=== PATIENT | male | born 1985 | race Caucasian/White ===

== ENCOUNTER 2023-09-15 23:35 | Emergency (ER) | payer OTHER, SELFPAY ==
[2023-09-15 23:37] VITALS: BP 126/78; PULSE 68; TEMP 36.9; O2SAT 94; BMI 32.8
--- NOTE | 2023-09-16 00:04 | ECG_ITS ---
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
[2023-09-16 00:17] VITALS: PULSE 79
[2023-09-16 00:18] VITALS: PULSE 62
[2023-09-16 00:33] LABS: Basophils Absolute Auto 0.1 10^3/uL (0.0-0.1); Basophils Percent Auto 0.6 % (0.2-2.0); Eosinophils Absolute Auto 0.1 10^3/uL (0.0-0.7); Eosinophils Percent Auto 1.4 % (0.9-7.0); Hematocrit 42.2 % (42.0-54.0); Hemoglobin 14.9 g/dL (14.0-18.0); Immature Granulocytes Abs Auto 0.02 10^3/uL (0.00-0.03); Immature Granulocytes Pct Auto 0.3 % (0.0-0.5); Lymphocytes Absolute Auto 3.2 10^3/uL (1.2-3.8); Lymphocytes Percent Auto 40.5 % (20.5-60.0); Mean Corpuscular HGB Conc 35.3 g/dL (29.9-35.2); Mean Corpuscular Hemoglobin 29.2 pg (25.9-34.0); Mean Corpuscular Volume 82.7 fL (80.0-94.0); Mean Platelet Volume 8.4 fL (9.5-13.5); Monocytes Absolute Auto 0.7 10^3/uL (0.3-0.8); Monocytes Percent Auto 8.8 % (1.7-12.0); Neutrophils Absolute Auto 3.9 10^3/uL (1.4-6.5); Neutrophils Percent Auto 48.4 % (43.0-75.0); Platelet Count 310 10^3/uL (150-450); Red Cell Distribution Width 13.3 % (11.0-15.0)
[2023-09-16 00:51] LABS: Alanine Aminotransferase 244 U/L (16-63); Albumin Globulin Ratio 1.1; Albumin Level 3.8 g/dL (3.4-5.0); Alkaline Phosphatase 122 U/L (46-116); Anion Gap 13.4; Aspartate Amino Transferase 65 U/L (15-37); Bilirubin Total 0.3 mg/dL (0.2-1.0); Calcium 8.8 mg/dL (8.5-10.1); Carbon Dioxide 24.2 mmol/L (21.0-32.0); Chloride 104 mmol/L (98-107); Estimated GFR (African America >60 (>=60); Estimated GFR (Non-African Ame >60 (>=60); Ethanol 168 mg/dL; Globulin 3.5 g/dL; Glucose 94 mg/dL (74-106); Potassium 3.6 mmol/L (3.5-5.1); Sodium 138 mmol/L (136-145); Total Protein 7.3 g/dL (6.4-8.2)
--- NOTE | 2023-09-16 00:52 | ED_ITS ---
HPI - Alcohol General Chief Complaint: Alcohol Stated Complaint: MEDICAL CLEARANCE Time Seen by Provider: 09/16/23 00:00 Source: patient Mode of arrival: ambulance History of Present Illness HPI narrative: This 38-year-old male is brought to the emergency department by EMS. The patient has been at [facility] for the past 2 weeks for alcohol detox. He states that earlier today he decided that he just wanted to drink and left the detox facility. He was able to obtain a bottle of vodka and drink the vodka, became intoxicated and wandered into a jail nearby the [facility]. The police and EMS were called at that time and he was brought to the emergency department. He denies any injury. He states he just wanted to drink alcohol today. We did contact the facility and he is not able to return to the facility for 7 days after leaving AGAINST MEDICAL ADVICE or eloping from the program. When he heard this he became tearful and anxious stating he does not know what he is going to do. He is from the [facility]. I asked him if he was told when he checked into the facility that if he left AGAINST MEDICAL ADVICE or eloped if they told him he would not be able to come back for 7 days states that he does not know what they told him at that time because he was intoxicated then as well. Related Data Allergies Allergy/AdvReac Type Severity Reaction Status Date / Time No Known Drug Allergies Allergy Verified 09/15/23 23:37 Review of Systems ROS Status of ROS 10 or more systems reviewed and unremark able except as noted in history and below Exam Narrative Exam Narrative: Vital signs and Nursing Notes reviewed: Patient is afebrile with a normal pulse, normal blood pressure, he is not hypoxic with pulse ox of 94% on room air General: Awake, alert, intoxicated but cooperative male, no respiratory distress HEENT: Normocephalic atraumatic, mucous membranes are moist and pink, eyes are clear, normal conjunctiva, vision is grossly intact Neck: Supple, no meningeal signs, no anterior or posterior cervical lymphadenopathy Chest: Lungs are clear to auscultation with good air entry, there is no wheezing rhonchi or rales appreciated no accessory muscle use, patient is speaking in complete sentences-no chest wall tenderness to palpation CVS: Regular rate and rhythm S1-S2, no murmurs rubs or gallops, pulses are brisk and equal bilaterally ABD: Soft, nondistended, nontender, no rebound guarding or rigidity, bowel sounds are normal, no pulsatile masses appreciated Extremities: Moving all extremities, no lower extremity tenderness or swelling noted, negative Homans' sign, pulses are brisk and equal bilaterally Skin: Normal in appearance without rash,pallor, petechiae or purpura Neuro: No focal deficits, intoxicated without signs of alcohol withdrawal Psych: Tearful, anxious Constitutional Vital Signs, click to edit/add: Last Vital Signs Temp 98.4 F 09/15/23 23:37 Pulse 79 09/16/23 00:17 Resp 14 09/16/23 03:28 BP 126/78 09/15/23 23:37 Pulse Ox 94 L 09/15/23 23:37 O2 Del Method Room Air 09/15/23 23:37 Course Vital Signs Vital signs: Vital Signs Temperature 98.4 F 09/15/23 23:37 Pulse Rate 68 09/15/23 23:37 Respiratory Rate 16 09/15/23 23:37 Blood Pressure 126/78 09/15/23 23:37 Pulse Oximetry 94 L 09/15/23 23:37 Oxygen Delivery Method Room Air 09/15/23 23:37 Temperature 98.4 F 09/15/23 23:37 Pulse Rate 79 09/16/23 00:17 Respiratory Rate 14 09/16/23 03:28 Blood Pressure 126/78 09/15/23 23:37 Pulse Oximetry 94 L 09/15/23 23:37 Oxygen Delivery Method Room Air 09/15/23 23:37 MDM - Alcohol MDM Narrative Medical decision making narrative: This 38-year-old male is brought to the emergency department by EMS after he wandered into a jail adjacent to the [facility] unit where he was receiving outpatient treatment for alcohol use/dependence. The patient has been there for 2 weeks but today decided he wanted to drink and left the facility, obtained vodka, became intoxicated and wandered into a different facility. We did contact the facility where he was staying and were informed that he could not return there for 7 days after leaving AMA or eloping. He is tearful and intoxicated upon arrival. His vital signs are stable. Physical exam is benign. EKG done upon arrival was a sinus rhythm at 62 bpm. CIWA protocol was enacted. Routine labs are ordered and are reviewed. He has a normal white count and hemoglobin. His electrolytes are normal. He does have elevated transaminases likely related to his alcohol use. Alcohol is 168. We contacted a different drug and alcohol treatment center for possible transfer to this facility and will attempt to try to find him another facility for his outpatient detox. His information was faxed to [facility] and they are reviewing it for consideration for transfer. Lab Data Attestation: I reviewed the patient's lab results. Labs: Lab Results 09/16/23 Range/Units 00:20 WBC 8.0 (4.0-11.0) 10^3/uL RBC 5.10 (4.70-6.10) 10^6/uL Hgb 14.9 (14.0-18.0) g/dL Hct 42.2 (42.0-54.0) % MCV 82.7 (80.0-94.0) fL MCH 29.2 (25.9-34.0) pg MCHC 35.3 H (29.9-35.2) g/dL RDW 13.3 (11.0-15.0) % Plt Count 310 (150-450) 10^3/uL MPV 8.4 L (9.5-13.5) fL Neut % (Auto) 48.4 (43.0-75.0) % Lymph % (Auto) 40.5 (20.5-60.0) % [place] % (Auto) 8.8 (1.7-12.0) % Eos % (Auto) 1.4 (0.9-7.0) % Baso % (Auto) 0.6 (0.2-2.0) % Neut # (Auto) 3.9 (1.4-6.5) 10^3/uL Lymph # (Auto) 3.2 (1.2-3.8) 10^3/uL [place] # (Auto) 0.7 (0.3-0.8) 10^3/uL Eos # (Auto) 0.1 (0.0-0.7) 10^3/uL Baso # (Auto) 0.1 (0.0-0.1) 10^3/uL Abs Immat Gran (auto) 0.02 (0.00-0.03) 10^3/uL Imm/Tot Granulo (auto) 0.3 (0.0-0.5) % Sodium 138 (136-145) mmol/L Potassium 3.6 (3.5-5.1) mmol/L Chloride 104 (98-107) mmol/L Carbon Dioxide 24.2 (21.0-32.0) mmol/L Anion Gap 13.4 BUN 11.0 (7.0-18.0) mg/dL Creatinine 1.22 (0.70-1.30) mg/dL Est GFR ( Amer) >60 (>=60) Est GFR (Non-Af Amer) >60 (>=60) BUN/Creatinine Ratio 9.0 Glucose 94 (74-106) mg/dL Calcium 8.8 (8.5-10.1) mg/dL Total Bilirubin 0.3 (0.2-1.0) mg/dL AST 65 H (15-37) U/L ALT 244 H (16-63) U/L Alkaline Phosphatase 122 H (46-116) U/L Total Protein 7.3 (6.4-8.2) g/dL Albumin 3.8 (3.4-5.0) g/dL Globulin 3.5 g/dL Albumin/Globulin Ratio 1.1 Ethanol Quant 168 mg/dL ECG Data Attestation: I personally reviewed and interpreted this ECG as follows: (Sinus rhythm at 62 bpm, normal axis, normal intervals, no acute ST segment elevation or T wave inversion) Discharge Plan Discharge Chief Complaint: Alcohol Clinical Impression: Alcoholic intoxication, Elevated liver enzymes Patient Disposition: Still a Patient Print Language: Cymraes Referrals: Physician,Non-Staff, MD [Primary Care Provider] - 1 week
[2023-09-16 05:19] VITALS: BP 125/72; O2SAT 99
[2023-09-16 05:27] VITALS: PULSE 73; O2SAT 99
[2023-09-16] MEDS: LORAZEPAM 0.5 MG TABLET 1 MG PO (05:54)
--- NOTE | 2023-09-16 07:26 | PC.NURSE ---
Spoke to Angella, at [facility], regarding patient. Angella states if [facility] declines patient, they would be able to assist with placement. Facesheet sent
--- NOTE | 2023-09-16 09:46 | PC.NURSE ---
[facility] called for update. staff states they are waiting for the nursing care attendant to evaluate the case-she arrives to work at 10am
[2023-09-16] MEDS: IBUPROFEN 400 MG TABLET 800 MG PO (10:55)
[2023-09-16] MEDS: BUSPIRONE HCL 15 MG TABLET PO (11:17)
[2023-09-16] MEDS: FLUOXETINE HCL 20 MG CAPSULE 40 MG PO (11:17)
--- NOTE | 2023-09-16 14:47 | PC.NURSE ---
patient accepted by [facility] in [place], . transport scheduled for 7pm
--- NOTE | 2023-09-16 14:51 | ED.ALCOHOL1 ---
HPI - Alcohol General Chief Complaint: Alcohol Stated Complaint: MEDICAL CLEARANCE Time Seen by Provider: 09/16/23 00:00 Source: patient Mode of arrival: ambulance History of Present Illness HPI narrative: The patient was initially seen by Dr. Meier and signed out to me after discussing the case with him thoroughly. Please see his full history and physical exam. MD complaint: Reports alcohol intoxication, alcohol dependence and desires rehab Related Data Allergies Allergy/AdvReac Type Severity Reaction Status Date / Time No Known Drug Allergies Allergy Verified 09/15/23 23:37 Exam Constitutional Vital Signs, click to edit/add: Last Vital Signs Temp 98.4 F 09/15/23 23:37 Pulse 73 09/16/23 05:27 Resp 16 09/16/23 05:27 BP 125/72 09/16/23 05:19 Pulse Ox 99 09/16/23 05:27 O2 Del Method Room Air 09/15/23 23:37 Course Vital Signs Vital signs: Vital Signs Temperature 98.4 F 09/15/23 23:37 Pulse Rate 68 09/15/23 23:37 Respiratory Rate 16 09/15/23 23:37 Blood Pressure 126/78 09/15/23 23:37 Pulse Oximetry 94 L 09/15/23 23:37 Oxygen Delivery Method Room Air 09/15/23 23:37 Temperature 98.4 F 09/15/23 23:37 Pulse Rate 73 09/16/23 05:27 Respiratory Rate 16 09/16/23 05:27 Blood Pressure 125/72 09/16/23 05:19 Pulse Oximetry 99 09/16/23 05:27 Oxygen Delivery Method Room Air 09/15/23 23:37 MDM - Alcohol MDM Narrative Medical decision making narrative: The patient has been observed here and he is awake and alert and ambulatory and has not eaten meals. We have made attempts at getting him into another alcohol treatment center and we appear to have been successful in that regard. He is able to be discharged from the emergency department. Lab Data Labs: Lab Results 09/16/23 Range/Units 00:20 WBC 8.0 (4.0-11.0) 10^3/uL RBC 5.10 (4.70-6.10) 10^6/uL Hgb 14.9 (14.0-18.0) g/dL Hct 42.2 (42.0-54.0) % MCV 82.7 (80.0-94.0) fL MCH 29.2 (25.9-34.0) pg MCHC 35.3 H (29.9-35.2) g/dL RDW 13.3 (11.0-15.0) % Plt Count 310 (150-450) 10^3/uL MPV 8.4 L (9.5-13.5) fL Neut % (Auto) 48.4 (43.0-75.0) % Lymph % (Auto) 40.5 (20.5-60.0) % [place] % (Auto) 8.8 (1.7-12.0) % Eos % (Auto) 1.4 (0.9-7.0) % Baso % (Auto) 0.6 (0.2-2.0) % Neut # (Auto) 3.9 (1.4-6.5) 10^3/uL Lymph # (Auto) 3.2 (1.2-3.8) 10^3/uL [place] # (Auto) 0.7 (0.3-0.8) 10^3/uL Eos # (Auto) 0.1 (0.0-0.7) 10^3/uL Baso # (Auto) 0.1 (0.0-0.1) 10^3/uL Abs Immat Gran (auto) 0.02 (0.00-0.03) 10^3/uL Imm/Tot Granulo (auto) 0.3 (0.0-0.5) % Sodium 138 (136-145) mmol/L Potassium 3.6 (3.5-5.1) mmol/L Chloride 104 (98-107) mmol/L Carbon Dioxide 24.2 (21.0-32.0) mmol/L Anion Gap 13.4 BUN 11.0 (7.0-18.0) mg/dL Creatinine 1.22 (0.70-1.30) mg/dL Est GFR ( Amer) >60 (>=60) Est GFR (Non-Af Amer) >60 (>=60) BUN/Creatinine Ratio 9.0 Glucose 94 (74-106) mg/dL Calcium 8.8 (8.5-10.1) mg/dL Total Bilirubin 0.3 (0.2-1.0) mg/dL AST 65 H (15-37) U/L ALT 244 H (16-63) U/L Alkaline Phosphatase 122 H (46-116) U/L Total Protein 7.3 (6.4-8.2) g/dL Albumin 3.8 (3.4-5.0) g/dL Globulin 3.5 g/dL Albumin/Globulin Ratio 1.1 Ethanol Quant 168 mg/dL Discharge Plan Discharge Stand Alone Forms: Portal Instructions Chief Complaint: Alcohol Clinical Impression: Alcoholic intoxication, Elevated liver enzymes Patient Disposition: Home, Self-Care Time of Disposition Decision: 14:50 Condition: Good Mode of Transportation: Private Vehicle Print Language: Frisian Instructions: Alcohol Intoxication (ED) Referrals: Physician,Non-Staff, MD [Primary Care Provider] - 1 week
== END 2023-09-16 15:12 | disposition home or self-care (01) ==
PROVIDERS: Emergency Medicine; Emergency Provider Emergency Medicine
DX: F10.129 Alcohol abuse with intoxication, unspecified (principal); Y90.6 Blood alcohol level of 120-199 mg/100 ml; R74.8 Abnormal levels of other serum enzymes
CPT/HCPCS: 36415; 80053; 80320; 85025; 93005; 99284

== ENCOUNTER 2023-09-18 00:04 | Emergency (ER) | payer OTHER, SELFPAY ==
[2023-09-18 00:06] VITALS: BP 117/77
--- NOTE | 2023-09-18 00:15 | ED_ITS ---
HPI - Alcohol General Chief Complaint: Psychiatric Symptoms Stated Complaint: suicidal Time Seen by Provider: 09/18/23 00:14 History of Present Illness HPI narrative: patient is an alcoholic. Was reportedly suppose to go to a detox facility in [place] . He was a legends but decided to drink alcohol. He is now brought here by Police and Squad. Police state he walked up to them and complained of chest pain. Squad states he told them he wanted to . No thoughts of harming anyone else. Now that he is here he is awake and making eye contact but not communicating verbally. Will look at you when questions are ask but will not make any attempt to answer. Related Data Allergies Allergy/AdvReac Type Severity Reaction Status Date / Time No Known Drug Allergies Allergy Verified 09/15/23 23:37 Review of Systems ROS Status of ROS unobtainable due to mental status Exam Constitutional Vital Signs, click to edit/add: Last Vital Signs Temp 98.1 F 09/18/23 00:32 Pulse 58 L 09/18/23 00:32 Resp 18 09/18/23 00:32 BP 117/77 09/18/23 00:32 Pulse Ox 94 L 09/18/23 00:32 O2 Del Method Room Air 09/18/23 00:32 Common normals: no apparent distress, average body habitus, healthy appearing, alert and well nourished Eye Common normals: EOMs intact bilaterally and conjunctivae normal Respiratory Common normals: normal respiratory effort, no retractions, no use of accessory muscles and clear to auscultation bilaterally Cardio Common normals: regular rate, regular rhythm, S1 normal heart sound and S2 normal heart sound GI Common normals: Normal to inspection, nondistended, normoactive bowel sounds present, soft to palpation and non-tender Extremity Common normals: normal to inspection Neuro Sensorium/orientation: awake and alert Course Vital Signs Vital signs: Vital Signs Temperature 98.1 F 09/18/23 00:32 Pulse Rate 58 L 09/18/23 00:32 Respiratory Rate 18 09/18/23 00:32 Blood Pressure 117/77 09/18/23 00:32 Pulse Oximetry 94 L 09/18/23 00:32 Oxygen Delivery Method Room Air 09/18/23 00:32 Temperature 98.1 F 09/18/23 00:32 Pulse Rate 58 L 09/18/23 00:32 Respiratory Rate 18 09/18/23 00:32 Blood Pressure 117/77 09/18/23 00:32 Pulse Oximetry 94 L 09/18/23 00:32 Oxygen Delivery Method Room Air 09/18/23 00:32 MDM - Alcohol MDM Narrative Medical decision making narrative: patient arrived via police and Squad. Per [facility] personnel he reported that he wanted to . Police states he told them he had chest pain. On arrival to the department he was awake and making eye contact but did not speak . Later he did start talking to nursing and informed nursing he wanted to kill himself. Lab demonstrated elevated LFTs related to his history of alcohol abuse and ETOH level 212. troponin neg. Cxray without acute findings. Patient has remained cooperative. No signs of alcohol withdrawal. We are waiting until 8AM to have mental health talk to him. Care transferred to Dr Hurd at change of shift Lab Data Labs: Lab Results 09/18/23 09/18/23 Range/Units 01:00 03:32 WBC 7.2 (4.0-11.0) 10^3/uL RBC 5.36 (4.70-6.10) 10^6/uL Hgb 15.6 (14.0-18.0) g/dL Hct 44.6 (42.0-54.0) % MCV 83.2 (80.0-94.0) fL MCH 29.1 (25.9-34.0) pg MCHC 35.0 (29.9-35.2) g/dL RDW 13.2 (11.0-15.0) % Plt Count 321 (150-450) 10^3/uL MPV 8.3 L (9.5-13.5) fL Neut % (Auto) 48.3 (43.0-75.0) % Lymph % (Auto) 41.0 (20.5-60.0) % Person % (Auto) 8.0 (1.7-12.0) % Eos % (Auto) 1.8 (0.9-7.0) % Baso % (Auto) 0.6 (0.2-2.0) % Neut # (Auto) 3.5 (1.4-6.5) 10^3/uL Lymph # (Auto) 3.0 (1.2-3.8) 10^3/uL Person # (Auto) 0.6 (0.3-0.8) 10^3/uL Eos # (Auto) 0.1 (0.0-0.7) 10^3/uL Baso # (Auto) 0.0 (0.0-0.1) 10^3/uL Abs Immat Gran (auto) 0.02 (0.00-0.03) 10^3/uL Imm/Tot Granulo (auto) 0.3 (0.0-0.5) % Sodium 137 (136-145) mmol/L Potassium 3.9 (3.5-5.1) mmol/L Chloride 104 (98-107) mmol/L Carbon Dioxide 23.7 (21.0-32.0) mmol/L Anion Gap 13.2 BUN 12.0 (7.0-18.0) mg/dL Creatinine 1.16 (0.70-1.30) mg/dL Est GFR ( Amer) >60 (>=60) Est GFR (Non-Af Amer) >60 (>=60) BUN/Creatinine Ratio 10.3 Glucose 120 H (74-106) mg/dL Calcium 8.7 (8.5-10.1) mg/dL Total Bilirubin 0.4 (0.2-1.0) mg/dL AST 51 H (15-37) U/L ALT 175 H (16-63) U/L Alkaline Phosphatase 136 H (46-116) U/L Troponin I High Sens <4.0 L (4.0-76.1) pg/mL Total Protein 7.7 (6.4-8.2) g/dL Albumin 3.8 (3.4-5.0) g/dL Globulin 3.9 g/dL Albumin/Globulin Ratio 1.0 Salicylates <2.8 (<=19.9) mg/dL Urine Opiates Screen Negative (NEGATIVE) Ur Buprenorphine Scrn Negative (NEGATIVE) Ur Oxycodone Screen Negative (NEGATIVE) Urine Methadone Screen Negative (NEGATIVE) Acetaminophen <2.0 L (10.0-30.0) ug/mL Ur Barbiturates Screen Negative (NEGATIVE) U Tricyclic Antidepress Negative (NEGATIVE) Ur Phencyclidine Scrn Negative (NEGATIVE) Ur Amphetamines Screen Negative (NEGATIVE) U Methamphetamines Scrn Negative (NEGATIVE) U Benzodiazepines Scrn Negative (NEGATIVE) Urine Cocaine Screen Negative (NEGATIVE) U Cannabinoids Screen Negative (NEGATIVE) Ethanol Quant 212 mg/dL Imaging Data Chest x-ray: Radiologist's impression: ITS Impressions Chest X-Ray 09/18/23 00:19 Impression: No acute cardiopulmonary process. Electronically authenticated by: UMANG DAVENPORT Date: 09/18/2023 01:00 Discharge Plan Discharge Chief Complaint: Psychiatric Symptoms Clinical Impression: Alcoholic intoxication, Suicidal ideation Patient Disposition: Still a Patient Print Language: Andorran Referrals: Physician,Non-Staff, MD [Primary Care Provider] - 1 week
--- OUTSIDE RECORDS SUMMARY | 2023-09-18 00:18 | XMS_ITS | CCD ---
Author Organization [facility] Care Team Providers Care Baker Paint Name Role Phone No, Physician Primary Care Provider Unavailabl e NO, PHYSICIAN Primary Care Unavailable KAYLA FERNANDEZ Attending Unava ilable Unavailable Primary Care Provider UnavailMARLENA Jackson Attending Unavailable NO, PHYSICIAN Primary Care Unavailable JUAN MIGUEL ACSTILLO Admitting Unavailable NO, PHYSICIAN Primary Care Unavailable HALINA BATISTA Attending Unavail able NO, PHYSICIAN Primary Care Unavailable Physician, No Pcp Primary Care Provider Unavaila ble Physician, No Pcp Primary Care Provider Unavaila ble PHYSICIAN, NO PCP Primary Care Unavailable SANDRA TRIVEDI Attending Unavailable PHYSICIAN, NO PCP Primary Care Unavailable OC JACOBSON Attending Unavailable PHYSICIAN, NO PCP Primary Care Unavailable PANCHO DEL RIO FERMIN Consulting Unavailable EVA LACY Attending Unavailable PANCHO DEL RIO FREMIN Consulting Unavailable PANCHO DEL RIO FERMIN Consulting Unavailable PHYSICIAN, NO PCP Primary Care Unavailable KAE DAUGHERTY Attending Unavailable PHYSICIAN, NO PCP Primary Care Unavailable PANCHO [place] [facility]ERMIN Consulting Unavailable ANTHONY THURMAN Attending Unavailable PANCHO DEL R[place] FERMIN Consulting Unavailable PANCHO DEL RIO FERMIN Consulting Unavailable Physician, No Pcp Primary Care Provider Unavaila ble System, Provider Not In Primary Care Provider Un available SHERYL MAIN Attending Unavailable SHANNAN HANSEN Referring Unavailable MACK, MAN Admitting Unavailable LEONIDAS YA Attending Unavailable SHANNAN HANSEN Attending Unavailable SYSTEM, PROVIDER NOT IN Primary Care Unavaila CARITO Carrillo Attending Unavailable CARITO VILLEDA Attending Unavailable NO, PHYSICIAN Primary Care Unavailable WILY SIMPSON Attending Unavaila ble JANIS OLGUIN Attending Unavailable NO, PHYSICIAN Primary Care Unavailable OC WAITE Attending Unavailable NO, PHYSICIAN Primary Care Unavailable OC WAITE Attending Unavailable NO, PHYSICIAN Primary Care Unavailable LEONORA LALA Attending Unavailable NO, PHYSICIAN Primary Care Unavailable NO, PHYSICIAN Primary Care Unavailable RENNY LOZOYA Attending Unavailable NO, PHYSICIAN Primary Care Unavailable JUAN MIGUEL AL Attending Unavailable PHYSICIAN, NO PCP Primary Care Unavailable ASHLEY SOLORIO Attending Unavailable PHYSICIAN, NO PCP Primary Care Unavailable RE ONEL~[id number], RE ONEL~[phone] RE At tending Unavailable PHYSICIAN, NO PCP Primary Care Unavailable BALBIR HYATT Attending Unavailable PHYSICIAN, NO PCP Primary Care Unavailable TRACEY VELOZ Attending Unavailable Unavailable Primary Care Provider Unavailabl e Self Referred, . Primary Care Provider Unavailab XIOMARA Aguilar Attending Unavailable No Family, Provider Primary Care Provider Unashahid Lamb MD, [facility] Primary Care Provider [id number] KARELY CRAIG Attending Unavaila Kayla Concepcion Referring Unavailable Kayla Simon Attending Unavailable No Family, Provider Primary Care Provider Unashahid Lamb MD, [facility] Primary Care Provider [id number] Jourdan Beckford Attending Unavailable JOURDAN TRINH Attending Unavailable Karely Craig Attending Unavailable LETY ARCE Attending Unavailable MEDEPALLI XAVIER~[id number], MED EPALLI XAVIER~[id number] MEDEPALLI Attending Unavailable RENNY ANTHONY Attending Unavailable JAE GARCIA Attending Unavailable Karely Craig Attending Unavailable Ashley Fajardo Attending Unavailable CHAPIS BARRON Attending Unavailable ABDULKADIR VERMA Attending Unavailable GEMA RAHMAN Admitting Unavailable NATHALIE GONSALES Consulting Unavailabl e CHAPIS BARRON Attending Unavailable ASHLEY BERNABE Attending Unavailable GEMA ORTEGA Attending Unavailable SERA BARRERA Attending Unavailable JAYLON KWAN Attending Unavailable ILDA NATHALIE GERD Consulting Unavailabl e KALIN CALDERON Admitting Unavailable LILIAM GAVIRIA Attending Unavailable URIAH SAENZ Attending Unavailable REYMUNDO AMBRIZ Attending Unavailable GEMA LIMON Attending Unavailable LEXI LIRA Attending Unavailable CONOR YOUNG Attending Unavailable SHELLEY BELTRÁN Attending Unavailable LISSETTE BOWERS Attending Unavailable JENNIFER SUGGS Attending UnavailJOURDAN Rock Attending Unavailable EVELYN SANCHEZ Attending Unavailable BALDO RIOS Attending Unavailable GOSIA LARSON DO Attending Unavailabl e JERRY PHILLIPS Attending Unavailable TOM FIGUEROA Attending Unavailable GOSIA LARSON DO Attending Unavailabl e GOSIA LARSON DO Attending Unavailabl e ALAN, JERRY Attending Unavailable HANIFF, IMRAAN Attending Unavailable HANIFF, IMRAAN Attending Unavailable TOM FIGUEROA Attending Unavailable TOM FIGUEROA Attending Unavailable HANIFF, IMRAAN Attending Unavailable SHERYL MCGRAW Attending Unavailable No Family, Physician Primary Care Unavailable No Family, Physician Primary Care Unavailable LEYLA DUONG Attending Unavailable No Family, Physician Primary Care Unavailable LEYLA DUONG Attending Unavailable No Family, Physician Primary Care Unavailable [place] AGUILERA Referring Unavailable No Family, Physician Primary Care Unavailable [place] AGUILERA Referring Unavailable Unavailable Primary Care Provider UnavailKARELY Carmona Attending Unavailable NO, PHYSICIAN Primary Care Unavailable NO, PHYSICIAN Primary Care Unavailable ESPERANZA BETTS Attending Unavailab le NO, PHYSICIAN Primary Care Unavailable KAYLA FERNANDEZ Attending Unava ilable VIRGINIA GALEANO Attending Unavailable NO, PHYSICIAN Primary Care Unavailable NO, PHYSICIAN Primary Care Unavailable ERICK TRIVEDI Attending Unavailable SYSTEM, PROVIDER NOT IN Primary Care Unavaila ble CONSULT, ED PSYCHIATRY TEAM Consulting Unav ailable KAYLA WANG Attending Unavaila ble No Family, Physician Primary Care Unavailable HANG MELARA MD Referring Unavailable No Family, Physician Primary Care Unavailable HANG MELARA MD Referring Unavailable No Family, Physician Primary Care Unavailable SERA GONZALEZ Referring Unavailable SARA HILL Referring Unavailable No Family, Physician Primary Care Unavailable No Family, Physician Primary Care Unavailable LEYLA DUONG Attending Unavailable No Family, Physician Primary Care Unavailable LEYLA DUONG Attending Unavailable No Family, Physician Primary Care Unavailable ERIN GIBSON Attending Unavailable No Family, Physician Primary Care Unavailable RENEE HEDRICK Attending Unavailable No Family, Physician Primary Care Unavailable MILA KAMARA Attending Unavaila ble LEYLA DUONG Attending Unavailable No Family, Physician Primary Care Unavailable LALO INGRAM Consulting Unavailable No Family, Physician Primary Care Unavailable NAINA MCGILL Attending Unavailable KARELY FAN Admitting Unavailable No Family, Physician Primary Care Unavailable MICHAEL FISHER M Referring Unavailable No Family, Physician Primary Care Unavailable SARA HILL Referring Unavailable No Family, Physician Primary Care Unavailable PHILLIPMICHAEL SANDERS M Referring Unavailable Unavailable Primary Care Provider Unavailabl e No Family, Physician Primary Care Unavailable KYLEDAJUAN CARLOSAH, LIZETTE K Attending Unavailable No Family, Physician Primary Care Unavailable JADALLAH, LIZETTE K Referring Unavailable No Family, Physician Primary Care Unavailable GARDUNO ANNE MARIE C Referring Unavailable No Family, Physician Primary Care Unavailable GARDUNO, ANNE MARIE C Referring Unavailable No Family, Physician Primary Care Unavailable JADALLAH, LIZETTE K Referring Unavailable No Family, Physician Primary Care Unavailable JADALLAH, LIZETTE K Attending Unavailable JADALLAH, LIZETTE K Referring Unavailable No Family, Physician Primary Care Unavailable JADALLAH, LIZETTE K Referring Unavailable No Family, Physician Primary Care Unavailable JADALLAH, LIZETTE K Referring Unavailable RADHA SMITH Admitting Unavailable RADHA SMITH Consulting Unavailable No Family, Physician Primary Care Unavailable LUCIANA WHITFIELD MD Attending Unavailab LUCHO Esteban MD Attending Unavailable No Family, Physician Primary Care Unavailable No Family, Physician Primary Care Unavailable YADY CASTAÑEDA DO Attending Unavail able No Family, Physician Primary Care Unavailable JADALLAH, LIZETTE K Attending Unavailable JADAJUAN CARLOSAH, LIZETTE K Attending Unavailable No Family, Physician Primary Care Unavailable BENJAMIN HURT Consulting Unavailable No Family, Physician Primary Care Unavailable JADALLAH, LIZETTE K Attending Unavailable No Family, Physician Primary Care Unavailable URIAH ELISE Attending Unavailable ASHRAF, RYLNA Admitting Unavailable ASHRAF, RYLAN Attending Unavailable ASHRAF, RYLAN Consulting Unavailable Allergies Allergy Classification Reported Allergen(s) Allergy Type Date of Onset Reaction(s) Facility (8 sources) *Seasonal Propensity to adverse reactions to substance 2 Runny Nose [facility] (2 sources) Tuberculin Tests Propensity to adverse reactions to drug 3 Rash [facility] (2 sources) Ragweed pollen; Translations: [RAGWEED POLLEN] Propensity to adverse reactions to drug (disorder) 2 [facility] (2 sources) TUBERCULIN PPD; Translations: [TUBERCULIN PPD] Propensity to adverse reactions to drug (disorder) 2 [facility] (1 source) Environmental allergy Propensity to adverse reactions to substance 3 [facility] (1 source) NOT ON FILE; Translations: [NOT ON FILE] Propensity to adverse reactions to drug (disorder) [facility] Medications Current Medications Medication Drug Class(es) Dates Sig (Normalized) Sig (Original) Acetaminophen (10 sources) Start: 02-12-2023 take 1 tablet by mouth every four hours as needed acetaminophen (TYLENOL) tablet 650 mg Start: 01-08-2023 End: 01-08-2023 acetaminophen (TYLENOL EXTRA STR) tablet 1,000 mg Start: 01-05-2023 take 1 tablet by elvia th every six hours as needed acetaminophen (TYLENOL) tablet 650 mg Start: 07-11-2022 acetaminophen (TYLENOL) tablet 1,000 mg Start: 05-13-2022 End: 05-13-2022 Acetaminophen (TYLENOL) tabl et 975 mg Start: 08-20-2021 End: 08-23-2021 take 1 tablet by mouth every six hours as needed acetaminophen (TYLENOL) tablet 650 mg Start: 04-02-2021 End: 04-12-2021 take 2 tablets by mouth every four hours as needed acetaminophen (TYLENOL) 325 MG tablet Take 2 (two) tablets (650 mg total) by mouth every 4 (four) hours as needed . 30 tablet 0 04/02/2021 04/12/2021 Active Start: 04-02-2021 End: 04-02-2021 take 1 tablet by mouth every four hours as needed for pain and headache acetaminophen (TYLENOL) tablet 650 mg Start: 03-31-2021 End: 04-01-2021 take 1 tablet by mouth every six hours acetaminophen (TYLENOL) tablet 975 mg aluminum hydroxide 40 mg/ml / magnesium hydroxide 40 mg/ml / simethicone 4 mg/ml oral suspension (4 sources) Start: 02-12-2023 alum & mag hyd roxide with simethicone (MAALOX,MYLANTA) oral SUSPension 30 mL Start: 01-05-2023 take 30 mL by mouth every four hours as needed alum & mag hydroxide with simethicone (MAALOX,MYLANTA) oral SUSPension 30 mL Start: 05-19-2022 End: 05-19-2022 aluminum-magnesium hydroxide-simethicone (MAALOX) 200-200-20 mg/5 mL suspension 30 mL Start: 04-25-2021 End: 05-01-2021 take 30 mL by mouth every six hours as needed 30 mL, Oral, EVERY 6 HOURS NEEDED, Starting on Wed04/25/21 at 2314, Until Zahraa 05/01/21 at 1251, Indigestion Per 5 mL is equivalent to: (Alum-Mag Hydroxide 200-225 mg and Simethicone 20 mg) and (Alum-Mag Hydroxide 200-200 mg and Simethicone 20 mg) Ascorbic Acid (2 sources) Vitamin C take 1 tablet by elvia th once daily ascorbic acid (VITAMIN C ORAL) Take 1 tablet by mouth daily . 0 Active take 1 tablet by mouth once andrew y ascorbic acid (VITAMIN C ORAL) Take 1 tablet by mouth daily . 0 24 hr buPROPion hydrochloride 150 mg extended release oral tablet (16 sources) Aminoketone Start: 02-16-2023 take 2 tablets by mouth once daily in the morning buPROPion (WELLBUTRIN XL) 150 mg XL-tablet 24 Hr Take 2 Tab by mouth daily BUPROPION XL 150 MG TABLET, EXTENDED RELEASE 24 HR Dispensed: 12/28/2022 12:00 AM Unit strength: 150 mg Days supply: 30 Quantity: 30 Tab Pharmacy: None Authorizing provider: None Received from: [email or web address] (Claim History, Acute Care) Brand or Generic: Generic 0 02/16/2023 Active Start: 02-14-2023 buPROPion (WEL LBUTRIN XL) XL-tablet 300 mg Start: 12-28-2022 End: 02-16-2023 take 1 tablet by mouth once daily in the morning buPROPion (WELLBUTRIN XL) 150 mg XL-tablet 24 Hr Take 1 Tab by mouth daily BUPROPION XL 150 MG TABLET, EXTENDED RELEASE 24 HR Dispensed: 12/28/2022 12:00 AM Unit strength: 150 mg Days supply: 30 Quantity: 30 Tab Pharmacy: None Authorizing provider: None Received from: [email or web address] (Claim History, Acute Care) Brand or Generic: Generic 0 01/08/2023 02/16/2023 Discontinued buPROPion HCl (W ELLBUTRIN PO) Take by mouth 0 Active cetirizine hydrochloride 5 mg oral tablet (8 sources) Histamine-1 Receptor Antagonist Start: 02-15-2023 cetirizine (zyrTEC) tablet 10 mg Start: 01-05-2023 take 10 mg by mouth once daily 10 mg, Oral, DAILY, First dose on Wed01/05/23 at 1400, Until Discontinued Start: 06-08-2022 End: 06-08-2022 Cetirizine (ZyrTEC) tablet 5 mg Start: 05-11-2022 take 1 tablet by elvia th once daily cetirizine (ZyrTEC) 10 mg tablet Take 1 tablet (10 mg total) by mouth 1 (one) time each day. 0 05/11/2022 Active take 1 tablet by elvia th once daily as needed cetirizine (ZYRTEC) 10 MG tablet Take 10 mg by mouth daily as needed for allergies . 0 Active cholecalciferol, vitamin D3, (VITAMIN D3 ORAL) (2 sources) take 1 capsule by mouth once daily cholecalciferol, vitamin D3, (VITAMIN D3 ORAL) Take 1 capsule by mouth daily . 0 Active take 1 capsule by mouth once vik ly cholecalciferol, vitamin D3, (VITAMIN D3 ORAL) Take 1 capsule by mouth daily . 0 Config Med, NOT VALID FOR CONTROLLED SUBSTANCES, (20 sources) Start: 01-07-2023 Config Med, NO T VALID FOR CONTROLLED SUBSTANCES, You will need to get a release to return to work from your family provider 1 Each 0 01/07/2023 Active Start: 01-07-2023 Config Med, NO T VALID FOR CONTROLLED SUBSTANCES, To whom it may concern, This patient was hospitalized 01/05-01/07/2023. Will need to have a separate release from his family provider to return to work. 1 Each 0 01/07/2023 Active Start: 01-07-2023 Config Med, NO T VALID FOR CONTROLLED SUBSTANCES, It is recommended that when you leave the hospital that you go to walk-in [facility], [facility] or [facility] for intake and placement 0 01/07/2023 Active Start: 01-07-2023 Config Med, NO T VALID FOR CONTROLLED SUBSTANCES, You have elevated ALT liver enzyme and elevated eosinophil percentage on your blood work. This needs to be followed as outpatient. Advise that you refrain from alcohol and complete blood work ordered and follow-up with your primary care provider to go over results. The cause for these elevations could be from your alcohol use. 0 01/07/2023 Active diazePAM (11 sources) Benzodiazepine Start: 02-15-2023 diazePAM (LOLITA UM) tablet 10 mg Start: 02-12-2023 End: 02-15-2023 diazePAM (VALIUM) tablet 10 mg Start: 02-12-2023 End: 02-12-2023 diazepam (VALIUM) tablet 10 mg Start: 09-15-2022 End: 01-07-2023 diazePAM (VALIUM) 5 mg table t diazePAM (VALIUM) inj syringe 10 mg (1 source) Start: 01-05-2023 diazePAM (LOLITA UM) inj syringe 10 mg doxycycline monohydrate 100 mg oral capsule (5 sources) Tetracycline- class Drug Start: 01-06-2023 End: 01-11-2023 take 1 capsule by mouth every twelve hours doxycycline MONOhydrate (MONODOX) 100 mg capsule Indications: Suspect bronchitis Take 1 Cap by mouth every 12 hours for 4 days 8 Cap 0 01/07/2023 01/11/2023 Active Start: 04-01-2021 End: 04-02-2021 doxycycline (VIBRAMYCIN) ora l solid 100 mg 0.4 ml enoxaparin sodium 100 mg/ml prefilled syringe (6 sources) Low Molecular Weight Heparin Start: 02-12-2023 enoxaparin (LOVENOX) syringe 40 mg Start: 01-05-2023 enoxaparin (LO VENOX) syringe 40 mg Start: 08-21-2021 End: 08-23-2021 Enoxaparin Sodium (LOVENOX) injection 40 mg Start: 03-31-2021 End: 04-02-2021 enoxaparin (LOVENOX) syringe 30 mg 1 ml hydrALAZINE hydrochloride 20 mg/ml injection (1 source) Arteriolar Vasodilator Start: 02-15-2023 take 5 mg intravenously every six hours as needed hydrALAZINE (APRESOLINE) injection solution 5 mg hydrOXYzine hydrochloride 25 mg oral tablet (20 sources) Antihistamine Start: 02-15-2023 hydrOXYzine HCL (ATARAX) tablet 25 mg Start: 01-08-2023 End: 01-08-2023 hydrOXYzine HCL (ATARAX) tab let 25 mg Start: 01-06-2023 take 1 tablet by elvia th every six hours as needed hydrOXYzine HCL (ATARAX) tablet 50 mg Start: 10-23-2022 End: 01-07-2023 take 1 capsule by mouth at bedtime as needed hydrOXYzine pamoate (VISTARIL) 50 mg capsule Take 1 Cap by mouth at bedtime as needed 0 10/23/2022 01/07/2023 Discontinued Start: 09-08-2022 End: 01-07-2023 take 1 tablet by mouth every six hours as needed hydrOXYzine HCL (ATARAX) 50 mg tablet Take 1 Tab by mouth every 6 hours as needed HYDROXYZINE PAMOATE 50 MG CAPSULE Dispensed: 12/21/2022 12:00 AM Unit strength: 50 mg Unit form: Capsule Days supply: 15 Quantity: 90 Cap Pharmacy: None Authorizing provider: None Received from: [facility] (Claim History, Acute Care) Brand or Generic: Generic 0 01/07/2023 Active Start: 06-07-2022 End: 06-08-2022 hydrOXYzine HCl (ATARAX) tab let 25 mg Start: 08-22-2021 End: 08-23-2021 take 1 tablet by mouth every six hours as needed hydrOXYzine HCl (ATARAX) tablet 25 mg Start: 04-25-2021 End: 05-01-2021 take 1 tablet by mouth every six hours as needed 25 mg, Oral, EVERY 6 HOURS NEEDED, Starting on Wed04/25/21 at 2314, Until Zahraa 05/01/21 at 1251, Anxiety, Itching, FIRST line ibuprofen 400 mg oral tablet (6 sources) Nonsteroidal Anti-inflammatory Drug Start: 07-11-2022 ibuprofen (ADVIL;MOTRIN) tablet 400 mg Start: 08-20-2021 End: 08-23-2021 take 1 tablet by mouth every six hours as needed ibuprofen (MOTRIN) tablet 600 mg Start: 04-02-2021 End: 05-02-2021 take 1 tablet by mouth every six hours as needed 400 mg, Oral, EVERY 6 HOURS NEEDED, Starting on Wed04/25/21 at 2314, Until Zahraa 05/01/21 at 1251, Other, Second-line for moderate or severe pain Give with food Ketotifen (1 source) Histamine-1 Receptor Inhibitor End: 07-01-2023 take 1 drop(s) into the eye(s) twice daily as needed KETOTIFEN FUMARATE OP Place 1 drop into both eyes 2 times daily as needed (allergy) 0 07/01/2023 Discontinued (LIST CLEANUP) lidocaine 0.04 mg/mg medicated patch (3 sources) Antiarrhythmic, Amide Local Anesthetic Start: 03-31-2021 End: 05-03-2021 apply 1 dose transdermal route once daily, then apply 1 dose transdermal route every twelve hours lidocaine 4 % patch Place 1 (one) patch on the skin daily Remove & Discard patch within 12 hours or as directed by MD Start: 04/03/21. 30 patch 0 04/03/2021 05/03/2021 Active loratadine 10 mg oral tablet (20 sources) Start: 12-03-2022 End: 01-14-2023 take 1 tablet by mouth once daily loratadine (CLARITIN) 10 mg tablet Take 1 Tab by mouth daily for 7 days Obtain refills from primary care provider 7 Tab 0 01/07/2023 01/14/2023 Active Start: 04-29-2021 End: 06-27-2022 take 1 tablet by mouth once daily loratadine (CLARITIN) 10 mg tablet Indications: Seasonal allergies Take 1 tablet (10 mg total) by mouth 1 (one) time each day. 30 each 0 05/28/2022 06/27/2022 Active Start: 04-01-2021 End: 07-01-2023 take 10 mg by mouth once daily 10 mg, Oral, Daily, Fir st dose on Wed04/01/21 at 0900 loratadine (CLAR ITIN PO) Take by mouth. 0 Active LORazepam (ATIVAN) injection solution 2 mg (1 source) Start: 09-12-2022 LORazepam (ATI VAN) injection solution 2 mg melatonin 5 mg oral tablet (18 sources) Start: 12-31-2022 End: 01-07-2023 take 1 tablet by mouth once at bedtime Melatonin (MELATONIN) 5 mg Tablet tablet Take 1 Tab by mouth at bedtime MELATONIN 5 MG TABLET Dispensed: 12/31/2022 12:00 AM Unit strength: 5 mg Unit form: Tablet Days supply: 15 Quantity: 30 Tab Pharmacy: None Authorizing provider: None Received from: [facility] (Claim History, Acute Care) Brand or Generic: Generic 0 01/07/2023 Active Start: 05-14-2022 End: 08-26-2022 take 1-2 tablets by mouth at bedtime melatonin 5 mg tablet Indications: Primary insomnia Take 1-2 tablets (5-10 mg total) by mouth at bedtime. 60 tablet 2 05/28/2022 08/26/2022 Active Start: 08-20-2021 End: 08-23-2021 melatonin tablet 6 mg Start: 04-25-2021 End: 05-01-2021 take 3 mg by mouth once daily at bedtime as needed 3 mg, Oral, DAILY AT BEDTIME NEEDED, Starting on 04/25/21 at 2314, Until Zahraa 05/01/21 at 1251, Insomnia, First line for insomnia Start: 03-31-2021 End: 05-02-2021 take 1 tablet by mouth once daily melatonin 5 mg Tab Take 1 (one) tablet (5 mg total) by mouth nightly . 30 tablet 0 04/02/2021 05/02/2021 Active multivitamin (THERAGRAN) per tablet (2 sources) take 1 tablet by elvia th once daily multivitamin (THERAGRAN) per tablet Take 1 tablet by mouth daily . 0 Active take 1 tablet by mouth once andrew y multivitamin (THERAGRAN) per tablet Take 1 tablet by mouth daily . 0 multivitamin tablet (4 sources) Start: 05-28-2022 End: 06-27-2022 take 1 tablet by mouth once daily multivitamin tablet Take 1 tablet by mouth 1 (one) time each day. 30 tablet 0 05/28/2022 06/27/2022 Active Start: 04-20-2022 End: 05-28-2022 take 1 tablet by mouth once daily multivitamin tablet Take 1 tablet by mouth 1 (one) time each day. 0 04/20/2022 05/28/2022 Discontinued (Reorder) Start: 04-20-2022 take 1 tablet by elvia th once daily multivitamin tablet Take 1 tablet by mouth 1 (one) time each day. 0 04/20/2022 Active multivitamin w/ minerals tablet (8 sources) Start: 04-30-2021 take 1 tablet by mouth once daily multivitamin w/ minerals tablet Indications: Uncomplicated alcohol dependence Take 1 tablet by mouth daily. 30 tablet 0 04/30/2021 Active naloxone hydrochloride 40 mg/ml nasal spray (2 sources) Opioid Antagonist Start: 04-02-2021 naloxone (NARCAN) 4 mg/actuation [place] Administer 1 spray into one nostril for known or suspected opioid overdose. If patient worsens or does not respond, may repeat in 2-3 minutes. . 2 each 0 04/02/2021 Active naltrexone 380 mg injection (4 sources) Opioid Antagonist Start: 06-08-2022 End: 07-08-2022 inject 4 mL by intramuscular injection every 30 days naltrexone (Vivitrol) 380 MG Recon Susp injection Indications: Alcohol use disorder, severe, dependence Inject 4 mL intramuscularly every 30 days. 1 Each 0 06/08/2022 07/08/2022 Active Start: 06-08-2022 End: 06-08-2022 naltrexone (VIVITROL) IM inj ection 380 mg Start: 05-01-2021 End: 05-01-2021 naltrexone (VIVITROL) IM inj ection 380 mg Start: 04-28-2021 End: 04-30-2021 naltrexone (DEPADE) tablet 5 0 mg 24 hr nicotine 0.875 mg/hr transdermal system (16 sources) Cholinergic Nicotinic Agonist Start: 06-29-2023 nicotine (NICODERM CQ) 21 MG/24HR 1 patch Start: 02-14-2023 nicotine (HABI TROL) 14 mg/24 hr transdermal patch 1 Patch Start: 01-08-2023 End: 02-07-2023 apply 1 dose transdermal route once daily nicotine (HABITROL) 14 mg/24 hr transdermal patch 1 Patch by Transdermal route daily for 30 days 30 Patch 0 01/08/2023 02/07/2023 Start: 01-06-2023 nicotine (HABI TROL) 14 mg/24 hr transdermal patch 1 Patch Start: 01-05-2023 End: 01-06-2023 nicotine (HABITROL) 21 mg/24 hr transdermal patch 1 Patch Start: 06-07-2022 End: 06-08-2022 Nicotine (NICORETTE) gum 4 m g Start: 05-28-2022 End: 06-27-2022 apply 1 dose transdermal route once daily nicotine (NICODERM CQ) 14 mg/24 hr Indications: Tobacco dependence Place 1 patch on the skin 1 (one) time each day at the same time. 30 each 0 05/28/2022 06/27/2022 Active Start: 08-21-2021 End: 08-23-2021 nicotine (NICODERM CQ) 21 MG /24HR patch 1 patch Start: 04-29-2021 End: 05-01-2021 nicotine (NICODERM CQ) 7 MG/ 24HR patch 1 patch Start: 04-25-2021 End: 05-01-2021 take 4 mg by mouth every two hours as needed 4 mg, Oral, EVERY 2 HOURS NEEDED, Starting on Wed04/25/21 at 2314, Until Zahraa 05/01/21 at 1251, Smoking cessation Patient may self-administer. Start: 03-31-2021 End: 04-02-2021 nicotine (NICODERM CQ) 14 mg /24 hr 1 patch omeprazole 20 mg delayed release oral capsule (7 sources) Proton Pump Inhibitor Start: 12-21-2022 take 1 capsule by mouth once daily omeprazole (PRILOSEC) [address]-capsule Take 1 Cap by mouth daily 0 12/21/2022 Active ondansetron (ZOFRAN ODT) RAPID DISSOLVING tablet 4 mg (2 sources) Start: 02-12-2023 take 1 tablet by mouth every six hours as needed ondansetron (ZOFRAN ODT) RAPID DISSOLVING tablet 4 mg Start: 01-05-2023 take 1 tablet by [facility] every six hours as needed ondansetron (ZOFRAN ODT) RAPID DISSOLVING tablet 4 mg oxyCODONE hydrochloride 5 mg oral tablet (3 sources) Opioid Agonist Start: 03-31-2021 End: 04-09-2021 oxyCODONE (ROXICODONE) 5 MG immediate release tablet Indications: Closed fracture of multiple ribs of right side, initial encounter Take 1 (one) tablet (5 mg total) by mouth every 6 (six) hours as needed (Days supply per fill: 7) . 28 tablet 0 04/02/2021 04/09/2021 Active ramelteon 8 mg oral tablet (1 source) Melatonin Receptor Agonist Start: 02-15-2023 ramelteon (ROZEREM) tablet 8 mg therapeutic multivitamin-mineral s 1 tablet (1 source) Start: 05-08-2023 therapeutic multivitamin-minera ls 1 tablet THEREMS-M 9 mg iron-400 mcg tablet (5 sources) Start: 01-07-2023 End: 02-06-2023 take 1 tablet by mouth once daily THEREMS-M 9 mg iron-400 mcg tablet Take 1 Tab by mouth daily for 30 days 30 Tab 0 01/07/2023 02/06/2023 Active Start: 12-21-2022 End: 01-07-2023 take 1 tablet by mouth once daily THEREMS-M 9 mg iron-400 mcg tablet Take 1 Tab by mouth daily 0 12/21/2022 01/07/2023 Discontinued traZODone hydrochloride 50 mg oral tablet (20 sources) Serotonin Reuptake Inhibitor Start: 12-21-2022 take 1 tablet by mouth at bedtime traZODone (DESYREL) 50 mg tablet Take 1 Tab by mouth at bedtime 0 12/21/2022 Active Start: 05-14-2022 End: 06-27-2022 take 1 tablet by mouth at bedtime traZODone (DESYREL) 50 mg tablet Take 1 tablet (50 mg total) by mouth at bedtime. at bedtime 30 each 1 05/28/2022 06/27/2022 Active Start: 08-20-2021 End: 08-23-2021 take 150 mg by mouth once daily at bedtime 150 mg, Oral, DAILY AT BEDTIME, First dose on Wed08/20/21 at 2100, Until Discontinued Start: 04-30-2021 End: 05-01-2021 traZODone (DESYREL) tablet 1 50 mg Start: 04-30-2021 take 1 tablet by elvia th at bedtime trazodone 150 MG tablet Indications: Depression with suicidal ideation , Other insomnia Take 1 tablet by mouth at bedtime. 30 tablet 0 04/30/2021 Active Start: 04-28-2021 End: 04-30-2021 take 1 tablet by mouth at bedtime traZODone 100 MG tablet Indications: Depression with suicidal ideation , Uncomplicated alcohol dependence Take 1 tablet by mouth at bedtime. 30 tablet 0 04/29/2021 04/30/2021 Discontinued (Stop Taking at Discharge) Start: 04-03-2021 End: 12-03-2021 take 1 tablet by mouth at bedtime traZODone (DESYREL) 50 mg tablet Take 50 mg by mouth at bedtime. 0 04/03/2021 12/03/2021 Discontinued Start: 04-02-2021 End: 05-02-2021 take 0.5 tablet by mouth once daily as needed for sleep traZODone (DESYREL) 50 MG tablet Take 0.5 (one-half) tablet (25 mg total) by mouth nightly as needed for sleep . 30 tablet 0 04/02/2021 05/02/2021 Active Start: 03-31-2021 End: 04-02-2021 traZODone (DESYREL) tablet 2 5 mg Vitamin B Complex (2 sources) take 1 tablet by elvia th once daily b complex vitamins tablet Take 1 tablet by mouth daily . 0 Active take 1 tablet by mouth once andrew y b complex vitamins tablet Take 1 tablet by mouth daily . 0 vitamin E acetate (VITAMIN E ORAL) (2 sources) take 1 capsule by mo uth once daily vitamin E acetate (VITAMIN E ORAL) Take 1 capsule by mouth daily . 0 Active take 1 capsule by mouth once vik ly vitamin E acetate (VITAMIN E ORAL) Take 1 capsule by mouth daily . 0 vitamins multiple therapeuti c w/ minerals (THERAGRAN-M) tablet 1 Tab (1 source) Start: 01-05-2023 vitamins multi ple therapeutic w/ minerals (THERAGRAN-M) tablet 1 Tab Completed/Discontinued Medications Medication Drug Class(es) Dates Sig (Normalized) Sig (Original) albuterol 0.833 mg/ml / ipratropium bromide 0.167 mg/ml inhalation solution (1 source) Anticholinergic, beta2-Adrenergic Agonist Start: 03-31-2021 End: 04-02-2021 take 3 mL by inhalation every four hours as needed for wheezing ipratropium-albute roL (DUO-NEB) 0.5-2.5 mg/3 ml nebulizer solution 3 mL aluminum & magnesium hydroxide-simethico ne (MAALOX) 30 mL, lidocaine viscous hcl (XYLOCAINE) 5 mL (GI COCKTAIL) (1 source) Start: 07-12-2023 End: 07-12-2023 aluminum & magnesium hydroxide-simethic one (MAALOX) 30 mL, lidocaine viscous hcl (XYLOCAINE) 5 mL (GI COCKTAIL) B COMPLEX 1, WITH FOLIC ACID, 0.4 mg Tablet (1 source) Start: 11-29-2022 End: 01-07-2023 take 1 tablet by mouth once daily B COMPLEX 1, WITH FOLIC ACID, 0.4 mg Tablet Take 1 Tab by mouth daily at 6pm 0 11/29/2022 01/07/2023 Discontinued baclofen 10 mg oral tablet (7 sources) gamma-Aminobutyric Acid-ergic Agonist Start: 10-16-2022 End: 01-07-2023 baclofen (LIORESAL) 10 mg tablet Benztropine (1 source) Anticholinergic, Antihistamine Start: 04-25-2021 End: 05-01-2021 take 1 tablet by mouth every six hours as needed benztropine (COGENTIN) tablet 1 mg busPIRone hydrochloride 5 mg oral tablet (13 sources) Start: 07-01-2023 End: 07-01-2023 busPIRone (BUSPAR) tablet 5 mg Start: 02-16-2023 take 1 tablet by elvia th twice daily busPIRone (BUSPAR) 15 mg tablet Take 1 Tab by mouth two times a day 0 02/16/2023 Active Start: 02-14-2023 busPIRone (BUS PAR) tablet Tablet 15 mg Start: 01-06-2023 End: 01-14-2023 take 1 tablet by mouth twice daily busPIRone (BUSPAR) 10 mg tablet Take 1 Tab by mouth two times a day for 7 days Refills per primary care provider 14 Tab 0 01/07/2023 01/14/2023 Active buspirone HCl (B USPAR ORAL) Take by mouth. 0 Active End: 07-01-2023 take 3 tablets by mouth at bedtime busPIRone (BUSPAR) 5 MG tablet Take 3 tablets by mouth in the morning and at bedtime 0 07/01/2023 Discontinued (LIST CLEANUP) take 1 tablet by elvia th at bedtime busPIRone (BUSPAR) 15 MG tablet Take 15 mg by mouth in the morning and at bedtime 0 Active calcium chloride 0.0014 meq/ml / potassium chloride 0.004 meq/ml / sodium chloride 0.103 meq/ml / sodium lactate 0.028 meq/ml injectable solution (1 source) Start: 01-05-2023 End: 01-06-2023 lactated ringers parenteral solution cefTRIAXone IM (ROCEPHIN) injection 500 mg (1 source) Start: 04-01-2021 End: 04-01-2021 cefTRIAXone IM (ROCEPHIN) injection 500 mg chlordiazePOXIDE hydrochloride 5 mg oral capsule (6 sources) Benzodiazepine Start: 07-07-2023 End: 07-07-2023 chlordiazePOXIDE (LIBRIUM) capsule 5 mg Start: 01-08-2023 End: 01-13-2023 take 5 capsules by mouth once daily, then take 4 capsules by mouth once daily, then take 3 capsules by mouth once daily, then take 2 capsules by mouth once daily, then take 1 capsule by mouth once daily chlordiazePOXIDE (LIBRIUM) 5 mg capsule Indications: Alcohol withdrawal syndrome without complication (HC CODE) Take 5 Cap by mouth daily for 1 day, THEN 4 Cap daily for 1 day, THEN 3 Cap daily for 1 day, THEN 2 Cap daily for 1 day, THEN 1 Cap daily for 1 day. No driving on this medication. 15 Cap 0 01/08/2023 01/13/2023 Active Start: 01-07-2023 chlordiazePOXI DE (LIBRIUM) capsule 25 mg Start: 01-05-2023 End: 01-05-2023 chlordiazePOXIDE (LIBRIUM) c apsule 50 mg cloNIDine hydrochloride 0.1 mg oral tablet (6 sources) Central alpha-2 Adrenergic Agonist Start: 10-23-2022 End: 01-07-2023 take 0.1 mg by mouth once 0.1 mg, Oral, ONCE, 1 dose, On Wed01/05/23 at 0915 cyclobenzaprine hydrochloride 10 mg oral tablet (9 sources) Muscle Relaxant Start: 07-19-2022 End: 01-07-2023 cyclobenzaprine (FLEXERIL) 10 mg tablet dicyclomine hydrochloride 10 mg oral capsule (9 sources) Anticholinergic Start: 10-30-2022 End: 10-30-2022 dicyclomine (BENTYL) capsule 10 mg Start: 10-30-2022 End: 01-07-2023 take 1 tablet by mouth three times daily at bedtime dicyclomine (BENTYL) 20 mg tablet Take 1 Tab by mouth three times a day before meals and at bedtime 14 Tab 0 10/30/2022 01/07/2023 Discontinued 1 ml diphenhydrAMINE hydrochloride 50 mg/ml cartridge (5 sources) Histamine-1 Receptor Antagonist Start: 07-07-2023 End: 07-06-2023 diphenhydrAMINE (BENADRYL) injection 25 mg Start: 07-06-2023 End: 07-06-2023 diphenhydrAMINE (BENADRYL) 5 0 MG/ML injection Start: 01-08-2023 End: 01-08-2023 diphenhydrAMINE (BENADRYL) i njection 50 mg Start: 01-08-2023 End: 01-08-2023 diphenhydrAMINE (BENADRYL) 5 0 mg/ml injection solution Pyxis Override Start: 08-20-2021 End: 08-20-2021 diphenhydrAMINE (BENADRYL) i njection 50 mg 2 ml droperidol 2.5 mg/ml injection (2 sources) Dopamine-2 Receptor Antagonist Start: 08-20-2021 End: 08-20-2021 droperidol (INAPSINE) injection 5 mg Start: 08-20-2021 End: 08-20-2021 droperidol (INAPSINE) inject ion ergocalciferol 1.25 mg oral capsule (5 sources) Provitamin D2 Compound Start: 10-24-2022 End: 01-07-2023 take 1 capsule by mouth once daily ergocalciferol (VITAMIN D2) 1,250 mcg (50,000 unit) capsule Take 1 Cap by mouth daily 0 10/24/2022 01/07/2023 Discontinued famotidine 10 mg oral tablet (2 sources) Histamine-2 Receptor Antagonist Start: 02-12-2023 take 10 mg by mouth once daily 10 mg, Oral, DAILY, First dose on Wed02/12/23 at 1700, Until Discontinued Start: 02-12-2023 End: 02-12-2023 famotidine (PEPCID) tablet 2 0 mg famotidine (PEPCID) 20 mg in sodium chloride (PF) 0.9 % 10 mL injection (2 sources) Start: 07-12-2023 End: 07-12-2023 famotidine (PEPCID) 20 mg in sodium chloride (PF) 0.9 % 10 mL injection Start: 06-28-2023 End: 06-28-2023 famotidine (PEPCID) 20 mg in sodium chloride (PF) 0.9 % 10 mL injection 1 ml fentaNYL 0.05 mg/ml injection (1 source) Opioid Agonist Start: 03-31-2021 End: 03-31-2021 fentaNYL (SUBLIMAZE) injection fluticasone propionate 0.05 mg/actuat metered dose nasal spray (20 sources) Corticosteroid Start: 01-07-2023 take 2 spray(s) nasal route once daily 2 [place], Each Nostril, DAILY, First dose on Wed02/12/23 at 1900, Until Discontinued Start: 01-05-2023 take 1 spray(s) nasa l route once daily 1 [place], Each Nostril, DAILY, First dose on Wed01/05/23 at 1400, Until Discontinued Start: 05-28-2022 End: 05-28-2023 fluticasone propionate (FLON ASE) 50 mcg/actuation nasal spray Start: 05-11-2022 End: 05-28-2022 take 2 spray(s) nasal route once daily fluticasone propionate (FLONASE) 50 mcg/actuation nasal spray Administer 2 sprays into each nostril 1 (one) time each day. 0 05/11/2022 05/28/2022 Discontinued End: 07-01-2023 fluticasone (FLONASE) 50 MCG /ACT nasal spray 1 spray by Nasal route daily 0 07/01/2023 Discontinued (LIST CLEANUP) fluticasone prop ionate (FLONASE) 50 mcg/actuation nasal spray for TOPICAL USE Apply to affected area. 0 Active folic acid 1 mg oral tablet (20 sources) Start: 05-08-2023 End: 05-08-2023 folic acid (FOLVITE) tablet 1 mg Start: 02-13-2023 take 1 mg by mouth once daily 1 mg, Oral, DAILY, First dose on Wed02/13/23 at 0900, Until Discontinued Start: 10-23-2022 End: 11-30-2023 take 1 tablet by mouth once daily folic acid (FOLATE) 1 mg tablet Take 1 Tab by mouth daily 30 Tab 0 01/07/2023 Active Start: 03-31-2021 End: 07-01-2023 take 1 tablet by mouth once daily folic acid (FOLVITE) 1 mg tablet Take 1 tablet (1,000 mcg total) by mouth 1 (one) time each day. 0 05/14/2022 Active gabapentin 300 mg oral capsule (6 sources) Anti-epileptic Agent Start: 04-03-2021 End: 12-03-2021 take 1 capsule by mouth every eight hours gabapentin (NEURONTIN) 300 mg capsule Take 300 mg by mouth every 8 (eight) hours. 0 04/03/2021 12/03/2021 Discontinued Start: 03-31-2021 End: 05-02-2021 gabapentin (NEURONTIN) 300 M G capsule Take 1 (one) capsule (300 mg total) by mouth every 8 (eight) hours (Days supply per fill: 30) . 90 capsule 0 04/02/2021 05/02/2021 Active gadoterate meglumine (DOTAREM) injection 20 mL (1 source) Start: 03-31-2021 End: 03-31-2021 gadoterate meglumine (DOTAREM) injection 20 mL GI Cocktail (ED/CDU) (1 source) Start: 05-14-2022 End: 05-14-2022 GI Cocktail (ED/CDU) Haloperidol (4 sources) Typical Antipsychotic Start: 01-08-2023 End: 01-08-2023 haloperidol lactate (HALDOL) injection solution 5 mg Start: 01-08-2023 End: 01-08-2023 haloperidol (HALDOL) 5 mg in jection solution Pyxis Override Start: 04-25-2021 End: 05-01-2021 take 1 tablet by mouth every four hours as needed haloperidol (HALDOL) tablet 5 mg Start: 04-25-2021 End: 04-25-2021 haloperidol lactate (HALDOL) injection haloperidol lactate (HALDOL) injection 5 mg (1 source) Start: 04-25-2021 End: 05-01-2021 inject 5 mg by intramuscular injection every four hours as needed haloperidol lactate (HALDOL) injection 5 mg 1 ml HYDROmorphone hydrochloride 1 mg/ml cartridge (1 source) Opioid Agonist Start: 03-31-2021 End: 04-01-2021 take 0.5 mg intravenously every two hours as needed HYDROmorphone (DILAUDID) injection 0.5 mg iopamidoL (ISOVUE-370) 76 % injection 75 mL (1 source) Start: 03-31-2021 End: 03-31-2021 iopamidoL (ISOVUE-370) 76 % injection 75 mL iopamidol (ISOVUE-370) 76 % injection 75 mL (1 source) Start: 06-28-2023 End: 06-28-2023 iopamidol (ISOVUE-370) 76 % injection 75 mL 1 ml ketorolac tromethamine 30 mg/ml injection (2 sources) Nonsteroidal Anti-inflammatory Drug, Cyclooxygenase Inhibitor Start: 03-31-2021 End: 04-02-2021 take 15 mg intravenously every six hours ketorolac (TORADOL) injection 15 mg LORazepam 1 mg oral tablet (19 sources) Benzodiazepine Start: 07-12-2023 End: 07-12-2023 LORazepam (ATIVAN) tablet 1 mg Start: 07-01-2023 End: 07-01-2023 LORazepam (ATIVAN) injection 2 mg Start: 07-01-2023 End: 07-01-2023 LORazepam (ATIVAN) injection 1 mg Start: 07-01-2023 End: 07-01-2023 LORazepam (ATIVAN) injection 1 mg Start: 07-01-2023 End: 07-01-2023 LORazepam (ATIVAN) 2 MG/ML injection Start: 06-29-2023 End: 06-29-2023 LORazepam (ATIVAN) injection 2 mg Start: 06-28-2023 LORazepam (ATI VAN) tablet 1 mg Start: 05-09-2023 End: 05-09-2023 LORazepam (ATIVAN) injection 0.5 mg Start: 05-08-2023 LORazepam (ATI VAN) tablet 1 mg Start: 01-08-2023 End: 01-08-2023 LORazepam (ATIVAN) injection solution 2 mg Start: 01-08-2023 End: 01-08-2023 LORazepam (ATIVAN) 2 mg/ml injection solution Pyxis Override Start: 01-05-2023 End: 01-05-2023 LORazepam (ATIVAN) tablet 1 mg Start: 10-30-2022 End: 10-30-2022 LORazepam (ATIVAN) injection solution 2 mg Start: 06-07-2022 End: 06-08-2022 LORazepam (ATIVAN) tablet 1 mg Start: 05-19-2022 End: 05-19-2022 LORazepam (ATIVAN) tablet 2 mg Start: 12-03-2021 End: 12-03-2021 LORazepam (ATIVAN) injection 2 mg Start: 04-25-2021 End: 04-25-2021 inject 2 mg by intramuscular injection every six hours as needed LORazepam (ATIVAN) injection 2 mg Start: 03-31-2021 End: 04-02-2021 take 1-4 mg by mouth every hour as needed LORazepam (ATIVAN) tablet 1-4 mg methocarbamol 500 mg oral tablet (5 sources) Muscle Relaxant Start: 03-31-2021 End: 12-03-2021 take 1 tablet by mouth every six hours as needed methocarbamoL (ROBAXIN) 500 mg tablet Take 500 mg by mouth every 6 (six) hours if needed for muscle spasms. 0 04/03/2021 12/03/2021 Discontinued 2 ml midazolam 1 mg/ml injection (1 source) Benzodiazepine Start: 08-20-2021 End: 08-20-2021 midazolam (VERSED) injection 2 mg Start: 08-20-2021 End: 08-20-2021 midazolam (VERSED) injection 2 mg mirtazapine 15 mg oral table t (6 sources) Start: 07-01-2023 End: 07-01-2023 mirtazapine (REMERON) tablet 45 mg Start: 02-15-2023 mirtazapine (R EMERON) tablet 30 mg Start: 02-13-2023 End: 02-14-2023 mirtazapine (REMERON) tablet 30 mg mirtazapine (REM KAMERON ORAL) Take by mouth. 0 Active End: 07-01-2023 take 1 tablet by mouth once daily mirtazapine (REMERON) 45 MG tablet Take 1 tablet by mouth nightly 0 07/01/2023 Discontinued (LIST CLEANUP) take 1 tablet by elvia th at bedtime mirtazapine (REMERON SOLTAB) 30 mg rapid dissolve tablet Indications: major depressive disorder Take 1 Tab by mouth at bedtime 0 Active multivitamin (THERAGRAN) per tablet 1 tablet (1 source) Start: 03-31-2021 End: 04-02-2021 multivitamin (THERAGRAN) per tablet 1 tablet multivitamin w/ minerals (THERAPEUTIC-M) tablet 1 tablet (1 source) Start: 04-26-2021 End: 05-01-2021 take 1 tablet by mouth once daily 1 tablet, Oral, DAILY, First dose on 04/26/21 at 0900, Until Discontinued naloxone (NARCAN) injection 0.1 mg (1 source) Start: 03-31-2021 End: 04-02-2021 naloxone (NARCAN) injection 0.1 mg 2 ml ondansetron 2 mg/ml injection (13 sources) Serotonin-3 Receptor Antagonist Start: 06-28-2023 End: 06-28-2023 ondansetron (ZOFRAN) injection 4 mg Start: 02-12-2023 End: 02-12-2023 ondansetron (ZOFRAN ODT) RAP ID DISSOLVING tablet 4 mg Start: 10-30-2022 End: 10-30-2022 ondansetron (ZOFRAN) injecti on 4 mg Start: 10-30-2022 End: 01-07-2023 take 1 tablet by mouth every six hours as needed ondansetron (ZOFRAN ODT) 4 mg RAPID DISSOLVING tablet Take 1 Tab by mouth every 6 hours as needed 12 Tab 0 10/30/2022 01/07/2023 Discontinued Start: 12-03-2021 End: 12-13-2021 apply 1 tablet topically every eight hours for vomiting ondansetron ODT (ZOFRAN-ODT) 4 mg disintegrating tablet Dissolve 1 tablet (4 mg total) on top of the tongue every 8 (eight) hours if needed for vomiting for up to 10 days. 20 each 0 12/03/2021 12/13/2021 Active Start: 03-31-2021 End: 03-31-2021 ondansetron (ZOFRAN) injecti on 4 mg pantoprazole 40 mg delayed release oral tablet (1 source) Proton Pump Inhibitor Start: 01-05-2023 take 40 mg by mouth once daily 40 mg, Oral, DAILY, First dose on Wed01/05/23 at 1000, Until Discontinued, Indications: gastroesophageal reflux disease PHENobarbital 65 mg/ml injectable solution (1 source) Start: 08-20-2021 End: 08-23-2021 inject 65 mg by intramuscular injection every six hours as needed PHENobarbital injection 65 mg PHENobarbital (LUMINAL) injection 130 mg (1 source) Start: 06-29-2023 End: 06-29-2023 PHENobarbital (LUMINAL) injection 130 mg polyethylene glycol [id number] mg powder for oral solution (2 sources) Osmotic Laxative Start: 08-20-2021 End: 08-23-2021 polyethylene glycol (MIRALAX) packet 17 g Start: 04-25-2021 End: 05-01-2021 17 g, Oral, DAILY NEEDED, Starting on Wed04/25/21 at 2314, Until Wed05/01/21 at 1251, Constipation 1st Line polyvinyl alcohol 0.014 ml/m l / povidone 6 mg/ml ophthalmic solution (1 source) Start: 04-27-2021 End: 05-01-2021 Polyvinyl Alcohol-Povidone P F (REFRESH) ophthalmic solution 2 drop microencapsulated potassium chloride 20 meq extended release oral tablet (1 source) Start: 08-21-2021 End: 08-21-2021 potassium chloride (K-DUR) tablet ER 40 mEq Start: 08-21-2021 End: 08-21-2021 potassium chloride (K-DUR) t ablet ER 40 mEq Prochlorperazine (1 source) Phenothiazine Start: 08-20-2021 End: 08-23-2021 take 1 tablet by mouth every six hours as needed prochlorperazine (COMPAZINE) tablet 10 mg 50 ml sodium chloride 9 mg/ml injection (20 sources) Start: 07-12-2023 End: 07-12-2023 sodium chloride 0.9 % bolus 1,000 mL Start: 07-07-2023 End: 07-07-2023 sodium chloride 0.9 % bolus 500 mL Start: 06-28-2023 0.9 % sodium c hloride infusion Start: 06-28-2023 sodium chlorid e flush 0.9 % injection 5-40 mL Start: 06-28-2023 End: 06-29-2023 sodium chloride 0.9 % bolus 1,000 mL Start: 06-05-2023 End: 06-05-2023 sodium chloride 0.9 % bolus 1,000 mL Start: 05-08-2023 0.9 % sodium c hloride infusion Start: 05-08-2023 sodium chlorid e flush 0.9 % injection 5-40 mL Start: 02-12-2023 NaCl 0.9% 1,00 0 mL Start: 02-12-2023 saline flush Start: 01-05-2023 saline flush Start: 01-03-2023 saline flush Start: 12-03-2021 End: 12-03-2021 sodium chloride 0.9 % bolus 1,000 mL Start: 12-03-2021 End: 12-03-2021 sodium chloride 0.9 % flush 10 mL Start: 08-20-2021 End: 08-23-2021 sodium chloride 0.9% IV solu tion 250 mL Start: 03-31-2021 End: 03-31-2021 sodium chloride 0.9% (NS) TAB-A-RENAE MULTIVITAMIN W-IRON 15 mg iron- 400 mcg Tablet (1 source) Start: 11-16-2022 End: 01-07-2023 take 1 tablet by mouth once daily TAB-A-RENAE MULTIVITAMIN W-IRON 15 mg iron- 400 mcg Tablet Take 1 Tab by mouth daily 0 11/16/2022 01/07/2023 Discontinued thiamine 100 mg oral tablet (20 sources) Start: 06-28-2023 End: 06-28-2023 thiamine tablet 100 mg Start: 05-08-2023 thiamine monon itrate tablet 100 mg Start: 02-16-2023 take 2 tablets by mo uth twice daily thiamine (VITAMIN B1) 100 mg tablet Take 2 Tab by mouth two times a day 0 02/16/2023 Active Start: 02-15-2023 thiamine (MALENA MIN B1) tablet 200 mg Start: 12-21-2022 End: 02-06-2023 take 1 tablet by mouth once daily thiamine (VITAMIN B1) 100 mg tablet Take 1 Tab by mouth daily for 30 days 30 Tab 0 01/07/2023 02/06/2023 Active Start: 08-25-2021 End: 08-23-2021 thiamine tablet 100 mg Start: 04-26-2021 End: 05-01-2021 take 1 tablet by mouth once daily thiamine 100 MG tablet Indications: Uncomplicated alcohol dependence Take 1 tablet by mouth daily. 30 tablet 0 04/30/2021 Active Start: 04-03-2021 End: 05-03-2021 take 2 tablets by mouth once daily thiamine 100 MG tablet Take 2 (two) tablets (200 mg total) by mouth daily Start: 04/03/21. 60 tablet 0 04/03/2021 05/03/2021 Active Start: 03-31-2021 End: 04-02-2021 thiamine tablet 200 mg thiamine (vitamin B1) 100 mg , folic acid (FOLVITE) 1 mg, multivitamin 10 mL in NaCl 0.9% 1,000 mL infusion (2 sources) Start: 02-12-2023 End: 02-12-2023 thiamine (vitamin B1) 100 mg , folic acid (FOLVITE) 1 mg, multivitamin 10 mL in NaCl 0.9% 1,000 mL infusion Start: 09-12-2022 End: 09-12-2022 thiamine (vitamin B1) 100 mg , folic acid (FOLVITE) 1 mg, multivitamin 10 mL in NaCl 0.9% 1,000 mL infusion thiamine (vitamin B1) 500 mg in NaCl 0.9% 100 mL IVPB (1 source) Start: 02-12-2023 End: 02-15-2023 thiamine (vitamin B1) 500 mg in NaCl 0.9% 100 mL IVPB tiZANidine 4 mg oral tablet (1 source) Central alpha-2 Adrenergic Agonist Start: 04-02-2021 End: 04-02-2021 tiZANidine (ZANAFLEX) tablet 4 mg valACYclovir 1000 mg oral tablet (1 source) Herpesvirus Nucleoside Analog DNA Polymerase Inhibitor, Herpes Simplex Virus Nucleoside Analog DNA Polymerase Inhibitor, Herpes Zoster Virus Nucleoside Analog DNA Polymerase Inhibitor End: 08-22-2021 valacyclovir 1 g tablet Take 1,000 mg by mouth Twice daily. 0 08/22/2021 Discontinued (Medication Reconciliation (suppress cancel msg)) divalproex sodium 500 mg delayed release oral tablet (4 sources) Mood Stabilizer, Anti-epileptic Agent Start: 07-01-2023 End: 05-23-2024 divalproex (DEPAKOTE) DR tablet 500 mg take 1 tablet by mouth at bedtim e divalproex (DEPAKOTE) [address] tablet Take 1 tablet by mouth in the morning and at bedtime 0 Active venlafaxine 50 mg oral tablet (20 sources) Serotonin and Norepinephrine Reuptake Inhibitor Start: 10-30-2022 End: 10-30-2022 venlafaxine (EFFEXOR) tablet 200 mg Start: 07-11-2022 venlafaxine (E FFEXOR XR) extended release capsule 225 mg Start: 06-08-2022 End: 06-08-2022 take 150 mg by mouth once daily at breakfast 150 mg, Oral, DAILY WITH BREAKFAST, First dose on Wed06/08/22 at 0800, Until Discontinued Slow release product. Do not chew or crush. Start: 05-19-2022 End: 06-18-2022 take 3 capsules by mouth once daily venlafaxine XR (Effexor XR) 75 mg 24 hr capsule Take 3 capsules (225 mg total) by mouth 1 (one) time each day. Do not crush or chew. 90 each 0 05/19/2022 06/18/2022 Active Start: 05-19-2022 End: 05-19-2022 venlafaxine XR (EFFEXOR-XR) 24 hr capsule 225 mg Start: 05-14-2022 take 1 capsule by mo uth once daily venlafaxine XR (EFFEXOR-XR) 150 mg 24 hr capsule Take 1 capsule (150 mg total) by mouth 1 (one) time each day. With 75 mg = 225 mg 0 05/14/2022 Active Start: 04-26-2021 End: 05-28-2022 take 1 capsule by mouth once daily venlafaxine XR (EFFEXOR-XR) 75 mg 24 hr capsule Take 1 capsule (75 mg total) by mouth 1 (one) time each day. With 150 mg = 225 mg 0 05/14/2022 05/28/2022 Discontinued Start: 04-01-2021 End: 05-19-2022 take 1 capsule by mouth once daily venlafaxine XR (EFFEXOR-XR) 37.5 mg 24 hr capsule Take 37.5 mg by mouth 1 (one) time each day. 0 04/03/2021 05/19/2022 Discontinued (Entered in Error) venlafaxine (EFF EXOR) 100 MG tablet Take 225 mg by mouth once Once daily 0 Active End: 01-07-2023 take 9 tablets by mouth once venlafaxine (EFFEXOR) 25 mg tablet Take 9 Tab by mouth once Per patient he states he takes 225mg once daily. 0 01/07/2023 Discontinued venlafaxine HCl (EFFEXOR PO) Take by mouth. 0 Active vitamin b12 0.1 mg oral tablet (1 source) Vitamin B12 Start: 08-22-2021 End: 08-23-2021 cyanocobalamin (VITAMIN B12) tablet 100 mcg water 1000 mg/ml injectable solution (4 sources) Start: 07-07-2023 End: 07-06-2023 sterile water injection 2 mL Start: 07-06-2023 End: 07-06-2023 sterile water injection Start: 05-28-2022 End: 05-28-2022 take 2 drop(s) into the eye(s) once balanced salts (Eye Stream) solution ophthalmic solution Indications: Seasonal allergies Administer 2 drops into both eyes 1 (one) time for 1 dose. 1 each 0 05/28/2022 05/28/2022 ziprasidone 20 mg injection (3 sources) Atypical Antipsychotic Start: 07-07-2023 End: 07-06-2023 ziprasidone (GEODON) injection 10 mg Start: 07-06-2023 End: 07-06-2023 ziprasidone (GEODON) 20 MG i njection Start: 01-07-2023 End: 01-07-2023 ziprasidone (GEODON) intramu scular recon solution 20 mg Problems Active Problems Problem Classification Problem Date Documented Date Episodic/Chronic Abdominal pain (14 sources) Left lower quadrant pain; Translations: [Left lower quadrant pain] Onset: 07-18-2022 Episodic Administrative/social admission (2 sources) Homeless; Translations: [Homelessness] Onset: 03-16-2023 Episodic Alcohol-related disorders (20 sources) Alcohol abuse; Translations: [Alcohol dependence, uncomplicated] Onset: 03-31-2021 Chronic Alcohol-related disorders (20 sources) Alcohol intoxication; Translations: [Alcohol use, unspecified with intoxication, uncomplicated] Onset: 04-04-2021 Episodic Allergic reactions (1 source) H/O: non-drug allergy; Translations: [Other allergy status, other than to drugs and biological substances] Episodic Anxiety disorders (5 sources) Anxiety; Translations: [Anxiety disorder, unspecified] Onset: 10-30-2022 Chronic Attention-deficit, conduct, and disruptive behavior disorders (2 sources) Other symptoms and signs involving appearance and behavior; Translations: [Other symptoms and signs involving appearance and behavior] Onset: 11-13-2022 Episodic Attention-deficit, conduct, and disruptive behavior disorders (1 source) Aggressive behavior; Translations: [Other symptoms and signs involving appearance and behavior] 01-08-2023 Episodic E Codes: Fall (4 sources) Fall from, out of or through building, not otherwise specified, initial encounter; Translations: [Accidental fall from or out of building or other structure] Onset: 03-31-2021 Episodic E Codes: Fall (2 sources) Fall; Translations: [Fall] Onset: 01-08-2023 Epilepsy; convulsions (1 source) Unspecified convulsions; Translations: [Unspecified convulsions] Onset: 05-22-2023 Episodic Fracture of upper limb (2 sources) Other fracture of fourth metacarpal bone, left hand, initial encounter for closed fracture; Translations: [Other fracture of fourth metacarpal bone, left hand, initial encounter for closed fracture] Onset: 04-27-2022 Episodic Fracture of upper limb (2 sources) Displaced fracture of shaft of fourth metacarpal bone, right hand, initial encounter for closed fracture; Translations: [Displaced fracture of shaft of fourth metacarpal bone, right hand, initial encounter for closed fracture] Onset: 04-24-2022 Episodic Miscellaneous mental health disorders (4 sources) Primary insomnia; Translations: [Primary insomnia] Onset: 05-28-2022 Chronic Mood disorders (20 sources) Recurrent major depressive episodes, moderate ; Translations: [Major depressive disorder, recurrent, moderate] Onset: 03-31-2021 Chronic Mood disorders (4 sources) Mood disorders; Translations: [Depression, unspecified] Onset: 04-04-2021 Nausea and vomiting (6 sources) Nausea and vomiting; Translations: [Nausea with vomiting, unspecified] Onset: 10-20-2021 Episodic Nonspecific chest pain (9 sources) Other chest pain; Translations: [Chest pain] Onset: 04-24-2022 Episodic Open wounds of extremities (1 source) Laceration without foreign body of right forearm, initial encounter; Translations: [Laceration of right forearm, initial encounter] Onset: 04-20-2023 Episodic Other fractures (1 source) Closed fracture of multiple right ribs; Translations: [Multiple fractures of ribs, right side, initial encounter for closed fracture] Episodic Other injuries and conditions due to external causes (1 source) Traumatic injury; Translations: [Injury, unspecified, initial encounter] Episodic Other injuries and conditions due to external causes (2 sources) Injury of head; Translations: [Unspecified injury of head, initial encounter] 07-01-2023 Episodic Other injuries and conditions due to external causes (1 source) Unspecified injury of head, initial encounter; Translations: [Unspecified injury of head, initial encounter] Onset: 07-06-2023 Episodic Other liver diseases (1 source) Lesion of liver; Translations: [Liver disease, unspecified] 06-28-2023 Chronic Other liver diseases (1 source) Liver disease, unspecified; Translations: [Liver disease, unspecified] Onset: 06-28-2023 Chronic Other liver diseases (1 source) Large liver; Translations: [Hepatomegaly, not elsewhere classified] 06-28-2023 Episodic Other liver diseases (1 source) Hepatomegaly, not elsewhere classified; Translations: [Hepatomegaly, not elsewhere classified] Onset: 06-28-2023 Episodic Other nervous system disorders (1 source) Paresthesia of right upper limb; Translations: [Paresthesia of skin] Episodic Other screening for suspected conditions (not mental disorders or infectious disease) (4 sources) Screening due; Translations: [Encounter for screening, unspecified] Onset: 05-28-2022 Episodic Other upper respiratory disease (1 source) Seasonal allergy; Translations: [Other seasonal allergic rhinitis] Chronic Other upper respiratory disease (1 source) Other seasonal allergic rhinitis; Translations: [Other seasonal allergic rhinitis] Onset: 05-28-2022 Chronic Residual codes; unclassified (1 source) Insomnia; Translations: [Other insomnia] Chronic Residual codes; unclassified (1 source) Restlessness and agitation; Translations: [Restlessness and agitation] Onset: 04-04-2021 Chronic Residual codes; unclassified (2 sources) History of drug abuse; Translations: [Personal history of other specified conditions] Onset: 04-01-2021 Episodic Residual codes; unclassified (2 sources) Pain; Translations: [Pain] Onset: 04-28-2022 Episodic Residual codes; unclassified (1 source) Alcoholism; Translations: [Alcohol use disorder] Episodic Residual codes; unclassified (2 sources) Altered mental status Onset: 10-15-2022 Episodic Residual codes; unclassified (1 source) Finding relating to alcohol drinking behavior; Translations: [Alcohol problem drinking] Episodic Residual codes; unclassified (1 source) Tobacco user; Translations: [Tobacco use] 01-05-2023 Episodic Residual codes; unclassified (8 sources) Nicotine-filled electronic cigarette user; Translations: [Tobacco use] Onset: 01-05-2023 01-05-2023 Episodic Residual codes; unclassified (2 sources) Other general symptoms and signs; Translations: [Other general symptoms and signs] Onset: 01-13-2023 Episodic Residual codes; unclassified (2 sources) Tobacco use; Translations: [Tobacco use] Onset: 01-05-2023 Episodic Spondylosis; intervertebral disc disorders; other back problems (2 sources) Backache; Translations: [Back Pain] Onset: 01-04-2023 Episodic Substance-related disorders (20 sources) Cocaine dependence; Translations: [Cocaine dependence, uncomplicated] Onset: 04-01-2021 Chronic Unclassified (3 sources) Peer Supporter Onset: 05-19-2022 05-19-2022 Unclassified (3 sources) Connect to Treatment Onset: 05-19-2022 05-19-2022 Unclassified (3 sources) Medical Referral Onset: 05-19-2022 05-19-2022 Unclassified (3 sources) 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 Firmware Engineer Onset: 05-19-2022 05-19-2022 Unclassified (4 sources) Homelessness unspecified; Translations: [Homelessness unspecified] Onset: 02-28-2022 Unclassified (1 source) Passed out on sidewalk/confusion Onset: 10-15-2022 Unclassified (5 sources) Alcohol Problem; Translations: [Alcohol Problem] Onset: 10-31-2022 Unclassified (1 source) Drug / Alcohol Assessment Onset: 09-12-2022 Unclassified (1 source) Addiction Problem Onset: 08-30-2022 Unclassified (1 source) Alcohol use, unspecified with withdrawal, unspecified (HC CODE); Translations: [Alcohol use, unspecified with withdrawal, unspecified (HC CODE)] Onset: 02-12-2023 Unclassified (2 sources) Intoxication; Translations: [Intoxication] Onset: 02-12-2023 Unclassified (1 source) Alcohol use, unspecified with withdrawal, uncomplicated (HC CODE); Translations: [Alcohol use, unspecified with withdrawal, uncomplicated (HC CODE)] Onset: 02-12-2023 Unclassified (2 sources) Medical Problem; Translations: [Medical Problem] Onset: 01-16-2023 Unclassified (2 sources) Evaluation Of Abnormal Diagnostic Test; Translations: [Evaluation Of Abnormal Diagnostic Test] Onset: 01-13-2023 Unclassified (1 source) Alcohol abuse with withdrawal, unspecified (HC CODE); Translations: [Alcohol abuse with withdrawal, unspecified (HC CODE)] Onset: 01-05-2023 Unclassified (1 source) Alcohol use, unspecified, uncomplicated; Translations: [Alcohol use, unspecified, uncomplicated] Onset: 11-02-2022 Unclassified (2 sources) SI Onset: 11-02-2022 Unclassified (2 sources) Drug Problem; Translations: [Drug Problem] Onset: 09-12-2022 Unclassified (2 sources) Withdrawal-Alcohol; Translations: [Withdrawal-Alcohol] Onset: 07-14-2022 Unclassified (2 sources) Drug/Alcohol Assessment; Translations: [Drug/Alcohol Assessment] Onset: 07-14-2022 Unclassified (3 sources) Alcohol use, unspecified with withdrawal with perceptual disturbance; Translations: [Alcohol use, unspecified with withdrawal with perceptual disturbance] Onset: 05-15-2023 Unclassified (1 source) Alcohol abuse with withdrawal, unspecified; Translations: [Alcohol abuse with withdrawal, unspecified] Onset: 05-15-2023 Unclassified (1 source) Alcohol use, unspecified with withdrawal, uncomplicated; Translations: [Alcohol use, unspecified with withdrawal, uncomplicated] Onset: 06-30-2023 Unclassified (1 source) Alcohol use, unspecified with withdrawal, unspecified; Translations: [Alcohol use, unspecified with withdrawal, unspecified] Onset: 06-30-2023 Past or Other Problems Problem Classification Problem Date Documented Date Episodic/Chronic Conditions associated with dizziness or vertigo (2 sources) Dizziness and giddiness; Translations: [Dizziness and giddiness] Onset: 10-20-2021 Episodic Other aftercare (1 source) Encounter for other specified aftercare; Translations: [Encounter for other specified aftercare] Onset: 07-18-2022 Episodic Other connective tissue disease (2 sources) Other muscle spasm; Translations: [Other muscle spasm] Onset: 05-30-2022 Episodic Other connective tissue disease (2 sources) Pain in right foot; Translations: [Pain in right foot] Onset: 05-30-2022 Episodic Other fractures (1 source) Multiple fractures of ribs, right side, initial encounter for closed fracture; Translations: [Multiple fractures of ribs, right side, initial encounter for closed fracture] Onset: 04-04-2021 Episodic Other lower respiratory disease (2 sources) Pleurodynia; Translations: [Pleurodynia] Onset: 10-20-2021 Episodic Other non-traumatic joint disorders (2 sources) Pain in unspecified ankle and joints of unspecified foot; Translations: [Pain in unspecified ankle and joints of unspecified foot] Onset: 05-30-2022 Episodic Substance-related disorders (18 sources) Substance misuse behavior; Translations: [Other psychoactive substance use, unspecified, uncomplicated] Onset: 03-31-2021 Episodic Suicide and intentional self-inflicted injury (20 sources) Suicide attempt ; Translations: [Suicide attempt, initial encounter] Onset: 10-14-2021 Episodic Unclassified (2 sources) Homelessness unspecified; Translations: [Homelessness unspecified] Onset: 03-04-2022 Unclassified (1 source) Alcohol use, unspecified with intoxication, uncomplicated (HC CODE); Translations: [Alcohol use, unspecified with intoxication, uncomplicated (HC CODE)] Onset: 02-12-2023 Unclassified (1 source) Alcohol use, unspecified with withdrawal, unspecified (HC CODE); Translations: [Alcohol use, unspecified with withdrawal, unspecified (HC CODE)] Onset: 02-12-2023 Unclassified (1 source) Alcohol use, unspecified with withdrawal, uncomplicated (HC CODE); Translations: [Alcohol use, unspecified with withdrawal, uncomplicated (HC CODE)] Onset: 02-12-2023 Unclassified (1 source) Encounter for screening, unspecified; Translations: [Encounter for screening, unspecified] Onset: 01-16-2023 Unclassified (1 source) Alcohol use, unspecified with intoxication, unspecified (HC CODE); Translations: [Alcohol use, unspecified with intoxication, unspecified (HC CODE)] Onset: 01-08-2023 Unclassified (1 source) Other symptoms and signs involving appearance and behavior; Translations: [Other symptoms and signs involving appearance and behavior] Onset: 01-08-2023 Unclassified (1 source) Alcohol use, unspecified with intoxication delirium (HC CODE); Translations: [Alcohol use, unspecified with intoxication delirium (HC CODE)] Onset: 01-07-2023 Unclassified (1 source) Unspecified mood (affective) disorder (HC CODE); Translations: [Unspecified mood (affective) disorder (HC CODE)] Onset: 01-05-2023 Unclassified (1 source) Alcohol abuse with withdrawal, unspecified (HC CODE); Translations: [Alcohol abuse with withdrawal, unspecified (HC CODE)] Onset: 01-05-2023 Unclassified (1 source) Alcohol use, unspecified, uncomplicated; Translations: [Alcohol use, unspecified, uncomplicated] Onset: 11-02-2022 Unclassified (1 source) Alcohol use, unspecified with withdrawal with perceptual disturbance; Translations: [Alcohol use, unspecified with withdrawal with perceptual disturbance] Onset: 05-15-2023 Unclassified (1 source) Alcohol abuse with withdrawal, unspecified; Translations: [Alcohol abuse with withdrawal, unspecified] Onset: 05-15-2023 Unclassified (1 source) Alcohol use, unspecified with withdrawal, unspecified; Translations: [Alcohol use, unspecified with withdrawal, unspecified] Onset: 06-30-2023 Results Test Name Value Interpretation Reference Range Facility [facility] 07-28-2023 ALLIED HEALTH HNO ID: [id number] Author: HAYLIE NGUYEN RT(R) Service: Radiology Author Type: Technologist Type: Allied Health Filed: 07/28/2023 14:31 Note Text: Radiology Service Progress Note PATIENT NAME: Mckinley Roman DATE OF SERVICE: July 28, 2023 TIME: 2:25 PM PATIENT IDENTITY VERIFICATION COMPLETED USING TWO (2) IDENTIFIERS: Name and Date of confirmed by patient verbally and Name and Date of confirmed by identification band. FALL SCREENING: Has the patient had 2 falls in the last year or 1 fall with injury or currently using an Ambulatory Assistive Device (Walker, Cane, Wheelchair, Crutches, etc.)? Emergency Room Patient: Screened in ED PATIENT GENDER DATA: Male PATIENT RELEVANT IMPLANT DATA REVIEWED: Not Applicable PATIENT PRESENTS WITH AN IMPLANTABLE OR ATTACHED STORAGE GARAGE ATTENDANT: No RADIOLOGY DEPARTMENT: General X-ray: Exam(s) Completed: Chest X-Ray PERIPHERAL IV DATA: Not applicable SIGNED BY: Ramona Jasmine, RT(R) July 28, 2023 2:25 PM [facility] ED NOTEon 07-28-2023 ED NOTE HNO ID: [id number] Author: SHERI HUTTON RN Service: ? Author Type: Registered Nurse Type: ED Notes Filed: 07/28/2023 14:55 Note Text: Sent by [facility] for a positive TB test. Pt denies any complaints. [facility] ED PROV NOTEon 07-28-2023 ED PROV NOTE HNO ID: [id number] Author: ANIRUDH GARRETT PA-C Service: Emergency Medicine Author Type: Physician Aerospace Manager Type: ED Provider Notes Filed: 07/28/2023 15:29 Note Text: ED Provider Note Patient Name: Mckinley Roman : 1985 SERVICE DATE: 07/28/23 History Patient presents with: Sent By Md: Sent by [facility] for positive TB test 38-year-old male with history of alcohol abuse presenting to the emergency department for evaluation of positive blood TB test. Per patient, he was recently admitted to [facility] and had a blood test which is positive for TB. He states he has had this in the past and has had multiple chest x-rays to confirm that he does not have active TB. He was sent to the ED for chest x-ray today. Patient states he is completely asymptomatic. He has no fever, chills, cough, hemoptysis, night sweats or weight loss. Denies any concerns. PAST MEDICAL HISTORY Diagnosis Date Alcohol abuse Psychiatric disorder No past surgical history on file. No family history on file. Social History Tobacco Use Smoking status: Some Days Types: Cigarettes Smokeless tobacco: Never Vaping Use Vaping Use: current everyday user Substances: Nicotine, Flavoring Devices: Disposable Substance and Sexual Activity Alcohol use: Yes Comment: 3- fifths daily- whiskey Drug use: Yes Types: Cocaine, Amphetamines Sexual activity: Not on file ALLERGIES No Known Allergies Review of Systems Constitutional: Negative for appetite change, chills, fever and unexpected weight change. Respiratory: Negative for cough, shortness of breath and wheezing. Cardiovascular: Negative for chest pain. Gastrointestinal: Negative for abdominal pain, diarrhea, nausea and vomiting. Musculoskeletal: Negative for back pain. Skin: Negative for rash. Neurological: Negative for weakness, numbness and headaches. Physical Exam Vitals [07/28/23 1400] BP Pulse Temp Temp src Resp SpO2 Weight Height 139/64 74 36.8 ?C (98.2 ?F) Axillary 18 100 % -- -- Physical Exam Vitals and nursing note reviewed. Constitutional: General: He is not in acute distress. Appearance: He is well-developed. He is not diaphoretic. HENT: Head: Normocephalic and atraumatic. Mouth/Throat: Mouth: Mucous membranes are moist. Eyes: Conjunctiva/sclera: Conjunctivae normal. Cardiovascular: Rate and Rhythm: Normal rate and regular rhythm. Pulmonary: Effort: Pulmonary effort is normal. No respiratory distress. Breath sounds: Normal breath sounds. No wheezing. Abdominal: General: There is no distension. Palpations: Abdomen is soft. Tenderness: There is no abdominal tenderness. Musculoskeletal: General: Normal range of motion. Cervical back: Normal range of motion. Skin: General: Skin is warm and dry. Findings: No rash. Neurological: Mental Status: He is alert. 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 He arrives afebrile and nontoxic-appearing. He is asymptomatic. No history of fever, weight loss, night sweats or hemoptysis. Chest x-ray is negative today. No evidence of cavitary lesion. Will discharge. History and Record Review External record(s) reviewed: prior outpatient record. Findings from review of outpatient records: hx alcohol abuse Differential Diagnoses - pos blood tb is more likely for the following reason(s): consistent with laboratory studies - active TB is less likely for the following reason(s): HANDP not suggestive and no evidence on imaging Disposition The patient was discharged. Counseled patient regarding radiology results and suspected diagnosis. SIGNATURE: GILBERTO Delgado LAUREN 07/28/23 1529 Normal [facility] XR CHEST 1V FRONTAL PORTon 0 07-28-2023 XR CHEST 1V FRONTAL PORT * * *Final Report* * * DATE OF EXAM: Jul 28 2023 2:31PM EUX [id number] - XR CHEST 1V FRONTAL PORT / PROCEDURE REASON: Shortness of breath * * * * Physician Interpretation * * * * RESULT: EXAMINATION: CHEST RADIOGRAPH (PORTABLE SINGLE VIEW AP) Exam Date/Time: 07/28/2023 2:31 PM CLINICAL HISTORY: Shortness of breath MQ: XCPR_5 Comparison: None RESULT: Lines, tubes, and devices: None. Lungs and pleura: Lungs appear clear. There is no infiltrate, pleural effusion or pneumothorax. Mild elevation of the right hemidiaphragm. Cardiomediastinal silhouette: Normal cardiomediastinal silhouette. Other: No acute osseous abnormality. IMPRESSION: NO EVIDENCE OF ACTIVE OR CHRONIC CHEST DISEASE. Transcribed Using Voice Recognition Transcribe Date/Time: Jul 28 2023 2:53P Dictated by: YESSICA NICHOLAS MD This examination was interpreted and the report reviewed and electronically signed by: YESSICA NICHOLAS MD on Jul 28 2023 2:53PM EST [id number] Normal [facility] CBC W Auto Differential pane l (Bld)on 07-17-2023 Basophils (Bld) [#/Vol] 0.05 10*3/uL Normal <0.11 [facility] Comment on above: Order Comment: Speci men Type: BLOOD SPECIMEN Ordering Facility: [facility] Address: [address] [place] [address] Performed By: #### 5 643-2, 89122-8 #### [facility] CLIA [id number] [place] [address] [place] Basophils/100 WBC (Bld) 0.5 % Normal [facility] Comment on above: Order Comment: Speci men Type: BLOOD SPECIMEN Ordering Facility: [facility] Address: [address] [place] [address] Performed By: #### 5 643-2, 63679-8 #### [facility] CLIA [id number] [place] [address] [place] Differential cell count method Nom (Bld) Auto Normal [facility] Comment on above: Order Comment: Speci men Type: BLOOD SPECIMEN Ordering Facility: [facility] Address: [address] [place] [address] Performed By: #### 5 643-2, 40955-7 #### [facility] CLIA [id number] [place] [address] [place] Eosinophils (Bld) [#/Vol] 0.03 10*3/uL Normal <0.46 [facility] Comment on above: Order Comment: Speci men Type: BLOOD SPECIMEN Ordering Facility: [facility] Address: [address] [place] [address] Performed By: #### 5 643-, 58632-2 #### [facility] CLIA [id number] [place] [address] [place] Eosinophils/100 WBC (Bld) 0.3 % Normal [facility] Comment on above: Order Comment: Speci men Type: BLOOD SPECIMEN Ordering Facility: [facility] Address: [address] [place] [address] Performed By: #### 5 643-2, #### [facility] CLIA [id number] [place] [address] [place] Erythrocyte distribution width (RBC) [Ratio] 14.1 % Normal 11.5-15.0 [facility] Comment on above: Order Comment: Speci men Type: BLOOD SPECIMEN Ordering Facility: [facility] Address: [address] [place] [address] Performed By: #### 5 643-2, 86606-7 #### [facility] CLIA [id number] [place] [address] [place] Hematocrit (Bld) [Volume fraction] 46.1 % Normal 39.0-51.0 [facility] Comment on above: Order Comment: Speci men Type: BLOOD SPECIMEN Ordering Facility: [facility] Address: [address] [place] [address] Performed By: #### 5 643-2, 95282-8 #### [facility] CLIA [id number] [place] [address] [place] Hemoglobin (Bld) [Mass/Vol] 16.5 g/dL Normal 13.0-17.0 [facility] Comment on above: Order Comment: Speci men Type: BLOOD SPECIMEN Ordering Facility: [facility] Address: [address] [place] [address] Performed By: #### 5 643-2, 23295-5 #### [facility] CLIA [id number] [address] [place] [address] [place] Immature granulocytes (Bld) [#/Vol] 0.03 10*3/uL Normal <0.10 [facility] Comment on above: Order Comment: Speci men Type: BLOOD SPECIMEN Ordering Facility: [facility] Address: [address] [place] [address] Performed By: #### 5 643-2, 69150-8 #### [facility] CLIA [id number] [address] [place] [address] [place] Immature granulocytes/100 WBC (Bld) 0.3 % Normal [facility] Comment on above: Order Comment: Speci men Type: BLOOD SPECIMEN Ordering Facility: [facility] Address: [address] [place] [address] Performed By: #### 5 643-2, 03715-2 #### [facility] CLIA [id number] [place] [address] [place] Lymphocytes (Bld) [#/Vol] 1.94 10*3/uL Normal 1.00-4.00 [facility] Comment on above: Order Comment: Speci men Type: BLOOD SPECIMEN Ordering Facility: [facility] Address: [address] [place] [address] Performed By: #### 5 643-2, 49281-2 #### [facility] CLIA [id number] [place] Lymphocytes/100 WBC (Bld) 21.0 % Normal [facility] Comment on above: Order Comment: Speci men Type: BLOOD SPECIMEN Ordering Facility: [facility] Address: [address] [place] [address] Performed By: #### 5 643-2, 38198-8 #### [facility] CLIA [id number] [place] [address] [place] MCH (RBC) [Entitic mass] 30.3 pg Normal 26.0-34.0 [facility] Comment on above: Order Comment: Speci men Type: BLOOD SPECIMEN Ordering Facility: [facility] Address: [address] [place] [address] Performed By: #### 5 643-2, 20676-2 #### [facility] CLIA [id number] [address] [place] [address] [place] MCHC (RBC) [Mass/Vol] 35.8 g/dL Normal 30.5-36.0 [facility] Comment on above: Order Comment: Speci men Type: BLOOD SPECIMEN Ordering Facility: [facility] Address: [address] [place] [address] Performed By: #### 5 643-2, 73513-7 #### [facility] CLIA [id number] [place] [address] [place] MCV (RBC) [Entitic vol] 84.7 fL Normal 80.0-100.0 [facility] Comment on above: Order Comment: Speci men Type: BLOOD SPECIMEN Ordering Facility: [facility] Address: [address] [place] [address] Performed By: #### 5 643-2, 19219-1 #### [facility] CLIA [id number] [place] [address] [place] Monocytes (Bld) [#/Vol] 0.80 10*3/uL Normal <0.87 [facility] Comment on above: Order Comment: Speci men Type: BLOOD SPECIMEN Ordering Facility: [facility] Address: [address] [place] [address] Performed By: #### 5 643-2, 84277-3 #### [facility] CLIA [id number] [place] [address] [place] Monocytes/100 WBC (Bld) 8.7 % Normal [facility] Comment on above: Order Comment: Speci men Type: BLOOD SPECIMEN Ordering Facility: [facility] Address: [address] [place] [address] Performed By: #### 5 643-2, 90741-8 #### [facility] CLIA [id number] [address] [place] [address] [place] Neutrophils (Bld) [#/Vol] 6.37 10*3/uL Normal 1.45-7.50 [facility] Comment on above: Order Comment: Speci men Type: BLOOD SPECIMEN Ordering Facility: [facility] Address: [address] [place] [address] Performed By: #### 5 643-2, 85858-0 #### [facility] CLIA [id number] [address] [place] [address] [place] Neutrophils/100 WBC (Bld) 69.2 % Normal [facility] Comment on above: Order Comment: Speci men Type: BLOOD SPECIMEN Ordering Facility: [facility] Address: [address] [place] [address] Performed By: #### 5 643-2, 40701-0 #### [facility] CLIA [id number] [address] [place] [address] [place] Nucleated RBC (Bld) [#/Vol] 10*3/uL Normal <0.01 [facility] Comment on above: Order Comment: Speci men Type: BLOOD SPECIMEN Ordering Facility: [facility] Address: [address] [place] [address] Performed By: #### 5 643-2, 13108-7 #### [facility] CLIA [id number] [place] [address] [place] Nucleated RBC/100 WBC (Bld) [Ratio] 0.0 /100 WBC Normal [facility] Comment on above: Order Comment: Speci men Type: BLOOD SPECIMEN Ordering Facility: [facility] Address: [address] [place] [address] Performed By: #### 5 643-2, 50868-0 #### [facility] CLIA [id number] [address] [place] [address] [place] Platelet mean volume (Bld) [Entitic vol] 8.3 fL Low 9.0-12.7 [facility] Comment on above: Order Comment: Speci men Type: BLOOD SPECIMEN Ordering Facility: [facility] Address: [address] [place] [address] Performed By: #### 5 643-2, 49631-9 #### [facility] CLIA [id number] [address] [place] [address] [place] Platelets (Bld) [#/Vol] 280 10*3/uL Normal 150-400 [facility] Comment on above: Order Comment: Speci men Type: BLOOD SPECIMEN Ordering Facility: [facility] Address: [address] [place] [address] Performed By: #### 5 643-2, 28564-5 #### [facility] CLIA [id number] [address] [place] [address] [place] RBC (Bld) [#/Vol] 5.44 10*6/uL Normal 4.20-6.00 [facility] Comment on above: Order Comment: Speci men Type: BLOOD SPECIMEN Ordering Facility: [facility] Address: [address] [place] [address] Performed By: #### 5 643-2, 87827-4 #### [facility] CLIA [id number] [place] [address] [place] WBC (Bld) [#/Vol] 9.22 10*3/uL Normal 3.70-11.00 [facility] Comment on above: Order Comment: Speci men Type: BLOOD SPECIMEN Ordering Facility: [facility] Address: [address] [place] [address] Performed By: #### 5 643-2, 88028-3 #### [facility] CLIA [id number] [address] [place] [id number] [place] CK SerPl-cCncon 07-17-2023 CK [Catalytic activity/Vol] 375 U/L High 51-298 [facility] Comment on above: Order Comment: Speci men Type: BLOOD SPECIMEN Ordering Facility: [facility] Address: [address] [place] [address] Performed By: #### 5 643-2, 2157-6, 16496-1, 3040-3 #### [facility] CLIA [id number] [address] [place] [id number] [place] Comprehensive metabolic 2000 panelon 07-17-2023 Albumin [Mass/Vol] 4.9 g/dL Normal 3.9-4.9 [facility] Comment on above: Order Comment: Speci men Type: BLOOD SPECIMENOrdering Facility: [facility] Address: [address] [place] [address] Performed By: #### 5 643-2, 2157-6, 15665-4, 3040-3 ####[facility] [id number] [place] [id number] [place] ALP [Catalytic activity/Vol] 123 U/L High 38-113 [facility] Comment on above: Order Comment: Speci men Type: BLOOD SPECIMENOrdering Facility: [facility] Address: [address] [place] [address] Performed By: #### 5 643-2, 2157-6, 95320-9, 3040-3 ####[facility] [id number] [place] [id number] [place] ALT [Catalytic activity/Vol] 58 U/L High 10-54 [facility] Comment on above: Order Comment: Speci men Type: BLOOD SPECIMENOrdering Facility: [facility] Address: [address] [place] [address] Performed By: #### 5 643-2, 2156-6, 26707-0, 0-3 ####[facility] [id number] [place] [id number] [place] Anion gap [Moles/Vol] 15 mmol/L Normal 8-15 [facility] Comment on above: Order Comment: Speci men Type: BLOOD SPECIMENOrdering Facility: [facility] Address: [address] [place] [address] Performed By: #### 5 643-2, 2156-6, 81754-1, 0-3 ####[facility] [id number] [address] [place] AST [Catalytic activity/Vol] 31 U/L Normal 14-40 [facility] Comment on above: Order Comment: Speci men Type: BLOOD SPECIMENOrdering Facility: [facility] Address: [address] [place] [address] Performed By: #### 5 643-2, 2156-6, 56886-3, 0-3 ####[facility] [id number] [place] [id number] [place] Bilirubin [Mass/Vol] 0.5 mg/dL Normal 0.2-1.3 [facility] Comment on above: Order Comment: Speci men Type: BLOOD SPECIMENOrdering Facility: [facility] Address: [address] [place] [address] Performed By: #### 5 643-2, 2156-6, 71554-0, 0-3 ####[facility] [id number] [place] [id number] [place] Calcium [Mass/Vol] 9.1 mg/dL Normal 8.5-10.2 [facility] Comment on above: Order Comment: Speci men Type: BLOOD SPECIMENOrdering Facility: [facility] Address: [address] [place] [address] Performed By: #### 5 643-2, 2157-6, 37213-3, 0-3 ####[facility] [id number] [place] [id number] [place] Chloride [Moles/Vol] 103 mmol/L Normal 98-107 [facility] Comment on above: Order Comment: Speci men Type: BLOOD SPECIMENOrdering Facility: [facility] Address: [address] [place] [address] Performed By: #### 5 643-2, 7-6, 79148-0, 3040-3 ####[facility] [id number] [place] [id number] [place] CO2 [Moles/Vol] 22 mmol/L Normal 22-30 [facility] Comment on above: Order Comment: Speci men Type: BLOOD SPECIMENOrdering Facility: [facility] Address: [address] [place] [address] Performed By: #### 5 643-2, 7-6, 97572-8, 3040-3 ####[facility]CLIA [id number] [place] [id number] [place] Creatinine [Mass/Vol] 1.06 mg/dL Normal 0.73-1.22 [facility] Comment on above: Order Comment: Speci men Type: BLOOD SPECIMENOrdering Facility: [facility] Address: [address] [place] [address] Performed By: #### 5 643-2, 2157-6, 92316-1, 3040-3 ####[facility]CLIA [id number] [place] [id number] [facility] Creatinine and Glomerular filtration rate.predicted panel (S/P/Bld) 92 mL/min/1.73m??? Normal >=60 [facility] Comment on above: Order Comment: Speci men Type: BLOOD SPECIMENOrdering Facility: [facility] Address: [address] [place] [id number] Result Comment: Shi mated Glomerular Filtration Rate (eGFR) is calculated using the 2020 CKD-EPI creatinine equation. This equation utilizes serum creatinine, sex, and age as parameters. The creatinine assay has traceable calibration to isotope dilution-mass spectrometry. Refer to KDIGO guidelines for clinical interpretation. In patients with unstable renal function, e.g. those with acute kidney injury, the eGFR may not accurately reflect actual GFR. Performed By: #### 5 643-2, 2156-6, 70379-4, 3039-3 ####[facility] [id number] [place] [id number] [place] Glucose [Mass/Vol] 110 mg/dL High 74-99 [facility] Comment on above: Order Comment: Michelle roberts Type: BLOOD SPECIMENOrdering Facility: [facility] Address: [address] [place] [address] Result Comment: The [place] [employer] (ADA) provides guidance for cutoff values for fasting glucose and random glucose. The ADA defines fasting as no caloric intake for at least 8 hours. Fasting plasma glucose results between 100 to 125 mg/dL indicate increased risk for diabetes (prediabetes). Fasting plasma glucose results greater than or equal to 126 mg/dL meet the criteria for diagnosis of diabetes. In the absence of unequivocal hyperglycemia, results should be confirmed by repeat testing. In a patient with classic symptoms of hyperglycemia or hyperglycemic crisis, random plasma glucose results greater than or equal to 200 mg/dL meet the criteria for diagnosis of diabetes. Reference: Standards of Medical Care in Diabetes 2016, [place] [employer]. Diabetes Care. 2016.39(Suppl 1). Performed By: #### 5 643-2, 2156-6, 51564-9, 3039-3 ####[facility] [id number] [place] [id number] [place] Potassium [Moles/Vol] 3.9 mmol/L Normal 3.7-5.1 [facility] Comment on above: Order Comment: Michelle roberts Type: BLOOD SPECIMENOrdering Facility: [facility] Address: [address] [place] [address] Performed By: #### 5 643-2, 7-6, 33050-7, 3040-3 ####[facility] [id number] [place] [address] [place] Protein [Mass/Vol] 8.1 g/dL High 6.3-8.0 [facility] Comment on above: Order Comment: Speci men Type: BLOOD SPECIMENOrdering Facility: [facility] Address: [address] [place] [address] Performed By: #### 5 643-2, 2157-6, 13073-8, 3040-3 ####[facility] [id number] [place] [id number] [place] Sodium [Moles/Vol] 140 mmol/L Normal 136-144 [facility] Comment on above: Order Comment: Speci men Type: BLOOD SPECIMENOrdering Facility: [facility] Address: [address] [place] [address] Performed By: #### 5 643-2, 2157-6, 62089-7, 3040-3 ####[facility] [id number] [place] [id number] [place] Urea nitrogen [Mass/Vol] 13 mg/dL Normal 9-24 [facility] Comment on above: Order Comment: Speci men Type: BLOOD SPECIMENOrdering Facility: [facility] Address: [address] [place] [address] Performed By: #### 5 643-2, 2157-6, 59642-2, 3040-3 ####[facility] [id number] [place] [address] [place] ED NOTEon 07-17-2023 ED NOTE HNO ID: [id number] Author: LETY BRUMFIELD RN Service: ? Author Type: Registered Nurse Type: ED Notes Filed: 07/17/2023 14:13 Note Text: Pt provided with discharge instructions, belongings provided to pt and PD at bedside to escort pt out of ED. Normal [facility] ED NOTE HNO ID: [id number] Author: CHAPIS BETANCUR RN Service: ? Author Type: Registered Nurse Type: ED Notes Filed: 07/17/2023 13:44 Note Text: Pt provided with hot meal tray. [facility] ED NOTE HNO ID: [id number] Author: LETY BRUMFIELD RN Service: ? Author Type: Registered Nurse Type: ED Notes Filed: 07/17/2023 12:58 Note Text: Pt on phone with intake. [facility] ED NOTE HNO ID: [id number] Author: LETY BRUMFIELD RN Service: ? Author Type: Registered Nurse Type: ED Notes Filed: 07/17/2023 12:59 Note Text: Pt outside of room requesting food today. [facility] ED NOTE HNO ID: [id number] Author: JULIA NGUYEN RN Service: ? Author Type: Registered Nurse Type: ED Notes Filed: 07/17/2023 09:32 Note Text: Spoke to intake regarding patient, awaiting alcohol level <150. [facility] ED NOTE HNO ID: [id number] Author: MARTHA LARKIN RN Service: ? Author Type: Registered Nurse Type: ED Notes Filed: 07/17/2023 06:49 Note Text: Pt observed asleep in the bed [facility] ED NOTE HNO ID: [id number] Author: MARTHA LARKIN RN Service: ? Author Type: Registered Nurse Type: ED Notes Filed: 07/17/2023 06:51 Note Text: Pt informed about urine sample [facility] ED NOTE HNO ID: [id number] Author: NANY JACOBSON JR, RN Service: Emergency Medicine Author Type: Registered Nurse Type: ED Notes Filed: 07/17/2023 05:38 Note Text: -Pt requested to provide urine sample when able. [facility] ED NOTE HNO ID: [id number] Author: MARTHA LARKIN RN Service: ? Author Type: Registered Nurse Type: ED Notes Filed: 07/17/2023 07:00 Note Text: Per Dr Bajwa no cottage master needed. [facility] ED NOTE HNO ID: [id number] Author: ELFEGO HYLTON, Fredrick Service: ? Author Type: Jewel Hole Cornerer and Application Packaging Specialist Type: ED Notes Filed: 07/17/2023 05:00 Note Text: Pt walked into ER requesting help with his alcoholism. Pt states last drink was 10 minutes ago. Pt states he had suicidal thoughts without specific plan. 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 Primary symptoms include no seizures, no weakness, no agitation, no hallucinations. This is a chronic problem. The current episode started 1 to 2 hours ago. The problem has not changed since onset.Suspected agents include alcohol. Pertinent negatives include no fever, no injury, no nausea, no vomiting, no bladder incontinence and no bowel incontinence. Associated medical issues include mental illness. Associated medical issues do not include psychiatric history or recent illness. PAST MEDICAL HISTORY Diagnosis Date - Alcohol abuse - Psychiatric disorder No past surgical history on file. No family history on file. Social History Tobacco Use - Smoking status: Some Days Types: Cigarettes - Smokeless tobacco: Never Vaping Use - Vaping Use: current everyday user - Substances: Nicotine, Flavoring - Devices: Disposable Substance and Sexual Activity - Alcohol use: Yes Comment: 3- fifths daily- whiskey - Drug use: Yes Types: Cocaine, Amphetamines - Sexual activity: Not on file ALLERGIES No Known Allergies Review of Systems Constitutional: Positive for activity change. Negative for chills, fatigue and fever. HENT: Negative for congestion. Eyes: Negative for visual disturbance. Respiratory: Negative for apnea, choking and shortness of breath. Cardiovascular: Negative for chest pain and palpitations. Gastrointestinal: Negative for abdominal pain, bowel incontinence, diarrhea, nausea and vomiting. Genitourinary: Negative for bladder incontinence, dysuria, frequency, hematuria and urgency. Musculoskeletal: Negative for back pain, myalgias and neck stiffness. Skin: Negative for color change and rash. Neurological: Negative for dizziness, seizures, weakness and light-headedness. Psychiatric/Behavioral: Negative for agitation, behavioral problems, hallucinations and suicidal ideas. All other systems reviewed and are negative. Physical Exam Vitals [07/17/23 0457] BP Pulse Temp Temp src Resp SpO2 Weight Height 148/96 (!) 99 -- -- 16 100 % -- -- Physical Exam Vitals and nursing note reviewed. Constitutional: General: He is not in acute distress. Appearance: He is well-developed. He is not ill-appearing, toxic-appearing or diaphoretic. HENT: Head: Normocephalic and atraumatic. Eyes: Pupils: Pupils are equal, round, and reactive to light. Cardiovascular: Rate and Rhythm: Normal rate and regular rhythm. Heart sounds: Normal heart sounds. Pulmonary: Effort: Pulmonary effort is normal. No respiratory distress. Breath sounds: No wheezing or rales. Abdominal: General: Bowel sounds are normal. Palpations: Abdomen is soft. Musculoskeletal: General: Normal range of motion. Cervical back: Normal range of motion and neck supple. No rigidity. Lymphadenopathy: Cervical: No cervical adenopathy. Skin: General: Skin is warm. Capillary Refill: Capillary refill takes less than 2 seconds. Coloration: Skin is not jaundiced. Findings: No bruising or lesion. Neurological: Mental Status: He is alert and oriented to person, place, and time. Cranial Nerves: No cranial nerve deficit. Sensory: No sensory deficit. Motor: No weakness. Coordination: Coordination normal. Psychiatric: Behavior: Behavior normal. Thought Content: Thought content normal. Judgment: Judgment normal. Diagnostic Testing ED Labs Ordered and Reviewed - No data to display Procedures ED Course / Clinical Impression ED Course as of 07/17/23 1408 Kayla Mauro's Documentation Sat Jul 17, 2023 1358 D/w intake. Currently patient declined for inpatient treatment due to multiple prior admissions, usually leaves AMA and has been threatening to staff at different facilities. Clinical Impressions as of 07/17/23 1408 Alcoholic intoxication without complication (HCC) Hypertension, unspecified type Hyperglycemia Elevated CK MDM / Disposition / Plan Patient to be reevaluated for admission History and Record Review External record(s) reviewed: prior outpatient record. Findings from review of outpatient records: reviewed Differential Diagnoses - alco intox Management I performed an independent interpretation of the following:see ED course All Labs ED Labs Ordered and Reviewed TOXICOLOGY SCREEN, ROUTINE URINE - Abnormal Result Value Phencyclidine Urine Negative Benzodi (more content not included)... Normal [facility] Ethanol SerPl-mCncon 07-16-2 024 Ethanol [Mass/Vol] 161 mg/dL High <11 [facility] Comment on above: Order Comment: Speci men Type: BLOOD SPECIMEN Ordering Facility: [facility] Address: [address] [place] [address] Result Comment: Valu es > 80 mg/dL may indicate intoxication Performed By: #### 5 643-2, 05901-9 #### [facility] CLIA [id number] [place] [address] [place] Ethanol [Mass/Vol] 235 mg/dL High <11 [facility] Comment on above: Order Comment: Speci men Type: BLOOD SPECIMEN Ordering Facility: [facility] Address: [address] [place] [address] Result Comment: Valu es > 80 mg/dL may indicate intoxication Performed By: #### 5 643-2, 2157-6, 04325-8, 3040-3 #### [facility] CLIA [id number] [place] [address] [place] Lipase SerPl-cCncon 07-17-19 24 Lipase [Catalytic activity/Vol] 19 U/L Normal 16-61 [facility] Comment on above: Order Comment: Speci men Type: BLOOD SPECIMENOrdering Facility: [facility] Address: [address] [place] [address] Performed By: #### 5 643-2, 2157-6, 14392-9, 3040-3 ####[facility]ORYCLIA [id number] [place] [id number] [place] Magnesium SerPl-mCncon 07-16 Magnesium [Mass/Vol] 2.2 mg/dL Normal 1.7-2.3 [facility] Comment on above: Order Comment: Speci men Type: BLOOD SPECIMENOrdering Facility: [facility] Address: [address] [place] [address] Performed By: #### 1 9123-9 ####[facility] [id number] [place] [address] [place] TOXICOLOGY SCREEN, ROUTINE U RINEon 07-17-2023 Amphetamines Confirm (U) [Mass/Vol] Negative Normal Negative [facility] Comment on above: Order Comment: Speci men Type: URINE SPECIMEN Ordering Facility: [facility] Address: [address] [place] [address] Result Comment: Cuto ff threshold at 1000 ng/mL. Performed By: #### U TOX2 #### [facility] CLIA [id number] [address] [place] [address] [place] BARBITURATES, URINE Positive Abnormal Negative [facility] Comment on above: Order Comment: Speci men Type: URINE SPECIMEN Ordering Facility: [facility] Address: [address] [place] [address] Result Comment: Cuto ff threshold at 200 ng/mL. Performed By: #### U TOX2 #### [facility] CLIA [id number] [place] [address] [place] BENZODIAZEPINES, UR Positive Abnormal Negative [facility] Comment on above: Order Comment: Speci men Type: URINE SPECIMEN Ordering Facility: [facility] Address: [address] [place] [address] Result Comment: Cuto ff threshold at 200 ng/mL. Performed By: #### U TOX2 #### [facility] CLIA [id number] [place] [address] [place] Cannabinoids Screen Ql (U) Negative Normal Negative [facility] Comment on above: Order Comment: Speci men Type: URINE SPECIMEN Ordering Facility: [facility] Address: [address] [place] [address] Result Comment: Cuto ff threshold at 50 ng/mL. Performed By: #### U TOX2 #### [facility] CLIA [id number] [address] [place] [address] [place] Cocaine Ql (U) Negative Normal Negative [facility] Comment on above: Order Comment: Speci men Type: URINE SPECIMEN Ordering Facility: [facility] Address: [address] [place] [address] Result Comment: Cuto ff threshold at 300 ng/mL. Performed By: #### U TOX2 #### [facility] CLIA [id number] [address] [place], [place] [address] [place] Ethanol (U) [Mass/Vol] 226 mg/dL High <11 [facility] Comment on above: Order Comment: Speci men Type: URINE SPECIMEN Ordering Facility: [facility] Address: [address] [place] [address] Performed By: #### U TOX2 #### [facility] CLIA [id number] [address] [place] [address] [place] Opiates Screen Ql (U) Negative Normal Negative [facility] Comment on above: Order Comment: Speci men Type: URINE SPECIMEN Ordering Facility: [facility] Address: [address] [place] [address] Result Comment: Cuto ff threshold at 300 ng/mL. Performed By: #### U TOX2 #### [facility] CLIA [id number] [address] [place] [address] [place] oxyCODONE cutoff Screen (U) [Mass/Vol] Negative Normal Negative [facility] Comment on above: Order Comment: Speci men Type: URINE SPECIMEN Ordering Facility: [facility] Address: [address] [place] [address] Result Comment: Cuto ff threshold at 100 ng/mL. Performed By: #### U TOX2 #### [facility] CLIA [id number] [address] [place] [address] [place] Phencyclidine Ql (U) Negative Normal Negative [facility] Comment on above: Order Comment: Speci men Type: URINE SPECIMEN Ordering Facility: [facility] Address: [address] [place] [address] Result Comment: Cuto ff threshold at 25 ng/mL. Performed By: #### U TOX2 #### [facility] CLIA [id number] [place] Urinalysis complete panel (U )on 07-17-2023 Bilirubin Ql (U) Negative Normal Negative [facility] Comment on above: Order Comment: Speci men Type: BLOOD SPECIMEN Ordering Facility: [facility] Address: [address] [place] [address] Performed By: #### 5 643-2, 75579-1 #### [facility] CLIA [id number] [place] [address] [place] Clarity (Unsp spec) Clear Normal Clear [facility] Comment on above: Order Comment: Speci men Type: BLOOD SPECIMEN Ordering Facility: [facility] Address: [address] [place] [address] Performed By: #### 5 643-2, 78515-6 #### [facility] CLIA [id number] [place] [address] [place] Color (U) Light Yellow Normal yellow [facility] Comment on above: Order Comment: Speci men Type: BLOOD SPECIMEN Ordering Facility: [facility] Address: [address] [place] [address] Performed By: #### 5 643-2, 41455-6 #### [facility] CLIA [id number] [place] Glucose Test strip (U) [Mass/Vol] Negative Normal Trace, Negative [facility] Comment on above: Order Comment: Speci men Type: BLOOD SPECIMEN Ordering Facility: [facility] Address: [address] [place] [address] Performed By: #### 5 643-2, 67518-3 #### [facility] CLIA [id number] [place] Hemoglobin Ql (U) Negative Normal Negative, Trace [facility] Comment on above: Order Comment: Speci men Type: BLOOD SPECIMEN Ordering Facility: [facility] Address: [address] [place] [address] Performed By: #### 5 643-2, 28773-8 #### [facility] CLIA [id number] [place] [address] [place] Ketones Ql (U) Negative Normal Negative, Trace [facility] Comment on above: Order Comment: Speci men Type: BLOOD SPECIMEN Ordering Facility: [facility] Address: [address] [place] [address] Performed By: #### 5 643-2, 92094-0 #### [facility] CLIA [id number] [place] [address] [place] Leukocyte esterase Test strip Ql (U) Negative Normal Negative, 25 Traci/uL [facility] Comment on above: Order Comment: Speci men Type: BLOOD SPECIMEN Ordering Facility: [facility] Address: [address] [place] [address] Performed By: #### 5 643-2, 20845-7 #### [facility] CLIA [id number] [address] [place] [address] [place] Nitrite Ql (U) Negative Normal Negative [facility] Comment on above: Order Comment: Speci men Type: BLOOD SPECIMEN Ordering Facility: [facility] Address: [address] [place] [address] Performed By: #### 5 643-2, 46358-6 #### [facility] CLIA [id number] [address] [place] [address] [place] pH (U) 6.0 [pH] Normal 5.0-8.0 [facility] Comment on above: Order Comment: Speci men Type: BLOOD SPECIMEN Ordering Facility: [facility] Address: [address] [place] [address] Performed By: #### 5 643-2, 90106-3 #### [facility] CLIA [id number] [address] [place] [address] [place] Protein (U) [Mass/Vol] Negative Normal Trace, Negative [facility] Comment on above: Order Comment: Speci men Type: BLOOD SPECIMEN Ordering Facility: [facility] Address: [address] [place] [address] Performed By: #### 5 643-2, 91887-2 #### [facility] CLIA [id number] [place] RBC LM.HPF (Urine sed) [#/Area] 0-3 /HPF Normal 0-3 /HPF [facility] Comment on above: Order Comment: Speci men Type: BLOOD SPECIMEN Ordering Facility: [facility] Address: [address] [place] [address] Performed By: #### 5 643-2, 95164-8 #### [facility] CLIA [id number] [place] [address] [place] Specific gravity (U) [Rel density] 1.016 Normal 1.005-1.030 [facility] Comment on above: Order Comment: Speci men Type: BLOOD SPECIMEN Ordering Facility: [facility] Address: [address] [place] [address] Performed By: #### 5 643-, 99611-3 #### [facility] CLIA [id number] [address] [place] [address] [place] Urobilinogen Ql (U) Normal Normal Normal [facility] Comment on above: Order Comment: Speci men Type: BLOOD SPECIMEN Ordering Facility: [facility] Address: [address] [place] [address] Performed By: #### 5 643-2, 55361-0 #### [facility] CLIA [id number] [address] [place] [address] [place] WBC LM.HPF (Urine sed) [#/Area] 0-5 /HPF Normal 0-5 /HPF [facility] Comment on above: Order Comment: Speci men Type: BLOOD SPECIMEN Ordering Facility: [facility] Address: [address] [place] [address] Performed By: #### 5 643-2, 30693-6 #### [facility] CLIA [id number] [place] [address] [place] CBC panel Auto (Bld)on 07-15 Erythrocyte distribution width (RBC) [Ratio] 13.9 % Normal 11.5-15.0 [facility] Comment on above: Order Comment: Speci men Type: BLOOD SPECIMENOrdering Facility: [facility] Address: [address] [place] [address] Performed By: #### 5 8410-2 ####[facility] [id number] [address] [place] Hematocrit (Bld) [Volume fraction] 45.1 % Normal 39.0-51.0 [facility] Comment on above: Order Comment: Speci men Type: BLOOD SPECIMENOrdering Facility: [facility] Address: [address] [place] [address] Performed By: #### 5 8410-2 ####[facility] [id number] [address] [place] Hemoglobin (Bld) [Mass/Vol] 16.2 g/dL Normal 13.0-17.0 [facility] Comment on above: Order Comment: Speci men Type: BLOOD SPECIMENOrdering Facility: [facility] Address: [address] [place] [address] Performed By: #### 5 8410-2 ####[facility] [id number] [address] [place] MCH (RBC) [Entitic mass] 30.1 pg Normal 26.0-34.0 [facility] Comment on above: Order Comment: Speci men Type: BLOOD SPECIMENOrdering Facility: [facility] Address: [address] [place] [address] Performed By: #### 5 8410-2 ####[facility] [id number] [address] [place] MCHC (RBC) [Mass/Vol] 35.9 g/dL Normal 30.5-36.0 [facility] Comment on above: Order Comment: Speci men Type: BLOOD SPECIMENOrdering Facility: [facility] Address: [address] [place] [address] Performed By: #### 5 8410-2 ####[facility] [id number] [place] [id number] [facility] [place] MCV (RBC) [Entitic vol] 83.7 fL Normal 80.0-100.0 [facility] Comment on above: Order Comment: Speci men Type: BLOOD SPECIMENOrdering Facility: [facility] Address: [address] [place] [address] Performed By: #### 5 8410-2 ####[facility] [id number] [place] [address] [place] Nucleated RBC (Bld) [#/Vol] 10*3/uL Normal <0.01 [facility] Comment on above: Order Comment: Speci men Type: BLOOD SPECIMENOrdering Facility: [facility] Address: [address] [place] [address] Performed By: #### 5 8410-2 ####[facility] [id number] [place] [address] [place] Platelet mean volume (Bld) [Entitic vol] 8.1 fL Low 9.0-12.7 [facility] Comment on above: Order Comment: Speci men Type: BLOOD SPECIMENOrdering Facility: [facility] Address: [address] [place] [address] Performed By: #### 5 8410-2 ####[facility] [id number] [place] [address] [place] Platelets (Bld) [#/Vol] 259 10*3/uL Normal 150-400 [facility] Comment on above: Order Comment: Speci men Type: BLOOD SPECIMENOrdering Facility: [facility] Address: [address] [place] [address] Performed By: #### 5 8410-2 ####[facility] [id number] [place] [address] [place] RBC (Bld) [#/Vol] 5.39 10*6/uL Normal 4.20-6.00 [facility] Comment on above: Order Comment: Speci men Type: BLOOD SPECIMENOrdering Facility: [facility] Address: [address] [place] [address] Performed By: #### 5 8410-2 ####[facility] [id number] [place] [id number] [place] WBC (Bld) [#/Vol] 6.25 10*3/uL Normal 3.70-11.00 [facility] Comment on above: Order Comment: Speci men Type: BLOOD SPECIMENOrdering Facility: [facility] Address: [address] [place] [address] Performed By: #### 5 8410-2 ####[facility] [id number] [place] [id number] [facility] [place] Comprehensive metabolic 2000 panelon 07-16-2023 Albumin [Mass/Vol] 4.7 g/dL Normal 3.9-4.9 [facility] Comment on above: Order Comment: Speci men Type: BLOOD SPECIMEN Ordering Facility: [facility] Address: [address] [place] [address] Performed By: #### 5 643-2, 48189-8 #### [facility] CLIA [id number] [place] [address] [place] ALP [Catalytic activity/Vol] 119 U/L High 38-113 [facility] Comment on above: Order Comment: Speci men Type: BLOOD SPECIMEN Ordering Facility: [facility] Address: [address] [place] [address] Performed By: #### 5 643-2, 83077-9 #### [facility] CLIA [id number] [place] [address] [place] ALT [Catalytic activity/Vol] 58 U/L High 10-54 [facility] Comment on above: Order Comment: Speci men Type: BLOOD SPECIMEN Ordering Facility: [facility] Address: [address] [place] [address] Performed By: #### 5 643-2, #### [facility] CLIA [id number] [place] [id number] [place] Anion gap [Moles/Vol] 15 mmol/L Normal 8-15 [facility] Comment on above: Order Comment: Speci men Type: BLOOD SPECIMEN Ordering Facility: [facility] Address: [address] [place] [address] Performed By: #### 5 643-2, #### [facility] CLIA [id number] [address] [place] [address] [place] AST [Catalytic activity/Vol] 33 U/L Normal 14-40 [facility] Comment on above: Order Comment: Speci men Type: BLOOD SPECIMEN Ordering Facility: [facility] Address: [address] [place] [address] Performed By: #### 5 643-2, 18065-5 #### [facility] CLIA [id number] [place] [address] [place] Bilirubin [Mass/Vol] 0.3 mg/dL Normal 0.2-1.3 [facility] Comment on above: Order Comment: Speci men Type: BLOOD SPECIMEN Ordering Facility: [facility] Address: [address] [place] [address] Performed By: #### 5 643-2, #### [facility] CLIA [id number] [place] [address] [place] Calcium [Mass/Vol] 9.2 mg/dL Normal 8.5-10.2 [facility] Comment on above: Order Comment: Speci men Type: BLOOD SPECIMEN Ordering Facility: [facility] Address: [address] [place] [address] Performed By: #### 5 643-2, 00753-8 #### [facility] CLIA [id number] [address] [place] [address] [place] Chloride [Moles/Vol] 105 mmol/L Normal 98-107 [facility] Comment on above: Order Comment: Speci men Type: BLOOD SPECIMEN Ordering Facility: [facility] Address: [address] [place] [address] Performed By: #### 5 643-2, 87168-7 #### [facility] CLIA [id number] [place] [address] [place] CO2 [Moles/Vol] 20 mmol/L Low 22-30 [facility] Comment on above: Order Comment: Speci men Type: BLOOD SPECIMEN Ordering Facility: [facility] Address: [address] [place] [address] Performed By: #### 5 643-2, 82215-4 #### [facility] CLIA [id number] [address] [place] [address] [place] Creatinine [Mass/Vol] 1.00 mg/dL Normal 0.73-1.22 [facility] Comment on above: Order Comment: Speci men Type: BLOOD SPECIMEN Ordering Facility: [facility] Address: [address] [place] [address] Performed By: #### 5 643-2, 75432-6 #### [facility] CLIA [id number] [place] [address] [place] Creatinine and Glomerular filtration rate.predicted panel (S/P/Bld) 98 mL/min/1.73m??? Normal >=60 [facility] Comment on above: Order Comment: Speci men Type: BLOOD SPECIMEN Ordering Facility: [facility] Address: [address] [place] [address] Result Comment: Shi mated Glomerular Filtration Rate (eGFR) is calculated using the 2020 CKD-EPI creatinine equation. This equation utilizes serum creatinine, sex, and age as parameters. The creatinine assay has traceable calibration to isotope dilution-mass spectrometry. Refer to KDIGO guidelines for clinical interpretation. In patients with unstable renal function, e.g. those with acute kidney injury, the eGFR may not accurately reflect actual GFR. Performed By: #### 5 643-2, 01958-8 #### [facility] CLIA [id number] [address] [place] [address] [place] Glucose [Mass/Vol] 107 mg/dL High 74-99 [facility] Comment on above: Order Comment: Michelle roberts Type: BLOOD SPECIMEN Ordering Facility: [facility] Address: [address] [place] [address] Result Comment: The [place] [employer] (ADA) provides guidance for cutoff values for fasting glucose and random glucose. The ADA defines fasting as no caloric intake for at least 8 hours. Fasting plasma glucose results between 100 to 125 mg/dL indicate increased risk for diabetes (prediabetes). Fasting plasma glucose results greater than or equal to 126 mg/dL meet the criteria for diagnosis of diabetes. In the absence of unequivocal hyperglycemia, results should be confirmed by repeat testing. In a patient with classic symptoms of hyperglycemia or hyperglycemic crisis, random plasma glucose results greater than or equal to 200 mg/dL meet the criteria for diagnosis of diabetes. Reference: Standards of Medical Care in Diabetes 2016, [place] [employer]. Diabetes Care. 2016.39(Suppl 1). Performed By: #### 5 643-2, 07786-0 #### [facility] CLIA [id number] [address] [place] [address] [place] Potassium [Moles/Vol] 4.2 mmol/L Normal 3.7-5.1 [facility] Comment on above: Order Comment: Michelle roberts Type: BLOOD SPECIMEN Ordering Facility: [facility] Address: [address] [place] [address] Performed By: #### 5 643-2, 43451-0 #### [facility] CLIA [id number] [place] [address] [place] Protein [Mass/Vol] 7.7 g/dL Normal 6.3-8.0 [facility] Comment on above: Order Comment: Michelle roberts Type: BLOOD SPECIMEN Ordering Facility: [facility] Address: [address] [place] [address] Performed By: #### 5 643-2, 00387-0 #### [facility] CLIA [id number] [place] [address] [place] Sodium [Moles/Vol] 140 mmol/L Normal 136-144 [facility] Comment on above: Order Comment: Speci men Type: BLOOD SPECIMEN Ordering Facility: [facility] Address: [address] [place] [id number] Performed By: #### 5 643-2, 19529-1 #### [facility] CLIA [id number] [address] [place] [id number] [facility] Urea nitrogen [Mass/Vol] 12 mg/dL Normal 9-24 [facility] Comment on above: Order Comment: Speci men Type: BLOOD SPECIMEN Ordering Facility: [facility] Address: [address] [place] [address] Performed By: #### 5 643-2, 86751-1 #### [facility] CLIA [id number] [address] [place] [id number] [place] ECG COMPLETEon 07-16-2023 ECG COMPLETE Ventricular Rate : 6 5 BPM Atrial Rate : 65 BPM P-R Interval : 154 ms QRS Duration : 94 ms Q-T Interval : 414 ms QTC Calculation(Bazett) : 430 ms Calculated P [place] : 17 degrees Calculated R [place] : 51 degrees Calculated T [place] : 13 degrees NORMAL SINUS RHYTHM NORMAL ECG WHEN COMPARED WITH ECG OF 15-Jul-2023 01:44, NONSPECIFIC T WAVE ABNORMALITY NO LONGER EVIDENT IN ANTERIOR LEADS Confirmed by ESPERANZA KNOWLES MD ([id number]), technical writer and editor EMELY SANTOS ([id number]) on 07/16/2023 9:36:49 PM NAME : MCKINLEY ROMAN PID : [id number] : 1985 Gender : Male Race : ORD : [id number] Procedure Date : Jul 16 2023 17:50:43 Edit Date : Jul 16 2023 21:36:55 Diagnosis: NORMAL SINUS RHYTHM NORMAL ECG WHEN COMPARED WITH ECG OF 15-Jul-2023 01:44, NONSPECIFIC T WAVE ABNORMALITY NO LONGER EVIDENT IN ANTERIOR LEADS Confirmed by ESPERANZA KNOWLES MD ([id number]), technical writer and editor EMELY SANTOS ([id number]) on 07/16/2023 9:36:49 PM Test Reason : Arrhythmia Location : 80 : [facility] ED Overread By : ESPERANZA KNOWLES MD Edited By : EMELY SANTOS Referred By : , Acquired by : TOM FIORE [facility] ED NOTEon 07-16-2023 ED NOTE HNO ID: [id number] Author: FORREST DILL RN Service: ? Author Type: Registered Nurse Type: ED Notes Filed: 07/16/2023 19:07 Note Text: Discharge paperwork explained to Pt. Pt verbalized understanding and instructed to return to ED is condition worsens. No questions at this time. Pt departs ED with no acute distress noted. [facility] ED NOTE HNO ID: [id number] Author: ISABELLE LE RN Service: ? Author Type: Registered Nurse Type: ED Notes Filed: 07/16/2023 19:07 Note Text: Pt ambulatory out of ED with steady gait [facility] escorting patient out [facility] ED NOTE HNO ID: [id number] Author: FORREST DILL RN Service: ? Author Type: Registered Nurse Type: ED Notes Filed: 07/16/2023 18:55 Note Text: Pt demanding something for anxiety, raising voice at this RN and talking over this RN. RN talks to PT with HEART, and informed that doctor does not want to give anything for anxiety at this time. Pt continues to raise voice, provider and [facility] HNO ID: [id number] Author: FORREST DILL RN Service: ? Author Type: Registered Nurse Type: ED Notes Filed: 07/16/2023 18:49 Note Text: Pt provided with food [facility] ED NOTE HNO ID: [id number] Author: FORREST DILL RN Service: ? Author Type: Registered Nurse Type: ED Notes Filed: 07/16/2023 18:02 Note Text: Pt reports being homeless and feeling that he has no control over his drinking, states he drinks 1/5th of alcohol a day. Pt is tearful and dishelved upon assessment, denies SI/HI, but has superficial healed cuts to forearms. Pt reports depression. Pt asking for help with drinking and housing. Pt currently calm and cooperative. Pt requesting something for anxiety, provider made aware [facility] ED NOTE HNO ID: [id number] Author: FORREST DILL RN Service: ? Author Type: Registered Nurse Type: ED Notes Filed: 07/16/2023 17:46 Note Text: Tech paged for ecg. Pt aware of need for urine sample. Urinal at bedside. Pt provided with water [facility] ED NOTE HNO ID: [id number] Author: PAYAL QUEEN RN Service: ? Author Type: Registered Nurse Type: ED Notes Filed: 07/16/2023 17:11 Note Text: Pt to ED for intoxication. Pt requesting rehab and states I have depression as well . Pt DENIES SI or HI. [facility] ED PROV NOTEon 07-16-2023 ED PROV NOTE HNO ID: [id number] Author: ESPERANZA KNOWLES DO Service: Emergency Medicine Author Type: Physician Type: ED Provider Notes Filed: 07/16/2023 19:15 Note Text: ED Provider Note Patient Name: Mckinley Roman : 1985 SERVICE DATE: 07/16/23 History Patient presents with: Intoxication This is a 38-year-old male with history of psychiatric disorder, called dependency, presenting for request for rehabilitation services. Patient has been seen in multiple ED's several weeks for same complaint. Denies SI or HI. Last drink was 1 PM today. Denies any known history of withdrawal seizures or DTs. PAST MEDICAL HISTORY Diagnosis Date Alcohol abuse Psychiatric disorder History reviewed. No pertinent surgical history. No family history on file. Social History Tobacco Use Smoking status: Some Days Types: Cigarettes Smokeless tobacco: Never Vaping Use Vaping Use: current everyday user Substances: Nicotine, Flavoring Devices: Disposable Substance and Sexual Activity Alcohol use: Yes Comment: 3- fifths daily- whiskey Drug use: Yes Types: Cocaine, Amphetamines Sexual activity: Not on file ALLERGIES No Known Allergies Review of Systems Unable to perform ROS: Psychiatric disorder Physical Exam Vitals [07/16/23 1710] BP Pulse Temp Temp src Resp SpO2 Weight Height 143/91 77 37.4 ?C (99.3 ?F) Oral 22 96 % 113.4 kg (250 lb) -- Physical Exam Vitals and nursing note reviewed. HENT: Head: Normocephalic and atraumatic. Nose: Nose normal. Mouth/Throat: Mouth: Mucous membranes are dry. Pharynx: Oropharynx is clear. Eyes: Conjunctiva/sclera: Conjunctivae normal. Pupils: Pupils are equal, round, and reactive to light. Cardiovascular: Rate and Rhythm: Normal rate and regular rhythm. Pulses: Normal pulses. Pulmonary: Effort: Pulmonary effort is normal. Breath sounds: Normal breath sounds. Abdominal: Palpations: Abdomen is soft. Tenderness: There is no abdominal tenderness. Musculoskeletal: General: Normal range of motion. Cervical back: Normal range of motion. Skin: General: Skin is warm and dry. Neurological: General: No focal deficit present. Mental Status: He is alert. Gait: Gait normal. Diagnostic Testing ED Labs Ordered and Reviewed COMPLETE BLOOD COUNT - Abnormal; Notable for the following components: Result Value Ref Range MPV 8.1 (*) 9.0 - 12.7 fL All other components within normal limits COMPREHENSIVE METABOLIC PANEL - Abnormal; Notable for the following components: Alkaline Phosphatase 119 (*) 38 - 113 U/L ALT 58 (*) 10 - 54 U/L Glucose 107 (*) 74 - 99 mg/dL CO2 20 (*) 22 - 30 mmol/L All other components within normal limits TOXICOLOGY SCREEN, ROUTINE URINE - Abnormal; Notable for the following components: Benzodiazepines Urine Preliminary positive (*) Negative Barbiturates Urine Preliminary positive (*) Negative Ethanol, Urine 232 (*) <11 mg/dL All other components within normal limits Narrative: Immunoassay screen only. Cross reactivity with other substances can occur with immunoassay screening. Detection of any drug(s) in this urine toxicology panel is presumptive only. These tests are for medical purposes only and should not be used for compliance monitoring, legal, or forensic use. Samples should be within normal physiological conditions (e.g. pH). This assay does not include adulteration/specimen validity testing. In clinical settings, confirmatory testing is at the practitioner's discretion [1]. If clinically indicated, confirmation by high specificity, quantitative methodology, which includes adulteration/specimen validity testing, may be requested on the same specimen through Client Services ([phone]) if contacted within 48 hours of initial testing. [1]Substance Abuse and Mental Health Services Administration (2012). Clinical Drug Testing in Primary Care Technical Assistance Publication Series 32. Department of Health and Human Services, [place], p.10. ETHANOL/ALCOHOL - Abnormal; Notable for the following components: Ethanol 227 (*) <11 mg/dL All other components within normal limits URINALYSIS WITH MICROSCOPIC, REFLEX CULTURE - Normal Procedures ED Course / Clinical Impression Clinical Impressions as of 07/16/23 1908 Alcohol dependence with unspecified alcohol-induced disorder (HCC) History of depression Homelessness The patient is medically stable for psychiatric evaluation AND therapy as indicated. The current evaluation does not show any acute medical cause for the patients behavior or symptoms. MDM / Disposition / Plan Vital signs stable on arrival. Exam as above. Overall patient disheveled and poorly kempt, not acutely toxic. Is exhibiting no gross focal deficits acutely. No vital sign normalities to suggest active withdrawal. Last drink was 1 PM, alcohol is over 200. I anticipate medical clearance. Patient evaluated by behavioral health/intake, judyem (more content not included)... Normal [facility] Ethanol [Mass/Vol] 227 mg/dL High <11 [facility] Comment on above: Order Comment: Speci men Type: BLOOD SPECIMEN Ordering Facility: [facility] Address: [address] [place] [address] Result Comment: Valu es > 80 mg/dL may indicate intoxication Performed By: #### 5 643-2, 67389-8 #### [facility] CLIA [id number] [address] [place] [address] [place] TOXICOLOGY SCREEN, ROUTINE U RINEon 07-16-2023 Amphetamines Confirm (U) [Mass/Vol] Negative Normal Negative [facility] Comment on above: Order Comment: Duncani armando Type: URINE SPECIMEN Ordering Facility: [facility] Address: [address] [place] [address] Result Comment: Cuto ff threshold at 1000 ng/mL. Performed By: #### U TOX2 #### [facility] CLIA [id number] [address] [place] [address] [place] BARBITURATES, URINE Positive Abnormal Negative [facility] Comment on above: Order Comment: Speci men Type: URINE SPECIMEN Ordering Facility: [facility] Address: [address] [place] [address] Result Comment: Cuto ff threshold at 200 ng/mL. Performed By: #### U TOX2 #### [facility] CLIA [id number] [address] [place] [address] [place] BENZODIAZEPINES, UR Positive Abnormal Negative [facility] Comment on above: Order Comment: Speci men Type: URINE SPECIMEN Ordering Facility: [facility] Address: [facility] [place] [address] Result Comment: Cuto ff threshold at 200 ng/mL. Performed By: #### U TOX2 #### [facility] CLIA [id number] [place] [address] [place] Cannabinoids Screen Ql (U) Negative Normal Negative [facility] Comment on above: Order Comment: Speci men Type: URINE SPECIMEN Ordering Facility: [facility] Address: [address] [place] [address] Result Comment: Cuto ff threshold at 50 ng/mL. Performed By: #### U TOX2 #### [facility] CLIA [id number] [address] [place] [address] [place] Cocaine Ql (U) Negative Normal Negative [facility] Comment on above: Order Comment: Speci men Type: URINE SPECIMEN Ordering Facility: [facility] Address: [address] [place] [address] Result Comment: Cuto ff threshold at 300 ng/mL. Performed By: #### U TOX2 #### [facility] CLIA [id number] [address] [place] [address] [place] Ethanol (U) [Mass/Vol] 232 mg/dL High <11 [facility] Comment on above: Order Comment: Speci men Type: URINE SPECIMEN Ordering Facility: [facility] Address: [address] [place] [address] Performed By: #### U TOX2 #### [facility] CLIA [id number] [address] [place] [address] [place] Opiates Screen Ql (U) Negative Normal Negative [facility] Comment on above: Order Comment: Speci men Type: URINE SPECIMEN Ordering Facility: [facility] Address: [address] [place] [address] Result Comment: Cuto ff threshold at 300 ng/mL. Performed By: #### U TOX2 #### [facility] CLIA [id number] [place] oxyCODONE cutoff Screen (U) [Mass/Vol] Negative Normal Negative [facility] Comment on above: Order Comment: Speci men Type: URINE SPECIMEN Ordering Facility: [facility] Address: [address] [place] [address] Result Comment: Cuto ff threshold at 100 ng/mL. Performed By: #### U TOX2 #### [facility] CLIA [id number] [place] Phencyclidine Ql (U) Negative Normal Negative [facility] Comment on above: Order Comment: Speci men Type: URINE SPECIMEN Ordering Facility: [facility] Address: [address] [place] [address] Result Comment: Cuto ff threshold at 25 ng/mL. Performed By: #### U TOX2 #### [facility] CLIA [id number] [place] [address] [place] Urinalysis complete panel (U )on 07-16-2023 Bilirubin Ql (U) Negative Normal Negative [facility] Comment on above: Order Comment: Speci men Type: URINE SPECIMENOrdering Facility: [facility] Address: [address] [place] [address] Performed By: #### 2 4356-8 ####[facility] [id number] [address] [place] Clarity (Unsp spec) Clear Normal Clear [facility] Comment on above: Order Comment: Speci men Type: URINE SPECIMENOrdering Facility: [facility] Address: [address] [place] [address] Performed By: #### 2 4356-8 ####[facility] [id number] [address] [place] Color (U) Light Yellow Normal yellow [facility] Comment on above: Order Comment: Speci men Type: URINE SPECIMENOrdering Facility: [facility] Address: [address] [place] [address] Performed By: #### 2 4356-8 ####[facility] [id number] [place] [address] [place] Glucose Test strip (U) [Mass/Vol] Negative Normal Trace, Negative [facility] Comment on above: Order Comment: Speci men Type: URINE SPECIMENOrdering Facility: [facility] Address: [address] [place] [address] Performed By: #### 2 4356-8 ####[facility] [id number] [place] [address] [place] Hemoglobin Ql (U) Negative Normal Negative, Trace [facility] Comment on above: Order Comment: Speci men Type: URINE SPECIMENOrdering Facility: [facility] Address: [address] [place] [address] Performed By: #### 2 4356-8 ####[facility] [id number] [address] [place] Ketones Ql (U) Negative Normal Negative, Trace [facility] Comment on above: Order Comment: Speci men Type: URINE SPECIMENOrdering Facility: [facility] Address: [address] [place] [address] Performed By: #### 2 4356-8 ####[facility] [id number] [address] [place] Leukocyte esterase Test strip Ql (U) Negative Normal Negative, 25 Traci/uL [facility] Comment on above: Order Comment: Speci men Type: URINE SPECIMENOrdering Facility: [facility] Address: [address] [place] [address] Performed By: #### 2 4356-8 ####[facility] [id number] [address] [place] Nitrite Ql (U) Negative Normal Negative [facility] Comment on above: Order Comment: Speci men Type: URINE SPECIMENOrdering Facility: [facility] Address: [address] [place] [address] Performed By: #### 2 4356-8 ####[facility] [id number] [place] [address] [place] pH (U) 7.5 [pH] Normal 5.0-8.0 [facility] Comment on above: Order Comment: Speci men Type: URINE SPECIMENOrdering Facility: [facility] Address: [address] [place] [address] Performed By: #### 2 4356-8 ####[facility]ORYCLIA [id number] [place] [id number] [place] Protein (U) [Mass/Vol] Negative Normal Trace, Negative [facility] Comment on above: Order Comment: Speci men Type: URINE SPECIMENOrdering Facility: [facility] Address: [address] [place] [address] Performed By: #### 2 4356-8 ####[facility]ALL[facility]CLIA [id number] [place] [address] [place] RBC LM.HPF (Urine sed) [#/Area] 0-3 /HPF Normal 0-3 /HPF [facility] Comment on above: Order Comment: Speci men Type: URINE SPECIMENOrdering Facility: [facility] Address: [address] [place] [address] Performed By: #### 2 4356-8 ####[facility]ORYCLIA [id number] [address] [place] Specific gravity (U) [Rel density] 1.012 Normal 1.005-1.030 [facility] Comment on above: Order Comment: Speci men Type: URINE SPECIMENOrdering Facility: [facility] Address: [address] [place] [address] Performed By: #### 2 4356-8 ####[facility]ORYCLIA [id number] [place] [id number] [place] Urobilinogen Ql (U) Normal Normal Normal [facility] Comment on above: Order Comment: Speci men Type: URINE SPECIMENOrdering Facility: [facility] Address: [address] [place] [address] Performed By: #### 2 4356-8 ####[facility] [id number] [place] [id number] [place] WBC LM.HPF (Urine sed) [#/Area] 0-5 /HPF Normal 0-5 /HPF [facility] Comment on above: Order Comment: Speci men Type: URINE SPECIMENOrdering Facility: [facility] Address: [address] [place] [address] Performed By: #### 2 4356-8 ####[facility] [id number] [place] [id number] [place] ECG COMPLETEon 07-15-2023 ECG COMPLETE Ventricular Rate : 7 6 BPM Atrial Rate : 76 BPM P-R Interval : 156 ms QRS Duration : 94 ms Q-T Interval : 382 ms QTC Calculation(Bazett) : 429 ms Calculated P [place] : 32 degrees Calculated R [place] : 19 degrees Calculated T [place] : 20 degrees NORMAL SINUS RHYTHM CANNOT RULE OUT ANTERIOR INFARCT , AGE UNDETERMINED ABNORMAL ECG NO PREVIOUS ECGS AVAILABLE Confirmed by DO KING ABRAHAM ([id number]), technical writer and editor BENJAMIN LOCKWOOD ([id number]) on 07/15/2023 1:35:47 PM NAME : MCKINLEY ROMAN PID : [id number] : 1985 Gender : Male Race : ORD : [id number] Procedure Date : Jul 15 2023 01:44:13 Edit Date : Jul 15 2023 13:35:53 Diagnosis: NORMAL SINUS RHYTHM CANNOT RULE OUT ANTERIOR INFARCT , AGE UNDETERMINED ABNORMAL ECG NO PREVIOUS ECGS AVAILABLE Confirmed by DO KING ABRAHAM ([id number]), technical writer and editor BENJAMIN LOCKWOOD ([id number]) on 07/15/2023 1:35:47 PM Test Reason : Chest Pain Location : 80 : [facility] ED Overread By : DO KING ABRAHAM Edited By : BENJAMIN LOCKWOOD Referred By : , Acquired by : NAHED ASCENCIO [facility] ED NOTEon 07-15-2023 ED NOTE HNO ID: [id number] Author: SUSAN AUGUSTIN RN Service: ? Author Type: Registered Nurse Type: ED Notes Filed: 07/15/2023 22:15 Note Text: Pt demanding ativan to this RN stating, I have anxiety I need fucking help, fuck you. Pt then demands this RN to help him from the chair and gets up on his own and walks out of the triage room. Pt then comes up to the window and screams fuck you to this RN. [facility] police to the WR to escort the patient out of this ED d/t escalating behaviors and disrespect to this RN. [facility] ED NOTE HNO ID: [id number] Author: SUSAN AUGUSTIN, JASVIR Service: ? Author Type: Registered Nurse Type: ED Notes Filed: 07/15/2023 22:10 Note Text: Pt to the ED via EMS for alcohol detox. Pt left [facility] around 6 pm and went drinking. Pt states he drank about 5 quartz of alcohol within 3 hours. Pt states he drinks a 5th of vodka daily. Pt states last drink 30 minutes ago. Pt endorsing some nausea and generalized pain. Pt AANDO x 3 at this time, calm and cooperative. Chest rise is equal and even. [facility] ED NOTE HNO ID: [id number] Author: ISABELLE LE, JASVIR Service: ? Author Type: Registered Nurse Type: ED Notes Filed: 07/15/2023 02:39 Note Text: Pt out of ED with [facility] PD Pt discharged by provider [facility] ED NOTE HNO ID: [id number] Author: ELMER JUAN, JASVIR Service: ? Author Type: Registered Nurse Type: ED Notes Filed: 07/15/2023 01:33 Note Text: Pt updated on plan of care and plan for admit at [facility] once clinically sober. Pt agreeable. Pt medicated again for continued anxiety. Pt remains on continuous pulse ox and remains visible from nurses' station d/t increased fall concerns. [facility] ED NOTE HNO ID: [id number] Author: SERA KING, JASVIR Service: ? Author Type: Registered Nurse Type: ED Notes Filed: 07/15/2023 01:25 Note Text: Per Ankita from [employer], pt can go back to [facility] once patient is sober. [facility] ED NOTE HNO ID: [id number] Author: ELMER JUAN, RN Service: ? Author Type: Registered Nurse Type: ED Notes Filed: 07/15/2023 01:32 Note Text: Pt continues to get out of bed and is argumentative with safety protocols. [facility] at bedside to assist pt back to bed. Pt compliant but argumentative with care. [facility] ED NOTE HNO ID: [id number] Author: ELMER JUAN, RN Service: ? Author Type: Registered Nurse Type: ED Notes Filed: 07/15/2023 00:48 Note Text: Pt speaking on phone to Awa MITTAL [facility] ED NOTE HNO ID: [id number] Author: ELMER JUAN, RN Service: ? Author Type: Registered Nurse Type: ED Notes Filed: 07/15/2023 00:21 Note Text: Dr. King at bedside [facility] ED NOTE HNO ID: [id number] Author: ELMER JUAN, RN Service: ? Author Type: Registered Nurse Type: ED Notes Filed: 07/15/2023 00:21 Note Text: Pt again requesting something for anxiety. Informed provider will be into see him shortly and meds will be ordered after that point. [facility] ED NOTE HNO ID: [id number] Author: ELMER JUAN, RN Service: ? Author Type: Registered Nurse Type: ED Notes Filed: 07/15/2023 00:03 Note Text: Pt requesting something for his anxiety. [facility] ED PROV NOTEon 07-15-2023 ED PROV NOTE HNO ID: [id number] Author: MEERA KING DO Service: Emergency Medicine Author Type: Physician Type: ED Provider Notes Filed: 07/16/2023 17:58 Note Text: ED Provider Note Patient Name: Mckinley Roman : 1985 SERVICE DATE: 07/14/23 History Patient presents with: Alcohol Problem 38-year-old male past medical history chronic alcohol abuse/dependence presenting requesting help with anxiety and detox. Patient states Ativan has helped in the past. Drinks a fifth of vodka x 2 per day. Was at [facility] a few days ago but left after a day. Patient complains of abdominal pain radiating up to the chest and a headache, which are typical with alcohol use. No vomiting. Patient is concerned because he recently had imaging that showed a lesion on my liver, but he does not recall being told about this and found it out from his paperwork and is concerned about it. PAST MEDICAL HISTORY Diagnosis Date - Alcohol abuse - Psychiatric disorder No past surgical history on file. No family history on file. Social History Tobacco Use - Smoking status: Some Days Types: Cigarettes - Smokeless tobacco: Never Vaping Use - Vaping Use: current everyday user - Substances: Nicotine, Flavoring - Devices: Disposable Substance and Sexual Activity - Alcohol use: Yes Comment: 3- fifths daily- whiskey - Drug use: Yes Types: Cocaine, Amphetamines - Sexual activity: Not on file ALLERGIES No Known Allergies Review of Systems Cardiovascular: Positive for chest pain. Gastrointestinal: Positive for abdominal pain. Negative for vomiting. Neurological: Positive for headaches. Psychiatric/Behavioral: The patient is nervous/anxious. Physical Exam Vitals [07/14/23 2358] BP Pulse Temp Temp src Resp SpO2 Weight Height 141/74 (!) 92 36.9 ?C (98.4 ?F) Oral 16 96 % 113.6 kg (250 lb 6.4 oz) -- Physical Exam Vitals and nursing note reviewed. Constitutional: General: He is not in acute distress. HENT: Head: Normocephalic and atraumatic. Eyes: Pupils: Pupils are equal, round, and reactive to light. Comments: Mild horizontal nystagmus. Pulmonary: Effort: Pulmonary effort is normal. No respiratory distress. Abdominal: Comments: Epigastric tenderness without rigidity more rebound. Musculoskeletal: General: No deformity or signs of injury. Neurological: Mental Status: He is alert. Comments: Mild central ataxia. No tremor or fasciculations. Mildly slurred speech. Perseverating questions. Psychiatric: Comments: Appears anxious. Diagnostic Testing ED Labs Ordered and Reviewed - No data to display Procedures ED Course / Clinical Impression Clinical Impressions as of 07/16/23 1754 Alcohol dependence with uncomplicated intoxication (HCC) LYNNETTE (generalized anxiety disorder) MDM / Disposition / Plan Alcohol dependence with intoxication. Patient was in a detox program recently before he left. [facility] was contacted and he is excepted back. No concerns for trauma. Patient reporting anxiety and received treatment. No signs of withdrawal. Initially there was concern for fall progressed to a steady gait. No signs of Warnicke/Korsakoff's. External records show a multitude of presentations for intoxication with offers for detox that are often declined. This pattern suggests that patient may not be ready to accept treatment but if he is willing today we will try to get him help. No indication for inpatient admission. Patient discharged with a ride to [facility]. History and Record Review External record(s) reviewed: prior outpatient record. Findings from review of outpatient records: Numerous presentations for alcohol intoxication. Disposition The patient was discharged. Admission considered: Yes Escalation of care including admission/observation considered. Reason(s) for deciding against admission/observation: Clinically sober and no signs of withdrawal. SIGNATURE: DO Dima Murphy ABRAHAM 07/16/23 1757 Normal [facility] TOXICOLOGY SCREEN, ROUTINE U RINEon 07-15-2023 Amphetamines Confirm (U) [Mass/Vol] Negative Normal Negative [facility] Comment on above: Order Comment: Speci men Type: URINE SPECIMEN Ordering Facility: [facility] Address: [address] [place] [address] Result Comment: Cuto ff threshold at 1000 ng/mL. Performed By: #### U TOX2 #### [facility] CLIA [id number] [address] [place] [address] [place] BARBITURATES, URINE Positive Abnormal Negative [facility] Comment on above: Order Comment: Speci men Type: URINE SPECIMEN Ordering Facility: [facility] Address: [address] [place] [address] Result Comment: Cuto ff threshold at 200 ng/mL. Performed By: #### U TOX2 #### [facility] CLIA [id number] [address] [place] [address] [place] BENZODIAZEPINES, UR Positive Abnormal Negative [facility] Comment on above: Order Comment: Speci men Type: URINE SPECIMEN Ordering Facility: [facility] Address: [address] [place] [address] Result Comment: Cuto ff threshold at 200 ng/mL. Performed By: #### U TOX2 #### [facility] CLIA [id number] [place] [address] [place] Cannabinoids Screen Ql (U) Negative Normal Negative [facility] Comment on above: Order Comment: Speci men Type: URINE SPECIMEN Ordering Facility: [facility] Address: [address] [place] [address] Result Comment: Cuto ff threshold at 50 ng/mL. Performed By: #### U TOX2 #### [facility] CLIA [id number] [place] [address] [place] Cocaine Ql (U) Negative Normal Negative [facility] Comment on above: Order Comment: Speci men Type: URINE SPECIMEN Ordering Facility: [facility] Address: [address] [place] [address] Result Comment: Cuto ff threshold at 300 ng/mL. Performed By: #### U TOX2 #### [facility] CLIA [id number] [address] [place] [address] [place] Ethanol (U) [Mass/Vol] 237 mg/dL High <11 [facility] Comment on above: Order Comment: Speci men Type: URINE SPECIMEN Ordering Facility: [facility] Address: [address] [place] [address] Performed By: #### U TOX2 #### [facility] CLIA [id number] [address] [place] [address] [place] Opiates Screen Ql (U) Negative Normal Negative [facility] Comment on above: Order Comment: Speci men Type: URINE SPECIMEN Ordering Facility: [facility] Address: [address] [place] [address] Result Comment: Cuto ff threshold at 300 ng/mL. Performed By: #### U TOX2 #### [facility] CLIA [id number] [place] [address] [place] oxyCODONE cutoff Screen (U) [Mass/Vol] Negative Normal Negative [facility] Comment on above: Order Comment: Speci men Type: URINE SPECIMEN Ordering Facility: [facility] Address: [address] [place] [address] Result Comment: Cuto ff threshold at 100 ng/mL. Performed By: #### U TOX2 #### [facility] CLIA [id number] [address] [place] [address] [place] Phencyclidine Ql (U) Negative Normal Negative [facility] Comment on above: Order Comment: Speci men Type: URINE SPECIMEN Ordering Facility: [facility] Address: [address] [place] [address] Result Comment: Cuto ff threshold at 25 ng/mL. Performed By: #### U TOX2 #### [facility] CLIA [id number] [place] Urinalysis complete panel (U )on 07-15-2023 Bilirubin Ql (U) Negative Normal Negative [facility] Comment on above: Order Comment: Speci men Type: URINE SPECIMEN Ordering Facility: [facility] Address: [address] [place] [address] Performed By: #### 2 4356-8 #### [facility] CLIA [id number] [address] [place] [address] Clarity (Unsp spec) Clear Normal Clear [facility] Comment on above: Order Comment: Speci men Type: URINE SPECIMEN Ordering Facility: [facility] Address: [address] [place] [address] Performed By: #### 2 4356-8 #### [facility] CLIA [id number] [address] [place] [address] Color (U) Colorless Normal yellow [facility] Comment on above: Order Comment: Speci men Type: URINE SPECIMEN Ordering Facility: [facility] Address: [address] [place] [address] Performed By: #### 2 4356-8 #### [facility] CLIA [id number] [place] Glucose Test strip (U) [Mass/Vol] Negative Normal Trace, Negative [facility] Comment on above: Order Comment: Speci men Type: URINE SPECIMEN Ordering Facility: [facility] Address: [address] [place] [address] Performed By: #### 2 4356-8 #### [facility] CLIA [id number] [address] [place] [address] [place] Hemoglobin Ql (U) Negative Normal Negative, Trace [facility] Comment on above: Order Comment: Speci men Type: URINE SPECIMEN Ordering Facility: [facility] Address: [address] [place] [address] Performed By: #### 2 4356-8 #### [facility] CLIA [id number] [address] [place] [address] [place] Ketones Ql (U) Negative Normal Negative, Trace [facility] Comment on above: Order Comment: Speci men Type: URINE SPECIMEN Ordering Facility: [facility] Address: [address] [place] [address] Performed By: #### 2 4356-8 #### [facility] CLIA [id number] [address] [place] [address] [place] Leukocyte esterase Test strip Ql (U) Negative Normal Negative, 25 Traci/uL [facility] Comment on above: Order Comment: Speci men Type: URINE SPECIMEN Ordering Facility: [facility] Address: [address] [place] [address] Performed By: #### 2 4356-8 #### [facility] CLIA [id number] [address] [place] [address] [place] Nitrite Ql (U) Negative Normal Negative [facility] Comment on above: Order Comment: Speci men Type: URINE SPECIMEN Ordering Facility: [facility] Address: [address] [place] [address] Performed By: #### 2 4356-8 #### [facility] CLIA [id number] [place] [address] [place] pH (U) 6.0 [pH] Normal 5.0-8.0 [facility] Comment on above: Order Comment: Speci men Type: URINE SPECIMEN Ordering Facility: [facility] Address: [address] [place] [address] Performed By: #### 2 4356-8 #### [facility] CLIA [id number] [place] [address] [place] Protein (U) [Mass/Vol] Negative Normal Trace, Negative [facility] Comment on above: Order Comment: Speci men Type: URINE SPECIMEN Ordering Facility: [facility] Address: [address] [place] [address] Performed By: #### 2 4356-8 #### [facility] CLIA [id number] [address] [place] [address] [place] RBC LM.HPF (Urine sed) [#/Area] 0-3 /HPF Normal 0-3 /HPF [facility] Comment on above: Order Comment: Speci men Type: URINE SPECIMEN Ordering Facility: [facility] Address: [address] [place] [address] Performed By: #### 2 4356-8 #### [facility] CLIA [id number] [address] [place] [address] [place] Specific gravity (U) [Rel density] 1.002 Low 1.005-1.030 [facility] Comment on above: Order Comment: Speci men Type: URINE SPECIMEN Ordering Facility: [facility] Address: [address] [place] [address] Performed By: #### 2 4356-8 #### [facility] CLIA [id number] [address] [place] [address] [place] Urobilinogen Ql (U) Normal Normal Normal [facility] Comment on above: Order Comment: Speci men Type: URINE SPECIMEN Ordering Facility: [facility] Address: [address] [place] [address] Performed By: #### 2 4356-8 #### [facility] CLIA [id number] [place] [address] [place] WBC LM.HPF (Urine sed) [#/Area] 0-5 /HPF Normal 0-5 /HPF [facility] Comment on above: Order Comment: Speci men Type: URINE SPECIMEN Ordering Facility: [facility] Address: [address] [place] [address] Performed By: #### 2 4356-8 #### [facility] CLIA [id number] [place] [address] [place] ED NOTEon 07-14-2023 ED NOTE HNO ID: [id number] Author: ISABELLE LE RN Service: ? Author Type: Registered Nurse Type: ED Notes Filed: 07/14/2023 23:58 Note Text: Bed: ED-03 Expected date: Expected time: Means of arrival: [facility] (42) Comments: Euc 42 Normal [facility] ED NOTE HNO ID: [id number] Author: ELMER JUAN, JASVIR Service: ? Author Type: Registered Nurse Type: ED Notes Filed: 07/15/2023 00:01 Note Text: Pt to ED via EMS for alcohol problem seeking treatment. Pt states he drinks 2 fifths of vodka daily, last drink at 2100 hrs tonight. Pt states he's from [place] and is in [place] for treatment. States he went to [facility] but checked himself out yesterday. Pt stating he is wanting to return to [facility] for treatment. Normal [facility] CBC with Auto Differentialon 07-12-2023 Basophils (Bld) [#/Vol] 0.05 10*3/uL [facility] Basophils/100 WBC (Bld) 1 % 0.0 - 2.0 % [facility] Eosinophils (Bld) [#/Vol] 0.04 10*3/uL Low [facility] Eosinophils/100 WBC (Bld) 0 % 0 - 6 % [facility] Erythrocyte distribution width (RBC) [Ratio] 13.9 % 11.5 - 15.0 % [facility] Hematocrit (Bld) [Volume fraction] 46.7 % 37.0 - 54.0 % [facility] Hemoglobin (Bld) [Mass/Vol] 16.6 g/dL High 12.5 - 16.5 g/dL [facility] Immature granulocytes (Bld) [#/Vol] 0.03 10*3/uL [facility] Immature granulocytes/100 WBC (Bld) 0 % 0.0 - 5.0 % [facility] Interpretation and review of laboratory results Abnormal [facility] Lymphocytes/100 WBC (Bld) 30 % 20.0 - 42.0 % [facility] Lymphocytes/100 WBC (Bld) 2.88 % [facility] MCH (RBC) [Entitic mass] 29.8 pg 26.0 - 35.0 pg [facility] MCHC (RBC) [Mass/Vol] 35.5 g/dL High 32.0 - 34.5 g/dL [facility] MCV (RBC) [Entitic vol] 83.8 fL 80.0 - 99.9 fL [facility] Monocytes/100 WBC (Bld) 8 % 2.0 - 12.0 % [facility] Monocytes/100 WBC (Bld) 0.78 % [facility] Neutrophils/100 WBC (Bld) 60 % 43.0 - 80.0 % [facility] Platelet mean volume (Bld) [Entitic vol] 8.4 fL 7.0 - 12.0 fL [facility] Platelets (Bld) [#/Vol] 307 10*3/uL [facility] RBC (Bld) [#/Vol] 5.57 10*6/uL 3.80 - 5.8 0 m/uL [facility] Segmented neutrophils/100 WBC (Bld) 5.71 % [facility] WBC other (Bld) [#/Vol] 9.5 [facility] Basophils (Bld) [#/Vol] 0.06 10*3/uL [facility] Basophils/100 WBC (Bld) 1 % 0.0 - 2.0 % [facility] Eosinophils (Bld) [#/Vol] 0.14 10*3/uL [facility] Eosinophils/100 WBC (Bld) 2 % 0 - 6 % [facility] Erythrocyte distribution width (RBC) [Ratio] 13.7 % 11.5 - 15.0 % [facility] Hematocrit (Bld) [Volume fraction] 45.7 % 37.0 - 54.0 % [facility] Hemoglobin (Bld) [Mass/Vol] 16.5 g/dL 12.5 - 16.5 g/dL [facility] Immature granulocytes (Bld) [#/Vol] [facility] Immature granulocytes/100 WBC (Bld) 0 % 0.0 - 5.0 % [facility] Interpretation and review of laboratory results Abnormal [facility] Lymphocytes/100 WBC (Bld) 34 % 20.0 - 42.0 % [facility] Lymphocytes/100 WBC (Bld) 2.33 % [facility] MCH (RBC) [Entitic mass] 30.3 pg 26.0 - 35.0 pg [facility] MCHC (RBC) [Mass/Vol] 36.1 g/dL High 32.0 - 34.5 g/dL [facility] MCV (RBC) [Entitic vol] 84.0 fL 80.0 - 99.9 fL [facility] Monocytes/100 WBC (Bld) 7 % 2.0 - 12.0 % [facility] Monocytes/100 WBC (Bld) 0.47 % [facility] Neutrophils/100 WBC (Bld) 55 % 43.0 - 80.0 % [facility] Platelet mean volume (Bld) [Entitic vol] 8.4 fL 7.0 - 12.0 fL [facility] Platelets (Bld) [#/Vol] 283 10*3/uL [facility] RBC (Bld) [#/Vol] 5.44 10*6/uL 3.80 - 5.8 0 m/uL [facility] Segmented neutrophils/100 WBC (Bld) 3.76 % [facility] WBC other (Bld) [#/Vol] 6.8 [facility] CBC with Diffon 07-12-2023 Abs. Basophil 0.05 k/uL Normal 0.00-0.20 [facility] Comment on above: Performed By: #### C RAQUEL, CP, SAL MERLOSB #### [facility] [address] [place] [address] [employer] Officer: Parvez Norton MD Abs.Imm.Granulocyte 0.03 k/uL Normal 0.00-0.58 [facility] Comment on above: Performed By: #### C BCWD, CP, TROPI, ALCB #### [address] [address] [employer] Officer: Parvez Norton MD Abs.Neutrophil (Seg) 5.71 k/uL Normal 1.80-7.30 [facility] Comment on above: Performed By: #### C BCWD, CP, TROPI, ALCB #### [address] [address] [employer] Officer: Parvez Norton MD Basophils/100 WBC (Bld) 1 % Normal 0.0-2.0 [facility] Comment on above: Performed By: #### C BCWD, CP, TROPI, ALCB #### [address] [address] ( [employer] Officer: Parvez Norton MD Eosinophils (Bld) [#/Vol] 0.04 10*3/uL Low 0.05-0.50 [facility] Comment on above: Performed By: #### C BCWD, CP, TROPI, ALCB #### [address] [address] [employer] Officer: Parvez Norton MD Eosinophils/100 WBC (Bld) 0 % Normal 0-6 [facility] Comment on above: Performed By: #### C BCWD, CP, TROPI, ALCB #### [address] [address] [employer] Officer: Parvez Norton MD Erythrocyte distribution width (RBC) [Ratio] 13.9 % Normal 11.5-15.0 [facility] Comment on above: Performed By: #### C BCWD, CP, TROPI, ALCB #### [address] [address] ( [employer] Officer: Parvez Norton MD Hematocrit (Bld) [Volume fraction] 46.7 % Normal 37.0-54.0 [facility] Comment on above: Performed By: #### C BCWD, CP, TROPI, ALCB #### [address] [address] ( [employer] Officer: Parvez Norton MD Hemoglobin (Bld) [Mass/Vol] 16.6 g/dL High 12.5-16.5 [facility] Comment on above: Performed By: #### C BCWD, CP, TROPI, ALCB #### [address] [address] ( [employer] Officer: Parvez Norton MD Immature granulocytes/100 WBC (Bld) 0 % Normal 0.0-5.0 [facility] Comment on above: Performed By: #### C BCWD, CP, TROPI, ALCB #### [address] [address] ( [employer] Officer: Parvez Norton MD Lymphocytes (Bld) [#/Vol] 2.88 10*3/uL Normal 1.50-4.00 [facility] Comment on above: Performed By: #### C BCWD, CP, TROPI, ALCB #### [address] [address] [employer] Officer: Parvez Norton MD Lymphocytes/100 WBC (Bld) 30 % Normal 20.0-42.0 [facility] Comment on above: Performed By: #### C BCWD, CP, TROPI, ALCB #### [address] [address] ( [employer] Officer: Parvez Norton MD MCH (RBC) [Entitic mass] 29.8 pg Normal 26.0-35.0 [facility] Comment on above: Performed By: #### C BCWD, CP, TROPI, ALCB #### [address] [address] ( [employer] Officer: Parvez Norton MD MCHC (RBC) [Mass/Vol] 35.5 g/dL High 32.0-34.5 [facility] Comment on above: Performed By: #### C RAQUEL, CP, TROPI, ALCB #### [address] [address] [employer] Officer: Parvez Norton MD MCV (RBC) [Entitic vol] 83.8 fL Normal 80.0-99.9 [facility] Comment on above: Performed By: #### C BCOSMAR, CP, TROPI, ALCB #### [address] [address] [employer] Officer: Parvez Norton MD Monocytes (Bld) [#/Vol] 0.78 10*3/uL Normal 0.10-0.95 [facility] Comment on above: Performed By: #### C RAQUEL, CP, TROPI, ALCB #### [address] [address] [employer] Officer: Parvez Norton MD Monocytes/100 WBC (Bld) 8 % Normal 2.0-12.0 [facility] Comment on above: Performed By: #### C RAQUEL, CP, TROPI, ALCB #### [address] [address] [employer] Officer: Parvez Norton MD Neutrophil (Seg) 60 % Normal 43.0-80.0 [facility] Comment on above: Performed By: #### C BRENDONWD, CP, TROPI, ALCB #### [address] [address] [employer] Officer: Parvez Norton MD Platelet mean volume (Bld) [Entitic vol] 8.4 fL Normal 7.0-12.0 [facility] Comment on above: Performed By: #### C RAQUEL, CP, TROPI, ALCB #### [address] [address] [employer] Officer: Parvez Norton MD Platelets (Bld) [#/Vol] 307 10*3/uL Normal 130-450 [facility] Comment on above: Performed By: #### C NICHELLE GARCÍA, TROPI, ALCB #### [address] [address] [employer] Officer: Parvez Norton MD RBC (Bld) [#/Vol] 5.57 10*6/uL Normal 3.80-5.80 [facility] Comment on above: Performed By: #### C RAQUEL, CP, TROPI, ALCB #### [address] [address] [employer] Officer: Parvez Norton MD WBC (Bld) [#/Vol] 9.5 10*3/uL Normal 4.5-11.5 [facility] Comment on above: Performed By: #### C NICHELLE GARCÍA, TROPI, ALCB #### [address] [address] [employer] Officer: Parvez Norton MD Abs. Basophil 0.06 k/uL Normal 0.00-0.20 [facility] Comment on above: Performed By: #### D AU #### [address] [address] [employer] Officer: Luis M Coker MD Abs.Imm.Granulocyte <0.03 Normal 0.00-0.58 [facility] Comment on above: Performed By: #### D AU #### [address] [address] [employer] Officer: Luis M Coker MD Abs.Neutrophil (Seg) 3.76 k/uL Normal 1.80-7.30 [facility] Comment on above: Performed By: #### D AU #### [address] [address] [employer] Officer: Luis M Coker MD Basophils/100 WBC (Bld) 1 % Normal 0.0-2.0 [facility] Comment on above: Performed By: #### D AU #### [address] [address] [employer] Officer: Luis M Coker MD Eosinophils (Bld) [#/Vol] 0.14 10*3/uL Normal 0.05-0.50 [facility] Comment on above: Performed By: #### D AU #### [address] [address] [employer] Officer: Luis M Coker MD Eosinophils/100 WBC (Bld) 2 % Normal 0-6 [facility] Comment on above: Performed By: #### D AU #### [place] [address] [employer] Officer: Luis M Coker MD Erythrocyte distribution width (RBC) [Ratio] 13.7 % Normal 11.5-15.0 [facility] Comment on above: Performed By: #### D AU #### [address] [address] [employer] Officer: Luis M Coker MD Hematocrit (Bld) [Volume fraction] 45.7 % Normal 37.0-54.0 [facility] Comment on above: Performed By: #### D AU #### [address] [address] [employer] Officer: Luis M Coker MD Hemoglobin (Bld) [Mass/Vol] 16.5 g/dL Normal 12.5-16.5 [facility] Comment on above: Performed By: #### D AU #### [address] [address] [employer] Officer: Luis M Coker MD Immature granulocytes/100 WBC (Bld) 0 % Normal 0.0-5.0 [facility] Comment on above: Performed By: #### D AU #### [place] [address] [employer] Officer: Luis M Coker MD Lymphocytes (Bld) [#/Vol] 2.33 10*3/uL Normal 1.50-4.00 [facility] Comment on above: Performed By: #### D AU #### [place] [address] [employer] Officer: Luis M Coker MD Lymphocytes/100 WBC (Bld) 34 % Normal 20.0-42.0 [facility] Comment on above: Performed By: #### D AU #### [place] [address] [employer] Officer: Luis M Coker MD MCH (RBC) [Entitic mass] 30.3 pg Normal 26.0-35.0 [facility] Comment on above: Performed By: #### D AU #### [place] [id number] [employer] Officer: Luis M Coker MD MCHC (RBC) [Mass/Vol] 36.1 g/dL High 32.0-34.5 [facility] Comment on above: Performed By: #### D AU #### [address] [address] [employer] Officer: Luis M Coker MD MCV (RBC) [Entitic vol] 84.0 fL Normal 80.0-99.9 [facility] Comment on above: Performed By: #### D AU #### [place] [address] [employer] Officer: Luis M Coker MD Monocytes (Bld) [#/Vol] 0.47 10*3/uL Normal 0.10-0.95 [facility] Comment on above: Performed By: #### D AU #### [address] [place] [address] [employer] Officer: Luis M Coker MD Monocytes/100 WBC (Bld) 7 % Normal 2.0-12.0 [facility] Comment on above: Performed By: #### D AU #### [address] [place] [address] [employer] Officer: Luis M Coker MD Neutrophil (Seg) 55 % Normal 43.0-80.0 [facility] Comment on above: Performed By: #### D AU #### [address] [place] [address] [employer] Officer: Luis M Coker MD Platelet mean volume (Bld) [Entitic vol] 8.4 fL Normal 7.0-12.0 [facility] Comment on above: Performed By: #### D AU #### [address] [place] [address] [employer] Officer: Luis M Coker MD Platelets (Bld) [#/Vol] 283 10*3/uL Normal 130-450 [facility] Comment on above: Performed By: #### D AU #### [address] [place] [address] [employer] Officer: Luis M Coker MD RBC (Bld) [#/Vol] 5.44 10*6/uL Normal 3.80-5.80 [facility] Comment on above: Performed By: #### D AU #### [address] [place] [address] [employer] Officer: Luis M Coker MD WBC (Bld) [#/Vol] 6.8 10*3/uL Normal 4.5-11.5 [facility] Comment on above: Performed By: #### D #### [facility] [address] [place] [address] [employer] Officer: Luis M Coker MD [facility] 07-12-2023 Albumin [Mass/Vol] 4.7 g/dL 3.5 - 5.2 g/dL [facility] ALP [Catalytic activity/Vol] 124 U/L 40 - 129 U/L [facility] ALT [Catalytic activity/Vol] 80 U/L High 0 - 40 U/L [facility] Anion gap [Moles/Vol] 17 mmol/L High 7 - 16 mmol/L [facility] AST [Catalytic activity/Vol] 44 U/L High 0 - 39 U/L [facility] Bilirubin [Mass/Vol] 0.3 mg/dL 0.0 - 1 .2 mg/dL [facility] Calcium [Mass/Vol] 9.1 mg/dL 8.6 - 10. 2 mg/dL [facility] Chloride [Moles/Vol] 104 mmol/L 98 - 10 7 mmol/L [facility] CO2 [Moles/Vol] 20 mmol/L Low 22 - 29 mmol/L [facility] Creatinine [Mass/Vol] 1.1 mg/dL 0.70 - 1.20 mg/dL [facility] Est, Glom Filt Rate - PINF [facility] Comment on above: These results are not intended for use in patients <18 years of age. eGFR results are calculated without a race factor using the 2020 CKD-EPI equation. Careful clinical correlation is recommended, particularly when comparing to results calculated using previous equations. The CKD-EPI equation is less accurate in patients with extremes of muscle mass, extra-renal metabolism of creatine, excessive creatine ingestion, or following therapy that affects renal tubular secretion. Glucose [Mass/Vol] 86 mg/dL 74 - 99 mg/dL [facility] Interpretation and review of laboratory results Abnormal [facility] Potassium [Moles/Vol] 4.2 mmol/L 3.5 - 5.0 mmol/L [facility] Protein [Mass/Vol] 7.9 g/dL 6.4 - 8.3 g/dL [facility] Sodium [Moles/Vol] 141 mmol/L 132 - 146 mmol/L [facility] Urea nitrogen [Mass/Vol] 17 mg/dL 6 - 20 mg/dL [facility] Comp Metabolic Profon 2023 Albumin [Mass/Vol] 4.7 g/dL Normal 3.5-5.2 [facility] Comment on above: Performed By: #### C BCWD, CP, TROPI, ALCB #### [address] [id number] [employer] Officer: Parvez Norton MD Alkaline Phos 124 U/L Normal 40-129 [facility] Comment on above: Performed By: #### C BCWD, CP, TROPI, ALCB #### [address] [id number] [employer] Officer: Parvez Norton MD ALT [Catalytic activity/Vol] 80 U/L High 0-40 [facility] Comment on above: Performed By: #### C BCWD, CP, TROPI, ALCB #### [address] [id number] [employer] Officer: Parvez Norton MD Anion gap [Moles/Vol] 17 mmol/L High 7-16 [facility] Comment on above: Performed By: #### C BCWD, CP, TROPI, ALCB #### [address] [id number] [employer] Officer: Parvez Norton MD AST [Catalytic activity/Vol] 44 U/L High 0-39 [facility] Comment on above: Performed By: #### C BCWD, CP, TROPI, ALCB #### [address] [id number] [employer] Officer: Parvez Norton MD Bilirubin [Mass/Vol] 0.3 mg/dL Normal 0.0-1.2 [facility] Comment on above: Performed By: #### C RAQUEL, CP, TROPI, ALCB #### [address] [address] [employer] Officer: Parvez Norton MD Calcium [Mass/Vol] 9.1 mg/dL Normal 8.6-10.2 [facility] Comment on above: Performed By: #### C RAQUEL, CP, TROPI, ALCB #### [address] [address] [employer] Officer: Parvez Norton MD Chloride [Moles/Vol] 104 mmol/L Normal 98-107 [facility] Comment on above: Performed By: #### C RAQUEL, CP, TROPI, ALCB #### [address] [address] [employer] Officer: Parvez Norton MD CO2 [Moles/Vol] 20 mmol/L Low 22-29 [facility] Comment on above: Performed By: #### C RAQUEL, CP, TROPI, ALCB #### [address] [address] [employer] Officer: Parvez Norton MD Creatinine [Mass/Vol] 1.1 mg/dL Normal 0.70-1.20 [facility] Comment on above: Performed By: #### C RAQUEL, CP, TROPI, ALCB #### [address] [address] [employer] Officer: Parvez Norton MD GFR/1.73 sq M.predicted among non-blacks MDRD (S/P/Bld) [Vol rate/Area] mL/min/{1.73_m2} Normal >60 [facility] Comment on above: Result Comment: These results are not intended for use in patients <18 years of age. eGFR results are calculated without a race factor using the 2020 CKD-EPI equation. Careful clinical correlation is recommended, particularly when comparing to results calculated using previous equations. The CKD-EPI equation is less accurate in patients with extremes of muscle mass, extra-renal metabolism of creatine, excessive creatine ingestion, or following therapy that affects renal tubular secretion. Performed By: #### C BCWD, CP, TROPI, ALCB #### [address] [address] [employer] Officer: Parvez Norton MD Glucose [Mass/Vol] 86 mg/dL Normal 74-99 [facility] Comment on above: Performed By: #### C BCOSMAR, CP, TROPI, ALCB #### [address] [address] ( [employer] Officer: Parvez Norton MD Potassium [Moles/Vol] 4.2 mmol/L Normal 3.5-5.0 [facility] Comment on above: Performed By: #### C BCWD, CP, TROPI, ALCB #### [address] [address] ( [employer] Officer: Parvez Norton MD Protein [Mass/Vol] 7.9 g/dL Normal 6.4-8.3 [facility] Comment on above: Performed By: #### C RAQUEL, CP, TROPI, ALCB #### [address] [address] [employer] Officer: Parvez Norton MD Sodium [Moles/Vol] 141 mmol/L Normal 132-146 [facility] Comment on above: Performed By: #### C BCWD, CP, TROPI, ALCB #### [address] [address] ( [employer] Officer: Parvez Norton MD Urea nitrogen [Mass/Vol] 17 mg/dL Normal 6-20 [facility] Comment on above: Performed By: #### C BCWD, CP, TROPI, ALCB #### [address] [place] [address] [employer] Officer: Parvez Norton MD Albumin [Mass/Vol] 4.7 g/dL Normal 3.5-5.2 [facility] Comment on above: Performed By: #### D AU #### [address] [place] [address] Cavalry Officer: Luis M Coker MD Alkaline Phos 118 U/L Normal 40-129 [facility] Comment on above: Performed By: #### D AU #### [address] [address] [employer] Officer: Luis M Coker MD ALT [Catalytic activity/Vol] 76 U/L High 0-40 [facility] Comment on above: Performed By: #### D AU #### [address] [place] [address] [employer] Officer: Luis M Coker MD Anion gap [Moles/Vol] 17 mmol/L High 7-16 [facility] Comment on above: Performed By: #### D AU #### [address] [place] [address] [employer] Officer: Luis M Coker MD AST [Catalytic activity/Vol] 33 U/L Normal 0-39 [facility] Comment on above: Performed By: #### D AU #### [address] [place] [address] [employer] Officer: Luis M Coker MD Bilirubin [Mass/Vol] 0.2 mg/dL Normal 0.0-1.2 [facility] Comment on above: Performed By: #### D AU #### [address] [place] [address] [employer] Officer: Luis M Coker MD Calcium [Mass/Vol] 9.2 mg/dL Normal 8.6-10.2 [facility] Comment on above: Performed By: #### D AU #### [address] [place] [address] [employer] Officer: Luis M Coker MD Chloride [Moles/Vol] 106 mmol/L Normal 98-107 [facility] Comment on above: Performed By: #### D AU #### [address] [address] [employer] Officer: Luis M Coker MD CO2 [Moles/Vol] 16 mmol/L Low 22-29 [facility] Comment on above: Performed By: #### D AU #### [place] [address] [employer] Officer: Luis M Coker MD Creatinine [Mass/Vol] 1.1 mg/dL Normal 0.70-1.20 [facility] Comment on above: Performed By: #### D AU #### [place] [address] [employer] Officer: Luis M Coker MD GFR/1.73 sq M.predicted among non-blacks MDRD (S/P/Bld) [Vol rate/Area] 88 mL/min/{1.73_m2} Normal >60 [facility] Comment on above: Result Comment: These results are not intended for use in patients <18 years of age. eGFR results are calculated without a race factor using the 2020 CKD-EPI equation. Careful clinical correlation is recommended, particularly when comparing to results calculated using previous equations. The CKD-EPI equation is less accurate in patients with extremes of muscle mass, extra-renal metabolism of creatine, excessive creatine ingestion, or following therapy that affects renal tubular secretion. Performed By: #### D AU #### [place] [address] [employer] Officer: Luis M Coker MD Glucose [Mass/Vol] 98 mg/dL Normal 74-99 [facility] Comment on above: Performed By: #### D AU #### [address] [place] [address] [employer] Officer: Luis M Coker MD Potassium [Moles/Vol] 4.0 mmol/L Normal 3.5-5.0 [facility] Comment on above: Performed By: #### D AU #### [address] [address] [employer] Officer: Luis M Coker MD Protein [Mass/Vol] 7.7 g/dL Normal 6.4-8.3 [facility] Comment on above: Performed By: #### D AU #### [address] [address] [employer] Officer: Luis M Coker MD Sodium [Moles/Vol] 139 mmol/L Normal 132-146 [facility] Comment on above: Performed By: #### D AU #### [address] [address] [employer] Officer: Luis M Coker MD Urea nitrogen [Mass/Vol] 18 mg/dL Normal 6-20 [facility] Comment on above: Performed By: #### D AU #### [address] [address] [employer] Officer: Luis M Coker MD Comprehensive Metabolic Pane [facility] 07-12-2023 Albumin [Mass/Vol] 4.7 g/dL 3.5 - 5.2 g/dL [facility] ALP [Catalytic activity/Vol] 118 U/L 40 - 129 U/L [facility] ALT [Catalytic activity/Vol] 76 U/L High 0 - 40 U/L [facility] Anion gap [Moles/Vol] 17 mmol/L High 7 - 16 mmol/L [facility] AST [Catalytic activity/Vol] 33 U/L 0 - 39 U/L [facility] Bilirubin [Mass/Vol] 0.2 mg/dL 0.0 - 1 .2 mg/dL [facility] Calcium [Mass/Vol] 9.2 mg/dL 8.6 - 10. 2 mg/dL [facility] Chloride [Moles/Vol] 106 mmol/L 98 - 10 7 mmol/L [facility] CO2 [Moles/Vol] 16 mmol/L Low 22 - 29 mmol/L [facility] Creatinine [Mass/Vol] 1.1 mg/dL 0.70 - 1.20 mg/dL [facility] Est, Glolucia Filt Rate 88 - PINF [facility] Comment on above: These results are not intended for use in patients <18 years of age. eGFR results are calculated without a race factor using the 2020 CKD-EPI equation. Careful clinical correlation is recommended, particularly when comparing to results calculated using previous equations. The CKD-EPI equation is less accurate in patients with extremes of muscle mass, extra-renal metabolism of creatine, excessive creatine ingestion, or following therapy that affects renal tubular secretion. Glucose [Mass/Vol] 98 mg/dL 74 - 99 mg/dL [facility] Interpretation and review of laboratory results Abnormal [facility] Potassium [Moles/Vol] 4.0 mmol/L 3.5 - 5.0 mmol/L [facility] Protein [Mass/Vol] 7.7 g/dL 6.4 - 8.3 g/dL [facility] Sodium [Moles/Vol] 139 mmol/L 132 - 146 mmol/L [facility] Urea nitrogen [Mass/Vol] 18 mg/dL 6 - 20 mg/dL [facility] Ethanolon 07-12-2023 Ethanolamine [Mass/Vol] 208 mg/dL High NINF - 10 mg/dL [facility] Interpretation and review of laboratory results Abnormal [facility] Ethanol Alcoholon 07-12-2023 Ethanol [Mass/Vol] 208 mg/dL High <10 [facility] Comment on above: Performed By: #### C BCWD, CP, TROPI, ALCB #### [facility] [address] [place] [address] Cav[employer] Officer: Parvez Norton MD Lipaseon 07-12-2023 Lipase [Catalytic activity/Vol] 38 U/L 13 - 60 U/L [facility] Lipase [Catalytic activity/Vol] 38 U/L Normal 13-60 [facility] Comment on above: Performed By: #### D AU #### [facility] [address] [place] [address] Cav[employer] Officer: Luis M Coker MD No Panel Informationon 07-11 [facility] Portable XR Chest AP single viewon 07-12-2023 Low lung volumes wit h bronchovascular crowding and bibasilar atelectasis. [facility] EXAMINATION: ONE XRAY VIEW OF THE CHEST 07/12/2023 2:13 am COMPARISON: 06/30/2023 HISTORY: ORDERING SYSTEM PROVIDED HISTORY: chest pain TECHNOLOGIST PROVIDED HISTORY: Reason for exam:->chest pain FINDINGS: The cardiomediastinal silhouette is within normal limits. There are low lung volumes with bronchovascular crowding. Streaky bibasilar opacities, likely atelectasis. No pneumothorax or pleural effusion. [facility] Nathalie Mcguire MD - 07/12/2023 EXAMINATION: ONE XRAY VIEW OF THE CHEST 07/12/2023 2:13 am COMPARISON: 06/30/2023 HISTORY: ORDERING SYSTEM PROVIDED HISTORY: chest pain TECHNOLOGIST PROVIDED HISTORY: Reason for exam:->chest pain FINDINGS: The cardiomediastinal silhouette is within normal limits. There are low lung volumes with bronchovascular crowding. Streaky bibasilar opacities, likely atelectasis. No pneumothorax or pleural effusion. IMPRESSION: Low lung volumes with bronchovascular crowding and bibasilar atelectasis. [facility] Radiology Study observation (narrative) [facility] Portable XR Chest AP single viewOrdered By: Nathalie Mcguire on 07-12-2023 [facility] Work Phone: SERUM DRUG SCREENon 07-12-19 24 Acetaminophen [Mass/Vol] ug/mL Low 10.0 - 30.0 ug/mL [facility] Ethanolamine [Mass/Vol] 175 mg/dL High NINF - 10 mg/dL [facility] Interpretation and review of laboratory results Abnormal [facility] Salicylates [Mass/Vol] mg/dL 0.0 - 30.0 mg/dL [facility] Toxic Tricyclic Sc,Blood Negative NEGATIVE [facility] Comment on above: Cutoff: 300 ng/ml [facility] Tox Scr, Bld, EDon 4 Acetaminophen [Mass/Vol] ug/mL Low 10.0-30.0 [facility] Comment on above: Performed By: #### D AU #### [address] [address] [employer] Officer: Luis M Coker MD Ethanol [Mass/Vol] 175 mg/dL High <10 [facility] Comment on above: Performed By: #### D AU #### [address] [address] [employer] Officer: Luis M Coker MD Salicylate <0.3 Normal 0.0-30.0 [facility] Comment on above: Performed By: #### D AU #### [address] [address] Cav[employer] Officer: Luis M Coker MD Toxic Tricyclic Sc,Bl Negative Normal NEG [facility] Comment on above: Result Comment: Cuto ff: 300 ng/ml Performed By: #### D AU #### [address] [address] [employer] Officer: Luis M Coker MD Troponinon 07-12-2023 Troponin I.cardiac High sensitivity method [Mass/Vol] 10 ng/L 0 - 11 ng/L [facility] Comment on above: High Sensitivity Troponin values cannot be compared with other Troponin methodologies. Patients with high levels of Biotin oral intake (i.e >5mg/day) may have falsely decreased Troponin levels. Samples collected within 8 hours of biotin intake may require additional information for diagnosis. Troponin, High Sens 10 ng/L Normal 0-11 [facility] Comment on above: Result Comment: High Sensitivity Troponin values cannot be compared with other Troponin methodologies. Patients with high levels of Biotin oral intake (i.e >5mg/day) may have falsely decreased Troponin levels. Samples collected within 8 hours of biotin intake may require additional information for diagnosis. Performed By: #### C BCWD, CP, TROPI, ALCB #### [facility] [address] [place] [address] Cav[employer] Officer: Parvez Norton MD Troponin I.cardiac High sensitivity method [Mass/Vol] 9 ng/L 0 - 11 ng/L [facility] Comment on above: High Sensitivity Troponin values cannot be compared with other Troponin methodologies. Patients with high levels of Biotin oral intake (i.e >5mg/day) may have falsely decreased Troponin levels. Samples collected within 8 hours of biotin intake may require additional information for diagnosis. Troponin, High Sens 9 ng/L Normal 0-11 [facility] Comment on above: Result Comment: High Sensitivity Troponin values cannot be compared with other Troponin methodologies. Patients with high levels of Biotin oral intake (i.e >5mg/day) may have falsely decreased Troponin levels. Samples collected within 8 hours of biotin intake may require additional information for diagnosis. Performed By: #### D #### [facility] [address] [place], [place] [id number] [employer] Officer: Luis M Coker MD XR CHEST PORTABLEon 07-12-19 24 XR CHEST PORTABLE EXAMINATION: ONE XRAY VIEW OF THE CHEST 07/12/2023 2:13 am COMPARISON: 06/30/2023 HISTORY: ORDERING SYSTEM PROVIDED HISTORY: chest pain TECHNOLOGIST PROVIDED HISTORY: Reason for exam:->chest pain FINDINGS: The cardiomediastinal silhouette is within normal limits. There are low lung volumes with bronchovascular crowding. Streaky bibasilar opacities, likely atelectasis. No pneumothorax or pleural effusion. IMPRESSION: Low lung volumes with bronchovascular crowding and bibasilar atelectasis. Interpreted by: Nathalie Mcguire MD Signed by: Nathalie Mcguire MD 07/12/23 Final result Normal [facility] Comment on above: Order Comment: Reaso n for exam:->chest pain CKon 07-07-2023 Interpretation and review of laboratory results Abnormal [facility] CT CERVICAL SPINE WO CONTRAS Ton 07-07-2023 CT CERVICAL SPINE WO CONTRAST EXAMINATION: CT OF THE CERVICAL SPINE WITHOUT CONTRAST 07/07/2023 12:14 am TECHNIQUE: CT of the cervical spine was performed without the administration of intravenous contrast. Multiplanar reformatted images are provided for review. Automated exposure control, iterative reconstruction, and/or weight based adjustment of the mA/kV was utilized to reduce the radiation dose to as low as reasonably achievable. COMPARISON: None. HISTORY: ORDERING SYSTEM PROVIDED HISTORY: fall in ed patient's neck hit the ledge TECHNOLOGIST PROVIDED HISTORY: Reason for exam:->fall in ed patient's neck hit the ledge Decision Support Exception - unselect if not a suspected or confirmed emergency medical condition->Emergency Medical Condition ([place]) What reading provider will be dictating this exam?->CRC FINDINGS: BONES/ALIGNMENT: There is no acute fracture or traumatic malalignment. DEGENERATIVE CHANGES: Focal mild/moderate disc degenerative change at C5-C6 with mild central stenosis at this level. SOFT TISSUES: There is no prevertebral soft tissue swelling. IMPRESSION: No acute abnormality of the cervical spine. Focal mild/moderate disc degenerative change at C5-C6 with mild central stenosis at this level. Interpreted by: Angela Cooley MD Signed by: Angela Cooley MD 07/07/23 Final result Normal [facility] Comment on above: Order Comment: Reaso n for exam:->fall in ed patient's neck hit the PayScaleecision Support Exception - unselect if not a suspected or confirmed emergency medical condition->Emergency Medical Condition ([place])What reading provider will be dictating this exam?->CRC CT Cervical spine WO contras ton 07-07-2023 No acute abnormality of the cervical spine. Focal mild/moderate disc degenerative change at C5-C6 with mild central stenosis at this level. [facility] EXAMINATION: CT OF THE CERVICAL SPINE WITHOUT CONTRAST 07/07/2023 12:14 am TECHNIQUE: CT of the cervical spine was performed without the administration of intravenous contrast. Multiplanar reformatted images are provided for review. Automated exposure control, iterative reconstruction, and/or weight based adjustment of the mA/kV was utilized to reduce the radiation dose to as low as reasonably achievable. COMPARISON: None. HISTORY: ORDERING SYSTEM PROVIDED HISTORY: fall in ed patient's neck hit the ledge TECHNOLOGIST PROVIDED HISTORY: Reason for exam:->fall in ed patient's neck hit the ledge Decision Support Exception - unselect if not a suspected or confirmed emergency medical condition->Emergency Medical Condition ([place]) What reading provider will be dictating this exam?->CRC FINDINGS: BONES/ALIGNMENT: There is no acute fracture or traumatic malalignment. DEGENERATIVE CHANGES: Focal mild/moderate disc degenerative change at C5-C6 with mild central stenosis at this level. SOFT TISSUES: There is no prevertebral soft tissue swelling. [facility] Angela Cooley MD - 07/07/2023 EXAMINATION: CT OF THE CERVICAL SPINE WITHOUT CONTRAST 07/07/2023 12:14 am TECHNIQUE: CT of the cervical spine was performed without the administration of intravenous contrast. Multiplanar reformatted images are provided for review. Automated exposure control, iterative reconstruction, and/or weight based adjustment of the mA/kV was utilized to reduce the radiation dose to as low as reasonably achievable. COMPARISON: None. HISTORY: ORDERING SYSTEM PROVIDED HISTORY: fall in ed patient's neck hit the ledge TECHNOLOGIST PROVIDED HISTORY: Reason for exam:->fall in ed patient's neck hit the ledge Decision Support Exception - unselect if not a suspected or confirmed emergency medical condition->Emergency Medical Condition ([place]) What reading provider will be dictating this exam?->CRC FINDINGS: BONES/ALIGNMENT: There is no acute fracture or traumatic malalignment. DEGENERATIVE CHANGES: Focal mild/moderate disc degenerative change at C5-C6 with mild central stenosis at this level. SOFT TISSUES: There is no prevertebral soft tissue swelling. IMPRESSION: No acute abnormality of the cervical spine. Focal mild/moderate disc degenerative change at C5-C6 with mild central stenosis at this level. [facility] CT Cervical spine WO contras tOrdered By: Angela Cooley on 07-07-2023 [facility] Work Phone: CT HEAD WO CONTRASTon 2023 CT HEAD WO CONTRAST EXAMINATION: CT OF THE HEAD WITHOUT CONTRAST 07/07/2023 12:14 am TECHNIQUE: CT of the head was performed without the administration of intravenous contrast. Automated exposure control, iterative reconstruction, and/or weight based adjustment of the mA/kV was utilized to reduce the radiation dose to as low as reasonably achievable. COMPARISON: None. HISTORY: ORDERING SYSTEM PROVIDED HISTORY: Evaluate intracranial abnormality TECHNOLOGIST PROVIDED HISTORY: Has a code stroke or stroke alert been called?->No Reason for exam:->Evaluate intracranial abnormality Decision Support Exception - unselect if not a suspected or confirmed emergency medical condition->Emergency Medical Condition ([place]) What reading provider will be dictating this exam?->CRC FINDINGS: BRAIN/VENTRICLES: There is no acute intracranial hemorrhage, mass effect or midline shift. No abnormal extra-axial fluid collection. The ma-white differentiation is maintained without evidence of an acute infarct. There is no evidence of hydrocephalus. ORBITS: The visualized portion of the orbits demonstrate no acute abnormality. SINUSES: The visualized paranasal sinuses and mastoid air cells demonstrate no acute abnormality. SOFT TISSUES/SKULL: No acute abnormality of the visualized skull or soft tissues. IMPRESSION: No acute intracranial abnormality. Interpreted by: Angela Cooley MD Signed by: Angela Cooley MD 07/07/23 Final result Normal [facility] Comment on above: Order Comment: Has a code stroke or stroke alert been called?->NoReason for exam:->Evaluate intracranial abnormalityDecision Support Exception - unselect if not a suspected or confirmed emergency medical condition->Emergency Medical Condition ([place])What reading provider will be dictating this exam?->CRC CT Head WO contraston 2023 No acute intracrania l abnormality. [facility] EXAMINATION: CT OF THE HEAD WITHOUT CONTRAST 07/07/2023 12:14 am TECHNIQUE: CT of the head was performed without the administration of intravenous contrast. Automated exposure control, iterative reconstruction, and/or weight based adjustment of the mA/kV was utilized to reduce the radiation dose to as low as reasonably achievable. COMPARISON: None. HISTORY: ORDERING SYSTEM PROVIDED HISTORY: Evaluate intracranial abnormality TECHNOLOGIST PROVIDED HISTORY: Has a code stroke or stroke alert been called?->No Reason for exam:->Evaluate intracranial abnormality Decision Support Exception - unselect if not a suspected or confirmed emergency medical condition->Emergency Medical Condition ([place]) What reading provider will be dictating this exam?->CRC FINDINGS: BRAIN/VENTRICLES: There is no acute intracranial hemorrhage, mass effect or midline shift. No abnormal extra-axial fluid collection. The ma-white differentiation is maintained without evidence of an acute infarct. There is no evidence of hydrocephalus. ORBITS: The visualized portion of the orbits demonstrate no acute abnormality. SINUSES: The visualized paranasal sinuses and mastoid air cells demonstrate no acute abnormality. SOFT TISSUES/SKULL: No acute abnormality of the visualized skull or soft tissues. [facility] Angela Cooley MD - 07/07/2023 EXAMINATION: CT OF THE HEAD WITHOUT CONTRAST 07/07/2023 12:14 am TECHNIQUE: CT of the head was performed without the administration of intravenous contrast. Automated exposure control, iterative reconstruction, and/or weight based adjustment of the mA/kV was utilized to reduce the radiation dose to as low as reasonably achievable. COMPARISON: None. HISTORY: ORDERING SYSTEM PROVIDED HISTORY: Evaluate intracranial abnormality TECHNOLOGIST PROVIDED HISTORY: Has a code stroke or stroke alert been called?->No Reason for exam:->Evaluate intracranial abnormality Decision Support Exception - unselect if not a suspected or confirmed emergency medical condition->Emergency Medical Condition ([place]) What reading provider will be dictating this exam?->CRC FINDINGS: BRAIN/VENTRICLES: There is no acute intracranial hemorrhage, mass effect or midline shift. No abnormal extra-axial fluid collection. The ma-white differentiation is maintained without evidence of an acute infarct. There is no evidence of hydrocephalus. ORBITS: The visualized portion of the orbits demonstrate no acute abnormality. SINUSES: The visualized paranasal sinuses and mastoid air cells demonstrate no acute abnormality. SOFT TISSUES/SKULL: No acute abnormality of the visualized skull or soft tissues. IMPRESSION: No acute intracranial abnormality. [facility] Creatine Kinaseon 05-29-2024 CK [Catalytic activity/Vol] 237 U/L High 20-200 [facility] Comment on above: Performed By: #### T ROPI, CMPX, TATO, LIP, LACTIC, PT #### [facility] [address] [place] [address] Cavalry Officer: Luis M Coker MD EKG 12 LeadOrdered By: Jem Collier on 07-07-2023 Atrial Rate 87 BPM [facility] Work Phone: P [place] 39 degrees [facility] Work Phone: P-R Interval 156 ms [facility] Work Phone: Q-T Interval 362 ms [facility] Work Phone: QRS Duration 96 ms [facility] Work Phone: QTc Calculation (Bazett) 435 ms [facility] Work Phone: R [place] 16 degrees [facility] Work Phone: T [place] 26 degrees [facility] Work Phone: Ventricular Rate 87 BPM Pain Doctor Work Phone: [facility] Work Phone: EKG 12 Leadon 07-07-2023 Normal sinus rhythm Normal ECG Confirmed by Jem Collier ([id number]) on 07/07/2023 8:46:42 AM [facility] Jem Collier MD - 07/07/2023 Normal sinus rhythm Normal ECG Confirmed by Jem Collier ([id number]) on 07/07/2023 8:46:42 AM [facility] Ethanolon 07-07-2023 Ethanolamine [Mass/Vol] 75 mg/dL High NINF - 10 mg/dL [facility] Interpretation and review of laboratory results Abnormal [facility] Ethanolamine [Mass/Vol] 110 mg/dL High NINF - 10 mg/dL [facility] Interpretation and review of laboratory results Abnormal [facility] Ethanol Alcoholon 07-07-2023 Ethanol [Mass/Vol] 75 mg/dL High <10 [facility] Comment on above: Performed By: #### T ROPI, CMPX, TATO, LIP, LACTIC, PT #### [place] [id number] Cavalry Officer: Luis M Coker MD Ethanol [Mass/Vol] 110 mg/dL High <10 [facility] Comment on above: Performed By: #### C BCWD #### [place] [id number] Cavalry Officer: Luis M Coker MD No Panel Informationon 07-06 Radiology Study observation (narrative) [facility] CBC with Auto Differentialon 07-06-2023 Basophils (Bld) [#/Vol] 0.06 10*3/uL [facility] Basophils/100 WBC (Bld) 1 % 0.0 - 2.0 % [facility] Eosinophils (Bld) [#/Vol] 0.35 10*3/uL [facility] Eosinophils/100 WBC (Bld) 4 % 0 - 6 % [facility] Erythrocyte distribution width (RBC) [Ratio] 13.6 % 11.5 - 15.0 % [facility] Hematocrit (Bld) [Volume fraction] 45.3 % 37.0 - 54.0 % [facility] Hemoglobin (Bld) [Mass/Vol] 16.4 g/dL 12.5 - 16.5 g/dL [facility] Immature granulocytes (Bld) [#/Vol] 0.04 10*3/uL [facility] Immature granulocytes/100 WBC (Bld) 1 % 0.0 - 5.0 % [facility] Interpretation and review of laboratory results Abnormal [facility] Lymphocytes/100 WBC (Bld) 35 % 20.0 - 42.0 % [facility] Lymphocytes/100 WBC (Bld) 3.03 % [facility] MCH (RBC) [Entitic mass] 30.5 pg 26.0 - 35.0 pg [facility] MCHC (RBC) [Mass/Vol] 36.2 g/dL High 32.0 - 34.5 g/dL [facility] MCV (RBC) [Entitic vol] 84.4 fL 80.0 - 99.9 fL [facility] Monocytes/100 WBC (Bld) 9 % 2.0 - 12.0 % [facility] Monocytes/100 WBC (Bld) 0.80 % [facility] Neutrophils/100 WBC (Bld) 51 % 43.0 - 80.0 % [facility] Platelet mean volume (Bld) [Entitic vol] 8.5 fL 7.0 - 12.0 fL [facility] Platelets (Bld) [#/Vol] 320 10*3/uL [facility] RBC (Bld) [#/Vol] 5.37 10*6/uL 3.80 - 5.8 0 m/uL [facility] Segmented neutrophils/100 WBC (Bld) 4.45 % [facility] WBC other (Bld) [#/Vol] 8.7 [facility] CBC with Diffon 07-06-2023 Abs. Basophil 0.06 k/uL Normal 0.00-0.20 [facility] Comment on above: Performed By: #### T ROPI, CMPX, TATO, LIP, LACTIC, PT #### [address] [address] [employer] Officer: Luis M Coker MD Abs.Imm.Granulocyte 0.04 k/uL Normal 0.00-0.58 [facility] Comment on above: Performed By: #### T ROPI, CMPX, TATO, LIP, LACTIC, PT #### [address] [address] [employer] Officer: Luis M Coker MD Abs.Neutrophil (Seg) 4.45 k/uL Normal 1.80-7.30 [facility] Comment on above: Performed By: #### T ROPI, CMPX, TATO, LIP, LACTIC, PT #### [place] [address] [employer] Officer: Luis M Coker MD Basophils/100 WBC (Bld) 1 % Normal 0.0-2.0 [facility] Comment on above: Performed By: #### T ROPI, CMPX, TATO, LIP, LACTIC, PT #### [place] [address] [employer] Officer: Luis M Coker MD Eosinophils (Bld) [#/Vol] 0.35 10*3/uL Normal 0.05-0.50 [facility] Comment on above: Performed By: #### T ROPI, CMPX, TATO, LIP, LACTIC, PT #### [place] [address] [employer] Officer: Luis M Coker MD Eosinophils/100 WBC (Bld) 4 % Normal 0-6 [facility] Comment on above: Performed By: #### T ROPI, CMPX, TATO, LIP, LACTIC, PT #### [place] [address] [employer] Officer: Luis M Coker MD Erythrocyte distribution width (RBC) [Ratio] 13.6 % Normal 11.5-15.0 [facility] Comment on above: Performed By: #### T ROPI, CMPX, TATO, LIP, LACTIC, PT #### [place] [address] [employer] Officer: Luis M Coker MD Hematocrit (Bld) [Volume fraction] 45.3 % Normal 37.0-54.0 [facility] Comment on above: Performed By: #### T ROPI, CMPX, TATO, LIP, LACTIC, PT #### [address] [place] [address] [employer] Officer: Luis M Coker MD Hemoglobin (Bld) [Mass/Vol] 16.4 g/dL Normal 12.5-16.5 [facility] Comment on above: Performed By: #### T ROPI, CMPX, TATO, LIP, LACTIC, PT #### [place] [address] [employer] Officer: Luis M Coker MD Immature granulocytes/100 WBC (Bld) 1 % Normal 0.0-5.0 [facility] Comment on above: Performed By: #### T ROPI, CMPX, TATO, LIP, LACTIC, PT #### [place] [address] [employer] Officer: Luis M Coker MD Lymphocytes (Bld) [#/Vol] 3.03 10*3/uL Normal 1.50-4.00 [facility] Comment on above: Performed By: #### T ROPI, CMPX, TATO, LIP, LACTIC, PT #### [place] [address] [employer] Officer: Luis M Coker MD Lymphocytes/100 WBC (Bld) 35 % Normal 20.0-42.0 [facility] Comment on above: Performed By: #### T ROPI, CMPX, TATO, LIP, LACTIC, PT #### [address] [place] [address] [employer] Officer: Luis M Coker MD MCH (RBC) [Entitic mass] 30.5 pg Normal 26.0-35.0 [facility] Comment on above: Performed By: #### T ROPI, CMPX, TATO, LIP, LACTIC, PT #### [address] [place] [address] [employer] Officer: Luis M Coker MD MCHC (RBC) [Mass/Vol] 36.2 g/dL High 32.0-34.5 [facility] Comment on above: Performed By: #### T ROPI, CMPX, TATO, LIP, LACTIC, PT #### [address] [place] [address] [employer] Officer: Luis M Coker MD MCV (RBC) [Entitic vol] 84.4 fL Normal 80.0-99.9 [facility] Comment on above: Performed By: #### T ROPI, CMPX, TATO, LIP, LACTIC, PT #### [address] [place] [address] [employer] Officer: Luis M Coker MD Monocytes (Bld) [#/Vol] 0.80 10*3/uL Normal 0.10-0.95 [facility] Comment on above: Performed By: #### T ROPI, CMPX, TATO, LIP, LACTIC, PT #### [address] [place] [address] [employer] Officer: Luis M Coker MD Monocytes/100 WBC (Bld) 9 % Normal 2.0-12.0 [facility] Comment on above: Performed By: #### T ROPI, CMPX, TATO, LIP, LACTIC, PT #### [address] [place] [address] [employer] Officer: Luis M Coker MD Neutrophil (Seg) 51 % Normal 43.0-80.0 [facility] Comment on above: Performed By: #### T ROPI, CMPX, TATO, LIP, LACTIC, PT #### [address] [place] [address] [employer] Officer: Luis M Coker MD Platelet mean volume (Bld) [Entitic vol] 8.5 fL Normal 7.0-12.0 [facility] Comment on above: Performed By: #### T ROPI, CMPX, TATO, LIP, LACTIC, PT #### [facility] [address] [place] [address] [employer] Officer: Luis M Coker MD Platelets (Bld) [#/Vol] 320 10*3/uL Normal 130-450 [facility] Comment on above: Performed By: #### T ROPI, CMPX, TATO, LIP, LACTIC, PT #### [place] [address] [place] [address] [employer] Officer: Luis M Coker MD RBC (Bld) [#/Vol] 5.37 10*6/uL Normal 3.80-5.80 [facility] Comment on above: Performed By: #### T ROPI, CMPX, TATO, LIP, LACTIC, PT #### [place] [address] [place] [address] [employer] Officer: Luis M Coker MD WBC (Bld) [#/Vol] 8.7 10*3/uL Normal 4.5-11.5 [facility] Comment on above: Performed By: #### T ROPI, CMPX, TATO, LIP, LACTIC, PT #### [place] [address] [place] [address] [employer] Officer: Luis M Coker MD CT CERVICAL SPINE WO CONTRAS Ton 07-06-2023 CT CERVICAL SPINE WO CONTRAST EXAMINATION: CT OF THE CERVICAL SPINE WITHOUT CONTRAST 07/06/2023 10:07 pm TECHNIQUE: CT of the cervical spine was performed without the administration of intravenous contrast. Multiplanar reformatted images are provided for review. Automated exposure control, iterative reconstruction, and/or weight based adjustment of the mA/kV was utilized to reduce the radiation dose to as low as reasonably achievable. COMPARISON: None. HISTORY: ORDERING SYSTEM PROVIDED HISTORY: fall TECHNOLOGIST PROVIDED HISTORY: Reason for exam:->fall Decision Support Exception - unselect if not a suspected or confirmed emergency medical condition->Emergency Medical Condition ([place]) What reading provider will be dictating this exam?->CRC FINDINGS: BONES/ALIGNMENT: There is no acute fracture or traumatic malalignment. DEGENERATIVE CHANGES: There is mild multilevel discogenic change most pronounced at the C5-6 level without evidence of acute fracture or subluxation. SOFT TISSUES: There is no prevertebral soft tissue swelling. IMPRESSION: No acute abnormality of the cervical spine. Interpreted by: Juan Miguel Gamez III, DO Signed by: Juan Miguel Gamez III, DO 07/06/23 Final result Normal [facility] Comment on above: Order Comment: Reaso n for exam:->fallDecision Support Exception - unselect if not a suspected or confirmed emergency medical condition->Emergency Medical Condition (MA)What reading provider will be dictating this exam?->CRC CT Cervical spine WO contras ton 07-06-2023 No acute abnormality of the cervical spine. [facility] EXAMINATION: CT OF THE CERVICAL SPINE WITHOUT CONTRAST 07/06/2023 10:07 pm TECHNIQUE: CT of the cervical spine was performed without the administration of intravenous contrast. Multiplanar reformatted images are provided for review. Automated exposure control, iterative reconstruction, and/or weight based adjustment of the mA/kV was utilized to reduce the radiation dose to as low as reasonably achievable. COMPARISON: None. HISTORY: ORDERING SYSTEM PROVIDED HISTORY: fall TECHNOLOGIST PROVIDED HISTORY: Reason for exam:->fall Decision Support Exception - unselect if not a suspected or confirmed emergency medical condition->Emergency Medical Condition (MA) What reading provider will be dictating this exam?->CRC FINDINGS: BONES/ALIGNMENT: There is no acute fracture or traumatic malalignment. DEGENERATIVE CHANGES: There is mild multilevel discogenic change most pronounced at the C5-6 level without evidence of acute fracture or subluxation. SOFT TISSUES: There is no prevertebral soft tissue swelling. [facility] Juan Miguel Gamez III, DO - 07/06/2023 EXAMINATION: CT OF THE CERVICAL SPINE WITHOUT CONTRAST 07/06/2023 10:07 pm TECHNIQUE: CT of the cervical spine was performed without the administration of intravenous contrast. Multiplanar reformatted images are provided for review. Automated exposure control, iterative reconstruction, and/or weight based adjustment of the mA/kV was utilized to reduce the radiation dose to as low as reasonably achievable. COMPARISON: None. HISTORY: ORDERING SYSTEM PROVIDED HISTORY: fall TECHNOLOGIST PROVIDED HISTORY: Reason for exam:->fall Decision Support Exception - unselect if not a suspected or confirmed emergency medical condition->Emergency Medical Condition (MA) What reading provider will be dictating this exam?->CRC FINDINGS: BONES/ALIGNMENT: There is no acute fracture or traumatic malalignment. DEGENERATIVE CHANGES: There is mild multilevel discogenic change most pronounced at the C5-6 level without evidence of acute fracture or subluxation. SOFT TISSUES: There is no prevertebral soft tissue swelling. IMPRESSION: No acute abnormality of the cervical spine. [facility] CT HEAD WO CONTRASTon 2023 CT HEAD WO CONTRAST EXAMINATION: CT OF THE HEAD WITHOUT CONTRAST 07/06/2023 10:07 pm TECHNIQUE: CT of the head was performed without the administration of intravenous contrast. Automated exposure control, iterative reconstruction, and/or weight based adjustment of the mA/kV was utilized to reduce the radiation dose to as low as reasonably achievable. COMPARISON: 06/30/2023 HISTORY: ORDERING SYSTEM PROVIDED HISTORY: Evaluate intracranial abnormality TECHNOLOGIST PROVIDED HISTORY: Has a code stroke or stroke alert been called?->No Reason for exam:->Evaluate intracranial abnormality Decision Support Exception - unselect if not a suspected or confirmed emergency medical condition->Emergency Medical Condition (MA) What reading provider will be dictating this exam?->CRC FINDINGS: BRAIN/VENTRICLES: There is no acute intracranial hemorrhage, mass effect or midline shift. No abnormal extra-axial fluid collection. The ma-white differentiation is maintained without evidence of an acute infarct. There is no evidence of hydrocephalus. ORBITS: The visualized portion of the orbits demonstrate no acute abnormality. SINUSES: The visualized paranasal sinuses and mastoid air cells demonstrate no acute abnormality. SOFT TISSUES/SKULL: No acute abnormality of the visualized skull or soft tissues. IMPRESSION: No acute intracranial abnormality. Interpreted by: Juan Miguel Gamez III, DO Signed by: Juan Miguel Gamez III, DO 07/06/23 Final result Normal [facility] Comment on above: Order Comment: Has a code stroke or stroke alert been called?->NoReason for exam:->Evaluate intracranial abnormalityDecision Support Exception - unselect if not a suspected or confirmed emergency medical condition->Emergency Medical Condition (MA)What reading provider will be dictating this exam?->CRC CT Head WO contraston 2023 No acute intracrania l abnormality. [facility] EXAMINATION: CT OF THE HEAD WITHOUT CONTRAST 07/06/2023 10:07 pm TECHNIQUE: CT of the head was performed without the administration of intravenous contrast. Automated exposure control, iterative reconstruction, and/or weight based adjustment of the mA/kV was utilized to reduce the radiation dose to as low as reasonably achievable. COMPARISON: 06/30/2023 HISTORY: ORDERING SYSTEM PROVIDED HISTORY: Evaluate intracranial abnormality TECHNOLOGIST PROVIDED HISTORY: Has a code stroke or stroke alert been called?->No Reason for exam:->Evaluate intracranial abnormality Decision Support Exception - unselect if not a suspected or confirmed emergency medical condition->Emergency Medical Condition (MA) What reading provider will be dictating this exam?->CRC FINDINGS: BRAIN/VENTRICLES: There is no acute intracranial hemorrhage, mass effect or midline shift. No abnormal extra-axial fluid collection. The ma-white differentiation is maintained without evidence of an acute infarct. There is no evidence of hydrocephalus. ORBITS: The visualized portion of the orbits demonstrate no acute abnormality. SINUSES: The visualized paranasal sinuses and mastoid air cells demonstrate no acute abnormality. SOFT TISSUES/SKULL: No acute abnormality of the visualized skull or soft tissues. [facility] Juan Miguel Gamez III , DO - 07/06/2023 EXAMINATION: CT OF THE HEAD WITHOUT CONTRAST 07/06/2023 10:07 pm TECHNIQUE: CT of the head was performed without the administration of intravenous contrast. Automated exposure control, iterative reconstruction, and/or weight based adjustment of the mA/kV was utilized to reduce the radiation dose to as low as reasonably achievable. COMPARISON: 06/30/2023 HISTORY: ORDERING SYSTEM PROVIDED HISTORY: Evaluate intracranial abnormality TECHNOLOGIST PROVIDED HISTORY: Has a code stroke or stroke alert been called?->No Reason for exam:->Evaluate intracranial abnormality Decision Support Exception - unselect if not a suspected or confirmed emergency medical condition->Emergency Medical Condition (MA) What reading provider will be dictating this exam?->CRC FINDINGS: BRAIN/VENTRICLES: There is no acute intracranial hemorrhage, mass effect or midline shift. No abnormal extra-axial fluid collection. The ma-white differentiation is maintained without evidence of an acute infarct. There is no evidence of hydrocephalus. ORBITS: The visualized portion of the orbits demonstrate no acute abnormality. SINUSES: The visualized paranasal sinuses and mastoid air cells demonstrate no acute abnormality. SOFT TISSUES/SKULL: No acute abnormality of the visualized skull or soft tissues. IMPRESSION: No acute intracranial abnormality. [facility] CT Head WO contrastOrdered B y: Juan Miguel Gamez on 07-06-2023 [facility] Work Phone: Comp Metabolic Profon 2023 Albumin [Mass/Vol] 4.8 g/dL Normal 3.5-5.2 [facility] Comment on above: Performed By: #### T ROPI, CMPX, TATO, LIP, LACTIC, PT #### [address] [address] [employer] Officer: Luis M Coker MD Alkaline Phos 106 U/L Normal 40-129 [facility] Comment on above: Performed By: #### T ROPI, CMPX, TATO, LIP, LACTIC, PT #### [address] [address] [employer] Officer: Luis M Coker MD ALT [Catalytic activity/Vol] 52 U/L High 0-40 [facility] Comment on above: Performed By: #### T ROPI, CMPX, TATO, LIP, LACTIC, PT #### [address] [address] [employer] Officer: Luis M Coker MD Anion gap [Moles/Vol] 16 mmol/L Normal 7-16 [facility] Comment on above: Performed By: #### T ROPI, CMPX, TATO, LIP, LACTIC, PT #### [address] [place] [address] [employer] Officer: Luis M Coker MD AST [Catalytic activity/Vol] 29 U/L Normal 0-39 [facility] Comment on above: Performed By: #### T ROPI, CMPX, TATO, LIP, LACTIC, PT #### [address] [place] [address] [employer] Officer: Luis M Coker MD Bilirubin [Mass/Vol] mg/dL Normal 0.0-1.2 [facility] Comment on above: Performed By: #### T ROPI, CMPX, TATO, LIP, LACTIC, PT #### [address] [address] [employer] Officer: Luis M Coker MD Calcium [Mass/Vol] 9.2 mg/dL Normal 8.6-10.2 [facility] Comment on above: Performed By: #### T ROPI, CMPX, TATO, LIP, LACTIC, PT #### [address] [place] [address] [employer] Officer: Luis M Coker MD Chloride [Moles/Vol] 106 mmol/L Normal 98-107 [facility] Comment on above: Performed By: #### T ROPI, CMPX, TATO, LIP, LACTIC, PT #### [address] [place] [address] [employer] Officer: Luis M Coker MD CO2 [Moles/Vol] 20 mmol/L Low 22-29 [facility] Comment on above: Performed By: #### T ROPI, CMPX, TATO, LIP, LACTIC, PT #### [address] [address] [employer] Officer: Luis M Coker MD Creatinine [Mass/Vol] 1.1 mg/dL Normal 0.70-1.20 [facility] Comment on above: Performed By: #### T ROPI, CMPX, TATO, LIP, LACTIC, PT #### [address] [address] [employer] Officer: Luis M Coker MD GFR/1.73 sq M.predicted among non-blacks MDRD (S/P/Bld) [Vol rate/Area] mL/min/{1.73_m2} Normal >60 [facility] Comment on above: Result Comment: These results are not intended for use in patients <18 years of age. eGFR results are calculated without a race factor using the 2020 CKD-EPI equation. Careful clinical correlation is recommended, particularly when comparing to results calculated using previous equations. The CKD-EPI equation is less accurate in patients with extremes of muscle mass, extra-renal metabolism of creatine, excessive creatine ingestion, or following therapy that affects renal tubular secretion. Performed By: #### T ROPI, CMPX, TATO, LIP, LACTIC, PT #### [address] [address] [employer] Officer: Luis M Coker MD Glucose [Mass/Vol] 90 mg/dL Normal 74-99 [facility] Comment on above: Performed By: #### T ROPI, CMPX, TATO, LIP, LACTIC, PT #### [address] [place] [address] [employer] Officer: Luis M Coker MD Potassium [Moles/Vol] 3.9 mmol/L Normal 3.5-5.0 [facility] Comment on above: Performed By: #### T ROPI, CMPX, TATO, LIP, LACTIC, PT #### [address] [address] [employer] Officer: Luis M Coker MD Protein [Mass/Vol] 8.2 g/dL Normal 6.4-8.3 [facility] Comment on above: Performed By: #### T ROPI, CMPX, TATO, LIP, LACTIC, PT #### [place] [address] [facility] [place] [address] [employer] Officer: Luis M Coker MD Sodium [Moles/Vol] 142 mmol/L Normal 132-146 [facility] Comment on above: Performed By: #### T ROPI, CMPX, TATO, LIP, LACTIC, PT #### [place] [id number] [facility] [place] [address] [employer] Officer: Luis M Coker MD Urea nitrogen [Mass/Vol] 14 mg/dL Normal 6-20 [facility] Comment on above: Performed By: #### T ROPI, CMPX, TATO, LIP, LACTIC, PT #### [address] [place] [address] [employer] Officer: Luis M Coker MD Comprehensive Metabolic Pane [facility] 07-06-2023 Albumin [Mass/Vol] 4.8 g/dL 3.5 - 5.2 g/dL [facility] ALP [Catalytic activity/Vol] 106 U/L 40 - 129 U/L [facility] ALT [Catalytic activity/Vol] 52 U/L High 0 - 40 U/L [facility] Anion gap [Moles/Vol] 16 mmol/L 7 - 16 mmol/L [facility] AST [Catalytic activity/Vol] 29 U/L 0 - 39 U/L [facility] Bilirubin [Mass/Vol] mg/dL 0.0 - 1 .2 mg/dL [facility] Calcium [Mass/Vol] 9.2 mg/dL 8.6 - 10. 2 mg/dL [facility] Chloride [Moles/Vol] 106 mmol/L 98 - 10 7 mmol/L [facility] CO2 [Moles/Vol] 20 mmol/L Low 22 - 29 mmol/L [facility] Creatinine [Mass/Vol] 1.1 mg/dL 0.70 - 1.20 mg/dL [facility] Est, Malorie Benoit Rate - [facility] Comment on above: These results are not intended for use in patients <18 years of age. eGFR results are calculated without a race factor using the 2020 CKD-EPI equation. Careful clinical correlation is recommended, particularly when comparing to results calculated using previous equations. The CKD-EPI equation is less accurate in patients with extremes of muscle mass, extra-renal metabolism of creatine, excessive creatine ingestion, or following therapy that affects renal tubular secretion. Glucose [Mass/Vol] 90 mg/dL 74 - 99 mg/dL [facility] Interpretation and review of laboratory results Abnormal [facility] Potassium [Moles/Vol] 3.9 mmol/L 3.5 - 5.0 mmol/L [facility] Protein [Mass/Vol] 8.2 g/dL 6.4 - 8.3 g/dL [facility] Sodium [Moles/Vol] 142 mmol/L 132 - 146 mmol/L [facility] Urea nitrogen [Mass/Vol] 14 mg/dL 6 - 20 mg/dL [facility] Drug Scr, Abuse, Uron 2023 Amphetamine(s),Ur Negative Normal NEG [facility] Comment on above: Result Comment: Cuto ff: 1000 ng/mL Performed By: #### C BCWD #### [address] [place] [address] [employer] Officer: Luis M Coker MD Barbiturate(s),Ur Positive Abnormal NEG [facility] Comment on above: Result Comment: Cuto ff: 200 ng/ml Performed By: #### C BCWD #### [address] [place] [address] [employer] Officer: Luis M Coker MD Benzodiazepine(s) Positive Abnormal NEG [facility] Comment on above: Result Comment: Cuto ff: 200 ng/ml Performed By: #### C BCWD #### [address] [place] [address] [employer] Officer: Luis M Coker MD Buprenorphrine, Ur Negative Normal NEG [facility] Comment on above: Result Comment: Cuto ff: 5 ng/ml Performed By: #### C BCWD #### [address] [place] [address] [employer] Officer: Luis M Coker MD Cannabinoid(s),Ur Negative Normal NEG [facility] Comment on above: Result Comment: Cuto ff: 50 ng/ml Performed By: #### C BCWD #### [address] [place] [address] [employer] Officer: Luis M Coker MD Cocaine Metabolite Negative Normal NEG [facility] Comment on above: Result Comment: Cuto ff: 300 ng/ml Performed By: #### C BCWD #### [address] [place] [address] [employer] Officer: Luis M Coker MD Fentanyl, Urine Negative Normal NEG [facility] Comment on above: Result Comment: Cuto ff: 1.0 ng/ml Performed By: #### C BCWD #### [address] [place] [address] [employer] Officer: Luis M Coker MD Interpretive Info These drug screen results are for medical purposes only and should not be Normal [facility] Comment on above: Result Comment: cons idered definitive or confirmed. The drug methodology concentration value must be greater than or equal to the cutoff to be reported as positive. Confirmtory testing orders and/or interpretive sceening questions can be directed to toxicology at [phone]. The absence of expected drug(s) and/or metabolite(s) may be due to inappropriate timing of specimen collection relative to drug administration, poor drug absorption, diluted/adulterated urine, or limitations of screening methodology. Performed By: #### C BCWD #### [address] [facility] [place] [address] [employer] Officer: Luis M Coker MD Methadone Ql (U) Negative Normal NEG [facility] Comment on above: Result Comment: Cuto ff: 300 ng/ml Performed By: #### C BCWD #### [address] [place] [address] [employer] Officer: Luis M Coker MD Opiate(s), Ur Negative Normal NEG [facility] Comment on above: Result Comment: Cuto ff: 300 ng/ml Note: The Opiate screen is not intended to detect Oxycodone. Performed By: #### C BCWD #### [place] [address] [employer] Officer: Luis M Coker MD Oxycodone, Urine Negative Normal NEG [facility] Comment on above: Result Comment: Cuto ff: 100 ng/ml Performed By: #### C BCWD #### [address] [address] [employer] Officer: Luis M Coker MD Phencyclidine, Ur Negative Normal NEG [facility] Comment on above: Result Comment: Cuto ff: 25 ng/ml Performed By: #### C BCWD #### [place] [address] [employer] Officer: Luis M Coker MD No Panel Informationon 07-05 Radiology Study observation (narrative) [facility] SERUM DRUG SCREENon 07-06-19 24 Acetaminophen [Mass/Vol] ug/mL Low 10.0 - 30.0 ug/mL [facility] Ethanolamine [Mass/Vol] 276 mg/dL High NINF - 10 mg/dL [facility] Interpretation and review of laboratory results Abnormal [facility] Salicylates [Mass/Vol] mg/dL 0.0 - 30.0 mg/dL [facility] Toxic Tricyclic Sc,Blood Negative NEGATIVE [facility] Comment on above: Cutoff: 300 ng/ml [facility] Tox Scr, Bld, EDon 4 Acetaminophen [Mass/Vol] ug/mL Low 10.0-30.0 [facility] Comment on above: Performed By: #### T ROPI, CMPX, TATO, LIP, LACTIC, PT #### [place] [address] [employer] Officer: Luis M Coker MD Ethanol [Mass/Vol] 276 mg/dL High <10 [facility] Comment on above: Performed By: #### T ROPI, CMPX, TATO, LIP, LACTIC, PT #### [place] [address] [employer] Officer: Luis M Coker MD Salicylate <0.3 Normal 0.0-30.0 [facility] Comment on above: Performed By: #### T ROPI, CMPX, TATO, LIP, LACTIC, PT #### [place] [address] [employer] Officer: Luis M Coker MD Toxic Tricyclic Sc,Bl Negative Normal NEG [facility] Comment on above: Result Comment: Cuto ff: 300 ng/ml Performed By: #### T ROPI, CMPX, TATO, LIP, LACTIC, PT #### [place] [address] [employer] Officer: Luis M Coker MD URINE DRUG SCREENon 07-06-19 24 Amphetamines Ql (U) Negative NEGATIVE [facility] Comment on above: Cutoff: 1000 ng/mL Barbiturates Screen Ql (U) Positive Abnormal NEGATIVE [facility]X [facility] Comment on above: Cutoff: 200 ng/ml Benzodiazepines Ql (U) Positive Abnormal NEGATIVE [facility] Comment on above: Cutoff: 200 ng/ml Buprenorphine Ql (U) Negative NEGATIVE [facility] Comment on above: Cutoff: 5 ng/ml Cannabinoids Screen Ql (U) Negative NEGATIVE [facility] Comment on above: Cutoff: 50 ng/ml Cocaine Ql (U) Negative NEGATIVE [facility] Comment on above: Cutoff: 300 ng/ml fentaNYL Ql (U) Negative NEGATIVE [facility] Comment on above: Cutoff: 1.0 ng/ml Interpretation and review of laboratory results Abnormal [facility] Methadone Ql (U) Negative NEGATIVE [facility] Comment on above: Cutoff: 300 ng/ml Opiates Screen Ql (U) Negative NEGATIVE [facility] Comment on above: Cutoff: 300 ng/ml Note: The Opiate screen is not intended to detect Oxycodone. oxyCODONE Ql (U) Negative NEGATIVE [facility] Comment on above: Cutoff: 100 ng/ml Phencyclidine Ql (U) Negative NEGATIVE [facility] Comment on above: Cutoff: 25 ng/ml Test Information These drug screen results are for medical purposes only and should not be considered definitive or confirmed. [facility] Comment on above: The drug methodology concentration value must be greater than or equal to the cutoff to be reported as positive. Confirmtory testing orders and/or interpretive sceening questions can be directed to toxicology at [phone]. The absence of expected drug(s) and/or metabolite(s) may be due to inappropriate timing of specimen collection relative to drug administration, poor drug absorption, diluted/adulterated urine, or limitations of screening methodology. [facility] CBC with Diffon 07-02-2023 Abs. Basophil 0.05 k/uL Normal 0.00-0.20 [facility] Comment on above: Performed By: #### C BCWD #### [address] [id number] [employer] Officer: Luis M Coker MD Abs.Imm.Granulocyte <0.03 Normal 0.00-0.58 [facility] Comment on above: Performed By: #### C BCWD #### [address] [address] [employer] Officer: Luis M Coker MD Abs.Neutrophil (Seg) 3.03 k/uL Normal 1.80-7.30 [facility] Comment on above: Performed By: #### C BCWD #### [address] [place] [address] [employer] Officer: Luis M Coker MD Basophils/100 WBC (Bld) 1 % Normal 0.0-2.0 [facility] Comment on above: Performed By: #### C BCWD #### [address] [address] [employer] Officer: Luis M Coker MD Eosinophils (Bld) [#/Vol] 0.23 10*3/uL Normal 0.05-0.50 [facility] Comment on above: Performed By: #### C BCWD #### [place] [address] [employer] Officer: Luis M Coker MD Eosinophils/100 WBC (Bld) 3 % Normal 0-6 [facility] Comment on above: Performed By: #### C BCWD #### [address] [address] [employer] Officer: Luis M Coker MD Erythrocyte distribution width (RBC) [Ratio] 13.4 % Normal 11.5-15.0 [facility] Comment on above: Performed By: #### C BCWD #### [address] [address] [employer] Officer: Luis M Coker MD Hematocrit (Bld) [Volume fraction] 43.6 % Normal 37.0-54.0 [facility] Comment on above: Performed By: #### C BCWD #### [place] [address] [employer] Officer: Luis M Coker MD Hemoglobin (Bld) [Mass/Vol] 15.5 g/dL Normal 12.5-16.5 [facility] Comment on above: Performed By: #### C BCWD #### [address] [address] [employer] Officer: Luis M Coker MD Immature granulocytes/100 WBC (Bld) 0 % Normal 0.0-5.0 [facility] Comment on above: Performed By: #### C BCWD #### [address] [address] [employer] Officer: Luis M Coker MD Lymphocytes (Bld) [#/Vol] 3.43 10*3/uL Normal 1.50-4.00 [facility] Comment on above: Performed By: #### C BCWD #### [address] [address] [employer] Officer: Luis M Coker MD Lymphocytes/100 WBC (Bld) 47 % High 20.0-42.0 [facility] Comment on above: Performed By: #### C BCWD #### [address] [address] [employer] Officer: Luis M Coker MD MCH (RBC) [Entitic mass] 30.2 pg Normal 26.0-35.0 [facility] Comment on above: Performed By: #### C BCWD #### [address] [address] [employer] Officer: Luis M Coker MD MCHC (RBC) [Mass/Vol] 35.6 g/dL High 32.0-34.5 [facility] Comment on above: Performed By: #### C BCWD #### [address] [address] [employer] Officer: Luis M Coker MD MCV (RBC) [Entitic vol] 85.0 fL Normal 80.0-99.9 [facility] Comment on above: Performed By: #### C BCWD #### [address] [address] [employer] Officer: Luis M Coker MD Monocytes (Bld) [#/Vol] 0.57 10*3/uL Normal 0.10-0.95 [facility] Comment on above: Performed By: #### C BCWD #### [place] [address] [employer] Officer: Luis M Coker MD Monocytes/100 WBC (Bld) 8 % Normal 2.0-12.0 [facility] Comment on above: Performed By: #### C BCWD #### [place] [id number] [employer] Officer: Luis M Coker MD Neutrophil (Seg) 41 % Low 43.0-80.0 [facility] Comment on above: Performed By: #### C BCWD #### [place] [id number] [employer] Officer: Luis M Coker MD Platelet mean volume (Bld) [Entitic vol] 8.3 fL Normal 7.0-12.0 [facility] Comment on above: Performed By: #### C BCWD #### [place] [address] [employer] Officer: Luis M Coker MD Platelets (Bld) [#/Vol] 336 10*3/uL Normal 130-450 [facility] Comment on above: Performed By: #### C BCWD #### [place] [address] [employer] Officer: Luis M Coker MD RBC (Bld) [#/Vol] 5.13 10*6/uL Normal 3.80-5.80 [facility] Comment on above: Performed By: #### C BCWD #### [facility] [address] [place] [address] [place] [address] [employer] Officer: Luis M Coker MD WBC (Bld) [#/Vol] 7.3 10*3/uL Normal 4.5-11.5 [facility] Comment on above: Performed By: #### C BCWD #### [address] [place] [address] [employer] Officer: Luis M Coker MD Comp Metabolic Profon 2023 Albumin [Mass/Vol] 4.2 g/dL Normal 3.5-5.2 [facility] Comment on above: Performed By: #### C BCWD #### [address] [place] [address] [employer] Officer: Luis M Coker MD Alkaline Phos 108 U/L Normal 40-129 [facility] Comment on above: Performed By: #### C BCWD #### [address] [place] [address] [employer] Officer: Luis M Coker MD ALT [Catalytic activity/Vol] U/L Normal 0-40 [facility] Comment on above: Result Comment: Spec imen lipemia has exceeded the interference as defined by Kia. Results may be affected. Performed By: #### C BCWD #### [address] [place] [address] [employer] Officer: Luis M Coker MD Anion gap [Moles/Vol] 15 mmol/L Normal 7-16 [facility] Comment on above: Performed By: #### C BCWD #### [address] [place] [address] [employer] Officer: Luis M Coker MD AST [Catalytic activity/Vol] U/L Normal 0-39 [facility] Comment on above: Result Comment: SPEC IMEN SLIGHTLY HEMOLYZED, RESULTS MAY BE ADVERSELY AFFECTED. Specimen lipemia has exceeded the interference as defined by Kia. Results may be affected. Performed By: #### C BCWD #### [address] [place] [address] [employer] Officer: Luis M Coker MD Bilirubin [Mass/Vol] mg/dL Normal 0.0-1.2 [facility] Comment on above: Performed By: #### C BCWD #### [address] [place] [address] [employer] Officer: Luis M Coker MD Calcium [Mass/Vol] 8.5 mg/dL Low 8.6-10.2 [facility] Comment on above: Performed By: #### C BCWD #### [address] [place] [address] [employer] Officer: Luis M Coker MD Chloride [Moles/Vol] 105 mmol/L Normal 98-107 [facility] Comment on above: Performed By: #### C BCWD #### [address] [address] [employer] Officer: Luis M Coker MD CO2 [Moles/Vol] 19 mmol/L Low 22-29 [facility] Comment on above: Performed By: #### C BCWD #### [address] [address] [employer] Officer: Luis M Coker MD Creatinine [Mass/Vol] 1.3 mg/dL High 0.70-1.20 [facility] Comment on above: Performed By: #### C BCWD #### [address] [address] [employer] Officer: Luis M Coker MD GFR/1.73 sq M.predicted among non-blacks MDRD (S/P/Bld) [Vol rate/Area] 75 mL/min/{1.73_m2} Normal >60 [facility] Comment on above: Result Comment: These results are not intended for use in patients <18 years of age. eGFR results are calculated without a race factor using the 2020 CKD-EPI equation. Careful clinical correlation is recommended, particularly when comparing to results calculated using previous equations. The CKD-EPI equation is less accurate in patients with extremes of muscle mass, extra-renal metabolism of creatine, excessive creatine ingestion, or following therapy that affects renal tubular secretion. Performed By: #### C BCWD #### [address] [address] [employer] Officer: Luis M Coker MD Glucose [Mass/Vol] 103 mg/dL High 74-99 [facility] Comment on above: Performed By: #### C BCWD #### [address] [address] [employer] Officer: Luis M Coker MD Potassium [Moles/Vol] 4.1 mmol/L Normal 3.5-5.0 [facility] Comment on above: Performed By: #### C BCWD #### [address] [address] [employer] Officer: Luis M Coker MD Protein [Mass/Vol] 7.1 g/dL Normal 6.4-8.3 [facility] Comment on above: Performed By: #### C BCWD #### [address] [address] [employer] Officer: Luis M Coker MD Sodium [Moles/Vol] 139 mmol/L Normal 132-146 [facility] Comment on above: Performed By: #### C BCWD #### [address] [place] [address] [employer] Officer: Luis M Coker MD Urea nitrogen [Mass/Vol] 14 mg/dL Normal 6-20 [facility] Comment on above: Performed By: #### C BCWD #### [address] [address] [employer] Officer: Luis M Coker MD Tox Scr, Bld, EDon Acetaminophen [Mass/Vol] ug/mL Low 10.0-30.0 [facility] Comment on above: Performed By: #### C BCWD #### [address] [address] [employer] Officer: Luis M Coker MD Ethanol [Mass/Vol] 215 mg/dL High <10 [facility] Comment on above: Performed By: #### C BCWD #### [address] [address] [employer] Officer: Luis M Coker MD Salicylate <0.3 Normal 0.0-30.0 [facility] Comment on above: Performed By: #### C BCWD #### [address] [address] [employer] Officer: Luis M Coker MD Toxic Tricyclic Sc,Bl Negative Normal NEG [facility] Comment on above: Result Comment: Cuto ff: 300 ng/ml Performed By: #### C BCWD #### [address] [address] [employer] Officer: Luis M Coker MD CBC with Auto Differentialon 07-01-2023 Basophils (Bld) [#/Vol] 0.03 10*3/uL [facility] Basophils/100 WBC (Bld) 0 % 0.0 - 2.0 % [facility] Eosinophils (Bld) [#/Vol] 0.23 10*3/uL [facility] Eosinophils/100 WBC (Bld) 3 % 0 - 6 % [facility] Erythrocyte distribution width (RBC) [Ratio] 13.3 % 11.5 - 15.0 % [facility] Hematocrit (Bld) [Volume fraction] 43.6 % 37.0 - 54.0 % [facility] Hemoglobin (Bld) [Mass/Vol] 15.2 g/dL 12.5 - 16.5 g/dL [facility] Immature granulocytes (Bld) [#/Vol] [facility] Immature granulocytes/100 WBC (Bld) 0 % 0.0 - 5.0 % [facility] Interpretation and review of laboratory results Abnormal [facility] Lymphocytes/100 WBC (Bld) 37 % 20.0 - 42.0 % [facility] Lymphocytes/100 WBC (Bld) 2.69 % [facility] MCH (RBC) [Entitic mass] 29.2 pg 26.0 - 35.0 pg [facility] MCHC (RBC) [Mass/Vol] 34.9 g/dL High 32.0 - 34.5 g/dL [facility] MCV (RBC) [Entitic vol] 83.7 fL 80.0 - 99.9 fL [facility] Monocytes/100 WBC (Bld) 8 % 2.0 - 12.0 % [facility] Monocytes/100 WBC (Bld) 0.54 % [facility] Neutrophils/100 WBC (Bld) 51 % 43.0 - 80.0 % [facility] Platelet mean volume (Bld) [Entitic vol] 8.5 fL 7.0 - 12.0 fL [facility] Platelets (Bld) [#/Vol] 286 10*3/uL [facility] RBC (Bld) [#/Vol] 5.21 10*6/uL 3.80 - 5.8 0 m/uL [facility] Segmented neutrophils/100 WBC (Bld) 3.70 % [facility] WBC other (Bld) [#/Vol] 7.2 [facility] CBC with Diffon 07-01-2023 Abs. Basophil 0.03 k/uL Normal 0.00-0.20 [facility] Comment on above: Performed By: #### D AU #### [place] [address] [employer] Officer: Luis M Coker MD Abs.Imm.Granulocyte <0.03 Normal 0.00-0.58 [facility] Comment on above: Performed By: #### D AU #### [place] [address] [employer] Officer: Luis M Coker MD Abs.Neutrophil (Seg) 3.70 k/uL Normal 1.80-7.30 [facility] Comment on above: Performed By: #### D AU #### [place] [address] [employer] Officer: Luis M Coker MD Basophils/100 WBC (Bld) 0 % Normal 0.0-2.0 [facility] Comment on above: Performed By: #### D AU #### [place] [address] [employer] Officer: Luis M Coker MD Eosinophils (Bld) [#/Vol] 0.23 10*3/uL Normal 0.05-0.50 [facility] Comment on above: Performed By: #### D AU #### [place] [address] [employer] Officer: Luis M Coker MD Eosinophils/100 WBC (Bld) 3 % Normal 0-6 [facility] Comment on above: Performed By: #### D AU #### [place] [address] [employer] Officer: Luis M Coker MD Erythrocyte distribution width (RBC) [Ratio] 13.3 % Normal 11.5-15.0 [facility] Comment on above: Performed By: #### D AU #### [place] [address] [employer] Officer: Luis M Coker MD Hematocrit (Bld) [Volume fraction] 43.6 % Normal 37.0-54.0 [facility] Comment on above: Performed By: #### D AU #### [place] [address] [employer] Officer: Luis M Coker MD Hemoglobin (Bld) [Mass/Vol] 15.2 g/dL Normal 12.5-16.5 [facility] Comment on above: Performed By: #### D AU #### [place] [address] [employer] Officer: Luis M Coker MD Immature granulocytes/100 WBC (Bld) 0 % Normal 0.0-5.0 [facility] Comment on above: Performed By: #### D AU #### [place] [address] [employer] Officer: Luis M Coker MD Lymphocytes (Bld) [#/Vol] 2.69 10*3/uL Normal 1.50-4.00 [facility] Comment on above: Performed By: #### D AU #### [place] [address] [employer] Officer: Luis M Coker MD Lymphocytes/100 WBC (Bld) 37 % Normal 20.0-42.0 [facility] Comment on above: Performed By: #### D AU #### [address] [address] [employer] Officer: Luis M Coker MD MCH (RBC) [Entitic mass] 29.2 pg Normal 26.0-35.0 [facility] Comment on above: Performed By: #### D AU #### [address] [address] [employer] Officer: Luis M Coekr MD MCHC (RBC) [Mass/Vol] 34.9 g/dL High 32.0-34.5 [facility] Comment on above: Performed By: #### D AU #### [address] [address] [employer] Officer: Luis M Coker MD MCV (RBC) [Entitic vol] 83.7 fL Normal 80.0-99.9 [facility] Comment on above: Performed By: #### D AU #### [place] [address] [employer] Officer: Luis M Coker MD Monocytes (Bld) [#/Vol] 0.54 10*3/uL Normal 0.10-0.95 [facility] Comment on above: Performed By: #### D AU #### [address] [address] [employer] Officer: Luis M Coker MD Monocytes/100 WBC (Bld) 8 % Normal 2.0-12.0 [facility] Comment on above: Performed By: #### D AU #### [address] [address] [employer] Officer: Luis M Coker MD Neutrophil (Seg) 51 % Normal 43.0-80.0 [facility] Comment on above: Performed By: #### D AU #### [address] [place] [address] [employer] Officer: Luis M Coker MD Platelet mean volume (Bld) [Entitic vol] 8.5 fL Normal 7.0-12.0 [facility] Comment on above: Performed By: #### D AU #### [address] [place] [address] [employer] Officer: Luis M Coker MD Platelets (Bld) [#/Vol] 286 10*3/uL Normal 130-450 [facility] Comment on above: Performed By: #### D AU #### [address] [place] [address] [employer] Officer: Luis M Coker MD RBC (Bld) [#/Vol] 5.21 10*6/uL Normal 3.80-5.80 [facility] Comment on above: Performed By: #### D AU #### [address] [place] [address] [employer] Officer: Luis M Coker MD WBC (Bld) [#/Vol] 7.2 10*3/uL Normal 4.5-11.5 [facility] Comment on above: Performed By: #### D AU #### [address] [place] [address] [employer] Officer: Luis M Coker MD Comp Metabolic Profon 2023 Albumin [Mass/Vol] 4.3 g/dL Normal 3.5-5.2 [facility] Comment on above: Performed By: #### D AU #### [address] [place] [address] [employer] Officer: Luis M Coker MD Alkaline Phos 101 U/L Normal 40-129 [facility] Comment on above: Performed By: #### D AU #### [address] [address] [employer] Officer: Luis M Coker MD ALT [Catalytic activity/Vol] 50 U/L High 0-40 [facility] Comment on above: Performed By: #### D AU #### [place] [address] [employer] Officer: Luis M Coker MD Anion gap [Moles/Vol] 17 mmol/L High 7-16 [facility] Comment on above: Performed By: #### D AU #### [place] [address] [employer] Officer: Luis M Coker MD AST [Catalytic activity/Vol] 38 U/L Normal 0-39 [facility] Comment on above: Performed By: #### D AU #### [place] [address] [employer] Officer: Luis M Coker MD Bilirubin [Mass/Vol] 0.3 mg/dL Normal 0.0-1.2 [facility] Comment on above: Performed By: #### D AU #### [place] [address] [employer] Officer: Luis M Coker MD Calcium [Mass/Vol] 8.9 mg/dL Normal 8.6-10.2 [facility] Comment on above: Performed By: #### D AU #### [address] [address] [employer] Officer: Luis M Coker MD Chloride [Moles/Vol] 108 mmol/L High 98-107 [facility] Comment on above: Performed By: #### D AU #### [address] [place] [address] [employer] Officer: Luis M Coker MD CO2 [Moles/Vol] 18 mmol/L Low 22-29 [facility] Comment on above: Performed By: #### D AU #### [address] [place] [address] [employer] Officer: Luis M Coker MD Creatinine [Mass/Vol] 1.2 mg/dL Normal 0.70-1.20 [facility] Comment on above: Performed By: #### D AU #### [address] [address] [employer] Officer: Luis M Coker MD GFR/1.73 sq M.predicted among non-blacks MDRD (S/P/Bld) [Vol rate/Area] 82 mL/min/{1.73_m2} Normal >60 [facility] Comment on above: Result Comment: These results are not intended for use in patients <18 years of age. eGFR results are calculated without a race factor using the 2020 CKD-EPI equation. Careful clinical correlation is recommended, particularly when comparing to results calculated using previous equations. The CKD-EPI equation is less accurate in patients with extremes of muscle mass, extra-renal metabolism of creatine, excessive creatine ingestion, or following therapy that affects renal tubular secretion. Performed By: #### D AU #### [address] [address] [employer] Officer: Luis M Coker MD Glucose [Mass/Vol] 86 mg/dL Normal 74-99 [facility] Comment on above: Performed By: #### D AU #### [address] [address] [employer] Officer: Luis M Coker MD Potassium [Moles/Vol] 4.0 mmol/L Normal 3.5-5.0 [facility] Comment on above: Performed By: #### D AU #### [place] [address] [employer] Officer: Luis M Coker MD Protein [Mass/Vol] 7.1 g/dL Normal 6.4-8.3 [facility] Comment on above: Performed By: #### D AU #### [address] [address] [employer] Officer: Luis M Coker MD Sodium [Moles/Vol] 143 mmol/L Normal 132-146 [facility] Comment on above: Performed By: #### D AU #### [address] [id number] [employer] Officer: Luis M Coker MD Urea nitrogen [Mass/Vol] 14 mg/dL Normal 6-20 [facility] Comment on above: Performed By: #### D AU #### [place] [address] [employer] Officer: Luis M Coker MD Comprehensive Metabolic Pane [facility] 07-01-2023 Albumin [Mass/Vol] 4.3 g/dL 3.5 - 5.2 g/dL [facility] ALP [Catalytic activity/Vol] 101 U/L 40 - 129 U/L [facility] ALT [Catalytic activity/Vol] 50 U/L High 0 - 40 U/L [facility] Anion gap [Moles/Vol] 17 mmol/L High 7 - 16 mmol/L [facility] AST [Catalytic activity/Vol] 38 U/L 0 - 39 U/L [facility] Bilirubin [Mass/Vol] 0.3 mg/dL 0.0 - 1 .2 mg/dL [facility] Calcium [Mass/Vol] 8.9 mg/dL 8.6 - 10. 2 mg/dL [facility] Chloride [Moles/Vol] 108 mmol/L High 98 - 10 7 mmol/L [facility] CO2 [Moles/Vol] 18 mmol/L Low 22 - 29 mmol/L [facility] Creatinine [Mass/Vol] 1.2 mg/dL 0.70 - 1.20 mg/dL [facility] Malorie Perest Rate 82 - PINF [facility] Comment on above: These results are not intended for use in patients <18 years of age. eGFR results are calculated without a race factor using the 2020 CKD-EPI equation. Careful clinical correlation is recommended, particularly when comparing to results calculated using previous equations. The CKD-EPI equation is less accurate in patients with extremes of muscle mass, extra-renal metabolism of creatine, excessive creatine ingestion, or following therapy that affects renal tubular secretion. Glucose [Mass/Vol] 86 mg/dL 74 - 99 mg/dL [facility] Interpretation and review of laboratory results Abnormal [facility] Potassium [Moles/Vol] 4.0 mmol/L 3.5 - 5.0 mmol/L [facility] Protein [Mass/Vol] 7.1 g/dL 6.4 - 8.3 g/dL [facility] Sodium [Moles/Vol] 143 mmol/L 132 - 146 mmol/L [facility] Urea nitrogen [Mass/Vol] 14 mg/dL 6 - 20 mg/dL [facility] Drug Scr, Abuse, Uron 2023 Amphetamine(s),Ur Negative Normal NEG [facility] Comment on above: Result Comment: Cuto ff: 1000 ng/mL Performed By: #### D AU #### [address] [id number] [employer] Officer: Luis M Coker MD Barbiturate(s),Ur Positive Abnormal NEG [facility] Comment on above: Result Comment: Cuto ff: 200 ng/ml Performed By: #### D AU #### [address] [id number] [employer] Officer: Luis M Coker MD Benzodiazepine(s) Positive Abnormal NEG [facility] Comment on above: Result Comment: Cuto ff: 200 ng/ml Performed By: #### D AU #### [address] [place] [address] [employer] Officer: Luis M Coker MD Buprenorphrine, Ur Negative Normal NEG [facility] Comment on above: Result Comment: Cuto ff: 5 ng/ml Performed By: #### D AU #### [address] [place] [address] [employer] Officer: Luis M Coker MD Cannabinoid(s),Ur Negative Normal NEG [facility] Comment on above: Result Comment: Cuto ff: 50 ng/ml Performed By: #### D AU #### [address] [place] [address] [employer] Officer: Luis M Coker MD Cocaine Metabolite Negative Normal NEG [facility] Comment on above: Result Comment: Cuto ff: 300 ng/ml Performed By: #### D AU #### [address] [place] [address] [employer] Officer: Luis M Coker MD Fentanyl, Urine Negative Normal [facility] Comment on above: Result Comment: Cuto ff: 1.0 ng/ml Performed By: #### D AU #### [address] [place] [address] [employer] Officer: Luis M Coker MD Interpretive Info These drug screen results are for medical purposes only and should not be Normal [facility] Comment on above: Result Comment: cons idered definitive or confirmed. The drug methodology concentration value must be greater than or equal to the cutoff to be reported as positive. Confirmtory testing orders and/or interpretive sceening questions can be directed to toxicology at [phone]. The absence of expected drug(s) and/or metabolite(s) may be due to inappropriate timing of specimen collection relative to drug administration, poor drug absorption, diluted/adulterated urine, or limitations of screening methodology. Performed By: #### D AU #### [address] [address] [employer] Officer: Luis M Ckoer MD Methadone Ql (U) Negative Normal NEG [facility] Comment on above: Result Comment: Cuto ff: 300 ng/ml Performed By: #### D AU #### [address] [address] [employer] Officer: Luis M Coker MD Opiate(s), Ur Negative Normal NEG [facility] Comment on above: Result Comment: Cuto ff: 300 ng/ml Note: The Opiate screen is not intended to detect Oxycodone. Performed By: #### D AU #### [place] [address] [employer] Officer: Luis M Coker MD Oxycodone, Urine Negative Normal [facility] Comment on above: Result Comment: Cuto ff: 100 ng/ml Performed By: #### D AU #### [place] [address] [employer] Officer: Luis M Coker MD Phencyclidine, Ur Negative Normal NEG [facility] Comment on above: Result Comment: Cuto ff: 25 ng/ml Performed By: #### D AU #### [place] [address] [employer] Officer: Luis M Coker MD No Panel Informationon 06-30 [facility] SERUM DRUG SCREENon 07-01-19 24 Acetaminophen [Mass/Vol] ug/mL Low 10.0 - 30.0 ug/mL [facility] Ethanolamine [Mass/Vol] 108 mg/dL High NINF - 10 mg/dL [facility] Interpretation and review of laboratory results Abnormal [facility] Salicylates [Mass/Vol] mg/dL 0.0 - 30.0 mg/dL [facility] Toxic Tricyclic Sc,Blood Negative NEGATIVE [facility] Comment on above: Cutoff: 300 ng/ml [facility] Tox Scr, Bld, EDon Acetaminophen [Mass/Vol] ug/mL Low 10.0-30.0 [facility] Comment on above: Performed By: #### D AU #### [place] [address] [employer] Officer: Luis M Coker MD Ethanol [Mass/Vol] 108 mg/dL High <10 [facility] Comment on above: Performed By: #### D AU #### [address] [address] [employer] Officer: Luis M Coker MD Salicylate <0.3 Normal 0.0-30.0 [facility] Comment on above: Performed By: #### D AU #### [address] [address] [employer] Officer: Luis M Coker MD Toxic Tricyclic Sc,Bl Negative Normal NEG [facility] Comment on above: Result Comment: Cuto ff: 300 ng/ml Performed By: #### D AU #### [place] [address] [employer] Officer: Luis M Coker MD Troponin 07-01-2023 Troponin I.cardiac High sensitivity method [Mass/Vol] 7 ng/L 0 - 11 ng/L [facility] Comment on above: High Sensitivity Troponin values cannot be compared with other Troponin methodologies. Patients with high levels of Biotin oral intake (i.e >5mg/day) may have falsely decreased Troponin levels. Samples collected within 8 hours of biotin intake may require additional information for diagnosis. Troponin, High Sens 7 ng/L Normal 0-11 [facility] Comment on above: Result Comment: High Sensitivity Troponin values cannot be compared with other Troponin methodologies. Patients with high levels of Biotin oral intake (i.e >5mg/day) may have falsely decreased Troponin levels. Samples collected within 8 hours of biotin intake may require additional information for diagnosis. Performed By: #### D AU #### [facility] [address] [place] [address] [employer] Officer: Luis M Coker MD URINE DRUG SCREENon 07-01-19 24 Amphetamines Ql (U) Negative NEGATIVE [facility] Comment on above: Cutoff: 1000 ng/mL Barbiturates Screen Ql (U) Positive Abnormal NEGATIVE [facility] Comment on above: Cutoff: 200 ng/ml Benzodiazepines Ql (U) Positive Abnormal NEGATIVE [facility] Comment on above: Cutoff: 200 ng/ml Buprenorphine Ql (U) Negative NEGATIVE [facility] Comment on above: Cutoff: 5 ng/ml Cannabinoids Screen Ql (U) Negative NEGATIVE [facility] Comment on above: Cutoff: 50 ng/ml Cocaine Ql (U) Negative NEGATIVE [facility] Comment on above: Cutoff: 300 ng/ml fentaNYL Ql (U) Negative NEGATIVE [facility] Comment on above: Cutoff: 1.0 ng/ml Interpretation and review of laboratory results Abnormal [facility] Methadone Ql (U) Negative NEGATIVE [facility] Comment on above: Cutoff: 300 ng/ml Opiates Screen Ql (U) Negative NEGATIVE [facility] Comment on above: Cutoff: 300 ng/ml Note: The Opiate screen is not intended to detect Oxycodone. oxyCODONE Ql (U) Negative NEGATIVE [facility] Comment on above: Cutoff: 100 ng/ml Phencyclidine Ql (U) Negative NEGATIVE [facility] Comment on above: Cutoff: 25 ng/ml Test Information These drug screen results are for medical purposes only and should not be considered definitive or confirmed. [facility] Comment on above: The drug methodology concentration value must be greater than or equal to the cutoff to be reported as positive. Confirmtory testing orders and/or interpretive sceening questions can be directed to toxicology at [phone]. The absence of expected drug(s) and/or metabolite(s) may be due to inappropriate timing of specimen collection relative to drug administration, poor drug absorption, diluted/adulterated urine, or limitations of screening methodology. [facility] Basic Metabolic Profon 06-29 Anion gap [Moles/Vol] 16 mmol/L Normal 7-16 [facility] Comment on above: Performed By: #### T ROPI, CMPX, TATO, LIP, LACTIC, PT #### [place] [address] [place] [address] [employer] Officer: Luis M Coker MD Calcium [Mass/Vol] 8.9 mg/dL Normal 8.6-10.2 [facility] Comment on above: Performed By: #### T ROPI, CMPX, TATO, LIP, LACTIC, PT #### [address] [place] [address] [employer] Officer: Luis M Coker MD Chloride [Moles/Vol] 102 mmol/L Normal 98-107 [facility] Comment on above: Performed By: #### T ROPI, CMPX, TATO, LIP, LACTIC, PT #### [place] [address] [facility] [place] [address] [employer] Officer: Luis M Coker MD CO2 [Moles/Vol] 21 mmol/L Low 22-29 [facility] Comment on above: Performed By: #### T ROPI, CMPX, TATO, LIP, LACTIC, PT #### [place] [address] [facility] [place] [address] [employer] Officer: Luis M Coker MD Creatinine [Mass/Vol] 1.2 mg/dL Normal 0.70-1.20 [facility] Comment on above: Performed By: #### T ROPI, CMPX, TATO, LIP, LACTIC, PT #### [address] [place] [address] [employer] Officer: Luis M Coker MD GFR/1.73 sq M.predicted among non-blacks MDRD (S/P/Bld) [Vol rate/Area] 82 mL/min/{1.73_m2} Normal >60 [facility] Comment on above: Result Comment: These results are not intended for use in patients <18 years of age. eGFR results are calculated without a race factor using the 2020 CKD-EPI equation. Careful clinical correlation is recommended, particularly when comparing to results calculated using previous equations. The CKD-EPI equation is less accurate in patients with extremes of muscle mass, extra-renal metabolism of creatine, excessive creatine ingestion, or following therapy that affects renal tubular secretion. Performed By: #### T ROPI, CMPX, TATO, LIP, LACTIC, PT #### [address] [place] [address] [employer] Officer: Luis M Coker MD Glucose [Mass/Vol] 98 mg/dL Normal 74-99 [facility] Comment on above: Performed By: #### T ROPI, CMPX, TATO, LIP, LACTIC, PT #### [address] [place] [address] [employer] Officer: Luis M Coker MD Potassium [Moles/Vol] 3.9 mmol/L Normal 3.5-5.0 [facility] Comment on above: Performed By: #### T ROPI, CMPX, TATO, LIP, LACTIC, PT #### [address] [place] [address] [employer] Officer: Luis M Coker MD Sodium [Moles/Vol] 139 mmol/L Normal 132-146 [facility] Comment on above: Performed By: #### T ROPI, CMPX, TATO, LIP, LACTIC, PT #### [address] [place] [address] [employer] Officer: Luis M Coker MD Urea nitrogen [Mass/Vol] 14 mg/dL Normal 6-20 [facility] Comment on above: Performed By: #### T ROPI, CMPX, TATO, LIP, LACTIC, PT #### [place] [address] [employer] Officer: Luis M Coker MD CBC with Diffon 06-30-2023 Abs. Basophil 0.03 k/uL Normal 0.00-0.20 [facility] Comment on above: Performed By: #### T ROPI, CMPX, TATO, LIP, LACTIC, PT #### [place] [address] [employer] Officer: Luis M Coker MD Abs.Imm.Granulocyte <0.03 Normal 0.00-0.58 [facility] Comment on above: Performed By: #### T ROPI, CMPX, TATO, LIP, LACTIC, PT #### [place] [address] [employer] Officer: Luis M Coker MD Abs.Neutrophil (Seg) 3.88 k/uL Normal 1.80-7.30 [facility] Comment on above: Performed By: #### T ROPI, CMPX, TATO, LIP, LACTIC, PT #### [place] [address] [employer] Officer: Luis M Coker MD Basophils/100 WBC (Bld) 0 % Normal 0.0-2.0 [facility] Comment on above: Performed By: #### T ROPI, CMPX, TATO, LIP, LACTIC, PT #### [place] [address] [employer] Officer: Luis M Coker MD Eosinophils (Bld) [#/Vol] 0.16 10*3/uL Normal 0.05-0.50 [facility] Comment on above: Performed By: #### T ROPI, CMPX, TATO, LIP, LACTIC, PT #### [address] [place] [address] [employer] Officer: Luis M Coker MD Eosinophils/100 WBC (Bld) 2 % Normal 0-6 [facility] Comment on above: Performed By: #### T ROPI, CMPX, TATO, LIP, LACTIC, PT #### [address] [address] [employer] Officer: Luis M Coker MD Erythrocyte distribution width (RBC) [Ratio] 13.4 % Normal 11.5-15.0 [facility] Comment on above: Performed By: #### T ROPI, CMPX, TATO, LIP, LACTIC, PT #### [place] [address] [employer] Officer: Luis M Coker MD Hematocrit (Bld) [Volume fraction] 43.2 % Normal 37.0-54.0 [facility] Comment on above: Performed By: #### T ROPI, CMPX, TATO, LIP, LACTIC, PT #### [place] [address] [employer] Officer: Luis M Coker MD Hemoglobin (Bld) [Mass/Vol] 15.3 g/dL Normal 12.5-16.5 [facility] Comment on above: Performed By: #### T ROPI, CMPX, TATO, LIP, LACTIC, PT #### [place] [address] [employer] Officer: Luis M Coker MD Immature granulocytes/100 WBC (Bld) 0 % Normal 0.0-5.0 [facility] Comment on above: Performed By: #### T ROPI, CMPX, TATO, LIP, LACTIC, PT #### [address] [place] [address] [employer] Officer: Luis M Coker MD Lymphocytes (Bld) [#/Vol] 2.63 10*3/uL Normal 1.50-4.00 [facility] Comment on above: Performed By: #### T ROPI, CMPX, TATO, LIP, LACTIC, PT #### [address] [place] [address] [employer] Officer: Luis M Coker MD Lymphocytes/100 WBC (Bld) 35 % Normal 20.0-42.0 [facility] Comment on above: Performed By: #### T ROPI, CMPX, TATO, LIP, LACTIC, PT #### [address] [place] [address] [employer] Officer: Luis M Coker MD MCH (RBC) [Entitic mass] 29.7 pg Normal 26.0-35.0 [facility] Comment on above: Performed By: #### T ROPI, CMPX, TATO, LIP, LACTIC, PT #### [address] [place] [address] [employer] Officer: Luis M Coker MD MCHC (RBC) [Mass/Vol] 35.4 g/dL High 32.0-34.5 [facility] Comment on above: Performed By: #### T ROPI, CMPX, TAOT, LIP, LACTIC, PT #### [address] [place] [address] [employer] Officer: Luis M Ckoer MD MCV (RBC) [Entitic vol] 83.9 fL Normal 80.0-99.9 [facility] Comment on above: Performed By: #### T ROPI, CMPX, TATO, LIP, LACTIC, PT #### [address] [place] [address] [employer] Officer: Luis M Coker MD Monocytes (Bld) [#/Vol] 0.80 10*3/uL Normal 0.10-0.95 [facility] Comment on above: Performed By: #### T ROPI, CMPX, TATO, LIP, LACTIC, PT #### [place] [address] [place] [address] [employer] Officer: Luis M Coker MD Monocytes/100 WBC (Bld) 11 % Normal 2.0-12.0 [facility] Comment on above: Performed By: #### T ROPI, CMPX, TATO, LIP, LACTIC, PT #### [place] [address] [place] [address] [employer] Officer: Luis M Coker MD Neutrophil (Seg) 52 % Normal 43.0-80.0 [facility] Comment on above: Performed By: #### T ROPI, CMPX, TATO, LIP, LACTIC, PT #### [address] [place] [address] [employer] Officer: Luis M Coker MD Platelet mean volume (Bld) [Entitic vol] 8.5 fL Normal 7.0-12.0 [facility] Comment on above: Performed By: #### T ROPI, CMPX, TATO, LIP, LACTIC, PT #### [address] [place] [address] [employer] Officer: Luis M Coker MD Platelets (Bld) [#/Vol] 318 10*3/uL Normal 130-450 [facility] Comment on above: Performed By: #### T ROPI, CMPX, TATO, LIP, LACTIC, PT #### [address] [place] [address] [employer] Officer: Luis M Coker MD RBC (Bld) [#/Vol] 5.15 10*6/uL Normal 3.80-5.80 [facility] Comment on above: Performed By: #### T ROPI, CMPX, TATO, LIP, LACTIC, PT #### [facility] [address] [place] [address] [employer] Officer: Luis M Coker MD WBC (Bld) [#/Vol] 7.5 10*3/uL Normal 4.5-11.5 [facility] Comment on above: Performed By: #### T ROPI, CMPX, TATO, LIP, LACTIC, PT #### [facility] [address] [facility] [place] [address] [employer] Officer: Luis M Coker MD CT ABDOMEN PELVIS WO CONTRAS Ton 06-30-2023 CT ABDOMEN PELVIS WO CONTRAST EXAMINATION: CT OF THE ABDOMEN AND PELVIS WITHOUT CONTRAST 06/30/2023 10:27 pm TECHNIQUE: CT of the abdomen and pelvis was performed without the administration of intravenous contrast. Multiplanar reformatted images are provided for review. Automated exposure control, iterative reconstruction, and/or weight based adjustment of the mA/kV was utilized to reduce the radiation dose to as low as reasonably achievable. COMPARISON: None. HISTORY: ORDERING SYSTEM PROVIDED HISTORY: Upper abdominal pain TECHNOLOGIST PROVIDED HISTORY: Reason for exam:->Upper abdominal Additional Contrast?->None Decision Support Exception - unselect if not a suspected or confirmed emergency medical condition->Emergency Medical Condition ([place]) What reading provider will be dictating this exam?->CRC FINDINGS: LOWER CHEST: Visualized lung bases are clear. LIVER: Suspect steatosis. BILIARY: Gallbladder is without calcified stone. No significant biliary dilatation. SPLEEN: Unremarkable. PANCREAS: Grossly unremarkable. ADRENALS: Unremarkable. KIDNEYS: No hydronephrosis or nephrolithiasis. Small exophytic density left kidney upper pole likely a cyst. GI: No bowel obstruction. Unremarkable appendix. No pneumoperitoneum. LYMPH NODES: No significant lymphadenopathy. VESSELS: Abdominal aorta is normal in caliber. PELVIS: Small fatty left inguinal hernia. Otherwise grossly unremarkable. BONES: No acute fracture. Mild retrolisthesis L2 on L3. ADDITIONAL FINDINGS: None. IMPRESSION: No acute intra-abdominal pelvic process appreciated. Additional observations as above. Interpreted by: Elfego Holland MD Signed by: Elfego Holland MD 06/30/23 Final result Normal [facility] Comment on above: Order Comment: Reaso n for exam:->Upper abdominalAdditional Contrast?->NoneDecision Support Exception - unselect if not a suspected or confirmed emergency medical condition->Emergency Medical Condition ([place])What reading provider will be dictating this exam?->CRC CT Abdomen and Pelvis WO con traston 06-30-2023 No acute intra-abdom inal pelvic process appreciated. Additional observations as above. [facility] EXAMINATION: CT OF THE ABDOMEN AND PELVIS WITHOUT CONTRAST 06/30/2023 10:27 pm TECHNIQUE: CT of the abdomen and pelvis was performed without the administration of intravenous contrast. Multiplanar reformatted images are provided for review. Automated exposure control, iterative reconstruction, and/or weight based adjustment of the mA/kV was utilized to reduce the radiation dose to as low as reasonably achievable. COMPARISON: None. HISTORY: ORDERING SYSTEM PROVIDED HISTORY: Upper abdominal pain TECHNOLOGIST PROVIDED HISTORY: Reason for exam:->Upper abdominal Additional Contrast?->None Decision Support Exception - unselect if not a suspected or confirmed emergency medical condition->Emergency Medical Condition ([place]) What reading provider will be dictating this exam?->CRC FINDINGS: LOWER CHEST: Visualized lung bases are clear. LIVER: Suspect steatosis. BILIARY: Gallbladder is without calcified stone. No significant biliary dilatation. SPLEEN: Unremarkable. PANCREAS: Grossly unremarkable. ADRENALS: Unremarkable. KIDNEYS: No hydronephrosis or nephrolithiasis. Small exophytic density left kidney upper pole likely a cyst. GI: No bowel obstruction. Unremarkable appendix. No pneumoperitoneum. LYMPH NODES: No significant lymphadenopathy. VESSELS: Abdominal aorta is normal in caliber. PELVIS: Small fatty left inguinal hernia. Otherwise grossly unremarkable. BONES: No acute fracture. Mild retrolisthesis L2 on L3. ADDITIONAL FINDINGS: None. [facility] Elfego Holland MD - 06/30/2023 EXAMINATION: CT OF THE ABDOMEN AND PELVIS WITHOUT CONTRAST 06/30/2023 10:27 pm TECHNIQUE: CT of the abdomen and pelvis was performed without the administration of intravenous contrast. Multiplanar reformatted images are provided for review. Automated exposure control, iterative reconstruction, and/or weight based adjustment of the mA/kV was utilized to reduce the radiation dose to as low as reasonably achievable. COMPARISON: None. HISTORY: ORDERING SYSTEM PROVIDED HISTORY: Upper abdominal pain TECHNOLOGIST PROVIDED HISTORY: Reason for exam:->Upper abdominal Additional Contrast?->None Decision Support Exception - unselect if not a suspected or confirmed emergency medical condition->Emergency Medical Condition ([place]) What reading provider will be dictating this exam?->CRC FINDINGS: LOWER CHEST: Visualized lung bases are clear. LIVER: Suspect steatosis. BILIARY: Gallbladder is without calcified stone. No significant biliary dilatation. SPLEEN: Unremarkable. PANCREAS: Grossly unremarkable. ADRENALS: Unremarkable. KIDNEYS: No hydronephrosis or nephrolithiasis. Small exophytic density left kidney upper pole likely a cyst. GI: No bowel obstruction. Unremarkable appendix. No pneumoperitoneum. LYMPH NODES: No significant lymphadenopathy. VESSELS: Abdominal aorta is normal in caliber. PELVIS: Small fatty left inguinal hernia. Otherwise grossly unremarkable. BONES: No acute fracture. Mild retrolisthesis L2 on L3. ADDITIONAL FINDINGS: None. IMPRESSION: No acute intra-abdominal pelvic process appreciated. Additional observations as above. [facility] CT CERVICAL SPINE WO CONTRAS Ton 06-30-2023 CT CERVICAL SPINE WO CONTRAST EXAMINATION: CT OF THE CERVICAL SPINE WITHOUT CONTRAST 06/30/2023 10:27 pm TECHNIQUE: CT of the cervical spine was performed without the administration of intravenous contrast. Multiplanar reformatted images are provided for review. Automated exposure control, iterative reconstruction, and/or weight based adjustment of the mA/kV was utilized to reduce the radiation dose to as low as reasonably achievable. COMPARISON: None. HISTORY: ORDERING SYSTEM PROVIDED HISTORY: fall TECHNOLOGIST PROVIDED HISTORY: Reason for exam:->fall Decision Support Exception - unselect if not a suspected or confirmed emergency medical condition->Emergency Medical Condition ([place]) What reading provider will be dictating this exam?->CRC FINDINGS: BONES/ALIGNMENT: Straightening which may relate to positioning or muscle spasm. No acute fracture. Degenerative changes greatest at C5-C6. There may be [place] sec narrowing at this level. SOFT TISSUES: There is no prevertebral soft tissue swelling. IMPRESSION: No acute fracture Interpreted by: Elfego Holland MD Signed by: Elfego Holland MD 06/30/23 Final result Normal [facility] Comment on above: Order Comment: Reaso n for exam:->fallDecision Support Exception - unselect if not a suspected or confirmed emergency medical condition->Emergency Medical Condition ([place])What reading provider will be dictating this exam?->CRC CT Cervical spine WO contras ton 06-30-2023 No acute fracture [facility] EXAMINATION: CT OF THE CERVICAL SPINE WITHOUT CONTRAST 06/30/2023 10:27 pm TECHNIQUE: CT of the cervical spine was performed without the administration of intravenous contrast. Multiplanar reformatted images are provided for review. Automated exposure control, iterative reconstruction, and/or weight based adjustment of the mA/kV was utilized to reduce the radiation dose to as low as reasonably achievable. COMPARISON: None. HISTORY: ORDERING SYSTEM PROVIDED HISTORY: fall TECHNOLOGIST PROVIDED HISTORY: Reason for exam:->fall Decision Support Exception - unselect if not a suspected or confirmed emergency medical condition->Emergency Medical Condition ([place]) What reading provider will be dictating this exam?->CRC FINDINGS: BONES/ALIGNMENT: Straightening which may relate to positioning or muscle spasm. No acute fracture. Degenerative changes greatest at C5-C6. There may be [place] sec narrowing at this level. SOFT TISSUES: There is no prevertebral soft tissue swelling. [facility] Elfego Holland MD - 06/30/2023 EXAMINATION: CT OF THE CERVICAL SPINE WITHOUT CONTRAST 06/30/2023 10:27 pm TECHNIQUE: CT of the cervical spine was performed without the administration of intravenous contrast. Multiplanar reformatted images are provided for review. Automated exposure control, iterative reconstruction, and/or weight based adjustment of the mA/kV was utilized to reduce the radiation dose to as low as reasonably achievable. COMPARISON: None. HISTORY: ORDERING SYSTEM PROVIDED HISTORY: fall TECHNOLOGIST PROVIDED HISTORY: Reason for exam:->fall Decision Support Exception - unselect if not a suspected or confirmed emergency medical condition->Emergency Medical Condition ([place]) What reading provider will be dictating this exam?->CRC FINDINGS: BONES/ALIGNMENT: Straightening which may relate to positioning or muscle spasm. No acute fracture. Degenerative changes greatest at C5-C6. There may be [place] sec narrowing at this level. SOFT TISSUES: There is no prevertebral soft tissue swelling. IMPRESSION: No acute fracture [facility] CT HEAD WO CONTRASTon 2023 CT HEAD WO CONTRAST EXAMINATION: CT OF THE HEAD WITHOUT CONTRAST 06/30/2023 10:27 pm TECHNIQUE: CT of the head was performed without the administration of intravenous contrast. Automated exposure control, iterative reconstruction, and/or weight based adjustment of the mA/kV was utilized to reduce the radiation dose to as low as reasonably achievable. COMPARISON: None. HISTORY: ORDERING SYSTEM PROVIDED HISTORY: Evaluate intracranial abnormality TECHNOLOGIST PROVIDED HISTORY: Has a code stroke or stroke alert been called?->No Reason for exam:->Evaluate intracranial abnormality Decision Support Exception - unselect if not a suspected or confirmed emergency medical condition->Emergency Medical Condition ([place]) What reading provider will be dictating this exam?->CRC FINDINGS: BRAIN: Ma-white differentiation is intact. CSF SPACES: No hydrocephalus. HEMORRHAGE: No acute intracranial hemorrhage is identified. MASS EFFECT: No midline shift. SINUS/MASTOIDS: Polyp versus retention cyst left maxillary sinus. SCALP: Grossly unremarkable. CALVARIUM: Intact. IMPRESSION: No acute intracranial abnormality. Interpreted by: Elfego Holland MD Signed by: Elfego Holland MD 06/30/23 Final result Normal [facility] Comment on above: Order Comment: Has a code stroke or stroke alert been called?->NoReason for exam:->Evaluate intracranial abnormalityDecision Support Exception - unselect if not a suspected or confirmed emergency medical condition->Emergency Medical Condition ([place])What reading provider will be dictating this exam?->CRC CT Head WO contraston 2023 No acute intracrania l abnormality. [facility] CONSOL[facility] EXAMINATION: CT OF THE HEAD WITHOUT CONTRAST 06/30/2023 10:27 pm TECHNIQUE: CT of the head was performed without the administration of intravenous contrast. Automated exposure control, iterative reconstruction, and/or weight based adjustment of the mA/kV was utilized to reduce the radiation dose to as low as reasonably achievable. COMPARISON: None. HISTORY: ORDERING SYSTEM PROVIDED HISTORY: Evaluate intracranial abnormality TECHNOLOGIST PROVIDED HISTORY: Has a code stroke or stroke alert been called?->No Reason for exam:->Evaluate intracranial abnormality Decision Support Exception - unselect if not a suspected or confirmed emergency medical condition->Emergency Medical Condition ([place]) What reading provider will be dictating this exam?->CRC FINDINGS: BRAIN: Ma-white differentiation is intact. CSF SPACES: No hydrocephalus. HEMORRHAGE: No acute intracranial hemorrhage is identified. MASS EFFECT: No midline shift. SINUS/MASTOIDS: Polyp versus retention cyst left maxillary sinus. SCALP: Grossly unremarkable. CALVARIUM: Intact. [facility] Elfego Holland MD - 06/30/2023 EXAMINATION: CT OF THE HEAD WITHOUT CONTRAST 06/30/2023 10:27 pm TECHNIQUE: CT of the head was performed without the administration of intravenous contrast. Automated exposure control, iterative reconstruction, and/or weight based adjustment of the mA/kV was utilized to reduce the radiation dose to as low as reasonably achievable. COMPARISON: None. HISTORY: ORDERING SYSTEM PROVIDED HISTORY: Evaluate intracranial abnormality TECHNOLOGIST PROVIDED HISTORY: Has a code stroke or stroke alert been called?->No Reason for exam:->Evaluate intracranial abnormality Decision Support Exception - unselect if not a suspected or confirmed emergency medical condition->Emergency Medical Condition (MA) What reading provider will be dictating this exam?->CRC FINDINGS: BRAIN: Ma-white differentiation is intact. CSF SPACES: No hydrocephalus. HEMORRHAGE: No acute intracranial hemorrhage is identified. MASS EFFECT: No midline shift. SINUS/MASTOIDS: Polyp versus retention cyst left maxillary sinus. SCALP: Grossly unremarkable. CALVARIUM: Intact. IMPRESSION: No acute intracranial abnormality. [facility] CT Head WO contrastOrdered B y: Elfego Holland on 06-30-2023 [facility] Work Phone: Creatine Kinaseon 06-30-2023 CK [Catalytic activity/Vol] 710 U/L High 20-200 [facility] Comment on above: Performed By: #### T ROPI, CMPX, TATO, LIP, LACTIC, PT #### [facility] [address] [place] [id number] [employer] Officer: Luis M Coker MD Lactic Acidon 06-30-2023 Lactate [Moles/Vol] 1.9 mmol/L Normal 0.5-2.2 [facility] Comment on above: Performed By: #### C BCWD #### [address] [place] [address] [employer] Officer: Luis M Coker MD Liver Profileon 06-30-2023 Albumin [Mass/Vol] 4.4 g/dL Normal 3.5-5.2 [facility] Comment on above: Performed By: #### T ROPI, CMPX, TATO, LIP, LACTIC, PT #### [address] [place] [address] [employer] Officer: Luis M Coker MD Alkaline Phos 92 U/L Normal 40-129 [facility] Comment on above: Performed By: #### T ROPI, CMPX, TATO, LIP, LACTIC, PT #### [address] [place] [address] [employer] Officer: Luis M Coker MD ALT [Catalytic activity/Vol] 51 U/L High 0-40 [facility] Comment on above: Performed By: #### T ROPI, CMPX, TATO, LIP, LACTIC, PT #### [address] [place] [address] [employer] Officer: Luis M Coker MD AST [Catalytic activity/Vol] 32 U/L Normal 0-39 [facility] Comment on above: Performed By: #### T ROPI, CMPX, TATO, LIP, LACTIC, PT #### [address] [place] [address] [employer] Officer: Luis M Coker MD Bilirubin [Mass/Vol] 0.2 mg/dL Normal 0.0-1.2 [facility] Comment on above: Performed By: #### T ROPI, CMPX, TATO, LIP, LACTIC, PT #### [address] [place] [address] [employer] Officer: Luis M Coker MD Bilirubin, Indirect Can not be calculated Normal 0.0-1 .0 [facility] Comment on above: Performed By: #### T ROPI, CMPX, TATO, LIP, LACTIC, PT #### [facility] [address] [place] [address] [employer] Officer: Luis M Coker MD Bilirubin.indirect [Mass/Vol] mg/dL Normal 0.0-0.3 [facility] Comment on above: Performed By: #### T ROPI, CMPX, TATO, LIP, LACTIC, PT #### [facility] [address] [place] [address] [employer] Officer: Luis M Coker MD Protein [Mass/Vol] 7.2 g/dL Normal 6.4-8.3 [facility] Comment on above: Performed By: #### T ROPI, CMPX, TATO, LIP, LACTIC, PT #### [place] [address] [place] [address] [employer] Officer: Luis M Coker MD No Panel Informationon 06-29 Radiology Study observation (narrative) [facility] Portable XR Chest AP single viewon 06-30-2023 No acute process. [facility] EXAMINATION: ONE XRAY VIEW OF THE CHEST 06/30/2023 10:26 pm COMPARISON: 06/28/2023 HISTORY: ORDERING SYSTEM PROVIDED HISTORY: fall TECHNOLOGIST PROVIDED HISTORY: Reason for exam:->fall FINDINGS: The lungs are without acute focal process. There is no effusion or pneumothorax. The cardiomediastinal silhouette is without acute process. The osseous structures are without acute process. [facility] Gary Greco MD - 06/30/2023 EXAMINATION: ONE XRAY VIEW OF THE CHEST 06/30/2023 10:26 pm COMPARISON: 06/28/2023 HISTORY: ORDERING SYSTEM PROVIDED HISTORY: fall TECHNOLOGIST PROVIDED HISTORY: Reason for exam:->fall FINDINGS: The lungs are without acute focal process. There is no effusion or pneumothorax. The cardiomediastinal silhouette is without acute process. The osseous structures are without acute process. IMPRESSION: No acute process. [facility] Radiology Study observation (narrative) [facility] Portable XR Chest AP single viewOrdered By: Gary Angus on 06-30-2023 [facility] Work Phone: Tox Scr, Bld, EDon 4 Acetaminophen [Mass/Vol] ug/mL Low 10.0-30.0 [facility] Comment on above: Performed By: #### T ROPI, CMPX, TATO, LIP, LACTIC, PT #### [address] [address] [employer] Officer: Luis M Coker MD Ethanol [Mass/Vol] 64 mg/dL High <10 [facility] Comment on above: Performed By: #### T ROPI, CMPX, TATO, LIP, LACTIC, PT #### [place] [address] [employer] Officer: Luis M Coker MD Salicylate <0.3 Normal 0.0-30.0 [facility] Comment on above: Performed By: #### T ROPI, CMPX, TATO, LIP, LACTIC, PT #### [address] [place] [address] [employer] Officer: Luis M Coker MD Toxic Tricyclic Sc,Bl Negative Normal NEG [facility] Comment on above: Result Comment: Cuto ff: 300 ng/ml Performed By: #### T ROPI, CMPX, TATO, LIP, LACTIC, PT #### [place] [address] [employer] Officer: Luis M Coker MD XR CHEST PORTABLEon 06-30-19 24 XR CHEST PORTABLE EXAMINATION: ONE XRAY VIEW OF THE CHEST 06/30/2023 10:26 pm COMPARISON: 06/28/2023 HISTORY: ORDERING SYSTEM PROVIDED HISTORY: fall TECHNOLOGIST PROVIDED HISTORY: Reason for exam:->fall FINDINGS: The lungs are without acute focal process. There is no effusion or pneumothorax. The cardiomediastinal silhouette is without acute process. The osseous structures are without acute process. IMPRESSION: No acute process. Interpreted by: Gary Greco MD Signed by: Gary Greco MD 06/30/23 Final result Normal [facility] Comment on above: Order Comment: Reaso n for exam:->fall CBC with Diffon 06-29-2023 Abs. Basophil 0.03 k/uL Normal 0.00-0.20 [facility] Comment on above: Performed By: #### U AMIC #### [address] [address] [employer] Officer: Luis M Coker MD Abs.Imm.Granulocyte <0.03 Normal 0.00-0.58 [facility] Comment on above: Performed By: #### U AMIC #### [address] [address] [employer] Officer: Luis M Coker MD Abs.Neutrophil (Seg) 5.48 k/uL Normal 1.80-7.30 [facility] Comment on above: Performed By: #### U AMIC #### [address] [address] [employer] Officer: Luis M Coker MD Basophils/100 WBC (Bld) 0 % Normal 0.0-2.0 [facility] Comment on above: Performed By: #### U AMIC #### [address] [address] [employer] Officer: Luis M Coker MD Eosinophils (Bld) [#/Vol] 0.06 10*3/uL Normal 0.05-0.50 [facility] Comment on above: Performed By: #### U AMIC #### [place] [address] [employer] Officer: Luis M Coker MD Eosinophils/100 WBC (Bld) 1 % Normal 0-6 [facility] Comment on above: Performed By: #### U AMIC #### [place] [address] [employer] Officer: Luis M Coker MD Erythrocyte distribution width (RBC) [Ratio] 13.5 % Normal 11.5-15.0 [facility] Comment on above: Performed By: #### U AMIC #### [place] [address] [employer] Officer: Luis M Coker MD Hematocrit (Bld) [Volume fraction] 43.8 % Normal 37.0-54.0 [facility] Comment on above: Performed By: #### U AMIC #### [place] [address] [employer] Officer: Luis M Coker MD Hemoglobin (Bld) [Mass/Vol] 15.4 g/dL Normal 12.5-16.5 [facility] Comment on above: Performed By: #### U AMIC #### [place] [address] [employer] Officer: Luis M Coker MD Immature granulocytes/100 WBC (Bld) 0 % Normal 0.0-5.0 [facility] Comment on above: Performed By: #### U AMIC #### [place] [address] [employer] Officer: Luis M Coker MD Lymphocytes (Bld) [#/Vol] 1.72 10*3/uL Normal 1.50-4.00 [facility] Comment on above: Performed By: #### U AMIC #### [place] [address] [employer] Officer: Luis M Coker MD Lymphocytes/100 WBC (Bld) 22 % Normal 20.0-42.0 [facility] Comment on above: Performed By: #### U AMIC #### [place] [address] [employer] Officer: Luis M Coker MD MCH (RBC) [Entitic mass] 29.3 pg Normal 26.0-35.0 [facility] Comment on above: Performed By: #### U AMIC #### [place] [address] [employer] Officer: Luis M Coker MD MCHC (RBC) [Mass/Vol] 35.2 g/dL High 32.0-34.5 [facility] Comment on above: Performed By: #### U AMIC #### [place] [address] [employer] Officer: Luis M Coker MD MCV (RBC) [Entitic vol] 83.4 fL Normal 80.0-99.9 [facility] Comment on above: Performed By: #### U AMIC #### [place] [address] [employer] Officer: Luis M Coker MD Monocytes (Bld) [#/Vol] 0.69 10*3/uL Normal 0.10-0.95 [facility] Comment on above: Performed By: #### U AMIC #### [place] [address] [employer] Officer: Luis M Coker MD Monocytes/100 WBC (Bld) 9 % Normal 2.0-12.0 [facility] Comment on above: Performed By: #### U AMIC #### [address] [address] [employer] Officer: Luis M Coker MD Neutrophil (Seg) 68 % Normal 43.0-80.0 [facility] Comment on above: Performed By: #### U AMIC #### [address] [place] [address] [employer] Officer: Luis M Coker MD Platelet mean volume (Bld) [Entitic vol] 8.7 fL Normal 7.0-12.0 [facility] Comment on above: Performed By: #### U AMIC #### [place] [address] [employer] Officer: Luis M Coker MD Platelets (Bld) [#/Vol] 314 10*3/uL Normal 130-450 [facility] Comment on above: Performed By: #### U AMIC #### [address] [address] [employer] Officer: Luis M Coker MD RBC (Bld) [#/Vol] 5.25 10*6/uL Normal 3.80-5.80 [facility] Comment on above: Performed By: #### U AMIC #### [place] [address] [employer] Officer: Luis M Coker MD WBC (Bld) [#/Vol] 8.0 10*3/uL Normal 4.5-11.5 [facility] Comment on above: Performed By: #### U AMIC #### [address] [address] [employer] Officer: Luis M Coker MD Comp Metabolic Profon 05-21- 2024 Albumin [Mass/Vol] 4.5 g/dL Normal 3.5-5.2 [facility] Comment on above: Performed By: #### U AMIC #### [address] [place] [address] [employer] Officer: Luis M Coker MD Alkaline Phos 89 U/L Normal 40-129 [facility] Comment on above: Result Comment: SPEC IMEN MODERATELY HEMOLYZED, RESULTS MAY BE ADVERSELY AFFECTED Performed By: #### U AMIC #### [address] [place] [address] [employer] Officer: Luis M Coker MD ALT [Catalytic activity/Vol] 63 U/L High 0-40 [facility] Comment on above: Result Comment: SPEC IMEN MODERATELY HEMOLYZED, RESULTS MAY BE ADVERSELY AFFECTED Performed By: #### U AMIC #### [address] [place] [address] [employer] Officer: Luis M Coker MD Anion gap [Moles/Vol] 18 mmol/L High 7-16 [facility] Comment on above: Performed By: #### U AMIC #### [address] [place] [address] [employer] Officer: Luis M Coker MD AST [Catalytic activity/Vol] 44 U/L High 0-39 [facility] Comment on above: Result Comment: SPEC IMEN MODERATELY HEMOLYZED, RESULTS MAY BE ADVERSELY AFFECTED Performed By: #### U AMIC #### [address] [place] [address] [employer] Officer: Luis M Coker MD Bilirubin [Mass/Vol] 0.3 mg/dL Normal 0.0-1.2 [facility] Comment on above: Performed By: #### U AMIC #### [address] [address] [employer] Officer: Luis M Coker MD Calcium [Mass/Vol] 8.9 mg/dL Normal 8.6-10.2 [facility] Comment on above: Performed By: #### U AMIC #### [address] [address] [employer] Officer: Luis M Coker MD Chloride [Moles/Vol] 100 mmol/L Normal 98-107 [facility] Comment on above: Performed By: #### U AMIC #### [address] [address] [employer] Officer: Luis M Coker MD CO2 [Moles/Vol] 18 mmol/L Low 22-29 [facility] Comment on above: Performed By: #### U AMIC #### [address] [address] [employer] Officer: Luis M Coker MD Creatinine [Mass/Vol] 1.1 mg/dL Normal 0.70-1.20 [facility] Comment on above: Performed By: #### U AMIC #### [address] [address] [employer] Officer: Luis M Coker MD GFR/1.73 sq M.predicted among non-blacks MDRD (S/P/Bld) [Vol rate/Area] 90 mL/min/{1.73_m2} Normal >60 [facility] Comment on above: Result Comment: These results are not intended for use in patients <18 years of age. eGFR results are calculated without a race factor using the 2020 CKD-EPI equation. Careful clinical correlation is recommended, particularly when comparing to results calculated using previous equations. The CKD-EPI equation is less accurate in patients with extremes of muscle mass, extra-renal metabolism of creatine, excessive creatine ingestion, or following therapy that affects renal tubular secretion. Performed By: #### U AMIC #### [address] [place] [address] [employer] Officer: Luis M Coker MD Glucose [Mass/Vol] 93 mg/dL Normal 74-99 [facility] Comment on above: Performed By: #### U AMIC #### [address] [place] [address] [employer] Officer: Luis M Coker MD Potassium [Moles/Vol] 4.5 mmol/L Normal 3.5-5.0 [facility] Comment on above: Result Comment: SPEC IMEN MODERATELY HEMOLYZED, RESULTS MAY BE ADVERSELY AFFECTED Performed By: #### U AMIC #### [address] [address] [employer] Officer: Luis M Coker MD Protein [Mass/Vol] 7.5 g/dL Normal 6.4-8.3 [facility] Comment on above: Performed By: #### U AMIC #### [address] [address] [employer] Officer: Luis M Coker MD Sodium [Moles/Vol] 136 mmol/L Normal 132-146 [facility] Comment on above: Performed By: #### U AMIC #### [address] [place] [address] [employer] Officer: Luis M Coker MD Urea nitrogen [Mass/Vol] 8 mg/dL Normal 6-20 [facility] Comment on above: Performed By: #### U AMIC #### [address] [address] [employer] Officer: Luis M Coker MD Drug Scr, Abuse, Uron 2023 Amphetamine(s),Ur Negative Normal NEG [facility] Comment on above: Result Comment: Cuto ff: 1000 ng/mL Performed By: #### D AU #### [address] [place] [address] [employer] Officer: Luis M Coker MD Barbiturate(s),Ur Negative Normal NEG [facility] Comment on above: Result Comment: Cuto ff: 200 ng/ml Performed By: #### D AU #### [address] [place] [address] [employer] Officer: Luis M Coker MD Benzodiazepine(s) Positive Abnormal NEG [facility] Comment on above: Result Comment: Cuto ff: 200 ng/ml Performed By: #### D AU #### [address] [place] [address] [employer] Officer: Luis M Coker MD Buprenorphrine, Ur Negative Normal NEG [facility] Comment on above: Result Comment: Cuto ff: 5 ng/ml Performed By: #### D AU #### [address] [place] [address] [employer] Officer: Luis M Coker MD Cannabinoid(s),Ur Negative Normal NEG [facility] Comment on above: Result Comment: Cuto ff: 50 ng/ml Performed By: #### D AU #### [address] [place] [address] [employer] Officer: Luis M Coker MD Cocaine Metabolite Negative Normal NEG [facility] Comment on above: Result Comment: Cuto ff: 300 ng/ml Performed By: #### D AU #### [address] [place] [address] [employer] Officer: Luis M Coker MD Fentanyl, Urine Negative Normal NEG [facility] Comment on above: Result Comment: Cuto ff: 1.0 ng/ml Performed By: #### D AU #### [address] [place] [address] [employer] Officer: Luis M Coker MD Interpretive Info These drug screen results are for medical purposes only and should not be Normal [facility] Comment on above: Result Comment: cons idered definitive or confirmed. The drug methodology concentration value must be greater than or equal to the cutoff to be reported as positive. Confirmtory testing orders and/or interpretive sceening questions can be directed to toxicology at [phone]. The absence of expected drug(s) and/or metabolite(s) may be due to inappropriate timing of specimen collection relative to drug administration, poor drug absorption, diluted/adulterated urine, or limitations of screening methodology. Performed By: #### D AU #### [address] [place] [address] [employer] Officer: Luis M Coker MD Methadone Ql (U) Negative Normal NEG [facility] Comment on above: Result Comment: Cuto ff: 300 ng/ml Performed By: #### D AU #### [address] [place] [address] [employer] Officer: Luis M Coker MD Opiate(s), Ur Negative Normal NEG [facility] Comment on above: Result Comment: Cuto ff: 300 ng/ml Note: The Opiate screen is not intended to detect Oxycodone. Performed By: #### D AU #### [address] [place] [address] [employer] Officer: Luis M Coker MD Oxycodone, Urine Negative Normal NEG [facility] Comment on above: Result Comment: Cuto ff: 100 ng/ml Performed By: #### D AU #### [address] [place] [address] [employer] Officer: Luis M Coker MD Phencyclidine, Ur Negative Normal NEG [facility] Comment on above: Result Comment: Cuto ff: 25 ng/ml Performed By: #### D AU #### [place] [address] [employer] Officer: Luis M Coker MD Serum Drug Screenon 06-29-19 24 Acetaminophen [Mass/Vol] ug/mL Low 10.0 - 30.0 ug/mL [facility] Ethanolamine [Mass/Vol] 77 mg/dL High NINF - 10 mg/dL [facility] Interpretation and review of laboratory results Abnormal [facility] Salicylates [Mass/Vol] mg/dL 0.0 - 30.0 mg/dL [facility] Toxic Tricyclic Sc,Blood Negative NEGATIVE [facility] Comment on above: Cutoff: 300 ng/ml [facility] Tox Scr, Bld, EDon 4 Acetaminophen [Mass/Vol] ug/mL Low 10.0-30.0 [facility] Comment on above: Performed By: #### U AMIC #### [place] [address] [employer] Officer: Luis M Coker MD Ethanol [Mass/Vol] 119 mg/dL High <10 [facility] Comment on above: Performed By: #### U AMIC #### [place] [address] [employer] Officer: Luis M Coker MD Salicylate <0.3 Normal 0.0-30.0 [facility] Comment on above: Performed By: #### U AMIC #### [place] [address] [employer] Officer: Luis M Coker MD Toxic Tricyclic Sc,Bl Negative Normal NEG [facility] Comment on above: Result Comment: Cuto ff: 300 ng/ml Performed By: #### U AMIC #### [address] [place] [address] [employer] Officer: Luis M Coker MD Acetaminophen [Mass/Vol] ug/mL Low 10.0-30.0 [facility] Comment on above: Performed By: #### C BCWD #### [address] [place] [address] [employer] Officer: Luis M Coker MD Ethanol [Mass/Vol] 77 mg/dL High <10 [facility] Comment on above: Performed By: #### C BCWD #### [address] [address] [employer] Officer: Luis M Coker MD Salicylate <0.3 Normal 0.0-30.0 [facility] Comment on above: Performed By: #### C BCWD #### [address] [address] [employer] Officer: Luis M Coker MD Toxic Tricyclic Sc,Bl Negative Normal NEG [facility] Comment on above: Result Comment: Cuto ff: 300 ng/ml Performed By: #### C BCWD #### [address] [address] [employer] Officer: Luis M Coker MD Troponinon 06-29-2023 Interpretation and review of laboratory results Abnormal [facility] Troponin I.cardiac High sensitivity method [Mass/Vol] 12 ng/L High 0 - 11 ng/L [facility] Comment on above: High Sensitivity Troponin values cannot be compared with other Troponin methodologies. Patients with high levels of Biotin oral intake (i.e >5mg/day) may have falsely decreased Troponin levels. Samples collected within 8 hours of biotin intake may require additional information for diagnosis. [facility] Troponin, High Sens 12 ng/L High 0-11 [facility] Comment on above: Result Comment: High Sensitivity Troponin values cannot be compared with other Troponin methodologies. Patients with high levels of Biotin oral intake (i.e >5mg/day) may have falsely decreased Troponin levels. Samples collected within 8 hours of biotin intake may require additional information for diagnosis. Performed By: #### T ROPI, CMPX, TATO, LIP, LACTIC, PT #### [facility] [address] [place] [address] [employer] Officer: Luis M Coker MD URINE DRUG SCREENon 06-29-19 24 Amphetamines Ql (U) Negative NEGATIVE [facility] Comment on above: Cutoff: 1000 ng/mL Barbiturates Screen Ql (U) Negative NEGATIVE [facility] Comment on above: Cutoff: 200 ng/ml Benzodiazepines Ql (U) Positive Abnormal NEGATIVE [facility] Comment on above: Cutoff: 200 ng/ml Buprenorphine Ql (U) Negative NEGATIVE [facility] Comment on above: Cutoff: 5 ng/ml Cannabinoids Screen Ql (U) Negative NEGATIVE [facility] Comment on above: Cutoff: 50 ng/ml Cocaine Ql (U) Negative NEGATIVE [facility] Comment on above: Cutoff: 300 ng/ml fentaNYL Ql (U) Negative NEGATIVE [facility] Comment on above: Cutoff: 1.0 ng/ml Interpretation and review of laboratory results Abnormal [facility] Methadone Ql (U) Negative NEGATIVE [facility] Comment on above: Cutoff: 300 ng/ml Opiates Screen Ql (U) Negative NEGATIVE [facility] Comment on above: Cutoff: 300 ng/ml Note: The Opiate screen is not intended to detect Oxycodone. oxyCODONE Ql (U) Negative NEGATIVE [facility] Comment on above: Cutoff: 100 ng/ml Phencyclidine Ql (U) Negative NEGATIVE [facility] Comment on above: Cutoff: 25 ng/ml Test Information These drug screen results are for medical purposes only and should not be considered definitive or confirmed. [facility] Comment on above: The drug methodology concentration value must be greater than or equal to the cutoff to be reported as positive. Confirmtory testing orders and/or interpretive sceening questions can be directed to toxicology at [phone]. The absence of expected drug(s) and/or metabolite(s) may be due to inappropriate timing of specimen collection relative to drug administration, poor drug absorption, diluted/adulterated urine, or limitations of screening methodology. [facility] Urinalysis w/ Microon 2023 Urine RBC's 0 TO 2 Normal 2 [facility] Comment on above: Performed By: #### U AMIC #### [address] [place] [address] [employer] Officer: Luis M Coker MD Urine WBC's 0 TO [address] Comment on above: Performed By: #### U AMIC #### [address] [place] [address] [employer] Officer: Luis M Coker MD Bilirubin, SemiQt,Ur Negative Normal NEG [facility] Comment on above: Performed By: #### U AMIC #### [address] [place] [address] [employer] Officer: Luis M Coker MD Blood, Urine Negative Normal NEG [facility] Comment on above: Performed By: #### U AMIC #### [address] [place] [address] [employer] Officer: Luis M Coker MD Clarity (U) Clear Normal CLEAR [facility] Comment on above: Performed By: #### U AMIC #### [address] [place] [address] [employer] Officer: Luis M Coker MD Color (U) Yellow Normal YEL [facility] Comment on above: Performed By: #### U AMIC #### [place] [address] [place] [address] [employer] Officer: Luis M Coker MD Glucose Ql (U) Negative Normal NEG [facility] Comment on above: Performed By: #### U AMIC #### [address] [place] [address] [employer] Officer: Luis M Coker MD Ketones Ql (U) Negative Normal NEG [facility] Comment on above: Performed By: #### U AMIC #### [address] [place] [address] [employer] Officer: Luis M Coker MD Leukocyte esterase Test strip Ql (U) Negative Normal NEG [facility] Comment on above: Performed By: #### U AMIC #### [place] [address] [employer] Officer: Luis M Coker MD Nitrite,Ur Negative Normal NEG [facility] Comment on above: Performed By: #### U AMIC #### [address] [address] Cavalry Officer: Luis M Coker MD PH,Ur 6.0 Normal 5.0-9.0 [facility] Comment on above: Performed By: #### U AMIC #### [address] [place] [address] Cavalry Officer: Luis M Coker MD Protein Ql (U) Negative Normal NEG [facility] Comment on above: Performed By: #### U AMIC #### [address] [address] Cavalry Officer: Luis M Coker MD Spec. [place],Ur <1.005 Low 1.005-1.030 [facility] Comment on above: Performed By: #### U AMIC #### [address] [place] [address] Cavalry Officer: Luis M Coker MD Urobilinogen,Ur 0.2 EU/dL Normal 0.0-1.0 [facility] Comment on above: Performed By: #### U [facility] #### [facility] [address] [place] [address] Cavalry Officer: Luis M Coker MD Urinalysis with Microscopico n 06-29-2023 Bilirubin Ql (U) Negative NEGATIVE [facility] Clarity (U) Clear Clear [facility] Color (U) Yellow Yellow [facility] Glucose Test strip (U) [Mass/Vol] Negative NEGATIVE mg/dL [facility] Hemoglobin Auto test strip Ql (U) Negative NEGATIVE [facility] Interpretation and review of laboratory results Abnormal [facility] Ketones (U) [Mass/Vol] Negative NEGATIVE mg/dL [facility] Leukocyte esterase Test strip Ql (U) Negative NEGATIVE [facility] Nitrite Ql (U) Negative NEGATIVE [facility] pH (U) 6.0 [pH] 5.0 - 9.0 [facility] Protein (U) [Mass/Vol] Negative NEGATIVE mg/dL [facility] RBC LM.HPF (Urine sed) [#/Area] 0 TO 2 0 TO 2 /HPF [facility] Specific gravity (U) [Rel density] Low 1.005 - 1.030 [facility] Urobilinogen Qn (U) 0.2 {Donnell'U}/dL 0. 0 - 1.0 EU/dL [facility] WBC LM.HPF (Urine sed) [#/Area] 0 TO 5 0 TO 5 /HPF [facility] CBC with Auto Differentialon 06-28-2023 Basophils (Bld) [#/Vol] 0.07 10*3/uL [facility] Basophils/100 WBC (Bld) 1 % 0.0 - 2.0 % [facility] Eosinophils (Bld) [#/Vol] 0.13 10*3/uL [facility] Eosinophils/100 WBC (Bld) 2 % 0 - 6 % [facility] Erythrocyte distribution width (RBC) [Ratio] 13.8 % 11.5 - 15.0 % [facility] Hematocrit (Bld) [Volume fraction] 45.7 % 37.0 - 54.0 % [facility] Hemoglobin (Bld) [Mass/Vol] 15.4 g/dL 12.5 - 16.5 g/dL [facility] Immature granulocytes (Bld) [#/Vol] [facility] Immature granulocytes/100 WBC (Bld) 0 % 0.0 - 5.0 % [facility] Lymphocytes/100 WBC (Bld) 28 % 20.0 - 42.0 % [facility] Lymphocytes/100 WBC (Bld) 2.34 % [facility] MCH (RBC) [Entitic mass] 30.4 pg 26.0 - 35.0 pg [facility] MCHC (RBC) [Mass/Vol] 33.7 g/dL 32.0 - 34.5 g/dL [facility] MCV (RBC) [Entitic vol] 90.1 fL 80.0 - 99.9 fL [facility] Monocytes/100 WBC (Bld) 10 % 2.0 - 12.0 % [facility] Monocytes/100 WBC (Bld) 0.79 % [facility] Neutrophils/100 WBC (Bld) 60 % 43.0 - 80.0 % [facility] Platelet mean volume (Bld) [Entitic vol] 8.7 fL 7.0 - 12.0 fL [facility] Platelets (Bld) [#/Vol] 258 10*3/uL [facility] RBC (Bld) [#/Vol] 5.07 10*6/uL 3.80 - 5.8 0 m/uL [facility] Segmented neutrophils/100 WBC (Bld) 4.96 % [facility] WBC other (Bld) [#/Vol] 8.3 [facility] CBC with Diffon 06-28-2023 Abs. Basophil 0.07 k/uL Normal 0.00-0.20 [facility] Comment on above: Performed By: #### C BCWD #### [place] [address] Cavalry Officer: Luis M Coker MD Abs.Imm.Granulocyte <0.03 Normal 0.00-0.58 [facility] Comment on above: Performed By: #### C BCWD #### [place] [address] Cavalry Officer: Luis M Coker MD Abs.Neutrophil (Seg) 4.96 k/uL Normal 1.80-7.30 [facility] Comment on above: Performed By: #### C BCWD #### [place] [address] Cavalry Officer: Luis M Coker MD Basophils/100 WBC (Bld) 1 % Normal 0.0-2.0 [facility] Comment on above: Performed By: #### C BCWD #### [place] [address] Cavalry Officer: Luis M Coker MD Eosinophils (Bld) [#/Vol] 0.13 10*3/uL Normal 0.05-0.50 [facility] Comment on above: Performed By: #### C BCWD #### [place] [address] Cavalry Officer: Luis M Coker MD Eosinophils/100 WBC (Bld) 2 % Normal 0-6 [facility] Comment on above: Performed By: #### C BCWD #### [place] [address] Cavalry Officer: Luis M Coker MD Erythrocyte distribution width (RBC) [Ratio] 13.8 % Normal 11.5-15.0 [facility] Comment on above: Performed By: #### C BCWD #### [place] [address] Cavalry Officer: Luis M Coker MD Hematocrit (Bld) [Volume fraction] 45.7 % Normal 37.0-54.0 [facility] Comment on above: Performed By: #### C BCWD #### [place] [address] Cavalry Officer: Luis M Coker MD Hemoglobin (Bld) [Mass/Vol] 15.4 g/dL Normal 12.5-16.5 [facility] Comment on above: Performed By: #### C BCWD #### [place] [address] Cavalry Officer: Luis M Coker MD Immature granulocytes/100 WBC (Bld) 0 % Normal 0.0-5.0 [facility] Comment on above: Performed By: #### C BCWD #### [place] [address] Cavalry Officer: Luis M Coker MD Lymphocytes (Bld) [#/Vol] 2.34 10*3/uL Normal 1.50-4.00 [facility] Comment on above: Performed By: #### C BCWD #### [place] [address] Cavalry Officer: Luis M Coker MD Lymphocytes/100 WBC (Bld) 28 % Normal 20.0-42.0 [facility] Comment on above: Performed By: #### C BCWD #### [place] [address] Cavalry Officer: Luis M Coker MD MCH (RBC) [Entitic mass] 30.4 pg Normal 26.0-35.0 [facility] Comment on above: Performed By: #### C BCWD #### [place] [address] Cavalry Officer: Luis M Coker MD MCHC (RBC) [Mass/Vol] 33.7 g/dL Normal 32.0-34.5 [facility] Comment on above: Performed By: #### C BCWD #### [place] [address] Cavalry Officer: Luis M Coker MD MCV (RBC) [Entitic vol] 90.1 fL Normal 80.0-99.9 [facility] Comment on above: Performed By: #### C BCWD #### [place] [address] Cavalry Officer: Luis M Coker MD Monocytes (Bld) [#/Vol] 0.79 10*3/uL Normal 0.10-0.95 [facility] Comment on above: Performed By: #### C BCWD #### [place] [address] Cavalry Officer: Luis M Coker MD Monocytes/100 WBC (Bld) 10 % Normal 2.0-12.0 [facility] Comment on above: Performed By: #### C BCWD #### [place] [address] Cavalry Officer: Luis M Coker MD Neutrophil (Seg) 60 % Normal 43.0-80.0 [facility] Comment on above: Performed By: #### C BCWD #### [place] [address] Cavalry Officer: Luis M Coker MD Platelet mean volume (Bld) [Entitic vol] 8.7 fL Normal 7.0-12.0 [facility] Comment on above: Performed By: #### C BCWD #### [address] [place] [address] Cavalry Officer: Luis M Coker MD Platelets (Bld) [#/Vol] 258 10*3/uL Normal 130-450 [facility] Comment on above: Performed By: #### C BCWD #### [address] [place] [address] Cavalry Officer: Luis M Coker MD RBC (Bld) [#/Vol] 5.07 10*6/uL Normal 3.80-5.80 [facility] Comment on above: Performed By: #### C BCWD #### [address] [place] [address] Cavalry Officer: Luis M Coker MD WBC (Bld) [#/Vol] 8.3 10*3/uL Normal 4.5-11.5 [facility] Comment on above: Performed By: #### C BCWD #### [address] [place] [address] Cavalry Officer: Luis M Coker MD CT ABDOMEN PELVIS W IV CONTR Silvia 06-28-2023 CT ABDOMEN PELVIS W IV CONTRAST EXAMINATION: CT OF THE ABDOMEN AND PELVIS WITH CONTRAST 06/28/2023 9:49 pm TECHNIQUE: CT of the abdomen and pelvis was performed with the administration of intravenous contrast. Multiplanar reformatted images are provided for review. Automated exposure control, iterative reconstruction, and/or weight based adjustment of the mA/kV was utilized to reduce the radiation dose to as low as reasonably achievable. COMPARISON: CT of the abdomen and pelvis with contrast, 06/05/2023. HISTORY: ORDERING SYSTEM PROVIDED HISTORY: epigastric pain, hx alcoholism TECHNOLOGIST PROVIDED HISTORY: Reason for exam:->epigastric pain, hx alcoholism Additional Contrast?->None Decision Support Exception - unselect if not a suspected or confirmed emergency medical condition->Emergency Medical Condition (MA) What reading provider will be dictating this exam?->CRC FINDINGS: Lower Chest: The lung bases are clear. The heart is normal in size. No pleural or pericardial effusion. Organs: Liver: The liver is enlarged, approximately measuring 20.6 cm. Diffuse steatosis. 8 mm hypodense lesion in the right lobe (axial sequence image 65) is nonspecific. In the absence of known malignancy, it is likely of a benign etiology (cyst or hemangioma). Gallbladder: Unremarkable. Pancreas: Unremarkable. Spleen: Unremarkable. Adrenals: Unremarkable. Kidneys: Unremarkable. GI/Bowel: No bowel wall thickening or obstruction. Normal appendix. Pelvis: The urinary bladder is moderately distended but otherwise unremarkable. Prostate is grossly unremarkable. Peritoneum/Retroperitone um: No lymphadenopathy. No free air or free fluid is seen. The abdominal aorta and pelvic arteries are unremarkable. Bones/Soft Tissues: The visualized bones are intact without fracture or focal lesion. IMPRESSION: 1. No acute abnormality in the abdomen or pelvis. 2. Hepatomegaly with diffuse steatosis. 3. 8 mm hypodense lesion in the right lobe of the liver is nonspecific. In the absence of known malignancy, it is likely of a benign etiology (cyst or hemangioma). 4. Moderately distended urinary bladder. Interpreted by: Mera Moreno MD Signed by: Mera Moreno MD 06/28/23 Final result Normal [facility] Comment on above: Order Comment: Reaso n for exam:->epigastric pain, hx alcoholismAdditional Contrast?->NoneDecision Support Exception - unselect if not a suspected or confirmed emergency medical condition->Emergency Medical Condition (MA)What reading provider will be dictating this exam?->CRC CT Abdomen and Pelvis W cont rast Devi 06-28-2023 1. No acute abnormal ity in the abdomen or pelvis. 2. Hepatomegaly with diffuse steatosis. 3. 8 mm hypodense lesion in the right lobe of the liver is nonspecific. In the absence of known malignancy, it is likely of a benign etiology (cyst or hemangioma). 4. Moderately distended urinary bladder. [facility] EXAMINATION: CT OF THE ABDOMEN AND PELVIS WITH CONTRAST 06/28/2023 9:49 pm TECHNIQUE: CT of the abdomen and pelvis was performed with the administration of intravenous contrast. Multiplanar reformatted images are provided for review. Automated exposure control, iterative reconstruction, and/or weight based adjustment of the mA/kV was utilized to reduce the radiation dose to as low as reasonably achievable. COMPARISON: CT of the abdomen and pelvis with contrast, 06/05/2023. HISTORY: ORDERING SYSTEM PROVIDED HISTORY: epigastric pain, hx alcoholism TECHNOLOGIST PROVIDED HISTORY: Reason for exam:->epigastric pain, hx alcoholism Additional Contrast?->None Decision Support Exception - unselect if not a suspected or confirmed emergency medical condition->Emergency Medical Condition (MA) What reading provider will be dictating this exam?->CRC FINDINGS: Lower Chest: The lung bases are clear. The heart is normal in size. No pleural or pericardial effusion. Organs: Liver: The liver is enlarged, approximately measuring 20.6 cm. Diffuse steatosis. 8 mm hypodense lesion in the right lobe (axial sequence image 65) is nonspecific. In the absence of known malignancy, it is likely of a benign etiology (cyst or hemangioma). Gallbladder: Unremarkable. Pancreas: Unremarkable. Spleen: Unremarkable. Adrenals: Unremarkable. Kidneys: Unremarkable. GI/Bowel: No bowel wall thickening or obstruction. Normal appendix. Pelvis: The urinary bladder is moderately distended but otherwise unremarkable. Prostate is grossly unremarkable. Peritoneum/Retroperitone um: No lymphadenopathy. No free air or free fluid is seen. The abdominal aorta and pelvic arteries are unremarkable. Bones/Soft Tissues: The visualized bones are intact without fracture or focal lesion. [facility] Mera Moreno MD - 06/28/2023 EXAMINATION: CT OF THE ABDOMEN AND PELVIS WITH CONTRAST 06/28/2023 9:49 pm TECHNIQUE: CT of the abdomen and pelvis was performed with the administration of intravenous contrast. Multiplanar reformatted images are provided for review. Automated exposure control, iterative reconstruction, and/or weight based adjustment of the mA/kV was utilized to reduce the radiation dose to as low as reasonably achievable. COMPARISON: CT of the abdomen and pelvis with contrast, 06/05/2023. HISTORY: ORDERING SYSTEM PROVIDED HISTORY: epigastric pain, hx alcoholism TECHNOLOGIST PROVIDED HISTORY: Reason for exam:->epigastric pain, hx alcoholism Additional Contrast?->None Decision Support Exception - unselect if not a suspected or confirmed emergency medical condition->Emergency Medical Condition (MA) What reading provider will be dictating this exam?->CRC FINDINGS: Lower Chest: The lung bases are clear. The heart is normal in size. No pleural or pericardial effusion. Organs: Liver: The liver is enlarged, approximately measuring 20.6 cm. Diffuse steatosis. 8 mm hypodense lesion in the right lobe (axial sequence image 65) is nonspecific. In the absence of known malignancy, it is likely of a benign etiology (cyst or hemangioma). Gallbladder: Unremarkable. Pancreas: Unremarkable. Spleen: Unremarkable. Adrenals: Unremarkable. Kidneys: Unremarkable. GI/Bowel: No bowel wall thickening or obstruction. Normal appendix. Pelvis: The urinary bladder is moderately distended but otherwise unremarkable. Prostate is grossly unremarkable. Peritoneum/Retroperitone um: No lymphadenopathy. No free air or free fluid is seen. The abdominal aorta and pelvic arteries are unremarkable. Bones/Soft Tissues: The visualized bones are intact without fracture or focal lesion. IMPRESSION: 1. No acute abnormality in the abdomen or pelvis. 2. Hepatomegaly with diffuse steatosis. 3. 8 mm hypodense lesion in the right lobe of the liver is nonspecific. In the absence of known malignancy, it is likely of a benign etiology (cyst or hemangioma). 4. Moderately distended urinary bladder. [facility] Radiology Study observation (narrative) [facility] CT Abdomen and Pelvis W cont rast IVOrdered By: Mera Moreno on 06-28-2023 [facility] Work Phone: Comp Metabolic Pr/rfx MGon 0 06-28-2023 Albumin [Mass/Vol] 4.7 g/dL Normal 3.5-5.2 [facility] Comment on above: Performed By: #### T ROPI, CMPX, TATO, LIP, LACTIC, PT #### [facility] [address] [place] [address]. [place] [address] Cavalry Officer: Luis M Coker MD Alkaline Phos 95 U/L Normal 40-129 [facility] Comment on above: Performed By: #### T ROPI, CMPX, TATO, LIP, LACTIC, PT #### [facility] [address] [facility] [place], [place] [id number] Cavalry Officer: Luis M Coker MD ALT [Catalytic activity/Vol] 68 U/L High 0-40 [facility] Comment on above: Performed By: #### T ROPI, CMPX, TATO, LIP, LACTIC, PT #### [place] [address] Cavalry Officer: Luis M Coker MD Anion gap [Moles/Vol] 15 mmol/L Normal 7-16 [facility] Comment on above: Performed By: #### T ROPI, CMPX, TATO, LIP, LACTIC, PT #### [place] [address] Cavalry Officer: Luis M Coker MD AST [Catalytic activity/Vol] 34 U/L Normal 0-39 [facility] Comment on above: Performed By: #### T ROPI, CMPX, TATO, LIP, LACTIC, PT #### [place] [address] Cavalry Officer: Luis M Coker MD Bilirubin [Mass/Vol] 0.2 mg/dL Normal 0.0-1.2 [facility] Comment on above: Performed By: #### T ROPI, CMPX, TATO, LIP, LACTIC, PT #### [place] [address] Cavalry Officer: Luis M Coker MD Calcium [Mass/Vol] 9.4 mg/dL Normal 8.6-10.2 [facility] Comment on above: Performed By: #### T ROPI, CMPX, TATO, LIP, LACTIC, PT #### [place] [address] Cavalry Officer: Luis M Coker MD Chloride [Moles/Vol] 105 mmol/L Normal 98-107 [facility] Comment on above: Performed By: #### T ROPI, CMPX, TATO, LIP, LACTIC, PT #### [place] [address] [place] [address] Cavalry Officer: Luis M Coker MD CO2 [Moles/Vol] 22 mmol/L Normal 22-29 [facility] Comment on above: Performed By: #### T ROPI, CMPX, TATO, LIP, LACTIC, PT #### [place] [address] [place] [address] Cavalry Officer: Luis M Coker MD Creatinine [Mass/Vol] 1.3 mg/dL High 0.70-1.20 [facility] Comment on above: Performed By: #### T ROPI, CMPX, TATO, LIP, LACTIC, PT #### [address] [place] [address] Cavalry Officer: Luis M Coker MD GFR/1.73 sq M.predicted among non-blacks MDRD (S/P/Bld) [Vol rate/Area] 72 mL/min/{1.73_m2} Normal >60 [facility] Comment on above: Result Comment: These results are not intended for use in patients <18 years of age. eGFR results are calculated without a race factor using the 2020 CKD-EPI equation. Careful clinical correlation is recommended, particularly when comparing to results calculated using previous equations. The CKD-EPI equation is less accurate in patients with extremes of muscle mass, extra-renal metabolism of creatine, excessive creatine ingestion, or following therapy that affects renal tubular secretion. Performed By: #### T ROPI, CMPX, TATO, LIP, LACTIC, PT #### [address] [place] [address] Cavalry Officer: Luis M Coker MD Glucose [Mass/Vol] 99 mg/dL Normal 74-99 [facility] Comment on above: Performed By: #### T ROPI, CMPX, TATO, LIP, LACTIC, PT #### [place] [address] [facility] [place] [address] Cavalry Officer: Luis M Coker MD Potassium [Moles/Vol] 3.7 mmol/L Normal 3.5-5.0 [facility] Comment on above: Performed By: #### T ROPI, CMPX, TATO, LIP, LACTIC, PT #### [address] [place] [address] Cavalry Officer: Luis M Coker MD Protein [Mass/Vol] 7.9 g/dL Normal 6.4-8.3 [facility] Comment on above: Performed By: #### T ROPI, CMPX, TATO, LIP, LACTIC, PT #### [address] [place] [address] Cavalry Officer: Luis M Coker MD Sodium [Moles/Vol] 142 mmol/L Normal 132-146 [facility] Comment on above: Performed By: #### T ROPI, CMPX, TATO, LIP, LACTIC, PT #### [address] [place] [address] Cavalry Officer: Luis M Coker MD Urea nitrogen [Mass/Vol] 12 mg/dL Normal 6-20 [facility] Comment on above: Performed By: #### T ROPI, CMPX, TATO, LIP, LACTIC, PT #### [address] [place] [address] Cavalry Officer: Luis M Coker MD Comprehensive Metabolic Pane l w/ Reflex to MGon 06-28-2023 Albumin [Mass/Vol] 4.7 g/dL 3.5 - 5.2 g/dL [facility] ALP [Catalytic activity/Vol] 95 U/L 40 - 129 U/L [facility] ALT [Catalytic activity/Vol] 68 U/L High 0 - 40 U/L [facility] Anion gap [Moles/Vol] 15 mmol/L 7 - 16 mmol/L [facility] AST [Catalytic activity/Vol] 34 U/L 0 - 39 U/L [facility] Bilirubin [Mass/Vol] 0.2 mg/dL 0.0 - 1 .2 mg/dL [facility] Calcium [Mass/Vol] 9.4 mg/dL 8.6 - 10. 2 mg/dL [facility] Chloride [Moles/Vol] 105 mmol/L 98 - 10 7 mmol/L [facility] CO2 [Moles/Vol] 22 mmol/L 22 - 29 mmol/L [facility] Creatinine [Mass/Vol] 1.3 mg/dL High 0.70 - 1.20 mg/dL [facility] Est, Glom Filt Rate 72 - PINF [facility] Comment on above: These results are not intended for use in patients <18 years of age. eGFR results are calculated without a race factor using the 2020 CKD-EPI equation. Careful clinical correlation is recommended, particularly when comparing to results calculated using previous equations. The CKD-EPI equation is less accurate in patients with extremes of muscle mass, extra-renal metabolism of creatine, excessive creatine ingestion, or following therapy that affects renal tubular secretion. Glucose [Mass/Vol] 99 mg/dL 74 - 99 mg/dL [facility] Potassium [Moles/Vol] 3.7 mmol/L 3.5 - 5.0 mmol/L [facility] Protein [Mass/Vol] 7.9 g/dL 6.4 - 8.3 g/dL [facility] Sodium [Moles/Vol] 142 mmol/L 132 - 146 mmol/L [facility] Urea nitrogen [Mass/Vol] 12 mg/dL 6 - 20 mg/dL [facility] Lactic Acidon 06-28-2023 Lactate (BldV) [Moles/Vol] 1.7 mmol/L 0.5 - 2.2 mmol/L [facility] Lactate [Moles/Vol] 1.7 mmol/L Normal 0.5-2.2 [facility] Comment on above: Performed By: #### T ROPI, CMPX, TATO, LIP, LACTIC, PT #### [address] [place], [place] [id number] Cav[employer] Officer: Luis M Coker MD Lipaseon 06-28-2023 Lipase [Catalytic activity/Vol] 34 U/L 13 - 60 U/L [facility] Lipase [Catalytic activity/Vol] 34 U/L Normal 13-60 [facility] Comment on above: Performed By: #### T ROPI, CMPX, TATO, LIP, LACTIC, PT #### [address] [place] [address] Cavalry Officer: Luis M Coker MD No Panel Informationon 06-27 Interpretation and review of laboratory results Abnormal [facility] PTon 06-28-2023 INR Coag (PPP) [Relative time] 1.1 {INR} Normal [facility] Comment on above: Result Comment: Therapeutic Range: Moderate Anticoagulant Intensity: INR = 2.0-3.0 High Anticoagulant Intensity: INR = 2.5-3.5 Performed By: #### T ROPI, CMPX, TATO, LIP, LACTIC, PT #### [address] [place] [address] Cav[employer] Officer: Luis M Coker MD PT Coag (PPP) [Time] 11.6 s Normal 9.3-12.4 [facility] Comment on above: Performed By: #### T ROPI, CMPX, TATO, LIP, LACTIC, PT #### [address] [place], [place] [id number] Cav[employer] Officer: Luis M Coker MD Phosphoruson 06-28-2023 Phosphate [Mass/Vol] 4.1 mg/dL 2.5 - 4 .5 mg/dL [facility] Phosphorus, Inorg.on 024 Phosphorus, Inorg. 4.1 mg/dL Normal 2.5-4.5 [facility] Comment on above: Performed By: #### T ROPI, CMPX, TATO, LIP, LACTIC, PT #### [place] [id number] [facility] [place] [address] Cav[employer] Officer: Luis M Coker MD Protime-INRon 06-28-2023 INR Coag (PPP) [Relative time] 1.1 {INR} [facility] Comment on above: Therapeutic Range: Moderate Anticoagulant Intensity: INR = 2.0-3.0 High Anticoagulant Intensity: INR = 2.5-3.5 PT Coag (PPP) [Time] 11.6 s [facility] Troponinon 06-28-2023 Troponin I.cardiac High sensitivity method [Mass/Vol] 14 ng/L High 0 - 11 ng/L [facility] Comment on above: High Sensitivity Troponin values cannot be compared with other Troponin methodologies. Patients with high levels of Biotin oral intake (i.e >5mg/day) may have falsely decreased Troponin levels. Samples collected within 8 hours of biotin intake may require additional information for diagnosis. Troponin, High Sens 14 ng/L High 0-11 [facility] Comment on above: Result Comment: High Sensitivity Troponin values cannot be compared with other Troponin methodologies. Patients with high levels of Biotin oral intake (i.e >5mg/day) may have falsely decreased Troponin levels. Samples collected within 8 hours of biotin intake may require additional information for diagnosis. Performed By: #### T ROPI, CMPX, TATO, LIP, LACTIC, PT #### [address] [place] [address] [employer] Officer: Luis M Coker MD XR CHEST 1 VIEWon 06-28-2023 XR CHEST 1 VIEW EXAMINATION: ONE XRAY VIEW OF THE CHEST 06/28/2023 9:09 pm COMPARISON: Chest series from June 05, 2023. HISTORY: ORDERING SYSTEM PROVIDED HISTORY: cp, back pain, hx alcoholism TECHNOLOGIST PROVIDED HISTORY: Reason for exam:->cp, back pain, hx alcoholism FINDINGS: Adequate and symmetric aeration of the lungs. There are no formed consolidations, pleural effusions, or pneumothoraces. Trachea and central mainstem bronchi appear clear. The cardiomediastinal silhouette and pulmonary vascularity appear within normal limits. Osseous and thoracic soft tissue structures demonstrate no acute findings. IMPRESSION: No evidence of active cardiopulmonary pathology. Interpreted by: Nany Gaviria DO Signed by: Nany Gaviria DO 06/28/23 Final result Normal [facility] Comment on above: Order Comment: Reaso n for exam:->cp, back pain, hx alcoholism XR Chest Single viewon 06-27 No evidence of activ e cardiopulmonary pathology. [facility] EXAMINATION: ONE XRAY VIEW OF THE CHEST 06/28/2023 9:09 pm COMPARISON: Chest series from June 05, 2023. HISTORY: ORDERING SYSTEM PROVIDED HISTORY: cp, back pain, hx alcoholism TECHNOLOGIST PROVIDED HISTORY: Reason for exam:->cp, back pain, hx alcoholism FINDINGS: Adequate and symmetric aeration of the lungs. There are no formed consolidations, pleural effusions, or pneumothoraces. Trachea and central mainstem bronchi appear clear. The cardiomediastinal silhouette and pulmonary vascularity appear within normal limits. Osseous and thoracic soft tissue structures demonstrate no acute findings. [facility] Nany Gaviria DO - 06/28/2023 EXAMINATION: ONE XRAY VIEW OF THE CHEST 06/28/2023 9:09 pm COMPARISON: Chest series from June 05, 2023. HISTORY: ORDERING SYSTEM PROVIDED HISTORY: cp, back pain, hx alcoholism TECHNOLOGIST PROVIDED HISTORY: Reason for exam:->cp, back pain, hx alcoholism FINDINGS: Adequate and symmetric aeration of the lungs. There are no formed consolidations, pleural effusions, or pneumothoraces. Trachea and central mainstem bronchi appear clear. The cardiomediastinal silhouette and pulmonary vascularity appear within normal limits. Osseous and thoracic soft tissue structures demonstrate no acute findings. IMPRESSION: No evidence of active cardiopulmonary pathology. [facility] [employer] Radiology Study observation (narrative) [facility] [employer] XR Chest Single viewOrdered By: Nany Gaviria on 06-28-2023 [facility] [employer] Work Phone: CBC with Auto Differentialon 06-05-2023 Basophils (Bld) [#/Vol] 0.03 10*3/uL [facility] [employer] Basophils/100 WBC (Bld) 1 % 0.0 - 2.0 % [facility] Eosinophils (Bld) [#/Vol] 0.13 10*3/uL [facility] Eosinophils/100 WBC (Bld) 2 % 0 - 6 % [facility] Erythrocyte distribution width (RBC) [Ratio] 14.6 % 11.5 - 15.0 % [facility] Hematocrit (Bld) [Volume fraction] 43.9 % 37.0 - 54.0 % [facility] Hemoglobin (Bld) [Mass/Vol] 15.4 g/dL 12.5 - 16.5 g/dL [facility] Immature granulocytes (Bld) [#/Vol] [facility] Immature granulocytes/100 WBC (Bld) 0 % 0.0 - 5.0 % [facility] Interpretation and review of laboratory results Abnormal [facility] Lymphocytes/100 WBC (Bld) 37 % 20.0 - 42.0 % [facility] Lymphocytes/100 WBC (Bld) 2.31 % [facility] MCH (RBC) [Entitic mass] 30.0 pg 26.0 - 35.0 pg [facility] MCHC (RBC) [Mass/Vol] 35.1 g/dL High 32.0 - 34.5 g/dL [facility] MCV (RBC) [Entitic vol] 85.4 fL 80.0 - 99.9 fL [facility] Monocytes/100 WBC (Bld) 11 % 2.0 - 12.0 % [facility] Monocytes/100 WBC (Bld) 0.70 % [facility] Neutrophils/100 WBC (Bld) 49 % 43.0 - 80.0 % [facility] Platelet mean volume (Bld) [Entitic vol] 8.4 fL 7.0 - 12.0 fL [facility] Platelets (Bld) [#/Vol] 334 10*3/uL [facility] RBC (Bld) [#/Vol] 5.14 10*6/uL 3.80 - 5.8 0 m/uL [facility] Segmented neutrophils/100 WBC (Bld) 3.03 % [facility] WBC other (Bld) [#/Vol] 6.2 [facility] CBC with Diffon 06-05-2023 Abs. Basophil 0.03 k/uL Normal 0.00-0.20 [facility] Comment on above: Performed By: #### C RAQUEL, CP #### [address] [address] Cavalry Officer: Parvez Norton MD #### EDTOX #### [address] [address] Cavalry Officer: Luis M Coker MD [address] [address] Cavalry Officer: Parvez Norton MD Abs.Imm.Granulocyte <0.03 Normal 0.00-0.58 [facility] Comment on above: Performed By: #### Tigre GARCÍA, CP #### [address] [address] Cavalry Officer: Parvez Norton MD #### EDTOX #### [address] [address] Cavalry Officer: Luis M Coker MD [address] [address] Cavalry Officer: Parvez Norton MD Abs.Neutrophil (Seg) 3.03 k/uL Normal 1.80-7.30 [facility] Comment on above: Performed By: #### C RAQUEL, CP #### [address] [address] Cavalry Officer: Parvez Norton MD #### EDTOX #### [address] [address] Cavalry Officer: Luis M Coker MD [address] [address] Cavalry Officer: Parvez Norton MD Basophils/100 WBC (Bld) 1 % Normal 0.0-2.0 [facility] Comment on above: Performed By: #### C RAQUEL, CP #### [address] [address] Cavalry Officer: Parvez Norton MD #### EDTOX #### [address] [address] Cavalry Officer: Luis M Coker MD [address] [address] Cavalry Officer: Parvez Norton MD Eosinophils (Bld) [#/Vol] 0.13 10*3/uL Normal 0.05-0.50 [facility] Comment on above: Performed By: #### Tigre GARCÍA, CP #### [address] [address] Cavalry Officer: Parvez Norton MD #### EDTOX #### [address] [address] Cavalry Officer: Luis M Coker MD [address] [address] Cavalry Officer: Parvez Norton MD Eosinophils/100 WBC (Bld) 2 % Normal 0-6 [facility] Comment on above: Performed By: #### Tigre GARCÍA, CP #### [address] [address] Cavalry Officer: Parvez Norton MD #### EDTOX #### [address] [address] Cavalry Officer: Luis M Coker MD [address] [address] Cavalry Officer: Parvez Norton MD Erythrocyte distribution width (RBC) [Ratio] 14.6 % Normal 11.5-15.0 [facility] Comment on above: Performed By: #### C RAQUEL, CP #### [address] [address] Cavalry Officer: Parvez Norton MD #### EDTOX #### [address] [address] Cavalry Officer: Luis M Coker MD [address] [address] Cavalry Officer: Parvez Norton MD Hematocrit (Bld) [Volume fraction] 43.9 % Normal 37.0-54.0 [facility] Comment on above: Performed By: #### C RAQUEL, CP #### [address] [address] Cavalry Officer: Parvez Norton MD #### EDTOX #### [address] [address] Cavalry Officer: Luis M Coker MD [address] [address] Cavalry Officer: Parvez Norton MD Hemoglobin (Bld) [Mass/Vol] 15.4 g/dL Normal 12.5-16.5 [facility] Comment on above: Performed By: #### C RAQUEL, CP #### [address] [address] Cavalry Officer: Parvez Norton MD #### EDTOX #### [address] [address] Cavalry Officer: Luis M Coker MD [address] [address] Cavalry Officer: Parvez Norton MD Immature granulocytes/100 WBC (Bld) 0 % Normal 0.0-5.0 [facility] Comment on above: Performed By: #### Tigre GARCÍA, CP #### [address] [address] Cavalry Officer: Parvez Norton MD #### EDTOX #### [address] [address] Cavalry Officer: Luis M Coker MD [address] [address] Cavalry Officer: Parvez Norton MD Lymphocytes (Bld) [#/Vol] 2.31 10*3/uL Normal 1.50-4.00 [facility] Comment on above: Performed By: #### Tigre GARCÍA, CP #### [address] [address] Cavalry Officer: Parvez Norton MD #### EDTOX #### [address] [address] Cavalry Officer: Luis M Coker MD [address] [address] Cavalry Officer: Parvez Norton MD Lymphocytes/100 WBC (Bld) 37 % Normal 20.0-42.0 [facility] Comment on above: Performed By: #### Tigre GARCÍA, CP #### [address] [address] Cavalry Officer: Parvez Norton MD #### EDTOX #### [address] [address] Cavalry Officer: Luis M Coker MD [address] [address] Cavalry Officer: Parvez Norton MD MCH (RBC) [Entitic mass] 30.0 pg Normal 26.0-35.0 [facility] Comment on above: Performed By: #### C RAQUEL, CP #### [address] [address] Cavalry Officer: Parvez Norton MD #### EDTOX #### [address] [address] Cavalry Officer: Luis M Coker MD [address] [address] Cavalry Officer: Parvez Norton MD MCHC (RBC) [Mass/Vol] 35.1 g/dL High 32.0-34.5 [facility] Comment on above: Performed By: #### C RAQUEL, CP #### [address] [address] Cavalry Officer: Parvez Norton MD #### EDTOX #### [address] [address] Cavalry Officer: Luis M Coker MD [address] [address] Cavalry Officer: Parvez Norton MD MCV (RBC) [Entitic vol] 85.4 fL Normal 80.0-99.9 [facility] Comment on above: Performed By: #### C RAQUEL, CP #### [address] [address] Cavalry Officer: Parvez Norton MD #### EDTOX #### [address] [address] Cavalry Officer: Luis M Coker MD [address] [address] Cavalry Officer: Parvez Norton MD Monocytes (Bld) [#/Vol] 0.70 10*3/uL Normal 0.10-0.95 [facility] Comment on above: Performed By: #### C RAQUEL, CP #### [address] [address] Cavalry Officer: Parvez Norton MD #### EDTOX #### [address] [address] Cavalry Officer: Luis M Coker MD [address] [address] Cavalry Officer: Parvez Norton MD Monocytes/100 WBC (Bld) 11 % Normal 2.0-12.0 [facility] Comment on above: Performed By: #### C RAQUEL, CP #### [address] [address] Cavalry Officer: Parvez Norton MD #### EDTOX #### [address] [address] Cavalry Officer: Luis M Coker MD [address] [address] Cavalry Officer: Parvez Norton MD Neutrophil (Seg) 49 % Normal 43.0-80.0 [facility] Comment on above: Performed By: #### Tigre GARCÍA, CP #### [address] [address] Cavalry Officer: Parvez Norton MD #### EDTOX #### [address] [address] Cavalry Officer: Luis M Coker MD [address] [address] Cavalry Officer: Parvez Norton MD Platelet mean volume (Bld) [Entitic vol] 8.4 fL Normal 7.0-12.0 [facility] Comment on above: Performed By: #### C RAQUEL, CP #### [address] [address] Cavalry Officer: Parvez Norton MD #### EDTOX #### [address] [address] Cavalry Officer: Luis M Coker MD [address] [address] Cavalry Officer: Parvez Norton MD Platelets (Bld) [#/Vol] 334 10*3/uL Normal 130-450 [facility] Comment on above: Performed By: #### C RAQUEL, CP #### [address] [address] Cavalry Officer: Parvez Norton MD #### EDTOX #### [address] [address] Cavalry Officer: Luis M Coker MD [address] [address] Cavalry Officer: Parvez Norton MD RBC (Bld) [#/Vol] 5.14 10*6/uL Normal 3.80-5.80 [facility] Comment on above: Performed By: #### C RAQUEL, CP #### [address] [address] Cavalry Officer: Parvez Norton MD #### EDTOX #### [address] [address] Cavalry Officer: Luis M Coker MD [address] [address] Cavalry Officer: Parvez Norton MD WBC (Bld) [#/Vol] 6.2 10*3/uL Normal 4.5-11.5 [facility] Comment on above: Performed By: #### C RAQUEL, CP #### [address] [address] ( Cavalry Officer: Parvez Norton MD #### EDTOX #### [facility] [address] [place] [address] Cavalry Officer: Luis M Coker MD [address] [address] ( Cavalry Officer: Parvez Norton MD Abs. Basophil 0.04 k/uL Normal 0.00-0.20 [facility] Comment on above: Performed By: #### C BCWD, CP, TROPI, ALCB #### [address] [address] Cavalry Officer: Parvez Norton MD Abs.Imm.Granulocyte 0.05 k/uL Normal 0.00-0.58 [facility] Comment on above: Performed By: #### C BCWD, CP, TROPI, ALCB #### [address] [address] ( Cavalry Officer: Parvez Norton MD Abs.Neutrophil (Seg) 2.73 k/uL Normal 1.80-7.30 [facility] Comment on above: Performed By: #### C BCWD, CP, TROPI, ALCB #### [address] [address] ( Cavalry Officer: Parvez Norton MD Basophils/100 WBC (Bld) 1 % Normal 0.0-2.0 [facility] Comment on above: Performed By: #### C BCWD, CP, TROPI, ALCB #### [address] [address] Cavalry Officer: Parvez Norton MD Eosinophils (Bld) [#/Vol] 0.14 10*3/uL Normal 0.05-0.50 [facility] Comment on above: Performed By: #### C BCWD, CP, TROPI, ALCB #### [address] [address] ( Cavalry Officer: Parvez Norton MD Eosinophils/100 WBC (Bld) 2 % Normal 0-6 [facility] Comment on above: Performed By: #### C BCWD, CP, TROPI, ALCB #### [address] [address] Cavalry Officer: Parvez Norton MD Erythrocyte distribution width (RBC) [Ratio] 14.5 % Normal 11.5-15.0 [facility] Comment on above: Performed By: #### C BCWD, CP, TROPI, ALCB #### [address] [address] ( Cavalry Officer: Parvez Norton MD Hematocrit (Bld) [Volume fraction] 42.8 % Normal 37.0-54.0 [facility] Comment on above: Performed By: #### C BCWD, CP, TROPI, ALCB #### [address] [address] ( Cavalry Officer: Parvez Norton MD Hemoglobin (Bld) [Mass/Vol] 15.2 g/dL Normal 12.5-16.5 [facility] Comment on above: Performed By: #### C BCWD, CP, TROPI, ALCB #### [address] [address] ( Cavalry Officer: Parvez Norton MD Immature granulocytes/100 WBC (Bld) 1 % Normal 0.0-5.0 [facility] Comment on above: Performed By: #### C BCWD, CP, TROPI, ALCB #### [address] [address] ( Cavalry Officer: Parvez Norton MD Lymphocytes (Bld) [#/Vol] 2.50 10*3/uL Normal 1.50-4.00 [facility] Comment on above: Performed By: #### C BCWD, CP, TROPI, ALCB #### [address] [address] ( Cavalry Officer: Parvez Norton MD Lymphocytes/100 WBC (Bld) 40 % Normal 20.0-42.0 [facility] Comment on above: Performed By: #### C BCWD, CP, TROPI, ALCB #### [address] [address] ( Cavalry Officer: Parvez Norton MD MCH (RBC) [Entitic mass] 29.8 pg Normal 26.0-35.0 [facility] Comment on above: Performed By: #### C BCOSMAR, CP, TROPI, ALCB #### [address] [address] ( Cavalry Officer: Parvez Norton MD MCHC (RBC) [Mass/Vol] 35.5 g/dL High 32.0-34.5 [facility] Comment on above: Performed By: #### C BCWD, CP, TROPI, ALCB #### [address] [address] ( Cavalry Officer: Parvez Norton MD MCV (RBC) [Entitic vol] 83.9 fL Normal 80.0-99.9 [facility] Comment on above: Performed By: #### C RAQUEL, CP, TROPI, ALCB #### [address] [address] ( Cavalry Officer: Parvez Norton MD Monocytes (Bld) [#/Vol] 0.79 10*3/uL Normal 0.10-0.95 [facility] Comment on above: Performed By: #### C BCWD, CP, TROPI, ALCB #### [address] [address] Cavalry Officer: Parvez Norton MD Monocytes/100 WBC (Bld) 13 % High 2.0-12.0 [facility] Comment on above: Performed By: #### C BCWD, CP, TROPI, ALCB #### [facility] [address] [place] [address] Cavalry Officer: Parvez Norton MD Neutrophil (Seg) 44 % Normal 43.0-80.0 [facility] Comment on above: Performed By: #### C BCWD, CP, TROPI, ALCB #### [address] [address] Cavalry Officer: Parvez Norton MD Platelet mean volume (Bld) [Entitic vol] 8.3 fL Normal 7.0-12.0 [facility] Comment on above: Performed By: #### C BCWD, CP, TROPI, ALCB #### [address] [address] Cavalry Officer: Parvez Norton MD Platelets (Bld) [#/Vol] 333 10*3/uL Normal 130-450 [facility] Comment on above: Performed By: #### C BRENDONWD, CP, TROPI, ALCB #### [address] [address] Cavalry Officer: Parvez Norton MD RBC (Bld) [#/Vol] 5.10 10*6/uL Normal 3.80-5.80 [facility] Comment on above: Performed By: #### C BCWD, CP, TROPI, ALCB #### [facility] [address] [place] [address] Cavalry Officer: Parvez Norton MD WBC (Bld) [#/Vol] 6.3 10*3/uL Normal 4.5-11.5 [facility] Comment on above: Performed By: #### C BCWD, CP, TROPI, ALCB #### [facility] [address] [place] [address] Cavalry Officer: Parvez Norton [facility] Albumin [Mass/Vol] 4.5 g/dL 3.5 - 5.2 g/dL [facility] ALP [Catalytic activity/Vol] 86 U/L 40 - 129 U/L [facility] ALT [Catalytic activity/Vol] 39 U/L 0 - 40 U/L [facility] Anion gap [Moles/Vol] 12 mmol/L 7 - 16 mmol/L [facility] AST [Catalytic activity/Vol] 25 U/L 0 - 39 U/L [facility] Bilirubin [Mass/Vol] 0.2 mg/dL 0.0 - 1 .2 mg/dL [facility] Calcium [Mass/Vol] 8.4 mg/dL Low 8.6 - 10. 2 mg/dL [facility] Chloride [Moles/Vol] 104 mmol/L 98 - 10 7 mmol/L [facility] CO2 [Moles/Vol] 25 mmol/L 22 - 29 mmol/L [facility] Creatinine [Mass/Vol] 1.2 mg/dL 0.70 - 1.20 mg/dL [facility] GFR/1.73 sq M.predicted MDRD (S/P/Bld) [Vol rate/Area] 80 mL/min/{1.73_m2} - PINF [facility] Comment on above: These results are not intended for use in patients <18 years of age. eGFR results are calculated without a race factor using the 2020 CKD-EPI equation. Careful clinical correlation is recommended, particularly when comparing to results calculated using previous equations. The CKD-EPI equation is less accurate in patients with extremes of muscle mass, extra-renal metabolism of creatine, excessive creatine ingestion, or following therapy that affects renal tubular secretion. Glucose [Mass/Vol] 110 mg/dL High 74 - 99 mg/dL [facility] Potassium [Moles/Vol] 4.0 mmol/L 3.5 - 5.0 mmol/L [facility] Protein [Mass/Vol] 7.2 g/dL 6.4 - 8.3 g/dL [facility] Sodium [Moles/Vol] 141 mmol/L 132 - 146 mmol/L [facility] Urea nitrogen [Mass/Vol] 14 mg/dL 6 - 20 mg/dL [facility] CT ABDOMEN PELVIS W IV CONTR Silvia 06-05-2023 CT ABDOMEN PELVIS W IV CONTRAST EXAMINATION: CT OF THE ABDOMEN AND PELVIS WITH CONTRAST 06/05/2023 2:38 am TECHNIQUE: CT of the abdomen and pelvis was performed with the administration of intravenous contrast. Multiplanar reformatted images are provided for review. Automated exposure control, iterative reconstruction, and/or weight based adjustment of the mA/kV was utilized to reduce the radiation dose to as low as reasonably achievable. COMPARISON: None. HISTORY: ORDERING SYSTEM PROVIDED HISTORY: Abdomen pain TECHNOLOGIST PROVIDED HISTORY: Additional Contrast?->None Reason for exam:->Abdomen pain Decision Support Exception - unselect if not a suspected or confirmed emergency medical condition->Emergency Medical Condition ([place]) FINDINGS: LOWER CHEST: Visualized lung bases are clear. LIVER: Steatosis. Small focal hypodensity segment 8 not well characterized but possibly a cyst. BILIARY: Gallbladder is without calcified stone. No significant biliary dilatation. SPLEEN: Unremarkable. PANCREAS: Grossly unremarkable. ADRENALS: Unremarkable. KIDNEYS: Symmetric enhancement. No hydronephrosis. Small exophytic hypodense lesion left kidney upper pole probably a cyst. GI: No bowel obstruction. Unremarkable appendix. No pneumoperitoneum. LYMPH NODES: No significant lymphadenopathy. VESSELS: Abdominal aorta is normal in caliber. PELVIS: Distended urinary bladder. Small fatty left inguinal hernia. BONES: No acute fracture. Mild retrolisthesis L2 on L3. Mild degenerative changes. ADDITIONAL FINDINGS: None. IMPRESSION: No acute intra-abdominal pelvic process appreciated. Hepatic steatosis. Distended urinary bladder. Additional observations as above. Interpreted by: Elfego Holland MD Signed by: Elfego Holland MD 06/05/[address] [facility] Comment on above: Order Comment: Addit ional Contrast?->NoneReason for exam:->Abdomen painDecision Support Exception - unselect if not a suspected or confirmed emergency medical condition->Emergency Medical Condition ([place]) CT CERVICAL SPINE WO CONTRAS Ton 06-05-2023 CT CERVICAL SPINE WO CONTRAST EXAMINATION: CT OF THE CERVICAL SPINE WITHOUT CONTRAST 06/05/2023 12:24 pm TECHNIQUE: CT of the cervical spine was performed without the administration of intravenous contrast. Multiplanar reformatted images are provided for review. Automated exposure control, iterative reconstruction, and/or weight based adjustment of the mA/kV was utilized to reduce the radiation dose to as low as reasonably achievable. COMPARISON: None. HISTORY: ORDERING SYSTEM PROVIDED HISTORY: etoh and concern for fall TECHNOLOGIST PROVIDED HISTORY: Reason for exam:->etoh and concern for fall Decision Support Exception - unselect if not a suspected or confirmed emergency medical condition->Emergency Medical Condition (MA) FINDINGS: BONES/ALIGNMENT: There is no acute fracture or traumatic malalignment. The ring of C1 is intact as is the dense. There is no compression fracture of the cervical spine. DEGENERATIVE CHANGES: Degenerative disc disease is noted at the C5-6 level. The remaining disc spaces are well maintained.. SOFT TISSUES: There is no prevertebral soft tissue swelling. IMPRESSION: No acute abnormality of the cervical spine. Degenerative disc disease at the C5-6 level. Interpreted by: Joel Galvin MD Signed by: Joel Galvin MD 06/05/[address] [facility] Comment on above: Order Comment: Reaso n for exam:->etoh and concern for fallDecision Support Exception - unselect if not a suspected or confirmed emergency medical condition->Emergency Medical Condition (MA) CT CERVICAL SPINE WO CONTRAST EXAMINATION: CT OF THE CERVICAL SPINE WITHOUT CONTRAST 06/05/2023 2:38 am TECHNIQUE: CT of the cervical spine was performed without the administration of intravenous contrast. Multiplanar reformatted images are provided for review. Automated exposure control, iterative reconstruction, and/or weight based adjustment of the mA/kV was utilized to reduce the radiation dose to as low as reasonably achievable. COMPARISON: None. HISTORY: ORDERING SYSTEM PROVIDED HISTORY: Fall TECHNOLOGIST PROVIDED HISTORY: Reason for exam:->Fall Decision Support Exception - unselect if not a suspected or confirmed emergency medical condition->Emergency Medical Condition (MA) FINDINGS: BONES/ALIGNMENT: Straightening which may relate to positioning or muscle spasm. No acute fracture. Degenerative changes greatest at C5-C6 with suspected narrowing of the thecal sac. SOFT TISSUES: There is no prevertebral soft tissue swelling. IMPRESSION: No acute fracture. Degenerative changes. Interpreted by: Elfego Holland MD Signed by: Elfego Holland MD 06/05/[address] [facility] Comment on above: Order Comment: Reaso n for exam:->FallDecision Support Exception - unselect if not a suspected or confirmed emergency medical condition->Emergency Medical Condition ([place]) CT Cervical spine WO contras ton 06-05-2023 No acute abnormality of the cervical spine. Degenerative disc disease at the C5-6 level. [facility] EXAMINATION: CT OF THE CERVICAL SPINE WITHOUT CONTRAST 06/05/2023 12:24 pm TECHNIQUE: CT of the cervical spine was performed without the administration of intravenous contrast. Multiplanar reformatted images are provided for review. Automated exposure control, iterative reconstruction, and/or weight based adjustment of the mA/kV was utilized to reduce the radiation dose to as low as reasonably achievable. COMPARISON: None. HISTORY: ORDERING SYSTEM PROVIDED HISTORY: etoh and concern for fall TECHNOLOGIST PROVIDED HISTORY: Reason for exam:->etoh and concern for fall Decision Support Exception - unselect if not a suspected or confirmed emergency medical condition->Emergency Medical Condition (MA) FINDINGS: BONES/ALIGNMENT: There is no acute fracture or traumatic malalignment. The ring of C1 is intact as is the dense. There is no compression fracture of the cervical spine. DEGENERATIVE CHANGES: Degenerative disc disease is noted at the C5-6 level. The remaining disc spaces are well maintained.. SOFT TISSUES: There is no prevertebral soft tissue swelling. [facility] Joel Galvin MD - 06/05/2023 EXAMINATION: CT OF THE CERVICAL SPINE WITHOUT CONTRAST 06/05/2023 12:24 pm TECHNIQUE: CT of the cervical spine was performed without the administration of intravenous contrast. Multiplanar reformatted images are provided for review. Automated exposure control, iterative reconstruction, and/or weight based adjustment of the mA/kV was utilized to reduce the radiation dose to as low as reasonably achievable. COMPARISON: None. HISTORY: ORDERING SYSTEM PROVIDED HISTORY: etoh and concern for fall TECHNOLOGIST PROVIDED HISTORY: Reason for exam:->etoh and concern for fall Decision Support Exception - unselect if not a suspected or confirmed emergency medical condition->Emergency Medical Condition (MA) FINDINGS: BONES/ALIGNMENT: There is no acute fracture or traumatic malalignment. The ring of C1 is intact as is the dense. There is no compression fracture of the cervical spine. DEGENERATIVE CHANGES: Degenerative disc disease is noted at the C5-6 level. The remaining disc spaces are well maintained.. SOFT TISSUES: There is no prevertebral soft tissue swelling. IMPRESSION: No acute abnormality of the cervical spine. Degenerative disc disease at the C5-6 level. [facility] CT HEAD WO CONTRASTon 2023 CT HEAD WO CONTRAST EXAMINATION: CT OF THE HEAD WITHOUT CONTRAST 06/05/2023 12:24 pm TECHNIQUE: CT of the head was performed without the administration of intravenous contrast. Automated exposure control, iterative reconstruction, and/or weight based adjustment of the mA/kV was utilized to reduce the radiation dose to as low as reasonably achievable. COMPARISON: None. HISTORY: ORDERING SYSTEM PROVIDED HISTORY: HEAD TRAUMA, CLOSED, MILD, GCS >= 13, NO RISK FACTORS, NEURO EXAM NORMAL TECHNOLOGIST PROVIDED HISTORY: Has a code stroke or stroke alert been called?->No Reason for exam:->acute intoxication and concern for fall Decision Support Exception - unselect if not a suspected or confirmed emergency medical condition->Emergency Medical Condition (MA) FINDINGS: BRAIN/VENTRICLES: There is no acute intracranial hemorrhage, mass effect or midline shift. No abnormal extra-axial fluid collection. The ma-white differentiation is maintained without evidence of an acute infarct. There is no evidence of hydrocephalus. ORBITS: The visualized portion of the orbits demonstrate no acute abnormality. SINUSES: The visualized paranasal sinuses and mastoid air cells demonstrate no acute abnormality. SOFT TISSUES/SKULL: No acute abnormality of the visualized skull or soft tissues. IMPRESSION: No acute intracranial abnormality. Interpreted by: Joel Galvin MD Signed by: Joel Galvin MD 06/05/[address] [facility] Comment on above: Order Comment: Has a code stroke or stroke alert been called?->NoReason for exam:->acute intoxication and concern for fallDecision Support Exception - unselect if not a suspected or confirmed emergency medical condition->Emergency Medical Condition (MA) CT HEAD WO CONTRAST EXAMINATION: CT OF THE HEAD WITHOUT CONTRAST 06/05/2023 2:38 am TECHNIQUE: CT of the head was performed without the administration of intravenous contrast. Automated exposure control, iterative reconstruction, and/or weight based adjustment of the mA/kV was utilized to reduce the radiation dose to as low as reasonably achievable. COMPARISON: None. HISTORY: ORDERING SYSTEM PROVIDED HISTORY: Fall TECHNOLOGIST PROVIDED HISTORY: Has a code stroke or stroke alert been called?->No Reason for exam:->Fall Decision Support Exception - unselect if not a suspected or confirmed emergency medical condition->Emergency Medical Condition (MA) FINDINGS: BRAIN: Ma-white differentiation is intact. CSF SPACES: No hydrocephalus. HEMORRHAGE: No acute intracranial hemorrhage is identified. MASS EFFECT: No midline shift. SINUS/MASTOIDS: Mild mucosal thickening and or polyps/retention cysts in the maxillary sinuses. SCALP: Grossly unremarkable. CALVARIUM: Intact. IMPRESSION: No acute intracranial abnormality. Interpreted by: Elfego Holland MD Signed by: Elfego Holland MD 06/05/[address] [facility] Comment on above: Order Comment: Has a code stroke or stroke alert been called?->NoReason for exam:->FallDecision Support Exception - unselect if not a suspected or confirmed emergency medical condition->Emergency Medical Condition (MA) CT Head WO contraston 2023 No acute intracrania l abnormality. [facility] EXAMINATION: CT OF THE HEAD WITHOUT CONTRAST 06/05/2023 12:24 pm TECHNIQUE: CT of the head was performed without the administration of intravenous contrast. Automated exposure control, iterative reconstruction, and/or weight based adjustment of the mA/kV was utilized to reduce the radiation dose to as low as reasonably achievable. COMPARISON: None. HISTORY: ORDERING SYSTEM PROVIDED HISTORY: HEAD TRAUMA, CLOSED, MILD, GCS >= 13, NO RISK FACTORS, NEURO EXAM NORMAL TECHNOLOGIST PROVIDED HISTORY: Has a code stroke or stroke alert been called?->No Reason for exam:->acute intoxication and concern for fall Decision Support Exception - unselect if not a suspected or confirmed emergency medical condition->Emergency Medical Condition (MA) FINDINGS: BRAIN/VENTRICLES: There is no acute intracranial hemorrhage, mass effect or midline shift. No abnormal extra-axial fluid collection. The ma-white differentiation is maintained without evidence of an acute infarct. There is no evidence of hydrocephalus. ORBITS: The visualized portion of the orbits demonstrate no acute abnormality. SINUSES: The visualized paranasal sinuses and mastoid air cells demonstrate no acute abnormality. SOFT TISSUES/SKULL: No acute abnormality of the visualized skull or soft tissues. [facility] Joel Galvin MD - 06/05/2023 EXAMINATION: CT OF THE HEAD WITHOUT CONTRAST 06/05/2023 12:24 pm TECHNIQUE: CT of the head was performed without the administration of intravenous contrast. Automated exposure control, iterative reconstruction, and/or weight based adjustment of the mA/kV was utilized to reduce the radiation dose to as low as reasonably achievable. COMPARISON: None. HISTORY: ORDERING SYSTEM PROVIDED HISTORY: HEAD TRAUMA, CLOSED, MILD, GCS >= 13, NO RISK FACTORS, NEURO EXAM NORMAL TECHNOLOGIST PROVIDED HISTORY: Has a code stroke or stroke alert been called?->No Reason for exam:->acute intoxication and concern for fall Decision Support Exception - unselect if not a suspected or confirmed emergency medical condition->Emergency Medical Condition (MA) FINDINGS: BRAIN/VENTRICLES: There is no acute intracranial hemorrhage, mass effect or midline shift. No abnormal extra-axial fluid collection. The ma-white differentiation is maintained without evidence of an acute infarct. There is no evidence of hydrocephalus. ORBITS: The visualized portion of the orbits demonstrate no acute abnormality. SINUSES: The visualized paranasal sinuses and mastoid air cells demonstrate no acute abnormality. SOFT TISSUES/SKULL: No acute abnormality of the visualized skull or soft tissues. IMPRESSION: No acute intracranial abnormality. [facility] CT Head WO contrastOrdered B y: Joel Galvin on 06-05-2023 [facility] Work Phone: Comp Metabolic Profon 2023 Albumin [Mass/Vol] 4.5 g/dL Normal 3.5-5.2 [facility] Comment on above: Performed By: #### C RAQUEL CP #### [address] [id number] Cavalry Officer: Parvez Norton MD #### EDTOX #### [facility] [address] [place] [address] Cavalry Officer: Luis M Coker MD [address] [address] Cavalry Officer: Parvez Norton MD Alkaline Phos 86 U/L Normal 40-129 [facility] Comment on above: Performed By: #### C RAQULE CP #### [address] [id number] Cavalry Officer: Parvez Norton MD #### EDTOX #### [address] [address] Cavalry Officer: Luis M Coker MD [address] [address] Cavalry Officer: Parvez Norton MD ALT [Catalytic activity/Vol] 39 U/L Normal 0-40 [facility] Comment on above: Performed By: #### C RAQUEL, CP #### [address] [address] Cavalry Officer: Parvez Norton MD #### EDTOX #### [address] [address] Cavalry Officer: Luis M Coker MD [address] [address] Cavalry Officer: Parvez Norton MD Anion gap [Moles/Vol] 12 mmol/L Normal 7-16 [facility] Comment on above: Performed By: #### Tigre GARCÍA CP #### [address] [address] Cavalry Officer: Parvez Norton MD #### EDTOX #### [address] [address] Cavalry Officer: Luis M Coker MD [address] [address] Cavalry Officer: Parvez Norton MD AST [Catalytic activity/Vol] 25 U/L Normal 0-39 [facility] Comment on above: Performed By: #### C RAQUEL, CP #### [address] [address] Cavalry Officer: Parvez Norton MD #### EDTOX #### [address] [address] Cavalry Officer: Luis M Coker MD [address] [address] Cavalry Officer: Parvez Norton MD Bilirubin [Mass/Vol] 0.2 mg/dL Normal 0.0-1.2 [facility] Comment on above: Performed By: #### Tigre GARCÍA, CP #### [address] [address] Cavalry Officer: Parvez Norton MD #### EDTOX #### [address] [address] Cavalry Officer: Luis M Coker MD [address] [address] Cavalry Officer: Parvez Norton MD Calcium [Mass/Vol] 8.4 mg/dL Low 8.6-10.2 [facility] Comment on above: Performed By: #### Tigre GARCÍA CP #### [address] [address] Cavalry Officer: Parvez Norton MD #### EDTOX #### [address] [address] Cavalry Officer: Luis M Coker MD [address] [address] Cavalry Officer: Parvez Norton MD Chloride [Moles/Vol] 104 mmol/L Normal 98-107 [facility] Comment on above: Performed By: #### Tigre GARCÍA, CP #### [address] [address] Cavalry Officer: Parvez Norton MD #### EDTOX #### [address] [address] Cavalry Officer: Luis M Coker MD [address] [address] Cavalry Officer: Parvez Norton MD CO2 [Moles/Vol] 25 mmol/L Normal 22-29 [facility] Comment on above: Performed By: #### C RAQUEL, CP #### [address] [address] Cavalry Officer: Parvez Norton MD #### EDTOX #### [facility] [address] [place] [address]. [place] [address] Cavalry Officer: Luis M Coker MD [address] [address] Cavalry Officer: Parvez Norton MD Creatinine [Mass/Vol] 1.2 mg/dL Normal 0.70-1.20 [facility] Comment on above: Performed By: #### C RAQUEL, CP #### [address] [address] Cavalry Officer: Parvez Norton MD #### EDTOX #### [address] [place] [address] Cavalry Officer: Luis M Coker MD [address] [address] Cavalry Officer: Parvez Norton MD GFR/1.73 sq M.predicted among non-blacks MDRD (S/P/Bld) [Vol rate/Area] 80 mL/min/{1.73_m2} Normal >60 [facility] Comment on above: Result Comment: These results are not intended for use in patients <18 years of age. eGFR results are calculated without a race factor using the 2020 CKD-EPI equation. Careful clinical correlation is recommended, particularly when comparing to results calculated using previous equations. The CKD-EPI equation is less accurate in patients with extremes of muscle mass, extra-renal metabolism of creatine, excessive creatine ingestion, or following therapy that affects renal tubular secretion. Performed By: #### C RAQUEL, CP #### [address] [address] Cavalry Officer: Parvez Norton MD #### EDTOX #### [address] [address] Cavalry Officer: Luis M Coker MD [address] [address] Cavalry Officer: Parvez Norton MD Glucose [Mass/Vol] 110 mg/dL High 74-99 [facility] Comment on above: Performed By: #### Tigre GARCÍA, CP #### [address] [address] Cavalry Officer: Parvez Norton MD #### EDTOX #### [address] [address] Cavalry Officer: Luis M Coker MD [address] [address] Cavalry Officer: Parvez Norton MD Potassium [Moles/Vol] 4.0 mmol/L Normal 3.5-5.0 [facility] Comment on above: Performed By: #### Tigre GARCÍA, CP #### [address] [address] Cavalry Officer: Parvez Norton MD #### EDTOX #### [address] [address] Cavalry Officer: Luis M Coker MD [address] [address] Cavalry Officer: Parvez Norton MD Protein [Mass/Vol] 7.2 g/dL Normal 6.4-8.3 [facility] Comment on above: Performed By: #### Tigre GARCÍA, CP #### [address] [address] Cavalry Officer: Parvez Norton MD #### EDTOX #### [address] [address] Cavalry Officer: Luis M Coker MD [address] [address] Cavalry Officer: Parvez Norton MD Sodium [Moles/Vol] 141 mmol/L Normal 132-146 [facility] Comment on above: Performed By: #### C RAQUEL, CP #### [address] [address] Cavalry Officer: Parvez Norton MD #### EDTOX #### [address] [address] Cavalry Officer: Luis M Coker MD [address] [address] Cavalry Officer: Parvez Norton MD Urea nitrogen [Mass/Vol] 14 mg/dL Normal 6-20 [facility] Comment on above: Performed By: #### C RAQUEL CP #### [address] [address] Cavalry Officer: Parvez Norton MD #### EDTOX #### [address] [address] Cavalry Officer: Luis M Coker MD [address] [address] Cavalry Officer: Parvez Norton MD Albumin [Mass/Vol] 4.5 g/dL Normal 3.5-5.2 [facility] Comment on above: Performed By: #### C RAQUEL, CP, TROPI, ALCB #### [address] [address] Cavalry Officer: Parvez Norton MD Alkaline Phos 83 U/L Normal 40-129 [facility] Comment on above: Performed By: #### C BCWD, CP, TROPI, ALCB #### [facility] [address] [place] [address] Cavalry Officer: Parvez Norton MD ALT [Catalytic activity/Vol] 43 U/L High 0-40 [facility] Comment on above: Performed By: #### C BCWD, CP, TROPI, ALCB #### [address] [address] Cavalry Officer: Parvez Norton MD Anion gap [Moles/Vol] 12 mmol/L Normal 7-16 [facility] Comment on above: Performed By: #### C BCWD, CP, TROPI, ALCB #### [address] [address] Cavalry Officer: Parvez Norton MD AST [Catalytic activity/Vol] 25 U/L Normal 0-39 [facility] Comment on above: Performed By: #### C BCWD, CP, TROPI, ALCB #### [address] [address] Cavalry Officer: Parvez Norton MD Bilirubin [Mass/Vol] 0.2 mg/dL Normal 0.0-1.2 [facility] Comment on above: Performed By: #### C BCWD, CP, TROPI, ALCB #### [address] [id number] Cavalry Officer: Parvez Norton MD Calcium [Mass/Vol] 9.1 mg/dL Normal 8.6-10.2 [facility] Comment on above: Performed By: #### C BCWD, CP, TROPI, ALCB #### [address] [id number] Cavalry Officer: Parvez Norton MD Chloride [Moles/Vol] 103 mmol/L Normal 98-107 [facility] Comment on above: Performed By: #### C RAQUEL CP, TROPI, ALCB #### [address] [address] Cavalry Officer: Parvez Norton MD CO2 [Moles/Vol] 25 mmol/L Normal 22-29 [facility] Comment on above: Performed By: #### C RAQUEL, CP, TROPI, ALCB #### [address] [address] Cavalry Officer: Parvez Norton MD Creatinine [Mass/Vol] 1.2 mg/dL Normal 0.70-1.20 [facility] Comment on above: Performed By: #### C RAQUEL CP, TROPI, ALCB #### [address] [address] Cavalry Officer: Parvez Norton MD GFR/1.73 sq M.predicted among non-blacks MDRD (S/P/Bld) [Vol rate/Area] 77 mL/min/{1.73_m2} Normal >60 [facility] Comment on above: Result Comment: These results are not intended for use in patients <18 years of age. eGFR results are calculated without a race factor using the 2020 CKD-EPI equation. Careful clinical correlation is recommended, particularly when comparing to results calculated using previous equations. The CKD-EPI equation is less accurate in patients with extremes of muscle mass, extra-renal metabolism of creatine, excessive creatine ingestion, or following therapy that affects renal tubular secretion. Performed By: #### C RAQUEL, CP, TROPI, ALCB #### [address] [address] Cavalry Officer: Parvez Norton MD Glucose [Mass/Vol] 97 mg/dL Normal 74-99 [facility] Comment on above: Performed By: #### C RAQUEL, CP, TROPI, ALCB #### [address] [place] [address] Cavalry Officer: Parvez Norton MD Potassium [Moles/Vol] 3.9 mmol/L Normal 3.5-5.0 [facility] Comment on above: Performed By: #### C BCWD, CP, TROPI, ALCB #### [address] [address] Cavalry Officer: Parvez Norton MD Protein [Mass/Vol] 7.3 g/dL Normal 6.4-8.3 [facility] Comment on above: Performed By: #### C BCWD, CP, TROPI, ALCB #### [address] [address] Cavalry Officer: Parvez Norton MD Sodium [Moles/Vol] 140 mmol/L Normal 132-146 [facility] Comment on above: Performed By: #### C BCWD, CP, TROPI, ALCB #### [address] [address] Cavalry Officer: Parvez Norton MD Urea nitrogen [Mass/Vol] 12 mg/dL Normal 6-20 [facility] Comment on above: Performed By: #### C BCWD, CP, TROPI, ALCB #### [address] [address] Cavalry Officer: Parvez Norton MD Drug Scr, Abuse, Uron 2023 Amphetamine(s),Ur Negative Normal NEG [facility] Comment on above: Result Comment: Cuto ff: 1000 ng/mL Performed By: #### C BCWD, CP, TROPI, ALCB #### [address] [address] Cavalry Officer: Parvez Norton MD Barbiturate(s),Ur Negative Normal NEG [facility] Comment on above: Result Comment: Cuto ff: 200 ng/ml Performed By: #### C BCWD, CP, TROPI, ALCB #### [address] [address] Cavalry Officer: Parvez Norton MD Benzodiazepine(s) Negative Normal NEG [facility] Comment on above: Result Comment: Cuto ff: 200 ng/ml Performed By: #### C BCWD, CP, TROPI, ALCB #### [address] [address] Cavalry Officer: Parvez Norton MD Buprenorphrine, Ur Negative Normal NEG [facility] Comment on above: Result Comment: Cuto ff: 5 ng/ml Performed By: #### C BCWD, CP, TROPI, ALCB #### [address] [id number] Cavalry Officer: Parvez Norton MD Cannabinoid(s),Ur Negative Normal NEG [facility] Comment on above: Result Comment: Cuto ff: 50 ng/ml Performed By: #### C BCWD, CP, TROPI, ALCB #### [address] [id number] Cavalry Officer: Parvez Norton MD Cocaine Metabolite Negative Normal NEG [facility] Comment on above: Result Comment: Cuto ff: 300 ng/ml Performed By: #### C BCWD, CP, TROPI, ALCB #### [address] [id number] Cavalry Officer: Parvez Norton MD Fentanyl, Urine Negative Normal NEG [facility] Comment on above: Result Comment: Cuto ff: 1.0 ng/ml Performed By: #### C BCWD, CP, TROPI, ALCB #### [address] [id number] Cavalry Officer: Parvez Norton MD Interpretive Info These drug screen results are for medical purposes only and should not be Normal [facility] Comment on above: Result Comment: cons idered definitive or confirmed. The drug methodology concentration value must be greater than or equal to the cutoff to be reported as positive. Confirmtory testing orders and/or interpretive sceening questions can be directed to toxicology at [phone]. The absence of expected drug(s) and/or metabolite(s) may be due to inappropriate timing of specimen collection relative to drug administration, poor drug absorption, diluted/adulterated urine, or limitations of screening methodology. Performed By: #### C BCWD, CP, TROPI, ALCB #### [address] [address] Cavalry Officer: Parvez Norton MD Methadone Ql (U) Negative Normal NEG [facility] Comment on above: Result Comment: Cuto ff: 300 ng/ml Performed By: #### C BCWD, CP, TROPI, ALCB #### [address] [address] Cavalry Officer: Parvez Norton MD Opiate(s), Ur Negative Normal NEG [facility] Comment on above: Result Comment: Cuto ff: 300 ng/ml Note: The Opiate screen is not intended to detect Oxycodone. Performed By: #### C BCWD, CP, TROPI, ALCB #### [address] [address] Cavalry Officer: Parvez Norton MD Oxycodone, Urine Negative Normal NEG [facility] Comment on above: Result Comment: Cuto ff: 100 ng/ml Performed By: #### C BCWD, CP, TROPI, ALCB #### [address] [address] Cavalry Officer: Parvez Norton MD Phencyclidine, Ur Negative Normal NEG [facility] Comment on above: Result Comment: Cuto ff: 25 ng/ml Performed By: #### C BCWD, CP, TROPI, ALCB #### [address] [address] Cavalry Officer: Parvez Norton MD Ethanol Alcoholon 06-05-2023 Ethanol [Mass/Vol] 183 mg/dL High <10 [facility] Comment on above: Performed By: #### C NICHELLE GARCÍA, TROPI, ALCB #### [id number] [place], [place] [id number] Cavalry Officer: Parvez Norton MD Lactic Acidon 06-05-2023 Lactate [Moles/Vol] 2.0 mmol/L Normal 0.5-2.2 [facility] Comment on above: Performed By: #### C NICHELLE GARCÍA, TROPI, ALCB #### [address] [address] Cavalry Officer: Parvez Norton MD Lipaseon 06-05-2023 Lipase [Catalytic activity/Vol] 34 U/L Normal 13-60 [facility] Comment on above: Performed By: #### C NICHELLE GARCÍA, TROPI, ALCB #### [address] [address] Cavalry Officer: Parvez Norton MD No Panel Informationon 06-04 Interpretation and review of laboratory results Abnormal [facility] Radiology Study observation (narrative) [facility] Tox Scr, Bld, EDon 4 Toxic Tricyclic Sc,Bl Negative Normal NEG [facility] Comment on above: Result Comment: Cuto ff: 300 ng/ml Performed By: #### C RAQUEL CP #### [address] [id number] Cavalry Officer: Parvez Norton MD #### EDTOX #### [facility] [address] [place] [address] Cavalry Officer: Luis M Coker MD [address] [address] Cavalry Officer: Parvez Norton MD Acetaminophen [Mass/Vol] ug/mL Low 10.0-30.0 [facility] Comment on above: Performed By: #### C RAQEUL, CP #### [address] [address] Cavalry Officer: Parvez Norton MD #### EDTOX #### [address] [address] Cavalry Officer: Luis M Coker MD [address] [address] Cavalry Officer: Parvez Norton MD Ethanol [Mass/Vol] 179 mg/dL High <10 [facility] Comment on above: Performed By: #### C RAQUEL, CP #### [address] [address] Cavalry Officer: Parvez Norton MD #### EDTOX #### [address] [address] Cavalry Officer: Luis M Coker MD [address] [address] Cavalry Officer: Parvez Norton MD Salicylate <0.3 Normal 0.0-30.0 [facility] Comment on above: Performed By: #### C RAQUEL, CP #### [address] [address] Cavalry Officer: Parvez Norton MD #### EDTOX #### [address] [address] Cavalry Officer: Luis M Coker MD [address] [address] Cavalry Officer: Parvez Norton MD Troponinon 06-05-2023 Troponin, High Sens 9 ng/L Normal 0-11 [facility] Comment on above: Result Comment: High Sensitivity Troponin values cannot be compared with other Troponin methodologies. Patients with high levels of Biotin oral intake (i.e >5mg/day) may have falsely decreased Troponin levels. Samples collected within 8 hours of biotin intake may require additional information for diagnosis. Performed By: #### C RAQUEL, CP, TROPI, ALCB #### [address] [facility] [place] [address] Cavalry Officer: Parvez Norton MD URINE DRUG SCREENon 06-05-19 24 Amphetamines Ql (U) Negative NEGATIVE [facility] Comment on above: Cutoff: 1000 ng/mL Barbiturates Screen Ql (U) Negative NEGATIVE [facility] Comment on above: Cutoff: 200 ng/ml Benzodiazepines Ql (U) Negative NEGATIVE [facility] Comment on above: Cutoff: 200 ng/ml Buprenorphine Ql (U) Negative NEGATIVE [facility] Comment on above: Cutoff: 5 ng/ml Cannabinoids Screen Ql (U) Negative NEGATIVE [facility] Comment on above: Cutoff: 50 ng/ml Cocaine Ql (U) Negative NEGATIVE [facility] Comment on above: Cutoff: 300 ng/ml fentaNYL Ql (U) Negative NEGATIVE [facility] Comment on above: Cutoff: 1.0 ng/ml Methadone Ql (U) Negative NEGATIVE [facility] Comment on above: Cutoff: 300 ng/ml Opiates Screen Ql (U) Negative NEGATIVE [facility] Comment on above: Cutoff: 300 ng/ml Note: The Opiate screen is not intended to detect Oxycodone. oxyCODONE Ql (U) Negative NEGATIVE [facility] Comment on above: Cutoff: 100 ng/ml Phencyclidine Ql (U) Negative NEGATIVE [facility] Comment on above: Cutoff: 25 ng/ml Test Information These drug screen results are for medical purposes only and should not be considered definitive or confirmed. [facility] Comment on above: The drug methodology concentration value must be greater than or equal to the cutoff to be reported as positive. Confirmtory testing orders and/or interpretive sceening questions can be directed to toxicology at [phone]. The absence of expected drug(s) and/or metabolite(s) may be due to inappropriate timing of specimen collection relative to drug administration, poor drug absorption, diluted/adulterated urine, or limitations of screening methodology. [facility] Valproic Acidon 06-05-2023 Valproic Acid 11 ug/mL Low 50-100 [facility] Comment on above: Performed By: #### C RAQUEL, CP #### [address] [address] Cavalry Officer: Parvez Norton MD #### EDTOX #### [address] [address] Cavalry Officer: Luis M Coker MD [address] [address] Cavalry Officer: Parvez Norton MD Date last dose, Unknown Normal [facility] Comment on above: Performed By: #### Tigre GARCÍA, CP #### [address] [address] Cavalry Officer: Parvez Norton MD #### EDTOX #### [address] [address] Cavalry Officer: Luis M Coker MD [address] [address] Cavalry Officer: Parvez Norton MD Dose amount Unknown Normal [facility] Comment on above: Performed By: #### Tigre GARCÍA, CP #### [address] [address] Cavalry Officer: Parvez Norton MD #### EDTOX #### [address] [address] Cavalry Officer: Luis M Coker MD [address] [address] Cavalry Officer: Parvez Norton MD Time last dose, Unknown Normal [facility] Comment on above: Performed By: #### C RAQUEL, CP #### [facility] [address] [place] [address] Cavalry Officer: Parvez Norton MD #### EDTOX #### [facility] [address] [place] [address] Cavalry Officer: Luis M Coker MD [facility] [address] [place] [address] Cavalry Officer: Parvez Norton MD Valproic Acid Level, Totalon 06-05-2023 Date last dose (Dose) UNK^Unknown^L [facility] Time last dose (Dose) UNK^Unknown^L [facility] Valproate [Mass/Vol] 11 ug/mL Low 50 - 10 0 ug/mL NX [facility] Vancomycin (Dose) [Mass] Unknown [facility] XR CHEST PORTABLEon 06-05-19 24 XR CHEST PORTABLE EXAMINATION: ONE XRAY VIEW OF THE CHEST 06/05/2023 2:07 am COMPARISON: None. HISTORY: ORDERING SYSTEM PROVIDED HISTORY: Neck pain TECHNOLOGIST PROVIDED HISTORY: Reason for exam:->Neck pain IMPRESSION: Cardiomediastinal silhouette is within normal limits for size. No focal consolidation, sizeable pleural effusion, or gross pneumothorax. Interpreted by: Elfego Holland MD Signed by: Elfego Holland MD 06/05/[address] [facility] Comment on above: Order Comment: Reaso n for exam:->Neck pain CBC with Diffon 05-23-2023 Abs. Basophil 0.04 k/uL Normal 0.00-0.20 [facility] Comment on above: Performed By: #### P ROL ####[facility] [place] [address] Lab Director: Luis M Coker MD#### EDTOX ####[facility] [place] [address] Lab Director: Luis M Cokert Benjamin [address] [address] Lab Director: Parvez Norton MD#### LIP, CP, TROPI, LACTIC, CBCWD ####[address] [phone] Director: Parvez Norton MD Abs.Imm.Granulocyte <0.03 Normal 0.00-0.58 [facility] Comment on above: Performed By: #### P ROL ####[address] [address] Lab Director: Luis M Coker MD#### EDTOX ####[address] [address] Lab Director: Luis M Coker [address] [address] Lab Director: Parvez Norton MD#### LIP, CP, TROPI, LACTIC, CBCWD ####[address] [address] Lab Director: Parvez Norton MD Abs.Neutrophil (Seg) 4.69 k/uL Normal 1.80-7.30 [facility] Comment on above: Performed By: #### P ROL ####[address] [address] Lab Director: Luis M Coker MD#### EDTOX ####[address] [phone] Director: Luis M Coker [address] [address] Lab Director: Parvez Norton MD#### LIP, CP, TROPI, LACTIC, CBCWD ####[address] [address] Lab Director: Parvez Norton MD Basophils/100 WBC (Bld) 1 % Normal 0.0-2.0 [facility] Comment on above: Performed By: #### P ROL ####[address] [address] Lab Director: Luis M Coker MD#### EDTOX ####[address] [address] Lab Director: Luis M Coker[address] [address]([facility])[phone] Director: Parvez Norton MD#### LIP, CP, TROPI, LACTIC, CBCWD ####[address] [address] Lab Director: Parvez oNrton MD Eosinophils (Bld) [#/Vol] 0.21 10*3/uL Normal 0.05-0.50 [facility] Comment on above: Performed By: #### P ROL ####[place] [address] Lab Director: Luis M Coker MD#### EDTOX ####[place] [address] Lab Director: Luis M Coker [address] [address]([facility])[phone] Director: Parvez Norton MD#### LIP, CP, TROPI, LACTIC, CBCWD ####[address] [address] Lab Director: Parvez Norton MD Eosinophils/100 WBC (Bld) 3 % Normal 0-6 [facility] Comment on above: Performed By: #### P ROL ####[address] [address] Lab Director: Luis M Coker MD#### EDTOX ####[address] [address] Lab Director: Luis M Coker [address] [phone] Director: Parvez Norton MD#### LIP, CP, TROPI, LACTIC, CBCWD ####[address] [phone] Director: Parvez Norton MD Erythrocyte distribution width (RBC) [Ratio] 14.3 % Normal 11.5-15.0 [facility] Comment on above: Performed By: #### P ROL ####[address] [address] Lab Director: Luis M Coker MD#### EDTOX ####[address] [address] Lab Director: Luis M Coker [address] [phone] Director: Parvez Norton MD#### LIP, CP, TROPI, LACTIC, CBCWD ####[address] [phone] Director: Parvez Norton MD Hematocrit (Bld) [Volume fraction] 43.7 % Normal 37.0-54.0 [facility] Comment on above: Performed By: #### P ROL ####[address] [phone] Director: Luis M Coker MD#### EDTOX ####[address] [address] Lab Director: John Paul, Luis M [address] [address] Lab Director: Parvez Norton MD#### LIP, CP, TROPI, LACTIC, CBCWD ####[address] [address] Lab Director: Parvez Norton MD Hemoglobin (Bld) [Mass/Vol] 15.2 g/dL Normal 12.5-16.5 [facility] Comment on above: Performed By: #### P ROL ####[address] [address] Lab Director: Luis M Coker MD#### EDTOX ####[address] [address] Lab Director: Luis M Coker [address] [address]([facility])[phone] Director: Parvez Norton MD#### LIP, CP, TROPI, LACTIC, CBCWD ####[address] [address] Lab Director: Parvez Norton MD Immature granulocytes/100 WBC (Bld) 0 % Normal 0.0-5.0 [facility] Comment on above: Performed By: #### P ROL ####[address] [address] Lab Director: Luis M Coker MD#### EDTOX ####[address] [address] Lab Director: Luis M Coker [address] [address] Lab Director: Parvez Norton MD#### LIP, CP, TROPI, LACTIC, CBCWD ####[address] [address]([facility])[phone] Director: Parvez Norton MD Lymphocytes (Bld) [#/Vol] 2.65 10*3/uL Normal 1.50-4.00 [facility] Comment on above: Performed By: #### P ROL ####[place], [place] [address])[phone] Director: Luis M Coker MD#### EDTOX ####[place], [place] [address])[phone] Director: Luis M [place]oker [place] [address])[phone] Director: Parvez Norton MD#### LIP, CP, TROPI, LACTIC, CBCWD ####[place], [place] [address])[phone] Director: Parvez Norton MD Lymphocytes/100 WBC (Bld) 32 % Normal 20.0-42.0 [facility] Comment on above: Performed By: #### P ROL ####[place] [address]([facility])[phone] Director: Luis M Coker MD#### EDTOX ####[place], [place] [address])[phone] Director: Luis M [place]oker [place] [address])[phone] Director: Parvez Norton MD#### LIP, CP, TROPI, LACTIC, CBCWD ####[address] [address]([facility])[phone] Director: Parvez Norton MD MCH (RBC) [Entitic mass] 29.3 pg Normal 26.0-35.0 [facility] Comment on above: Performed By: #### P ROL ####[place] [place] [address] Lab Director: Luis M Coker MD#### EDTOX ####[address] [place] [phone] Director: Luis M Coker [address] [address] Lab Director: Parvez Norton MD#### LIP, CP, TROPI, LACTIC, CBCWD ####[address] [phone] Director: Parvez Norton MD MCHC (RBC) [Mass/Vol] 34.8 g/dL High 32.0-34.5 [facility] Comment on above: Performed By: #### P ROL ####[address] [address] Lab Director: Luis M Coker MD#### EDTOX ####[address] [address] Lab Director: Luis M Coker [address] [address] Lab Director: Parvez Norton MD#### LIP, CP, TROPI, LACTIC, CBCWD ####[address] [address] Lab Director: Parvez Norton MD MCV (RBC) [Entitic vol] 84.4 fL Normal 80.0-99.9 [facility] Comment on above: Performed By: #### P ROL ####[address] [address] Lab Director: Luis M Coker MD#### EDTOX ####[address] [address] Lab Director: Luis M Coker [facility] [address] [address]([facility])[phone] Director: Parvez Norton MD#### LIP, CP, TROPI, LACTIC, CBCWD ####[address] [address] Lab Director: Parvez Norton MD Monocytes (Bld) [#/Vol] 0.62 10*3/uL Normal 0.10-0.95 [facility] Comment on above: Performed By: #### P ROL ####[place] [address] Lab Director: Luis M Coker MD#### EDTOX ####[place] [address] Lab Director: Luis M Coker [address] [address]([facility])[phone] Director: Parvez Norton MD#### LIP, CP, TROPI, LACTIC, CBCWD ####[address] [address]([facility])[phone] Director: Parvez Norton MD Monocytes/100 WBC (Bld) 8 % Normal 2.0-12.0 [facility] Comment on above: Performed By: #### P ROL ####[place] [address] Lab Director: Luis M Coker MD#### EDTOX ####[address] [phone] Director: Luis M Coker [address] [address]([facility])[phone] Director: Parvez Norton MD#### LIP, CP, TROPI, LACTIC, CBCWD ####[facility] [place] [address] Lab Director: Parvez Norton MD Neutrophil (Seg) 57 % Normal 43.0-80.0 [facility] Comment on above: Performed By: #### P ROL ####[address] [address] Lab Director: Luis M Coker MD#### EDTOX ####[address] [phone] Director: Luis M Coker [address] [address] Lab Director: Parvez Norton MD#### LIP, CP, TROPI, LACTIC, CBCWD ####[address] [address] Lab Director: Parvez Norton MD Platelet mean volume (Bld) [Entitic vol] 8.7 fL Normal 7.0-12.0 [facility] Comment on above: Performed By: #### P ROL ####[address] [address] Lab Director: Luis M Coker MD#### EDTOX ####[address] [address] Lab Director: Luis M Coker [facility] [address] [address]([facility])[phone] Director: Parvez Norton MD#### LIP, CP, TROPI, LACTIC, CBCWD ####[address] [address] Lab Director: Parvez Norton MD Platelets (Bld) [#/Vol] 278 10*3/uL Normal 130-450 [facility] Comment on above: Performed By: #### P ROL ####[address] [place] [phone] Director: Luis M Coker MD#### EDTOX ####[address] [place] [phone] Director: Luis M Coker [address] [phone] Director: Parvez Norton MD#### LIP, CP, TROPI, LACTIC, CBCWD ####[address] [address] Lab Director: Parvez Norton MD RBC (Bld) [#/Vol] 5.18 10*6/uL Normal 3.80-5.80 [facility] Comment on above: Performed By: #### P ROL ####[address] [place] [phone] Director: Luis M Coker MD#### EDTOX ####[address] [phone] Director: Luis M Coker [address] [phone] Director: Parvez Nortno MD#### LIP, CP, TROPI, LACTIC, CBCWD ####[address] [phone] Director: Parvez Norton MD WBC (Bld) [#/Vol] 8.2 10*3/uL Normal 4.5-11.5 [facility] Comment on above: Performed By: #### P ROL ####[address] [place] [phone] Director: Luis M Coker MD#### EDTOX ####[facility] [place] [address] Lab Director: Luis M Coker [facility] [place] [address] Lab Director: Parvez Norton MD#### LIP, CP, TROPI, LACTIC, CBCWD ####[facility] [place] [address] Lab Director: Parvez Norton MD CT HEAD WO CONTRASTon 2023 CT HEAD WO CONTRAST EXAMINATION: CT OF THE HEAD WITHOUT CONTRAST 05/23/2023 12:56 am TECHNIQUE: CT of the head was performed without the administration of intravenous contrast. Automated exposure control, iterative reconstruction, and/or weight based adjustment of the mA/kV was utilized to reduce the radiation dose to as low as reasonably achievable. COMPARISON: May 15, 2023 HISTORY: ORDERING SYSTEM PROVIDED HISTORY: ETOH abuse, brought in by EMS TECHNOLOGIST PROVIDED HISTORY: Has a code stroke or stroke alert been called?->No Reason for exam:->ETOH abuse, brought in by EMS Decision Support Exception - unselect if not a suspected or confirmed emergency medical condition->Emergency Medical Condition (MA) FINDINGS: BRAIN/VENTRICLES: There is no acute intracranial hemorrhage, mass effect or midline shift. No abnormal extra-axial fluid collection. The ma-white differentiation is maintained without evidence of an acute infarct. There is no evidence of hydrocephalus. ORBITS: The visualized portion of the orbits demonstrate no acute abnormality. SINUSES: The visualized paranasal sinuses and mastoid air cells demonstrate no acute abnormality. SOFT TISSUES/SKULL: No acute abnormality of the visualized skull or soft tissues. IMPRESSION: No acute intracranial abnormality. Interpreted by: Angela Cooley MD Signed by: Angela Cooley MD 05/23/[address] [facility] Comment on above: Order Comment: Has a code stroke or stroke alert been called?->NoReason for exam:->ETOH abuse, brought in by EMSDecision Support Exception - unselect if not a suspected or confirmed emergency medical condition->Emergency Medical Condition (MA) Comp Metabolic Profon 2023 Albumin [Mass/Vol] 4.4 g/dL Normal 3.5-5.2 [facility] Comment on above: Performed By: #### P ROL ####[facility] [facility] [place] [address] Lab Director: Luis M Coker MD#### EDTOX ####[address] [address] Lab Director: Luis M Coker [facility] [address] [address] Lab Director: Parvez Norton MD#### LIP, CP, TROPI, LACTIC, CBCWD ####[address] [address] Lab Director: Parvez oNrton MD Alkaline Phos 104 U/L Normal 40-129 [facility] Comment on above: Performed By: #### P ROL ####[facility] [place] [address] Lab Director: Luis M Coker MD#### EDTOX ####[address] [address] Lab Director: Luis M Coker [address] [address] Lab Director: Parvez Norton MD#### LIP, CP, TROPI, LACTIC, CBCWD ####[address] [address] Lab Director: Parvez Norton MD ALT [Catalytic activity/Vol] 79 U/L High 0-40 [facility] Comment on above: Performed By: #### P ROL ####[address] [address] Lab Director: Luis M Coker MD#### EDTOX ####[address] [phone] Director: Luis M Coker [address] [address] Lab Director: Parvez Norton MD#### LIP, CP, TROPI, LACTIC, CBCWD ####[address] [address] Lab Director: Parvez Norton MD Anion gap [Moles/Vol] 16 mmol/L Normal 7-16 [facility] Comment on above: Performed By: #### P ROL ####[address] [address] Lab Director: Luis M Coker MD#### EDTOX ####[address] [address] Lab Director: Luis M Coker [facility] [address] [address] Lab Director: Parvez Norton MD#### LIP, CP, TROPI, LACTIC, CBCWD ####[address] [address] Lab Director: Parvez Norton MD AST [Catalytic activity/Vol] 82 U/L High 0-39 [facility] Comment on above: Performed By: #### P ROL ####[address] [address] Lab Director: Luis M Coker MD#### EDTOX ####[address] [address] Lab Director: Luis M Coker [address] [address] Lab Director: Parvez Norton MD#### LIP, CP, TROPI, LACTIC, CBCWD ####[facility] [place] [address] Lab Director: Parvez Norton MD Bilirubin [Mass/Vol] mg/dL Normal 0.0-1.2 [facility] Comment on above: Performed By: #### P ROL ####[address] [address] Lab Director: Luis M Coker MD#### EDTOX ####[address] [address] Lab Director: Luis M Coker [address] [address] Lab Director: Parvez Norton MD#### LIP, CP, TROPI, LACTIC, CBCWD ####[address] [address] Lab Director: Parvez Norton MD Calcium [Mass/Vol] 9.3 mg/dL Normal 8.6-10.2 [facility] Comment on above: Performed By: #### P ROL ####[address] [address] Lab Director: Luis M Coker MD#### EDTOX ####[address] [address] Lab Director: Luis M Coker [facility] [address] [address] Lab Director: Parvez Norton MD#### LIP, CP, TROPI, LACTIC, CBCWD ####[place] [address] [place] [address] Lab Director: Parvez Norton MD Chloride [Moles/Vol] 106 mmol/L Normal 98-107 [facility] Comment on above: Performed By: #### P ROL ####[address] [place] [address] Lab Director: Luis M Coker MD#### EDTOX ####[address] [address] Lab Director: Luis M Coker [address] [address] Lab Director: Parvez Norton MD#### LIP, CP, TROPI, LACTIC, CBCWD ####[address] [phone] Director: Parvez Norton MD CO2 [Moles/Vol] 19 mmol/L Low 22-29 [facility] Comment on above: Performed By: #### P ROL ####[address] [place] [address] Lab Director: Luis M Coker MD#### EDTOX ####[address] [address] Lab Director: Luis M Coker [address] [address] Lab Director: Parvez Norton MD#### LIP, CP, TROPI, LACTIC, CBCWD ####[address] [address] Lab Director: Parvez Norton MD Creatinine [Mass/Vol] 1.0 mg/dL Normal 0.70-1.20 [facility] Comment on above: Performed By: #### P ROL ####[address] [place] [address] Lab Director: Luis M Coker MD#### EDTOX ####[address], [place] [phone] Director: Luis M Coker [facility] [place], [place] [phone] Director: Parvez Norton MD#### LIP, CP, TROPI, LACTIC, CBCWD ####[facility] [place] [address] Lab Director: Parvez Norton MD GFR/1.73 sq M.predicted among non-blacks MDRD (S/P/Bld) [Vol rate/Area] mL/min/{1.73_m2} Normal >60 [facility] Comment on above: Result Comment: These results are not intended for use in patients <18 years of age. eGFR results are calculated without a race factor using the 2020 CKD-EPI equation. Careful clinical correlation is recommended, particularly when comparing to results calculated using previous equations. The CKD-EPI equation is less accurate in patients with extremes of muscle mass, extra-renal metabolism of creatine, excessive creatine ingestion, or following therapy that affects renal tubular secretion. Performed By: #### P ROL ####[place] [address] [place], [place] [phone] Director: Luis M Coker MD#### EDTOX ####[address] [place] [place], [place] [phone] Director: Luis M Coker [place] [address] [place], [place] [phone] Director: Parvez Norton MD#### LIP, CP, TROPI, LACTIC, CBCWD ####[facility] [place], [place] [phone] Director: Parvez Norton MD Glucose [Mass/Vol] 109 mg/dL High 74-99 [facility] Comment on above: Performed By: #### P ROL ####[facility] [place] [address] Lab Director: Luis M Coker MD#### EDTOX ####[address] [address] Lab Director: Luis M Coker [place] [address] [phone] Director: Parvez Norton MD#### LIP, CP, TROPI, LACTIC, CBCWD ####[address] [phone] Director: Parvez Norton MD Potassium [Moles/Vol] 3.8 mmol/L Normal 3.5-5.0 [facility] Comment on above: Performed By: #### P ROL ####[address] [address] Lab Director: Luis M Coker MD#### EDTOX ####[address] [address] Lab Director: Luis M Coker [address] [phone] Director: Parvez Norton MD#### LIP, CP, TROPI, LACTIC, CBCWD ####[address] [address] Lab Director: Parvez Norton MD Protein [Mass/Vol] 7.5 g/dL Normal 6.4-8.3 [facility] Comment on above: Performed By: #### P ROL ####[address] [phone] Director: Luis M Coker MD#### EDTOX ####[address] [address] Lab Director: Luis M Coker [address] [place] [address] Lab Director: Parvez Norton MD#### LIP, CP, TROPI, LACTIC, CBCWD ####[address] [address] Lab Director: Parvez Norton MD Sodium [Moles/Vol] 141 mmol/L Normal 132-146 [facility] Comment on above: Performed By: #### P ROL ####[address] [address] Lab Director: Luis M Coker MD#### EDTOX ####[address] [address] Lab Director: Luis M Coker [address] [address]([facility])[phone] Director: Parvez Norton MD#### LIP, CP, TROPI, LACTIC, CBCWD ####[address] [address] Lab Director: Parvez Norton MD Urea nitrogen [Mass/Vol] 16 mg/dL Normal 6-20 [facility] Comment on above: Performed By: #### P ROL ####[address] [address] Lab Director: Luis M Coker MD#### EDTOX ####[address] [address] Lab Director: Luis M Coker [address] [address]([facility])[phone] Director: Parvez Norton MD#### LIP, CP, TROPI, LACTIC, CBCWD ####[address] [address]([facility])[phone] Director: Parvez Norton MD Drug Scr, Abuse, Uron 2023 Amphetamine(s),Ur Negative Normal NEG [facility] Comment on above: Result Comment: Cuto ff: 1000 ng/mL Performed By: #### C RAQUEL, CP #### [address] [address] Cavalry Officer: Parvez Norton MD #### EDTOX #### [address] [address] Cavalry Officer: Luis M Coker MD [address] [address] Cavalry Officer: Parvez Norton MD Barbiturate(s),Ur Positive Abnormal NEG [facility] Comment on above: Result Comment: Cuto ff: 200 ng/ml Performed By: #### Tigre GARCÍA, CP #### [address] [address] Cavalry Officer: Parvez Norton MD #### EDTOX #### [address] [address] Cavalry Officer: Luis M Coker MD [address] [address] Cavalry Officer: Parvez Norton MD Benzodiazepine(s) Negative Normal NEG [facility] Comment on above: Result Comment: Cuto ff: 200 ng/ml Performed By: #### C RAQUEL, CP #### [address] [address] Cavalry Officer: Parvez Norton MD #### EDTOX #### [address] [address] Cavalry Officer: Luis M Coker MD [address] [address] Cavalry Officer: Parvez Norton MD Buprenorphrine, Ur Negative Normal NEG [facility] Comment on above: Result Comment: Cuto ff: 5 ng/ml Performed By: #### C RAQUEL, CP #### [address] [address] Cavalry Officer: Parvez Norton MD #### EDTOX #### [address] [address] Cavalry Officer: Luis M Coker MD [address] [address] Cavalry Officer: Parvez Norton MD Cannabinoid(s),Ur Negative Normal NEG [facility] Comment on above: Result Comment: Cuto ff: 50 ng/ml Performed By: #### C RAQUEL, CP #### [address] [address] Cavalry Officer: Parvez Norton MD #### EDTOX #### [address] [address] Cavalry Officer: Luis M Coker MD [address] [address] Cavalry Officer: Parvez Norton MD Cocaine Metabolite Negative Normal NEG [facility] Comment on above: Result Comment: Cuto ff: 300 ng/ml Performed By: #### C RAQUEL, CP #### [address] [address] Cavalry Officer: Parvez Norton MD #### EDTOX #### [address] [address] Cavalry Officer: Luis M Coker MD [address] [address] Cavalry Officer: Parvez Norton MD Fentanyl, Urine Negative Normal NEG [facility] Comment on above: Result Comment: Cuto ff: 1.0 ng/ml Performed By: #### C RAQUEL, CP #### [address] [address] Cavalry Officer: Parvez Norton MD #### EDTOX #### [facility] [address] [place] [address] Cavalry Officer: Luis M Coker MD [address] [address] Cavalry Officer: Parvez Norton MD Interpretive Info These drug screen results are for medical purposes only and should not be Normal [facility] Comment on above: Result Comment: cons idered definitive or confirmed. The drug methodology concentration value must be greater than or equal to the cutoff to be reported as positive. Confirmtory testing orders and/or interpretive sceening questions can be directed to toxicology at [phone]. The absence of expected drug(s) and/or metabolite(s) may be due to inappropriate timing of specimen collection relative to drug administration, poor drug absorption, diluted/adulterated urine, or limitations of screening methodology. Performed By: #### C RAQUEL, CP #### [address] [address] Cavalry Officer: Parvez Norton MD #### EDTOX #### [address] [place] [place] [address] Cavalry Officer: Luis M Coker MD [address] [address] Cavalry Officer: Parvez Norton MD Methadone Ql (U) Negative Normal NEG [facility] Comment on above: Result Comment: Cuto ff: 300 ng/ml Performed By: #### C RAQUEL, CP #### [address] [address] Cavalry Officer: Parvez Norton MD #### EDTOX #### [address] [address] Cavalry Officer: Luis M Coker MD [address] [address] Cavalry Officer: Parvez Norton MD Opiate(s), Ur Negative Normal NEG [facility] Comment on above: Result Comment: Cuto ff: 300 ng/ml Note: The Opiate screen is not intended to detect Oxycodone. Performed By: #### C RAQUEL, CP #### [address] [address] Cavalry Officer: Parvez Norton MD #### EDTOX #### [address] [address] Cavalry Officer: Luis M Coker MD [address] [address] Cavalry Officer: Parvez Norton MD Oxycodone, Urine Negative Normal NEG [facility] Comment on above: Result Comment: Cuto ff: 100 ng/ml Performed By: #### C RAQUEL, CP #### [address] [address] Cavalry Officer: Parvez Norton MD #### EDTOX #### [address] [address] Cavalry Officer: Luis M Coker MD [address] [address] Cavalry Officer: Parvez Norton MD Phencyclidine, Ur Negative Normal NEG [facility] Comment on above: Result Comment: Cuto ff: 25 ng/ml Performed By: #### C RAQUEL, CP #### [address] [address] Cavalry Officer: Parvez Norton MD #### EDTOX #### [facility] [address] [place] [address] Cavalry Officer: Luis M Coker MD [address] [address] Cavalry Officer: Parvez Norton MD Ethanol Alcoholon 05-23-2023 Ethanol [Mass/Vol] 129 mg/dL High <10 [facility] Comment on above: Performed By: #### A MON #### [address] [address] Cavalry Officer: Parvez Norton MD Lactic Acidon 05-23-2023 Lactate [Moles/Vol] 2.0 mmol/L Normal 0.5-2.2 [facility] Comment on above: Performed By: #### P ROL ####[address] [address]([facility])[phone] Director: Luis M Coker MD#### EDTOX ####[address] [address] Lab Director: Luis M Coker[address] [address]([facility])[phone] Director: Parvez Norton MD#### LIP, CP, TROPI, LACTIC, CBCWD ####[address] [address]([facility])[phone] Director: Parvez Norton MD Lipaseon 05-23-2023 Lipase [Catalytic activity/Vol] 47 U/L Normal 13-60 [facility] Comment on above: Performed By: #### P ROL ####[address] [place] [address] Lab Director: Luis M Coker MD#### EDTOX ####[address] [address] Lab Director: John Paul, Luis M [address] [address] Lab Director: Parvez Norton MD#### LIP, CP, TROPI, LACTIC, CBCWD ####[address] [address] Lab Director: Parvze Norton MD Prolactinon 4 Prolactin 8.53 ng/mL Normal [facility] Comment on above: Result Comment: PROLACTIN Reference Range: Female (not ) 4.79 - 23.3 ng/mL Male 4.04 - 15.2 ng/mL Performed By: #### P ROL ####[address] [address] Lab Director: Luis M Coker MD#### EDTOX ####[address] [address] Lab Director: Luis M Coker [address] [address] Lab Director: Parvez Norton MD#### LIP, CP, TROPI, LACTIC, CBCWD ####[address] [address] Lab Director: Parvez Norton MD Tox Scr, Bld, EDon 4 Toxic Tricyclic Sc,Bl Negative Normal NEG [facility] Comment on above: Result Comment: Cuto ff: 300 ng/ml Performed By: #### P ROL ####[address] [place] [address] Lab Director: Luis M Coker MD#### EDTOX ####[address] [address] Lab Director: Luis M Coker [address] [address] Lab Director: Parvez Norton MD#### LIP, CP, TROPI, LACTIC, CBCWD ####[address] [address] Lab Director: Parvez Norton MD Acetaminophen [Mass/Vol] ug/mL Low 10.0-30.0 [facility] Comment on above: Performed By: #### P ROL ####[address] [address] Lab Director: Luis M Coker MD#### EDTOX ####[address] [address] Lab Director: Luis M Coker [address] [address])[phone] Director: Parvez Norton MD#### LIP, CP, TROPI, LACTIC, CBCWD ####[address] [phone] Director: Parvez Norton MD Salicylate <0.3 Normal 0.0-30.0 [facility] Comment on above: Performed By: #### P ROL ####[address] [address] Lab Director: Luis M Coker MD#### EDTOX ####[address] [address] Lab Director: Luis M Coker [address] [address])[phone] Director: Parvez Norton MD#### LIP, CP, TROPI, LACTIC, CBCWD ####[address] [place], [place] [phone] Director: Parvez Norton MD Ethanol [Mass/Vol] 223 mg/dL High <10 [facility] Comment on above: Performed By: #### P ROL ####[address] [place] [phone] Director: Luis M Coker MD#### EDTOX ####[address] [address] Lab Director: Luis M Coker[address] [phone] Director: Parvez Norton MD#### LIP, CP, TROPI, LACTIC, CBCWD ####[address] [phone] Director: Parvez Norton MD Troponinon 05-23-2023 Troponin, High Sens 9 ng/L Normal 0-11 [facility] Comment on above: Result Comment: High Sensitivity Troponin values cannot be compared with other Troponin methodologies. Patients with high levels of Biotin oral intake (i.e >5mg/day) may have falsely decreased Troponin levels. Samples collected within 8 hours of biotin intake may require additional information for diagnosis. Performed By: #### P ROL ####[address] [place] [phone] Director: Luis M Coker MD#### EDTOX ####[address] [phone] Director: Luis M Coker [address] [address] Lab Director: Parvez Norton MD#### LIP, CP, TROPI, LACTIC, CBCWD ####[address] [phone] Director: Parvez Norton MD Urinalysis w/ Microon 2023 Urine RBC's 0 TO [address] [facility] Comment on above: Performed By: #### C BCWD, CP, TROPI, ALCB #### [address] [address] Cavalry Officer: Parvez Norton MD Urine WBC's 0 TO [address] [facility] Comment on above: Performed By: #### C BCWD, CP, TROPI, ALCB #### [address] [address] Cavalry Officer: Parvez Norton MD Bilirubin, SemiQt,Ur Negative Normal NEG [facility] Comment on above: Performed By: #### C BCWD, CP, TROPI, ALCB #### [address] [address] Cavalry Officer: Parvez Norton MD Blood, Urine Negative Normal NEG [facility] Comment on above: Performed By: #### C BCWD, CP, TROPI, ALCB #### [address] [address] Cavalry Officer: Parvez Norton MD Clarity (U) Clear Normal CLEAR [facility] Comment on above: Performed By: #### C BCWD, CP, TROPI, ALCB #### [address] [address] Cavalry Officer: Parvez Norton MD Color (U) Yellow Normal YEL [facility] Comment on above: Performed By: #### C BCWD, CP, TROPI, ALCB #### [address] [address] Cavalry Officer: Parvez Norton MD Glucose Ql (U) Negative Normal NEG [facility] Comment on above: Performed By: #### C BCWD, CP, TROPI, ALCB #### [address] [address] Cavalry Officer: Parvez Norton MD Ketones Ql (U) Negative Normal NEG [facility] Comment on above: Performed By: #### C BCWD, CP, TROPI, ALCB #### [address] [address] Cavalry Officer: Parvez Norton MD Leukocyte esterase Test strip Ql (U) Negative Normal NEG [facility] Comment on above: Performed By: #### C BCWD, CP, TROPI, ALCB #### [address] [address] Cavalry Officer: Parvez Norton MD Nitrite,Ur Negative Normal NEG [facility] Comment on above: Performed By: #### C BCWD, CP, TROPI, ALCB #### [address] [phone] Cavalry Officer: Parvez Norton MD PH,Ur 5.5 Normal 5.0-9.0 [facility] Comment on above: Performed By: #### C BCWD, CP, TROPI, ALCB #### [address] [address] Cavalry Officer: Parvez Norton MD Protein Ql (U) Negative Normal NEG [facility] Comment on above: Performed By: #### C BCWD, CP, TROPI, ALCB #### [address] [phone] Cavalry Officer: Parvez Norton MD Spec. [place],Ur 1.010 Normal 1.005-1.030 [facility] Comment on above: Performed By: #### C BCWD, CP, TROPI, ALCB #### [address] [address] Cavalry Officer: Parvez Norton MD Urobilinogen,Ur 0.2 EU/dL Normal 0.0-1.0 [facility] Comment on above: Performed By: #### C BCWD, CP, TROPI, ALCB #### [address] [address] Cavalry Officer: Parvez Norton MD XR CHEST PORTABLEon 05-23-19 24 XR CHEST PORTABLE EXAMINATION: ONE XRAY VIEW OF THE CHEST 05/23/2023 12:41 am COMPARISON: Chest series from May 07, 2023 HISTORY: ORDERING SYSTEM PROVIDED HISTORY: etoh abuse, brought in by EMS TECHNOLOGIST PROVIDED HISTORY: Reason for exam:->etoh abuse, brought in by EMS FINDINGS: Adequate and symmetric aeration of the lungs. Slight elevation of the right hemidiaphragm. There are no formed consolidations, pleural effusions, or pneumothoraces. Trachea and central mainstem bronchi appear clear. The cardiomediastinal silhouette and pulmonary vascularity appear within normal limits. Osseous and thoracic soft tissue structures demonstrate no acute findings. IMPRESSION: Slight elevation of the right hemidiaphragm. No acute cardiopulmonary pathology seen. Interpreted by: aNny Gaviria DO Signed by: Nany Gaviria DO 05/23/[address] [facility] Comment on above: Order Comment: Reaso n for exam:->etoh abuse, brought in by EMS CBC with Diffon 05-17-2023 Abs. Basophil 0.02 k/uL Normal 0.00-0.20 [facility] Comment on above: Performed By: #### C NICHELLE GARCÍA #### [address] [address] Cavalry Officer: Parvez Norton MD #### EDTOX #### [facility] [address] [place] [address] Cavalry Officer: Luis M Coker MD [address] [address] Cavalry Officer: Parvez Norton MD Abs.Imm.Granulocyte <0.03 Normal 0.00-0.58 [facility] Comment on above: Performed By: #### C RAQUEL CP #### [address] [phone] Cavalry Officer: Parvez Norton MD #### EDTOX #### [address] [address] Cavalry Officer: Luis M Coker MD [address] [address] Cavalry Officer: Parvez Norton MD Abs.Neutrophil (Seg) 3.22 k/uL Normal 1.80-7.30 [facility] Comment on above: Performed By: #### C RAQUEL, CP #### [address] [address] Cavalry Officer: Parvez Norton MD #### EDTOX #### [place] [address] Cavalry Officer: Luis M Coker MD [address] [address] Cavalry Officer: Parvez Norton MD Basophils/100 WBC (Bld) 0 % Normal 0.0-2.0 [facility] Comment on above: Performed By: #### Tigre GARCÍA CP #### [address] [address] Cavalry Officer: Parvez Norton MD #### EDTOX #### [place] [address] Cavalry Officer: Luis M Coker MD [address] [address] Cavalry Officer: Parvez Norton MD Eosinophils (Bld) [#/Vol] 0.07 10*3/uL Normal 0.05-0.50 [facility] Comment on above: Performed By: #### Tigre GARCÍA, CP #### [address] [address] Cavalry Officer: Parvez Norton MD #### EDTOX #### [place] [address] Cavalry Officer: Luis M Coker MD [address] [address] Cavalry Officer: Parvez Norton MD Eosinophils/100 WBC (Bld) 1 % Normal 0-6 [facility] Comment on above: Performed By: #### Tigre GARCÍA, CP #### [address] [address] Cavalry Officer: Parvez Norton MD #### EDTOX #### [address] [address] Cavalry Officer: Luis M Coker MD [address] [address] Cavalry Officer: Parvez Norton MD Erythrocyte distribution width (RBC) [Ratio] 14.1 % Normal 11.5-15.0 [facility] Comment on above: Performed By: #### Tigre GARCÍA CP #### [address] [address] Cavalry Officer: Parvez Norton MD #### EDTOX #### [address] [phone] Cavalry Officer: Luis M Coker MD [address] [address] Cavalry Officer: Parvez Norton MD Hematocrit (Bld) [Volume fraction] 41.6 % Normal 37.0-54.0 [facility] Comment on above: Performed By: #### Tigre GARCÍA, CP #### [address] [address] Cavalry Officer: Parvez Norton MD #### EDTOX #### [address] [address] Cavalry Officer: Luis M oCker MD [address] [address] Cavalry Officer: Pavrez Norton MD Hemoglobin (Bld) [Mass/Vol] 14.5 g/dL Normal 12.5-16.5 [facility] Comment on above: Performed By: #### Tigre GARCÍA, CP #### [address] [address] Cavalry Officer: Parvez Norton MD #### EDTOX #### [address] [address] Cavalry Officer: Luis M Coker MD [address] [address] Cavalry Officer: Parvez Norton MD Immature granulocytes/100 WBC (Bld) 0 % Normal 0.0-5.0 [facility] Comment on above: Performed By: #### Tigre GARCÍA CP #### [address] [address] Cavalry Officer: Parvez Norton MD #### EDTOX #### [address] [address] Cavalry Officer: Luis M Coker MD [address] [address] Cavalry Officer: Parvez Norton MD Lymphocytes (Bld) [#/Vol] 2.72 10*3/uL Normal 1.50-4.00 [facility] Comment on above: Performed By: #### Tigre GARCÍA CP #### [address] [address] Cavalry Officer: Parvez Norton MD #### EDTOX #### [address] [address] Cavalry Officer: Luis M Coker MD [address] [address] Cavalry Officer: Parvez Norton MD Lymphocytes/100 WBC (Bld) 41 % Normal 20.0-42.0 [facility] Comment on above: Performed By: #### C RAQUEL, CP #### [address] [address] Cavalry Officer: Parvez Norton MD #### EDTOX #### [address] [phone] Cavalry Officer: Luis M Coker MD [address] [address] Cavalry Officer: Parvez Norton MD MCH (RBC) [Entitic mass] 29.2 pg Normal 26.0-35.0 [facility] Comment on above: Performed By: #### Tigre GARCÍA, CP #### [address] [address] Cavalry Officer: Parvez Norton MD #### EDTOX #### [address] [phone] Cavalry Officer: Luis M Coker MD [address] [address] Cavalry Officer: Parvez Norton MD MCHC (RBC) [Mass/Vol] 34.9 g/dL High 32.0-34.5 [facility] Comment on above: Performed By: #### Tigre GARCÍA, CP #### [address] [address] Cavalry Officer: Parvez Norton MD #### EDTOX #### [address] [phone] Cavalry Officer: Luis M Coker MD [address] [address] Cavalry Officer: Parvez Norton MD MCV (RBC) [Entitic vol] 83.7 fL Normal 80.0-99.9 [facility] Comment on above: Performed By: #### C RAQUEL, CP #### [address] [address] Cavalry Officer: Parvez Norton MD #### EDTOX #### [address] [address] Cavalry Officer: Luis M Coker MD [address] [address] Cavalry Officer: Parvez Norton MD Monocytes (Bld) [#/Vol] 0.66 10*3/uL Normal 0.10-0.95 [facility] Comment on above: Performed By: #### Tigre GARCÍA, CP #### [address] [address] Cavalry Officer: Parvez Norton MD #### EDTOX #### [address] [address] Cavalry Officer: Luis M Coker MD [address] [address] Cavalry Officer: Pavrez Norton MD Monocytes/100 WBC (Bld) 10 % Normal 2.0-12.0 [facility] Comment on above: Performed By: #### Tigre GARCÍA, CP #### [address] [address] Cavalry Officer: Parvez Norton MD #### EDTOX #### [address] [address] Cavalry Officer: Luis M Coker MD [address] [address] Cavalry Officer: Parvez Norton MD Neutrophil (Seg) 48 % Normal 43.0-80.0 [facility] Comment on above: Performed By: #### Tigre GARCÍA, CP #### [address] [address] Cavalry Officer: Parvez Norton MD #### EDTOX #### [address] [address] Cavalry Officer: Luis M Coker MD [address] [address] Cavalry Officer: Parvez Norton MD Platelet mean volume (Bld) [Entitic vol] 8.5 fL Normal 7.0-12.0 [facility] Comment on above: Performed By: #### Tigre GARCÍA, CP #### [address] [address] Cavalry Officer: Parvez Norton MD #### EDTOX #### [address] [address] Cavalry Officer: Luis M Coker MD [address] [address] Cavalry Officer: Parvez Norton MD Platelets (Bld) [#/Vol] 230 10*3/uL Normal 130-450 [facility] Comment on above: Performed By: #### Tigre GARCÍA, CP #### [address] [address] Cavalry Officer: Parvez Norton MD #### EDTOX #### [address] [address] Cavalry Officer: Luis M Coker MD [address] [address] Cavalry Officer: Parvez Norton MD RBC (Bld) [#/Vol] 4.97 10*6/uL Normal 3.80-5.80 [facility] Comment on above: Performed By: #### C RAQUEL, CP #### [address] [address] Cavalry Officer: Parvez Norton MD #### EDTOX #### [address] [address] Cavalry Officer: Luis M Coker MD [address] [address] Cavalry Officer: Parvez Norton MD WBC (Bld) [#/Vol] 6.7 10*3/uL Normal 4.5-11.5 [facility] Comment on above: Performed By: #### Tigre GARCÍA, CP #### [address] [address] Cavalry Officer: Parvez Norton MD #### EDTOX #### [address] [address] Cavalry Officer: Luis M Coker MD [address] [address] Cavalry Officer: Parvez Norton MD Comp Metabolic Profon 2023 Albumin [Mass/Vol] 4.3 g/dL Normal 3.5-5.2 [facility] Comment on above: Performed By: #### C RAQUEL, CP #### [address] [address] Cavalry Officer: Parvez Norton MD #### EDTOX #### [address] [address] Cavalry Officer: Luis M Coker MD [address] [address] Cavalry Officer: Parvez Norton MD Alkaline Phos 104 U/L Normal 40-129 [facility] Comment on above: Performed By: #### Tigre GARCÍA, CP #### [address] [address] Cavalry Officer: Parvez Norton MD #### EDTOX #### [facility] [address] [place] [address] Cavalry Officer: Luis M Coker MD [address] [address] Cavalry Officer: Parvez Norton MD ALT [Catalytic activity/Vol] 37 U/L Normal 0-40 [facility] Comment on above: Performed By: #### Tigre GARCÍA, CP #### [address] [address] Cavalry Officer: Parvez Norton MD #### EDTOX #### [facility] [address] [place] [address] Cavalry Officer: Luis M Coker MD [address] [address] Cavalry Officer: Parvez Norton MD Anion gap [Moles/Vol] 10 mmol/L Normal 7-16 [facility] Comment on above: Performed By: #### Tigre GARCÍA, CP #### [address] [address] Cavalry Officer: Parvez Norton MD #### EDTOX #### [address] [address] Cavalry Officer: Luis M Coker MD [address] [address] Cavalry Officer: Parvez Norton MD AST [Catalytic activity/Vol] 22 U/L Normal 0-39 [facility] Comment on above: Performed By: #### C RAQUEL, CP #### [address] [address] Cavalry Officer: Parvez Norton MD #### EDTOX #### [address] [address] Cavalry Officer: Luis M Coker MD [address] [address] Cavalry Officer: Parvez Norton MD Bilirubin [Mass/Vol] 0.4 mg/dL Normal 0.0-1.2 [facility] Comment on above: Performed By: #### C RAQUEL CP #### [address] [address] Cavalry Officer: Parvez Norton MD #### EDTOX #### [address] [address] Cavalry Officer: Luis M Coker MD [address] [address] Cavalry Officer: Parvez Norton MD Calcium [Mass/Vol] 8.4 mg/dL Low 8.6-10.2 [facility] Comment on above: Performed By: #### Tigre GARCÍA CP #### [address] [address] Cavalry Officer: Parvez Norton MD #### EDTOX #### [address] [address] Cavalry Officer: Luis M Coker MD [address] [address] Cavalry Officer: Parvez Norton MD Chloride [Moles/Vol] 111 mmol/L High 98-107 [facility] Comment on above: Performed By: #### Tigre GARCÍA, CP #### [address] [address] Cavalry Officer: Parvez Norton MD #### EDTOX #### [address] [address] Cavalry Officer: Luis M Coker MD [address] [address] Cavalry Officer: Parvez Norton MD CO2 [Moles/Vol] 23 mmol/L Normal 22-29 [facility] Comment on above: Performed By: #### C RAQUEL, CP #### [address] [address] Cavalry Officer: Parvez Norton MD #### EDTOX #### [address] [address] Cavalry Officer: Luis M Coker MD [address] [address] Cavalry Officer: Parvez Norton MD Creatinine [Mass/Vol] 1.3 mg/dL High 0.70-1.20 [facility] Comment on above: Performed By: #### C RAQUEL, CP #### [address] [address] Cavalry Officer: Parvez Norton MD #### EDTOX #### [address] [address] Cavalry Officer: Luis M Coker MD [address] [address] Cavalry Officer: Parvez Norton MD GFR/1.73 sq M.predicted among non-blacks MDRD (S/P/Bld) [Vol rate/Area] 73 mL/min/{1.73_m2} Normal >60 [facility] Comment on above: Result Comment: These results are not intended for use in patients <18 years of age. eGFR results are calculated without a race factor using the 2020 CKD-EPI equation. Careful clinical correlation is recommended, particularly when comparing to results calculated using previous equations. The CKD-EPI equation is less accurate in patients with extremes of muscle mass, extra-renal metabolism of creatine, excessive creatine ingestion, or following therapy that affects renal tubular secretion. Performed By: #### C RAQUEL, CP #### [address] [address] Cavalry Officer: Parvez Norton MD #### EDTOX #### [address] [address] Cavalry Officer: Luis M Coker MD [address] [address] Cavalry Officer: Parvez Norton MD Glucose [Mass/Vol] 96 mg/dL Normal 74-99 [facility] Comment on above: Performed By: #### Tigre GARCÍA CP #### [address] [address] Cavalry Officer: Parvez Norton MD #### EDTOX #### [address] [address] Cavalry Officer: Luis M Coker MD [address] [address] Cavalry Officer: Parvez Norton MD Potassium [Moles/Vol] 4.4 mmol/L Normal 3.5-5.0 [facility] Comment on above: Performed By: #### Tigre GARCÍA, CP #### [address] [address] Cavalry Officer: Parvez Norton MD #### EDTOX #### [address] [address] Cavalry Officer: Luis M Coker MD [address] [address] Cavalry Officer: Parvez Norton MD Protein [Mass/Vol] 7.1 g/dL Normal 6.4-8.3 [facility] Comment on above: Performed By: #### C RAQUEL, CP #### [address] [address] Cavalry Officer: Parvez Norton MD #### EDTOX #### [address] [address] Cavalry Officer: Luis M Coker MD [address] [address] Cavalry Officer: Parvez Norton MD Sodium [Moles/Vol] 144 mmol/L Normal 132-146 [facility] Comment on above: Performed By: #### Tigre GARCÍA, CP #### [address] [address] Cavalry Officer: Parvez Norton MD #### EDTOX #### [address] [address] Cavalry Officer: Luis M Coker MD [address] [address] Cavalry Officer: Parvez Norton MD Urea nitrogen [Mass/Vol] 10 mg/dL Normal 6-20 [facility] Comment on above: Performed By: #### Tigre GARCÍA, CP #### [address] [address] Cavalry Officer: Parvez Norton MD #### EDTOX #### [address] [address] Cavalry Officer: Luis M Coker MD [address] [address] Cavalry Officer: Parvez Norton MD Cult,Urineon 05-17-2023 Cult,Urine Specimen Description .URINE,STRAIGHT CATHETER Culture NO GROWTH Report Status FINAL 05/17/[address] [facility] Comment on above: Performed By: #### A MON #### [address] [address] [employer] Officer: Parvez Norton MD Ethanol Alcoholon 05-17-2023 Ethanol [Mass/Vol] 50 mg/dL High <10 [facility] Comment on above: Performed By: #### A LCB ####[address] [address] Lab Director: Parvez Norton MD Tox Scr, Bld, EDon 4 Toxic Tricyclic Sc,Bl Negative Normal NEG [facility] Comment on above: Result Comment: Cuto ff: 300 ng/ml Performed By: #### C RAQUEL, CP #### [address] [address] [employer] Officer: Parvez Norton MD #### EDTOX #### [address] [id number] [employer] Officer: Luis M Coker MD [address] [address] [employer] Officer: Parvez Norton MD Acetaminophen [Mass/Vol] ug/mL Low 10.0-30.0 [facility] Comment on above: Performed By: #### C RAQUEL, CP #### [address] [address] [employer] Officer: Parvez Norton MD #### EDTOX #### [address] [address] [employer] Officer: Luis M Coker MD [address] [address] Cav[employer] Officer: Parvez Norton MD Ethanol [Mass/Vol] 149 mg/dL High <10 [facility] Comment on above: Performed By: #### C RAQUEL CP #### [address] [address] [employer] Officer: Parvez Norton MD #### EDTOX #### [address] [address] [employer] Officer: Luis M Coker MD [address] [address] [employer] Officer: Parvez Norton MD Salicylate <0.3 Normal 0.0-30.0 [facility] Comment on above: Performed By: #### C NICHELLE GARCÍA #### [address] [address] [employer] Officer: Parvez Norton MD #### EDTOX #### [address] [address] [employer] Officer: Luis M Coker MD [address] [address] [employer] Officer: Parvez Norton MD Ammoniaon 05-16-2023 Ammonia (P) [Moles/Vol] 22 umol/L Normal 16.0-60.0 [facility] Comment on above: Performed By: #### A MON #### [address] [address] [employer] Officer: Parvez Norton MD Amylaseon 05-16-2023 Amylase [Catalytic activity/Vol] 56 U/L Normal 20-100 [facility] Comment on above: Performed By: #### C NICHELLE GARCÍA, TROPI, ALCB #### [address] [address] [employer] Officer: Parvez Norton MD Basic Metab w/rfx MGon 05-15 Anion gap [Moles/Vol] 11 mmol/L Normal 7-16 [facility] Comment on above: Performed By: #### C BCWD, CP, TROPI, ALCB #### [address] [address] [employer] Officer: Parvez Norton MD Calcium [Mass/Vol] 7.9 mg/dL Low 8.6-10.2 [facility] Comment on above: Performed By: #### C BCWD, CP, TROPI, ALCB #### [address] [address] [employer] Officer: Parvez Norton MD Chloride [Moles/Vol] 102 mmol/L Normal 98-107 [facility] Comment on above: Performed By: #### C BCWD, CP, TROPI, ALCB #### [address] [address] ( [employer] Officer: Parvez Norton MD CO2 [Moles/Vol] 20 mmol/L Low 22-29 [facility] Comment on above: Performed By: #### C RAQUEL, CP, TROPI, ALCB #### [address] [address] ( [employer] Officer: Parvez Norton MD Creatinine [Mass/Vol] 1.0 mg/dL Normal 0.70-1.20 [facility] Comment on above: Performed By: #### C BCWD, CP, TROPI, ALCB #### [address] [address] ( [employer] Officer: Parvez Norton MD GFR/1.73 sq M.predicted among non-blacks MDRD (S/P/Bld) [Vol rate/Area] mL/min/{1.73_m2} Normal >60 [facility] Comment on above: Result Comment: These results are not intended for use in patients <18 years of age. eGFR results are calculated without a race factor using the 2020 CKD-EPI equation. Careful clinical correlation is recommended, particularly when comparing to results calculated using previous equations. The CKD-EPI equation is less accurate in patients with extremes of muscle mass, extra-renal metabolism of creatine, excessive creatine ingestion, or following therapy that affects renal tubular secretion. Performed By: #### C NICHELLE GARCÍA, TROPI, ALCB #### [address] [address] [employer] Officer: Parvez Norton MD Glucose [Mass/Vol] 92 mg/dL Normal 74-99 [facility] Comment on above: Performed By: #### C RAQUEL, CP, TROPI, ALCB #### [address] [address] [employer] Officer: Parvez Norton MD Potassium [Moles/Vol] 3.4 mmol/L Low 3.5-5.0 [facility] Comment on above: Performed By: #### C RAQUEL CP, TROPI, ALCB #### [address] [address] [employer] Officer: Parvez Norton MD Sodium [Moles/Vol] 133 mmol/L Normal 132-146 [facility] Comment on above: Performed By: #### C RAQUEL, CP, TROPI, ALCB #### [address] [address] [employer] Officer: Parvez Norton MD Urea nitrogen [Mass/Vol] 14 mg/dL Normal 6-20 [facility] Comment on above: Performed By: #### C RAQUEL, CP, TROPI, ALCB #### [address] [address] [employer] Officer: Parvez Norton MD CBC with Diffon 05-16-2023 Abs. Basophil 0.02 k/uL Normal 0.00-0.20 [facility] Comment on above: Performed By: #### C RAQUEL, CP, TROPI, ALCB #### [address] [address] [employer] Officer: Parvez Norton MD Abs.Imm.Granulocyte <0.03 Normal 0.00-0.58 [facility] Comment on above: Performed By: #### C BCWD, CP, TROPI, ALCB #### [address] [address] [employer] Officer: Parvez Norton MD Abs.Neutrophil (Seg) 3.76 k/uL Normal 1.80-7.30 [facility] Comment on above: Performed By: #### C BCWD, CP, TROPI, ALCB #### [address] [address] [employer] Officer: Parvez Norton MD Basophils/100 WBC (Bld) 0 % Normal 0.0-2.0 [facility] Comment on above: Performed By: #### C BCWD, CP, TROPI, ALCB #### [address] [address] [employer] Officer: Parvez Norton MD Eosinophils (Bld) [#/Vol] 0.22 10*3/uL Normal 0.05-0.50 [facility] Comment on above: Performed By: #### C BCWD, CP, TROPI, ALCB #### [address] [address] [employer] Officer: Parvez Norton MD Eosinophils/100 WBC (Bld) 3 % Normal 0-6 [facility] Comment on above: Performed By: #### C BCWD, CP, TROPI, ALCB #### [address] [address] [employer] Officer: Parvez Norton MD Erythrocyte distribution width (RBC) [Ratio] 13.9 % Normal 11.5-15.0 [facility] Comment on above: Performed By: #### C BCWD, CP, TROPI, ALCB #### [address] [address] [employer] Officer: Parvez Norton MD Hematocrit (Bld) [Volume fraction] 38.7 % Normal 37.0-54.0 [facility] Comment on above: Performed By: #### C BCWD, CP, TROPI, ALCB #### [address] [address] [employer] Officer: Parvez Norton MD Hemoglobin (Bld) [Mass/Vol] 14.0 g/dL Normal 12.5-16.5 [facility] Comment on above: Performed By: #### C BCWD, CP, TROPI, ALCB #### [address] [address] ( [employer] Officer: Parvez Norton MD Immature granulocytes/100 WBC (Bld) 0 % Normal 0.0-5.0 [facility] Comment on above: Performed By: #### C BCWD, CP, TROPI, ALCB #### [address] [address] ( [employer] Officer: Parvez Norton MD Lymphocytes (Bld) [#/Vol] 2.69 10*3/uL Normal 1.50-4.00 [facility] Comment on above: Performed By: #### C BCWD, CP, TROPI, ALCB #### [address] [address] ( [employer] Officer: Parvez Norton MD Lymphocytes/100 WBC (Bld) 36 % Normal 20.0-42.0 [facility] Comment on above: Performed By: #### C BCWD, CP, TROPI, ALCB #### [address] [address] ( [employer] Officer: Parvez Norton MD MCH (RBC) [Entitic mass] 29.8 pg Normal 26.0-35.0 [facility] Comment on above: Performed By: #### C BCWD, CP, TROPI, ALCB #### [address] [address] ( [employer] Officer: Parvez Norton MD MCHC (RBC) [Mass/Vol] 36.2 g/dL High 32.0-34.5 [facility] Comment on above: Performed By: #### C BCWD, CP, TROPI, ALCB #### [address] [address] [employer] Officer: Parvez Norton MD MCV (RBC) [Entitic vol] 82.3 fL Normal 80.0-99.9 [facility] Comment on above: Performed By: #### C BCWD, CP, TROPI, ALCB #### [address] [address] [employer] Officer: Parvez Norton MD Monocytes (Bld) [#/Vol] 0.69 10*3/uL Normal 0.10-0.95 [facility] Comment on above: Performed By: #### C BCWD, CP, TROPI, ALCB #### [address] [address] ( [employer] Officer: Parvez Norton MD Monocytes/100 WBC (Bld) 9 % Normal 2.0-12.0 [facility] Comment on above: Performed By: #### C BCWD, CP, TROPI, ALCB #### [address] [address] ( [employer] Officer: Parvez Norton MD Neutrophil (Seg) 51 % Normal 43.0-80.0 [facility] Comment on above: Performed By: #### C BCWD, CP, TROPI, ALCB #### [address] [address] [employer] Officer: Parvez Norton MD Platelet mean volume (Bld) [Entitic vol] 8.6 fL Normal 7.0-12.0 [facility] Comment on above: Performed By: #### C BCWD, CP, TROPI, ALCB #### [facility] [address] [facility] [place] [address] [employer] Officer: Parvez Norton MD Platelets (Bld) [#/Vol] 219 10*3/uL Normal 130-450 [facility] Comment on above: Performed By: #### C BCWD, CP, TROPI, ALCB #### [facility] [address] [place] [address] [employer] Officer: Parvez Norton MD RBC (Bld) [#/Vol] 4.70 10*6/uL Normal 3.80-5.80 [facility] Comment on above: Performed By: #### C BCOSMAR, CP, TROPI, ALCB #### [facility] [address] [place] [address] [employer] Officer: Parvez Norton MD WBC (Bld) [#/Vol] 7.4 10*3/uL Normal 4.5-11.5 [facility] Comment on above: Performed By: #### C RAQUEL, CP, TROPI, ALCB #### [facility] [address] [place] [address] [employer] Officer: Parvez Norton MD ECHO (TTE) LIMITEDon 024 ECHO (TTE) LIMITED ?? Left??Ventricle ?? Right??Ventricle ?? Image quality is adequate. Left Ventricle The EF by visual approximation is 50 - 55%. Findings consistent with mild concentric hypertrophy. Right Ventricle Right ventricle is mildly dilated. Normal systolic function. Study Details Image quality Normal [facility] Comment on above: Order Comment: Crite sahil for performing Bubble Study include Lipaseon 05-16-2023 Lipase [Catalytic activity/Vol] 29 U/L Normal 13-60 [facility] Comment on above: Performed By: #### C BCWD, CP, TROPI, ALCB #### [facility] [address] [place] [address] [employer] Officer: Parvez Norton MD Liver Profileon 05-16-2023 Albumin [Mass/Vol] 3.6 g/dL Normal 3.5-5.2 [facility] Comment on above: Performed By: #### C BCWD, CP, TROPI, ALCB #### [address] [address] [employer] Officer: Parvez Norton MD Alkaline Phos 90 U/L Normal 40-129 [facility] Comment on above: Performed By: #### C BCWD, CP, TROPI, ALCB #### [address] [address] [employer] Officer: Parvez Norton MD ALT [Catalytic activity/Vol] 38 U/L Normal 0-40 [facility] Comment on above: Performed By: #### C BCWD, CP, TROPI, ALCB #### [address] [address] [employer] Officer: Parvez Norton MD AST [Catalytic activity/Vol] 16 U/L Normal 0-39 [facility] Comment on above: Performed By: #### C BCWD, CP, TROPI, ALCB #### [address] [address] [employer] Officer: Parvez Norton MD Bilirubin [Mass/Vol] 0.4 mg/dL Normal 0.0-1.2 [facility] Comment on above: Performed By: #### C BCWD, CP, TROPI, ALCB #### [address] [address] [employer] Officer: Parvez Norton MD Bilirubin, Indirect Can not be calculated Normal 0.0-[address] [facility] Comment on above: Performed By: #### C BCWD, CP, TROPI, ALCB #### [address] [address] [employer] Officer: Parvez Norton MD Bilirubin.indirect [Mass/Vol] mg/dL Normal 0.0-0.3 [facility] Comment on above: Performed By: #### C BCOSMAR, CP, TROPI, ALCB #### [address] [address] [employer] Officer: Parvez Norton MD Protein [Mass/Vol] 6.1 g/dL Low 6.4-8.3 [facility] Comment on above: Performed By: #### C RAQUEL, CP, TROPI, ALCB #### [address] [address] [employer] Officer: Parvez Norton MD Magnesiumon 05-16-2023 Magnesium [Mass/Vol] 1.8 mg/dL Normal 1.6-2.6 [facility] Comment on above: Performed By: #### C RAQUEL, CP, TROPI, ALCB #### [address] [address] [employer] Officer: Parvez Norton MD PTon 05-16-2023 INR Coag (PPP) [Relative time] 1.2 {INR} Normal [facility] Comment on above: Result Comment: Therapeutic Range: Moderate Anticoagulant Intensity: INR = 2.0-3.0 High Anticoagulant Intensity: INR = 2.5-3.5 Performed By: #### C RAQUEL, CP, TROPI, ALCB #### [address] [address] [employer] Officer: Parvez Norton MD PT Coag (PPP) [Time] 12.9 s High 9.3-12.4 [facility] Comment on above: Performed By: #### C RAQUEL, CP, TROPI, ALCB #### [address] [address] [employer] Officer: Parvez Norton MD Phosphorus, Inorg.on 024 Phosphorus, Inorg. 3.4 mg/dL Normal 2.5-4.5 [facility] Comment on above: Performed By: #### C BCWD, CP, TROPI, ALCB #### [address] [address] [employer] Officer: Parvez Norton MD Rule Out MRSAon 05-16-2023 Rule Out MRSA Specimen Description .NARES Culture NEGATIVE FOR: METHICILLIN RESISTANT STAPHYLOCOCCUS AUREUS Report Status FINAL 05/16/[address] [facility] Comment on above: Performed By: #### C RAQUEL CP #### [address] [address] [employer] Officer: Parvez Norton MD #### EDTOX #### [address] [address] [employer] Officer: Luis M Coker MD [address] [address] [employer] Officer: Parvez Norton MD Basic Metab w/rfx MGon 05-14 Anion gap [Moles/Vol] 14 mmol/L Normal 7-16 [facility] Comment on above: Performed By: #### Tigre GARCÍA CP #### [address] [address] [employer] Officer: Parvez Norton MD #### EDTOX #### [address] [address] Cav[employer] Officer: Luis M Coker MD [address] [address] Cavalry Officer: Parvez Norton MD Calcium [Mass/Vol] 7.9 mg/dL Low 8.6-10.2 [facility] Comment on above: Performed By: #### C RAQUEL CP #### [address] [address] [employer] Officer: Parvez Norton MD #### EDTOX #### [address] [address] Cav[employer] Officer: Luis M Coker MD [address] [address] Cavalry Officer: Parvez Norton MD Chloride [Moles/Vol] 106 mmol/L Normal 98-107 [facility] Comment on above: Performed By: #### Tigre GARCÍA CP #### [address] [address] Cav[employer] Officer: Parvez Norton MD #### EDTOX #### [address] [address] Cav[employer] Officer: Luis M Coker MD [address] [address] Cav[employer] Officer: Parvez Norton MD CO2 [Moles/Vol] 17 mmol/L Low 22-29 [facility] Comment on above: Performed By: #### Tigre GARCÍA CP #### [address] [address] [employer] Officer: Parvez Norton MD #### EDTOX #### [address] [address] Cav[employer] Officer: Luis M Coker MD [address] [address] Cav[employer] Officer: Parvez Norton MD Creatinine [Mass/Vol] 0.9 mg/dL Normal 0.70-1.20 [facility] Comment on above: Performed By: #### Tigre GARCÍA CP #### [address] [address] Cav[employer] Officer: Parvez Norton MD #### EDTOX #### [address] [address] Cav[employer] Officer: Luis M Coker MD [address] [address] [employer] Officer: Parvez Norton MD GFR/1.73 sq M.predicted among non-blacks MDRD (S/P/Bld) [Vol rate/Area] mL/min/{1.73_m2} Normal >60 [facility] Comment on above: Result Comment: These results are not intended for use in patients <18 years of age. eGFR results are calculated without a race factor using the 2020 CKD-EPI equation. Careful clinical correlation is recommended, particularly when comparing to results calculated using previous equations. The CKD-EPI equation is less accurate in patients with extremes of muscle mass, extra-renal metabolism of creatine, excessive creatine ingestion, or following therapy that affects renal tubular secretion. Performed By: #### C RAQUEL, CP #### [address] [address] [employer] Officer: Parvez Norton MD #### EDTOX #### [address] [address] Cav[employer] Officer: Luis M Coker MD [address] [address] Cav[employer] Officer: Parvez Norton MD Glucose [Mass/Vol] 145 mg/dL High 74-99 [facility] Comment on above: Performed By: #### Tigre GARCÍA CP #### [address] [address] [employer] Officer: Parvez Norton MD #### EDTOX #### [address] [address] [employer] Officer: Luis M Coker MD [address] [address] Cav[employer] Officer: Parvez Norton MD Potassium [Moles/Vol] 4.4 mmol/L Normal 3.5-5.0 [facility] Comment on above: Performed By: #### C RAQUEL, CP #### [address] [address] [employer] Officer: Parvez Norton MD #### EDTOX #### [address] [address] Cav[employer] Officer: Luis M Coker MD [address] [address] Cav[employer] Officer: Parvez Norton MD Sodium [Moles/Vol] 137 mmol/L Normal 132-146 [facility] Comment on above: Performed By: #### C RAQUEL, CP #### [address] [address] [employer] Officer: Parvez Norton MD #### EDTOX #### [address] [address] Cav[employer] Officer: Luis M Coker MD [address] [address] Cav[employer] Officer: Parvez Norton MD Urea nitrogen [Mass/Vol] 15 mg/dL Normal 6-20 [facility] Comment on above: Performed By: #### Tigre GARCÍA CP #### [address] [address] [employer] Officer: Parvez Norton MD #### EDTOX #### [address] [address] Cav[employer] Officer: Luis M Coekr MD [address] [address] Cav[employer] Officer: Parvez Norton MD Basic Metabolic Profon 05-14 Anion gap [Moles/Vol] 13 mmol/L Normal 7-16 [facility] Comment on above: Performed By: #### C RAQUEL, CP, TROPI, ALCB #### [address] [place] [address] [employer] Officer: Parvez Norton MD Calcium [Mass/Vol] 8.6 mg/dL Normal 8.6-10.2 [facility] Comment on above: Performed By: #### C BCWD, CP, TROPI, ALCB #### [address] [address] [employer] Officer: Parvez Norton MD Chloride [Moles/Vol] 108 mmol/L High 98-107 [facility] Comment on above: Performed By: #### C BCOSMAR, CP, TROPI, ALCB #### [address] [address] ( Cav[employer] Officer: Parvez Norton MD CO2 [Moles/Vol] 21 mmol/L Low 22-29 [facility] Comment on above: Performed By: #### C BCOSMAR, CP, TROPI, ALCB #### [address] [address] [employer] Officer: Parvez Norton MD Creatinine [Mass/Vol] 1.2 mg/dL Normal 0.70-1.20 [facility] Comment on above: Performed By: #### C BCWD, CP, TROPI, ALCB #### [address] [address] ( [employer] Officer: Parvez Norton MD GFR/1.73 sq M.predicted among non-blacks MDRD (S/P/Bld) [Vol rate/Area] 80 mL/min/{1.73_m2} Normal >60 [facility] Comment on above: Result Comment: These results are not intended for use in patients <18 years of age. eGFR results are calculated without a race factor using the 2020 CKD-EPI equation. Careful clinical correlation is recommended, particularly when comparing to results calculated using previous equations. The CKD-EPI equation is less accurate in patients with extremes of muscle mass, extra-renal metabolism of creatine, excessive creatine ingestion, or following therapy that affects renal tubular secretion. Performed By: #### C BCWD, CP, TROPI, ALCB #### [address] [address] [employer] Officer: Parvez Norton MD Glucose [Mass/Vol] 86 mg/dL Normal 74-99 [facility] Comment on above: Performed By: #### C BCOSMAR, CP, TROPI, ALCB #### [address] [address] [employer] Officer: Parvez Norton MD Potassium [Moles/Vol] 4.0 mmol/L Normal 3.5-5.0 [facility] Comment on above: Performed By: #### C RAQUEL, CP, TROPI, ALCB #### [address] [address] [employer] Officer: Parvez Norton MD Sodium [Moles/Vol] 142 mmol/L Normal 132-146 [facility] Comment on above: Performed By: #### C RAQUEL, CP, TROPI, ALCB #### [address] [address] [employer] Officer: Parvez Norton MD Urea nitrogen [Mass/Vol] 15 mg/dL Normal 6-20 [facility] Comment on above: Performed By: #### C RAQUEL, CP, TROPI, ALCB #### [address] [address] [employer] Officer: Parvez Norton MD CBC with Diffon 05-15-2023 Abs. Basophil 0.04 k/uL Normal 0.00-0.20 [facility] Comment on above: Performed By: #### C BCOSMAR, CP, TROPI, ALCB #### [address] [address] [employer] Officer: Parvez Norton MD Abs.Imm.Granulocyte 0.04 k/uL Normal 0.00-0.58 [facility] Comment on above: Performed By: #### C BCWD, CP, TROPI, ALCB #### [address] [address] [employer] Officer: Parvez Norton MD Abs.Neutrophil (Seg) 3.49 k/uL Normal 1.80-7.30 [facility] Comment on above: Performed By: #### C BCWD, CP, TROPI, ALCB #### [address] [address] [employer] Officer: Parvez Norton MD Basophils/100 WBC (Bld) 1 % Normal 0.0-2.0 [facility] Comment on above: Performed By: #### C BCWD, CP, TROPI, ALCB #### [address] [address] ( [employer] Officer: Parvez Norton MD Eosinophils (Bld) [#/Vol] 0.21 10*3/uL Normal 0.05-0.50 [facility] Comment on above: Performed By: #### C BCWD, CP, TROPI, ALCB #### [address] [address] [employer] Officer: Parvez Norton MD Eosinophils/100 WBC (Bld) 3 % Normal 0-6 [facility] Comment on above: Performed By: #### C BCWD, CP, TROPI, ALCB #### [address] [address] [employer] Officer: Parvez Norton MD Erythrocyte distribution width (RBC) [Ratio] 14.2 % Normal 11.5-15.0 [facility] Comment on above: Performed By: #### C BCWD, CP, TROPI, ALCB #### [address] [address] ( [employer] Officer: Parvez Norton MD Hematocrit (Bld) [Volume fraction] 45.4 % Normal 37.0-54.0 [facility] Comment on above: Performed By: #### C BCWD, CP, TROPI, ALCB #### [address] [address] ( [employer] Officer: Parvez Norton MD Hemoglobin (Bld) [Mass/Vol] 16.1 g/dL Normal 12.5-16.5 [facility] Comment on above: Performed By: #### C BCWD, CP, TROPI, ALCB #### [address] [address] [employer] Officer: Parvez Norton MD Immature granulocytes/100 WBC (Bld) 1 % Normal 0.0-5.0 [facility] Comment on above: Performed By: #### C BCWD, CP, TROPI, ALCB #### [address] [address] ( [employer] Officer: Parvez Norton MD Lymphocytes (Bld) [#/Vol] 3.53 10*3/uL Normal 1.50-4.00 [facility] Comment on above: Performed By: #### C BCOSMAR, CP, TROPI, ALCB #### [address] [address] ( [employer] Officer: Parvez Norton MD Lymphocytes/100 WBC (Bld) 43 % High 20.0-42.0 [facility] Comment on above: Performed By: #### C BCWD, CP, TROPI, ALCB #### [address] [address] ( [employer] Officer: Parvez Norton MD MCH (RBC) [Entitic mass] 29.3 pg Normal 26.0-35.0 [facility] Comment on above: Performed By: #### C BCWD, CP, TROPI, ALCB #### [address] [address] ( [employer] Officer: Parvez Norton MD MCHC (RBC) [Mass/Vol] 35.5 g/dL High 32.0-34.5 [facility] Comment on above: Performed By: #### C RAQUEL, CP, TROPI, ALCB #### [address] [address] [employer] Officer: Parvez Norton MD MCV (RBC) [Entitic vol] 82.5 fL Normal 80.0-99.9 [facility] Comment on above: Performed By: #### C BCOSMAR, CP, TROPI, ALCB #### [address] [address] [employer] Officer: Parvez Norton MD Monocytes (Bld) [#/Vol] 0.87 10*3/uL Normal 0.10-0.95 [facility] Comment on above: Performed By: #### C RAQUEL, CP, TROPI, ALCB #### [address] [address] [employer] Officer: Parvez Norton MD Monocytes/100 WBC (Bld) 11 % Normal 2.0-12.0 [facility] Comment on above: Performed By: #### C RAQUEL, CP, TROPI, ALCB #### [address] [address] [employer] Officer: Parvez Norton MD Neutrophil (Seg) 43 % Normal 43.0-80.0 [facility] Comment on above: Performed By: #### C BRENDONWD, CP, TROPI, ALCB #### [address] [address] [employer] Officer: Parvez Norton MD Platelet mean volume (Bld) [Entitic vol] 8.7 fL Normal 7.0-12.0 [facility] Comment on above: Performed By: #### C RAQUEL, CP, TROPI, ALCB #### [address] [address] [employer] Officer: Parvez Norton MD Platelets (Bld) [#/Vol] 320 10*3/uL Normal 130-450 [facility] Comment on above: Performed By: #### C NICHELLE GARCÍA, TROPI, ALCB #### [facility] [address] [place] [address] [employer] Officer: Parvez Norton MD RBC (Bld) [#/Vol] 5.50 10*6/uL Normal 3.80-5.80 [facility] Comment on above: Performed By: #### C NICHELLE GARCÍA, TROPI, ALCB #### [facility] [address] [place] [address] [employer] Officer: Parvez Norton MD WBC (Bld) [#/Vol] 8.2 10*3/uL Normal 4.5-11.5 [facility] Comment on above: Performed By: #### C NICHELLE GARCÍA, TROPI, ALCB #### [facility] [address] [place] [address] [employer] Officer: Parvez Norton MD CT HEAD WO CONTRASTon 2023 CT HEAD WO CONTRAST EXAMINATION: CT OF THE HEAD WITHOUT CONTRAST 05/15/2023 6:07 am TECHNIQUE: CT of the head was performed without the administration of intravenous contrast. Automated exposure control, iterative reconstruction, and/or weight based adjustment of the mA/kV was utilized to reduce the radiation dose to as low as reasonably achievable. COMPARISON: None. HISTORY: ORDERING SYSTEM PROVIDED HISTORY: ETOH TECHNOLOGIST PROVIDED HISTORY: Reason for exam:->ETOH Has a code stroke or stroke alert been called?->No Decision Support Exception - unselect if not a suspected or confirmed emergency medical condition->Emergency Medical Condition (MA) FINDINGS: BRAIN: Ma-white differentiation is intact. CSF SPACES: No hydrocephalus. HEMORRHAGE: No acute intracranial hemorrhage is identified. MASS EFFECT: No midline shift. SINUS/MASTOIDS: Clear. SCALP: Grossly unremarkable. CALVARIUM: Intact. IMPRESSION: No acute intracranial abnormality. Interpreted by: Elfego Holland MD Signed by: Elfego Holland MD 05/15/[address] [facility] Comment on above: Order Comment: Reaso n for exam:->ETOHHas a code stroke or stroke alert been called?->NoDecision Support Exception - unselect if not a suspected or confirmed emergency medical condition->Emergency Medical Condition (MA) Drug Scr, Abuse, Uron 2023 Amphetamine(s),Ur Negative Normal NEG [facility] Comment on above: Result Comment: Cuto ff: 1000 ng/mL Performed By: #### C RAQUEL, CP #### [address] [address] Cavalry Officer: Parvez Norton MD #### EDTOX #### [address] [address] Cavalry Officer: Luis M Coker MD [address] [address] Cavalry Officer: Parvez Norton MD Barbiturate(s),Ur Positive Abnormal NEG [facility] Comment on above: Result Comment: Cuto ff: 200 ng/ml Performed By: #### C RAQUEL, CP #### [address] [address] Cavalry Officer: Parvez Norton MD #### EDTOX #### [address] [address] Cavalry Officer: Luis M Coker MD [address] [address] Cavalry Officer: Parvez Norton MD Benzodiazepine(s) Negative Normal NEG [facility] Comment on above: Result Comment: Cuto ff: 200 ng/ml Performed By: #### C RAQUEL, CP #### [address] [address] Cavalry Officer: Parvez Norton MD #### EDTOX #### [address] [place] [address] Cavalry Officer: Luis M Coker MD [address] [id number] Cavalry Officer: Parvez Norton MD Buprenorphrine, Ur Negative Normal NEG [facility] Comment on above: Result Comment: Cuto ff: 5 ng/ml Performed By: #### C RAQUEL, CP #### [address] [address] Cavalry Officer: Parvez Norton MD #### EDTOX #### [address] [address] Cavalry Officer: Luis M Coker MD [address] [address] Cavalry Officer: Parvez Norton MD Cannabinoid(s),Ur Negative Normal NEG [facility] Comment on above: Result Comment: Cuto ff: 50 ng/ml Performed By: #### C RAQUEL, CP #### [address] [address] Cavalry Officer: Parvez Norton MD #### EDTOX #### [address] [address] Cavalry Officer: Luis M Coker MD [address] [address] Cavalry Officer: Parvez Norton MD Cocaine Metabolite Negative Normal NEG [facility] Comment on above: Result Comment: Cuto ff: 300 ng/ml Performed By: #### C RAQUEL, CP #### [address] [address] Cavalry Officer: Parvez Norton MD #### EDTOX #### [address] [address] Cavalry Officer: Luis M Coker MD [address] [address] Cavalry Officer: Parvez Norton MD Fentanyl, Urine Negative Normal NEG [facility] Comment on above: Result Comment: Cuto ff: 1.0 ng/ml Performed By: #### C RAQUEL, CP #### [address] [address] Cavalry Officer: Parvez Norton MD #### EDTOX #### [address] [address] Cavalry Officer: Luis M Ckoer MD [address] [address] Cavalry Officer: Parvez Norton MD Interpretive Info These drug screen results are for medical purposes only and should not be Normal [facility] Comment on above: Result Comment: cons idered definitive or confirmed. The drug methodology concentration value must be greater than or equal to the cutoff to be reported as positive. Confirmtory testing orders and/or interpretive sceening questions can be directed to toxicology at [phone]. The absence of expected drug(s) and/or metabolite(s) may be due to inappropriate timing of specimen collection relative to drug administration, poor drug absorption, diluted/adulterated urine, or limitations of screening methodology. Performed By: #### C RAQUEL, CP #### [address] [address] Cavalry Officer: Parvez Norton MD #### EDTOX #### [address] [place] [address] Cavalry Officer: Luis M Coker MD [address] [address] Cavalry Officer: Parvez Norton MD Methadone Ql (U) Negative Normal NEG [facility] Comment on above: Result Comment: Cuto ff: 300 ng/ml Performed By: #### C RAQUEL, CP #### [address] [address] Cavalry Officer: Parvez Norton MD #### EDTOX #### [address] [address] Cavalry Officer: Luis M Coker MD [address] [address] Cavalry Officer: Parvez Norton MD Opiate(s), Ur Negative Normal NEG [facility] Comment on above: Result Comment: Cuto ff: 300 ng/ml Note: The Opiate screen is not intended to detect Oxycodone. Performed By: #### C RAQUEL, CP #### [address] [address] Cavalry Officer: Parvez Norton MD #### EDTOX #### [address] [address] Cavalry Officer: Luis M Coker MD [address] [address] Cavalry Officer: Parvez Norton MD Oxycodone, Urine Negative Normal NEG [facility] Comment on above: Result Comment: Cuto ff: 100 ng/ml Performed By: #### Tigre GARCÍA, CP #### [address] [address] Cavalry Officer: Parvez Norton MD #### EDTOX #### [address] [address] Cavalry Officer: Luis M Coker MD [address] [address] Cavalry Officer: Parvez Norton MD Phencyclidine, Ur Negative Normal NEG [facility] Comment on above: Result Comment: Cuto ff: 25 ng/ml Performed By: #### C RAQUEL, CP #### [address] [address] Cavalry Officer: Parvez Norton MD #### EDTOX #### [address] [address] Cavalry Officer: Luis M Coker MD [address] [address] Cavalry Officer: Parvez Norton MD Lactic Acidon Lactate [Moles/Vol] 1.5 mmol/L Normal 0.5-2.2 [facility] Comment on above: Performed By: #### C RAQUEL, CP #### [address] [address] Cavalry Officer: Parvez Norton MD #### EDTOX #### [address] [address] Cavalry Officer: Luis M Coker MD [address] [address] Cavalry Officer: Parvez Norton MD Lipaseon 05-15-2023 Lipase [Catalytic activity/Vol] 39 U/L Normal 13-60 [facility] Comment on above: Performed By: #### L IP ####[address] [address]([facility])[phone] Director: Parvez Norton MD Liver Profileon 05-15-2023 Albumin [Mass/Vol] 4.5 g/dL Normal 3.5-5.2 [facility] Comment on above: Performed By: #### C NICHELLE GARCÍA, TROPI, ALCB #### [address] [address] Cavalry Officer: Parvez Norton MD Alkaline Phos 121 U/L Normal 40-129 [facility] Comment on above: Performed By: #### C BCOSMAR, CP, TROPI, ALCB #### [address] [id number] Cavalry Officer: Parvez Norton MD ALT [Catalytic activity/Vol] 70 U/L High 0-40 [facility] Comment on above: Performed By: #### C BCWD, CP, TROPI, ALCB #### [address] [id number] Cavalry Officer: Parvez Norton MD AST [Catalytic activity/Vol] 36 U/L Normal 0-39 [facility] Comment on above: Result Comment: SPEC IMEN SLIGHTLY HEMOLYZED, RESULTS MAY BE ADVERSELY AFFECTED. Performed By: #### C BCWD, CP, TROPI, ALCB #### [address] [id number] Cavalry Officer: Parvez Norton MD Bilirubin [Mass/Vol] 0.2 mg/dL Normal 0.0-1.2 [facility] Comment on above: Performed By: #### C BCWD, CP, TROPI, ALCB #### [address] [address] Cavalry Officer: Parvez Norton MD Bilirubin, Indirect Can not be calculated Normal 0.0-[address] [facility] Comment on above: Performed By: #### C BCWD, CP, TROPI, ALCB #### [address] [id number] Cavalry Officer: Parvez Norton MD Bilirubin.indirect [Mass/Vol] mg/dL Normal 0.0-0.3 [facility] Comment on above: Performed By: #### C BCWD, CP, TROPI, ALCB #### [address] [address] Cavalry Officer: Parvez Norton MD Protein [Mass/Vol] 7.8 g/dL Normal 6.4-8.3 [facility] Comment on above: Performed By: #### C NICHELLE GARCÍA, TROPI, ALCB #### [address] [place] [address] Cavalry Officer: Parvez Norton MD Magnesiumon 05-15-2023 Magnesium [Mass/Vol] 1.9 mg/dL Normal 1.6-2.6 [facility] Comment on above: Performed By: #### C RAQUEL CP #### [address] [address] Cavalry Officer: Parvez Norton MD #### EDTOX #### [facility] [address] [place] [address] Cavalry Officer: Luis M Coker MD [address] [address] Cavalry Officer: Parvez Norton MD PTon 05-15-2023 INR Coag (PPP) [Relative time] 1.0 {INR} Normal [facility] Comment on above: Result Comment: Therapeutic Range: Moderate Anticoagulant Intensity: INR = 2.0-3.0 High Anticoagulant Intensity: INR = 2.5-3.5 Performed By: #### C NICHELLE GARCÍA, TROPI, ALCB #### [address] [place] [address] Cavalry Officer: Parvez Norton MD PT Coag (PPP) [Time] 11.6 s Normal 9.3-12.4 [facility] Comment on above: Performed By: #### C NICHELLE GARCÍA, TROPI, ALCB #### [address] [address] Cavalry Officer: Parvez Norton MD Phosphorus, Inorg.on 024 Phosphorus, Inorg. 3.6 mg/dL Normal 2.5-4.5 [facility] Comment on above: Performed By: #### C RAQUEL CP #### [address] [address] Cavalry Officer: Parvez Norton MD #### EDTOX #### [facility] [address] [facility] [place], [place] [id number] Cav[employer] Officer: Luis M Coker MD [address] [address] Cavalry Officer: Parvez Norton MD Phosphorus, Inorg. 2.3 mg/dL Low 2.5-4.5 [facility] Comment on above: Performed By: #### C BCWD, CP, TROPI, ALCB #### [address] [address] Cavalry Officer: Parvez Norton MD Phosphorus, Inorg. 3.4 mg/dL Normal 2.5-4.5 [facility] Comment on above: Performed By: #### C BCWD, CP #### [address] [address] Cavalry Officer: Parvez Norton MD #### EDTOX #### [facility] [address] [place] [address] Cavalry Officer: Luis M Coker MD [address] [address] Cavalry Officer: Parvez Norton MD Tox Scr, Bld, EDon 4 Toxic Tricyclic Sc,Bl Negative Normal NEG [facility] Comment on above: Result Comment: Cuto ff: 300 ng/ml Performed By: #### C BCWD, CP, TROPI, ALCB #### [address] [address] Cavalry Officer: Parvez Norton MD Acetaminophen [Mass/Vol] ug/mL Low 10.0-30.0 [facility] Comment on above: Performed By: #### C BCWD, CP, TROPI, ALCB #### [address] [address] Cavalry Officer: Parvez Norton MD Ethanol [Mass/Vol] 248 mg/dL High <10 [facility] Comment on above: Performed By: #### C BCWD, CP, TROPI, ALCB #### [address] [id number] Cavalry Officer: Parvez Norton MD Salicylate <0.3 Normal 0.0-30.0 [facility] Comment on above: Performed By: #### C BCWD, CP, TROPI, ALCB #### [address] [address] Cavalry Officer: Parvez Norton MD Drug Scr, Abuse, Uron 2023 Amphetamine(s),Ur Negative Normal NEG [facility] Comment on above: Result Comment: Cuto ff: 1000 ng/mL Performed By: #### C BCWD, CP, TROPI, ALCB #### [address] [address] Cavalry Officer: Parvez Norton MD Barbiturate(s),Ur Negative Normal NEG [facility] Comment on above: Result Comment: Cuto ff: 200 ng/ml Performed By: #### C BCWD, CP, TROPI, ALCB #### [address] [address] Cavalry Officer: Parvez Norton MD Benzodiazepine(s) Negative Normal NEG [facility] Comment on above: Result Comment: Cuto ff: 200 ng/ml Performed By: #### C BCWD, CP, TROPI, ALCB #### [address] [address] Cavalry Officer: Parvez Norton MD Buprenorphrine, Ur Negative Normal NEG [facility] Comment on above: Result Comment: Cuto ff: 5 ng/ml Performed By: #### C BCWD, CP, TROPI, ALCB #### [facility] [address] [place] [address] Cavalry Officer: Parvez Norton MD Cannabinoid(s),Ur Negative Normal NEG [facility] Comment on above: Result Comment: Cuto ff: 50 ng/ml Performed By: #### C BCWD, CP, TROPI, ALCB #### [address] [address] Cavalry Officer: Parvez Norton MD Cocaine Metabolite Negative Normal NEG [facility] Comment on above: Result Comment: Cuto ff: 300 ng/ml Performed By: #### C BCWD, CP, TROPI, ALCB #### [address] [address] Cavalry Officer: Parvez Norton MD Fentanyl, Urine Negative Normal NEG [facility] Comment on above: Result Comment: Cuto ff: 1.0 ng/ml Performed By: #### C BCWD, CP, TROPI, ALCB #### [address] [address] Cavalry Officer: Parvez Norton MD Interpretive Info These drug screen results are for medical purposes only and should not be Normal [facility] Comment on above: Result Comment: cons idered definitive or confirmed. The drug methodology concentration value must be greater than or equal to the cutoff to be reported as positive. Confirmtory testing orders and/or interpretive sceening questions can be directed to toxicology at [phone]. The absence of expected drug(s) and/or metabolite(s) may be due to inappropriate timing of specimen collection relative to drug administration, poor drug absorption, diluted/adulterated urine, or limitations of screening methodology. Performed By: #### C BCWD, CP, TROPI, ALCB #### [address] [address] Cavalry Officer: Parvez Norton MD Methadone Ql (U) Negative Normal NEG [facility] Comment on above: Result Comment: Cuto ff: 300 ng/ml Performed By: #### C BCWD, CP, TROPI, ALCB #### [facility] [address] [place], [place] [id number] Cavalry Officer: Parvez Norton MD Opiate(s), Ur Negative Normal NEG [facility] Comment on above: Result Comment: Cuto ff: 300 ng/ml Note: The Opiate screen is not intended to detect Oxycodone. Performed By: #### C BCWD, CP, TROPI, ALCB #### [facility] [address] [place] [id number] Cavalry Officer: Parvez Norton MD Oxycodone, Urine Negative Normal NEG [facility] Comment on above: Result Comment: Cuto ff: 100 ng/ml Performed By: #### C BCWD, CP, TROPI, ALCB #### [address] [address] Cavalry Officer: Parvez Norton MD Phencyclidine, Ur Negative Normal NEG [facility] Comment on above: Result Comment: Cuto ff: 25 ng/ml Performed By: #### C BCWD, CP, TROPI, ALCB #### [facility] [address] [place] [address] Cavalry Officer: Parvez Norton MD Ethanolon 05-09-2023 Ethanolamine [Mass/Vol] 63 mg/dL High NINF - 10 mg/dL [facility] Interpretation and review of laboratory results Abnormal [facility] Ethanolamine [Mass/Vol] 130 mg/dL High NINF - 10 mg/dL [facility] Interpretation and review of laboratory results Abnormal [facility] Ethanol Alcoholon 05-09-2023 Ethanol [Mass/Vol] 63 mg/dL High <10 [facility] Comment on above: Performed By: #### C BCWD, CP #### [facility] [address] [place] [address] Cavalry Officer: Parvez Norton MD #### EDTOX #### [facility] [address] [place], [place] [phone] Cavalry Officer: Luis M Coker MD [address] [address] Cavalry Officer: Parvez Norton MD Ethanol [Mass/Vol] 130 mg/dL High <10 [facility] Comment on above: Performed By: #### C BCWD, CP, TROPI, ALCB #### [address] [address] Cavalry Officer: Parvez Norton MD URINE DRUG SCREENon 05-09-19 24 Amphetamines Ql (U) Negative NEGATIVE [facility] Comment on above: Cutoff: 1000 ng/mL Barbiturates Screen Ql (U) Negative NEGATIVE [facility] Comment on above: Cutoff: 200 ng/ml Benzodiazepines Ql (U) Negative NEGATIVE [facility] Comment on above: Cutoff: 200 ng/ml Buprenorphine Ql (U) Negative NEGATIVE [facility] Comment on above: Cutoff: 5 ng/ml Cannabinoids Screen Ql (U) Negative NEGATIVE [facility] Comment on above: Cutoff: 50 ng/ml Cocaine Ql (U) Negative NEGATIVE [facility] Comment on above: Cutoff: 300 ng/ml fentaNYL Ql (U) Negative NEGATIVE [facility] Comment on above: Cutoff: 1.0 ng/ml Methadone Ql (U) Negative NEGATIVE [facility] Comment on above: Cutoff: 300 ng/ml Opiates Screen Ql (U) Negative NEGATIVE [facility] Comment on above: Cutoff: 300 ng/ml Note: The Opiate screen is not intended to detect Oxycodone. oxyCODONE Ql (U) Negative NEGATIVE [facility] Comment on above: Cutoff: 100 ng/ml Phencyclidine Ql (U) Negative NEGATIVE [facility] Comment on above: Cutoff: 25 ng/ml Test Information These drug screen results are for medical purposes only and should not be considered definitive or confirmed. [facility] Comment on above: The drug methodology concentration value must be greater than or equal to the cutoff to be reported as positive. Confirmtory testing orders and/or interpretive sceening questions can be directed to toxicology at [phone]. The absence of expected drug(s) and/or metabolite(s) may be due to inappropriate timing of specimen collection relative to drug administration, poor drug absorption, diluted/adulterated urine, or limitations of screening methodology. [facility] Urinalysis w/ Microon 2023 Urine RBC's 0 TO [address] [facility] Comment on above: Performed By: #### C RAQUEL, CP #### [address] [address] Cavalry Officer: Parvez Norton MD #### EDTOX #### [address] [address] Cavalry Officer: Luis M Coker MD [address] [address] Cavalry Officer: Parvez Norton MD Urine WBC's 0 TO [address] Comment on above: Performed By: #### C RAQUEL, CP #### [address] [address] Cavalry Officer: Parvez Norton MD #### EDTOX #### [address] [address] Cavalry Officer: Luis M Coker MD [address] [address] Cavalry Officer: Parvez Norton MD Bilirubin, SemiQt,Ur Negative Normal NEG [facility] Comment on above: Performed By: #### C RAQUEL, CP #### [address] [address] Cavalry Officer: Parvez Norton MD #### EDTOX #### [place] [address] Cavalry Officer: Luis M Coker MD [address] [address] Cavalry Officer: Parvez Norton MD Blood, Urine Negative Normal NEG [facility] Comment on above: Performed By: #### C RAQUEL, CP #### [address] [address] Cavalry Officer: Parvez Norton MD #### EDTOX #### [address] [address] Cavalry Officer: Luis M Coker MD [address] [address] Cavalry Officer: Parvez Norton MD Clarity (U) Clear Normal CLEAR [facility] Comment on above: Performed By: #### Tigre GARCÍA, CP #### [address] [address] Cavalry Officer: Parvez Norton MD #### EDTOX #### [address] [address] Cavalry Officer: Luis M Coker MD [address] [address] Cavalry Officer: Parvez Norton MD Color (U) Yellow Normal YEL [facility] Comment on above: Performed By: #### C RAQUEL, CP #### [address] [address] Cavalry Officer: Parvez Norton MD #### EDTOX #### [address] [address] Cavalry Officer: Luis M Coker MD [address] [address] Cavalry Officer: Parvez Norton MD Glucose Ql (U) Negative Normal NEG [facility] Comment on above: Performed By: #### C RAQUEL, CP #### [address] [address] Cavalry Officer: Parvez Norton MD #### EDTOX #### [address] [address] Cavalry Officer: Luis M Coker MD [address] [address] Cavalry Officer: Parvez Norton MD Ketones Ql (U) Negative Normal NEG [facility] Comment on above: Performed By: #### C RAQUEL, CP #### [address] [address] Cavalry Officer: Parvez Norton MD #### EDTOX #### [address] [address] Cavalry Officer: Luis M Coker MD [address] [address] Cavalry Officer: Parvez Norton MD Leukocyte esterase Test strip Ql (U) Negative Normal [facility] Comment on above: Performed By: #### Tigre GARCÍA, CP #### [address] [address] Cavalry Officer: Parvez Norton MD #### EDTOX #### [address] [address] Cavalry Officer: Luis M Coker MD [address] [address] Cavalry Officer: Parvez Norton MD Nitrite,Ur Negative Normal [facility] Comment on above: Performed By: #### C RAQUEL, CP #### [address] [address] Cavalry Officer: Parvez Norton MD #### EDTOX #### [address] [address] Cavalry Officer: Luis M Coker MD [address] [address] Cavalry Officer: Parvez Norton MD PH,Ur 6.0 Normal 5.0-9.0 [facility] Comment on above: Performed By: #### Tigre GARCÍA CP #### [address] [address] Cavalry Officer: Parvez Norton MD #### EDTOX #### [address] [address] Cavalry Officer: Luis M Coker MD [address] [address] Cavalry Officer: Parvez Norton MD Protein Ql (U) Negative Normal NEG [facility] Comment on above: Performed By: #### Tigre GARCÍA CP #### [address] [address] Cavalry Officer: Parvez Norton MD #### EDTOX #### [address] [address] Cavalry Officer: Luis M Coker MD [address] [address] Cavalry Officer: Parvez Norton MD Spec. [place],Ur 1.015 Normal 1.005-1.030 [facility] Comment on above: Performed By: #### Tigre GARCÍA, CP #### [address] [address] Cavalry Officer: Parvez Norton MD #### EDTOX #### [facility] [address] [place] [address] Cavalry Officer: Luis M Coker MD [address] [address] Cavalry Officer: Parvez Norton MD Urobilinogen,Ur 0.2 EU/dL Normal 0.0-1.0 [facility] Comment on above: Performed By: #### C BCWD, CP #### [address] [id number] Cavalry Officer: Parvez Norton MD #### EDTOX #### [address] [address] Cavalry Officer: Luis M Coker MD [address] [address] Cavalry Officer: Parvez Norton MD Urinalysis with Microscopico n 05-09-2023 Bilirubin Ql (U) Negative NEGATIVE [facility] Clarity (U) Clear Clear [facility] Color (U) Yellow Yellow [facility] Glucose Test strip (U) [Mass/Vol] Negative NEGATIVE mg/dL [facility] Hemoglobin Auto test strip Ql (U) Negative NEGATIVE [facility] Ketones (U) [Mass/Vol] Negative NEGATIVE mg/dL [facility] Leukocyte esterase Test strip Ql (U) Negative NEGATIVE [facility] Nitrite Ql (U) Negative NEGATIVE [facility] pH (U) 6.0 [pH] 5.0 - 9.0 [facility] Protein (U) [Mass/Vol] Negative NEGATIVE mg/dL [facility] RBC LM.HPF (Urine sed) [#/Area] 0 TO 2 0 TO 2 /HPF [facility] Specific gravity (U) [Rel density] 1.015 1.005 - 1.030 [facility] Urobilinogen Qn (U) 0.2 {Donnell'U}/dL 0. 0 - 1.0 EU/dL [facility] WBC LM.HPF (Urine sed) [#/Area] 0 TO 5 0 TO 5 /HPF [facility] CBC with Auto Differentialon 05-08-2023 Basophils (Bld) [#/Vol] 0.04 10*3/uL [facility] Basophils/100 WBC (Bld) 1 % 0.0 - 2.0 % [facility] Eosinophils (Bld) [#/Vol] 0.11 10*3/uL [facility] Eosinophils/100 WBC (Bld) 2 % 0 - 6 % [facility] Erythrocyte distribution width (RBC) [Ratio] 13.8 % 11.5 - 15.0 % [facility] Hematocrit (Bld) [Volume fraction] 46.0 % 37.0 - 54.0 % [facility] Hemoglobin (Bld) [Mass/Vol] 16.3 g/dL 12.5 - 16.5 g/dL [facility] Immature granulocytes (Bld) [#/Vol] [facility] Immature granulocytes/100 WBC (Bld) 0 % 0.0 - 5.0 % [facility] Interpretation and review of laboratory results Abnormal [facility] Lymphocytes/100 WBC (Bld) 51 % High 20.0 - 42.0 % [facility] Lymphocytes/100 WBC (Bld) 3.78 % [facility] MCH (RBC) [Entitic mass] 29.5 pg 26.0 - 35.0 pg [facility] MCHC (RBC) [Mass/Vol] 35.4 g/dL High 32.0 - 34.5 g/dL [facility] MCV (RBC) [Entitic vol] 83.3 fL 80.0 - 99.9 fL [facility] Monocytes/100 WBC (Bld) 8 % 2.0 - 12.0 % [facility] Monocytes/100 WBC (Bld) 0.62 % [facility] Neutrophils/100 WBC (Bld) 38 % Low 43.0 - 80.0 % [facility] Platelet mean volume (Bld) [Entitic vol] 8.2 fL 7.0 - 12.0 fL [facility] Platelets (Bld) [#/Vol] 390 10*3/uL [facility] RBC (Bld) [#/Vol] 5.52 10*6/uL 3.80 - 5.8 0 m/uL [facility] Segmented neutrophils/100 WBC (Bld) 2.81 % [facility] WBC other (Bld) [#/Vol] 7.4 [facility] CBC with Diffon 05-08-2023 Abs. Basophil 0.04 k/uL Normal 0.00-0.20 [facility] Comment on above: Performed By: #### C RAQUEL, CP #### [address] [address] [employer] Officer: Parvez Norton MD #### EDTOX #### [address] [address] [employer] Officer: Luis M Coker MD [address] [address] Cav[employer] Officer: Parvez Norton MD Abs.Imm.Granulocyte <0.03 Normal 0.00-0.58 [facility] Comment on above: Performed By: #### Tigre GARCÍA, CP #### [address] [address] [employer] Officer: Parvez Norton MD #### EDTOX #### [address] [address] [employer] Officer: Luis M Coker MD [address] [address] [employer] Officer: Parvez Norton MD Abs.Neutrophil (Seg) 2.81 k/uL Normal 1.80-7.30 [facility] Comment on above: Performed By: #### Tigre GARCÍA, CP #### [address] [address] [employer] Officer: Parvez Norton MD #### EDTOX #### [address] [address] [employer] Officer: Luis M Coker MD [address] [address] [employer] Officer: Parvez Norton MD Basophils/100 WBC (Bld) 1 % Normal 0.0-2.0 [facility] Comment on above: Performed By: #### C RAQUEL, CP #### [address] [address] [employer] Officer: Parvez Norton MD #### EDTOX #### [place] [address] [employer] Officer: Luis M Coker MD [address] [address] [employer] Officer: Parvez Norton MD Eosinophils (Bld) [#/Vol] 0.11 10*3/uL Normal 0.05-0.50 [facility] Comment on above: Performed By: #### Tigre GARCÍA, CP #### [address] [address] [employer] Officer: Parvez Norton MD #### EDTOX #### [place] [id number] [employer] Officer: Luis M Coker MD [address] [address] Cav[employer] Officer: Parvez Norton MD Eosinophils/100 WBC (Bld) 2 % Normal 0-6 [facility] Comment on above: Performed By: #### C RAQUEL, CP #### [address] [address] [employer] Officer: Parvez Norton MD #### EDTOX #### [address] [address] [employer] Officer: Luis M Coker MD [address] [address] Cav[employer] Officer: Parvez Norton MD Erythrocyte distribution width (RBC) [Ratio] 13.8 % Normal 11.5-15.0 [facility] Comment on above: Performed By: #### C RAQUEL, CP #### [address] [address] Cav[employer] Officer: Parvez Norton MD #### EDTOX #### [address] [address] Cav[employer] Officer: Luis M Coker MD [address] [address] Cav[employer] Officer: Parvez Norton MD Hematocrit (Bld) [Volume fraction] 46.0 % Normal 37.0-54.0 [facility] Comment on above: Performed By: #### Tigre GARCÍA CP #### [address] [address] Cav[employer] Officer: Parvez Norton MD #### EDTOX #### [address] [address] Cav[employer] Officer: Luis M Coker MD [address] [address] Cavalry Officer: Parvez Norton MD Hemoglobin (Bld) [Mass/Vol] 16.3 g/dL Normal 12.5-16.5 [facility] Comment on above: Performed By: #### Tigre GARCÍA, CP #### [address] [address] Cav[employer] Officer: Parvez Norton MD #### EDTOX #### [address] [id number] Cav[employer] Officer: Luis M Coker MD [address] [address] Cavalry Officer: Parvez Norton MD Immature granulocytes/100 WBC (Bld) 0 % Normal 0.0-5.0 [facility] Comment on above: Performed By: #### Tigre GARCÍA, CP #### [address] [address] Cav[employer] Officer: Parvez Norton MD #### EDTOX #### [address] [address] Cav[employer] Officer: Luis M Coker MD [address] [address] Cavalry Officer: Parvez Norton MD Lymphocytes (Bld) [#/Vol] 3.78 10*3/uL Normal 1.50-4.00 [facility] Comment on above: Performed By: #### Tigre GARCÍA CP #### [address] [address] Cav[employer] Officer: Parvez Norton MD #### EDTOX #### [address] [address] Cav[employer] Officer: Luis M Coker MD [address] [address] Cavalry Officer: Parvez Norton MD Lymphocytes/100 WBC (Bld) 51 % High 20.0-42.0 [facility] Comment on above: Performed By: #### Tigre GARCÍA, CP #### [address] [address] Cav[employer] Officer: Parvez Norton MD #### EDTOX #### [address] [place] [address] [employer] Officer: Luis M Coker MD [address] [address] Cavalry Officer: Parvez Norton MD MCH (RBC) [Entitic mass] 29.5 pg Normal 26.0-35.0 [facility] Comment on above: Performed By: #### Tigre GARCÍA CP #### [address] [address] Cav[employer] Officer: Parvez Norton MD #### EDTOX #### [address] [address] Cav[employer] Officer: Luis M Coker MD [address] [address] Cavalry Officer: Parvez Norton MD MCHC (RBC) [Mass/Vol] 35.4 g/dL High 32.0-34.5 [facility] Comment on above: Performed By: #### Tigre GARCÍA CP #### [address] [address] Cav[employer] Officer: Parvez Norton MD #### EDTOX #### [address] [address] Cav[employer] Officer: Luis M Coker MD [address] [address] Cavalry Officer: Parvez Norton MD MCV (RBC) [Entitic vol] 83.3 fL Normal 80.0-99.9 [facility] Comment on above: Performed By: #### C RAQUEL, CP #### [address] [address] Cav[employer] Officer: Parvez Norton MD #### EDTOX #### [address] [address] Cav[employer] Officer: Luis M Coker MD [address] [address] Cavalry Officer: Parvez Norton MD Monocytes (Bld) [#/Vol] 0.62 10*3/uL Normal 0.10-0.95 [facility] Comment on above: Performed By: #### Tigre GARCÍA, CP #### [address] [address] Cav[employer] Officer: Parvez Norton MD #### EDTOX #### [address] [address] Cavalry Officer: Luis M Coker MD [address] [address] Cavalry Officer: Parvez Norton MD Monocytes/100 WBC (Bld) 8 % Normal 2.0-12.0 [facility] Comment on above: Performed By: #### Tigre GARCÍA, CP #### [address] [address] Cav[employer] Officer: Parvez Norton MD #### EDTOX #### [address] [address] Cav[employer] Officer: Luis M Coker MD [address] [address] Cavalry Officer: Parvez Norton MD Neutrophil (Seg) 38 % Low 43.0-80.0 [facility] Comment on above: Performed By: #### Tigre GARCÍA, CP #### [address] [address] Cav[employer] Officer: Parvez Norton MD #### EDTOX #### [address] [address] Cav[employer] Officer: Luis M Coker MD [address] [address] Cav[employer] Officer: Parvez Norton MD Platelet mean volume (Bld) [Entitic vol] 8.2 fL Normal 7.0-12.0 [facility] Comment on above: Performed By: #### C RAQUEL, CP #### [address] [address] [employer] Officer: Parvez Norton MD #### EDTOX #### [address] [address] Cav[employer] Officer: Luis M Coker MD [address] [address] Cavalry Officer: Parvez Norton MD Platelets (Bld) [#/Vol] 390 10*3/uL Normal 130-450 [facility] Comment on above: Performed By: #### Tigre GARCÍA, CP #### [address] [address] Cav[employer] Officer: Parvez Norton MD #### EDTOX #### [address] [address] Cav[employer] Officer: Luis M Coker MD [address] [address] Cav[employer] Officer: Parvez Norton MD RBC (Bld) [#/Vol] 5.52 10*6/uL Normal 3.80-5.80 [facility] Comment on above: Performed By: #### Tigre GARCÍA, CP #### [address] [address] Cav[employer] Officer: Parvez Norton MD #### EDTOX #### [address] [address] Cav[employer] Officer: Luis M Coker MD [address] [address] Cav[employer] Officer: Parvez Norton MD WBC (Bld) [#/Vol] 7.4 10*3/uL Normal 4.5-11.5 [facility] Comment on above: Performed By: #### C BCOSMAR, CP #### [facility] [address] [place] [address] [employer] Officer: Parvez Norton MD #### EDTOX #### [facility] [address] [place], [place] [id number] [employer] Officer: Luis M Coker MD [facility] [address] [place], [place] [address] Cav[employer] Officer: Parvez Norton [facility] Albumin [Mass/Vol] 4.5 g/dL 3.5 - 5.2 g/dL [facility] ALP [Catalytic activity/Vol] 112 U/L 40 - 129 U/L [facility] ALT [Catalytic activity/Vol] 59 U/L High 0 - 40 U/L [facility] Anion gap [Moles/Vol] 8 mmol/L 7 - 16 mmol/L [facility] AST [Catalytic activity/Vol] U/L 0 - 39 U/L [facility] Bilirubin [Mass/Vol] 0.2 mg/dL 0.0 - 1 .2 mg/dL [facility] Calcium [Mass/Vol] 8.7 mg/dL 8.6 - 10. 2 mg/dL [facility] Chloride [Moles/Vol] 108 mmol/L High 98 - 10 7 mmol/L [facility] CO2 [Moles/Vol] 27 mmol/L 22 - 29 mmol/L [facility] Creatinine [Mass/Vol] 1.1 mg/dL 0.70 - 1.20 mg/dL [facility] GFR/1.73 sq M.predicted MDRD (S/P/Bld) [Vol rate/Area] - PINF [facility] Comment on above: These results are not intended for use in patients <18 years of age. eGFR results are calculated without a race factor using the 2020 CKD-EPI equation. Careful clinical correlation is recommended, particularly when comparing to results calculated using previous equations. The CKD-EPI equation is less accurate in patients with extremes of muscle mass, extra-renal metabolism of creatine, excessive creatine ingestion, or following therapy that affects renal tubular secretion. Glucose [Mass/Vol] 105 mg/dL High 74 - 99 mg/dL [facility] Interpretation and review of laboratory results Abnormal [facility] Potassium [Moles/Vol] 4.2 mmol/L 3.5 - 5.0 mmol/L [facility] Protein [Mass/Vol] 7.5 g/dL 6.4 - 8.3 g/dL [facility] Sodium [Moles/Vol] 143 mmol/L 132 - 146 mmol/L [facility] Urea nitrogen [Mass/Vol] 11 mg/dL 6 - 20 mg/dL [facility] Comp Metabolic Profon 2023 Albumin [Mass/Vol] 4.5 g/dL Normal 3.5-5.2 [facility] Comment on above: Performed By: #### C NICHELLE GARCÍA #### [address] [address] Cav[employer] Officer: Parvez Norton MD #### EDTOX #### [address] [id number] Cav[employer] Officer: Luis M Coker MD [address] [address] Cavalry Officer: Parvez Norton MD Alkaline Phos 112 U/L Normal 40-129 [facility] Comment on above: Performed By: #### Tigre GARCÍA CP #### [address] [address] Cav[employer] Officer: Parvez Norton MD #### EDTOX #### [address] [phone] Cav[employer] Officer: Luis M Coker MD [address] [address] Cavalry Officer: Parvez Norton MD ALT [Catalytic activity/Vol] 59 U/L High 0-40 [facility] Comment on above: Performed By: #### Tigre GARCÍA, CP #### [address] [address] Cavalry Officer: Parvez Norton MD #### EDTOX #### [address] [address] Cav[employer] Officer: Luis M Coker MD [address] [address] Cavalry Officer: Parvez Norton MD Anion gap [Moles/Vol] 8 mmol/L Normal 7-16 [facility] Comment on above: Performed By: #### Tigre GARCÍA, CP #### [address] [address] Cav[employer] Officer: Parvez Norton MD #### EDTOX #### [address] [address] Cavalry Officer: Luis M Coker MD [address] [address] Cavalry Officer: Parvez Norton MD AST [Catalytic activity/Vol] U/L Normal 0-39 [facility] Comment on above: Performed By: #### Tigre GARCÍA, CP #### [address] [address] Cav[employer] Officer: Parvez Norton MD #### EDTOX #### [address] [address] Cavalry Officer: Luis M Coker MD [address] [address] Cavalry Officer: Parvez Norton MD Bilirubin [Mass/Vol] 0.2 mg/dL Normal 0.0-1.2 [facility] Comment on above: Performed By: #### Tigre GARCÍA, CP #### [address] [address] Cavalry Officer: Parvez Norton MD #### EDTOX #### [address] [address] Cavalry Officer: Luis M Coker MD [address] [address] Cavalry Officer: Parvez Norton MD Calcium [Mass/Vol] 8.7 mg/dL Normal 8.6-10.2 [facility] Comment on above: Performed By: #### Tigre GARCÍA, CP #### [address] [address] Cavalry Officer: Parvez Norton MD #### EDTOX #### [address] [address] Cav[employer] Officer: Luis M Coker MD [address] [address] Cavalry Officer: Parvez Norton MD Chloride [Moles/Vol] 108 mmol/L High 98-107 [facility] Comment on above: Performed By: #### Tigre GARCÍA, CP #### [address] [address] Cav[employer] Officer: Parvez Norton MD #### EDTOX #### [address] [address] Cav[employer] Officer: Luis M Coker MD [address] [address] Cavalry Officer: Parvez Norton MD CO2 [Moles/Vol] 27 mmol/L Normal 22-29 [facility] Comment on above: Performed By: #### C RAQUEL, CP #### [address] [address] Cav[employer] Officer: Parvez Norton MD #### EDTOX #### [address] [address] Cavalry Officer: Luis M Coker MD [address] [address] Cavalry Officer: Parvez Norton MD Creatinine [Mass/Vol] 1.1 mg/dL Normal 0.70-1.20 [facility] Comment on above: Performed By: #### C RAQUEL, CP #### [address] [address] Cav[employer] Officer: Parvez Norton MD #### EDTOX #### [address] [address] Cavalry Officer: Luis M Coker MD [address] [address] Cavalry Officer: Parvez Norton MD GFR/1.73 sq M.predicted among non-blacks MDRD (S/P/Bld) [Vol rate/Area] mL/min/{1.73_m2} Normal >60 [facility] Comment on above: Result Comment: These results are not intended for use in patients <18 years of age. eGFR results are calculated without a race factor using the 2020 CKD-EPI equation. Careful clinical correlation is recommended, particularly when comparing to results calculated using previous equations. The CKD-EPI equation is less accurate in patients with extremes of muscle mass, extra-renal metabolism of creatine, excessive creatine ingestion, or following therapy that affects renal tubular secretion. Performed By: #### C RAQUEL, CP #### [address] [id number] Cav[employer] Officer: Parvez Norton MD #### EDTOX #### [address] [address] Cav[employer] Officer: Luis M Coker MD [address] [address] Cavalry Officer: Parvez Norton MD Glucose [Mass/Vol] 105 mg/dL High 74-99 [facility] Comment on above: Performed By: #### Tigre GARCÍA, CP #### [address] [address] Cavalry Officer: Parvez Norton MD #### EDTOX #### [address] [address] Cavalry Officer: Luis M Coker MD [address] [address] Cavalry Officer: Parvez Norton MD Potassium [Moles/Vol] 4.2 mmol/L Normal 3.5-5.0 [facility] Comment on above: Performed By: #### Tigre GARCÍA CP #### [address] [address] Cavalry Officer: Parvez Norton MD #### EDTOX #### [address] [address] Cavalry Officer: Luis M Coker MD [address] [address] Cavalry Officer: Parvez Norton MD Protein [Mass/Vol] 7.5 g/dL Normal 6.4-8.3 [facility] Comment on above: Performed By: #### Tigre GARCÍA, CP #### [address] [address] Cavalry Officer: Parvez Norton MD #### EDTOX #### [place] [address] Cavalry Officer: Luis M Coker MD [address] [address] Cavalry Officer: Parvez Norton MD Sodium [Moles/Vol] 143 mmol/L Normal 132-146 [facility] Comment on above: Performed By: #### Tigre GARCÍA CP #### [address] [address] Cavalry Officer: Parvez Norton MD #### EDTOX #### [address] [address] Cavalry Officer: Luis M Coker MD [address] [address] Cavalry Officer: Parvez Norton MD Urea nitrogen [Mass/Vol] 11 mg/dL Normal 6-20 [facility] Comment on above: Performed By: #### Tigre GARCÍA CP #### [address] [address] Cavalry Officer: Parvez Norton MD #### EDTOX #### [address] [id number] Cavalry Officer: Luis M Coker MD [address] [address] Cavalry Officer: Parvez Norton MD EKG 12 LeadOrdered By: Brent Lundberg on 05-08-2023 Atrial Rate 77 BPM [employer] Phone: P [place] 36 degrees [employer] Phone: P-R Interval 144 ms [employer] Phone: Q-T Interval 382 ms [employer] Phone: QRS Duration 90 ms [employer] Phone: QTc Calculation (Bazett) 432 ms [facility] [employer] Work Phone: R [place] 75 degrees [facility] Work Phone: T [place] 36 degrees [facility] Work Phone: Ventricular Rate 77 BPM [facility] [employer] Work Phone: [facility] Work Phone: EKG 12 Leadon 05-08-2023 Normal sinus rhythm Normal ECG When compared with ECG of 07-MAY-2023 00:08, Questionable change in QRS axis Confirmed by Brent Lundberg ([id number]) on 05/08/2023 4:35:56 PM [employer] Brent Lundberg MD - 05/08/2023 Normal sinus rhythm Normal ECG When compared with ECG of 07-MAY-2023 00:08, Questionable change in QRS axis Confirmed by Brent Lundberg ([id number]) on 05/08/2023 4:35:56 PM [facility] [employer] Magnesiumon 05-08-2023 Magnesium [Mass/Vol] 2.1 mg/dL 1.6 - 2 .6 mg/dL [facility] [employer] Magnesium [Mass/Vol] 2.1 mg/dL Normal 1.6-2.6 [facility] Comment on above: Performed By: #### C NICHELLE GARCÍA #### [address] [address] Cav[employer] Officer: Parvez Norton MD #### EDTOX #### [facility] [address] [facility] [place] [address] Cav[employer] Officer: Luis M Coker MD [address] [address] Cavalry Officer: Parvez Norton MD No Panel Informationon 05-07 [facility] SERUM DRUG SCREENon 05-08-19 24 Acetaminophen [Mass/Vol] ug/mL Low 10.0 - 30.0 ug/mL [facility] Ethanolamine [Mass/Vol] 262 mg/dL High NINF - 10 mg/dL [facility] Interpretation and review of laboratory results Abnormal [facility] Salicylates [Mass/Vol] mg/dL 0.0 - 30.0 mg/dL [facility] Toxic Tricyclic Sc,Blood Negative NEGATIVE [facility] Comment on above: Cutoff: 300 ng/ml [facility] Tox Scr, Bld, EDon Toxic Tricyclic Sc,Bl Negative Normal NEG [facility] Comment on above: Result Comment: Cuto ff: 300 ng/ml Performed By: #### C BCWD, CP, TROPI, ALCB #### [address] [address] Cav[employer] Officer: Parvez Norton MD Acetaminophen [Mass/Vol] ug/mL Low 10.0-30.0 [facility] Comment on above: Performed By: #### C BCOSMAR, CP, TROPI, ALCB #### [address] [address] Cavalry Officer: Parvez Norton MD Ethanol [Mass/Vol] 262 mg/dL High <10 [facility] Comment on above: Performed By: #### C BCWD, CP, TROPI, ALCB #### [address] [id number] Cav[employer] Officer: Parvez Norton MD Salicylate <0.3 Normal 0.0-30.0 [facility] Comment on above: Performed By: #### C BCOSMAR, CP, TROPI, ALCB #### [address] [address] Cav[employer] Officer: Parvez Norton MD Troponinon 05-08-2023 Troponin I.cardiac High sensitivity method [Mass/Vol] 7 ng/L 0 - 11 ng/L [facility] Comment on above: High Sensitivity Troponin values cannot be compared with other Troponin methodologies. Patients with high levels of Biotin oral intake (i.e >5mg/day) may have falsely decreased Troponin levels. Samples collected within 8 hours of biotin intake may require additional information for diagnosis. [facility] Troponin, High Sens 7 ng/L Normal 0-11 [facility] Comment on above: Result Comment: High Sensitivity Troponin values cannot be compared with other Troponin methodologies. Patients with high levels of Biotin oral intake (i.e >5mg/day) may have falsely decreased Troponin levels. Samples collected within 8 hours of biotin intake may require additional information for diagnosis. Performed By: #### C RAQUEL, CP, TROPI, ALCB #### [address] [address] ( Cavalry Officer: Parvez Norton MD Troponin I.cardiac High sensitivity method [Mass/Vol] 8 ng/L 0 - 11 ng/L [facility] Comment on above: High Sensitivity Troponin values cannot be compared with other Troponin methodologies. Patients with high levels of Biotin oral intake (i.e >5mg/day) may have falsely decreased Troponin levels. Samples collected within 8 hours of biotin intake may require additional information for diagnosis. Troponin, High Sens 8 ng/L Normal 0-11 [facility] Comment on above: Result Comment: High Sensitivity Troponin values cannot be compared with other Troponin methodologies. Patients with high levels of Biotin oral intake (i.e >5mg/day) may have falsely decreased Troponin levels. Samples collected within 8 hours of biotin intake may require additional information for diagnosis. Performed By: #### C RAQUEL, CP #### [address] [address] Cavalry Officer: Parvez Norton MD #### EDTOX #### [facility] [address] [place] [address] ( Cav[employer] Officer: Luis M Coker MD [address] [address] Cav[employer] Officer: Parvez Norton MD Ammoniaon 05-07-2023 Ammonia (P) [Moles/Vol] 17 umol/L Normal 16.0-60.0 [facility] Comment on above: Performed By: #### C BCWD, CP, TROPI, ALCB #### [address] [address] Cavalry Officer: Parvez Norton MD Basic Metabolic Profon 05-06 Anion gap [Moles/Vol] 18 mmol/L High 7-16 [facility] Comment on above: Performed By: #### C BCWD, CP, TROPI, ALCB #### [address] [address] Cavalry Officer: Parvez Norton MD Calcium [Mass/Vol] 8.9 mg/dL Normal 8.6-10.2 [facility] Comment on above: Performed By: #### C BCWD, CP, TROPI, ALCB #### [address] [address] Cavalry Officer: Parvez Norton MD Chloride [Moles/Vol] 106 mmol/L Normal 98-107 [facility] Comment on above: Performed By: #### C BCWD, CP, TROPI, ALCB #### [address] [address] Cav[employer] Officer: Parvez Norton MD CO2 [Moles/Vol] 18 mmol/L Low 22-29 [facility] Comment on above: Performed By: #### C BCWD, CP, TROPI, ALCB #### [address] [address] Cav[employer] Officer: Parvez Norton MD Creatinine [Mass/Vol] 1.1 mg/dL Normal 0.70-1.20 [facility] Comment on above: Performed By: #### C BCWD, CP, TROPI, ALCB #### [address] [id number] Cav[employer] Officer: Parvez Norton MD GFR/1.73 sq M.predicted among non-blacks MDRD (S/P/Bld) [Vol rate/Area] 85 mL/min/{1.73_m2} Normal >60 [facility] Comment on above: Result Comment: These results are not intended for use in patients <18 years of age. eGFR results are calculated without a race factor using the 2020 CKD-EPI equation. Careful clinical correlation is recommended, particularly when comparing to results calculated using previous equations. The CKD-EPI equation is less accurate in patients with extremes of muscle mass, extra-renal metabolism of creatine, excessive creatine ingestion, or following therapy that affects renal tubular secretion. Performed By: #### C RAQUEL, CP, TROPI, ALCB #### [address] [address] [employer] Officer: Parvez Norton MD Glucose [Mass/Vol] 101 mg/dL High 74-99 [facility] Comment on above: Performed By: #### C RAQUEL CP, TROPI, ALCB #### [address] [address] Cav[employer] Officer: Parvez Norton MD Potassium [Moles/Vol] 4.0 mmol/L Normal 3.5-5.0 [facility] Comment on above: Performed By: #### C RAQUEL, CP, TROPI, ALCB #### [address] [address] [employer] Officer: Parvez Norton MD Sodium [Moles/Vol] 142 mmol/L Normal 132-146 [facility] Comment on above: Performed By: #### C RAQUEL CP, TROPI, ALCB #### [address] [address] Cav[employer] Officer: Parvez Norton MD Urea nitrogen [Mass/Vol] 13 mg/dL Normal 6-20 [facility] Comment on above: Performed By: #### C RAQUEL, CP, TROPI, ALCB #### [address] [address] Cavalry Officer: Parvez Norton MD CBC with Diffon 05-07-2023 Abs. Basophil 0.03 k/uL Normal 0.00-0.20 [facility] Comment on above: Performed By: #### C BCWD, CP, TROPI, ALCB #### [address] [address] [employer] Officer: Parvez Norton MD Abs.Imm.Granulocyte <0.03 Normal 0.00-0.58 [facility] Comment on above: Performed By: #### C BCWD, CP, TROPI, ALCB #### [address] [address] ( [employer] Officer: Parvez Norton MD Abs.Neutrophil (Seg) 2.89 k/uL Normal 1.80-7.30 [facility] Comment on above: Performed By: #### C BCWD, CP, TROPI, ALCB #### [address] [address] [employer] Officer: Parvez Norton MD Basophils/100 WBC (Bld) 1 % Normal 0.0-2.0 [facility] Comment on above: Performed By: #### C BCWD, CP, TROPI, ALCB #### [address] [address] ( [employer] Officer: Parvez Norton MD Eosinophils (Bld) [#/Vol] 0.12 10*3/uL Normal 0.05-0.50 [facility] Comment on above: Performed By: #### C BCWD, CP, TROPI, ALCB #### [address] [address] ( [employer] Officer: Parvez Norton MD Eosinophils/100 WBC (Bld) 2 % Normal 0-6 [facility] Comment on above: Performed By: #### C BCWD, CP, TROPI, ALCB #### [address] [address] ( [employer] Officer: Parvez Norton MD Erythrocyte distribution width (RBC) [Ratio] 13.6 % Normal 11.5-15.0 [facility] Comment on above: Performed By: #### C BCWD, CP, TROPI, ALCB #### [address] [address] ( [employer] Officer: Parvez Norton MD Hematocrit (Bld) [Volume fraction] 43.8 % Normal 37.0-54.0 [facility] Comment on above: Performed By: #### C BCWD, CP, TROPI, ALCB #### [address] [address] ( [employer] Officer: Parvez Norton MD Hemoglobin (Bld) [Mass/Vol] 15.3 g/dL Normal 12.5-16.5 [facility] Comment on above: Performed By: #### C BCWD, CP, TROPI, ALCB #### [address] [address] ( [employer] Officer: Parvez Norton MD Immature granulocytes/100 WBC (Bld) 0 % Normal 0.0-5.0 [facility] Comment on above: Performed By: #### C BCWD, CP, TROPI, ALCB #### [address] [address] ( [employer] Officer: Parvez Norton MD Lymphocytes (Bld) [#/Vol] 2.92 10*3/uL Normal 1.50-4.00 [facility] Comment on above: Performed By: #### C BCWD, CP, TROPI, ALCB #### [address] [address] ( [employer] Officer: Parvez Norton MD Lymphocytes/100 WBC (Bld) 44 % High 20.0-42.0 [facility] Comment on above: Performed By: #### C BCWD, CP, TROPI, ALCB #### [address] [address] [employer] Officer: Parvez Norton MD MCH (RBC) [Entitic mass] 29.1 pg Normal 26.0-35.0 [facility] Comment on above: Performed By: #### C BCWD, CP, TROPI, ALCB #### [address] [address] [employer] Officer: Parvez Norton MD MCHC (RBC) [Mass/Vol] 34.9 g/dL High 32.0-34.5 [facility] Comment on above: Performed By: #### C BCOSMAR, CP, TROPI, ALCB #### [address] [address] [employer] Officer: Parvez Norton MD MCV (RBC) [Entitic vol] 83.3 fL Normal 80.0-99.9 [facility] Comment on above: Performed By: #### C BCOSMAR, CP, TROPI, ALCB #### [address] [address] [employer] Officer: Parvez Norton MD Monocytes (Bld) [#/Vol] 0.60 10*3/uL Normal 0.10-0.95 [facility] Comment on above: Performed By: #### C RAQUEL, CP, TROPI, ALCB #### [address] [address] [employer] Officer: Parvez Norton MD Monocytes/100 WBC (Bld) 9 % Normal 2.0-12.0 [facility] Comment on above: Performed By: #### C BCOSMAR, CP, TROPI, ALCB #### [address] [address] ( [employer] Officer: Parvez Norton MD Neutrophil (Seg) 44 % Normal 43.0-80.0 [facility] Comment on above: Performed By: #### C BCOSMAR, CP, TROPI, ALCB #### [id number] [place] [address] [employer] Officer: Parvez Norton MD Platelet mean volume (Bld) [Entitic vol] 8.6 fL Normal 7.0-12.0 [facility] Comment on above: Performed By: #### C BCWD, CP, TROPI, ALCB #### [address] [address] [employer] Officer: Parvez Norton MD Platelets (Bld) [#/Vol] 367 10*3/uL Normal 130-450 [facility] Comment on above: Performed By: #### C RAQUEL, CP, TROPI, ALCB #### [address] [address] [employer] Officer: Parvez Norton MD RBC (Bld) [#/Vol] 5.26 10*6/uL Normal 3.80-5.80 [facility] Comment on above: Performed By: #### C RAQUEL, CP, TROPI, ALCB #### [address] [address] [employer] Officer: Parvez Norton MD WBC (Bld) [#/Vol] 6.6 10*3/uL Normal 4.5-11.5 [facility] Comment on above: Performed By: #### C BCWD, CP, TROPI, ALCB #### [address] [address] [employer] Officer: Parvez Norton MD CT CERVICAL SPINE WO CONTRAS Ton 05-07-2023 CT CERVICAL SPINE WO CONTRAST EXAMINATION: CT OF THE HEAD WITHOUT CONTRAST; CT OF THE CERVICAL SPINE WITHOUT CONTRAST 05/07/2023 1:06 am TECHNIQUE: CT of the head was performed without the administration of intravenous contrast. Automated exposure control, iterative reconstruction, and/or weight based adjustment of the mA/kV was utilized to reduce the radiation dose to as low as reasonably achievable.; CT of the cervical spine was performed without the administration of intravenous contrast. Multiplanar reformatted images are provided for review. Automated exposure control, iterative reconstruction, and/or weight based adjustment of the mA/kV was utilized to reduce the radiation dose to as low as reasonably achievable. COMPARISON: None. HISTORY: ORDERING SYSTEM PROVIDED HISTORY: AMS TECHNOLOGIST PROVIDED HISTORY: Has a code stroke or stroke alert been called?->No Reason for exam:->AMS Decision Support Exception - unselect if not a suspected or confirmed emergency medical condition->Emergency Medical Condition (MA); ORDERING SYSTEM PROVIDED HISTORY: AMS TECHNOLOGIST PROVIDED HISTORY: Reason for exam:->AMS Decision Support Exception - unselect if not a suspected or confirmed emergency medical condition->Emergency Medical Condition (MA) FINDINGS: CT head: BRAIN/VENTRICLES: There is no acute intracranial hemorrhage, mass effect or midline shift. No abnormal extra-axial fluid collection. The ma-white differentiation is maintained without evidence of an acute infarct. There is no evidence of hydrocephalus. ORBITS: The visualized portion of the orbits demonstrate no acute abnormality. SINUSES: The visualized paranasal sinuses and mastoid air cells demonstrate no acute abnormality. SOFT TISSUES/SKULL: No acute abnormality of the visualized skull or soft tissues. CT cervical spine: BONES/ALIGNMENT: There is no acute fracture or traumatic malalignment. DEGENERATIVE CHANGES: There is multilevel degenerative disc disease, most pronounced at C5-C6, resulting in [id number] spinal canal stenosis at this level. SOFT TISSUES: There is no prevertebral soft tissue swelling. IMPRESSION: No acute intracranial abnormality. No acute cervical spine fracture or traumatic malalignment. Interpreted by: Nathalie Mcguire MD Signed by: Nathalie Mcguire MD 05/07/[address] [facility] Comment on above: Order Comment: Reaso n for exam:->AMSDecision Support Exception - unselect if not a suspected or confirmed emergency medical condition->Emergency Medical Condition (MA) CT HEAD WO CONTRASTon 2023 CT HEAD WO CONTRAST EXAMINATION: CT OF THE HEAD WITHOUT CONTRAST; CT OF THE CERVICAL SPINE WITHOUT CONTRAST 05/07/2023 1:06 am TECHNIQUE: CT of the head was performed without the administration of intravenous contrast. Automated exposure control, iterative reconstruction, and/or weight based adjustment of the mA/kV was utilized to reduce the radiation dose to as low as reasonably achievable.; CT of the cervical spine was performed without the administration of intravenous contrast. Multiplanar reformatted images are provided for review. Automated exposure control, iterative reconstruction, and/or weight based adjustment of the mA/kV was utilized to reduce the radiation dose to as low as reasonably achievable. COMPARISON: None. HISTORY: ORDERING SYSTEM PROVIDED HISTORY: AMS TECHNOLOGIST PROVIDED HISTORY: Has a code stroke or stroke alert been called?->No Reason for exam:->AMS Decision Support Exception - unselect if not a suspected or confirmed emergency medical condition->Emergency Medical Condition (MA); ORDERING SYSTEM PROVIDED HISTORY: AMS TECHNOLOGIST PROVIDED HISTORY: Reason for exam:->AMS Decision Support Exception - unselect if not a suspected or confirmed emergency medical condition->Emergency Medical Condition (MA) FINDINGS: CT head: BRAIN/VENTRICLES: There is no acute intracranial hemorrhage, mass effect or midline shift. No abnormal extra-axial fluid collection. The ma-white differentiation is maintained without evidence of an acute infarct. There is no evidence of hydrocephalus. ORBITS: The visualized portion of the orbits demonstrate no acute abnormality. SINUSES: The visualized paranasal sinuses and mastoid air cells demonstrate no acute abnormality. SOFT TISSUES/SKULL: No acute abnormality of the visualized skull or soft tissues. CT cervical spine: BONES/ALIGNMENT: There is no acute fracture or traumatic malalignment. DEGENERATIVE CHANGES: There is multilevel degenerative disc disease, most pronounced at C5-C6, resulting in [id number] spinal canal stenosis at this level. SOFT TISSUES: There is no prevertebral soft tissue swelling. IMPRESSION: No acute intracranial abnormality. No acute cervical spine fracture or traumatic malalignment. Interpreted by: Nathalie Mcguire MD Signed by: Nathalie Mcguire MD 05/07/[address] [facility] Comment on above: Order Comment: Has a code stroke or stroke alert been called?->NoReason for exam:->AMSDecision Support Exception - unselect if not a suspected or confirmed emergency medical condition->Emergency Medical Condition (MA) Creatine Kinaseon 05-07-2023 CK [Catalytic activity/Vol] 305 U/L High 20-200 [facility] Comment on above: Performed By: #### C BCWD, CP, TROPI, ALCB #### [address] [address] [employer] Officer: Parvez Norton MD Drug Scr, Abuse, Uron 2023 Amphetamine(s),Ur Negative Normal NEG [facility] Comment on above: Result Comment: Cuto ff: 1000 ng/mL Performed By: #### C BCWD, CP, TROPI, ALCB #### [address] [id number] [employer] Officer: Parvez Norton MD Barbiturate(s),Ur Negative Normal NEG [facility] Comment on above: Result Comment: Cuto ff: 200 ng/ml Performed By: #### C BCWD, CP, TROPI, ALCB #### [address] [id number] [employer] Officer: Parvez Norton MD Benzodiazepine(s) Negative Normal NEG [facility] Comment on above: Result Comment: Cuto ff: 200 ng/ml Performed By: #### C BCWD, CP, TROPI, ALCB #### [address] [id number] [employer] Officer: Parvez Norton MD Buprenorphrine, Ur Negative Normal NEG [facility] Comment on above: Result Comment: Cuto ff: 5 ng/ml Performed By: #### C BCWD, CP, TROPI, ALCB #### [address] [id number] [employer] Officer: Parvez Norton MD Cannabinoid(s),Ur Negative Normal NEG [facility] Comment on above: Result Comment: Cuto ff: 50 ng/ml Performed By: #### C BCWD, CP, TROPI, ALCB #### [address] [id number] [employer] Officer: Parvez Norton MD Cocaine Metabolite Negative Normal [facility] Comment on above: Result Comment: Cuto ff: 300 ng/ml Performed By: #### C BCWD, CP, TROPI, ALCB #### [address] [id number] [employer] Officer: Parvez Norton MD Fentanyl, Urine Negative Normal NEG [facility] Comment on above: Result Comment: Cuto ff: 1.0 ng/ml Performed By: #### C BCWD, CP, TROPI, ALCB #### [address] [address] [employer] Officer: Parvez Norton MD Interpretive Info These drug screen results are for medical purposes only and should not be Normal [facility] Comment on above: Result Comment: cons idered definitive or confirmed. The drug methodology concentration value must be greater than or equal to the cutoff to be reported as positive. Confirmtory testing orders and/or interpretive sceening questions can be directed to toxicology at [phone]. The absence of expected drug(s) and/or metabolite(s) may be due to inappropriate timing of specimen collection relative to drug administration, poor drug absorption, diluted/adulterated urine, or limitations of screening methodology. Performed By: #### C BCWD, CP, TROPI, ALCB #### [address] [address] [employer] Officer: Parvez Norton MD Methadone Ql (U) Negative Normal NEG [facility] Comment on above: Result Comment: Cuto ff: 300 ng/ml Performed By: #### C BCWD, CP, TROPI, ALCB #### [address] [address] [employer] Officer: Parvez Norton MD Opiate(s), Ur Negative Normal NEG [facility] Comment on above: Result Comment: Cuto ff: 300 ng/ml Note: The Opiate screen is not intended to detect Oxycodone. Performed By: #### C BCWD, CP, TROPI, ALCB #### [address] [id number] [employer] Officer: Parvez Norton MD Oxycodone, Urine Negative Normal NEG [facility] Comment on above: Result Comment: Cuto ff: 100 ng/ml Performed By: #### C BCWD, CP, TROPI, ALCB #### [address] [id number] [employer] Officer: Parvez Norton MD Phencyclidine, Ur Negative Normal NEG [facility] Comment on above: Result Comment: Cuto ff: 25 ng/ml Performed By: #### C BCWD, CP, TROPI, ALCB #### [address] [id number] [employer] Officer: Parvez Norton MD Ethanol Alcoholon 05-07-2023 Ethanol [Mass/Vol] 69 mg/dL High <10 [facility] Comment on above: Performed By: #### C BCWD, CP, TROPI, ALCB #### [address] [address] [employer] Officer: Parvez Norton MD Ethanol [Mass/Vol] 124 mg/dL High <10 [facility] Comment on above: Performed By: #### C BCWD, CP, TROPI, ALCB #### [address] [address] [employer] Officer: Parvez Norton MD Glucose,Whole Bloodon 2023 Glucose [Mass/Vol] 117 mg/dL High 74-99 [facility] Lactate, Sepsison 05-07-2023 Lactic Acid, Sepsis 1.9 mmol/L Normal 0.5-1.9 [facility] Comment on above: Performed By: #### L ACDS #### [address] [address] [employer] Officer: Parvez Norton MD Lactic Acid, Sepsis 2.1 mmol/L High 0.5-1.9 [facility] Comment on above: Performed By: #### C BCWD, CP, TROPI, ALCB #### [address] [address] [employer] Officer: Parvez Norton MD Lipaseon 05-07-2023 Lipase [Catalytic activity/Vol] 24 U/L Normal 13-60 [facility] Comment on above: Performed By: #### C BCWD, CP, TROPI, ALCB #### [facility] [address] [place], [place] [id number] [employer] Officer: Parvez Norton MD Liver Profileon 05-07-2023 Bilirubin, Indirect Can not be calculated Normal 0.0-[address] [facility] Comment on above: Performed By: #### C BCWD, CP, TROPI, ALCB #### [address] [id number] [employer] Officer: Parvez Norton MD Bilirubin.indirect [Mass/Vol] mg/dL Normal 0.0-0.3 [facility] Comment on above: Performed By: #### C BCWD, CP, TROPI, ALCB #### [address] [address] [employer] Officer: Parvez Norton MD Albumin [Mass/Vol] 4.4 g/dL Normal 3.5-5.2 [facility] Comment on above: Performed By: #### C BCWD, CP, TROPI, ALCB #### [facility] [address] [place] [id number] [employer] Officer: Parvez Norton MD Alkaline Phos 113 U/L Normal 40-129 [facility] Comment on above: Performed By: #### C BCWD, CP, TROPI, ALCB #### [facility] [address] [place], [place] [phone] [employer] Officer: Parvez Norton MD ALT [Catalytic activity/Vol] 53 U/L High 0-40 [facility] Comment on above: Performed By: #### C BCWD, CP, TROPI, ALCB #### [facility] [address] [place], [place] [id number] [employer] Officer: Parvez Norton MD AST [Catalytic activity/Vol] 27 U/L Normal 0-39 [facility] Comment on above: Performed By: #### C RAQUEL CP, TROPI, ALCB #### [address] [id number] [employer] Officer: Parvez Norton MD Bilirubin [Mass/Vol] mg/dL Normal 0.0-1.2 [facility] Comment on above: Performed By: #### C RAQUEL, CP, TROPI, ALCB #### [address] [address] [employer] Officer: Parvez Norton MD Protein [Mass/Vol] 7.5 g/dL Normal 6.4-8.3 [facility] Comment on above: Performed By: #### C NICHELLE GARCÍA, TROPI, ALCB #### [address] [address] [employer] Officer: Parvez Norton MD Magnesiumon 05-07-2023 Magnesium [Mass/Vol] 2.3 mg/dL Normal 1.6-2.6 [facility] Comment on above: Performed By: #### C RAQUEL, CP, TROPI, ALCB #### [address] [id number] [employer] Officer: Parvez Norton MD PTon 05-07-2023 INR Coag (PPP) [Relative time] 1.1 {INR} Normal [facility] Comment on above: Result Comment: Therapeutic Range: Moderate Anticoagulant Intensity: INR = 2.0-3.0 High Anticoagulant Intensity: INR = 2.5-3.5 Performed By: #### C RAQUEL, CP, TROPI, ALCB #### [address] [address] [employer] Officer: Parvez Norton MD PT Coag (PPP) [Time] 12.6 s High 9.3-12.4 [facility] Comment on above: Performed By: #### C BCWD, CP, TROPI, ALCB #### [address] [address] [employer] Officer: Parvez Norton MD Tox Scr, Bld, EDon 4 Toxic Tricyclic Sc,Bl Negative Normal NEG [facility] Comment on above: Result Comment: Cuto ff: 300 ng/ml Performed By: #### C BCWD, CP, TROPI, ALCB #### [address] [address] [employer] Officer: Parvez Norton MD Acetaminophen [Mass/Vol] ug/mL Low 10.0-30.0 [facility] Comment on above: Performed By: #### C BCWD, CP, TROPI, ALCB #### [address] [id number] [employer] Officer: Parvez Norton MD Ethanol [Mass/Vol] 202 mg/dL High <10 [facility] Comment on above: Performed By: #### C BCWD, CP, TROPI, ALCB #### [address] [address] [employer] Officer: Parvez Norton MD Salicylate <0.3 Normal 0.0-30.0 [facility] Comment on above: Performed By: #### C BCWD, CP, TROPI, ALCB #### [address] [address] [employer] Officer: Parvez Norton MD Urinalysis w/ Microon 4 Urine RBC's 0 TO [address] [facility] Comment on above: Performed By: #### C BCWD, CP, TROPI, ALCB #### [address] [address] [employer] Officer: Parvez Norton MD Urine WBC's 0 TO [address] [facility] Comment on above: Performed By: #### C BCWD, CP, TROPI, ALCB #### [address] [address] [employer] Officer: Parvez Norton MD Bilirubin, SemiQt,Ur Negative Normal NEG [facility] Comment on above: Performed By: #### C BCWD, CP, TROPI, ALCB #### [address] [address] [employer] Officer: Parvez Norton MD Blood, Urine Negative Normal NEG [facility] Comment on above: Performed By: #### C BCWD, CP, TROPI, ALCB #### [address] [address] [employer] Officer: Parvez Norton MD Clarity (U) Clear Normal CLEAR [facility] Comment on above: Performed By: #### C BCWD, CP, TROPI, ALCB #### [address] [id number] [employer] Officer: Parvez Norton MD Color (U) Yellow Normal YEL [facility] Comment on above: Performed By: #### C BCWD, CP, TROPI, ALCB #### [address] [address] [employer] Officer: Parvez Norton MD Glucose Ql (U) Negative Normal NEG [facility] Comment on above: Performed By: #### C BCWD, CP, TROPI, ALCB #### [address] [address] [employer] Officer: Parvez Norton MD Ketones Ql (U) Negative Normal NEG [facility] Comment on above: Performed By: #### C BCWD, CP, TROPI, ALCB #### [address] [address] [employer] Officer: Parvez Norton MD Leukocyte esterase Test strip Ql (U) Negative Normal NEG [facility] Comment on above: Performed By: #### C BCWD, CP, TROPI, ALCB #### [address] [address] [employer] Officer: Parvez Norton MD Nitrite,Ur Negative Normal NEG [facility] Comment on above: Performed By: #### C BCWD, CP, TROPI, ALCB #### [address] [address] [employer] Officer: Parvez Norton MD PH,Ur 6.0 Normal 5.0-9.0 [facility] Comment on above: Performed By: #### C BCWD, CP, TROPI, ALCB #### [address] [id number] [employer] Officer: Parvez Norton MD Protein Ql (U) Negative Normal NEG [facility] Comment on above: Performed By: #### C BCWD, CP, TROPI, ALCB #### [address] [id number] [employer] Officer: Parvez Norton MD Spec. [place],Ur 1.015 Normal 1.005-1.030 [facility] Comment on above: Performed By: #### C BCWD, CP, TROPI, ALCB #### [address] [id number] [employer] Officer: Parvez Norton MD Urobilinogen,Ur 0.2 EU/dL Normal 0.0-1.0 [facility] Comment on above: Performed By: #### C BCWD, CP, TROPI, ALCB #### [address] [address] [employer] Officer: Parvez Norton MD XR CHEST PORTABLEon 05-07-19 24 XR CHEST PORTABLE EXAMINATION: ONE XRAY VIEW OF THE CHEST 05/07/2023 12:37 am COMPARISON: None. HISTORY: ORDERING SYSTEM PROVIDED HISTORY: Altered mental status TECHNOLOGIST PROVIDED HISTORY: Reason for exam:->Altered mental status FINDINGS: Cardiomediastinal silhouette: Is exaggerated by technique and hypoventilation. Cardiomegaly not excluded. Lungs/pleura: No acute pulmonary infiltrate, pleural effusion, or pneumothorax is identified. Low lung volumes noted. Other: No additional acute abnormality. IMPRESSION: Low lung volumes Accentuated cardiomediastinal silhouette, cardiomegaly not excluded RECOMMENDATION: Consider PA/lateral exam or CT evaluation if there is further clinical concern or persistence of symptoms. Interpreted by: Angelita Vanegas DO Signed by: Angelita Vanegas DO 05/07/[address] [facility] Comment on above: Order Comment: Reaso n for exam:->Altered mental status APTTon 04-22-2023 aPTT Coag (Bld) [Time] 29.0 s Normal 24-36 [facility] Comment on above: Result Comment: An a PTT of 70 to 103 seconds corresponds to a circulating heparin concentration of 0.3 to 0.7 IU/mL. Performed By: #### C MP, TROPI, ALCO, CBCDIF #### [facility] [address] [place] [address] Alcoholon 04-22-2023 Ethanol [Mass/Vol] 152 mg/dL High 0.0-20.0 [facility] Comment on above: Performed By: #### A LCO #### [facility] [address] [place] [address] Ethanol [Mass/Vol] 139 mg/dL High 0.0-20.0 [facility] Comment on above: Performed By: #### C MP, TROPI, ALCO, CBCDIF #### [facility] [address] [place] [address] Ethanol [Mass/Vol] 274 mg/dL High 0.0-20.0 [facility] Comment on above: Performed By: #### C MP, TROPI, ALCO, CBCDIF #### [facility] [address] [place] [address] CBCDIFon 04-22-2023 Abs Baso 0.03 k/uL Normal 0-0.2 [facility] Comment on above: Performed By: #### C MP, TROPI, ALCO, CBCDIF #### [facility] [address] [place] [address] Abs [place] 0.60 k/uL Normal 0-0.8 [facility] Comment on above: Performed By: #### C MP, TROPI, ALCO, CBCDIF #### [facility] [address] [place] [address] Abs Neut 1.85 k/uL Normal 1.8-7.7 [facility] Comment on above: Performed By: #### C MP, TROPI, ALCO, CBCDIF #### [facility] [address] [place] [address] Basophils/100 WBC (Bld) 0.6 % Normal 0-1 [facility] Comment on above: Performed By: #### C MP, TROPI, ALCO, CBCDIF #### [facility] [address] [place] [address] Diff Comments SEE NOTES Normal [facility] Comment on above: Result Comment: Sahley pheral slide reviewed & agrees with automated results Platelet morphology appears normal Performed By: #### C MP, TROPI, ALCO, CBCDIF #### [facility] [address] [place] [address] Eosinophils (Bld) [#/Vol] 0.01 10*3/uL Normal 0-0.4 [facility] Comment on above: Performed By: #### C MP, TROPI, ALCO, CBCDIF #### [facility] [address] [facility] [place] [address] Eosinophils/100 WBC (Bld) 0.2 % Normal 0-4 [facility] Comment on above: Performed By: #### C MP, TROPI, ALCO, CBCDIF #### [facility] [address] [facility] [place] [address] Immature Gran 0.20 % Normal 0-1.9 [facility] Comment on above: Performed By: #### C MP, TROPI, ALCO, CBCDIF #### [facility] [address] [facility] [place] [address] Lymphocytes (Bld) [#/Vol] 2.46 10*3/uL Normal 1.0-4.0 [facility] Comment on above: Performed By: #### C MP, TROPI, ALCO, CBCDIF #### [facility] [address] [facility] [place] [address] Lymphocytes/100 WBC (Bld) 49.6 % High 22-44 [facility] Comment on above: Performed By: #### C MP, TROPI, ALCO, CBCDIF #### [facility] [address] [place] [address] Monocytes/100 WBC (Bld) 12.1 % High 4-12 [facility] Comment on above: Performed By: #### C MP, TROPI, ALCO, CBCDIF #### [facility] [address] [place] [address] Neutrophils/100 WBC (Bld) 37.3 % Low 40-70 [facility] Comment on above: Performed By: #### C MP, TROPI, ALCO, CBCDIF #### [facility] [address] [place] [address] Red Cell Morph SEE NOTES Normal [facility] Comment on above: Result Comment: Norm ocytic/Normochromic RBCs Performed By: #### C MP, TROPI, ALCO, CBCDIF #### [facility] [address] [place] [address] Erythrocyte distribution width (RBC) [Ratio] 13.3 % Normal 11.5-14.5 [facility] Comment on above: Performed By: #### C MP, TROPI, ALCO, CBCDIF #### [facility] [address] [place] [address] Hematocrit (Bld) [Volume fraction] 43.3 % Normal 41.0-53.0 [facility] Comment on above: Performed By: #### C MP, TROPI, ALCO, CBCDIF #### [facility] [address] [place] [address] Hemoglobin (Bld) [Mass/Vol] 15.4 g/dL Normal 13.5-17.5 [facility] Comment on above: Performed By: #### C MP, TROPI, ALCO, CBCDIF #### [facility] [address] [place] [address] MCH 29.4 pG Normal 26-34 [facility] Comment on above: Performed By: #### C MP, TROPI, ALCO, CBCDIF #### [facility] [address] [place] [address] MCHC (RBC) [Mass/Vol] 35.6 g/dL Normal 31-37 [facility] Comment on above: Performed By: #### C MP, TROPI, ALCO, CBCDIF #### [facility] [address] [place] [address] MCV (RBC) [Entitic vol] 82.8 fL Normal 80-100 [facility] Comment on above: Performed By: #### C MP, TROPI, ALCO, CBCDIF #### [facility] [address] [place] [address] NRBCs 0 /100 WBC Normal 0-0.9 [facility] Comment on above: Performed By: #### C MP, TROPI, ALCO, CBCDIF #### [facility] [address] [place] [address] Platelets (Bld) [#/Vol] 242 10*3/uL Normal 150-450 [facility] Comment on above: Performed By: #### C MP, TROPI, ALCO, CBCDIF #### [facility] [address] [place] [address] RBC (Bld) [#/Vol] 5.23 10*6/uL Normal 4.50-5.90 [facility] Comment on above: Performed By: #### C MP, TROPI, ALCO, CBCDIF #### [facility] [address] [place] [address] WBC (Bld) [#/Vol] 4.96 10*3/uL Normal 4.5-11.0 [facility] Comment on above: Performed By: #### C MP, TROPI, ALCO, CBCDIF #### [facility] [address] [place] [address] COVID,FLU,RSV PCRon 04-22-19 Influenza A PCR Negative Normal Negative for Influenza A by RT PCR [facility] Comment on above: Performed By: #### C MP, TROPI, ALCO, CBCDIF #### [facility] [address] [place] [address] Influenza B PCR Negative Normal Negative for Influenza B by RT PCR [facility] Comment on above: Performed By: #### C MP, TROPI, ALCO, CBCDIF #### [facility] [address] [place] [address] RSV by PCR Negative Normal Negative for RSV viral RNA by PCR [facility] Comment on above: Performed By: #### C MP, TROPI, ALCO, CBCDIF #### [facility] [address] [place] [address] SARS-CoV-2 (COVID-19) RNA KARIN+probe Ql (Unsp spec) Negative Normal Negative for COVID-19 (SARS-CoV2) by PCR [facility] Comment on above: Result Comment: This test has been authorized by the FDA under an Emergency Use Authorization (EUA). It has been validated in accordance with the FDA's Guidance Document Policy for Diagnostic Testing in Laboratories Certified to Perform High Complexity Testing under CLIA prior to EUA for Coronavirus Disease 2019 during the Public Health Emergency issued on March 29, 2019. Performed By: #### C MP, TROPI, ALCO, CBCDIF #### [facility] [address] [place] [address] Comp Metabolic Panelon 04-21 Albumin [Mass/Vol] 3.7 g/dL Normal 3.5-5.0 [facility] Comment on above: Performed By: #### C MP, TROPI, ALCO, CBCDIF #### [facility] [address] [place] [address] Alkaline Phos 96 U/L Normal 38-125 [facility] Comment on above: Performed By: #### C MP, TROPI, ALCO, CBCDIF #### [facility] [address] [place] [address] ALT [Catalytic activity/Vol] 64 U/L High 0-49 [facility] Comment on above: Performed By: #### C MP, TROPI, ALCO, CBCDIF #### [facility] [address] [place] [address] Anion gap [Moles/Vol] 14 mmol/L Normal 0-15 [facility] Comment on above: Performed By: #### C MP, TROPI, ALCO, CBCDIF #### [facility] [address] [place] [address] AST [Catalytic activity/Vol] 64 U/L High 17-59 [facility] Comment on above: Performed By: #### C MP, TROPI, ALCO, CBCDIF #### [facility] [address] [facility] [place] [address] Bilirubin [Mass/Vol] 0.4 mg/dL Normal 0.2-1.3 [facility] Comment on above: Performed By: #### C MP, TROPI, ALCO, CBCDIF #### [facility] [address] [facility] [place] [address] Calcium [Mass/Vol] 8.1 mg/dL Low 8.4-10.2 [facility] Comment on above: Performed By: #### C MP, TROPI, ALCO, CBCDIF #### [facility] [address] [place] [address] Chloride [Moles/Vol] 105 mmol/L Normal 98-107 [facility] Comment on above: Performed By: #### C MP, TROPI, ALCO, CBCDIF #### [facility] [address] [place] [address] CO2 [Moles/Vol] 25 mmol/L Normal 22-30 [facility] Comment on above: Performed By: #### C MP, TROPI, ALCO, CBCDIF #### [facility] [address] [place] [address] Creatinine [Mass/Vol] 0.87 mg/dL Normal 0.66-1.25 [facility] Comment on above: Performed By: #### C MP, TROPI, ALCO, CBCDIF #### [facility] [address] [place] [address] eGFR Amer >60 Normal >60 [facility] Comment on above: Result Comment: MDRD calculation used for eGFR results. Performed By: #### C MP, TROPI, ALCO, CBCDIF #### [facility] [address] [place] [address] eGFR non Am >60 Normal >60 [facility] Comment on above: Performed By: #### C MP, TROPI, ALCO, CBCDIF #### [facility] [address] [place] [address] Glucose [Mass/Vol] 112 mg/dL High 74-106 [facility] Comment on above: Performed By: #### C MP, TROPI, ALCO, CBCDIF #### [facility] [address] [place] [address] Potassium [Moles/Vol] 3.5 mmol/L Normal 3.5-5.1 [facility] Comment on above: Performed By: #### C MP, TROPI, ALCO, CBCDIF #### [facility] [address] [place] [address] Protein [Mass/Vol] 6.9 g/dL Normal 6.2-8.2 [facility] Comment on above: Performed By: #### C MP, TROPI, ALCO, CBCDIF #### [facility] [address] [place] [address] Sodium [Moles/Vol] 140 mmol/L Normal 137-145 [facility] Comment on above: Performed By: #### C MP, TROPI, ALCO, CBCDIF #### [facility] [address] [place] [address] Urea nitrogen [Mass/Vol] 9 mg/dL Normal 9-20 [facility] Comment on above: Performed By: #### C MP, TROPI, ALCO, CBCDIF #### [facility] [address] [place] [address] ED NOTEon 04-22-2023 ED NOTE HNO ID: [id number] Author: TRACEY MACKENZIE RN Service: ? Author Type: Registered Nurse Type: ED Notes Filed: 04/22/2023 17:16 Note Text: Reviewed d/c instructions with pt. Pt discharged to home. Pt states that they understand and have no questions regarding d/c and follow-up. Pt was advised to follow up with their PCP and return to ED if symptoms worsen prior to follow-up with PCP. Pt verbalized understanding. IV d/c Normal [facility] ED NOTE HNO ID: [id number] Author: TRACEY MACKENZIE RN Service: ? Author Type: Registered Nurse Type: ED Notes Filed: 04/22/2023 17:14 Note Text: Pt discharged by [facility] WASHER. Pt advised by [facility] WASHER that there is no placement available at this time. Pt was given info for [facility] by [facility] and advised that he needed to call them and follow-up. Pt verbalized understanding and left ED. [facility] ED NOTE HNO ID: [id number] Author: DAVEY STUBBS RN Service: Nursing Author Type: Registered Nurse Type: ED Notes Filed: 04/22/2023 17:11 Note Text: Patient medicated as ordered, see MAR. IV removed. [facility] ED NOTE HNO ID: [id number] Author: UMANG BENSON PCNA Service: ? Author Type: Patient Care Oral Therapist Type: ED Notes Filed: 04/22/2023 16:59 Note Text: PT [facility] go to [facility], PT was given phone information and number by there staff [place] [phone]. [facility] ED NOTE HNO ID: [id number] Author: UMANG BENSON PCNA Service: ? Author Type: Patient Care Oral Therapist Type: ED Notes Filed: 04/22/2023 16:47 Note Text: Lonnie cordero is on the phone with PT [facility] ED NOTE HNO ID: [id number] Author: DAVEY STUBBS RN Service: Nursing Author Type: Registered Nurse Type: ED Notes Filed: 04/22/2023 17:11 Note Text: Patient continuing to state No one has talked to me or informed me of what is going on. I have not even seen a nurse. Informed patient that he has been seen by multiple RNs as well as the nurse practioner. Patient requesting medication for anxiety. [facility] notified. [facility] ED NOTE HNO ID: [id number] Author: DAVEY STUBBS RN Service: Nursing Author Type: Registered Nurse Type: ED Notes Filed: 04/22/2023 15:48 Note Text: COVID swab obtained and sent. [facility] ED NOTE HNO ID: [id number] Author: DAVEY STUBBS RN Service: Nursing Author Type: Registered Nurse Type: ED Notes Filed: 04/22/2023 17:12 Note Text: Patient presents to the ED from home requesting ETOH detox. Patient states he has been seen multiple times and has declined the help. Patient denies any medical complaints. Denies any SI or HI. [facility] ED NOTE HNO ID: [id number] Author: JOSE MORRIS RN Service: ? Author Type: Registered Nurse Type: ED Notes Filed: 04/22/2023 14:45 Note Text: Pt presents to ED AANDOx3 answering all questions with no difficulty at this time - pt denies any SI/HI and states he last drank alcohol 20 mins INSPECTOR PROCESS in ED [facility] ED NOTE HNO ID: [id number] Author: BRAYDEN BALL, JASVIR Service: ? Author Type: Registered Nurse Type: ED Notes Filed: 04/22/2023 09:40 Note Text: Patient declines speaking with [facility]. Left with verbal discharge instructions and left his paperwork at bedside. Gait is quick and steady. [facility] ED NOTE HNO ID: [id number] Author: MISBAH DAVID RN Service: ? Author Type: Registered Nurse Type: ED Notes Filed: 04/22/2023 09:42 Note Text: SOCIAL WORK PROGRESS NOTE Name: Mckinley Roman Received call from ED Jennie STEWART, requesting that I bring resource information down for pt who is requesting inpatient rehab for his alcohol issue. This ios developer is unable to complete an assessment of patient at this time d/t pt not being medically cleared as of yet. Pt's blood alcohol level upon presentation to ED last evening was 274 and upon recheck this morning remains elevated at 139. This ios developer did meet briefly with pt to discuss inpatient rehab. Pt states I need help. I'll go anywhere! . Pt has history of treatment at [facility] and is willing to return if bed is available. T/C placed to [facility]. Per Julia, she will need to speak with the pt to discuss possible readmission to their facility. T/C transferred to ED at this time. Signature: Misbah David RN Date: April 22, 2023 Time: 9:32 AM [facility] ED NOTE HNO ID: [id number] Author: BRAYDEN BALL RN Service: ? Author Type: Registered Nurse Type: ED Notes Filed: 04/22/2023 08:45 Note Text: Intake called per Dr. Keen request. [facility] ED NOTE HNO ID: [id number] Author: BRAYDEN BALL RN Service: ? Author Type: Registered Nurse Type: ED Notes Filed: 04/22/2023 08:00 Note Text: Introduced self to patient. Patient denies HI and denies SI at this time. Warm blanket to patient. [facility] ED NOTE HNO ID: [id number] Author: ESPERANZA NOE, JASVIR Service: ? Author Type: Registered Nurse Type: ED Notes Filed: 04/22/2023 06:42 Note Text: Pt in hospital clothing; personal belongings in storage room. [facility] ED NOTE HNO ID: [id number] Author: ESPERANZA NOE, JASVIR Service: ? Author Type: Registered Nurse Type: ED Notes Filed: 04/22/2023 06:21 Note Text: Pt reports that he would like to receive help for his alcohol issues. Doctor advised. [facility] ED NOTE HNO ID: [id number] Author: IRISH ESTEVEZ, JASVIR Service: Nursing Author Type: Registered Nurse Type: ED Notes Filed: 04/21/2023 23:00 Note Text: Patient to ED via EMS ( [facility]) for complaints of drinking alcohol tonight and requesting rehab. Patient denies SI/HI. Patient alert and orientated. [facility] ED NOTE HNO ID: [id number] Author: ANA ROSA PETERS, Fredrick Service: ? Author Type: Jewel Hole Cornerer and Application Packaging Specialist Type: ED Notes Filed: 04/21/2023 22:57 Note Text: Bed: [facility] Expected date: Expected time: Means of arrival: [facility] Comments: [facility] ED PROV NOTEon 04-22-2023 ED PROV NOTE HNO ID: [id number] Author: DIANA KEEN MD Service: Emergency Medicine Author Type: Nurse Practitioner Type: ED Provider Notes Filed: 04/22/2023 17:59 Note Text: -------- Attestation signed by Diana Keen MD at 04/22/2023 5:59 PM SUPERVISED APC VISIT, PHYSICIAN ATTESTATION: (Supervised) Based on the medical record the care appears appropriate. -------- ED Provider Note Patient Name: Mckinley Roman : 1985 SERVICE DATE: 04/22/23 History Patient presents with: Alcohol Problem: Pt states he would like help with alcohol abuse - pt states he has been in this ED and at [facility] several times but has yet to accept the help that is offered CC: Patient here for admission to a rehab facility if possible. HPI: Patient ANO x 4 reports that he has been drinking hard liquor beer and mixed drinks for the past 18 years almost daily. Multiple visits reviewed by myself. Patient was here last night had full lab work done. Labs were reviewed by myself. He declined admission at that time. Today he states he is willing to stay and go into a rehab facility if we can find him 1. Patient has no chest pain no shortness of breath no nausea vomiting or diarrhea. He denies any seizure activity. Denies any bleeding tendencies. He denies drug use. Patient was here 2 days ago for punching through a glass window pain and sustaining a laceration to his right forearm. This area is well-approximated without signs of infection. Patient mildly anxious but cooperative for me. Denies suicidal homicidal ideation denies auditory or visual hallucinations. States he last drank alcohol 20 minutes prior to arrival. Reports that he is homeless. Nurses notes and vital signs reviewed. 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 No pertinent surgical history. No family history on file. Social History Tobacco Use Smoking status: Some Days Types: Cigarettes Smokeless tobacco: Never Vaping Use Vaping Use: current everyday user Substances: Nicotine, Flavoring Devices: Disposable Substance and Sexual Activity Alcohol use: Yes Comment: 3- fifths daily- whiskey Drug use: Yes Types: Cocaine, Amphetamines Sexual activity: Not on file ALLERGIES No Known Allergies Review of Systems Constitutional: Negative for activity change, appetite change, chills, diaphoresis, fatigue and fever. HENT: Negative. Eyes: Negative for visual disturbance. Respiratory: Negative for cough, chest tightness, shortness of breath and wheezing. Cardiovascular: Negative for chest pain, palpitations and leg swelling. Gastrointestinal: Negative for abdominal pain, diarrhea, nausea and vomiting. Genitourinary: Negative for decreased urine volume, dysuria, flank pain, frequency and urgency. Musculoskeletal: Negative for back pain. Skin: Negative. Neurological: Negative for dizziness, tremors, seizures, facial asymmetry, light-headedness and headaches. Psychiatric/Behavioral: Negative for confusion and suicidal ideas. The patient is not nervous/anxious. Physical Exam Vitals [04/22/23 1442] BP Pulse Temp Temp src Resp SpO2 Weight Height 133/88 (!) 104 37 ?C (98.6 ?F) Oral 16 95 % 107.5 kg (237 lb) -- Physical Exam Psychiatric: Attention and Perception: Attention and perception normal. He does not perceive auditory or visual hallucinations. Mood and Affect: Mood is anxious. Speech: Speech normal. Behavior: Behavior is cooperative. Thought Content: Thought content does not include suicidal ideation. Thought content does not include suicidal plan. Cognition and Memory: Cognition and memory normal. Judgment: Judgment normal. Comments: Mildly anxious or easily redirected. Patient appears very sincere states that he should have taken help last night when he was here. Requesting to have referral for [facility] or [place] [id number]. States he will go this time. Physical Exam Vitals signs and nursing note reviewed. Constitutional: General: patient is awake, is not in acute distress. Appearance: Normal appearance. Well-developed and well-groomed. Is not ill-appearing, toxic-appearing or diaphoretic. HENT: Head: Normocephalic and atraumatic. Nose: Nose normal. Negative for frontal, ethmoid, and maxillary tenderness/erythema/iker a. Negative for periorbital edema. Mouth/Throat: Lips: [place]. Mouth: Mucous membranes are moist. Pharynx: Oropharynx is clear. Negative for erythema, edema, loculated or confluent exudate. Uvula midline. Negative for uvulitis, angioedema or abscess formation. Tonsils: 0 on the right. 0 on the left. TEETH: Deferred, no SX. Eyes: PERRLA, EOMI General: No scleral icterus. Conjunctiva/sclera: Conju (more content not included)... Normal [facility] ED PROV NOTE HNO ID: [id number] Author: DIANA KEEN MD Service: Emergency Medicine Author Type: Physician Type: ED Provider Notes Filed: 04/30/2023 19:31 Note Text: ED Provider Note Patient Name: Mckinley Roman : 1985 SERVICE DATE: 04/21/23 History Patient presents with: Alcohol Problem HPI PAST MEDICAL HISTORY Diagnosis Date Alcohol abuse Psychiatric disorder History reviewed. No pertinent surgical history. No family history on file. Social History Tobacco Use Smoking status: Some Days Types: Cigarettes Smokeless tobacco: Never Vaping Use Vaping Use: current everyday user Substances: Nicotine, Flavoring Devices: Disposable Substance and Sexual Activity Alcohol use: Yes Comment: 3- fifths daily- whiskey Drug use: Yes Types: Cocaine, Amphetamines Sexual activity: Not on file ALLERGIES No Known Allergies Review of Systems Physical Exam Vitals [04/21/23 2300] BP Pulse Temp Temp src Resp SpO2 Weight Height 146/78 77 37.1 ?C (98.8 ?F) Temporal 20 98 % 107.5 kg (237 lb) -- Physical Exam Diagnostic Testing ED Labs Ordered and Reviewed ALCOHOL/ETHANOL BLD - Abnormal; Notable for the following components: Result Value Ref Range Ethanol 274 (*) 0.0 - 20.0 mg/dL All other components within normal limits COMP METABOLIC PANEL - Abnormal; Notable for the following components: Glucose 112 (*) 74 - 106 mg/dL AST 64 (*) 17 - 59 U/L ALT 64 (*) 0 - 49 U/L Calcium 8.1 (*) 8.4 - 10.2 mg/dL All other components within normal limits ALCOHOL/ETHANOL BLD - Abnormal; Notable for the following components: Ethanol 139 (*) 0.0 - 20.0 mg/dL All other components within normal limits TOX SCREEN ROUT UR URINALYSIS, DIPSTICK ONLY Procedures ED Course / Clinical Impression Clinical Impressions as of 04/30/231930 Alcoholic intoxication without complication (HCC) MDM / Disposition / Plan MDM pat stable for d/c SIGNATURE: MD Dima Delacruz, DIANA 04/30/231930 [facility] ED PROV NOTE HNO ID: [id number] Author: TOM FIGUEROA DO, PhD Service: ? Author Type: Physician Type: ED Provider Notes Filed: 04/28/2023 03:12 Note Text: ED Provider Note Patient Name: Mckinley Roman : 1985 SERVICE DATE: 04/21/23 History Patient presents with: Alcohol Problem Patient presents with alcohol intoxication. Multiple prior visits no physical complaints today. Stated he feels anxiety which is a common presentation for this patient denies being suicidal or homicidal. Does admit to consuming alcohol this evening. PAST MEDICAL HISTORY Diagnosis Date Alcohol abuse Psychiatric disorder History reviewed. No pertinent surgical history. No family history on file. Social History Tobacco Use Smoking status: Some Days Types: Cigarettes Smokeless tobacco: Never Vaping Use Vaping Use: current everyday user Substances: Nicotine, Flavoring Devices: Disposable Substance and Sexual Activity Alcohol use: Yes Comment: 3- fifths daily- whiskey Drug use: Yes Types: Cocaine, Amphetamines Sexual activity: Not on file ALLERGIES No Known Allergies Review of Systems Constitutional: Negative. HENT: Negative. Eyes: Negative. Respiratory: Negative. Cardiovascular: Negative. Gastrointestinal: Negative. Genitourinary: Negative. Musculoskeletal: Negative. Skin: Negative. Psychiatric/Behavioral: Negative for suicidal ideas. The patient is nervous/anxious. Physical Exam Vitals [04/21/23 2300] BP Pulse Temp Temp src Resp SpO2 Weight Height 146/78 77 37.1 ?C (98.8 ?F) Temporal 20 98 % 107.5 kg (237 lb) -- Physical Exam Vitals and nursing note reviewed. Constitutional: Appearance: He is well-developed. HENT: Head: Normocephalic and atraumatic. Right Ear: External ear normal. Left Ear: External ear normal. Nose: Nose normal. Mouth/Throat: Mouth: Mucous membranes are moist. Pharynx: Oropharynx is clear. Eyes: Extraocular Movements: Extraocular movements intact. Conjunctiva/sclera: Conjunctivae normal. Pupils: Pupils are equal, round, and reactive to light. Cardiovascular: Rate and Rhythm: Normal rate and regular rhythm. Pulses: Normal pulses. Carotid pulses are 2+ on the right side and 2+ on the left side. Heart sounds: Normal heart sounds, S1 normal and S2 normal. No murmur heard. No gallop. Pulmonary: Effort: Pulmonary effort is normal. Breath sounds: Normal breath sounds. Abdominal: General: Bowel sounds are normal. Palpations: Abdomen is soft. Musculoskeletal: General: Normal range of motion. Cervical back: Normal range of motion and neck supple. Skin: General: Skin is warm and dry. Capillary Refill: Capillary refill takes less than 2 seconds. Neurological: General: No focal deficit present. Mental Status: He is alert and oriented to person, place, and time. Psychiatric: Mood and Affect: Mood normal. Behavior: Behavior normal. Diagnostic Testing ED Labs Ordered and Reviewed ALCOHOL/ETHANOL BLD - Abnormal; Notable for the following components: Result Value Ref Range Ethanol 274 (*) 0.0 - 20.0 mg/dL All other components within normal limits COMP METABOLIC PANEL - Abnormal; Notable for the following components: Glucose 112 (*) 74 - 106 mg/dL AST 64 (*) 17 - 59 U/L ALT 64 (*) 0 - 49 U/L Calcium 8.1 (*) 8.4 - 10.2 mg/dL All other components within normal limits ALCOHOL/ETHANOL BLD - Abnormal; Notable for the following components: Ethanol 139 (*) 0.0 - 20.0 mg/dL All other components within normal limits TOX SCREEN ROUT UR URINALYSIS, DIPSTICK ONLY Procedures ED Course / Clinical Impression Clinical Impressions as of 04/28/23 0309 Alcoholic intoxication without complication (HCC) MDM / Disposition / Plan Patient presents with alcohol intoxication a frequent presentation for this patient no physical complaints unremarkable exam initially we observing the patient as he sleeps prior to discharge given his elevated blood alcohol however upon waking around for this after several hours he wishes to try alcohol detox. Sign out to Dr. Keen at 7AM SIGNATURE: Tom Figueroa DO, PhD - TOM FIGUEROA 04/28/23 0317 Normal [facility] Protimeon 04-22-2023 PT INR 0.9 Normal 0.6-1.1 [facility] Comment on above: Result Comment: The PT/INR can be used to monitor the therapeutic effect of oral anticoagulants, such as warfarin. The recommended therapeutic range is an INR of 2.0 to 3.0 for most applications, including treatment and prevention of venous thrombosis, treatment of pulmonary embolism, prevention of strokes/TIA in patients with atrial fibrillation, prevention and treatment of thrombosis in patients with a lupus anticoagulant and prevention of systemic embolization in patients with heart valve disorders. There are certain conditions where clinicians may decide to use a lower or higher therapeutic range eg. 1.5 to 1.9 for secondary prevention of idiopathic venous thromboembolism and an INR 2.5 to 3.5 for older generation mechanical heart valves. Jose Rell, et al. Chest 2004: 126:204S to 233S. Performed By: #### C MP, TROPI, ALCO, CBCDIF #### [facility] [address] [place] [address] PT Sec 12.8 sec Normal 11.8-14.1 [facility] Comment on above: Performed By: #### C MP TROPI, ALCO, CBCDIF #### [facility] [address] [place] [address] Urinalysison 04-22-2023 Bilirubin Ql (U) Negative Normal Negative [facility] Comment on above: Performed By: #### U A ####[facility] [id number] [place], [place] [phone] Performed By: #### C MP, TROPI, ALCO, CBCDIF #### [facility] [address] [place] [address] Clarity (U) Clear Normal Clear [facility] Comment on above: Performed By: #### U A ####[facility] Lje61703 [place], [place] [phone] Performed By: #### C MP, TROPI, ALCO, CBCDIF #### [facility] [address] [place] [address] Color (U) Straw Critically abnormal Yellow [facility] Comment on above: Performed By: #### U A ####[facility] Aar01330 [facility], [place] [phone] Comments MICROSCOPIC ANALYSIS NOT DONE ON URINES WITH NEGATIVE BIOCHEMICAL TESTS Normal [facility] Comment on above: Performed By: #### U A ####[facility] [id number] [facility], [place] [phone] Glucose Ql (U) Negative Normal Negative [facility] Comment on above: Performed By: #### U A ####[facility] Esw59885 [place], [place] [phone] Performed By: #### C MP, TROPI, ALCO, CBCDIF #### [facility] [address] [place] [address] Hemoglobin/Blood Negative Normal Negative [facility] Comment on above: Performed By: #### U A ####[facility] Mij30139 [place], [place] [phone] Performed By: #### C MP, TROPI, ALCO, CBCDIF #### [facility] [address] [place] [address] Ketone Negative Normal Negative [facility] Comment on above: Performed By: #### U A ####[facility] Lpj25402 [place], [place] [phone] Performed By: #### C MP, TROPI, ALCO, CBCDIF #### [facility] [address] [facility] [place] [address] Leukest Negative Normal Negative [facility] Comment on above: Performed By: #### U A ####[facility] Bfu57759 [facility], [place] [phone] Performed By: #### C MP, TROPI, ALCO, CBCDIF #### [facility] Lab [address] [place] [address] Nitrite Ql (U) Negative Normal Negative [facility] Comment on above: Performed By: #### U A ####[facility] Hmi51038 [address] [place], [place] [phone] Performed By: #### C MP, TROPI, ALCO, CBCDIF #### [facility] [address] [place] [address] pH (U) 6.0 [pH] Normal 5-7 [facility] Comment on above: Performed By: #### U A ####[facility] Lsn52859 [address] [place], [place] [phone] Protein Ql (U) Negative Normal Negative [facility] Comment on above: Performed By: #### U A ####[facility] Ovh59380 [facility] [phone] Performed By: #### C MP, TROPI, ALCO, CBCDIF #### [facility] [address] [facility] [place] [address] Urine Spec [place] 1.008 Normal 1.005-1.030 [facility] Comment on above: Performed By: #### U A ####[facility] Kyx45152 [address] [place], [place] [phone] Urobilinogen (U) [Mass/Vol] mg/dL Normal 0.0-1.0 [facility] Comment on above: Performed By: #### U A ####[facility] Uah54229 [facility] [place], [place] [phone] Performed By: #### C MP, TROPI, ALCO, CBCDIF #### [facility] [address] [place] [address] Color (U) Yellow Normal Yellow [facility] Comment on above: Performed By: #### C MP, TROPI, ALCO, CBCDIF #### [facility] [address] [place] [address] pH (U) 7.0 [pH] Normal 5-7 [facility] Comment on above: Performed By: #### C MP, TROPI, ALCO, CBCDIF #### [facility] [address] [place] [address] RBC 0-3 Normal 0-3 [facility] Comment on above: Performed By: #### C MP, TROPI, ALCO, CBCDIF #### [facility] [address] [place] [address] Urine Spec [place] 1.010 Normal 1.005-1.030 [facility] Comment on above: Performed By: #### C MP, TROPI, ALCO, CBCDIF #### [facility] [address] [place] [address] WBC 0-5 Normal 0-5 [facility] Comment on above: Performed By: #### C MP, TROPI, ALCO, CBCDIF #### [facility] [address] [place] [address] Urine Drug Screenon 04-22-19 24 Urine Amphetamines Not detected Normal None Detected [facility] Comment on above: Performed By: #### C MP, TROPI, ALCO, CBCDIF #### [facility] [address] [place] [address] Urine Barbiturates Not detected Normal None Detected [facility] Comment on above: Performed By: #### C MP, TROPI, ALCO, CBCDIF #### [facility] [address] [place] [address] Urine Benzos Not detected Normal None Detected [facility] Comment on above: Performed By: #### C MP, TROPI, ALCO, CBCDIF #### [facility] [address] [place] [address] Urine Cocaine Not detected Normal None Detected [facility] Comment on above: Performed By: #### C MP, TROPI, ALCO, CBCDIF #### [facility] [address] [place] [address] Urine Opiates Not detected Normal None Detected [facility] Comment on above: Performed By: #### C MP, TROPI, ALCO, CBCDIF #### [facility] [address] [place] [address] Urine PCP Not detected Normal None Detected [facility] Comment on above: Performed By: #### C MP, TROPI, ALCO, CBCDIF #### [facility] [address] [place] [address] Urine THC Not detected Normal None Detected [facility] Comment on above: Performed By: #### C MP, TROPI, ALCO, CBCDIF #### [facility] [address] [place] [address] COMMENT Test results are unconfirmed by this method and must not be used for non-medical purposes. Normal [facility] Comment on above: Result Comment: CUTOFF THRESHOLD FOR RESULT OF DETECTED : AMPHETAMINES >/=1000 ng/mL BARBITURATES >/=200 ng/mL BENZODIAZEPINES >/=200 ng/mL COCAINE >/=300 ng/mL OPIATES >/=300 ng/mL PCP >/=25 ng/mL THC >/=50 ng/mL Performed By: #### C MP, TROPI, ALCO, CBCDIF #### [facility] [address] [place] [address] Urine Amphetamines Not detected Normal None Detected [facility] Comment on above: Performed By: #### U DRSCR ####[facility] Phg34619 [place], [place] [phone] Urine Barbiturates Not detected Normal None Detected [facility] Comment on above: Performed By: #### U DRSCR ####[facility] Xaq43613 [place], [place] [phone] Urine Benzos Not detected Normal None Detected [facility] Comment on above: Performed By: #### U DRSCR ####[facility] Pgo93011 [facility] [place] [phone] Urine Cocaine Not detected Normal None Detected [facility] Comment on above: Performed By: #### U DRSCR ####[facility] Tyl93159 [facility] [place], [place] [phone] Urine Opiates Not detected Normal None Detected [facility] Comment on above: Performed By: #### U DRSCR ####[facility] Syq23088 [facility] [place] [phone] Urine PCP Not detected Normal None Detected [facility] Comment on above: Performed By: #### U DRSCR ####[facility] Iqx55937 [facility] [place], [place] [phone] Urine THC Not detected Normal None Detected [facility] Comment on above: Performed By: #### U DRSCR ####[facility] Puh09806 [facility] [place], [place] [phone] COMMENT Test results are unconfirmed by this method and must not be used for non-medical purposes. Normal [facility] Comment on above: Result Comment: CUTOFF THRESHOLD FOR RESULT OF DETECTED : AMPHETAMINES >/=1000 ng/mL BARBITURATES >/=200 ng/mL BENZODIAZEPINES >/=200 ng/mL COCAINE >/=300 ng/mL OPIATES >/=300 ng/mL PCP >/=25 ng/mL THC >/=50 ng/mL Performed By: #### U DRSCR ####[facility] Rly39508 [facility] [place] [phone] Alcoholon 04-21-2023 Ethanol [Mass/Vol] 275 mg/dL High 0.0-20.0 [facility] Comment on above: Performed By: #### C MP, EMILIAI, ALCO, CBCDIF #### [facility] [address] [place], [place] [phone] ED NOTEon 04-21-2023 ED NOTE HNO ID: [id number] Author: IRISH ESTEVEZ, RN Service: Nursing Author Type: Registered Nurse Type: ED Notes Filed: 04/20/2023 23:04 Note Text: Provider placed 5 sutures and patient tolerated well. Normal [facility] ED PROV NOTEon 04-21-2023 ED PROV NOTE HNO ID: [id number] Author: TOM FIGUEROA DO, PhD Service: ? Author Type: Physician Type: ED Provider Notes Filed: 04/21/2023 06:55 Note Text: ED Provider Note Patient Name: Mckinley Roman : 1985 SERVICE DATE: 04/20/23 History Patient presents with: Laceration 38-year-old male presents to the emergency department for laceration. Patient reports that he drank multiple cans of 4 [place] and fireball. He has history of alcohol abuse. Patient reports that he was trying to break into a shed. He states that he punched through a glass window and cut his arm. He denies numbness and tingling. He denies ongoing bleeding. He is unaware of his last tetanus shot. 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 No family history on file. Social History Tobacco Use Smoking status: Some Days Types: Cigarettes Smokeless tobacco: Never Vaping Use Vaping Use: current everyday user Substances: Nicotine, Flavoring Devices: Disposable Substance and Sexual Activity Alcohol use: Yes Comment: 3- fifths daily- whiskey Drug use: Yes Types: Cocaine, Amphetamines Sexual activity: Not on file ALLERGIES No Known Allergies Review of Systems Constitutional: Negative. HENT: Negative. Respiratory: Negative. Cardiovascular: Negative. Gastrointestinal: Negative. Musculoskeletal: Negative. Skin: Positive for wound. Neurological: Negative. Psychiatric/Behavioral: Negative. Alcohol intoxication Physical Exam Vitals [04/20/232117] BP Pulse Temp Temp src Resp SpO2 Weight Height 134/79 78 37.2 ?C (98.9 ?F) Temporal 20 98 % 108 kg (238 lb) -- Physical Exam Vitals and nursing note reviewed. Constitutional: General: He is not in acute distress. Appearance: He is obese. Comments: Intoxicated Cardiovascular: Rate and Rhythm: Normal rate and regular rhythm. Pulses: Normal pulses. Heart sounds: Normal heart sounds. Pulmonary: Effort: Pulmonary effort is normal. Breath sounds: Normal breath sounds. Abdominal: Palpations: Abdomen is soft. Tenderness: There is no abdominal tenderness. Musculoskeletal: General: Signs of injury present. Normal range of motion. Right forearm: Laceration present. Arms: Comments: 6 cm laceration of the lower arm. There is no active bleeding. No foreign bodies visualized on inspection. Skin: General: Skin is warm and dry. Capillary Refill: Capillary refill takes less than 2 seconds. Neurological: Mental Status: He is alert. Diagnostic Testing ED Labs Ordered and Reviewed ALCOHOL/ETHANOL BLD - Abnormal; Notable for the following components: Result Value Ref Range Ethanol 275 (*) 0.0 - 20.0 mg/dL All other components within normal limits LAC REPAIR Date/Time: 04/20/2023 10:02 PM Performed by: Benjamin Aguilar PA Authorized by: Benjamin Aguilar PA Risks discussed: Infection, pain, retained foreign body, tendon damage, poor cosmetic result, need for additional repair, nerve damage, poor wound healing and vascular damage Alternatives discussed: Referral, observation, no treatment and delayed treatment Anesthesia (see MAR for exact dosages): Anesthesia method: Local infiltration Local anesthetic: Lidocaine 1% WITH epi Laceration details: Location: Shoulder/arm Shoulder/arm location: R lower arm Length (cm): 6 Depth (mm): 1.5 Repair type: Repair type: Simple Pre-procedure details: Preparation: Patient was prepped and draped in usual sterile fashion Exploration: Hemostasis achieved with: Direct pressure Wound exploration: wound explored through full range of motion and entire depth of wound probed and visualized Wound extent: areolar tissue not violated, fascia not violated, no foreign body, no signs of injury, no nerve damage, no tendon damage, no underlying fracture and no vascular damage Contaminated: yes Treatment: Area cleansed with: Saline Amount of cleaning: Standard Irrigation solution: Sterile saline Irrigation volume: 100 Irrigation method: Syringe Foreign body removal: none. Skin repair: Repair method: Sutures Suture size: 4-0 Suture material: Nylon Suture technique: Simple interrupted Number of sutures: 5 Approximation: Approximation: Close Post-procedure details: Dressing: Non-adherent dressing Patient tolerance of procedure: Tolerated well, no immediate complications ED Course / Clinical Impression Clinical Impressions as of 04/20/23 2323 Laceration of right forearm, initial encounter Alcoholic intoxication without complication (HCC) Alcohol abuse MDM / Disposition / Plan 38-year-old male presents to the emergency department for laceration. Patient reports that he drank multiple cans of 4 [place] and fireball. He has history of alcohol abuse. Patient reports that he was trying to break into a shed. He (more content not included)... Normal [facility] ED NOTEon 04-20-2023 ED NOTE HNO ID: [id number] Author: IRISH ESTEVEZ RN Service: Nursing Author Type: Registered Nurse Type: ED Notes Filed: 04/20/2023 23:03 Note Text: Patient to ED via EMS ([facility]) patient was intoxicated states drank 3 750 bottles of fireball. Patient has open laceration to right forearm; bleeding is controlled. Wound cleansed. Patient tolerated cleansing well. Patient states he was in one shed and punched the other shed window. TDAP is not update. Normal [facility] ED NOTEon 04-09-2023 ED NOTE HNO ID: [id number] Author: IRISH ESTEVEZ RN Service: Nursing Author Type: Registered Nurse Type: ED Notes Filed: 04/08/2023 22:40 Note Text: Patient escorted out of ED in police handcuffs without any complications. Patient able to ambulate out of ED. Normal [facility] ED NOTE HNO ID: [id number] Author: IRISH ESTEVEZ RN Service: Nursing Author Type: Registered Nurse Type: ED Notes Filed: 04/08/2023 22:39 Note Text: Provider at bedside upon patients arrival. Patient answers all questions without any complications. Patient verbalized understanding. Patient able to ambulate without assistance. Normal [facility] ED NOTE HNO ID: [id number] Author: IRISH ESTEVEZ RN Service: Nursing Author Type: Registered Nurse Type: ED Notes Filed: 04/08/2023 22:37 Note Text: Patient to ED for being found at [facility]. Patient brought to ED via EMS ([facility] Patient was brought via squad for wellness exam. Patient cooperative with staff at this point. Patient escorted with [employer] for medical clearance. Patient voices no complaints at this time. Irish Estevez RN Normal [facility] ED PROV NOTEon 04-09-2023 ED PROV NOTE HNO ID: [id number] Author: GOSIA LARSON DO Service: ? Author Type: Physician Type: ED Provider Notes Filed: 04/08/2023 22:38 Note Text: ED Provider Note Patient Name: Mckinley Roman : 1985 SERVICE DATE: 04/08/23 History Patient presents with: Physical 38-year-old male comes back to emerged for less than 5 hours after being discharged he was set up to be transported to a detox center for which the patient then decided to leave today and walked out of the emergency department. He returns today after drinking alcohol. Patient has no complaints of chest pain abdominal pain nausea vomiting no fevers no chills no cough no shortness of breath. Patient not suicidal not homicidal. PAST MEDICAL HISTORY Diagnosis Date Alcohol abuse Psychiatric disorder History reviewed. No pertinent surgical history. No family history on file. Social History Tobacco Use Smoking status: Some Days Types: Cigarettes Smokeless tobacco: Never Vaping Use Vaping Use: current everyday user Substances: Nicotine, Flavoring Devices: Disposable Substance and Sexual Activity Alcohol use: Yes Comment: 3- fifths daily- whiskey Drug use: Yes Types: Cocaine, Amphetamines Sexual activity: Not on file ALLERGIES No Known Allergies Review of Systems Constitutional: Negative for diaphoresis, fatigue and fever. HENT: Negative. Eyes: Negative. Respiratory: Negative. Cardiovascular: Negative. Gastrointestinal: Negative for diarrhea, nausea, rectal pain and vomiting. Genitourinary: Negative. Musculoskeletal: Negative. Skin: Negative for rash and wound. Psychiatric/Behavioral: Positive for agitation. Negative for behavioral problems, decreased concentration, dysphoric mood, hallucinations, self-injury and suicidal ideas. The patient is not nervous/anxious and is not hyperactive. All other systems reviewed and are negative. Physical Exam Vitals BP Pulse Temp Temp src Resp SpO2 Weight Height -- -- -- -- -- -- -- -- Physical Exam Vitals and nursing note reviewed. Constitutional: Appearance: He is well-developed. HENT: Head: Normocephalic and atraumatic. Right Ear: External ear normal. Left Ear: External ear normal. Nose: Nose normal. Mouth/Throat: Mouth: Mucous membranes are moist. Pharynx: Oropharynx is clear. Eyes: Extraocular Movements: Extraocular movements intact. Conjunctiva/sclera: Conjunctivae normal. Pupils: Pupils are equal, round, and reactive to light. Cardiovascular: Rate and Rhythm: Normal rate and regular rhythm. Pulses: Normal pulses. Carotid pulses are 2+ on the right side and 2+ on the left side. Heart sounds: Normal heart sounds, S1 normal and S2 normal. No murmur heard. No gallop. Pulmonary: Effort: Pulmonary effort is normal. Breath sounds: Normal breath sounds. Abdominal: General: Bowel sounds are normal. Palpations: Abdomen is soft. Musculoskeletal: General: Normal range of motion. Cervical back: Normal range of motion and neck supple. Skin: General: Skin is warm and dry. Capillary Refill: Capillary refill takes less than 2 seconds. Neurological: General: No focal deficit present. Mental Status: He is alert and oriented to person, place, and time. Psychiatric: Attention and Perception: Attention and perception normal. Mood and Affect: Mood normal. Behavior: Behavior normal. Thought Content: Thought content does not include suicidal ideation. Thought content does not include suicidal plan. Diagnostic Testing ED Labs Ordered and Reviewed - No data to display Procedures ED Course / Clinical Impression Clinical Impressions as of 04/08/232232 Alcohol abuse MDM / Disposition / Plan MEDICAL DECISION MAKING Number and Complexity of Problems Differential Diagnosis: Alcohol abuse, alcohol intoxication MDM Data External documents reviewed previous discharge summary, prior admission notes, prior inpatient notes, and previous HANDP. My EKG interpretation: My CT interpretation: My X-ray interpretation: My Ultrasound interpretation: Tests considered but not ordered Decision rules/scores evaluated: Discussed with: Treatment and Disposition ED Course: Patient presents to our facility repeat offender alcoholic who drank heavily again today after being discharged from the emergency room less than 10 hours ago. At this point time patient has no medical complaints. There is no medical concerns. Patient is able to stand and ambulate. Patient has no medical complaints has normal vital signs. Patient discharged to police custody. Social determinants of health that impact treatment or disposition Shared decision making: Code status: Discussion with regarding code status. Code status determined as SIGNATURE: DO Dima TAYLOR THOMAS 04/08/232237 Normal [facility] Alcoholon 04-08-2023 Ethanol [Mass/Vol] mg/dL Normal 0.0-20.0 [facility] Comment on above: Result Comment: An E thanol result Performed By: #### A LCO ####[facility] [id number] [place], [place] [phone] COVID,FLU,RSV PCRon 04-08-19 Influenza A PCR Negative Normal Negative for Influenza A by RT PCR [facility] Comment on above: Performed By: #### A RPPCR ####[facility] [id number] [place], [place] [phone] Influenza B PCR Negative Normal Negative for Influenza B by RT PCR [facility] Comment on above: Performed By: #### A RPPCR ####[facility] [id number] [place], [place] [phone] RSV by PCR Negative Normal Negative for RSV viral RNA by PCR [facility] Comment on above: Performed By: #### A RPPCR ####[facility] [id number] [place], [place] [phone] SARS-CoV-2 (COVID-19) RNA KARIN+probe Ql (Unsp spec) Negative Normal Negative for COVID-19 (SARS-CoV2) by PCR [facility] Comment on above: Result Comment: This test has been authorized by the FDA under an Emergency Use Authorization (EUA). It has been validated in accordance with the FDA's Guidance Document Policy for Diagnostic Testing in Laboratories Certified to Perform High Complexity Testing under CLIA prior to EUA for Coronavirus Disease 2019 during the Public Health Emergency issued on March 29, 2019. Performed By: #### A RPPCR ####[facility] [id number] [place], [place] [phone] ED NOTEon 04-08-2023 ED NOTE HNO ID: [id number] Author: LALO SALMERON PCNA Service: Nursing Author Type: Behavioral Health Tech Type: ED Notes Filed: 04/08/2023 17:31 Note Text: Pt states he doesn't wannna be here and he wants to leave. I try to convince pt to stay I have a ride coming to take him to [facility]. He states he doesn't care he wants to leave. I called Dania at [facility] and told her pt left AMA. Normal [facility] ED NOTE HNO ID: [id number] Author: JOSE MORRIS RN Service: ? Author Type: Registered Nurse Type: ED Notes Filed: 04/08/2023 17:28 Note Text: Reviewed d/c instructions with pt. Pt states that they understand and have no questions regarding d/c and follow- up. Pt was advised to follow up with their PCP and return to ED if symptoms worsen prior to follow-up with PCP. Pt verbalized understanding. [facility] ED NOTE HNO ID: [id number] Author: JOSE MORRIS, JASVIR Service: ? Author Type: Registered Nurse Type: ED Notes Filed: 04/08/2023 17:29 Note Text: Pt changing back into clothing at this time [facility] ED NOTE HNO ID: [id number] Author: JOSE MORRIS RN Service: ? Author Type: Registered Nurse Type: ED Notes Filed: 04/08/2023 17:21 Note Text: Pt given belongings at this time per request and states he is ready to be discharged [facility] ED NOTE HNO ID: [id number] Author: JOSE MORRIS RN Service: ? Author Type: Registered Nurse Type: ED Notes Filed: 04/08/2023 17:27 Note Text: Pt made aware of taxi being delayed by 2 more hours until 7pm - pt states at this time that he does not want to continue waiting for ride and would like to be discharged at this time- Dr. Keen to be made aware [facility] ED NOTE HNO ID: [id number] Author: JOSE MORRIS RN Service: ? Author Type: Registered Nurse Type: ED Notes Filed: 04/08/2023 11:45 Note Text: Pt sitting up in bed with no difficulty - pt states someone has already taken his lunch order and that he would like more coffee- pt updated on plan of care at this time [facility] ED NOTE HNO ID: [id number] Author: RYLEE BROWN RN Service: ? Author Type: Registered Nurse Type: ED Notes Filed: 04/08/2023 09:51 Note Text: [facility] called and patient does have a bed. Please set up transportation as they are unable to do that at this time. Please call Dania at [facility] [phone] with an ETA when transportation is set up. [facility] ED NOTE HNO ID: [id number] Author: LALO SALMERON PCNA Service: Nursing Author Type: Behavioral Health Tech Type: ED Notes Filed: 04/08/2023 08:46 Note Text: Left voice mail for salas to call back [facility] ED NOTE HNO ID: [id number] Author: LALO SALMERON PCNA Service: Nursing Author Type: Behavioral Health Tech Type: ED Notes Filed: 04/08/2023 08:31 Note Text: Faxed over labs to [facility] ED NOTE HNO ID: [id number] Author: REYMUNDO HERNANDEZ RN Service: Nursing Author Type: Registered Nurse Type: ED Notes Filed: 04/08/2023 07:37 Note Text: Patient resting in bed, awake for blood draw, stated he still wants to go to detox facility. [facility] ED NOTE HNO ID: [id number] Author: IRISH ESTEVEZ, JASVIR Service: Nursing Author Type: Registered Nurse Type: ED Notes Filed: 04/07/2023 22:43 Note Text: Patient complains of anxiety. Provider notified. Patient requesting food- given turkey sandwich [facility] ED PROV NOTEon 04-08-2023 ED PROV NOTE HNO ID: [id number] Author: DIANA KEEN MD Service: Emergency Medicine Author Type: Physician Type: ED Provider Notes Filed: 04/08/2023 17:18 Note Text: ED Provider Note Patient Name: Mckinley Roman : 1985 SERVICE DATE: 04/07/23 History Patient presents with: Alcohol Problem HPI PAST MEDICAL HISTORY Diagnosis Date Alcohol abuse Psychiatric disorder History reviewed. No pertinent surgical history. No family history on file. Social History Tobacco Use Smoking status: Some Days Types: Cigarettes Smokeless tobacco: Never Vaping Use Vaping Use: current everyday user Substances: Nicotine, Flavoring Devices: Disposable Substance and Sexual Activity Alcohol use: Yes Comment: 3- fifths daily- whiskey Drug use: Yes Types: Cocaine, Amphetamines Sexual activity: Not on file ALLERGIES No Known Allergies Review of Systems Physical Exam Vitals [04/07/23 1447] BP Pulse Temp Temp src Resp SpO2 Weight Height 145/77 (!) 91 36.2 ?C (97.2 ?F) Temporal 16 96 % 104.3 kg (230 lb) 1.829 m (6') Physical Exam Diagnostic Testing ED Labs Ordered and Reviewed CBC + DIFF - Abnormal; Notable for the following components: Result Value Ref Range MCHC 37.2 (*) 31 - 37 g/dL Platelet Count 473 (*) 150 - 450 k/uL Neut% 38.6 (*) 40 - 70 % Lymph% 51.8 (*) 22 - 44 % Abs Lymph 5.01 (*) 1.0 - 4.0 k/uL All other components within normal limits ALCOHOL/ETHANOL BLD - Abnormal; Notable for the following components: Ethanol 361 (*) 0.0 - 20.0 mg/dL All other components within normal limits COMP METABOLIC PANEL - Abnormal; Notable for the following components: Chloride 109 (*) 98 - 107 mmol/L CO2 19 (*) 22 - 30 mmol/L Anion Gap 19 (*) 0 - 15 ALT 52 (*) 0 - 49 U/L All other components within normal limits URINALYSIS, DIPSTICK ONLY TOX SCREEN ROUT UR TSH BLD SALICYLATE BLD ACETAMINOPHEN/TYLENO ALCOHOL/ETHANOL BLD COVID AND INFLUENZA A/B AND RSV NAAT, EXPEDITED Procedures ED Course / Clinical Impression Clinical Impressions as of 04/08/23 1718 ETOH abuse COVID-19 test performed per [facility] [place] policy for suspected COVID community exposure. MDM / Disposition / Plan Management Radiology Reports No orders to display All Labs ED Labs Ordered and Reviewed CBC + DIFF - Abnormal Result Value WBC 9.67 RBC 5.83 Hemoglobin 17.5 Hematocrit 47.1 MCV 80.8 MCH 30.0 MCHC 37.2 (*) RDW-CV 13.7 Platelet Count 473 (*) NRBC 0 Neut% 38.6 (*) Abs Neut (ANC) 3.73 Lymph% 51.8 (*) Abs Lymph 5.01 (*) [place]% 8.2 Abs [place] 0.79 Eosin% 0.9 Abs Eosin 0.09 Baso% 0.3 Abs Baso 0.03 Immature Gran 0.20 ALCOHOL/ETHANOL BLD - Abnormal Ethanol 361 (*) COMP METABOLIC PANEL - Abnormal Glucose 101 BUN 20 Creatinine 0.96 eGFR-All Other Races >60 eGFR- >60 Sodium 143 Potassium 3.8 Chloride 109 (*) CO2 19 (*) Anion Gap 19 (*) AST 37 ALT 52 (*) Alkaline Phosphatase 120 Bilirubin, Total 0.5 Calcium 8.5 Protein, Total 8.1 Albumin 4.7 URINALYSIS, DIPSTICK ONLY Color Yellow Clarity Clear Specific [place], Ur 1.017 pH, Urine 5.0 Protein, Urine Negative Glucose, Urine Negative Ketones, Urine Negative Bilirubin, Urine Negative Hemoglobin/Blood,Ur Negative Nitrites Negative Urobilinogen <2.0 Leukest Negative Comment Value: MICROSCOPIC ANALYSIS NOT DONE ON URINES WITH NEGATIVE BIOCHEMICAL TESTS TOX SCREEN ROUT UR Amphetamines None Detected Barbiturates None Detected Benzodiazepines Urine None Detected Cocaine Urine None Detected Opiates None Detected Cannabinoids, Urine None Detected Phencyclidine None Detected Urine Comment Value: Test results are unconfirmed by this method and must not be used for non-medical purposes. TSH BLD TSH 0.814 SALICYLATE BLD Salicylate <1 ACETAMINOPHEN/TYLENO Acetaminophen <10 ALCOHOL/ETHANOL BLD Ethanol <10 COVID AND INFLUENZA A/B AND RSV NAAT, EXPEDITED Influenza A PCR Negative for Influenza A by RT PCR Influenza B PCR Negative for Influenza B by RT PCR COVID 19 Result [facility] Negative for COVID-19 (SARS-CoV2) by PCR RSV PCR Negative for RSV viral RNA by PCR Meds Given During Visit ED Medication Administration from 04/07/2023 1446 to 04/08/2023 1718 Date/Time Order Dose Route Action 04/07/2023 1953 EST LORazepam 2 mg injection (ATIVAN) 2 mg INTRAMUSCULAR Given 04/07/20232037 EST LORazepam 2 mg injection (ATIVAN) 2 mg INTRAMUSCULAR Given 04/07/20232054 EST nicotine 21 mg/24 hr 1 Patch (NICODERM) 1 Patch TRANSDERMAL Given 04/08/2023 1140 EST nicotine -- REMOVE patch -- OTHER Remvd Patch 04/08/2023 1142 EST nicotine - verify patch -- OTHER Patch Off 04/08/2023 1400 EST nicotine - verify patch -- OTHER Patch Off 04/07/2023 2132 EST buPROPion XL 300 mg tab(s) (WELLBUTRIN XL) 300 mg ORAL Given 04/08/2023 1004 EST buPROPion XL 300 mg tab(s) (WELLBUTRIN XL) 300 mg ORAL Given 04/07/2023 2132 EST thia (more content not included)... Normal [facility] Acetaminophenon 04-07-2023 Acetaminophen [Mass/Vol] ug/mL Normal 0-30 [facility] Comment on above: Performed By: #### C MP, TROPI, ALCO, CBCDIF #### [facility] [address] [place] [address] Alcoholon 04-07-2023 Ethanol [Mass/Vol] 361 mg/dL High 0.0-20.0 [facility] Comment on above: Performed By: #### C MP, TROPI, ALCO, CBCDIF #### [facility] [address] [place] [address] CBCDIFon 04-07-2023 Abs Baso 0.03 k/uL Normal 0-0.2 [facility] Comment on above: Performed By: #### C MP, TROPI, ALCO, CBCDIF #### [facility] [address] [place] [address] Abs [place] 0.79 k/uL Normal 0-0.8 [facility] Comment on above: Performed By: #### C MP, TROPI, ALCO, CBCDIF #### [facility] [address] [place] [address] Abs Neut 3.73 k/uL Normal 1.8-7.7 [facility] Comment on above: Performed By: #### C MP, TROPI, ALCO, CBCDIF #### [facility] [address] [place] [address] Basophils/100 WBC (Bld) 0.3 % Normal 0-1 [facility] Comment on above: Performed By: #### C MP, TROPI, ALCO, CBCDIF #### [facility] [address] [place] [address] Eosinophils (Bld) [#/Vol] 0.09 10*3/uL Normal 0-0.4 [facility] Comment on above: Performed By: #### C MP, TROPI, ALCO, CBCDIF #### [facility] [address] [facility] [place] [address] Eosinophils/100 WBC (Bld) 0.9 % Normal 0-4 [facility] Comment on above: Performed By: #### C MP, TROPI, ALCO, CBCDIF #### [facility] [address] [place] [address] Erythrocyte distribution width (RBC) [Ratio] 13.7 % Normal 11.5-14.5 [facility] Comment on above: Performed By: #### C MP, TROPI, ALCO, CBCDIF #### [facility] [address] [place] [address] Hematocrit (Bld) [Volume fraction] 47.1 % Normal 41.0-53.0 [facility] Comment on above: Performed By: #### C MP, TROPI, ALCO, CBCDIF #### [facility] [address] [place] [address] Hemoglobin (Bld) [Mass/Vol] 17.5 g/dL Normal 13.5-17.5 [facility] Comment on above: Performed By: #### C MP, TROPI, ALCO, CBCDIF #### [facility] [address] [place] [address] Immature Gran 0.20 % Normal 0-1.9 [facility] Comment on above: Performed By: #### C MP, TROPI, ALCO, CBCDIF #### [facility] [address] [place] [address] Lymphocytes (Bld) [#/Vol] 5.01 10*3/uL High 1.0-4.0 [facility] Comment on above: Performed By: #### C MP, TROPI, ALCO, CBCDIF #### [facility] [address] [place] [address] Lymphocytes/100 WBC (Bld) 51.8 % High 22-44 [facility] Comment on above: Performed By: #### C MP, TROPI, ALCO, CBCDIF #### [facility] [address] [place] [address] MCH 30.0 pG Normal 26-34 [facility] Comment on above: Performed By: #### C MP, TROPI, ALCO, CBCDIF #### [facility] [address] [place] [address] MCHC (RBC) [Mass/Vol] 37.2 g/dL High 31-37 [facility] Comment on above: Performed By: #### C MP, TROPI, ALCO, CBCDIF #### [facility] [address] [place] [address] MCV (RBC) [Entitic vol] 80.8 fL Normal 80-100 [facility] Comment on above: Performed By: #### C MP, TROPI, ALCO, CBCDIF #### [facility] [address] [place] [address] Monocytes/100 WBC (Bld) 8.2 % Normal 4-12 [facility] Comment on above: Performed By: #### C MP, TROPI, ALCO, CBCDIF #### [facility] [address] [place] [address] Neutrophils/100 WBC (Bld) 38.6 % Low 40-70 [facility] Comment on above: Performed By: #### C MP, TROPI, ALCO, CBCDIF #### [facility] [address] [place] [address] NRBCs 0 /100 WBC Normal 0-0.9 [facility] Comment on above: Performed By: #### C MP, TROPI, ALCO, CBCDIF #### [facility] [address] [place] [address] Platelets (Bld) [#/Vol] 473 10*3/uL High 150-450 [facility] Comment on above: Performed By: #### C MP, TROPI, ALCO, CBCDIF #### [facility] [address] [place] [address] RBC (Bld) [#/Vol] 5.83 10*6/uL Normal 4.50-5.90 [facility] Comment on above: Performed By: #### C MP, TROPI, ALCO, CBCDIF #### [facility] [address] [place] [address] WBC (Bld) [#/Vol] 9.67 10*3/uL Normal 4.5-11.0 [facility] Comment on above: Performed By: #### C MP, TROPI, ALCO, CBCDIF #### [facility] [address] [place] [address] Comp Metabolic Panelon 04-07 Albumin [Mass/Vol] 4.7 g/dL Normal 3.5-5.0 [facility] Comment on above: Performed By: #### C MP, TROPI, ALCO, CBCDIF #### [facility] [address] [place] [address] Alkaline Phos 120 U/L Normal 38-125 [facility] Comment on above: Performed By: #### C MP, TROPI, ALCO, CBCDIF #### [facility] [address] [place] [address] ALT [Catalytic activity/Vol] 52 U/L High 0-49 [facility] Comment on above: Performed By: #### C MP, TROPI, ALCO, CBCDIF #### [facility] [address] [place] [address] Anion gap [Moles/Vol] 19 mmol/L High 0-15 [facility] Comment on above: Performed By: #### C MP, TROPI, ALCO, CBCDIF #### [facility] [address] [place] [address] AST [Catalytic activity/Vol] 37 U/L Normal 17-59 [facility] Comment on above: Performed By: #### C MP, TROPI, ALCO, CBCDIF #### [facility] [address] [place] [address] Bilirubin [Mass/Vol] 0.5 mg/dL Normal 0.2-1.3 [facility] Comment on above: Performed By: #### C MP, TROPI, ALCO, CBCDIF #### [facility] [address] [place] [address] Calcium [Mass/Vol] 8.5 mg/dL Normal 8.4-10.2 [facility] Comment on above: Performed By: #### C MP, TROPI, ALCO, CBCDIF #### [facility] [address] [place] [address] Chloride [Moles/Vol] 109 mmol/L High 98-107 [facility] Comment on above: Performed By: #### C MP, TROPI, ALCO, CBCDIF #### [facility] [address] [place] [address] CO2 [Moles/Vol] 19 mmol/L Low 22-30 [facility] Comment on above: Performed By: #### C MP, TROPI, ALCO, CBCDIF #### [facility] [address] [place] [address] Creatinine [Mass/Vol] 0.96 mg/dL Normal 0.66-1.25 [facility] Comment on above: Performed By: #### C MP, TROPI, ALCO, CBCDIF #### [facility] [address] [place] [address] eGFR Amer >60 Normal >60 [facility] Comment on above: Result Comment: MDRD calculation used for eGFR results. Performed By: #### C MP, TROPI, ALCO, CBCDIF #### [facility] [address] [place] [address] eGFR non Am >60 Normal >60 [facility] Comment on above: Performed By: #### C MP, TROPI, ALCO, CBCDIF #### [facility] [address] [place] [address] Glucose [Mass/Vol] 101 mg/dL Normal 74-106 [facility] Comment on above: Performed By: #### C MP, TROPI, ALCO, CBCDIF #### [facility] [address] [place] [address] Potassium [Moles/Vol] 3.8 mmol/L Normal 3.5-5.1 [facility] Comment on above: Performed By: #### C MP, TROPI, ALCO, CBCDIF #### [facility] [address] [place] [address] Protein [Mass/Vol] 8.1 g/dL Normal 6.2-8.2 [facility] Comment on above: Performed By: #### C MP, TROPI, ALCO, CBCDIF #### [facility] [address] [place] [address] Sodium [Moles/Vol] 143 mmol/L Normal 137-145 [facility] Comment on above: Performed By: #### C MP, TROPI, ALCO, CBCDIF #### [facility] [address] [place] [address] Urea nitrogen [Mass/Vol] 20 mg/dL Normal 9-20 [facility] Comment on above: Performed By: #### C MP, TROPI, ALCO, CBCDIF #### [facility] [address] [place] [address] ED NOTEon 04-07-2023 ED NOTE HNO ID: [id number] Author: IRISH ESTEVEZ RN Service: Nursing Author Type: Registered Nurse Type: ED Notes Filed: 04/07/2023 20:33 Note Text: Patient complains of worsening anxiety. Provider notified. Patient is willing to cooperate with staff at this time. Irish Estevez RN [facility] ED NOTE HNO ID: [id number] Author: LUCIANA IZQUIERDO RN Service: ? Author Type: Registered Nurse Type: ED Notes Filed: 04/07/2023 19:47 Note Text: [facility] fax number: [phone] [facility] in [place], [place] Fax in AM ETOH level [facility] ED NOTE HNO ID: [id number] Author: LUCIANA IZQUIERDO RN Service: ? Author Type: Registered Nurse Type: ED Notes Filed: 04/07/2023 19:36 Note Text: Patient talking with [facility] [phone]. Possible admission in the morning when alcohol level is under 200. Admissions only until 10pm. [facility] ED NOTE HNO ID: [id number] Author: LALO SALMERON PCNA Service: Nursing Author Type: Behavioral Health Tech Type: ED Notes Filed: 04/07/2023 18:53 Note Text: Left voice mail for [facility] to call me back [facility] ED NOTE HNO ID: [id number] Author: LUCIANA IZQUIERDO RN Service: ? Author Type: Registered Nurse Type: ED Notes Filed: 04/07/2023 18:50 Note Text: Provided dinner tray for patient. [facility] ED NOTE HNO ID: [id number] Author: IRISH ESTEVEZ RN Service: Nursing Author Type: Registered Nurse Type: ED Notes Filed: 04/07/2023 18:41 Note Text: Patient requesting to go home. Patient informed alcohol level elevated and unable to be discharged at this time. Patient becomes loud and states that this is bullshit and patient is being held against his will. [facility] ED NOTE HNO ID: [id number] Author: LALO SALMERON PCNA Service: Nursing Author Type: Behavioral Health Tech Type: ED Notes Filed: 04/07/2023 18:22 Note Text: Pt is speaking with Julia from [facility]. [facility] ED NOTE HNO ID: [id number] Author: ELEAZAR MEADOWS RN Service: ? Author Type: Registered Nurse Type: ED Notes Filed: 04/07/2023 16:13 Note Text: Patient observed sleeping [facility] ED NOTE HNO ID: [id number] Author: ELEAZAR MEADOWS RN Service: ? Author Type: Registered Nurse Type: ED Notes Filed: 04/07/2023 16:13 Note Text: Patient unable to urinate at this time, [facility] ED NOTE HNO ID: [id number] Author: ELEAZAR MEADOWS RN Service: ? Author Type: Registered Nurse Type: ED Notes Filed: 04/07/2023 15:32 Note Text: Labs collected and sent Patient unable to urinate at this time [facility] ED NOTE HNO ID: [id number] Author: ELEAZAR MEADOWS RN Service: ? Author Type: Registered Nurse Type: ED Notes Filed: 04/07/2023 15:32 Note Text: Pt arrived [facility] parking lot. Ems reports patient intoxicated. [facility] ED PROV NOTEon 04-07-2023 ED PROV NOTE HNO ID: [id number] Author: TOM FIGUEROA DO, PhD Service: ? Author Type: Physician Type: ED Provider Notes Filed: 04/08/2023 06:17 Note Text: ED CONTINUATION OF CARE NOTE Code Status: Full Code Assumed care from:Dr. Martinez Presentation / Findings / Interventions / Plan / Items to Follow Up: Dip Medical Decision Making Patient presents for alcohol intoxication. Were able to locate a [facility] do not take admissions after 10 PM and alcohol must be below 200 therefore the patient likely will not be of this alcohol level by the time their admissions process closes for this evening he will have to stay with us through the night and reassess in the morning they will likely take him in the morning Medicated with 2 mg of IM Ativan as the patient is restless and frequently walking around the emergency department Patient has been anxious walking around the department despite multiple request by staff to remain in his hallway chair. He has been given multiple doses of benzodiazepine and we are to decision point at this juncture as the patient has been here multiple times for similar presentation usually ady and then leaves. Today was able to get his verbal commitment to seek ongoing treatment Patient is agreeable to medication and I am agreeable to medicating his anxiety. He continues is medication regimen including BuSpar Wellbutrin and Remeron for sleep Ultimately the patient was able to be placed in a bed remained on monitoring and slept for several hours overnight. We were able to secure SIGNATURE: Tom Figueroa DO, PhD PATIENT NAME: Mckinley Roman DATE: April 07, 2023 TIME: 7:43 PM PAGER/CONTACT #: TOM FIGUEROA 04/08/23 0617 [facility] ED PROV NOTE HNO ID: [id number] Author: PALOMO MARTINEZ DO Service: Emergency Medicine Author Type: Physician Type: ED Provider Notes Filed: 04/07/2023 18:20 Note Text: ED Provider Note Patient Name: Mckinley Roman : 1985 SERVICE DATE: 04/07/23 History Patient presents with: Alcohol Problem Patient is a 38-year-old male presenting to the emergency room for acute alcohol intoxication, psychiatric disorder and chronic alcohol abuse. Last alcohol intake was about 10 minutes ago, patient has been to previous rehab as well. Denies any recent illness patient apparently stole alcohol, please report was called and patient was brought in by EMS to the ER because he wanted help with his alcohol use. PAST MEDICAL HISTORY Diagnosis Date Alcohol abuse Psychiatric disorder History reviewed. No pertinent surgical history. No family history on file. Social History Tobacco Use Smoking status: Some Days Types: Cigarettes Smokeless tobacco: Never Vaping Use Vaping Use: current everyday user Substances: Nicotine, Flavoring Devices: Disposable Substance and Sexual Activity Alcohol use: Yes Comment: 3- fifths daily- whiskey Drug use: Yes Types: Cocaine, Amphetamines Sexual activity: Not on file ALLERGIES No Known Allergies Review of Systems Unable to perform ROS: Other (Intoxicated) HENT: Negative for congestion. Gastrointestinal: Positive for vomiting. Negative for abdominal pain and nausea. Allergic/Immunologic: Negative for environmental allergies, food allergies and immunocompromised state. Psychiatric/Behavioral: Reported alcohol problem Physical Exam Vitals [04/07/23 1447] BP Pulse Temp Temp src Resp SpO2 Weight Height 145/77 (!) 91 36.2 ?C (97.2 ?F) Temporal 16 96 % 104.3 kg (230 lb) 1.829 m (6') Physical Exam Vitals and nursing note reviewed. Constitutional: Appearance: Normal appearance. Comments: Intoxicated HENT: Head: Normocephalic and atraumatic. Nose: Nose normal. Mouth/Throat: Mouth: Mucous membranes are moist. Eyes: Extraocular Movements: Extraocular movements intact. Conjunctiva/sclera: Conjunctivae normal. Cardiovascular: Rate and Rhythm: Regular rhythm. Tachycardia present. Pulses: Normal pulses. Heart sounds: Normal heart sounds. Pulmonary: Effort: Pulmonary effort is normal. Breath sounds: Normal breath sounds. Abdominal: General: Abdomen is flat. Palpations: Abdomen is soft. Musculoskeletal: General: Normal range of motion. Cervical back: Normal range of motion and neck supple. Skin: General: Skin is warm. Neurological: General: No focal deficit present. Mental Status: He is alert. Mental status is at baseline. Psychiatric: Comments: Tearful, intoxicated Diagnostic Testing ED Labs Ordered and Reviewed - No data to display Procedures ED Course / Clinical Impression MDM / Disposition / Plan Patient is a 38-year-old male with history of alcoholism, previous alcohol rehab who presented to the emergency room with acute alcohol intoxication and wanting to go back to rehab. Patient denies any other complaints. Upon arrival he is intoxicated and tearful, cooperative, patient has no HI, SI. blood work was ordered, showed alcohol level 361, AST was 52, otherwise unremarkable exam.. Patient otherwise was hemodynamically stable, and medically cleared. Once patient's alcohol decreases below 200 patient will be able to be transferred to rehab center for further treatment. Pt will be signed to the oncoming provider pending recheck of alcohol level and possible transfer for alcohol treatment. History and Record Review Clinical information obtained from an independent historian. History obtained from or confirmed by: EMS personnel and see ED course. Differential Diagnoses - Acute alcohol intoxication - Dehydration Management All Labs ED Labs Ordered and Reviewed CBC + DIFF - Abnormal Result Value WBC 9.67 RBC 5.83 Hemoglobin 17.5 Hematocrit 47.1 MCV 80.8 MCH 30.0 MCHC 37.2 (*) RDW-CV 13.7 Platelet Count 473 (*) NRBC 0 Neut% 38.6 (*) Abs Neut (ANC) 3.73 Lymph% 51.8 (*) Abs Lymph 5.01 (*) [place]% 8.2 Abs [place] 0.79 Eosin% 0.9 Abs Eosin 0.09 Baso% 0.3 Abs Baso 0.03 Immature Gran 0.20 ALCOHOL/ETHANOL BLD - Abnormal Ethanol 361 (*) COMP METABOLIC PANEL - Abnormal Glucose 101 BUN 20 Creatinine 0.96 eGFR-All Other Races >60 eGFR- >60 Sodium 143 Potassium 3.8 Chloride 109 (*) CO2 19 (*) Anion Gap 19 (*) AST 37 ALT 52 (*) Alkaline Phosphatase 120 Bilirubin, Total 0.5 Calcium 8.5 Protein, Total 8.1 Albumin 4.7 TSH BLD TSH 0.814 SALICYLATE BLD Salicylate <1 ACETAMINOPHEN/TYLENO Acetaminophen <10 URINALYSIS, DIPSTICK ONLY TOX SCREEN ROUT UR Meds Given During Visit ED Medication Administration from 04/07/2023 1446 to 04/07/2023 1819 None Re-evaluation vital signs in acceptable r (more content not included)... Normal [facility] Salicylateon 04-07-2023 Salicylate <1 Normal 0-20 [facility] Comment on above: Performed By: #### C MP, TROPI, ALCO, CBCDIF #### [facility] [address] [place], [place] [id number] TSHon 04-07-2023 TSH Qn 0.814 m[IU]/L Normal 0.465-4.680 [facility] Comment on above: Result Comment: Biot in (Vitamin B7) is known to potentially cause an interfering NEGATIVE bias with this assay. If this result does not correlate clinically with your patient's presentation, it is suggested that Biotin use be discontinued for 2 days prior to re-testing. Performed By: #### C MP, TROPI, ALCO, CBCDIF #### [facility] [address] [place], [place] [id number] Urinalysison 04-07-2023 Bilirubin Ql (U) Negative Normal Negative [facility] Comment on above: Performed By: #### C MP, CBCDIF, ALCO #### [facility] [address] [facility] [place] [address] Clarity (U) Clear Normal Clear [facility] Comment on above: Performed By: #### C MP, CBCDIF, ALCO #### [facility] [address] [facility] [place] [address] Color (U) Yellow Normal Yellow [facility] Comment on above: Performed By: #### C MP, CBCDIF, ALCO #### [facility] [address] [place] [address] Comments MICROSCOPIC ANALYSIS NOT DONE ON URINES WITH NEGATIVE BIOCHEMICAL TESTS Normal [facility] Comment on above: Performed By: #### C MP, CBCDIF, ALCO #### [facility] [address] [place] [address] Glucose Ql (U) Negative Normal Negative [facility] Comment on above: Performed By: #### C MP, CBCDIF, ALCO #### [facility] [address] [place] [address] Hemoglobin/Blood Negative Normal Negative [facility] Comment on above: Performed By: #### C MP, CBCDIF, ALCO #### [facility] [address] [place] [address] Ketone Negative Normal Negative [facility] Comment on above: Performed By: #### C MP, CBCDIF, ALCO #### [facility] [address] [facility] [place] [address] Leukest Negative Normal Negative [facility] Comment on above: Performed By: #### C MP, CBCDIF, ALCO #### [facility] [address] [facility] [address] Nitrite Ql (U) Negative Normal Negative [facility] Comment on above: Performed By: #### C MP, CBCDIF, ALCO #### [facility] [address] [place] [address] pH (U) 5.0 [pH] Normal 5-7 [facility] Comment on above: Performed By: #### C MP, CBCDIF, ALCO #### [facility] [address] [place] [address] Protein Ql (U) Negative Normal Negative [facility] Comment on above: Performed By: #### C MP, CBCDIF, ALCO #### [facility] [address] [place] [address] Urine Spec [place] 1.017 Normal 1.005-1.030 [facility] Comment on above: Performed By: #### C MP, CBCDIF, ALCO #### [facility] [address] [place] [address] Urobilinogen (U) [Mass/Vol] mg/dL Normal 0.0-1.0 [facility] Comment on above: Performed By: #### C MP, CBCDIF, ALCO #### [facility] [address] [place] [address] Urine Drug Screenon 04-07-19 24 Urine Amphetamines Not detected Normal None Detected [facility] Comment on above: Performed By: #### C MP, TROPI, ALCO, CBCDIF #### [facility] [address] [place] [address] Urine Barbiturates Not detected Normal None Detected [facility] Comment on above: Performed By: #### C MP, TROPI, ALCO, CBCDIF #### [facility] [address] [place] [address] Urine Benzos Not detected Normal None Detected [facility] Comment on above: Performed By: #### C MP, TROPI, ALCO, CBCDIF #### [facility] [address] [place] [address] Urine Cocaine Not detected Normal None Detected [facility] Comment on above: Performed By: #### C MP, TROPI, ALCO, CBCDIF #### [facility] [address] [place] [address] Urine Opiates Not detected Normal None Detected [facility] Comment on above: Performed By: #### C MP, TROPI, ALCO, CBCDIF #### [facility] [address] [place] [address] Urine PCP Not detected Normal None Detected [facility] Comment on above: Performed By: #### C MP, TROPI, ALCO, CBCDIF #### [facility] [address] [place] [address] Urine THC Not detected Normal None Detected [facility] Comment on above: Performed By: #### C MP, TROPI, ALCO, CBCDIF #### [facility] [address] [place] [address] COMMENT Test results are unconfirmed by this method and must not be used for non-medical purposes. Normal [facility] Comment on above: Result Comment: CUTOFF THRESHOLD FOR RESULT OF DETECTED : AMPHETAMINES >/=1000 ng/mL BARBITURATES >/=200 ng/mL BENZODIAZEPINES >/=200 ng/mL COCAINE >/=300 ng/mL OPIATES >/=300 ng/mL PCP >/=25 ng/mL THC >/=50 ng/mL Performed By: #### C MP, TROPI, ALCO, CBCDIF #### [facility] [address] [place] [address] ED NOTEon 04-06-2023 ED NOTE HNO ID: [id number] Author: LYLY ALVAREZ RN Service: ? Author Type: Registered Nurse Type: ED Notes Filed: 04/05/2023 23:42 Note Text: Gait brisk and steady on discharge Normal [facility] ED NOTE HNO ID: [id number] Author: LYLY ALVAREZ RN Service: ? Author Type: Registered Nurse Type: ED Notes Filed: 04/05/2023 23:41 Note Text: Discharge instructions given with resource packet- patient yelled : dumb bitch - tossed his papers onto the floor and briskly left the ED- [facility] ED NOTE HNO ID: [id number] Author: LYLY ALVAREZ, RN Service: ? Author Type: Registered Nurse Type: ED Notes Filed: 04/05/2023 23:29 Note Text: Patient awake, yelling out and cussing- Dr Larson at bedside [facility] ED NOTE HNO ID: [id number] Author: LYLY ALVAREZ, JASVIR Service: ? Author Type: Registered Nurse Type: ED Notes Filed: 04/05/2023 23:16 Note Text: Asleep on bed [facility] ED NOTE HNO ID: [id number] Author: BLACK HEAD RN Service: ? Author Type: Registered Nurse Type: ED Notes Filed: 04/05/2023 22:27 Note Text: Patient to ED via EMS ([facility] Patient had alcohol on premises of [facility]. [employer] called EMS due to patient informing [facility] he wants assistance with rehab. Black Head RN [facility] ED PROV NOTEon 04-06-2023 ED PROV NOTE HNO ID: [id number] Author: GOSIA LARSON DO Service: ? Author Type: Physician Type: ED Provider Notes Filed: 04/05/2023 23:33 Note Text: ED Provider Note Patient Name: Mckinley Roman : 1985 SERVICE DATE: 04/05/23 History Patient presents with: Intoxication 38-year-old male presents to the emergency department with complaints of wanting assist to get into alcohol rehab. He was just at [place] [address] 3 days ago and then left and walked out because he wanted to drink again. Patient was at [facility] today drinking all day and was on the premises was told he was trespassing [employer] came and he told the surgical scrub technologist that he wanted to be brought to the emergency room for assistance getting into drug rehab. He has no current complaints. PAST MEDICAL HISTORY Diagnosis Date Alcohol abuse Psychiatric disorder History reviewed. No pertinent surgical history. No family history on file. Social History Tobacco Use Smoking status: Some Days Types: Cigarettes Smokeless tobacco: Never Vaping Use Vaping Use: current everyday user Substances: Nicotine, Flavoring Devices: Disposable Substance and Sexual Activity Alcohol use: Yes Comment: 3- fifths daily- whiskey Drug use: Yes Types: Cocaine, Amphetamines Sexual activity: Not on file ALLERGIES No Known Allergies Review of Systems Constitutional: Negative for fatigue. HENT: Negative. Eyes: Negative. Respiratory: Negative for shortness of breath. Cardiovascular: Negative for chest pain. Gastrointestinal: Negative for abdominal pain, nausea and vomiting. Genitourinary: Negative. Musculoskeletal: Negative. Skin: Negative. Psychiatric/Behavioral: Positive for agitation. Negative for behavioral problems, dysphoric mood, hallucinations, self-injury, sleep disturbance and suicidal ideas. All other systems reviewed and are negative. Physical Exam Vitals [04/05/232226] BP Pulse Temp Temp src Resp SpO2 Weight Height 133/87 68 36.6 ?C (97.8 ?F) Temporal 20 100 % 105.2 kg (232 lb) -- Physical Exam Vitals and nursing note reviewed. Constitutional: Appearance: He is well-developed. He is not ill-appearing or diaphoretic. HENT: Head: Normocephalic and atraumatic. Right Ear: External ear normal. Left Ear: External ear normal. Nose: Nose normal. Eyes: Conjunctiva/sclera: Conjunctivae normal. Pupils: Pupils are equal, round, and reactive to light. Cardiovascular: Rate and Rhythm: Normal rate and regular rhythm. Heart sounds: Normal heart sounds. Pulmonary: Effort: Pulmonary effort is normal. Breath sounds: Normal breath sounds. Abdominal: General: Bowel sounds are normal. Palpations: Abdomen is soft. Musculoskeletal: General: Normal range of motion. Cervical back: Normal range of motion and neck supple. Skin: General: Skin is warm and dry. Neurological: Mental Status: He is alert and oriented to person, place, and time. Diagnostic Testing ED Labs Ordered and Reviewed - No data to display Procedures ED Course / Clinical Impression ED Course as of 04/05/23 2332 Gosia Larson's Documentation Mon Apr 05, 2023 2316 Patient has had 9 visits this month for alcohol abuse. 2330 Patient now swearing cussing at staff saying he does not want to be here he does not know why he is here. Patient clinically sober able to ambulate without difficulty. Clinical Impressions as of 04/05/23 2332 Alcohol abuse MDM / Disposition / Plan MEDICAL DECISION MAKING Number and Complexity of Problems Differential Diagnosis: Malingering, alcohol abuse MDM Data External documents reviewed previous discharge summary, prior admission notes, and prior inpatient notes. My EKG interpretation: My CT interpretation: My X-ray interpretation: My Ultrasound interpretation: Tests considered but not ordered Decision rules/scores evaluated: Discussed with: Treatment and Disposition ED Course: Patient presents with request to be placed in likely secondary to EtOH intoxication. Patient maintained his airway, and metabolized to sobriety and not altered. Patient with no head trauma to suggest intracranial hemorrhage, no overt signs of opioid intoxication or coingestion. No infectious symptoms and afebrile so doubt sepsis. Exam prior to discharge shows no evidence of Wernicke's encephalopathy. Patient with no signs of any medical emergencies at this time. Patient observed for until clinically sober. He is becoming agitated irritated combative and yelling at staff. Patient has been offered alcohol rehab numerous times. He is just left alcohol rehab 2 days ago. No signs or symptoms of alcohol withdrawal while in the emergency department. Social determinants of health that impact treatment or disposition Shared decision making: Code status: Discussion with regarding code status. Code status determined as Disposition The patient was discharged. Admission considered: See MDM (more content not included)... Normal [facility] Alcoholon 03-18-2023 Ethanol [Mass/Vol] 318 mg/dL High 0.0-20.0 [facility] Comment on above: Performed By: #### C MP, CBCDIF, ALCO #### [facility] [address] [place] [address] Ethanol [Mass/Vol] 230 mg/dL High 0.0-20.0 [facility] Comment on above: Performed By: #### C MP, CBCDIF, ALCO #### [facility] [address] [place] [address] Ethanol [Mass/Vol] 298 mg/dL High 0.0-20.0 [facility] Comment on above: Performed By: #### C MP, TROPI, ALCO, CBCDIF #### [facility] [address] [place] [address] CBCDIFon 03-18-2023 Abs Baso 0.03 k/uL Normal 0-0.2 [facility] Comment on above: Performed By: #### C MP, CBCDIF, ALCO #### [facility] [address] [place] [address] Abs [place] 0.71 k/uL Normal 0-0.8 [facility] Comment on above: Performed By: #### C MP, CBCDIF, ALCO #### [facility] [address] [place] [address] Abs Neut 4.54 k/uL Normal 1.8-7.7 [facility] Comment on above: Performed By: #### C MP, CBCDIF, ALCO #### [facility] [address] [place] [address] Basophils/100 WBC (Bld) 0.4 % Normal 0-1 [facility] Comment on above: Performed By: #### C MP, CBCDIF, ALCO #### [facility] [address] [place] [address] Eosinophils (Bld) [#/Vol] 0.06 10*3/uL Normal 0-0.4 [facility] Comment on above: Performed By: #### C MP, CBCDIF, ALCO #### [facility] [address] [place] [address] Eosinophils/100 WBC (Bld) 0.8 % Normal 0-4 [facility] Comment on above: Performed By: #### C MP, CBCDIF, ALCO #### [facility] [address] [place] [address] Erythrocyte distribution width (RBC) [Ratio] 13.2 % Normal 11.5-14.5 [facility] Comment on above: Performed By: #### C MP, CBCDIF, ALCO #### [facility] [address] [place] [address] Hematocrit (Bld) [Volume fraction] 42.4 % Normal 41.0-53.0 [facility] Comment on above: Performed By: #### C MP, CBCDIF, ALCO #### [facility] [address] [place] [address] Hemoglobin (Bld) [Mass/Vol] 15.4 g/dL Normal 13.5-17.5 [facility] Comment on above: Performed By: #### C MP, CBCDIF, ALCO #### [facility] [address] [place] [address] Immature Gran 0.50 % Normal 0-1.9 [facility] Comment on above: Performed By: #### C MP, CBCDIF, ALCO #### [facility] [address] [place] [address] Lymphocytes (Bld) [#/Vol] 2.31 10*3/uL Normal 1.0-4.0 [facility] Comment on above: Performed By: #### C MP, CBCDIF, ALCO #### [facility] [address] [place] [address] Lymphocytes/100 WBC (Bld) 30.0 % Normal 22-44 [facility] Comment on above: Performed By: #### C MP, CBCDIF, ALCO #### [facility] [address] [place] [address] MCH 29.8 pG Normal 26-34 [facility] Comment on above: Performed By: #### C MP, CBCDIF, ALCO #### [facility] [address] [place] [address] MCHC (RBC) [Mass/Vol] 36.3 g/dL Normal 31-37 [facility] Comment on above: Performed By: #### C MP, CBCDIF, ALCO #### [facility] [address] [place] [address] MCV (RBC) [Entitic vol] 82.0 fL Normal 80-100 [facility] Comment on above: Performed By: #### C MP, CBCDIF, ALCO #### [facility] [address] [place] [address] Monocytes/100 WBC (Bld) 9.2 % Normal 4-12 [facility] Comment on above: Performed By: #### C MP, CBCDIF, ALCO #### [facility] [address] [place] [address] Neutrophils/100 WBC (Bld) 59.1 % Normal 40-70 [facility] Comment on above: Performed By: #### C MP, CBCDIF, ALCO #### [facility] [address] [place] [address] NRBCs 0 /100 WBC Normal 0-0.9 [facility] Comment on above: Performed By: #### C MP, CBCDIF, ALCO #### [facility] [address] [place] [address] Platelets (Bld) [#/Vol] 291 10*3/uL Normal 150-450 [facility] Comment on above: Performed By: #### C MP, CBCDIF, ALCO #### [facility] [address] [place] [address] RBC (Bld) [#/Vol] 5.17 10*6/uL Normal 4.50-5.90 [facility] Comment on above: Performed By: #### C MP, CBCDIF, ALCO #### [facility] [address] [facility] [address] WBC (Bld) [#/Vol] 7.69 10*3/uL Normal 4.5-11.0 [facility] Comment on above: Performed By: #### C MP, CBCDIF, ALCO #### [facility] [address] [place] [address] COVID,FLU,RSV PCRon 03-18-19 Influenza A PCR Negative Normal Negative for Influenza A by RT PCR [facility] Comment on above: Performed By: #### C MP, TROPI, ALCO, CBCDIF #### [facility] [address] [place], [place] [address] Influenza B PCR Negative Normal Negative for Influenza B by RT PCR [facility] Comment on above: Performed By: #### C MP, TROPI, ALCO, CBCDIF #### [facility] [address] [place], [place] [address] RSV by PCR Negative Normal Negative for RSV viral RNA by PCR [facility] Comment on above: Performed By: #### C MP, TROPI, ALCO, CBCDIF #### [facility] [address] [place], [place] [address] SARS-CoV-2 (COVID-19) RNA KARIN+probe Ql (Unsp spec) Negative Normal Negative for COVID-19 (SARS-CoV2) by PCR [facility] Comment on above: Result Comment: This test has been authorized by the FDA under an Emergency Use Authorization (EUA). It has been validated in accordance with the FDA's Guidance Document Policy for Diagnostic Testing in Laboratories Certified to Perform High Complexity Testing under CLIA prior to EUA for Coronavirus Disease 2019 during the Public Health Emergency issued on March 29, 2019. Performed By: #### C MP, TROPI, ALCO, CBCDIF #### [facility] [address] [place], [place] [id number] Comp Metabolic Panelon 03-18 Albumin [Mass/Vol] 4.1 g/dL Normal 3.5-5.0 [facility] Comment on above: Performed By: #### C MP, CBCDIF, ALCO #### [facility] [address] [place], [place] [address] Alkaline Phos 90 U/L Normal 38-125 [facility] Comment on above: Performed By: #### C MP, CBCDIF, ALCO #### [facility] [address] [place] [address] ALT [Catalytic activity/Vol] 88 U/L High 0-49 [facility] Comment on above: Performed By: #### C MP, CBCDIF, ALCO #### [facility] [address] [place] [address] Anion gap [Moles/Vol] 15 mmol/L Normal 0-15 [facility] Comment on above: Performed By: #### C MP, CBCDIF, ALCO #### [facility] [address] [place] [address] AST [Catalytic activity/Vol] 74 U/L High 17-59 [facility] Comment on above: Performed By: #### C MP, CBCDIF, ALCO #### [facility] [address] [place] [address] Bilirubin [Mass/Vol] 0.6 mg/dL Normal 0.2-1.3 [facility] Comment on above: Performed By: #### C MP, CBCDIF, ALCO #### [facility] [address] [facility] [address] Calcium [Mass/Vol] 8.3 mg/dL Low 8.4-10.2 [facility] Comment on above: Performed By: #### C MP, CBCDIF, ALCO #### [facility] [address] [facility] [address] Chloride [Moles/Vol] 110 mmol/L High 98-107 [facility] Comment on above: Performed By: #### C MP, CBCDIF, ALCO #### [facility] [address] [facility] [place] [address] CO2 [Moles/Vol] 20 mmol/L Low 22-30 [facility] Comment on above: Performed By: #### C MP, CBCDIF, ALCO #### [facility] [address] [facility] [place] [address] Creatinine [Mass/Vol] 0.99 mg/dL Normal 0.66-1.25 [facility] Comment on above: Performed By: #### C MP, CBCDIF, ALCO #### [facility] [address] [facility] [address] eGFR Amer >60 Normal >60 [facility] Comment on above: Result Comment: MDRD calculation used for eGFR results. Performed By: #### C MP, CBCDIF, ALCO #### [facility] [address] [place] [address] eGFR non Am >60 Normal >60 [facility] Comment on above: Performed By: #### C MP, CBCDIF, ALCO #### [facility] [address] [place] [address] Glucose [Mass/Vol] 113 mg/dL High 74-106 [facility] Comment on above: Performed By: #### C MP, CBCDIF, ALCO #### [facility] [address] [facility] [place] [address] Potassium [Moles/Vol] 3.9 mmol/L Normal 3.5-5.1 [facility] Comment on above: Performed By: #### C MP, CBCDIF, ALCO #### [facility] [address] [facility] [address] Protein [Mass/Vol] 7.0 g/dL Normal 6.2-8.2 [facility] Comment on above: Performed By: #### C MP, CBCDIF, ALCO #### [facility] [address] [facility] [address] Sodium [Moles/Vol] 141 mmol/L Normal 137-145 [facility] Comment on above: Performed By: #### C MP, CBCDIF, ALCO #### [facility] [address] [facility] [place] [address] Urea nitrogen [Mass/Vol] 19 mg/dL Normal 9-20 [facility] Comment on above: Performed By: #### C KEE, CBCRICK, CHAYA #### [facility] [address] [place], [place] [address] ED NOTEon 03-18-2023 ED NOTE HNO ID: [id number] Author: BRAYDEN BALL, JASVIR Service: ? Author Type: Registered Nurse Type: ED Notes Filed: 03/18/2023 09:51 Note Text: Patient voices understanding of being sent to [facility] and agrees at this time. Pateint denies SI at this time and states that it was because of him being upset about not getting help for ETOH. Clothes and coat returned to patient at discharge. Gait is slow and steady. Normal [facility] ED NOTE HNO ID: [id number] Author: BRAYDEN BALL RN Service: ? Author Type: Registered Nurse Type: ED Notes Filed: 03/18/2023 09:27 Note Text: Patient urine has been obtained and sent by JASVIR Mccoy [employer] Supervisor. Patient is now sleeping quietly. Normal [facility] ED NOTE HNO ID: [id number] Author: MICHAEL ARELLANO RN Service: Nursing Author Type: Registered Nurse Type: ED Notes Filed: 03/18/2023 09:18 Note Text: -------- Summary: nursing note -------- 0912 Spoke to [facility] at Intake. Patient has been approved to go to [facility] for treatment. Waiting for [facility] Intake to call back with details of admission and transportation. Asked [facility] Intake if he would be eligible for treatment in [place] and they Intake stated that he could be transferred there at a later time depending on his treatment plan. [facility] ED NOTE HNO ID: [id number] Author: FERMIN GILLIS RN Service: Emergency Medicine Author Type: Registered Nurse Type: ED Notes Filed: 03/18/2023 08:58 Note Text: Urine obtained, placed in tubes and sent to lab. BMU NM at bedside speaking to pt, pt verbalizes agreement to proceed with plan for admission to a treatment facility for alcohol. Pt requires frequent redirection, thus far, has been receptive. [facility] ED NOTE HNO ID: [id number] Author: BRAYDEN BALL RN Service: ? Author Type: Registered Nurse Type: ED Notes Filed: 03/18/2023 08:46 Note Text: Michael De La Rosa down to speak with patient at this time. [facility] ED NOTE HNO ID: [id number] Author: BRAYDEN BALL RN Service: ? Author Type: Registered Nurse Type: ED Notes Filed: 03/18/2023 08:46 Note Text: Requesting something for anxiety. Dr. Phillips advised. 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 [facility] ED NOTE HNO ID: [id number] Author: FERMIN GILLIS RN Service: Emergency Medicine Author Type: Registered Nurse Type: ED Notes Filed: 03/18/2023 08:36 Note Text: Intake and BMU NM aware of pt's arrival. [facility] ED NOTE HNO ID: [id number] Author: LALO SALMERON PCNA Service: Nursing Author Type: CXOWARE Type: ED Notes Filed: 03/18/2023 08:39 Note Text: Pt refused to be fully cleaned up. Patients says, it hurts to wash his legs and he doesn't care how dirty he is, he done washing [facility] ED NOTE HNO ID: [id number] Author: BRAYDEN BALL RN Service: ? Author Type: Registered Nurse Type: ED Notes Filed: 03/18/2023 08:02 Note Text: Patient comes to ER again for concerns of ETOH detox and is having SI. Patient has had multiple visits in past few days for ETOH and his last visit he eloped. Patient states that now he is suicidal with a plan to put a knife through my teeth . Patient is somewhat co-operative and occasionally crying [facility] ED NOTE HNO ID: [id number] Author: LUCIANA IZQUIERDO, JASVIR Service: ? Author Type: Registered Nurse Type: ED Notes Filed: 03/18/2023 05:20 Note Text: Patient left without verbal notice. [facility] ED NOTE HNO ID: [id number] Author: LUCIANA IZQUIERDO, JASVIR Service: ? Author Type: Registered Nurse Type: ED Notes Filed: 03/18/2023 04:44 Note Text: Patient up at bedside eating sandwich and drinking ice water. [facility] ED NOTE HNO ID: [id number] Author: LANEY STANLEY RN Service: ? Author Type: Registered Nurse Type: ED Notes Filed: 03/17/2023 23:12 Note Text: Pt states that he has been drinking all day. Seen earlier today for same. [facility] ED NOTE HNO ID: [id number] Author: LANEY STANLEY RN Service: ? Author Type: Registered Nurse Type: ED Notes Filed: 03/17/2023 23:11 Note Text: Pt is homeless. Arrives drunk again. Alert and apologizing. EMS picked pt up at local gas station. [facility] ED PROV NOTEon 03-18-2023 ED PROV NOTE HNO ID: [id number] Author: JERRY PHILLIPS JR, MD Service: ? Author Type: Physician Type: ED Provider Notes Filed: 03/18/2023 09:38 Note Text: ED Provider Note Patient Name: Mckinley Roman : 1985 SERVICE DATE: 03/18/23 History Patient presents with: Alcohol Problem This patient is a 38-year-old male who presents to the ED intoxicated. The patient has had several ED admissions for same. Today he complains of suicidal ideation. He was transported to the ED by EMS. He has refused treatment and had multiple outpatient facilities over the past week. On his last visit which was yesterday the patient eloped from the ED. The patient states he is suicidal and plans to put a knife through his teeth. 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 No pertinent surgical history. No family history on file. Social History Tobacco Use Smoking status: Some Days Types: Cigarettes Smokeless tobacco: Never Vaping Use Vaping Use: current everyday user Substances: Nicotine, Flavoring Devices: Disposable Substance and Sexual Activity Alcohol use: Yes Comment: 3- fifths daily- whiskey Drug use: Yes Types: Cocaine, Amphetamines Comment: last used noon on Wednesday Sexual activity: Not on file ALLERGIES No Known Allergies Review of Systems Constitutional: Negative. HENT: Negative. Eyes: Negative. Respiratory: Negative. Cardiovascular: Negative. Gastrointestinal: Negative. Genitourinary: Negative. Musculoskeletal: Negative. Skin: Negative. Psychiatric/Behavioral: Positive for agitation, behavioral problems and suicidal ideas. Physical Exam Vitals [03/18/23 0754] BP Pulse Temp Temp src Resp SpO2 Weight Height 154/95 82 36 ?C (96.8 ?F) Temporal Art 18 100 % 104.3 kg (230 lb) 1.803 m (5' 11 ) Physical Exam Vitals and nursing note reviewed. Constitutional: Appearance: He is well-developed. HENT: Head: Normocephalic and atraumatic. Nose: Nose normal. Eyes: Conjunctiva/sclera: Conjunctivae normal. Pupils: Pupils are equal, round, and reactive to light. Cardiovascular: Rate and Rhythm: Normal rate and regular rhythm. Heart sounds: Normal heart sounds. Pulmonary: Effort: Pulmonary effort is normal. Breath sounds: Normal breath sounds. Abdominal: General: Bowel sounds are normal. Palpations: Abdomen is soft. Musculoskeletal: General: Normal range of motion. Cervical back: Normal range of motion and neck supple. Skin: General: Skin is warm and dry. Neurological: Mental Status: He is alert and oriented to person, place, and time. Diagnostic Testing ED Labs Ordered and Reviewed COMP METABOLIC PANEL CBC + DIFF URINALYSIS, DIPSTICK ONLY TOX SCREEN ROUT UR ALCOHOL/ETHANOL BLD COVID AND INFLUENZA A/B AND RSV NAAT, EXPEDITED Procedures ED Course / Clinical Impression Clinical Impressions as of 03/18/23 0937 Alcohol abuse Suicidal thoughts COVID-19 test performed per [facility] [place] policy for suspected COVID community exposure. MDM / Disposition / Plan MEDICAL DECISION MAKING Number and Complexity of Problems the patient presents for evaluation. He is intoxicated and complains of suicidal ideation. The complexity is mild Differential Diagnosis: Includes alcohol intoxication, suicidal ideation MDM Data External documents reviewed . My EKG interpretation: Not applicable My CT interpretation: Not applicable My X-ray interpretation: Not applicable My Ultrasound interpretation: Not applicable Tests considered but not ordered Decision rules/scores evaluated: Discussed with: Treatment and Disposition ED Course: The patient presents to the ED with alcohol intoxication and suicidal ideation. The onset yesterday. The patient has had multiple recent ED visits for same. He has refused care at multiple facilities. He is sometimes abusive to nurses in the ED. The patient states he is suicidal today and his plan was to put a knife through his teeth . The patient is resting comfortably now and is cooperative. The patient was excepted to [facility] and was discharged. Social determinants of health that impact treatment or disposition Shared decision making: Code status: Discussion with regarding code status. Code status determined as Full Management Radiology Reports No orders to display All Labs ED Labs Ordered and Reviewed COMP METABOLIC PANEL - Abnormal Result Value Glucose 113 (*) BUN 19 Creatinine 0.99 eGFR-All Other Races >60 eGFR- >60 Sodium 141 Potassium 3.9 Chloride 110 (*) CO2 20 (*) Anion Gap 15 AST 74 (*) ALT 88 (*) Alkaline Phosphatase 90 Bilirubin, Total 0.6 Calcium 8.3 (*) Protein, Total 7.0 Albumin 4.1 URINALYSIS, DIPSTICK ONLY - Abnormal Color Straw (*) Clarity Clear Specific [place], Ur 1.009 pH, Urine 6.0 P (more content not included)... Normal [facility] ED PROV NOTE HNO ID: [id number] Author: TOM FIGUEROA DO, PhD Service: ? Author Type: Physician Type: ED Provider Notes Filed: 03/18/2023 05:50 Note Text: ED Provider Note Patient Name: Mckinley Roman : 1985 SERVICE DATE: 03/17/23 History Patient presents with: Alcohol Problem Patient presents seeking help for alcohol abuse. States he had a long-term alcohol addiction. He has been here several times for similar presentation but leaves prior to being able to secure [facility]. PAST MEDICAL HISTORY Diagnosis Date - Alcohol abuse - Psychiatric disorder History reviewed. No pertinent surgical history. No family history on file. Social History Tobacco Use - Smoking status: Some Days Types: Cigarettes - Smokeless tobacco: Not on file Vaping Use - Vaping Use: current everyday user Substance and Sexual Activity - Alcohol use: Yes Comment: 3- fifths daily - Drug use: Yes Types: Cocaine, Amphetamines Comment: last used noon on Wednesday - Sexual activity: Not on file ALLERGIES No Known Allergies Review of Systems Constitutional: Negative. HENT: Negative. Eyes: Negative. Respiratory: Negative. Cardiovascular: Negative. Gastrointestinal: Negative. Genitourinary: Negative. Musculoskeletal: Negative. Skin: Negative. Psychiatric/Behavioral: Negative. Physical Exam Vitals BP Pulse Temp Temp src Resp SpO2 Weight Height 03/17/23 2309 03/17/23 2309 03/17/23 2309 03/17/23 2309 03/17/23 2309 03/17/23 2309 03/17/23 2308 03/17/23 2308 130/79 (!) 95 36.6 ?C (97.9 ?F) Oral 16 98 % 102.1 kg (225 lb) 1.702 m (5' 7 ) Physical Exam Vitals and nursing note reviewed. Constitutional: Appearance: He is well-developed. HENT: Head: Normocephalic and atraumatic. Right Ear: External ear normal. Left Ear: External ear normal. Nose: Nose normal. Mouth/Throat: Mouth: Mucous membranes are moist. Pharynx: Oropharynx is clear. Eyes: Extraocular Movements: Extraocular movements intact. Conjunctiva/sclera: Conjunctivae normal. Pupils: Pupils are equal, round, and reactive to light. Cardiovascular: Rate and Rhythm: Normal rate and regular rhythm. Pulses: Normal pulses. Carotid pulses are 2+ on the right side and 2+ on the left side. Heart sounds: Normal heart sounds, S1 normal and S2 normal. No murmur heard. No gallop. Pulmonary: Effort: Pulmonary effort is normal. Breath sounds: Normal breath sounds. Abdominal: General: Bowel sounds are normal. Palpations: Abdomen is soft. Musculoskeletal: General: Normal range of motion. Cervical back: Normal range of motion and neck supple. Skin: General: Skin is warm and dry. Capillary Refill: Capillary refill takes less than 2 seconds. Neurological: General: No focal deficit present. Mental Status: He is alert and oriented to person, place, and time. Psychiatric: Mood and Affect: Mood normal. Behavior: Behavior normal. Diagnostic Testing ED Labs Ordered and Reviewed - No data to display Procedures ED Course / Clinical Impression Clinical Impressions as of 03/24/23 0658 Alcohol abuse MDM / Disposition / Plan Patient presents with request for treatment for alcohol abuse. He has been here several times including leaving just a few hours ago returns by EMS again seeking square 1 this is a very similar pattern to what we have seen with this patient he has been disruptive. Medical screening exam has been completed there is no immediate life threat patient is deemed clinically sober. He understands at this juncture that we will attempt to try to get him to [place] [id number] but if there is any disruptive behavior the police department will be called. Patient slept for a few hours was fed and then he became anxious stating he was withdrawing clinically the patient has no signs of withdrawal. I did give him hydroxyzine which she states he needs something stronger at this time I have low suspicion for withdrawal hydroxyzine should be adequate for anxiolysis patient was given Ativan on a former visit just this day and as soon as you receive the medication left. Patient is clinically sober despite his elevated alcohol level he seems understand the gravity of his decisions and is able to hold conversation. At 1 point he had to be redirected back to his bed because he began pacing around the emergency department he does follow commands appropriately which further leads me to believe he is clinically sober. Second blood alcohol is still elevated at 230 Patient verbalizes he no longer wishes to stay and leaves the department at this time being clinically sober I see no indication to hold this patient against his will. SIGNATURE: Tom Figueroa DO, PhD - TOM FIGUEROA 03/18/23 0550 Normal [facility] Urinalysison 03-18-2023 Bilirubin Ql (U) Negative Normal Negative [facility] Comment on above: Performed By: #### C MP, CBCDIF, ALCO #### [facility] [address] [place] [address] Clarity (U) Clear Normal Clear [facility] Comment on above: Performed By: #### C MP, CBCDIF, ALCO #### [facility] [address] [facility] [place] [address] Color (U) Straw Critically abnormal Yellow [facility] Comment on above: Performed By: #### C MP, CBCDIF, ALCO #### [facility] [address] [place] [address] Glucose Ql (U) Negative Normal Negative [facility] Comment on above: Performed By: #### C MP, CBCDIF, ALCO #### [facility] [address] [place] [address] Hemoglobin/Blood Small Critically abnormal Negative [facility] Comment on above: Performed By: #### C MP, CBCDIF, ALCO #### [facility] [address] [place] [address] Ketone Negative Normal Negative [facility] Comment on above: Performed By: #### C MP, CBCDIF, ALCO #### [facility] [address] [place] [address] Leukest Negative Normal Negative [facility] Comment on above: Performed By: #### C MP, CBCDIF, ALCO #### [facility] [address] [place] [address] Nitrite Ql (U) Negative Normal Negative [facility] Comment on above: Performed By: #### C MP, CBCDIF, ALCO #### [facility] [address] [place] [address] pH (U) 6.0 [pH] Normal 5-7 [facility] Comment on above: Performed By: #### C MP, CBCDIF, ALCO #### [facility] [address] [place] [address] Protein Ql (U) Negative Normal Negative [facility] Comment on above: Performed By: #### C KEE CBCDIF, ALCO #### [facility] [address] [place] [address] RBC 0-3 Normal 0-3 [facility] Comment on above: Performed By: #### C KEE CBCDIF, ALCO #### [facility] [address] [place] [address] Urine Prosper Comment Few Normal [facility] Comment on above: Result Comment: MUCO US Performed By: #### C JENNIFER SWEETF, ALCO #### [facility] [address] [place] [address] Urine Spec [place] 1.009 Normal 1.005-1.030 [facility] Comment on above: Performed By: #### C KEE CBCDIF, ALCO #### [facility] [address] [place] [address] Urobilinogen (U) [Mass/Vol] mg/dL Normal 0.0-1.0 [facility] Comment on above: Performed By: #### C KEE CBCDIF, ALCO #### [facility] [address] [place] [address] Urine Drug Screenon 03-18-19 24 Urine Amphetamines Not detected Normal None Detected [facility] Comment on above: Performed By: #### C KEE CBCDIF, ALCO #### [facility] [address] [place] [address] Urine Barbiturates Not detected Normal None Detected [facility] Comment on above: Performed By: #### C MP, CBCDIF, ALCO #### [facility] [address] [place] [address] Urine Benzos Not detected Normal None Detected [facility] Comment on above: Performed By: #### C KEE CBCDIF, ALCO #### [facility] [address] [place] [address] Urine Cocaine Not detected Normal None Detected [facility] Comment on above: Performed By: #### C MP, CBCDIF, ALCO #### [facility] [address] [place] [address] Urine Opiates Not detected Normal None Detected [facility] Comment on above: Performed By: #### C MP, CBCDIF, ALCO #### [facility] [address] [place] [address] Urine PCP Not detected Normal None Detected [facility] Comment on above: Performed By: #### C MP, CBCDIF, ALCO #### [facility] [address] [place] [address] Urine THC Not detected Normal None Detected [facility] Comment on above: Performed By: #### C MP, CBCDIF, ALCO #### [facility] [address] [place] [address] COMMENT Test results are unconfirmed by this method and must not be used for non-medical purposes. Normal [facility] Comment on above: Result Comment: CUTOFF THRESHOLD FOR RESULT OF DETECTED : AMPHETAMINES >/=1000 ng/mL BARBITURATES >/=200 ng/mL BENZODIAZEPINES >/=200 ng/mL COCAINE >/=300 ng/mL OPIATES >/=300 ng/mL PCP >/=25 ng/mL THC >/=50 ng/mL Performed By: #### C MP, CBCDIF, ALCO #### [facility] [address] [place] [address] Alcoholon 03-17-2023 Ethanol [Mass/Vol] 288 mg/dL High 0.0-20.0 [facility] Comment on above: Performed By: #### C MP, TROPI, ALCO, CBCDIF #### [facility] [address] [place] [address] Ethanol [Mass/Vol] 135 mg/dL High 0.0-20.0 [facility] Comment on above: Performed By: #### A LCO ####[facility] [address] [place], [place] [phone] Ethanol [Mass/Vol] 314 mg/dL High 0.0-20.0 [facility] Comment on above: Performed By: #### C MP, TROPI, ALCO, CBCDIF #### [facility] [address] [place] [address] CBCDIFon 03-17-2023 Abs Baso 0.04 k/uL Normal 0-0.2 [facility] Comment on above: Performed By: #### C MP, TROPI, ALCO, CBCDIF #### [facility] [address] [place] [address] Abs [place] 0.65 k/uL Normal 0-0.8 [facility] Comment on above: Performed By: #### C MP, TROPI, ALCO, CBCDIF #### [facility] [address] [place] [address] Abs Neut 3.24 k/uL Normal 1.8-7.7 [facility] Comment on above: Performed By: #### C MP, TROPI, ALCO, CBCDIF #### [facility] [address] [facility] [place] [address] Basophils/100 WBC (Bld) 0.5 % Normal 0-1 [facility] Comment on above: Performed By: #### C MP, TROPI, ALCO, CBCDIF #### [facility] [address] [place] [address] Eosinophils (Bld) [#/Vol] 0.10 10*3/uL Normal 0-0.4 [facility] Comment on above: Performed By: #### C MP, TROPI, ALCO, CBCDIF #### [facility] [address] [facility] [place] [address] Eosinophils/100 WBC (Bld) 1.3 % Normal 0-4 [facility] Comment on above: Performed By: #### C MP, TROPI, ALCO, CBCDIF #### [facility] [address] [place] [address] Erythrocyte distribution width (RBC) [Ratio] 13.5 % Normal 11.5-14.5 [facility] Comment on above: Performed By: #### C MP, TROPI, ALCO, CBCDIF #### [facility] [address] [place] [address] Hematocrit (Bld) [Volume fraction] 42.7 % Normal 41.0-53.0 [facility] Comment on above: Performed By: #### C MP, TROPI, ALCO, CBCDIF #### [facility] [address] [place] [address] Hemoglobin (Bld) [Mass/Vol] 15.7 g/dL Normal 13.5-17.5 [facility] Comment on above: Performed By: #### C MP, TROPI, ALCO, CBCDIF #### [facility] [address] [place] [address] Immature Gran 0.10 % Normal 0-1.9 [facility] Comment on above: Performed By: #### C MP, TROPI, ALCO, CBCDIF #### [facility] [address] [place] [address] Lymphocytes (Bld) [#/Vol] 3.71 10*3/uL Normal 1.0-4.0 [facility] Comment on above: Performed By: #### C MP, TROPI, ALCO, CBCDIF #### [facility] [address] [place] [address] Lymphocytes/100 WBC (Bld) 47.9 % High 22-44 [facility] Comment on above: Performed By: #### C MP, TROPI, ALCO, CBCDIF #### [facility] [address] [place] [address] MCH 29.9 pG Normal 26-34 [facility] Comment on above: Performed By: #### C MP, TROPI, ALCO, CBCDIF #### [facility] [address] [place] [address] MCHC (RBC) [Mass/Vol] 36.8 g/dL Normal 31-37 [facility] Comment on above: Performed By: #### C MP, TROPI, ALCO, CBCDIF #### [facility] [address] [place] [address] MCV (RBC) [Entitic vol] 81.3 fL Normal 80-100 [facility] Comment on above: Performed By: #### C MP, TROPI, ALCO, CBCDIF #### [facility] [address] [place] [address] Monocytes/100 WBC (Bld) 8.4 % Normal 4-12 [facility] Comment on above: Performed By: #### C MP, TROPI, ALCO, CBCDIF #### [facility] [address] [place] [address] Neutrophils/100 WBC (Bld) 41.8 % Normal 40-70 [facility] Comment on above: Performed By: #### C MP, TROPI, ALCO, CBCDIF #### [facility] [address] [place] [address] NRBCs 0 /100 WBC Normal 0-0.9 [facility] Comment on above: Performed By: #### C MP, TROPI, ALCO, CBCDIF #### [facility] [address] [place] [address] Platelets (Bld) [#/Vol] 306 10*3/uL Normal 150-450 [facility] Comment on above: Performed By: #### C MP, TROPI, ALCO, CBCDIF #### [facility] [address] [place] [address] RBC (Bld) [#/Vol] 5.25 10*6/uL Normal 4.50-5.90 [facility] Comment on above: Performed By: #### C MP, TROPI, ALCO, CBCDIF #### [facility] [address] [place] [address] WBC (Bld) [#/Vol] 7.75 10*3/uL Normal 4.5-11.0 [facility] Comment on above: Performed By: #### C MP, TROPI, ALCO, CBCDIF #### [facility] [address] [place] [address] Comp Metabolic Panelon 03-17 Albumin [Mass/Vol] 4.3 g/dL Normal 3.5-5.0 [facility] Comment on above: Performed By: #### C MP, TROPI, ALCO, CBCDIF #### [facility] [address] [place] [address] Alkaline Phos 91 U/L Normal 38-125 [facility] Comment on above: Performed By: #### C MP, TROPI, ALCO, CBCDIF #### [facility] [address] [facility] [place] [address] ALT [Catalytic activity/Vol] 56 U/L High 0-49 [facility] Comment on above: Performed By: #### C MP, TROPI, ALCO, CBCDIF #### [facility] [address] [place] [address] Anion gap [Moles/Vol] 16 mmol/L High 0-15 [facility] Comment on above: Performed By: #### C MP, TROPI, ALCO, CBCDIF #### [facility] [address] [facility] [place] [address] AST [Catalytic activity/Vol] 42 U/L Normal 17-59 [facility] Comment on above: Performed By: #### C MP, TROPI, ALCO, CBCDIF #### [facility] [address] [place] [address] Bilirubin [Mass/Vol] 0.4 mg/dL Normal 0.2-1.3 [facility] Comment on above: Performed By: #### C MP, TROPI, ALCO, CBCDIF #### [facility] [address] [place] [address] Calcium [Mass/Vol] 8.5 mg/dL Normal 8.4-10.2 [facility] Comment on above: Performed By: #### C MP, TROPI, ALCO, CBCDIF #### [facility] [address] [place] [address] Chloride [Moles/Vol] 111 mmol/L High 98-107 [facility] Comment on above: Performed By: #### C MP, TROPI, ALCO, CBCDIF #### [facility] [address] [place] [address] CO2 [Moles/Vol] 20 mmol/L Low 22-30 [facility] Comment on above: Performed By: #### C MP, TROPI, ALCO, CBCDIF #### [facility] [address] [facility] [address] Creatinine [Mass/Vol] 0.82 mg/dL Normal 0.66-1.25 [facility] Comment on above: Performed By: #### C MP, TROPI, ALCO, CBCDIF #### [facility] [address] [facility] [place] [address] eGFR Amer >60 Normal >60 [facility] Comment on above: Result Comment: MDRD calculation used for eGFR results. Performed By: #### C MP, TROPI, ALCO, CBCDIF #### [facility] [address] [place] [address] eGFR non Am >60 Normal >60 [facility] Comment on above: Performed By: #### C MP, TROPI, ALCO, CBCDIF #### [facility] [address] [facility] [place] [address] Glucose [Mass/Vol] 109 mg/dL High 74-106 [facility] Comment on above: Performed By: #### C MP, TROPI, ALCO, CBCDIF #### [facility] [address] [place] [address] Potassium [Moles/Vol] 3.9 mmol/L Normal 3.5-5.1 [facility] Comment on above: Performed By: #### C MP, TROPI, ALCO, CBCDIF #### [facility] [address] [place] [address] Protein [Mass/Vol] 7.3 g/dL Normal 6.2-8.2 [facility] Comment on above: Performed By: #### C MP, TROPI, ALCO, CBCDIF #### [facility] [address] [place] [address] Sodium [Moles/Vol] 143 mmol/L Normal 137-145 [facility] Comment on above: Performed By: #### C MP, TROPI, ALCO, CBCDIF #### [facility] [address] [facility] [address] Urea nitrogen [Mass/Vol] 20 mg/dL Normal 9-20 [facility] Comment on above: Performed By: #### C MP, TROPI, ALCO, CBCDIF #### [facility] [address] [facility] [address] ED NOTEon 03-17-2023 ED NOTE HNO ID: [id number] Author: IRISH ESTEVEZ, JASVIR Service: Nursing Author Type: Registered Nurse Type: ED Notes Filed: 03/17/2023 20:13 Note Text: Patient departed ED. Patient states that he had ride here for transport. Patient voices no concerns upon departure. Patient states he will have his friend transport him [facility]. [facility] ED NOTE HNO ID: [id number] Author: IRISH ESTEVEZ RN Service: Nursing Author Type: Registered Nurse Type: ED Notes Filed: 03/17/2023 19:38 Note Text: Patient states that if this nurse who isnt doing anything and moves fucking slow doesn't get him something for anxiety he is going to rip his fucking iv out and leave . This nurse removed IV. [facility] ED NOTE HNO ID: [id number] Author: IRISH ESTEVEZ, JASVIR Service: Nursing Author Type: Registered Nurse Type: ED Notes Filed: 03/17/2023 19:29 Note Text: Patient very agitated continues to use profanity in Ed. [facility] ED NOTE HNO ID: [id number] Author: LALO SALMERON PCNA Service: Nursing Author Type: CXOWARE Type: ED Notes Filed: 03/17/2023 19:06 Note Text: Per Deidre from intake, Julia from [facility] stated that the patient may go there when labs are back OR they will arrange to take him back to [place]. [facility] ED NOTE HNO ID: [id number] Author: IRISH ESTEVEZ RN Service: Nursing Author Type: Registered Nurse Type: ED Notes Filed: 03/17/2023 19:31 Note Text: Patient unable to provide urine sample. Patient in agreement with straight cath. Male nurse and this nurse present in room for urinary cath. [facility] ED NOTE HNO ID: [id number] Author: IRISH ESTEVEZ RN Service: Nursing Author Type: Registered Nurse Type: ED Notes Filed: 03/17/2023 18:18 Note Text: Patient to ED via EMS ([facility]) for complaints of wanting help with alcohol and drug detox. Patient admits to using drugs two days ago and drinking alcohol day today. Irish Estevez RN [facility] ED NOTE HNO ID: [id number] Author: JOHN PAUL VAUGHN RN Service: ? Author Type: Registered Nurse Type: ED Notes Filed: 03/17/2023 11:10 Note Text: Pt asking to leave and d/c papers completed by Dr. Keen. Pt still says that they do not want help and do not want to wait. IV access discontinued. D/c papers reviewed with the pt and he verbalized understanding. Pt given belongings and was ambulatory out of the ED. [facility] ED NOTE HNO ID: [id number] Author: JOHN PAUL VAUGHN, RN Service: ? Author Type: Registered Nurse Type: ED Notes Filed: 03/17/2023 10:24 Note Text: Pt yelling that he wants to leave the ED. Explained that his ETOH was still 135 on the last draw. Dr. Keen notified and is over speaking with the pt about plan and discharge. Pt does not want to wait for any help and wants to leave the ED. [facility] ED NOTE HNO ID: [id number] Author: JOHN PAUL VAUGHN, JASVIR Service: ? Author Type: Registered Nurse Type: ED Notes Filed: 03/17/2023 09:10 Note Text: Michael De La Rosa RN at bedside speaking with the pt. [facility] ED NOTE HNO ID: [id number] Author: JOHN PAUL VAUGHN, JASVIR Service: ? Author Type: Registered Nurse Type: ED Notes Filed: 03/17/2023 07:20 Note Text: Assumed care of the pt. Pt asleep in bed with equal chest rise and HR being monitored by pulse ox. No s/sx of distress noted. Will continue to monitor. [facility] ED NOTE HNO ID: [id number] Author: ESPERANZA NOE, JASVIR Service: ? Author Type: Registered Nurse Type: ED Notes Filed: 03/17/2023 03:28 Note Text: Pt is in hospital clothing; two bags of personal belongings in storage room. [facility] ED NOTE HNO ID: [id number] Author: ESPERANZA NOE, JASVIR Service: ? Author Type: Registered Nurse Type: ED Notes Filed: 03/17/2023 03:28 Note Text: Pt again declines to provide urine sample at this time. [facility] ED PROV NOTEon 03-17-2023 ED PROV NOTE HNO ID: [id number] Author: DIANA KEEN MD Service: Emergency Medicine Author Type: Physician Type: ED Provider Notes Filed: 03/17/2023 18:24 Note Text: ED Provider Note Patient Name: Mckinley Roman : 1985 SERVICE DATE: 03/17/23 History No chief complaint on file. Intoxication Similar prior episodes: yes Severity: Moderate Onset quality: Gradual Timing: Constant Chronicity: Chronic Suspected agents: Alcohol (cocaine) Associated symptoms: no agitation, no blackouts, no headaches, no seizures and no shortness of breath Risk factors comment: Etoh PAST MEDICAL HISTORY Diagnosis Date Alcohol abuse Psychiatric disorder History reviewed. No pertinent surgical history. No family history on file. Social History Tobacco Use Smoking status: Some Days Types: Cigarettes Smokeless tobacco: Not on file Vaping Use Vaping Use: current everyday user Substance and Sexual Activity Alcohol use: Yes Comment: 3- fifths daily Drug use: Yes Types: Cocaine, Amphetamines Comment: last used noon on Wednesday Sexual activity: Not on file ALLERGIES No Known Allergies Review of Systems Constitutional: Negative. HENT: Negative. Eyes: Negative. Respiratory: Negative for shortness of breath. Cardiovascular: Negative. Gastrointestinal: Negative. Genitourinary: Negative. Musculoskeletal: Negative. Skin: Negative. Neurological: Negative for seizures and headaches. Psychiatric/Behavioral: Negative. Negative for agitation. All other systems reviewed and are negative. Physical Exam Vitals [03/17/23 1814] BP Pulse Temp Temp src Resp SpO2 Weight Height 145/83 (!) 100 37.1 ?C (98.8 ?F) -- 20 100 % 102.1 kg (225 lb) -- Physical Exam Vitals and nursing note reviewed. Constitutional: Appearance: He is well-developed. HENT: Head: Normocephalic and atraumatic. Right Ear: External ear normal. Left Ear: External ear normal. Nose: Nose normal. Mouth/Throat: Mouth: Mucous membranes are moist. Pharynx: Oropharynx is clear. Eyes: Extraocular Movements: Extraocular movements intact. Conjunctiva/sclera: Conjunctivae normal. Pupils: Pupils are equal, round, and reactive to light. Cardiovascular: Rate and Rhythm: Normal rate and regular rhythm. Pulses: Normal pulses. Carotid pulses are 2+ on the right side and 2+ on the left side. Heart sounds: Normal heart sounds, S1 normal and S2 normal. No murmur heard. No gallop. Pulmonary: Effort: Pulmonary effort is normal. Breath sounds: Normal breath sounds. Abdominal: General: Bowel sounds are normal. Palpations: Abdomen is soft. Musculoskeletal: General: Normal range of motion. Cervical back: Normal range of motion and neck supple. Skin: General: Skin is warm and dry. Capillary Refill: Capillary refill takes less than 2 seconds. Neurological: General: No focal deficit present. Mental Status: He is alert and oriented to person, place, and time. Psychiatric: Mood and Affect: Mood normal. Behavior: Behavior normal. Diagnostic Testing ED Labs Ordered and Reviewed - No data to display Procedures ED Course / Clinical Impression Clinical Impressions as of 03/17/23 1823 Alcohol abuse Cocaine use MDM / Disposition / Plan MEDICAL DECISION MAKING Number and Complexity of Problems Differential Diagnosis: Alcohol and drugs homeless MDM Data External documents reviewed prior inpatient notes. My EKG interpretation: My CT interpretation: My X-ray interpretation: My Ultrasound interpretation: Tests considered but not ordered Decision rules/scores evaluated: Discussed with: d/w Michael will try to get him to [facility] Treatment and Disposition ED Course: 38-year-old male with a history of alcohol abuse multiple ED visits at this institution where he presented tonight again stating he was drinking and need some help. Earlier we did offer help to go to [place] [address]. At that time he declined transfer. Patient currently homeless. He stated he used cocaine earlier tonight. On examination he is awake he is alert vital signs are stable no nystagmus. Neck is supple. Lungs are clear. Abdomen soft nontender. Neurologic he is awake alert with any deficit. Social determinants of health that impact treatment or disposition Shared decision making: Code status: SIGNATURE: Diana Keen MD - DIANA KEEN 03/17/23 1824 [facility] ED PROV NOTE HNO ID: [id number] Author: DIANA KEEN MD Service: Emergency Medicine Author Type: Physician Type: ED Provider Notes Filed: 03/17/2023 10:52 Note Text: ED Provider Note Patient Name: Mckinley Roman : 1985 SERVICE DATE: 03/16/23 History Patient presents with: Alcohol Problem HPI PAST MEDICAL HISTORY Diagnosis Date Alcohol abuse Psychiatric disorder No past surgical history on file. No family history on file. Social History Tobacco Use Smoking status: Some Days Types: Cigarettes Smokeless tobacco: Not on file Vaping Use Vaping Use: current everyday user Substance and Sexual Activity Alcohol use: Yes Comment: 3- fifths daily Drug use: Yes Types: Cocaine, Amphetamines Comment: last used noon on Wednesday Sexual activity: Not on file ALLERGIES No Known Allergies Review of Systems Physical Exam Vitals [03/16/232102] BP Pulse Temp Temp src Resp SpO2 Weight Height 139/77 84 36.5 ?C (97.7 ?F) Oral 16 98 % 104.3 kg (230 lb) -- Physical Exam Diagnostic Testing ED Labs Ordered and Reviewed COMP METABOLIC PANEL - Abnormal; Notable for the following components: Result Value Ref Range Glucose 109 (*) 74 - 106 mg/dL Chloride 111 (*) 98 - 107 mmol/L CO2 20 (*) 22 - 30 mmol/L Anion Gap 16 (*) 0 - 15 ALT 56 (*) 0 - 49 U/L All other components within normal limits CBC + DIFF - Abnormal; Notable for the following components: Lymph% 47.9 (*) 22 - 44 % All other components within normal limits ALCOHOL/ETHANOL BLD - Abnormal; Notable for the following components: Ethanol 314 (*) 0.0 - 20.0 mg/dL All other components within normal limits ALCOHOL/ETHANOL BLD - Abnormal; Notable for the following components: Ethanol 135 (*) 0.0 - 20.0 mg/dL All other components within normal limits TROPONIN I TOX SCREEN ROUT UR Procedures ED Course / Clinical Impression Clinical Impressions as of 03/17/23 1052 Alcohol abuse Homeless MDM / Disposition / Plan Management Radiology Reports No orders to display All Labs ED Labs Ordered and Reviewed COMP METABOLIC PANEL - Abnormal Result Value Glucose 109 (*) BUN 20 Creatinine 0.82 eGFR-All Other Races >60 eGFR- >60 Sodium 143 Potassium 3.9 Chloride 111 (*) CO2 20 (*) Anion Gap 16 (*) AST 42 ALT 56 (*) Alkaline Phosphatase 91 Bilirubin, Total 0.4 Calcium 8.5 Protein, Total 7.3 Albumin 4.3 CBC + DIFF - Abnormal WBC 7.75 RBC 5.25 Hemoglobin 15.7 Hematocrit 42.7 MCV 81.3 MCH 29.9 MCHC 36.8 RDW-CV 13.5 Platelet Count 306 NRBC 0 Neut% 41.8 Abs Neut (ANC) 3.24 Lymph% 47.9 (*) Abs Lymph 3.71 [place]% 8.4 Abs [place] 0.65 Eosin% 1.3 Abs Eosin 0.10 Baso% 0.5 Abs Baso 0.04 Immature Gran 0.10 ALCOHOL/ETHANOL BLD - Abnormal Ethanol 314 (*) ALCOHOL/ETHANOL BLD - Abnormal Ethanol 135 (*) TROPONIN I Troponin I <0.012 TOX SCREEN ROUT UR Amphetamines None Detected Barbiturates None Detected Benzodiazepines Urine None Detected Cocaine Urine None Detected Opiates None Detected Cannabinoids, Urine None Detected Phencyclidine None Detected Urine Comment Value: Test results are unconfirmed by this method and must not be used for non-medical purposes. Meds Given During Visit ED Medication Administration from 03/16/2023 2102 to 03/17/2023 1052 None Disposition The patient was discharged. Seen by me at 10:30 AM. He is fully awake alert and wants to go home. He denies any withdrawal symptoms. Patient does not want to be placed at any retirement or rehab center. Intake came in and evaluate the patient for possible placement and patient declined any further placement he wants to be discharged. He stated he is homeless and does know what to do. Patient denies any suicidal homicidal ideation. Labs reviewed. Patient will be discharged SIGNATURE: Diana Keen MD - LEONILA, DIANA 03/17/23 1052 [facility] ED PROV NOTE HNO ID: [id number] Author: JERRY PHILLIPS JR, MD Service: ? Author Type: Physician Type: ED Provider Notes Filed: 03/17/2023 06:15 Note Text: ED Provider Note Patient Name: Mckinley Roman : 1985 SERVICE DATE: 03/16/23 History Patient presents with: Alcohol Problem This patient is a 38-year-old male who presents to the ED with alcohol intoxication. The onset was tonight. The patient has had multiple recent ED visits for drug abuse and alcohol intoxication. The patient denies any specific complaints. There is no fever on admission. The patient is alert and cooperative. 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 No family history on file. Social History Tobacco Use Smoking status: Some Days Types: Cigarettes Smokeless tobacco: Not on file Vaping Use Vaping Use: current everyday user Substance and Sexual Activity Alcohol use: Yes Comment: 3- fifths daily Drug use: Yes Types: Cocaine, Amphetamines Comment: last used noon on Wednesday Sexual activity: Not on file ALLERGIES No Known Allergies Review of Systems Constitutional: Negative. HENT: Negative. Eyes: Negative. Respiratory: Negative. Cardiovascular: Negative. Gastrointestinal: Negative. Genitourinary: Negative. Musculoskeletal: Negative. Skin: Negative. Psychiatric/Behavioral: Negative. Physical Exam Vitals [03/16/23 2103] BP Pulse Temp Temp src Resp SpO2 Weight Height 139/77 84 36.5 ?C (97.7 ?F) Oral 16 98 % 104.3 kg (230 lb) -- Physical Exam Vitals and nursing note reviewed. Constitutional: Appearance: He is well-developed. HENT: Head: Normocephalic and atraumatic. Nose: Nose normal. Eyes: Conjunctiva/sclera: Conjunctivae normal. Pupils: Pupils are equal, round, and reactive to light. Cardiovascular: Rate and Rhythm: Normal rate and regular rhythm. Heart sounds: Normal heart sounds. Pulmonary: Effort: Pulmonary effort is normal. Breath sounds: Normal breath sounds. Abdominal: General: Bowel sounds are normal. Palpations: Abdomen is soft. Musculoskeletal: General: Normal range of motion. Cervical back: Normal range of motion and neck supple. Skin: General: Skin is warm and dry. Neurological: Mental Status: He is alert and oriented to person, place, and time. Diagnostic Testing ED Labs Ordered and Reviewed - No data to display Procedures ED Course / Clinical Impression MDM / Disposition / Plan MEDICAL DECISION MAKING Number and Complexity of Problems the patient presents to the ED with alcohol intoxication. Patient is awake tonight. Patient has had multiple recent ED visits for same. Complexity is mild Differential Diagnosis: Includes alcohol intoxication MDM Data External documents reviewed . My EKG interpretation: EKG normal sinus rhythm normal EKG My CT interpretation: Not applicable My X-ray interpretation: Not applicable My Ultrasound interpretation: Not applicable Tests considered but not ordered Decision rules/scores evaluated: Discussed with: Treatment and Disposition ED Course: The patient presents to the ED with alcohol intoxication. The initial alcohol tonight was 314. The patient will be discharged when awake, alert, and the alcohol level is below the legal limit. Social determinants of health that impact treatment or disposition Shared decision making: Code status: Discussion with regarding code status. Code status determined as full code Management Radiology Reports No orders to display All Labs ED Labs Ordered and Reviewed COMP METABOLIC PANEL - Abnormal Result Value Glucose 109 (*) BUN 20 Creatinine 0.82 eGFR-All Other Races >60 eGFR- >60 Sodium 143 Potassium 3.9 Chloride 111 (*) CO2 20 (*) Anion Gap 16 (*) AST 42 ALT 56 (*) Alkaline Phosphatase 91 Bilirubin, Total 0.4 Calcium 8.5 Protein, Total 7.3 Albumin 4.3 CBC + DIFF - Abnormal WBC 7.75 RBC 5.25 Hemoglobin 15.7 Hematocrit 42.7 MCV 81.3 MCH 29.9 MCHC 36.8 RDW-CV 13.5 Platelet Count 306 NRBC 0 Neut% 41.8 Abs Neut (ANC) 3.24 Lymph% 47.9 (*) Abs Lymph 3.71 [place]% 8.4 Abs [place] 0.65 Eosin% 1.3 Abs Eosin 0.10 Baso% 0.5 Abs Baso 0.04 Immature Gran 0.10 ALCOHOL/ETHANOL BLD - Abnormal Ethanol 314 (*) TROPONIN I Troponin I <0.012 TOX SCREEN ROUT UR ALCOHOL/ETHANOL BLD Meds Given During Visit ED Medication Administration from 03/16/2023 2102 to 03/17/2023 0510 None Final diagnosis #1 alcohol intoxication SIGNATURE: Jerry Phillips Jr, MD, MD - JERRY PHILLIPS JR, MD 03/17/23 0615 Normal [facility] Troponin Ion 03-17-2023 Troponin I.cardiac [Mass/Vol] ng/mL Normal [facility] Comment on above: Result Comment: Troponin I Interpretation <0.012-0.034 Negative 0.035-0.119 Ma Zone: Risk Stratification >0.119 Consistent with AMI Biotin (Vitamin B7) is known to potentially cause an interfering NEGATIVE bias with this assay. If this result does not correlate clinically with your patient's presentation, it is suggested that Biotin use be discontinued for 2 days prior to re-testing. Performed By: #### C MP, TROPI, ALCO, CBCDIF #### [facility] [address] [place], [place] [id number] Urine Drug Screenon 03-17-19 24 Urine Amphetamines Not detected Normal None Detected [facility] Comment on above: Performed By: #### C MP, TROPI, ALCO, CBCDIF #### [facility] [address] [place] [address] Urine Barbiturates Not detected Normal None Detected [facility] Comment on above: Performed By: #### C MP, TROPI, ALCO, CBCDIF #### [facility] [address] [place] [address] Urine Benzos Not detected Normal None Detected [facility] Comment on above: Performed By: #### C MP, TROPI, ALCO, CBCDIF #### [facility] [address] [place] [address] Urine Cocaine Not detected Normal None Detected [facility] Comment on above: Performed By: #### C MP, TROPI, ALCO, CBCDIF #### [facility] [address] [place] [address] Urine Opiates Not detected Normal None Detected [facility] Comment on above: Performed By: #### C MP, TROPI, ALCO, CBCDIF #### [facility] [address] [place] [address] Urine PCP Not detected Normal None Detected [facility] Comment on above: Performed By: #### C MP, TROPI, ALCO, CBCDIF #### [facility] [address] [place] [address] Urine THC Not detected Normal None Detected [facility] Comment on above: Performed By: #### C MP, TROPI, ALCO, CBCDIF #### [facility] [address] [place] [address] COMMENT Test results are unconfirmed by this method and must not be used for non-medical purposes. Normal [facility] Comment on above: Result Comment: CUTOFF THRESHOLD FOR RESULT OF DETECTED : AMPHETAMINES >/=1000 ng/mL BARBITURATES >/=200 ng/mL BENZODIAZEPINES >/=200 ng/mL COCAINE >/=300 ng/mL OPIATES >/=300 ng/mL PCP >/=25 ng/mL THC >/=50 ng/mL Performed By: #### C MP, TROPI, ALCO, CBCDIF #### [facility] [address] [place] [address] Urine Amphetamines Not detected Normal None Detected [facility] Comment on above: Performed By: #### C MP, CBCDIF, ALCO #### [facility] [address] [place] [address] Urine Barbiturates Not detected Normal None Detected [facility] Comment on above: Performed By: #### C MP, CBCDIF, ALCO #### [facility] [address] [place] [address] Urine Benzos Not detected Normal None Detected [facility] Comment on above: Performed By: #### C MP, CBCDIF, ALCO #### [facility] [address] [place] [address] Urine Cocaine Not detected Normal None Detected [facility] Comment on above: Performed By: #### C MP, CBCDIF, ALCO #### [facility] [address] [place] [address] Urine Opiates Not detected Normal None Detected [facility] Comment on above: Performed By: #### C MP, CBCDIF, ALCO #### [facility] [address] [place] [address] Urine PCP Not detected Normal None Detected [facility] Comment on above: Performed By: #### C MP, CBCDIF, ALCO #### [facility] [address] [place] [address] Urine THC Not detected Normal None Detected [facility] Comment on above: Performed By: #### C MP, CBCDIF, ALCO #### [facility] [address] [place] [address] COMMENT Test results are unconfirmed by this method and must not be used for non-medical purposes. [facility] Comment on above: Result Comment: CUTOFF THRESHOLD FOR RESULT OF DETECTED : AMPHETAMINES >/=1000 ng/mL BARBITURATES >/=200 ng/mL BENZODIAZEPINES >/=200 ng/mL COCAINE >/=300 ng/mL OPIATES >/=300 ng/mL PCP >/=25 ng/mL THC >/=50 ng/mL Performed By: #### C MP, CBCDIF, ALCO #### [facility] [address] [place] [address] ECG COMPLETEon 03-16-2023 ECG COMPLETE NAME : MCKINLEY ROMAN PID : [id number] : 1985 Gender : Male Race : ORD : [id number] Procedure Date : Mar 16 2023 21:19:27 Edit Date : Mar 18 2023 20:35:50 Diagnosis:Normal sinus rhythm Normal ECG No previous ECGs available Confirmed by Diana Keen M.D. ([id number]) on 03/18/2023 8:35:40 PM Ventricular Rate : 84 BPM Atrial Rate : 84 BPM P-R Interval : 148 ms QRS Duration : 100 ms Q-T Interval : 388 ms QTC Calculation(Bezet) : 458 ms P [place] : 50 degrees R [place] : 25 degrees T [place] : 39 degrees Test Reason : Location :[facility] Overread By : Diana Keen M.D. Editted By : Diana Keen M.D. Referred By : , Acquired by : [id number], [facility] ED NOTEon 03-16-2023 ED NOTE HNO ID: [id number] Author: ESPERANZA NOE, JASVIR Service: ? Author Type: Registered Nurse Type: ED Notes Filed: 03/16/2023 21:08 Note Text: Pt presents to the ED with a chief complaint of alcohol and cocaine use. [facility] ED NOTE HNO ID: [id number] Author: AFSHAN MCCRAY, RN Service: Nursing Author Type: Registered Nurse Type: ED Notes Filed: 03/15/2023 22:34 Note Text: Patient no longer wants to be seen, in waiting room. [facility] ED PROV NOTEon 03-16-2023 ED PROV NOTE HNO ID: [id number] Author: GOSIA LARSON DO Service: ? Author Type: Physician Type: ED Provider Notes Filed: 03/15/2023 22:33 Note Text: ED Provider Note Patient Name: Mckinley Roman : 1985 SERVICE DATE: 03/15/23 History No chief complaint on file. 38-year-old male who has a history of alcohol abuse has been here 3 times in the last 3 days. Patient currently does not have any complaints. Patient does not want to answer questions. He is awake alert. Patient admits to drinking alcohol. Patient has no current complaints not homicidal not suicidal. PAST MEDICAL HISTORY Diagnosis Date - Alcohol abuse - Psychiatric disorder No past surgical history on file. No family history on file. Social History Tobacco Use - Smoking status: Some Days Types: Cigarettes - Smokeless tobacco: Not on file Vaping Use - Vaping Use: current everyday user Substance and Sexual Activity - Alcohol use: Yes Comment: 3- fifths daily - Drug use: Yes Types: Cocaine, Amphetamines Comment: last used noon on Wednesday - Sexual activity: Not on file ALLERGIES No Known Allergies Review of Systems Constitutional: Negative. HENT: Negative. Eyes: Negative. Respiratory: Negative. Cardiovascular: Negative. Gastrointestinal: Negative. Genitourinary: Negative. Musculoskeletal: Negative. Skin: Negative. Psychiatric/Behavioral: Negative. All other systems reviewed and are negative. Physical Exam Vitals BP Pulse Temp Temp src Resp SpO2 Weight Height -- -- -- -- -- -- -- -- Physical Exam Vitals and nursing note reviewed. Constitutional: General: He is not in acute distress. Appearance: He is not ill-appearing, toxic-appearing or diaphoretic. HENT: Head: Normocephalic and atraumatic. Nose: Nose normal. Mouth/Throat: Mouth: Mucous membranes are moist. Eyes: Extraocular Movements: Extraocular movements intact. Conjunctiva/sclera: Conjunctivae normal. Pupils: Pupils are equal, round, and reactive to light. Pulmonary: Effort: Pulmonary effort is normal. Breath sounds: Normal breath sounds. Abdominal: General: Abdomen is flat. Palpations: Abdomen is soft. Musculoskeletal: General: No deformity. Cervical back: Normal range of motion. Skin: Coloration: Skin is not jaundiced or pale. Neurological: General: No focal deficit present. Mental Status: He is alert. Comments: Moving all extremities equally. Diagnostic Testing ED Labs Ordered and Reviewed - No data to display Procedures ED Course / Clinical Impression Clinical Impressions as of 03/15/232232 Alcohol abuse MDM / Disposition / Plan MEDICAL DECISION MAKING Number and Complexity of Problems Differential Diagnosis: Alcohol intoxication, malingering, MDM Data External documents reviewed previous discharge summary, prior admission notes, and prior inpatient notes. My EKG interpretation: My CT interpretation: My X-ray interpretation: My Ultrasound interpretation: Tests considered but not ordered Decision rules/scores evaluated: Discussed with: Treatment and Disposition ED Course: Patient is a known patient to the emergency department who lingers and comes to urgent at night when [employer] closes because he has secondary gain and malingering of wanting a place to stay. We have offered him ability to go to the [facility] as well as yesterday the hospital had purchased him a bus ticket to get back to his home in [place] as patient has been discharged now 3 times for which the patient refused to get on the bus and states that he would not leave. Patient evaluated in triage she reiterated that he does not have any current complaints. No chest pain no nausea no vomiting does admit to drinking alcohol but he is not clinically intoxicated at this point time where he is unsafe for discharge. Patient not homicidal not suicidal there is no indication for laboratory testing or further evaluation. Patient again reiterates that he has no current medical complaints. Social determinants of health that impact treatment or disposition Shared decision making: Code status: Disposition The patient was discharged. Admission considered: See MDM narrative SIGNATURE: DO Dima TAYLOR THOMAS 03/15/23 2233 Normal [facility] Alcoholon 03-15-2023 Ethanol [Mass/Vol] 158 mg/dL High 0.0-20.0 [facility] Comment on above: Performed By: #### C MP, TROPI, ALCO, CBCDIF #### [facility] [address] [place], [place] [phone] Ethanol [Mass/Vol] 296 mg/dL High 0.0-20.0 [facility] Comment on above: Performed By: #### C MP, TROPI, ALCO, CBCDIF #### [facility] [address] [place] [address] CBCDIFon 03-15-2023 Abs Baso 0.04 k/uL Normal 0-0.2 [facility] Comment on above: Performed By: #### C MP, TROPI, ALCO, CBCDIF #### [facility] [address] [place] [address] Abs [place] 0.50 k/uL Normal 0-0.8 [facility] Comment on above: Performed By: #### C MP, TROPI, ALCO, CBCDIF #### [facility] [address] [place] [address] Abs Neut 2.73 k/uL Normal 1.8-7.7 [facility] Comment on above: Performed By: #### C MP, TROPI, ALCO, CBCDIF #### [facility] [address] [place] [address] Basophils/100 WBC (Bld) 0.6 % Normal 0-1 [facility] Comment on above: Performed By: #### C MP, TROPI, ALCO, CBCDIF #### [facility] [address] [place] [address] Eosinophils (Bld) [#/Vol] 0.15 10*3/uL Normal 0-0.4 [facility] Comment on above: Performed By: #### C MP, TROPI, ALCO, CBCDIF #### [facility] [address] [place] [address] Eosinophils/100 WBC (Bld) 2.1 % Normal 0-4 [facility] Comment on above: Performed By: #### C MP, TROPI, ALCO, CBCDIF #### [facility] [address] [place] [address] Erythrocyte distribution width (RBC) [Ratio] 13.4 % Normal 11.5-14.5 [facility] Comment on above: Performed By: #### C MP, TROPI, ALCO, CBCDIF #### [facility] [address] [place] [address] Hematocrit (Bld) [Volume fraction] 43.9 % Normal 41.0-53.0 [facility] Comment on above: Performed By: #### C MP, TROPI, ALCO, CBCDIF #### [facility] [address] [place] [address] Hemoglobin (Bld) [Mass/Vol] 16.1 g/dL Normal 13.5-17.5 [facility] Comment on above: Performed By: #### C MP, TROPI, ALCO, CBCDIF #### [facility] [address] [place] [address] Immature Gran 0.10 % Normal 0-1.9 [facility] Comment on above: Performed By: #### C MP, TROPI, ALCO, CBCDIF #### [facility] [address] [place] [address] Lymphocytes (Bld) [#/Vol] 3.72 10*3/uL Normal 1.0-4.0 [facility] Comment on above: Performed By: #### C MP, TROPI, ALCO, CBCDIF #### [facility] [address] [place] [address] Lymphocytes/100 WBC (Bld) 52.0 % High 22-44 [facility] Comment on above: Performed By: #### C MP, TROPI, ALCO, CBCDIF #### [facility] [address] [place] [address] MCH 30.3 pG Normal 26-34 [facility] Comment on above: Performed By: #### C MP, TROPI, ALCO, CBCDIF #### [facility] [address] [place] [address] MCHC (RBC) [Mass/Vol] 36.7 g/dL Normal 31-37 [facility] Comment on above: Performed By: #### C MP, TROPI, ALCO, CBCDIF #### [facility] [address] [place] [address] MCV (RBC) [Entitic vol] 82.5 fL Normal 80-100 [facility] Comment on above: Performed By: #### C MP, TROPI, ALCO, CBCDIF #### [facility] [address] [place] [address] Monocytes/100 WBC (Bld) 7.0 % Normal 4-12 [facility] Comment on above: Performed By: #### C MP, TROPI, ALCO, CBCDIF #### [facility] [address] [place] [address] Neutrophils/100 WBC (Bld) 38.2 % Low 40-70 [facility] Comment on above: Performed By: #### C MP, TROPI, ALCO, CBCDIF #### [facility] [address] [place] [address] NRBCs 0 /100 WBC Normal 0-0.9 [facility] Comment on above: Performed By: #### C MP, TROPI, ALCO, CBCDIF #### [facility] [address] [place] [address] Platelets (Bld) [#/Vol] 378 10*3/uL Normal 150-450 [facility] Comment on above: Performed By: #### C MP, TROPI, ALCO, CBCDIF #### [facility] [address] [place] [address] RBC (Bld) [#/Vol] 5.32 10*6/uL Normal 4.50-5.90 [facility] Comment on above: Performed By: #### C MP, TROPI, ALCO, CBCDIF #### [facility] [address] [place] [address] WBC (Bld) [#/Vol] 7.15 10*3/uL Normal 4.5-11.0 [facility] Comment on above: Performed By: #### C MP, TROPI, ALCO, CBCDIF #### [facility] [address] [place] [address] COVID,FLU,RSV PCRon 03-15-19 Influenza A PCR Negative Normal Negative for Influenza A by RT PCR [facility] Comment on above: Performed By: #### C MP, CBCDIF, ALCO #### [facility] [address] [place] [address] Influenza B PCR Negative Normal Negative for Influenza B by RT PCR [facility] Comment on above: Performed By: #### C MP, CBCDIF, ALCO #### [facility] [address] [place] [address] RSV by PCR Negative Normal Negative for RSV viral RNA by PCR [facility] Comment on above: Performed By: #### C MP, CBCDIF, ALCO #### [facility] [address] [place] [address] SARS-CoV-2 (COVID-19) RNA KARIN+probe Ql (Unsp spec) Negative Normal Negative for COVID-19 (SARS-CoV2) by PCR [facility] Comment on above: Result Comment: This test has been authorized by the FDA under an Emergency Use Authorization (EUA). It has been validated in accordance with the FDA's Guidance Document Policy for Diagnostic Testing in Laboratories Certified to Perform High Complexity Testing under CLIA prior to EUA for Coronavirus Disease 2019 during the Public Health Emergency issued on March 29, 2019. Performed By: #### C MP, CBCDIF, ALCO #### [facility] [address] [place] [address] Comp Metabolic Panelon 03-15 Albumin [Mass/Vol] 4.4 g/dL Normal 3.5-5.0 [facility] Comment on above: Performed By: #### C MP, TROPI, ALCO, CBCDIF #### [facility] [address] [place] [address] Alkaline Phos 84 U/L Normal 38-125 [facility] Comment on above: Performed By: #### C MP, TROPI, ALCO, CBCDIF #### [facility] [address] [place] [address] ALT [Catalytic activity/Vol] 48 U/L Normal 0-49 [facility] Comment on above: Performed By: #### C MP, TROPI, ALCO, CBCDIF #### [facility] [address] [place] [address] Anion gap [Moles/Vol] 17 mmol/L High 0-15 [facility] Comment on above: Performed By: #### C MP, TROPI, ALCO, CBCDIF #### [facility] [address] [place] [address] AST [Catalytic activity/Vol] 48 U/L Normal 17-59 [facility] Comment on above: Performed By: #### C MP, TROPI, ALCO, CBCDIF #### [facility] [address] [facility] [place] [address] Bilirubin [Mass/Vol] 0.4 mg/dL Normal 0.2-1.3 [facility] Comment on above: Performed By: #### C MP, TROPI, ALCO, CBCDIF #### [facility] [address] [facility] [place] [address] Calcium [Mass/Vol] 8.7 mg/dL Normal 8.4-10.2 [facility] Comment on above: Performed By: #### C MP, TROPI, ALCO, CBCDIF #### [facility] [address] [place] [address] Chloride [Moles/Vol] 113 mmol/L High 98-107 [facility] Comment on above: Performed By: #### C MP, TROPI, ALCO, CBCDIF #### [facility] [address] [place] [address] CO2 [Moles/Vol] 20 mmol/L Low 22-30 [facility] Comment on above: Performed By: #### C MP, TROPI, ALCO, CBCDIF #### [facility] [address] [place] [address] Creatinine [Mass/Vol] 0.88 mg/dL Normal 0.66-1.25 [facility] Comment on above: Performed By: #### C MP, TROPI, ALCO, CBCDIF #### [facility] [address] [place] [address] eGFR Amer >60 Normal >60 [facility] Comment on above: Result Comment: MDRD calculation used for eGFR results. Performed By: #### C MP, TROPI, ALCO, CBCDIF #### [facility] [address] [place] [address] eGFR non Am >60 Normal >60 [facility] Comment on above: Performed By: #### C MP, TROPI, ALCO, CBCDIF #### [facility] [address] [facility] [place] [address] Glucose [Mass/Vol] 104 mg/dL Normal 74-106 [facility] Comment on above: Performed By: #### C MP, TROPI, ALCO, CBCDIF #### [facility] [address] [place] [address] Potassium [Moles/Vol] 3.9 mmol/L Normal 3.5-5.1 [facility] Comment on above: Performed By: #### C MP, TROPI, ALCO, CBCDIF #### [facility] [address] [place] [address] Protein [Mass/Vol] 7.8 g/dL Normal 6.2-8.2 [facility] Comment on above: Performed By: #### C MP, TROPI, ALCO, CBCDIF #### [facility] [address] [place] [address] Sodium [Moles/Vol] 146 mmol/L High 137-145 [facility] Comment on above: Performed By: #### C MP, TROPI, ALCO, CBCDIF #### [facility] [address] [place] [address] Urea nitrogen [Mass/Vol] 19 mg/dL Normal 9-20 [facility] Comment on above: Performed By: #### C MP, TROPI, ALCO, CBCDIF #### [facility] [address] [place] [address] ED NOTEon 03-15-2023 ED NOTE HNO ID: [id number] Author: UNRULY OCASIO RN Service: ? Author Type: Registered Nurse Type: ED Notes Filed: 03/15/2023 09:09 Note Text: Patient requesting to be discharged. Patient denies any SI/HI at this time. Patient alert and oriented x 3. Discussed POC with patient and informed him of attempts to transfer patient or assist patient with transportation back to his home town. Patient declines and states that he does not wish to return there. Patient alert and oriented x 3. Calm and cooperative, in control of self. MD notified. Patient discharged at this time. Normal [facility] ED NOTE HNO ID: [id number] Author: EDENILSON MARTINEZ RN Service: ? Author Type: Registered Nurse Type: ED Notes Filed: 03/14/2023 23:24 Note Text: Requested sitter from RN furnace room supervisor, Anju Bae, who states one is not available [facility] ED NOTE HNO ID: [id number] Author: EDENILSON MARTINEZ RN Service: ? Author Type: Registered Nurse Type: ED Notes Filed: 03/14/2023 22:26 Note Text: Pt presents in ED with complaint of alcohol intoxication and suicidal ideation. Pt is aggressive during triage assessment, answers questions, but shouts answers. It states he does know what month it is. Plan of care for this pt is to monitor for changes in status and to maintain pt safety and comfort. Normal [facility] ED PROV NOTEon 03-15-2023 ED PROV NOTE HNO ID: [id number] Author: DIANA KEEN MD Service: Emergency Medicine Author Type: Physician Type: ED Provider Notes Filed: 03/15/2023 08:59 Note Text: ED Provider Note Patient Name: Mckinley Roman : 1985 SERVICE DATE: 03/14/23 History Patient presents with: Alcohol Problem Psychiatric Problem Suicidal Ideation HPI PAST MEDICAL HISTORY Diagnosis Date Alcohol abuse Psychiatric disorder History reviewed. No pertinent surgical history. No family history on file. Social History Tobacco Use Smoking status: Some Days Types: Cigarettes Smokeless tobacco: Not on file Vaping Use Vaping Use: current everyday user Substance and Sexual Activity Alcohol use: Yes Comment: 3- fifths daily Drug use: Yes Types: Cocaine, Amphetamines Comment: last used noon on Wednesday Sexual activity: Not on file ALLERGIES No Known Allergies Review of Systems Physical Exam Vitals [03/14/239] BP Pulse Temp Temp src Resp SpO2 Weight Height 133/87 (!) 91 36.7 ?C (98.1 ?F) Oral 20 97 % 104.3 kg (230 lb) 1.803 m (5' 11 ) Physical Exam Diagnostic Testing ED Labs Ordered and Reviewed COMP METABOLIC PANEL - Abnormal; Notable for the following components: Result Value Ref Range Sodium 146 (*) 137 - 145 mmol/L Chloride 113 (*) 98 - 107 mmol/L CO2 20 (*) 22 - 30 mmol/L Anion Gap 17 (*) 0 - 15 All other components within normal limits CBC + DIFF - Abnormal; Notable for the following components: Neut% 38.2 (*) 40 - 70 % Lymph% 52.0 (*) 22 - 44 % All other components within normal limits ALCOHOL/ETHANOL BLD - Abnormal; Notable for the following components: Ethanol 296 (*) 0.0 - 20.0 mg/dL All other components within normal limits ALCOHOL/ETHANOL BLD - Abnormal; Notable for the following components: Ethanol 158 (*) 0.0 - 20.0 mg/dL All other components within normal limits URINALYSIS, DIPSTICK ONLY TOX SCREEN ROUT UR COVID AND INFLUENZA A/B AND RSV NAAT, EXPEDITED Procedures ED Course / Clinical Impression Clinical Impressions as of 03/15/23 0859 Alcoholic intoxication without complication (HCC) COVID-19 test performed per [facility] [place] policy for suspected COVID community exposure. MDM / Disposition / Plan MDM Patient seen by me at 9 AM. He denies any suicidal or homicidal ideation he wants to go home. Patient stated that he is homeless. Intake contacted. Pat d/c SIGNATURE: MD Dima Delacruz IMRAAN 03/15/23 0859 [facility] ED PROV NOTE HNO ID: [id number] Author: JERRY PHILLIPS JR, MD Service: ? Author Type: Physician Type: ED Provider Notes Filed: 03/17/2023 06:07 Note Text: ED Provider Note Patient Name: Mckinley Roman : 1985 SERVICE DATE: 03/14/23 History Patient presents with: Alcohol Problem Psychiatric Problem Suicidal Ideation This patient is a 38-year-old male who presents to the ED with alcohol intoxication. The onset was tonight. The patient has had multiple visits to the ED intoxicated. Tonight he complains of suicidal ideation. He does not have a plan. The patient is aggressive with the nurses during his assessment. 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 No family history on file. Social History Tobacco Use Smoking status: Some Days Types: Cigarettes Smokeless tobacco: Not on file Vaping Use Vaping Use: current everyday user Substance and Sexual Activity Alcohol use: Yes Comment: 3- fifths daily Drug use: Yes Types: Cocaine, Amphetamines Comment: last used noon on Wednesday Sexual activity: Not on file ALLERGIES No Known Allergies Review of Systems Constitutional: Negative. HENT: Negative. Eyes: Negative. Respiratory: Negative. Cardiovascular: Negative. Gastrointestinal: Negative. Genitourinary: Negative. Musculoskeletal: Negative. Skin: Negative. Psychiatric/Behavioral: Positive for agitation and behavioral problems. Physical Exam Vitals BP Pulse Temp Temp src Resp SpO2 Weight Height -- -- -- -- -- -- -- -- Physical Exam Vitals and nursing note reviewed. Constitutional: Appearance: He is well-developed. HENT: Head: Normocephalic and atraumatic. Nose: Nose normal. Eyes: Conjunctiva/sclera: Conjunctivae normal. Pupils: Pupils are equal, round, and reactive to light. Cardiovascular: Rate and Rhythm: Normal rate and regular rhythm. Heart sounds: Normal heart sounds. Pulmonary: Effort: Pulmonary effort is normal. Breath sounds: Normal breath sounds. Abdominal: General: Bowel sounds are normal. Palpations: Abdomen is soft. Musculoskeletal: General: Normal range of motion. Cervical back: Normal range of motion and neck supple. Skin: General: Skin is warm and dry. Neurological: Mental Status: He is alert and oriented to person, place, and time. Diagnostic Testing ED Labs Ordered and Reviewed - No data to display Procedures ED Course / Clinical Impression Clinical Impressions as of 03/17/23 0606 Alcoholic intoxication without complication (HCC) MDM / Disposition / Plan MEDICAL DECISION MAKING Number and Complexity of Problems the patient presents to the ED with alcohol intoxication and suicidal thoughts. The complexity is mild Differential Diagnosis: Includes alcohol intoxication, suicidal thoughts MDM Data External documents reviewed . My EKG interpretation: Not applicable My CT interpretation: Not applicable My X-ray interpretation: Not applicable My Ultrasound interpretation: Not applicable Tests considered but not ordered Decision rules/scores evaluated: Discussed with: Treatment and Disposition ED Course: The patient presents to the ED with alcohol intoxication and suicidal ideation. The serum alcohol was 296 on admission. The patient will be seen by intake when the serum alcohol is below the legal limit. The patient was discharged with follow-up as needed. Social determinants of health that impact treatment or disposition Shared decision making: Code status: Discussion with regarding code status. Code status determined as Full Management Radiology Reports No orders to display All Labs ED Labs Ordered and Reviewed COMP METABOLIC PANEL - Abnormal Result Value Glucose 104 BUN 19 Creatinine 0.88 eGFR-All Other Races >60 eGFR- >60 Sodium 146 (*) Potassium 3.9 Chloride 113 (*) CO2 20 (*) Anion Gap 17 (*) AST 48 ALT 48 Alkaline Phosphatase 84 Bilirubin, Total 0.4 Calcium 8.7 Protein, Total 7.8 Albumin 4.4 CBC + DIFF - Abnormal WBC 7.15 RBC 5.32 Hemoglobin 16.1 Hematocrit 43.9 MCV 82.5 MCH 30.3 MCHC 36.7 RDW-CV 13.4 Platelet Count 378 NRBC 0 Neut% 38.2 (*) Abs Neut (ANC) 2.73 Lymph% 52.0 (*) Abs Lymph 3.72 [place]% 7.0 Abs [place] 0.50 Eosin% 2.1 Abs Eosin 0.15 Baso% 0.6 Abs Baso 0.04 Immature Gran 0.10 ALCOHOL/ETHANOL BLD - Abnormal Ethanol 296 (*) ALCOHOL/ETHANOL BLD - Abnormal Ethanol 158 (*) URINALYSIS, DIPSTICK ONLY Color Yellow Clarity Clear Specific [place], Ur 1.018 pH, Urine 6.0 Protein, Urine Negative Glucose, Urine Negative Ketones, Urine Negative Bilirubin, Urine Negative Hemoglobin/Blood,Ur Negative Nitrites Negative Urobilinogen <2.0 [facility] Negative Comment Value: MICROSCOPIC ANALYSIS NOT DONE ON URINES WITH NEGATIVE BIOC (more content not included)... Normal [facility] Urinalysison 03-15-2023 Bilirubin Ql (U) Negative Normal Negative [facility] Comment on above: Performed By: #### C MP, TROPI, ALCO, CBCDIF #### [facility] [address] [place] [address] Clarity (U) Clear Normal Clear [facility] Comment on above: Performed By: #### C MP, TROPI, ALCO, CBCDIF #### [facility] [address] [place] [address] Color (U) Yellow Normal Yellow [facility] Comment on above: Performed By: #### C MP, TROPI, ALCO, CBCDIF #### [facility] [address] [place] [address] Comments MICROSCOPIC ANALYSIS NOT DONE ON URINES WITH NEGATIVE BIOCHEMICAL TESTS Normal [facility] Comment on above: Performed By: #### C MP, TROPI, ALCO, CBCDIF #### [facility] [address] [place] [address] Glucose Ql (U) Negative Normal Negative [facility] Comment on above: Performed By: #### C MP, TROPI, ALCO, CBCDIF #### [facility] [address] [place] [address] Hemoglobin/Blood Negative Normal Negative [facility] Comment on above: Performed By: #### C MP, TROPI, ALCO, CBCDIF #### [facility] [address] [place] [address] Ketone Negative Normal Negative [facility] Comment on above: Performed By: #### C MP, TROPI, ALCO, CBCDIF #### [facility] [address] [place] [address] Leukest Negative Normal Negative [facility] Comment on above: Performed By: #### C MP, TROPI, ALCO, CBCDIF #### [facility] [address] [place] [address] Nitrite Ql (U) Negative Normal Negative [facility] Comment on above: Performed By: #### C MP, TROPI, ALCO, CBCDIF #### [facility] [address] [place] [address] pH (U) 6.0 [pH] Normal 5-7 [facility] Comment on above: Performed By: #### C MP, TROPI, ALCO, CBCDIF #### [facility] [address] [place] [address] Protein Ql (U) Negative Normal Negative [facility] Comment on above: Performed By: #### C MP, TROPI, ALCO, CBCDIF #### [facility] [address] [place] [address] Urine Spec [place] 1.018 Normal 1.005-1.030 [facility] Comment on above: Performed By: #### C MP, TROPI, ALCO, CBCDIF #### [facility] [address] [place] [address] Urobilinogen (U) [Mass/Vol] mg/dL Normal 0.0-1.0 [facility] Comment on above: Performed By: #### C MP, TROPI, ALCO, CBCDIF #### [facility] [address] [place] [address] Urine Drug Screenon 03-15-19 24 Urine Amphetamines Not detected Normal None Detected [facility] Comment on above: Performed By: #### U DRSCR ####[facility] [address], [place] [phone] Urine Barbiturates Not detected Normal None Detected [facility] Comment on above: Performed By: #### U DRSCR ####[facility] [address], [place] [phone] Urine Benzos Not detected Normal None Detected [facility] Comment on above: Performed By: #### U DRSCR ####[facility] [address]qs[address] [facility], [place] [phone] Urine Cocaine Not detected Normal None Detected [facility] Comment on above: Performed By: #### U DRSCR ####[facility] [address], [place] [phone] Urine Opiates Not detected Normal None Detected [facility] Comment on above: Performed By: #### U DRSCR ####[facility] [address], [place] [phone] Urine PCP Not detected Normal None Detected [facility] Comment on above: Performed By: #### U DRSCR ####[facility] [address], [place] [phone] Urine THC Not detected Normal None Detected [facility] Comment on above: Performed By: #### U DRSCR ####[facility] [address], [place] [phone] COMMENT Test results are unconfirmed by this method and must not be used for non-medical purposes. Normal [facility] Comment on above: Result Comment: CUTOFF THRESHOLD FOR RESULT OF DETECTED : AMPHETAMINES >/=1000 ng/mL BARBITURATES >/=200 ng/mL BENZODIAZEPINES >/=200 ng/mL COCAINE >/=300 ng/mL OPIATES >/=300 ng/mL PCP >/=25 ng/mL THC >/=50 ng/mL Performed By: #### U DRSCR ####[facility] [address] [place], [place] [phone] Alcoholon 03-14-2023 Ethanol [Mass/Vol] 107 mg/dL High 0.0-20.0 [facility] Comment on above: Performed By: #### C MP, TROPI, ALCO, CBCDIF #### [facility] [address] [place] [address] Ethanol [Mass/Vol] 136 mg/dL High 0.0-20.0 [facility] Comment on above: Performed By: #### C MP, TROPI, ALCO, CBCDIF #### [facility] [address] [facility] [place] [address] Ethanol [Mass/Vol] 265 mg/dL High 0.0-20.0 [facility] Comment on above: Performed By: #### C MP, CBCDIF, ALCO #### [facility] [address] [facility] [place] [address] CBCDIFon 03-14-2023 Abs Baso 0.05 k/uL Normal 0-0.2 [facility] Comment on above: Performed By: #### C MP, CBCDIF, ALCO #### [facility] [address] [place] [address] Abs Huer[place] 0.54 k/uL Normal 0-0.8 [facility] Comment on above: Performed By: #### C MP, CBCDIF, ALCO #### [facility] [address] [facility] [place] [address] Abs Neut 2.88 k/uL Normal 1.8-7.7 [facility] Comment on above: Performed By: #### C MP, CBCDIF, ALCO #### [facility] [address] [place] [address] Basophils/100 WBC (Bld) 0.6 % Normal 0-1 [facility] Comment on above: Performed By: #### C MP, CBCDIF, ALCO #### [facility] [address] [place] [address] Eosinophils (Bld) [#/Vol] 0.17 10*3/uL Normal 0-0.4 [facility] Comment on above: Performed By: #### C MP, CBCDIF, ALCO #### [facility] [address] [place] [address] Eosinophils/100 WBC (Bld) 2.2 % Normal 0-4 [facility] Comment on above: Performed By: #### C MP, CBCDIF, ALCO #### [facility] [address] [place] [address] Erythrocyte distribution width (RBC) [Ratio] 13.5 % Normal 11.5-14.5 [facility] Comment on above: Performed By: #### C MP, CBCDIF, ALCO #### [facility] [address] [place] [address] Hematocrit (Bld) [Volume fraction] 45.0 % Normal 41.0-53.0 [facility] Comment on above: Performed By: #### C MP, CBCDIF, ALCO #### [facility] [address] [facility] [place] [address] Hemoglobin (Bld) [Mass/Vol] 16.1 g/dL Normal 13.5-17.5 [facility] Comment on above: Performed By: #### C MP, CBCDIF, ALCO #### [facility] [address] [place] [address] Immature Gran 0.10 % Normal 0-1.9 [facility] Comment on above: Performed By: #### C MP, CBCDIF, ALCO #### [facility] [address] [place] [address] Lymphocytes (Bld) [#/Vol] 4.08 10*3/uL High 1.0-4.0 [facility] Comment on above: Performed By: #### C MP, CBCDIF, ALCO #### [facility] [address] [place] [address] Lymphocytes/100 WBC (Bld) 52.8 % High 22-44 [facility] Comment on above: Performed By: #### C MP, CBCDIF, ALCO #### [facility] [address] [place] [address] MCH 29.5 pG Normal 26-34 [facility] Comment on above: Performed By: #### C MP, CBCDIF, ALCO #### [facility] [address] [place] [address] MCHC (RBC) [Mass/Vol] 35.8 g/dL Normal 31-37 [facility] Comment on above: Performed By: #### C MP, CBCDIF, ALCO #### [facility] [address] [place] [address] MCV (RBC) [Entitic vol] 82.4 fL Normal 80-100 [facility] Comment on above: Performed By: #### C MP, CBCDIF, ALCO #### [facility] [address] [place] [address] Monocytes/100 WBC (Bld) 7.0 % Normal 4-12 [facility] Comment on above: Performed By: #### C MP, CBCDIF, ALCO #### [facility] [address] [place] [address] Neutrophils/100 WBC (Bld) 37.3 % Low 40-70 [facility] Comment on above: Performed By: #### C MP, CBCDIF, ALCO #### [facility] [address] [place] [address] NRBCs 0 /100 WBC Normal 0-0.9 [facility] Comment on above: Performed By: #### C MP, CBCDIF, ALCO #### [facility] [address] [place] [address] Platelets (Bld) [#/Vol] 361 10*3/uL Normal 150-450 [facility] Comment on above: Performed By: #### C MP, CBCDIF, ALCO #### [facility] [address] [place] [address] RBC (Bld) [#/Vol] 5.46 10*6/uL Normal 4.50-5.90 [facility] Comment on above: Performed By: #### C MP, CBCDIF, ALCO #### [facility] [address] [place] [address] WBC (Bld) [#/Vol] 7.73 10*3/uL Normal 4.5-11.0 [facility] Comment on above: Performed By: #### C MP, CBCDIF, ALCO #### [facility] [address] [place] [address] COVID,FLU,RSV PCRon 03-14-19 Influenza A PCR Negative Normal Negative for Influenza A by RT PCR [facility] Comment on above: Performed By: #### A RPPCR ####[facility] Hrj81971 [place], [place] [phone] Influenza B PCR Negative Normal Negative for Influenza B by RT PCR [facility] Comment on above: Performed By: #### A RPPCR ####[facility] Lzy26709 [place], [place] [phone] RSV by PCR Negative Normal Negative for RSV viral RNA by PCR [facility] Comment on above: Performed By: #### A RPPCR ####[facility] Rab68262 [place], [place] [phone] SARS-CoV-2 (COVID-19) RNA KARIN+probe Ql (Unsp spec) Negative Normal Negative for COVID-19 (SARS-CoV2) by PCR [facility] Comment on above: Result Comment: This test has been authorized by the FDA under an Emergency Use Authorization (EUA). It has been validated in accordance with the FDA's Guidance Document Policy for Diagnostic Testing in Laboratories Certified to Perform High Complexity Testing under CLIA prior to EUA for Coronavirus Disease 2019 during the Public Health Emergency issued on March 29, 2019. Performed By: #### A RPPCR ####[facility] Tdi98097 [place], [place] [phone] Comp Metabolic Panelon 03-14 Albumin [Mass/Vol] 4.6 g/dL Normal 3.5-5.0 [facility] Comment on above: Performed By: #### C MP, CBCDIF, ALCO #### [facility] [address] [place] [address] Alkaline Phos 80 U/L Normal 38-125 [facility] Comment on above: Performed By: #### C MP, CBCDIF, ALCO #### [facility] [address] [place] [address] ALT [Catalytic activity/Vol] 38 U/L Normal 0-49 [facility] Comment on above: Performed By: #### C MP, CBCDIF, ALCO #### [facility] [address] [place] [address] Anion gap [Moles/Vol] 15 mmol/L Normal 0-15 [facility] Comment on above: Performed By: #### C MP, CBCDIF, ALCO #### [facility] [address] [place] [address] AST [Catalytic activity/Vol] 34 U/L Normal 17-59 [facility] Comment on above: Performed By: #### C MP, CBCDIF, ALCO #### [facility] [address] [place] [address] Bilirubin [Mass/Vol] 0.3 mg/dL Normal 0.2-1.3 [facility] Comment on above: Performed By: #### C MP, CBCDIF, ALCO #### [facility] [address] [facility] [place] [address] Calcium [Mass/Vol] 9.2 mg/dL Normal 8.4-10.2 [facility] Comment on above: Performed By: #### C MP, CBCDIF, ALCO #### [facility] [address] [place] [address] Chloride [Moles/Vol] 113 mmol/L High 98-107 [facility] Comment on above: Performed By: #### C MP, CBCDIF, ALCO #### [facility] [address] [place] [address] CO2 [Moles/Vol] 22 mmol/L Normal 22-30 [facility] Comment on above: Performed By: #### C MP, CBCDIF, ALCO #### [facility] [address] [place] [address] Creatinine [Mass/Vol] 1.15 mg/dL Normal 0.66-1.25 [facility] Comment on above: Performed By: #### C MP, CBCDIF, ALCO #### [facility] [address] [facility] [place] [address] eGFR Amer >60 Normal >60 [facility] Comment on above: Result Comment: MDRD calculation used for eGFR results. Performed By: #### C MP, CBCDIF, ALCO #### [facility] [address] [facility] [place] [address] eGFR non Am >60 Normal >60 [facility] Comment on above: Performed By: #### C MP, CBCDIF, ALCO #### [facility] [address] [place] [address] Glucose [Mass/Vol] 102 mg/dL Normal 74-106 [facility] Comment on above: Performed By: #### C MP, CBCDIF, ALCO #### [facility] [address] [place] [address] Potassium [Moles/Vol] 4.2 mmol/L Normal 3.5-5.1 [facility] Comment on above: Performed By: #### C MP, CBCDIF, ALCO #### [facility] [address] [place] [address] Protein [Mass/Vol] 7.8 g/dL Normal 6.2-8.2 [facility] Comment on above: Performed By: #### C MP, CBCDIF, ALCO #### [facility] [address] [place] [address] Sodium [Moles/Vol] 146 mmol/L High 137-145 [facility] Comment on above: Performed By: #### C MP, CBCDIF, ALCO #### [facility] [address] [place] [address] Urea nitrogen [Mass/Vol] 18 mg/dL Normal 9-20 [facility] Comment on above: Performed By: #### C MP, CBCDIF, ALCO #### [facility] [address] [place] [address] ED NOTEon 03-14-2023 ED NOTE HNO ID: [id number] Author: ESPERANZA NOE RN Service: ? Author Type: Registered Nurse Type: ED Notes Filed: 03/14/2023 06:29 Note Text: Blood sent to lab for repeat alcohol Normal [facility] ED NOTE HNO ID: [id number] Author: BRIAN PURCELL RN Service: Nursing Author Type: Registered Nurse Type: ED Notes Filed: 03/13/2023 23:49 Note Text: Labs drawn-nasal swab obtained-sent to lab Normal [facility] ED NOTE HNO ID: [id number] Author: BRIAN PURCELL RN Service: ? Author Type: Registered Nurse Type: ED Notes Filed: 03/13/2023 23:28 Note Text: Bed: ED-13 Expected date: 03/13/23 Expected time: 11:13 PM [facility] arrival: [facility] Comments: [facility] ED PROV NOTEon 03-14-2023 ED PROV NOTE HNO ID: [id number] Author: DIANA KEEN MD Service: Emergency Medicine Author Type: Physician Type: ED Provider Notes Filed: 03/14/2023 06:48 Note Text: ED Provider Note Patient Name: Mckinley Roman : 1985 SERVICE DATE: 03/13/23 History Patient presents with: Alcohol Problem: Arrived via squad from [facility]-police called 911 to have patient transported to ED for an evaluation-patient states he drinks a lot -also used drugs-all of them-patient states he is homeless-seen here last night for same Illness Location: [place] , meth use , homeless , from [place] Quality: [place] Severity: Moderate Onset quality: Gradual Duration: for a while. Timing: Constant Chronicity: Chronic Context: [place] Relieved by: Nothing Worsened by: Drug / etoh Associated symptoms: no chest pain, no shortness of breath, no sore throat and no vomiting PAST MEDICAL HISTORY Diagnosis Date Alcohol abuse Psychiatric disorder History reviewed. No pertinent surgical history. No family history on file. Social History Tobacco Use Smoking status: Some Days Types: Cigarettes Smokeless tobacco: Not on file Vaping Use Vaping Use: current everyday user Substance and Sexual Activity Alcohol use: Yes Comment: 3- fifths daily Drug use: Yes Types: Cocaine, Amphetamines Comment: last used noon on Wednesday Sexual activity: Not on file ALLERGIES No Known Allergies Review of Systems Constitutional: Negative. HENT: Negative for sore throat. Eyes: Negative. Respiratory: Negative for shortness of breath. Cardiovascular: Negative for chest pain. Gastrointestinal: Negative for vomiting. Genitourinary: Negative. Musculoskeletal: Negative. Skin: Negative. Psychiatric/Behavioral: Negative. All other systems reviewed and are negative. Physical Exam Vitals [03/13/23 2330] BP Pulse Temp Temp src Resp SpO2 Weight Height 169/92 89 36.1 ?C (97 ?F) Temporal 20 97 % 104.3 kg (230 lb) -- Physical Exam Vitals and nursing note reviewed. Constitutional: Appearance: He is well-developed. HENT: Head: Normocephalic and atraumatic. Right Ear: External ear normal. Left Ear: External ear normal. Nose: Nose normal. Mouth/Throat: Mouth: Mucous membranes are moist. Pharynx: Oropharynx is clear. Eyes: Extraocular Movements: Extraocular movements intact. Conjunctiva/sclera: Conjunctivae normal. Pupils: Pupils are equal, round, and reactive to light. Cardiovascular: Rate and Rhythm: Normal rate and regular rhythm. Pulses: Normal pulses. Carotid pulses are 2+ on the right side and 2+ on the left side. Heart sounds: Normal heart sounds, S1 normal and S2 normal. No murmur heard. No gallop. Pulmonary: Effort: Pulmonary effort is normal. Breath sounds: Normal breath sounds. Abdominal: General: Bowel sounds are normal. Palpations: Abdomen is soft. Musculoskeletal: General: Normal range of motion. Cervical back: Normal range of motion and neck supple. Skin: General: Skin is warm and dry. Capillary Refill: Capillary refill takes less than 2 seconds. Neurological: General: No focal deficit present. Mental Status: He is alert and oriented to person, place, and time. Psychiatric: Mood and Affect: Mood normal. Behavior: Behavior normal. Diagnostic Testing ED Labs Ordered and Reviewed COMP METABOLIC PANEL - Abnormal; Notable for the following components: Result Value Ref Range Sodium 146 (*) 137 - 145 mmol/L Chloride 113 (*) 98 - 107 mmol/L All other components within normal limits ALCOHOL/ETHANOL BLD - Abnormal; Notable for the following components: Ethanol 265 (*) 0.0 - 20.0 mg/dL All other components within normal limits CBC + DIFF - Abnormal; Notable for the following components: Neut% 37.3 (*) 40 - 70 % Lymph% 52.8 (*) 22 - 44 % Abs Lymph 4.08 (*) 1.0 - 4.0 k/uL All other components within normal limits URINALYSIS, DIPSTICK ONLY TOX SCREEN ROUT UR ALCOHOL/ETHANOL BLD ALCOHOL/ETHANOL BLD COVID AND INFLUENZA A/B AND RSV NAAT, EXPEDITED Procedures ED Course / Clinical Impression Clinical Impressions as of 03/14/23 0647 Alcoholic intoxication without complication (HCC) COVID-19 test performed per [facility] [place] policy for suspected COVID community exposure. MDM / Disposition / Plan MEDICAL DECISION MAKING Number and Complexity of Problems Differential Diagnosis: Alcohol and drugs homelessness MDM Data External documents reviewed prior inpatient notes. My EKG interpretation: My CT interpretation: My X-ray interpretation: My Ultrasound interpretation: Tests considered but not ordered Decision rules/scores evaluated: Discussed with: Treatment and Disposition ED Course: Homeless alcohol abuse patient meth abuse came to emergency room for evaluation. He was seen here last in for the same. He denies any suicidal homicidal ideation. On examination he is awake answer simple question vital signs ar (more content not included)... Normal [facility] Urinalysison 03-14-2023 Bilirubin Ql (U) Negative Normal Negative [facility] Comment on above: Performed By: #### U A ####[facility] [id number] [place], [place] [phone] Clarity (U) Clear Normal Clear [facility] Comment on above: Performed By: #### U A ####[facility] Txb12470 [facility], [place] [phone] Color (U) Yellow Normal Yellow [facility] Comment on above: Performed By: #### U A ####[facility] Rzp78541 [place], [place] [phone] Comments MICROSCOPIC ANALYSIS NOT DONE ON URINES WITH NEGATIVE BIOCHEMICAL TESTS Normal [facility] Comment on above: Performed By: #### U A ####[facility] Ppl94326 [place], [place] [phone] Glucose Ql (U) Negative Normal Negative [facility] Comment on above: Performed By: #### U A ####[facility] Oaj84934 [place], [place] [phone] Hemoglobin/Blood Negative Normal Negative [facility] Comment on above: Performed By: #### U A ####[facility] Ifm26251 [place], [place] [phone] Ketone Negative Normal Negative [facility] Comment on above: Performed By: #### U A ####[facility] Hqw29505 [place], [place] [phone] Leukest Negative Normal Negative [facility] Comment on above: Performed By: #### U A ####[facility] Ikw51191 [place], [place] [phone] Nitrite Ql (U) Negative Normal Negative [facility] Comment on above: Performed By: #### U A ####[facility] Xim29[address] [place], [place] [phone] pH (U) 5.0 [pH] Normal 5-7 [facility] Comment on above: Performed By: #### U A ####[facility] Sda070[address] [place], [place] [phone] Protein Ql (U) Negative Normal Negative [facility] Comment on above: Performed By: #### U A ####[facility] Ngm46772 [place], [place] [phone] Urine Spec [place] 1.021 Normal 1.005-1.030 [facility] Comment on above: Performed By: #### U A ####[facility] Blm16747 [address] [place], [place] [phone] Urobilinogen (U) [Mass/Vol] mg/dL Normal 0.0-1.0 [facility] Comment on above: Performed By: #### U A ####[facility] Ujh67655 [address] [place] [phone] Urine Drug Screenon 03-14-19 24 Urine Amphetamines Not detected Normal None Detected [facility] Comment on above: Performed By: #### U DRSCR ####[facility] Fzb76[address] [place], [place] [phone] Urine Barbiturates Not detected Normal None Detected [facility] Comment on above: Performed By: #### U DRSCR ####[facility] Vhu87958 [facility] [place] [place] [phone] Urine Benzos Not detected Normal None Detected [facility] Comment on above: Performed By: #### U DRSCR ####[facility] Cgi26263 [facility] [place] [phone] Urine Cocaine Not detected Normal None Detected [facility] Comment on above: Performed By: #### U DRSCR ####[facility] Bod[address] [place], [place] [phone] Urine Opiates Not detected Normal None Detected [facility] Comment on above: Performed By: #### U DRSCR ####[facility] Iuv09755 [facility] [place] [phone] Urine PCP Not detected Normal None Detected [facility] Comment on above: Performed By: #### U DRSCR ####[facility] Zgq71638 [facility] [place] [phone] Urine THC Not detected Normal None Detected [facility] Comment on above: Performed By: #### U DRSCR ####[facility] Wcu55417 [facility], [place] [phone] COMMENT Test results are unconfirmed by this method and must not be used for non-medical purposes. Normal [facility] Comment on above: Result Comment: CUTOFF THRESHOLD FOR RESULT OF DETECTED : AMPHETAMINES >/=1000 ng/mL BARBITURATES >/=200 ng/mL BENZODIAZEPINES >/=200 ng/mL COCAINE >/=300 ng/mL OPIATES >/=300 ng/mL PCP >/=25 ng/mL THC >/=50 ng/mL Performed By: #### U DRSCR ####[facility] [id number] [place], [place] [phone] Alcoholon 03-13-2023 Ethanol [Mass/Vol] 72 mg/dL High 0.0-20.0 [facility] Comment on above: Performed By: #### C MP, CBCDIF, ALCO #### [facility] [address] [place], [place] [phone] Ethanol [Mass/Vol] 242 mg/dL High 0.0-20.0 [facility] Comment on above: Performed By: #### C MP, TROPI, ALCO, CBCDIF #### [facility] [address] [place], [place] [phone] CBCDIFon 03-13-2023 Abs Baso 0.06 k/uL Normal 0-0.2 [facility] Comment on above: Performed By: #### C MP, TROPI, ALCO, CBCDIF #### [facility] [address] [place] [address] Abs Huer[place] 0.37 k/uL Normal 0-0.8 [facility] Comment on above: Performed By: #### C MP, TROPI, ALCO, CBCDIF #### [facility] [address] [place] [address] Abs Neut 3.46 k/uL Normal 1.8-7.7 [facility] Comment on above: Performed By: #### C MP, TROPI, ALCO, CBCDIF #### [facility] Lab [address] [place] [address] Basophils/100 WBC (Bld) 0.8 % Normal 0-1 [facility] Comment on above: Performed By: #### C MP, TROPI, ALCO, CBCDIF #### [facility] Lab [address] [place] [address] Eosinophils (Bld) [#/Vol] 0.26 10*3/uL Normal 0-0.4 [facility] Comment on above: Performed By: #### C MP, TROPI, ALCO, CBCDIF #### [facility] [address] [place] [address] Eosinophils/100 WBC (Bld) 3.4 % Normal 0-4 [facility] Comment on above: Performed By: #### C MP, TROPI, ALCO, CBCDIF #### [facility] [address] [place] [address] Erythrocyte distribution width (RBC) [Ratio] 13.2 % Normal 11.5-14.5 [facility] Comment on above: Performed By: #### C MP, TROPI, ALCO, CBCDIF #### [facility] [address] [place] [address] Hematocrit (Bld) [Volume fraction] 44.5 % Normal 41.0-53.0 [facility] Comment on above: Performed By: #### C MP, TROPI, ALCO, CBCDIF #### [facility] [address] [place] [address] Hemoglobin (Bld) [Mass/Vol] 16.3 g/dL Normal 13.5-17.5 [facility] Comment on above: Performed By: #### C MP, TROPI, ALCO, CBCDIF #### [facility] [address] [facility] [place] [address] Immature Gran 0.10 % Normal 0-1.9 [facility] Comment on above: Performed By: #### C MP, TROPI, ALCO, CBCDIF #### [facility] [address] [place] [address] Lymphocytes (Bld) [#/Vol] 3.41 10*3/uL Normal 1.0-4.0 [facility] Comment on above: Performed By: #### C MP, TROPI, ALCO, CBCDIF #### [facility] [address] [place] [address] Lymphocytes/100 WBC (Bld) 45.0 % High 22-44 [facility] Comment on above: Performed By: #### C MP, TROPI, ALCO, CBCDIF #### [facility] [address] [place] [address] MCH 29.8 pG Normal 26-34 [facility] Comment on above: Performed By: #### C MP, TROPI, ALCO, CBCDIF #### [facility] [address] [place] [address] MCHC (RBC) [Mass/Vol] 36.6 g/dL Normal 31-37 [facility] Comment on above: Performed By: #### C MP, TROPI, ALCO, CBCDIF #### [facility] [address] [facility] [place] [address] MCV (RBC) [Entitic vol] 81.4 fL Normal 80-100 [facility] Comment on above: Performed By: #### C MP, TROPI, ALCO, CBCDIF #### [facility] Lab [address] [facility] [address] Monocytes/100 WBC (Bld) 4.9 % Normal 4-12 [facility] Comment on above: Performed By: #### C MP, TROPI, ALCO, CBCDIF #### [facility] Lab [address] [place] [address] Neutrophils/100 WBC (Bld) 45.8 % Normal 40-70 [facility] Comment on above: Performed By: #### C MP, TROPI, ALCO, CBCDIF #### [facility] Lab [address] [place] [address] NRBCs 0 /100 WBC Normal 0-0.9 [facility] Comment on above: Performed By: #### C MP, TROPI, ALCO, CBCDIF #### [facility] Lab [address] [place] [address] Platelets (Bld) [#/Vol] 384 10*3/uL Normal 150-450 [facility] Comment on above: Performed By: #### C MP, TROPI, ALCO, CBCDIF #### [facility] Lab [address] [place] [address] RBC (Bld) [#/Vol] 5.47 10*6/uL Normal 4.50-5.90 [facility] Comment on above: Performed By: #### C MP, TROPI, ALCO, CBCDIF #### [facility] [address] [facility] [place] [address] WBC (Bld) [#/Vol] 7.57 10*3/uL Normal 4.5-11.0 [facility] Comment on above: Performed By: #### C MP, TROPI, ALCO, CBCDIF #### [facility] [address] [place] [address] Comp Metabolic Panelon 03-13 Albumin [Mass/Vol] 4.8 g/dL Normal 3.5-5.0 [facility] Comment on above: Performed By: #### C MP, TROPI, ALCO, CBCDIF #### [facility] [address] [place] [address] Alkaline Phos 88 U/L Normal 38-125 [facility] Comment on above: Performed By: #### C MP, TROPI, ALCO, CBCDIF #### [facility] [address] [place] [address] ALT [Catalytic activity/Vol] 34 U/L Normal 0-49 [facility] Comment on above: Performed By: #### C MP, TROPI, ALCO, CBCDIF #### [facility] [address] [place] [address] Anion gap [Moles/Vol] 18 mmol/L High 0-15 [facility] Comment on above: Performed By: #### C MP, TROPI, ALCO, CBCDIF #### [facility] [address] [place] [address] AST [Catalytic activity/Vol] 32 U/L Normal 17-59 [facility] Comment on above: Performed By: #### C MP, TROPI, ALCO, CBCDIF #### [facility] [address] [place] [address] Bilirubin [Mass/Vol] 0.3 mg/dL Normal 0.2-1.3 [facility] Comment on above: Performed By: #### C MP, TROPI, ALCO, CBCDIF #### [facility] [address] [place] [address] Calcium [Mass/Vol] 9.4 mg/dL Normal 8.4-10.2 [facility] Comment on above: Performed By: #### C MP, TROPI, ALCO, CBCDIF #### [facility] [address] [place] [address] Chloride [Moles/Vol] 112 mmol/L High 98-107 [facility] Comment on above: Performed By: #### C MP, TROPI, ALCO, CBCDIF #### [facility] [address] [place] [address] CO2 [Moles/Vol] 20 mmol/L Low 22-30 [facility] Comment on above: Performed By: #### C MP, TROPI, ALCO, CBCDIF #### [facility] [address] [place] [address] Creatinine [Mass/Vol] 0.96 mg/dL Normal 0.66-1.25 [facility] Comment on above: Performed By: #### C MP, TROPI, ALCO, CBCDIF #### [facility] [address] [place] [address] eGFR Amer >60 Normal >60 [facility] Comment on above: Result Comment: MDRD calculation used for eGFR results. Performed By: #### C MP, TROPI, ALCO, CBCDIF #### [facility] [address] [place] [address] eGFR non Am >60 Normal >60 [facility] Comment on above: Performed By: #### C MP, TROPI, ALCO, CBCDIF #### [facility] [address] [place] [address] Glucose [Mass/Vol] 133 mg/dL High 74-106 [facility] Comment on above: Performed By: #### C MP, TROPI, ALCO, CBCDIF #### [facility] [address] [place] [address] Potassium [Moles/Vol] 3.6 mmol/L Normal 3.5-5.1 [facility] Comment on above: Performed By: #### C MP, TROPI, ALCO, CBCDIF #### [facility] [address] [place] [address] Protein [Mass/Vol] 8.1 g/dL Normal 6.2-8.2 [facility] Comment on above: Performed By: #### C MP, TROPI, ALCO, CBCDIF #### [facility] [address] [place] [address] Sodium [Moles/Vol] 146 mmol/L High 137-145 [facility] Comment on above: Performed By: #### C MP, TROPI, ALCO, CBCDIF #### [facility] [address] [place] [address] Urea nitrogen [Mass/Vol] 13 mg/dL Normal 9-20 [facility] Comment on above: Performed By: #### C MP, TROPI, ALCO, CBCDIF #### [facility] [address] [place] [address] ED NOTEon 03-13-2023 ED NOTE HNO ID: [id number] Author: DAVEY STUBBS RN Service: Nursing Author Type: Registered Nurse Type: ED Notes Filed: 03/13/2023 07:48 Note Text: Patient discharged from the ED. Discharge instructions reviewed with patient. IV removed. Patient left the ED with his belongings. [facility] ED NOTE HNO ID: [id number] Author: DAVEY STUBBS RN Service: Nursing Author Type: Registered Nurse Type: ED Notes Filed: 03/13/2023 07:48 Note Text: Patient awake in room yelling out NURSE you need to get me out of this ER immediately. I am not going to stay her against my will anymore. Informed patient as soon as ETOH result is back we will discuss plan of care. Patient continuing to yell out at this RN being disruptive. Security called to bedside. [facility] ED NOTE HNO ID: [id number] Author: LYLY ALVAREZ RN Service: ? Author Type: Registered Nurse Type: ED Notes Filed: 03/12/2023 23:13 Note Text: In by EMS from [facility] that he has an alcohol and drug problem and wants help- states he is from [place], [place] and recently came here- patient is homeless- answers questions but seems annoyed - has no ID and is unable to provide a S.S. number for arrival Normal [facility] ED PROV NOTEon 03-13-2023 ED PROV NOTE HNO ID: [id number] Author: JERRY PHILLIPS JR, MD Service: ? Author Type: Physician Type: ED Provider Notes Filed: 03/13/2023 07:25 Note Text: ED Provider Note Patient Name: Mckinley Roman : 1985 SERVICE DATE: 03/12/23 History Patient presents with: Alcohol Problem: In by EMS from [facility] he has an alcohol problem and wants help HPI PAST MEDICAL HISTORY Diagnosis Date Alcohol abuse Psychiatric disorder History reviewed. No pertinent surgical history. No family history on file. Social History Tobacco Use Smoking status: Some Days Types: Cigarettes Smokeless tobacco: Not on file Vaping Use Vaping Use: current everyday user Substance and Sexual Activity Alcohol use: Yes Comment: 3- fifths daily Drug use: Yes Types: Cocaine, Amphetamines Comment: last used noon on Wednesday Sexual activity: Not on file ALLERGIES No Known Allergies Review of Systems Physical Exam Vitals [03/12/23 2304] BP Pulse Temp Temp src Resp SpO2 Weight Height 132/66 77 -- -- 20 96 % 104.3 kg (230 lb) 1.803 m (5' 11 ) Physical Exam Diagnostic Testing ED Labs Ordered and Reviewed COMP METABOLIC PANEL - Abnormal; Notable for the following components: Result Value Ref Range Glucose 133 (*) 74 - 106 mg/dL Sodium 146 (*) 137 - 145 mmol/L Chloride 112 (*) 98 - 107 mmol/L CO2 20 (*) 22 - 30 mmol/L Anion Gap 18 (*) 0 - 15 All other components within normal limits CBC + DIFF - Abnormal; Notable for the following components: Lymph% 45.0 (*) 22 - 44 % All other components within normal limits ALCOHOL/ETHANOL BLD - Abnormal; Notable for the following components: Ethanol 242 (*) 0.0 - 20.0 mg/dL All other components within normal limits ALCOHOL/ETHANOL BLD - Abnormal; Notable for the following components: Ethanol 72 (*) 0.0 - 20.0 mg/dL All other components within normal limits TOX SCREEN ROUT UR Procedures ED Course / Clinical Impression Clinical Impressions as of 03/13/23 0723 ETOH abuse MDM / Disposition / Plan MDM I assumed care of this patient at 0700 hrs. The patient presents with alcohol intoxication. The repeat alcohol at 6:30 AM was 72. The patient is awake, alert, and ambulating without assistance. The patient will be discharged with follow-up as needed. SIGNATURE: Jerry Phillips Jr, MD, - JERRY PHILLIPS JR, MD 03/13/23 0725 [facility] ED PROV NOTE HNO ID: [id number] Author: DIANA KEEN MD Service: Emergency Medicine Author Type: Physician Type: ED Provider Notes Filed: 03/13/2023 04:04 Note Text: ED Provider Note Patient Name: Mckinley Roman : 1985 SERVICE DATE: 03/12/23 History Patient presents with: Alcohol Problem: In by EMS from [facility] he has an alcohol problem and wants help History provided by: EMS personnel History limited by: Mental status change (etoh) Illness Location: Etoh intoxication using meth wants help no suicidal ideation. Quality: Intox Severity: Mild Onset quality: Gradual Timing: Constant Chronicity: Chronic Context: Etoh Associated symptoms: no fever PAST MEDICAL HISTORY Diagnosis Date Alcohol abuse Psychiatric disorder History reviewed. No pertinent surgical history. No family history on file. Social History Tobacco Use Smoking status: Some Days Types: Cigarettes Smokeless tobacco: Not on file Vaping Use Vaping Use: current everyday user Substance and Sexual Activity Alcohol use: Yes Comment: 3- fifths daily Drug use: Yes Types: Cocaine, Amphetamines Comment: last used noon on Wednesday Sexual activity: Not on file ALLERGIES No Known Allergies Review of Systems Constitutional: Negative for fever. HENT: Negative. Eyes: Negative. Respiratory: Negative. Cardiovascular: Negative. Gastrointestinal: Negative. Genitourinary: Negative. Musculoskeletal: Negative. Skin: Negative. Psychiatric/Behavioral: Negative. All other systems reviewed and are negative. Physical Exam Vitals [03/12/23 2304] BP Pulse Temp Temp src Resp SpO2 Weight Height 132/66 77 -- -- 20 96 % 104.3 kg (230 lb) 1.803 m (5' 11 ) Physical Exam Vitals and nursing note reviewed. Constitutional: Appearance: He is well-developed. HENT: Head: Normocephalic and atraumatic. Right Ear: External ear normal. Left Ear: External ear normal. Nose: Nose normal. Mouth/Throat: Mouth: Mucous membranes are moist. Pharynx: Oropharynx is clear. Eyes: Extraocular Movements: Extraocular movements intact. Conjunctiva/sclera: Conjunctivae normal. Pupils: Pupils are equal, round, and reactive to light. Cardiovascular: Rate and Rhythm: Normal rate and regular rhythm. Pulses: Normal pulses. Carotid pulses are 2+ on the right side and 2+ on the left side. Heart sounds: Normal heart sounds, S1 normal and S2 normal. No murmur heard. No gallop. Pulmonary: Effort: Pulmonary effort is normal. Breath sounds: Normal breath sounds. Abdominal: General: Bowel sounds are normal. Palpations: Abdomen is soft. Musculoskeletal: General: Normal range of motion. Cervical back: Normal range of motion and neck supple. Skin: General: Skin is warm and dry. Capillary Refill: Capillary refill takes less than 2 seconds. Neurological: General: No focal deficit present. Mental Status: He is alert and oriented to person, place, and time. Psychiatric: Mood and Affect: Mood normal. Behavior: Behavior normal. Diagnostic Testing ED Labs Ordered and Reviewed COMP METABOLIC PANEL - Abnormal; Notable for the following components: Result Value Ref Range Glucose 133 (*) 74 - 106 mg/dL Sodium 146 (*) 137 - 145 mmol/L Chloride 112 (*) 98 - 107 mmol/L CO2 20 (*) 22 - 30 mmol/L Anion Gap 18 (*) 0 - 15 All other components within normal limits CBC + DIFF - Abnormal; Notable for the following components: Lymph% 45.0 (*) 22 - 44 % All other components within normal limits ALCOHOL/ETHANOL BLD - Abnormal; Notable for the following components: Ethanol 242 (*) 0.0 - 20.0 mg/dL All other components within normal limits TOX SCREEN ROUT UR Procedures ED Course / Clinical Impression Clinical Impressions as of 03/13/23 0404 ETOH abuse MDM / Disposition / Plan MEDICAL DECISION MAKING Number and Complexity of Problems Differential Diagnosis: Alcohol intoxication drug use MDM Data External documents reviewed prior inpatient notes. My EKG interpretation: My CT interpretation: My X-ray interpretation: My Ultrasound interpretation: Tests considered but not ordered Decision rules/scores evaluated: Discussed with: Treatment and Disposition ED Course: 38-year-old male from [facility] questionable homeless alcohol abuse found at [facility] brought in by squad because he was drinking using meth and wants help. No suicidal homicidal ideation. On examination he is awake he is alert vital signs are stable. No nystagmus. Neck is supple. Lungs are clear. Abdomen soft nontender. Social determinants of health that impact treatment or disposition Shared decision making: Code status: Management Radiology Reports No orders to display All Labs ED Labs Ordered and Reviewed COMP METABOLIC PANEL - Abnormal Result Value Glucose 133 (*) BUN 13 Creatinine 0.96 eGFR-All Other Races >60 eGFR- >60 Sodium 146 (*) Potassi (more content not included)... Normal [facility] ED NOTESon 03-06-2023 [facility] Ed Note Normal [facility] Ed Note Normal [facility] Ed Note Normal [facility] Ed Note Normal [facility] ED PROVIDER NOTESon 03-06-19 [facility] Ed Provider Note Normal [facility] Ed Provider Note Normal [facility] ED TRIAGEon 03-06-2023 [facility] Ed Triage Note Normal [facility] ETHANOLon 03-06-2023 COMMENT For Medical Purposes only. Abnormal [facility] Comment on above: Performed By: #### L [id number] ####[place] [phone] ETHANOL, SERUM/PLASMA 204 mg/dL High <10 [place] Comment on above: Performed By: #### L AB175 ####[place] [phone] PROGRESS NOTESon 03-01-2023 Cosmetologist Authentication Interface Message Text IPR Normal Provider Locations BASIC METABOLIC PANELon Anion gap [Moles/Vol] 13 mmol/L Normal 5-15 [place] Comment on above: Performed By: #### L [id number] ####[facility] [phone] Calcium [Mass/Vol] 9.0 mg/dL Normal 8.5-10.5 [facility] Comment on above: Performed By: #### L AB064 ####[place] [phone] Chloride [Moles/Vol] 105 mmol/L Normal 96-110 [facility] Comment on above: Performed By: #### L AB064 ####[place] [phone] CO2 [Moles/Vol] 22 mmol/L Normal 19-32 [facility] Comment on above: Performed By: #### L AB064 ####[place] [phone] Creatinine [Mass/Vol] 1.2 mg/dL Normal 0.5-1.4 [place] Comment on above: Performed By: #### L AB064 ####[place] [phone] ESTIMATED GFR 79 mL/min/1.73m*2 Normal >=60 [facility] Comment on above: Performed By: #### L AB064 ####[place] [phone] Glucose [Mass/Vol] 106 mg/dL High 70-99 [facility] Comment on above: Performed By: #### L AB064 ####[place] [phone] Potassium [Moles/Vol] 4.2 mmol/L Normal 3.4-5.3 [place] Comment on above: Performed By: #### L AB064 ####[place] [phone] Sodium [Moles/Vol] 140 mmol/L Normal 135-148 [facility] Comment on above: Performed By: #### L AB064 ####[place] [phone] Urea nitrogen [Mass/Vol] 16 mg/dL Normal 3-29 [facility] Comment on above: Performed By: #### L AB064 ####[place] [phone] Urea nitrogen/Creatinine [Mass ratio] 13 mg/mg Normal 7- [facility] Comment on above: Performed By: #### L AB064 ####[place] [phone] Anion gap [Moles/Vol] 13 mmol/L 5 - 15 [facility] Calcium [Mass/Vol] 9.0 mg/dL 8.5 - 10. 5 mg/dL [facility] Chloride [Moles/Vol] 105 mmol/L [facility] CO2 [Moles/Vol] 22 mmol/L [facility] Creatinine [Mass/Vol] 1.2 mg/dL 0.5 - 1.4 mg/dL [facility] GFR/1.73 sq M.predicted MDRD (S/P/Bld) [Vol rate/Area] 79 mL/min/{1.73_m2} - PINF [facility] Glucose [Mass/Vol] 106 mg/dL High 70 - 99 mg/dL [facility] Interpretation and review of laboratory results Abnormal [facility] Potassium [Moles/Vol] 4.2 mmol/L [facility] Sodium [Moles/Vol] 140 mmol/L [facility] Urea nitrogen [Mass/Vol] 16 mg/dL 3 - 29 mg/dL [facility] Urea nitrogen/Creatinine [Mass ratio] 13 mg/mg 7 - 25 [facility] CARE PLANon 02-16-2023 Cosmetologist Authentication Interface Message Text Normal [facility] COMPLETE BLOOD COUNTon 02-16 Erythrocyte distribution width (RBC) [Ratio] 13.4 % Normal <=15.0 [facility] Comment on above: Performed By: #### L AB118 ####[place] [phone] Hematocrit (Bld) [Volume fraction] 43.4 % Normal 37.5-51.0 [facility] Comment on above: Performed By: #### L AB118 ####[place] [phone] Hemoglobin (Bld) [Mass/Vol] 15.1 g/dL Normal 13.0-17.7 [facility] Comment on above: Performed By: #### L AB118 ####[place] [phone] MCH (RBC) [Entitic mass] 28.7 pg Normal 26.0-34.0 [facility] Comment on above: Performed By: #### L AB118 ####[place] [phone] MCHC (RBC) [Mass/Vol] 34.8 g/dL Normal 30.7-35.5 [place] Comment on above: Performed By: #### L AB118 ####[place] [phone] MCV (RBC) [Entitic vol] 82.5 fL Normal 80.0-100.0 [facility] Comment on above: Performed By: #### L AB118 ####[place] [phone] MEAN PLATELET VOLUME (FL) BY AUTOMATED COUNT 8.6 fL Normal 7.2-11.7 [facility] Comment on above: Performed By: #### L AB118 ####[place] [phone] NRBC (PER 100 WBCS) BY AUTOMATED COUNT 0 /100 WBCs Normal <=0 [facility] Comment on above: Performed By: #### L AB118 ####[place] [phone] PLATELETS (10*3/UL) BY AUTOMATED COUNT 270 K/uL Normal 140-400 [facility] Comment on above: Performed By: #### L AB118 ####[place] [phone] RBC (Bld) [#/Vol] 5.26 10*6/uL Normal 4.14-5.80 [facility] Comment on above: Performed By: #### L AB118 ####[place] [phone] TO SCAN RESULT USE SCAN ICON Normal [facility] Comment on above: Performed By: #### L AB118 ####[place] [phone] WBC (Bld) [#/Vol] 6.8 10*3/uL Normal 3.5-10.9 [facility] Comment on above: Performed By: #### L AB118 ####[place] [phone] Erythrocyte distribution width (RBC) [Ratio] 13.4 % NINF - 15.0 % [facility] Hematocrit (Bld) [Volume fraction] 43.4 % 37.5 - 51.0 % [facility] Hemoglobin (Bld) [Mass/Vol] 15.1 g/dL 13.0 - 17.7 g/dL [facility] MCH (RBC) [Entitic mass] 28.7 pg 26.0 - 34.0 pg [facility] MCHC (RBC) [Mass/Vol] 34.8 g/dL 30.7 - 35.5 g/dL [facility] MCV (RBC) [Entitic vol] 82.5 fL 80.0 - 100.0 fL [facility] Nucleated cells (Bld) [#/Vol] 0 NINF [facility] Platelet mean volume (Bld) [Entitic vol] 8.6 fL 7.2 - 11.7 fL [facility] Platelets (Bld) [#/Vol] 270 10*3/uL 140 - 400 K/uL [facility] RBC (Bld) [#/Vol] 5.26 10*6/uL [facility] Scan Result [facility] WBC corrected for nucl RBC Auto (Bld) [#/Vol] 6.8 K/uL 3.5 - 10.9 K/uL [facility] MEDICAL STAFFon 01-09-2024 Cosmetologist Authentication Interface Message Text Normal [facility] PROGRESS NOTESon 02-16-2023 Cosmetologist Authentication Interface Message Text Normal [facility] Cosmetologist Authentication Interface Message Text Per Carl at [facility], they will come to pick pt up at 1pm. [employer]er alerted to come to main entrance and to call department number on arrival. Baldo Espinoza Chemical Dependency Psychiatric Consult Liaison [phone] alternate extensions: [phone] Normal [facility] XR WRIST RIGHT MINIMUM 3 VIE WSon 02-16-2023 XR WRIST RIGHT MINIMUM 3 VIEWS Normal [facility] IMPRESSION: No acute osseous process. DICTATED BY ASIM LYNN D.O.Workstation ID:[id number] [facility] W[facility]ST RIGHT MINIM UM 3 VIEWS INDICATION: See [facility] for more information: Swelling of the right hand/wrist, Alcoholic intoxication without complication (HC CODE), Suicidal ideation, Generalized abdominal pain, Alcohol intoxication, uncomplicated (HC CODE), Depression, unspecified depression COMPARISON: None. TECHNIQUE: 3 views of the right wrist were obtained. FINDINGS: The osseous structures of the right wrist are intact without definite fracture or dislocation. The joint spaces are preserved. Soft tissues are unremarkable. Asim Ayala MD - 02/16/2023 XR WRIST RIGHT MINIMUM 3 VIEWS INDICATION: See [facility] for more information: Swelling of the right hand/wrist, Alcoholic intoxication without complication (HC CODE), Suicidal ideation, Generalized abdominal pain, Alcohol intoxication, uncomplicated (HC CODE), Depression, unspecified depression COMPARISON: None. TECHNIQUE: 3 views of the right wrist were obtained. FINDINGS: The osseous structures of the right wrist are intact without definite fracture or dislocation. The joint spaces are preserved. Soft tissues are unremarkable. IMPRESSION: No acute osseous process. DICTATED BY ASIM LYNN D.O.Workstation ID:[id number] [facility] XR WRIST RIGHT MINIMUM 3 VIE WSOrdered By: Asim Lynn on 02-16-2023 [facility] Work Phone: MEDICAL STAFFon 02-15-2023 Cosmetologist Authentication Interface Message Text Normal [facility] Cosmetologist Authentication Interface Message Text Normal [facility] PROGRESS NOTESon 02-15-2023 Cosmetologist Authentication Interface Message Text Normal [facility] Cosmetologist Authentication Interface Message Text Normal [facility] XR WRIST RIGHT MINIMUM 3 VIE WSon 02-15-2023 Radiology Study observation (narrative) [facility] CONSULTSon 02-14-2023 Cosmetologist Authentication Interface Message Text Normal [facility] MEDICAL STAFFon 02-14-2023 Cosmetologist Authentication Interface Message Text Normal [facility] PROGRESS NOTESon 02-14-2023 Cosmetologist Authentication Interface Message Text Normal [facility] BASIC METABOLIC PANELon Anion gap [Moles/Vol] 11 mmol/L Normal 5-15 [place] Comment on above: Performed By: #### L [id number] ####[place] [phone] Calcium [Mass/Vol] 8.2 mg/dL Low 8.5-10.5 [facility] Comment on above: Performed By: #### L [id number] ####[place] [phone] Chloride [Moles/Vol] 107 mmol/L Normal 96-110 [facility] Comment on above: Performed By: #### L AB064 ####[place] [phone] CO2 [Moles/Vol] 21 mmol/L Normal 19-32 [facility] Comment on above: Performed By: #### L AB064 ####[place] [phone] Creatinine [Mass/Vol] 1.1 mg/dL Normal 0.5-1.4 [facility] Comment on above: Performed By: #### L AB064 ####[place] [phone] ESTIMATED GFR 88 mL/min/1.73m*2 Normal >=60 [facility] Comment on above: Performed By: #### L AB064 ####[place] [phone] Glucose [Mass/Vol] 97 mg/dL Normal 70-99 [facility] Comment on above: Performed By: #### L AB064 ####[place] [phone] Potassium [Moles/Vol] 3.4 mmol/L Normal 3.4-5.3 [facility] Comment on above: Result Comment: Hemo lysis present. Result may be elevated. Performed By: #### L [id number] ####[place] [phone] Sodium [Moles/Vol] 139 mmol/L Normal 135-148 [facility] Comment on above: Performed By: #### L AB064 ####[place] [phone] Urea nitrogen [Mass/Vol] 20 mg/dL Normal 3-29 [facility] Comment on above: Performed By: #### L AB064 ####[place] [phone] Urea nitrogen/Creatinine [Mass ratio] 18 mg/mg Normal 7-25 [facility] Comment on above: Performed By: #### L AB064 ####[place] [phone] Anion gap [Moles/Vol] 11 mmol/L 5 - 15 Pre [facility] Calcium [Mass/Vol] 8.2 mg/dL Low 8.5 - 10. 5 mg/dL [facility] Chloride [Moles/Vol] 107 mmol/L [facility] CO2 [Moles/Vol] 21 mmol/L [facility] Creatinine [Mass/Vol] 1.1 mg/dL 0.5 - 1.4 mg/dL [facility] GFR/1.73 sq M.predicted MDRD (S/P/Bld) [Vol rate/Area] 88 mL/min/{1.73_m2} - PINF [facility] Glucose [Mass/Vol] 97 mg/dL 70 - 99 mg/dL [facility] Interpretation and review of laboratory results Abnormal [facility] Potassium [Moles/Vol] 3.4 mmol/L [facility] Comment on above: Hemolysis present. R esult may be elevated. Sodium [Moles/Vol] 139 mmol/L [facility] Urea nitrogen [Mass/Vol] 20 mg/dL 3 - 29 mg/dL [facility] Urea nitrogen/Creatinine [Mass ratio] 18 mg/mg 7 - 25 [facility] BEHAVIORAL ASSESSMENTon Cosmetologist Authentication Interface Message Text Normal [facility] CONSULTSon 02-13-2023 Cosmetologist Authentication Interface Message Text Normal [facility] MEDICAL STAFFon 02-13-2023 Cosmetologist Authentication Interface Message Text Normal [facility] PROGRESS NOTESon 02-13-2023 Cosmetologist Authentication Interface Message Text Normal [facility] BASIC METABOLIC PANELon Anion gap [Moles/Vol] 13 mmol/L Normal 5-15 [place] Comment on above: Performed By: #### L [id number] ####[place] [phone] Calcium [Mass/Vol] 8.5 mg/dL Normal 8.5-10.5 [facility] Comment on above: Performed By: #### L [id number] ####[place] [phone] Chloride [Moles/Vol] 106 mmol/L Normal 96-110 [facility] Comment on above: Performed By: #### L [id number] ####[place] [phone] CO2 [Moles/Vol] 22 mmol/L Normal 19-32 [facility] Comment on above: Performed By: #### L [id number] ####[place] [phone] Creatinine [Mass/Vol] 1.1 mg/dL Normal 0.5-1.4 [place] Comment on above: Performed By: #### L [id number] ####[place] [phone] ESTIMATED GFR 88 mL/min/1.73m*2 Normal >=60 [facility] Comment on above: Performed By: #### L [id number] ####[place] [phone] Glucose [Mass/Vol] 117 mg/dL High 70-99 [facility] Comment on above: Performed By: #### L [id number] ####[place] [phone] Potassium [Moles/Vol] 4.1 mmol/L Normal 3.4-5.3 [place] Comment on above: Result Comment: Hemo lysis present. Result may be elevated. Performed By: #### L [id number] ####[place] [phone] Sodium [Moles/Vol] 141 mmol/L Normal 135-148 [facility] Comment on above: Performed By: #### L [id number] ####[place] [phone] Urea nitrogen [Mass/Vol] 18 mg/dL Normal 3-29 [facility] Comment on above: Performed By: #### L [id number] ####[place] [phone] Urea nitrogen/Creatinine [Mass ratio] 16 mg/mg Normal 7-25 [facility] Comment on above: Performed By: #### L [id number] ####[place] [phone] Anion gap [Moles/Vol] 13 mmol/L 5 - 15 [facility] Calcium [Mass/Vol] 8.5 mg/dL 8.5 - 10. 5 mg/dL [facility] Chloride [Moles/Vol] 106 mmol/L [facility] CO2 [Moles/Vol] 22 mmol/L [facility] Creatinine [Mass/Vol] 1.1 mg/dL 0.5 - 1.4 mg/dL [facility] GFR/1.73 sq M.predicted MDRD (S/P/Bld) [Vol rate/Area] 88 mL/min/{1.73_m2} - PINF [facility] Glucose [Mass/Vol] 117 mg/dL High 70 - 99 mg/dL [facility] Interpretation and review of laboratory results Abnormal [facility] Potassium [Moles/Vol] 4.1 mmol/L [facility] Comment on above: Hemolysis present. R esult may be elevated. Sodium [Moles/Vol] 141 mmol/L [facility] Urea nitrogen [Mass/Vol] 18 mg/dL 3 - 29 mg/dL [facility] Urea nitrogen/Creatinine [Mass ratio] 16 mg/mg 7 - 25 [facility] BEHAVIORAL ASSESSMENTon Cosmetologist Authentication Interface Message Text Normal [facility] COMPLETE BLOOD COUNT WITH DI FFERENTIALon 02-12-2023 BASOPHILS ABSOLUTE COUNT (10*3/UL) BY AUTOMATED COUNT 0.0 K/uL Normal 0.0-0.3 [facility] Comment on above: Performed By: #### L [id number] ####[place] [phone] BASOPHILS RELATIVE PERCENT BY AUTOMATED COUNT 0.5 % Normal 0.0-2.0 [facility] Comment on above: Performed By: #### L [id number] ####[place] [phone] Eosinophils (Bld) [#/Vol] 0.0 10*3/uL Normal 0.0-0.5 [facility] Comment on above: Performed By: #### L [id number] ####[place] [phone] EOSINOPHILS RELATIVE PERCENT BY AUTOMATED COUNT 0.5 % Normal 0.0-5.0 [facility] Comment on above: Performed By: #### L [id number] ####[place] [phone] Erythrocyte distribution width (RBC) [Ratio] 13.4 % Normal <=15.0 [facility] Comment on above: Performed By: #### L [id number] ####[place] [phone] Hematocrit (Bld) [Volume fraction] 44.1 % Normal 37.5-51.0 [facility] Comment on above: Performed By: #### L [id number] ####[place] [phone] Hemoglobin (Bld) [Mass/Vol] 15.7 g/dL Normal 13.0-17.7 [facility] Comment on above: Performed By: #### L [id number] ####[place] [phone] Immature granulocytes (Bld) [#/Vol] 0.0 10*3/uL Normal 0.0-0.1 [facility] Comment on above: Performed By: #### L [id number] ####[place] [phone] Immature granulocytes/100 WBC (Bld) 0.2 % Normal <1.0 [facility] Comment on above: Performed By: #### L [id number] ####[place] [phone] LYMPHOCYTES ABSOLUTE COUNT (10*3/UL) BY AUTOMATED COUNT 3.1 K/uL Normal 0.9-4.1 [facility] Comment on above: Performed By: #### L [id number] ####[place] [phone] LYMPHOCYTES RELATIVE PERCENT BY AUTOMATED COUNT 37.8 % Normal 14.0-51.0 [facility] Comment on above: Performed By: #### L [id number] ####[place] [phone] MCH (RBC) [Entitic mass] 29.3 pg Normal 26.0-34.0 [facility] Comment on above: Performed By: #### L [id number] ####[place] [phone] MCHC (RBC) [Mass/Vol] 35.6 g/dL High 30.7-35.5 [place] Comment on above: Performed By: #### L [id number] ####[place] [phone] MCV (RBC) [Entitic vol] 82.3 fL Normal 80.0-100.0 [facility] Comment on above: Performed By: #### L [id number] ####[place] [phone] MEAN PLATELET VOLUME (FL) BY AUTOMATED COUNT 8.2 fL Normal 7.2-11.7 [facility] Comment on above: Performed By: #### L [id number] ####[place] [phone] MONOCYTES ABSOLUTE COUNT (10*3/UL) BY AUTOMATED COUNT 0.6 K/uL Normal 0.2-1.0 [facility] Comment on above: Performed By: #### L [id number] ####[place] [phone] MONOCYTES RELATIVE PERCENT BY AUTOMATED COUNT 7.4 % Normal 4.0-12.0 [facility] Comment on above: Performed By: #### L [id number] ####[place] [phone] NEUTROPHILS ABSOLUTE COUNT (10*3/UL) BY AUTOMATED COUNT 4.4 K/uL Normal 1.8-7.5 [facility] Comment on above: Performed By: #### L [id number] ####[place] [phone] NEUTROPHILS RELATIVE PERCENT BY AUTOMATED COUNT 53.6 % Normal 42.0-80.0 [facility] Comment on above: Performed By: #### L [id number] ####[place] [phone] NRBC (PER 100 WBCS) BY AUTOMATED COUNT 0 /100 WBCs Normal <=0 [facility] Comment on above: Performed By: #### L [id number] ####[place] [phone] PLATELETS (10*3/UL) BY AUTOMATED COUNT 435 K/uL High 140-400 [facility] Comment on above: Performed By: #### L [id number] ####[place] [phone] RBC (Bld) [#/Vol] 5.36 10*6/uL Normal 4.14-5.80 [facility] Comment on above: Performed By: #### L [id number] ####[place] [phone] TO SCAN RESULT USE SCAN ICON Normal [facility] Comment on above: Performed By: #### L [id number] ####[place] [phone] WBC (Bld) [#/Vol] 8.3 10*3/uL Normal 3.5-10.9 [facility] Comment on above: Performed By: #### L [id number] ####[place] [phone] Basophils (Bld) [#/Vol] 0.0 10*3/uL 0.0 - 0.3 K/uL [facility] Basophils/100 WBC (Bld) 0.5 % 0.0 - 2.0 % [facility] Eosinophils (Bld) [#/Vol] 0.0 10*3/uL 0.0 - 0.5 K/uL [facility] Eosinophils/100 WBC (Bld) 0.5 % 0.0 - 5.0 % [facility] Erythrocyte distribution width (RBC) [Ratio] 13.4 % NINF - 15.0 % [facility] Hematocrit (Bld) [Volume fraction] 44.1 % 37.5 - 51.0 % [facility] Hemoglobin (Bld) [Mass/Vol] 15.7 g/dL 13.0 - 17.7 g/dL [facility] Immature granulocytes (Bld) [#/Vol] 0.0 10*3/uL 0.0 - 0.1 K/uL [facility] Immature granulocytes/100 WBC (Bld) 0.2 % NINF - 1.0 % [facility] Interpretation and review of laboratory results Abnormal [facility] Lymphocytes (Bld) [#/Vol] 3.1 10*3/uL 0.9 - 4.1 K/uL [facility] Lymphocytes/100 WBC (Bld) 37.8 % 14.0 - 51.0 % [facility] MCH (RBC) [Entitic mass] 29.3 pg 26.0 - 34.0 pg [facility] MCHC (RBC) [Mass/Vol] 35.6 g/dL High 30.7 - 35.5 g/dL [facility] MCV (RBC) [Entitic vol] 82.3 fL 80.0 - 100.0 fL [facility] Monocytes (Bld) [#/Vol] 0.6 10*3/uL 0.2 - 1.0 K/uL [facility] Monocytes/100 WBC (Bld) 7.4 % 4.0 - 12.0 % [facility] Neutrophils (Bld) [#/Vol] 4.4 10*3/uL 1.8 - 7.5 K/uL [facility] Neutrophils/100 WBC (Bld) 53.6 % 42.0 - 80.0 % [facility] Nucleated cells (Bld) [#/Vol] 0 NINF [facility] Platelet mean volume (Bld) [Entitic vol] 8.2 fL 7.2 - 11.7 fL [facility] Platelets (Bld) [#/Vol] 435 10*3/uL High 140 - 400 K/uL [facility] RBC (Bld) [#/Vol] 5.36 10*6/uL [facility] Health Scan Result [facility] WBC corrected for nucl RBC Auto (Bld) [#/Vol] 8.3 K/uL 3.5 - 10.9 K/uL [facility] CONSULTSon 02-12-2023 Cosmetologist Authentication Interface Message Text Normal [facility] ED NOTESon 02-12-2023 [facility] Ed Note ED Note: Last filed note HNO ID: [id number] Author: Balbir Saldivar RN Service: ? Author Type: Registered Nurse Filed: 02/12/23 0546 Note Text: Pt resting comfortably. Respirations even and unlabored. Normal [facility] ED PROVIDER NOTESon 02-12-19 [facility] Ed Provider Note Normal [facility] Ed Provider Note Normal [facility] Php Ed Provider Note Normal [facility] ED TRIAGEon 02-12-2023 [facility] Ed Triage Note Normal [facility] ETHANOLon 02-12-2023 COMMENT For Medical Purposes only. Abnormal [facility] Comment on above: Performed By: #### L [id number] ####[place] [phone] ETHANOL, SERUM/PLASMA 259 mg/dL High <10 [place] Comment on above: Performed By: #### L AB175 ####[place] [phone] Ethanol [Mass/Vol] 259 mg/dL High NINF - 10 mg/dL [facility] Interpretation and review of laboratory results Abnormal [facility] For Medical Purposes only. [facility] GGTon 02-12-2023 Gamma glutamyl transferase [Catalytic activity/Vol] 66 U/L 0 - 100 U/L [facility] Interpretation and review of laboratory results Normal [facility] Gamma glutamyl transferase [Catalytic activity/Vol] 66 U/L Normal 0-100 [facility] Comment on above: Performed By: #### L [id number] ####[place] [phone] H[employer]Tate 02-12-2023 Cosmetologist Authentication Interface Message Text Normal [facility] HEPATIC FUNCTION PANELon Albumin [Mass/Vol] 4.1 g/dL Normal 3.5-5.2 [facility] Comment on above: Performed By: #### L [id number] ####[place] [phone] ALP [Catalytic activity/Vol] 108 U/L Normal 23-144 [facility] Comment on above: Performed By: #### L [id number] ####[place] [phone] ALT [Catalytic activity/Vol] 42 U/L Normal 0-60 [facility] Comment on above: Performed By: #### L [id number] ####[place] [phone] AST [Catalytic activity/Vol] 42 U/L Normal 0-46 [facility] Comment on above: Result Comment: Hemo lysis present. Results may be affected. Performed By: #### L [id number] ####[place] [phone] Bilirubin [Mass/Vol] 0.3 mg/dL Normal 0.0-1.2 [facility] Comment on above: Performed By: #### L [id number] ####[place] [phone] BILIRUBIN, DIRECT < Normal 0.0-0.4 [facility] Comment on above: Result Comment: Hemo lysis present. Results may be affected. Performed By: #### L [id number] ####[place] [phone] BILIRUBIN, INDIRECT Normal [facility] Comment on above: Result Comment: Unab le to calculate. Performed By: #### L [id number] ####[place] [phone] Protein [Mass/Vol] 6.8 g/dL Normal 6.0-8.3 [facility] Comment on above: Performed By: #### L [id number] ####[place] [phone] HEPATIC FUNCTION PANELOrdere d By: Mark Jose on 02-12-2023 Albumin [Mass/Vol] 4.1 g/dL 3.5 - 5.2 g/dL [facility] ALP [Catalytic activity/Vol] 108 U/L 23 - 144 U/L [facility] ALT [Catalytic activity/Vol] 42 U/L 0 - 60 U/L [facility] AST [Catalytic activity/Vol] 42 U/L 0 - 46 U/L [facility] Comment on above: Hemolysis present. R esults may be affected. Bilirubin [Mass/Vol] 0.3 mg/dL 0.0 - 1 .2 mg/dL [facility] Bilirubin.direct [Mass/Vol] mg/dL 0.0 - 0.4 mg/dL [facility] Comment on above: Hemolysis present. R esults may be affected. Bilirubin.indirect [Mass/Vol] [facility] Comment on above: Unable to calculate. Protein [Mass/Vol] 6.8 g/dL 6.0 - 8.3 g/dL [facility] LIPASEon 02-12-2023 Lipase [Catalytic activity/Vol] 28 U/L Normal 0-60 [facility] Comment on above: Performed By: #### L [id number] ####[place] [phone] Interpretation and review of laboratory results Normal [facility] Lipase [Catalytic activity/Vol] 28 U/L 0 - 60 U/L [facility] MAGNESIUM, SERUMon Magnesium [Mass/Vol] 2.2 mg/dL 1.4 - 2 .5 mg/dL [facility] Magnesium [Mass/Vol] 2.2 mg/dL Normal 1.4-2.5 [facility] Comment on above: Performed By: #### L [id number] ####[place] [phone] NURSING NOTEon 02-12-2023 Cosmetologist Authentication Interface Message Text Normal [facility] No Panel Informationon 02-12 Interpretation and review of laboratory results Normal [facility] PHOSPHORUSon 02-12-2023 Phosphate [Mass/Vol] 4.3 mg/dL 2.5 - 4 .5 mg/dL [facility] Phosphate [Mass/Vol] 4.3 mg/dL Normal 2.5-4.5 [facility] Comment on above: Performed By: #### L [id number] ####[place] [phone] ED NOTESon 02-10-2023 Php Ed Note Normal [facility] Php Ed Note Normal [facility] Php Ed Note ED Note: Last filed note HNO ID: [id number] Author: Yoana Madrid RN Service: ? Author Type: Registered Nurse Filed: 02/10/23 1421 Note Text: Bed: GRN18 Expected date: Expected time: Means of arrival: Comments: lupis [facility] ED PROVIDER NOTESon 02-10-19 [facility] Ed Provider Note Normal [facility] Ed Provider Note [facility] ED TRIAGEon 02-10-2023 [facility] Ed Triage Note Normal [facility] ED NOTESon 02-08-2023 [facility] Ed Note Normal [facility] Ed Note ED Note: Last filed note HNO ID: [id number] Author: Yoana Friedman RN Service: Emergency Medicine Author Type: Registered Nurse Filed: 02/08/23 0711 Note Text: Report given to Clotilde TAY. [facility] Ed Note [facility] Ed Note ED Note: Last filed note HNO ID: [id number] Author: Yoana Friedman RN Service: Emergency Medicine Author Type: Registered Nurse Filed: 02/08/23 0518 Note Text: Pt resting on cot, eyes closed. Resp even and unlabored. [facility] Ed Note ED Note: Last filed note HNO ID: [id number] Author: Yoana Friedman RN Service: Emergency Medicine Author Type: Registered Nurse Filed: 02/08/23 0403 Note Text: Pt resting on cot, no needs verbalized. Resp even and unlabored. [facility] Ed Note Normal [facility] Ed Note ED Note: Last filed note HNO ID: [id number] Author: Yoana Friedman RN Service: Emergency Medicine Author Type: Registered Nurse Filed: 02/08/23 010 Note Text: Pt resting on cot, eyes closed. No needs verbalized, resp even and unlabored. [facility] Ed Note ED Note: Last filed note HNO ID: [id number] Author: Yoana Friedman RN Service: Emergency Medicine Author Type: Registered Nurse Filed: 02/08/23101 Note Text: Pt provided PO snack. [facility] ED PROVIDER NOTESon 02-08-19 [facility] Ed Provider Note Normal [facility] Ed Provider Note [facility] ED TRIAGEon 02-08-2023 [facility] Ed Triage Note Normal [facility] PROGRESS NOTESon 02-08-2023 Cosmetologist Authentication Interface Message Text Normal [facility] ED NOTESon 01-16-2023 Php Ed Note Normal [facility] ED PROVIDER NOTESon 01-17-20 [facility] Ed Provider Note Normal [facility] Php Ed Provider Note Normal [facility] ED TRIAGEon 01-16-2023 [facility] Ed Triage Note Normal [facility] ED NOTESon 01-13-2023 Php Ed Note Normal [facility] Php Ed Note Normal [facility] ED PROVIDER NOTESon 01-14-20 [facility] Ed Provider Note Normal [facility] ED TRIAGEon 01-13-2023 [facility] Ed Triage Note Normal [facility] XR CHEST PA OR AP 1 VIEW (PO RTABLE)on 01-13-2023 XR CHEST PA OR AP 1 VIEW (PORTABLE) Normal [facility] BEHAVIORAL ASSESSMENTon 12-0 Cosmetologist Authentication Interface Message Text Normal [facility] CT HEAD WITHOUT CONTRASTon 1 03-11-2022 CT HEAD WITHOUT CONTRAST Normal [facility] IMPRESSION: No acute intracranial pathology. Dictated by: Umang England M.D.Workstation ID:[id number] [facility] CT HEAD WITHOUT CONT RAST Technique: Axial scans are obtained without contrast. Multiplanar reconstructions are performed. Dose reduction: KV and MA are adjusted by automated software to minimize exposure. History: INTOXICATION, FALL, COMPARISON: 11/01/2022 Findings: Ventricles are normal in size and position. There is no mass mass effect identified. No hemorrhage. No pathologic extra-axial fluid collections currently seen. The visualized paranasal sinuses are normally pneumatized. [facility] Umang Angeles MD - 01/08/2023 CT HEAD WITHOUT CONTRAST Technique: Axial scans are obtained without contrast. Multiplanar reconstructions are performed. Dose reduction: KV and MA are adjusted by automated software to minimize exposure. History: INTOXICATION, FALL, COMPARISON: 11/01/2022 Findings: Ventricles are normal in size and position. There is no mass mass effect identified. No hemorrhage. No pathologic extra-axial fluid collections currently seen. The visualized paranasal sinuses are normally pneumatized. IMPRESSION: No acute intracranial pathology. Dictated by: Umang England M.D.Workstation ID:[id number] [facility] HEAD WITHOUT CONTRASTOrde red By: Umang England on 01-08-2023 [facility] Work Phone: CT SPINE CERVICAL WITHOUT CO NTRASTon 01-08-2023 CT SPINE CERVICAL WITHOUT CONTRAST Normal [facility] IMPRESSION: No acute bony abnormality cervical spine. Some degenerative changes noted at C5-6 as described Dictated by: Umang MarteDWorkstation ID:[id number] [facility] Examination: CT SPIN E CERVICAL WITHOUT CONTRAST Comparison: None available TECHNIQUE: Axial scan cervical spine obtained with multiplanar reconstructions. Dose reduction: KV and MA adjusted by automated software to minimize exposure Findings: The cervical vertebral bodies normally aligned. Vertebral body height preserved. Mild disc space narrowing and small endplate osteophytes are seen at C5-C6. Vertebral body height preserved. Mild canal narrowing secondary to degenerative osteophytes at C5-6 with some uncovertebral disease causing mild bilateral neuroforaminal compromise. [facility] MD - 01/08/2023 Examination: CT SPINE CERVICAL WITHOUT CONTRAST Comparison: None available TECHNIQUE: Axial scan cervical spine obtained with multiplanar reconstructions. Dose reduction: KV and MA adjusted by automated software to minimize exposure Findings: The cervical vertebral bodies normally aligned. Vertebral body height preserved. Mild disc space narrowing and small endplate osteophytes are seen at C5-C6. Vertebral body height preserved. Mild canal narrowing secondary to degenerative osteophytes at C5-6 with some uncovertebral disease causing mild bilateral neuroforaminal compromise. IMPRESSION: No acute bony abnormality cervical spine. Some degenerative changes noted at C5-6 as described Dictated by: Umang MarteDWorkstation ID:[id number] [facility] DRUG SCREEN, URINEon 023 AMPHETAMINE, URINE Not detected Normal Not Detected [facility] Comment on above: Performed By: #### L [id number] ####[place] [phone] BARBITURATES, URINE Not detected Normal Not Detected [facility] Comment on above: Performed By: #### L [id number] ####[place] [phone] BENZODIAZEPINE, URINE Positive Abnormal Not Detected [facility] Comment on above: Result Comment: This is an unconfirmed result to be used for medical purposes only. Performed By: #### L [id number] ####[place] [phone] COCAINE, URINE Not detected Normal Not Detected [facility] Comment on above: Performed By: #### L [id number] ####[place] [phone] COMMENT The submitted urine specimen was screened for the presence of Abnormal [facility] Comment on above: Result Comment: the following compounds at the listed detection limits:Amphetamine, Methamphetamine 1000 ng/mlBarbituates 200 ng/mlBenzodiazepine 300 ng/mlCocaine Metabolite 300 ng/mlMarijuana (THC) 50 ng/mlOpiates 300 ng/ml Performed By: #### L [id number] ####[place] [phone] MARIJUANA (THC), URINE Not detected Normal Not Detected [facility] Comment on above: Performed By: #### L [id number] ####[place] [phone] OPIATES, URINE Not detected Normal Not Detected [facility] Comment on above: Performed By: #### L [id number] ####[place] [phone] Amphetamines (U) [Mass/Vol] Not detected Not Detected [facility] Barbiturates (U) [Mass/Vol] Not detected Not Detected [facility] Benzodiazepines (U) [Mass/Vol] Positive Abnormal Not Detected [facility] Comment on above: This is an unconfirm ed result to be used for medical purposes only. Benzoylecgonine (U) [Mass/Vol] Not detected Not Detected [facility] Interpretation and review of laboratory results Abnormal [facility] Opiates (U) [Mass/Vol] Not detected Not Detected [facility] Tetrahydrocannabinol (U) [Mass/Vol] Not detected Not Detected [facility] The submitted urine specimen was screened for the presence of the following compounds at the listed detection limits: Amphetamine, Methamphetamine 1000 ng/ml Barbituates 200 ng/ml Benzodiazepine 300 ng/ml Cocaine Metabolite 300 ng/ml Marijuana (THC) 50 ng/ml Opiates 300 ng/ml [facility] ED NOTESon 01-08-2023 [facility] Ed Note Normal [facility] Ed Note ED Note: Last filed note HNO ID: [id number] Author: Jennie Rebolledo RN Service: Emergency Medicine Author Type: Registered Nurse Filed: 01/08/23 1918 Note Text: [facility] arrives at this time [facility] Ed Note Normal [facility] Ed Note [facility] Ed Note ED Note: Last filed note HNO ID: [id number] Author: Jennie Rebolledo RN Service: Emergency Medicine Author Type: Registered Nurse Filed: 01/08/23 1513 Note Text: Patient provided with PO refreshments, tolerated well [facility] Ed Note [facility] Ed Note ED Note: Last filed note HNO ID: [id number] Author: Jennie Rebolledo RN Service: Emergency Medicine Author Type: Registered Nurse Filed: 01/08/23 1446 Note Text: Pt to CT with x2 RN and x2 police officers [facility] Ed Note ED Note: Last filed note HNO ID: [id number] Author: Lamin Bach RN Service: Length of Stay Author Type: Registered Nurse Filed: 01/08/23 1234 Note Text: Report given to Jennie TAY. To assume care. [facility] Ed Note [facility] Ed Note ED Note: Last filed note HNO ID: [id number] Author: Teresa Kwok RN Service: ? Author Type: Registered Nurse Filed: 01/08/23 1221 Note Text: Bed: O74 Expected date: Expected time: Means of arrival: Comments: 60 [facility] Ed Note ED Note: Last filed note HNO ID: [id number] Author: Jose Roberto Lincoln RN Service: Emergency Medicine Author Type: Registered Nurse Filed: 01/08/23 1203 Note Text: Pt screaming and yelling at staff throwing pulse ox at staff Normal [facility] Ed Note Normal [facility] Ed Note Normal [facility] Ed Note ED Note: Last filed note HNO ID: [id number] Author: Zoe Sylvester RN Service: ? Author Type: Registered Nurse Filed: 01/08/23 0600 Note Text: Pt up and ambulated with even steady gait. Dr Pritchard updated. Normal [facility] Ed Note ED Note: Last filed note HNO ID: [id number] Author: Marlena Stevenson RN Service: Emergency Medicine Author Type: Registered Nurse Filed: 01/08/23 0532 Note Text: Report received from JASVIR Camilo and care assumed. Normal [facility] Ed Note Normal [facility] Ed Note ED Note: Last filed note HNO ID: [id number] Author: Edith So Service: ? Author Type: Patient Gimp Tacker Filed: 01/08/23 0152 Note Text: Pt ambulatory to restroom and asking for something to eat and drink Normal [facility] Ed Note ED Note: Last filed note HNO ID: [id number] Author: Edith So Service: ? Author Type: Patient Gimp Tacker Filed: 01/08/23 0136 Note Text: MD at bedside [facility] ED PROVIDER NOTESon 01-09-20 [facility] Ed Provider Note Normal [facility] Ed Provider Note Normal [facility] Ed Provider Note Normal [facility] ED TRIAGEon 01-08-2023 [facility] Ed Triage Note Normal [facility] ETHANOLon 01-08-2023 COMMENT For Medical Purposes only. Abnormal [facility] Comment on above: Performed By: #### L [id number] ####[place] [phone] ETHANOL, SERUM/PLASMA 224 mg/dL High <10 [place] Comment on above: Performed By: #### L AB175 ####[place] [phone] Ethanol [Mass/Vol] 224 mg/dL High NINF - 10 mg/dL [facility] Interpretation and review of laboratory results Abnormal [facility] For Medical Purposes only. [facility] No Panel Informationon 01-08 Radiology Study observation (narrative) [facility] PROGRESS NOTESon 01-08-2023 Cosmetologist Authentication Interface Message Text SHARED SERVICES MANAGER accessed pt chart to assist [employer] worker to print pt Face sheet as they were unable to access it from their account for some reason. Normal [facility] BASIC METABOLIC PANELon 11-3 Anion gap [Moles/Vol] 15 mmol/L Normal 5-15 [place] Comment on above: Performed By: #### L [id number] ####[place] [phone] Calcium [Mass/Vol] 8.9 mg/dL Normal 8.5-10.5 [facility] Comment on above: Performed By: #### L [id number] ####[place] [phone] Chloride [Moles/Vol] 104 mmol/L Normal 96-110 [facility] Comment on above: Performed By: #### L [id number] ####[place] [phone] CO2 [Moles/Vol] 21 mmol/L Normal 19-32 [facility] Comment on above: Performed By: #### L [id number] ####[place] [phone] Creatinine [Mass/Vol] 0.9 mg/dL Normal 0.5-1.4 [place] Comment on above: Performed By: #### L [id number] ####[place] [phone] ESTIMATED GFR 112 mL/min/1.73m*2 Normal >=60 [place] Comment on above: Performed By: #### L [id number] ####[place] [phone] Glucose [Mass/Vol] 106 mg/dL High 70-99 [facility] Comment on above: Performed By: #### L [id number] ####[place] [phone] Potassium [Moles/Vol] 3.7 mmol/L Normal 3.4-5.3 [place] Comment on above: Result Comment: Hemo lysis present. Result may be elevated. Performed By: #### L [id number] ####[place] [phone] Sodium [Moles/Vol] 140 mmol/L Normal 135-148 [facility] Comment on above: Performed By: #### L [id number] ####[place] [phone] Urea nitrogen [Mass/Vol] 17 mg/dL Normal 3-29 [facility] Comment on above: Performed By: #### L [id number] ####[place] [phone] Urea nitrogen/Creatinine [Mass ratio] 19 mg/mg Normal 7-25 [facility] Comment on above: Performed By: #### L [id number] ####[place] [phone] Anion gap [Moles/Vol] 15 mmol/L 5 - 15 [facility] Calcium [Mass/Vol] 8.9 mg/dL 8.5 - 10. 5 mg/dL [facility] Chloride [Moles/Vol] 104 mmol/L [facility] CO2 [Moles/Vol] 21 mmol/L [facility] Creatinine [Mass/Vol] 0.9 mg/dL 0.5 - 1.4 mg/dL [facility] GFR/1.73 sq M.predicted MDRD (S/P/Bld) [Vol rate/Area] 112 mL/min/{1.73_m2} - PINF [facility] Glucose [Mass/Vol] 106 mg/dL High 70 - 99 mg/dL [facility] Interpretation and review of laboratory results Abnormal [facility] Potassium [Moles/Vol] 3.7 mmol/L [facility] Comment on above: Hemolysis present. R esult may be elevated. Sodium [Moles/Vol] 140 mmol/L [facility] Urea nitrogen [Mass/Vol] 17 mg/dL 3 - 29 mg/dL [facility] Urea nitrogen/Creatinine [Mass ratio] 19 mg/mg 7 - 25 [facility] BEHAVIORAL ASSESSMENTon 12-11 Cosmetologist Authentication Interface Message Text Normal [facility] COMPLETE BLOOD COUNT WITH DI FFERENTIALon 01-07-2023 BASOPHILS ABSOLUTE COUNT (10*3/UL) BY AUTOMATED COUNT 0.0 K/uL Normal 0.0-0.3 [facility] Comment on above: Performed By: #### L [id number] ####[place] [phone] BASOPHILS RELATIVE PERCENT BY AUTOMATED COUNT 0.4 % Normal 0.0-2.0 [facility] Comment on above: Performed By: #### L [id number] ####[place] [phone] Eosinophils (Bld) [#/Vol] 0.2 10*3/uL Normal 0.0-0.5 [facility] Comment on above: Performed By: #### L [id number] ####[place] [phone] EOSINOPHILS RELATIVE PERCENT BY AUTOMATED COUNT 2.8 % Normal 0.0-5.0 [facility] Comment on above: Performed By: #### L [id number] ####[place] [phone] Erythrocyte distribution width (RBC) [Ratio] 12.9 % Normal <=15.0 [facility] Comment on above: Performed By: #### L [id number] ####[place] [phone] Hematocrit (Bld) [Volume fraction] 45.7 % Normal 37.5-51.0 [facility] Comment on above: Performed By: #### L [id number] ####[place] [phone] Hemoglobin (Bld) [Mass/Vol] 15.8 g/dL Normal 13.0-17.7 [facility] Comment on above: Performed By: #### L [id number] ####[place] [phone] Immature granulocytes (Bld) [#/Vol] 0.0 10*3/uL Normal 0.0-0.1 [facility] Comment on above: Performed By: #### L [id number] ####[place] [phone] Immature granulocytes/100 WBC (Bld) 0.5 % Normal <1.0 [facility] Comment on above: Performed By: #### L [id number] ####[place] [phone] LYMPHOCYTES ABSOLUTE COUNT (10*3/UL) BY AUTOMATED COUNT 3.2 K/uL Normal 0.9-4.1 [facility] Comment on above: Performed By: #### L [id number] ####[place] [phone] LYMPHOCYTES RELATIVE PERCENT BY AUTOMATED COUNT 39.1 % Normal 14.0-51.0 [facility] Comment on above: Performed By: #### L [id number] ####[place] [phone] MCH (RBC) [Entitic mass] 28.9 pg Normal 26.0-34.0 [facility] Comment on above: Performed By: #### L [id number] ####[place] [phone] MCHC (RBC) [Mass/Vol] 34.6 g/dL Normal 30.7-35.5 [place] Comment on above: Performed By: #### L [id number] ####[place] [phone] MCV (RBC) [Entitic vol] 83.5 fL Normal 80.0-100.0 [facility] Comment on above: Performed By: #### L [id number] ####[place] [phone] MEAN PLATELET VOLUME (FL) BY AUTOMATED COUNT 8.0 fL Normal 7.2-11.7 [facility] Comment on above: Performed By: #### L [id number] ####[place] [phone] MONOCYTES ABSOLUTE COUNT (10*3/UL) BY AUTOMATED COUNT 0.4 K/uL Normal 0.2-1.0 [facility] Comment on above: Performed By: #### L [id number] ####[place] [phone] MONOCYTES RELATIVE PERCENT BY AUTOMATED COUNT 4.2 % Normal 4.0-12.0 [facility] Comment on above: Performed By: #### L [id number] ####[place] [phone] NEUTROPHILS ABSOLUTE COUNT (10*3/UL) BY AUTOMATED COUNT 4.4 K/uL Normal 1.8-7.5 [facility] Comment on above: Performed By: #### L [id number] ####[place] [phone] NEUTROPHILS RELATIVE PERCENT BY AUTOMATED COUNT 53.0 % Normal 42.0-80.0 [facility] Comment on above: Performed By: #### L [id number] ####[place] [phone] NRBC (PER 100 WBCS) BY AUTOMATED COUNT 0 /100 WBCs Normal <=0 [facility] Comment on above: Performed By: #### L [id number] ####[place] [phone] PLATELETS (10*3/UL) BY AUTOMATED COUNT 420 K/uL High 140-400 [facility] Comment on above: Performed By: #### L [id number] ####[place] [phone] RBC (Bld) [#/Vol] 5.47 10*6/uL Normal 4.14-5.80 [facility] Comment on above: Performed By: #### L [id number] ####[place] [phone] TO SCAN RESULT USE SCAN ICON Normal [facility] Comment on above: Performed By: #### L [id number] ####[place] [phone] WBC (Bld) [#/Vol] 8.3 10*3/uL Normal 3.5-10.9 [facility] Comment on above: Performed By: #### L [id number] ####[place] [phone] BASOPHILS ABSOLUTE COUNT (10*3/UL) BY AUTOMATED COUNT 0.0 K/uL Normal 0.0-0.3 [facility] Comment on above: Performed By: #### L [id number] ####[place] [phone] BASOPHILS RELATIVE PERCENT BY AUTOMATED COUNT 0.5 % Normal 0.0-2.0 [facility] Comment on above: Performed By: #### L [id number] ####[place] [phone] Eosinophils (Bld) [#/Vol] 0.3 10*3/uL Normal 0.0-0.5 [facility] Comment on above: Performed By: #### L [id number] ####[place] [phone] EOSINOPHILS RELATIVE PERCENT BY AUTOMATED COUNT 5.1 % High 0.0-5.0 [facility] Comment on above: Performed By: #### L [id number] ####[place] [phone] Erythrocyte distribution width (RBC) [Ratio] 13.1 % Normal <=15.0 [facility] Comment on above: Performed By: #### L [id number] ####[place] [phone] Hematocrit (Bld) [Volume fraction] 40.9 % Normal 37.5-51.0 [facility] Comment on above: Performed By: #### L [id number] ####[place] [phone] Hemoglobin (Bld) [Mass/Vol] 14.1 g/dL Normal 13.0-17.7 [facility] Comment on above: Performed By: #### L [id number] ####[place] [phone] Immature granulocytes (Bld) [#/Vol] 0.0 10*3/uL Normal 0.0-0.1 [facility] Comment on above: Performed By: #### L [id number] ####[place] [phone] Immature granulocytes/100 WBC (Bld) 0.5 % Normal <1.0 [facility] Comment on above: Performed By: #### L [id number] ####[place] [phone] LYMPHOCYTES ABSOLUTE COUNT (10*3/UL) BY AUTOMATED COUNT 2.4 K/uL Normal 0.9-4.1 [facility] Comment on above: Performed By: #### L [id number] ####[place] [phone] LYMPHOCYTES RELATIVE PERCENT BY AUTOMATED COUNT 41.9 % Normal 14.0-51.0 [facility] Comment on above: Performed By: #### L [id number] ####[place] [phone] MCH (RBC) [Entitic mass] 28.9 pg Normal 26.0-34.0 [facility] Comment on above: Performed By: #### L [id number] ####[place] [phone] MCHC (RBC) [Mass/Vol] 34.5 g/dL Normal 30.7-35.5 [place] Comment on above: Performed By: #### L [id number] ####[place] [phone] MCV (RBC) [Entitic vol] 83.8 fL Normal 80.0-100.0 [facility] Comment on above: Performed By: #### L [id number] ####[place] [phone] MEAN PLATELET VOLUME (FL) BY AUTOMATED COUNT 8.2 fL Normal 7.2-11.7 [facility] Comment on above: Performed By: #### L [id number] ####[place] [phone] MONOCYTES ABSOLUTE COUNT (10*3/UL) BY AUTOMATED COUNT 0.6 K/uL Normal 0.2-1.0 [facility] Comment on above: Performed By: #### L [id number] ####[place] [phone] MONOCYTES RELATIVE PERCENT BY AUTOMATED COUNT 9.9 % Normal 4.0-12.0 [facility] Comment on above: Performed By: #### L [id number] ####[place] [phone] NEUTROPHILS ABSOLUTE COUNT (10*3/UL) BY AUTOMATED COUNT 2.4 K/uL Normal 1.8-7.5 [facility] Comment on above: Performed By: #### L [id number] ####[place] [phone] NEUTROPHILS RELATIVE PERCENT BY AUTOMATED COUNT 42.1 % Normal 42.0-80.0 [facility] Comment on above: Performed By: #### L [id number] ####[place] [phone] NRBC (PER 100 WBCS) BY AUTOMATED COUNT 0 /100 WBCs Normal <=0 [facility] Comment on above: Performed By: #### L [id number] ####[place] [phone] PLATELETS (10*3/UL) BY AUTOMATED COUNT 313 K/uL Normal 140-400 [facility] Comment on above: Performed By: #### L [id number] ####[place] [phone] RBC (Bld) [#/Vol] 4.88 10*6/uL Normal 4.14-5.80 [facility] Comment on above: Performed By: #### L [id number] ####[place] [phone] TO SCAN RESULT USE SCAN ICON Normal [facility] Comment on above: Performed By: #### L [id number] ####[place] [phone] WBC (Bld) [#/Vol] 5.7 10*3/uL Normal 3.5-10.9 [facility] Comment on above: Performed By: #### L [id number] ####[place] [phone] Basophils (Bld) [#/Vol] 0.0 10*3/uL 0.0 - 0.3 K/uL [facility] Basophils/100 WBC (Bld) 0.5 % 0.0 - 2.0 % [facility] Eosinophils (Bld) [#/Vol] 0.3 10*3/uL 0.0 - 0.5 K/uL [facility] Eosinophils/100 WBC (Bld) 5.1 % High 0.0 - 5.0 % [facility] Erythrocyte distribution width (RBC) [Ratio] 13.1 % NINF - 15.0 % [facility] Hematocrit (Bld) [Volume fraction] 40.9 % 37.5 - 51.0 % [facility] Hemoglobin (Bld) [Mass/Vol] 14.1 g/dL 13.0 - 17.7 g/dL [facility] Immature granulocytes (Bld) [#/Vol] 0.0 10*3/uL 0.0 - 0.1 K/uL [facility] Immature granulocytes/100 WBC (Bld) 0.5 % NINF - 1.0 % [facility] Interpretation and review of laboratory results Abnormal [facility] Lymphocytes (Bld) [#/Vol] 2.4 10*3/uL 0.9 - 4.1 K/uL [facility] Lymphocytes/100 WBC (Bld) 41.9 % 14.0 - 51.0 % [facility] MCH (RBC) [Entitic mass] 28.9 pg 26.0 - 34.0 pg [facility] MCHC (RBC) [Mass/Vol] 34.5 g/dL 30.7 - 35.5 g/dL [facility] MCV (RBC) [Entitic vol] 83.8 fL 80.0 - 100.0 fL [facility] Monocytes (Bld) [#/Vol] 0.6 10*3/uL 0.2 - 1.0 K/uL [facility] Monocytes/100 WBC (Bld) 9.9 % 4.0 - 12.0 % [facility] Neutrophils (Bld) [#/Vol] 2.4 10*3/uL 1.8 - 7.5 K/uL [facility] Neutrophils/100 WBC (Bld) 42.1 % 42.0 - 80.0 % [facility] Nucleated cells (Bld) [#/Vol] 0 NINF [facility] Platelet mean volume (Bld) [Entitic vol] 8.2 fL 7.2 - 11.7 fL [facility] Platelets (Bld) [#/Vol] 313 10*3/uL 140 - 400 K/uL [facility] RBC (Bld) [#/Vol] 4.88 10*6/uL [facility] Scan Result [facility] WBC corrected for nucl RBC Auto (Bld) [#/Vol] 5.7 K/uL 3.5 - 10.9 K/uL [facility] COMPLETE BLOOD COUNT WITH DI FFERENTIALOrdered By: Cassia Pappas on 01-07-2023 Basophils (Bld) [#/Vol] 0.0 10*3/uL 0.0 - 0.3 K/uL [facility] Basophils/100 WBC (Bld) 0.4 % 0.0 - 2.0 % [facility] Eosinophils (Bld) [#/Vol] 0.2 10*3/uL 0.0 - 0.5 K/uL [facility] Eosinophils/100 WBC (Bld) 2.8 % 0.0 - 5.0 % [facility] Erythrocyte distribution width (RBC) [Ratio] 12.9 % NINF - 15.0 % [facility] Hematocrit (Bld) [Volume fraction] 45.7 % 37.5 - 51.0 % [facility] Hemoglobin (Bld) [Mass/Vol] 15.8 g/dL 13.0 - 17.7 g/dL [facility] Immature granulocytes (Bld) [#/Vol] 0.0 10*3/uL 0.0 - 0.1 K/uL [facility] Immature granulocytes/100 WBC (Bld) 0.5 % NINF - 1.0 % [facility] Interpretation and review of laboratory results Abnormal [facility] Lymphocytes (Bld) [#/Vol] 3.2 10*3/uL 0.9 - 4.1 K/uL [facility] Lymphocytes/100 WBC (Bld) 39.1 % 14.0 - 51.0 % [facility] MCH (RBC) [Entitic mass] 28.9 pg 26.0 - 34.0 pg [facility] MCHC (RBC) [Mass/Vol] 34.6 g/dL 30.7 - 35.5 g/dL [facility] MCV (RBC) [Entitic vol] 83.5 fL 80.0 - 100.0 fL [facility] Monocytes (Bld) [#/Vol] 0.4 10*3/uL 0.2 - 1.0 K/uL [facility] Monocytes/100 WBC (Bld) 4.2 % 4.0 - 12.0 % [facility] Neutrophils (Bld) [#/Vol] 4.4 10*3/uL 1.8 - 7.5 K/uL [facility] Neutrophils/100 WBC (Bld) 53.0 % 42.0 - 80.0 % [facility] Nucleated cells (Bld) [#/Vol] 0 NINF [facility] Platelet mean volume (Bld) [Entitic vol] 8.0 fL 7.2 - 11.7 fL [facility] Platelets (Bld) [#/Vol] 420 10*3/uL High 140 - 400 K/uL [facility] RBC (Bld) [#/Vol] 5.47 10*6/uL [facility] Scan Result [facility] WBC corrected for nucl RBC Auto (Bld) [#/Vol] 8.3 K/uL 3.5 - 10.9 K/uL [facility] ED NOTESon 01-07-2023 [facility] Ed Note Normal [facility] Ed Note ED Note: Last filed note HNO ID: [id number] Author: Isabelle Thompson RN Service: ? Author Type: Registered Nurse Filed: 01/07/231926 Note Text: Bed: GRN14 Expected date: 01/07/23 Expected time: 7:21 PM Means of arrival: Comments: medic Normal [facility] ED PROVIDER NOTESon 01-08-20 [facility] Ed Provider Note Normal [facility] Ed Provider Note Normal [facility] ED TRIAGEon 01-07-2023 [facility] Ed Triage Note Normal [facility] ETHANOLon 01-07-2023 COMMENT For Medical Purposes only. Abnormal [facility] Comment on above: Performed By: #### L [id number] ####[place] [phone] ETHANOL, SERUM/PLASMA 190 mg/dL High <10 [place] Comment on above: Performed By: #### L [id number] ####[place] [phone] Ethanol [Mass/Vol] 190 mg/dL High NINF - 10 mg/dL [facility] Interpretation and review of laboratory results Abnormal [facility] For Medical Purposes only. [facility] MEDICAL STAFFon 01-07-2023 Cosmetologist Authentication Interface Message Text Normal [facility] Cosmetologist Authentication Interface Message Text Normal [facility] NURSING NOTEon 01-07-2023 Cosmetologist Authentication Interface Message Text Went over AVS with patient at bedside and discussed next steps thoroughly. All questions and concerns were addressed at this time. Normal [facility] PROGRESS NOTESon 01-07-2023 Cosmetologist Authentication Interface Message Text Normal [facility] RENAL FUNCTION PANELon 01-07 Albumin [Mass/Vol] 3.6 g/dL Normal 3.5-5.2 [facility] Comment on above: Performed By: #### L [id number] ####[place] [phone] Anion gap [Moles/Vol] 9 mmol/L Normal 5-15 [facility] Comment on above: Performed By: #### L [id number] ####[place] [phone] Calcium [Mass/Vol] 8.9 mg/dL Normal 8.5-10.5 [facility] Comment on above: Performed By: #### L [id number] ####[place] [phone] Chloride [Moles/Vol] 105 mmol/L Normal 96-110 [facility] Comment on above: Performed By: #### L [id number] ####[place] [phone] CO2 [Moles/Vol] 25 mmol/L Normal 19-32 [facility] Comment on above: Performed By: #### L [id number] ####[place] [phone] Creatinine [Mass/Vol] 1.2 mg/dL Normal 0.5-1.4 [facility] Comment on above: Performed By: #### L [id number] ####[place] [phone] ESTIMATED GFR 79 mL/min/1.73m*2 Normal >=60 [facility] Comment on above: Performed By: #### L [id number] ####[place] [phone] Glucose [Mass/Vol] 107 mg/dL High 70-99 [facility] Comment on above: Performed By: #### L [id number] ####[place] [phone] Phosphate [Mass/Vol] 4.5 mg/dL Normal 2.5-4.5 [facility] Comment on above: Performed By: #### L [id number] ####[place] [phone] Potassium [Moles/Vol] 4.6 mmol/L Normal 3.4-5.3 [facility] Comment on above: Performed By: #### L [id number] ####[place] [phone] Sodium [Moles/Vol] 139 mmol/L Normal 135-148 [facility] Comment on above: Performed By: #### L AB351 ####[place] [phone] Urea nitrogen [Mass/Vol] 19 mg/dL Normal 3-29 [facility] Comment on above: Performed By: #### L [id number] ####[place] [phone] Urea nitrogen/Creatinine [Mass ratio] 16 mg/mg Normal 7-25 [facility] Comment on above: Performed By: #### L AB351 ####[place] [phone] Albumin [Mass/Vol] 3.6 g/dL 3.5 - 5.2 g/dL [facility] Anion gap [Moles/Vol] 9 mmol/L 5 - [address] [facility] Calcium [Mass/Vol] 8.9 mg/dL 8.5 - 10. 5 mg/dL [facility] Chloride [Moles/Vol] 105 mmol/L [facility] CO2 [Moles/Vol] 25 mmol/L [facility] Creatinine [Mass/Vol] 1.2 mg/dL 0.5 - 1.4 mg/dL [facility] GFR/1.73 sq M.predicted MDRD (S/P/Bld) [Vol rate/Area] 79 mL/min/{1.73_m2} - PINF [facility] Glucose [Mass/Vol] 107 mg/dL High 70 - 99 mg/dL [facility] Interpretation and review of laboratory results Abnormal [facility] Phosphate [Mass/Vol] 4.5 mg/dL 2.5 - 4 .5 mg/dL [facility] Potassium [Moles/Vol] 4.6 mmol/L Pre [facility] Sodium [Moles/Vol] 139 mmol/L [facility] Urea nitrogen [Mass/Vol] 19 mg/dL 3 - 29 mg/dL [facility] Urea nitrogen/Creatinine [Mass ratio] 16 mg/mg 7 - 25 [facility] MEDICAL STAFFon 01-06-2023 Cosmetologist Authentication Interface Message Text Normal [facility] Cosmetologist Authentication Interface Message Text Normal [facility] PROCALCITONINon 01-06-2023 COMMENT Normal [facility] Comment on above: Result Comment: Leve ls <0.25 ng/mL represent a lower risk of bacterial pneumonia or <0.50 ng/mL represent a lower risk of severe sepsis and/ or septic shock.Levels <0.50 ng/mL do not exclude infection as early stage (<6 hrs) localized infections or systemic infections can be associated with low concentrations.ICU patients: - procalcitonin levels >2.00 ng/mL at time of ICU admission represent an elevated risk of progression to severe sepsis and/ or septic shock. - Levels 0.50 - 2.00 ng/mL (0.25-2.00 ng/mL for pneumonia) should be interpreted in the clinical context of the patient. Performed By: #### L [id number] ####[place] [phone] PROCALCITONIN 0.04 ng/mL Normal 0.00-0.09 [facility] Comment on above: Performed By: #### L [id number] ####[place] [phone] Interpretation and review of laboratory results Normal [facility] Procalcitonin [Mass/Vol] 0.04 ng/mL 0.00 - 0.09 ng/mL [facility] Note: Procalcitonin levels should always be interpreted in the context of the patient. A variety of non-infectious conditions including renal insufficiency, trauma, bear, surgery and cardiogenic shock can cause PCT elevations without bacterial infection. Interpret the results in these patients with caution. Levels <0.25 ng/mL represent a lower risk of bacterial pneumonia or <0.50 ng/mL represent a lower risk of severe sepsis and/ or septic shock. Levels <0.50 ng/mL do not exclude infection as early stage (<6 hrs) localized infections or systemic infections can be associated with low concentrations. ICU patients: - procalcitonin levels >2.00 ng/mL at time of ICU admission represent an elevated risk of progression to severe sepsis and/ or septic shock. - Levels 0.50 - 2.00 ng/mL (0.25-2.00 ng/mL for pneumonia) should be interpreted in the clinical context of the patient. [facility] PROGRESS NOTESon 01-06-2023 Cosmetologist Authentication Interface Message Text Normal [facility] Cosmetologist Authentication Interface Message Text Normal [facility] BASIC METABOLIC PANELon 12-10 Anion gap [Moles/Vol] 12 mmol/L Normal 5-15 [place] Comment on above: Performed By: #### L [id number] ####[place] [phone] Performed By: #### L [id number] ####[place] [phone] Calcium [Mass/Vol] 9.1 mg/dL Normal 8.5-10.5 [facility] Comment on above: Performed By: #### L [id number] ####[place] [phone] Performed By: #### L [id number] ####[place] [phone] Chloride [Moles/Vol] 104 mmol/L Normal 96-110 [facility] Comment on above: Performed By: #### L [id number] ####[place] [phone] Performed By: #### L [id number] ####[place] [phone] CO2 [Moles/Vol] 26 mmol/L Normal 19-32 [facility] Comment on above: Performed By: #### L [id number] ####[place] [phone] Performed By: #### L [id number] ####[place] [phone] Creatinine [Mass/Vol] 1.0 mg/dL Normal 0.5-1.4 [place] Comment on above: Performed By: #### L [id number] ####[place] [phone] Performed By: #### L [id number] ####[place] [phone] ESTIMATED GFR 99 mL/min/1.73m*2 Normal >=60 [facility] Comment on above: Performed By: #### L [id number] ####[place] [phone] Performed By: #### L [id number] ####[place] [phone] Glucose [Mass/Vol] 101 mg/dL High 70-99 [facility] Comment on above: Performed By: #### L [id number] ####[place] [phone] Performed By: #### L [id number] ####[place] [phone] Potassium [Moles/Vol] 4.1 mmol/L Normal 3.4-5.3 [place] Comment on above: Performed By: #### L [id number] ####[place] [phone] Performed By: #### L [id number] ####[place] [phone] Sodium [Moles/Vol] 142 mmol/L Normal 135-148 [facility] Comment on above: Performed By: #### L [id number] ####[place] [phone] Performed By: #### L [id number] ####[place] [phone] Urea nitrogen [Mass/Vol] 15 mg/dL Normal 3-29 [facility] Comment on above: Performed By: #### L [id number] ####[place] [phone] Performed By: #### L [id number] ####[place] [phone] Urea nitrogen/Creatinine [Mass ratio] 15 mg/mg Normal 7- [facility] Comment on above: Performed By: #### L [id number] ####[place] [phone] Performed By: #### L [id number] ####[place] [phone] Anion gap [Moles/Vol] 12 mmol/L 5 - 15 [facility] Calcium [Mass/Vol] 9.1 mg/dL 8.5 - 10. 5 mg/dL [facility] Chloride [Moles/Vol] 104 mmol/L [facility] CO2 [Moles/Vol] 26 mmol/L [facility] Creatinine [Mass/Vol] 1.0 mg/dL 0.5 - 1.4 mg/dL [facility] GFR/1.73 sq M.predicted MDRD (S/P/Bld) [Vol rate/Area] 99 mL/min/{1.73_m2} - PINF [facility] Glucose [Mass/Vol] 101 mg/dL High 70 - 99 mg/dL [facility] Potassium [Moles/Vol] 4.1 mmol/L [facility] Sodium [Moles/Vol] 142 mmol/L [facility] Urea nitrogen [Mass/Vol] 15 mg/dL 3 - 29 mg/dL [facility] Urea nitrogen/Creatinine [Mass ratio] 15 mg/mg 7 - 25 [facility] CHEMICAL URINALYSISon 2022 BILIRUBIN URINE Negative Normal Negative [facility] Comment on above: Performed By: #### L [id number] ####[place] [phone] BLOOD IN URINE BY AUTOMATED TEST STRIP Negative Normal Negative [facility] Comment on above: Performed By: #### L AB797 ####[place] [phone] Clarity (U) Clear Normal Clear [facility] Comment on above: Performed By: #### L AB797 ####[place] [phone] Color (U) Yellow Normal Yellow, Colorless [facility] Comment on above: Performed By: #### L AB797 ####[place] [phone] GLUCOSE IN URINE BY AUTOMATED TEST STRIP Negative Normal Negative [facility] Comment on above: Performed By: #### L AB797 ####[place] [phone] KETONE, URINE Negative Normal Negative [facility] Comment on above: Performed By: #### L AB797 ####[place] [phone] LEUKOCYTE ESTERASE, URINE BY AUTO TEST STRIP Negative Normal Negative [facility] Comment on above: Performed By: #### L AB797 ####[place] [phone] Nitrite Auto test strip Ql (U) Negative Normal Negative [facility] Comment on above: Performed By: #### L AB797 ####[place] [phone] PH OF URINE BY AUTOMATED TEST STRIP 5.5 pH Units Normal 5.0-8.0 [facility] Comment on above: Performed By: #### L AB797 ####[place] [phone] Protein (U) [Mass/Vol] 10 mg/dL Normal Negative, 10 [facility] Comment on above: Performed By: #### L AB797 ####[place] [phone] SPECIFIC GRAVITY, URINE > High 1.005-1.030 [facility] Comment on above: Result Comment: Urin e specific gravity may be affected by X- ray dye, high glucose, high protein, and some chemotherapeutic drugs. Clinical correlation is recommended. Performed By: #### L AB797 ####[place] [phone] UROBILINOGEN, URINE <2 Normal <2 [facility] Comment on above: Performed By: #### L AB797 ####[place] [phone] Appearance (U) Clear Clear [facility] Bilirubin Ql (U) Negative Negative mg/dl [facility] Color (U) Yellow Yellow, Colorless [facility] Glucose Ql (U) Negative Negative mg/dl [facility] Hemoglobin Ql (U) Negative Negative [facility] Interpretation and review of laboratory results Abnormal [facility] Ketones Ql (U) Negative Negative mg/dl [facility] Leukocyte esterase Test strip Ql (U) Negative Negative [facility] Nitrite Ql (U) Negative Negative [facility] pH (U) 5.5 [pH] [facility] Protein Ql (U) 10 mg/dl Negative, 10 [facility] Specific gravity (U) [Rel density] High [facility] Comment on above: Urine specific gravi ty may be affected by X-ray dye, high glucose, high protein, and some chemotherapeutic drugs. Clinical correlation is recommended. Urobilinogen Ql (U) <2 NINF - 2 mg/dl [facility] COMPLETE BLOOD COUNT WITH DI FFERENTIALon 01-05-2023 BASOPHILS ABSOLUTE COUNT (10*3/UL) BY AUTOMATED COUNT 0.0 K/uL Normal 0.0-0.3 [facility] Comment on above: Performed By: #### L [id number] ####[place] [phone] BASOPHILS RELATIVE PERCENT BY AUTOMATED COUNT 0.3 % Normal 0.0-2.0 [facility] Comment on above: Performed By: #### L [id number] ####[place] [phone] Eosinophils (Bld) [#/Vol] 0.1 10*3/uL Normal 0.0-0.5 [facility] Comment on above: Performed By: #### L [id number] ####[place] [phone] EOSINOPHILS RELATIVE PERCENT BY AUTOMATED COUNT 0.5 % Normal 0.0-5.0 [facility] Comment on above: Performed By: #### L [id number] ####[place] [phone] Erythrocyte distribution width (RBC) [Ratio] 13.0 % Normal <=15.0 [facility] Comment on above: Performed By: #### L [id number] ####[place] [phone] Hematocrit (Bld) [Volume fraction] 43.5 % Normal 37.5-51.0 [facility] Comment on above: Performed By: #### L [id number] ####[place] [phone] Hemoglobin (Bld) [Mass/Vol] 14.8 g/dL Normal 13.0-17.7 [facility] Comment on above: Performed By: #### L [id number] ####[place] [phone] Immature granulocytes (Bld) [#/Vol] 0.1 10*3/uL Normal 0.0-0.1 [facility] Comment on above: Performed By: #### L [id number] ####[place] [phone] Immature granulocytes/100 WBC (Bld) 0.8 % Normal <1.0 [facility] Comment on above: Performed By: #### L [id number] ####[place] [phone] LYMPHOCYTES ABSOLUTE COUNT (10*3/UL) BY AUTOMATED COUNT 3.1 K/uL Normal 0.9-4.1 [facility] Comment on above: Performed By: #### L [id number] ####[place] [phone] LYMPHOCYTES RELATIVE PERCENT BY AUTOMATED COUNT 24.0 % Normal 14.0-51.0 [facility] Comment on above: Performed By: #### L [id number] ####[place] [phone] MCH (RBC) [Entitic mass] 28.6 pg Normal 26.0-34.0 [facility] Comment on above: Performed By: #### L [id number] ####[place] [phone] MCHC (RBC) [Mass/Vol] 34.0 g/dL Normal 30.7-35.5 [place] Comment on above: Performed By: #### L [id number] ####[place] [phone] MCV (RBC) [Entitic vol] 84.1 fL Normal 80.0-100.0 [facility] Comment on above: Performed By: #### L [id number] ####[place] [phone] MEAN PLATELET VOLUME (FL) BY AUTOMATED COUNT 7.8 fL Normal 7.2-11.7 [facility] Comment on above: Performed By: #### L [id number] ####[place] [phone] MONOCYTES ABSOLUTE COUNT (10*3/UL) BY AUTOMATED COUNT 0.7 K/uL Normal 0.2-1.0 [facility] Comment on above: Performed By: #### L [id number] ####[place] [phone] MONOCYTES RELATIVE PERCENT BY AUTOMATED COUNT 5.4 % Normal 4.0-12.0 [facility] Comment on above: Performed By: #### L [id number] ####[place] [phone] NEUTROPHILS ABSOLUTE COUNT (10*3/UL) BY AUTOMATED COUNT 9.0 K/uL High 1.8-7.5 [facility] Comment on above: Performed By: #### L [id number] ####[place] [phone] NEUTROPHILS RELATIVE PERCENT BY AUTOMATED COUNT 69.0 % Normal 42.0-80.0 [facility] Comment on above: Performed By: #### L [id number] ####[place] [phone] NRBC (PER 100 WBCS) BY AUTOMATED COUNT 0 /100 WBCs Normal <=0 [facility] Comment on above: Performed By: #### L [id number] ####[place] [phone] PLATELETS (10*3/UL) BY AUTOMATED COUNT 543 K/uL High 140-400 [facility] Comment on above: Performed By: #### L [id number] ####[place] [phone] RBC (Bld) [#/Vol] 5.17 10*6/uL Normal 4.14-5.80 [facility] Comment on above: Performed By: #### L [id number] ####[place] [phone] TO SCAN RESULT USE SCAN ICON Normal [facility] Comment on above: Performed By: #### L [id number] ####[place] [phone] WBC (Bld) [#/Vol] 13.0 10*3/uL High 3.5-10.9 [facility] Comment on above: Performed By: #### L [id number] ####[place] [phone] Basophils (Bld) [#/Vol] 0.0 10*3/uL 0.0 - 0.3 K/uL [facility] Basophils/100 WBC (Bld) 0.3 % 0.0 - 2.0 % [facility] Eosinophils (Bld) [#/Vol] 0.1 10*3/uL 0.0 - 0.5 K/uL [facility] Eosinophils/100 WBC (Bld) 0.5 % 0.0 - 5.0 % [facility] Erythrocyte distribution width (RBC) [Ratio] 13.0 % NINF - 15.0 % [facility] Hematocrit (Bld) [Volume fraction] 43.5 % 37.5 - 51.0 % [facility] Hemoglobin (Bld) [Mass/Vol] 14.8 g/dL 13.0 - 17.7 g/dL [facility] Immature granulocytes (Bld) [#/Vol] 0.1 10*3/uL 0.0 - 0.1 K/uL [facility] Immature granulocytes/100 WBC (Bld) 0.8 % NINF - 1.0 % [facility] Interpretation and review of laboratory results Abnormal [facility] Lymphocytes (Bld) [#/Vol] 3.1 10*3/uL 0.9 - 4.1 K/uL [facility] Lymphocytes/100 WBC (Bld) 24.0 % 14.0 - 51.0 % [facility] MCH (RBC) [Entitic mass] 28.6 pg 26.0 - 34.0 pg [facility] MCHC (RBC) [Mass/Vol] 34.0 g/dL 30.7 - 35.5 g/dL [facility] MCV (RBC) [Entitic vol] 84.1 fL 80.0 - 100.0 fL [facility] Monocytes (Bld) [#/Vol] 0.7 10*3/uL 0.2 - 1.0 K/uL [facility] Monocytes/100 WBC (Bld) 5.4 % 4.0 - 12.0 % [facility] Neutrophils (Bld) [#/Vol] 9.0 10*3/uL High 1.8 - 7.5 K/uL [facility] Neutrophils/100 WBC (Bld) 69.0 % 42.0 - 80.0 % [facility] Nucleated cells (Bld) [#/Vol] 0 NINF [facility] Platelet mean volume (Bld) [Entitic vol] 7.8 fL 7.2 - 11.7 fL [facility] Platelets (Bld) [#/Vol] 543 10*3/uL High 140 - 400 K/uL [facility] RBC (Bld) [#/Vol] 5.17 10*6/uL [facility] Scan Result [facility] WBC corrected for nucl RBC Auto (Bld) [#/Vol] 13.0 K/uL High 3.5 - 10.9 K/uL [facility] COMPREHENSIVE METABOLIC PANE LOrdered By: Ashley Seay on 01-05-2023 Albumin [Mass/Vol] 4.1 g/dL 3.5 - 5.2 g/dL [facility] ALP [Catalytic activity/Vol] 106 U/L 23 - 144 U/L [facility] ALT [Catalytic activity/Vol] 80 U/L High 0 - 60 U/L [facility] Amino beta guanidinopropionate Ql (P) 1.3 0.8 - 2.6 [facility] Anion gap [Moles/Vol] 12 mmol/L 5 - 15 Pre [facility] AST [Catalytic activity/Vol] 30 U/L 0 - 46 U/L [facility] Bilirubin [Mass/Vol] mg/dL 0.0 - 1 .2 mg/dL [facility] Calcium [Mass/Vol] 9.1 mg/dL 8.5 - 10. 5 mg/dL [facility] Chloride [Moles/Vol] 104 mmol/L [facility] CO2 [Moles/Vol] 26 mmol/L [facility] Creatinine [Mass/Vol] 1.0 mg/dL 0.5 - 1.4 mg/dL [facility] GFR/1.73 sq M.predicted MDRD (S/P/Bld) [Vol rate/Area] 99 mL/min/{1.73_m2} - PINF [facility] Globulin (S) [Mass/Vol] 3.1 g/dL 1.9 - 3.6 g/dL [facility] Glucose [Mass/Vol] 101 mg/dL High 70 - 99 mg/dL [facility] Interpretation and review of laboratory results Abnormal [facility] Potassium [Moles/Vol] 4.1 mmol/L Pre [facility] Protein [Mass/Vol] 7.2 g/dL 6.0 - 8.3 g/dL [facility] Sodium [Moles/Vol] 142 mmol/L [facility] Urea nitrogen [Mass/Vol] 15 mg/dL 3 - 29 mg/dL [facility] Urea nitrogen/Creatinine [Mass ratio] 15 mg/mg 7 - 25 [facility] COMPREHENSIVE METABOLIC PANE Dilip 01-05-2023 Albumin/Globulin [Mass ratio] 1.3 {ratio} Normal 0.8-2.6 [facility] Comment on above: Performed By: #### L [id number] ####[place] [phone] Globulin (S) [Mass/Vol] 3.1 g/dL Normal 1.9-3.6 [facility] Comment on above: Performed By: #### L [id number] ####[place] [phone] CONSULTSon 01-05-2023 Cosmetologist Authentication Interface Message Text Normal [facility] DRUG SCREEN, URINEon 023 AMPHETAMINE, URINE Not detected Normal Not Detected [facility] Comment on above: Performed By: #### L [id number] ####[place] [phone] BARBITURATES, URINE Not detected Normal Not Detected [facility] Comment on above: Performed By: #### L [id number] ####[place] [phone] BENZODIAZEPINE, URINE Not detected Normal Not Detected [facility] Comment on above: Performed By: #### L [id number] ####[place] [phone] COCAINE, URINE Not detected Normal Not Detected [facility] Comment on above: Performed By: #### L [id number] ####[place] [phone] COMMENT The submitted urine specimen was screened for the presence of Normal [facility] Comment on above: Result Comment: the following compounds at the listed detection limits:Amphetamine, Methamphetamine 1000 ng/mlBarbituates 200 ng/mlBenzodiazepine 300 ng/mlCocaine Metabolite 300 ng/mlMarijuana (THC) 50 ng/mlOpiates 300 ng/ml Performed By: #### L [id number] ####[place] [phone] MARIJUANA (THC), URINE Not detected Normal Not Detected [facility] Comment on above: Performed By: #### L [id number] ####[place] [phone] OPIATES, URINE Not detected Normal Not Detected [facility] Comment on above: Performed By: #### L [id number] ####[place] [phone] Amphetamines (U) [Mass/Vol] Not detected Not Detected [facility] Barbiturates (U) [Mass/Vol] Not detected Not Detected [facility] Benzodiazepines (U) [Mass/Vol] Not detected Not Detected [facility] Benzoylecgonine (U) [Mass/Vol] Not detected Not Detected [facility] Interpretation and review of laboratory results Normal [facility] Opiates (U) [Mass/Vol] Not detected Not Detected [facility] Tetrahydrocannabinol (U) [Mass/Vol] Not detected Not Detected [facility] The submitted urine specimen was screened for the presence of the following compounds at the listed detection limits: Amphetamine, Methamphetamine 1000 ng/ml Barbituates 200 ng/ml Benzodiazepine 300 ng/ml Cocaine Metabolite 300 ng/ml Marijuana (THC) 50 ng/ml Opiates 300 ng/ml [facility] ED NOTESon 01-05-2023 [facility] Ed Note ED Note: Last filed note HNO ID: [id number] Author: Marlee Medel RN Service: Emergency Medicine Author Type: Registered Nurse Filed: 01/05/23 1122 Note Text: Handoff given to Norma TAY. Tech called for transport Normal [facility] Ed Note ED Note: Last filed note HNO ID: [id number] Author: Marlee Medel RN Service: Emergency Medicine Author Type: Registered Nurse Filed: 01/05/23945 Note Text: Provider at bedside Normal [facility] Ed Note ED Note: Last filed note HNO ID: [id number] Author: Marlee Medel RN Service: Emergency Medicine Author Type: Registered Nurse Filed: 01/05/23945 Note Text: Urine specimen collected and taken to lab Normal [facility] Ed Note ED Note: Last filed note HNO ID: [id number] Author: Jennie Alvarado RN Service: ? Author Type: Registered Nurse Filed: 01/05/23 0459 Note Text: Patient ambulated from GRN 17 to GRN 18 at this time. Gait steady. Normal [facility] ED PROVIDER NOTESon 01-06-20 [facility] Ed Provider Note Normal [facility] Ed Provider Note Normal [facility] ED TRIAGEon 01-05-2023 [facility] Ed Triage Note Normal [facility] ETHANOLon 01-05-2023 COMMENT For Medical Purposes only. Abnormal [facility] Comment on above: Performed By: #### L [id number] ####[place] [phone] ETHANOL, SERUM/PLASMA 147 mg/dL High <10 [facility] Comment on above: Performed By: #### L [id number] ####[place] [phone] Ethanol [Mass/Vol] 147 mg/dL High NINF - 10 mg/dL [facility] Interpretation and review of laboratory results Abnormal [facility] For Medical Purposes only. [facility] GGTon 01-05-2023 Gamma glutamyl transferase [Catalytic activity/Vol] 86 U/L 0 - 100 U/L [facility] Gamma glutamyl transferase [Catalytic activity/Vol] 86 U/L Normal 0-100 [facility] Comment on above: Performed By: #### L [id number] ####[place] [phone] H&Tate 01-05-2023 Cosmetologist Authentication Interface Message Text Normal [facility] HEPATIC FUNCTION PANELon Albumin [Mass/Vol] 4.1 g/dL Normal 3.5-5.2 [facility] Comment on above: Performed By: #### L [id number] ####[place] [phone] Performed By: #### L [id number] ####[place] [phone] ALP [Catalytic activity/Vol] 106 U/L Normal 23-144 [facility] Comment on above: Performed By: #### L [id number] ####[place] [phone] Performed By: #### L [id number] ####[place] [phone] ALT [Catalytic activity/Vol] 80 U/L High 0-60 [facility] Comment on above: Performed By: #### L [id number] ####[place] [phone] Performed By: #### L [id number] ####[place] [phone] AST [Catalytic activity/Vol] 30 U/L Normal 0-46 [facility] Comment on above: Performed By: #### L [id number] ####[place] [phone] Performed By: #### L [id number] ####[place] [phone] BILIRUBIN, DIRECT < Normal 0.0-0.4 [facility] Comment on above: Performed By: #### L [id number] ####[place] [phone] BILIRUBIN, INDIRECT Normal [facility] Comment on above: Result Comment: Unab le to calculate. Performed By: #### L AB238 ####[place] [phone] BILIRUBIN, TOTAL < Normal 0.0-1.2 [facility] Comment on above: Performed By: #### L AB238 ####[place] [phone] Performed By: #### L AB120 ####[place] [phone] Protein [Mass/Vol] 7.2 g/dL Normal 6.0-8.3 [facility] Comment on above: Performed By: #### L AB238 ####[place] [phone] Performed By: #### L [id number] ####[place] [phone] Albumin [Mass/Vol] 4.1 g/dL 3.5 - 5.2 g/dL [facility] ALP [Catalytic activity/Vol] 106 U/L 23 - 144 U/L [facility] ALT [Catalytic activity/Vol] 80 U/L High 0 - 60 U/L [facility] AST [Catalytic activity/Vol] 30 U/L 0 - 46 U/L [facility] Bilirubin [Mass/Vol] mg/dL 0.0 - 1 .2 mg/dL [facility] Bilirubin.direct [Mass/Vol] mg/dL 0.0 - 0.4 mg/dL [facility] Bilirubin.indirect [Mass/Vol] [facility] Comment on above: Unable to calculate. Protein [Mass/Vol] 7.2 g/dL 6.0 - 8.3 g/dL [facility] MAGNESIUM, SERUMon 3 Magnesium [Mass/Vol] 1.9 mg/dL 1.4 - 2 .5 mg/dL [facility] Magnesium [Mass/Vol] 1.9 mg/dL Normal 1.4-2.5 [facility] Comment on above: Performed By: #### L [id number] ####[place] [phone] No Panel Informationon 01-05 Interpretation and review of laboratory results Normal [facility] Interpretation and review of laboratory results Abnormal [facility] PHOSPHORUSon 01-05-2023 Interpretation and review of laboratory results Abnormal [facility] Phosphate [Mass/Vol] 4.7 mg/dL High 2.5 - 4 .5 mg/dL [facility] Phosphate [Mass/Vol] 4.7 mg/dL High 2.5-4.5 [facility] Comment on above: Performed By: #### L [id number] ####[place] [phone] PROGRESS NOTESon 01-05-2023 Cosmetologist Authentication Interface Message Text Normal [facility] THYROID STIMULATING HORMONEo n 01-05-2023 TSH Qn 0.879 m[IU]/L [facility] TSH 0.879 MCIU/ML Normal 0.400-4.500 [facility] Comment on above: Performed By: #### L [id number] ####[place] [phone] BASIC METABOLIC PANELon 12-10 Anion gap [Moles/Vol] 12 mmol/L Normal 5-15 [facility] Comment on above: Performed By: #### L [id number] ####[place] [phone] Calcium [Mass/Vol] 9.3 mg/dL Normal 8.5-10.5 [facility] Comment on above: Performed By: #### L [id number] ####[place] [phone] Chloride [Moles/Vol] 101 mmol/L Normal 96-110 [facility] Comment on above: Performed By: #### L [id number] ####[place] [phone] CO2 [Moles/Vol] 27 mmol/L Normal 19-32 [facility] Comment on above: Performed By: #### L [id number] ####[place] [phone] Creatinine [Mass/Vol] 1.1 mg/dL Normal 0.5-1.4 [facility] Comment on above: Performed By: #### L [id number] ####[place] [phone] ESTIMATED GFR 88 mL/min/1.73m*2 Normal >=60 [facility] Comment on above: Performed By: #### L [id number] ####[place] [phone] Glucose [Mass/Vol] 97 mg/dL Normal 70-99 [facility] Comment on above: Performed By: #### L [id number] ####[place] [place] [phone] Potassium [Moles/Vol] 4.4 mmol/L Normal 3.4-5.3 [place] Comment on above: Result Comment: Hemo lysis present. Result may be elevated. Performed By: #### L [id number] ####[place] [phone] Sodium [Moles/Vol] 140 mmol/L Normal 135-148 [facility] Comment on above: Performed By: #### L AB064 ####[place] [phone] Urea nitrogen [Mass/Vol] 15 mg/dL Normal 3-29 [facility] Comment on above: Performed By: #### L AB064 ####[place] [phone] Urea nitrogen/Creatinine [Mass ratio] 14 mg/mg Normal 7-25 [facility] Comment on above: Performed By: #### L AB064 ####[place] [phone] Anion gap [Moles/Vol] 12 mmol/L 5 - 15 Pre [facility] Calcium [Mass/Vol] 9.3 mg/dL 8.5 - 10. 5 mg/dL [facility] Chloride [Moles/Vol] 101 mmol/L [facility] CO2 [Moles/Vol] 27 mmol/L [facility] Creatinine [Mass/Vol] 1.1 mg/dL 0.5 - 1.4 mg/dL [facility] GFR/1.73 sq M.predicted MDRD (S/P/Bld) [Vol rate/Area] 88 mL/min/{1.73_m2} - PINF [facility] Glucose [Mass/Vol] 97 mg/dL 70 - 99 mg/dL [facility] Interpretation and review of laboratory results Normal [facility] Potassium [Moles/Vol] 4.4 mmol/L Pre [facility] Comment on above: Hemolysis present. R esult may be elevated. Sodium [Moles/Vol] 140 mmol/L [facility] Urea nitrogen [Mass/Vol] 15 mg/dL 3 - 29 mg/dL [facility] Urea nitrogen/Creatinine [Mass ratio] 14 mg/mg 7 - 25 [facility] CK (CPK), TOTALon 01-04-2023 CREATINE KINASE TOTAL 143 U/L Normal 0-250 [place] Comment on above: Result Comment: Hemo lysis present. Performed By: #### L AB109 ####[place] [phone] CK [Catalytic activity/Vol] 143 U/L 0 - 250 U/L [facility] Comment on above: Hemolysis present. Interpretation and review of laboratory results Normal [facility] COMPLETE BLOOD COUNT WITH DI FFERENTIALon 01-04-2023 BASOPHILS ABSOLUTE COUNT (10*3/UL) BY AUTOMATED COUNT 0.1 K/uL Normal 0.0-0.3 [facility] Comment on above: Performed By: #### L AB119 ####[place] [phone] BASOPHILS RELATIVE PERCENT BY AUTOMATED COUNT 0.5 % Normal 0.0-2.0 [facility] Comment on above: Performed By: #### L AB119 ####[place] [phone] Eosinophils (Bld) [#/Vol] 0.2 10*3/uL Normal 0.0-0.5 [facility] Comment on above: Performed By: #### L AB119 ####[place] [phone] EOSINOPHILS RELATIVE PERCENT BY AUTOMATED COUNT 2.5 % Normal 0.0-5.0 [facility] Comment on above: Performed By: #### L [id number] ####[place] [phone] Erythrocyte distribution width (RBC) [Ratio] 12.8 % Normal <=15.0 [facility] Comment on above: Performed By: #### L AB119 ####[place] [phone] Hematocrit (Bld) [Volume fraction] 46.5 % Normal 37.5-51.0 [facility] Comment on above: Performed By: #### L AB119 ####[place] [phone] Hemoglobin (Bld) [Mass/Vol] 15.9 g/dL Normal 13.0-17.7 [facility] Comment on above: Performed By: #### L AB119 ####[place] [phone] Immature granulocytes (Bld) [#/Vol] 0.2 10*3/uL High 0.0-0.1 [facility] Comment on above: Performed By: #### L AB119 ####[place] [phone] Immature granulocytes/100 WBC (Bld) 2.2 % High <1.0 [facility] Comment on above: Performed By: #### L AB119 ####[place] [phone] LYMPHOCYTES ABSOLUTE COUNT (10*3/UL) BY AUTOMATED COUNT 3.4 K/uL Normal 0.9-4.1 [facility] Comment on above: Performed By: #### L AB119 ####[place] [phone] LYMPHOCYTES RELATIVE PERCENT BY AUTOMATED COUNT 36.4 % Normal 14.0-51.0 [facility] Comment on above: Performed By: #### L AB119 ####[place] [phone] MCH (RBC) [Entitic mass] 29.0 pg Normal 26.0-34.0 [facility] Comment on above: Performed By: #### L AB119 ####[place] [phone] MCHC (RBC) [Mass/Vol] 34.2 g/dL Normal 30.7-35.5 [place] Comment on above: Performed By: #### L AB119 ####[place] [phone] MCV (RBC) [Entitic vol] 84.7 fL Normal 80.0-100.0 [facility] Comment on above: Performed By: #### L AB119 ####[place] [phone] MEAN PLATELET VOLUME (FL) BY AUTOMATED COUNT 7.8 fL Normal 7.2-11.7 [facility] Comment on above: Performed By: #### L AB119 ####[place] [phone] MONOCYTES ABSOLUTE COUNT (10*3/UL) BY AUTOMATED COUNT 0.7 K/uL Normal 0.2-1.0 [facility] Comment on above: Performed By: #### L AB119 ####[place] [phone] MONOCYTES RELATIVE PERCENT BY AUTOMATED COUNT 7.4 % Normal 4.0-12.0 [facility] Comment on above: Performed By: #### L AB119 ####[place] [phone] NEUTROPHILS ABSOLUTE COUNT (10*3/UL) BY AUTOMATED COUNT 4.7 K/uL Normal 1.8-7.5 [facility] Comment on above: Performed By: #### L AB119 ####[place] [phone] NEUTROPHILS RELATIVE PERCENT BY AUTOMATED COUNT 51.0 % Normal 42.0-80.0 [facility] Comment on above: Performed By: #### L AB119 ####[place] [phone] NRBC (PER 100 WBCS) BY AUTOMATED COUNT 0 /100 WBCs Normal <=0 [facility] Comment on above: Performed By: #### L AB119 ####[place] [phone] PLATELETS (10*3/UL) BY AUTOMATED COUNT 533 K/uL High 140-400 [facility] Comment on above: Performed By: #### L AB119 ####[place] [phone] RBC (Bld) [#/Vol] 5.49 10*6/uL Normal 4.14-5.80 [facility] Comment on above: Performed By: #### L AB119 ####[place] [phone] TO SCAN RESULT USE SCAN ICON Normal [facility] Comment on above: Performed By: #### L AB119 ####[place] [phone] WBC (Bld) [#/Vol] 9.2 10*3/uL Normal 3.5-10.9 [facility] Comment on above: Performed By: #### L AB119 ####[place] [phone] Basophils (Bld) [#/Vol] 0.1 10*3/uL 0.0 - 0.3 K/uL [facility] Basophils/100 WBC (Bld) 0.5 % 0.0 - 2.0 % [facility] Eosinophils (Bld) [#/Vol] 0.2 10*3/uL 0.0 - 0.5 K/uL [facility] Eosinophils/100 WBC (Bld) 2.5 % 0.0 - 5.0 % [facility] Erythrocyte distribution width (RBC) [Ratio] 12.8 % NINF - 15.0 % [facility] Hematocrit (Bld) [Volume fraction] 46.5 % 37.5 - 51.0 % [facility] Hemoglobin (Bld) [Mass/Vol] 15.9 g/dL 13.0 - 17.7 g/dL [facility] Immature granulocytes (Bld) [#/Vol] 0.2 10*3/uL High 0.0 - 0.1 K/uL [facility] Immature granulocytes/100 WBC (Bld) 2.2 % High NINF - 1.0 % [facility] Interpretation and review of laboratory results Abnormal [facility] Lymphocytes (Bld) [#/Vol] 3.4 10*3/uL 0.9 - 4.1 K/uL [facility] Lymphocytes/100 WBC (Bld) 36.4 % 14.0 - 51.0 % [facility] MCH (RBC) [Entitic mass] 29.0 pg 26.0 - 34.0 pg [facility] MCHC (RBC) [Mass/Vol] 34.2 g/dL 30.7 - 35.5 g/dL [facility] MCV (RBC) [Entitic vol] 84.7 fL 80.0 - 100.0 fL [facility] Monocytes (Bld) [#/Vol] 0.7 10*3/uL 0.2 - 1.0 K/uL [facility] Monocytes/100 WBC (Bld) 7.4 % 4.0 - 12.0 % [facility] Neutrophils (Bld) [#/Vol] 4.7 10*3/uL 1.8 - 7.5 K/uL [facility] Neutrophils/100 WBC (Bld) 51.0 % 42.0 - 80.0 % [facility] Nucleated cells (Bld) [#/Vol] 0 NINF [facility] Platelet mean volume (Bld) [Entitic vol] 7.8 fL 7.2 - 11.7 fL [facility] Platelets (Bld) [#/Vol] 533 10*3/uL High 140 - 400 K/uL [facility] RBC (Bld) [#/Vol] 5.49 10*6/uL [facility] Scan Result [facility] WBC corrected for nucl RBC Auto (Bld) [#/Vol] 9.2 K/uL 3.5 - 10.9 K/uL [facility] ED NOTESon 01-04-2023 [facility] Ed Note Normal [facility] Ed Note ED Note: Last filed note HNO ID: [id number] Author: Jamin Sierra Service: ? Author Type: Patient Gimp Tacker Filed: 01/03/23 2339 Note Text: 12 lead EKG completed results handed to Conor Young MD Normal [facility] Ed Note ED Note: Last filed note HNO ID: [id number] Author: Zoe Jacobson RN Service: ? Author Type: Registered Nurse Filed: 01/03/232312 Note Text: Bed: GRN Expected date: Expected time: Means of arrival: Comments: triage Normal [facility] Ed Note ED Note: Last filed note HNO ID: [id number] Author: Amanda Boggs RN Service: ? Author Type: Registered Nurse Filed: 01/03/232306 Note Text: Adds on chest, back, abdomen Normal [facility] ED PROVIDER NOTESon 01-05-20 [facility] Ed Provider Note Normal [facility] Ed Provider Note Normal [facility] ED TRIAGEon 01-04-2023 [facility] Ed Triage Note ED Triage Note: Last filed note HNO ID: [id number] Author: Amanda Boggs RN Service: ? Author Type: Registered Nurse Filed: 01/03/232300 Note Text: Arrived to ED c/o I need help ma'am Denies SI/HI Normal [facility] ETHANOLon 01-04-2023 COMMENT For Medical Purposes only. Abnormal [facility] Comment on above: Performed By: #### L AB175 ####[place] [phone] ETHANOL, SERUM/PLASMA 145 mg/dL High <10 [place] Comment on above: Performed By: #### L AB175 ####[place] [phone] Ethanol [Mass/Vol] 145 mg/dL High NINF - 10 mg/dL [facility] Interpretation and review of laboratory results Abnormal [facility] For Medical Purposes only. [facility] HEPATIC FUNCTION PANELon Albumin [Mass/Vol] 4.2 g/dL Normal 3.5-5.2 [facility] Comment on above: Performed By: #### L AB238 ####[place] [phone] ALP [Catalytic activity/Vol] 118 U/L Normal 23-144 [facility] Comment on above: Performed By: #### L AB238 ####[place] [phone] ALT [Catalytic activity/Vol] 98 U/L High 0-60 [facility] Comment on above: Performed By: #### L AB238 ####[place] [phone] AST [Catalytic activity/Vol] 32 U/L Normal 0-46 [facility] Comment on above: Performed By: #### L AB238 ####[place] [phone] BILIRUBIN, DIRECT < Normal 0.0-0.4 [facility] Comment on above: Result Comment: Hemo lysis present. Results may be affected. Performed By: #### L AB238 ####[place] [phone] BILIRUBIN, INDIRECT Normal [facility] Comment on above: Result Comment: Unab le to calculate. Performed By: #### L AB238 ####[place] [phone] BILIRUBIN, TOTAL < Normal 0.0-1.2 [facility] Comment on above: Performed By: #### L AB238 ####[place] [phone] Protein [Mass/Vol] 7.4 g/dL Normal 6.0-8.3 [facility] Comment on above: Performed By: #### L AB238 ####[place] [phone] HEPATIC FUNCTION PANELOrdere d By: Ya Veloz on 01-04-2023 Albumin [Mass/Vol] 4.2 g/dL 3.5 - 5.2 g/dL [facility] ALP [Catalytic activity/Vol] 118 U/L 23 - 144 U/L [facility] ALT [Catalytic activity/Vol] 98 U/L High 0 - 60 U/L [facility] AST [Catalytic activity/Vol] 32 U/L 0 - 46 U/L [facility] Bilirubin [Mass/Vol] mg/dL 0.0 - 1 .2 mg/dL [facility] Bilirubin.direct [Mass/Vol] mg/dL 0.0 - 0.4 mg/dL [facility] Comment on above: Hemolysis present. R esults may be affected. Bilirubin.indirect [Mass/Vol] [facility] Comment on above: Unable to calculate. Interpretation and review of laboratory results Abnormal [facility] Protein [Mass/Vol] 7.4 g/dL 6.0 - 8.3 g/dL [facility] LIPASEon 01-04-2023 Lipase [Catalytic activity/Vol] 26 U/L Normal 0-60 [facility] Comment on above: Performed By: #### L [id number] ####[place] [phone] Lipase [Catalytic activity/Vol] 26 U/L 0 - 60 U/L [facility] MAGNESIUM, SERUMon Magnesium [Mass/Vol] 2.2 mg/dL Normal 1.4-2.5 [facility] Comment on above: Performed By: #### L AB292 ####[place] [phone] Magnesium [Mass/Vol] 2.2 mg/dL 1.4 - 2 .5 mg/dL [facility] No Panel Informationon 01-04 Interpretation and review of laboratory results Normal [facility] PROGRESS NOTESon 01-04-2023 Cosmetologist Authentication Interface Message Text Normal [facility] TROPONIN T (1 HOUR)on 2022 COMMENT Normal [facility] Comment on above: Performed By: #### L [id number] ####[place] [phone] TROPONIN CHANGE NG/L Normal [facility] Comment on above: Result Comment: Unab le to Calculate Performed By: #### L [id number] ####[place] [phone] TROPONIN, 1 HOUR < Normal <=22 [facility] Comment on above: Performed By: #### L [id number] ####[place] [phone] [employer] Troponin T [facility] Comment on above: Unable to Calculate Troponin T.cardiac High sensitivity method [Mass/Vol] ng/L NINF - 22 ng/L [facility] Patients who present with symptoms suggestive of acute coronary syndrome should have Gen 5 Troponin T assay (high sensitivity Troponin T Assay) interpreted in conjunction with clinical presentation, signs and symptoms, risk stratification with HEART score, ECG testing, imaging, etc. Baseline and serial troponin testing (when clinically indicated), to assess for significant delta (rise and/or fall), will assist the clinician in differentiating between ischemic and non-ischemic causes of myocardial injury. [facility] TROPONIN T (BASELINE)on 12-10 COMMENT Normal [facility] Comment on above: Performed By: #### L [id number] ####[place] [phone] TROPONIN BASELINE 7 ng/L Normal <=22 [facility] Comment on above: Performed By: #### L [id number] ####[place] [phone] Interpretation and review of laboratory results Normal [facility] Troponin T.cardiac High sensitivity method [Mass/Vol] 7 ng/L NINF - 22 ng/L [facility] Patients who present with symptoms suggestive of acute coronary syndrome should have Gen 5 Troponin T assay (high sensitivity Troponin T Assay) interpreted in conjunction with clinical presentation, signs and symptoms, risk stratification with HEART score, ECG testing, imaging, etc. Baseline and serial troponin testing (when clinically indicated), to assess for significant delta (rise and/or fall), will assist the clinician in differentiating between ischemic and non-ischemic causes of myocardial injury. [employer] XR CHEST PA OR AP 1 VIEW (PO RTABLE)on 01-04-2023 XR CHEST PA OR AP 1 VIEW (PORTABLE) Normal [facility] IMPRESSION: Normal chest x-ray. Dictated by: Umang [place] MD Workstation ID:[id number] [facility]: XR Chest, 1 Vi ew CLINICAL INDICATION: 37 years Male ; MENTAL HEALTH PROBLEM, ABDOMINAL PAIN, BACK PAIN, CHEST PAIN, TECHNIQUE: Frontal view of the chest. COMPARISON: No relevant prior studies available. FINDINGS: LUNGS AND PLEURAL SPACES: Unremarkable. No consolidation. No pneumothorax. HEART: Unremarkable. No cardiomegaly. MEDIASTINUM: Unremarkable. Normal mediastinal contour. BONES/JOINTS: Unremarkable. No acute fracture. Umang Rm MD - 01/04/2023 EXAM: XR Chest, 1 View CLINICAL INDICATION: 37 years Male ; MENTAL HEALTH PROBLEM, ABDOMINAL PAIN, BACK PAIN, CHEST PAIN, TECHNIQUE: Frontal view of the chest. COMPARISON: No relevant prior studies available. FINDINGS: LUNGS AND PLEURAL SPACES: Unremarkable. No consolidation. No pneumothorax. HEART: Unremarkable. No cardiomegaly. MEDIASTINUM: Unremarkable. Normal mediastinal contour. BONES/JOINTS: Unremarkable. No acute fracture. IMPRESSION: Normal chest x-ray. Dictated by: Umang Palma MD Workstation ID:[id number] [facility] Radiology Study observation (narrative) [employer] XR CHEST PA OR AP 1 VIEW (PO RTABLE)Ordered By: Umang Palma on 01-04-2023 [employer] Work Phone: Consultson 11-13-2022 Consults Encounter Department : [facility] Consults by LEODAN Sargent at 11/12/2022 10:29 PM Author: REYES Sargentervice: -Author Type: CRISTOBAL Specialist Filed: 11/12/2022 10:30 PMDate of Service: 11/12/2022 10:29 PMStatus: Signed Parts Data Writer: LEODAN Sargent (CRISTOBAL Specialist) Consult Orders 1. Behavioral Health Assessment Consult [[id number]] ordered by Karely Craig DO at 11/12/228 BEHAVIORAL HEALTH ASSESSMENT TEAM CONSULT DATE: 11/12/22 Consult: Community Resources Referral - Substance Use disorder (JIMMY) Identifying Information: 37 y.o. male Narrative: Request for JIMMY resources. Attending MD denies the need for assessment and is requesting resources to be placed in DC instructions. Physician Contact: Karely Craig DO Disposition: Placed JIMMY resources in DC instructions. Thank you for involving The Behavioral Health Assessment Team in the care of your patient. Please call [phone] for any needs or questions Normal [facility] ED Provider Noteson 11-14-19 ED Provider Notes Encounter Department : [facility] ED Provider Notes by aKyla Simon DO at 11/12/2022 10:31 PM Author: Eusebia Connerrvice: Emergency MedicineAuthor Type: ED Physician Filed: 11/12/2022 10:31 PMDate of Service: 11/12/2022 10:31 PMStatus: Signed Parts Data Writer: Kayla Simon DO (ED Physician)Cosigner: Karely Craig DO at 11/12/2022 10:34 PM This patient was seen during a simultaneous interview and physical exam performed by myself and Dr. Craig. We discussed the care, plan/treatment, medical decision making, and agree. Please see his documentation for HPI, ROS, PE, ED workup, MDM and final disposition. Electronically signed by: Kayla Simon DO 11/12/2022 10:31 PM Kayla Simon DO 11/12/22 2231 Normal [facility] ED Provider Notes Encounter Department : [facility] ED Provider Notes by Karely Craig DO at 11/12/2022 10:30 PM Author: Eusebia Lowervice: Emergency MedicineAuthor Type: ED Physician Filed: 11/12/2022 10:34 PMDate of Service: 11/12/2022 10:30 PMStatus: Signed Parts Data Writer: Karely Craig DO (ED Physician) Patient seen in conjunction with the resident physician. I have personally seen, examined and fully participated in the care of this patient. I have discussed the patient with the resident physician and agree with the management. CHIEF COMPLAINT Chief Complaint Patient presents with -Alcohol Problem TRIAGE NOTE: Nohelia Ma, RN 11/12/2022 9:54 PM Signed Patient ambulatory to triage states he is here for help with his alcoholism. States he wants to go to rehab. HPI / PERTINENT REVIEW OF SYSTEMS Mckinley Roman is a 37 y.o. male in bed GVEDB19/B19 who presents to the ED requesting resources for alcohol abuse treatment. Patient states that he has ongoing history of alcohol abuse and last drink 1 hour ago. Patient is well-known to the ED for frequent visits for the similar complaint. CRISTOBAL has been consulted in the past and he has been kicked out of nearly every drug and alcohol rehab center in the area due to his violent behavior. Currently he denies any symptoms including chest pain, shortness of breath, nausea, vomiting, abdominal pain, anxiety, SI, HI, auditory visual hallucinations. States that he just needs quitting drinking. PAST MEDICAL HISTORY / FAMILY HISTORY Past Medical History: DiagnosisDate -Alcoholic (HCC) -Anxiety -Major depressive disorder Above past medical conditions reviewed and verified by me. SOCIAL HISTORY Social History Socioeconomic History -Marital status:Single Tobacco Use -Smoking status:Some Days Types:Cigarettes -Smokeless tobacco:Never Vaping Use -Vaping Use:Some days Substance and Sexual Activity -Alcohol use:Yes Comment: fifth of whiskey a day -Drug use:Yes Types:Methamphetamines -Sexual activity:Yes Above social elements reviewed and verified by me. SURGICAL HISTORY History reviewed. No pertinent surgical history. VITAL SIGNS ED Triage Vitals [11/12/22 2155] BP(!) 143/97 Temp97.9 ?F (36.6 ?C) Pulse79 Resp16 ImT7823 % Tdlabd960 lb (104.3 kg) Alexander Coma Scale Score15 BMI (Calculated)32.1 PERTINENT PHYSICAL EXAM Constitutional: nad Cardiovascular: RRR Thorax AND Lungs: no respiratory distress, no wheezes or crackles bilaterally Skin: no diaphoresis Neurologic: Alert AND oriented x 3, non focal. No tremors Psych: Agitated MEDICAL DECISION MAKING/ED COURSE MDM Patient presents with above concerns. Vitals are noted. Exam as above. Comorbidities impacting presentation- Stability/Severity include: Major depressive disorder Social determinants of health impacting this presentation, if applicable: Ongoing alcohol abuse. Medical noncompliance Patient presents requesting resources for alcohol abuse treatment programs. Became verbally abusive and aggressive with triage staff. Police had to de-escalate the situation. Patient has been seen numerous times in the ED before for this complaint and has been evaluated by [facility]. He has been kicked out of nearly every drug and alcohol treatment center in the area due to his behaviors. He denies any symptoms at this time just requesting resources for his alcohol abuse. He has no signs or symptoms of alcohol withdrawal on evaluation in the ER today. He will be discharged with drug and alcohol treatment resources placed in the chart by [facility]. Discharged in stable condition FINAL IMPRESSION(S) 1.Verbally abusive behavior 2.Chronic alcohol abuse Electronically signed by: Karely Craig DO 11/12/222233 Normal [facility] CT HEAD WITHOUT CONTRASTon 0 11-02-2022 CT HEAD WITHOUT CONTRAST Normal [facility] ED NOTESon 11-02-2022 [facility] Ed Note ED Note: Last filed note HNO ID: [id number] Author: Ramona Jama RN Service: ? Author Type: Registered Nurse Filed: 11/01/222228 Note Text: Bed: MVN24 Expected date: Expected time: Means of arrival: Comments: medic Normal [facility] ED PROVIDER NOTESon 11-03-19 [facility] Ed Provider Note Normal [facility] Ed Provider Note Normal [facility] Ed Provider Note Normal [facility] Ed Provider Note Normal [facility] ED TRIAGEon 11-02-2022 [facility] Ed Triage Note ED Triage Note: Last filed note HNO ID: [id number] Author: Uriah Marcus RN Service: Emergency Medicine Author Type: Registered Nurse Filed: 09/25/23 0119 Note Text: Pt reports that he left here and [facility]. Normal [facility] Php Ed Triage Note Normal [facility] PROGRESS NOTESon 11-02-2022 Cosmetologist Authentication Interface Message Text Normal [facility] BASIC METABOLIC PANELon 10-10 ANION GAP Normal [facility] Comment on above: Order Comment: [facility] 2012 GFR CategoriesStageDescriptioneGFR (mL/min/1.73m2)F9Chovvs or high>=59S8Pnaoab gegjhimbs61-83P0jSbeiun to moderately lximwunxb88-08M9oLzwgkezibu to severely tbtizzwad63-80L9Wptefhfl jxtvitgqr39-43A5Qgbxqq Failure<15Release to patient->Immediate Performed By: #### L AB15 ####[facility] [id number] [place] [address] Anion gap [Moles/Vol] 10 mmol/L Normal 7-16 [facility] Comment on above: Order Comment: [facility] 2012 GFR CategoriesStageDescriptioneGFR (mL/min/1.73m2)S4Xrqdab or high>=69K6Ajoeqo -48D8pXoqnxh to moderately woxuosjzw82-68L6dXfwzbaccbf to severely ppfiktlcn76-78G4Pwobadna hbwzbjwok64-47L5Btgnfx Failure<15Release to patient->Immediate Performed By: #### L AB15 ####[facility] [id number] [place] [address] BLOOD UREA NITROGEN Normal [facility] Comment on above: Order Comment: KDIGO 2012 GFR CategoriesStageDescriptioneGFR (mL/min/1.73m2)N9Mqrhzt or high>=76R6Huyqeb kwdzdfyag62-17J4gMcnrqh to moderately paffspudu04-09E0kCpvunzgher to severely -49I8Nrbvqept tzmokotme78-77N3Ceofxf Failure<15Release to patient->Immediate Performed By: #### L AB15 ####[facility] [id number] [place] [address] CALCIUM Normal [facility] Comment on above: Order Comment: KDIGO 2012 GFR CategoriesStageDescriptioneGFR (mL/min/1.73m2)S2Evoepe or high>=72K8Lhpbqh hqkwdcefe07-71F6mQueqrk to moderately kemutgbuo22-58Z1fXoieyegdab to severely xfktvwvax34-96L4Momydgrf ltamjguuu97-66O1Tphdzy Failure<15Release to patient->Immediate Performed By: #### L AB15 ####[facility] [place] [address] Calcium [Mass/Vol] 8.4 mg/dL Normal 8.6-10.2 [facility] Comment on above: Order Comment: IGO 2012 GFR CategoriesStageDescriptioneGFR (mL/min/1.73m2)F3Xezqiu or high>=06W8Ngqqih lvosadpom39-16F5xVjjrgr to moderately ezmfatlch10-64X9oIryfhmgtzh to severely kwlfimfuv85-07A0Navisezr oilwvdqoi88-64J3Ivixxk Failure<15Release to patient->Immediate Performed By: #### L AB15 ####[address] [place] [address] CARBON DIOXIDE Normal [facility] Comment on above: Order Comment: IGO 2012 GFR CategoriesStageDescriptioneGFR (mL/min/1.73m2)C4Wdlvot or high>=39J3Uliijq insqovdwm69-03B7xZbsdts to moderately bsddoozcy74-26V3lHnfmtiuqld to severely irkwkvvsl15-57H8Bbkftbpa koyrjxaxf65-53E0Otrrgb Failure<15Release to patient->Immediate Performed By: #### L AB15 ####[facility] [id number] [place] [address].[place] [address] CHLORIDE Normal [facility] Comment on above: Order Comment: IGO 2012 GFR CategoriesStageDescriptioneGFR (mL/min/1.73m2)Q0Zjltwq or high>=46H0Xraosp mulcoqrlc31-26B3eFcvzjx to moderately hwtdkpybb15-46L5tTuvzzlivpj to severely buayeqayi67-74A1Umqhrknk eembknspq44-55X5Ehfcoq Failure<15Release to patient->Immediate Performed By: #### L AB15 ####[facility] [id number] [place] [address] Chloride [Moles/Vol] 107 mmol/L Normal 98-107 [facility] Comment on above: Order Comment: KDIGO 2012 GFR CategoriesStageDescriptioneGFR (mL/min/1.73m2)C9Juyaat or high>=31T1Dicsgg nzaeilqsx08-41O5lSdsaio to moderately qaadfuuvf76-46L2hEdpgffqubq to severely rdsisucld58-56O6Anbiuocg bonyechag97-86M1Mjhvef Failure<15Release to patient->Immediate Performed By: #### L AB15 ####[facility] [id number] [place] [address] CO2 [Moles/Vol] 21 mmol/L Normal 21-31 [facility] Comment on above: Order Comment: KDIGO 2012 GFR CategoriesStageDescriptioneGFR (mL/min/1.73m2)G3Hvltzg or high>=25S0Xsujev wxzxecevp48-72P0yDfglha to moderately lpvcyjjiz19-97Z5jQznvmqjfqy to severely ljgpptaup38-88J2Hmuwjaoq ewxhjhidt75-79V5Ykkfyj Failure<15Release to patient->Immediate Performed By: #### L AB15 ####[facility] [address] [place] [address] CREATININE Normal [facility] Comment on above: Order Comment: KDIGO 2012 GFR CategoriesStageDescriptioneGFR (mL/min/1.73m2)Q1Skxzcg or high>=57F2Huiydy biahzzbyo92-52I1jUxfctz to moderately hptmigihf64-61V2iTqopdkhctn to severely opwrwuboe18-63Y0Opagxeec bqnrrabfg65-15S0Vmqxpq Failure<15Release to patient->Immediate Performed By: #### L AB15 ####[facility] [id number] [place] [address] Creatinine [Mass/Vol] 1.00 mg/dL Normal 0.7-1.3 [facility] Comment on above: Order Comment: KDIGO 2012 GFR CategoriesStageDescriptioneGFR (mL/min/1.73m2)K6Lrheph or high>=99L8Sypagv itvhibxyq77-53V0gZwjrdl to moderately mypmszeto89-89P9yCuvsrrwozs to severely grcxiaepg55-76M1Buwneulv zddxxxros51-51L1Udzhmz Failure<15Release to patient->Immediate Performed By: #### L AB15 ####[facility] [id number] [place] [address] GFR MALE Normal [facility] Comment on above: Order Comment: KDIGO 2012 GFR CategoriesStageDescriptioneGFR (mL/min/1.73m2)T5Vmhowh or high>=30H5Fltvim ysfyqzxbl45-70S0nKmzccl to moderately lrepequar73-34K8vNtepbikerg to severely ghtxaycxy52-12Q3Akezmcpv hbtimzrwo96-05W7Mrtgut Failure<15Release to patient->Immediate Result Comment: Repo rted eGFR is based on the CKD-EPI 2020 equation that does not use a race coefficient. Performed By: #### L AB15 ####[facility] [id number] [place] [address] GFR MALE >90 Normal >90 [facility] Comment on above: Order Comment: KDIGO 2012 GFR CategoriesStageDescriptioneGFR (mL/min/1.73m2)Y5Szgmdt or high>=70F7Bgxplc oflsnabhq86-89V1oSnpdtg to moderately epvourkzf49-79C3uXxwebvducc to severely ctgwdunmj33-15U7Okejdtvt oaherbwje48-32N4Ljasym Failure<15Release to patient->Immediate Performed By: #### L AB15 ####[facility] [id number] [place], [place] [address] [address] GLUCOSE Normal [facility] Comment on above: Order Comment: KDIGO 2012 GFR CategoriesStageDescriptioneGFR (mL/min/1.73m2)D4Nuabdn or high>=24P1Frhpqc mzsxpjelh57-80M5sZjfand to moderately wdejeldtn45-29O6fCrnknqaein to severely lrvivkwxs15-50W2Agsjeimi coykjzxwm37-32B1Yoknfb Failure<15Release to patient->Immediate Performed By: #### L AB15 ####[facility] [address] [place] [address] Glucose [Mass/Vol] 91 mg/dL Normal 74-109 [facility] Comment on above: Order Comment: KDIGO 2012 GFR CategoriesStageDescriptioneGFR (mL/min/1.73m2)M1Ivdwfq or high>=87Q2Vcqemn sjtguyohn62-05G3lRafstp to moderately spzaxrnqc24-96S3cHpnlloehmg to severely zhbhmaagw95-78O4Gmwiunvi xargvesqg31-54H5Kcqygn Failure<15Release to patient->Immediate Performed By: #### L AB15 ####[address] [address] POTASSIUM [facility] Comment on above: Order Comment: KDIGO 2012 GFR CategoriesStageDescriptioneGFR (mL/min/1.73m2)D8Zdxoos or high>=01M1Rlnexc jepepehvx17-77K6bAferdt to moderately ymfgqoklx94-74P5lEkykyerqck to severely sznyczkiw48-80Z0Tdblpobb tlezokovo34-69O0Iplxyb Failure<15Release to patient->Immediate Performed By: #### L AB15 ####[address] [address] Potassium [Moles/Vol] 4.0 mmol/L Normal 3.5-5.1 [facility] Comment on above: Order Comment: KDIGO 2012 GFR CategoriesStageDescriptioneGFR (mL/min/1.73m2)S7Tfsfem or high>=95I1Ndgaed zlediaqsf82-67K7rFijdfy to moderately ylahziswl65-51A5uPmvuuyoqju to severely ppebanxko77-61L7Oavfgiwd twhelrrru15-43B6Punrvf Failure<15Release to patient->Immediate Performed By: #### L AB15 ####[address] [address] SODIUM [facility] Comment on above: Order Comment: KDIGO 2012 GFR CategoriesStageDescriptioneGFR (mL/min/1.73m2)Z1Wdujyq or high>=60S5Cvcqdv vvkansmlx84-22U8fPhhsca to moderately fiqxmaded64-91V0gRkvutzpunn to severely -17T5Niunxkmr vkqrvatjq21-14C0Retdrk Failure<15Release to patient->Immediate Performed By: #### L AB15 ####[address] [place] [address] Sodium [Moles/Vol] 138 mmol/L Normal 136-145 [facility] Comment on above: Order Comment: IGO 2012 GFR CategoriesStageDescriptioneGFR (mL/min/1.73m2)O7Sdsqdk or high>=60P4Girlzt bfuvtryld74-18U0aMgmcqi to moderately afqajnmkd07-49Z3pZwkadwjqld to severely bkenojrks64-10U2Ltgbsryl zmeohexgx19-18H1Hxgzhp Failure<15Release to patient->Immediate Performed By: #### L AB15 ####[facility] [place] [address] Urea nitrogen [Mass/Vol] 17 mg/dL Normal 7-25 [facility] Comment on above: Order Comment: KDIGO 2012 GFR CategoriesStageDescriptioneGFR (mL/min/1.73m2)W6Rmglon or high>=72Z7Ukrvab aijxxxrvs14-68R3oRtstrz to moderately kemiflnpi90-89E3uCfjvezveav to severely -17P9Wktdtspv wmjpwzuii22-39X1Vrnhrm Failure<15Release to patient->Immediate Performed By: #### L AB15 ####[address] [address] CBC W/DIFFon 11-01-2022 BASOPHILS ABS AUTO Normal [facility] Comment on above: Order Comment: Relea se to patient->Immediate Performed By: #### L [id number] #### [facility] [address] [place] [address] BASOPHILS ABS AUTO 0.1 K/uL Normal 0.0-0.1 [facility] Comment on above: Order Comment: Relea se to patient->Immediate Performed By: #### L [id number] #### [facility] [address] [place] [address] BASOPHILS RELATIVE AUTO Normal [facility] Comment on above: Order Comment: Relea se to patient->Immediate Performed By: #### L [id number] #### [facility] [address] [place] [address] Basophils/100 WBC (Bld) 0.8 % Normal [facility] Comment on above: Order Comment: Relea se to patient->Immediate Performed By: #### L [id number] #### [facility] [address] [place] [address] EOSINOPHIL ABS AUTO Normal [facility] Comment on above: Order Comment: Relea se to patient->Immediate Performed By: #### L [id number] #### [facility] [address] [place] [address] Eosinophils (Bld) [#/Vol] 0.3 10*3/uL Normal 0.0-0.4 [facility] Comment on above: Order Comment: Relea se to patient->Immediate Performed By: #### L [id number] #### [facility] [address] [place] [address] EOSINOPHILS RELATIVE AUTO Normal [facility] Comment on above: Order Comment: Relea se to patient->Immediate Performed By: #### L [id number] #### [facility] [address] [place] [address] Eosinophils/100 WBC (Bld) 3.1 % Normal [facility] Comment on above: Order Comment: Relea se to patient->Immediate Performed By: #### L [id number] #### [facility] [address] [place] [address] Erythrocyte distribution width (RBC) [Ratio] 13.6 % Normal 11.7-15.2 [facility] Comment on above: Order Comment: Relea se to patient->Immediate Performed By: #### L [id number] #### [facility] [address] [place] [address] HEMATOCRIT BLOOD Normal 39.0-51.5 [facility] Comment on above: Order Comment: Relea se to patient->Immediate Performed By: #### L [id number] #### [facility] [address] [place] [address] HEMATOCRIT BLOOD 44.1 Normal [facility] Comment on above: Order Comment: Relea se to patient->Immediate Performed By: #### L [id number] #### [facility] [address] [place] [address] HEMOGLOBIN Normal [facility] Comment on above: Order Comment: Relea se to patient->Immediate Performed By: #### L [id number] #### [facility] [address] [place] [address] Hemoglobin (Bld) [Mass/Vol] 15.9 g/dL Normal 13.1-17.6 [facility] Comment on above: Order Comment: Relea se to patient->Immediate Performed By: #### L [id number] #### [facility] [address] [place] [address] LYMPHOCYTE ABS AUTO Normal [facility] Comment on above: Order Comment: Relea se to patient->Immediate Performed By: #### L [id number] #### [facility] [address] [place] [address] Lymphocytes (Bld) [#/Vol] 4.1 10*3/uL Normal 0.8-3.6 [facility] Comment on above: Order Comment: Relea se to patient->Immediate Performed By: #### L [id number] #### [facility] [address] [place] [address] LYMPHOCYTES RELATIVE AUTO Normal [facility] Comment on above: Order Comment: Relea se to patient->Immediate Performed By: #### L [id number] #### [facility] [address] [place] [address] Lymphocytes/100 WBC (Bld) 46.4 % Normal [facility] Comment on above: Order Comment: Relea se to patient->Immediate Performed By: #### L [id number] #### [facility] [address] [place] [address] MCH Normal [facility] Comment on above: Order Comment: Relea se to patient->Immediate Performed By: #### L [id number] #### [facility] [address] [place] [address] MCH (RBC) [Entitic mass] 30.6 pg Normal 28.4-33.4 [facility] Comment on above: Order Comment: Relea se to patient->Immediate Performed By: #### L [id number] #### [facility] [address] [place] [address] MCHC Normal [facility] Comment on above: Order Comment: Relea se to patient->Immediate Performed By: #### L [id number] #### [facility] [address] [place] [address] MCHC (RBC) [Mass/Vol] 36.1 g/dL Normal 31.1-37.0 [facility] Comment on above: Order Comment: Relea se to patient->Immediate Performed By: #### L [id number] #### [facility] [address] [place] [address] MCV Normal [facility] Comment on above: Order Comment: Relea se to patient->Immediate Performed By: #### L [id number] #### [facility] [address] [place] [address] MCV (RBC) [Entitic vol] 85.0 fL Normal 85.0-99.0 [facility] Comment on above: Order Comment: Relea se to patient->Immediate Performed By: #### L [id number] #### [facility] [address] [place] [address] MONOCYTE ABS AUTO Normal [facility] Comment on above: Order Comment: Relea se to patient->Immediate Performed By: #### L [id number] #### [facility] [address] [place] [address] Monocytes (Bld) [#/Vol] 0.7 10*3/uL Normal 0.3-0.9 [facility] Comment on above: Order Comment: Relea se to patient->Immediate Performed By: #### L [id number] #### [facility] [address] [place] [address] MONOCYTES RELATIVE AUTO Normal [facility] Comment on above: Order Comment: Relea se to patient->Immediate Performed By: #### L [id number] #### [facility] [address] [place] [address] Monocytes/100 WBC (Bld) 7.5 % Normal [facility] Comment on above: Order Comment: Relea se to patient->Immediate Performed By: #### L [id number] #### [facility] [address] [place] [address] NEUTROPHIL ABS AUTO Normal [facility] Comment on above: Order Comment: Relea se to patient->Immediate Performed By: #### L [id number] #### [facility] [address] [place] [address] NEUTROPHIL ABS AUTO 3.7 K/uL Normal 2.0-7.3 [facility] Comment on above: Order Comment: Relea se to patient->Immediate Performed By: #### L [id number] #### [facility] [address] [place] [address] NEUTROPHILS RELATIVE AUTO Normal [facility] Comment on above: Order Comment: Relea se to patient->Immediate Performed By: #### L [id number] #### [facility] [address] [place] [address] Neutrophils/100 WBC (Bld) 42.2 % Normal [facility] Comment on above: Order Comment: Relea se to patient->Immediate Performed By: #### L [id number] #### [facility] [address] [place] [address] PLATELET COUNT Normal [facility] Comment on above: Order Comment: Relea se to patient->Immediate Performed By: #### L [id number] #### [facility] [address] [place] [address] Platelets (Bld) [#/Vol] 376 10*3/uL Normal 154-393 [facility] Comment on above: Order Comment: Relea se to patient->Immediate Performed By: #### L [id number] #### [facility] [address] [place] [address] RBC (Bld) [#/Vol] 5.19 10*6/uL Normal 4.30-5.86 [facility] Comment on above: Order Comment: Relea se to patient->Immediate Performed By: #### L [id number] #### [facility] [address] [place] [address] RDW Normal [facility] Comment on above: Order Comment: Relea se to patient->Immediate Performed By: #### L [id number] #### [facility] [address] [place] [address] RED BLOOD CELL COUNT Normal [facility] Comment on above: Order Comment: Relea se to patient->Immediate Performed By: #### L [id number] #### [facility] [address] [place] [address] WBC (Bld) [#/Vol] 8.9 10*3/uL Normal 4.0-10.5 [facility] Comment on above: Order Comment: Relea se to patient->Immediate Performed By: #### L [id number] #### [facility] [address] [place] [address] WHITE BLOOD CELL COUNT Normal [facility] Comment on above: Order Comment: Relea se to patient->Immediate Performed By: #### L [id number] #### [facility] [address] [place] [address] CT HEAD WITHOUT CONTRASTon 0 11-01-2022 IMPRESSION: No current CT evidence of an acute intracranial process. DICTATED BY: Young Metcalf M.D.Workstation ID:[id number] MARGO HERMOSILLO 11/01/2022 10:[address] HEAD WITHOUT CONTRAST INDICATION: SUICIDAL IDEATIONS, . COMPARISON: None TECHNIQUE: Multidetector CT images were obtained of the head without IV contrast. Coronal and sagittal reformats were reviewed FINDINGS: No acute intracranial hemorrhage, mass effect, or midline shift. The ma-white matter differentiation is preserved. The brain is normal in attenuation. The ventricles and extra-axial CSF spaces are normal in size for the patient's age. The calvarium is intact without evidence of depressed calvarial fracture. The visualized paranasal sinuses and mastoid air cells are clear. No acute intra-orbital findings. [facility] Young Preciado M D - 11/01/2022 11/01/2022 10:[address] HEAD WITHOUT CONTRAST INDICATION: SUICIDAL IDEATIONS, . COMPARISON: None TECHNIQUE: Multidetector CT images were obtained of the head without IV contrast. Coronal and sagittal reformats were reviewed FINDINGS: No acute intracranial hemorrhage, mass effect, or midline shift. The ma-white matter differentiation is preserved. The brain is normal in attenuation. The ventricles and extra-axial CSF spaces are normal in size for the patient's age. The calvarium is intact without evidence of depressed calvarial fracture. The visualized paranasal sinuses and mastoid air cells are clear. No acute intra-orbital findings. IMPRESSION: No current CT evidence of an acute intracranial process. DICTATED BY: Young Metcalf M.D.Workstation ID:[id number] [facility] Radiology Study observation (narrative) [facility] CT HEAD WITHOUT CONTRASTOrde red By: Young Metcalf on 11-01-2022 [facility] Work Phone: Consultson 11-01-2022 Consults Encounter Department : [facility] EMERGENCY Consults by LEODAN Durand at 11/01/2022 6:20 AM Author: REYES Durandervice: -Author Type: CRISTOBAL Specialist Filed: 11/01/2022 6:34 AMDate of Service: 11/01/2022 6:20 AMStatus: Signed Parts Data Writer: LEODAN Durand (CRISTOBAL Specialist) BEHAVIORAL HEALTH ASSESSMENT TEAM CONSULT DATE: 11/01/22 CRISTOBAL received a new consult for Other- [facility] Support Presenting Problem: JIMMY (Substance Use) Narrative: Paged per ED protocol however pt is pending ED intake process. CRISTOBAL will review chart, process with attending and monitor progress. Pt came in around 2am with ethanol level of 298 and most likely still intoxicated and will be seen by first shift. Physician Contact: -Attending MD/REZA: Dr. Valdez Disposition: CRISTOBAL will continue to follow and complete assessment as appropriate Thank you for involving the [facility] Health Assessment Team in the care of your patient. Please call [phone] with needs or questions Normal [facility] ED NOTESon 11-01-2022 [facility] Ed Note Normal [facility] Ed Note ED Note: Last filed note HNO ID: [id number] Author: Ramona Jama RN Service: ? Author Type: Registered Nurse Filed: 11/01/221938 Note Text: Bed: MVN22 Expected date: Expected time: Means of arrival: Comments: medic Normal [facility] ED PROVIDER NOTESon 11-02-19 [facility] Ed Provider Note Normal [facility] ED Provider Noteson 11-02-19 ED Provider Notes Encounter Department : [facility] EMERGENCY ED Provider Notes by Dewayne Valdez DO at 11/01/2022 5:54 AM Author: Eusebia Cruzrvice: Emergency MedicineAuthor Type: Resident Filed: 11/01/2022 8:50 AMDate of Service: 11/01/2022 5:54 AMStatus: Signed Parts Data Writer: Dewayne Valdez DO (Resident)Cosigner: Jourdan Trinh MD at 11/01/2022 7:50 PM Care of this patient was handed over to me at 6:00 AM. I have reviewed the notes, assessments, and/or procedures performed by Dr. Lopez, I concur with her/his documentation of Mckinleyjanessa Roman. Please see Dr. Lopez's note for HPI, ROS, and PE. BP: 112/78 (11/01 633) Temp: 98.4 ?F (36.9 ?C) (11/02 207) Pulse: 84 (11/01 633) Resp: 16 (11/01 633) SpO2: 94 % (11/01 633) FiO2 (%): -- O2 Flow Rate (L/min): -- Cardiac (WDL): Exceptions to WDL (11/01 626) Cardiac Rhythm: Normal sinus rhythm (11/01 626) BASIC METABOLIC PANEL - Abnormal; Notable for the following components: ResultValueRef RangeStatus Calcium8.4 (*)8.6 - 10.2 mg/dLFinal All other components within normal limits Narrative: KDIGO 2012 GFR Categories Stage Description eGFR (mL/min/1.73m2) G1 Normal or high >=90 G2 Mildly decreased 60-89 G3a Mildly to moderately decreased 45-59 G3b Moderately to severely decreased 30-44 G4 Severely decreased 15-29 G5 Kidney Failure <15 SERUM TOX SCREEN - Abnormal; Notable for the following components: Acetaminophen Level<10 (*)10 - 30 ug/mLFinal Khllgci807 (*)<10 mg/dLFinal Salicylate<2.5 (*)3.0 - 20.0 mg/dLFinal All other components within normal limits Narrative: Salicylate Therapeutic Range: 20-25 mg/dL Acetaminophen Therapeutic Range:10.00-30.00 ug/mL URINE CULTURE, CONDITIONAL - Abnormal; Notable for the following components: Urine ColorColorless (*)YellowFinal All other components within normal limits Narrative: Culture of the urine specimen was not completed as criteria were not met. CBC W/DIFF - Abnormal; Notable for the following components: Lymphocytes Absolute4.1 (*)0.8 - 3.6 K/uLFinal All other components within normal limits URINE DRUG SCREEN - Normal Narrative: Drug Screen Cut-off values: Amphetamines 300 ng/ml Benzodiazepines 200 ng/ml Barbiturates 200 ng/ml Cocaine metabolite 300 ng/ml Cannabinoids 50 ng/ml Opiates 300 ng/ml * Results are unconfirmed screening results and should only be used for medical purposes. URINE CULTURE, CONDITIONAL, NOT PERFORMED No orders to display ED Course AND MDM 29-year-old male presents to the emergency department with acute alcohol intoxication. Patient handed off at approximately 6:00 AM. Patient awaiting brief intervention by behavioral health and likely discharge once clinically sober. Patient was observed for a couple of hours. Patient clinically sober. He is requesting to leave. Feel he can be safely discharged. Resources provided in discharge papers. Medications Administered in the Emergency Dept: Medications thiamine (B-1) injection 100 mg (100 mg Intramuscular Not Given 11/01/22 025) vitamin - qlntyte-qpxg-houhk acid ( PLUS CALCIUM) 27 mg iron- 1 mg tablet 1 tablet (1 tablet Oral Not Given 11/01/22252) Medications to be Initiated at Time of Discharge: N/A Final Impression(s): ICD-10-CM 1.Acute alcoholic intoxication, uncomplicated (HCC) F10.920 Electronically signed by: Dewayne Valdez DO Emergency Medicine Resident HANDP 11/01/2022 Dewayne Valdez DO Resident 11/01/22 0850 Normal [facility] ED Provider Notes Encounter Department : [facility] EMERGENCY ED Provider Notes by Jourdan Trinh MD at 11/01/2022 2:29 AM Author: VINEET Hernandezervice: Emergency MedicineAuthor Type: ED Physician Filed: 11/01/2022 7:48 PMDate of Service: 11/01/2022 2:29 AMStatus: Signed Parts Data Writer: Jourdan Trinh MD (ED Physician) I saw and evaluated the patient and directed the plan of care. I have discussed with the resident, Dr. Lopez, and agree with the findings and plan. FINAL IMPRESSION(S) ICD-10-CM 1.Acute alcoholic intoxication, uncomplicated (HCC) F10.920 DISPOSITION PLAN Patient signed out pending behavioral health assessment evaluation. DISCHARGE MEDICATION(S) / CHANGES TO HOME MEDICATIONS Discharge Medication List as of 11/01/2022 8:50 AM CHIEF COMPLAINT Chief Complaint Patient presents with -Alcohol Problem TRIAGE NOTE: Corinna Lundberg RN 11/01/2022 2:05 AM Signed Patient brought in by medics for alcohol evaluation. Patient states that he has been drinking a gallon of whiskey daily. Patient called voluntarily, patient presents intoxicated. [place] HPI / RELEVANT PATRICIO Roman is a 37 y.o. male in bed GVEDC23/C23 who presents to the ED with complaint of alcohol intoxication. Patient reports he has been drinking a gallon of whiskey daily. He is requesting assistance with rehabilitation. Review of medical record shows patient has reported feeling shaky during detox previously, no history of seizures. Patient reports he has gone through rehabilitation in the past and was sober for several months. Patient denies any nausea or vomiting. Denies any abdominal. Chest. At this time. GARCÍA PORTION OF PHYSICAL EXAM ED Triage Vitals BP11/01/22 6214987/80 Temp11/01/22 732114.4 ?F (36.9 ?C) Pulse11/01/22 284849 Resp11/01/22 635585 AoT35311/01/22 599550 % Weight-- Alexander Coma Scale Score11/01/22 206854 BMI (Calculated)-- Afebrile. Alert and oriented x4. Lung sounds clear to auscultation equal bilaterally. Heart is regular rate and rhythm without murmur rub or gallop. LAB RESULTS BASIC METABOLIC PANEL - Abnormal; Notable for the following components: ResultValueRef RangeStatus Calcium8.4 (*)8.6 - 10.2 mg/dLFinal All other components within normal limits Narrative: KDIGO 2012 GFR Categories Stage Description eGFR (mL/min/1.73m2) G1 Normal or high >=90 G2 Mildly decreased 60-89 G3a Mildly to moderately decreased 45-59 G3b Moderately to severely decreased 30-44 G4 Severely decreased 15-29 G5 Kidney Failure <15 SERUM TOX SCREEN - Abnormal; Notable for the following components: Acetaminophen Level<10 (*)10 - 30 ug/mLFinal [id number] (*)<10 mg/dLFinal Salicylate<2.5 (*)3.0 - 20.0 mg/dLFinal All other components within normal limits Narrative: Salicylate Therapeutic Range: 20-25 mg/dL Acetaminophen Therapeutic Range:10.00-30.00 ug/mL URINE CULTURE, CONDITIONAL - Abnormal; Notable for the following components: Urine ColorColorless (*)YellowFinal All other components within normal limits Narrative: Culture of the urine specimen was not completed as criteria were not met. CBC W/DIFF - Abnormal; Notable for the following components: Lymphocytes Absolute4.1 (*)0.8 - 3.6 K/uLFinal All other components within normal limits URINE DRUG SCREEN - Normal Narrative: Drug Screen Cut-off values: Amphetamines 300 ng/ml Benzodiazepines 200 ng/ml Barbiturates 200 ng/ml Cocaine metabolite 300 ng/ml Cannabinoids 50 ng/ml Opiates 300 ng/ml * Results are unconfirmed screening results and should only be used for medical purposes. URINE CULTURE, CONDITIONAL, NOT PERFORMED ED COURSE Repeat Vitals: BP: 146/89 (11/01 852) Temp: 98.4 ?F (36.9 ?C) (11/02 207) Pulse: 95 (11/01 852) Resp: 16 (11/01 852) SpO2: 99 % (11/01 852) FiO2 (%): -- O2 Flow Rate (L/min): -- Cardiac (WDL): Exceptions to WDL (11/01 626) Cardiac Rhythm: Normal sinus rhythm (11/01 626) Medications - No data to display 37-year-old male presenting to the emergency department symptoms as described. Laboratory evaluation shows negative UDS, unremarkable basic metabolic panel. Ethanol 298. Normal CBC. Patient is observed here in the emergency department pending evaluation by behavioral health assessment for placement if available alcohol addiction rehabilitation. Electronically signed by: Jourdan Trinh MD, 11/01/2022 Jourdan Trinh MD 11/01/221947 Normal [facility] ED Provider Notes Encounter Department : [facility] EMERGENCY ED Provider Notes by Mike Lopez DO at 11/01/2022 2:25 AM Author: Eusebia Abdirvice: Emergency MedicineAuthor Type: Resident Filed: 11/01/2022 5:52 AMDate of Service: 11/01/2022 2:25 AMStatus: Signed Parts Data Writer: Mike Lopez DO (Resident)Cosigner: Jourdan Trinh MD at 11/01/2022 5:58 AM CHIEF COMPLAINT Chief Complaint Patient presents with -Alcohol Problem TRIAGE NOTE: Corinna Lundberg RN 11/01/2022 2:05 AM Signed Patient brought in by medics for alcohol evaluation. Patient states that he has been drinking a gallon of whiskey daily. Patient called voluntarily, patient presents intoxicated. [place]. HPI/PERTINENT REVIEW OF SYSTEMS Mckinley Roman is a 37 y.o. male past medical history of alcohol abuse and major depressive disorder in bed GVEDC23/C23 who presents to the ED via EMS because he has been drinking a gallon of whiskey daily for the last several weeks. He was sitting outside of [employer] station and called EMS to come get him because he wishes to seek treatment for alcohol detox. He says he is depressed because of his drinking. Denies any chest pain, back pain, abdominal pain, nausea, vomiting, diarrhea. PAST MEDICAL HISTORY / FAMILY HISTORY Past Medical History: DiagnosisDate -Alcoholic (HCC) -Anxiety -Major depressive disorder No family history on file. Above past medical conditions reviewed and verified by me. SOCIAL HISTORY Social History Socioeconomic History -Marital status:Single Tobacco Use -Smoking status:Some Days Types:Cigarettes -Smokeless tobacco:Never Vaping Use -Vaping Use:Some days Substance and Sexual Activity -Alcohol use:Yes Comment: fifth of whiskey a day -Drug use:Yes Types:Methamphetamines -Sexual activity:Yes Above social elements reviewed and verified by me. SURGICAL HISTORY History reviewed. No pertinent surgical history. CURRENT MEDICATIONS Current Facility-Administered Medications MedicationDoseRouteFrequ encyProviderLast RateLast Admin - vitamin - mgzgkci-amot-dqrtc acid ( PLUS CALCIUM) 27 mg iron- 1 mg tablet 1 tablet 1 tabletOralChung Trinh MD -thiamine (B-1) injection 100 mg 100 mgIntramuscularONNciholas Trinh MD Current Outpatient Medications MedicationSigDispenseRef ill -cetirizine (ZYRTEC) 10 mg tabletTake 1 tablet (10 mg total) by mouth daily. -fluticasone propionate (FLONASE) 50 mcg/actuation nasal spray1 spray into nostril(s) every morning. -hydrOXYzine pamoate (VISTARIL) 50 mg capsuleTake 1 capsule (50 mg total) by mouth 3 times a day as needed. -traZODone (DESYREL) 50 mg tabletTake 1 tablet (50 mg total) by mouth at bedtime. -venlafaxine (EFFEXOR) 100 mg tabletTake 225 mg by mouth once. ALLERGIES No Known Allergies PERTINENT PHYSICAL EXAM VITAL SIGNS: ED Triage Vitals [11/01/22 0208] BP115/80 Temp98.4 ?F (36.9 ?C) Pulse76 Resp16 RdN959 % Weight Marta Coma Scale Score BMI (Calculated) Constitutional: Well developed, Well nourished, in no acute distress, clinically intoxicated. HENT: Atraumatic, Normocephalic. Bilateral external ears normal, Nose normal, Oropharynx moist. Eyes: PERRL, EOMI, No discharge, Conjunctiva normal, No scleral icterus. Cardiovascular: Regular rate and rhythm. 2+ radial pulses. Thorax AND Lungs: No respiratory distress, normal respiratory effort. Clear to auscultation bilaterally. No wheezing, rhonchi, or crackles. Chest wall nontender. Skin: Warm, dry. No rash, erythema, ecchymosis. Abdomen: Soft, nontender, nondistended. Musculoskeletal: -Neck: Normal range of motion, trachea midline. -Extremities: No tenderness, edema. No major deformities noted. Moving all extremities appropriately. Neurologic: Patient is alert to person, place, and time. Cranial nerves are grossly intact. No focal deficits noted. Psychiatric: Patient is clinically intoxicated and it is difficult to assess his mood and affect, although, he says he is depressed because of his drinking. LAB RESULTS Normal labs (listed in bold) and specific abnormal labs include: BASIC METABOLIC PANEL - Abnormal; Notable for the following components: ResultValueRef RangeStatus Calcium8.4 (*)8.6 - 10.2 mg/dLFinal All other components within normal limits Narrative: KDIGO 2012 GFR Categories Stage Description eGFR (mL/min/1.73m2) G1 Normal or high >=90 G2 Mildly decreased 60-89 G3a Mildly to moderately decreased 45-59 G3b Moderately to severely decreased 30-44 G4 Severely decreased 15-29 G5 Kidney Failure <15 SERUM TOX SCREEN - Abnormal; Notable for the following components: Acetaminophen Level<10 (*)10 - 30 ug/mLFinal [id number] (*)<10 mg/dLFinal Salicylate<2.5 (*)3.0 - 20.0 mg/dLFinal All other components within normal limits Narrative: Salicylate Therapeutic Range: 20-25 mg/dL Acetaminophen Therapeutic Range:10.00-30.00 ug/mL URINE CULTURE, CONDITI (more content not included)... Normal [facility] ED TRIAGEon 11-01-2022 [facility] Ed Triage Note Normal [facility] SERUM TOX SCREENon ACETAMINOPHEN LEVEL Normal [facility] Comment on above: Order Comment: Relea se to patient->Immediate Performed By: #### L [id number], [id number] #### [facility] [address] [place] [address] ACETAMINOPHEN LEVEL <10 Normal 10-30 [facility] Comment on above: Order Comment: Relea se to patient->Immediate Performed By: #### L [id number], [id number] #### [facility] [address] [place] [address] ETHANOL Normal [facility] Comment on above: Order Comment: Relea se to patient->Immediate Performed By: #### L [id number], [id number] #### [facility] [address] [place] [address] Ethanol [Mass/Vol] 298 mg/dL Normal <10 [facility] Comment on above: Order Comment: Relea se to patient->Immediate Performed By: #### L [id number], [id number] #### [facility] [address] [place] [address] SALICYLATE ([facility]/IRS) Normal [facility] Comment on above: Order Comment: Relea se to patient->Immediate Performed By: #### L [id number], [id number] #### [facility] [address] [place] [address] SALICYLATE ([facility]/IRS) <2.5 Normal 3.0-20.0 [facility] Comment on above: Order Comment: Relea se to patient->Immediate Performed By: #### L [id number], [id number] #### [facility] [address] [place] [address] URINE CULTURE, CONDITIONALon 11-01-2022 BILIRUBIN, UA Normal [facility] Comment on above: Order Comment: Cultu re of the urine specimen was not completed as criteria were not met.Release to patient->Immediate Performed By: #### L [id number], [id number] ####[facility] [id number] [place] [address] BILIRUBIN, UA Negative Normal Negative [facility] Comment on above: Order Comment: Cultu re of the urine specimen was not completed as criteria were not met.Release to patient->Immediate Performed By: #### L [id number], [id number] ####[facility] [id number] [place] [address] BLOOD, UA Normal [facility] Comment on above: Order Comment: Cultu re of the urine specimen was not completed as criteria were not met.Release to patient->Immediate Performed By: #### L [id number], [id number] ####[facility] [id number] [place] [address] BLOOD, UA Negative Normal Negative [facility] Comment on above: Order Comment: Cultu re of the urine specimen was not completed as criteria were not met.Release to patient->Immediate Performed By: #### L [id number], [id number] ####[facility] [id number] [place] [address] Clarity (U) Normal [facility] Comment on above: Order Comment: Cultu re of the urine specimen was not completed as criteria were not met.Release to patient->Immediate Performed By: #### L [id number], [id number] ####[facility] [id number] [place] [address] Clarity (U) Clear Normal Clear [facility] Comment on above: Order Comment: Cultu re of the urine specimen was not completed as criteria were not met.Release to patient->Immediate Performed By: #### L [id number], [id number] ####[facility] [id number] [place] [address] Color (U) Normal [facility] Comment on above: Order Comment: Cultu re of the urine specimen was not completed as criteria were not met.Release to patient->Immediate Performed By: #### L [id number], [id number] ####[facility] [id number] [place] [address] Color (U) Colorless Normal Yellow [facility] Comment on above: Order Comment: Cultu re of the urine specimen was not completed as criteria were not met.Release to patient->Immediate Performed By: #### L [id number], [id number] ####[facility] [id number] [place] [address] GLUCOSE, UA Normal [facility] Comment on above: Order Comment: Cultu re of the urine specimen was not completed as criteria were not met.Release to patient->Immediate Performed By: #### L [id number], [id number] ####[facility] [id number] [place] [address] GLUCOSE, UA Normal Normal Normal [facility] Comment on above: Order Comment: Cultu re of the urine specimen was not completed as criteria were not met.Release to patient->Immediate Performed By: #### L [id number], [id number] ####[facility] [id number] [place] [address] KETONES, UA Normal [facility] Comment on above: Order Comment: Cultu re of the urine specimen was not completed as criteria were not met.Release to patient->Immediate Performed By: #### L [id number], [id number] ####[facility] [id number] [place] [address] KETONES, UA Negative Normal Negative [facility] Comment on above: Order Comment: Cultu re of the urine specimen was not completed as criteria were not met.Release to patient->Immediate Performed By: #### L [id number], [id number] ####[facility] [id number] [place] [address] LEUKOCYTES, UA Normal [facility] Comment on above: Order Comment: Cultu re of the urine specimen was not completed as criteria were not met.Release to patient->Immediate Performed By: #### L [id number], [id number] ####[facility] [id number] [place] [address] LEUKOCYTES, UA Negative Normal Negative [facility] Comment on above: Order Comment: Cultu re of the urine specimen was not completed as criteria were not met.Release to patient->Immediate Performed By: #### L [id number], [id number] ####[facility] [id number] [place] [address] Nitrite Ql (U) Normal [facility] Comment on above: Order Comment: Cultu re of the urine specimen was not completed as criteria were not met.Release to patient->Immediate Performed By: #### L [id number], [id number] ####[facility] [id number] [place] [address] Nitrite Ql (U) Negative Normal Negative [facility] Comment on above: Order Comment: Cultu re of the urine specimen was not completed as criteria were not met.Release to patient->Immediate Performed By: #### L [id number], [id number] ####[facility] [id number] [place] [address] pH (U) 6.0 [pH] Normal 5.0-8.0 [facility] Comment on above: Order Comment: Cultu re of the urine specimen was not completed as criteria were not met.Release to patient->Immediate Performed By: #### L [id number], [id number] ####[facility] [id number] [place] [address] PH, UA Normal [facility] Comment on above: Order Comment: Cultu re of the urine specimen was not completed as criteria were not met.Release to patient->Immediate Performed By: #### L [id number], [id number] ####[facility] [id number] [place] [address] PROTEIN, UA Normal [facility] Comment on above: Order Comment: Cultu re of the urine specimen was not completed as criteria were not met.Release to patient->Immediate Performed By: #### L [id number], [id number] ####[facility] [id number] [place] [address] PROTEIN, UA Negative Normal Negative [facility] Comment on above: Order Comment: Cultu re of the urine specimen was not completed as criteria were not met.Release to patient->Immediate Performed By: #### L [id number], [id number] ####[facility] [id number] [place] [address] SPECIFIC GRAVITY, UA Normal [facility] Comment on above: Order Comment: Cultu re of the urine specimen was not completed as criteria were not met.Release to patient->Immediate Performed By: #### L [id number], [id number] ####[facility] [id number] [place] [address] SPECIFIC GRAVITY, UA 1.008 Normal 1.001-1.035 [facility] Comment on above: Order Comment: Cultu re of the urine specimen was not completed as criteria were not met.Release to patient->Immediate Performed By: #### L [id number], [id number] ####[facility] [id number] [place] [address] UROBILINOGEN, UA Normal [facility] Comment on above: Order Comment: Cultu re of the urine specimen was not completed as criteria were not met.Release to patient->Immediate Performed By: #### L [id number], [id number] ####[facility] [id number] [place] [address] [place] [address] UROBILINOGEN, UA Normal Normal Normal [facility] Comment on above: Order Comment: Cultu re of the urine specimen was not completed as criteria were not met.Release to patient->Immediate Performed By: #### L [id number], [id number] ####[facility] [id number] [place] [address] URINE CULTURE, CONDITIONAL, NOT PERFORMEDon 11-01-2022 URINE CULTURE, CONDITIONAL, NOT PERFORMED Normal [facility] Comment on above: Order Comment: Relea se to patient->Immediate Performed By: #### L [id number], [id number] ####[facility] [id number] [place] [address] URINE CULTURE, CONDITIONAL, NOT PERFORMED URINE CULTURE NOT PERFORMED Conditions not met for Urine Culture Normal [facility] Comment on above: Order Comment: Relea se to patient->Immediate Performed By: #### L [id number], [id number] ####[facility] [id number] [place] [address] URINE DRUG SCREENon 11-02-19 23 AMPHETAMINE METAB Normal [facility] Comment on above: Order Comment: Relea se to patient->Immediate Performed By: #### L [id number], [id number] #### [facility] [address] [place] [address] AMPHETAMINE METAB Negative Normal Negative [facility] Comment on above: Order Comment: Relea se to patient->Immediate Performed By: #### L [id number], [id number] #### [facility] [address] [place] [address] BARBITURATES Normal [facility] Comment on above: Order Comment: Relea se to patient->Immediate Performed By: #### L [id number], [id number] #### [facility] [address] [place] [address] BARBITURATES Negative Normal Negative [facility] Comment on above: Order Comment: Relea se to patient->Immediate Performed By: #### L [id number], [id number] #### [facility] [address] [place] [address] BENZODIAZEPINES Normal [facility] Comment on above: Order Comment: Relea se to patient->Immediate Performed By: #### L [id number], [id number] #### [facility] [address] [place] [address] BENZODIAZEPINES Negative Normal Negative [facility] Comment on above: Order Comment: Relea se to patient->Immediate Performed By: #### L [id number], [id number] #### [facility] [address] [place] [address] CANNABINOID METAB Normal [facility] Comment on above: Order Comment: Relea se to patient->Immediate Performed By: #### L [id number], [id number] #### [facility] [address] [place] [address] CANNABINOID METAB Negative Normal Negative [facility] Comment on above: Order Comment: Relea se to patient->Immediate Performed By: #### L [id number], [id number] #### [facility] [address] [place] [address] COCAINE Normal [facility] Comment on above: Order Comment: Relea se to patient->Immediate Performed By: #### L [id number], [id number] #### [facility] [address] [place] [address] COCAINE Negative Normal Negative [facility] Comment on above: Order Comment: Relea se to patient->Immediate Performed By: #### L [id number], [id number] #### [facility] [address] [place] [address] OPIATE METAB Normal [facility] Comment on above: Order Comment: Relea se to patient->Immediate Performed By: #### L [id number], [id number] #### [facility] [address] [place] [address] OPIATE METAB Negative Normal Negative [facility] Comment on above: Order Comment: Relea se to patient->Immediate Performed By: #### L [id number], [id number] #### [facility] [address] [place] [address] ED NOTESon 10-31-2022 [facility] Ed Note Normal [facility] Ed Note ED Note: Last filed note HNO ID: [id number] Author: Jennie Kinsey RN Service: Emergency Medicine Author Type: Registered Nurse Filed: 10/31/22 0719 Note Text: Bedside report given to Patricia TAY Normal [facility] ED PROVIDER NOTESon 11-01-19 [facility] Ed Provider Note Normal [facility] Ed Provider Note Normal [facility] ED TRIAGEon 10-31-2022 [facility] Ed Triage Note Normal [facility] ETHANOLon 10-31-2022 COMMENT For Medical Purposes only. Abnormal [facility] Comment on above: Performed By: #### L [id number] ####[place] [phone] ETHANOL, SERUM/PLASMA 188 mg/dL High <10 [place] Comment on above: Performed By: #### L AB175 ####[place] [phone] Ethanol [Mass/Vol] 188 mg/dL High NINF - 10 mg/dL [facility] Interpretation and review of laboratory results Abnormal [facility] For Medical Purposes only. [facility] PROGRESS NOTESon 10-31-2022 Cosmetologist Authentication Interface Message Text Telephone Follow Up Did the patient answer the phone? No This Sun is not able to complete a follow up call due to no number being listed in the chart. Normal [facility] BASIC METABOLIC PANELon 10-10 Anion gap [Moles/Vol] 16 mmol/L High 5-15 [place] Comment on above: Performed By: #### L [id number] ####[place] [phone] Calcium [Mass/Vol] 8.8 mg/dL Normal 8.5-10.5 [facility] Comment on above: Performed By: #### L [id number] ####[place] [phone] Chloride [Moles/Vol] 104 mmol/L Normal 96-110 [facility] Comment on above: Performed By: #### L AB064 ####[place] [phone] CO2 [Moles/Vol] 19 mmol/L Normal 19-32 [facility] Comment on above: Performed By: #### L [id number] ####[place] [phone] Creatinine [Mass/Vol] 1.0 mg/dL Normal 0.5-1.4 [place] Comment on above: Performed By: #### L [id number] ####[place] [phone] ESTIMATED GFR 99 mL/min/1.73m*2 Normal >=60 [facility] Comment on above: Performed By: #### L [id number] ####[place] [phone] Glucose [Mass/Vol] 101 mg/dL High 70-99 [facility] Comment on above: Performed By: #### L [id number] ####[place] [phone] Potassium [Moles/Vol] 3.8 mmol/L Normal 3.4-5.3 [place] Comment on above: Result Comment: Hemo lysis present. Result may be elevated. Performed By: #### L [id number] ####[place] [phone] Sodium [Moles/Vol] 139 mmol/L Normal 135-148 [facility] Comment on above: Performed By: #### L [id number] ####[place] [phone] Urea nitrogen [Mass/Vol] 19 mg/dL Normal 3-29 [facility] Comment on above: Performed By: #### L [id number] ####[place] [phone] Urea nitrogen/Creatinine [Mass ratio] 19 mg/mg Normal 7-25 [facility] Comment on above: Performed By: #### L [id number] ####[place] [phone] Anion gap [Moles/Vol] 16 mmol/L High 5 - 15 [facility] Calcium [Mass/Vol] 8.8 mg/dL 8.5 - 10. 5 mg/dL [facility] Chloride [Moles/Vol] 104 mmol/L [facility] CO2 [Moles/Vol] 19 mmol/L [facility] Creatinine [Mass/Vol] 1.0 mg/dL 0.5 - 1.4 mg/dL [facility] GFR/1.73 sq M.predicted MDRD (S/P/Bld) [Vol rate/Area] 99 mL/min/{1.73_m2} - PINF [facility] Glucose [Mass/Vol] 101 mg/dL High 70 - 99 mg/dL [facility] Interpretation and review of laboratory results Abnormal [facility] Potassium [Moles/Vol] 3.8 mmol/L Pre [facility] Comment on above: Hemolysis present. R esult may be elevated. Sodium [Moles/Vol] 139 mmol/L [facility] Urea nitrogen [Mass/Vol] 19 mg/dL 3 - 29 mg/dL [facility] Urea nitrogen/Creatinine [Mass ratio] 19 mg/mg 7 - 25 [facility] ANION GAP Normal [facility] Comment on above: Order Comment: Cultu re of the urine specimen was not completed as criteria were not met. Release to patient->Immediate Performed By: #### L [id number], [id number] #### [facility] [address] [place] [address] Anion gap [Moles/Vol] 10 mmol/L Normal 7-16 [facility] Comment on above: Order Comment: Cultu re of the urine specimen was not completed as criteria were not met. Release to patient->Immediate Performed By: #### L [id number], [id number] #### [facility] [address] [place] [address] BLOOD UREA NITROGEN Normal [facility] Comment on above: Order Comment: Cultu re of the urine specimen was not completed as criteria were not met. Release to patient->Immediate Performed By: #### L [id number], [id number] #### [facility] [address] [place] [address] CALCIUM Normal [facility] Comment on above: Order Comment: Cultu re of the urine specimen was not completed as criteria were not met. Release to patient->Immediate Performed By: #### L [id number], [id number] #### [facility] [address] [place] [address] Calcium [Mass/Vol] 9.0 mg/dL Normal 8.6-10.2 [facility] Comment on above: Order Comment: Cultu re of the urine specimen was not completed as criteria were not met. Release to patient->Immediate Performed By: #### L [id number], [id number] #### [facility] [address] [place] [address] CARBON DIOXIDE Normal [facility] Comment on above: Order Comment: Cultu re of the urine specimen was not completed as criteria were not met. Release to patient->Immediate Performed By: #### L [id number], [id number] #### [facility] [address] [place] [address] CHLORIDE Normal [facility] Comment on above: Order Comment: Cultu re of the urine specimen was not completed as criteria were not met. Release to patient->Immediate Performed By: #### L [id number], [id number] #### [facility] [address] [place] [address] Chloride [Moles/Vol] 107 mmol/L Normal 98-107 [facility] Comment on above: Order Comment: Cultu re of the urine specimen was not completed as criteria were not met. Release to patient->Immediate Performed By: #### L [id number], [id number] #### [facility] [address] [place] [address] CO2 [Moles/Vol] 21 mmol/L Normal 21-31 [facility] Comment on above: Order Comment: Cultu re of the urine specimen was not completed as criteria were not met. Release to patient->Immediate Performed By: #### L [id number], [id number] #### [facility] [address] [place] [address] CREATININE Normal [facility] Comment on above: Order Comment: Cultu re of the urine specimen was not completed as criteria were not met. Release to patient->Immediate Performed By: #### L [id number], [id number] #### [facility] [address] [place] [address] Creatinine [Mass/Vol] 0.93 mg/dL Normal 0.7-1.3 [facility] Comment on above: Order Comment: Cultu re of the urine specimen was not completed as criteria were not met. Release to patient->Immediate Performed By: #### L [id number], [id number] #### [facility] [address] [place] [address] GFR MALE Normal [facility] Comment on above: Order Comment: Cultu re of the urine specimen was not completed as criteria were not met. Release to patient->Immediate Result Comment: Repo rted eGFR is based on the CKD-EPI 2020 equation that does not use a race coefficient. Performed By: #### L [id number], [id number] #### [facility] [address] [place] [address] GFR MALE >90 Normal >90 [facility] Comment on above: Order Comment: Cultu re of the urine specimen was not completed as criteria were not met. Release to patient->Immediate Performed By: #### L [id number], [id number] #### [facility] [address] [place] [address] GLUCOSE Normal [facility] Comment on above: Order Comment: Cultu re of the urine specimen was not completed as criteria were not met. Release to patient->Immediate Performed By: #### L [id number], [id number] #### [facility] [address] [place] [address] Glucose [Mass/Vol] 89 mg/dL Normal 74-109 [facility] Comment on above: Order Comment: Cultu re of the urine specimen was not completed as criteria were not met. Release to patient->Immediate Performed By: #### L [id number], [id number] #### [facility] [address] [place] [address] POTASSIUM Normal [facility] Comment on above: Order Comment: Cultu re of the urine specimen was not completed as criteria were not met. Release to patient->Immediate Performed By: #### L [id number], [id number] #### [facility] [address] [place] [address] Potassium [Moles/Vol] 3.6 mmol/L Normal 3.5-5.1 [facility] Comment on above: Order Comment: Cultu re of the urine specimen was not completed as criteria were not met. Release to patient->Immediate Performed By: #### L [id number], [id number] #### [facility] [address] [place] [address] SODIUM Normal [facility] Comment on above: Order Comment: Cultu re of the urine specimen was not completed as criteria were not met. Release to patient->Immediate Performed By: #### L [id number], [id number] #### [facility] [address] [place] [address] Sodium [Moles/Vol] 138 mmol/L Normal 136-145 [facility] Comment on above: Order Comment: Cultu re of the urine specimen was not completed as criteria were not met. Release to patient->Immediate Performed By: #### L [id number], [id number] #### [facility] [address] [place] [address] Urea nitrogen [Mass/Vol] 16 mg/dL Normal 7-25 [facility] Comment on above: Order Comment: Cultu re of the urine specimen was not completed as criteria were not met. Release to patient->Immediate Performed By: #### L [id number], [id number] #### [facility] [address] [place] [address] CBC W/DIFFon 10-30-2022 BASOPHILS ABS AUTO Normal [facility] Comment on above: Order Comment: Relea se to patient->Immediate Performed By: #### L [id number], [id number] #### [facility] [address] [place] [address] BASOPHILS ABS AUTO 0.1 K/uL Normal 0.0-0.1 [facility] Comment on above: Order Comment: Relea se to patient->Immediate Performed By: #### L [id number], [id number] #### [facility] [address] [place] [address] BASOPHILS RELATIVE AUTO Normal [facility] Comment on above: Order Comment: Relea se to patient->Immediate Performed By: #### L [id number], [id number] #### [facility] [address] [place] [address] Basophils/100 WBC (Bld) 0.8 % Normal [facility] Comment on above: Order Comment: Relea se to patient->Immediate Performed By: #### L [id number], [id number] #### [facility] [address] [place] [address] EOSINOPHIL ABS AUTO Normal [facility] Comment on above: Order Comment: Relea se to patient->Immediate Performed By: #### L [id number], [id number] #### [facility] [address] [place] [address] Eosinophils (Bld) [#/Vol] 0.4 10*3/uL Normal 0.0-0.4 [facility] Comment on above: Order Comment: Relea se to patient->Immediate Performed By: #### L [id number], [id number] #### [facility] [address] [place] [address] EOSINOPHILS RELATIVE AUTO Normal [facility] Comment on above: Order Comment: Relea se to patient->Immediate Performed By: #### L [id number], [id number] #### [facility] [address] [place] [address] Eosinophils/100 WBC (Bld) 5.0 % Normal [facility] Comment on above: Order Comment: Relea se to patient->Immediate Performed By: #### L [id number], [id number] #### [facility] [address] [place] [address] Erythrocyte distribution width (RBC) [Ratio] 13.5 % Normal 11.7-15.2 [facility] Comment on above: Order Comment: Relea se to patient->Immediate Performed By: #### L [id number], [id number] #### [facility] [address] [place] [address] Hematocrit (Bld) [Volume fraction] 46.3 % Normal 39.0-51.5 [facility] Comment on above: Order Comment: Relea se to patient->Immediate Performed By: #### L [id number], [id number] #### [facility] [address] [place] [address] HEMATOCRIT BLOOD Normal [facility] Comment on above: Order Comment: Relea se to patient->Immediate Performed By: #### L [id number], [id number] #### [facility] [address] [place] [address] HEMOGLOBIN Normal [facility] Comment on above: Order Comment: Relea se to patient->Immediate Performed By: #### L [id number], [id number] #### [facility] [address] [place] [address] Hemoglobin (Bld) [Mass/Vol] 15.9 g/dL Normal 13.1-17.6 [facility] Comment on above: Order Comment: Relea se to patient->Immediate Performed By: #### L [id number], [id number] #### [facility] [address] [place] [address] LYMPHOCYTE ABS AUTO Normal [facility] Comment on above: Order Comment: Relea se to patient->Immediate Performed By: #### L [id number], [id number] #### [facility] [address] [place] [address] Lymphocytes (Bld) [#/Vol] 2.6 10*3/uL Normal 0.8-3.6 [facility] Comment on above: Order Comment: Relea se to patient->Immediate Performed By: #### L [id number], [id number] #### [facility] [address] [place] [address] LYMPHOCYTES RELATIVE AUTO Normal [facility] Comment on above: Order Comment: Relea se to patient->Immediate Performed By: #### L [id number], [id number] #### [facility] [address] [place] [address] Lymphocytes/100 WBC (Bld) 32.4 % Normal [facility] Comment on above: Order Comment: Relea se to patient->Immediate Performed By: #### L [id number], [id number] #### [facility] [address] [place] [address] MCH Normal [facility] Comment on above: Order Comment: Relea se to patient->Immediate Performed By: #### L [id number], [id number] #### [facility] [address] [place] [address] MCH (RBC) [Entitic mass] 29.0 pg Normal 28.4-33.4 [facility] Comment on above: Order Comment: Relea se to patient->Immediate Performed By: #### L [id number], [id number] #### [facility] [address] [place] [address] MCHC Normal [facility] Comment on above: Order Comment: Relea se to patient->Immediate Performed By: #### L [id number], [id number] #### [facility] [address] [place] [address] MCHC (RBC) [Mass/Vol] 34.4 g/dL Normal 31.1-37.0 [facility] Comment on above: Order Comment: Relea se to patient->Immediate Performed By: #### L [id number], [id number] #### [facility] [address] [place] [address] MCV Normal [facility] Comment on above: Order Comment: Relea se to patient->Immediate Performed By: #### L [id number], [id number] #### [facility] [address] [place] [address] MCV (RBC) [Entitic vol] 84.4 fL Normal 85.0-99.0 [facility] Comment on above: Order Comment: Relea se to patient->Immediate Performed By: #### L [id number], [id number] #### [facility] [address] [place] [address] MONOCYTE ABS AUTO Normal [facility] Comment on above: Order Comment: Relea se to patient->Immediate Performed By: #### L [id number], [id number] #### [facility] [address] [place] [address] Monocytes (Bld) [#/Vol] 0.7 10*3/uL Normal 0.3-0.9 [facility] Comment on above: Order Comment: Relea se to patient->Immediate Performed By: #### L [id number], [id number] #### [facility] [address] [place] [address] MONOCYTES RELATIVE AUTO Normal [facility] Comment on above: Order Comment: Relea se to patient->Immediate Performed By: #### L [id number], [id number] #### [facility] [address] [place] [address] Monocytes/100 WBC (Bld) 9.1 % Normal [facility] Comment on above: Order Comment: Relea se to patient->Immediate Performed By: #### L [id number], [id number] #### [facility] [address] [place] [address] NEUTROPHIL ABS AUTO Normal [facility] Comment on above: Order Comment: Relea se to patient->Immediate Performed By: #### L [id number], [id number] #### [facility] [address] [place] [address] NEUTROPHIL ABS AUTO 4.2 K/uL Normal 2.0-7.3 [facility] Comment on above: Order Comment: Relea se to patient->Immediate Performed By: #### L [id number], [id number] #### [facility] [address] [place] [address] NEUTROPHILS RELATIVE AUTO Normal [facility] Comment on above: Order Comment: Relea se to patient->Immediate Performed By: #### L [id number], [id number] #### [facility] [address] [place] [address] Neutrophils/100 WBC (Bld) 52.7 % Normal [facility] Comment on above: Order Comment: Relea se to patient->Immediate Performed By: #### L [id number], [id number] #### [facility] [address] [place] [address] PLATELET COUNT Normal [facility] Comment on above: Order Comment: Relea se to patient->Immediate Performed By: #### L [id number], [id number] #### [facility] [address] [place] [address] Platelets (Bld) [#/Vol] 363 10*3/uL Normal 154-393 [facility] Comment on above: Order Comment: Relea se to patient->Immediate Performed By: #### L [id number], [id number] #### [facility] [address] [place] [address] RBC (Bld) [#/Vol] 5.48 10*6/uL Normal 4.30-5.86 [facility] Comment on above: Order Comment: Relea se to patient->Immediate Performed By: #### L [id number], [id number] #### [facility] [address] [place] [address] RDW Normal [facility] Comment on above: Order Comment: Relea se to patient->Immediate Performed By: #### L [id number], [id number] #### [facility] [address] [place] [address] RED BLOOD CELL COUNT Normal [facility] Comment on above: Order Comment: Relea se to patient->Immediate Performed By: #### L [id number], [id number] #### [facility] [address] [place] [address] WBC (Bld) [#/Vol] 7.9 10*3/uL Normal 4.0-10.5 [facility] Comment on above: Order Comment: Relea se to patient->Immediate Performed By: #### L [id number], [id number] #### [facility] [address] [place] [address] WHITE BLOOD CELL COUNT Normal [facility] Comment on above: Order Comment: Relea se to patient->Immediate Performed By: #### L [id number], [id number] #### [facility] [address] [place] [address] COMPLETE BLOOD COUNT WITH DI FFERENTIALon 10-30-2022 BASOPHILS ABSOLUTE COUNT (10*3/UL) BY AUTOMATED COUNT 0.0 K/uL Normal 0.0-0.3 [facility] Comment on above: Performed By: #### L [id number] ####[place] [phone] BASOPHILS RELATIVE PERCENT BY AUTOMATED COUNT 0.4 % Normal 0.0-2.0 [facility] Comment on above: Performed By: #### L [id number] ####[place] [phone] Eosinophils (Bld) [#/Vol] 0.2 10*3/uL Normal 0.0-0.5 [facility] Comment on above: Performed By: #### L [id number] ####[place] [phone] EOSINOPHILS RELATIVE PERCENT BY AUTOMATED COUNT 2.1 % Normal 0.0-5.0 [facility] Comment on above: Performed By: #### L [id number] ####[place] [phone] Erythrocyte distribution width (RBC) [Ratio] 12.6 % Normal <=15.0 [facility] Comment on above: Performed By: #### L [id number] ####[place] [phone] Hematocrit (Bld) [Volume fraction] 41.7 % Normal 37.5-51.0 [facility] Comment on above: Performed By: #### L [id number] ####[place] [phone] Hemoglobin (Bld) [Mass/Vol] 15.2 g/dL Normal 13.0-17.7 [facility] Comment on above: Performed By: #### L [id number] ####[place] [phone] Immature granulocytes (Bld) [#/Vol] 0.0 10*3/uL Normal 0.0-0.1 [facility] Comment on above: Performed By: #### L [id number] ####[place] [phone] Immature granulocytes/100 WBC (Bld) 0.2 % Normal <1.0 [facility] Comment on above: Performed By: #### L [id number] ####[place] [phone] LYMPHOCYTES ABSOLUTE COUNT (10*3/UL) BY AUTOMATED COUNT 3.5 K/uL Normal 0.9-4.1 [facility] Comment on above: Performed By: #### L [id number] ####[place] [phone] LYMPHOCYTES RELATIVE PERCENT BY AUTOMATED COUNT 30.3 % Normal 14.0-51.0 [facility] Comment on above: Performed By: #### L [id number] ####[place] [phone] MCH (RBC) [Entitic mass] 29.6 pg Normal 26.0-34.0 [facility] Comment on above: Performed By: #### L [id number] ####[place] [phone] MCHC (RBC) [Mass/Vol] 36.5 g/dL High 30.7-35.5 [facility] Comment on above: Performed By: #### L [id number] ####[place] [phone] MCV (RBC) [Entitic vol] 81.3 fL Normal 80.0-100.0 [facility] Comment on above: Performed By: #### L [id number] ####[place] [phone] MEAN PLATELET VOLUME (FL) BY AUTOMATED COUNT 8.2 fL Normal 7.2-11.7 [facility] Comment on above: Performed By: #### L [id number] ####[place] [phone] MONOCYTES ABSOLUTE COUNT (10*3/UL) BY AUTOMATED COUNT 1.0 K/uL Normal 0.2-1.0 [facility] Comment on above: Performed By: #### L [id number] ####[place] [phone] MONOCYTES RELATIVE PERCENT BY AUTOMATED COUNT 9.0 % Normal 4.0-12.0 [facility] Comment on above: Performed By: #### L [id number] ####[place] [phone] NEUTROPHILS ABSOLUTE COUNT (10*3/UL) BY AUTOMATED COUNT 6.6 K/uL Normal 1.8-7.5 [facility] Comment on above: Performed By: #### L [id number] ####[place] [phone] NEUTROPHILS RELATIVE PERCENT BY AUTOMATED COUNT 58.0 % Normal 42.0-80.0 [facility] Comment on above: Performed By: #### L [id number] ####[place] [phone] NRBC (PER 100 WBCS) BY AUTOMATED COUNT 0 /100 WBCs Normal <=0 [facility] Comment on above: Performed By: #### L [id number] ####[place] [phone] PLATELETS (10*3/UL) BY AUTOMATED COUNT 365 K/uL Normal 140-400 [facility] Comment on above: Performed By: #### L [id number] ####[place] [phone] RBC (Bld) [#/Vol] 5.13 10*6/uL Normal 4.14-5.80 [facility] Comment on above: Performed By: #### L [id number] ####[place] [phone] TO SCAN RESULT USE SCAN ICON Normal [facility] Comment on above: Performed By: #### L [id number] ####[place] [phone] WBC (Bld) [#/Vol] 11.4 10*3/uL High 3.5-10.9 [facility] Comment on above: Performed By: #### L [id number] ####[place] [phone] Basophils (Bld) [#/Vol] 0.0 10*3/uL 0.0 - 0.3 K/uL [facility] Basophils/100 WBC (Bld) 0.4 % 0.0 - 2.0 % [facility] Eosinophils (Bld) [#/Vol] 0.2 10*3/uL 0.0 - 0.5 K/uL [facility] Eosinophils/100 WBC (Bld) 2.1 % 0.0 - 5.0 % [facility] Erythrocyte distribution width (RBC) [Ratio] 12.6 % NINF - 15.0 % [facility] Hematocrit (Bld) [Volume fraction] 41.7 % 37.5 - 51.0 % [facility] Hemoglobin (Bld) [Mass/Vol] 15.2 g/dL 13.0 - 17.7 g/dL [facility] Immature granulocytes (Bld) [#/Vol] 0.0 10*3/uL 0.0 - 0.1 K/uL [facility] Immature granulocytes/100 WBC (Bld) 0.2 % NINF - 1.0 % [facility] Interpretation and review of laboratory results Abnormal [facility] Lymphocytes (Bld) [#/Vol] 3.5 10*3/uL 0.9 - 4.1 K/uL [facility] Lymphocytes/100 WBC (Bld) 30.3 % 14.0 - 51.0 % [facility] MCH (RBC) [Entitic mass] 29.6 pg 26.0 - 34.0 pg [facility] MCHC (RBC) [Mass/Vol] 36.5 g/dL High 30.7 - 35.5 g/dL [facility] MCV (RBC) [Entitic vol] 81.3 fL 80.0 - 100.0 fL [facility] Monocytes (Bld) [#/Vol] 1.0 10*3/uL 0.2 - 1.0 K/uL [facility] Monocytes/100 WBC (Bld) 9.0 % 4.0 - 12.0 % [facility] Neutrophils (Bld) [#/Vol] 6.6 10*3/uL 1.8 - 7.5 K/uL [facility] Neutrophils/100 WBC (Bld) 58.0 % 42.0 - 80.0 % [facility] Nucleated cells (Bld) [#/Vol] 0 NINF [facility] Platelet mean volume (Bld) [Entitic vol] 8.2 fL 7.2 - 11.7 fL [facility] Platelets (Bld) [#/Vol] 365 10*3/uL 140 - 400 K/uL [facility] RBC (Bld) [#/Vol] 5.13 10*6/uL [facility] Scan Result [facility] WBC corrected for nucl RBC Auto (Bld) [#/Vol] 11.4 K/uL High 3.5 - 10.9 K/uL [facility] Consultson 10-30-2022 Consults Encounter Department : [facility] EMERGENCY Consults by NASREEN Llanos NCC at 10/30/2022 5:56 AM Author: NASREEN Llanos NCCService: -Author Type: CRISTOBAL Specialist Filed: 10/30/2022 6:34 AMDate of Service: 10/30/2022 5:56 AMStatus: Addendum Parts Data Writer: NASREEN Llanos NCC (CRISTOBAL Specialist) Related Notes: Original Note by NASREEN Llanos NCC (CRISTOBAL Specialist) filed at 10/30/2022 6:34 AM Consult Orders 1. Behavioral Health Assessment Consult [[id number]] ordered by Dolores Vogt DO at 10/30/22 0534 BEHAVIORAL HEALTH ASSESSMENT TEAM CONSULT DATE: 10/30/22 Consult: Community Resources Referral - Substance Use disorder (JIMMY) Reason for consult: rehab/sober living placement Telehealth: no Identifying Information: 37 y.o. male seen in the Emergency Room Narrative: Patient is a 37 yo S/C/M who presented to [facility] ED at [address] [facility] for alcohol problem. Patient was seen at this ED on 10/16/22 for same reason. Patient is looking for rehab or sober living placement. He did not follow up with resources that were discussed and given to him at his 10/16/22 ED visit. When asked why, he evaded question stating I know of at least 5 places off the top of my head you can send me to . He stated he expected this CRISTOBAL worker to find him a place to go because he is demanding help. Patient states he is well aware of all the JIMMY programs and can give this CRISTOBAL worker a list to use. When patient was asked again why he is not following up with these places, he continuously evades the question. Patient states he continues to be homeless and staying on the streets. He evaded questions about where he has been staying the past few nights and showering. Patient is well groomed and clean. Explained to patient he needed to follow up with resources as they need to complete an assessment to determine level of care he needs and they only do these assessments during the day. Also, discussed contacting Peer Support for help in getting placed. Patient stated to this CRISTOBAL worker there's something called a phone so pick it up and call them . Attempted to explain to patient this was not possible due to the current hour. Patient was rude and disrespectful. He became very irritated at not being placed and became verbally abusive to this CRISTOBAL worker cursing at and calling this CRISTOBAL worker names. He stated Fuck you, you arnulfo hinton, get out of my room now . Per chart: Patient has been in multiple JIMMY programs over the years but has never completed any of the programs due to either leaving AMA or being kicked out for inappropriate behavior. He has stated in the past this is due to his lack of commitment. He has an extensive legal history including theft, disorderly conduct and a variety of other charges. Patient has a tendency to be demanding and becomes very irritated and verbally abusive when he doesn't get what he wants. Mental Status: Orientation: oriented x 4 Mood: angry Affect:appropriate Speech: clear and normal Current JIMMY Treatment: no -Provider: hx of multiple facility admissions for detox, rehab, and sober living Alcohol/Drug Screening: History of JIMMY: Yes Substance(s) of choice: Alcohol, Methamphetamine BAL: 138 UDS: not ordered Toxicology Completed: No If yes, does it correspond with patient report: Alcohol: Date of last use: 10/30/22 Method of use: oral Frequency in last 30 days: 1/5th of whiskey/Vodka daily How long have you been using?: 17 years When have you attempted to stop using alcohol? : (summer 2021 for 4 months) Did you experience any of the following symptoms?: Fatigue, Anxiety In the past, how have you handled withdrawal symptoms?: Detox facility, Other (comments) (rehab/sober living; multiple facilities) Methamphetamines: Date of last use: (VIBHA) Method of use: VIBHA (per chart: inject) Frequency in last 30 days: VIBHA (2-3x weekly) How long have you been using?: VIBHA When have you attempted to stop using? : (per chart: 41 days between June/July 2022) Did you experience any of the following symptoms?: (VIBHA) In the past, how have you handled withdrawal symptoms?: (VIBHA) Detox: Have you ever been admitted to a detoxification facility for withdrawal from alcohol or other drugs?: Yes (multiple facilities including [facility], [facility], [facility], [place], [facility] in [place] as well as many other facilities) Have you noticed it takes more of a given substance to get the same results as before?: (VIBHA) What substance(s) have you used to relieve or avoid withdrawals?: VIBHA If you have experienced cravings to use alcohol or drugs, what substances and what were the thoughts or events that caused the cravings?: IVBHA If your mental health or alcohol/drug symptoms have caused problems during your employment, please describe:: VIBHA If any of your medical conditions have been impacted by your use of alcohol or other drugs, please descr (more content not included)... Normal [facility] ED NOTESon 10-30-2022 [facility] Ed Note ED Note: Last filed note HNO ID: [id number] Author: Ashley Jenkins RN Service: ? Author Type: Registered Nurse Filed: 10/30/222127 Note Text: Pt care assumed. [facility] ED PROVIDER NOTESon 10-31-19 [facility] Ed Provider Note [facility] ED Provider Noteson 10-31-19 ED Provider Notes Encounter Department : [facility] EMERGENCY ED Provider Notes by Jourdan Beckford MD at 10/30/2022 6:15 AM Author: VINEET Trivediervice: -Author Type: ED Physician Filed: 10/30/2022 6:43 AMDate of Service: 10/30/2022 6:15 AMStatus: Addendum Parts Data Writer: Jourdan Beckford MD (ED Physician) Related Notes: Original Note by Jourdan Beckford MD (ED Physician) filed at 10/30/2022 6:20 AM ATTENDING NOTE: I discussed this patient's history and physical findings and reviewed the resident's findings with them, as well as performed an independent assessment and coordinated care with them. My additional findings are: HISTORY OF PRESENT ILLNESS: Mckinley Roman is a 37 y.o. male who presents with desire to stop drinking. He says he wants help now. GARCÍA PHYSICAL EXAM Breathing comfortably, normal heart rate, benign abdomen, calm but irritable when denied PLAN/ED COURSE/MDM: Patient was evaluated medically. His CBC and BMP were unremarkable. LFTs were negative. Tox showed ethanol at 138. He does not have a tremor or tachycardia. He is currently medically stable. We referred him to access for detox. Vitals ED Triage Vitals BP10/30/22 0177744/79 Temp10/30/22 064298.8 ?F (36.6 ?C) Pulse10/30/22 261810 Resp10/30/22 757917 FiL96710/30/22 309400 % Weight-- Marta Coma Scale Score10/30/22 782213 BMI (Calculated)-- ED LABS/EKG: CBC W/DIFF - Abnormal; Notable for the following components: ResultValueRef RangeStatus MCV84.4 (*)85.0 - 99.0 flFinal All other components within normal limits LIVER PROFILE PANEL - Abnormal; Notable for the following components: Total Bilirubin0.2 (*)0.3 - 1.0 mg/dlFinal All other components within normal limits SERUM TOX SCREEN - Abnormal; Notable for the following components: Acetaminophen Level<10 (*)10 - 30 ug/mLFinal Fynfuue506 (*)<10 mg/dLFinal Salicylate<2.5 (*)3.0 - 20.0 mg/dLFinal All other components within normal limits Narrative: Salicylate Therapeutic Range: 20-25 mg/dL Acetaminophen Therapeutic Range:10.00-30.00 ug/mL SARS-COV2-2 RAPID TEST - Normal Narrative: This COVID-19 assay is a rapid molecular in vitro diagnostic test utilizing an isothermal nucleic acid amplification technology intended for the qualitative detection of nucleic acid from the SARS-CoV-2 viral RNA. Results are for the identification of SARS-CoV-2 RNA. The SARS-CoV-2 RNA is generally detectable in respiratory samples during the acute phase of infection. Positive results are indicative of the presence of SARS-CoV-2 RNA; clinical correlation with patient history and other diagnostic information is necessary to determine patient infection status. Negative results should be treated as presumptive and, if inconsistent with clinical signs and symptoms or necessary for patient management, should be tested with an alternative molecular assay. Negative results do not preclude SARS-CoV-2 infection and should not be used as the sole basis for patient management decisions. Negative results should be considered in the context of a patient's recent exposures, history, presence of clinical signs and symptoms consistent with COVID-19. For Use Under an Emergency Use Authorization (EUA) Only BASIC METABOLIC PANEL Narrative: KDIGO 2012 GFR Categories Stage Description eGFR (mL/min/1.73m2) G1 Normal or high >=90 G2 Mildly decreased 60-89 G3a Mildly to moderately decreased 45-59 G3b Moderately to severely decreased 30-44 G4 Severely decreased 15-29 G5 Kidney Failure <15 No results found for this visit on 10/30/22. ED IMAGING: Last Imaging results No results found for this visit on 10/30/22. Diagnosis: ICD-10-CM 1.Alcohol abuse F10.10 2.Homeless Z59.00 Critical Care Time: I have personally provided 0 minutes of critical care time (excluding separately listed procedures) through obtaining a history, examining the patient, reviewing relevant medical records, discussing care with family and/or other providers, performing multiple reassessments and directing care. Resident Procedure Attestation: I was present/supervised the garcía portions of all procedures performed by the resident/beverage steward. This dictation was created with voice recognition software. While attempts have been made to review the dictation as it is transcribed, on occasion the spoken word can be misinterpreted by the technology leading to omissions or inappropriate words, phrases or sentences. Electronically signed by: Jourdan Beckford MD, FACEP Jourdan Beckford MD 10/30/22 0620 Jourdan Beckford MD 10/30/22 0643 Normal [facility] ED Provider Notes Encounter Department : [facility] EMERGENCY ED Provider Notes by Dolores Vogt DO at 10/30/2022 5:34 AM Author: Eusebia Quinnrvice: Emergency MedicineAuthor Type: Resident Filed: 10/30/2022 6:11 AMDate of Service: 10/30/2022 5:34 AMStatus: Signed Parts Data Writer: Dolores Vogt DO (Resident)Cosigner: Jourdan Beckford MD at 10/30/2022 6:21 AM CHIEF COMPLAINT Chief Complaint Patient presents with -Alcohol Problem HPI Mckinley Rmoan is a 37 y.o. male who presents to the ED via EMS for help with alcohol addiction. Patient states that he wants to quit drinking. Last drink was an hour ago. States that he had a quart of vodka and [address] [place]. States he drinks half a gallon of whiskey or vodka daily. Has been in withdrawal before with tremors and shakes. No DTs. Denies any other drug use. Denies any auditory visual hallucinations. Denies any complaints at this time. PAST MEDICAL HISTORY Past Medical History: DiagnosisDate -Alcoholic (HCC) -Anxiety -Major depressive disorder FAMILY HISTORY No family history on file. SOCIAL HISTORY Social History Socioeconomic History -Marital status:Single Tobacco Use -Smoking status:Some Days Types:Cigarettes -Smokeless tobacco:Never Vaping Use -Vaping Use:Some days Substance and Sexual Activity -Alcohol use:Yes Comment: fifth of whiskey a day -Drug use:Yes Types:Methamphetamines -Sexual activity:Yes SURGICAL HISTORY History reviewed. No pertinent surgical history. CURRENT MEDICATIONS No current facility-administered medications for this encounter. Current Outpatient Medications MedicationSigDispenseRef ill -cetirizine (ZYRTEC) 10 mg tabletTake 1 tablet (10 mg total) by mouth daily. -fluticasone propionate (FLONASE) 50 mcg/actuation nasal spray1 spray into nostril(s) every morning. -hydrOXYzine pamoate (VISTARIL) 50 mg capsuleTake 1 capsule (50 mg total) by mouth 3 times a day as needed. -traZODone (DESYREL) 50 mg tabletTake 1 tablet (50 mg total) by mouth at bedtime. -venlafaxine (EFFEXOR) 100 mg tabletTake 225 mg by mouth once. ALLERGIES No Known Allergies PHYSICAL EXAM VITAL SIGNS: BP 124/76 Pulse 70 Temp 97.8 ?F (36.6 ?C) Resp 15 SpO2 100% Constitutional: Awake. Alert. No acute distress HENT: Moist mucous membranes. Eyes: PERRL, EOMI Cardiovascular: Regular rate, regular rhythm. No murmurs. Thorax AND Lungs: No respiratory distress. Normal respiratory effort. Clear to auscultation bilaterally. No wheezing, rhonchi, or crackles. Skin: Warm, Dry. Abdomen: Soft, no tenderness. No guarding or rigidity. No rebound or distention. Neurologic: Alert AND oriented x 3 Psychiatric: Cooperative with exam. Normal affect. LABS CBC W/DIFF - Abnormal; Notable for the following components: ResultValueRef RangeStatus MCV84.4 (*)85.0 - 99.0 flFinal All other components within normal limits SERUM TOX SCREEN - Abnormal; Notable for the following components: Acetaminophen Level<10 (*)10 - 30 ug/mLFinal Wbcefax878 (*)<10 mg/dLFinal Salicylate<2.5 (*)3.0 - 20.0 mg/dLFinal All other components within normal limits Narrative: Salicylate Therapeutic Range: 20-25 mg/dL Acetaminophen Therapeutic Range:10.00-30.00 ug/mL SARS-COV2-2 RAPID TEST - Normal Narrative: This COVID-19 assay is a rapid molecular in vitro diagnostic test utilizing an isothermal nucleic acid amplification technology intended for the qualitative detection of nucleic acid from the SARS-CoV-2 viral RNA. Results are for the identification of SARS-CoV-2 RNA. The SARS-CoV-2 RNA is generally detectable in respiratory samples during the acute phase of infection. Positive results are indicative of the presence of SARS-CoV-2 RNA; clinical correlation with patient history and other diagnostic information is necessary to determine patient infection status. Negative results should be treated as presumptive and, if inconsistent with clinical signs and symptoms or necessary for patient management, should be tested with an alternative molecular assay. Negative results do not preclude SARS-CoV-2 infection and should not be used as the sole basis for patient management decisions. Negative results should be considered in the context of a patient's recent exposures, history, presence of clinical signs and symptoms consistent with COVID-19. For Use Under an Emergency Use Authorization (EUA) Only BASIC METABOLIC PANEL Narrative: KDIGO 2012 GFR Categories Stage Description eGFR (mL/min/1.73m2) G1 Normal or high >=90 G2 Mildly decreased 60-89 G3a Mildly to moderately decreased 45-59 G3b Moderately to severely decreased 30-44 G4 Severely decreased 15-29 G5 Kidney Failure <15 LIVER PROFILE PANEL COURSE Pertinent Labs AND Imaging studies reviewed. (See chart for details) Medications - No data to display New Prescriptions No medications on file Vitals Patient Vitals for the past 24 hrs: BPTempPulseRespSpO2 10/30/22 0605--9350696 % (more content not included)... Normal [facility] ED TRIAGEon 10-30-2022 [facility] Ed Triage Note Normal [facility] ETHANOLon 10-30-2022 COMMENT For Medical Purposes only. Abnormal [facility] Comment on above: Performed By: #### L [id number] ####[place] [phone] ETHANOL, SERUM/PLASMA 133 mg/dL High <10 [place] Comment on above: Performed By: #### L [id number] ####[place] [phone] Ethanol [Mass/Vol] 133 mg/dL High NINF - 10 mg/dL [facility] Interpretation and review of laboratory results Abnormal [facility] For Medical Purposes only. [facility] HEPATIC FUNCTION PANELon Albumin [Mass/Vol] 4.1 g/dL Normal 3.5-5.2 [facility] Comment on above: Performed By: #### L [id number] ####[place] [phone] ALP [Catalytic activity/Vol] 118 U/L Normal 23-144 [facility] Comment on above: Performed By: #### L [id number] ####[place] [phone] ALT < Normal 0-60 [facility] Comment on above: Performed By: #### L [id number] ####[place] [phone] AST < Normal 0-46 [facility] Comment on above: Result Comment: Hemo lysis present. Results may be affected. Performed By: #### L [id number] ####[facility] [phone] BILIRUBIN, DIRECT < Normal 0.0-0.4 [facility] Comment on above: Result Comment: Elan justine present. Results may be affected. Performed By: #### L [id number] ####[place] [phone] BILIRUBIN, INDIRECT Normal [facility] Comment on above: Result Comment: Unab le to calculate. Performed By: #### L [id number] ####[place] [phone] BILIRUBIN, TOTAL < Normal 0.0-1.2 [facility] Comment on above: Performed By: #### L [id number] ####[place] [phone] Protein [Mass/Vol] 7.0 g/dL Normal 6.0-8.3 [facility] Comment on above: Performed By: #### L [id number] ####[place] [phone] HEPATIC FUNCTION PANELOrdere d By: Cora Thorne on 10-30-2022 Albumin [Mass/Vol] 4.1 g/dL 3.5 - 5.2 g/dL [facility] ALP [Catalytic activity/Vol] 118 U/L 23 - 144 U/L [facility] ALT [Catalytic activity/Vol] U/L 0 - 60 U/L [facility] AST [Catalytic activity/Vol] U/L 0 - 46 U/L [facility] Comment on above: Hemolysis present. R esults may be affected. Bilirubin [Mass/Vol] mg/dL 0.0 - 1 .2 mg/dL [facility] Bilirubin.direct [Mass/Vol] mg/dL 0.0 - 0.4 mg/dL [facility] Comment on above: Lipemia present. Res ults may be affected. Bilirubin.indirect [Mass/Vol] [facility] Comment on above: Unable to calculate. Protein [Mass/Vol] 7.0 g/dL 6.0 - 8.3 g/dL [facility] LIPASEon 10-30-2022 Lipase [Catalytic activity/Vol] 29 U/L Normal 0-60 [facility] Comment on above: Performed By: #### L [id number] ####[place] [phone] Interpretation and review of laboratory results Normal [facility] Lipase [Catalytic activity/Vol] 29 U/L 0 - 60 U/L [facility] LIVER PROFILE PANELon 2022 ALBUMIN Normal [facility] Comment on above: Order Comment: Cultu re of the urine specimen was not completed as criteria were not met. Release to patient->Immediate Performed By: #### L [id number], [id number] #### [facility] [address] [place] [address] Albumin [Mass/Vol] 4.4 g/dL Normal 3.5-5.7 [facility] Comment on above: Order Comment: Cultu re of the urine specimen was not completed as criteria were not met. Release to patient->Immediate Performed By: #### L [id number], [id number] #### [facility] [address] [place] [address] ALKALINE PHOSPHATASE Normal [facility] Comment on above: Order Comment: Cultu re of the urine specimen was not completed as criteria were not met. Release to patient->Immediate Performed By: #### L [id number], [id number] #### [facility] [address] [place] [address] ALP [Catalytic activity/Vol] 102 U/L Normal 34-104 [facility] Comment on above: Order Comment: Cultu re of the urine specimen was not completed as criteria were not met. Release to patient->Immediate Performed By: #### L [id number], [id number] #### [facility] [address] [place] [address] ALT (SGPT) Normal [facility] Comment on above: Order Comment: Cultu re of the urine specimen was not completed as criteria were not met. Release to patient->Immediate Performed By: #### L [id number], [id number] #### [facility] [address] [place] [address] ALT [Catalytic activity/Vol] 41 U/L Normal 7-52 [facility] Comment on above: Order Comment: Cultu re of the urine specimen was not completed as criteria were not met. Release to patient->Immediate Performed By: #### L [id number], [id number] #### [facility] [address] [place] [address] AST (SGOT) Normal [facility] Comment on above: Order Comment: Cultu re of the urine specimen was not completed as criteria were not met. Release to patient->Immediate Performed By: #### L [id number], [id number] #### [facility] [address] [place] [address] AST [Catalytic activity/Vol] 20 U/L Normal 13-39 [facility] Comment on above: Order Comment: Cultu re of the urine specimen was not completed as criteria were not met. Release to patient->Immediate Performed By: #### L [id number], [id number] #### [facility] [address] [place] [address] Bilirubin [Mass/Vol] 0.2 mg/dL Normal 0.3-1.0 [facility] Comment on above: Order Comment: Cultu re of the urine specimen was not completed as criteria were not met. Release to patient->Immediate Performed By: #### L [id number], [id number] #### [facility] [address] [place] [address] BILIRUBIN, DIRECT Normal [facility] Comment on above: Order Comment: Cultu re of the urine specimen was not completed as criteria were not met. Release to patient->Immediate Performed By: #### L [id number], [id number] #### [facility] [address] [place] [address] Bilirubin.indirect [Mass/Vol] mg/dL Normal <=0.20 [facility] Comment on above: Order Comment: Cultu re of the urine specimen was not completed as criteria were not met. Release to patient->Immediate Performed By: #### L [id number], [id number] #### [facility] [address] [place] [address] Protein [Mass/Vol] 7.4 g/dL Normal 6.0-8.3 [facility] Comment on above: Order Comment: Cultu re of the urine specimen was not completed as criteria were not met. Release to patient->Immediate Performed By: #### L [id number], [id number] #### [facility] [address] [place] [address] PROTEIN, TOTAL Normal [facility] Comment on above: Order Comment: Cultu re of the urine specimen was not completed as criteria were not met. Release to patient->Immediate Performed By: #### L [id number], [id number] #### [facility] [address] [place] [address] TOTAL BILIRUBIN [facility] Comment on above: Order Comment: Cultu re of the urine specimen was not completed as criteria were not met. Release to patient->Immediate Performed By: #### L [id number], [id number] #### [facility] [address] [place] [address] No Panel Informationon 10-30 [facility] SARS-COV2-2 RAPID TESTon SARS-CoV-2 (COVID-19) RNA KARIN+probe Ql (Unsp spec) [facility] Comment on above: Order Comment: This COVID-19 assay is a rapid molecular in vitro diagnostic test utilizing an isothermal nucleic acid amplification technology intended for the qualitative detection of nucleic acid from the SARS-CoV-2 viral RNA.Results are for the identification of SARS-CoV-2 RNA. The SARS-CoV-2 RNA is generally detectable in respiratory samples during the acute phase of infection. Positive results are indicative of the presence of SARS-CoV-2 RNA; clinical correlation with patient history and other diagnostic information is necessary to determine patient infection status.Negative results should be treated as presumptive and, if inconsistent with clinical signs and symptoms or necessary for patient management, should be tested with an alternative molecular assay. Negative results do not preclude SARS-CoV-2 infection and should not be used as the sole basis for patient management decisions. Negative results should be considered in the context of a patient's recent exposures, history, presence of clinical signs and symptoms consistent with COVID-19.For Use Under an Emergency Use Authorization (EUA) OnlyIndication for rapid screen->Semi-private screeningRelease to patient->Immediate Performed By: #### L [id number] ####[address] [place] [address] SARS-CoV-2 (COVID-19) RNA KARIN+probe Ql (Unsp spec) Not detected Normal Negative [facility] Comment on above: Order Comment: This COVID-19 assay is a rapid molecular in vitro diagnostic test utilizing an isothermal nucleic acid amplification technology intended for the qualitative detection of nucleic acid from the SARS-CoV-2 viral RNA.Results are for the identification of SARS-CoV-2 RNA. The SARS-CoV-2 RNA is generally detectable in respiratory samples during the acute phase of infection. Positive results are indicative of the presence of SARS-CoV-2 RNA; clinical correlation with patient history and other diagnostic information is necessary to determine patient infection status.Negative results should be treated as presumptive and, if inconsistent with clinical signs and symptoms or necessary for patient management, should be tested with an alternative molecular assay. Negative results do not preclude SARS-CoV-2 infection and should not be used as the sole basis for patient management decisions. Negative results should be considered in the context of a patient's recent exposures, history, presence of clinical signs and symptoms consistent with COVID-19.For Use Under an Emergency Use Authorization (EUA) OnlyIndication for rapid screen->Semi-private screeningRelease to patient->Immediate Performed By: #### L [id number] ####[address] [place] [address] SERUM TOX SCREENon 3 ACETAMINOPHEN LEVEL Normal [facility] Comment on above: Order Comment: Cultu re of the urine specimen was not completed as criteria were not met. Release to patient->Immediate Performed By: #### L [id number], [id number] #### [address] [place] [address] ACETAMINOPHEN LEVEL <10 Normal 10-30 [facility] Comment on above: Order Comment: Cultu re of the urine specimen was not completed as criteria were not met. Release to patient->Immediate Performed By: #### L [id number], [id number] #### [address] [place] [address] ETHANOL Normal [facility] Comment on above: Order Comment: Cultu re of the urine specimen was not completed as criteria were not met. Release to patient->Immediate Performed By: #### L [id number], [id number] #### [facility] [address] [place] [address] Ethanol [Mass/Vol] 138 mg/dL Normal <10 [facility] Comment on above: Order Comment: Cultu re of the urine specimen was not completed as criteria were not met. Release to patient->Immediate Performed By: #### L [id number], [id number] #### [facility] [address] [place] [address] SALICYLATE ([facility]/IRS) Normal [facility] Comment on above: Order Comment: Cultu re of the urine specimen was not completed as criteria were not met. Release to patient->Immediate Performed By: #### L [id number], [id number] #### [facility] [address] [place] [address] SALICYLATE ([facility]/IRS) <2.5 Normal 3.0-20.0 [facility] Comment on above: Order Comment: Cultu re of the urine specimen was not completed as criteria were not met. Release to patient->Immediate Performed By: #### L [id number], [id number] #### [facility] [address] [place] [address] BASIC METABOLIC PANELon 09-0 ANION GAP Abnormal [facility] Comment on above: Order Comment: KDIGO 2012 GFR Categories StageDescriptioneGFR (mL/min/1.73m2) V3Gyzezc or high>=90 Z8Rizfvc igkvuduez50-01 I1dVqlgrc to moderately tigkikbnc29-13 U3wNnmeeywawv to severely bnlubadmz95-70 T7Ifyopgnz nubdftpoc15-91 X9Hyysjr Failure<15 Release to patient->Immediate Performed By: #### L [id number], [id number], LAB15 #### [facility] [address] [place] [address] Anion gap [Moles/Vol] 6 mmol/L Normal [facility] Comment on above: Order Comment: [facility] 2012 GFR Categories StageDescriptioneGFR (mL/min/1.73m2) H0Ljucft or high>=90 C2Xzmapj obhwidrqw32-72 H8eVsbbln to moderately -04 A2aBrigmvygcw to severely rejwsqvxc30-06 H1Ldtrgzes yhunvixex66-00 I6Mwwdha Failure<15 Release to patient->Immediate Performed By: #### L AB62, [id number], LAB15 #### [facility] [address] [place] [address] BLOOD UREA NITROGEN Normal [facility] Comment on above: Order Comment: [facility] 2012 GFR Categories StageDescriptioneGFR (mL/min/1.73m2) A7Qncdcp or high>=90 Y7Elchhl ydxtelcjb60-83 O9wUcbtde to moderately iwytbaeys06-74 U2qXlegelggue to severely chqtyzflj33-25 X7Nevkjjpo hdvjrqcil23-69 R5Evlkvc Failure<15 Release to patient->Immediate Performed By: #### L AB62, [id number], LAB15 #### [facility] [address] [place] [address] CALCIUM Normal [facility] Comment on above: Order Comment: [facility] 2011 GFR Categories StageDescriptioneGFR (mL/min/1.73m2) Z8Vedcwx or high>=90 Q1Tpkdzy blwytwknl43-30 O1xBhffgs to moderately azllwvncq98-01 Z0aHazibjqmlr to severely lzzplklys44-81 Q1Unetfqmb umfgszrmz58-96 P9Peywtl Failure<15 Release to patient->Immediate Performed By: #### L AB62, [id number], LAB15 #### [facility] [address] [place] [address] Calcium [Mass/Vol] 9.2 mg/dL Normal [facility] Comment on above: Order Comment: [facility] 2011 GFR Categories StageDescriptioneGFR (mL/min/1.73m2) Z2Wjmonn or high>=90 D2Dupylr gejlbnxyq23-84 J9aLrbllh to moderately dusdpouqc23-34 E7eEunzqgksoo to severely hzzyedrxq74-22 O8Kxnluyis mouzrsqpn92-73 C9Thtwdr Failure<15 Release to patient->Immediate Performed By: #### L AB62, [id number], LAB15 #### [facility] [address] [place] [address] CARBON DIOXIDE Normal [facility] Comment on above: Order Comment: [facility] 2011 GFR Categories StageDescriptioneGFR (mL/min/1.73m2) O4Pcruhp or high>=90 K2Nokrvq gugmhktyl46-30 D9pPkxorl to moderately dgeqgtbse56-15 K1sGmltwjswbe to severely jeopmcpxt08-98 B5Orqinvvz znacjxqfd67-10 N6Tkesqe Failure<15 Release to patient->Immediate Performed By: #### L AB62, [id number], LAB15 #### [facility] [address] [place] [address] CHLORIDE Abnormal [facility] Comment on above: Order Comment: [facility] 2011 GFR Categories StageDescriptioneGFR (mL/min/1.73m2) Q4Dzddcw or high>=90 J8Qhlmbm hvtlqntel99-92 K9jRbfymm to moderately dftnoygsb16-12 L4hBdtzwttjeg to severely idqztifpg94-88 W0Jlaybtyk iarrdeebb04-47 W4Sukoof Failure<15 Release to patient->Immediate Performed By: #### L AB62, [id number], LAB15 #### [facility] [address] [place] [address] Chloride [Moles/Vol] 109 mmol/L Normal [facility] Comment on above: Order Comment: [facility] 2011 GFR Categories StageDescriptioneGFR (mL/min/1.73m2) N3Xhjpuc or high>=90 O7Zzdvow gxcicdovb43-10 G2nSduwax to moderately lpsfugbuw09-34 K0fDfcjrtcpma to severely ggufcxsdp76-52 S1Ncnzqsbi wrmdyiuef69-70 L7Kypajo Failure<15 Release to patient->Immediate Performed By: #### L AB62, [id number], LAB15 #### [facility] [address] [place] [address] CO2 [Moles/Vol] 25 mmol/L Normal [facility] Comment on above: Order Comment: [facility] 2011 GFR Categories StageDescriptioneGFR (mL/min/1.73m2) J5Majpsc or high>=90 X4Jkgdxe otijczxze83-12 K6kGtshny to moderately umamdgzqf41-68 C2tQclyfkppdl to severely zgqnqwert99-64 D2Arrxsyqt ogqszabbi64-75 K1Jmsqlz Failure<15 Release to patient->Immediate Performed By: #### L AB62, [id number], LAB15 #### [facility] [address] [place] [address] CREATININE Normal [facility] Comment on above: Order Comment: [facility] 2012 GFR Categories StageDescriptioneGFR (mL/min/1.73m2) P4Jvvrvh or high>=90 R9Kvgdlz fzklwackp07-55 K9nPvpzcn to moderately vaxsyilne89-58 C3xDvnpqvjgjq to severely vctbbixgn94-65 T1Tnuaemjs -25 W8Tzgeai Failure<15 Release to patient->Immediate Performed By: #### L AB62, [id number], LAB15 #### [facility] [address] [place] [address] Creatinine [Mass/Vol] 1.25 mg/dL Normal [facility] Comment on above: Order Comment: [facility]DIG[facility] 2012 GFR Categories StageDescriptioneGFR (mL/min/1.73m2) G3Rpcpoz or high>=90 T2Qwcryy bacfgtvss76-63 F9gRcnqcc to moderately zeneopdel72-86 C0oGzlmtxzhmo to severely osmrbhzyz76-05 W9Nqicncee ymfgqcpoj49-87 O7Porhzy Failure<15 Release to patient->Immediate Performed By: #### L AB62, [id number], LAB15 #### [facility] [address] [place] [address] GFR MALE Normal [facility] Comment on above: Order Comment: [facility] 2012 GFR Categories StageDescriptioneGFR (mL/min/1.73m2) G6Kxqnip or high>=90 Y3Rkianm -93 G1jZvpfyr to moderately -03 J1aWgnabxjxtw to severely claxcfhwu64-09 B9Hpqqvxep -05 U3Llnujq Failure<15 Release to patient->Immediate Result Comment: Repo rted eGFR is based on the CKD-EPI 2020 equation that does not use a race coefficient. Performed By: #### L AB62, [id number], LAB15 #### [facility] [address] [place] [address] GFR MALE 76 Normal [facility] Comment on above: Order Comment: [facility] 2012 GFR Categories StageDescriptioneGFR (mL/min/1.73m2) C4Tdxjrh or high>=90 A5Yamwsy sjmmuafxj53-77 O6eGqdjhm to moderately uhzauckvd29-70 P7aFoaztgqhvd to severely nhraftkmn92-54 P3Tinnolbq xbvpebphj00-15 Z5Sawvnx Failure<15 Release to patient->Immediate Performed By: #### L AB62, [id number], LAB15 #### [facility] [address] [place] [address] GLUCOSE Normal [facility] Comment on above: Order Comment: I[facility] 2012 GFR Categories StageDescriptioneGFR (mL/min/1.73m2) W5Ihacaq or high>=90 F3Funzun auxvcgggr74-63 P4eJpwdmp to moderately vrnhbprpu73-19 N5oIsvcpgajvd to severely zmunjmbaa97-59 H1Ksfaonhz avkdpmsvo34-28 K6Ppljmn Failure<15 Release to patient->Immediate Performed By: #### L AB62, [id number], LAB15 #### [facility] [address] [place] [address] Glucose [Mass/Vol] 92 mg/dL Normal [facility] Comment on above: Order Comment: IGO 2012 GFR Categories StageDescriptioneGFR (mL/min/1.73m2) G7Rycpzx or high>=90 M3Sbhfxf pxpqtnpym47-25 N5hAvnxfc to moderately ktobkvxyi32-56 E6xRrffvxskdy to severely qglfmebcw34-89 A5Hzwgwvdt hhpdnoxgp63-85 Z0Dxxmzd Failure<15 Release to patient->Immediate Performed By: #### L AB62, [id number], LAB15 #### [facility] [address] [place] [address] POTASSIUM Normal [facility] Comment on above: Order Comment: IGO 2012 GFR Categories StageDescriptioneGFR (mL/min/1.73m2) W7Chjdfc or high>=90 A0Rkgkrr -64 N3vSnzlso to moderately -64 V4bRxajjlmcuy to severely ztgjwfcii38-46 E5Tillioqh smcwucbav40-64 W8Qorbhb Failure<15 Release to patient->Immediate Performed By: #### L AB62, [id number], LAB15 #### [facility] [address] [place] [address] Potassium [Moles/Vol] 3.8 mmol/L Normal [facility] Comment on above: Order Comment: [facility] 2011 GFR Categories StageDescriptioneGFR (mL/min/1.73m2) S6Lfztov or high>=90 K3Zhizer npmlicult49-98 D6dTvxaoa to moderately fibbhanfk79-70 B0vNoglonczeg to severely ibdzxebxe90-79 O3Acamtcqy ohmvbmzrd50-79 E6Uhzhbh Failure<15 Release to patient->Immediate Performed By: #### L AB62, [id number], LAB15 #### [facility] [address] [place] [address] SODIUM Normal [facility] Comment on above: Order Comment: IGO 2011 GFR Categories StageDescriptioneGFR (mL/min/1.73m2) K5Rocgbs or high>=90 A0Guecno fbrzlmnaq90-13 B7zTyyuiv to moderately nmgywenhx48-71 O4nLdwwfazisl to severely dmecpemgk61-52 U5Cvwwhbns nwlujrelu89-67 A1Tqslai Failure<15 Release to patient->Immediate Performed By: #### L AB62, CAG546, LAB15 #### [facility] [address] [place] [address] Sodium [Moles/Vol] 140 mmol/L Normal [facility] Comment on above: Order Comment: [facility] 2011 GFR Categories StageDescriptioneGFR (mL/min/1.73m2) T8Ilbxjv or high>=90 A1Ealsna ghntwvezq69-87 W2rLzuocu to moderately jwsijvdqm48-62 A8vNmosepnmtb to severely cwiwsqzwc14-20 T9Zoxekeqo -59 F3Synjtg Failure<15 Release to patient->Immediate Performed By: #### L AB62, [id number], LAB15 #### [facility] [address] [place] [address] Urea nitrogen [Mass/Vol] 16 mg/dL Normal [facility] Comment on above: Order Comment: [facility] 2011 GFR Categories StageDescriptioneGFR (mL/min/1.73m2) K2Wledvj or high>=90 A6Jqzyzf mdxmunzox68-07 D0uBisvda to moderately qsaskhibp61-60 E9tHbxyiyccwo to severely -40 C2Nlytsfmq srrsvbxyg64-32 T8Ekwedk Failure<15 Release to patient->Immediate Performed By: #### L AB62, [id number], LAB15 #### [facility] [address] [place] [address] CBC W/DIFFon 10-15-2022 BASOPHILS ABS AUTO Normal [facility] Comment on above: Order Comment: Relea se to patient->Immediate Performed By: #### L [id number] #### [facility] [address] [place] [address] BASOPHILS ABS AUTO 0.0 Normal [facility] Comment on above: Order Comment: Relea se to patient->Immediate Performed By: #### L [id number] #### [facility] [address] [place] [address] BASOPHILS RELATIVE AUTO Normal [facility] Comment on above: Order Comment: Relea se to patient->Immediate Performed By: #### L [id number] #### [facility] [address] [place] [address] BASOPHILS RELATIVE AUTO 0.4 Normal [facility] Comment on above: Order Comment: Relea se to patient->Immediate Performed By: #### L [id number] #### [facility] [address] [place] [address] EOSINOPHIL ABS AUTO Normal [facility] Comment on above: Order Comment: Relea se to patient->Immediate Performed By: #### L [id number] #### [facility] [address] [place] [address] EOSINOPHIL ABS AUTO 0.4 Normal [facility] Comment on above: Order Comment: Relea se to patient->Immediate Performed By: #### L [id number] #### [facility] [address] [place] [address] EOSINOPHILS RELATIVE AUTO Normal [facility] Comment on above: Order Comment: Relea se to patient->Immediate Performed By: #### L [id number] #### [facility] [address] [place] [address] EOSINOPHILS RELATIVE AUTO 3.8 Normal [facility] Comment on above: Order Comment: Relea se to patient->Immediate Performed By: #### L [id number] #### [facility] [address] [place] [address] Erythrocyte distribution width (RBC) [Ratio] 13.6 % Normal [facility] Comment on above: Order Comment: Relea se to patient->Immediate Performed By: #### L [id number] #### [facility] [address] [place] [address] HEMATOCRIT BLOOD Normal [facility] Comment on above: Order Comment: Relea se to patient->Immediate Performed By: #### L [id number] #### [facility] [address] [place] [address] HEMATOCRIT BLOOD 45.5 Normal [facility] Comment on above: Order Comment: Relea se to patient->Immediate Performed By: #### L [id number] #### [facility] [address] [place] [address] HEMOGLOBIN Normal [facility] Comment on above: Order Comment: Relea se to patient->Immediate Performed By: #### L [id number] #### [facility] [address] [place] [address] Hemoglobin (Bld) [Mass/Vol] 15.9 g/dL Normal [facility] Comment on above: Order Comment: Relea se to patient->Immediate Performed By: #### L [id number] #### [facility] [address] [place] [address] LYMPHOCYTE ABS AUTO Normal [facility] Comment on above: Order Comment: Relea se to patient->Immediate Performed By: #### L [id number] #### [facility] [address] [place] [address] LYMPHOCYTE ABS AUTO 3.2 Normal [facility] Comment on above: Order Comment: Relea se to patient->Immediate Performed By: #### L [id number] #### [facility] [address] [place] [address] LYMPHOCYTES RELATIVE AUTO Normal [facility] Comment on above: Order Comment: Relea se to patient->Immediate Performed By: #### L [id number] #### [facility] [address] [place] [address] LYMPHOCYTES RELATIVE AUTO 31.7 Normal [facility] Comment on above: Order Comment: Relea se to patient->Immediate Performed By: #### L [id number] #### [facility] [address] [place] [address] MCH Normal [facility] Comment on above: Order Comment: Relea se to patient->Immediate Performed By: #### L [id number] #### [facility] [address] [place] [address] MCH (RBC) [Entitic mass] 29.6 pg [facility] Comment on above: Order Comment: Relea se to patient->Immediate Performed By: #### L [id number] #### [facility] [address] [place] [address] MCHC [facility] Comment on above: Order Comment: Relea se to patient->Immediate Performed By: #### L [id number] #### [facility] [address] [place] [address] MCHC (RBC) [Mass/Vol] 35.0 g/dL Normal [facility] Comment on above: Order Comment: Relea se to patient->Immediate Performed By: #### L [id number] #### [facility] [address] [place] [address] MCV Abnormal [facility] Comment on above: Order Comment: Relea se to patient->Immediate Performed By: #### L [id number] #### [facility] [address] [place] [address] MCV (RBC) [Entitic vol] 84.7 fL Normal [facility] Comment on above: Order Comment: Relea se to patient->Immediate Performed By: #### L [id number] #### [facility] [address] [place] [address] MONOCYTE ABS AUTO Normal [facility] Comment on above: Order Comment: Relea se to patient->Immediate Performed By: #### L [id number] #### [facility] [address] [place] [address] MONOCYTE ABS AUTO 0.6 Normal [facility] Comment on above: Order Comment: Relea se to patient->Immediate Performed By: #### L [id number] #### [facility] [address] [place] [address] MONOCYTES RELATIVE AUTO Normal [facility] Comment on above: Order Comment: Relea se to patient->Immediate Performed By: #### L [id number] #### [facility] [address] [place] [address] MONOCYTES RELATIVE AUTO 5.4 Normal [facility] Comment on above: Order Comment: Relea se to patient->Immediate Performed By: #### L [id number] #### [facility] [address] [place] [address] NEUTROPHIL ABS AUTO Normal [facility] Comment on above: Order Comment: Relea se to patient->Immediate Performed By: #### L [id number] #### [facility] [address] [place] [address] NEUTROPHIL ABS AUTO 6.0 Normal [facility] Comment on above: Order Comment: Relea se to patient->Immediate Performed By: #### L [id number] #### [facility] [address] [place] [address] NEUTROPHILS RELATIVE AUTO Normal [facility] Comment on above: Order Comment: Relea se to patient->Immediate Performed By: #### L [id number] #### [facility] [address] [place] [address] NEUTROPHILS RELATIVE AUTO 58.7 Normal [facility] Comment on above: Order Comment: Relea se to patient->Immediate Performed By: #### L [id number] #### [facility] [address] [place] [address] PLATELET COUNT Normal [facility] Comment on above: Order Comment: Relea se to patient->Immediate Performed By: #### L [id number] #### [facility] [address] [place] [address] Platelets (Bld) [#/Vol] 308 10*3/uL Normal [facility] Comment on above: Order Comment: Relea se to patient->Immediate Performed By: #### L [id number] #### [facility] [address] [place] [address] RBC (Bld) [#/Vol] 5.38 10*6/uL Normal [facility] Comment on above: Order Comment: Relea se to patient->Immediate Performed By: #### L [id number] #### [facility] [address] [place] [address] RDW Normal [facility] Comment on above: Order Comment: Relea se to patient->Immediate Performed By: #### L [id number] #### [facility] [address] [place] [address] RED BLOOD CELL COUNT Normal [facility] Comment on above: Order Comment: Relea se to patient->Immediate Performed By: #### L [id number] #### [facility] [address] [place] [address] WBC (Bld) [#/Vol] 10.2 10*3/uL Normal [facility] Comment on above: Order Comment: Relea se to patient->Immediate Performed By: #### L [id number] #### [facility] [address] [place] [address] WHITE BLOOD CELL COUNT Normal [facility] Comment on above: Order Comment: Relea se to patient->Immediate Performed By: #### L [id number] #### [facility] [address] [place] [address] CKon 10-15-2022 CREATINE KINASE TOTAL Abnormal [facility] Comment on above: Order Comment: Relea se to patient->Immediate Performed By: #### L AB62, [id number], LAB15 #### [facility] [address] [place] [address] CREATINE KINASE TOTAL 341 Normal [facility] Comment on above: Order Comment: Relea se to patient->Immediate Performed By: #### L AB62, [id number], LAB15 #### [facility] [address] [place] [address] CT-HEAD W/O CONTRASTon 10-15 CT-HEAD W/O CONTRAST Invalid Interpretation Code [facility] CT-SPINE CERVICAL WO CONTRAS Ton 10-15-2022 CT-SPINE CERVICAL WO CONTRAST Invalid Interpretation Code [facility] Consultson 10-15-2022 Consults Encounter Department : [facility] Consults by NASREEN Llanos NCC at 10/15/2022 9:29 PM Author: NASREEN Llanos NCCService: -Author Type: CRISTOBAL Specialist Filed: 10/16/2022 12:42 AMDate of Service: 10/15/2022 9:29 PMStatus: Signed Parts Data Writer: NASREEN Llanos NCC (CRISTOBAL Specialist) Consult Orders 1. Behavioral Health Assessment Consult [[id number]] ordered by Kayla Simon DO at 10/15/222126 BEHAVIORAL HEALTH ASSESSMENT TEAM CONSULT DATE: 10/16/22 Consult: Community Resources Referral - Substance Use disorder (JIMMY) Reason for consult: Detox Options and Inpatient Options Telehealth: no Identifying Information: 37 y.o. male seen in the Emergency Room Narrative: Patient is a 37 yo S/C/M who presented to [facility] ED at [address] [facility] for AMS. Patient as found lying on a sidewalk passed out. Patient reports he doesn't remember much of anything happening today except that he was drinking. He reports he drinks 1/5 of multiple different liquors/whiskey everyday all day long. He also reports using meth several times weekly with last use several days ago. Patient reports he was at [facility] recently but didn't finish either program. Patient reports he is homeless and has been living/sleeping on streets for past several week; however, patient is clean and well-groomed. He states he steals money to obtain alcohol and meth. MH diagnosis: MDD. Medications: Effexor 225 mg prescribed by the various [facility] facilities he has been at. MH treatment: none. Per chart: patient has been to multiple detox/rehab/sober living facilities over the years but doesn't finish any of the programs due to his lack of commitment. He has left programs AMA as well as asked to leave programs for various reasons such as inappropriate behavior. Patient also has an extensive legal history including theft, disorderly conduct, driving with suspended license as well as other charges. Discussed all options including walk-in hours and contacting public health for placement but patient became irritated and angry he could not be placed in a facility overnight. Patient was offered a cab to homeless [facility] but he requested to stay in ED overnight; however, when told this is the physician's decision he stated you're no help, get out . Mental Status: Orientation: person, place, and time/ date Mood: calm and depressed Affect:constricted Speech: clear and normal Current [facility] Treatment: no -Provider: hx of multiple facility admissions and sober living Alcohol/Drug Screening: History of JIMMY: Yes Substance(s) of choice: Alcohol, Methamphetamine BAL: 157 UDS: ordered but pt did not provide sample Toxicology Completed: No If yes, does it correspond with patient report: Alcohol: Date of last use: 10/15/22 Method of use: oral Frequency in last 30 days: 1/5 whiskey daily How long have you been using?: 17 yrs When have you attempted to stop using alcohol? : (summer 2021 4 months) Did you experience any of the following symptoms?: Fatigue, Anxiety In the past, how have you handled withdrawal symptoms?: Detox facility (multiple detox facilities) Methamphetamines: Date of last use: (few days ago) Method of use: infect Frequency in last 30 days: 2-3 days/week; doesn't know how much How long have you been using?: age 31 When have you attempted to stop using? : (41 days between June and July 2022) Did you experience any of the following symptoms?: Fatigue In the past, how have you handled withdrawal symptoms?: Detox facility (multiple facilities) Detox: Have you ever been admitted to a detoxification facility for withdrawal from alcohol or other drugs?: Yes (multiple facilities including [facility], [place], [facility] in [place], and several other facilities) Have you noticed it takes more of a given substance to get the same results as before?: No What substance(s) have you used to relieve or avoid withdrawals?: denied If you have experienced cravings to use alcohol or drugs, what substances and what were the thoughts or events that caused the cravings?: denied If your mental health or alcohol/drug symptoms have caused problems during your employment, please describe:: denied If any of your medical conditions have been impacted by your use of alcohol or other drugs, please describe:: denied If you have ever continued to use a substance knowing it has caused or worsened a medical condition, what condition and how has it worsened?: denied Hx of Mental Health Diagnosis: Yes -Diagnosis: Depressive Disorder -Treatment: Past: Medication management Peer Support Offered : Not applicable ELIDIA Completed: no Physician/ Nurse Contact: Dr. Simon/Dr. 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 Provided patient a list of community resources in DC instructions (more content not included)... Normal [facility] ED Provider Noteson 10-16-19 ED Provider Notes Encounter Department : [facility] EMERGENCY ED Provider Notes by Kayla Simon DO at 10/15/2022 9:18 PM Author: Eusebia Connerrvice: Emergency MedicineAuthor Type: ED Physician Filed: 10/15/2022 11:50 PMDate of Service: 10/15/2022 9:18 PMStatus: Attested Parts Data Writer: Kayla Simon DO (ED Physician) Related Notes: Original Note by Kayla Simon DO (ED Physician) filed at 10/15/2022 11:49 PM Cosigner: Karely Craig DO at 10/16/2022 12:23 AM Attestation signed by Karely Craig DO at 10/16/2022 12:23 AM I saw and evaluated the patient and directed the plan of care. I have discussed with the resident physician and agree with the findings, management and disposition of the patient with the exception of any corrections noted in my documentation below HPI / PERTINENT REVIEW OF SYSTEMS: Patient presents via EMS after being found lying on a sidewalk. Patient reports he has been drinking alcohol and has history of alcohol abuse. Also uses methamphetamine. Complains of mild headache and neck pain. No back pain or focal neurologic complaints. GARCÍA PORTIONS OF PHYSICAL EXAM: ED Triage Vitals [10/15/222124] BP 126/79 Temp 98.3 ?F (36.8 ?C) Pulse 77 Resp 20 SpO2 95 % Weight 230 lb (104.3 kg) Alexander Coma Scale Score 14 BMI (Calculated) 32.1 Const: nad CV: RRR Pulm: CTAB Neuro: Awake and alert and oriented x3. non focal. GCS 15 RADIOLOGY: I have personally visualized the images and my interpretation is no obvious intracranial hemorrhage The radiologist interpretation: Results for orders placed or performed during the hospital encounter of 10/15/22 CT-HEAD W/O CONTRAST Narrative PROCEDURE: CT-HEAD W/O CONTRAST, CT-SPINE CERVICAL WO CONTRAST DATE OF EXAM: 10/15/2022 9:55 PM DEMOGRAPHICS: 37 years old Male INDICATION: Polytrauma, blunt History: Polytrauma, blunt. Number of Series/Images: 5. COMPARISON: No existing relevant imaging study corresponding to the same anatomical region is available. TECHNIQUE: Contiguous axial slices of the head were submitted without IV contrast. DOSE OPTIMIZATION: CT radiation dose optimization techniques (automated exposure control, and use of iterative reconstruction techniques, or adjustment of the mA and/or kV according to patient size) were used to limit patient radiation dose. FINDINGS: CT head: Paranasal Sinuses/Mastoid Air cells: No fluid levels Orbits: No acute orbital abnormality Brain: Ventricles and sulci are prominent for the patient's age. Ventricles are midline. No focal areas of abnormal density are noted. There is no hemorrhage or extra-axial collection CT cervical spine: Bones: Detail is limited due to artifact. There is straightening of the normal lordotic curvature. Degenerative changes are greatest at C5-C6. There is no acute displaced fracture. Soft tissues: Prevertebral soft tissue thickness is normal. Spinal canal: Canal detail is limited due to a large amount of artifact. There is no large disc herniation Impression 1. No acute intracranial hemorrhage 2. No acute cervical spine fracture This dictation was created with voice recognition software. While attempts have been made to review the dictation as it is transcribed, on occasion the spoken word can be misinterpreted by the technology leading to omissions or inappropriate words, phrases or sentences. Electronically Signed by: Karely Reyes MD, 10/15/2022 10:[address]-SPINE CERVICAL WO CONTRAST Narrative PROCEDURE: CT-HEAD W/O CONTRAST, CT-SPINE CERVICAL WO CONTRAST DATE OF EXAM: 10/15/2022 9:55 PM DEMOGRAPHICS: 37 years old Male INDICATION: Polytrauma, blunt History: Polytrauma, blunt. Number of Series/Images: 5. COMPARISON: No existing relevant imaging study corresponding to the same anatomical region is available. TECHNIQUE: Contiguous axial slices of the head were submitted without IV contrast. DOSE OPTIMIZATION: CT radiation dose optimization techniques (automated exposure control, and use of iterative reconstruction techniques, or adjustment of the mA and/or kV according to patient size) were used to limit patient radiation dose. FINDINGS: CT head: Paranasal Sinuses/Mastoid Air cells: No fluid levels Orbits: No acute orbital abnormality Brain: Ventricles and sulci are prominent for the patient's age. Ventricles are midline. No focal areas of abnormal density are noted. There is no hemorrhage or extra-axial collection CT cervical spine: Bones: Detail is limited due to artifact. There is straightening of the normal lordotic curvature. Degenerative changes are greatest at C5-C6. There is no acute displaced fracture. Soft tissues: Prevertebral soft tissue thickness is normal. Spinal canal: Canal detail is limited due to a large amount of artifact. There is no large disc herniation Impression 1. No acute intracranial hemorrhage 2. No acute cervical spine fracture This dictation was created with voice recognition software. While attempts have been made to review t (more content not included)... Normal [facility] MAGNESIUMon 10-15-2022 MAGNESIUM Normal [facility] Comment on above: Order Comment: Relea se to patient->Immediate Performed By: #### L AB62, [id number], [id number] #### [facility] [address] [place] [address] Magnesium [Mass/Vol] 2.1 mg/dL Normal [facility] Comment on above: Order Comment: Relea se to patient->Immediate Performed By: #### L AB62, [id number], LAB15 #### [facility] [address] [place] [address] SERUM TOX SCREENon 3 ACETAMINOPHEN LEVEL Abnormal [facility] Comment on above: Order Comment: Salic ylate Therapeutic Range: 20-25 mg/dL Acetaminophen Therapeutic Range:10.00-30.00 ug/mL Release to patient->Immediate Performed By: #### L AB349 #### [facility] [address] [place] [address] ACETAMINOPHEN LEVEL <10 Normal [facility] Comment on above: Order Comment: Salic ylate Therapeutic Range: 20-25 mg/dL Acetaminophen Therapeutic Range:10.00-30.00 ug/mL Release to patient->Immediate Performed By: #### L AB349 #### [facility] [address] [place] [address] ETHANOL Abnormal [facility] Comment on above: Order Comment: Salic ylate Therapeutic Range: 20-25 mg/dL Acetaminophen Therapeutic Range:10.00-30.00 ug/mL Release to patient->Immediate Performed By: #### L AB349 #### [facility] [address] [place] [address] Ethanol [Mass/Vol] 157 mg/dL Normal [facility] Comment on above: Order Comment: Salic ylate Therapeutic Range: 20-25 mg/dL Acetaminophen Therapeutic Range:10.00-30.00 ug/mL Release to patient->Immediate Performed By: #### L AB349 #### [facility] [address] [place] [address] SALICYLATE ([facility]/IRS) Abnormal [facility] Comment on above: Order Comment: Salic ylate Therapeutic Range: 20-25 mg/dL Acetaminophen Therapeutic Range:10.00-30.00 ug/mL Release to patient->Immediate Performed By: #### L AB349 #### [facility] [address] [place] [address] SALICYLATE ([facility]/IRS) <2.5 Normal [facility] Comment on above: Order Comment: Salic ylate Therapeutic Range: 20-25 mg/dL Acetaminophen Therapeutic Range:10.00-30.00 ug/mL Release to patient->Immediate Performed By: #### L AB349 #### [facility] [address] [place] [address] ED NOTESon 09-18-2022 [facility] Ed Note ED Note: Last filed note HNO ID: [id number] Author: Carmen Pineda RN Service: Emergency Medicine Author Type: Registered Nurse Filed: 09/17/222222 Note Text: Patient discharged with police. Normal [facility] Ed Note Normal [facility] Ed Note Normal [facility] Ed Note ED Note: Last filed note HNO ID: [id number] Author: Pratibha Dumont RN Service: ? Author Type: Registered Nurse Filed: 09/17/222209 Note Text: [employer] Police states they will take pt to fpc when discharged. Dr. Canada notified. Normal [facility] ED PROVIDER NOTESon 09-19-19 [facility] Ed Provider Note Normal [facility] ED NOTESon 09-17-2022 [facility] Ed Note ED Note: Last filed note HNO ID: [id number] Author: Carmen Pineda RN Service: Emergency Medicine Author Type: Registered Nurse Filed: 09/17/222143 Note Text: Security to bedside. Patient now cussing at security. Normal [facility] Ed Note Normal [facility] Ed Note Normal [facility] Ed Note ED Note: Last filed note HNO ID: [id number] Author: Pratibha Dumont RN Service: ? Author Type: Registered Nurse Filed: 09/17/221926 Note Text: Bed: GRN17 Expected date: Expected time: Means of arrival: Comments: Lupis Normal [facility] ED PROVIDER NOTESon 09-18-19 [facility] Ed Provider Note Normal [facility] ED TRIAGEon 09-17-2022 [facility] Ed Triage Note Normal [facility] ETHANOLon 09-17-2022 COMMENT For Medical Purposes only. Abnormal [facility] Comment on above: Performed By: #### L AB175 ####[place] [phone] ETHANOL, SERUM/PLASMA 206 mg/dL High <10 [place] Comment on above: Performed By: #### L AB175 ####[place] [phone] Ethanol [Mass/Vol] 206 mg/dL High NINF - 10 mg/dL [facility] Interpretation and review of laboratory results Abnormal [facility] For Medical Purposes only. [facility] CBC W/DIFFon 09-12-2022 BASOPHILS ABS AUTO Normal [facility] Comment on above: Order Comment: Relea se to patient->Immediate Performed By: #### L AB293 ####[facility] [id number] [place] [address] BASOPHILS ABS AUTO 0.1 K/uL Normal 0.0-0.1 [facility] Comment on above: Order Comment: Relea se to patient->Immediate Performed By: #### L AB293 ####[facility] [id number] [place] [address] BASOPHILS RELATIVE AUTO Normal [facility] Comment on above: Order Comment: Relea se to patient->Immediate Performed By: #### L AB293 ####[address] [address] Basophils/100 WBC (Bld) 0.7 % Normal [facility] Comment on above: Order Comment: Relea se to patient->Immediate Performed By: #### L AB293 ####[address] [address] EOSINOPHIL ABS AUTO Normal 0.0-0.4 [facility] Comment on above: Order Comment: Relea se to patient->Immediate Performed By: #### L AB293 ####[address] [address] EOSINOPHIL ABS AUTO 0.1 Normal [facility] Comment on above: Order Comment: Relea se to patient->Immediate Performed By: #### L AB293 ####[address] [address] EOSINOPHILS RELATIVE AUTO Normal [facility] Comment on above: Order Comment: Relea se to patient->Immediate Performed By: #### L AB293 ####[address] [address] Eosinophils/100 WBC (Bld) 0.5 % Normal [facility] Comment on above: Order Comment: Relea se to patient->Immediate Performed By: #### L AB293 ####[address] [address] Erythrocyte distribution width (RBC) [Ratio] 13.3 % Normal 11.7-15.2 [facility] Comment on above: Order Comment: Relea se to patient->Immediate Performed By: #### L AB293 ####[address] [address] Hematocrit (Bld) [Volume fraction] 43.2 % Normal 39.0-51.5 [facility] Comment on above: Order Comment: Relea se to patient->Immediate Performed By: #### L AB293 ####[address] [address] HEMATOCRIT BLOOD Normal [facility] Comment on above: Order Comment: Relea se to patient->Immediate Performed By: #### L AB293 ####[place] [address] [place] [address] HEMOGLOBIN Normal [facility] Comment on above: Order Comment: Relea se to patient->Immediate Performed By: #### L AB293 ####[address] [place] [address] Hemoglobin (Bld) [Mass/Vol] 15.3 g/dL Normal 13.1-17.6 [facility] Comment on above: Order Comment: Relea se to patient->Immediate Performed By: #### L AB293 ####[address] [place] [address] LYMPHOCYTE ABS AUTO Normal [facility] Comment on above: Order Comment: Relea se to patient->Immediate Performed By: #### L AB293 ####[address] [place] [address] Lymphocytes (Bld) [#/Vol] 2.4 10*3/uL Normal 0.8-3.6 [facility] Comment on above: Order Comment: Relea se to patient->Immediate Performed By: #### L AB293 ####[address] [place] [address] LYMPHOCYTES RELATIVE AUTO Normal [facility] Comment on above: Order Comment: Relea se to patient->Immediate Performed By: #### L AB293 ####[address] [place] [address] Lymphocytes/100 WBC (Bld) 21.5 % Normal [facility] Comment on above: Order Comment: Relea se to patient->Immediate Performed By: #### L AB293 ####[address] [place] [address] MCH Normal [facility] Comment on above: Order Comment: Relea se to patient->Immediate Performed By: #### L AB293 ####[place] [address] [place] [address] MCH (RBC) [Entitic mass] 29.9 pg Normal 28.4-33.4 [facility] Comment on above: Order Comment: Relea se to patient->Immediate Performed By: #### L AB293 ####[address] [place] [address] MCHC Normal [facility] Comment on above: Order Comment: Relea se to patient->Immediate Performed By: #### L AB293 ####[address] [place] [address] MCHC (RBC) [Mass/Vol] 35.5 g/dL Normal 31.1-37.0 [facility] Comment on above: Order Comment: Relea se to patient->Immediate Performed By: #### L AB293 ####[address] [place] [address] MCV Normal [facility] Comment on above: Order Comment: Relea se to patient->Immediate Performed By: #### L AB293 ####[address] [place] [address] MCV (RBC) [Entitic vol] 84.1 fL Normal 85.0-99.0 [facility] Comment on above: Order Comment: Relea se to patient->Immediate Performed By: #### L AB293 ####[address] [place] [address] MONOCYTE ABS AUTO Normal [facility] Comment on above: Order Comment: Relea se to patient->Immediate Performed By: #### L AB293 ####[address] [place] [address] Monocytes (Bld) [#/Vol] 1.4 10*3/uL Normal 0.3-0.9 [facility] Comment on above: Order Comment: Relea se to patient->Immediate Performed By: #### L AB293 ####[address] [place] [address] MONOCYTES RELATIVE AUTO Normal [facility] Comment on above: Order Comment: Relea se to patient->Immediate Performed By: #### L AB293 ####[address] [address] Monocytes/100 WBC (Bld) 12.3 % Normal [facility] Comment on above: Order Comment: Relea se to patient->Immediate Performed By: #### L AB293 ####[facility] [id number] [place] [address] NEUTROPHIL ABS AUTO Normal [facility] Comment on above: Order Comment: Relea se to patient->Immediate Performed By: #### L AB293 ####[facility] [id number] [place] [address] NEUTROPHIL ABS AUTO 7.1 K/uL Normal 2.0-7.3 [facility] Comment on above: Order Comment: Relea se to patient->Immediate Performed By: #### L AB293 ####[facility] [id number] [place] [address] NEUTROPHILS RELATIVE AUTO Normal [facility] Comment on above: Order Comment: Relea se to patient->Immediate Performed By: #### L AB293 ####[place] [address] [place] [address] Neutrophils/100 WBC (Bld) 65.0 % Normal [facility] Comment on above: Order Comment: Relea se to patient->Immediate Performed By: #### L AB293 ####[place] [address] [place] [address] PLATELET COUNT Normal [facility] Comment on above: Order Comment: Relea se to patient->Immediate Performed By: #### L AB293 ####[facility] [id number] [place] [address] Platelets (Bld) [#/Vol] 298 10*3/uL Normal 154-393 [facility] Comment on above: Order Comment: Relea se to patient->Immediate Performed By: #### L AB293 ####[facility] [id number] [place] [address] RBC (Bld) [#/Vol] 5.13 10*6/uL Normal 4.30-5.86 [facility] Comment on above: Order Comment: Relea se to patient->Immediate Performed By: #### L AB293 ####[facility] [id number] [place] [address] RDW Normal [facility] Comment on above: Order Comment: Relea se to patient->Immediate Performed By: #### L AB293 ####[facility] [id number] [place] [address] RED BLOOD CELL COUNT Normal [facility] Comment on above: Order Comment: Relea se to patient->Immediate Performed By: #### L AB293 ####[facility] [id number] [place] [address] WBC (Bld) [#/Vol] 11.0 10*3/uL Normal 4.0-10.5 [facility] Comment on above: Order Comment: Relea se to patient->Immediate Performed By: #### L AB293 ####[facility] [id number] [place], [place] [address] [address] WHITE BLOOD CELL COUNT Normal [facility] Comment on above: Order Comment: Relea se to patient->Immediate Performed By: #### L AB293 ####[facility] [id number] [place], [place] [address] [address] COMPLETE BLOOD COUNTon 09-12 Erythrocyte distribution width (RBC) [Ratio] 12.8 % Normal <=15.0 [facility] Comment on above: Performed By: #### L AB118 ####[place] [phone] Performed By: #### L AB119 ####[place] [phone] Hematocrit (Bld) [Volume fraction] 40.5 % Normal 37.5-51.0 [facility] Comment on above: Performed By: #### L AB118 ####[place] [phone] Performed By: #### L AB119 ####[place] [phone] Hemoglobin (Bld) [Mass/Vol] 14.4 g/dL Normal 13.0-17.7 [facility] Comment on above: Performed By: #### L AB118 ####[place] [phone] Performed By: #### L AB119 ####[place] [phone] MCH (RBC) [Entitic mass] 29.7 pg Normal 26.0-34.0 [facility] Comment on above: Performed By: #### L AB118 ####[place] [phone] Performed By: #### L AB119 ####[place] [phone] MCHC (RBC) [Mass/Vol] 35.6 g/dL High 30.7-35.5 [place] Comment on above: Performed By: #### L AB118 ####[place] [phone] Performed By: #### L AB119 ####[place] [phone] MCV (RBC) [Entitic vol] 83.5 fL Normal 80.0-100.0 [facility] Comment on above: Performed By: #### L AB118 ####[place] [phone] Performed By: #### L AB119 ####[place] [phone] MEAN PLATELET VOLUME (FL) BY AUTOMATED COUNT 8.1 fL Normal 7.2-11.7 [facility] Comment on above: Performed By: #### L AB118 ####[place] [phone] Performed By: #### L AB119 ####[place] [phone] PLATELETS (10*3/UL) BY AUTOMATED COUNT 281 K/uL Normal 140-400 [facility] Comment on above: Performed By: #### L AB118 ####[place] [phone] Performed By: #### L AB119 ####[place] [phone] RBC (Bld) [#/Vol] 4.85 10*6/uL Normal 4.14-5.80 [facility] Comment on above: Performed By: #### L AB118 ####[place] [phone] Performed By: #### L AB119 ####[place] [phone] TO SCAN RESULT USE SCAN ICON Normal [facility] Comment on above: Performed By: #### L AB118 ####[place], [place] [phone] Performed By: #### L [id number] ####[place] [phone] WBC (Bld) [#/Vol] 8.6 10*3/uL Normal 3.5-10.9 [facility] Comment on above: Performed By: #### L [id number] ####[place] [phone] Performed By: #### L [id number] ####[place] [phone] COMPLETE BLOOD COUNT WITH DI FFERENTIALon 09-12-2022 BASOPHILS ABSOLUTE COUNT (10*3/UL) BY AUTOMATED COUNT 0.0 K/uL Normal 0.0-0.3 [facility] Comment on above: Performed By: #### L [id number] ####[place] [phone] BASOPHILS RELATIVE PERCENT BY AUTOMATED COUNT 0.3 % Normal 0.0-2.0 [facility] Comment on above: Performed By: #### L [id number] ####[place] [phone] Eosinophils (Bld) [#/Vol] 0.2 10*3/uL Normal 0.0-0.5 [facility] Comment on above: Performed By: #### L [id number] ####[place] [phone] EOSINOPHILS RELATIVE PERCENT BY AUTOMATED COUNT 2.0 % Normal 0.0-5.0 [facility] Comment on above: Performed By: #### L [id number] ####[place] [phone] Immature granulocytes (Bld) [#/Vol] 0.0 10*3/uL Normal 0.0-0.1 [facility] Comment on above: Performed By: #### L [id number] ####[place] [phone] Immature granulocytes/100 WBC (Bld) 0.5 % Normal <1.0 [facility] Comment on above: Performed By: #### L [id number] ####[place] [phone] LYMPHOCYTES ABSOLUTE COUNT (10*3/UL) BY AUTOMATED COUNT 2.2 K/uL Normal 0.9-4.1 [facility] Comment on above: Performed By: #### L [id number] ####[place] [phone] LYMPHOCYTES RELATIVE PERCENT BY AUTOMATED COUNT 25.4 % Normal 14.0-51.0 [facility] Comment on above: Performed By: #### L [id number] ####[place] [phone] MONOCYTES ABSOLUTE COUNT (10*3/UL) BY AUTOMATED COUNT 1.0 K/uL Normal 0.2-1.0 [facility] Comment on above: Performed By: #### L [id number] ####[place] [phone] MONOCYTES RELATIVE PERCENT BY AUTOMATED COUNT 11.8 % Normal 4.0-12.0 [facility] Comment on above: Performed By: #### L [id number] ####[place] [phone] NEUTROPHILS ABSOLUTE COUNT (10*3/UL) BY AUTOMATED COUNT 5.2 K/uL Normal 1.8-7.5 [facility] Comment on above: Performed By: #### L [id number] ####[place] [phone] NEUTROPHILS RELATIVE PERCENT BY AUTOMATED COUNT 60.0 % Normal 42.0-80.0 [facility] Comment on above: Performed By: #### L [id number] ####[place] [phone] Basophils (Bld) [#/Vol] 0.0 10*3/uL 0.0 - 0.3 K/uL [facility] Basophils/100 WBC (Bld) 0.3 % 0.0 - 2.0 % [facility] Eosinophils (Bld) [#/Vol] 0.2 10*3/uL 0.0 - 0.5 K/uL [facility] Eosinophils/100 WBC (Bld) 2.0 % 0.0 - 5.0 % [facility] Immature granulocytes (Bld) [#/Vol] 0.0 10*3/uL 0.0 - 0.1 K/uL [facility] Immature granulocytes/100 WBC (Bld) 0.5 % NINF - 1.0 % [facility] Lymphocytes (Bld) [#/Vol] 2.2 10*3/uL 0.9 - 4.1 K/uL [facility] Lymphocytes/100 WBC (Bld) 25.4 % 14.0 - 51.0 % [facility] Monocytes (Bld) [#/Vol] 1.0 10*3/uL 0.2 - 1.0 K/uL [facility] Monocytes/100 WBC (Bld) 11.8 % 4.0 - 12.0 % [facility] Neutrophils (Bld) [#/Vol] 5.2 10*3/uL 1.8 - 7.5 K/uL [facility] Neutrophils/100 WBC (Bld) 60.0 % 42.0 - 80.0 % [facility] COMPREHENSIVE METABOLIC PANE Dilip 09-12-2022 Albumin [Mass/Vol] 4.0 g/dL Normal 3.5-5.2 [facility] Comment on above: Performed By: #### L [id number] ####[place] [phone] Albumin/Globulin [Mass ratio] 1.4 {ratio} Normal 0.8-2.6 [facility] Comment on above: Performed By: #### L [id number] ####[place] [phone] ALP [Catalytic activity/Vol] 109 U/L Normal 23-144 [facility] Comment on above: Performed By: #### L [id number] ####[place] [phone] ALT [Catalytic activity/Vol] 34 U/L Normal 0-60 [facility] Comment on above: Performed By: #### L [id number] ####[place] [phone] Anion gap [Moles/Vol] 11 mmol/L Normal 5-15 [facility] Comment on above: Performed By: #### L [id number] ####[place] [phone] AST [Catalytic activity/Vol] 25 U/L Normal 0-46 [facility] Comment on above: Performed By: #### L [id number] ####[place] [phone] Bilirubin [Mass/Vol] 0.6 mg/dL Normal 0.0-1.2 [facility] Comment on above: Performed By: #### L [id number] ####[place] [phone] Calcium [Mass/Vol] 8.6 mg/dL Normal 8.5-10.5 [facility] Comment on above: Performed By: #### L [id number] ####[place] [phone] Chloride [Moles/Vol] 104 mmol/L Normal 96-110 [facility] Comment on above: Performed By: #### L [id number] ####[place] [phone] CO2 [Moles/Vol] 22 mmol/L Normal 19-32 [facility] Comment on above: Performed By: #### L [id number] ####[place] [phone] Creatinine [Mass/Vol] 1.0 mg/dL Normal 0.5-1.4 [facility] Comment on above: Performed By: #### L [id number] ####[place] [phone] ESTIMATED GFR 99 mL/min/1.73m*2 Normal >=60 [facility] Comment on above: Performed By: #### L [id number] ####[place] [phone] Globulin (S) [Mass/Vol] 2.9 g/dL Normal 1.9-3.6 [facility] Comment on above: Performed By: #### L [id number] ####[place] [phone] Glucose [Mass/Vol] 90 mg/dL Normal 70-99 [facility] Comment on above: Performed By: #### L [id number] ####[place] [phone] Potassium [Moles/Vol] 3.6 mmol/L Normal 3.4-5.3 [facility] Comment on above: Performed By: #### L [id number] ####[place] [phone] Protein [Mass/Vol] 6.9 g/dL Normal 6.0-8.3 [facility] Comment on above: Performed By: #### L [id number] ####[place] [phone] Sodium [Moles/Vol] 137 mmol/L Normal 135-148 [facility] Comment on above: Performed By: #### L [id number] ####[facility] [place] [phone] Urea nitrogen [Mass/Vol] 24 mg/dL Normal 3-29 [facility] Comment on above: Performed By: #### L [id number] ####[place] [phone] Urea nitrogen/Creatinine [Mass ratio] 24 mg/mg Normal 7-25 [facility] Comment on above: Performed By: #### L [id number] ####[place] [phone] Albumin [Mass/Vol] 4.0 g/dL 3.5 - 5.2 g/dL [facility] ALP [Catalytic activity/Vol] 109 U/L 23 - 144 U/L [facility] ALT [Catalytic activity/Vol] 34 U/L 0 - 60 U/L [facility] Amino beta guanidinopropionate Ql (P) 1.4 0.8 - 2.6 [facility] Anion gap [Moles/Vol] 11 mmol/L 5 - [address] [facility] AST [Catalytic activity/Vol] 25 U/L 0 - 46 U/L [facility] Bilirubin [Mass/Vol] 0.6 mg/dL 0.0 - 1 .2 mg/dL [facility] Calcium [Mass/Vol] 8.6 mg/dL 8.5 - 10. 5 mg/dL [facility] Chloride [Moles/Vol] 104 mmol/L [facility] CO2 [Moles/Vol] 22 mmol/L [facility] Creatinine [Mass/Vol] 1.0 mg/dL 0.5 - 1.4 mg/dL [facility] GFR/1.73 sq M.predicted MDRD (S/P/Bld) [Vol rate/Area] 99 mL/min/{1.73_m2} - PINF [facility] Globulin (S) [Mass/Vol] 2.9 g/dL 1.9 - 3.6 g/dL [facility] Glucose [Mass/Vol] 90 mg/dL 70 - 99 mg/dL [facility] Potassium [Moles/Vol] 3.6 mmol/L Pre [facility] Protein [Mass/Vol] 6.9 g/dL 6.0 - 8.3 g/dL [facility] Sodium [Moles/Vol] 137 mmol/L [facility] Urea nitrogen [Mass/Vol] 24 mg/dL 3 - 29 mg/dL [facility] Urea nitrogen/Creatinine [Mass ratio] 24 mg/mg 7 - 25 [facility] AG RATIO Normal [facility] Comment on above: Order Comment: Relea se to patient->Immediate Performed By: #### L [id number], [id number] #### [facility] [address] [place] [address] ALBUMIN Normal [facility] Comment on above: Order Comment: Relea se to patient->Immediate Performed By: #### L [id number], [id number] #### [facility] [address] [place] [address] Albumin [Mass/Vol] 4.5 g/dL Normal 3.5-5.7 [facility] Comment on above: Order Comment: Relea se to patient->Immediate Performed By: #### L [id number], [id number] #### [facility] [address] [place] [address] Albumin/Globulin [Mass ratio] 1.7 {ratio} Normal 1.0-2.0 [facility] Comment on above: Order Comment: Relea se to patient->Immediate Performed By: #### L [id number], [id number] #### [facility] [address] [place] [address] ALKALINE PHOSPHATASE Normal [facility] Comment on above: Order Comment: Relea se to patient->Immediate Performed By: #### L [id number], [id number] #### [facility] [address] [place] [address] ALP [Catalytic activity/Vol] 100 U/L Normal 34-104 [facility] Comment on above: Order Comment: Relea se to patient->Immediate Performed By: #### L [id number], [id number] #### [facility] [address] [place] [address] ALT (SGPT) Normal [facility] Comment on above: Order Comment: Relea se to patient->Immediate Performed By: #### L [id number], [id number] #### [facility] [address] [place] [address] ALT [Catalytic activity/Vol] 36 U/L Normal 7-52 [facility] Comment on above: Order Comment: Relea se to patient->Immediate Performed By: #### L [id number], [id number] #### [facility] [address] [place] [address] ANION GAP Normal [facility] Comment on above: Order Comment: Relea se to patient->Immediate Performed By: #### L [id number], [id number] #### [facility] [address] [place] [address] Anion gap [Moles/Vol] 11 mmol/L Normal 7-16 [facility] Comment on above: Order Comment: Relea se to patient->Immediate Performed By: #### L [id number], [id number] #### [facility] [address] [place] [address] AST (SGOT) Normal [facility] Comment on above: Order Comment: Relea se to patient->Immediate Performed By: #### L [id number], [id number] #### [facility] [address] [place] [address] AST [Catalytic activity/Vol] 20 U/L Normal 13-39 [facility] Comment on above: Order Comment: Relea se to patient->Immediate Performed By: #### L [id number], [id number] #### [facility] [address] [place] [address] Bilirubin [Mass/Vol] 1.2 mg/dL Normal 0.3-1.0 [facility] Comment on above: Order Comment: Relea se to patient->Immediate Performed By: #### L [id number], [id number] #### [facility] [address] [place] [address] BLOOD UREA NITROGEN Normal [facility] Comment on above: Order Comment: Relea se to patient->Immediate Performed By: #### L [id number], [id number] #### [facility] [address] [place] [address] CALCIUM Normal [facility] Comment on above: Order Comment: Relea se to patient->Immediate Performed By: #### L [id number], [id number] #### [facility] [address] [place] [address] Calcium [Mass/Vol] 9.2 mg/dL Normal 8.6-10.2 [facility] Comment on above: Order Comment: Relea se to patient->Immediate Performed By: #### L [id number], [id number] #### [facility] [address] [place] [address] CARBON DIOXIDE Normal [facility] Comment on above: Order Comment: Relea se to patient->Immediate Performed By: #### L [id number], [id number] #### [facility] [address] [place] [address] CHLORIDE Normal [facility] Comment on above: Order Comment: Relea se to patient->Immediate Performed By: #### L [id number], [id number] #### [facility] [address] [place] [address] Chloride [Moles/Vol] 103 mmol/L Normal 98-107 [facility] Comment on above: Order Comment: Relea se to patient->Immediate Performed By: #### L [id number], [id number] #### [facility] [address] [place] [address] CO2 [Moles/Vol] 20 mmol/L Normal 21-31 [facility] Comment on above: Order Comment: Relea se to patient->Immediate Performed By: #### L [id number], [id number] #### [facility] [address] [place] [address] CREATININE Normal [facility] Comment on above: Order Comment: Relea se to patient->Immediate Performed By: #### L [id number], [id number] #### [facility] [address] [place] [address] Creatinine [Mass/Vol] 1.17 mg/dL Normal 0.7-1.3 [facility] Comment on above: Order Comment: Relea se to patient->Immediate Performed By: #### L [id number], [id number] #### [facility] [address] [place] [address] GFR MALE Normal [facility] Comment on above: Order Comment: Relea se to patient->Immediate Result Comment: Repo rted eGFR is based on the CKD-EPI 2020 equation that does not use a race coefficient. Performed By: #### L [id number], [id number] #### [facility] [address] [place] [address] GFR/1.73 sq M.predicted among non-blacks MDRD (S/P/Bld) [Vol rate/Area] 82 mL/min/{1.73_m2} Normal >90 [facility] Comment on above: Order Comment: Relea se to patient->Immediate Performed By: #### L [id number], [id number] #### [facility] [address] [place] [address] GLOBULIN Normal [facility] Comment on above: Order Comment: Relea se to patient->Immediate Performed By: #### L [id number], [id number] #### [facility] [address] [place] [address] Globulin (S) [Mass/Vol] 2.7 g/dL Normal 2.6-4.2 [facility] Comment on above: Order Comment: Relea se to patient->Immediate Performed By: #### L [id number], [id number] #### [facility] [address] [place] [address] GLUCOSE Normal [facility] Comment on above: Order Comment: Relea se to patient->Immediate Performed By: #### L [id number], [id number] #### [facility] [address] [place] [address] Glucose [Mass/Vol] 113 mg/dL Normal 74-109 [facility] Comment on above: Order Comment: Relea se to patient->Immediate Performed By: #### L [id number], [id number] #### [facility] [address] [place] [address] POTASSIUM Normal [facility] Comment on above: Order Comment: Relea se to patient->Immediate Performed By: #### L [id number], [id number] #### [facility] [address] [place] [address] Potassium [Moles/Vol] 3.7 mmol/L Normal 3.5-5.1 [facility] Comment on above: Order Comment: Relea se to patient->Immediate Performed By: #### L [id number], [id number] #### [facility] [address] [place] [address] Protein [Mass/Vol] 7.2 g/dL Normal 6.0-8.3 [facility] Comment on above: Order Comment: Relea se to patient->Immediate Performed By: #### L [id number], [id number] #### [facility] [address] [place] [address] PROTEIN, TOTAL Normal [facility] Comment on above: Order Comment: Relea se to patient->Immediate Performed By: #### L [id number], [id number] #### [facility] [address] [place] [address] SODIUM Normal [facility] Comment on above: Order Comment: Relea se to patient->Immediate Performed By: #### L [id number], [id number] #### [facility] [address] [place] [address] Sodium [Moles/Vol] 134 mmol/L Normal 136-145 [facility] Comment on above: Order Comment: Relea se to patient->Immediate Performed By: #### L [id number], [id number] #### [facility] [address] [place] [address] TOTAL BILIRUBIN Normal [facility] Comment on above: Order Comment: Relea se to patient->Immediate Performed By: #### L [id number], [id number] #### [facility] [address] [place] [address] Urea nitrogen [Mass/Vol] 25 mg/dL Normal 7-25 [facility] Comment on above: Order Comment: Relea se to patient->Immediate Performed By: #### L [id number], [id number] #### [facility] [address] [place] [address] ED NOTESon 09-12-2022 [facility] Ed Note Normal [facility] Ed Note Normal [facility] Ed Note ED Note: Last filed note HNO ID: [id number] Author: Karissa Alejandro Service: Emergency Medicine Author Type: Registered Nurse Filed: 09/12/22 0244 Note Text: Pt stepped out of etc Normal [facility] ED PROVIDER NOTESon 09-13-19 [facility] Ed Provider Note Normal [facility] Ed Provider Note Normal [facility] ED Provider Noteson 09-13-19 ED Provider Notes Encounter Department : [facility] ED Provider Notes by Mike Lopez DO at 09/11/2022 11:07 PM Author: Eusebia Abdirvice: Emergency MedicineAuthor Type: Resident Filed: 09/12/2022 12:41 AMDate of Service: 09/11/2022 11:07 PMStatus: Signed Parts Data Writer: Mike Lopez DO (Resident)Cosigner: Jae Garcia MD at 09/12/2022 2:24 AM CHIEF COMPLAINT Chief Complaint Patient presents with -Drug / Alcohol Assessment TRIAGE NOTE: Kaye Dobbs RN 09/11/2022 10:55 PM Signed Pt to ED via medic with c/o alcohol abuse and meth use over the last 4 days resulting in insomnia and loss of appetite. Pt reports calling medics because he's looking to get into rehab. Pt denies drinking daily. Pt denies SI/HI. Pt anxious and tearful on arrival. HPI Mckinley Roman is a 37 y.o. male past medical history of alcohol abuse and polysubstance abuse with last alcohol consumption being a bottle with mild around 4 days ago and off-and-on meth use starting 4 days ago in bed GVEDB12/B12 who presents to the ED with chief complaint of homelessness. He denies SI, HI, or AVH. He says that he has been out of his Effexor for the last 5 days. He is here because he wants to talk to the behavioral health team for assistance with his substance abuse. Denies fever, chills, chest pain shortness of breath, extremity pain, hematuria, dysuria, or recent illness. Of note, the patient makes no mention of loss of appetite and says that he is actually hungry. PERTINENT REVIEW OF SYSTEMS Endorses insomnia. Denies fever, chills, chest pain, shortness of breath, extremity, hematuria, dysuria, recent illness, SI, HI, or AVH. PAST MEDICAL HISTORY / FAMILY HISTORY Past Medical History: DiagnosisDate -Alcoholic (HCC) -Anxiety -Major depressive disorder No family history on file. Above past medical conditions reviewed and verified by me. SOCIAL HISTORY Social History Socioeconomic History -Marital status:Single Tobacco Use -Smoking status:Some Days Types:Cigarettes -Smokeless tobacco:Never Vaping Use -Vaping Use:Some days Substance and Sexual Activity -Alcohol use:Yes Comment: fifth of whiskey a day -Drug use:Yes Types:Methamphetamines -Sexual activity:Yes Above social elements reviewed and verified by me. SURGICAL HISTORY History reviewed. No pertinent surgical history. CURRENT MEDICATIONS Current Facility-Administered Medications MedicationDoseRouteFrequ encyProviderLast RateLast Admin -acetaminophen (TYLENOL) tablet 1,000 mg 1,000 mgOralONCEGrant Snow, DO -hydrOXYzine pamoate (VISTARIL) capsule 25 mg 25 mgOralONCEGrant Snow, DO -venlafaxine (EFFEXOR) tablet 100 mg 100 mgOralONCEGrant Snow, DO Current Outpatient Medications MedicationSigDispenseRef ill -cetirizine (ZYRTEC) 10 mg tabletTake 1 tablet (10 mg total) by mouth daily. -fluticasone propionate (FLONASE) 50 mcg/actuation nasal spray1 spray into nostril(s) every morning. -hydrOXYzine pamoate (VISTARIL) 50 mg capsuleTake 1 capsule (50 mg total) by mouth 3 times a day as needed. -traZODone (DESYREL) 50 mg tabletTake 1 tablet (50 mg total) by mouth at bedtime. -venlafaxine (EFFEXOR) 100 mg tabletTake 225 mg by mouth once. ALLERGIES No Known Allergies PERTINENT PHYSICAL EXAM VITAL SIGNS: ED Triage Vitals [09/11/222254] BP119/84 Temp98.4 ?F (36.9 ?C) Pulse84 Resp18 GxX562 % Lolivw924 lb (106.6 kg) Alexander Coma Scale Score15 BMI (Calculated)32.8 Constitutional: Well developed, Well nourished, in no acute distress, nontoxic in appearance. HENT: Atraumatic, Normocephalic. Bilateral external ears normal, Nose normal, Oropharynx moist Eyes: PERRL, EOMI, No discharge, Conjunctiva normal, No scleral icterus. Cardiovascular: Regular rate and rhythm. 2+ radial pulses. Thorax AND Lungs: No respiratory distress, normal respiratory effort. Clear to auscultation bilaterally. No wheezing, rhonchi, or crackles. Chest wall nontender. Skin: Warm, dry. No rash, erythema noted to the dorsum of the fingers and hands bilaterally. Abdomen: Soft, nontender, nondistended. Musculoskeletal: -Neck: Normal range of motion, trachea midline. -Extremities: No edema. No major deformities noted. Moving all extremities appropriately. Neurologic: Alert and oriented x3. Cranial nerves grossly intact. No focal deficits noted. Psychiatric: Affect and mood appropriate for situation. SI absent. HI absent. AVH absent. EKG No results found for this visit on 09/11/22. LAB RESULTS Normal labs (listed in bold) and specific abnormal labs include: CBC W/DIFF - Abnormal; Notable for the following components: ResultValueRef RangeStatus WBC11.0 (*)4.0 - 10.5 K/uLFinal MCV84.1 (*)85.0 - 99.0 flFinal Monocytes Absolute1.4 (*)0.3 - 0.9 K/uLFinal All other components within normal limits COMPREHENSIVE METABOLIC PANEL - Abnormal; Notable for the following components: Kiikej792 (*)136 - 145 mmol/LFinal CO220 (*)21 - 31 mmol/LFinal (more content not included)... Normal [facility] ED Provider Notes Encounter Department : [facility] ED Provider Notes by Jae Garcia MD at 09/11/2022 10:53 PM Author: VINEET Yanezervice: Emergency MedicineAuthor Type: ED Physician Filed: 09/12/2022 1:06 AMDate of Service: 09/11/2022 10:53 PMStatus: Signed Parts Data Writer: Jae Garcia MD (ED Physician) I have personally seen and examined this patient. I have fully participated in the care of this patient. I have reviewed and agree with all pertinent clinical information including history, physical exam, labs, radiographic studies and the plan. I have also reviewed and agree with the medications, allergies and past medical history sections for this patient. I saw and evaluated the patient and have directed the plan of care. I have discussed with the resident Dr. Mike Lopez and agree with the findings and plan. FINAL IMPRESSION(S) ICD-10-CM 1.Polysubstance abuse (HCC) F19.10 DISPOSITION PLAN Patient discharged from ED. DISCHARGE MEDICATION(S) / CHANGES TO HOME MEDICATIONS Discharge Medication List as of 09/12/2022 12:49 AM CHIEF COMPLAINT Chief Complaint Patient presents with -Drug / Alcohol Assessment TRIAGE NOTE Kaye Dobbs RN 09/11/2022 10:55 PM Signed Pt to ED via medic with c/o alcohol abuse and meth use over the last 4 days resulting in insomnia and loss of appetite. Pt reports calling medics because he's looking to get into rehab. Pt denies drinking daily. Pt denies SI/HI. Pt anxious and tearful on arrival. HPI / RELEVANT PATRICIO Roman is a 37 y.o. male in bed GVEDB12/B12 with past medical history of depression, anxiety, alcohol use, methamphetamine abuse presents ED with concern for polysubstance abuse. Patient states that he was at treatment facility for drugs and alcohol. Patient states that he left 4 days ago and had binge of alcohol as well as methamphetamines. Patient states that last time he used alcohol was 2 days ago and drink from. Patient states that he does drink alcohol daily. Patient states that he has been using meth including today. Patient would like to discontinue alcohol use as well as substance abuse. Patient denying any suicidal homicidal ideation. Patient denying trauma. Patient denying any hallucinations or seizures. Patient is homeless. GARCÍA PORTIONS OF PHYSICAL EXAM ED Triage Vitals [09/11/22 2255] BP119/84 Temp98.4 ?F (36.9 ?C) Pulse84 Resp18 SgX902 % Kjiyjj825 lb (106.6 kg) Alexander Coma Scale Score15 BMI (Calculated)32.8 Physical Exam Vitals and nursing note reviewed. Constitutional: Appearance: Normal appearance. HENT: Head: Normocephalic and atraumatic. Nose: Nose normal. Mouth/Throat: Mouth: Mucous membranes are moist. Pharynx: Oropharynx is clear. Eyes: Extraocular Movements: Extraocular movements intact. Pupils: Pupils are equal, round, and reactive to light. Cardiovascular: Rate and Rhythm: Normal rate and regular rhythm. Pulses: Normal pulses. Heart sounds: Normal heart sounds. Pulmonary: Effort: Pulmonary effort is normal. Breath sounds: Normal breath sounds. Abdominal: General: Bowel sounds are normal. Palpations: Abdomen is soft. Musculoskeletal: General: Normal range of motion. Cervical back: Neck supple. Skin: General: Skin is warm. Capillary Refill: Capillary refill takes less than 2 seconds. Neurological: General: No focal deficit present. Mental Status: He is alert and oriented to person, place, and time. Mental status is at baseline. Cranial Nerves: No cranial nerve deficit. Sensory: No sensory deficit. Motor: No weakness. EKG No results found for this visit on 09/11/22. RADIOLOGY No results found for this visit on 09/11/22. LAB RESULTS CBC W/DIFF - Abnormal; Notable for the following components: ResultValueRef RangeStatus WBC11.0 (*)4.0 - 10.5 K/uLFinal MCV84.1 (*)85.0 - 99.0 flFinal Monocytes Absolute1.4 (*)0.3 - 0.9 K/uLFinal All other components within normal limits COMPREHENSIVE METABOLIC PANEL - Abnormal; Notable for the following components: Vbwukw765 (*)136 - 145 mmol/LFinal CO220 (*)21 - 31 mmol/LFinal Xwvzlth309 (*)74 - 109 mg/dLFinal Total Bilirubin1.2 (*)0.3 - 1.0 mg/dlFinal All other components within normal limits Narrative: KDIGO 2012 GFR Categories Stage Description eGFR (mL/min/1.73m2) G1 Normal or high >=90 G2 Mildly decreased 60-89 G3a Mildly to moderately decreased 45-59 G3b Moderately to severely decreased 30-44 G4 Severely decreased 15-29 G5 Kidney Failure <15 SERUM TOX SCREEN - Abnormal; Notable for the following components: Acetaminophen Level<10 (*)10 - 30 ug/mLFinal Salicylate<2.5 (*)3.0 - 20.0 mg/dLFinal All other components within normal limits Narrative: Salicylate Therapeutic Range: 20-25 mg/dL Acetaminophen Therapeutic Range:10.00-30.00 ug/mL EXTRA TUBE-BLUE DIFFERENTIAL DIAGNOSIS / MEDICAL DECISION MAKING Patient wit (more content not included)... Normal [facility] ED TRIAGEon 09-12-2022 [facility] Ed Triage Note Normal [facility] ETHANOLon 09-12-2022 COMMENT For Medical Purposes only. Normal [facility] Comment on above: Performed By: #### L [id number] ####[place] [phone] ETHANOL (ND), SERUM/PLASMA Not detected [facility] Comment on above: Performed By: #### L [id number] ####[place] [phone] Ethanol [Mass/Vol] Not detected [facility] For Medical Purposes only. [facility] EXTRA TUBE-BLUEon 09-12-2022 EXTRA TUBE Normal [facility] Comment on above: Order Comment: Relea se to patient->Immediate Performed By: #### L [id number] #### [facility] [address] [place] [address] EXTRA TUBE Received Normal [facility] Comment on above: Order Comment: Relea se to patient->Immediate Performed By: #### L [id number] #### [facility] [address] [place] [address] GGTon 09-12-2022 Gamma glutamyl transferase [Catalytic activity/Vol] 92 U/L Normal 0-100 [facility] Comment on above: Performed By: #### L [id number] ####[facility] [phone] Gamma glutamyl transferase [Catalytic activity/Vol] 92 U/L 0 - 100 U/L [facility] Interpretation and review of laboratory results Normal [facility] Laboratory - Hematology and Cell countson 09-12-2022 Erythrocyte distribution width (RBC) [Ratio] 12.8 % NINF - 15.0 % [facility] Hematocrit (Bld) [Volume fraction] 40.5 % 37.5 - 51.0 % [facility] Hemoglobin (Bld) [Mass/Vol] 14.4 g/dL 13.0 - 17.7 g/dL [facility] MCH (RBC) [Entitic mass] 29.7 pg 26.0 - 34.0 pg [facility] MCHC (RBC) [Mass/Vol] 35.6 g/dL High 30.7 - 35.5 g/dL [facility] MCV (RBC) [Entitic vol] 83.5 fL 80.0 - 100.0 fL [facility] Platelet mean volume (Bld) [Entitic vol] 8.1 fL 7.2 - 11.7 fL [facility] Platelets (Bld) [#/Vol] 281 10*3/uL 140 - 400 K/uL [facility] RBC (Bld) [#/Vol] 4.85 10*6/uL [facility] WBC corrected for nucl RBC Auto (Bld) [#/Vol] 8.6 K/uL 3.5 - 10.9 K/uL [facility] MAGNESIUM, SERUMon 3 Magnesium [Mass/Vol] 2.2 mg/dL Normal 1.4-2.5 [facility] Comment on above: Performed By: #### L [id number] ####[facility] [place] [phone] Magnesium [Mass/Vol] 2.2 mg/dL 1.4 - 2 .5 mg/dL [facility] No Panel Informationon 09-12 Interpretation and review of laboratory results Normal [facility] Interpretation and review of laboratory results Abnormal [facility] Scan Result [facility] PHOSPHORUSon 09-12-2022 Phosphate [Mass/Vol] 3.6 mg/dL Normal 2.5-4.5 [facility] Comment on above: Performed By: #### L [id number] ####[place] [phone] Phosphate [Mass/Vol] 3.6 mg/dL 2.5 - 4 .5 mg/dL [facility] PROGRESS NOTESon 09-12-2022 Cosmetologist Authentication Interface Message Text Normal [facility] Cosmetologist Authentication Interface Message Text Normal [facility] SERUM TOX SCREENon ACETAMINOPHEN LEVEL Normal [facility] Comment on above: Order Comment: Salic ylate Therapeutic Range: 20-25 mg/dLAcetaminophen Therapeutic Range:10.00-30.00 ug/mLRelease to patient->Immediate Performed By: #### L [id number] ####[facility] [id number] [place], [place] [address]E.[place] [address] ACETAMINOPHEN LEVEL <10 Normal 10-30 [facility] Comment on above: Order Comment: Salic ylate Therapeutic Range: 20-25 mg/dLAcetaminophen Therapeutic Range:10.00-30.00 ug/mLRelease to patient->Immediate Performed By: #### L [id number] ####[facility] [id number] [place] [address].[place] [address] ETHANOL Normal [facility] Comment on above: Order Comment: Salic ylate Therapeutic Range: 20-25 mg/dLAcetaminophen Therapeutic Range:10.00-30.00 ug/mLRelease to patient->Immediate Performed By: #### L [id number] ####[facility] [id number] [place] [address] Ethanol [Mass/Vol] mg/dL Normal <10 [facility] Comment on above: Order Comment: Salic ylate Therapeutic Range: 20-25 mg/dLAcetaminophen Therapeutic Range:10.00-30.00 ug/mLRelease to patient->Immediate Performed By: #### L [id number] ####[facility] [id number] [place], [place] [address] [address] SALICYLATE ([facility]/IRS) Normal [facility] Comment on above: Order Comment: Salic ylate Therapeutic Range: 20-25 mg/dLAcetaminophen Therapeutic Range:10.00-30.00 ug/mLRelease to patient->Immediate Performed By: #### L [id number] ####[facility] [id number] [place] [address] SALICYLATE ([facility]/IRS) <2.5 Normal 3.0-20.0 [facility] Comment on above: Order Comment: Salic ylate Therapeutic Range: 20-25 mg/dLAcetaminophen Therapeutic Range:10.00-30.00 ug/mLRelease to patient->Immediate Performed By: #### L [id number] ####[facility] [id number] [place] [address] THYROID STIMULATING HORMONEo n 09-12-2022 TSH Qn 1.090 m[IU]/L [facility] TSH 1.090 MCIU/ML Normal 0.400-4.500 [facility] Comment on above: Performed By: #### L [id number] ####[place] [phone] ED NOTESon 09-06-2022 [facility] Ed Note ED Note: Last filed note HNO ID: [id number] Author: Amanda Boggs RN Service: ? Author Type: Registered Nurse Filed: 09/05/222246 Note Text: [facility] Ed Note ED Note: Last filed note HNO ID: [id number] Author: Amanda Boggs RN Service: ? Author Type: Registered Nurse Filed: 09/05/222246 Note Text: Ambulatory to BR with steady gait [facility] Ed Note ED Note: Last filed note HNO ID: [id number] Author: Amanda Boggs RN Service: ? Author Type: Registered Nurse Filed: 09/05/222222 Note Text: MD at bedside [facility] ED PROVIDER NOTESon 09-07-19 [facility] Ed Provider Note [facility] Ed Provider Note [facility] PROGRESS NOTESon 09-06-2022 Cosmetologist Authentication Interface Message Text Sw was asked to put resources in the patient's chart for AoD services and homelessness. listed [employer] [facility] [place] [facility]. Normal [facility] ED NOTESon 09-05-2022 [facility] Ed Note ED Note: Last filed note HNO ID: [id number] Author: Chhaya Newsome RN Service: ? Author Type: Registered Nurse Filed: 09/05/22 6640 Note Text: Bed: O73 Expected date: 09/05/22 Expected time: Means of arrival: Comments: Hold dpd Normal [facility] ED PROVIDER NOTESon 09-06-19 [facility] Ed Provider Note Normal [facility] ED TRIAGEon 09-05-2022 [facility] Ed Triage Note Normal [facility] BASIC METABOLIC PANELon 08-09 Anion gap [Moles/Vol] 13 mmol/L Normal 5-15 [place] Comment on above: Performed By: #### L [id number] ####[place] [phone] Calcium [Mass/Vol] 8.4 mg/dL Low 8.5-10.5 [facility] Comment on above: Performed By: #### L AB064 ####[place] [phone] Chloride [Moles/Vol] 111 mmol/L High 96-110 [facility] Comment on above: Performed By: #### L [id number] ####[place] [phone] CO2 [Moles/Vol] 22 mmol/L Normal 19-32 [facility] Comment on above: Performed By: #### L [id number] ####[place] [phone] Creatinine [Mass/Vol] 1.0 mg/dL Normal 0.5-1.4 [facility] Comment on above: Performed By: #### L AB064 ####[place] [phone] ESTIMATED GFR 99 mL/min/1.73m*2 Normal >=60 [facility] Comment on above: Performed By: #### L [id number] ####[place] [phone] Glucose [Mass/Vol] 102 mg/dL High 70-99 [facility] Comment on above: Performed By: #### L AB064 ####[place] [phone] Potassium [Moles/Vol] 3.8 mmol/L Normal 3.4-5.3 [facility] Comment on above: Performed By: #### L AB064 ####[place] [phone] Sodium [Moles/Vol] 146 mmol/L Normal 135-148 [facility] Comment on above: Performed By: #### L AB064 ####[place] [phone] Urea nitrogen [Mass/Vol] 8 mg/dL Normal 3-29 [facility] Comment on above: Performed By: #### L AB064 ####[place] [phone] Urea nitrogen/Creatinine [Mass ratio] 8 mg/mg Normal 7-25 [facility] Comment on above: Performed By: #### L AB064 ####[place] [phone] COMPLETE BLOOD COUNT WITH DI FFERENTIALon 09-02-2022 BASOPHILS ABSOLUTE COUNT (10*3/UL) BY AUTOMATED COUNT 0.0 K/uL Normal 0.0-0.3 [facility] Comment on above: Performed By: #### L AB119 ####[place] [phone] BASOPHILS RELATIVE PERCENT BY AUTOMATED COUNT 0.6 % Normal 0.0-2.0 [facility] Comment on above: Performed By: #### L AB119 ####[place] [phone] Eosinophils (Bld) [#/Vol] 0.4 10*3/uL Normal 0.0-0.5 [facility] Comment on above: Performed By: #### L AB119 ####[place] [phone] EOSINOPHILS RELATIVE PERCENT BY AUTOMATED COUNT 6.6 % High 0.0-5.0 [facility] Comment on above: Performed By: #### L [id number] ####[place] [phone] Erythrocyte distribution width (RBC) [Ratio] 12.7 % Normal <=15.0 [facility] Comment on above: Performed By: #### L [id number] ####[place] [phone] Hematocrit (Bld) [Volume fraction] 42.8 % Normal 37.5-51.0 [facility] Comment on above: Performed By: #### L [id number] ####[place] [phone] Hemoglobin (Bld) [Mass/Vol] 15.2 g/dL Normal 13.0-17.7 [facility] Comment on above: Performed By: #### L [id number] ####[place] [phone] Immature granulocytes (Bld) [#/Vol] 0.0 10*3/uL Normal 0.0-0.1 [facility] Comment on above: Performed By: #### L [id number] ####[place] [phone] Immature granulocytes/100 WBC (Bld) 0.2 % Normal <1.0 [facility] Comment on above: Performed By: #### L AB119 ####[place] [phone] LYMPHOCYTES ABSOLUTE COUNT (10*3/UL) BY AUTOMATED COUNT 2.6 K/uL Normal 0.9-4.1 [facility] Comment on above: Performed By: #### L AB119 ####[place] [phone] LYMPHOCYTES RELATIVE PERCENT BY AUTOMATED COUNT 40.5 % Normal 14.0-51.0 [facility] Comment on above: Performed By: #### L [id number] ####[place] [phone] MCH (RBC) [Entitic mass] 29.5 pg Normal 26.0-34.0 [facility] Comment on above: Performed By: #### L [id number] ####[place] [phone] MCHC (RBC) [Mass/Vol] 35.5 g/dL Normal 30.7-35.5 [facility] Comment on above: Performed By: #### L [id number] ####[place] [phone] MCV (RBC) [Entitic vol] 83.1 fL Normal 80.0-100.0 [facility] Comment on above: Performed By: #### L [id number] ####[place] [phone] MEAN PLATELET VOLUME (FL) BY AUTOMATED COUNT 8.5 fL Normal 7.2-11.7 [facility] Comment on above: Performed By: #### L [id number] ####[place] [phone] MONOCYTES ABSOLUTE COUNT (10*3/UL) BY AUTOMATED COUNT 0.6 K/uL Normal 0.2-1.0 [facility] Comment on above: Performed By: #### L [id number] ####[place] [phone] MONOCYTES RELATIVE PERCENT BY AUTOMATED COUNT 9.0 % Normal 4.0-12.0 [facility] Comment on above: Performed By: #### L [id number] ####[place] [phone] NEUTROPHILS ABSOLUTE COUNT (10*3/UL) BY AUTOMATED COUNT 2.8 K/uL Normal 1.8-7.5 [facility] Comment on above: Performed By: #### L AB119 ####[place] [phone] NEUTROPHILS RELATIVE PERCENT BY AUTOMATED COUNT 43.1 % Normal 42.0-80.0 [facility] Comment on above: Performed By: #### L [id number] ####[place] [phone] NRBC (PER 100 WBCS) BY AUTOMATED COUNT 0 /100 WBCs Normal <=0 [facility] Comment on above: Performed By: #### L [id number] ####[place] [phone] PLATELETS (10*3/UL) BY AUTOMATED COUNT 279 K/uL Normal 140-400 [facility] Comment on above: Performed By: #### L [id number] ####[place] [phone] RBC (Bld) [#/Vol] 5.15 10*6/uL Normal 4.14-5.80 [facility] Comment on above: Performed By: #### L [id number] ####[place] [phone] TO SCAN RESULT USE SCAN ICON Normal [facility] Comment on above: Performed By: #### L [id number] ####[place] [phone] WBC (Bld) [#/Vol] 6.5 10*3/uL Normal 3.5-10.9 [facility] Comment on above: Performed By: #### L [id number] ####[place] [phone] ED NOTESon 09-02-2022 Php Ed Note Normal [facility] Php Ed Note Normal [facility] Php Ed Note Normal [facility] Php Ed Note ED Note: Last filed note HNO ID: [id number] Author: Angeli Schneider, RN Service: Emergency Medicine Author Type: Registered Nurse Filed: 09/02/22 0142 Note Text: Pt very agitated and yelling at staff members. Normal [facility] ED PROVIDER NOTESon 09-03-19 Php Ed Provider Note Normal [facility] ED TRIAGEon 09-02-2022 [facility] Ed Triage Note Normal [facility] ETHANOLon 09-02-2022 COMMENT For Medical Purposes only. Abnormal [facility] Comment on above: Performed By: #### L [id number] ####[place] [phone] ETHANOL, SERUM/PLASMA 158 mg/dL High <10 [facility] Comment on above: Performed By: #### L [id number] ####[place] [phone] MEDICAL STAFFon 09-02-2022 Cosmetologist Authentication Interface Message Text Normal [facility] PROGRESS NOTESon 09-02-2022 Cosmetologist Authentication Interface Message Text [facility] CBC W/DIFFon 08-30-2022 BASOPHILS ABS AUTO Normal [facility] Comment on above: Order Comment: Cultu re of the urine specimen was not completed as criteria were not met. Release to patient->Immediate Performed By: #### L [id number], [id number] #### [facility] [address] [place] [address] BASOPHILS ABS AUTO 0.0 K/uL Normal 0.0-0.1 [facility] Comment on above: Order Comment: Cultu re of the urine specimen was not completed as criteria were not met. Release to patient->Immediate Performed By: #### L [id number], [id number] #### [facility] [address] [place] [address] BASOPHILS RELATIVE AUTO Normal [facility] Comment on above: Order Comment: Cultu re of the urine specimen was not completed as criteria were not met. Release to patient->Immediate Performed By: #### L [id number], [id number] #### [facility] [address] [place] [address] Basophils/100 WBC (Bld) 0.2 % Normal [facility] Comment on above: Order Comment: Cultu re of the urine specimen was not completed as criteria were not met. Release to patient->Immediate Performed By: #### L [id number], [id number] #### [facility] [address] [place] [address] EOSINOPHIL ABS AUTO Normal [facility] Comment on above: Order Comment: Cultu re of the urine specimen was not completed as criteria were not met. Release to patient->Immediate Performed By: #### L [id number], [id number] #### [facility] [address] [place] [address] Eosinophils (Bld) [#/Vol] 0.2 10*3/uL Normal 0.0-0.4 [facility] Comment on above: Order Comment: Cultu re of the urine specimen was not completed as criteria were not met. Release to patient->Immediate Performed By: #### L [id number], [id number] #### [facility] [address] [place] [address] EOSINOPHILS RELATIVE AUTO Normal [facility] Comment on above: Order Comment: Cultu re of the urine specimen was not completed as criteria were not met. Release to patient->Immediate Performed By: #### L [id number], [id number] #### [facility] [address] [place] [address] Eosinophils/100 WBC (Bld) 2.5 % Normal [facility] Comment on above: Order Comment: Cultu re of the urine specimen was not completed as criteria were not met. Release to patient->Immediate Performed By: #### L [id number], [id number] #### [facility] [address] [place] [address] Erythrocyte distribution width (RBC) [Ratio] 14.0 % Normal 11.7-15.2 [facility] Comment on above: Order Comment: Cultu re of the urine specimen was not completed as criteria were not met. Release to patient->Immediate Performed By: #### L [id number], [id number] #### [facility] [address] [place] [address] Hematocrit (Bld) [Volume fraction] 43.4 % Normal 39.0-51.5 [facility] Comment on above: Order Comment: Cultu re of the urine specimen was not completed as criteria were not met. Release to patient->Immediate Performed By: #### L [id number], [id number] #### [facility] [address] [place] [address] HEMATOCRIT BLOOD Normal [facility] Comment on above: Order Comment: Cultu re of the urine specimen was not completed as criteria were not met. Release to patient->Immediate Performed By: #### L [id number], [id number] #### [facility] [address] [place] [address] HEMOGLOBIN Normal [facility] Comment on above: Order Comment: Cultu re of the urine specimen was not completed as criteria were not met. Release to patient->Immediate Performed By: #### L [id number], [id number] #### [facility] [address] [place] [address] Hemoglobin (Bld) [Mass/Vol] 15.2 g/dL Normal 13.1-17.6 [facility] Comment on above: Order Comment: Cultu re of the urine specimen was not completed as criteria were not met. Release to patient->Immediate Performed By: #### L [id number], [id number] #### [facility] [address] [place] [address] LYMPHOCYTE ABS AUTO Normal [facility] Comment on above: Order Comment: Cultu re of the urine specimen was not completed as criteria were not met. Release to patient->Immediate Performed By: #### L [id number], [id number] #### [facility] [address] [place] [address] Lymphocytes (Bld) [#/Vol] 2.2 10*3/uL Normal 0.8-3.6 [facility] Comment on above: Order Comment: Cultu re of the urine specimen was not completed as criteria were not met. Release to patient->Immediate Performed By: #### L [id number], [id number] #### [facility] [address] [place] [address] LYMPHOCYTES RELATIVE AUTO Normal [facility] Comment on above: Order Comment: Cultu re of the urine specimen was not completed as criteria were not met. Release to patient->Immediate Performed By: #### L [id number], [id number] #### [facility] [address] [place] [address] Lymphocytes/100 WBC (Bld) 27.5 % Normal [facility] Comment on above: Order Comment: Cultu re of the urine specimen was not completed as criteria were not met. Release to patient->Immediate Performed By: #### L [id number], [id number] #### [facility] [address] [place] [address] [facility] Comment on above: Order Comment: Cultu re of the urine specimen was not completed as criteria were not met. Release to patient->Immediate Performed By: #### L [id number], [id number] #### [facility] [address] [place] [address] MCH (RBC) [Entitic mass] 30.8 pg Normal 28.4-33.4 [facility] Comment on above: Order Comment: Cultu re of the urine specimen was not completed as criteria were not met. Release to patient->Immediate Performed By: #### L [id number], [id number] #### [facility] [address] [place] [address] [facility] Comment on above: Order Comment: Cultu re of the urine specimen was not completed as criteria were not met. Release to patient->Immediate Performed By: #### L [id number], [id number] #### [facility] [address] [place] [address] MCHC (RBC) [Mass/Vol] 34.9 g/dL Normal 31.1-37.0 [facility] Comment on above: Order Comment: Cultu re of the urine specimen was not completed as criteria were not met. Release to patient->Immediate Performed By: #### L [id number], [id number] #### [facility] [address] [place] [address] MCV Normal [facility] Comment on above: Order Comment: Cultu re of the urine specimen was not completed as criteria were not met. Release to patient->Immediate Performed By: #### L [id number], [id number] #### [facility] [address] [place] [address] MCV (RBC) [Entitic vol] 88.2 fL Normal 85.0-99.0 [facility] Comment on above: Order Comment: Cultu re of the urine specimen was not completed as criteria were not met. Release to patient->Immediate Performed By: #### L [id number], [id number] #### [facility] [address] [place] [address] MONOCYTE ABS AUTO Normal [facility] Comment on above: Order Comment: Cultu re of the urine specimen was not completed as criteria were not met. Release to patient->Immediate Performed By: #### L [id number], [id number] #### [facility] [address] [place] [address] Monocytes (Bld) [#/Vol] 0.8 10*3/uL Normal 0.3-0.9 [facility] Comment on above: Order Comment: Cultu re of the urine specimen was not completed as criteria were not met. Release to patient->Immediate Performed By: #### L [id number], [id number] #### [facility] [address] [place] [address] MONOCYTES RELATIVE AUTO Normal [facility] Comment on above: Order Comment: Cultu re of the urine specimen was not completed as criteria were not met. Release to patient->Immediate Performed By: #### L [id number], [id number] #### [facility] [address] [place] [address] Monocytes/100 WBC (Bld) 9.8 % Normal [facility] Comment on above: Order Comment: Cultu re of the urine specimen was not completed as criteria were not met. Release to patient->Immediate Performed By: #### L [id number], [id number] #### [facility] [address] [place] [address] NEUTROPHIL ABS AUTO Normal [facility] Comment on above: Order Comment: Cultu re of the urine specimen was not completed as criteria were not met. Release to patient->Immediate Performed By: #### L [id number], [id number] #### [facility] [address] [place] [address] NEUTROPHIL ABS AUTO 4.7 K/uL Normal 2.0-7.3 [facility] Comment on above: Order Comment: Cultu re of the urine specimen was not completed as criteria were not met. Release to patient->Immediate Performed By: #### L [id number], [id number] #### [facility] [address] [place] [address] NEUTROPHILS RELATIVE AUTO Normal [facility] Comment on above: Order Comment: Cultu re of the urine specimen was not completed as criteria were not met. Release to patient->Immediate Performed By: #### L [id number], [id number] #### [facility] [address] [place] [address] Neutrophils/100 WBC (Bld) 60.0 % Normal [facility] Comment on above: Order Comment: Cultu re of the urine specimen was not completed as criteria were not met. Release to patient->Immediate Performed By: #### L [id number], [id number] #### [facility] [address] [place] [address] PLATELET COUNT Normal [facility] Comment on above: Order Comment: Cultu re of the urine specimen was not completed as criteria were not met. Release to patient->Immediate Performed By: #### L [id number], [id number] #### [facility] [address] [place] [address] Platelets (Bld) [#/Vol] 253 10*3/uL Normal 154-393 [facility] Comment on above: Order Comment: Cultu re of the urine specimen was not completed as criteria were not met. Release to patient->Immediate Performed By: #### L [id number], [id number] #### [facility] [address] [place] [address] RBC (Bld) [#/Vol] 4.92 10*6/uL Normal 4.30-5.86 [facility] Comment on above: Order Comment: Cultu re of the urine specimen was not completed as criteria were not met. Release to patient->Immediate Performed By: #### L [id number], [id number] #### [facility] [address] [place] [address] RDW [facility] Comment on above: Order Comment: Cultu re of the urine specimen was not completed as criteria were not met. Release to patient->Immediate Performed By: #### L [id number], [id number] #### [facility] [address] [place] [address] RED BLOOD CELL COUNT Normal [facility] Comment on above: Order Comment: Cultu re of the urine specimen was not completed as criteria were not met. Release to patient->Immediate Performed By: #### L [id number], [id number] #### [facility] [address] [place] [address] WBC (Bld) [#/Vol] 7.8 10*3/uL Normal 4.0-10.5 [facility] Comment on above: Order Comment: Cultu re of the urine specimen was not completed as criteria were not met. Release to patient->Immediate Performed By: #### L [id number], [id number] #### [facility] [address] [place] [address] WHITE BLOOD CELL COUNT Normal [facility] Comment on above: Order Comment: Cultu re of the urine specimen was not completed as criteria were not met. Release to patient->Immediate Performed By: #### L [id number], [id number] #### [facility] [address] [place] [address] COMPREHENSIVE METABOLIC PANE Dilip 08-30-2022 AG RATIO [facility] Comment on above: Order Comment: Relea se to patient->Immediate Performed By: #### L [id number], [id number] #### [facility] [address] [place] [address] ALBUMIN [facility] Comment on above: Order Comment: Relea se to patient->Immediate Performed By: #### L [id number], [id number] #### [facility] [address] [place] [address] Albumin [Mass/Vol] 4.2 g/dL Normal 3.5-5.7 [facility] Comment on above: Order Comment: Relea se to patient->Immediate Performed By: #### L [id number], [id number] #### [facility] [address] [place] [address] Albumin/Globulin [Mass ratio] 1.6 {ratio} Normal 1.0-2.0 [facility] Comment on above: Order Comment: Relea se to patient->Immediate Performed By: #### L [id number], [id number] #### [facility] [address] [place] [address] ALKALINE PHOSPHATASE Normal [facility] Comment on above: Order Comment: Relea se to patient->Immediate Performed By: #### L [id number], [id number] #### [facility] [address] [place] [address] ALP [Catalytic activity/Vol] 90 U/L Normal 34-104 [facility] Comment on above: Order Comment: Relea se to patient->Immediate Performed By: #### L [id number], [id number] #### [facility] [address] [place] [address] ALT (SGPT) Normal [facility] Comment on above: Order Comment: Relea se to patient->Immediate Performed By: #### L [id number], [id number] #### [facility] [address] [place] [address] ALT [Catalytic activity/Vol] 33 U/L Normal 7-52 [facility] Comment on above: Order Comment: Relea se to patient->Immediate Performed By: #### L [id number], [id number] #### [facility] [address] [place] [address] ANION GAP Normal [facility] Comment on above: Order Comment: Relea se to patient->Immediate Performed By: #### L [id number], [id number] #### [facility] [address] [place] [address] Anion gap [Moles/Vol] 10 mmol/L Normal 7-16 [facility] Comment on above: Order Comment: Relea se to patient->Immediate Performed By: #### L [id number], [id number] #### [facility] [address] [place] [address] AST (SGOT) Normal [facility] Comment on above: Order Comment: Relea se to patient->Immediate Performed By: #### L [id number], [id number] #### [facility] [address] [place] [address] AST [Catalytic activity/Vol] 27 U/L Normal 13-39 [facility] Comment on above: Order Comment: Relea se to patient->Immediate Performed By: #### L [id number], [id number] #### [facility] [address] [place] [address] Bilirubin [Mass/Vol] 0.5 mg/dL Normal 0.3-1.0 [facility] Comment on above: Order Comment: Relea se to patient->Immediate Performed By: #### L [id number], [id number] #### [facility] [address] [place] [address] BLOOD UREA NITROGEN Normal [facility] Comment on above: Order Comment: Relea se to patient->Immediate Performed By: #### L [id number], [id number] #### [facility] [address] [place] [address] CALCIUM Normal [facility] Comment on above: Order Comment: Relea se to patient->Immediate Performed By: #### L [id number], [id number] #### [facility] [address] [place] [address] Calcium [Mass/Vol] 9.4 mg/dL Normal 8.6-10.2 [facility] Comment on above: Order Comment: Relea se to patient->Immediate Performed By: #### L [id number], [id number] #### [facility] [address] [place] [address] CARBON DIOXIDE Normal [facility] Comment on above: Order Comment: Relea se to patient->Immediate Performed By: #### L [id number], [id number] #### [facility] [address] [place] [address] CHLORIDE Normal [facility] Comment on above: Order Comment: Relea se to patient->Immediate Performed By: #### L [id number], [id number] #### [facility] [address] [place] [address] Chloride [Moles/Vol] 103 mmol/L Normal 98-107 [facility] Comment on above: Order Comment: Relea se to patient->Immediate Performed By: #### L [id number], [id number] #### [facility] [address] [place] [address] CO2 [Moles/Vol] 23 mmol/L Normal 21-31 [facility] Comment on above: Order Comment: Relea se to patient->Immediate Performed By: #### L [id number], [id number] #### [facility] [address] [place] [address] CREATININE Normal [facility] Comment on above: Order Comment: Relea se to patient->Immediate Performed By: #### L [id number], [id number] #### [facility] [address] [place] [address] Creatinine [Mass/Vol] 1.42 mg/dL Normal 0.7-1.3 [facility] Comment on above: Order Comment: Relea se to patient->Immediate Performed By: #### L [id number], [id number] #### [facility] [address] [place] [address] GFR MALE Normal [facility] Comment on above: Order Comment: Relea se to patient->Immediate Result Comment: Repo rted eGFR is based on the CKD-EPI 2020 equation that does not use a race coefficient. Performed By: #### L [id number], [id number] #### [facility] [address] [place] [address] GFR/1.73 sq M.predicted among non-blacks MDRD (S/P/Bld) [Vol rate/Area] 65 mL/min/{1.73_m2} Normal >90 [facility] Comment on above: Order Comment: Relea se to patient->Immediate Performed By: #### L [id number], [id number] #### [facility] [address] [place] [address] GLOBULIN Normal [facility] Comment on above: Order Comment: Relea se to patient->Immediate Performed By: #### L [id number], [id number] #### [facility] [address] [place] [address] Globulin (S) [Mass/Vol] 2.7 g/dL Normal 2.6-4.2 [facility] Comment on above: Order Comment: Relea se to patient->Immediate Performed By: #### L [id number], [id number] #### [facility] [address] [place] [address] GLUCOSE Normal [facility] Comment on above: Order Comment: Relea se to patient->Immediate Performed By: #### L [id number], [id number] #### [facility] [address] [place] [address] Glucose [Mass/Vol] 116 mg/dL Normal 74-109 [facility] Comment on above: Order Comment: Relea se to patient->Immediate Performed By: #### L [id number], [id number] #### [facility] [address] [place] [address] POTASSIUM Normal [facility] Comment on above: Order Comment: Relea se to patient->Immediate Performed By: #### L [id number], [id number] #### [facility] [address] [place] [address] Potassium [Moles/Vol] 3.5 mmol/L Normal 3.5-5.1 [facility] Comment on above: Order Comment: Relea se to patient->Immediate Performed By: #### L [id number], [id number] #### [facility] [address] [place] [address] Protein [Mass/Vol] 6.9 g/dL Normal 6.0-8.3 [facility] Comment on above: Order Comment: Relea se to patient->Immediate Performed By: #### L [id number], [id number] #### [facility] [address] [place] [address] PROTEIN, TOTAL Normal [facility] Comment on above: Order Comment: Relea se to patient->Immediate Performed By: #### L [id number], [id number] #### [facility] [address] [place] [address] SODIUM Normal [facility] Comment on above: Order Comment: Relea se to patient->Immediate Performed By: #### L [id number], [id number] #### [facility] [address] [place] [address] Sodium [Moles/Vol] 136 mmol/L Normal 136-145 [facility] Comment on above: Order Comment: Relea se to patient->Immediate Performed By: #### L [id number], [id number] #### [facility] [address] [place] [address] TOTAL BILIRUBIN Normal [facility] Comment on above: Order Comment: Relea se to patient->Immediate Performed By: #### L [id number], [id number] #### [facility] [address] [place] [address] Urea nitrogen [Mass/Vol] 27 mg/dL Normal 7-25 [facility] Comment on above: Order Comment: Relea se to patient->Immediate Performed By: #### L [id number], [id number] #### [facility] [address] [place] [address] Consultson 08-30-2022 Consults Encounter Department : [facility] Consults by Minerva Singh LPC at 08/30/2022 9:06 PM Author: Minerva Singh LPCService: -Author Type: CRISTOBAL Specialist Filed: 08/30/2022 11:37 PMDate of Service: 08/30/2022 9:06 PMStatus: Signed Parts Data Writer: Minerva Singh LPC (CRISTOBAL Specialist) Consult Orders 1. Behavioral Health Assessment Consult [[id number]] ordered by Yuailyn Marrufo APRN-ADRYAN at 08/30/222010 BEHAVIORAL HEALTH ASSESSMENT TEAM CONSULT DATE: 08/30/22 Consult: Community Resources Referral - Substance Use disorder (JIMMY) Reason for consult: Detox Options Telehealth: yes Identifying Information: 37 y.o. male seen in the Emergency Room Narrative: Pt presents to the ED due to intoxication and seeking JIMMY rehabilitation options. Pt reports he is having a severe relapse with alcohol and methamphetamine and he has been on a 3 day binder after being sober for 41 days. Pt reports he hasn't been sleeping or eating much for the past 3 days. Pt reports he is homeless now as his residence was [facility]. Pt reports wanting to be connected to another recovery program. Pt reports he has been to [facility] 3 times and has walked away before finishing the program every time so he is not allowed to come back to their program. Per chart review Pt has also been to [facility] but did not complete their program either, leaving AMA. Pt reports wanting to go to [facility] as he heard good things about their program. [facility] is closed on the weekend. Pt reports he is open to the [facility] program as well. [facility] contacted [facility] and was told Pt should come in for walk in hours tomorrow morning to be assessed rather than them assessing him tonight and again tomorrow. [facility] also contacted [facility] but Pt is not in network with them for inpatient JIMMY. Pt reports a prior diagnosis of Major Depressive disorder but reports he is not currently seeing anyone on an outpatient basis. Pt denies SI/HI/AVH at this time. Outpatient JIMMY resources were added to Pt discharge instructions. Pt to be discharged to follow up with [facility] or [facility] in the morning. Mental Status: Orientation: oriented x 4 Mood: appropriate to circumstance Affect:flat Speech: clear Current JIMMY Treatment: no -Provider: It was Micheal Alvarez a counselor at [facility] but now I will need to be connected somewhere else Alcohol/Drug Screening: History of JIMMY: Yes Substance(s) of choice: Alcohol, Methamphetamine BAL: <10 UDS: Pt is positive for methamphetamine Toxicology Completed: Yes If yes, does it correspond with patient report: Yes Alcohol: Date of last use: 08/29/22 Method of use: oral Frequency in last 30 days: I drink 5-7 days a week, probably half a gallon of whiskey and mixed drinks each day that I drink How long have you been using?: 10 years When have you attempted to stop using alcohol? : (sporadic here and there Edyta been sober, in 2007 and 2008 I was sober for a year) Did you experience any of the following symptoms?: Anxiety, Fatigue In the past, how have you handled withdrawal symptoms?: Detox facility ([facility] in [place] most recently, but Edyta been to lots of places) Methamphetamines: Date of last use: 08/30/22 Method of use: injection, smoked, or I eat it Frequency in last 30 days: twice in the past 3 days. I was sober for 41 days before that How long have you been using?: Onset age 31 Did you experience any of the following symptoms?: Fatigue (Confusion) Detox: Have you ever been admitted to a detoxification facility for withdrawal from alcohol or other drugs?: Yes ([facility], [facility], [facility], several others) Have you noticed it takes more of a given substance to get the same results as before?: Yes (Sometimes yes and sometimes no, its strange just depends) What substance(s) have you used to relieve or avoid withdrawals?: Pt denies If you have experienced cravings to use alcohol or drugs, what substances and what were the thoughts or events that caused the cravings?: Pt denies If your mental health or alcohol/drug symptoms have caused problems during your employment, please describe:: Im not stable enough in my life, so Im unemployable If any of your medical conditions have been impacted by your use of alcohol or other drugs, please describe:: Pt denies If you have ever continued to use a substance knowing it has caused or worsened a medical condition, what condition and how has it worsened?: Pt denies Hx of Mental Health Diagnosis: Yes -Diagnosis: Depressive Disorder -Treatment: Past: Counseling Peer Support Offered : Already involved [facility] Completed: no Physician/ Nurse Contact: Xavier Mendoza MD potato chip fryer/ Die Assembler: NA- ER case Disposition: Educated patient on local JIMMY treatment options. Provided patient a list of community resources in DC instructions. Thank you for involving The Behavioral Health Assessment Team in (more content not included)... Normal [facility] ED Provider Noteson 08-31-19 ED Provider Notes Encounter Department : [facility] ED Provider Notes by Xavier Mendoza MD at 08/30/2022 8:12 PM Author: VINEET Nixonervice: -Author Type: ED Physician Filed: 08/31/2022 5:46 AMDate of Service: 08/30/2022 8:12 PMStatus: Signed Parts Data Writer: Xavier Mendoza MD (ED Physician) I saw and evaluated the patient and have provided the substantive portion of the assessment, direction of care and disposition. I have discussed with the REZA and agree with the findings and plan. FINAL IMPRESSION: ICD-10-CM 1.Polysubstance abuse (HCC) F19.10 DISPOSITION / PLAN OF CARE: Discharge DISCHARGE MEDICATION: New Prescriptions No medications on file HPI: Patient presented wanting to get back into alcohol and drug rehabilitation. Patient states that he was recently at [facility] starting from June 08, 2022 but left 3 times so far and was told that he is not allowed to come back any further. He reports last alcohol use was yesterday. He reports last methamphetamine use was today. García Portions of Physical Exam: ED Triage Vitals [08/30/222007] BP133/78 Temp99.1 ?F (37.3 ?C) Pulse77 Resp12 EbV858 % Lseklg812 lb (108.9 kg) Alexander Coma Scale Score BMI (Calculated)33.5 Constitutional: Well developed, Well nourished. HENT: Normocephalic, Atraumatic, Bilateral external ears normal, Oropharynx moist, No oral exudates, Nose normal. Eyes: Normal inspection. PERRL, EOMI, Conjunctiva normal, No discharge. Lymphatic: No cervical lymphadenopathy noted. Neck: Normal range of motion, No tenderness, Supple. Cardiovascular: Normal heart rate, Normal rhythm, No murmurs, gallops or rubs. Thorax AND Lungs: Normal breath sounds, No respiratory distress, No wheezing. Abdomen: Soft, No tenderness, No masses, No pulsatile masses, no distention Skin: Warm, Dry, No erythema, No rash. Back: Normal inspection. Musculoskeletal/Extremit ies: Good range of motion in all major joints as observed. No major deformities noted. No extremity tenderness. No edema. No cyanosis. Neurologic: Alert AND oriented x 3, Normal motor function, No focal deficits noted. CNII-XII intact. Psychiatric: Affect normal, Judgment normal, Mood normal. EKG: No results found for this visit on 08/30/22. RADIOLOGY: I have personally visualized the images. The radiologist interpretation reveals: No results found for this visit on 08/30/22. LAB RESULTS: Normal labs (listed in bold) and specific abnormal labs include: COMPREHENSIVE METABOLIC PANEL - Abnormal; Notable for the following components: ResultValueRef RangeStatus Ctoucix492 (*)74 - 109 mg/dLFinal BUN27 (*)7 - 25 mg/dLFinal Creatinine1.42 (*)0.7 - 1.3 mg/dLFinal All other components within normal limits Narrative: KDIGO 2012 GFR Categories Stage Description eGFR (mL/min/1.73m2) G1 Normal or high >=90 G2 Mildly decreased 60-89 G3a Mildly to moderately decreased 45-59 G3b Moderately to severely decreased 30-44 G4 Severely decreased 15-29 G5 Kidney Failure <15 URINE DRUG SCREEN - Abnormal; Notable for the following components: Amphetamine MetabPositive (*)NegativeFinal All other components within normal limits Narrative: Drug Screen Cut-off values: Amphetamines 300 ng/ml Benzodiazepines 200 ng/ml Barbiturates 200 ng/ml Cocaine metabolite 300 ng/ml Cannabinoids 50 ng/ml Opiates 300 ng/ml * Results are unconfirmed screening results and should only be used for medical purposes. SERUM TOX SCREEN - Abnormal; Notable for the following components: Acetaminophen Level<10 (*)10 - 30 ug/mLFinal Vuqhgos81 (*)<10 mg/dLFinal Salicylate<2.5 (*)3.0 - 20.0 mg/dLFinal All other components within normal limits Narrative: Salicylate Therapeutic Range: 20-25 mg/dL Acetaminophen Therapeutic Range:10.00-30.00 ug/mL URINALYSIS WITH REFLEX TO SCOPE - Abnormal; Notable for the following components: Urine ColorLight yellow (*)YellowFinal All other components within normal limits CBC W/DIFF MANUAL SCAN EXTRA TUBE-PST PROCEDURE(S): Procedure performed by the REZA: please see REZA note. ED COURSE: Pertinent Labs AND Imaging studies reviewed. (See chart for details) Patient is a 37 y.o. male who presents to the emergency department today wanting alcohol and drug rehabilitation. I have independently reviewed all images and any interpretations given are my own. I have also reviewed radiologist interpretations. In the work-up of this patient we considered several possible diagnoses. Please see REZA note for details. Discussion of management with external clinicians or appropriate sources are discussed in ED course and REZA note. The following social determinants of health are considered: Problems obtaining housing Unemployment Living alone Problems in relationship Homelessness Inadequate parent supervision Alcohol/substance abuse Affordability or availability of pres (more content not included)... Normal [facility] ED Provider Notes Encounter Department : [facility]EM[facility]ENCY ED Provider Notes by FILI Beach at 08/30/2022 8:03 PM Author: FILI BeachService: Emergency MedicineAuthor Type: Nurse Practitioner Filed: 08/30/2022 10:25 PMDate of Service: 08/30/2022 8:03 PMStatus: Signed Parts Data Writer: FILI Beach (Nurse Practitioner)Cosigner: Xavier Mendoza MD at 08/31/2022 5:43 AM FINAL IMPRESSION(S) ICD-10-CM 1.Polysubstance abuse (HCC) F19.10 DISPOSITION PLAN Signout to Dr. Mendoza for final disposition DISCHARGE MEDICATION(S) / CHANGES TO HOME MEDICATIONS New Prescriptions No medications on file CHIEF COMPLAINT Chief Complaint Patient presents with -Addiction Problem TRIAGE NOTE: Karely Paez RN 08/30/2022 7:57 PM Signed PT has been using meth and alcohol for multiple days. PT has hx of 41 days sober and has been on a 3 day cheema. PT wants help and has tried multiple hotlines. HPI Mckinley Maldonadoage is a 37 y.o. male in bed SP ED 08/14 who presents to the ED with addiction problem. The patient states that he is trying to recover from an meth and alcohol binge. He states he was at [facility] and was 41 days sober but states that he left 3 days ago and went on an alcohol and meth binge. He states that this is the third time that he has left [facility] since June 08 when he arrived there. He states that this is his third strike and he is unable to return back. He states he tried calling [employer] but it is Wednesday and they do not take phone calls on Wednesday. He states he would like to get back into a rehab facility. He states he last drink alcohol yesterday and drank 2 bottles of fireball, twisted teas and drank 4 [place]. He also states that he last used meth this morning. He states that he will swallow it, smoking and injected. He denies any suicidal homicidal ideations. Denies any auditory visual hallucinations. He denies any chest pain or shortness of breath. He states that he has not slept in several days and is exhausted. He states that he has heard good things about [employer] and 115. Patient states that he has prescribed Effexor and [facility] but has not had it in several days. PERTINENT REVIEW OF SYSTEMS Review of Systems Constitutional: Positive for fatigue. Negative for chills and fever. Respiratory: Negative for cough and shortness of breath. Cardiovascular: Negative for chest pain. Gastrointestinal: Negative for nausea and vomiting. Skin: Negative for rash. Neurological: Negative for headaches. Psychiatric/Behavioral: Positive for sleep disturbance. Negative for confusion, hallucinations and suicidal ideas. The patient is not nervous/anxious. PAST MEDICAL HISTORY / FAMILY HISTORY Past Medical History: DiagnosisDate -Alcoholic (HCC) -Anxiety -Major depressive disorder No family history on file. Above past medical conditions reviewed and verified by me. SOCIAL HISTORY Social History Socioeconomic History -Marital status:Single Tobacco Use -Smoking status:Some Days Types:Cigarettes -Smokeless tobacco:Never Vaping Use -Vaping Use:Some days Substance and Sexual Activity -Alcohol use:Yes Comment: fifth of whiskey a day -Drug use:Yes Types:Methamphetamines -Sexual activity:Yes Above social elements reviewed and verified by me. SURGICAL HISTORY History reviewed. No pertinent surgical history. CURRENT MEDICATIONS Outpatient Medications Marked as Taking for the 08/30/22 encounter (Hospital Encounter) MedicationSigDispenseRef ill -cetirizine (ZYRTEC) 10 mg tabletTake 1 tablet (10 mg total) by mouth daily. -fluticasone propionate (FLONASE) 50 mcg/actuation nasal spray1 spray into nostril(s) every morning. -hydrOXYzine pamoate (VISTARIL) 50 mg capsuleTake 1 capsule (50 mg total) by mouth 3 times a day as needed. -traZODone (DESYREL) 50 mg tabletTake 1 tablet (50 mg total) by mouth at bedtime. -[DISCONTINUED] venlafaxine (EFFEXOR-XR) 75 mg 24 hr capsuleTake 1 capsule (75 mg total) by mouth daily. ALLERGIES No Known Allergies PERTINENT PHYSICAL EXAM VITAL SIGNS: ED Triage Vitals [08/30/222007] BP133/78 Temp99.1 ?F (37.3 ?C) Pulse77 Resp12 PzU624 % Rsrubx992 lb (108.9 kg) Marta Coma Scale Score BMI (Calculated)33.5 Constitutional: Well developed. Well nourished, Non-toxic, Minimal acute distress HENT: Normocephalic, Atraumatic, Bilateral external ears normal, Oropharynx moist, No oral exudates, Nose normal. Eyes: PERRL, EOMI, Conjunctiva normal, No discharge. Neck: Normal range of motion, No tenderness, Supple, No stridor. Cardiovascular: normal rate, regular rhythm, no murmurs, rubs, clicks or gallops. Thorax AND Lungs: Normal breath sounds, No respiratory distress, No wheezing, No chest tenderness. Abdomen: Bowel sounds normal, (more content not included)... Normal [facility] EXTRA TUBE-PSTon 08-30-2022 EXTRA TUBE Normal [facility] Comment on above: Order Comment: Relea se to patient->Immediate Performed By: #### L [id number], [id number] #### [facility] [address] [place] [address] EXTRA TUBE Performed Normal [facility] Comment on above: Order Comment: Relea se to patient->Immediate Performed By: #### L [id number], [id number] #### [facility] [address] [place] [address] MANUAL SCANon 08-30-2022 PLATELET ESTIMATE Normal Adequate [facility] Comment on above: Order Comment: Cultu re of the urine specimen was not completed as criteria were not met. Release to patient->Immediate Performed By: #### L [id number], [id number] #### [facility] [address] [place] [address] PLATELET ESTIMATE Adequate Normal [facility] Comment on above: Order Comment: Cultu re of the urine specimen was not completed as criteria were not met. Release to patient->Immediate Performed By: #### L [id number], [id number] #### [facility] [address] [place] [address] WBC ESTIMATE Normal [facility] Comment on above: Order Comment: Cultu re of the urine specimen was not completed as criteria were not met. Release to patient->Immediate Performed By: #### L [id number], [id number] #### [facility] [address] [place] [address] WBC ESTIMATE Adequate Normal [facility] Comment on above: Order Comment: Cultu re of the urine specimen was not completed as criteria were not met. Release to patient->Immediate Performed By: #### L [id number], [id number] #### [facility] [address] [place] [address] SERUM TOX SCREENon ACETAMINOPHEN LEVEL Normal [facility] Comment on above: Order Comment: Salic ylate Therapeutic Range: 20-25 mg/dLAcetaminophen Therapeutic Range:10.00-30.00 ug/mLRelease to patient->Immediate Performed By: #### L [id number] ####[facility] [facility] [id number] [facility] ACETAMINOPHEN LEVEL <10 Normal 10-30 [facility] Comment on above: Order Comment: Salic ylate Therapeutic Range: 20-25 mg/dLAcetaminophen Therapeutic Range:10.00-30.00 ug/mLRelease to patient->Immediate Performed By: #### L [id number] ####[facility] [place] [address] ETHANOL Normal [facility] Comment on above: Order Comment: Salic ylate Therapeutic Range: 20-25 mg/dLAcetaminophen Therapeutic Range:10.00-30.00 ug/mLRelease to patient->Immediate Performed By: #### L [id number] ####[address] Ethanol [Mass/Vol] 10 mg/dL Normal <10 [facility] Comment on above: Order Comment: Salic ylate Therapeutic Range: 20-25 mg/dLAcetaminophen Therapeutic Range:10.00-30.00 ug/mLRelease to patient->Immediate Performed By: #### L [id number] ####[address] SALICYLATE ([facility]/IRS) Normal [facility] Comment on above: Order Comment: Salic ylate Therapeutic Range: 20-25 mg/dLAcetaminophen Therapeutic Range:10.00-30.00 ug/mLRelease to patient->Immediate Performed By: #### L [id number] ####[address] SALICYLATE ([facility]/IRS) <2.5 Normal 3.0-20.0 [facility] Comment on above: Order Comment: Salic ylate Therapeutic Range: 20-25 mg/dLAcetaminophen Therapeutic Range:10.00-30.00 ug/mLRelease to patient->Immediate Performed By: #### L [id number] ####[address] URINALYSIS WITH REFLEX TO SC OPEon 08-30-2022 BILIRUBIN, UA Normal [facility] Comment on above: Order Comment: Relea se to patient->Immediate Performed By: #### L [id number], [id number] #### [facility] [address] [place] [address] BILIRUBIN, UA Negative Normal Negative [facility] Comment on above: Order Comment: Relea se to patient->Immediate Performed By: #### L [id number], [id number] #### [facility] [address] [place] [address] BLOOD, UA Normal [facility] Comment on above: Order Comment: Relea se to patient->Immediate Performed By: #### L [id number], [id number] #### [facility] [address] [place] [address] BLOOD, UA Negative Normal Negative [facility] Comment on above: Order Comment: Relea se to patient->Immediate Performed By: #### L [id number], [id number] #### [facility] [address] [place] [address] Clarity (U) Normal [facility] Comment on above: Order Comment: Relea se to patient->Immediate Performed By: #### L [id number], [id number] #### [facility] [address] [place] [address] Clarity (U) Clear Normal Clear [facility] Comment on above: Order Comment: Relea se to patient->Immediate Performed By: #### L [id number], [id number] #### [facility] [address] [place] [address] Color (U) Normal [facility] Comment on above: Order Comment: Relea se to patient->Immediate Performed By: #### L [id number], [id number] #### [facility] [address] [place] [address] Color (U) Light yellow Normal Yellow [facility] Comment on above: Order Comment: Relea se to patient->Immediate Performed By: #### L [id number], [id number] #### [facility] [address] [place] [address] GLUCOSE, UA Normal [facility] Comment on above: Order Comment: Relea se to patient->Immediate Performed By: #### L [id number], [id number] #### [facility] [address] [place] [address] GLUCOSE, UA Negative Normal Negative [facility] Comment on above: Order Comment: Relea se to patient->Immediate Performed By: #### L [id number], [id number] #### [facility] [address] [place] [address] KETONES, UA Normal [facility] Comment on above: Order Comment: Relea se to patient->Immediate Performed By: #### L [id number], [id number] #### [facility] [address] [place] [address] KETONES, UA Negative Normal Negative [facility] Comment on above: Order Comment: Relea se to patient->Immediate Performed By: #### L [id number], [id number] #### [facility] [address] [place] [address] LEUKOCYTES, UA Normal [facility] Comment on above: Order Comment: Relea se to patient->Immediate Performed By: #### L [id number], [id number] #### [facility] [address] [place] [address] LEUKOCYTES, UA Negative Normal Negative [facility] Comment on above: Order Comment: Relea se to patient->Immediate Performed By: #### L [id number], [id number] #### [facility] [address] [place] [address] Nitrite Ql (U) Normal [facility] Comment on above: Order Comment: Relea se to patient->Immediate Performed By: #### L [id number], [id number] #### [facility] [address] [place] [address] Nitrite Ql (U) Negative Normal Negative [facility] Comment on above: Order Comment: Relea se to patient->Immediate Performed By: #### L [id number], [id number] #### [facility] [address] [place] [address] pH (U) 5.5 [pH] Normal 5.0-8.0 [facility] Comment on above: Order Comment: Relea se to patient->Immediate Performed By: #### L [id number], [id number] #### [facility] [address] [place] [address] PH, UA Normal [facility] Comment on above: Order Comment: Relea se to patient->Immediate Performed By: #### L [id number], [id number] #### [facility] [address] [place] [address] PROTEIN, UA Normal [facility] Comment on above: Order Comment: Relea se to patient->Immediate Performed By: #### L [id number], [id number] #### [facility] [address] [place] [address] PROTEIN, UA Negative Normal Negative [facility] Comment on above: Order Comment: Relea se to patient->Immediate Performed By: #### L [id number], [id number] #### [facility] [address] [place] [address] SPECIFIC GRAVITY, UA CATEGORY Normal [facility] Comment on above: Order Comment: Relea se to patient->Immediate Performed By: #### L [id number], [id number] #### [facility] [address] [place] [address] SPECIFIC GRAVITY, UA CATEGORY 1.020 Normal 1.010 - 1.025 [facility] Comment on above: Order Comment: Relea se to patient->Immediate Performed By: #### L [id number], [id number] #### [facility] [address] [place] [address] UROBILINOGEN, UA Normal [facility] Comment on above: Order Comment: Relea se to patient->Immediate Performed By: #### L [id number], [id number] #### [facility] [address] [place] [address] UROBILINOGEN, UA Normal Normal Normal [facility] Comment on above: Order Comment: Relea se to patient->Immediate Performed By: #### L [id number], [id number] #### [facility] [address] [place] [address] URINE DRUG SCREENon 08-31-19 23 AMPHETAMINE METAB Normal [facility] Comment on above: Order Comment: Cultu re of the urine specimen was not completed as criteria were not met. Release to patient->Immediate Performed By: #### L [id number], [id number] #### [facility] [address] [place] [address] AMPHETAMINE METAB Positive Normal Negative [facility] Comment on above: Order Comment: Cultu re of the urine specimen was not completed as criteria were not met. Release to patient->Immediate Performed By: #### L [id number], [id number] #### [facility] [address] [place] [address] BARBITURATES Normal [facility] Comment on above: Order Comment: Cultu re of the urine specimen was not completed as criteria were not met. Release to patient->Immediate Performed By: #### L [id number], [id number] #### [facility] [address] [place] [address] BARBITURATES Negative Normal Negative [facility] Comment on above: Order Comment: Cultu re of the urine specimen was not completed as criteria were not met. Release to patient->Immediate Performed By: #### L [id number], [id number] #### [facility] [address] [place] [address] BENZODIAZEPINES Normal [facility] Comment on above: Order Comment: Cultu re of the urine specimen was not completed as criteria were not met. Release to patient->Immediate Performed By: #### L [id number], [id number] #### [facility] [address] [place] [address] BENZODIAZEPINES Negative Normal Negative [facility] Comment on above: Order Comment: Cultu re of the urine specimen was not completed as criteria were not met. Release to patient->Immediate Performed By: #### L [id number], [id number] #### [facility] [address] [place] [address] CANNABINOID METAB Normal [facility] Comment on above: Order Comment: Cultu re of the urine specimen was not completed as criteria were not met. Release to patient->Immediate Performed By: #### L [id number], [id number] #### [facility] [address] [place] [address] CANNABINOID METAB Negative Normal Negative [facility] Comment on above: Order Comment: Cultu re of the urine specimen was not completed as criteria were not met. Release to patient->Immediate Performed By: #### L [id number], [id number] #### [facility] [address] [place] [address] COCAINE Normal [facility] Comment on above: Order Comment: Cultu re of the urine specimen was not completed as criteria were not met. Release to patient->Immediate Performed By: #### L [id number], [id number] #### [facility] [address] [place] [address] COCAINE Negative Normal Negative [facility] Comment on above: Order Comment: Cultu re of the urine specimen was not completed as criteria were not met. Release to patient->Immediate Performed By: #### L [id number], [id number] #### [facility] [address] [place] [address] OPIATE METAB Normal [facility] Comment on above: Order Comment: Cultu re of the urine specimen was not completed as criteria were not met. Release to patient->Immediate Performed By: #### L [id number], [id number] #### [facility] [address] [place] [address] OPIATE METAB Negative Normal Negative [facility] Comment on above: Order Comment: Cultu re of the urine specimen was not completed as criteria were not met. Release to patient->Immediate Performed By: #### L [id number], [id number] #### [facility] [address] [place] [address] BASIC METABOLIC PANELon 06- 0-2022 Anion gap [Moles/Vol] 14 mmol/L Normal 5-15 [place] Comment on above: Performed By: #### L [id number] ####[place] [phone] Calcium [Mass/Vol] 9.2 mg/dL Normal 8.5-10.5 [facility] Comment on above: Performed By: #### L [id number] ####[place] [phone] Chloride [Moles/Vol] 105 mmol/L Normal 96-110 [facility] Comment on above: Performed By: #### L [id number] ####[place] [phone] CO2 [Moles/Vol] 20 mmol/L Normal 19-32 [facility] Comment on above: Performed By: #### L [id number] ####[place] [phone] Creatinine [Mass/Vol] 1.2 mg/dL Normal 0.5-1.4 [place] Comment on above: Performed By: #### L [id number] ####[place] [phone] ESTIMATED GFR 79 mL/min/1.73m*2 Normal >=60 [facility] Comment on above: Performed By: #### L [id number] ####[place] [phone] Glucose [Mass/Vol] 114 mg/dL High 70-99 [facility] Comment on above: Performed By: #### L [id number] ####[place] [phone] Potassium [Moles/Vol] 3.8 mmol/L Normal 3.4-5.3 [place] Comment on above: Result Comment: Hemo lysis present. Result may be elevated. Performed By: #### L [id number] ####[place] [phone] Sodium [Moles/Vol] 139 mmol/L Normal 135-148 [facility] Comment on above: Performed By: #### L [id number] ####[place] [phone] Urea nitrogen [Mass/Vol] 16 mg/dL Normal 3-29 [facility] Comment on above: Performed By: #### L [id number] ####[place] [phone] Urea nitrogen/Creatinine [Mass ratio] 13 mg/mg Normal 7-25 [facility] Comment on above: Performed By: #### L [id number] ####[place] [phone] BEHAVIORAL ASSESSMENTon 07-09 Cosmetologist Authentication Interface Message Text Normal [facility] CBC W/DIFFon 07-18-2022 BASOPHILS ABS AUTO Normal [facility] Comment on above: Order Comment: Relea se to patient->Immediate Performed By: #### L [id number], [id number] #### [facility] [address] [place] [address] BASOPHILS ABS AUTO 0.1 K/uL Normal 0.0-0.1 [facility] Comment on above: Order Comment: Relea se to patient->Immediate Performed By: #### L [id number], [id number] #### [facility] [address] [place] [address] BASOPHILS RELATIVE AUTO Normal [facility] Comment on above: Order Comment: Relea se to patient->Immediate Performed By: #### L [id number], [id number] #### [facility] [address] [place] [address] Basophils/100 WBC (Bld) 1.0 % Normal [facility] Comment on above: Order Comment: Relea se to patient->Immediate Performed By: #### L [id number], [id number] #### [facility] [address] [place] [address] EOSINOPHIL ABS AUTO Normal [facility] Comment on above: Order Comment: Relea se to patient->Immediate Performed By: #### L [id number], [id number] #### [facility] [address] [place] [address] Eosinophils (Bld) [#/Vol] 0.2 10*3/uL Normal 0.0-0.4 [facility] Comment on above: Order Comment: Relea se to patient->Immediate Performed By: #### L [id number], [id number] #### [facility] [address] [place] [address] EOSINOPHILS RELATIVE AUTO Normal [facility] Comment on above: Order Comment: Relea se to patient->Immediate Performed By: #### L [id number], [id number] #### [facility] [address] [place] [address] Eosinophils/100 WBC (Bld) 3.3 % Normal [facility] Comment on above: Order Comment: Relea se to patient->Immediate Performed By: #### L [id number], [id number] #### [facility] [address] [place] [address] Erythrocyte distribution width (RBC) [Ratio] 13.6 % Normal 11.7-15.2 [facility] Comment on above: Order Comment: Relea se to patient->Immediate Performed By: #### L [id number], [id number] #### [facility] [address] [place] [address] Hematocrit (Bld) [Volume fraction] 48.1 % Normal 39.0-51.5 [facility] Comment on above: Order Comment: Relea se to patient->Immediate Performed By: #### L [id number], [id number] #### [facility] [address] [place] [address] HEMATOCRIT BLOOD Normal [facility] Comment on above: Order Comment: Relea se to patient->Immediate Performed By: #### L [id number], [id number] #### [facility] [address] [place] [address] HEMOGLOBIN Normal [facility] Comment on above: Order Comment: Relea se to patient->Immediate Performed By: #### L [id number], [id number] #### [facility] [address] [place] [address] Hemoglobin (Bld) [Mass/Vol] 16.6 g/dL Normal 13.1-17.6 [facility] Comment on above: Order Comment: Relea se to patient->Immediate Performed By: #### L [id number], [id number] #### [facility] [address] [place] [address] LYMPHOCYTE ABS AUTO Normal [facility] Comment on above: Order Comment: Relea se to patient->Immediate Performed By: #### L [id number], [id number] #### [facility] [address] [place] [address] Lymphocytes (Bld) [#/Vol] 2.0 10*3/uL Normal 0.8-3.6 [facility] Comment on above: Order Comment: Relea se to patient->Immediate Performed By: #### L [id number], [id number] #### [facility] [address] [place] [address] LYMPHOCYTES RELATIVE AUTO Normal [facility] Comment on above: Order Comment: Relea se to patient->Immediate Performed By: #### L [id number], [id number] #### [facility] [address] [place] [address] Lymphocytes/100 WBC (Bld) 30.6 % Normal [facility] Comment on above: Order Comment: Relea se to patient->Immediate Performed By: #### L [id number], [id number] #### [facility] [address] [place] [address] MCH Normal [facility] Comment on above: Order Comment: Relea se to patient->Immediate Performed By: #### L [id number], [id number] #### [facility] [address] [place] [address] MCH (RBC) [Entitic mass] 29.2 pg Normal 28.4-33.4 [facility] Comment on above: Order Comment: Relea se to patient->Immediate Performed By: #### L [id number], [id number] #### [facility] [address] [place] [address] MCHC Normal [facility] Comment on above: Order Comment: Relea se to patient->Immediate Performed By: #### L [id number], [id number] #### [facility] [address] [place] [address] MCHC (RBC) [Mass/Vol] 34.4 g/dL Normal 31.1-37.0 [facility] Comment on above: Order Comment: Relea se to patient->Immediate Performed By: #### L [id number], [id number] #### [facility] [address] [place] [address] MCV Normal [facility] Comment on above: Order Comment: Relea se to patient->Immediate Performed By: #### L [id number], [id number] #### [facility] [address] [place] [address] MCV (RBC) [Entitic vol] 84.7 fL Normal 85.0-99.0 [facility] Comment on above: Order Comment: Relea se to patient->Immediate Performed By: #### L [id number], [id number] #### [facility] [address] [place] [address] MONOCYTE ABS AUTO Normal [facility] Comment on above: Order Comment: Relea se to patient->Immediate Performed By: #### L [id number], [id number] #### [facility] [address] [place] [address] Monocytes (Bld) [#/Vol] 0.6 10*3/uL Normal 0.3-0.9 [facility] Comment on above: Order Comment: Relea se to patient->Immediate Performed By: #### L [id number], [id number] #### [facility] [address] [place] [address] MONOCYTES RELATIVE AUTO Normal [facility] Comment on above: Order Comment: Relea se to patient->Immediate Performed By: #### L [id number], [id number] #### [facility] [address] [place] [address] Monocytes/100 WBC (Bld) 9.5 % Normal [facility] Comment on above: Order Comment: Relea se to patient->Immediate Performed By: #### L [id number], [id number] #### [facility] [address] [place] [address] NEUTROPHIL ABS AUTO Normal [facility] Comment on above: Order Comment: Relea se to patient->Immediate Performed By: #### L [id number], [id number] #### [facility] [address] [place] [address] NEUTROPHIL ABS AUTO 3.7 K/uL Normal 2.0-7.3 [facility] Comment on above: Order Comment: Relea se to patient->Immediate Performed By: #### L [id number], [id number] #### [facility] [address] [place] [address] NEUTROPHILS RELATIVE AUTO Normal [facility] Comment on above: Order Comment: Relea se to patient->Immediate Performed By: #### L [id number], [id number] #### [facility] [address] [place] [address] Neutrophils/100 WBC (Bld) 55.6 % Normal [facility] Comment on above: Order Comment: Relea se to patient->Immediate Performed By: #### L [id number], [id number] #### [facility] [address] [place] [address] PLATELET COUNT Normal [facility] Comment on above: Order Comment: Relea se to patient->Immediate Performed By: #### L [id number], [id number] #### [facility] [address] [place] [address] Platelets (Bld) [#/Vol] 323 10*3/uL Normal 154-393 [facility] Comment on above: Order Comment: Relea se to patient->Immediate Performed By: #### L [id number], [id number] #### [facility] [address] [place] [address] RBC (Bld) [#/Vol] 5.68 10*6/uL Normal [facility] Comment on above: Order Comment: Relea se to patient->Immediate Performed By: #### L [id number], [id number] #### [facility] [address] [place] [address] RDW Normal [facility] Comment on above: Order Comment: Relea se to patient->Immediate Performed By: #### L [id number], [id number] #### [facility] [address] [place] [address] RED BLOOD CELL COUNT Normal 4.30-5.86 [facility] Comment on above: Order Comment: Relea se to patient->Immediate Performed By: #### L [id number], [id number] #### [facility] [address] [place] [address] WBC (Bld) [#/Vol] 6.6 10*3/uL Normal 4.0-10.5 [facility] Comment on above: Order Comment: Relea se to patient->Immediate Performed By: #### L [id number], [id number] #### [facility] [address] [place] [address] WHITE BLOOD CELL COUNT Normal [facility] Comment on above: Order Comment: Relea se to patient->Immediate Performed By: #### L [id number], [id number] #### [facility] [address] [place] [address] COMPLETE BLOOD COUNT WITH DI FFERENTIALon 07-18-2022 BASOPHILS ABSOLUTE COUNT (10*3/UL) BY AUTOMATED COUNT 0.0 K/uL Normal 0.0-0.3 [facility] Comment on above: Performed By: #### L [id number] ####[place] [phone] BASOPHILS RELATIVE PERCENT BY AUTOMATED COUNT 0.5 % Normal 0.0-2.0 [facility] Comment on above: Performed By: #### L [id number] ####[place] [phone] Eosinophils (Bld) [#/Vol] 0.4 10*3/uL Normal 0.0-0.5 [facility] Comment on above: Performed By: #### L [id number] ####[place] [phone] EOSINOPHILS RELATIVE PERCENT BY AUTOMATED COUNT 4.4 % Normal 0.0-5.0 [facility] Comment on above: Performed By: #### L [id number] ####[place] [phone] Erythrocyte distribution width (RBC) [Ratio] 12.8 % Normal <=15.0 [facility] Comment on above: Performed By: #### L [id number] ####[place] [phone] Hematocrit (Bld) [Volume fraction] 47.4 % Normal 37.5-51.0 [facility] Comment on above: Performed By: #### L [id number] ####[place] [phone] Hemoglobin (Bld) [Mass/Vol] 16.6 g/dL Normal 13.0-17.7 [facility] Comment on above: Performed By: #### L [id number] ####[place] [phone] Immature granulocytes (Bld) [#/Vol] 0.0 10*3/uL Normal 0.0-0.1 [facility] Comment on above: Performed By: #### L [id number] ####[place] [phone] Immature granulocytes/100 WBC (Bld) 0.2 % Normal <1.0 [facility] Comment on above: Performed By: #### L [id number] ####[place] [phone] LYMPHOCYTES ABSOLUTE COUNT (10*3/UL) BY AUTOMATED COUNT 3.0 K/uL Normal 0.9-4.1 [facility] Comment on above: Performed By: #### L [id number] ####[place] [phone] LYMPHOCYTES RELATIVE PERCENT BY AUTOMATED COUNT 36.2 % Normal 14.0-51.0 [facility] Comment on above: Performed By: #### L [id number] ####[place] [phone] MCH (RBC) [Entitic mass] 29.1 pg Normal 26.0-34.0 [facility] Comment on above: Performed By: #### L [id number] ####[place] [phone] MCHC (RBC) [Mass/Vol] 35.0 g/dL Normal 30.7-35.5 [place] Comment on above: Performed By: #### L [id number] ####[place] [phone] MCV (RBC) [Entitic vol] 83.0 fL Normal 80.0-100.0 [facility] Comment on above: Performed By: #### L [id number] ####[place] [phone] MEAN PLATELET VOLUME (FL) BY AUTOMATED COUNT 8.4 fL Normal 7.2-11.7 [facility] Comment on above: Performed By: #### L [id number] ####[place] [phone] MONOCYTES ABSOLUTE COUNT (10*3/UL) BY AUTOMATED COUNT 0.5 K/uL Normal 0.2-1.0 [facility] Comment on above: Performed By: #### L [id number] ####[place] [phone] MONOCYTES RELATIVE PERCENT BY AUTOMATED COUNT 6.6 % Normal 4.0-12.0 [facility] Comment on above: Performed By: #### L [id number] ####[place] [phone] NEUTROPHILS ABSOLUTE COUNT (10*3/UL) BY AUTOMATED COUNT 4.3 K/uL Normal 1.8-7.5 [facility] Comment on above: Performed By: #### L [id number] ####[place] [phone] NEUTROPHILS RELATIVE PERCENT BY AUTOMATED COUNT 52.1 % Normal 42.0-80.0 [facility] Comment on above: Performed By: #### L [id number] ####[place] [phone] NRBC (PER 100 WBCS) BY AUTOMATED COUNT 0 /100 WBCs Normal <=0 [facility] Comment on above: Performed By: #### L [id number] ####[place] [phone] PLATELETS (10*3/UL) BY AUTOMATED COUNT 330 K/uL Normal 140-400 [facility] Comment on above: Performed By: #### L [id number] ####[place] [phone] RBC (Bld) [#/Vol] 5.71 10*6/uL Normal 4.14-5.80 [facility] Comment on above: Performed By: #### L [id number] ####[place] [phone] TO SCAN RESULT USE SCAN ICON Normal [facility] Comment on above: Performed By: #### L [id number] ####[place] [phone] WBC (Bld) [#/Vol] 8.2 10*3/uL Normal 3.5-10.9 [facility] Comment on above: Performed By: #### L [id number] ####[place] [phone] COMPREHENSIVE METABOLIC PANE Dilip 07-18-2022 AG RATIO Normal [facility] Comment on above: Order Comment: KDIGO 2012 GFR Categories StageDescriptioneGFR (mL/min/1.73m2) W4Zrubyx or high>=90 R9Hlaruh kwvplbcta70-13 Z0nPskgnf to moderately rgvvgeafh30-27 A6kXcdvpmaxlx to severely sofjcqxhg81-48 B8Sfjjinho stkfolvhj26-72 J5Hvsdkq Failure<15 Release to patient->Immediate Performed By: #### L AB99, LAB17 #### [facility] [address] [place] [address] ALBUMIN Normal [facility] Comment on above: Order Comment: KDIGO 2012 GFR Categories StageDescriptioneGFR (mL/min/1.73m2) U8Wwbqhk or high>=90 D6Wrabtw bkfdewaos53-04 Q9mSjoctc to moderately plnxfuodf84-64 X6yTpwdzrbiwu to severely zktzypguf20-42 A7Fbjypypx hgqjasphf49-47 A4Ulkmms Failure<15 Release to patient->Immediate Performed By: #### L AB99, LAB17 #### [facility] [address] [place] [address] Albumin [Mass/Vol] 4.5 g/dL Normal 3.5-5.7 [facility] Comment on above: Order Comment: [facility] 2012 GFR Categories StageDescriptioneGFR (mL/min/1.73m2) D4Omioqc or high>=90 R8Uenjvr jqukairqg51-20 L6jVluxfm to moderately cdqfrragi98-77 T0jPkalfvavzm to severely ckgxrdbej60-49 J2Qxiqrzrl pzlhupbjt48-88 N1Fdbfbe Failure<15 Release to patient->Immediate Performed By: #### L AB99, LAB17 #### [facility] [address] [place] [address] Albumin/Globulin [Mass ratio] 1.7 {ratio} Normal 1.0-2.0 [facility] Comment on above: Order Comment: IGO 2012 GFR Categories StageDescriptioneGFR (mL/min/1.73m2) U7Kqzzkf or high>=90 A6Bujdzn -48 T7nCsukdt to moderately -61 C3tHsxvftszgf to severely fodijggaj34-23 K8Altgoozl ifirbhhrc80-69 W6Kwqtzg Failure<15 Release to patient->Immediate Performed By: #### L AB99, LAB17 #### [facility] [address] [place] [address] ALKALINE PHOSPHATASE Normal [facility] Comment on above: Order Comment: IGO 2011 GFR Categories StageDescriptioneGFR (mL/min/1.73m2) R0Oifxzu or high>=90 B9Qlumio unxnajimz09-95 B9sYezyro to moderately aazduooqq75-71 C8pAobytuitxq to severely njrzyxhgl08-26 F2Rolpiorb bqubmspqp40-77 K5Hheqaw Failure<15 Release to patient->Immediate Performed By: #### L AB99, LAB17 #### [facility] [address] [place] [address] ALP [Catalytic activity/Vol] 101 U/L Normal 34-104 [facility] Comment on above: Order Comment: KDIGO 2012 GFR Categories StageDescriptioneGFR (mL/min/1.73m2) Z6Gdlckp or high>=90 S0Pwuatn rkucnwmwo16-55 S8zOfoyct to moderately wmpyxjibm05-53 X8jOvqnstrbzy to severely euzunsojl09-30 K4Cugimpii aifcomamq36-39 F1Dmwppe Failure<15 Release to patient->Immediate Performed By: #### L AB99, LAB17 #### [facility] [address] [place] [address] ALT (SGPT) Normal [facility] Comment on above: Order Comment: [facility] 2012 GFR Categories StageDescriptioneGFR (mL/min/1.73m2) F0Hzdanm or high>=90 J7Xbezym tqklpsenk76-14 U1vIobvfo to moderately sszgrtsfo74-70 C7tAyyjbfzera to severely khnxemhor64-91 U9Dreghanf jbfkwhgby85-72 B6Ywrnya Failure<15 Release to patient->Immediate Performed By: #### L AB99, LAB17 #### [facility] [address] [place] [address] ALT [Catalytic activity/Vol] 54 U/L Normal 7-52 [facility] Comment on above: Order Comment: IGO 2012 GFR Categories StageDescriptioneGFR (mL/min/1.73m2) J7Xdcmbm or high>=90 N8Mvbqeh mistdlggf57-49 D3uLwbiab to moderately -38 G3eUuwrgiwccv to severely siapmwisn23-52 T6Vrgdaoep -16 P5Ibbpbi Failure<15 Release to patient->Immediate Performed By: #### L AB99, LAB17 #### [facility] [address] [place] [address] ANION GAP Normal [facility] Comment on above: Order Comment: [facility] 2012 GFR Categories StageDescriptioneGFR (mL/min/1.73m2) C4Bacdfk or high>=90 P1Rosfch snbcrdpot82-66 Z6hTzrzmb to moderately yxsdyilud21-29 G0dCduwjknzvh to severely xehnlaswa22-57 V8Vlfhxtew unprvnzdd38-53 G0Ehwfhi Failure<15 Release to patient->Immediate Performed By: #### L AB99, LAB17 #### [facility] [address] [place] [address] Anion gap [Moles/Vol] 11 mmol/L Normal 7-16 [facility] Comment on above: Order Comment: [facility] 2011 GFR Categories StageDescriptioneGFR (mL/min/1.73m2) J0Ehamzt or high>=90 D3Hnihcp vwdayxapz04-67 C3hVfcfys to moderately -05 K2cNyuicfgjkq to severely codftrpfh76-59 R8Lzaedlmt luzwkqbwt85-67 P9Lzaxrm Failure<15 Release to patient->Immediate Performed By: #### L AB99, LAB17 #### [facility] [address] [place] [address] AST (SGOT) Normal [facility] Comment on above: Order Comment: IGO 2011 GFR Categories StageDescriptioneGFR (mL/min/1.73m2) Z6Qaagdv or high>=90 B4Xvaptn jgelhsodk71-53 U7hKulzbi to moderately -50 P1xOvdfyvawrg to severely sgnzmbeho62-14 M5Cpttecvu zmtdijuyu28-56 M2Bsgnlr Failure<15 Release to patient->Immediate Performed By: #### L AB99, LAB17 #### [facility] [address] [place] [address] AST [Catalytic activity/Vol] 24 U/L Normal 13-39 [facility] Comment on above: Order Comment: IGO 2011 GFR Categories StageDescriptioneGFR (mL/min/1.73m2) M1Phunut or high>=90 C5Vzextj fqrigjksl12-30 R0dEophrz to moderately nwyieafsp34-13 T8xIbhcbbspto to severely -85 P6Wqdkkgay hsnjxwhui16-52 R3Ynzgkj Failure<15 Release to patient->Immediate Performed By: #### L AB99, LAB17 #### [facility] [address] [place] [address] Bilirubin [Mass/Vol] 0.4 mg/dL Normal 0.3-1.0 [facility] Comment on above: Order Comment: [facility] 2011 GFR Categories StageDescriptioneGFR (mL/min/1.73m2) Q1Dngvxf or high>=90 J8Gdcpua dajjefeti03-43 A4lHitrqt to moderately vejkujyft81-53 E9jKwnvdwhmyf to severely upxzadjfn99-55 R4Tywqwszz bkxcevduk11-02 D3Ukoocp Failure<15 Release to patient->Immediate Performed By: #### L AB99, LAB17 #### [facility] [address] [place] [address] BLOOD UREA NITROGEN Normal [facility] Comment on above: Order Comment: [facility] 2012 GFR Categories StageDescriptioneGFR (mL/min/1.73m2) W9Besgsr or high>=90 Y2Dcnmmz oogtpdgae99-84 S4mLdyunn to moderately igsbhwvwc38-42 W4kBecokeyxkz to severely uqzwipegs04-82 F6Vofmhyfq hawiqewtd80-22 V1Njphap Failure<15 Release to patient->Immediate Performed By: #### L AB99, LAB17 #### [facility] [address] [place] [address] CALCIUM Normal [facility] Comment on above: Order Comment: K[facility]O 2011 GFR Categories StageDescriptioneGFR (mL/min/1.73m2) X9Apcnyg or high>=90 D2Szbzlz oodcinhfa01-60 J3sLehheq to moderately qgdawhloe08-60 X5xZzcasyxnjy to severely cueszaivb80-07 H2Zaavbuwa busprckyg26-60 Z1Fvorjg Failure<15 Release to patient->Immediate Performed By: #### L AB99, LAB17 #### [facility] [address] [place] [address] Calcium [Mass/Vol] 9.4 mg/dL Normal 8.6-10.2 [facility] Comment on above: Order Comment: KDIGO 2012 GFR Categories StageDescriptioneGFR (mL/min/1.73m2) S8Uzhzhq or high>=90 D3Ftdtoj xcejejxat16-47 X7iGpuwep to moderately qxctmcffi79-21 A5aAlqyaojpec to severely wtajgrkse75-48 P9Pppbcqix qfkcbcydw96-73 T1Nprfjb Failure<15 Release to patient->Immediate Performed By: #### L AB99, LAB17 #### [facility] [address] [place] [address] CARBON DIOXIDE Normal [facility] Comment on above: Order Comment: KDIGO 2012 GFR Categories StageDescriptioneGFR (mL/min/1.73m2) E9Fayiuy or high>=90 I4Mbkofq puqajvulh64-24 E5uMbydrk to moderately xdfmrrowm35-19 U4wWgjlfzkayi to severely unfmhtuxo60-96 O7Vdlnwcun jyllysyte00-36 P9Kfocsd Failure<15 Release to patient->Immediate Performed By: #### L AB99, LAB17 #### [facility] [address] [place] [address] CHLORIDE Normal [facility] Comment on above: Order Comment: IGO 2011 GFR Categories StageDescriptioneGFR (mL/min/1.73m2) N1Svefaz or high>=90 L2Ocwfsb ithykqkom51-36 K0tIczclj to moderately pyotsemlm03-34 U8nKjrmxsxvel to severely gwzubprli42-33 V7Wnoxinbk -33 W9Ztuoms Failure<15 Release to patient->Immediate Performed By: #### L AB99, LAB17 #### [facility] [address] [place] [address] Chloride [Moles/Vol] 107 mmol/L Normal 98-107 [facility] Comment on above: Order Comment: IGO 2011 GFR Categories StageDescriptioneGFR (mL/min/1.73m2) M1Phvmvv or high>=90 U4Yqzewy vfrykvrkr63-18 Y6qRtexzv to moderately qumwlrwjw74-72 W2iVgqowmvbap to severely cgeneikay03-17 P4Iygzrfck kocoguzud24-66 M0Eykmfq Failure<15 Release to patient->Immediate Performed By: #### L AB99, LAB17 #### [facility] [address] [place] [address] CO2 [Moles/Vol] 21 mmol/L Normal 21-31 [facility] Comment on above: Order Comment: KDIGO 2011 GFR Categories StageDescriptioneGFR (mL/min/1.73m2) Y4Jtorga or high>=90 K3Ybebdj dztcqeodp07-13 X8lYtkwsq to moderately yibvipjxg87-65 K2cHlumjppiby to severely frghjhumr21-62 M7Rstexvdb ovcdypkdg23-96 N8Ycgivg Failure<15 Release to patient->Immediate Performed By: #### L AB99, LAB17 #### [facility] [address] [place] [address] CREATININE Normal [facility] Comment on above: Order Comment: KDIGO 2012 GFR Categories StageDescriptioneGFR (mL/min/1.73m2) K7Oznaqe or high>=90 V1Veornx wyencveym49-03 D2kJnrkwj to moderately qneezevqq18-27 Z1gNfsayejrxo to severely zughfkxpm77-18 M6Rujulgnu jjqrgnvuf95-35 O1Fmeijp Failure<15 Release to patient->Immediate Performed By: #### L AB99, LAB17 #### [facility] [address] [place] [address] Creatinine [Mass/Vol] 1.13 mg/dL Normal 0.7-1.3 [facility] Comment on above: Order Comment: KDIGO 2012 GFR Categories StageDescriptioneGFR (mL/min/1.73m2) J1Nhdtki or high>=90 G0Cjbcpk fbylvjexr00-02 V4pEphcav to moderately jwzqwfacq11-10 C2mAvechxzjaw to severely cfafoypxa50-12 S9Uizxulcp -12 W3Pwenjt Failure<15 Release to patient->Immediate Performed By: #### L AB99, LAB17 #### [facility] [address] [place] [address] GFR MALE Normal [facility] Comment on above: Order Comment: KDIGO 2012 GFR Categories StageDescriptioneGFR (mL/min/1.73m2) H7Pppwbl or high>=90 L2Fhhlrn eajvbjxmg12-55 U3tBmvctb to moderately iowtbbflo31-63 S4bIrgcbuhlhk to severely udtemospu81-65 A6Qmyfydtd -29 R2Veulob Failure<15 Release to patient->Immediate Result Comment: Repo rted eGFR is based on the CKD-EPI 2020 equation that does not use a race coefficient. Performed By: #### L AB99, LAB17 #### [facility] [address] [place] [address] GFR/1.73 sq M.predicted among non-blacks MDRD (S/P/Bld) [Vol rate/Area] 85 mL/min/{1.73_m2} Normal >90 [facility] Comment on above: Order Comment: KDIGO 2012 GFR Categories StageDescriptioneGFR (mL/min/1.73m2) Y4Hqbwvn or high>=90 Y6Zvpops bcumzvocc08-67 Y3pEykpqb to moderately urxziezil31-53 Z8kJwjkdgtmwc to severely obrbmjpaq47-20 P8Onpxiufl rwtgwpezw98-74 K9Vifsto Failure<15 Release to patient->Immediate Performed By: #### L AB99, LAB17 #### [facility] [address] [place] [id number] GLOBULIN Normal [facility] Comment on above: Order Comment: KDIGO 2012 GFR Categories StageDescriptioneGFR (mL/min/1.73m2) F9Yoifnu or high>=90 V6Wpqxrj wuwdqcdev44-29 V1nJqlozf to moderately uqhvnoyts53-33 D8cNsewpmnuse to severely -99 T6Ojqizlzx zrsarxiqs35-00 F2Knjegq Failure<15 Release to patient->Immediate Performed By: #### L AB99, LAB17 #### [facility] [address] [place] [id number] Globulin (S) [Mass/Vol] 2.7 g/dL Normal 2.6-4.2 [facility] Comment on above: Order Comment: KDIGO 2012 GFR Categories StageDescriptioneGFR (mL/min/1.73m2) N7Etamsh or high>=90 C1Oupkoy aoqfruudy71-45 F1cCkrxdo to moderately wupzpmwvm38-50 E1oFfgiplfidk to severely -87 Q6Iunfribc anxpgytqi24-22 B0Qwqgea Failure<15 Release to patient->Immediate Performed By: #### L AB99, LAB17 #### [facility] [address] [place] [address] GLUCOSE Normal [facility] Comment on above: Order Comment: KDIGO 2012 GFR Categories StageDescriptioneGFR (mL/min/1.73m2) A0Itjfdu or high>=90 Y4Tedirf gyfgcpnyy75-34 H9hTycliq to moderately jfljbvkve25-24 N3aAgwqxhwkdl to severely xdlsqzqeo94-80 P3Nhikjnjb dclbreubt16-33 R5Mqkveb Failure<15 Release to patient->Immediate Performed By: #### L AB99, LAB17 #### [facility] [address] [place] [address] Glucose [Mass/Vol] 91 mg/dL Normal 74-109 [facility] Comment on above: Order Comment: [facility] 2012 GFR Categories StageDescriptioneGFR (mL/min/1.73m2) G4Apbtui or high>=90 O6Tjvygu bvoxeswkz41-16 Z6bYwvebu to moderately ljfeoavqe18-90 C8qHghhfskcsa to severely ucubtzzln52-10 N4Nuupwoed sttwszjiv49-57 N0Wyqcsb Failure<15 Release to patient->Immediate Performed By: #### L AB99, LAB17 #### [facility] [address] [place] [address] POTASSIUM Normal [facility] Comment on above: Order Comment: IGO 2012 GFR Categories StageDescriptioneGFR (mL/min/1.73m2) W7Fozlhk or high>=90 L1Rcqico igmyocwnq20-00 C2eQfdntp to moderately ucecrvwhl54-48 M7gIbfpbdrtos to severely ooivrzjhf92-45 Z7Cmulsfgc rnirrvyid97-99 X3Vvxfxq Failure<15 Release to patient->Immediate Performed By: #### L AB99, LAB17 #### [facility] [address] [place] [address] Potassium [Moles/Vol] 4.2 mmol/L Normal 3.5-5.1 [facility] Comment on above: Order Comment: IGO 2012 GFR Categories StageDescriptioneGFR (mL/min/1.73m2) W3Jgygfl or high>=90 E5Pcibho eymxqdqgd70-55 Z0iGfajzc to moderately niguqjhne99-13 I8uJekqkzouqc to severely pzxwpfamz84-54 Z0Hrsarfny cphfgicvm75-95 V5Mpsmpa Failure<15 Release to patient->Immediate Performed By: #### L AB99, LAB17 #### [facility] [address] [place] [address] Protein [Mass/Vol] 7.2 g/dL Normal 6.0-8.3 [facility] Comment on above: Order Comment: IGO 2012 GFR Categories StageDescriptioneGFR (mL/min/1.73m2) J3Leilol or high>=90 V4Pnaxlb wyqhrqamv79-56 K9nNshupk to moderately pxrmaneik93-43 E7eLjwlaawsww to severely nbeazgtqc77-41 Y8Vvaqrgta -93 B6Igwjzg Failure<15 Release to patient->Immediate Performed By: #### L AB99, LAB17 #### [facility] [address] [place] [address] PROTEIN, TOTAL Normal [facility] Comment on above: Order Comment: IGO 2012 GFR Categories StageDescriptioneGFR (mL/min/1.73m2) C3Ckdkld or high>=90 Q9Ooazwy mavgrhbwb13-60 K4eJmdocn to moderately gtrtrscox36-94 D0aGymskikhib to severely mhmjuyeih27-10 U8Euhtvlpe pocqmddxf20-99 W3Cvjmkd Failure<15 Release to patient->Immediate Performed By: #### L AB99, LAB17 #### [facility] [address] [place] [address] SODIUM Normal [facility] Comment on above: Order Comment: I[facility] 2011 GFR Categories StageDescriptioneGFR (mL/min/1.73m2) P3Uzxuze or high>=90 W9Xvcxuj bqrukafzt34-14 H0sBrdsoc to moderately dinewqgxr63-89 I7pNfmxehdzul to severely qpukxzkhb35-17 L4Vmljajrk vdldlljte85-90 Z0Aifkjs Failure<15 Release to patient->Immediate Performed By: #### L AB99, LAB17 #### [facility] [address] [place] [address] Sodium [Moles/Vol] 139 mmol/L Normal 136-145 [facility] Comment on above: Order Comment: [facility] 2012 GFR Categories StageDescriptioneGFR (mL/min/1.73m2) U4Mhtqtc or high>=90 H0Ygrhnu -77 M2uWpydsr to moderately ovgliwahx96-60 H3bGruzchqbzz to severely mgcjsitvn47-36 X5Bphyjbdn cpavtdssf59-67 C0Jkprix Failure<15 Release to patient->Immediate Performed By: #### L AB99, LAB17 #### [facility] [address] [place] [address] TOTAL BILIRUBIN Normal [facility] Comment on above: Order Comment: [facility] 2012 GFR Categories StageDescriptioneGFR (mL/min/1.73m2) H9Xnlkkk or high>=90 P7Vllixu -87 C1fMonqgu to moderately jcjrihxnm72-14 C3jHxmnpjwdoa to severely oksgnocyr53-83 P9Axfyusia cyvwgduvo00-27 E7Ymtcwz Failure<15 Release to patient->Immediate Performed By: #### L AB99, LAB17 #### [facility] [address] [place] [address] Urea nitrogen [Mass/Vol] 16 mg/dL Normal 7-25 [facility] Comment on above: Order Comment: K[facility]O 2012 GFR Categories StageDescriptioneGFR (mL/min/1.73m2) C0Iwovju or high>=90 Z1Fqczqb rxtxlifyg76-24 C9jBchflh to moderately uyxamvavo33-83 T0aYkfnbyvgnu to severely nkdruibvw15-33 W7Wjfascnp koditmsxr79-54 A1Ceeujg Failure<15 Release to patient->Immediate Performed By: #### L AB99, LAB17 #### [facility] [address] [place] [address] Consultson 07-18-2022 Consults Encounter Department : [facility] Consults by ROSSANA May LSW at 07/18/2022 9:29 AM Author: ROSSANA May LSWService: Crisis WorkerAuthor Type: CRISTOBAL Specialist Filed: 07/18/2022 3:15 PMDate of Service: 07/18/2022 9:29 AMStatus: Signed Parts Data Writer: ROSSANA May LSW (CRISTOBAL Specialist) Consult Orders 1. Behavioral Health Assessment Consult [[id number]] ordered by Rosalinda Cali DO at 07/18/22 0831 BEHAVIORAL HEALTH ASSESSMENT TEAM CONSULT DATE: 07/18/22 Consult: Other- Wants alcohol rehab Narrative: Patient presents today requesting rehab for his drinking. He was seen last week for the same, we provided him a cab for a walk-in at [facility]. He states he stayed at [facility] for a few days and then left AMA. He was at [facility] 2x in the last week and left AMA, [facility] 8 days ago and left AMA. Per [facility] intake--patient was discharged for inappropriate behavior with other patients. Reports his last drink was 7 hours ago, last night he drank almost a bottle of whiskey. He reports having shakes, sweats, nausea, anxiety, and tension. Denies having any history of seizures. He has been drinking heavily this way off/on for 17 years. Patient requested referral to [facility] which was made. [facility] accepted on the condition that patient signs a behavioral contract upon arrival. Physician/ Nurse Contact: -Attending MD/REZA/Nurse: Dr. Anthony -Comment: Updated on plan Disposition: Patient to [facility] at 1515 via KTS Thank you for involving The Behavioral Health Team in the care of your patient. Please call [phone] for any needs or questions Normal [facility] DRUG SCREEN, URINEon 023 AMPHETAMINE, URINE Not detected Normal Not Detected [facility] Comment on above: Performed By: #### L [id number] ####[place] [phone] BARBITURATES, URINE Not detected Normal Not Detected [facility] Comment on above: Performed By: #### L [id number] ####[place] [phone] BENZODIAZEPINE, URINE Not detected Normal Not Detected [facility] Comment on above: Performed By: #### L [id number] ####[place] [phone] COCAINE, URINE Not detected Normal Not Detected [facility] Comment on above: Performed By: #### L [id number] ####[place] [phone] COMMENT The submitted urine specimen was screened for the presence of Normal [facility] Comment on above: Result Comment: the following compounds at the listed detection limits:Amphetamine, Tegfdrwlmmgnzuu9276 ng/hfKkemboxepdy933 ng/ukBqoxbtogftmbvu895 ng/mlCocaine Vuigipsslg539 ng/mlMarijuana (THC)50 ng/cjEupypxw426 ng/ml Performed By: #### L [id number] ####[place] [phone] MARIJUANA (THC), URINE Not detected Normal Not Detected [facility] Comment on above: Performed By: #### L [id number] ####[place] [phone] OPIATES, URINE Not detected Normal Not Detected [facility] Comment on above: Performed By: #### L [id number] ####[place] [phone] ED NOTESon 07-18-2022 [facility] Ed Note Normal [facility] Ed Note Normal [facility] Ed Note Normal [facility] Ed Note ED Note: Last filed note HNO ID: [id number] Author: Bella Gomez RN Service: ? Author Type: Registered Nurse Filed: 07/17/22 2242 Note Text: Bed: GRN19 Expected date: Expected time: Means of arrival: Comments: medic Normal [facility] ED PROVIDER NOTESon 07-19-19 [facility] Ed Provider Note Normal [facility] Ed Provider Note Normal [facility] ED Provider Noteson 07-19-19 ED Provider Notes Encounter Department : [facility] ED Provider Notes by Renny Anthony MD at 07/18/2022 9:06 AM Author: VINEET Nietoervice: -Author Type: ED Physician Filed: 07/18/2022 2:43 PMDate of Service: 07/18/2022 9:06 AMStatus: Signed Parts Data Writer: Renny Anthony MD (ED Physician) I saw and evaluated the patient and directed the plan of care. I have discussed with the resident, Dr. Cali, and agree with the findings and plan. FINAL IMPRESSION(S) ICD-10-CM 1.Abdominal pain, generalized R10.84 2.Alcohol abuse F10.10 3.Encounter for rehabilitation Z51.89 4.Polysubstance abuse (HCC) F19.10 DISPOSITION PLAN Transfer to [facility] for alcohol treatment DISCHARGE MEDICATION(S) / CHANGES TO HOME MEDICATIONS New Prescriptions No medications on file CHIEF COMPLAINT Chief Complaint Patient presents with -Alcohol Problem -Abdominal Pain TRIAGE NOTE: Leann Contreras RN 07/18/2022 8:24 AM Addendum Pt c/o upper abd pain AND states 'I need help with alcohol'. Reports last drink was approx 6-7 hrs ago, drinks whiskey daily. HPI Patient in bed GVEDB13/B13 presented with complaining of alcohol problem. Patient reports daily alcohol drinking whiskey. Last drink was 7 to 8 hours ago. He reports a history of prior withdrawal symptoms without seizure. Complaining of mild abdominal discomfort and some nausea. GARCÍA PORTION OF PHYSICAL EXAM ED Triage Vitals [07/18/22 0820] BP131/83 Temp98 ?F (36.7 ?C) Pulse76 Resp18 NhW543 % Weight Marta Coma Scale Score15 BMI (Calculated) Well-appearing nontoxic male. He has normal heart rate and rhythm. Lungs are clear belly is mildly tender in the epigastric area that rebound. LAB RESULTS CBC W/DIFF - Abnormal; Notable for the following components: ResultValueRef RangeStatus MCV84.7 (*)85.0 - 99.0 flFinal All other components within normal limits COMPREHENSIVE METABOLIC PANEL - Abnormal; Notable for the following components: ALT54 (*)7 - 52 U/LFinal All other components within normal limits Narrative: KDIGO 2012 GFR Categories Stage Description eGFR (mL/min/1.73m2) G1 Normal or high >=90 G2 Mildly decreased 60-89 G3a Mildly to moderately decreased 45-59 G3b Moderately to severely decreased 30-44 G4 Severely decreased 15-29 G5 Kidney Failure <15 SERUM TOX SCREEN - Abnormal; Notable for the following components: Acetaminophen Level<10 (*)10 - 30 ug/mLFinal Xptjwuj54 (*)<10 mg/dLFinal Salicylate<2.5 (*)3.0 - 20.0 mg/dLFinal All other components within normal limits Narrative: Salicylate Therapeutic Range: 20-25 mg/dL Acetaminophen Therapeutic Range:10.00-30.00 ug/mL URINE DRUG SCREEN - Abnormal; Notable for the following components: Benzodiazepine UrinePositive (*)NegativeFinal CocainePositive (*)NegativeFinal All other components within normal limits Narrative: Drug Screen Cut-off values: Amphetamines 300 ng/ml Benzodiazepines 200 ng/ml Barbiturates 200 ng/ml Cocaine metabolite 300 ng/ml Cannabinoids 50 ng/ml Opiates 300 ng/ml * Results are unconfirmed screening results and should only be used for medical purposes. URINE CULTURE, CONDITIONAL - Abnormal; Notable for the following components: Urine ColorLight-Yellow (*)YellowFinal Protein UrinalysisTrace (*)Negative mg/dLFinal All other components within normal limits Narrative: Culture of the urine specimen was not completed as criteria were not met. LACTATE/LACTIC ACID - Normal LIPASE - Normal URINE CULTURE, CONDITIONAL, NOT PERFORMED DIFFERENTIAL DIAGNOSIS / MEDICAL DECISION MAKING Alcohol intoxication, dehydration, alcohol withdrawal ED COURSE Repeat Vitals: BP: 116/75 (07/19 1199) Temp: 98 ?F (36.7 ?C) (07/19 819) Pulse: 61 (07/19 1199) Resp: 18 (07/19 1199) SpO2: 100 % (07/19 1199) FiO2 (%): -- O2 Flow Rate (L/min): -- Cardiac (WDL): -- Cardiac Rhythm: -- Medications ketorolac (TORADOL) injection 15 mg (15 mg IV Push Given 07/18/22 0843) ondansetron (ZOFRAN) injection 4 mg (4 mg IV Push Given 07/18/22 0843) 0.9 % sodium chloride 1,000 mL bolus ( Intravenous Stopped/Completed 07/18/22 1123) Patient was given IV fluids Toradol and Zofran. He had no active signs of withdrawal and his blood pressure and vital signs within normal limits. Urine drug screen positive for benzos and cocaine. Alcohol level 55. Discussed with behavioral health. [facility]. Electronically signed by: Renny Anthony MD, 07/18/2022 Renny Anthony MD 07/18/22 4333 Normal [facility] ED Provider Notes Encounter Department : [facility] ED Provider Notes by Rosalinda Cali DO at 07/18/2022 8:22 AM Author: Eusebia Newtonrvice: Emergency MedicineAuthor Type: Resident Filed: 07/18/2022 3:04 PMDate of Service: 07/18/2022 8:22 AMStatus: Signed Parts Data Writer: Rosalinda Cali DO (Resident)Cosigner: Renny Anthony MD at 07/19/2022 7:45 PM CHIEF COMPLAINT Chief Complaint Patient presents with -Alcohol Problem -Abdominal Pain TRIAGE NOTE: Leann Contreras RN 07/18/2022 8:24 AM Addendum Pt c/o upper abd pain AND states 'I need help with alcohol'. Reports last drink was approx 6-7 hrs ago, drinks whiskey daily. YANY Roman is a 37 y.o. male in bed GVEDB13/B13 with history of alcoholism for the past 17 years who presents to the ED with chief complaint of wanting rehab because the alcohol is killing me. States that he did not follow-up with community resources provided to him 3 days ago when he was in the ED for alcoholism. States that he just went home and drink. States that his last drink was approximately 6 to 7 hours ago and was around 1/5 of whiskey. States that he does have history of alcohol withdrawal in which she gets extremely shaky. States he did have a seizure at 1 point during an episode of alcohol withdrawal in [place]. Currently complaining of diffuse abdominal pain, dry mouth. Denied excessive nausea, vomiting, diarrhea, headache, hallucinations, fevers or chills. Denies any suicidal or homicidal ideation. Denies any other drug use. No other associated symptoms. Additional history and source includes patient PERTINENT REVIEW OF SYSTEMS Encounter for rehab, diffuse abdominal pain, dry mouth PAST MEDICAL HISTORY / FAMILY HISTORY History reviewed. No pertinent past medical history. Reviewed. No pertinent family history. Above past medical conditions reviewed and verified by me. SOCIAL HISTORY Social History Socioeconomic History -Marital status:Single Tobacco Use -Smoking status:Some Days Types:Cigarettes -Smokeless tobacco:Never Substance and Sexual Activity -Alcohol use:Yes Comment: fifth of whiskey a day Above social elements reviewed and verified by me. SURGICAL HISTORY History reviewed. No pertinent surgical history. CURRENT MEDICATIONS No outpatient medications have been marked as taking for the 07/18/22 encounter (Hospital Encounter). ALLERGIES No Known Allergies PERTINENT PHYSICAL EXAM VITAL SIGNS: ED Triage Vitals [07/18/22 0820] BP131/83 Temp98 ?F (36.7 ?C) Pulse76 Resp18 VfK198 % Weight Alexander Coma Scale Score15 BMI (Calculated) Constitutional: Well developed, Well nourished, anxious appearing HENT: Atraumatic, Normocephalic. Bilateral external ears normal, Nose normal, Oropharynx moist Eyes: PERRL, EOMI, No discharge, Conjunctiva normal, No scleral icterus. Cardiovascular: Regular rate, regular rhythm, no murmurs. No peripheral pitting edema. DP and radial pulses 2+ bilaterally. Cap refill less than 2 seconds throughout. Thorax AND Lungs: No respiratory distress, normal respiratory effort. Clear to auscultation bilaterally. No wheezing, rhonchi, or crackles. Chest wall nontender. Skin: Warm, dry. No rash, erythema, ecchymosis. Abdomen: Soft, diffuse discomfort to palpation without focal tenderness. No distension. Bowel sounds present. No rebound or guarding Musculoskeletal: -Neck: Normal range of motion, Supple -Extremities: No major deformities noted. Moving all extremities appropriately. Neurologic: Alert AND oriented x 3, cranial nerves grossly intact, Normal sensory function, Normal motor function, No focal deficits noted. Psychiatric: Affect and mood appropriate for situation LAB RESULTS Normal labs (listed in bold) and specific abnormal labs include: CBC W/DIFF - Abnormal; Notable for the following components: ResultValueRef RangeStatus MCV84.7 (*)85.0 - 99.0 flFinal All other components within normal limits COMPREHENSIVE METABOLIC PANEL - Abnormal; Notable for the following components: ALT54 (*)7 - 52 U/LFinal All other components within normal limits Narrative: KDIGO 2012 GFR Categories Stage Description eGFR (mL/min/1.73m2) G1 Normal or high >=90 G2 Mildly decreased 60-89 G3a Mildly to moderately decreased 45-59 G3b Moderately to severely decreased 30-44 G4 Severely decreased 15-29 G5 Kidney Failure <15 SERUM TOX SCREEN - Abnormal; Notable for the following components: Acetaminophen Level<10 (*)10 - 30 ug/mLFinal Rtvegua46 (*)<10 mg/dLFinal Salicylate<2.5 (*)3.0 - 20.0 mg/dLFinal All other components within normal limits Narrative: Salicylate Therapeutic Range: 20-25 mg/dL Acetaminophen Therapeutic Range:10.00-30.00 ug/mL URINE DRUG SCREEN - Abnormal; Notable for the following components: Benzodiazepine UrinePositive (*)NegativeFinal CocainePositive (*)NegativeFinal All other components within normal limits Narrative: Drug Screen Cut-off values: (more content not included)... Normal [facility] ED TRIAGEon 07-18-2022 [facility] Ed Triage Note Normal [facility] ETHANOLon 07-18-2022 COMMENT For Medical Purposes only. Abnormal [facility] Comment on above: Performed By: #### L [id number] ####[place] [phone] ETHANOL, SERUM/PLASMA 184 mg/dL High <10 [facility] Comment on above: Performed By: #### L [id number] ####[place] [phone] HEPATIC FUNCTION PANELon Albumin [Mass/Vol] 4.3 g/dL Normal 3.5-5.2 [facility] Comment on above: Performed By: #### L [id number] ####[place] [phone] ALP [Catalytic activity/Vol] 122 U/L Normal 23-144 [facility] Comment on above: Performed By: #### L [id number] ####[place] [phone] ALT [Catalytic activity/Vol] 57 U/L Normal 0-60 [facility] Comment on above: Performed By: #### L [id number] ####[place] [phone] AST [Catalytic activity/Vol] 28 U/L Normal 0-46 [facility] Comment on above: Result Comment: Hemo lysis present. Results may be affected. Performed By: #### L [id number] ####[place] [phone] BILIRUBIN, DIRECT < Normal 0.0-4.0 [facility] Comment on above: Result Comment: Hemo lysis present. Results may be affected. Performed By: #### L [id number] ####[place] [phone] BILIRUBIN, INDIRECT Normal [facility] Comment on above: Result Comment: Unab le to calculate. Performed By: #### L [id number] ####[place] [phone] BILIRUBIN, TOTAL < Normal 0.0-1.2 [facility] Comment on above: Performed By: #### L [id number] ####[place] [phone] Protein [Mass/Vol] 7.6 g/dL Normal 6.0-8.3 [facility] Comment on above: Performed By: #### L [id number] ####[place] [phone] LACTATE/LACTIC ACIDon 2022 Lactate [Moles/Vol] 1.5 mmol/L Normal 0.5-2.0 [facility] Comment on above: Order Comment: Relea se to patient->Immediate Performed By: #### L [id number] #### [facility] [address] [place] [address] LACTIC ACID Normal [facility] Comment on above: Order Comment: Relea se to patient->Immediate Performed By: #### L [id number] #### [facility] [address] [place] [address] LIPASEon 07-18-2022 LIPASE Normal [facility] Comment on above: Order Comment: Relea se to patient->Immediate Performed By: #### L AB99, LAB17 #### [facility] [address] [place] [address] Lipase [Catalytic activity/Vol] 16 U/L Normal 11-82 [facility] Comment on above: Order Comment: Relea se to patient->Immediate Performed By: #### L AB99, LAB17 #### [facility] [address] [place] [address] Lipase [Catalytic activity/Vol] 35 U/L Normal 0-60 [facility] Comment on above: Performed By: #### L [id number] ####[place] [phone] PROGRESS NOTESon 07-18-2022 Cosmetologist Authentication Interface Message Text Pt will be discharged with resources. Normal [facility] Cosmetologist Authentication Interface Message Text SW attempted to conduct and behavioral health assessment on patient. Patient wasn't completely awake and would answer questions with a slight huh. Normal [facility] RAPID COVID/FLU/RSV BY PCRon 07-18-2022 COMMENT The SARS CoV-2 RNA, Qualitative Real-Time RT-PCR test is a Normal [facility] Comment on above: Result Comment: qual itative multi-target molecular diagnostic test that aids inthe detection of COVID-19.This test has been authorized by the FDA under an Emergency UseAuthorization (EUA) for use by authourized laboratories.Refer to www.cdc.gov for additional information about Coronavirusdisease 2019. Performed By: #### L [id number] ####[place] [phone] INFLUENZA A PCR Not detected Normal Not Detected [facility] Comment on above: Performed By: #### L [id number] ####[place] [phone] INFLUENZA B PCR Not detected Normal Not Detected [facility] Comment on above: Performed By: #### L [id number] ####[place] [phone] RSV PCR Not detected Normal Not Detected [facility] Comment on above: Performed By: #### L [id number] ####[place] [phone] SARS-CoV-2 (COVID-19) RNA KARIN+probe Ql (Unsp spec) Nasopharynx. Normal [facility] Comment on above: Performed By: #### L [id number] ####[place] [phone] SARS-CoV-2 (COVID-19) RNA KARIN+probe Ql (Unsp spec) Not detected Normal Not Detected [facility] Comment on above: Performed By: #### L [id number] ####[place] [phone] SERUM TOX SCREENon ACETAMINOPHEN LEVEL Normal [facility] Comment on above: Order Comment: Relea se to patient->Immediate Performed By: #### L [id number] #### [facility] [address] [place] [address] ACETAMINOPHEN LEVEL <10 Normal 10-30 [facility] Comment on above: Order Comment: Relea se to patient->Immediate Performed By: #### L [id number] #### [facility] [address] [place] [address] ETHANOL Normal [facility] Comment on above: Order Comment: Relea se to patient->Immediate Performed By: #### L [id number] #### [facility] [address] [place] [address] Ethanol [Mass/Vol] 55 mg/dL Normal <10 [facility] Comment on above: Order Comment: Relea se to patient->Immediate Performed By: #### L [id number] #### [facility] [address] [place] [address] SALICYLATE ([facility]/IRS) Normal [facility] Comment on above: Order Comment: Relea se to patient->Immediate Performed By: #### L [id number] #### [facility] [address] [place] [address] SALICYLATE ([facility]/IRS) <2.5 Normal 3.0-20.0 [facility] Comment on above: Order Comment: Relea se to patient->Immediate Performed By: #### L [id number] #### [facility] [address] [place] [address] TROPONIN T (1 HOUR)on 2022 COMMENT Normal [facility] Comment on above: Performed By: #### L [id number] ####[place] [phone] TROPONIN CHANGE NG/L 1 ng/L Normal <3 ng/L from baseline [facility] Comment on above: Performed By: #### L [id number] ####[place] [phone] TROPONIN, 1 HOUR 8 ng/L Normal <=22 [facility] Comment on above: Performed By: #### L [id number] ####[place] [place] [phone] TROPONIN T (BASELINE)on 07-09 COMMENT Normal [facility] Comment on above: Performed By: #### L [id number] ####[place] [place] [phone] TROPONIN BASELINE 7 ng/L Normal <=22 [facility] Comment on above: Performed By: #### L [id number] ####[place] [place] [phone] URINE CULTURE, CONDITIONALon 07-18-2022 BILIRUBIN, UA Normal [facility] Comment on above: Order Comment: Cultu re of the urine specimen was not completed as criteria were not met. Release to patient->Immediate Performed By: #### L [id number], [id number] #### [facility] [address] [place] [address] BILIRUBIN, UA Negative Normal Negative [facility] Comment on above: Order Comment: Cultu re of the urine specimen was not completed as criteria were not met. Release to patient->Immediate Performed By: #### L [id number], [id number] #### [facility] [address] [place] [address] BLOOD, UA Normal [facility] Comment on above: Order Comment: Cultu re of the urine specimen was not completed as criteria were not met. Release to patient->Immediate Performed By: #### L [id number], [id number] #### [facility] [address] [place] [address] BLOOD, UA Negative Normal Negative [facility] Comment on above: Order Comment: Cultu re of the urine specimen was not completed as criteria were not met. Release to patient->Immediate Performed By: #### L [id number], [id number] #### [facility] [address] [place] [address] Clarity (U) Normal [facility] Comment on above: Order Comment: Cultu re of the urine specimen was not completed as criteria were not met. Release to patient->Immediate Performed By: #### L [id number], [id number] #### [facility] [address] [place] [address] Clarity (U) Clear Normal Clear [facility] Comment on above: Order Comment: Cultu re of the urine specimen was not completed as criteria were not met. Release to patient->Immediate Performed By: #### L [id number], [id number] #### [facility] [address] [place] [address] Color (U) Normal [facility] Comment on above: Order Comment: Cultu re of the urine specimen was not completed as criteria were not met. Release to patient->Immediate Performed By: #### L [id number], [id number] #### [facility] [address] [place] [address] Color (U) Light-Yellow Normal Yellow [facility] Comment on above: Order Comment: Cultu re of the urine specimen was not completed as criteria were not met. Release to patient->Immediate Performed By: #### L [id number], [id number] #### [facility] [address] [place] [address] GLUCOSE, UA Normal [facility] Comment on above: Order Comment: Cultu re of the urine specimen was not completed as criteria were not met. Release to patient->Immediate Performed By: #### L [id number], [id number] #### [facility] [address] [place] [address] GLUCOSE, UA Normal Normal Normal [facility] Comment on above: Order Comment: Cultu re of the urine specimen was not completed as criteria were not met. Release to patient->Immediate Performed By: #### L [id number], [id number] #### [facility] [address] [place] [address] KETONES, UA Normal [facility] Comment on above: Order Comment: Cultu re of the urine specimen was not completed as criteria were not met. Release to patient->Immediate Performed By: #### L [id number], [id number] #### [facility] [address] [place] [address] KETONES, UA Negative Normal Negative [facility] Comment on above: Order Comment: Cultu re of the urine specimen was not completed as criteria were not met. Release to patient->Immediate Performed By: #### L [id number], [id number] #### [facility] [address] [place] [address] LEUKOCYTES, UA Normal [facility] Comment on above: Order Comment: Cultu re of the urine specimen was not completed as criteria were not met. Release to patient->Immediate Performed By: #### L [id number], [id number] #### [facility] [address] [place] [address] LEUKOCYTES, UA Negative Normal Negative [facility] Comment on above: Order Comment: Cultu re of the urine specimen was not completed as criteria were not met. Release to patient->Immediate Performed By: #### L [id number], [id number] #### [facility] [address] [place] [address] MUCOUS Normal [facility] Comment on above: Order Comment: Cultu re of the urine specimen was not completed as criteria were not met. Release to patient->Immediate Performed By: #### L [id number], [id number] #### [facility] [address] [place] [address] MUCOUS Trace Normal Negative to 2+ [facility] Comment on above: Order Comment: Cultu re of the urine specimen was not completed as criteria were not met. Release to patient->Immediate Performed By: #### L [id number], [id number] #### [facility] [address] [place] [address] Nitrite Ql (U) Normal [facility] Comment on above: Order Comment: Cultu re of the urine specimen was not completed as criteria were not met. Release to patient->Immediate Performed By: #### L [id number], [id number] #### [facility] [address] [place] [address] Nitrite Ql (U) Negative Normal Negative [facility] Comment on above: Order Comment: Cultu re of the urine specimen was not completed as criteria were not met. Release to patient->Immediate Performed By: #### L [id number], [id number] #### [facility] [address] [place] [address] pH (U) 6.5 [pH] Normal 5.0-8.0 [facility] Comment on above: Order Comment: Cultu re of the urine specimen was not completed as criteria were not met. Release to patient->Immediate Performed By: #### L [id number], [id number] #### [facility] [address] [place] [address] PH, UA Normal [facility] Comment on above: Order Comment: Cultu re of the urine specimen was not completed as criteria were not met. Release to patient->Immediate Performed By: #### L [id number], [id number] #### [facility] [address] [place] [address] PROTEIN, UA Normal [facility] Comment on above: Order Comment: Cultu re of the urine specimen was not completed as criteria were not met. Release to patient->Immediate Performed By: #### L [id number], [id number] #### [facility] [address] [place] [address] PROTEIN, UA Trace Normal Negative [facility] Comment on above: Order Comment: Cultu re of the urine specimen was not completed as criteria were not met. Release to patient->Immediate Performed By: #### L [id number], [id number] #### [facility] [address] [place] [address] RBC Normal [facility] Comment on above: Order Comment: Cultu re of the urine specimen was not completed as criteria were not met. Release to patient->Immediate Performed By: #### L [id number], [id number] #### [facility] [address] [place] [address] RBC 0-3 Normal 0-3 [facility] Comment on above: Order Comment: Cultu re of the urine specimen was not completed as criteria were not met. Release to patient->Immediate Performed By: #### L [id number], [id number] #### [facility] [address] [place] [address] SPECIFIC GRAVITY, UA Normal [facility] Comment on above: Order Comment: Cultu re of the urine specimen was not completed as criteria were not met. Release to patient->Immediate Performed By: #### L [id number], [id number] #### [facility] [address] [place] [address] SPECIFIC GRAVITY, UA 1.017 Normal 1.001-1.035 [facility] Comment on above: Order Comment: Cultu re of the urine specimen was not completed as criteria were not met. Release to patient->Immediate Performed By: #### L [id number], [id number] #### [facility] [address] [place] [address] UROBILINOGEN, UA Normal [facility] Comment on above: Order Comment: Cultu re of the urine specimen was not completed as criteria were not met. Release to patient->Immediate Performed By: #### L [id number], [id number] #### [facility] [address] [place] [address] UROBILINOGEN, UA Normal Normal Normal [facility] Comment on above: Order Comment: Cultu re of the urine specimen was not completed as criteria were not met. Release to patient->Immediate Performed By: #### L [id number], [id number] #### [facility] [address] [place] [address] WBC Normal [facility] Comment on above: Order Comment: Cultu re of the urine specimen was not completed as criteria were not met. Release to patient->Immediate Performed By: #### L [id number], [id number] #### [facility] [address] [place] [address] WBC 0-3 Normal 0-3 [facility] Comment on above: Order Comment: Cultu re of the urine specimen was not completed as criteria were not met. Release to patient->Immediate Performed By: #### L [id number], [id number] #### [facility] [address] [place] [address] URINE CULTURE, CONDITIONAL, NOT PERFORMEDon 07-18-2022 URINE CULTURE, CONDITIONAL, NOT PERFORMED [facility] Comment on above: Order Comment: Relea se to patient->Immediate Performed By: #### L [id number], [id number] #### [facility] [address] [place] [address] URINE CULTURE, CONDITIONAL, NOT PERFORMED URINE CULTURE NOT PERFORMED Conditions not met for Urine Culture Normal [facility] Comment on above: Order Comment: Relea se to patient->Immediate Performed By: #### L [id number], [id number] #### [facility] [address] [place] [address] URINE DRUG SCREENon 07-19-19 AMPHETAMINE METAB Normal [facility] Comment on above: Order Comment: Cultu re of the urine specimen was not completed as criteria were not met. Release to patient->Immediate Performed By: #### L [id number], [id number] #### [facility] [address] [place] [address] AMPHETAMINE METAB Negative Normal Negative [facility] Comment on above: Order Comment: Cultu re of the urine specimen was not completed as criteria were not met. Release to patient->Immediate Performed By: #### L [id number], [id number] #### [facility] [address] [place] [address] BARBITURATES Normal [facility] Comment on above: Order Comment: Cultu re of the urine specimen was not completed as criteria were not met. Release to patient->Immediate Performed By: #### L [id number], [id number] #### [facility] [address] [place] [address] BARBITURATES Negative Normal Negative [facility] Comment on above: Order Comment: Cultu re of the urine specimen was not completed as criteria were not met. Release to patient->Immediate Performed By: #### L [id number], [id number] #### [facility] [address] [place] [address] BENZODIAZEPINES Normal [facility] Comment on above: Order Comment: Cultu re of the urine specimen was not completed as criteria were not met. Release to patient->Immediate Performed By: #### L [id number], [id number] #### [facility] [address] [place] [address] BENZODIAZEPINES Positive Normal Negative [facility] Comment on above: Order Comment: Cultu re of the urine specimen was not completed as criteria were not met. Release to patient->Immediate Performed By: #### L [id number], [id number] #### [facility] [address] [place] [address] CANNABINOID METAB Normal [facility] Comment on above: Order Comment: Cultu re of the urine specimen was not completed as criteria were not met. Release to patient->Immediate Performed By: #### L [id number], [id number] #### [facility] [address] [place] [address] CANNABINOID METAB Negative Normal Negative [facility] Comment on above: Order Comment: Cultu re of the urine specimen was not completed as criteria were not met. Release to patient->Immediate Performed By: #### L [id number], [id number] #### [facility] [address] [place] [address] COCAINE Normal [facility] Comment on above: Order Comment: Cultu re of the urine specimen was not completed as criteria were not met. Release to patient->Immediate Performed By: #### L [id number], [id number] #### [facility] [address] [place] [address] COCAINE Positive Normal Negative [facility] Comment on above: Order Comment: Cultu re of the urine specimen was not completed as criteria were not met. Release to patient->Immediate Performed By: #### L [id number], [id number] #### [facility] [address] [place] [address] OPIATE METAB Normal [facility] Comment on above: Order Comment: Cultu re of the urine specimen was not completed as criteria were not met. Release to patient->Immediate Performed By: #### L [id number], [id number] #### [facility] [address] [place] [address] OPIATE METAB Negative Normal Negative [facility] Comment on above: Order Comment: Cultu re of the urine specimen was not completed as criteria were not met. Release to patient->Immediate Performed By: #### L [id number], [id number] #### [facility] [address] [place] [address] BASIC METABOLIC PANELon 06-0 ANION GAP Normal [facility] Comment on above: Order Comment: Cultu re of the urine specimen was not completed as criteria were not met. Release to patient->Immediate Performed By: #### L [id number], [id number] #### [facility] [address] [place] [address] Anion gap [Moles/Vol] 9 mmol/L Normal 7-16 [facility] Comment on above: Order Comment: Cultu re of the urine specimen was not completed as criteria were not met. Release to patient->Immediate Performed By: #### L [id number], [id number] #### [facility] [address] [place] [address] BLOOD UREA NITROGEN Normal [facility] Comment on above: Order Comment: Cultu re of the urine specimen was not completed as criteria were not met. Release to patient->Immediate Performed By: #### L [id number], [id number] #### [facility] [address] [place] [address] CALCIUM Normal [facility] Comment on above: Order Comment: Cultu re of the urine specimen was not completed as criteria were not met. Release to patient->Immediate Performed By: #### L [id number], [id number] #### [facility] [address] [place] [address] Calcium [Mass/Vol] 9.7 mg/dL Normal 8.6-10.2 [facility] Comment on above: Order Comment: Cultu re of the urine specimen was not completed as criteria were not met. Release to patient->Immediate Performed By: #### L [id number], [id number] #### [facility] [address] [place] [address] CARBON DIOXIDE Normal [facility] Comment on above: Order Comment: Cultu re of the urine specimen was not completed as criteria were not met. Release to patient->Immediate Performed By: #### L [id number], [id number] #### [facility] [address] [place] [address] CHLORIDE Normal [facility] Comment on above: Order Comment: Cultu re of the urine specimen was not completed as criteria were not met. Release to patient->Immediate Performed By: #### L [id number], [id number] #### [facility] [address] [place] [address] Chloride [Moles/Vol] 107 mmol/L Normal 98-107 [facility] Comment on above: Order Comment: Cultu re of the urine specimen was not completed as criteria were not met. Release to patient->Immediate Performed By: #### L [id number], [id number] #### [facility] [address] [place] [address] CO2 [Moles/Vol] 22 mmol/L Normal 21-31 [facility] Comment on above: Order Comment: Cultu re of the urine specimen was not completed as criteria were not met. Release to patient->Immediate Performed By: #### L [id number], [id number] #### [facility] [address] [place] [address] CREATININE [facility] Comment on above: Order Comment: Cultu re of the urine specimen was not completed as criteria were not met. Release to patient->Immediate Performed By: #### L [id number], [id number] #### [facility] [address] [place] [address] Creatinine [Mass/Vol] 1.16 mg/dL Normal 0.7-1.3 [facility] Comment on above: Order Comment: Cultu re of the urine specimen was not completed as criteria were not met. Release to patient->Immediate Performed By: #### L [id number], [id number] #### [facility] [address] [place] [address] GFR MALE Normal [facility] Comment on above: Order Comment: Cultu re of the urine specimen was not completed as criteria were not met. Release to patient->Immediate Result Comment: Repo rted eGFR is based on the CKD-EPI 2020 equation that does not use a race coefficient. Performed By: #### L [id number], [id number] #### [facility] [address] [place] [address] GFR/1.73 sq M.predicted among non-blacks MDRD (S/P/Bld) [Vol rate/Area] 83 mL/min/{1.73_m2} Normal >90 [facility] Comment on above: Order Comment: Cultu re of the urine specimen was not completed as criteria were not met. Release to patient->Immediate Performed By: #### L [id number], [id number] #### [facility] [address] [place] [address] GLUCOSE Normal [facility] Comment on above: Order Comment: Cultu re of the urine specimen was not completed as criteria were not met. Release to patient->Immediate Performed By: #### L [id number], [id number] #### [facility] [address] [place] [address] Glucose [Mass/Vol] 99 mg/dL Normal 74-109 [facility] Comment on above: Order Comment: Cultu re of the urine specimen was not completed as criteria were not met. Release to patient->Immediate Performed By: #### L [id number], [id number] #### [facility] [address] [place] [address] POTASSIUM Normal [facility] Comment on above: Order Comment: Cultu re of the urine specimen was not completed as criteria were not met. Release to patient->Immediate Performed By: #### L [id number], [id number] #### [facility] [address] [place] [address] Potassium [Moles/Vol] 4.0 mmol/L Normal 3.5-5.1 [facility] Comment on above: Order Comment: Cultu re of the urine specimen was not completed as criteria were not met. Release to patient->Immediate Performed By: #### L [id number], [id number] #### [facility] [address] [place] [address] SODIUM Normal [facility] Comment on above: Order Comment: Cultu re of the urine specimen was not completed as criteria were not met. Release to patient->Immediate Performed By: #### L [id number], [id number] #### [facility] [address] [place] [address] Sodium [Moles/Vol] 138 mmol/L Normal 136-145 [facility] Comment on above: Order Comment: Cultu re of the urine specimen was not completed as criteria were not met. Release to patient->Immediate Performed By: #### L [id number], [id number] #### [facility] [address] [place] [address] Urea nitrogen [Mass/Vol] 14 mg/dL Normal 7-25 [facility] Comment on above: Order Comment: Cultu re of the urine specimen was not completed as criteria were not met. Release to patient->Immediate Performed By: #### L [id number], [id number] #### [facility] [address] [place] [address] CBC W/DIFFon 07-14-2022 BASOPHILS ABS AUTO Normal [facility] Comment on above: Order Comment: Relea se to patient->Immediate Performed By: #### L [id number], [id number] #### [facility] [address] [place] [address] BASOPHILS ABS AUTO 0.1 K/uL Normal 0.0-0.1 [facility] Comment on above: Order Comment: Relea se to patient->Immediate Performed By: #### L [id number], [id number] #### [facility] [address] [place] [address] BASOPHILS RELATIVE AUTO Normal [facility] Comment on above: Order Comment: Relea se to patient->Immediate Performed By: #### L [id number], [id number] #### [facility] [address] [place] [address] Basophils/100 WBC (Bld) 0.9 % Normal [facility] Comment on above: Order Comment: Relea se to patient->Immediate Performed By: #### L [id number], [id number] #### [facility] [address] [place] [address] EOSINOPHIL ABS AUTO Normal [facility] Comment on above: Order Comment: Relea se to patient->Immediate Performed By: #### L [id number], [id number] #### [facility] [address] [place] [address] Eosinophils (Bld) [#/Vol] 0.5 10*3/uL Normal 0.0-0.4 [facility] Comment on above: Order Comment: Relea se to patient->Immediate Performed By: #### L [id number], [id number] #### [facility] [address] [place] [address] EOSINOPHILS RELATIVE AUTO Normal [facility] Comment on above: Order Comment: Relea se to patient->Immediate Performed By: #### L [id number], [id number] #### [facility] [address] [place] [address] Eosinophils/100 WBC (Bld) 6.4 % Normal [facility] Comment on above: Order Comment: Relea se to patient->Immediate Performed By: #### L [id number], [id number] #### [facility] [address] [place] [address] Erythrocyte distribution width (RBC) [Ratio] 13.8 % Normal 11.7-15.2 [facility] Comment on above: Order Comment: Relea se to patient->Immediate Performed By: #### L [id number], [id number] #### [facility] [address] [place] [address] Hematocrit (Bld) [Volume fraction] 46.1 % Normal 39.0-51.5 [facility] Comment on above: Order Comment: Relea se to patient->Immediate Performed By: #### L [id number], [id number] #### [facility] [address] [place] [address] HEMATOCRIT BLOOD Normal [facility] Comment on above: Order Comment: Relea se to patient->Immediate Performed By: #### L [id number], [id number] #### [facility] [address] [place] [address] HEMOGLOBIN Normal [facility] Comment on above: Order Comment: Relea se to patient->Immediate Performed By: #### L [id number], [id number] #### [facility] [address] [place] [address] Hemoglobin (Bld) [Mass/Vol] 15.8 g/dL Normal 13.1-17.6 [facility] Comment on above: Order Comment: Relea se to patient->Immediate Performed By: #### L [id number], [id number] #### [facility] [address] [place] [address] LYMPHOCYTE ABS AUTO Normal [facility] Comment on above: Order Comment: Relea se to patient->Immediate Performed By: #### L [id number], [id number] #### [facility] [address] [place] [address] Lymphocytes (Bld) [#/Vol] 2.6 10*3/uL Normal 0.8-3.6 [facility] Comment on above: Order Comment: Relea se to patient->Immediate Performed By: #### L [id number], [id number] #### [facility] [address] [place] [address] LYMPHOCYTES RELATIVE AUTO Normal [facility] Comment on above: Order Comment: Relea se to patient->Immediate Performed By: #### L [id number], [id number] #### [facility] [address] [place] [address] Lymphocytes/100 WBC (Bld) 32.3 % Normal [facility] Comment on above: Order Comment: Relea se to patient->Immediate Performed By: #### L [id number], [id number] #### [facility] [address] [place] [address] MCH Normal [facility] Comment on above: Order Comment: Relea se to patient->Immediate Performed By: #### L [id number], [id number] #### [facility] [address] [place] [address] MCH (RBC) [Entitic mass] 29.2 pg Normal 28.4-33.4 [facility] Comment on above: Order Comment: Relea se to patient->Immediate Performed By: #### L [id number], [id number] #### [facility] [address] [place] [address] MCHC Normal [facility] Comment on above: Order Comment: Relea se to patient->Immediate Performed By: #### L [id number], [id number] #### [facility] [address] [place] [address] MCHC (RBC) [Mass/Vol] 34.2 g/dL Normal 31.1-37.0 [facility] Comment on above: Order Comment: Relea se to patient->Immediate Performed By: #### L [id number], [id number] #### [facility] [address] [place] [address] MCV Normal [facility] Comment on above: Order Comment: Relea se to patient->Immediate Performed By: #### L [id number], [id number] #### [facility] [address] [place] [address] MCV (RBC) [Entitic vol] 85.5 fL Normal 85.0-99.0 [facility] Comment on above: Order Comment: Relea se to patient->Immediate Performed By: #### L [id number], [id number] #### [facility] [address] [place] [address] MONOCYTE ABS AUTO Normal [facility] Comment on above: Order Comment: Relea se to patient->Immediate Performed By: #### L [id number], [id number] #### [facility] [address] [place] [address] Monocytes (Bld) [#/Vol] 0.8 10*3/uL Normal 0.3-0.9 [facility] Comment on above: Order Comment: Relea se to patient->Immediate Performed By: #### L [id number], [id number] #### [facility] [address] [place] [address] MONOCYTES RELATIVE AUTO Normal [facility] Comment on above: Order Comment: Relea se to patient->Immediate Performed By: #### L [id number], [id number] #### [facility] [address] [place] [address] Monocytes/100 WBC (Bld) 9.8 % Normal [facility] Comment on above: Order Comment: Relea se to patient->Immediate Performed By: #### L [id number], [id number] #### [facility] [address] [place] [address] NEUTROPHIL ABS AUTO Normal [facility] Comment on above: Order Comment: Relea se to patient->Immediate Performed By: #### L [id number], [id number] #### [facility] [address] [place] [address] NEUTROPHIL ABS AUTO 4.1 K/uL Normal 2.0-7.3 [facility] Comment on above: Order Comment: Relea se to patient->Immediate Performed By: #### L [id number], [id number] #### [facility] [address] [place] [address] NEUTROPHILS RELATIVE AUTO Normal [facility] Comment on above: Order Comment: Relea se to patient->Immediate Performed By: #### L [id number], [id number] #### [facility] [address] [place] [address] Neutrophils/100 WBC (Bld) 50.6 % Normal [facility] Comment on above: Order Comment: Relea se to patient->Immediate Performed By: #### L [id number], [id number] #### [facility] [address] [place] [address] PLATELET COUNT Normal [facility] Comment on above: Order Comment: Relea se to patient->Immediate Performed By: #### L [id number], [id number] #### [facility] [address] [place] [address] Platelets (Bld) [#/Vol] 308 10*3/uL Normal 154-393 [facility] Comment on above: Order Comment: Relea se to patient->Immediate Performed By: #### L [id number], [id number] #### [facility] [address] [place] [address] RBC (Bld) [#/Vol] 5.39 10*6/uL Normal 4.30-5.86 [facility] Comment on above: Order Comment: Relea se to patient->Immediate Performed By: #### L [id number], [id number] #### [facility] [address] [place] [address] RDW Normal [facility] Comment on above: Order Comment: Relea se to patient->Immediate Performed By: #### L [id number], [id number] #### [facility] [address] [place] [address] RED BLOOD CELL COUNT Normal [facility] Comment on above: Order Comment: Relea se to patient->Immediate Performed By: #### L [id number], [id number] #### [facility] [address] [place] [address] WBC (Bld) [#/Vol] 8.2 10*3/uL Normal 4.0-10.5 [facility] Comment on above: Order Comment: Relea se to patient->Immediate Performed By: #### L [id number], [id number] #### [facility] [address] [place] [address] WHITE BLOOD CELL COUNT Normal [facility] Comment on above: Order Comment: Relea se to patient->Immediate Performed By: #### L [id number], [id number] #### [facility] [address] [place] [address] Consultson 07-14-2022 Consults Encounter Department : [facility] Consults by ROSSANA May LSW at 07/14/2022 8:24 AM Author: ROSSANA May LSWService: Crisis WorkerAuthor Type: CRISTOBAL Specialist Filed: 07/14/2022 10:48 AMDate of Service: 07/14/2022 8:24 AMStatus: Addendum Parts Data Writer: ROSSANA May LSW (CRISTOBAL Specialist) Related Notes: Original Note by ROSSANA May, LEODAN (CRISTOBAL Specialist) filed at 07/14/2022 10:47 AM Consult Orders 1. Behavioral Health Assessment Consult [[id number]] ordered by Tiki Huffman DO at 07/14/22 0600 BEHAVIORAL HEALTH ASSESSMENT TEAM CONSULT DATE: 07/14/22 Consult: Community Resources Referral - Substance Use disorder (JIMMY) Reason for consult: Outpatient Resources and Inpatient Options Telehealth: no Identifying Information: 37 y.o. male seen in the Emergency Room Narrative: Patient presents wanting inpatient rehab for his alcohol use. He reports drinking fifth a whiskey a day over the least week, has been struggling with alcohol for about 17 years. Reports anxiety, fatigue, headache, trouble sleeping, tremors. He states he was at [facility] recently about a week ago and stayed for 11 days. Was also at [facility] just a couple of days ago, reports taking 225 mg Effexor which is currently still at [facility]. Last dose was yesterday morning. Patient stated he would rather try [facility] today since they have a bottle of his Effexor from his last admission. Spoke with [facility] who states they patient is permitted to return, they do have male beds and are taking walk-ins until 2pm. Discussed this plan with the patient who is agreeable. He will be sent in a cab as he does not have transportation otherwise. Mental Status: Orientation: oriented x 4 Mood: calm Affect:appropriate Speech: clear Current JIMMY Treatment: no -Provider: Alcohol/Drug Screening: History of JIMMY: Yes Substance(s) of choice: Alcohol BAL: 63 UDS: Negative Toxicology Completed: Yes If yes, does it correspond with patient report: Yes Alcohol: Date of last use: 07/14/22 Method of use: drinking Frequency in last 30 days: daily How long have you been using?: 17 years When have you attempted to stop using alcohol? : 07/14/22 Did you experience any of the following symptoms?: Fatigue, Increased hand tremors, Anxiety, Insomnia Detox: Have you ever been admitted to a detoxification facility for withdrawal from alcohol or other drugs?: Yes Have you noticed it takes more of a given substance to get the same results as before?: No What substance(s) have you used to relieve or avoid withdrawals?: Pain reliever, Vistaril If you have experienced cravings to use alcohol or drugs, what substances and what were the thoughts or events that caused the cravings?: Part of his life, part of his day If your mental health or alcohol/drug symptoms have caused problems during your employment, please describe:: Not working If any of your medical conditions have been impacted by your use of alcohol or other drugs, please describe:: None If you have ever continued to use a substance knowing it has caused or worsened a medical condition, what condition and how has it worsened?: NA Hx of Mental Health Diagnosis: Yes -Diagnosis: Depressive Disorder -Treatment: Current: Medication management Peer Support Offered : Accepted ELIDIA Completed: no Physician/ Nurse Contact: Josue/Viraj TAYpotato chip fryer/ Die Assembler: NA- ER case Disposition: Intake appointment scheduled with Esequiel. Thank you for involving The Behavioral Health Assessment Team in care of your patient. [place] [phone] for any needs or questions Normal [facility] ED NOTESon 07-14-2022 [facility] Ed Note ED Note: Last filed note HNO ID: [id number] Author: Zoe Jacobson RN Service: Emergency Medicine Author Type: Registered Nurse Filed: 07/14/22 0444 Note Text: Patient departed. Patient encouraged to return for new or worsening symptoms. Normal [facility] ED Provider Noteson 07-15-19 23 ED Provider Notes Encounter Department : [facility] ED Provider Notes by Rosalinda Cali DO at 07/14/2022 7:01 AM Author: Eusebia Newtonrvice: Emergency MedicineAuthor Type: Resident Filed: 07/14/2022 10:31 AMDate of Service: 07/14/2022 7:01 AMStatus: Signed Parts Data Writer: Rosalinda Cali DO (Resident)Cosigner: Lety Arce DO at 07/14/2022 2:27 PM Care of this patient was handed over to me at 0700. I have reviewed the notes, assessments, and/or procedures performed by Dr. Tiki Edmondson, I concur with her/his documentation of Mckinley Roman, with the following additions/addendums: Patient is currently awaiting behavioral health evaluation. BP: 127/70 (07/14 1000) Temp: 97.6 ?F (36.4 ?C) (07/14 520) Pulse: 68 (07/14 1000) Resp: 16 (07/14 1000) SpO2: 95 % (07/14 1000) FiO2 (%): -- O2 Flow Rate (L/min): -- Cardiac (WDL): -- Cardiac Rhythm: -- CBC W/DIFF - Abnormal; Notable for the following components: ResultValueRef RangeStatus Eosinophils Absolute0.5 (*)0.0 - 0.4 K/uLFinal All other components within normal limits URINALYSIS WITH REFLEX TO SCOPE - Abnormal; Notable for the following components: Urine ColorLight-Yellow (*)YellowFinal Ketones UrinalysisTrace (*)Negative mg/dLFinal Protein UrinalysisTrace (*)Negative mg/dLFinal All other components within normal limits SERUM TOX SCREEN - Abnormal; Notable for the following components: Acetaminophen Level<10 (*)10 - 30 ug/mLFinal Wrqrino72 (*)<10 mg/dLFinal Salicylate<2.5 (*)3.0 - 20.0 mg/dLFinal All other components within normal limits Narrative: Salicylate Therapeutic Range: 20-25 mg/dL Acetaminophen Therapeutic Range:10.00-30.00 ug/mL LIPASE - Normal LIVER PROFILE PANEL - Normal BASIC METABOLIC PANEL Narrative: KDIGO 2012 GFR Categories Stage Description eGFR (mL/min/1.73m2) G1 Normal or high >=90 G2 Mildly decreased 60-89 G3a Mildly to moderately decreased 45-59 G3b Moderately to severely decreased 30-44 G4 Severely decreased 15-29 G5 Kidney Failure <15 EXTRA TUBE-URINE YELLOW EXTRA TUBE-URINE MA No orders to display ED Course AND MDM Patient Vitals for the past 24 hrs: ALAtehGipvrXnbuMzF9Lgaff tWeight 07/14/22 8454799/70-593753 %-- 07/14/22 0800(!) 123/107-547957 %-- 07/14/22 8262953/89-67-95 %-- 07/14/22 2240109/78-685872 %-- 07/14/22 0559----96 %-- 07/14/22 4022049/87------ 07/14/22 0067366/8997.6 ?F (36.4 ?C)854927 %5' 11 (1.803 m)240 lb (108.9 kg) Medications Administered in the Emergency Dept: Medications venlafaxine (EFFEXOR-XR) 24 hr capsule 225 mg (225 mg Oral Given 07/14/22 1028) Medications to be Initiated at Time of Discharge: New Prescriptions No medications on file Final Impression(s): ICD-10-CM 1.Alcohol abuse F10.10 2.Acute alcoholic intoxication, uncomplicated (HCC) F10.920 Patient evaluated by behavioral health and will be arranged a cab to rehab facility. While in the ED under my care he received his morning dose of Effexor. Otherwise hemodynamically stable for discharge and placement into rehab. I saw this patient with my attending, Dr. Lety Arce. He can return to the ED at any time if symptoms worsen. Also encourage primary care follow-up within the week for this ED visit. Electronically signed by: Rosalinda Cali DO Emergency Medicine Resident 07/14/2022 Rosalinda Cali DO Resident 07/14/22 1031 Normal [facility] ED Provider Notes Encounter Department : [facility] ED Provider Notes by Lety Arce DO at 07/14/2022 5:59 AM Author: Lynn Blevinsice: -Author Type: ED Physician Filed: 07/14/2022 10:27 AMDate of Service: 07/14/2022 5:59 AMStatus: Signed Parts Data Writer: Lety Arce DO (ED Physician) I saw and evaluated the patient and directed the plan of care. I have discussed with the resident, Dr. Huffman, and agree with the findings and plan. FINAL IMPRESSION(S) ICD-10-CM 1.Alcohol abuse F10.10 DISPOSITION PLAN Patient will be discharged to [facility] DISCHARGE MEDICATION(S) / CHANGES TO HOME MEDICATIONS New Prescriptions No medications on file CHIEF COMPLAINT Chief Complaint Patient presents with -Alcohol Problem TRIAGE NOTE: Blanca Velazco RN 07/14/2022 5:23 AM Signed Arrives to ER stating I can't stop drinking alcohol and it's killing me. Reports drinking a fifth of whiskey or more in a day. Last drink was around [id number] tonight. Patient is reporting anxiousness and he is jittery and diaphoretic. HPI / RELEVANT PATRICIO Roman is a 37 y.o. male in bed GVEDC29/C29 who presents to the ED with alcohol intoxication. Patient requesting help with detox. Last drink was tonight GARCÍA PORTION OF PHYSICAL EXAM ED Triage Vitals [07/14/22 0521] BP138/89 Temp97.6 ?F (36.4 ?C) Pulse93 Resp16 WoM590 % Kyuwil770 lb (108.9 kg) Alexander Coma Scale Score15 BMI (Calculated)33.5 Patient sleepy but easily arousable my evaluation. Oriented x3. He does not appear anxious or tremulous. EKG No results found for this visit on 07/14/22. RADIOLOGY I have personally visualized the images and my interpretation is none The radiologist interpretation reveals: No results found for this visit on 07/14/22. LAB RESULTS CBC W/DIFF - Abnormal; Notable for the following components: ResultValueRef RangeStatus Eosinophils Absolute0.5 (*)0.0 - 0.4 K/uLFinal All other components within normal limits URINALYSIS WITH REFLEX TO SCOPE - Abnormal; Notable for the following components: Urine ColorLight-Yellow (*)YellowFinal Ketones UrinalysisTrace (*)Negative mg/dLFinal Protein UrinalysisTrace (*)Negative mg/dLFinal All other components within normal limits SERUM TOX SCREEN - Abnormal; Notable for the following components: Acetaminophen Level<10 (*)10 - 30 ug/mLFinal Bwmxkfj00 (*)<10 mg/dLFinal Salicylate<2.5 (*)3.0 - 20.0 mg/dLFinal All other components within normal limits Narrative: Salicylate Therapeutic Range: 20-25 mg/dL Acetaminophen Therapeutic Range:10.00-30.00 ug/mL LIPASE - Normal LIVER PROFILE PANEL - Normal BASIC METABOLIC PANEL Narrative: KDIGO 2012 GFR Categories Stage Description eGFR (mL/min/1.73m2) G1 Normal or high >=90 G2 Mildly decreased 60-89 G3a Mildly to moderately decreased 45-59 G3b Moderately to severely decreased 30-44 G4 Severely decreased 15-29 G5 Kidney Failure <15 EXTRA TUBE-URINE YELLOW EXTRA TUBE-URINE MA PROCEDURE(S) Procedure performed by resident: None Procedure was performed by resident under my direct supervision. I was present for the garcía portions of the procedure. DIFFERENTIAL DIAGNOSIS / MEDICAL DECISION MAKING Patient with concerns for alcohol dependence. Requesting help with detox. He does not appear to be in acute withdrawal right now. Basic labs including alcohol level. We will have him assessed by the behavioral assessment team. ED COURSE Repeat Vitals: BP: 127/70 (07/14 1000) Temp: 97.6 ?F (36.4 ?C) (07/14 520) Pulse: 68 (07/14 1000) Resp: 16 (07/14 999) SpO2: 95 % (07/14 999) FiO2 (%): -- O2 Flow Rate (L/min): -- Cardiac (WDL): -- Cardiac Rhythm: -- Medications venlafaxine (EFFEXOR-XR) 24 hr capsule 225 mg (has no administration in time range) Patient was evaluated by the behavioral assessment team. He is requesting to go to [facility]. Patient will be assisted with transportation. Electronically signed by: Lety Arce DO, 07/14/2022 Lety Arce DO 07/14/22 1027 Normal [facility] ED Provider Notes Encounter Department : [facility] ED Provider Notes by Tiki Huffman DO at 07/14/2022 5:51 AM Author: Eusebia Teixeirarvice: Emergency MedicineAuthor Type: Resident Filed: 07/14/2022 7:34 AMDate of Service: 07/14/2022 5:51 AMStatus: Signed Parts Data Writer: Tiki Huffman DO (Resident)Cosigner: Lety Arce DO at 07/14/2022 2:27 PM 07/14/2022 5:31 AM HISTORY OF PRESENT ILLNESS History Provided by: patient Chief Complaint: alcohol abuse Additional History: Mckinley Roman is a 37 y.o. male who presents to the ED requesting help secondary to history of alcoholism. Patient reports that he has been alcoholic for 17 years and has been on a binge since Wednesday. Reports that he needs help to stop drinking. Reports that he has attempted to quit previously on his own without success. Denies any history of seizures but states that he does get very jittery when stopping alcohol. Denies any nausea, vomiting, fevers, chills, or any other acute complaints at this time. Denies suicidal ideation or homicidal ideation. Denies any other pertinent past medical history. PCP: PHYSICIAN NONE REVIEW OF SYSTEMS --- Review of Systems Constitutional: Negative for fever. Gastrointestinal: Negative for vomiting. Psychiatric/Behavioral: Positive for substance abuse. Negative for suicidal ideas. PAST HISTORY - PAST MEDICAL HISTORY Alcohol abuse SOCIAL HISTORY Social History Socioeconomic History -Marital status:Single Tobacco Use -Smoking status:Some Days Types:Cigarettes -Smokeless tobacco:Never Substance and Sexual Activity -Alcohol use:Yes Comment: a day The patient's social history section has been reviewed. FAMILY HISTORY Patient does not endorse any pertinent family history. CURRENT MEDICATIONS No current facility-administered medications for this encounter. No current outpatient medications on file. The patient?s home medications section has been reviewed. ALLERGIES No Known Allergies PHYSICAL EXAM Vital Signs: BP 132/87 Pulse 93 Temp 97.6 ?F (36.4 ?C) Resp 16 Ht 5' 11 (1.803 m) Wt 240 lb (108.9 kg) SpO2 96% BMI 33.47 kg/m? Pulse oximetry interpretation: 96% on room air; not hypoxic, will continue to monitor pt while in the ED Constitutional: Well developed, well nourished. Awake AND alert. Resting comfortably in bed; speaking clearly. Head: Atraumatic. Normocephalic. Eyes: Pupils are equal. EOMI without pain. No discharge. ENT: Mucous membranes are moist and intact. Bilateral external ears normal. Nose midline and normal. Neck: Supple. Full ROM. Cardiovascular: Regular rate in the 70's. Regular rhythm. Distal pulses are 2+ and symmetric. Normal capillary refill. Pulmonary/Chest: No evidence of respiratory distress. No evidence of accessory muscle use or retractions. Extremities: Moving all four extremities without difficulty. No obvious deformity. Skin: Skin is warm and dry. Neurological: Alert, awake, and oriented to person, place, time, and situation. No tremors. Normal speech. No acute focal neurological deficits can be appreciated. Psychiatric: Good eye contact. Appropriate interaction and behavior. Orders in the ED Orders Placed This Encounter Procedures -CBC w/ Diff-Complete Blood Count Standing Status: Standing Number of Occurrences: 1 Order Specific Question: Release to patient Answer: Immediate [1] -Basic Metabolic Panel Standing Status: Standing Number of Occurrences: 1 Order Specific Question: Release to patient Answer: Immediate [1] -Lipase Standing Status: Standing Number of Occurrences: 1 Order Specific Question: Release to patient Answer: Immediate [1] -Liver Profile Panel Standing Status: Standing Number of Occurrences: 1 Order Specific Question: Release to patient Answer: Immediate [1] -Urinalysis w/Reflex Microscopy Standing Status: Standing Number of Occurrences: 1 Order Specific Question: Release to patient Answer: Immediate [1] -Serum Tox Screen Standing Status: Standing Number of Occurrences: 1 Order Specific Question: Release to patient Answer: Immediate [1] -Clinical [place] Withdrawal Assessment Standing Status: Standing Number of Occurrences: 1 -Behavioral Health Assessment Consult Alcoholic who wants help to stop drinking Standing Status: Standing Number of Occurrences: 1 Order Specific Question: Reason for Consult Answer: Full Assessment for possible psychiatric admission LABORATORY RESULTS Recent Results (from the past 24 hour(s)) CBC w/ Diff-Complete Blood Count Collection Time: 07/14/22 5:56 AM ResultValueRef Range WBC8.24.0 - 10.5 K/uL RBC5.394.30 - 5.86 M/uL HGB15.813.1 - 17.6 g/dL HCT46.139.0 - 51.5 % MCV85.585 (more content not included)... Normal [facility] ED TRIAGEon 07-14-2022 Php Ed Triage Note Normal [facility] EXTRA TUBE-URINE YELLOWon EXTRA TUBE Normal [facility] Comment on above: Order Comment: Relea se to patient->Immediate Performed By: #### L [id number], [id number] #### [facility] [address] [place] [address] Performed By: #### L [id number] #### [facility] [address] [place] [address] EXTRA TUBE Received [facility] Comment on above: Order Comment: Relea se to patient->Immediate Performed By: #### L [id number], [id number] #### [facility] [address] [place] [address] Performed By: #### L [id number] #### [facility] [address] [place] [address] LIPASEon 07-14-2022 LIPASE [facility] Comment on above: Order Comment: Cultu re of the urine specimen was not completed as criteria were not met. Release to patient->Immediate Performed By: #### L [id number], [id number] #### [facility] [address] [place] [address] Lipase [Catalytic activity/Vol] 18 U/L Normal [facility] Comment on above: Order Comment: Cultu re of the urine specimen was not completed as criteria were not met. Release to patient->Immediate Performed By: #### L [id number], [id number] #### [facility] [address] [place] [address] LIVER PROFILE PANELon 2022 ALBUMIN [facility] Comment on above: Order Comment: Cultu re of the urine specimen was not completed as criteria were not met. Release to patient->Immediate Performed By: #### L [id number], [id number] #### [facility] [address] [place] [address] Albumin [Mass/Vol] 4.4 g/dL Normal 3.5-5.7 [facility] Comment on above: Order Comment: Cultu re of the urine specimen was not completed as criteria were not met. Release to patient->Immediate Performed By: #### L [id number], [id number] #### [facility] [address] [place] [address] ALKALINE PHOSPHATASE Normal [facility] Comment on above: Order Comment: Cultu re of the urine specimen was not completed as criteria were not met. Release to patient->Immediate Performed By: #### L [id number], [id number] #### [facility] [address] [place] [address] ALP [Catalytic activity/Vol] 87 U/L Normal 34-104 [facility] Comment on above: Order Comment: Cultu re of the urine specimen was not completed as criteria were not met. Release to patient->Immediate Performed By: #### L [id number], [id number] #### [facility] [address] [place] [address] ALT (SGPT) Normal 7-52 [facility] Comment on above: Order Comment: Cultu re of the urine specimen was not completed as criteria were not met. Release to patient->Immediate Performed By: #### L [id number], [id number] #### [facility] [address] [place] [address] ALT [Catalytic activity/Vol] 26 U/L Normal [facility] Comment on above: Order Comment: Cultu re of the urine specimen was not completed as criteria were not met. Release to patient->Immediate Performed By: #### L [id number], [id number] #### [facility] [address] [place] [address] AST (SGOT) Normal [facility] Comment on above: Order Comment: Cultu re of the urine specimen was not completed as criteria were not met. Release to patient->Immediate Performed By: #### L [id number], [id number] #### [facility] [address] [place] [address] AST [Catalytic activity/Vol] 16 U/L Normal 13-39 [facility] Comment on above: Order Comment: Cultu re of the urine specimen was not completed as criteria were not met. Release to patient->Immediate Performed By: #### L [id number], [id number] #### [facility] [address] [place] [address] Bilirubin [Mass/Vol] 0.3 mg/dL Normal 0.3-1.0 [facility] Comment on above: Order Comment: Cultu re of the urine specimen was not completed as criteria were not met. Release to patient->Immediate Performed By: #### L [id number], [id number] #### [facility] [address] [place] [address] BILIRUBIN, DIRECT Normal [facility] Comment on above: Order Comment: Cultu re of the urine specimen was not completed as criteria were not met. Release to patient->Immediate Performed By: #### L [id number], [id number] #### [facility] [address] [place] [address] Bilirubin.indirect [Mass/Vol] mg/dL Normal <=0.20 [facility] Comment on above: Order Comment: Cultu re of the urine specimen was not completed as criteria were not met. Release to patient->Immediate Performed By: #### L [id number], [id number] #### [facility] [address] [place] [address] Protein [Mass/Vol] 7.1 g/dL Normal 6.0-8.3 [facility] Comment on above: Order Comment: Cultu re of the urine specimen was not completed as criteria were not met. Release to patient->Immediate Performed By: #### L [id number], [id number] #### [facility] [address] [place] [address] PROTEIN, TOTAL Normal [facility] Comment on above: Order Comment: Cultu re of the urine specimen was not completed as criteria were not met. Release to patient->Immediate Performed By: #### L [id number], [id number] #### [facility] [address] [place] [address] TOTAL BILIRUBIN Normal [facility] Comment on above: Order Comment: Cultu re of the urine specimen was not completed as criteria were not met. Release to patient->Immediate Performed By: #### L [id number], [id number] #### [facility] [address] [place] [address] SERUM TOX SCREENon 3 ACETAMINOPHEN LEVEL Normal [facility] Comment on above: Order Comment: Salic ylate Therapeutic Range: 20-25 mg/dL Acetaminophen Therapeutic Range:10.00-30.00 ug/mL Release to patient->Immediate Performed By: #### L [id number] #### [facility] [address] [place] [address] ACETAMINOPHEN LEVEL <10 Normal 10-30 [facility] Comment on above: Order Comment: Salic ylate Therapeutic Range: 20-25 mg/dL Acetaminophen Therapeutic Range:10.00-30.00 ug/mL Release to patient->Immediate Performed By: #### L [id number] #### [facility] [address] [place] [address] ETHANOL Normal [facility] Comment on above: Order Comment: Salic ylate Therapeutic Range: 20-25 mg/dL Acetaminophen Therapeutic Range:10.00-30.00 ug/mL Release to patient->Immediate Performed By: #### L [id number] #### [facility] [address] [place] [address] Ethanol [Mass/Vol] 63 mg/dL Normal <10 [facility] Comment on above: Order Comment: Salic ylate Therapeutic Range: 20-25 mg/dL Acetaminophen Therapeutic Range:10.00-30.00 ug/mL Release to patient->Immediate Performed By: #### L [id number] #### [facility] [address] [place] [address] SALICYLATE (GMH/IRS) Normal [facility] Comment on above: Order Comment: Salic ylate Therapeutic Range: 20-25 mg/dL Acetaminophen Therapeutic Range:10.00-30.00 ug/mL Release to patient->Immediate Performed By: #### L [id number] #### [facility] [address] [place] [address] SALICYLATE (GMH/IRS) <2.5 Normal 3.0-20.0 [facility] Comment on above: Order Comment: Salic ylate Therapeutic Range: 20-25 mg/dL Acetaminophen Therapeutic Range:10.00-30.00 ug/mL Release to patient->Immediate Performed By: #### L [id number] #### [facility] [address] [place] [address] URINALYSIS WITH REFLEX TO SC OPEon 07-14-2022 BILIRUBIN, UA Normal [facility] Comment on above: Order Comment: Relea se to patient->Immediate Performed By: #### L [id number] ####[facility] [id number] [place] [address] BILIRUBIN, UA Negative Normal Negative [facility] Comment on above: Order Comment: Relea se to patient->Immediate Performed By: #### L [id number] ####[place] [address] [place] [address] BLOOD, UA Normal [facility] Comment on above: Order Comment: Relea se to patient->Immediate Performed By: #### L [id number] ####[facility] [id number] [place] [address] BLOOD, UA Negative Normal Negative [facility] Comment on above: Order Comment: Relea se to patient->Immediate Performed By: #### L [id number] ####[facility] [id number] [place] [address] Clarity (U) Normal [facility] Comment on above: Order Comment: Relea se to patient->Immediate Performed By: #### L [id number] ####[facility] [id number] [place] [address] Clarity (U) Clear Normal Clear [facility] Comment on above: Order Comment: Relea se to patient->Immediate Performed By: #### L [id number] ####[facility] [id number] [place] [address] Color (U) Normal [facility] Comment on above: Order Comment: Relea se to patient->Immediate Performed By: #### L [id number] ####[facility] [id number] [place] [address] Color (U) Light-Yellow Normal Yellow [facility] Comment on above: Order Comment: Relea se to patient->Immediate Performed By: #### L [id number] ####[place] [address] [place] [address] GLUCOSE, UA Normal [facility] Comment on above: Order Comment: Relea se to patient->Immediate Performed By: #### L [id number] ####[address] [place] [address] GLUCOSE, UA Normal Normal Normal [facility] Comment on above: Order Comment: Relea se to patient->Immediate Performed By: #### L [id number] ####[address] [place] [address] Hyaline casts LM Ql (Urine sed) Normal [facility] Comment on above: Order Comment: Relea se to patient->Immediate Performed By: #### L [id number] ####[address] [place] [address] Hyaline casts LM Ql (Urine sed) 0-3 Normal 0-3 [facility] Comment on above: Order Comment: Relea se to patient->Immediate Performed By: #### L [id number] ####[address] [place] [address] KETONES, UA Normal [facility] Comment on above: Order Comment: Relea se to patient->Immediate Performed By: #### L [id number] ####[address] [place] [address] KETONES, UA Trace Normal Negative [facility] Comment on above: Order Comment: Relea se to patient->Immediate Performed By: #### L [id number] ####[address] [place] [address] LEUKOCYTES, UA Normal [facility] Comment on above: Order Comment: Relea se to patient->Immediate Performed By: #### L [id number] ####[address] [place] [address] LEUKOCYTES, UA Negative Normal Negative [facility] Comment on above: Order Comment: Relea se to patient->Immediate Performed By: #### L [id number] ####[facility] [id number] [place] [address] MUCOUS Normal [facility] Comment on above: Order Comment: Relea se to patient->Immediate Performed By: #### L [id number] ####[facility] [id number] [place] [address] MUCOUS Trace Normal Negative to 2+ [facility] Comment on above: Order Comment: Relea se to patient->Immediate Performed By: #### L [id number] ####[facility] [id number] [place] [address] Nitrite Ql (U) Normal [facility] Comment on above: Order Comment: Relea se to patient->Immediate Performed By: #### L [id number] ####[facility] [id number] [place] [address] Nitrite Ql (U) Negative Normal Negative [facility] Comment on above: Order Comment: Relea se to patient->Immediate Performed By: #### L [id number] ####[facility] [id number] [place] [address] pH (U) 5.5 [pH] Normal 5.0-8.0 [facility] Comment on above: Order Comment: Relea se to patient->Immediate Performed By: #### L [id number] ####[facility] [id number] [place] [address] PH, UA Normal [facility] Comment on above: Order Comment: Relea se to patient->Immediate Performed By: #### L [id number] ####[facility] [id number] [place] [address] PROTEIN, UA Normal [facility] Comment on above: Order Comment: Relea se to patient->Immediate Performed By: #### L [id number] ####[facility] [id number] [place] [address] PROTEIN, UA Trace Normal Negative [facility] Comment on above: Order Comment: Relea se to patient->Immediate Performed By: #### L [id number] ####[facility] [id number] [place] [address] RBC Normal [facility] Comment on above: Order Comment: Relea se to patient->Immediate Performed By: #### L [id number] ####[facility] [id number] [place] [address] RBC 0-3 Normal 0-3 [facility] Comment on above: Order Comment: Relea se to patient->Immediate Performed By: #### L [id number] ####[facility] [id number] [place] [address] SPECIFIC GRAVITY, UA Normal [facility] Comment on above: Order Comment: Relea se to patient->Immediate Performed By: #### L [id number] ####[facility] [id number] [place] [address] SPECIFIC GRAVITY, UA 1.019 Normal 1.001-1.035 [facility] Comment on above: Order Comment: Relea se to patient->Immediate Performed By: #### L [id number] ####[facility] [id number] [place] [address] UROBILINOGEN, UA Normal [facility] Comment on above: Order Comment: Relea se to patient->Immediate Performed By: #### L [id number] ####[facility] [id number] [place] [address] UROBILINOGEN, UA Normal Normal Normal [facility] Comment on above: Order Comment: Relea se to patient->Immediate Performed By: #### L [id number] ####[facility] [id number] [place] [address] WBC Normal [facility] Comment on above: Order Comment: Relea se to patient->Immediate Performed By: #### L [id number] ####[facility] [id number] [place] [address] WBC 0-3 Normal 0-3 [facility] Comment on above: Order Comment: Relea se to patient->Immediate Performed By: #### L [id number] ####[facility] [id number] [place] [address] Acetaminophen Levelon 2022 Acetaminophen Level <5.0 Low 15 - 30 ug/ml [facility] CBC with Auto Differentialon 07-11-2022 Basophils (Bld) [#/Vol] 0.0 10*3/uL K/CU MM [facility] Basophils/100 WBC (Bld) 0.5 % 0 - 1 % [facility] Differential Type AUTOMATED DIFFERENTIAL [facility] Eosinophils Absolute 0.5 K/CU MM [facility] Eosinophils/100 WBC (Bld) 6.2 % High 0 - 3 % [facility] Hematocrit (Bld) [Volume fraction] 44.8 % 42 - 52 % [facility] Hemoglobin (Bld) [Mass/Vol] 15.1 g/dL [facility] Interpretation and review of laboratory results Abnormal [facility] Lymphocytes Absolute 2.3 K/CU MM [facility] Lymphocytes/100 WBC (Bld) 30.6 % 24 - 44 % [facility] MCH (RBC) [Entitic mass] 29.0 pg 27 - 31 PG [facility] MCHC (RBC) [Mass/Vol] 33.7 % 32.0 - 36.0 % [facility] MCV (RBC) [Entitic vol] 86.0 fL [facility] Monocytes Absolute 0.6 K/CU MM [facility] Monocytes/100 WBC (Bld) 7.8 % High 0 - 4 % [facility] Neutrophils/100 WBC (Bld) 0.1 % 0 - 0.43 % [facility] Nucleated RBC/100 WBC (Bld) [Ratio] 0.0 % [facility] Platelet distribution width (Bld) [Ratio] 13.1 % 11.7 - 14.9 % [facility] Platelet mean volume (Bld) [Entitic vol] 8.5 fL [facility] Platelets (Bld) [#/Vol] 261 10*3/uL [facility] RBC (Bld) [#/Vol] 5.21 10*6/uL [facility] Segs Absolute 4.1 K/CU MM [facility] Segs Relative 54.8 % 36 - 66 % [facility] Total Immature Neutrophil 0.01 K/CU MM [facility] Total Nucleated RBC 0.0 K/CU MM [facility] WBC (Bld) [#/Vol] 7.6 10*3/uL [facility] Comprehensive Metabolic Pane dilip 07-11-2022 Albumin [Mass/Vol] 4.3 g/dL [facility] ALP (Bld) [Catalytic activity/Vol] 99 U/L [facility] ALT [Catalytic activity/Vol] 33 U/L 10 - 40 U/L [facility] Anion gap [Moles/Vol] 13 mmol/L 4 - 16 [facility] AST [Catalytic activity/Vol] 19 U/L [facility] Bilirubin [Mass/Vol] 0.2 mg/dL [facility] Calcium [Mass/Vol] 8.8 mg/dL [facility] Chloride [Moles/Vol] 105 mmol/L [facility] CO2 [Moles/Vol] 21 mmol/L [facility] Creatinine [Mass/Vol] 1.1 mg/dL [facility] GFR/1.73 sq M.predicted MDRD (S/P/Bld) [Vol rate/Area] - PINF [facility] Comment on above: These results are not intended for use in patients <18 years of age. eGFR results are calculated without a race factor using the 2020 CKD-EPI equation. Careful clinical correlation is recommended, particularly when comparing to results calculated using previous equations. The CKD-EPI equation is less accurate in patients with extremes of muscle mass, extra-renal metabolism of creatine, excessive creatine ingestion, or following therapy that affects renal tubular secretion. Glucose [Mass/Vol] 108 mg/dL High [facility] Potassium [Moles/Vol] 4.3 mmol/L [facility] Protein [Mass/Vol] 7.2 g/dL [facility] Sodium [Moles/Vol] 139 mmol/L [facility] Urea nitrogen [Mass/Vol] 13 mg/dL [facility] Drug screen multi urineon Amphetamines Negative NEGATIVE [facility] Barbiturate Screen, Ur Negative NEGATIVE [facility] Benzodiazepine Screen, Urine Negative NEGATIVE [facility] Cannabinoid Scrn, Ur Negative NEGATIVE [facility] Cocaine Metabolite Negative NEGATIVE [facility] Fentanyl, Ur Negative NEGATIVE [facility] Comment on above: THRESHOLD CONCENTRATIONS (ng/mL) AMPHT 1000 CARMELO,OPIA 300 BZO,BAR 200 FENT 5 THC 50 OXY 100 * UNCONFIRMED POSITIVES MAY NOT MEET FORENSIC REQUIREMENTS. Opiates, Urine Negative NEGATIVE [place] [facility] Oxycodone Negative NEGATIVE [facility] Ethanolon 07-11-2022 Alcohol Scrn 0.12 High NINF [facility] No Panel Informationon 07-11 DOSE AMOUNT DOSE AMT. GIVEN - UNKNOWN [facility] DOSE TIME DOSE TIME GIVEN - UNKNOWN [facility] Interpretation and review of laboratory results Abnormal [facility] Salicylateon 07-11-2022 Salicylate Lvl Low [facility] Urinalysison 07-11-2022 Bilirubin Urine Negative NEGATIVE MG/DL [facility] Blood, Urine Negative NEGATIVE [facility] Clarity, UA CLEAR CLEAR [facility] Color, UA YELLOW YELLOW [facility] Glucose Ql (U) Negative NEGATIVE MG/DL [facility] Ketones Ql (U) Negative NEGATIVE MG/DL [facility] Leukocyte esterase Test strip Ql (U) Negative NEGATIVE [facility] Nitrite Urine, Quantitative Negative NEGATIVE [facility] pH (U) 5.0 [pH] 5.0 - 8.0 [facility] Protein, UA Negative NEGATIVE MG/DL [facility] Specific [place], UA 1.020 1.001 - 1.035 [facility] Urinalysis Comments Microscopic exam not performed based on chemical results. [facility] Urobilinogen, Urine 0.2 [facility] ALCOHOL (ETHANOL),BLOODon Alcohol, Serum 146 mg/dL High <10 [facility] Comment on above: Performed By: #### A LCOSU #### [facility] (DEFAULT) [address] [place] [address] HEPATIC FUNCTION PANELon Albumin [Mass/Vol] 4.4 g/dL 3.5 - 5.0 g/dL [facility] ALP [Catalytic activity/Vol] 97 U/L 32 - 126 U/L [facility] ALT [Catalytic activity/Vol] 61 U/L High 10 - 52 U/L [facility] AST [Catalytic activity/Vol] 28 U/L 10 - 39 U/L [facility] Bilirubin [Mass/Vol] 0.2 mg/dL NINF - 1.5 mg/dL [facility] Bilirubin.direct [Mass/Vol] 0.1 mg/dL [facility]dL [facility] Interpretation and review of laboratory results Abnormal [facility] Protein [Mass/Vol] 7.1 g/dL 6.4 - 8.3 g/dL [facility] Albumin [Mass/Vol] 4.4 g/dL Normal 3.5-5.0 [facility] Comment on above: Performed By: #### H FP #### [facility] (DEFAULT) [address] [place] [address] ALP [Catalytic activity/Vol] 97 U/L Normal 32-126 [facility] Comment on above: Performed By: #### H FP #### [facility] (DEFAULT) [address] [place] [address] ALT [Catalytic activity/Vol] 61 U/L High 10-52 [facility] Comment on above: Performed By: #### H FP #### [facility] (DEFAULT) [address] [place] [address] AST [Catalytic activity/Vol] 28 U/L Normal 10-39 [facility] Comment on above: Performed By: #### H FP #### [facility] (DEFAULT) [address] [place] [address] Bilirubin [Mass/Vol] 0.2 mg/dL Normal <1.5 [facility] Comment on above: Performed By: #### H FP #### [facility] (DEFAULT) [address] [address] Bilirubin.indirect [Mass/Vol] 0.1 mg/dL Normal <0.3 [facility] Comment on above: Performed By: #### H FP #### [facility] (DEFAULT) [address] [address] Protein [Mass/Vol] 7.1 g/dL Normal 6.4-8.3 [facility] Comment on above: Performed By: #### H FP #### [facility] (DEFAULT) [address] [address] No Panel 06-08 [facility] URINE DRUG SCREEN 06-08 Amphetamine/Methamphe tamine Negative Normal Cutoff: 500 ng/mL [facility] Comment on above: Order Comment: For edical purposes only. Positive results are unconfirmed unless otherwise noted. Performed By: #### 1 0DRUG #### [facility] (DEFAULT) [address] [address] Barbiturates Negative Normal Cutoff: 200 ng/mL [facility] Comment on above: Order Comment: For m edical purposes only. Positive results are unconfirmed unless otherwise noted. Performed By: #### 1 0DRUG #### [facility] (DEFAULT) [address] [address] Benzodiazepines Negative Normal Cutoff: 200 ng/mL [facility] Comment on above: Order Comment: For m edical purposes only. Positive results are unconfirmed unless otherwise noted. Performed By: #### 1 0DRUG #### [facility] (DEFAULT) [address] [address] Buprenorphine Negative Normal Cutoff: 5 ng/mL [facility] [facility] Comment on above: Order Comment: For edical purposes only. Positive results are unconfirmed unless otherwise noted. Performed By: #### 1 0DRUG #### [facility] (DEFAULT) [address] [address] Cannabinoids Screen Ql (U) Negative Normal Cutoff: 50 ng/mL [facility] Comment on above: Order Comment: For m edical purposes only. Positive results are unconfirmed unless otherwise noted. Performed By: #### 1 0DRUG #### [facility] (DEFAULT) [address] [address] Cocaine Negative Normal Cutoff: 150 ng/mL [facility] Comment on above: Order Comment: For m edical purposes only. Positive results are unconfirmed unless otherwise noted. Performed By: #### 1 0DRUG #### [facility] (DEFAULT) [address] [address] Fentanyl Negative Normal Cutoff: 1 ng/mL [facility] Comment on above: Order Comment: For m edical purposes only. Positive results are unconfirmed unless otherwise noted. Performed By: #### 1 0DRUG #### [facility] (DEFAULT) [address] [address] Methadone Negative Normal Cutoff: 300 ng/mL [facility] Comment on above: Order Comment: For m edical purposes only. Positive results are unconfirmed unless otherwise noted. Performed By: #### 1 0DRUG #### [facility] (DEFAULT) [address] [address] Opiates Negative Normal Cutoff: 300 ng/mL [facility] Comment on above: Order Comment: For m edical purposes only. Positive results are unconfirmed unless otherwise noted. Performed By: #### 1 0DRUG #### [facility] (DEFAULT) [address] [address] Oxycodone Negative Normal Cutoff: 100 ng/mL [facility] Comment on above: Order Comment: For m edical purposes only. Positive results are unconfirmed unless otherwise noted. Performed By: #### 1 0DRUG #### [facility] (DEFAULT) [address] [address] ALCOHOL (ETHANOL),BLOODOrder ed By: Jaqueline Vega on 06-07-2022 Ethanol Ql (Bld) 146 mg/dL High NINF - 10 mg[facility] Interpretation and review of laboratory results Abnormal [facility] URINE DRUG SCREEN 10on 06-07 Amphetamine+Methamphe tamine Screen (U) [Mass/Vol] Negative [facility] Barbiturates Ql (U) [facility]ines [facility]l (U) [facility] Buprenorphine Ql (U) Negative [facility] Cannabinoids Screen Ql (U) Negative [facility] Cocaine Ql (U) Negative [facility] fentaNYL Ql (U) [facility] Interpretation and review of laboratory results Normal [facility] Methadone Ql (U) Negative [facility] Opiates Ql (U) Negative [facility] oxyCODONE Ql (U) Negative [facility] For medical purposes only. Positive results are unconfirmed unless otherwise noted. [facility] XR FOOT RIGHT 3+ VIEWS (SCOTTIE DARD)on 05-30-2022 XR FOOT RIGHT 3+ VIEWS (STANDARD) EXAMINATION: THREE XRAY VIEWS OF THE RIGHT FOOT 05/30/2022 1:30 pm COMPARISON: None. HISTORY: ORDERING SYSTEM PROVIDED HISTORY: atraumatic mid right foot pain; TECHNOLOGIST PROVIDED HISTORY: Illness/Other Acuity: Acute Reason for Exam: atraumatic mid right foot pain Cancer History: Surgery, Radiation History: Type of Encounter: Initial Additional signs and symptoms: UNK FINDINGS: Mild osteophyte formation involving the 1st metatarsal head. No fracture dislocation identified. Secondary navicular bone. Mild soft tissue swelling adjacent to the secondary navicular bone. IMPRESSION: Mild soft tissue swelling adjacent to a secondary navicular bone which may related to trauma to this area. No fracture. Workstation ID: [id number] Dictated by: JULIOCESAR WILCOX on Sat May 30, 2022 1:48:39 PM EDT Transcribed by: JULIOCESAR WILCOX on Sat May 30, 2022 1:48:39 PM EDT Finalized by: JULIOCESAR WILCOX on Sat May 30, 2022 1:48:39 PM EDT [facility] Comment on above: Order Comment: Injur y/Trauma or Illness?:Illness/Other How long have you had these symptoms (acute/chronic)?:Acute Reason for exam?:atraumatic mid right foot pain History of cancer?: Surgeries, chemotherapy, or radiation?: Type of Exam?:Initial Additional signs and symptoms?:UNK CT HEAD OR BRAIN WITHOUT CON TRASTon 05-29-2022 CT HEAD OR BRAIN WITHOUT CONTRAST EXAMINATION: CT OF THE HEAD WITHOUT CONTRAST 05/29/2022 TECHNIQUE: CT of the head was performed without the administration of intravenous contrast. Dose modulation, iterative reconstruction, and/or weight based adjustment of the mA/kV was utilized to reduce the radiation dose to as low as reasonably achievable. COMPARISON: May 02, 2021 HISTORY: ORDERING SYSTEM PROVIDED HISTORY: Mental status change, unknown cause; TECHNOLOGIST PROVIDED HISTORY: Illness/Other Acuity: Unknown Reason for Exam: Mental status change, unknown cause Type of Encounter: Unknown Additional signs and symptoms: Mental status change, unknown cause ORDERING SYSTEM PROVIDED DIAGNOSIS CODES: F10.921 Alcohol intoxication with delirium (HCC) FINDINGS: BRAIN/VENTRICLES: No acute intracranial hemorrhage or extraaxial fluid collection. Ma-white differentiation is maintained. No evidence of mass, mass effect or midline shift. No evidence of hydrocephalus. ORBITS: The visualized portion of the orbits demonstrate no acute abnormality. SINUSES: Mucosal thickening involving the maxillary sinuses. Remainder of the imaged paranasal sinuses and mastoid air cells are well aerated. SOFT TISSUES/SKULL: No acute abnormality of the visualized skull or soft tissues. IMPRESSION: No acute intracranial abnormality. Mild paranasal sinus disease. Workstation ID: [id number] Dictated by: JULIOCESAR WILCOX on WedMay 29, 2022 6:44:59 PM EDT Transcribed by: JULIOCESAR WILCOX on WedMay 29, 2022 6:44:59 PM EDT Finalized by: JULIOCESAR WILCOX on WedMay 29, 2022 6:44:59 PM EDT [facility] Comment on above: Order Comment: Injur y/Trauma or Illness?:Illness/Other How long have you had these symptoms (acute/chronic)?:Unknown Reason for exam?:Mental status change, unknown cause Type of Exam?:Unknown Additional signs and symptoms?:Mental status change, unknown cause Glucose Auto test strip (Bld ) [Mass/Vol]on 05-28-2022 Glucose POC 117 mg/dL Abnormal 70 - 110 mg/dL [facility] Comment on above: pp 3 hrs Interpretation and review of laboratory results Abnormal [facility] Comprehensive metabolic 2000 panelon 05-19-2022 Ethanol Level <10 Normal <10 [facility] Comment on above: Performed By: #### 2 4323-8 #### [facility] [address] [place] [address] Albumin [Mass/Vol] 4.3 g/dL 3.5 - 4.8 g/dL [facility] ALP [Catalytic activity/Vol] 90 U/L [facility] ALT [Catalytic activity/Vol] 63 U/L High [facility] Anion gap [Moles/Vol] 8 mmol/L 6 - 18 [facility] AST [Catalytic activity/Vol] 28 U/L [facility] Bilirubin [Mass/Vol] 0.3 mg/dL 0.3 - 1 .2 mg/dL [facility] Calcium [Mass/Vol] 9.0 mg/dL 8.9 - 10. 3 mg/dL [facility] Chloride [Moles/Vol] 104 mmol/L 98 - 10 7 mmol/L [facility] CO2 [Moles/Vol] 27 mmol/L 22 - 32 mmol/L [facility] Creatinine [Mass/Vol] 1.11 mg/dL 0.60 - 1.30 mg/dL [facility] GFR/1.73 sq M.predicted among non-blacks MDRD (S/P/Bld) [Vol rate/Area] 87 mL/min/{1.73_m2} - PINF [facility] Comment on above: Effective November 16, 2021, calculation based on the Chronic Kidney Disease Epidemiology Collaboration (CKD-EPI) equation refit without adjustment for race. Glucose [Mass/Vol] 105 mg/dL High 70 - 99 mg/dL [facility] Interpretation and review of laboratory results Abnormal [facility] Potassium [Moles/Vol] 4.4 mmol/L 3.6 - 5.1 mmol/L [facility] Protein [Mass/Vol] 6.9 g/dL 6.1 - 7.9 g/dL [facility] Sodium [Moles/Vol] 139 mmol/L 136 - 145 mmol/L [facility] Urea nitrogen [Mass/Vol] 13 mg/dL 8 - 20 mg/dL [facility] Urea nitrogen/Creatinine [Mass ratio] 11.7 mg/mg Low 12.0 - 20.0 [facility] Drugs identified Screen Nom (U)on 05-19-2022 Amphetamine Screen, Ur Not detected Normal Not Detected [facility] Comment on above: Order Comment: The f ollowing detection limits are used for the urine drugs of abuse: Amphetamine 1000 ng/mL Barbiturate 200 ng/mL Benzodiazepine 200 ng/mL Cannabinoids 50 ng/mL Cocaine 300 ng/mL Methadone 300 ng/mL Opiates 300 ng/mL Oxycodone 100 ng/mL Testing is for screening purposes only and should not be used in non-medical determinations. Confirmatory testing is available on request. Performed By: #### 1 2286-1 #### [facility] [address] [place] [address] Barbiturate Screen, Ur Not detected Normal Not Detected [facility] Comment on above: Order Comment: The f ollowing detection limits are used for the urine drugs of abuse: Amphetamine 1000 ng/mL Barbiturate 200 ng/mL Benzodiazepine 200 ng/mL Cannabinoids 50 ng/mL Cocaine 300 ng/mL Methadone 300 ng/mL Opiates 300 ng/mL Oxycodone 100 ng/mL Testing is for screening purposes only and should not be used in non-medical determinations. Confirmatory testing is available on request. Performed By: #### 1 2286-1 #### [facility] [address] [place] [address] Benzodiazepine Screen, Ur Not detected Normal Not Detected [facility] Comment on above: Order Comment: The f ollowing detection limits are used for the urine drugs of abuse: Amphetamine 1000 ng/mL Barbiturate 200 ng/mL Benzodiazepine 200 ng/mL Cannabinoids 50 ng/mL Cocaine 300 ng/mL Methadone 300 ng/mL Opiates 300 ng/mL Oxycodone 100 ng/mL Testing is for screening purposes only and should not be used in non-medical determinations. Confirmatory testing is available on request. Performed By: #### 1 2286-1 #### [facility] [address] [place] [address] Cannabinoid (THC) Screen, Ur Not detected Normal Not Detected [facility] Comment on above: Order Comment: The f ollowing detection limits are used for the urine drugs of abuse: Amphetamine 1000 ng/mL Barbiturate 200 ng/mL Benzodiazepine 200 ng/mL Cannabinoids 50 ng/mL Cocaine 300 ng/mL Methadone 300 ng/mL Opiates 300 ng/mL Oxycodone 100 ng/mL Testing is for screening purposes only and should not be used in non-medical determinations. Confirmatory testing is available on request. Performed By: #### 1 2286-1 #### [facility] [address] [place] [address] Cocaine Screen, Ur Not detected Normal Not Detected [facility] Comment on above: Order Comment: The f ollowing detection limits are used for the urine drugs of abuse: Amphetamine 1000 ng/mL Barbiturate 200 ng/mL Benzodiazepine 200 ng/mL Cannabinoids 50 ng/mL Cocaine 300 ng/mL Methadone 300 ng/mL Opiates 300 ng/mL Oxycodone 100 ng/mL Testing is for screening purposes only and should not be used in non-medical determinations. Confirmatory testing is available on request. Performed By: #### 1 2286-1 #### [facility] [address] [place] [address] Methadone Screen, Urine Not detected Normal Not Detected [facility] Comment on above: Order Comment: The f ollowing detection limits are used for the urine drugs of abuse: Amphetamine 1000 ng/mL Barbiturate 200 ng/mL Benzodiazepine 200 ng/mL Cannabinoids 50 ng/mL Cocaine 300 ng/mL Methadone 300 ng/mL Opiates 300 ng/mL Oxycodone 100 ng/mL Testing is for screening purposes only and should not be used in non-medical determinations. Confirmatory testing is available on request. Performed By: #### 1 2286-1 #### [facility] [address] [place] [address] Opiate Screen, Ur Not detected Normal Not Detected [facility] Comment on above: Order Comment: The f ollowing detection limits are used for the urine drugs of abuse: Amphetamine 1000 ng/mL Barbiturate 200 ng/mL Benzodiazepine 200 ng/mL Cannabinoids 50 ng/mL Cocaine 300 ng/mL Methadone 300 ng/mL Opiates 300 ng/mL Oxycodone 100 ng/mL Testing is for screening purposes only and should not be used in non-medical determinations. Confirmatory testing is available on request. Performed By: #### 1 2286-1 #### [facility] [address] [place] [address] Oxycodone Screen, Ur Not detected Normal Not Detected [facility] Comment on above: Order Comment: The f ollowing detection limits are used for the urine drugs of abuse: Amphetamine 1000 ng/mL Barbiturate 200 ng/mL Benzodiazepine 200 ng/mL Cannabinoids 50 ng/mL Cocaine 300 ng/mL Methadone 300 ng/mL Opiates 300 ng/mL Oxycodone 100 ng/mL Testing is for screening purposes only and should not be used in non-medical determinations. Confirmatory testing is available on request. Performed By: #### 1 2286-1 #### [facility] [address] [place] [address] Amphetamines Ql (U) Not detected Not Detected [facility] Barbiturates Screen Ql (U) Not detected Not Detected [facility] Benzodiazepines Ql (U) Not detected Not Detected [facility] Cannabinoids Screen Ql (U) Not detected Not Detected [facility] Cocaine Ql (U) Not detected Not Detected [facility] Interpretation and review of laboratory results Normal [facility] Methadone Screen Ql (U) Not detected Not Detected [facility] Opiates Screen Ql (U) Not detected Not Detected [facility] oxyCODONE Ql (U) Not detected Not Detected [facility] The following detect ion limits are used for the urine drugs of abuse: Amphetamine 1000 ng/mL Barbiturate 200 ng/mL Benzodiazepine 200 ng/mL Cannabinoids 50 ng/mL Cocaine 300 ng/mL Methadone 300 ng/mL Opiates 300 ng/mL Oxycodone 100 ng/mL Testing is for screening purposes only and should not be used in non-medical determinations. Confirmatory testing is available on request. [facility] Ethanol (Bld) [Moles/Vol]on 05-19-2022 Ethanol [Mass/Vol] mg/dL NINF - 10 mg/dL [facility] Interpretation and review of laboratory results Normal [facility] [place] urine culture tubeon Specimen source Nom (Unsp spec) Hold for add-ons. [facility] Comment on above: Auto resulted. [facility] Hemogram and platelets WO di fferential panel (Bld)on 05-19-2022 Erythrocyte distribution width (RBC) [Ratio] 13.3 % Normal 11.0-14.8 [facility] Comment on above: Performed By: #### 2 4317-0 #### [facility] [address] [place], [place] [address] [address] Hematocrit (Bld) [Volume fraction] 44.3 % Normal 39.0-49.0 [facility] Comment on above: Performed By: #### 2 4317-0 #### [facility] [address] [place], [place] [address] [address] Hemoglobin (Bld) [Mass/Vol] 15.8 g/dL Normal 13.5-17.5 [facility] Comment on above: Performed By: #### 2 4317-0 #### [facility] [address] [place], [place] [address] [address] MCH 30.0 pcg Normal 27.0-34.0 [facility] Comment on above: Performed By: #### 2 4317-0 #### [facility] [address] [place], [place] [address] [address] MCHC (RBC) [Mass/Vol] 35.7 g/dL High 30.8-35.3 [facility] Comment on above: Performed By: #### 2 4317-0 #### [facility] [address] [place], [place] [address] [address] MCV (RBC) [Entitic vol] 84.1 fL Normal 80.0-97.0 [facility] Comment on above: Performed By: #### 2 4317-0 #### [facility] [address] [place], [place] [address] [address] Platelet mean volume (Bld) [Entitic vol] 8.3 fL Normal 6.2-12.1 [facility] Comment on above: Performed By: #### 2 4317-0 #### [facility] [address] [place] [address] [place] [address] Platelets (Bld) [#/Vol] 329 10*3/uL Normal 142-424 [facility] Comment on above: Performed By: #### 2 4317-0 #### [facility] [address] [place] [address] [place] [address] RBC (Bld) [#/Vol] 5.27 10*6/uL Normal 4.30-5.70 [facility] Comment on above: Performed By: #### 2 4317-0 #### [facility] [address] [place] [address] WBC (Bld) [#/Vol] 10.1 10*3/uL Normal 4.6-10.2 [facility] Comment on above: Performed By: #### 2 4317-0 #### [facility] [address] [place] [address] Erythrocyte distribution width (RBC) [Ratio] 13.3 % 11.0 - 14.8 % [facility] Hematocrit (Bld) [Volume fraction] 44.3 % 39.0 - 49.0 % [facility] Hemoglobin (Bld) [Mass/Vol] 15.8 g/dL 13.5 - 17.5 g/dL [facility] Interpretation and review of laboratory results Abnormal [facility] MCH (RBC) [Entitic mass] 30.0 pg [facility] MCHC (RBC) [Mass/Vol] 35.7 g/dL High 30.8 - 35.3 g/dL [facility] MCV (RBC) [Entitic vol] 84.1 fL [facility] Platelet mean volume (Bld) [Entitic vol] 8.3 fL [facility] Platelets (Bld) [#/Vol] 329 10*3/uL [facility] RBC (Bld) [#/Vol] 5.27 10*6/uL [facility] WBC (Bld) [#/Vol] 10.1 10*3/uL [facility] N gonorrhoea DNA Ur Ql KARIN+p robeon 05-19-2022 N. gonorrhoeae DNA KARIN+probe Ql (U) N. gonorrhoeae, RNA Probe Status = F Negative Chlamydia, RNA Probe Status = F Negative Normal Negative [facility] Comment on above: Performed By: #### 2 1416-3 #### [facility] [address] [place] [address] TSH Qnon 05-19-2022 Interpretation and review of laboratory results Normal [facility] Thyroid Stimulating Hormone (TSH)on 05-19-2022 TSH Qn 1.16 m[IU]/L [facility] Urinalysis dipstick W Reflex Microscopic panel (U)on 05-19-2022 Bacteria, Urine Rare Abnormal None [facility] Comment on above: Performed By: #### 5 7020-0 #### [facility] [address] [place] [address] Bilirubin, Urine Negative Normal Negative [facility] Comment on above: Performed By: #### 5 7020-0 #### [facility] [address] [place] [address] Blood, Urine Negative Normal Negative [facility] Comment on above: Performed By: #### 5 7020-0 #### [facility] [address] [place] [address] Clarity (U) Clear Normal Clear [facility] Comment on above: Performed By: #### 5 7020-0 #### [facility] [address] [place] [address] Color (U) Straw Abnormal Yellow [facility] Comment on above: Performed By: #### 5 7020-0 #### [facility] [address] [place] [address] Glucose Ql (U) Normal Normal Normal [facility] Comment on above: Performed By: #### 5 7020-0 #### [facility] [address] [place] [address] Ketones Ql (U) Negative Normal Negative [facility] Comment on above: Performed By: #### 5 7020-0 #### [facility] [address] [place] [address] Leukocytes, Urine Negative Normal Negative [facility] Comment on above: Performed By: #### 5 7020-0 #### [facility] [address] [place] [address] Mucus, UA Rare Abnormal None [facility] Comment on above: Performed By: #### 5 7020-0 #### [facility] [address] [place] [address] Nitrite, Urine Negative Normal Negative [facility] Comment on above: Performed By: #### 5 7020-0 #### [facility] [address] [place] [address] pH (U) 7.5 [pH] Normal 5.0-8.0 [facility] Comment on above: Performed By: #### 5 7020-0 #### [facility] [address] [place] [address] Protein (U) [Mass/Vol] 10 mg/dL Abnormal Negative [facility] Comment on above: Performed By: #### 5 7020-0 #### [facility] [address] [place] [address] RBC LM.HPF (Urine sed) [#/Area] /[HPF] Normal 0-5 [facility] Comment on above: Performed By: #### 5 70-0 #### [facility] [address] [address] Specific [place] Urine 1.015 Normal 1.002-1.030 [facility] Comment on above: Performed By: #### 5 7020-0 #### [facility] [address] [place] [address] Squamous Epithelial, Urine Rare Abnormal None [facility] Comment on above: Performed By: #### 5 7020-0 #### [facility] [address] [place] [address] Urobilinogen, Urine Normal Normal Normal [facility] Comment on above: Performed By: #### 5 7020-0 #### [facility] [place] [address] WBC LM.HPF (Urine sed) [#/Area] 1 /[HPF] Normal 0-5 [facility] Comment on above: Performed By: #### 5 7020-0 #### [facility] [address] [place] [address] Bacteria LM.HPF (Urine sed) [#/Area] Rare Abnormal None /HPF [facility] Bilirubin Ql (U) Negative Negative mg/dL [facility] Clarity (U) Clear Clear [facility] Color (U) Straw Abnormal Yellow [facility] Epithelial cells.squamous LM.HPF (Urine sed) [#/Area] Rare Abnormal None /LPF [facility] Glucose Ql (U) Normal Normal mg/dL [facility] Hemoglobin Ql (U) Negative Negative [facility] Interpretation and review of laboratory results Abnormal [facility] Ketones (U) [Mass/Vol] Negative Negative mg/dL [facility] Leukocyte esterase Test strip Ql (U) Negative Negative WBCs/mcL [facility] Mucus Ql (Urine sed) Rare Abnormal None /LPF [facility] Nitrite Ql (U) Negative Negative [facility] pH (U) 7.5 [pH] 5.0 - 8.0 pH [facility] Protein (U) [Mass/Vol] 10 mg/dL Abnormal Negative [facility] RBC LM.HPF (Urine sed) [#/Area] [facility] Specific gravity (U) [Rel density] 1.015 1.002 - 1.030 [facility] Urobilinogen (U) [Mass/Vol] Normal Normal mg/dL [facility] WBC LM.HPF (Urine sed) [#/Area] 1 /[HPF] [facility] ALCOHOL (ETHANOL),BLOODOrder ed By: Facundo Lewis on 05-14-2022 Ethanol Ql (Bld) mg/dL NINF - 10 mg/dL [facility] Interpretation and review of laboratory results Normal [facility] CHM 7 - EDon 05-14-2022 Anion gap [Moles/Vol] 11 mmol/L 7 - 17 mmol/L [facility] Chloride [Moles/Vol] 102 mmol/L 98 - 10 8 mmol/L [facility] CO2 [Moles/Vol] 27 mmol/L 21 - 31 mmol/L [facility] Creatinine [Mass/Vol] 1.22 mg/dL 0.70 - 1.30 mg/dL [facility] GFR/1.73 sq M.predicted CKD-EPI (S/P/Bld) [Vol rate/Area] 78 - PINF [facility] Comment on above: Reported eGFR is bas ed on the CKD-EPI 2020 equation using creatinine, age, and sex. Glucose [Mass/Vol] 84 mg/dL 70 - 99 mg/dL [facility] Osmolality Calc [Osmolality] 287 [facility] Potassium [Moles/Vol] 4.0 mmol/L 3.5 - 5.0 mmol/L [facility] Sodium [Moles/Vol] 136 mmol/L 135 - 145 mmol/L [facility] Urea nitrogen [Mass/Vol] 21 mg/dL 7 - 25 mg/dL [facility] Urea nitrogen/Creatinine [Mass ratio] 17 mg/mg [facility] GOLD TOP TUBEon 05-14-2022 [facility] No Panel Informationon 05-14 [facility] URINE DRUG SCREEN 10on 05-14 Amphetamine+Methamphe tamine Screen (U) [Mass/Vol] Positive Abnormal [facility] Barbiturates Ql (U) Negative [facility] Benzodiazepines Ql (U) Negative [facility] Buprenorphine Ql (U) Negative [facility] Cannabinoids Screen Ql (U) Negative [facility] Cocaine Ql (U) Negative [facility] fentaNYL Ql (U) Negative [facility] Interpretation and review of laboratory results Abnormal [facility] Methadone Ql (U) Negative [facility] Opiates Ql (U) Negative [facility] oxyCODONE Ql (U) Negative [facility] For medical purposes only. Positive results are unconfirmed unless otherwise noted. [facility] ACETAMINOPHEN LEVELon 2022 Acetaminophen [Mass/Vol] ug/mL Low 10.0-20.0 [facility] Comment on above: Result Comment: Note : J-rcnnam-m-benzoquinone imine (metabolite of acetaminophen) will generate erroneously low lipase and uric acid results in samples for patients that have taken toxic doses of acetaminophen. Interpret with caution. ALCOHOL (ETHANOL),BLOODon Serum Alcohol 36 mg/dL High <=10 [facility] Serum Alcohol 157 mg/dL High <=10 [facility] BASIC METABOLIC PANELon 04-09 Calcium [Mass/Vol] 8.5 mg/dL Low 8.6-10.3 [facility] Chloride [Moles/Vol] 106 mmol/L Normal 98-107 [facility] CO2 [Moles/Vol] 20 mmol/L Low 23-29 [facility] Creatinine [Mass/Vol] 0.96 mg/dL Normal 0.70-1.30 [facility] eGFR, CKD-EPI, Male > Normal >=60 [facility] Comment on above: Result Comment: Repo rted eGFR is based on the CKD-EPI 2020 equation using creatinine, age, and sex. Glucose [Mass/Vol] 108 mg/dL High 70-105 [facility] [place] Osmolality [Osmolality] 287 mosm/kg Normal 280-300 [facility] [place] Potassium [Moles/Vol] 3.6 mmol/L Normal 3.5-5.1 [facility] [place] [facility] [place] Sodium [Moles/Vol] 137 mmol/L Normal 136-145 [facility] [place] Urea nitrogen [Mass/Vol] 19 mg/dL Normal 6-20 [facility] [place] Urea nitrogen/Creatinine [Mass ratio] 20 mg/mg Normal - [facility] [place] CBC AND ELECTRONIC DIFFon Basophils (Bld) [#/Vol] 0.0 10*3/uL Normal 0.0-0.2 [facility] [place] Basophils/100 WBC (Bld) 0.4 % Normal [facility] Eosinophils (Bld) [#/Vol] 0.1 10*3/uL Normal 0.0-0.6 [facility] Eosinophils/100 WBC (Bld) 1.7 % Normal [facility] [place] Hematocrit (Bld) [Volume fraction] 40.3 % Normal 37.5-50.1 [facility] Hemoglobin (Bld) [Mass/Vol] 14.4 g/dL Normal 12.9-16.9 [facility] Immature Grans % 0.4 % Normal [facility] Lymphocytes (Bld) [#/Vol] 2.8 10*3/uL Normal 0.6-4.6 [facility] Lymphocytes/100 WBC (Bld) 36.8 % Normal [facility] [place] MCV (RBC) [Entitic vol] 83.6 fL Normal 83.0-100.0 [facility] Mean Cell Hgb 29.9 pg Normal 28.0-33.0 [facility] Mean Cell Hgb Conc 35.7 g/dL High 31.6-35.5 [facility] [place] Monocytes (Bld) [#/Vol] 1.0 10*3/uL Normal 0.0-1.3 [facility] Monocytes/100 WBC (Bld) 12.6 % Normal [facility] [place] Nucleated RBC 0 /100 WBC Normal [facility] [place] Platelet mean volume (Bld) [Entitic vol] 8.3 fL Low 9.4-12.4 [facility] Platelets (Bld) [#/Vol] 273 10*3/uL Normal 140-400 [facility] RBC (Bld) [#/Vol] 4.82 10*6/uL Normal 4.19-5.[facility] [place] RBC Distribution 13.4 % Normal 11.5-14.5 [facility] Segs + Bands Auto 48.1 % Normal [facility] Segs + Bands,Absolute Auto 3.6 K/uL Normal 1.6-8.9 [facility] WBC (Bld) [#/Vol] 7.6 10*3/uL Normal 4.3-11.1 [facility] CHLAMYDIA & GONORRHEA AMPLIF IED PROBEon 05-03-2022 Chlamydia trachomatis Amplified Probe Not detected Normal Not Detected [facility] Comment on above: Result Comment: Chla mydia trachomatis DNA not detected by real-time PCR. Neisseria gonorrhea Amplified Probe Not detected Normal Not Detected [facility] [place] Comment on above: Result Comment: Neis seria gonorrhoeae DNA not detected by real-time PCR. DRUGS OF ABUSE PROFILE, URIN Ariel 05-03-2022 Amphetamine/Methamphe tamine Positive Abnormal Negative [facility] [place] Barbiturates Negative Normal Negative [facility] [place] Benzodiazepines Negative Normal Negative [facility] [place] Buprenorphine Negative Normal Negative [facility] [place] Cannabinoids Screen Ql (U) Negative Normal Negative [facility] [place] Cocaine Negative Normal Negative [facility] [place] Opiates Negative Normal Negative [facility] [place] Phencyclidine Negative Normal Negative [facility] [place] RESPIRATORY PANEL (COVID, [place] U, RSV)on 05-03-2022 Influenza A PCR Negative [facility] Comment on above: Order Comment: Note: This Cepheid Xpert Xpress SARS-CoV-2/Flu/RSV nucleic acid test has not been FDA cleared or approved.? This test has been authorized by FDA under an Emergency Use Authorization (EUA).? This test is only authorized for the duration of time the declaration that circumstances exist justifying the authorization of the emergency use of in vitro diagnostic tests for the detection of SARS-CoV-2 virus and/or diagnosis of COVID-19 infection under section 564(b)(1) of the Act, 21 U.S.C. 360bbb-3(b)(1), unless the authorization is terminated or revoked sooner.Fact Sheet for Healthcare Providers:? https://www.fda.gov/media/329715/download?Fact Sheet for Patients:?http s://www.fda.gov/media/365896/download Influenza B - Pcr Negative Normal Negative [facility] Comment on above: Order Comment: Note: This CepDelt[employer]id Xpert Xpress SARS-CoV-2/Flu/RSV nucleic acid test has not been FDA cleared or approved.? This test has been authorized by FDA under an Emergency Use Authorization (EUA).? This test is only authorized for the duration of time the declaration that circumstances exist justifying the authorization of the emergency use of in vitro diagnostic tests for the detection of SARS-CoV-2 virus and/or diagnosis of COVID-19 infection under section 564(b)(1) of the Act, 21 U.S.C. 360bbb-3(b)(1), unless the authorization is terminated or revoked sooner.Fact Sheet for Healthcare Providers:? https://www.[employer]gov/media/561794/download?Fact Sheet for Patients:?http s://www.[employer]gov/media/590780/download RSV - PCR Negative Normal Negative [facility] Comment on above: Order Comment: Note: This [employer]ep[employer] Xpert Xpress SARS-CoV-2/Flu/RSV nucleic acid test has not been FDA cleared or approved.? This test has been authorized by FDA under an Emergency Use Authorization (EUA).? This test is only authorized for the duration of time the declaration that circumstances exist justifying the authorization of the emergency use of in vitro diagnostic tests for the detection of SARS-CoV-2 virus and/or diagnosis of COVID-19 infection under section 564(b)(1) of the Act, 21 U.S.C. 360bbb-3(b)(1), unless the authorization is terminated or revoked sooner.Fact Sheet for Healthcare Providers:? https://www.[employer]gov/[employer]/253270/download?Fact Sheet for Patients:?http s://www.[employer]gov/media/500045/download SARS-CoV-2 (COVID-19) RNA KARIN+probe Ql (Unsp spec) Negative Normal NEGATIVE [facility] Comment on above: Order Comment: Note: This [employer] Xpert Xpress SARS-CoV-2/Flu/RSV nucleic acid test has not been FDA cleared or approved.? This test has been authorized by FDA under an Emergency Use Authorization (EUA).? This test is only authorized for the duration of time the declaration that circumstances exist justifying the authorization of the emergency use of in vitro diagnostic tests for the detection of SARS-CoV-2 virus and/or diagnosis of COVID-19 infection under section 564(b)(1) of the Act, 21 U.S.C. 360bbb-3(b)(1), unless the authorization is terminated or revoked sooner.Fact Sheet for Healthcare Providers:? https://www.[employer]gov/media/370325/download?Fact Sheet for Patients:?http s://www.[employer]gov/media/451774/download Result Comment: Nega tive results do not preclude SARS-CoV-2 infection and should not be used as the sole basis for treatment or other patient management decisions.? Negative results must be combined with clinical observations, patient history, and epidemiological information. SALICYLATE LEVELon Salicylate <2.5 Low 15.0-30.0 [facility] URINE DIPSTICK; REFLEX MICRO SCOPY; REFLEX CULTURE PERFORMABLEon 05-03-2022 Appearance (U) Clear Normal Clear [facility] Bilirubin Ql (U) Negative Normal Negative [facility] Blood Urine Negative Normal Negative [facility] Color (U) Colorless Abnormal Yellow [facility] Glucose Ql (U) Normal Normal Normal [facility] Ketones Ql (U) Negative Normal Negative [facility] Leukocyte esterase Test strip Ql (U) Negative Normal Negative [facility] Nitrites Urine Negative Normal Negative [facility] pH Urine 6.0 pH Units Normal 5.0-8.0 [facility] Protein Urine Negative Normal Negative-Tra ce [facility] Specific [place] Urine 1.013 Normal 1.010-1.025 [facility] Urobilinogen Urine Normal Normal Normal [facility] ECGon 04-30-2022 Electrocardiogram [facility] Test Date: 2022-04-27 Pat Name: MCKINLEY ROMAN Department: EXAM4 Room: E04 Gender: M 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1985 Requested By: RONNY Vega Order Number: [id number] Reading MD: Scotty Waters Measurements Intervals [place] Rate: 75 P: 46 OR: 155 QRS: 71 QRSD: 102 T: 34 QT: 393 QTc: 439 Interpretive Statements Sinus rhythm Electronically Signed On 04-30-2022 4:01:39 EDT by Scotty Waters [facility] ALCOHOL (ETHANOL),BLOODon Serum Alcohol 47 mg/dL High <=10 [facility] Serum Alcohol 100 mg/dL High <=10 [facility] Serum Alcohol 176 mg/dL High <=10 [facility] BASIC METABOLIC PANELon 04-09 Calcium [Mass/Vol] 9.0 mg/dL Normal 8.6-10.3 [facility] Chloride [Moles/Vol] 108 mmol/L High 98-107 [facility] CO2 [Moles/Vol] 24 mmol/L Normal 23-29 [facility] Creatinine [Mass/Vol] 1.06 mg/dL Normal 0.70-1.30 [facility] eGFR, CKD-EPI, Male > Normal >=60 [facility] Comment on above: Result Comment: Repo rted eGFR is based on the CKD-EPI 2020 equation using creatinine, age, and sex. Glucose [Mass/Vol] 100 mg/dL Normal 70-105 [facility] Osmolality [Osmolality] 292 mosm/kg Normal 280-300 [facility] Potassium [Moles/Vol] 4.3 mmol/L Normal 3.5-5.1 [facility] Sodium [Moles/Vol] 141 mmol/L Normal 136-145 [facility] [place] Urea nitrogen [Mass/Vol] 12 mg/dL Normal - [facility] [place] Urea nitrogen/Creatinine [Mass ratio] 11 mg/mg Normal - [facility] [place] CBC AND ELECTRONIC DIFFon Basophils (Bld) [#/Vol] 0.0 10*3/uL Normal 0.0-0.2 [facility] [place] Basophils/100 WBC (Bld) 0.5 % Normal [facility] [place] Eosinophils (Bld) [#/Vol] 0.2 10*3/uL Normal 0.0-0.6 [facility] [place] Eosinophils/100 WBC (Bld) 2.6 % Normal [facility] [place] Hematocrit (Bld) [Volume fraction] 45.1 % Normal 37.5-50.1 [facility] [place] Hemoglobin (Bld) [Mass/Vol] 16.0 g/dL Normal 12.9-16.9 [facility] Immature Grans % 0.4 % Normal [facility] [place] Lymphocytes (Bld) [#/Vol] 3.8 10*3/uL Normal 0.6-4.6 [facility] Lymphocytes/100 WBC (Bld) 45.5 % Normal [facility] [place] MCV (RBC) [Entitic vol] 83.2 fL Normal 83.0-100.0 [facility] [place] Mean Cell Hgb 29.5 pg Normal 28.0-33.0 [facility] [place] Mean Cell Hgb Conc 35.5 g/dL Normal 31.6-35.5 [facility] [place] Monocytes (Bld) [#/Vol] 0.8 10*3/uL Normal 0.0-1.3 [facility] Monocytes/100 WBC (Bld) 10.1 % Normal [facility] [place] Nucleated RBC 0 /100 WBC Normal [facility] [place] Platelet mean volume (Bld) [Entitic vol] 8.4 fL Low 9.4-12.4 [facility] [place] Platelets (Bld) [#/Vol] 275 10*3/uL Normal 140-400 [facility] [place] RBC (Bld) [#/Vol] 5.42 10*6/uL Normal 4.19-5.50 [facility] [place] RBC Distribution 13.5 % Normal 11.5-14.5 [facility] Segs + Bands Auto 40.9 % Normal [facility] [place] Segs + Bands,Absolute Auto 3.4 K/uL Normal 1.6-8.9 [facility] [place] WBC (Bld) [#/Vol] 8.4 10*3/uL Normal 4.3-11.1 [facility] [place] DRUGS OF ABUSE PROFILE, URIN Ariel 04-27-2022 Amphetamine/Methamphe tamine Negative Normal Negative [facility] [place] Barbiturates Negative Normal Negative [facility] [place] Benzodiazepines Negative Normal Negative [facility] [place] Buprenorphine Negative Normal Negative [facility] [place] Cannabinoids Screen Ql (U) Negative Normal Negative [facility] [place] Cocaine Negative Normal Negative [facility] [place] Opiates Negative Normal Negative [facility] [place] Phencyclidine Negative Normal Negative [facility] [place] HEPATIC FUNCTION PANELon Albumin [Mass/Vol] 4.4 g/dL Normal 3.5-5.7 [facility] [place] Albumin/Globulin [Mass ratio] 1.6 {ratio} Normal 1.1-2.2 [facility] ALP [Catalytic activity/Vol] 82 U/L Normal 34-104 [facility] [place] ALT [Catalytic activity/Vol] 36 U/L Normal 7-52 [facility] [place] AST [Catalytic activity/Vol] 18 U/L Normal 13-39 [facility] [place] Bilirubin [Mass/Vol] 0.3 mg/dL Normal 0.3-1.0 [facility] [place] Bilirubin, Indirect 0.3 mg/dL Normal 0.0-1.0 [facility] Bilirubin.indirect [Mass/Vol] 0.0 mg/dL Normal <=0.2 [facility] [place] Globulin (S) [Mass/Vol] 2.7 g/dL Normal 2.4-3.5 [facility] [place] Protein [Mass/Vol] 7.1 g/dL Normal 6.4-8.9 [facility] [place] LACTATE, BLOODon 04-27-2022 Lactate [Moles/Vol] 1.6 mmol/L Normal 0.5-2.2 [facility] [place] MAGNESIUMon 04-27-2022 Magnesium [Mass/Vol] 2.1 mg/dL Normal 1.6-2.6 [facility] [place] PROTIME-INRon 04-27-2022 INR Coag (PPP) [Relative time] 1.1 {INR} Normal [facility] [place] Comment on above: Result Comment: For Patients on oral anticoagulants, the therapeutic INR reference range is 2.0 to 3.5 PT Coag (PPP) [Time] 11.4 s Normal 9.4-12.1 [facility] [place] PTTon 04-27-2022 aPTT Coag (Bld) [Time] 29.0 s Normal 26.0-36.0 [facility] [place] URINE DIPSTICK; REFLEX MICRO SCOPY; REFLEX CULTURE PERFORMABLEon 04-27-2022 Appearance (U) Clear Normal Clear [facility] [place] Bilirubin Ql (U) Negative Normal Negative [facility] [place] Blood Urine Negative Normal Negative [facility] [place] Color (U) Light Yellow Normal Yellow [facility] [place] Glucose Ql (U) Normal Normal Normal [facility] [place] Ketones Ql (U) Negative Normal Negative [facility] [place] Leukocyte esterase Test strip Ql (U) Negative Normal Negative [facility] [place] Nitrites Urine Negative Normal Negative [facility] [place] pH Urine 5.5 pH Units Normal 5.0-8.0 [facility] [place] Protein Urine Trace Normal Negative-Tra ce [facility] [place] Specific [place] Urine 1.015 Normal 1.010-1.025 [facility] Urobilinogen Urine Normal Normal Normal [facility] [place] XR HAND LEFT 3+ VIEWSon 04-09 XR HAND LEFT 3+ VIEWS EXAMINATION: THREE XRAY VIEWS OF THE LEFT HAND 04/27/2022 8:45 am COMPARISON: None. HISTORY: ORDERING SYSTEM PROVIDED HISTORY: TECHNOLOGIST PROVIDED HISTORY: Reason for Exam: Left hand pain and swelling, no recalled injury; FINDINGS: Bones: Oblique fracture of the 4th metacarpal diaphysis extending into the proximal metaphysis. No definite tracheal extension. 3 mm maximal displacement. Otherwise intact. Joints: No dislocation. Joint spaces maintained. Soft tissues: Dorsal swelling. IMPRESSION: Mildly displaced oblique fracture involving the 4th metacarpal diaphysis and proximal metaphysis. The fracture may extend to the edge of the articular surface. Normal [facility] XR ELBOW RIGHT 3+ VIEWS (STA NDARD)on 04-24-2022 XR ELBOW RIGHT 3+ VIEWS (STANDARD) EXAMINATION: XR ELBOW RIGHT 3+ VIEWS (STANDARD); XR HAND LEFT 3+ VIEWS (STANDARD) 04/24/2022 1:14 AM HISTORY: ORDERING SYSTEM PROVIDED HISTORY: Fall, pain, TECHNOLOGIST PROVIDED HISTORY: Injury/Trauma Reason for Exam: Fall, pain Cancer History: Surgery, Radiation History: Encounter Type: Initial Mechanism of Injury: Fall, pain, alcohol intoxication ORDERING SYSTEM PROVIDED DIAGNOSIS CODES: COMPARISON: None. FINDINGS: Three views of the right elbow and 3 views of the left hand were obtained. RIGHT ELBOW: No acute fracture or dislocation is seen. The joint spaces are preserved. There is no significant right elbow joint effusion. LEFT HAND: There is a mildly displaced oblique fracture through the 4th metacarpal dogkwxlt-ah-rkdnskyt with suspected intraarticular extension to the 4th carpometacarpal joint. IMPRESSION: 1. No acute fracture or dislocation of the right elbow is seen. If pain persists, repeat radiographs are recommended in 7 to 10 days. 2. Mildly displaced oblique fracture through the left 4th metacarpal pncoulkw-kc-jyecfaww with suspected intraarticular extension to the 4th carpometacarpal joint. [employer] Workstation ID: [id number] Dictated by: ROCKY GRANADOS on WedApr 24, 2022 1:23:35 AM EDT Transcribed by: CRISTY BATISTA on WedApr 24, 2022 1:30:38 AM EDT Finalized by: ROCKY GRANADOS on WedApr 24, 2022 1:49:50 AM EDT [facility] Comment on above: Order Comment: Injur y/Trauma or Illness?:Injury/Trauma How long have you had these symptoms (acute/chronic)?:Acute Reason for exam?:fall pain History of cancer?: Surgeries, chemotherapy, or radiation?: Type of Exam?:Initial Mechanism of injury?:fall, pain, Alcohol Intoxication XR HAND LEFT 3+ VIEWS (STAND FÁTIMA)on 04-24-2022 XR HAND LEFT 3+ VIEWS (STANDARD) EXAMINATION: XR ELBOW RIGHT 3+ VIEWS (STANDARD); XR HAND LEFT 3+ VIEWS (STANDARD) 04/24/2022 1:14 AM HISTORY: ORDERING SYSTEM PROVIDED HISTORY: Fall, pain, TECHNOLOGIST PROVIDED HISTORY: Injury/Trauma Reason for Exam: Fall, pain Cancer History: Surgery, Radiation History: Encounter Type: Initial Mechanism of Injury: Fall, pain, alcohol intoxication ORDERING SYSTEM PROVIDED DIAGNOSIS CODES: COMPARISON: None. FINDINGS: Three views of the right elbow and 3 views of the left hand were obtained. RIGHT ELBOW: No acute fracture or dislocation is seen. The joint spaces are preserved. There is no significant right elbow joint effusion. LEFT HAND: There is a mildly displaced oblique fracture through the 4th metacarpal pjreuskr-tc-zyxjapnn with suspected intraarticular extension to the 4th carpometacarpal joint. IMPRESSION: 1. No acute fracture or dislocation of the right elbow is seen. If pain persists, repeat radiographs are recommended in 7 to 10 days. 2. Mildly displaced oblique fracture through the left 4th metacarpal pmcispgf-ct-sabqhscu with suspected intraarticular extension to the 4th carpometacarpal joint. [facility]/[employer] Workstation ID: [id number] Dictated by: ROCKY GRANADOS on WedApr 24, 2022 1:23:35 AM EDT Transcribed by: CRISTY BATISTA on WedApr 24, 2022 1:30:38 AM EDT Finalized by: ROCKY GRANADOS on WedApr 24, 2022 1:49:50 AM EDT [facility] Comment on above: Order Comment: Injur y/Trauma or Illness?:Injury/Trauma How long have you had these symptoms (acute/chronic)?:Acute Reason for exam?:pain History of cancer?: Surgeries, chemotherapy, or radiation?: Type of Exam?:Initial Mechanism of injury?:Alcohol Intoxication XR RIBS BILATERAL 3 VIEWSon 04-24-2022 XR RIBS BILATERAL 3 VIEWS EXAMINATION: XR RIBS BILATERAL 3 VIEWS 04/24/2022 4:13 AM HISTORY: ORDERING SYSTEM PROVIDED HISTORY: Pain, TECHNOLOGIST PROVIDED HISTORY: Injury/Trauma Reason for Exam: Fall/alcohol intoxication Cancer History: Surgery, Radiation History: Encounter Type: Initial Mechanism of Injury: Fall ORDERING SYSTEM PROVIDED DIAGNOSIS CODES: S62.324A Closed displaced fracture of shaft of fourth metacarpal bone of right hand, initial encounter F10.929 Alcoholic intoxication with complication (HCC) F10.10 Alcohol abuse COMPARISON: Rib radiographs dated 10/20/2021. FINDINGS: Frontal and oblique views of the bilateral ribs were obtained. There is a remote nonunited fracture through the posterior right 10th rib. There is a remote fracture of the posterior right 9th rib. No acute rib fracture is seen. The cardiac silhouette is normal in size. The lungs are clear. IMPRESSION: 1. No acute fracture of the ribs is seen. 2. 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 [employer] [facility]/[employer] Workstation ID: [id number] Dictated by: ROCKY GRANADOS on WedApr 24, 2022 5:12:39 AM EDT Transcribed by: CRISTY BATISTA on WedApr 24, 2022 5:14:38 AM EDT Finalized by: ROCKY GRANADOS on WedApr 24, 2022 5:15:29 AM EDT [facility] Comment on above: Order Comment: Injur y/Trauma or Illness?:Injury/Trauma How long have you had these symptoms (acute/chronic)?:Acute Reason for exam?:fall / alcohol intoxication History of cancer?: Surgeries, chemotherapy, or radiation?: Type of Exam?:Initial Mechanism of injury?:fall ACETAMINOPHEN LEVELon 2022 Acetaminophen [Mass/Vol] ug/mL Low 10.0-20.0 [facility] Comment on above: Result Comment: Note : B-nbsrci-j-benzoquinone imine (metabolite of acetaminophen) will generate erroneously low lipase and uric acid results in samples for patients that have taken toxic doses of acetaminophen. Interpret with caution. ALCOHOL (ETHANOL),BLOODon Serum Alcohol 59 mg/dL High <=10 [facility] Serum Alcohol 123 mg/dL High <=10 [facility] BASIC METABOLIC PANELon Calcium [Mass/Vol] 9.3 mg/dL Normal 8.6-10.3 [facility] Chloride [Moles/Vol] 108 mmol/L High 98-107 [facility] CO[facility] [Moles/Vol] 23 mmol/L Normal 23-29 [facility] Creatinine [Mass/Vol] 1.11 mg/dL Normal 0.70-1.30 [facility] GFR/1.73 sq M.predicted among non-blacks MDRD (S/P/Bld) [Vol rate/Area] 87 mL/min/{1.73_m2} Normal >=60 [facility] Comment on above: Result Comment: Repo rted eGFR is based on the CKD-EPI 2020 equation using creatinine, age, and sex. Glucose [Mass/Vol] 96 mg/dL Normal 70-105 [facility] Osmolality [Osmolality] 291 mosm/kg Normal 280-300 [facility] Potassium [Moles/Vol] 4.0 mmol/L Normal 3.5-5.1 [facility] Sodium [Moles/Vol] 140 mmol/L Normal 136-145 [facility] Urea nitrogen [Mass/Vol] 15 mg/dL Normal 6-20 [facility] Urea nitrogen/Creatinine [Mass ratio] 14 mg/mg Normal 6-26 [facility] CBC AND ELECTRONIC DIFFon Basophils (Bld) [#/Vol] 0.0 10*3/uL Normal 0.0-0.2 [facility] Basophils/100 WBC (Bld) 0.5 % Normal [facility] Eosinophils (Bld) [#/Vol] 0.2 10*3/uL Normal 0.0-0.6 [facility] Eosinophils/100 WBC (Bld) 2.1 % Normal [facility] [place] Hematocrit (Bld) [Volume fraction] 46.8 % Normal 37.5-50.1 [facility] [place] Hemoglobin (Bld) [Mass/Vol] 16.0 g/dL Normal 12.9-16.9 [facility] Immature Grans % 0.3 % Normal [facility] [place] Lymphocytes (Bld) [#/Vol] 2.6 10*3/uL Normal 0.6-4.6 [facility] [place] Lymphocytes/100 WBC (Bld) 34.4 % Normal [facility] [place] MCV (RBC) [Entitic vol] 86.3 fL Normal 83.0-100.0 [facility] Mean Cell Hgb 29.5 pg Normal 28.0-33.0 [facility] Mean Cell Hgb Conc 34.2 g/dL Normal 31.6-35.5 [facility] [place] Monocytes (Bld) [#/Vol] 0.6 10*3/uL Normal 0.0-1.3 [facility] Monocytes/100 WBC (Bld) 8.4 % Normal [facility] [place] Nucleated RBC 0 /100 WBC Normal [facility] [place] Platelet mean volume (Bld) [Entitic vol] 8.3 fL Low 9.4-12.4 [facility] Platelets (Bld) [#/Vol] 308 10*3/uL Normal 140-400 [facility] RBC (Bld) [#/Vol] 5.42 10*6/uL Normal 4.19-5.50 [facility] [place] RBC Distribution 13.9 % Normal 11.5-14.5 [facility] Segs + Bands Auto 54.3 % Normal [facility] [place] Segs + Bands,Absolute Auto 4.1 K/uL Normal 1.6-8.9 [facility] WBC (Bld) [#/Vol] 7.5 10*3/uL Normal 4.3-11.1 [facility] HEMOGLOBIN A1Con 04-10-2022 Glucose [Mass/Vol] 111 mg/dL Normal [facility] Comment on above: Result Comment: Shi mated glucose calculated using (28.7 x HGBA1C) - 46.7 HbA1c (Bld) [Mass fraction] 5.5 % Normal <5.7 [facility] Comment on above: Result Comment: ADA Recommendations: Normal........ less than 5.7% Prediabetes... 5.7% to 6.4% Diabetes...... 6.5% or higher Glycemic Goal (known diabetics): < 8%...... Less stringent < 7%...... General (non- adults) < 6.5%.... More stringent HEPATIC FUNCTION PANELon Albumin [Mass/Vol] 4.8 g/dL Normal 3.5-5.7 [facility] Albumin/Globulin [Mass ratio] 1.6 {ratio} Normal 1.1-2.2 [facility] ALP [Catalytic activity/Vol] 88 U/L Normal 34-104 [facility] ALT [Catalytic activity/Vol] 62 U/L High 7-52 [facility] AST [Catalytic activity/Vol] 26 U/L Normal 13-39 [facility] Bilirubin [Mass/Vol] 0.4 mg/dL Normal 0.3-1.0 [facility] Bilirubin, Indirect 0.4 mg/dL Normal 0.0-1.0 [facility] Bilirubin.indirect [Mass/Vol] 0.0 mg/dL Normal <=0.2 [facility] Globulin (S) [Mass/Vol] 3.0 g/dL Normal 2.4-3.5 [facility] Protein [Mass/Vol] 7.8 g/dL Normal 6.4-8.9 [facility] LIPID PANEL W CALCULATED LDL on 04-10-2022 Calculated LDL Cholesterol 88 mg/dL Normal <100 [facility] Cholesterol [Mass/Vol] 163 mg/dL Normal <200 [facility] Cholesterol in HDL [Mass/Vol] 33 mg/dL Low 40-59 [facility] Comment on above: Result Comment: Plea se evaluate HDL levels in context with other risk factors. (AHA Guidelines.2017) Tot Chol/HDL 4.9 Normal 0.0-4.9 [facility] Triglyceride [Mass/Vol] 210 mg/dL High <150 [facility] VLDL Cholesterol, Calculated 42 mg/dL High <31 [facility] SALICYLATE LEVELon Salicylate <2.5 Low 15.0-30.0 [facility] TSHon 04-10-2022 TSH, High Sensitivity 1.457 uIU/mL Normal 0.340-5.600 [facility] ALCOHOL (ETHANOL),BLOODon Serum Alcohol 160 mg/dL High <=10 [facility] BASIC METABOLIC PANELon Calcium [Mass/Vol] 8.5 mg/dL Low 8.6-10.3 [facility] Chloride [Moles/Vol] 107 mmol/L Normal 98-107 [facility] CO2 [Moles/Vol] 24 mmol/L Normal 23-29 [facility] Creatinine [Mass/Vol] 0.97 mg/dL Normal 0.70-1.30 [facility] eGFR, CKD-EPI, Male > Normal >=60 [facility] Comment on above: Result Comment: Repo rted eGFR is based on the CKD-EPI 2020 equation using creatinine, age, and sex. Glucose [Mass/Vol] 88 mg/dL Normal 70-105 [facility] Osmolality [Osmolality] 286 mosm/kg Normal 280-300 [facility] Potassium [Moles/Vol] 3.8 mmol/L Normal 3.5-5.1 [facility] Sodium [Moles/Vol] 138 mmol/L Normal 136-145 [facility] Urea nitrogen [Mass/Vol] 13 mg/dL Normal 6-20 [facility] [place] Urea nitrogen/Creatinine [Mass ratio] 13 mg/mg Normal 6-26 [facility] [place] CBC AND ELECTRONIC DIFFon Basophils (Bld) [#/Vol] 0.0 10*3/uL Normal 0.0-0.2 [facility] [place] Basophils/100 WBC (Bld) 0.5 % Normal [facility] [place] Eosinophils (Bld) [#/Vol] 0.4 10*3/uL Normal 0.0-0.6 [facility] [place] Eosinophils/100 WBC (Bld) 5.7 % Normal [facility] Hematocrit (Bld) [Volume fraction] 44.3 % Normal 37.5-50.1 [facility] Hemoglobin (Bld) [Mass/Vol] 15.5 g/dL Normal 12.9-16.9 [facility] Immature Grans % 0.3 % Normal [facility] Lymphocytes (Bld) [#/Vol] 2.3 10*3/uL Normal 0.6-4.6 [facility] Lymphocytes/100 WBC (Bld) 35.5 % Normal [facility] MCV (RBC) [Entitic vol] 83.9 fL Normal 83.0-100.0 [facility] Mean Cell Hgb 29.4 pg Normal 28.0-33.0 [facility] Mean Cell Hgb Conc 35.0 g/dL Normal 31.6-35.5 [facility] Monocytes (Bld) [#/Vol] 0.6 10*3/uL Normal 0.0-1.3 [facility] Monocytes/100 WBC (Bld) 8.5 % Normal [facility] Nucleated RBC 0 /100 WBC Normal [facility] Platelet mean volume (Bld) [Entitic vol] 8.4 fL Low 9.4-12.4 [facility] Platelets (Bld) [#/Vol] 265 10*3/uL Normal 140-400 [facility] RBC (Bld) [#/Vol] 5.28 10*6/uL Normal 4.19-5.50 [facility] [place] RBC Distribution 13.5 % Normal 11.5-14.5 [facility] Segs + Bands Auto 49.5 % Normal [facility] [place] Segs + Bands,Absolute Auto 3.2 K/uL Normal 1.6-8.9 [facility] WBC (Bld) [#/Vol] 6.5 10*3/uL Normal 4.3-11.1 [facility] CBC,PLATELETSon 03-19-2022 Hematocrit (Bld) [Volume fraction] 42.4 % Normal 37.5-50.1 [facility] Hemoglobin (Bld) [Mass/Vol] 14.8 g/dL Normal 12.9-16.9 [facility] MCV (RBC) [Entitic vol] 83.0 fL Normal 83.0-100.0 [facility] Mean Cell Hgb 29.0 pg Normal 28.0-33.0 [facility] Mean Cell Hgb Conc 34.9 g/dL Normal 31.6-35.5 [facility] [place] Platelet mean volume (Bld) [Entitic vol] 8.4 fL Low 9.4-12.4 [facility] Platelets (Bld) [#/Vol] 265 10*3/uL Normal 140-400 [facility] RBC (Bld) [#/Vol] 5.11 10*6/uL Normal 4.19-5.50 [facility] [place] RBC Distribution 13.7 % Normal 11.5-14.5 [facility] WBC (Bld) [#/Vol] 7.5 10*3/uL Normal 4.3-11.1 [facility] [place] COMPREHENSIVE METABOLIC PANE Dilip 03-19-2022 Albumin [Mass/Vol] 4.4 g/dL Normal 3.5-5.7 [facility] Albumin/Globulin [Mass ratio] 1.6 {ratio} Normal 1.1-2.2 [facility] ALP [Catalytic activity/Vol] 86 U/L Normal 34-104 [facility] ALT [Catalytic activity/Vol] 79 U/L High 7-52 [facility] [place] AST [Catalytic activity/Vol] 33 U/L Normal 13-39 [facility] [place] Bilirubin [Mass/Vol] 0.3 mg/dL Normal 0.3-1.0 [facility] Calcium [Mass/Vol] 9.0 mg/dL Normal 8.6-10.3 [facility] Chloride [Moles/Vol] 108 mmol/L High 98-107 [facility] CO2 [Moles/Vol] 24 mmol/L Normal 23-29 [facility] Creatinine [Mass/Vol] 1.01 mg/dL Normal 0.70-1.30 [facility] eGFR, CKD-EPI, Male > Normal >=60 [facility] Comment on above: Result Comment: Repo rted eGFR is based on the CKD-EPI 2020 equation using creatinine, age, and sex. Globulin (S) [Mass/Vol] 2.8 g/dL Normal 2.4-3.5 [facility] Glucose [Mass/Vol] 104 mg/dL Normal 70-105 [facility] Osmolality [Osmolality] 290 mosm/kg Normal 280-300 [facility] Potassium [Moles/Vol] 4.1 mmol/L Normal 3.5-5.1 [facility] Protein [Mass/Vol] 7.2 g/dL Normal 6.4-8.9 [facility] Sodium [Moles/Vol] 140 mmol/L Normal 136-145 [facility] [place] Urea nitrogen [Mass/Vol] 13 mg/dL Normal 6-20 [facility] Urea nitrogen/Creatinine [Mass ratio] 13 mg/mg Normal 6-26 [facility] DRUGS OF ABUSE PROFILE, URIN Ariel 03-19-2022 Amphetamine/Methamphe tamine Negative Normal Negative [facility] [place] Barbiturates Negative Normal Negative [facility] [place] Benzodiazepines Negative Normal Negative [facility] [place] Buprenorphine Negative Normal Negative [facility] [place] Cannabinoids Screen Ql (U) Negative Normal Negative [facility] [place] Cocaine Negative Normal Negative [facility] [place] Opiates Negative Normal Negative [facility] [place] Phencyclidine Negative Normal Negative [facility] [place] ECGon 03-19-[address] [place] [address] Test Date: 2022-03-18 Pat Name: MCKINLEY ROMAN Department: EXAM10 Room: [facility] Gender: M 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[id number] Requested By: ANGELITA Todd Order Number: [id number] Reading MD: Percy Kent Measurements Intervals [place] Rate: 67 P: 42 OR: 159 QRS: 55 QRSD: 102 T: 37 QT: 403 QTc: 426 Interpretive Statements Sinus rhythm Electronically Signed On 03-19-2022 20:45:03 EST by Percy Kent [facility] [place] HEPATITIS A, B, Con 03-19-19 23 Hep B Core IgM Ab Non-Reactive Normal Non-Reactive [facility] Comment on above: Result Comment: IgM antibodies to Hepatitis B Core Antigen not detected. Does not exclude the possibility of exposure or infection with Hepatitis B Core Virus. Assay performance characteristics have not been established for immunocompromised or immunosuppressed patients, cord blood, or patients less than 2 years of age. Hepatitis A IgM Ab Non-Reactive Normal Non-Reactive [facility] Comment on above: Result Comment: Hepa titis A Virus (HAV) IgM antibodies not detected. Does not exclude the possibility of exposure to or infection of HAV. Levels of HAV IgM antibodies may be below measurement range due to early infection. Biotin greater than 500 ng/mL may lead to falsely depressed results. Hepatitis Bs Antigen Non-Reactive Normal Non-reactive [facility] Comment on above: Result Comment: Spec imen considered negative for HBsAg. Hepatitis C Antibody Non-Reactive Normal Non-Reactive [facility] [place] HIV 1 AND 2 ANTIBODIESon HIV-1/HIV-2 AB WITH P24 ANTIGEN Non-Reactive Normal Non-reactive [facility] Comment on above: Order Comment: This assay detects human immunodeficiency virus (HIV) p24 antigen and antibodies to HIV type 1 (HIV-1 group O) and/or type 2 (HIV-2). Reactive results will have follow up confirmatory testing. MAGNESIUMon 03-19-2022 Magnesium [Mass/Vol] 1.9 mg/dL Normal 1.6-2.6 [facility] RESPIRATORY PANEL (COVID, [place] U, RSV)on 03-19-2022 Influenza A PCR Negative Normal Negative [facility] Comment on above: Order Comment: Note: This [employer] Xpert Xpress SARS-CoV-2/Flu/RSV nucleic acid test has not been FDA cleared or approved.? This test has been authorized by FDA under an Emergency Use Authorization (EUA).? This test is only authorized for the duration of time the declaration that circumstances exist justifying the authorization of the emergency use of in vitro diagnostic tests for the detection of SARS-CoV-2 virus and/or diagnosis of COVID-19 infection under section 564(b)(1) of the Act, 21 U.S.C. 360bbb-3(b)(1), unless the authorization is terminated or revoked sooner.Fact Sheet for Healthcare Providers:? https://www.fda.gov/media/129177/download?Fact Sheet for Patients:?http s://www.[employer]gov/media/855499/download Influenza B - Pcr Negative Normal Negative [facility] Comment on above: Order Comment: Note: This [employer] Xpert Xpress SARS-CoV-2/Flu/RSV nucleic acid test has not been FDA cleared or approved.? This test has been authorized by FDA under an Emergency Use Authorization (EUA).? This test is only authorized for the duration of time the declaration that circumstances exist justifying the authorization of the emergency use of in vitro diagnostic tests for the detection of SARS-CoV-2 virus and/or diagnosis of COVID-19 infection under section 564(b)(1) of the Act, 21 U.S.C. 360bbb-3(b)(1), unless the authorization is terminated or revoked sooner.Fact Sheet for Healthcare Providers:? https://www.[employer]gov/[employer]/053511/download?Fact Sheet for Patients:?http s://www.[employer]gov/media/651016/download RSV - PCR Negative Normal Negative [facility] Comment on above: Order Comment: Note: This [employer] Xpert Xpress SARS-CoV-2/Flu/RSV nucleic acid test has not been FDA cleared or approved.? This test has been authorized by FDA under an Emergency Use Authorization (EUA).? This test is only authorized for the duration of time the declaration that circumstances exist justifying the authorization of the emergency use of in vitro diagnostic tests for the detection of SARS-CoV-2 virus and/or diagnosis of COVID-19 infection under section 564(b)(1) of the Act, 21 U.S.C. 360bbb-3(b)(1), unless the authorization is terminated or revoked sooner.Fact Sheet for Healthcare Providers:? https://www.[employer]gov/media/054512/download?Fact Sheet for Patients:?http s://www.[employer]gov/media/774168/download SARS-CoV-2 (COVID-19) RNA KARIN+probe Ql (Unsp spec) Negative Normal NEGATIVE [facility] Comment on above: Order Comment: Note: This We Xpert Xpress SARS-CoV-2/Flu/RSV nucleic acid test has not been FDA cleared or approved.? This test has been authorized by FDA under an Emergency Use Authorization (EUA).? This test is only authorized for the duration of time the declaration that circumstances exist justifying the authorization of the emergency use of in vitro diagnostic tests for the detection of SARS-CoV-2 virus and/or diagnosis of COVID-19 infection under section 564(b)(1) of the Act, 21 U.S.C. 360bbb-3(b)(1), unless the authorization is terminated or revoked sooner.Fact Sheet for Healthcare Providers:? https://www.[employer]gov/media/674857/download?Fact Sheet for Patients:?http s://www.[employer]gov/media/768681/download Result Comment: Nega tive results do not preclude SARS-CoV-2 infection and should not be used as the sole basis for treatment or other patient management decisions.? Negative results must be combined with clinical observations, patient history, and epidemiological information. URINE DIPSTICK; REFLEX MICRO SCOPY; REFLEX CULTURE PERFORMABLEon 03-19-2022 Appearance (U) Clear Normal Clear [facility] Bilirubin Ql (U) Negative Normal Negative [facility] Blood Urine Negative Normal Negative [facility] Color (U) Light Yellow Normal Yellow [facility] Glucose Ql (U) Normal Normal Normal [facility] Ketones Ql (U) Negative Normal Negative [facility] Leukocyte esterase Test strip Ql (U) Negative Normal Negative [facility] Nitrites Urine Negative Normal Negative [facility] pH Urine 7.0 pH Units Normal 5.0-8.0 [facility] Protein Urine Negative Normal Negative-Tra ce [facility] Specific [place] Urine 1.014 Normal 1.010-1.025 [facility] Urobilinogen Urine Normal Normal Normal [facility] [place] Acetaminophen [Moles/Vol]on 12-04-2021 Acetaminophen [Mass/Vol] NINF [employer] [facility] identified Screen Nom (U)on 12-04-2021 Amphetamines Ql (U) Not detected Not Detected [facility] [employer] Barbiturates Screen Ql (U) Not detected Not Detected [employer] Benzodiazepines Ql (U) Not detected Not Detected [employer] Cannabinoids Screen Ql (U) Not detected Not Detected [employer] Cocaine Ql (U) Not detected Not Detected [facility] Interpretation and review of laboratory results Normal [employer] Methadone Screen Ql (U) Not detected Not Detected [employer] Opiates Screen Ql (U) Not detected Not Detected [employer] oxyCODONE Ql (U) Not detected Not Detected [facility] The following detect ion limits are used for the urine drugs of abuse: Amphetamine 1000 ng/mL Barbiturate 200 ng/mL Benzodiazepine 200 ng/mL Cannabinoids 50 ng/mL Cocaine 300 ng/mL Methadone 300 ng/mL Opiates 300 ng/mL Oxycodone 100 ng/mL Testing is for screening purposes only and should not be used in non-medical determinations. Confirmatory testing is available on request. [employer] Amphetamine Screen, Ur Not detected Normal Not Detected [facility] Comment on above: Order Comment: The f ollowing detection limits are used for the urine drugs of abuse: Amphetamine 1000 ng/mL Barbiturate 200 ng/mL Benzodiazepine 200 ng/mL Cannabinoids 50 ng/mL Cocaine 300 ng/mL Methadone 300 ng/mL Opiates 300 ng/mL Oxycodone 100 ng/mL Testing is for screening purposes only and should not be used in non-medical determinations. Confirmatory testing is available on request. Performed By: #### 1 2286-1 #### [facility] [address] [place] [address] Barbiturate Screen, Ur Not detected Normal Not Detected [facility] Comment on above: Order Comment: The f ollowing detection limits are used for the urine drugs of abuse: Amphetamine 1000 ng/mL Barbiturate 200 ng/mL Benzodiazepine 200 ng/mL Cannabinoids 50 ng/mL Cocaine 300 ng/mL Methadone 300 ng/mL Opiates 300 ng/mL Oxycodone 100 ng/mL Testing is for screening purposes only and should not be used in non-medical determinations. Confirmatory testing is available on request. Performed By: #### 1 2286-1 #### [facility] [address] [place] [address] Benzodiazepine Screen, Ur Not detected Normal Not Detected [facility] Comment on above: Order Comment: The f ollowing detection limits are used for the urine drugs of abuse: Amphetamine 1000 ng/mL Barbiturate 200 ng/mL Benzodiazepine 200 ng/mL Cannabinoids 50 ng/mL Cocaine 300 ng/mL Methadone 300 ng/mL Opiates 300 ng/mL Oxycodone 100 ng/mL Testing is for screening purposes only and should not be used in non-medical determinations. Confirmatory testing is available on request. Performed By: #### 1 2286-1 #### [facility] [address] [place] [address] Cannabinoid (THC) Screen, Ur Not detected Normal Not Detected [facility] Comment on above: Order Comment: The f ollowing detection limits are used for the urine drugs of abuse: Amphetamine 1000 ng/mL Barbiturate 200 ng/mL Benzodiazepine 200 ng/mL Cannabinoids 50 ng/mL Cocaine 300 ng/mL Methadone 300 ng/mL Opiates 300 ng/mL Oxycodone 100 ng/mL Testing is for screening purposes only and should not be used in non-medical determinations. Confirmatory testing is available on request. Performed By: #### 1 2286-1 #### [facility] [address] [place] [address] Cocaine Screen, Ur Not detected Normal Not Detected [facility] Comment on above: Order Comment: The f ollowing detection limits are used for the urine drugs of abuse: Amphetamine 1000 ng/mL Barbiturate 200 ng/mL Benzodiazepine 200 ng/mL Cannabinoids 50 ng/mL Cocaine 300 ng/mL Methadone 300 ng/mL Opiates 300 ng/mL Oxycodone 100 ng/mL Testing is for screening purposes only and should not be used in non-medical determinations. Confirmatory testing is available on request. Performed By: #### 1 2286-1 #### [facility] [address] [place] [address] Methadone Screen, Urine Not detected Normal Not Detected [facility] Comment on above: Order Comment: The f ollowing detection limits are used for the urine drugs of abuse: Amphetamine 1000 ng/mL Barbiturate 200 ng/mL Benzodiazepine 200 ng/mL Cannabinoids 50 ng/mL Cocaine 300 ng/mL Methadone 300 ng/mL Opiates 300 ng/mL Oxycodone 100 ng/mL Testing is for screening purposes only and should not be used in non-medical determinations. Confirmatory testing is available on request. Performed By: #### 1 2286-1 #### [facility] [address] [place] [address] Opiate Screen, Ur Not detected Normal Not Detected [facility] Comment on above: Order Comment: The f ollowing detection limits are used for the urine drugs of abuse: Amphetamine 1000 ng/mL Barbiturate 200 ng/mL Benzodiazepine 200 ng/mL Cannabinoids 50 ng/mL Cocaine 300 ng/mL Methadone 300 ng/mL Opiates 300 ng/mL Oxycodone 100 ng/mL Testing is for screening purposes only and should not be used in non-medical determinations. Confirmatory testing is available on request. Performed By: #### 1 2286-1 #### [facility] [address] [place] [address] Oxycodone Screen, Ur Not detected Normal Not Detected [facility] Comment on above: Order Comment: The f ollowing detection limits are used for the urine drugs of abuse: Amphetamine 1000 ng/mL Barbiturate 200 ng/mL Benzodiazepine 200 ng/mL Cannabinoids 50 ng/mL Cocaine 300 ng/mL Methadone 300 ng/mL Opiates 300 ng/mL Oxycodone 100 ng/mL Testing is for screening purposes only and should not be used in non-medical determinations. Confirmatory testing is available on request. Performed By: #### 1 2286-1 #### [facility] [address] [place] [address] Ethanol (Bld) [Moles/Vol]on 12-04-2021 Ethanol Level <10 Normal <[address] [facility] Comment on above: Performed By: #### 1 2286-1 #### [facility] [address] [place] [address] Ethanol [Mass/Vol] mg/dL NINF - 10 mg/dL [facility] Interpretation and review of laboratory results Normal [facility] Ma urine culture tubeon Specimen source Nom (Unsp spec) Hold for add-ons. [facility] Comment on above: Auto resulted. [facility] No Panel Informationon 12-04 Interpretation and review of laboratory results Normal [facility] Nuclear IgG IA Ql (S)on 11-09 Bilirubin, Urine Negative Normal Negative [facility] Comment on above: Performed By: #### 2 4321-2 #### [facility] [address] [place] [address] Blood, Urine Negative Normal Negative [facility] Comment on above: Performed By: #### 2 4321-2 #### [facility] [address] [place] [address] Clarity (U) Clear Normal Clear [facility] Comment on above: Performed By: #### 2 4321-2 #### [facility] [address] [place] [address] Color (U) Straw Abnormal Yellow [facility] Comment on above: Performed By: #### 2 4321-2 #### [facility] [address] [place] [address] Glucose Ql (U) Normal Normal Normal [facility] Comment on above: Performed By: #### 2 4321-2 #### [facility] [address] [place] [address] Ketones Ql (U) Negative Normal Negative [facility] Comment on above: Performed By: #### 2 4321-2 #### [facility] [address] [place] [address] Leukocytes, Urine Negative Normal Negative [facility] Comment on above: Performed By: #### 2 4321-2 #### [facility] [address] [place] [address] Nitrite, Urine Negative Normal Negative [facility] Comment on above: Performed By: #### 2 4321-2 #### [facility] [address] [place] [address] pH (U) 6.0 [pH] Normal 5.0-8.0 [facility] Comment on above: Performed By: #### 2 4321-2 #### [facility] [address] [place] [address] Protein, Urine Negative Normal Negative [facility] Comment on above: Performed By: #### 2 4321-2 #### [facility] [address] [place] [address] Specific [place] Urine 1.008 Normal 1.002-1.030 [facility] Comment on above: Performed By: #### 2 4321-2 #### [facility] [address] [place] [address] Urobilinogen, Urine Normal Normal Normal [facility] Comment on above: Performed By: #### 2 4321-2 #### [facility] [address] [place] [address] Bilirubin Ql (U) Negative Negative mg/dL [employer] Clarity (U) Clear Clear [employer] Color (U) Straw Abnormal Yellow [facility] Glucose Ql (U) Normal Normal mg/dL [employer] Hemoglobin Ql (U) Negative Negative [employer] Interpretation and review of laboratory results Abnormal [employer] Ketones (U) [Mass/Vol] Negative Negative mg/dL [facility] Leukocyte esterase Test strip Ql (U) Negative Negative WBCs/mcL [facility] Nitrite Ql (U) Negative Negative [facility] pH (U) 6.0 [pH] 5.0 - 8.0 pH [facility] Protein (U) [Mass/Vol] Negative Negative mg/dL [facility] Specific gravity (U) [Rel density] 1.008 1.002 - 1.030 [facility] Urobilinogen (U) [Mass/Vol] Normal Normal mg/dL [facility] Salicylates [Moles/Vol]on Salicylates [Mass/Vol] mg/dL 2.8 - 30.0 mg/dL [facility] CT ABDOMEN PELVIS WO CONTRAS Ton 12-03-2021 CT ABDOMEN PELVIS WO CONTRAST EXAMINATION TYPE: CT ABDOMEN PELVIS WO CONTRAST DATE OF EXAM : 12/03/2021 7:30 PM HISTORY: Abdominal pain, vomiting, chills COMPARISON: Multiple, most recent dated 04/06/2021 FINDINGS: Mild hepatic steatosis. Small fatty sparing adjacent to the gallbladder. No biliary ductal dilatation or evidence of cholecystitis. Adrenal glands, spleen, and pancreas are unremarkable. No hydronephrosis or ureteral dilatation. No urinary calculi identified. Small exophytic cyst at the upper left renal pole. Bladder is unremarkable. Prostate gland and seminal vesicles are unremarkable. No bowel obstruction. Unremarkable appendix. No acute vascular findings on this noncontrast study. No pathologically enlarged lymph nodes identified. Tiny fat-containing umbilical and left inguinal hernias. Subacute right posterior 9th and 10th rib fractures. Mild elevation of the right hemidiaphragm again shown. No acute findings in the visualized mediastinum. IMPRESSION: 1. Mild hepatic steatosis. 2. Subacute right 9th and 10th rib fractures. 3. Tiny fat-containing umbilical and left inguinal hernias. 4. Small left renal cyst. -------- FINAL REPORT -------- Dictated By: Ezequiel Madison Dictated Date: 12/03/2021 20:13 Assigned Physician: Ezequiel Madison Reviewed and Electronically Signed By: Ezequiel Madison Signed Date: 12/03/2021 20:21 Workstation ID: [id number] Transcribed By: Self Edit Transcribed Date: 12/03/2021 20:13 Normal [facility] CT Pelvis limited WO contras ton 12-03-2021 1. Mild hepatic steatosis. 2. Subacute right 9th and 10th rib fractures. 3. Tiny fat-containing umbilical and left inguinal hernias. 4. Small left renal cyst. -------- FINAL REPORT -------- Dictated By: Ezequiel Madison Dictated Date: 12/03/2021 20:13 Assigned Physician: Ezequiel Madison Reviewed and Electronically Signed By: Ezequiel Madison Signed Date: 12/03/2021 20:21 Workstation ID: [id number] Transcribed By: Self Edit Transcribed Date: 12/03/2021 20:13 POWERSCRIBE EXAMINATION TYPE: CT ABDOMEN PELVIS WO CONTRAST DATE OF EXAM : 12/03/2021 7:30 PM HISTORY: Abdominal pain, vomiting, chills COMPARISON: Multiple, most recent dated 04/06/2021 FINDINGS: Mild hepatic steatosis. Small fatty sparing adjacent to the gallbladder. No biliary ductal dilatation or evidence of cholecystitis. Adrenal glands, spleen, and pancreas are unremarkable. No hydronephrosis or ureteral dilatation. No urinary calculi identified. Small exophytic cyst at the upper left renal pole. Bladder is unremarkable. Prostate gland and seminal vesicles are unremarkable. No bowel obstruction. Unremarkable appendix. No acute vascular findings on this noncontrast study. No pathologically enlarged lymph nodes identified. Tiny fat-containing umbilical and left inguinal hernias. Subacute right posterior 9th and 10th rib fractures. Mild elevation of the right hemidiaphragm again shown. No acute findings in the visualized mediastinum. POWERSCRIBE Ezequiel Madison MD - 12/03/2021 EXAMINATION TYPE: CT ABDOMEN PELVIS WO CONTRAST DATE OF EXAM : 12/03/2021 7:30 PM HISTORY: Abdominal pain, vomiting, chills COMPARISON: Multiple, most recent dated 04/06/2021 FINDINGS: Mild hepatic steatosis. Small fatty sparing adjacent to the gallbladder. No biliary ductal dilatation or evidence of cholecystitis. Adrenal glands, spleen, and pancreas are unremarkable. No hydronephrosis or ureteral dilatation. No urinary calculi identified. Small exophytic cyst at the upper left renal pole. Bladder is unremarkable. Prostate gland and seminal vesicles are unremarkable. No bowel obstruction. Unremarkable appendix. No acute vascular findings on this noncontrast study. No pathologically enlarged lymph nodes identified. Tiny fat-containing umbilical and left inguinal hernias. Subacute right posterior 9th and 10th rib fractures. Mild elevation of the right hemidiaphragm again shown. No acute findings in the visualized mediastinum. IMPRESSION: 1. Mild hepatic steatosis. 2. Subacute right 9th and 10th rib fractures. 3. Tiny fat-containing umbilical and left inguinal hernias. 4. Small left renal cyst. -------- FINAL REPORT -------- Dictated By: Ezequiel Madison Dictated Date: 12/03/2021 20:13 Assigned Physician: Ezequiel Madison Reviewed and Electronically Signed By: Ezequiel Madison Signed Date: 12/03/2021 20:21 Workstation ID: [id number] Transcribed By: Self Edit Transcribed Date: 12/03/2021 20:13 [facility] Radiology Study observation (narrative) [facility] CT Pelvis limited WO contras tOrdered By: Ezequiel Madison on 12-03-2021 [facility] Work Phone: Comprehensive metabolic 2000 panelon 12-03-2021 Lipase [Catalytic activity/Vol] 27 U/L Normal 11-82 [facility] Comment on above: Performed By: #### 2 4321-2 #### [facility] [address] [place] [address] Albumin [Mass/Vol] 4.3 g/dL 3.5 - 4.8 g/dL [facility] ALP [Catalytic activity/Vol] 80 U/L [facility] ALT [Catalytic activity/Vol] 67 U/L High [facility] Anion gap [Moles/Vol] 12 mmol/L 6 - 18 [facility] AST [Catalytic activity/Vol] 31 U/L [facility] Bilirubin [Mass/Vol] 0.4 mg/dL 0.3 - 1 .2 mg/dL [facility] Calcium [Mass/Vol] 8.9 mg/dL 8.9 - 10. 3 mg/dL [facility] Chloride [Moles/Vol] 104 mmol/L 98 - 10 7 mmol/L [facility] CO2 [Moles/Vol] 22 mmol/L 22 - 32 mmol/L [facility] Creatinine [Mass/Vol] 1.02 mg/dL 0.60 - 1.30 mg/dL [facility] GFR/1.73 sq M.predicted MDRD (S/P/Bld) [Vol rate/Area] 97 mL/min/{1.73_m2} - PINF [facility] Comment on above: Effective November 16, 2021, calculation based on the Chronic Kidney Disease Epidemiology Collaboration (CKD-EPI) equation refit without adjustment for race. Glucose [Mass/Vol] 105 mg/dL High 70 - 99 mg/dL [facility] Interpretation and review of laboratory results Abnormal [facility] Potassium [Moles/Vol] 4.4 mmol/L 3.6 - 5.1 mmol/L [facility] Protein [Mass/Vol] 7.3 g/dL 6.1 - 7.9 g/dL [facility] Sodium [Moles/Vol] 138 mmol/L 136 - 145 mmol/L [facility] Urea nitrogen [Mass/Vol] 19 mg/dL 8 - 20 mg/dL [facility] Urea nitrogen/Creatinine [Mass ratio] 18.6 mg/mg 12.0 - 20.0 [facility] Hemogram and platelets WO di fferential panel (Bld)on 12-03-2021 Basophils (Bld) [#/Vol] 0.04 10*3/uL Normal 0.00-0.20 [facility] Comment on above: Performed By: #### 2 4321-2 #### [facility] [address] [place] [address] Basophils/100 WBC (Bld) 0.3 % Normal 0.0-2.0 [facility] Comment on above: Performed By: #### 2 4321-2 #### [facility] [address] [place] [address] Eosinophils (Bld) [#/Vol] 0.15 10*3/uL Normal 0.00-0.70 [facility] Comment on above: Performed By: #### 2 4321-2 #### [facility] [address] [place] [address] Eosinophils/100 WBC (Bld) 1.1 % Normal 0.0-7.0 [facility] Comment on above: Performed By: #### 2 4321-2 #### [facility] [address] [place] [address] Erythrocyte distribution width (RBC) [Ratio] 12.8 % Normal 11.0-14.8 [facility] Comment on above: Performed By: #### 2 4321-2 #### [facility] [address] [place] [address] Hematocrit (Bld) [Volume fraction] 46.1 % Normal 39.0-49.0 [facility] Comment on above: Performed By: #### 2 4321-2 #### [facility] [address] [place] [address] Hemoglobin (Bld) [Mass/Vol] 16.3 g/dL Normal 13.5-17.5 [facility] Comment on above: Performed By: #### 2 4321-2 #### [facility] [address] [place] [address] Immature granulocytes (Bld) [#/Vol] 0.04 10*3/uL Normal [facility] Comment on above: Performed By: #### 2 4321-2 #### [facility] [address] [place] [address] Immature granulocytes/100 WBC (Bld) 0.3 % Normal 0.0-1.2 [facility] Comment on above: Performed By: #### 2 4321-2 #### [facility] [address] [place] [address] Lymphocytes (Bld) [#/Vol] 0.74 10*3/uL Low 1.00-4.80 [facility] Comment on above: Performed By: #### 2 4321-2 #### [facility] [address] [place] [address] Lymphocytes/100 WBC (Bld) 5.3 % Low 17.9-49.6 [facility] Comment on above: Performed By: #### 2 4321-2 #### [facility] [address] [place] [address] MCH 29.6 pcg Normal 27.0-34.0 [facility] Comment on above: Performed By: #### 2 4321-2 #### [facility] [address] [place] [address] MCHC (RBC) [Mass/Vol] 35.4 g/dL High 30.8-35.3 [facility] Comment on above: Performed By: #### 2 4321-2 #### [facility] [address] [place] [address] MCV (RBC) [Entitic vol] 83.8 fL Normal 80.0-97.0 [facility] Comment on above: Performed By: #### 2 4321-2 #### [facility] [address] [place] [address] Monocytes (Bld) [#/Vol] 0.96 10*3/uL High 0.00-0.90 [facility] Comment on above: Performed By: #### 2 4321-2 #### [facility] [address] [place] [address] Monocytes/100 WBC (Bld) 6.8 % Normal 0.0-12.0 [facility] Comment on above: Performed By: #### 2 4321-2 #### [facility] [address] [place] [address] Neutrophils Absolute 12.11 K/mcL High 1.80-7.70 [facility] Comment on above: Performed By: #### 2 4321-2 #### [facility] [address] [place] [address] Neutrophils/100 WBC (Bld) 86.2 % High 38.1-75.5 [facility] Comment on above: Performed By: #### 2 4321-2 #### [facility] [address] [place] [address] Platelet mean volume (Bld) [Entitic vol] 8.4 fL Normal 6.2-12.1 [facility] Comment on above: Performed By: #### 2 4321-2 #### [facility] [address] [place] [address] Platelets (Bld) [#/Vol] 303 10*3/uL Normal 142-424 [facility] Comment on above: Performed By: #### 2 4321-2 #### [facility] [address] [place] [address] RBC (Bld) [#/Vol] 5.50 10*6/uL Normal 4.30-5.70 [facility] Comment on above: Performed By: #### 2 4321-2 #### [facility] [address] [place] [address] WBC (Bld) [#/Vol] 14.0 10*3/uL High 4.6-10.2 [facility] Comment on above: Performed By: #### 2 4321-2 #### [facility] [address] [place] [address] Basophils (Bld) [#/Vol] 0.04 10*3/uL [facility] Basophils/100 WBC (Bld) 0.3 % 0.0 - 2.0 % [facility] Eosinophils (Bld) [#/Vol] 0.15 10*3/uL [facility] Eosinophils/100 WBC (Bld) 1.1 % 0.0 - 7.0 % [facility] Erythrocyte distribution width (RBC) [Ratio] 12.8 % 11.0 - 14.8 % [facility] Hematocrit (Bld) [Volume fraction] 46.1 % 39.0 - 49.0 % [facility] Hemoglobin (Bld) [Mass/Vol] 16.3 g/dL 13.5 - 17.5 g/dL [facility] Immature granulocytes (Bld) [#/Vol] 0.04 10*3/uL K/mcL [facility] Immature granulocytes/100 WBC (Bld) 0.3 % 0.0 - 1.2 % [facility] Interpretation and review of laboratory results Abnormal [facility] Lymphocytes (Bld) [#/Vol] 0.74 10*3/uL Low [facility] Lymphocytes/100 WBC (Bld) 5.3 % Low 17.9 - 49.6 % [facility] MCH (RBC) [Entitic mass] 29.6 pg [facility] MCHC (RBC) [Mass/Vol] 35.4 g/dL High 30.8 - 35.3 g/dL [facility] MCV (RBC) [Entitic vol] 83.8 fL [facility] Monocytes (Bld) [#/Vol] 0.96 10*3/uL High [facility] Monocytes/100 WBC (Bld) 6.8 % 0.0 - 12.0 % [facility] Neutrophils (Bld) [#/Vol] 12.11 10*3/uL High [facility] Neutrophils/100 WBC (Bld) 86.2 % High 38.1 - 75.5 % [facility] Platelet mean volume (Bld) [Entitic vol] 8.4 fL [facility] Platelets (Bld) [#/Vol] 303 10*3/uL [facility] RBC (Bld) [#/Vol] 5.50 10*6/uL [facility] WBC (Bld) [#/Vol] 14.0 10*3/uL High [facility] Lipaseon 12-03-2021 Lipase [Catalytic activity/Vol] 27 U/L [facility] Lipase [Catalytic activity/V ol]on 12-03-2021 Interpretation and review of laboratory results Normal [facility] No Panel Informationon 12-03 [facility] SARS-CoV-2 (COVID-19) RNA NA A+probe Ql (Resp)on 12-03-2021 Interpretation and review of laboratory results Normal [facility] SARS-CoV-2 (COVID-19) RdRp gene KARIN+probe Ql (Resp) Not detected Not Detected [facility] SARS-CoV-2 RNA Resp Ql KARIN+p robeon 12-03-2021 SARS-CoV-2 (COVID-19) RNA KARIN+probe Ql (Resp) Not detected Normal Not Detected [facility] Comment on above: Performed By: #### 2 4321-2 #### [facility] [address] [place] [address] Salicylates [Moles/Vol]on Acetaminophen Level <10.0 Normal <=30.0 [facility] Comment on above: Performed By: #### 2 4321-2 #### [facility] [address] [place] [address] ALCOHOL (ETHANOL),BLOODOrder ed By: Ariella Luna on 10-28-2021 Ethanol Ql (Bld) 213 mg/dL High <10 [facility] Interpretation and review of laboratory results [facility] MINT GREEN TOP TUBEon 2021 [facility] XR RIBS BILATERAL 3 VIEWSon 10-20-2021 XR RIBS BILATERAL 3 VIEWS EXAMINATION: XR RIBS BILATERAL 3 VIEWS: HISTORY: Fall. COMPARISON: Chest x-ray, 10/15/2021. TECHNIQUE: AP chest with five views of the ribs FINDINGS: The heart, mediastinum and pulmonary vascularity are within normal limits. No pleural effusion or pneumothorax is seen. The lungs and pleural spaces appear clear. There are partially healed fractures involving the right posterior 9th and 10th ribs. The ribs appear otherwise intact bilaterally. IMPRESSION: 1. Partial incomplete healing involving fractures of the right posterior 9th and 10th ribs. The bilateral ribs appear otherwise intact. 2. No acute cardiopulmonary disease. Workstation ID: [id number] Dictated by: JUAN MIGUEL GÓMEZ on WedOct 20, 2021 2:55:57 AM EDT Transcribed by: JUAN MIGUEL GÓMEZ on WedOct 20, 2021 2:55:57 AM EDT Finalized by: JUAN MIGUEL GÓMEZ on WedOct 20, 2021 2:55:57 AM EDT [facility] Comment on above: Order Comment: Injur y/Trauma or Illness?:Injury/Trauma How long have you had these symptoms (acute/chronic)?:Acute Reason for exam?:fall bilat rib pain History of cancer?: Surgeries, chemotherapy, or radiation?: Type of Exam?:Initial Mechanism of injury?: XR CHEST PA/APon 10-15-2021 XR CHEST PA/AP EXAMINATION: XR CHEST PA/AP HISTORY: CP chest pain COMPARISON: 10/15/2021 TECHNIQUE: View(s) of the chest is/are submitted. FINDINGS: There is no acute airspace diseaseThe cardiac silhouette is normal. The costophrenic recesses are sharp. No pneumothorax. The bony elements are unremarkable. IMPRESSION: No acute cardiopulmonary process. Workstation ID: [id number] Dictated by: CYNDIE JOSEPH on WedOct 15, 2021 1:43:07 AM EDT Transcribed by: CYNDIE JOSEPH on WedOct 15, 2021 1:43:07 AM EDT Finalized by: CYNDIE JOSEPH on WedOct 15, 2021 1:43:07 AM EDT Normal [facility] Comment on above: Order Comment: Injur y/Trauma or Illness?:Illness/Other How long have you had these symptoms (acute/chronic)?:Acute Reason for exam?:Alcohol Problem History of cancer?: Surgeries, chemotherapy, or radiation?: Type of Exam?:Initial Additional signs and symptoms?:Alcohol Problem CBC w/o Diffon 09-20-2021 Erythrocyte distribution width (RBC) [Ratio] 14.4 % Normal 11.0-15.0 [facility] Comment on above: Performed By: #### 3 [id number], [id number], [id number] ####[facility] [address] [place] [address] Hematocrit (Bld) [Volume fraction] 44.1 % Normal 42.0-52.0 [facility] Comment on above: Performed By: #### 3 1960219, 1043597, [id number] ####[facility] [address] [place] [address] Hemoglobin (Bld) [Mass/Vol] 15.3 g/dL Normal 14.0-18.0 [facility] Comment on above: Performed By: #### 3 7794775, 7276335, [id number] ####[facility] [address] [place] [address] MCH (RBC) [Entitic mass] 29.7 pg Normal 27.0-31.0 [facility] Comment on above: Performed By: #### 3 1408959, 4350722, [id number] ####[facility] [address] [place] [address] MCHC (RBC) [Mass/Vol] 34.7 g/dL Normal 32.0-36.0 [facility] Comment on above: Performed By: #### 3 1439248, 5133152, [id number] ####[facility] [address] [place] [address] MCV (RBC) [Entitic vol] 85.5 fL Normal 80.0-100.0 [facility] Comment on above: Performed By: #### 3 7309881, 0977389, [id number] ####[facility] [address] [place] [address] Platelets 260 x1000 Normal 144-420 [facility] Comment on above: Performed By: #### 3 7550229, 8787158, [id number] ####[facility] [address] [place] [address] RBC 5.15 million Normal 4.70-6.10 [facility] Comment on above: Performed By: #### 3 0957070, 0355288, [id number] ####[facility] [address] [place] [address] WBC 6.7 x1000 Normal 4.8-10.8 [facility] Comment on above: Performed By: #### 3 7806465, 0788008, [id number] ####[facility] [address] [place] [address] CMPon 09-20-2021 Calcium [Mass/Vol] 8.9 mg/dL Invalid Interpretation Code [facility] Comment on above: Result Comment: Resu lt created by discern rule: GL_CORR_CALCIUM_CALC Performed By: #### 3 5263668, 3165956, [id number] ####[facility] [address] [place] [address] Albumin [Mass/Vol] 3.6 g/dL Normal 3.4-5.0 [facility] Comment on above: Performed By: #### 3 4485307, 6916806, [id number] ####[facility] [address] [place] [address] Albumin/Globulin [Mass ratio] 1.09 {ratio} Low 1.20-1.80 [facility] Comment on above: Performed By: #### 3 6117924, 3579658, [id number] ####[facility] [address] [place] [address] Alk Phos 91 unit/L Normal 45-117 [facility] Comment on above: Performed By: #### 3 0639228, 9834736, [id number] ####[facility] [address] [place] [address] ALT [Catalytic activity/Vol] 32 U/L Normal 12-78 [facility] Comment on above: Performed By: #### 3 6631632, 6083571, [id number] ####[facility] [address] [place] [address] Anion gap [Moles/Vol] 9 mmol/L Normal 5-15 [facility] Comment on above: Performed By: #### 3 3358978, 5041734, [id number] ####[facility] [address] [place] [address] AST [Catalytic activity/Vol] 19 U/L Normal 15-37 [facility] Comment on above: Performed By: #### 3 4020510, 9899051, [id number] ####[facility] [address] [place] [address] Bilirubin [Mass/Vol] 0.6 mg/dL Normal 0.2-1.0 [facility] Comment on above: Performed By: #### 3 4634971, 8698465, [id number] ####[facility] [address] [place] [address] Calcium [Mass/Vol] 8.6 mg/dL Normal 8.5-10.1 [facility] Comment on above: Performed By: #### 3 5891143, 0103717, [id number] ####[facility] [address] [place] [address] Chloride [Moles/Vol] 109 mmol/L High 98-107 [facility] Comment on above: Performed By: #### 3 0511216, 8583174, [id number] ####[facility] [address] [place] [address] CO2 [Moles/Vol] 24 mmol/L Normal 21-32 [facility] Comment on above: Performed By: #### 3 9204994, 5734809, [id number] ####[facility] [address] [place] [address] Creatinine [Mass/Vol] 1.07 mg/dL Normal 0.60-1.30 [facility] Comment on above: Performed By: #### 3 9741275, 5590001, [id number] ####[facility] [address] [place] [address] Globulin (S) [Mass/Vol] 3.3 g/dL Normal 1.4-4.7 [facility] Comment on above: Performed By: #### 3 8877036, 9868384, [id number] ####[facility] [address] [place] [address] Glucose [Mass/Vol] 108 mg/dL High 74-106 [facility] Comment on above: Performed By: #### 3 6358632, 2780709, [id number] ####[facility] [address] [place] [address] Potassium [Moles/Vol] 3.6 mmol/L Normal 3.5-5.1 [facility] Comment on above: Performed By: #### 3 3506922, 6283167, [id number] ####[facility] [address] [place] [address] Protein [Mass/Vol] 6.9 g/dL Normal 6.4-8.2 [facility] Comment on above: Performed By: #### 3 8739791, 6133794, [id number] ####[facility] [address] [place] [address] Sodium [Moles/Vol] 138 mmol/L Normal 136-145 [facility] Comment on above: Performed By: #### 3 3168011, 5915807, [id number] ####[facility] [address] [place] [address] Urea nitrogen [Mass/Vol] 15 mg/dL Normal 7-18 [facility] Comment on above: Performed By: #### 3 9829151, 0958258, [id number] ####[facility] [address] [place] [address] Inpatient Clinical Summaryon 09-20-2021 Inpatient Clinical Summary Clinical Summary Clinical Discharge Instructions Person Information Name: MCKINLEY ROMAN Sex: Male : 1985, Age: 36 Years Race: White Ethnicity: Not , , or Maori Origin Preferred Language: Palestinian [facility]: [id number] Address and Phone: [phone] [facility] [phone], Care Team Primary Care Physician: [facility], Physician Admitting Physician: MD Richard Matthew D Attending Physician: MD Richard Matthew D Primary Nurse: Maci Allergy: No Known Allergies Discharge Information Discharge Diagnosis: 1:Alcohol abuse; 2:Abnormal behavior; 3:Major depression; 4:Tobacco use; Alcohol abuse with withdrawal Discharge Orders Discharge Activity Restrictions No Restrictions Discharge Diet Instruction Resume home diet Discharge Disposition 09/20/21 9:12:00 EDT, Home Independently Discharge Patient 09/20/21 9:12:00 EDT, Home Independently PSO Admit to Inpatient PCU, Medicine-General, MD Richard Matthew D, 09/19/21 9:42:00 EDT Request for Admit PCU, Telemetry, MD Richard Matthew D, 09/19/21 6:50:00 EDT, 09/19/21 6:50:00 EDT Assessment and Plan ........................ ........................ ........................ ........................ ........................ ........................ ........... Cut out, fold, and keep for additional/future provider appointments Medications During the course of your visit, your medication list was updated with the most current information. The details of those changes are reflected below: New Medications Last Dose Taken Next Dose Due Special Instructions multivitamin (Therapeutic Multiple Vitamins oral tablet) :1 tab Oral (given by mouth) every day for 30 Days. Refills: 0. 09/20/21 09:56 am thiamine (thiamine 100 mg oral tablet) :1 tab Oral (given by mouth) every day for 30 Days. Refills: 0. 09/20/21 09:56 am Medications to Continue That Have Changed Last Dose Taken Next Dose Due Special Instructions Medications to Continue with No Changes Last Dose Taken Next Dose Due Special Instructions loratadine (Claritin) :5 Milligrams Oral (given by mouth) every day. 09/20/21 09:56 am naltrexone (Vivitrol) :380 Milligrams Intramuscular (in a muscle) every 4 weeks. No Longer Take the Following Medications Last Dose Taken Cut out, fold, and keep for additional/future provider appointments ........................ ........................ ........................ ........................ ........................ ........................ ........... Vital Signs Height/Length Measured: 180 cm Weight Measured: 106.3 kg Blood Pressure: Not Valued/67 mmHg Blood Pressure Invasive: Not Valued/Not Valued Blood Pressure Sitting: Not Valued/Not Valued Blood Pressure Standing: / Blood Pressure Supine: Not Valued/Not Valued Blood Pressure with Activity: /Not Valued Body Mass Index (BMI): 32.72 kg/m2 Follow-Up and Patient Education Instruction Information Instructions Alcohol Abuse and Nutrition Follow-Up With: Address: When: No Family Doctor, Physician, Specialty-Internal Medicine ( ) - 0 Within 1 to 2 weeks Future Appointments No Future Appointments Scheduled Discharge Arrangments Additional Instructions: Date:09/20/2021 10:53:08 Normal [facility] Inpatient Patient Summaryon 09-20-2021 Inpatient Patient Summary [place] [address] Patient Discharge Instructions, Orders and Medications Name: MCKINLEY ROMAN : 1985 Patient Address: [address] [place] [id number] Patient Discharge Time: Discharged To: Home independently Primary Care Provider Name:No Family Doctor, Physician Phone:( ) - 0 Attending Physician: MD Jose Manuel, [place] Consulting Physician: Allergy:No Known Allergies Immunizations Provided:Immunizations No Immunizations Documented This Visit Discharge Diagnosis:1:Alcohol abuse; 2:Abnormal behavior; 3:Major depression; 4:Tobacco use; Alcohol abuse with withdrawal Most Recent Vital Signs: Discharge Orders Discharge Activity Restrictions No Restrictions Discharge Diet Instruction Resume home diet Discharge Disposition 09/20/21 9:12:00 EDT, Home Independently Future Laboratory Orders (if any) Future Radiology Orders (if any) ........................ ........................ ........................ ........................ ........................ ........................ ........... Cut out, fold, and keep for additional/future provider appointments Medications During the course of your visit, your medication list was updated with the most current information. The details of those changes are reflected below: New Medications Last Dose Taken Next Dose Due Special Instructions multivitamin (Therapeutic Multiple Vitamins oral tablet) :1 tab Oral (given by mouth) every day for 30 Days. Refills: 0. 09/20/21 09:56 am thiamine (thiamine 100 mg oral tablet) :1 tab Oral (given by mouth) every day for 30 Days. Refills: 0. 09/20/21 09:56 am Medications to Continue That Have Changed Last Dose Taken Next Dose Due Special Instructions Medications to Continue with No Changes Last Dose Taken Next Dose Due Special Instructions loratadine (Claritin) :5 Milligrams Oral (given by mouth) every day. 09/20/21 09:56 am naltrexone (Vivitrol) :380 Milligrams Intramuscular (in a muscle) every 4 weeks. No Longer Take the Following Medications Last Dose Taken Cut out, fold, and keep for additional/future provider appointments ........................ ........................ ........................ ........................ ........................ ........................ ........... MCKINLEY ROMAN has been given the following list of follow-up instructions, prescriptions, and patient education materials: Follow-up appointments: With: Address: When: No Family Doctor, Physician, Specialty-Internal Medicine ( ) - 0 Within 1 to 2 weeks Future Appointments No Future Appointments Scheduled Patient home medications returned to patient?: N/A Does patient currently have transdermal patch applied?: No Discharge Arrangements: Medication leaflets, if any, will display below: Patient education materials, if any, will display below: Alcohol Abuse and Nutrition Alcohol abuse is any pattern of alcohol consumption that harms your health, relationships, or work. Alcohol abuse can cause poor nutrition (malnutrition or malnourishment) and a lack of nutrients (nutrient deficiencies), which can lead to more health problems. Alcohol abuse brings malnutrition and nutrient deficiencies in two ways: ?? It causes your liver to work abnormally. This affects how your body divides (breaks down) and absorbs nutrients from food. ?? It causes you to eat poorly. Many people who abuse alcohol do not eat enough carbohydrates, protein, fat, vitamins, and minerals. Nutrients that are commonly lacking (deficient) in people who abuse alcohol include: ?? Vitamins. ? Vitamin A. This is needed for your vision, metabolism, and ability to fight off infections (immunity). ? B vitamins. These include folate, thiamine, and niacin. These are needed for new cell growth. ? Vitamin C. This plays an important role in wound healing, immunity, and helping your body to absorb iron. ? Vitamin D. This is necessary for your body to absorb and use calcium. It is produced by your liver, but you can also get it from food and from sun exposure. ?? Minerals. ? Calcium. This is needed for healthy bones as well as heart and blood vessel (cardiovascular) function. ? Iron. This is important for blood, muscle, and nervous system functioning. ? Magnesium. This plays an important role in muscle and nerve function, and it helps to control blood sugar and blood pressure. ? Zinc. This is important for the normal functioning of your nervous system and digestive system (gastrointestinal tract). If you think that you have an alcohol dependency problem, or if it is hard to stop drinking because you feel sick or different when you do not use alcohol, talk with your health care provider or another health professional about where to get help. Nutrition is an essential factor in (more content not included)... Normal [facility] eGFRon 09-20-2021 eGFR AA >60 Invalid Interpretation Code [facility] Comment on above: Result Comment: AfAm = UNITS=mL/min/1.73 m2 Normal Reference Ranges is >60. Persistent reduction of eGFR (<60) for 3 months or more defines chronic kidney disease, while eGFR <15 indicates renal failure. Patients with eGFR values >= 60 may also have CKD if evidence of persistent proteinuria is present. Performed By: #### 3 [id number], 0600943, [id number] ####[facility] [address] [place] [address] eGFR Non-AA >60 Invalid Interpretation Code [facility] Comment on above: Result Comment: Norm al Reference Range is >60. Performed By: #### 3 [id number], 4002527, [id number] ####[facility] [address] [place] [address] Actmon 09-19-2021 Acetaminophen Level <2.0 Low 10.0-30.[address] [facility] Comment on above: Performed By: #### 2 278918, 5583345, 89968935, 76959438, 66075484, 4730025, 0863026, 7764744, 5762474497, 5127379, 8542701 ####[facility] [address] [place] [address] Auto Diffon 09-19-2021 Baso Absolute 0.0 x1000 Invalid Interpretation Code [facility] Comment on above: Order Comment: Order added by GL_CBC_AUTO. Performed By: #### 2 346013, 9815966, 54842148, 50490262, 53446433, 2099309, 3824002, 3382075, 5264090491, 3292803, 1375652 ####[facility] [address] [place] [address] Basophils/100 WBC (Bld) 0.7 % Normal 0.0-3.0 [facility] Comment on above: Order Comment: Order added by GL_CBC_AUTO. Performed By: #### 2 181425, 8594537, 46489129, 62833248, 27216115, 3085251, 3757330, 1014198, 4344423684, 3456626, 9893966 ####[facility] [address] [place] [address] Eos Absolute 0.2 x1000 Invalid Interpretation Code [facility] Comment on above: Order Comment: Order added by GL_CBC_AUTO. Performed By: #### 2 145169, 1329772, 56855200, 13942729, 39255951, 6302948, 1177120, 2057411, 0552605298, 3321507, 3778982 ####[facility] [address] [place] [address] Eosinophils/100 WBC (Bld) 2.5 % Normal 0.0-6.0 [facility] Comment on above: Order Comment: Order added by GL_CBC_AUTO. Performed By: #### 2 381800, 0910643, 11221032, 95313498, 30734828, 5147043, 7199040, 1498288, 5082228992, 8261886, 8716839 ####[facility] [address] [place] [address] Lymph Absolute 2.5 x1000 Invalid Interpretation Code [facility] Comment on above: Order Comment: Order added by GL_CBC_AUTO. Performed By: #### 2 057302, 5721377, 48948577, 90231487, 38461655, 4884820, 2954884, 2550704, 4902814300, 0718413, 8115424 ####[facility] [address] [place] [address] Lymphocytes/100 WBC (Bld) 34.7 % Normal 14.0-47.0 [facility] Comment on above: Order Comment: Order added by GL_CBC_AUTO. Performed By: #### 2 164340, 8601914, 28555422, 38348941, 52046900, 7574747, 6233232, 0959113, 3955645161, 0097790, 5694555 ####[facility] [address] [place] [address] Huerf[place] Absolute 0.7 x1000 Invalid Interpretation Code [facility] Comment on above: Order Comment: Order added by GL_CBC_AUTO. Performed By: #### 2 583248, 2959997, 14961648, 36646427, 46731262, 2695052, 3351579, 1046971, 2255082491, 5810711, 5612258 ####[facility] [address] [place] [address] Monocytes/100 WBC (Bld) 9.4 % Normal 0.0-10.0 [facility] Comment on above: Order Comment: Order added by GL_CBC_AUTO. Performed By: #### 2 184960, 1590295, 34889859, 02252130, 18380936, 1587806, 9225674, 2378174, 7709722912, 9341490, 3175014 ####[facility] [address] [place] [address] Neutro Absolute 3.7 x1000 Invalid Interpretation Code [facility] Comment on above: Order Comment: Order added by GL_CBC_AUTO. Performed By: #### 2 404945, 1344553, 51909967, 17155335, 35168718, 8116892, 7580138, 1461692, 8325741401, 4075948, 8600318 ####[facility] [address] [place] [address] Neutro Auto 52.7 % Normal 43.0-77.0 [facility] Comment on above: Order Comment: Order added by GL_CBC_AUTO. Performed By: #### 2 256877, 1377738, 42676770, 25015554, 18080151, 7435233, 0066908, 9451088, 4385486454, 2714579, 6039411 ####[facility] [address] [place] [address] NRBC % 0.2 % Invalid Interpretation Code [facility] Comment on above: Order Comment: Order added by GL_CBC_AUTO. Performed By: #### 2 471781, 1262418, 47201761, 65047981, 59869419, 7438434, 0411375, 4395146, 9532273795, 3389527, 7241019 ####[facility] [address] [place] [address] BMPon 09-19-2021 Calcium [Mass/Vol] 8.8 mg/dL Invalid Interpretation Code [facility] Comment on above: Result Comment: Resu lt created by discern rule: GL_CORR_CALCIUM_CALC Performed By: #### 2 536263, 8803885, 59248417, 00081301, 57671517, 3427300, 7501461, 7628737, 7323180723, 4131967, 0482923 ####[facility] [address] [place] [address] Anion gap [Moles/Vol] 10 mmol/L Normal 5-15 [facility] Comment on above: Performed By: #### 2 794018, 5153902, 28771085, 59315963, 58712082, 7148773, 4366486, 7193604, 5662532353, 0439238, 0183298 ####[facility] [address] [place] [address] Calcium [Mass/Vol] 8.8 mg/dL Normal 8.5-10.1 [facility] Comment on above: Performed By: #### 2 582554, 4363386, 68322205, 90200962, 05965990, 9840986, 4677561, 9755920, 4835900942, 6351309, 5403291 ####[facility] [address] [place] [address] Chloride [Moles/Vol] 113 mmol/L High 98-107 [facility] Comment on above: Performed By: #### 2 152897, 8117237, 51649993, 67423150, 99070425, 7391425, 0242384, 8418684, 4887190907, 4384316, 0730500 ####[facility] [address] [place] [address] CO2 [Moles/Vol] 22 mmol/L Normal 21-32 [facility] Comment on above: Performed By: #### 2 038954, 4653550, 50122225, 93957479, 58559877, 0797270, 0127933, 3234171, 1715756869, 0301397, 1610977 ####[facility] [address] [place] [address] Creatinine [Mass/Vol] 1.11 mg/dL Normal 0.60-1.30 [facility] Comment on above: Performed By: #### 2 674220, 9341032, 51939585, 56460922, 92040325, 3051588, 2406215, 2485289, 6923892448, 1972103, 0737725 ####[facility] [address] [place] [address] Glucose [Mass/Vol] 116 mg/dL High 74-106 [facility] Comment on above: Performed By: #### 2 270106, 4027384, 50078587, 58433714, 24244220, 6205560, 1954589, 1934385, 9948628064, 8482402, 9995313 ####[facility] [address] [place] [address] Potassium [Moles/Vol] 3.5 mmol/L Normal 3.5-5.1 [facility] Comment on above: Performed By: #### 2 966641, 7267955, 89538402, 24848853, 12525479, 3501976, 9578225, 4749851, 3958397490, 9960804, 1029936 ####[facility] [address] [place] [address] Sodium [Moles/Vol] 141 mmol/L Normal 136-145 [facility] Comment on above: Performed By: #### 2 801109, 2743617, 52527749, 99293572, 20746818, 4581309, 7699262, 8374248, 4456641462, 7463424, 9528617 ####[facility] [address] [place] [address] Urea nitrogen [Mass/Vol] 16 mg/dL Normal 7-18 [facility] Comment on above: Performed By: #### 2 341530, 7326097, 56143893, 88958537, 13770593, 3625763, 9646574, 0888046, 9386501778, 4903117, 6461812 ####[facility] [address] [place] [address] CBC w/ Diffon 09-19-2021 Erythrocyte distribution width (RBC) [Ratio] 14.3 % Normal 11.0-15.0 [facility] Comment on above: Performed By: #### 2 646781, 4235623, 08004551, 43590730, 06370880, 0792074, 0357677, 2250072, 1502865141, 9320987, 2981070 ####[facility] [address] [place] [address] Hematocrit (Bld) [Volume fraction] 46.8 % Normal 42.0-52.0 [facility] Comment on above: Performed By: #### 2 243187, 1672598, 47626779, 96262497, 85317772, 3821786, 9321340, 7111152, 4188576561, 6876594, 0495572 ####[facility] [address] [place] [address] Hemoglobin (Bld) [Mass/Vol] 16.1 g/dL Normal 14.0-18.0 [facility] Comment on above: Performed By: #### 2 177633, 6153586, 55098086, 87612671, 66767116, 0225777, 4559083, 0017595, 3127460186, 2264307, 8287124 ####[facility] [address] [place] [address] MCH (RBC) [Entitic mass] 29.2 pg Normal 27.0-31.0 [facility] Comment on above: Performed By: #### 2 613938, 3930985, 86718621, 40788177, 79724524, 6720839, 3922972, 7329758, 4776207485, 1280502, 9287971 ####[facility] [address] [place] [address] MCHC (RBC) [Mass/Vol] 34.4 g/dL Normal 32.0-36.0 [facility] Comment on above: Performed By: #### 2 788349, 2415886, 15908974, 24579530, 31964654, 3633412, 3511933, 5138167, 9427320356, 4188372, 3869837 ####[facility] [address] [place] [address] MCV (RBC) [Entitic vol] 85.0 fL Normal 80.0-100.0 [facility] Comment on above: Performed By: #### 2 165844, 8330199, 22416780, 78436642, 06529701, 2569194, 4115040, 5509978, 5367510908, 6027786, 4649454 ####[facility] [address] [place] [address] Platelets 304 x1000 Normal 144-420 [facility] Comment on above: Performed By: #### 2 274033, 5563197, 20741392, 66898777, 89789868, 3586949, 0436192, 5882942, 9370500859, 8505314, 1067502 ####[facility] [address] [place] [address] RBC 5.51 million Normal 4.70-6.10 [facility] Comment on above: Performed By: #### 2 769841, 1355203, 06136416, 27880627, 31281028, 9733797, 1431754, 2835206, 5116502971, 4809211, 1579726 ####[facility] [address] [place] [address] WBC 7.1 x1000 Normal 4.8-10.8 [facility] Comment on above: Performed By: #### 2 061692, 8508479, 83142946, 92725174, 49872304, 3824611, 9706297, 9370548, 6486758124, 4529393, 1221916 ####[facility] [address] [place] [address] CKon 09-19-2021 CK [Catalytic activity/Vol] 159 U/L Normal 39-308 [facility] Comment on above: Performed By: #### 2 177138, 9249633, 88231783, 96473119, 60342895, 8131013, 8302819, 4461317, 6119311881, 0224673, 6912080 ####[facility] [address] [place] [address] COVID Agon 09-19-2021 SARS Ag Negative Normal [facility] Comment on above: Result Comment: This test was performed under the FDA??s Emergency Use Authorization (EUA). Testing was performed using the Caroline SARS Antigen FREDI utilizing a lateral flow immunofluorescent assay for the qualitative detection of the nucleocapsid protein antigen from SARS-CoV-2. This test has been approved for use from individuals suspected of Covid-19 by their healthcare provider. Fact sheets for this EUA can be found at the following links: For Healthcare Providers: https://www.fda.gov/media/165103/download For Patients: https://www.fda.gov/media/600085/download Performed By: #### 3 [id number] ####[facility] [address] [place] [address] CT Brain/Head w/o Contraston 09-19-2021 CT Brain/Head w/o Contrast EXAMINATION: CT OF THE HEAD WITHOUT CONTRAST 09/19/2021 2:43 am TECHNIQUE: CT of the head was performed without the administration of intravenous contrast. Automated exposure control, iterative reconstruction, and/or weight based adjustment of the mA/kV was utilized to reduce the radiation dose to as low as reasonably achievable. COMPARISON: None. HISTORY: ORDERING SYSTEM PROVIDED HISTORY: Altered level of consciousness TECHNOLOGIST PROVIDED HISTORY: Tech Provided Reason for Exam: altered LOC Type of Encounter: Initial Relevant Medical/Surgical History: AMS Acuity: acute FINDINGS: BRAIN/VENTRICLES: There is no acute intracranial hemorrhage, mass effect or midline shift. No abnormal extra-axial fluid collection. The ma-white differentiation is maintained without evidence of an acute infarct. There is no evidence of hydrocephalus. ORBITS: The visualized portion of the orbits demonstrate no acute abnormality. SINUSES: The visualized paranasal sinuses and mastoid air cells demonstrate no acute abnormality. SOFT TISSUES/SKULL: No acute abnormality of the visualized skull or soft tissues. IMPRESSION: No acute intracranial abnormality. Ordering Provider: Carin Vides Final Dictated by: MD Noriega William Dictated DT/TM: 09/19/2021 3:05 am Signed by: MD Noriega William B Signed (Electronic Signature): 09/19/2021 3:05 am Normal [facility] DOAon 09-19-2021 Amphetamine Screen Ur Negative Invalid Interpretation Code Negative [facility] Comment on above: Performed By: #### 3 [id number] ####[facility] [address] [place] [address] Barbituate Screen Ur Negative Invalid Interpretation Code Negative [facility] Comment on above: Performed By: #### 3 3327232 ####[facility] [address] [place] [address] Benzodiazepines Ur Negative Invalid Interpretation Code Negative [facility] Comment on above: Performed By: #### 3 2116526 ####[facility] [address] [place] [address] Cannabinoid Screen Ur Negative Invalid Interpretation Code Negative [facility] Comment on above: Result Comment: Test ing performed without Bvfrz-ba-Jpytwng. Legal defensibility is compromised without a Yuhzq-du-Ahdruqi. Suggest resubmission of specimen if legal defensibility is desired. All positive results are unconfirmed. Since false positive results are known to occur, contact the Laboratory for confirmation testing if indicated. Cut-Off Values Amphetamines- Negative <1000 ng/mL Barbiturates- Negative <200 ng/mL Benzodiazepines- Negative <200 ng/mL Cocaine (Metabolite)- Negative <300 ng/mL Opiates- Negative <300 ng/mL PCP- Negative <25 ng/mL Cannabinoids (THC)- Negative <50 ng/mL Performed By: #### 3 [id number] ####[facility] [address] [place] [address] Cocaine Screen Ur Negative Invalid Interpretation Code Negative [facility] Comment on above: Performed By: #### 3 1883704 ####[facility] [address] [place] [address] Opiate Screen Ur Negative Invalid Interpretation Code Negative [facility] Comment on above: Performed By: #### 3 1155799 ####[facility] [address] [place] [address] Ur PCP Scrn Negative Invalid Interpretation Code Negative [facility] Comment on above: Performed By: #### 3 [id number] ####[facility] [address] [place] [address] ED Clinical Summaryon 2021 ED Clinical Summary [facility] [address] [place], [address] Fax: [phone] PERSON INFORMATION Name: MCKINLEY ROMAN Age: 36 Years : 1985 Sex: Male Language: Palestinian PCP: No Family Doctor, Physician Marital Status: Single Med Service: Emergency Medicine Arrival: 09/19/2021 02:02:14 Visit Reason: AMS (altered mental status); AMS Acuity: 2 LOS: 000 07:40 Address: [address] [place] [id number] Diagnosis: Abnormal behavior; Alcohol abuse with withdrawal; Major depression Medications Administered: Medication Dose Route haloperidol (Haldol) 10 mg IM LORazepam (Ativan) 2 mg IM sodium chloride 0.9% 1,000 mL 1000 mL Initial Volume 50 mL/hr IV infusion Left Antecubital Adrian diazePAM 5 mg Oral diazePAM 10 mg Oral cyclobenzaprine (Flexeril) 10 mg Oral Radiology Orders: Laboratory Orders: Lab and Rad: Laboratory or Other Results This Visit (last charted value for your 09/19/2021 visit) Hematology 09/19/2021 2:31 AM WBC: 7.1 x1000 -- Normal range between ( 4.8 and 10.8 ) RBC: 5.51 million -- Normal range between ( 4.70 and 6.10 ) Neutro Auto: 52.7 % -- Normal range between ( 43.0 and 77.0 ) Lymph Auto: 34.7 % -- Normal range between ( 14.0 and 47.0 ) [place] Auto: 9.4 % -- Normal range between ( 0.0 and 10.0 ) Basophil Auto: 0.7 % -- Normal range between ( 0.0 and 3.0 ) Baso Absolute: 0.0 x1000 MCV: 85.0 fL -- Normal range between ( 80.0 and 100.0 ) MCHC: 34.4 g/dL -- Normal range between ( 32.0 and 36.0 ) Lymph Absolute: 2.5 x1000 Hct: 46.8 % -- Normal range between ( 42.0 and 52.0 ) [place] Absolute: 0.7 x1000 MCH: 29.2 pg -- Normal range between ( 27.0 and 31.0 ) Neutro Absolute: 3.7 x1000 Hgb: 16.1 g/dL -- Normal range between ( 14.0 and 18.0 ) Platelets: 304 x1000 -- Normal range between ( 144 and 420 ) Eos Absolute: 0.2 x1000 RDW: 14.3 % -- Normal range between ( 11.0 and 15.0 ) Eos, Auto: 2.5 % -- Normal range between ( 0.0 and 6.0 ) NRBC %: 0.2 % Urinalysis 09/19/2021 6:02 AM UA Color: Yellow UA Urobilinogen: Normal UA Bili: Negative UA Ketones: Negative UA Leuk Est: Negative UA Nitrite: Negative UA Glucose: Negative UA Protein: Negative UA Blood: Negative UA Spec Grav: 1.022 -- Normal range between ( 1.002 and 1.035 ) UA pH: 5.5 -- Normal range between ( 5.0 and 7.0 ) UA Appear: Clear UA Micro Ind?: Not Indicated Chemistry 09/19/2021 6:23 AM Ethanol Level: 60 mg/dL -- Normal range between ( 0 and 3 ) 09/19/2021 2:31 AM Creatinine Level: 1.11 mg/dL -- Normal range between ( 0.60 and 1.30 ) Estimated Creatinine Clearance: 96.65 mL/min BUN: 16 mg/dL -- Normal range between ( 7 and 18 ) T4: 10.5 mcg/dL -- Normal range between ( 4.7 and 13.3 ) Glucose Level: 116 mg/dL -- Normal range between ( 74 and 106 ) Potassium Level: 3.5 mmol/L -- Normal range between ( 3.5 and 5.1 ) AST: 22 unit/L -- Normal range between ( 15 and 37 ) ALT: 42 unit/L -- Normal range between ( 12 and 78 ) Sodium Level: 141 mmol/L -- Normal range between ( 136 and 145 ) Bilirubin Indirect: Unable to Calculate mg/dL -- Normal range between ( 0.00 and 1.10 ) Calcium Level: 8.8 mg/dL -- Normal range between ( 8.5 and 10.1 ) Albumin Level: 4.0 g/dL -- Normal range between ( 3.4 and 5.0 ) Protein Total: 7.8 g/dL -- Normal range between ( 6.4 and 8.2 ) Bilirubin Total: 0.3 mg/dL -- Normal range between ( 0.2 and 1.0 ) Alk Phos: 98 unit/L -- Normal range between ( 45 and 117 ) Salicylate Level: <1.7 mg/dL -- Normal range between ( 2.8 and 20.0 ) Bilirubin Direct: <0.1 mg/dL -- Normal range between ( 0.0 and 0.2 ) CO2: 22 mmol/L -- Normal range between ( 21 and 32 ) TSH: 1.100 uIU/ml -- Normal range between ( 0.358 and 3.740 ) eGFR Non-AA: >60 mL/min eGFR AA: >60 mL/min Acetaminophen Level: <2.0 mcg/mL -- Normal range between ( 10.0 and 30.0 ) Chloride Level: 113 mmol/L -- Normal range between ( 98 and 107 ) Anion Gap: 10 -- Normal range between ( 5 and 15 ) CK: 159 unit/L -- Normal range between ( 39 and 308 ) Globulin: 3.8 g/dL -- Normal range between ( 1.4 and 4.7 ) A/G Ratio: 1.05 -- Normal range between ( 1.20 and 1.80 ) Toxicology 09/19/2021 6:02 AM Amphetamine Screen Ur: Negative Benzodiazepines Ur: Negative Cocaine Screen Ur: Negative Cannabinoid Screen Ur: Negative Barbituate Screen Ur: Negative Opiate Screen Ur: Negative Ur PCP Scrn: Negative Serology 09/19/2021 7:53 AM SARS Ag: Neg Computed Tomography 09/19/2021 2:[address] Brain/Head w/o Contrast: CT Brain/Head w/o Contrast Medications: PROVIDER INFORMATION Provider Role Assigned Unassigned DO Vides Kristin ED Provider 09/19/2021 02:03:10 Poly Mckinney ED Nurse 09/19/2021 02:58:43 09/19/2021 07:12:56 Wen Trimble ED Nurse 09/19/2021 07:12:58 Attending Physician: DO Vides Kristin Admit Doc DO Vides Kristin Consulting Doc VITALS INFORMATION Vital Sign Triage Latest (more content not included)... Normal [facility] ED Note Physicianon 09-20-19 ED Note Physician Basic Information Chief Complaint Pt brought in by EMS. [place] [facility] [place] with AMS. Pt a/o x 1. Pt verbally aggressive with staff. [employer] pink slipped pt/ Pt was found earlier at [facility] and was taken to [facility]. Pt admits to ETOH use last drink yesterday evening ED Assigned Provider/Time Time Seen: DO Vides Kristin / 09/19/2021 02:03 History of Present Illness 36-year-old male presents to the ED via EMS for altered mental status. He was found in the [employer] parking lot acting unusual and strange therefore EMS was called. He arrives unwilling to answer any questions for me. States that he does not remember what happened this evening or prior to him coming here. States he has no idea where he is. Reports that his name is Saúl. Chart review reveals that the patient was at [facility] yesterday. Admitted to using alcohol at that time, was cooperative, refused any further evaluation, and was discharged. Patient was reevaluated later after his initial arrival. He is now much more cooperative and answering questions. He is originally from [facility]. He has been living in [place] for the last several years. He has a history of depression, anxiety, alcohol abuse. He was actually appears staying in a refuge house beginning 1 week ago. He checked himself out and has been drinking since. Reports that he only drank alcohol last night. No drug use. Currently denying any SI or HI. Currently homeless, living out of his car, and reports that he feels hopeless. Review of Systems Unable to obtain given that the patient is altered Physical Exam Vitals & Measurements HR: 99 (Peripheral) RR: 18 BP: 136/92 SpO2: 96% HT: 180 cm CONSTITUTIONAL: _Altered SKIN: _Warm, dry, and intact without rash EYES: _extraocular movements are grossly intact, clear conjunctiva, no scleral icterus HENT: _Normocephalic, atraumatic, moist mucus membranes NECK: _no obvious swelling, normal range of motion, supple PULMONARY: _normal chest rise and fall, no increased work of breathing, no wheezing, rhonchi, or rales, no respiratory distress or stridor CARDIOVASCULAR: _regular rate and rhythm, radial pulses +2 bilaterally, distal extremities are warm and well perfused GASTROINTESTINAL: _nondistended, non-tender, no rebound, rigidity, guarding GENITOURINARY: _deferred NEUROLOGIC: _Speech is slurred, slow to respond, oriented to person, but not place or time MUSCULOSKELETAL: _no gross deformities, atraumatic, no lower extremity swelling PSYCHIATRIC: _Flat mood, labile, aggressive, yelling Procedure No Qualifying Data No Qualifying Data No Qualifying Data No Qualifying Data Medical Decision Making I personally spent 35 minutes devoted to the care this critically ill patient. This time excludes the time for billable procedures. 36-year-old male arrives with altered mental status. Upon questioning the patient he becomes angry and aggressive toward me. He starts yelling and for the safety of the patient and staff he was ultimately given Haldol and Ativan to help calm him down. He arrives on a pink slip by police. Currently reporting that his name is Saúl which seem that his middle name is Rc may actually be correct therefore he may be oriented to person, but not place or time. He is unable to tell me what led up to him coming to the hospital. He has been placed in seclusion given that he has been aggressive and he tried to leave once. This is for the safety of himself. This was initiated when he first arrived. Labs revealed that he is intoxicated. Head CT negative. Patient reevaluated at 0600. Now currently cooperative, answering questions appropriately and providing additional history. No longer a threat to staff or self. Appropriate to remove from seclusion. Patient reevaluated shortly before the end of my shift at 0630. Now he is having difficulty sitting still, tremoring. His CIWA score of 11. He feels that he is actively withdrawing. I offered him admission for detox versus discharge so that he may continue to drink. He would like to undergo detox as he reports that he no longer wants to drink anymore. He was given additional benzodiazepines. I discussed this case with the hospitalist, Dr. Richard, who agreed to accept him. Assessment/Plan Abnormal behavior R46.89 Alcohol abuse with withdrawal F10.139 Alcohol intoxication F10.929 AMS (altered mental status) [id number] Major depression F32.9 Orders: diazePAM, 15 mg, Oral, Tab, every 1 hr, PRN CIWA, First Dose: 09/19/21 6:34:00 EDT, 09/19/21 6:34:00 EDT diazePAM, 5 mg, Oral, Tab, every 2 hr, PRN CIWA, First Dose: 09/19/21 6:34:00 EDT, 09/19/21 6:34:00 EDT diazePAM, 10 mg, Oral, Tab, every 2 hr, PRN CIWA, First Dose: 09/19/21 6:34:00 EDT, 09/19/21 6:34:00 EDT LORazepam, 4 mg, IV Push, Injection, Once, PRN CIWA, First Dose: 09/19/21 6:34:00 EDT, 09/19/21 6:34:00 EDT sodium chloride 0.9% 1,000 mL, 1,000 mL, 1,000 mL, Soln-IV, IV infusion, 50 mL/hr, Start Date: 09/19/21 2:07:00 EDT, 106 kg, Populate C (more content not included)... Normal [facility] ED Patient Summaryon 022 ED Patient Summary (Inserted Image. Sandra ble to display) [facility] Emergency Department [address] [place] [address] [phone] Discharge Instructions (Patient) Name:MCKINLEY ROMAN RC : 1985 Reason For Visit: AMS (altered mental status) Final Diagnosis: Abnormal behavior; Alcohol abuse with withdrawal; Major depression Visit Date: 09/19/2021 02:02:14 Address: [address] [place] [phone] Primary Care Provider: Name: No Family Doctor, Physician Phone: - [phone] Emergency Department Providers:Primary Physician: DO Vides Kristin [facility] would like to thank you for allowing us to assist you with your healthcare needs. The following includes patient education materials and information regarding your injury/illness. Follow-up Instructions: You were treated today on an emergency basis; it may be meneses to contact your primary care provider to notify them of your visit today. You may have been referred to your regular doctor or a specialist, please follow up as instructed. If your condition worsens or you can't get in to see the doctor, contact the Emergency Department. Patient Education Materials: Allergy Info: No Known Allergies Medication Information: [facility] ED Physicians provided you with a complete list of medications post discharge, if you have been instructed to stop taking a medication please ensure you also follow up with this information to your Primary Care Physician. Unless otherwise noted, patient will continue to take medications as prescribed prior to the Emergency Room visit. Any specific questions regarding your chronic medications and dosages should be discussed with your physician(s) and pharmacist. Major Tests and Procedures: The following procedures and tests were performed during your ED visit. Radiology Orders: Laboratory Orders: Patient Care Orders: Request for Admit PCU, Telemetry, MD Richard Matthew D, 09/19/21 6:50:00 EDT, 09/19/21 6:50:00 EDT Seclusion 09/19/21 2:08:00 EDT, Once, Stop date 09/19/21 2:08:00 EDT, Danger to Self Comment: General Information We are happy to serve you. The examination and treatment you have received have been on an emergency basis only. It's not intended to be a substitute or replacement for complete medical care. Call the Emergency Department for any questions or concerns at [phone]. Some illnesses get worse even when treated correctly. Others may take more time before the correct diagnosis can be made. If you don't get better, or you get worse, you should return to the Emergency Department or call your doctor. We are very concerned about your general health and safety. When driving or riding in a vehicle, we encourage you to always wear your seatbelt, and if you have an or child, always use the appropriate infant/child car seat. Medication Instructions If you need a prescription refill, you must see your doctor. Take all medications only as directed. Do not take a medication you are allergic to. If you have been prescribed new medications check with your pharmacist to make sure there are no problems with the medications you are taking. To help ensure your safety, keep a copy of this discharge instruction to share with your health care provider at your next visit. It contains a copy of your medication list, diagnoses made in our emergency department and information about treatment you received here. Referral Instructions You were treated today on an emergency basis; it may be meneses to contact your primary care provider to notify them of your visit today. You may have been referred to your regular doctor or a specialist, please follow up as instructed. If your condition worsens or you can't get in to see the doctor, contact the Emergency Department. Diagnostic Studies If you had a diagnostic study performed, we will notify you of any lab, EKG or X-ray findings that would require a change in treatment. A specialist reviews most diagnostic studies after your visit. Some test results are not available for 24-72 hours. You may need a copy of your x-rays to take to your follow-up doctor. You can arrange to slat pickler a copy of your x-rays by calling [phone]. Case Management A showcase maker can help you with follow up visits, referrals, or questions about your care and other needs. You may call [phone] during regular business hours. Many medications can make you feel sleepy, impair your ability to drive, or effect your ability to make good decisions. Some of these medicines can even make you stop breathing when you go to sleep, particularly if several different medicines are combined. For this reason, we ask that you arrange for someone else to give you a ride home, do not operate machinery or make important decisions, and do not take any sleeping pills, pain pills, or drink alcohol for at least 4-6 hours from (more content not included)... Normal [facility] Etohon 09-19-2021 Ethanol Level 60 mg/dL High 0-3 [facility] Comment on above: Performed By: #### 2 [id number] ####[facility] [address] [place] [address] Ethanol Level 168 mg/dL High 0-3 [facility] Comment on above: Performed By: #### 2 834410, 6411847, 52735718, 18573667, 63067543, 7652239, 1550576, 2983707, 7797633107, 1789439, 1002556 ####[facility] [address] [place] [address] Hep Fnct Pnlon 09-19-2021 Albumin [Mass/Vol] 4.0 g/dL Normal 3.4-5.0 [facility] Comment on above: Performed By: #### 2 061039, 1885288, 99191947, 74907657, 08952734, 8940663, 7251896, 3409736, 8850287445, 2453347, 6776930 ####[facility] [address] [place] [address] Albumin/Globulin [Mass ratio] 1.05 {ratio} Low 1.20-1.80 [facility] Comment on above: Performed By: #### 2 214750, 4858815, 93367081, 12303208, 00557553, 6178704, 2318012, 5811799, 1803068253, 2060595, 9708661 ####[facility] [address] [place] [address] Alk Phos 98 unit/L Normal 45-117 [facility] Comment on above: Performed By: #### 2 347418, 8374179, 24644220, 10503430, 13080125, 8877245, 7546098, 3819254, 6854442239, 6972016, 1821516 ####[facility] [address] [place] [address] ALT [Catalytic activity/Vol] 42 U/L Normal 12-78 [facility] Comment on above: Performed By: #### 2 774981, 0298872, 78033262, 08115932, 75517878, 6831426, 7151305, 0038123, 7792723786, 6410678, 6425569 ####[facility] [address] [place] [address] AST [Catalytic activity/Vol] 22 U/L Normal 15-37 [facility] Comment on above: Performed By: #### 2 355450, 3744908, 84489602, 03418648, 99584364, 2381353, 8402676, 7056289, 2151268095, 0306781, 7112612 ####[facility] [address] [place] [address] Bilirubin [Mass/Vol] 0.3 mg/dL Normal 0.2-1.0 [facility] Comment on above: Performed By: #### 2 078307, 7787135, 33289426, 23254440, 10736979, 7012546, 5835605, 4375113, 6981401150, 0815478, 6826516 ####[facility] [address] [place] [address] Bilirubin.indirect [Mass/Vol] mg/dL Normal 0.0-0.2 [facility] Comment on above: Performed By: #### 2 430625, 6889577, 78375412, 31345548, 40615284, 8761758, 2449619, 9745744, 5550365201, 8777012, 8729970 ####[facility] [address] [place] [address] Globulin (S) [Mass/Vol] 3.8 g/dL Normal 1.4-4.7 [facility] Comment on above: Performed By: #### 2 361571, 7891931, 01130071, 78328971, 60426165, 0296642, 6150526, 7553708, 2635585332, 1014349, 5375950 ####[facility] [address] [place] [address] Protein [Mass/Vol] 7.8 g/dL Normal 6.4-8.2 [facility] Comment on above: Performed By: #### 2 473772, 9337229, 40181957, 96618111, 95458817, 9280730, 2631293, 7199149, 1285434364, 6690445, 9504814 ####[facility] [address] [place] [address] Bilirubin Indirect Unable to Calculate Invalid Interpretation Code 0.00-1.10 [facility] Comment on above: Result Comment: Resu lt added by GL_IBILI_CALC Performed By: #### 2 686555, 5630936, 01102048, 37547346, 79414388, 7701648, 8726635, 6736119, 1345598667, 5688263, 3909416 ####[facility] [address] [place] [address] Salicyon 09-19-2021 Salicylate Level <1.7 Low 2.8-20.0 [facility] Comment on above: Result Comment: Ther apeutic range for inflammatory conditions: 15.0-30.0 Salicylate toxic levels: >30.0 Performed By: #### 2 122940, 0007458, 24184877, 31087604, 98341327, 7633203, 4137588, 3975094, 0519914394, 1433655, 4316856 ####[facility] [address] [place] [address] T4on 09-19-2021 T4 [Mass/Vol] 10.5 ug/dL Normal 4.7-13.3 [facility] Comment on above: Performed By: #### 2 228705, 6952032, 27580190, 55472232, 02531111, 7450405, 7494894, 6993034, 0832496332, 0634185, 9019522 ####[facility] [address] [place] [address] TSHon 09-19-2021 TSH Qn 1.100 m[IU]/L Normal 0.358-3.740 [facility] Comment on above: Performed By: #### 2 651600, 1968519, 15658616, 93324440, 74501249, 1298084, 0878572, 2776720, 9071319806, 5227472, 0527130 ####[facility] [address] [place] [address] UAMCSIon 09-19-2021 Color (U) Yellow Normal Yellow [facility] Comment on above: Performed By: #### 2 1628022 ####[facility] [address] [place] [address] Glucose (U) [Mass/Vol] Negative Normal Negative [facility] Comment on above: Performed By: #### 2 0976676 ####[facility] [address] [place] [address] Ketones Ql (U) Negative Normal Negative [facility] Comment on above: Performed By: #### 2 4703738 ####[facility] [address] [place] [address] UA Appear Clear Normal Clear [facility] Comment on above: Performed By: #### 2 5497693 ####[facility] [address] [place] [address] UA Blood Negative Normal Negative [facility] Comment on above: Performed By: #### 2 6738933 ####[facility] [address] [place] [address] UA Leuk Est Negative Normal Negative [facility] Comment on above: Performed By: #### 2 9472915 ####[facility] [address] [place] [address] UA Micro Ind? Not Indicated Invalid Interpretation Code [facility] Comment on above: Result Comment: Resu lt created by rule GL_UA_MICRO_IND Result created by rule GL_UA_MICRO_IND Performed By: #### 2 3697132 ####[facility] [address] [place] [address] UA Nitrite Negative Normal Negative [facility] Comment on above: Performed By: #### 2 4249380 ####[facility] [address] [place] [address] UA pH 5.5 Normal 5.0-7.0 [facility] Comment on above: Performed By: #### 2 7438744 ####[facility] [address] [place] [address] UA Protein Negative Normal Negative [facility] Comment on above: Performed By: #### 2 9458477 ####[facility] [address] [place] [address] UA Spec Grav 1.022 Normal 1.002-1.035 [facility] Comment on above: Performed By: #### 2 1025818 ####[facility] [address] [place] [address] UA Urobilinogen Normal Normal Normal [facility] Comment on above: Performed By: #### 2 9193159 ####[facility] [address] [place] [address] Urobilinogen (U) [Mass/Vol] Negative Normal Negative [facility] Comment on above: Performed By: #### 2 0827170 ####[facility] [address] [place] [address] eGFRon 09-19-2021 eGFR AA >60 Invalid Interpretation Code [facility] Comment on above: Result Comment: AfAm = UNITS=mL/min/1.73 m2 Normal Reference Ranges is >60. Persistent reduction of eGFR (<60) for 3 months or more defines chronic kidney disease, while eGFR <15 indicates renal failure. Patients with eGFR values >= 60 may also have CKD if evidence of persistent proteinuria is present. Performed By: #### 2 413988, 1559038, 58707830, 71635110, 62380285, 9397797, 1815843, 5177942, 6739489300, 3249632, 9184825 ####[facility] [address] [place] [address] eGFR Non-AA >60 Invalid Interpretation Code [facility] Comment on above: Result Comment: Norm al Reference Range is >60. Performed By: #### 2 027527, 7746513, 73778085, 45429010, 01482835, 6643843, 6771971, 1095043, 0476841244, 3434059, 7713760 ####[facility] [address] [place] [address] ED Clinical Summaryon 2021 ED Clinical Summary [facility] [address] [place], [address] Fax: [phone] PERSON INFORMATION Name: MCKINLEY ROMAN Age: 36 Years : 1985 Sex: Male Language: Palestinian PCP: No Family Doctor, Physician Marital Status: Single Med Service: Emergency Medicine Arrival: 09/18/2021 19:54:00 Visit Reason: ALTERED MENTAL STATUS Acuity: 4 LOS: 000 00:44 Address: [address] [place] [phone] Diagnosis: Alcohol ingestion Medications Administered: Radiology Orders: Laboratory Orders: Lab and Rad: Laboratory or Other Results This Visit (last charted value for your 09/18/2021 visit) No Laboratory or Other Results This Visit Medications: PROVIDER INFORMATION Provider Role Assigned Unassigned MD Duran, Shannan Moore ED Provider 09/18/2021 19:57:14 Celia Feliz ED Nurse 09/18/2021 20:02:40 Attending Physician: MD Garzon Kevin K Admit Doc MD Garzon Kevin K Consulting Doc VITALS INFORMATION Vital Sign Triage Latest Temp Oral 98 Deg F 98 Deg F Temp Temporal Temp Intravascular Temp Axillary Temp Rectal 02 Sat 92 % 92 % Respiratory Rate 20 br/min 20 br/min Peripheral Pulse Rate 80 bpm 80 bpm Apical Heart Rate Blood Pressure 138 mmHg / 73 mmHg 138 mmHg / 73 mmHg Allergies No Known Allergies Immunizations No Immunizations Documented This Visit DISCHARGE INFORMATION Discharge Disposition: Home or Self Care Discharge Location: Discharge Date and Time: 09/18/2021 20:38:00 ED Checkout Date and Time: 09/18/2021 20:38:00 DEPART REASON INCOMPLETE INFORMATION Depart Action Incomplete Reason Vital Signs and Pain Recently assessed Problems No Problems Documented Smoking Status Never (less than 100 in lifetime) PATIENT EDUCATION INFORMATION Instructions: Alcohol Use Disorder Follow up: With: Address: When: [place] [phone] Business (1) Within 1 week [facility] ED Note Nursingon 09-18-2021 ED Note Nursing PT given meal and PO fluids for tonight, PT Alert and oriented x 3. PT states plan to stay at local hotel and use public resources given to him for future housing, drug or etoh use and jobs. Electronically Signed on 09/18/21 20:37 Darien Hart [facility] ED Note Physicianon 09-19-19 ED Note Physician Basic Information Chief Complaint EMS REPORTS PT WAS WONDERING AROUND [facility] AND UNSURE OF SURROUNDINGS. PT IS A&O X 3. HE ADMITS TO DRINKING TODAY. HIS EYES ARE BLOOD SHOT. HE IS REFUSING [place] AND WANTS TO LEAVE. ED Assigned Provider/Time Time Seen: MD Duran, Shannan Moore / 09/18/2021 19:57 History of Present Illness 36-year-old male with no significant past medical history, presented to the ED via squad for was reported as altered mental status, beginning just before arrival ago. Patient was at [facility] and someone there called the squad because I suspect he was behaving abnormally. Patient states he is not sure why the squad was called. He has been drinking. He denies drugs. States he wants to given he does not want blood work or anything else done. He is cooperative but he declines any further treatment except my evaluation. Patient denies shortness of breath, chest pain, headache, weakness, abdominal pain, dysuria, rash, lightheadedness or syncope or other significant complaints. Review of Systems See HPI Non-smoker Physical Exam Vitals & Measurements T: 98 ??F (Oral) HR: 80 (Peripheral) RR: 20 BP: 138/73 SpO2: 92% HT: 180 cm WT: 106 kg (Dosing) BMI: 32.72 Vital signs normal as noted above Constitutional: Well developed, No acute distress, non-toxic appearance. Eye: No scleral icterus, scleral injection noted HENT: Atraumatic, external ears normal, nose normal, oropharynx moist. Neck: No midline tenderness, no adenopathy, supple with good range of motion. Lungs: No respiratory distress. Heart: Normal rate, regular rhythm, no murmur, equal bilateral radial pulses. Abdomen: No abdominal distension. Musculoskeletal: No edema, no deformities. Skin: well hydrated, no rash. Neurologic: Alert, answers all questions appropriately, no focal motor deficits noted. Ambulatory without significant ataxia. Oriented to name place month and year. No significant slurring of speech Psychiatric: Cooperative, speech and behavior appropriate. Procedure No Qualifying Data No Qualifying Data No Qualifying Data No Qualifying Data Medical Decision Making Patient is alert and oriented and declines treatment. He does admit to drinking alcohol today and has some redness to his eyes but is cooperative, ambulatory without ataxia and no obvious slurred speech. He does not want a treatment so was discharged. Assessment/Plan Alcohol ingestion Z78.9 Orders: Discharge Patient Problem List/Past Medical History Ongoing No qualifying data Historical No qualifying data Medications Inpatient No active inpatient medications Home No active home medications Allergies No Known Allergies Social History Alcohol Occasional Use Substance Use Denies Tobacco Smoking tobacco use: Never (less than 100 in lifetime). Diagnostic Results No qualifying data available. Electronically Signed on 09/18/21 20:33 MD Duran, Shannan Moore [facility] ED Patient Summaryon 08-11-2 022 ED Patient Summary (Inserted Image. Sandra ble to display) [facility] Emergency Department [address] [phone] Discharge Instructions (Patient) Name:MCKINLEY ROMAN : 1985 [facility]: [id number] Reason For Visit: Final Diagnosis: Alcohol ingestion Visit Date: 09/18/2021 19:54:00 Address: [address] [place] [phone] Primary Care Provider: Name: No Family Doctor, Physician Phone: ( - [phone] Emergency Department Providers:Primary Physician: Shannan Garzon [facility] would like to thank you for allowing us to assist you with your healthcare needs. The following includes patient education materials and information regarding your injury/illness. Follow-up Instructions: You were treated today on an emergency basis; it may be meneses to contact your primary care provider to notify them of your visit today. You may have been referred to your regular doctor or a specialist, please follow up as instructed. If your condition worsens or you can't get in to see the doctor, contact the Emergency Department. With: Address: When: [place] [phone] Business (1) Within 1 week Patient Education Materials: Alcohol Use Disorder Alcohol Use Disorder Alcohol use disorder is a condition in which drinking disrupts daily life. People with this condition drink too much alcohol and cannot control their drinking. Alcohol use disorder can cause serious problems with physical health. It can affect the brain, heart, and other internal organs. This disorder can raise the risk for certain cancers and cause problems with mental health, such as depression or anxiety. What are the causes? This condition is caused by drinking too much alcohol over time. Some people with this condition drink to cope with or escape from negative life events. Others drink to relieve pain or symptoms of mental illness. What increases the risk? You are more likely to develop this condition if: ?? You have a family history of alcohol use disorder. ?? Your culture encourages drinking to the point of becoming drunk (intoxication). ?? You had a mood or conduct disorder in childhood. ?? You have been abused. ?? You are an adolescent and you: ? Have poor performance in school. ? Have poor supervision or guidance. ? Act on impulse and like taking risks. What are the signs or symptoms? Symptoms of this condition include: ?? Drinking more than you want to. ?? Trying several times without success to drink less. ?? Spending a lot of time thinking about alcohol, getting alcohol, drinking, or recovering from drinking. ?? Continuing to drink even when it is causing serious problems in your daily life. ?? Drinking when it is dangerous to drink, such as before driving a car. ?? Needing more and more alcohol to get the same effect you want (building up tolerance). ?? Having symptoms of withdrawal when you stop drinking. Withdrawal symptoms may include: ? Trouble sleeping, leading to tiredness (fatigue). ? Mood swings of depression and anxiety. ? Physical symptoms, such as a fast heart rate, rapid breathing, high blood pressure (hypertension), fever, cold sweats, or nausea. ? Seizures. ? Severe confusion. ? Feeling or seeing things that are not there (hallucinations). ? Shaking movements that you cannot control (tremors). How is this diagnosed? This condition is diagnosed with an assessment. Your health care provider may start by asking three or four questions about your drinking, or he or she may give you a simple test to take. This helps to get clear information from you. You may also have a physical exam or lab tests. You may be referred to a substance abuse counselor. How is this treated? With education, some people with alcohol use disorder are able to reduce their drinking. Many with this disorder cannot change their drinking behavior on their own and need help from substance use specialists. These specialists are counselors who can help diagnose how severe your disorder is and what type of treatment you need. Treatments may include: ?? Detoxification. Detoxification involves quitting drinking with supervision and direction of health care providers. Your health care provider may prescribe prescription medicines within the first week to help lessen withdrawal symptoms. Alcohol withdrawal can be dangerous and life-threatening. Detoxification may be provided in a home, community, or primary care setting, or in a hospital or substance use treatment facility. ?? Counseling. This may involve motivational interviewing (OK), family therapy, or cognitive behavioral therapy (CBT). It is provided by substance use treatment counselors or professional therapists. A counselor can address the things you can do to change your drinki (more content not included)... Normal [facility] CBC,PLATELETSon 08-22-2021 Erythrocyte distribution width (RBC) [Ratio] 13.2 % 10.9 - 14.3 % [facility] Hematocrit (Bld) [Volume fraction] 40.9 % 39.6 - 48.8 % [facility] Hemoglobin (Bld) [Mass/Vol] 14.3 g/dL 13.4 - 16.8 g/dL [facility] Interpretation and review of laboratory results Abnormal [facility] MCH (RBC) [Entitic mass] 29.5 pg 26.1 - 33.3 pg [facility] MCHC (RBC) [Mass/Vol] 35.0 g/dL 31.9 - 36.5 g/dL [facility] MCV (RBC) [Entitic vol] 84.3 fL 79.0 - 94.5 fL [facility] Platelet mean volume (Bld) [Entitic vol] 8.6 fL Low 8.7 - 12.3 fL [facility] Platelets (Bld) [#/Vol] 216 10*3/uL 146 - 337 K/uL [facility] RBC (Bld) [#/Vol] 4.85 10*6/uL [facility] WBC (Bld) [#/Vol] 5.47 10*3/uL 3.73 - 10. 10 K/uL [facility] CHEM 7 (LYTES,BUN,CREA,GLUC) on 08-22-2021 Anion gap [Moles/Vol] 11 mmol/L 7 - 17 mmol/L [facility] Chloride [Moles/Vol] 106 mmol/L 98 - 10 8 mmol/L [facility] CO2 [Moles/Vol] 23 mmol/L 21 - 31 mmol/L [facility] Creatinine [Mass/Vol] 1.00 mg/dL 0.70 - 1.30 mg/dL [facility] GFR/1.73 sq M.predicted CKD-EPI (S/P/Bld) [Vol rate/Area] >90 >=60 mL/min/1.73m 2 [facility] Comment on above: Reported eGFR is bas ed on the CKD-EPI 2020 equation using creatinine, age, and sex. Glucose [Mass/Vol] 99 mg/dL 70 - 99 mg/dL [facility]ality] [facility] Potassium [Moles/Vol] 3.5 mmol/L 3.5 - 5.0 mmol/L [facility] Sodium [Moles/Vol] 136 mmol/L 135 - 145 mmol/L [facility] Urea nitrogen [Mass/Vol] 18 mg/dL 7 - 25 mg/dL [facility] Urea nitrogen/Creatinine [Mass ratio] 18 mg/mg [facility] HEPATIC FUNCTION PANELon Albumin [Mass/Vol] 3.4 g/dL Low 3.5 - 5.0 g/dL [facility] ALP [Catalytic activity/Vol] 74 U/L 32 - 126 U/L [facility] ALT [Catalytic activity/Vol] 26 U/L 10 - 52 U/L [facility] AST [Catalytic activity/Vol] 25 U/L 10 - 39 U/L [facility] Bilirubin [Mass/Vol] 0.2 mg/dL <1.5 [facility] Bilirubin.direct [Mass/Vol] mg/dL <0.3 mg/dL [facility] Interpretation and review of laboratory results Abnormal [facility] Protein [Mass/Vol] 5.8 g/dL Low 6.4 - 8.3 g/dL [facility] MAGNESIUMon 08-22-2021 Interpretation and review of laboratory results Normal [facility] Magnesium [Mass/Vol] 1.8 mg/dL 1.6 - 2 .6 mg/dL [facility] No Panel Informationon 08-22 [facility] PT,INR,PTTon 08-22-2021 aPTT Coag (PPP) [Time] 29.8 s [facility] INR Coag (Bld) [Relative time] 1.0 {INR} [facility] Interpretation and review of laboratory results Normal [facility] PT Coag (PPP) [Time] 13.3 s [facility] CALCIUMon 08-21-2021 Calcium [Mass/Vol] 8.8 mg/dL 8.6 - 10. 5 mg/dL [facility] CBC AND ELECTRONIC DIFFon Basophils (Bld) [#/Vol] 0.05 10*3/uL 0.00 - 0.09 K/uL [facility] Basophils/100 WBC (Bld) 0.4 % [facility] Differential cell count method Nom (Bld) Electronic Differential [facility] Eosinophils (Bld) [#/Vol] 0.44 10*3/uL 0.00 - 0.48 K/uL [facility] Eosinophils/100 WBC (Bld) 3.8 % [facility] Erythrocyte distribution width (RBC) [Ratio] 13.2 % 10.9 - 14.3 % [facility] Hematocrit (Bld) [Volume fraction] 43.9 % 39.6 - 48.8 % [facility] Hemoglobin (Bld) [Mass/Vol] 15.5 g/dL 13.4 - 16.8 g/dL [facility] Immature granulocytes (Bld) [#/Vol] 10*3/uL <=0.07 K/uL [facility] Immature granulocytes/100 WBC (Bld) 0.3 % [facility] Interpretation and review of laboratory results Abnormal [facility] Lymphocytes (Bld) [#/Vol] 2.90 10*3/uL 0.83 - 3.57 K/uL [facility] Lymphocytes/100 WBC (Bld) 24.8 % [facility] MCH (RBC) [Entitic mass] 29.4 pg 26.1 - 33.3 pg [facility] MCHC (RBC) [Mass/Vol] 35.3 g/dL 31.9 - 36.5 g/dL [facility] MCV (RBC) [Entitic vol] 83.1 fL 79.0 - 94.5 fL [facility] Monocytes (Bld) [#/Vol] 1.10 10*3/uL High 0.24 - 0.93 K/uL [facility] Monocytes/100 WBC (Bld) 9.4 % [facility] Neutrophils (Bld) [#/Vol] 7.19 10*3/uL High 1.57 - 6.19 K/uL [facility] Nucleated RBC/100 WBC (Bld) [Ratio] 0.0 % <=0.2 /100 WBC [facility] Platelet mean volume (Bld) [Entitic vol] 8.5 fL Low 8.7 - 12.3 fL [facility] Platelets (Bld) [#/Vol] 273 10*3/uL 146 - 337 K/uL [facility] RBC (Bld) [#/Vol] 5.28 10*6/uL [facility] Segmented neutrophils/100 WBC (Bld) 61.3 % [facility] WBC (Bld) [#/Vol] 11.71 10*3/uL High 3.73 - 10 .10 K/uL [facility] CHEM 7 (LYTES,BUN,CREA,GLUC) on 08-21-2021 Anion gap [Moles/Vol] 15 mmol/L 7 - 17 mmol/L [facility] Chloride [Moles/Vol] 103 mmol/L 98 - 10 8 mmol/L [facility] CO2 [Moles/Vol] 22 mmol/L 21 - 31 mmol/L [facility] Creatinine [Mass/Vol] 1.14 mg/dL 0.70 - 1.30 mg/dL [facility] GFR/1.73 sq M.predicted CKD-EPI (S/P/Bld) [Vol rate/Area] 85 >=60 mL/min/1.73m 2 [facility] Comment on above: Reported eGFR is bas ed on the CKD-EPI 2020 equation using creatinine, age, and sex. Glucose [Mass/Vol] 82 mg/dL 70 - 99 mg/dL [facility] Interpretation and review of laboratory results Abnormal [facility] Osmolality Calc [Osmolality] 286 [facility] Potassium [Moles/Vol] 3.3 mmol/L Low 3.5 - 5.0 mmol/L [facility] Sodium [Moles/Vol] 137 mmol/L 135 - 145 mmol/L [facility] Urea nitrogen [Mass/Vol] 17 mg/dL 7 - 25 mg/dL [facility] Urea nitrogen/Creatinine [Mass ratio] 15 mg/mg [facility] HEPATIC FUNCTION PANELon Albumin [Mass/Vol] 4.1 g/dL 3.5 - 5.0 g/dL [facility] ALP [Catalytic activity/Vol] 83 U/L 32 - 126 U/L [facility] ALT [Catalytic activity/Vol] 29 U/L 10 - 52 U/L [facility] AST [Catalytic activity/Vol] 33 U/L 10 - 39 U/L [facility] Bilirubin [Mass/Vol] 0.8 mg/dL <1.5 [facility] Bilirubin.direct [Mass/Vol] 0.1 mg/dL <0.3 [facility] Protein [Mass/Vol] 6.7 g/dL 6.4 - 8.3 g/dL [facility] LT BLUE TOP TUBEon 2 [facility] MAGNESIUMon 08-21-2021 Magnesium [Mass/Vol] 1.8 mg/dL 1.6 - 2 .6 mg/dL [facility] No Panel Informationon 08-21 Interpretation and review of laboratory results Normal [facility] PT,INR,PTTon 08-21-2021 aPTT Coag (PPP) [Time] 29.1 s [facility] INR Coag (Bld) [Relative time] 1.1 {INR} [facility] Interpretation and review of laboratory results Abnormal [facility] PT Coag (PPP) [Time] 14.4 s [facility] ACETAMINOPHEN LEVELOrdered B y: Dania Dominguez on 08-20-2021 Acetaminophen [Mass/Vol] ug/mL Therapeutic Range: 10-32 mcg/mL mcg/mL [facility] Interpretation and review of laboratory results Normal [facility] ALCOHOL (ETHANOL),BLOODon Ethanol Ql (Bld) 81 mg/dL High <[facility] Interpretation and review of laboratory results Abnormal [facility] CHM 7 - EDon 08-20-2021 Anion gap [Moles/Vol] 13 mmol/L 7 - 17 mmol/L [facility] Chloride [Moles/Vol] 104 mmol/L 98 - 10 8 mmol/L [facility] CO2 [Moles/Vol] 22 mmol/L 21 - 31 mmol/L [facility] Creatinine [Mass/Vol] 1.20 mg/dL 0.70 - 1.30 mg/dL [facility] GFR/1.73 sq M.predicted CKD-EPI (S/P/Bld) [Vol rate/Area] 80 >=60 mL/min/1.73m 2 [facility] Comment on above: Reported eGFR is bas ed on the CKD-EPI 2020 equation using creatinine, age, and sex. Glucose [Mass/Vol] 87 mg/dL 70 - 99 mg/dL [facility]ality] [facility] Potassium [Moles/Vol] 4.1 mmol/L 3.5 - 5.0 mmol/L [facility] Sodium [Moles/Vol] 135 mmol/L 135 - 145 [facility] Urea nitrogen [Mass/Vol] 15 mg/dL 7 - 25 mg/dL [facility] Urea nitrogen/Creatinine [Mass ratio] 13 mg/mg [facility] DRUGS OF ABUSE SCREEN 10, UR INEOrdered By: Sharyn Gilmore on 08-20-2021 Amphetamine+Methamphe tamine Screen (U) [Mass/Vol] Negative Cutoff: 500 ng/mL [facility] Barbiturates Ql (U) Negative Cutoff: 200 ng/mL [facility] Benzodiazepines Ql (U) Positive Abnormal Cutoff: 200 ng/mL [facility] Buprenorphine Ql (U) Negative Cutoff: 5 ng/mL [facility] Cannabinoids Screen Ql (U) Negative Cutoff: 50 ng/mL [facility] Cocaine Ql (U) Negative Cutoff: 150 ng/mL [facility] fentaNYL Ql (U) Negative Cutoff: 1 ng/mL [facility] Interpretation and review of laboratory results Abnormal [facility] Methadone Ql (U) Negative Cutoff: 300 ng/mL [facility] Opiates Ql (U) Negative Cutoff: 300 ng/mL [facility] oxyCODONE Ql (U) Negative Cutoff: 100 ng/mL [facility] For medical purposes only. Positive results are unconfirmed unless otherwise noted. [facility] No Panel InformationOrdered By: Dania Dominguez on 08-20-2021 [facility] No Panel Informationon 08-20 [facility] C. trachomatis+N. gonorrhoea e DNA Probe+sig amp Ql (Unsp spec)Ordered By: Misael Watson on 04-30-2021 C. trachomatis DNA KARIN+probe Ql (Unsp spec) Not detected Not Detected [facility] Interpretation and review of laboratory results Normal [facility] N. gonorrhoeae DNA KARIN+probe Ql (Unsp spec) Not detected Not Detected [facility] This test was perfor med using a real time PCR assay. [facility] HIV 1 AND 2 ANTIBODIESOrdere d By: Estela Herrmann on 04-28-2021 HIV 1+2 Ab+HIV1 p24 Ag IA Ql Non-Reactive Non Reactive [facility] HIV 1 AND 2 ANTIBODIESon HIV 1+2 Ab+HIV1 p24 Ag IA Ql Non-Reactive Non Reactive [facility] HIV 1+2 Ab+HIV1 p24 Ag IA Ql Ordered By: Estela Herrmann on 04-28-2021 Interpretation and review of laboratory results Normal [facility] HIV 1+2 Ab+HIV1 p24 Ag IA Ql on 04-28-2021 Interpretation and review of laboratory results Normal [facility] No Panel Informationon 04-27 [facility] LT BLUE TOP TUBEon 2 [facility] T. pallidum Ab Ql (S)Ordered By: Hafsa Trivedi on 04-26-2021 Interpretation and review of laboratory results Normal [facility] T. pallidum IgG Ql (S) Non-Reactive Non Reactive [facility] TSH W/FT4 REFLEXon 2 Interpretation and review of laboratory results Normal [facility] TSH Qn 1.363 m[IU]/L [facility] ACETAMINOPHEN LEVELon 2021 Acetaminophen [Mass/Vol] ug/mL Therapeutic Range: 10-32 mcg/mL mcg/mL [facility] Icterus 0 [facility] ALCOHOL (ETHANOL),BLOODOrder ed By: Pari Isabel on 04-25-2021 Ethanol Ql (Bld) 245 mg/dL High <10 [facility] Interpretation and review of laboratory results Abnormal [facility] CBC AND ELECTRONIC DIFFon Basophils (Bld) [#/Vol] 10*3/uL 0.00 - 0.09 K/uL [facility] Basophils/100 WBC (Bld) 0.4 % [facility] DIFF STATUS Electronic Differential [facility] Eosinophils (Bld) [#/Vol] 0.14 10*3/uL 0.00 - 0.48 K/uL [facility] Eosinophils/100 WBC (Bld) 2.0 % [facility] Erythrocyte distribution width (RBC) [Ratio] 13.0 % 10.9 - 14.3 % [facility] Hematocrit (Bld) [Volume fraction] 45.1 % 39.6 - 48.8 % [facility] Hemoglobin (Bld) [Mass/Vol] 15.8 g/dL 13.4 - 16.8 g/dL [facility] Immature granulocytes (Bld) [#/Vol] 10*3/uL <=0.08 K/uL [facility] Immature granulocytes/100 WBC (Bld) 0.3 % [facility] Interpretation and review of laboratory results Abnormal [facility] Lymphocytes (Bld) [#/Vol] 2.71 10*3/uL 0.83 - 3.57 K/uL [facility] Lymphocytes/100 WBC (Bld) 38.9 % [facility] MCH (RBC) [Entitic mass] 29.8 pg 26.1 - 33.3 pg [facility] MCHC (RBC) [Mass/Vol] 35.0 g/dL 31.9 - 36.5 g/dL [facility] MCV (RBC) [Entitic vol] 84.9 fL 79.0 - 94.5 fL [facility] Monocytes (Bld) [#/Vol] 0.94 10*3/uL High 0.24 - 0.93 K/uL [facility] Monocytes/100 WBC (Bld) 13.5 % [facility] Neutrophils (Bld) [#/Vol] 3.12 10*3/uL 1.57 - 6.19 K/uL [facility] Nucleated RBC/100 WBC (Bld) [Ratio] 0.0 % <=0.2 /100 WBC [facility] Platelet mean volume (Bld) [Entitic vol] 8.5 fL Low 8.7 - 12.3 fL [facility] Platelets (Bld) [#/Vol] 250 10*3/uL 146 - 337 K/uL [facility] RBC (Bld) [#/Vol] 5.31 10*6/uL [facility] Segmented neutrophils/100 WBC (Bld) 44.9 % [facility] WBC (Bld) [#/Vol] 6.96 10*3/uL 3.73 - 10. 10 K/uL [facility] CHM 7 - EDon 04-25-2021 Anion gap [Moles/Vol] 10 mmol/L 7 - 17 mmol/L [facility] Chloride [Moles/Vol] 110 mmol/L High 98 - 10 8 mmol/L [facility] CO2 [Moles/Vol] 27 mmol/L 21 - 31 mmol/L [facility] Creatinine [Mass/Vol] 1.20 mg/dL 0.70 - 1.30 mg/dL [facility] GFR/1.73 sq M.predicted CKD-EPI (S/P/Bld) [Vol rate/Area] 80 >=60 mL/min/1.73m 2 [facility] Comment on above: Reported eGFR is bas ed on the CKD-EPI 2020 equation using creatinine, age, and sex. Glucose [Mass/Vol] 99 mg/dL 70 - 99 mg/dL [facility] Osmolality Calc [Osmolality] 298 [facility] Potassium [Moles/Vol] 4.3 mmol/L 3.5 - 5.0 mmol/L [facility] Sodium [Moles/Vol] 143 mmol/L 135 - 145 mmol/L [facility] Urea nitrogen [Mass/Vol] 9 mg/dL 7 - 25 mg/dL [facility] Urea nitrogen/Creatinine [Mass ratio] 8 mg/mg [facility] DRUGS OF ABUSE SCREEN 10, UR INEon 04-25-2021 Amphetamine+Methamphe tamine Screen (U) [Mass/Vol] Negative Cutoff: 500 ng/mL [facility] Barbiturates Ql (U) Negative Cutoff: 200 ng/mL [facility] Benzodiazepines Ql (U) Negative Cutoff: 200 ng/mL [facility] Buprenorphine Ql (U) Negative Cutoff: 5 ng/mL [facility] Cannabinoids Screen Ql (U) Negative Cutoff: 50 ng/mL [facility] Cocaine Ql (U) Negative Cutoff: 150 ng/mL [facility] fentaNYL Ql (U) Negative Cutoff: 1 ng/mL [facility] Interpretation and review of laboratory results Normal [facility] Methadone Ql (U) Negative Cutoff: 300 ng/mL [facility] Opiates Ql (U) Negative Cutoff: 300 ng/mL [facility] oxyCODONE Ql (U) Negative Cutoff: 100 ng/mL [facility] For medical purposes only. Positive results are unconfirmed unless otherwise noted. [facility] HEPATIC FUNCTION PANELon Albumin [Mass/Vol] 4.4 g/dL 3.5 - 5.0 g/dL [facility] ALP [Catalytic activity/Vol] 119 U/L 32 - 126 U/L [facility] ALT [Catalytic activity/Vol] 58 U/L High 10 - 52 U/L [facility] AST [Catalytic activity/Vol] 23 U/L 10 - 39 U/L [facility] Bilirubin [Mass/Vol] 0.3 mg/dL <1.5 [facility] Bilirubin.direct [Mass/Vol] mg/dL <0.3 mg/dL [facility] Protein [Mass/Vol] 7.3 g/dL 6.4 - 8.3 g/dL [facility] LIPASEon 04-25-2021 Interpretation and review of laboratory results Normal [facility] Lipase [Catalytic activity/Vol] 16 U/L 11 - 82 U/L [facility] NOVEL CORONAVIRUS PCRon 04-08 SARS-CoV-2 (COVID-19) RNA KARIN+probe Ql (Unsp spec) Not detected NOT DETECTED [facility] Comment on above: [facility] Negative results do not preclude SARS-CoV-2 infection and should not be used as the sole basis for treatment or other patient management decisions. Optimum specimen types and timing for peak viral levels during infections caused by SARS-CoV-2 has not been determined. The possibility of a false negative result should especially be considered if the patient's recent exposures or clinical presentation suggest that SARS-CoV-2 infection is probable, and diagnostic tests for other causes of illness (e.g., other respiratory illness) are negative. Collection of a new specimen and re-testing may be necessary if the patient is critically ill or clinically deteriorating. SARS-CoV-2 (COVID-19) RNA KARIN+probe Ql (Unsp spec) This test was performed using real time PCR for the qualitative detection of SARS-CoV-2 nucleic acid. The test has been reviewed by the FDA and given emergency use authorization. This test was developed and its performance characteristics determined by [facility]. This test is used for clinical purposes. It should not be regarded as investigational or for research. [facility] No Panel Informationon 04-25 Interpretation and review of laboratory results Abnormal [facility] SALICYLATE LEVELon Interpretation and review of laboratory results Normal [facility] Salicylates [Mass/Vol] mg/dL Therapeutic Range: 20.0-30.0 mg/dL mg/dL [facility] SARS-CoV-2 (COVID-19) RNA NA A+probe Ql (Unsp spec)on 04-25-2021 Interpretation and review of laboratory results Normal [facility] CT HEAD OR BRAIN WITHOUT CON TRASTon 04-10-2021 CT HEAD OR BRAIN WITHOUT CONTRAST EXAMINATION: CT OF THE HEAD WITHOUT CONTRAST 04/10/2021 TECHNIQUE: CT of the head was performed without the administration of intravenous contrast. Dose modulation, iterative reconstruction, and/or weight based adjustment of the mA/kV was utilized to reduce the radiation dose to as low as reasonably achievable. COMPARISON: None. HISTORY: ORDERING SYSTEM PROVIDED HISTORY: Fall, intoxicated; TECHNOLOGIST PROVIDED HISTORY: Injury/Trauma Acuity: Acute Reason for Exam: fall Type of Encounter: Initial Mechanism of Injury: fall ORDERING SYSTEM PROVIDED DIAGNOSIS CODES: F10.929 Alcoholic intoxication with complication (HCC) R45.1 Agitation FINDINGS: BRAIN/VENTRICLES: No acute intracranial hemorrhage or extraaxial fluid collection. Ma-white differentiation is maintained. No evidence of mass, mass effect or midline shift. No evidence of hydrocephalus. ORBITS: The visualized portion of the orbits demonstrate no acute abnormality. SINUSES: The visualized paranasal sinuses and mastoid air cells demonstrate no acute abnormality. SOFT TISSUES/SKULL: No acute abnormality of the visualized skull or soft tissues. IMPRESSION: No acute intracranial abnormality. Workstation ID: [id number] Dictated by: JULIA SANCHEZ on WedApr 10, 2021 4:58:59 AM EST Transcribed by: JULIA SANCHEZ on WedApr 10, 2021 4:58:59 AM EST Finalized by: JULIA SANCHEZ on WedApr 10, 2021 4:58:59 AM EST Normal [facility] Comment on above: Order Comment: Injur y/Trauma or Illness?:Injury/Trauma How long have you had these symptoms (acute/chronic)?:Acute Reason for exam?:fall Type of Exam?:Initial Mechanism of injury?:fall XR CHEST 2 VIEWSon XR CHEST 2 VIEWS EXAMINATION TYPE: XR CHEST 2 VIEWS DATE OF EXAM: 04/06/2021 10:30 PM COMPARISON: 04/04/2021 HISTORY: chest pain FINDINGS: Lungs are clear. Negative for pneumothorax. Cardiomediastinal silhouette is within normal limits. IMPRESSION: Nonacute study. -------- FINAL REPORT -------- Dictated By: Braeden Cade Dictated Date: 04/06/2021 22:38 Assigned Physician: Braeden Cade Reviewed and Electronically Signed By: Braeden Cade Signed Date: 04/06/2021 22:44 Workstation ID: [id number] Transcribed By: Self Edit Transcribed Date: 04/06/2021 22:38 Normal [facility] Drugs identified Screen Nom (U)on 04-05-2021 Amphetamine Screen, Ur Not detected Normal Not Detected [facility] Comment on above: Order Comment: The f ollowing detection limits are used for the urine drugs of abuse: Amphetamine 1000 ng/mL Barbiturate 200 ng/mL Benzodiazepine 200 ng/mL Cannabinoids 50 ng/mL Cocaine 300 ng/mL Methadone 300 ng/mL Opiates 300 ng/mL Oxycodone 100 ng/mL Testing is for screening purposes only and should not be used in non-medical determinations. Confirmatory testing is available on request. Performed By: #### 1 2286-1 #### [facility] [address] [place] [address] Barbiturate Screen, Ur Not detected Normal Not Detected [facility] Comment on above: Order Comment: The f ollowing detection limits are used for the urine drugs of abuse: Amphetamine 1000 ng/mL Barbiturate 200 ng/mL Benzodiazepine 200 ng/mL Cannabinoids 50 ng/mL Cocaine 300 ng/mL Methadone 300 ng/mL Opiates 300 ng/mL Oxycodone 100 ng/mL Testing is for screening purposes only and should not be used in non-medical determinations. Confirmatory testing is available on request. Performed By: #### 1 2286-1 #### [address] [address] Benzodiazepine Screen, Ur Not detected Normal Not Detected [facility] Comment on above: Order Comment: The f ollowing detection limits are used for the urine drugs of abuse: Amphetamine 1000 ng/mL Barbiturate 200 ng/mL Benzodiazepine 200 ng/mL Cannabinoids 50 ng/mL Cocaine 300 ng/mL Methadone 300 ng/mL Opiates 300 ng/mL Oxycodone 100 ng/mL Testing is for screening purposes only and should not be used in non-medical determinations. Confirmatory testing is available on request. Performed By: #### 1 2286-1 #### [facility] [address] [place] [address] Cannabinoid (THC) Screen, Ur Not detected Normal Not Detected [facility] Comment on above: Order Comment: The f ollowing detection limits are used for the urine drugs of abuse: Amphetamine 1000 ng/mL Barbiturate 200 ng/mL Benzodiazepine 200 ng/mL Cannabinoids 50 ng/mL Cocaine 300 ng/mL Methadone 300 ng/mL Opiates 300 ng/mL Oxycodone 100 ng/mL Testing is for screening purposes only and should not be used in non-medical determinations. Confirmatory testing is available on request. Performed By: #### 1 2286-1 #### [facility] [address] [place] [address] Cocaine Screen, Ur Not detected Normal Not Detected [facility] Comment on above: Order Comment: The f ollowing detection limits are used for the urine drugs of abuse: Amphetamine 1000 ng/mL Barbiturate 200 ng/mL Benzodiazepine 200 ng/mL Cannabinoids 50 ng/mL Cocaine 300 ng/mL Methadone 300 ng/mL Opiates 300 ng/mL Oxycodone 100 ng/mL Testing is for screening purposes only and should not be used in non-medical determinations. Confirmatory testing is available on request. Performed By: #### 1 2286-1 #### [address] [address] Methadone Screen, Urine Not detected Normal Not Detected [facility] Comment on above: Order Comment: The f ollowing detection limits are used for the urine drugs of abuse: Amphetamine 1000 ng/mL Barbiturate 200 ng/mL Benzodiazepine 200 ng/mL Cannabinoids 50 ng/mL Cocaine 300 ng/mL Methadone 300 ng/mL Opiates 300 ng/mL Oxycodone 100 ng/mL Testing is for screening purposes only and should not be used in non-medical determinations. Confirmatory testing is available on request. Performed By: #### 1 2286-1 #### [facility] [address] [place] [address] Opiate Screen, Ur Not detected Normal Not Detected [facility] Comment on above: Order Comment: The f ollowing detection limits are used for the urine drugs of abuse: Amphetamine 1000 ng/mL Barbiturate 200 ng/mL Benzodiazepine 200 ng/mL Cannabinoids 50 ng/mL Cocaine 300 ng/mL Methadone 300 ng/mL Opiates 300 ng/mL Oxycodone 100 ng/mL Testing is for screening purposes only and should not be used in non-medical determinations. Confirmatory testing is available on request. Performed By: #### 1 2286-1 #### [facility] [address] [place] [address] Oxycodone Screen, Ur Not detected Normal Not Detected [facility] Comment on above: Order Comment: The f ollowing detection limits are used for the urine drugs of abuse: Amphetamine 1000 ng/mL Barbiturate 200 ng/mL Benzodiazepine 200 ng/mL Cannabinoids 50 ng/mL Cocaine 300 ng/mL Methadone 300 ng/mL Opiates 300 ng/mL Oxycodone 100 ng/mL Testing is for screening purposes only and should not be used in non-medical determinations. Confirmatory testing is available on request. Performed By: #### 1 2286-1 #### [facility] [address] [place] [address] Ethanol (Bld) [Moles/Vol]on 04-05-2021 Ethanol Level <10 Normal <[address] [facility] Comment on above: Performed By: #### 2 4321-2 #### [facility] [address] [place] [address] Hemogram and platelets WO di fferential panel (Bld)on 04-05-2021 Basophils (Bld) [#/Vol] 0.10 10*3/uL Normal 0.00-0.20 [facility] Comment on above: Performed By: #### 2 4321-2 #### [facility] [address] [place] [address] Basophils/100 WBC (Bld) 0.7 % Normal 0.0-2.0 [facility] Comment on above: Performed By: #### 2 4321-2 #### [facility] [address] [place] [address] Eosinophils (Bld) [#/Vol] 0.10 10*3/uL Normal 0.00-0.70 [facility] Comment on above: Performed By: #### 2 4321-2 #### [facility] [address] [place] [address] Eosinophils/100 WBC (Bld) 1.7 % Normal 0.0-7.0 [facility] Comment on above: Performed By: #### 2 4321-2 #### [facility] [address] [place] [address] Erythrocyte distribution width (RBC) [Ratio] 13.5 % Normal 11.0-14.8 [facility] Comment on above: Performed By: #### 2 4321-2 #### [facility] [address] [place] [address] Hematocrit (Bld) [Volume fraction] 42.3 % Normal 39.0-49.0 [facility] Comment on above: Performed By: #### 2 4321-2 #### [facility] [address] [place] [address] Hemoglobin (Bld) [Mass/Vol] 15.5 g/dL Normal 13.5-17.5 [facility] Comment on above: Performed By: #### 2 4321-2 #### [facility] [address] [place] [address] Lymphocytes (Bld) [#/Vol] 2.90 10*3/uL Normal 1.00-4.80 [facility] Comment on above: Performed By: #### 2 4321-2 #### [facility] [address] [place] [address] Lymphocytes/100 WBC (Bld) 33.9 % Normal 22.0-44.0 [facility] Comment on above: Performed By: #### 2 4321-2 #### [facility] [address] [place] [address] MCH 31.6 pcg Normal 27.0-34.0 [facility] Comment on above: Performed By: #### 2 4321-2 #### [facility] [address] [place] [address] MCHC (RBC) [Mass/Vol] 36.6 g/dL High 32.0-36.0 [facility] Comment on above: Performed By: #### 2 4321-2 #### [facility] [address] [place] [address] MCV (RBC) [Entitic vol] 86.3 fL Normal 80.0-97.0 [facility] Comment on above: Performed By: #### 2 4321-2 #### [facility] [address] [place] [address] Monocytes (Bld) [#/Vol] 0.70 10*3/uL Normal 0.00-0.90 [facility] Comment on above: Performed By: #### 2 4321-2 #### [facility] [address] [place] [address] Monocytes/100 WBC (Bld) 7.7 % Normal 0.0-12.0 [facility] Comment on above: Performed By: #### 2 4321-2 #### [facility] [address] [place] [address] Neutrophils Absolute 4.80 K/mcL Normal 1.80-7.70 [facility] Comment on above: Performed By: #### 2 4321-2 #### [facility] [address] [place] [address] Neutrophils/100 WBC (Bld) 56.0 % Normal 40.0-70.0 [facility] Comment on above: Performed By: #### 2 4321-2 #### [facility] [address] [place] [address] Platelet mean volume (Bld) [Entitic vol] 6.1 fL Low 6.2-12.1 [facility] Comment on above: Performed By: #### 2 4321-2 #### [facility] [address] [place] [address] Platelets (Bld) [#/Vol] 341 10*3/uL Normal 142-424 [facility] Comment on above: Performed By: #### 2 1-2 #### [facility] [address] [place] [address] RBC (Bld) [#/Vol] 4.91 10*6/uL Normal 4.30-5.70 [facility] Comment on above: Performed By: #### 2 4320-2 #### [facility] [address] [place] [address] WBC (Bld) [#/Vol] 8.5 10*3/uL Normal 4.6-10.2 [facility] Comment on above: Performed By: #### 2 4321-2 #### [facility] [address] [place] [address] Magnesium [Mass/Vol]on 04-05 Ethanol Level 147 mg/dL High <[address] [facility] Comment on above: Performed By: #### 2 4321-2 #### [facility] [address] [place] [address] Urinalysis dipstick W Reflex Culture panel (U)on 04-05-2021 Bilirubin, Urine Negative Normal Negative [facility] Comment on above: Performed By: #### 5 7019-2 #### [facility] [address] [place] [address] Blood, Urine 1+ Abnormal Negative [facility] Comment on above: Performed By: #### 5 7019-2 #### [facility] [address] [place] [address] Clarity (U) Clear Normal Clear [facility] Comment on above: Performed By: #### 5 7019-2 #### [facility] [address] [place] [address] Color (U) Straw Abnormal Yellow [facility] Comment on above: Performed By: #### 5 7019-2 #### [facility] [address] [place] [address] Glucose Ql (U) Normal Normal Normal [facility] Comment on above: Performed By: #### 5 7019-2 #### [facility] [address] [place] [address] Ketones Ql (U) Negative Normal Negative [facility] Comment on above: Performed By: #### 5 7019-2 #### [facility] [address] [place] [address] Leukocytes, Urine Negative Normal Negative [facility] Comment on above: Performed By: #### 5 7019-2 #### [facility] [address] [place] [address] Mucus, UA Rare Abnormal None [facility] Comment on above: Performed By: #### 5 7019-2 #### [facility] [address] [place] [address] Nitrite, Urine Negative Normal Negative [facility] Comment on above: Performed By: #### 5 7019-2 #### [facility] [address] [place] [address] pH (U) 5.0 [pH] Normal 5.0-8.0 [facility] Comment on above: Performed By: #### 5 7019-2 #### [facility] [address] [place] [address] Protein, Urine Negative Normal Negative [facility] Comment on above: Performed By: #### 5 7019-2 #### [facility] [address] [place] [address] RBC LM.HPF (Urine sed) [#/Area] /[HPF] Normal 0-5 [facility] Comment on above: Performed By: #### 5 7019-2 #### [facility] [address] [place] [address] Specific [place] Urine 1.006 Normal 1.002-1.030 [facility] Comment on above: Performed By: #### 5 7019-2 #### [facility] [address] [place] [address] Urobilinogen, Urine Normal Normal Normal [facility] Comment on above: Performed By: #### 5 7019-2 #### [facility] [address] [place] [address] WBC LM.HPF (Urine sed) [#/Area] /[HPF] Normal 0-5 [facility] Comment on above: Performed By: #### 5 7019-2 #### [facility] [address] [place] [address] Basic metabolic 2000 panelon 04-04-2021 High Sensitivity Troponin I 4 ng/L Normal <20 [facility] Comment on above: Performed By: #### 2 4321-2 #### [facility] [address] [place] [address] Comprehensive metabolic 2000 panelon 04-04-2021 Ethanol Level 228 mg/dL High <[address] [facility] Comment on above: Performed By: #### 2 4323-8 #### [facility] [address] [place] [address] Drugs identified Screen Nom (U)on 04-04-2021 Amphetamine Screen, Ur Not detected Normal Not Detected [facility] Comment on above: Order Comment: The f ollowing detection limits are used for the urine drugs of abuse: Amphetamine 1000 ng/mL Barbiturate 200 ng/mL Benzodiazepine 200 ng/mL Cannabinoids 50 ng/mL Cocaine 300 ng/mL Methadone 300 ng/mL Opiates 300 ng/mL Oxycodone 100 ng/mL Testing is for screening purposes only and should not be used in non-medical determinations. Confirmatory testing is available on request. Performed By: #### 1 2286-1 #### [facility] [address] [place] [address] Barbiturate Screen, Ur Not detected Normal Not Detected [facility] Comment on above: Order Comment: The f ollowing detection limits are used for the urine drugs of abuse: Amphetamine 1000 ng/mL Barbiturate 200 ng/mL Benzodiazepine 200 ng/mL Cannabinoids 50 ng/mL Cocaine 300 ng/mL Methadone 300 ng/mL Opiates 300 ng/mL Oxycodone 100 ng/mL Testing is for screening purposes only and should not be used in non-medical determinations. Confirmatory testing is available on request. Performed By: #### 1 2286-1 #### [facility] [address] [place] [address] Benzodiazepine Screen, Ur Not detected Normal Not Detected [facility] Comment on above: Order Comment: The f ollowing detection limits are used for the urine drugs of abuse: Amphetamine 1000 ng/mL Barbiturate 200 ng/mL Benzodiazepine 200 ng/mL Cannabinoids 50 ng/mL Cocaine 300 ng/mL Methadone 300 ng/mL Opiates 300 ng/mL Oxycodone 100 ng/mL Testing is for screening purposes only and should not be used in non-medical determinations. Confirmatory testing is available on request. Performed By: #### 1 2286-1 #### [facility] [address] [place] [address] Cannabinoid (THC) Screen, Ur Not detected Normal Not Detected [facility] Comment on above: Order Comment: The f ollowing detection limits are used for the urine drugs of abuse: Amphetamine 1000 ng/mL Barbiturate 200 ng/mL Benzodiazepine 200 ng/mL Cannabinoids 50 ng/mL Cocaine 300 ng/mL Methadone 300 ng/mL Opiates 300 ng/mL Oxycodone 100 ng/mL Testing is for screening purposes only and should not be used in non-medical determinations. Confirmatory testing is available on request. Performed By: #### 1 2286-1 #### [facility] [address] [place] [address] Cocaine Screen, Ur Not detected Normal Not Detected [facility] Comment on above: Order Comment: The f ollowing detection limits are used for the urine drugs of abuse: Amphetamine 1000 ng/mL Barbiturate 200 ng/mL Benzodiazepine 200 ng/mL Cannabinoids 50 ng/mL Cocaine 300 ng/mL Methadone 300 ng/mL Opiates 300 ng/mL Oxycodone 100 ng/mL Testing is for screening purposes only and should not be used in non-medical determinations. Confirmatory testing is available on request. Performed By: #### 1 2286-1 #### [facility] [address] [place] [address] Methadone Screen, Urine Not detected Normal Not Detected [facility] Comment on above: Order Comment: The f ollowing detection limits are used for the urine drugs of abuse: Amphetamine 1000 ng/mL Barbiturate 200 ng/mL Benzodiazepine 200 ng/mL Cannabinoids 50 ng/mL Cocaine 300 ng/mL Methadone 300 ng/mL Opiates 300 ng/mL Oxycodone 100 ng/mL Testing is for screening purposes only and should not be used in non-medical determinations. Confirmatory testing is available on request. Performed By: #### 1 2286-1 #### [facility] [address] [place] [address] Opiate Screen, Ur Not detected Normal Not Detected [facility] Comment on above: Order Comment: The f ollowing detection limits are used for the urine drugs of abuse: Amphetamine 1000 ng/mL Barbiturate 200 ng/mL Benzodiazepine 200 ng/mL Cannabinoids 50 ng/mL Cocaine 300 ng/mL Methadone 300 ng/mL Opiates 300 ng/mL Oxycodone 100 ng/mL Testing is for screening purposes only and should not be used in non-medical determinations. Confirmatory testing is available on request. Performed By: #### 1 2286-1 #### [facility] [address] [place] [address] Oxycodone Screen, Ur Not detected Normal Not Detected [facility] Comment on above: Order Comment: The f ollowing detection limits are used for the urine drugs of abuse: Amphetamine 1000 ng/mL Barbiturate 200 ng/mL Benzodiazepine 200 ng/mL Cannabinoids 50 ng/mL Cocaine 300 ng/mL Methadone 300 ng/mL Opiates 300 ng/mL Oxycodone 100 ng/mL Testing is for screening purposes only and should not be used in non-medical determinations. Confirmatory testing is available on request. Performed By: #### 1 2286-1 #### [facility] [address] [place] [address] Ethanol (Bld) [Moles/Vol]on 04-04-2021 Ethanol Level 72 mg/dL High <[address] [facility] Comment on above: Performed By: #### 1 5120-9 #### [facility] [address] [place] [address] Hemogram and platelets WO di fferential panel (Bld)on 04-04-2021 Basophils (Bld) [#/Vol] 0.10 10*3/uL Normal 0.00-0.20 [facility] Comment on above: Performed By: #### 2 4317-0 #### [facility] [address] [place] [address] Basophils/100 WBC (Bld) 0.6 % Normal 0.0-2.0 [facility] Comment on above: Performed By: #### 2 4317-0 #### [facility] [address] [place] [address] Eosinophils (Bld) [#/Vol] 0.10 10*3/uL Normal 0.00-0.70 [facility] Comment on above: Performed By: #### 2 4317-0 #### [facility] [address] [place] [address] Eosinophils/100 WBC (Bld) 1.5 % Normal 0.0-7.0 [facility] Comment on above: Performed By: #### 2 4317-0 #### [facility] [address] [place] [address] Erythrocyte distribution width (RBC) [Ratio] 13.5 % Normal 11.0-14.8 [facility] Comment on above: Performed By: #### 2 4317-0 #### [facility] [address] [place] [address] Hematocrit (Bld) [Volume fraction] 45.7 % Normal 39.0-49.0 [facility] Comment on above: Performed By: #### 2 4317-0 #### [facility] [address] [place] [address] Hemoglobin (Bld) [Mass/Vol] 16.3 g/dL Normal 13.5-17.5 [facility] Comment on above: Performed By: #### 2 4317-0 #### [facility] [address] [place] [address] Lymphocytes (Bld) [#/Vol] 2.50 10*3/uL Normal 1.00-4.80 [facility] Comment on above: Performed By: #### 2 4317-0 #### [facility] [address] [place] [address] Lymphocytes/100 WBC (Bld) 27.0 % Normal 22.0-44.0 [facility] Comment on above: Performed By: #### 2 4317-0 #### [facility] [address] [place] [address] MCH 30.9 pcg Normal 27.0-34.0 [facility] Comment on above: Performed By: #### 2 4317-0 #### [facility] [address] [place] [address] MCHC (RBC) [Mass/Vol] 35.5 g/dL Normal 32.0-36.0 [facility] Comment on above: Performed By: #### 2 4317-0 #### [facility] [address] [place] [address] MCV (RBC) [Entitic vol] 86.9 fL Normal 80.0-97.0 [facility] Comment on above: Performed By: #### 2 4317-0 #### [facility] [address] [place] [address] Monocytes (Bld) [#/Vol] 0.50 10*3/uL Normal 0.00-0.90 [facility] Comment on above: Performed By: #### 2 4317-0 #### [facility] [address] [place] [address] Monocytes/100 WBC (Bld) 5.5 % Normal 0.0-12.0 [facility] Comment on above: Performed By: #### 2 4317-0 #### [facility] [address] [place] [address] Neutrophils Absolute 6.10 K/mcL Normal 1.80-7.70 [facility] Comment on above: Performed By: #### 2 4317-0 #### [facility] [address] [place] [address] Neutrophils/100 WBC (Bld) 65.4 % Normal 40.0-70.0 [facility] Comment on above: Performed By: #### 2 4317-0 #### [facility] [address] [place] [address] Platelet mean volume (Bld) [Entitic vol] 6.5 fL Normal 6.2-12.1 [facility] Comment on above: Performed By: #### 2 4317-0 #### [facility] [address] [place] [address] Platelets (Bld) [#/Vol] 374 10*3/uL Normal 142-424 [facility] Comment on above: Performed By: #### 2 4317-0 #### [facility] [address] [place] [address] RBC (Bld) [#/Vol] 5.26 10*6/uL Normal 4.30-5.70 [facility] Comment on above: Performed By: #### 2 4317-0 #### [facility] [address] [place] [address] WBC (Bld) [#/Vol] 9.4 10*3/uL Normal 4.6-10.2 [facility] Comment on above: Performed By: #### 2 4317-0 #### [facility] [address] [place] [address] Basophils (Bld) [#/Vol] 0.00 10*3/uL Normal 0.00-0.20 [facility] Comment on above: Performed By: #### 2 4317-0 #### [facility] [address] [place] [address] Basophils/100 WBC (Bld) 0.5 % Normal 0.0-2.0 [facility] Comment on above: Performed By: #### 2 4317-0 #### [facility] [address] [place] [address] Eosinophils (Bld) [#/Vol] 0.10 10*3/uL Normal 0.00-0.70 [facility] Comment on above: Performed By: #### 2 4317-0 #### [facility] [address] [place] [address] Eosinophils/100 WBC (Bld) 2.1 % Normal 0.0-7.0 [facility] Comment on above: Performed By: #### 2 4317-0 #### [facility] [address] [place] [address] Erythrocyte distribution width (RBC) [Ratio] 12.9 % Normal 11.0-14.8 [facility] Comment on above: Performed By: #### 2 4317-0 #### [facility] [address] [place] [address] Hematocrit (Bld) [Volume fraction] 42.8 % Normal 39.0-49.0 [facility] Comment on above: Performed By: #### 2 4317-0 #### [facility] [address] [place] [address] Hemoglobin (Bld) [Mass/Vol] 15.3 g/dL Normal 13.5-17.5 [facility] Comment on above: Performed By: #### 2 4317-0 #### [facility] [address] [place] [address] Lymphocytes (Bld) [#/Vol] 2.30 10*3/uL Normal 1.00-4.80 [facility] Comment on above: Performed By: #### 2 4317-0 #### [facility] [address] [place] [address] Lymphocytes/100 WBC (Bld) 33.7 % Normal 22.0-44.0 [facility] Comment on above: Performed By: #### 2 4317-0 #### [facility] [address] [place] [address] MCH 30.2 pcg Normal 27.0-34.0 [facility] Comment on above: Performed By: #### 2 4317-0 #### [facility] [address] [place] [address] MCHC (RBC) [Mass/Vol] 35.8 g/dL Normal 32.0-36.0 [facility] Comment on above: Performed By: #### 2 4317-0 #### [facility] [address] [place] [address] MCV (RBC) [Entitic vol] 84.5 fL Normal 80.0-97.0 [facility] Comment on above: Performed By: #### 2 4317-0 #### [facility] [address] [place] [address] Monocytes (Bld) [#/Vol] 0.40 10*3/uL Normal 0.00-0.90 [facility] Comment on above: Performed By: #### 2 4317-0 #### [facility] [address] [place] [address] Monocytes/100 WBC (Bld) 6.0 % Normal 0.0-12.0 [facility] Comment on above: Performed By: #### 2 4317-0 #### [facility] [address] [place] [address] Neutrophils Absolute 3.90 K/mcL Normal 1.80-7.70 [facility] Comment on above: Performed By: #### 2 4317-0 #### [facility] [address] [place] [address] Neutrophils/100 WBC (Bld) 57.7 % Normal 40.0-70.0 [facility] Comment on above: Performed By: #### 2 4317-0 #### [facility] [address] [place] [address] Platelet mean volume (Bld) [Entitic vol] 6.0 fL Low 6.2-12.1 [facility] Comment on above: Performed By: #### 2 4317-0 #### [facility] [address] [place] [address] Platelets (Bld) [#/Vol] 352 10*3/uL Normal 142-424 [facility] Comment on above: Performed By: #### 2 4317-0 #### [facility] [address] [place] [address] RBC (Bld) [#/Vol] 5.06 10*6/uL Normal 4.30-5.70 [facility] Comment on above: Performed By: #### 2 4317-0 #### [facility] ([facility] [address] [place] [address] WBC (Bld) [#/Vol] 6.8 10*3/uL Normal 4.6-10.2 [facility] Comment on above: Performed By: #### 2 4317-0 #### [facility] [address] [place] [address] XR CHEST 1 VIEWon 04-04-2021 XR CHEST 1 VIEW EXAMINATION TYPE: XR CHEST 1 VIEW DATE OF EXAM : 04/04/2021 10:08 PM HISTORY: pain COMPARISON: 04/04/2021, 1632 FINDINGS: Exam is compromised by poor inspiratory result. cardiac silhouette mildly enlarged. Lungs are grossly clear. No pneumothorax. Faint visualization of right-sided rib fracture, better shown on prior rib films. IMPRESSION: Known right-sided rib fracture. Otherwise no acute findings. -------- FINAL REPORT -------- Dictated By: Umang Aguilera Dictated Date: 04/04/2021 22:13 Assigned Physician: Umang Aguilera Reviewed and Electronically Signed By: Umang Aguilera Signed Date: 04/04/2021 22:15 Workstation ID: [id number] Transcribed By: Self Edit Transcribed Date: 04/04/2021 22:13 Normal [facility] XR RIBS W CHEST 3+ VIEWS RIG HTon 04-04-2021 XR RIBS W CHEST 3+ VIEWS RIGHT EXAMINATION TYPE: XR RIBS W CHEST 5 VIEWS RIGHT DATE OF EXAM : 04/04/2021 4:35 PM HISTORY: Dyspnea. Fell into a tree, thinks ribs are fractured, alcohol intoxication. COMPARISON: NONE FINDINGS: Frontal chest: The lung volumes are diminished. There is mild elevation of the right hemidiaphragm. There is some heterogeneous opacity in the left lower lobe. No pneumothorax or significant pleural effusion. Mild cardiomegaly. The mediastinal contours are suboptimally visualized. No gross widening of the mediastinum. Right RIBS: There are acute fractures of the posterior margin of the right 9th and 10th ribs. IMPRESSION: 1. Acute fractures of the posterior margin of the right 9th and 10th ribs. No pneumothorax. 2. Heterogeneous opacity in the left lower lung likely due to pneumonia. Recommend follow-up to complete resolution. 3. Mild cardiomegaly. -------- FINAL REPORT -------- Dictated By: Young Cantu Dictated Date: 04/04/2021 17:43 Assigned Physician: Young Cantu Reviewed and Electronically Signed By: Young Cantu Signed Date: 04/04/2021 17:46 Workstation ID: [id number] Transcribed By: Self Edit Transcribed Date: 04/04/2021 17:43 Normal [facility] Chlamydia/Gonorrhoeae Amplif ied RNAOrdered By: Eileen Wright on 04-02-2021 C. trachomatis rRNA KARIN+probe Ql (Unsp spec) Negative Negative [facility] N. gonorrhoeae rRNA KARIN+probe Ql (Urethra) Negative Negative [facility] No Panel Informationon 04-02 Interpretation and review of laboratory results Normal [facility] Trichomonas vaginalis Amplif ied RNAon 04-02-2021 T. vaginalis rRNA KARIN+probe Ql (Unsp spec) Negative Negative [facility] Basic metabolic 2000 panelOr dered By: Ciaran Briones on 04-01-2021 Anion gap [Moles/Vol] 15 mmol/L 10 - 2 0 mmol/L [facility] Calcium [Mass/Vol] 8.5 mg/dL 8.4 - 10. 2 mg/dL [facility] Chloride [Moles/Vol] 105 mmol/L 98 - 10 8 mmol/L [facility] Creatinine [Mass/Vol] 0.95 mg/dL 0.50 - 1.30 [facility] GFR/1.73 sq M.predicted CKD-EPI (S/P/Bld) [Vol rate/Area] 102 >=60 mL/min/1.73 m2 [facility] Glucose [Mass/Vol] 110 mg/dL High 65 - 99 mg/dL [facility] HCO3 [Moles/Vol] 23 mmol/L 21 - 32 mmol/L [facility] Interpretation and review of laboratory results Abnormal [facility] Potassium [Moles/Vol] 3.9 mmol/L 3.5 - 5.1 mmol/L [facility] Sodium [Moles/Vol] 139 mmol/L 135 - 145 mmol/L [facility] Urea nitrogen [Mass/Vol] 13 mg/dL 8 - 25 mg/dL [facility] Urea nitrogen/Creatinine [Mass ratio] 13.7 mg/mg [facility] The eGFR should be u sed for monitoring renal function only and not for medication dosing. [facility] CBC panel Auto (Bld)on 04-01 Erythrocyte distribution width (RBC) [Entitic vol] 12.8 % 11.6 - 14.8 % [facility] Hematocrit (Bld) [Volume fraction] 39.7 % Low 41.0 - 53.0 % [facility] Hemoglobin (Bld) [Mass/Vol] 13.8 g/dL 13.5 - 17.5 g/dL [facility] Interpretation and review of laboratory results Abnormal [facility] MCH (RBC) [Entitic mass] 29.8 pg 26.0 - 34.0 pg [facility] MCHC (RBC) [Mass/Vol] 34.8 g/dL 31.0 - 37.0 g/dL [facility] MCV (RBC) [Entitic vol] 85.7 fL 80.0 - 100.0 fL [facility] Nucleated RBC (Bld) [#/Vol] 0.00 10*3/uL [facility] Nucleated RBC/100 WBC (Bld) [Ratio] 0.0 % [facility] Platelet mean volume (Bld) [Entitic vol] 8.7 fL Low 9.4 - 12.4 fL [facility] Platelets (Bld) [#/Vol] 269 10*3/uL [facility] RBC (Bld) [#/Vol] 4.63 10*6/uL [facility] e[facility] WBC (Bld) [#/Vol] 6.60 10*3/uL [facility] NO MBon 04-01-2021 CK [Catalytic activity/Vol] 70 U/L 60 - 225 U/L [facility] Lactate [Moles/Vol]on 2021 Interpretation and review of laboratory results Normal [facility] Lactic Acid, Plasmaon 2021 Lactate [Moles/Vol] 1.4 mmol/L 0.6 - 2. 0 mmol/L [facility] Magnesiumon 04-01-2021 Magnesium [Mass/Vol] 2.0 mg/dL 1.6 - 2 .4 mg/dL [facility] No Panel Informationon 04-01 Interpretation and review of laboratory results Normal [facility] Phosphoruson 04-01-2021 Phosphate [Mass/Vol] 3.5 mg/dL 2.7 - 4 .5 mg/dL [facility] Alcohol, Medicalon Ethanol [Mass/Vol] 128.0 mg/dL High <10.0 [facility] Blood Gas, Venous with Full PanelOrdered By: Joshua Rg on 03-31-2021 Base excess Calc (BldV) [Moles/Vol] -1.5000 mmol/L [facility] Calcium.ionized [Mass/Vol] 4.3 mg/dL Low 4.5 - 5.3 mg/dL [facility] Carboxyhemoglobin (BldA) [Mass fraction] 2.2 High <=1.5 % of total Hb [facility] Comment on above: Reference Ranges: [facility] Non-smokers: <1.5% Smokers: 1.5-5.0% Heavy Smokers: 5.0-9.0% CO2 (BldV) [Partial pressure] 40.5 mm[Hg] Low [facility] Glucose [Mass/Vol] 88 mg/dL 65 - 99 mg/dL [facility] HCO3 (Bld) [Moles/Vol] 23.1 mmol/L Low 24.0 - 28.0 mmol/L [facility] Hematocrit (BldA) [Volume fraction] 44.4 % 41.0 - 53.0 % [facility] Hemoglobin (Bld) [Mass/Vol] 14.5 g/dL 13.5 - 17.5 g/dL [facility] Interpretation and review of laboratory results Abnormal [facility] Lactate [Moles/Vol] 2.3 mmol/L High 0.6 - 2. 0 mmol/L [facility] Methemoglobin (BldA) [Mass fraction] 0.6 % 0.0 - 2.0 % [facility] Oxygen (BldV) [Partial pressure] 36 mm[Hg] [facility] Oxygen saturation in Venous blood 65.4 % 40.0 - 70.0 % [facility] Oxyhemoglobin (BldA) [Mass fraction] 63.5 % No established reference range [facility] pH (BldV) 7.37 [pH] [facility] Potassium [Moles/Vol] 3.6 mmol/L 3.5 - 5.1 mmol/L [facility] Sodium [Moles/Vol] 147 mmol/L High 135 - 145 mmol/L [facility] Blood type and Indirect anti body screen panel (Bld)on 03-31-2021 ABO and Rh group Nom (Bld) Blood group A Rh(D) positive [facility] Blood group antibody screen Ql Negative [facility] Specimen Expires 04/03/2021 23:59 EST [facility] COVID-19, MolecularOrdered B y: Nati Holloway on 03-31-2021 SARS-CoV-2 (COVID-19) RNA KARIN+probe Ql (Resp) Not detected Not Detected [facility] CT Angiogram Neckon 03-31-19 22 No acute trauma of the major arterial vessels of the neck. Workstation ID: [id number] [employer] EXAMINATION: CTA OF THE NECK 03/31/2021 1:33 am TECHNIQUE: CTA of the neck was performed with the administration of intravenous contrast. Multiplanar reformatted images are provided for review. MIP images are provided for review. Stenosis of the internal carotid arteries measured using NASCET criteria. Dose modulation, iterative reconstruction, and/or weight based adjustment of the mA/kV was utilized to reduce the radiation dose to as low as reasonably achievable. COMPARISON: None. HISTORY: ORDERING SYSTEM PROVIDED HISTORY: trauma; TECHNOLOGIST PROVIDED HISTORY: Injury/Trauma Acuity: Acute Reason for Exam: neck trauma Type of Encounter: Initial Mechanism of Injury: jump 20 feet FINDINGS: AORTIC ARCH/ARCH VESSELS: No dissection or arterial injury. No significant stenosis of the brachiocephalic or subclavian arteries. CAROTID ARTERIES: No dissection, arterial injury, or hemodynamically significant stenosis by NASCET criteria. VERTEBRAL ARTERIES: No dissection, arterial injury, or significant stenosis. The left vertebral artery originates directly from the aortic arch. SOFT TISSUES: No acute abnormality. No active extravasation. BONES: Please see separate maxillofacial and/or cervical spine CT reports. [employer] Karely Lopez M D - 03/31/2021 EXAMINATION: CTA OF THE NECK 03/31/2021 1:33 am TECHNIQUE: CTA of the neck was performed with the administration of intravenous contrast. Multiplanar reformatted images are provided for review. MIP images are provided for review. Stenosis of the internal carotid arteries measured using NASCET criteria. Dose modulation, iterative reconstruction, and/or weight based adjustment of the mA/kV was utilized to reduce the radiation dose to as low as reasonably achievable. COMPARISON: None. HISTORY: ORDERING SYSTEM PROVIDED HISTORY: trauma; TECHNOLOGIST PROVIDED HISTORY: Injury/Trauma Acuity: Acute Reason for Exam: neck trauma Type of Encounter: Initial Mechanism of Injury: jump 20 feet FINDINGS: AORTIC ARCH/ARCH VESSELS: No dissection or arterial injury. No significant stenosis of the brachiocephalic or subclavian arteries. CAROTID ARTERIES: No dissection, arterial injury, or hemodynamically significant stenosis by NASCET criteria. VERTEBRAL ARTERIES: No dissection, arterial injury, or significant stenosis. The left vertebral artery originates directly from the aortic arch. SOFT TISSUES: No acute abnormality. No active extravasation. BONES: Please see separate maxillofacial and/or cervical spine CT reports. IMPRESSION: No acute trauma of the major arterial vessels of the neck. Workstation ID: [id number] [facility] Radiology Study observation (narrative) [facility] CT Angiogram NeckOrdered By: Karely Lopez on 03-31-2021 [facility] Work Phone: Ethanol [Mass/Vol]on 022 Interpretation and review of laboratory results Abnormal [facility] MR Cervical Spine With And W ithout Contraston 03-31-2021 Radiology Study observation (narrative) [facility] MR Lumbar Spine With And Wit hout Contraston 03-31-2021 Radiology Study observation (narrative) [facility] MR Thoracic Spine With And W ithout Contraston 03-31-2021 Radiology Study observation (narrative) [facility] No Panel Informationon 03-31 No acute or concerning abnormality of the cervical, thoracic and lumbar spine. Scattered degenerative changes most pronounced at C5-6 with resulting mild central canal stenosis with cord deformity but no cord signal abnormality. Workstation ID: [id number] [facility] EXAMINATION: MRI OF THE CERVICAL SPINE WITHOUT AND WITH CONTRAST; MRI OF THE THORACIC SPINE WITHOUT AND WITH CONTRAST; MRI OF THE LUMBAR SPINE WITHOUT AND WITH CONTRAST 03/31/2021 TECHNIQUE: Multiplanar multisequence MRI of the cervical spine was performed without and with the administration of intravenous contrast.; Multiplanar multisequence MRI of the thoracic spine was performed without and with the administration of intravenous contrast.; Multiplanar multisequence MRI of the lumbar spine was performed without and with the administration of intravenous contrast. COMPARISON: None. HISTORY: ORDERING SYSTEM PROVIDED HISTORY: RUE & RLE weakness, jump from building, IVDU; TECHNOLOGIST PROVIDED HISTORY: Injury/Trauma Acuity: Acute Reason for Exam: RUE & RLE weakness, jump from building, IVDU Type of Encounter: Initial Mechanism of Injury: fall ORDERING SYSTEM PROVIDED DIAGNOSIS CODES: T14.91XA Suicide attempt (HCC) T14.90XA Trauma S22.41XA Closed fracture of multiple ribs of right side, initial encounter R20.2 Arm paresthesia, right; ORDERING SYSTEM PROVIDED HISTORY: RLE & RUE weakness, jump from building, IVDU; TECHNOLOGIST PROVIDED HISTORY: Injury/Trauma Acuity: Acute Reason for Exam: RUE & RLE weakness, jump from building, IVDU Type of Encounter: Initial Mechanism of Injury: fall ORDERING SYSTEM PROVIDED DIAGNOSIS CODES: T14.91XA Suicide attempt (HCC) T14.90XA Trauma S22.41XA Closed fracture of multiple ribs of right side, initial encounter R20.2 Arm paresthesia, right FINDINGS: BONES/ALIGNMENT: Cervical, thoracic and lumbar spine alignment are normal as are vertebral body heights and marrow signal with the exception of degenerative endplate change at the superior endplate of C6. There is no acute or concerning enhancement. SPINAL CORD: No abnormal cord signal or enhancement is seen. SOFT TISSUES: No abnormal enhancement of the cervical, thoracic and lumbar spine. No paraspinal mass identified. The bladder is markedly distended. DEGENERATIVE CHANGES: Scattered degenerative changes are present. In the cervical spine, C5-6 disc space narrowing and prominent posterior disc bulge with chronic appearing posterior central protrusion result in mild central canal stenosis with cord deformity but no cord signal abnormality. No significant foraminal stenosis. In the thoracic spine, tiny chronic appearing T5-6 and T8-9 right paracentral disc protrusions are noted. There is no resulting stenosis or impingement. In the lumbar spine at L1-2, L2-3 and L4-5, there is mild disc space narrowing and posterior disc bulge without stenosis. Karely Jeter M D - 03/31/2021 EXAMINATION: MRI OF THE CERVICAL SPINE WITHOUT AND WITH CONTRAST; MRI OF THE THORACIC SPINE WITHOUT AND WITH CONTRAST; MRI OF THE LUMBAR SPINE WITHOUT AND WITH CONTRAST 03/31/2021 TECHNIQUE: Multiplanar multisequence MRI of the cervical spine was performed without and with the administration of intravenous contrast.; Multiplanar multisequence MRI of the thoracic spine was performed without and with the administration of intravenous contrast.; Multiplanar multisequence MRI of the lumbar spine was performed without and with the administration of intravenous contrast. COMPARISON: None. HISTORY: ORDERING SYSTEM PROVIDED HISTORY: RUE & RLE weakness, jump from building, IVDU; TECHNOLOGIST PROVIDED HISTORY: Injury/Trauma Acuity: Acute Reason for Exam: RUE & RLE weakness, jump from building, IVDU Type of Encounter: Initial Mechanism of Injury: fall ORDERING SYSTEM PROVIDED DIAGNOSIS CODES: T14.91XA Suicide attempt (HCC) T14.90XA Trauma S22.41XA Closed fracture of multiple ribs of right side, initial encounter R20.2 Arm paresthesia, right; ORDERING SYSTEM PROVIDED HISTORY: RLE & RUE weakness, jump from building, IVDU; TECHNOLOGIST PROVIDED HISTORY: Injury/Trauma Acuity: Acute Reason for Exam: RUE & RLE weakness, jump from building, IVDU Type of Encounter: Initial Mechanism of Injury: fall ORDERING SYSTEM PROVIDED DIAGNOSIS CODES: T14.91XA Suicide attempt (HCC) T14.90XA Trauma S22.41XA Closed fracture of multiple ribs of right side, initial encounter R20.2 Arm paresthesia, right FINDINGS: BONES/ALIGNMENT: Cervical, thoracic and lumbar spine alignment are normal as are vertebral body heights and marrow signal with the exception of degenerative endplate change at the superior endplate of C6. There is no acute or concerning enhancement. SPINAL CORD: No abnormal cord signal or enhancement is seen. SOFT TISSUES: No abnormal enhancement of the cervical, thoracic and lumbar spine. No paraspinal mass identified. The bladder is markedly distended. DEGENERATIVE CHANGES: Scattered degenerative changes are present. In the cervical spine, C5-6 disc space narrowing and prominent posterior disc bulge with chronic appearing posterior central protrusion result in mild central canal stenosis with cord deformity but no cord signal abnormality. No significant foraminal stenosis. In the thoracic spine, tiny chronic appearing T5-6 and T8-9 right paracentral disc protrusions are noted. There is no resulting stenosis or impingement. In the lumbar spine at L1-2, L2-3 and L4-5, there is mild disc space narrowing and posterior disc bulge without stenosis. IMPRESSION: No acute or concerning abnormality of the cervical, thoracic and lumbar spine. Scattered degenerative changes most pronounced at C5-6 with resulting mild central canal stenosis with cord deformity but no cord signal abnormality. Workstation ID: [id number] [facility] SARS-CoV-2 (COVID-19) RNA NA A+probe Ql (Resp)Ordered By: Nati Holloway on 03-31-2021 Interpretation and review of laboratory results Normal [facility] This test was perfor med under the FDA's Emergency Use Authorization (EUA). Testing was performed using the [employer] SARS-CoV-2 RT-PCR & Influenza A/B Nucleic Acid Test on the Frank Billie System. This test has not been approved for use in asymptomatic patients and its performance in this patient population has not been evaluated. Negative results do not rule out the presence of SARS-CoV-2, influenza A, and/or influenza B. Fact sheets for the EUA can be found at the following links: For Healthcare Providers: https://www.fda.gov/medi a/457931/download For Patients: https://www.fda.gov/medi a/203387/download [facility] Vital Signs Date Time Vital Sign Value Performing Clinician Facility 07-12-2023 09:44-0400 Diastolic blood pressure 87 mm[Hg] Mila Natarajan-Uberti DO Work Phone: [facility] 07-12-2023 09:44-0400 Heart rate 84 /min Mila Natarajan-Uberti DO Work Phone: [facility] 07-12-2023 09:44-0400 Systolic blood pressure 151 mm[Hg] Mila Vaishnavici-Uberti DO Work Phone: [facility] 07-12-2023 09:11-0400 Body temperature 97 [degF] Mila Rigginsci-Uberti DO Work Phone: [facility] 07-12-2023 09:11-0400 Respiratory rate 18 /min Mila Ose[facility]eraerti DO [facility] 07-12-2023 09:11-0400 SaO2% (BldA) [Mass fraction] 96 % Mila Osegueraerti DO Work Phone: [facility] 07-12-2023 01:32-0400 Body height 180.3 cm Lizette Davis MD [facility] 07-12-2023 01:32-0400 Body mass index (BMI) [Ratio] 32.08 kg/m2 Lizette Davis MD [facility] 07-12-2023 01:32-0400 Body temperature 97.5 [degF] Lizette Davis MD [facility] 07-12-2023 01:32-0400 Body weight 104.33 kg Lizette Davis MD [facility] 07-12-2023 01:32-0400 Diastolic blood pressure 102 mm[Hg] Lizette Davis MD [facility] 07-12-2023 01:32-0400 Heart rate 80 /min Lizette Davis MD [facility] 07-12-2023 01:32-0400 Respiratory rate 16 /min Lizette Davis MD [facility] 07-12-2023 01:32-0400 SaO2% (BldA) [Mass fraction] 95 % Lizette Davis MD [facility] 07-12-2023 01:32-0400 Systolic blood pressure 133 mm[Hg] Lizette Davis MD [facility] 07-11-2023 20:15-0400 Body height 182.9 cm Uriah Elise DO [facility] Phone: [facility] 07-11-2023 20:15-0400 Body mass index (BMI) [Ratio] 31.19 kg/m2 Uriah Elise DO Work Phone: [facility] [employer] [facility] 07-11-2023 20:15-0400 Body temperature 98.1 [degF] Uriah Elise DO [facility] 07-11-2023 20:15-0400 Body weight 104.33 kg Uriah Elise DO Work Phone: [facility] 07-11-2023 20:15-0400 Diastolic blood pressure 96 mm[Hg] Uriah Elise DO [facility] 07-11-2023 20:15-0400 Heart rate 100 /min Uriah Elise DO [facility] 07-11-2023 20:15-0400 Respiratory rate 16 /min Uriah Elise DO Work Phone[facility] 07-11-2023 20:15-0400 SaO2% (BldA) [Mass fraction] 93 % Uriah Elise DO Work Phone: [facility] 07-11-2023 20:15-0400 Systolic blood pressure 145 mm[Hg] Uriah Elise DO [facility] 07-07-2023 09:45-0400 Body temperature 97.5 [degF] Lizette Davis MD [facility] 07-07-2023 09:45-0400 Diastolic blood pressure 83 mm[Hg] Lizette Davis MD [facility] 07-07-2023 09:45-0400 Heart rate 98 /min Lizette Davis MD [facility] 07-07-2023 09:45-0400 Respiratory rate 18 /min Lizette Davis MD [facility] 07-07-2023 09:45-0400 SaO2% (BldA) [Mass fraction] 100 % Lizette Davis MD [facility] 07-07-2023 09:45-0400 Systolic blood pressure 128 mm[Hg] Lizette Davis MD [facility] 07-01-2023 12:16-0400 Diastolic blood pressure 98 mm[Hg] Lizette Davis MD [facility] 07-01-2023 12:16-0400 Heart rate 95 /min Lizette Davis MD [facility] 07-01-2023 12:16-0400 Respiratory rate 19 /min Lizette Davis MD [facility] 07-01-2023 12:16-0400 SaO2% (BldA) [Mass fraction] 98 % Lizette Davis MD [facility] 07-01-2023 12:16-0400 Systolic blood pressure 175 mm[Hg] Lizette Davis MD [facility] 06-30-2023 22:02-0400 Body temperature 98.2 [degF] Lizette Davis MD [facility] 06-29-2023 08:24-0400 Body temperature 97.81 [degF] Yady Castañeda DO Work Phone: [facility] 06-29-2023 08:24-0400 Diastolic blood pressure 87 mm[Hg] Yady Castañeda DO [facility] Phone: [facility] 06-29-2023 08:24-0400 Heart rate 76 /min Yady Castañeda DO Work Phone: [facility] 06-29-2023 08:24-0400 Respiratory rate 18 /min Yady Castañeda DO Work Phone: [facility] 06-29-2023 08:24-0400 SaO2% (BldA) [Mass fraction] 97 % Yady Castañeda DO [facility] Phone: [facility] 06-29-2023 08:24-0400 Systolic blood pressure 127 mm[Hg] Yady Castañeda DO Work Phone: [facility] 06-28-2023 19:55-0400 Body height 180.3 cm Yady Castañeda DO Work Phone: [employer] 06-28-2023 19:55-0400 Body mass index (BMI) [Ratio] 32.08 kg/m2 Yady Castañeda DO Work Phone: [facility] [employer] [facility] 06-28-2023 19:55-0400 Body weight 104.33 kg Yady Castañeda DO Work Phone: [facility] [employer] 06-05-2023 12:56-0400 Diastolic blood pressure 72 mm[Hg] [facility] DO Work Phone: [facility] 06-05-2023 12:56-0400 Heart rate 83 /min [facility] DO Work Phone: [facility] 06-05-2023 12:56-0400 Respiratory rate 18 /min [facility] DO Work Phone: [facility] 06-05-2023 12:56-0400 SaO2% (BldA) [Mass fraction] 95 % [facility] DO Work Phone: [facility] 06-05-2023 12:56-0400 Systolic blood pressure 104 mm[Hg] [facility] DO Work Phone: [facility] 06-05-2023 11:23-0400 Body temperature 97.7 [degF] [facility] DO Work Phone: [facility] 05-17-2023 00:31-0400 Diastolic blood pressure 79 mm[Hg] Leyla Shiley DO Work Phone: [employer] 05-17-2023 00:31-0400 Heart rate 87 /min Leyla Shiley DO Work Phone: [facility] 05-17-2023 00:31-0400 Systolic blood pressure 152 mm[Hg] Leyla Shiley DO Work Phone: [facility] 05-17-2023 00:28-0400 Body temperature 97.9 [degF] Leyla Shiley DO Work Phone: [facility] 05-17-2023 00:28-0400 Respiratory rate 18 /min Leyla Shiley DO Work Phone: [facility] 05-17-2023 00:28-0400 SaO2% (BldA) [Mass fraction] 95 % Leyla Shiley DO Work Phone: [facility] 05-09-2023 06:03-0400 Diastolic blood pressure 75 mm[Hg] Sheryl Mcgraw MD Work Phone: [facility] 05-09-2023 06:03-0400 Systolic blood pressure 112 mm[Hg] Sheryl Mcgraw MD Work Phone: [facility] 05-09-2023 05:31-0400 Heart rate 90 /min Sheryl Mcgraw MD Work Phone: [facility] 05-09-2023 05:31-0400 SaO2% (BldA) [Mass fraction] 94 % Sheryl Mcgraw MD Work Phone: [facility] 05-08-2023 20:32-0400 Respiratory rate 22 /min Sheryl Mcgraw MD Work Phone: [facility] 05-08-2023 14:47-0400 Body temperature 97 [degF] Sheryl Mcgraw MD Work Phone: [facility] 02-16-2023 09:05-0500 Diastolic blood pressure 87 mm[Hg] Abdulkadir Siesel DO Work Phone: [facility] 02-16-2023 09:05-0500 Heart rate 94 /min Abdulkadir Siesel DO Work Phone: [facility] 02-16-2023 09:05-0500 Respiratory rate 18 /min Abdulkadir Siesel DO Work Phone: [facility] 02-16-2023 09:05-0500 SaO2% (BldA) [Mass fraction] 94 % Abdulkadir Whitakersel DO Work Phone: [facility] 02-16-2023 09:05-0500 Systolic blood pressure 134 mm[Hg] Abdulkadir Whitakersel DO Work Phone: [facility] 02-15-2023 15:07-0500 Body temperature 97.7 [degF] Abdulkadir Whitakersel DO Work Phone: [facility] 02-12-2023 13:00-0500 Body mass index (BMI) [Ratio] 32.07 kg/m2 Abdulkadir Whitakersel DO Work Phone: [facility] 02-12-2023 13:00-0500 Body weight 104.3 kg Abdulkadir Whitakersel DO Work Phone: [facility] Comment on above: from 01/08/2023 02-10-2023 14:26-0500 Body temperature 97.81 [degF] Evelyn Sanchez MD Work Phone: [facility] 02-10-2023 14:26-0500 Diastolic blood pressure 92 mm[Hg] Evelyn Sanchez MD Work Phone: [facility] 02-10-2023 14:26-0500 Heart rate 98 /min Evelyn Sanchez MD Work Phone: [facility] 02-10-2023 14:26-0500 Respiratory rate 18 /min Evelyn Sanchez MD Work Phone: [facility] 02-10-2023 14:26-0500 SaO2% (BldA) [Mass fraction] 96 % Evelyn Sanchez MD Work Phone: [facility] 02-10-2023 14:26-0500 Systolic blood pressure 139 mm[Hg] Evelyn Sanchez MD Work Phone: [facility] 02-08-2023 08:00-0500 Body temperature 99.1 [degF] Jourdan Davis DO Work Phone: [facility] 02-08-2023 08:00-0500 Diastolic blood pressure 80 mm[Hg] Jourdan Davis DO Work Phone: [facility] 02-08-2023 08:00-0500 Heart rate 95 /min Jourdan Davis DO Work Phone: [facility] 02-08-2023 08:00-0500 Respiratory rate 16 /min Jourdan Davis DO Work Phone: [facility] 02-08-2023 08:00-0500 SaO2% (BldA) [Mass fraction] 97 % Jourdan Davis DO Work Phone: [facility] 02-08-2023 08:00-0500 Systolic blood pressure 126 mm[Hg] Jourdan Davis DO Work Phone: [facility] 02-07-2023 23:25-0500 Body height 180.3 cm Jourdan Davis DO Work Phone: [facility] 02-07-2023 23:25-0500 Body mass index (BMI) [Ratio] 32.08 kg/m2 Jourdan Davis DO Work Phone: [facility] 02-07-2023 23:25-0500 Body weight 104.33 kg Jourdan Davis DO Work Phone: [facility] 01-16-2023 11:27-0500 Body temperature 97.7 [degF] Ashley Bernabe DO Work Phone: [facility] 01-16-2023 11:27-0500 Diastolic blood pressure 98 mm[Hg] Ashley Bernabe DO Work Phone: [facility] 01-16-2023 11:27-0500 Heart rate 79 /min Ashley Bernabe DO Work Phone: [facility] 01-16-2023 11:27-0500 Respiratory rate 16 /min Ashley Bernabe DO Work Phone: [facility] 01-16-2023 11:27-0500 SaO2% (BldA) [Mass fraction] 99 % Ashley Bernabe DO [facility] Phone: [facility] 01-16-2023 11:27-0500 Systolic blood pressure 142 mm[Hg] Ashley Bernabe DO Work Phone: [facility] 01-08-2023 19:23-0500 Body temperature 98.2 [degF] Lexi Lira MD Work Phone: [facility] 01-08-2023 19:23-0500 Diastolic blood pressure 70 mm[Hg] Lexi Lira MD Work Phone: [facility] 01-08-2023 19:23-0500 Heart rate 105 /min Lexi Lira MD Work Phone: [facility] 01-08-2023 19:23-0500 Respiratory rate 18 /min Lexi Lira MD Work Phone: [facility] 01-08-2023 19:23-0500 SaO2% (BldA) [Mass fraction] 98 % Lexi Lira MD Work Phone: [facility] 01-08-2023 19:23-0500 Systolic blood pressure 157 mm[Hg] Lexi Lira MD Work Phone: [facility] 01-08-2023 11:56-0500 Body height 180.3 cm Lexi Lira MD Work Phone: [facility] 01-08-2023 11:56-0500 Body mass index (BMI) [Ratio] 32.08 kg/m2 Lexi Lira MD Work Phone: [facility] 01-08-2023 11:56-0500 Body weight 104.33 kg Lexi Lira MD Work Phone: [facility] 01-08-2023 07:30-0500 Body temperature 98.1 [degF] Shelley Beltrán MD Work Phone: [facility] 01-08-2023 07:30-0500 Diastolic blood pressure 79 mm[Hg] Shelley Beltrán MD Work Phone: [facility] 01-08-2023 07:30-0500 Heart rate 82 /min Shelley Beltrán MD Work Phone: [facility] 01-08-2023 07:30-0500 Respiratory rate 16 /min Shelley Beltrán MD Work Phone: [facility] 01-08-2023 07:30-0500 SaO2% (BldA) [Mass fraction] 99 % Shelley Beltrán MD Work Phone: [facility] 01-08-2023 07:30-0500 Systolic blood pressure 141 mm[Hg] Shelley Beltrán MD Work Phone: [facility] 01-07-2023 19:27-0500 Body mass index (BMI) [Ratio] 32.08 kg/m2 Shelley Beltrán MD Work Phone: [facility] 01-07-2023 19:27-0500 Body weight 104.33 kg Shelley Beltrán MD Work Phone: [facility] 01-07-2023 08:32-0500 Body temperature 97.59 [degF] Liliam Thais DO Work Phone: [facility] 01-07-2023 08:32-0500 Diastolic blood pressure 54 mm[Hg] Liliam Thais DO Work Phone: [facility] 01-07-2023 08:32-0500 Heart rate 59 /min Liliam Thais DO Work Phone: [facility] 01-07-2023 08:32-0500 Respiratory rate 16 /min Liliam Thais DO Work Phone: [facility] 01-07-2023 08:32-0500 Systolic blood pressure 97 mm[Hg] Liliam Thais DO Work Phone: [facility] 01-07-2023 05:11-0500 SaO2% (BldA) [Mass fraction] 96 % Liliam Thais DO Work Phone: [facility] 01-05-2023 04:05-0500 Body mass index (BMI) [Ratio] 32.08 kg/m2 Liliam Gaviria DO Work Phone: [facility] 01-05-2023 04:05-0500 Body weight 104.33 kg Liliam Gaviria DO Work Phone: [facility] 01-03-2023 23:03-0500 Body height 180.3 cm Conor Young MD Work Phone: [facility] 01-03-2023 23:03-0500 Body mass index (BMI) [Ratio] 32.08 kg/m2 Conor Young MD Work Phone: [facility] 01-03-2023 23:03-0500 Body temperature 98.2 [degF] Conor Young MD Work Phone: [facility] 01-03-2023 23:03-0500 Body weight 104.33 kg Conor Young MD Work Phone: [facility] 01-03-2023 23:03-0500 Diastolic blood pressure 66 mm[Hg] Conor Young MD Work Phone: [facility] 01-03-2023 23:03-0500 Heart rate 85 /min Conor Young MD Work Phone: [facility] 01-03-2023 23:03-0500 Respiratory rate 16 /min Conor Young MD Work Phone: [facility] 01-03-2023 23:03-0500 SaO2% (BldA) [Mass fraction] 97 % Conor Young MD Work Phone: [facility] 01-03-2023 23:03-0500 Systolic blood pressure 115 mm[Hg] Conor Young MD Work Phone: [facility] 11-02-2022 01:11-0400 Body mass index (BMI) [Ratio] 32.08 kg/m2 Reymundo Ambriz MD Work Phone: [facility] 11-02-2022 01:11-0400 Body temperature 98.01 [degF] Reymundo Ambriz MD Work Phone: [facility] 11-02-2022 01:11-0400 Body weight 104.33 kg Reymundo Ambriz MD Work Phone: [facility] 11-02-2022 01:11-0400 Diastolic blood pressure 93 mm[Hg] Reymundo Ambriz MD Work Phone: [facility] 11-02-2022 01:11-0400 Heart rate 93 /min Reymundo Ambriz MD Work Phone: [facility] 11-02-2022 01:11-0400 Respiratory rate 20 /min Reymundo Ambriz MD Work Phone: [facility] 11-02-2022 01:11-0400 SaO2% (BldA) [Mass fraction] 94 % Reymundo Ambriz MD Work Phone: [facility] 11-02-2022 01:11-0400 Systolic blood pressure 137 mm[Hg] Reymundo Ambriz MD Work Phone: [facility] 11-01-2022 22:36-0400 Body temperature 98.2 [degF] Chapis Barron MD Work Phone: [facility] 11-01-2022 22:36-0400 Diastolic blood pressure 76 mm[Hg] Chapis Barron MD Work Phone: [facility] 11-01-2022 22:36-0400 Heart rate 98 /min Chapis Barron MD Work Phone: [facility] 11-01-2022 22:36-0400 Respiratory rate 20 /min Chapis Barron MD Work Phone: [facility] 11-01-2022 22:36-0400 SaO2% (BldA) [Mass fraction] 95 % Chapis Barron MD Work Phone: [facility] 11-01-2022 22:36-0400 Systolic blood pressure 131 mm[Hg] Chapis Barron MD Work Phone: [facility] 11-01-2022 19:34-0400 Body mass index (BMI) [Ratio] 32.08 kg/m2 Gema Limon MD Work Phone: [facility] 11-01-2022 19:34-0400 Body temperature 98.8 [degF] Gema Limon MD Work Phone: [facility] 11-01-2022 19:34-0400 Body weight 104.33 kg Gema Limon MD Work Phone: [facility] 11-01-2022 19:34-0400 Diastolic blood pressure 62 mm[Hg] Gema Limon MD Work Phone: [facility] 11-01-2022 19:34-0400 Heart rate 97 /min Gema Limon MD Work Phone: [facility] 11-01-2022 19:34-0400 Respiratory rate 18 /min Gema Limon MD Work Phone: [facility] 11-01-2022 19:34-0400 SaO2% (BldA) [Mass fraction] 95 % Gema Limon MD Work Phone: [facility] 11-01-2022 19:34-0400 Systolic blood pressure 118 mm[Hg] Gema Limon MD Work Phone: [facility] 10-31-2022 08:02-0400 Diastolic blood pressure 66 mm[Hg] Uriah Saenz MD Work Phone: [facility] 10-31-2022 08:02-0400 Heart rate 76 /min Uriah Saenz MD Work Phone: [facility] 10-31-2022 08:02-0400 Respiratory rate 16 /min Uriah Saenz MD Work Phone: [facility] 10-31-2022 08:02-0400 SaO2% (BldA) [Mass fraction] 98 % Uriah Saenz MD Work Phone: [facility] 10-31-2022 08:02-0400 Systolic blood pressure 114 mm[Hg] Uriah Saenz MD Work Phone: [facility] 10-31-2022 05:30-0400 Body height 180.3 cm Uriah Saenz MD Work Phone: [facility] 10-31-2022 05:30-0400 Body mass index (BMI) [Ratio] 32.08 kg/m2 Uriah Saenz MD Work Phone: [facility] 10-31-2022 05:30-0400 Body weight 104.33 kg Uriah Saenz MD Work Phone: [facility] 10-31-2022 03:44-0400 Body temperature 98.01 [degF] Uriah Saenz MD Work Phone: [facility] 10-30-2022 21:30-0400 Diastolic blood pressure 74 mm[Hg] Chapis Barron MD Work Phone: [facility] 10-30-2022 21:30-0400 Heart rate 109 /min Chapsi Barron MD Work Phone: [facility] 10-30-2022 21:30-0400 Respiratory rate 20 /min Chapis Barron MD Work Phone: [facility] 10-30-2022 21:30-0400 SaO2% (BldA) [Mass fraction] 95 % Chapis Barron MD Work Phone: [facility] 10-30-2022 21:30-0400 Systolic blood pressure 132 mm[Hg] Chapis Barron MD Work Phone: [facility] 10-30-2022 18:53-0400 Body mass index (BMI) [Ratio] 32.08 kg/m2 Chapis Barron MD Work Phone: [facility] 10-30-2022 18:53-0400 Body weight 104.33 kg Chapis Barron MD Work Phone: [facility] 10-30-2022 18:51-0400 Body temperature 98.49 [degF] Chapis Barron MD Work Phone: [facility] 09-17-2022 19:39-0400 Body mass index (BMI) [Ratio] 32.78 kg/m2 Jaylon Kwan DO Work Phone: [facility] 09-17-2022 19:39-0400 Body temperature 98.1 [degF] Jaylon Aguilerason DO Work Phone: [facility] 09-17-2022 19:39-0400 Body weight 106.59 kg Jaylon Kwan DO Work Phone: [facility] 09-17-2022 19:39-0400 Diastolic blood pressure 77 mm[Hg] Jaylon Kwan DO Work Phone: [facility] 09-17-2022 19:39-0400 Heart rate 89 /min Jaylon Kwan DO Work Phone: [facility] 09-17-2022 19:39-0400 Respiratory rate 17 /min Jaylon Kwan DO Work Phone: [facility] 09-17-2022 19:39-0400 SaO2% (BldA) [Mass fraction] 94 % Jaylon Kwan DO Work Phone: [facility] 09-17-2022 19:39-0400 Systolic blood pressure 127 mm[Hg] Jaylon Kwan DO Work Phone: [facility] 09-12-2022 12:09-0400 Diastolic blood pressure 63 mm[Hg] Sera Barrera MD Work Phone: [facility] 09-12-2022 12:09-0400 Heart rate 68 /min Sera Barrera MD Work Phone: [facility] 09-12-2022 12:09-0400 Respiratory rate 16 /min Sera Barrera MD Work Phone: [facility] 09-12-2022 12:09-0400 SaO2% (BldA) [Mass fraction] 97 % Sera Barrera MD Work Phone: [facility] 09-12-2022 12:09-0400 Systolic blood pressure 122 mm[Hg] Sear Barrera MD Work Phone: [facility] 09-12-2022 02:29-0400 Body mass index (BMI) [Ratio] 32.78 kg/m2 Sera Barrera MD Work Phone: [facility] 09-12-2022 02:29-0400 Body temperature 98.1 [degF] Sera Barrera MD Work Phone: [facility] 09-12-2022 02:29-0400 Body weight 106.59 kg Sera Barrera MD Work Phone: [facility] 09-05-2022 22:20-0400 Body height 180.3 cm Jennifer Suggs MD Work Phone: [facility] 09-05-2022 22:20-0400 Body mass index (BMI) [Ratio] 33.47 kg/m2 Jennifer Suggs MD Work Phone: [facility] 09-05-2022 22:20-0400 Body weight 108.86 kg Jennifer Suggs MD Work Phone: [facility] 09-05-2022 22:12-0400 Body temperature 98.71 [degF] Jennifer Suggs MD Work Phone: [facility] 09-05-2022 22:12-0400 Diastolic blood pressure 70 mm[Hg] Jennifer Suggs MD Work Phone: [facility] 09-05-2022 22:12-0400 Heart rate 98 /min Jennifer Suggs MD Work Phone: [facility] 09-05-2022 22:12-0400 Respiratory rate 17 /min Jennifer Suggs MD Work Phone: [facility] 09-05-2022 22:12-0400 SaO2% (BldA) [Mass fraction] 94 % Jennifer Suggs MD Work Phone: [facility] 09-05-2022 22:12-0400 Systolic blood pressure 111 mm[Hg] Jennifer Suggs MD Work Phone: [facility] 07-14-2022 00:16-0400 Body temperature 98.2 [degF] Xiomara Ryan MD Work Phone: [facility] 07-14-2022 00:16-0400 Body weight 109 kg Xiomara Ryan MD Work Phone: [facility] 07-14-2022 00:16-0400 Diastolic blood pressure 90 mm[Hg] Xiomara Ryna MD Work Phone: [facility] 07-14-2022 00:16-0400 Heart rate 96 /min Xiomara Ryan MD Work Phone: [facility] 07-14-2022 00:16-0400 Respiratory rate 18 /min Xiomara Ryan MD Work Phone: [facility] 07-14-2022 00:16-0400 SaO2% (BldA) [Mass fraction] 97 % Xiomara Ryan MD Work Phone: [facility] 07-14-2022 00:16-0400 Systolic blood pressure 132 mm[Hg] Xiomara Ryan MD Work Phone: [facility] 07-11-2022 03:50-0400 Body height 180.3 cm Mela Norwood MD Work Phone: [facility] 07-11-2022 03:50-0400 Body mass index (BMI) [Ratio] 33.47 kg/m2 Mela Norwood MD Work Phone: [facility] 07-11-2022 03:50-0400 Body temperature 98.6 [degF] Mela Norwood MD Work Phone: [facility] 07-11-2022 03:50-0400 Body weight 108.86 kg [facility]ela [facility] 07-11-2022 03:50-0400 Diastolic blood pressure 75 mm[Hg] [facility]ela [facility] 07-11-2022 03:50-0400 Heart rate 77 /min [facility]wood [facility] [employer] 07-11-2022 03:50-0400 Respiratory rate 19 /min [facility]ela Norwood MD [facility] [employer] 07-11-2022 03:50-0400 SaO2% (BldA) [Mass fraction] 93 % [facility]ela Norwood [facility] [employer] 07-11-2022 03:50-0400 Systolic blood pressure 124 mm[Hg] [facility] 06-07-2022 21:33-0400 Body temperature 98.29 [degF] Augustus Galan MD Work Phone: [facility] 06-07-2022 21:33-0400 Diastolic blood pressure 75 mm[Hg] Augustus Galan MD Work Phone: [facility] 06-07-2022 21:33-0400 Heart rate 98 /min Augustus Galan MD Work Phone: [facility] 06-07-2022 21:33-0400 Respiratory rate 18 /min Augustus Galan MD Work Phone: [facility] 06-07-2022 21:33-0400 SaO2% (BldA) [Mass fraction] 95 % Augustus Galan MD Work Phone: [facility] 06-07-2022 21:33-0400 Systolic blood pressure 131 mm[Hg] Augustus Galan MD Work Phone: [facility] 06-07-2022 21:30-0400 Body height 180.3 cm Augustus Galan MD Work Phone: [facility] 05-28-2022 09:37-0400 Body height 180.3 cm Tracey Al V, [employer] Work Phone: [facility] 05-28-2022 09:37-0400 Body mass index (BMI) [Ratio] 33.47 kg/m2 Tracey Al V, [employer] Work Phone: [facility] 05-28-2022 09:37-0400 Body temperature 97.81 [degF] Tracey Al V, [employer] Work Phone: [facility] 05-28-2022 09:37-0400 Body weight 108.86 kg Tracey Al V, [employer] Work Phone: [facility] 05-28-2022 09:37-0400 Diastolic blood pressure 80 mm[Hg] Tracey Al V, [employer] Work Phone: [facility] 05-28-2022 09:37-0400 Heart rate 64 /min Tracey Al V, [employer] Work Phone: [facility] 05-28-2022 09:37-0400 Respiratory rate 16 /min Tracey Al V, [employer] Work Phone: [facility] 05-28-2022 09:37-0400 Systolic blood pressure 127 mm[Hg] Tracey Al V, [employer] Work Phone: [facility] 05-19-2022 06:41-0400 Body height 180.3 cm Onel Allison MD Work Phone: [facility] 05-19-2022 06:41-0400 Body mass index (BMI) [Ratio] 33.47 kg/m2 Onel Allison MD Work Phone: [facility] 05-19-2022 06:41-0400 Body temperature 98.29 [degF] Onel Allison MD Work Phone: [facility] 05-19-2022 06:41-0400 Body weight 108.86 kg Onel Allison MD Work Phone: [facility] 05-19-2022 06:41-0400 Diastolic blood pressure 95 mm[Hg] Onel Allison MD Work Phone: [facility] 05-19-2022 06:41-0400 Heart rate 89 /min Onel Allison MD Work Phone: [facility] 05-19-2022 06:41-0400 Respiratory rate 25 /min Onel Allison MD Work Phone: [facility] 05-19-2022 06:41-0400 SaO2% (BldA) [Mass fraction] 99 % Onel Allison MD Work Phone: [facility] 05-19-2022 06:41-0400 Systolic blood pressure 155 mm[Hg] Onel Allison MD Work Phone: [facility] 05-14-2022 05:29-0400 Diastolic blood pressure 75 mm[Hg] Kayla Wang MD Work Phone: [facility] 05-14-2022 05:29-0400 Heart rate 92 /min Kayla Wang MD Work Phone: [facility] 05-14-2022 05:29-0400 Respiratory rate 16 /min Kayla Wang MD Work Phone: [facility] 05-14-2022 05:29-0400 SaO2% (BldA) [Mass fraction] 98 % Kayla Wang MD Work Phone: [facility] 05-14-2022 05:29-0400 Systolic blood pressure 132 mm[Hg] Kayla Wang MD Work Phone: [facility] 05-13-2022 23:35-0400 Body temperature 98.01 [degF] Kayla Wang MD Work Phone: [facility] 05-13-2022 21:02-0400 Body height 180.3 cm Lamine Sheriff MD Work Phone: [facility] 05-13-2022 21:00-0400 Body temperature 97.81 [degF] Lamine Sheriff MD Work Phone: [facility] 05-13-2022 21:00-0400 Diastolic blood pressure 95 mm[Hg] Lamine Sheriff MD Work Phone: [facility] 05-13-2022 21:00-0400 Heart rate 100 /min Lamine Sheriff MD Work Phone: [facility] 05-13-2022 21:00-0400 Respiratory rate 21 /min Lamine Sheriff MD Work Phone: [facility] 05-13-2022 21:00-0400 SaO2% (BldA) [Mass fraction] 98 % Lamine Sheriff MD Work Phone: [facility] 05-13-2022 21:00-0400 Systolic blood pressure 154 mm[Hg] Lamine Sheriff MD Work Phone: [facility] 05-12-2022 03:26-0400 Body temperature 97.81 [degF] Jena Massey DO Work Phone: [facility] 05-12-2022 03:26-0400 Diastolic blood pressure 57 mm[Hg] Jena Massey DO Work Phone: [facility] 05-12-2022 03:26-0400 Heart rate 89 /min Jena Massey DO Work Phone: [facility] 05-12-2022 03:26-0400 Respiratory rate 12 /min Jena Massey DO Work Phone: [facility] 05-12-2022 03:26-0400 SaO2% (BldA) [Mass fraction] 97 % Jena Massey DO Work Phone: [facility] 05-12-2022 03:26-0400 Systolic blood pressure 125 mm[Hg] Jena Massey DO Work Phone: [facility] 03-03-2022 03:43-0500 Body height 180.3 cm Jamin Hough MD Work Phone: [employer] 03-03-2022 03:43-0500 Body mass index (BMI) [Ratio] 33.47 kg/m2 Jamin Hough MD Work Phone: [employer] 03-03-2022 03:43-0500 Body temperature 98.1 [degF] Jamin Hough MD Work Phone: [employer] 03-03-2022 03:43-0500 Body weight 108.86 kg Jamin Hough MD Work Phone: [employer] 03-03-2022 03:43-0500 Diastolic blood pressure 92 mm[Hg] Jamin Hough MD Work Phone: [employer] 03-03-2022 03:43-0500 Heart rate 80 /min Jamin Hough MD Work Phone: [employer] 03-03-2022 03:43-0500 Respiratory rate 18 /min Jamin Hough MD Work Phone: [employer] 03-03-2022 03:43-0500 SaO2% (BldA) [Mass fraction] 93 % Jamin Hough MD Work Phone: [employer] 03-03-2022 03:43-0500 Systolic blood pressure 125 mm[Hg] Jamin Hough MD Work Phone: [employer] 12-04-2021 00:14-0400 Body height 180.3 cm Oc Jacobson MD Work Phone: [employer] 12-04-2021 00:14-0400 Body mass index (BMI) [Ratio] 32.08 kg/m2 Oc Jacobson MD Work Phone: [employer] 12-04-2021 00:14-0400 Body weight 104.33 kg Oc Jacobson MD Work Phone: [employer] 12-04-2021 00:13-0400 Body temperature 99.3 [degF] Oc Jacobson MD Work Phone: [employer] 12-04-2021 00:13-0400 Diastolic blood pressure 81 mm[Hg] Oc Jacobson MD Work Phone: [employer] 12-04-2021 00:13-0400 Heart rate 102 /min Oc Jacobson MD Work Phone: [employer] 12-04-2021 00:13-0400 Respiratory rate 18 /min Oc Jacobson MD Work Phone: [employer] 12-04-2021 00:13-0400 Systolic blood pressure 117 mm[Hg] Oc Jacobson MD Work Phone: [employer] 12-03-2021 19:08-0400 Body height 180.3 cm Sandra Trivedi MD Work Phone: [employer] 12-03-2021 19:08-0400 Body mass index (BMI) [Ratio] 31.38 kg/m2 Sandra Trivedi MD Work Phone: [employer] 12-03-2021 19:08-0400 Body temperature 97.5 [degF] Sandra Trivedi MD Work Phone: [employer] 12-03-2021 19:08-0400 Body weight 102.06 kg Sandra Trivedi MD Work Phone: [employer] 12-03-2021 19:08-0400 Diastolic blood pressure 75 mm[Hg] Sandra Trivedi MD Work Phone: [employer] 12-03-2021 19:08-0400 Heart rate 78 /min Sandra Trivedi MD Work Phone: [facility] 12-03-2021 19:08-0400 Respiratory rate 18 /min Sandra Trivedi MD Work Phone: [facility] 12-03-2021 19:08-0400 SaO2% (BldA) [Mass fraction] 100 % Sandra Trivedi MD Work Phone: [facility] 12-03-2021 19:08-0400 Systolic blood pressure 129 mm[Hg] Sandra Trivedi MD Work Phone: [facility] 11-15-2021 05:00-0400 Diastolic blood pressure 81 mm[Hg] Balbir Harclerode DO Work Phone: [facility] 11-15-2021 05:00-0400 Heart rate 76 /min Balbir Harclerode DO Work Phone: [facility] 11-15-2021 05:00-0400 Respiratory rate 18 /min Balbri Harclerode DO Work Phone: [facility] 11-15-2021 05:00-0400 SaO2% (BldA) [Mass fraction] 96 % Balbir Harclerode DO Work Phone: [facility] 11-15-2021 05:00-0400 Systolic blood pressure 131 mm[Hg] Balbir Harclerode DO Work Phone: [facility] 11-14-2021 23:34-0400 Body temperature 98.01 [degF] Balbir Harclerode DO Work Phone: [facility] 10-29-2021 01:17-0400 Diastolic blood pressure 70 mm[Hg] Carito Walsh MD Work Phone: [facility] 10-29-2021 01:17-0400 Heart rate 92 /min Cairto Walsh MD Work Phone: [facility] 10-29-2021 01:17-0400 Respiratory rate 16 /min Carito Walsh MD Work Phone: [facility] 10-29-2021 01:17-0400 SaO2% (BldA) [Mass fraction] 97 % Carito Walsh MD Work Phone: 0(387)880-881744 [place] [address] 10-29-2021 01:17-0400 Systolic blood pressure 121 mm[Hg] Carito Walsh MD Work Phone: 2(505)889-270344 [place] [address] 10-28-2021 22:08-0400 Body height 180.3 cm Carito Walsh MD Work Phone: 3(891)340-934344 [place] [address] 10-28-2021 22:07-0400 Body temperature 99.3 [degF] Carito Walsh MD Work Phone: 3(744)538-412144 [place] [address] 08-23-2021 08:00-0400 Body temperature 97.7 [degF] Halina Ayon MD Work Phone: 0(343)834-639020 [place] [address] 08-23-2021 08:00-0400 Diastolic blood pressure 79 mm[Hg] Halina Ayon MD Work Phone: 9(048)365-460720 [place] [address] 08-23-2021 08:00-0400 Heart rate 71 /min Halnia Ayon MD Work Phone: 7(037)898-306320 [place] [address] 08-23-2021 08:00-0400 Respiratory rate 18 /min Halina Ayon MD Work Phone: 3(250)544-292420 [place] [address] 08-23-2021 08:00-0400 SaO2% (BldA) [Mass fraction] 92 % Halina Ayon MD Work Phone: 4(793)158-523420 [place] [address] 08-23-2021 08:00-0400 Systolic blood pressure 142 mm[Hg] Halina Ayon MD Work Phone: 8(589)459-082620 [place] [address] 08-22-2021 01:03-0400 Body mass index (BMI) [Ratio] 45.1 kg/m2 Halina Ayon MD Work Phone: 3(623)002-433038 [address] 08-22-2021 01:03-0400 Body weight 109.41 kg Halina Ayon MD Work Phone: 7(204)872-368838 [address] 08-21-2021 02:22-0400 Body height 155.8 cm Halina Ayon MD Work Phone: 7(464)300-986320 [place] [address] 05-01-2021 07:59-0400 Body temperature 97.7 [degF] Kayla Wang MD Work Phone: 3(180)921-221620 [place] [address] 05-01-2021 07:59-0400 Diastolic blood pressure 74 mm[Hg] Kayla Wang MD Work Phone: 4(174)082-772538 [address] 05-01-2021 07:59-0400 Heart rate 52 /min Kayla Wang MD Work Phone: 7(875)260-052538 [address] 05-01-2021 07:59-0400 Respiratory rate 18 /min Kayla Wang MD Work Phone: 5(295)523-941538 [address] 05-01-2021 07:59-0400 SaO2% (BldA) [Mass fraction] 97 % Kayla Wang MD Work Phone: 7(667)236-013238 [address] 05-01-2021 07:59-0400 Systolic blood pressure 122 mm[Hg] Kayla Wang MD Work Phone: 5(087)178-125938 [address] 04-29-2021 11:19-0400 Body height 180.3 cm Kayla Wang MD Work Phone: 6(257)684-247620 [place] [address] 04-29-2021 11:19-0400 Body mass index (BMI) [Ratio] 32.08 kg/m2 Kayla Wang MD Work Phone: 3(117)632-794238 [address] 04-29-2021 11:19-0400 Body weight 104.33 kg Kayla Wang MD Work Phone: [facility] 04-02-2021 11:28-0500 Body temperature 97.9 [degF] Topher Chris DO Work Phone: [facility] 04-02-2021 11:28-0500 Diastolic blood pressure 86 mm[Hg] Topher Chris DO Work Phone: [facility] 04-02-2021 11:28-0500 Heart rate 63 /min Topher Chris DO Work Phone: [facility] 04-02-2021 11:28-0500 Respiratory rate 16 /min Topher Chris DO Work Phone: [facility] 04-02-2021 11:28-0500 SaO2% (BldA) [Mass fraction] 97 % Topher Chris DO Work Phone: [facility] 04-02-2021 11:28-0500 Systolic blood pressure 135 mm[Hg] Topher Chris DO Work Phone: [facility] 03-31-2021 01:24-0500 Body height 182.9 cm Topher Chris DO Work Phone: [facility] 03-31-2021 01:24-0500 Body mass index (BMI) [Ratio] 29.84 kg/m2 Topher Chris DO Work Phone: [facility] 03-31-2021 01:24-0500 Body weight 99.79 kg Topher Chris DO Work Phone: [facility] Encounters Encounter Date Encounter Type Care Provider Facility Start: 08-31-2023 ambulatory RYLAN ASHRAF [facility] Start: 07-28-2023 Emergency department patient visit Facility:[facility] Start: 07-17-2023 Admission to [facility] Int[facility] Start: 07-17-2023 ambulatory [facility] Comment on above: Psychiatric Problem Start: 07-16-2023 Emergency department patient visit Facility:[facility] Start: 07-15-2023 End: 07-15-2023 Emergency department patient visit Facility:[facility] Start: 07-14-2023 Emergency department patient visit Facility:[facility] Start: 07-12-2023 End: 07-12-2023 Emergency department patient visit Mila Kamara DO Work Phone: [facility] Emergency Department Comment on above: Acute alcoholic into xication without complication (HCC) (Primary Dx) Start: 07-12-2023 End: 07-12-2023 Emergency department patient visit Lizette Davis MD [facility] Emergency Department Comment on above: Alcohol abuse (Prima ry Dx); Atypical chest pain Start: 07-11-2023 End: 07-11-2023 Emergency department patient visit Uriah Elise DO Work Phone: [facility] Emergency Department Comment on above: Fall, initial encoun ter (Primary Dx) Start: 07-07-2023 Emergency department patient visit Physician No [facility] Start: 07-06-2023 Emergency department patient visit Physician No [facility] Start: 07-06-2023 End: 07-07-2023 Emergency department patient visit Lizette Davis MD [facility] Emergency Department Comment on above: Injury of head, init ial encounter (Primary Dx); Acute alcoholic intoxication without complication (HCC) Start: 07-01-2023 End: 07-03-2023 Emergency department patient visit LIZETTE DAVIS [facility] Start: 07-01-2023 End: 07-01-2023 Emergency department patient visit Lizette Davis MD [facility] Emergency Department Comment on above: Alcohol abuse (Prima ry Dx); Injury of head, initial encounter; Pain of upper abdomen Start: 06-30-2023 Emergency department patient visit Physician No [facility] Start: 06-30-2023 End: 06-30-2023 Evaluation and management of inpatient RADHA SMITH [facility] Start: 06-29-2023 End: 06-29-2023 Emergency department patient visit LUCHO Joe MD [facility] Start: 06-28-2023 Emergency department patient visit Physician No [facility] Start: 06-28-2023 End: 06-29-2023 Emergency department patient visit Yady Castañeda DO Work Phone: [facility] Emergency Department Comment on above: Alcoholism (HCC) (Pr imary Dx); Hepatomegaly; Liver lesion Start: 06-05-2023 Emergency department patient visit Physician No [facility] Start: 06-05-2023 End: 06-05-2023 Emergency department patient visit Renee Hedrick DO Work Phone: [facility] Emergency Department Comment on above: Acute alcoholic into xication without complication (HCC) (Primary Dx); Alcohol abuse Start: 06-05-2023 Emergency department patient visit Physician No [facility] Start: 06-05-2023 End: 06-05-2023 Emergency department patient visit Physician No [facility] Start: 05-22-2023 End: 05-23-2023 Emergency department patient visit LEYLA [facility] Start: 05-17-2023 Emergency department patient visit Physician No [facility] Start: 05-17-2023 End: 05-17-2023 Emergency department patient visit Leyla Duong DO Work Phone: [facility] Emergency Department Start: 05-15-2023 End: 05-19-2023 Evaluation and management of inpatient Physician No [facility] Start: 05-15-2023 Emergency department patient visit SARA HILL [facility] Start: 05-15-2023 End: 05-16-2023 Evaluation and management of inpatient LALO INGRAM [facility] Start: 05-08-2023 Emergency department patient visit SHERYL MCGRAW 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 Start: 05-06-2023 Emergency department patient visit Physician No [facility] Start: 04-22-2023 End: 04-22-2023 Emergency department patient visit GOSIA LARSON Facility:[id number] Start: 04-22-2023 End: 04-22-2023 Emergency department patient visit TOM FIGUEROA Facility:[id number] Start: 04-20-2023 End: 04-21-2023 Emergency department patient visit TOM FIGUEROA Facility:[id number] Start: 04-09-2023 End: 04-09-2023 Emergency department patient visit GOSIA COTTER Facility:[id number] Start: 04-07-2023 End: 04-08-2023 Emergency department patient visit DIANA KEEN Facility:[id number] Start: 04-06-2023 End: 04-06-2023 Emergency department patient visit GOSIA COTTER Facility:[id number] Start: 03-18-2023 End: 03-18-2023 Emergency department patient visit JERRY PHILLIPS Facility:[id number] Start: 03-18-2023 End: 03-18-2023 Emergency department patient visit TOM FIGUEROA Facility:[id number] Start: 03-17-2023 End: 03-17-2023 Emergency department patient visit GOSIA LARSON Facility:[id number] Start: 03-16-2023 End: 03-17-2023 Emergency department patient visit GOSIA LARSON Facility:[id number] Start: 03-16-2023 End: 03-16-2023 Emergency department patient visit GOSIA COTTER Facility:[id number] Start: 03-15-2023 End: 03-15-2023 Emergency department patient visit JERRY PHILLIPS Facility:[id number] Start: 03-14-2023 End: 03-14-2023 Emergency department patient visit DIANA KEEN Facility:[id number] Start: 03-13-2023 End: 03-13-2023 Emergency department patient visit DIANA KEEN Facility:[id number] Start: 03-06-2023 End: 03-06-2023 Emergency department patient visit BALDO Garcia GABRIEL [facility] Start: 02-12-2023 End: 02-16-2023 Evaluation and management of inpatient ABDULKADIR VERMA [facility] Start: 02-11-2023 End: 02-16-2023 Evaluation and management of inpatient Abdulkadir Verma DO Work Phone: [facility] Comment on above: Alcohol intoxication , uncomplicated (HC CODE) Start: 02-10-2023 End: 02-10-2023 Emergency department patient visit EVELYN SANCHEZ [facility] Start: 02-10-2023 End: 02-10-2023 Emergency department patient visit Evelyn Sanchez MD Work Phone: [facility] Start: 02-08-2023 End: 02-08-2023 Emergency department patient [facility] Start: 02-07-2023 End: 02-08-2023 Emergency department patient visit [facility] Work Phone: [facility] Start: 01-16-2023 End: 01-16-2023 Emergency department patient visit ASHLEY Perez BERNABE [facility] Start: 01-16-2023 End: 01-16-2023 Emergency department patient visit Ashley A Florecita DO Work Phone: [facility] Start: 01-13-2023 End: 01-13-2023 Emergency department patient visit CHAPIS BARRON [facility] Start: 01-08-2023 End: 01-08-2023 Emergency department patient visit LEXI LIRA [facility] Start: 01-08-2023 End: 01-08-2023 Emergency department patient visit Lexi Lira MD Work Phone: [facility] Start: 01-07-2023 End: 01-08-2023 Emergency department patient visit SHELLEY BELTRÁN [facility] Start: 01-07-2023 End: 01-08-2023 Emergency department patient visit Shelley Beltrán MD Work Phone: [facility] Start: 01-05-2023 End: 01-07-2023 ambulatory NATHALIE JOSIAH GONSALES [facility] Start: 01-05-2023 End: 01-07-2023 Emergency department patient visit Liliam Gaviria DO Work Phone: [facility] Comment on above: Alcohol abuse with w ithdrawal (HC CODE) Start: 01-04-2023 End: 01-04-2023 Emergency department patient visit CONOR BUTLERENMA [facility] Start: 01-03-2023 End: 01-04-2023 Emergency department patient visit Conor Young MD Work Phone: [facility] Start: 11-13-2022 End: 11-13-2022 Emergency department patient visit Karely Craig [facility] Start: 11-02-2022 End: 11-02-2022 Emergency department patient visit REYMUNDO AMBRIZ [facility] Start: 11-02-2022 End: 11-02-2022 Emergency department patient visit Reymundo Ambriz MD Work Phone: [facility] Start: 11-01-2022 End: 11-01-2022 Emergency department patient visit Chapis Barron MD Work Phone: [facility] Start: 11-01-2022 End: 11-01-2022 Emergency department patient visit GEMA LIMON [facility] Start: 11-01-2022 End: 11-01-2022 Emergency department patient visit Gema Limon MD Work Phone: [facility] Start: 11-01-2022 End: 11-01-2022 Emergency department patient visit JOURDAN TRINH [facility] Start: 10-31-2022 End: 10-31-2022 Emergency department patient visit URIAH SAENZ [facility] Start: 10-31-2022 End: 10-31-2022 Emergency department patient visit Uriah Saenz MD Work Phone: [facility] Start: 10-30-2022 End: 10-31-2022 Emergency department patient visit CHAPIS BARRON [facility] Start: 10-30-2022 End: 10-30-2022 Emergency department patient visit Chapis Barron MD Work Phone: [facility] Start: 10-30-2022 End: 10-30-2022 [facility] Start: 10-15-2022 End: 10-16-2022 Emergency department patient visit KARELY CRAIG [facility] Start: 09-17-2022 End: 09-18-2022 Emergency department patient visit JAYLON Cotter KWAN [facility] Start: 09-17-2022 End: 09-17-2022 Emergency department patient visit Jaylon Kwan DO Work Phone: [facility] Start: 09-12-2022 End: 09-12-2022 Emergency department patient visit Sera Barrera MD Work Phone: [facility] Start: 09-12-2022 End: 09-12-2022 Emergency department patient visit SERA BARRERA [facility] Start: 09-12-2022 End: 09-12-2022 Emergency department patient visit JAE JENSENAKU [facility] Start: 09-05-2022 End: 09-06-2022 Emergency department patient visit JENNIFER SUGGS [facility] Start: 09-05-2022 End: 09-06-2022 Emergency department patient visit Jennifer Suggs MD Work Phone: [facility] Start: 09-02-2022 End: 09-02-2022 Emergency department patient visit LISSETTE BOWESR [facility] Start: 08-30-2022 End: 08-31-2022 Emergency department patient visit ISSA MINERPATH~[id number] MEDEPALLI MEDEPALLI XAVIER~[id number] [facility] Start: 07-18-2022 End: 07-18-2022 Emergency department patient visit RENNY ANTHONY [facility] Start: 07-18-2022 End: 07-18-2022 Emergency department patient visit GEMA ORTEGA [facility] Start: 07-14-2022 End: 07-14-2022 Emergency department patient visit LETY CHANDLERJESSICA ARCE [facility] Start: 07-14-2022 End: 07-14-2022 Emergency department patient visit CHAPIS BARRON [facility] Start: 07-14-2022 End: 07-14-2022 Emergency department patient visit XIOMARA RYAN [facility] Start: 07-13-2022 End: 07-14-2022 Emergency department patient visit Xiomara Ryan MD Work Phone: [facility] Emergency Department Comment on above: Alcohol intoxication (Primary Dx) Start: 07-11-2022 End: 07-11-2022 Emergency department patient visit Mela Norwood MD Work Phone: [facility] Emergency Department Comment on above: Alcohol use disorder (Primary Dx); Homelessness Start: 06-07-2022 End: 06-08-2022 Emergency department patient visit PROVIDER NOT IN SYSTEM Facility:[facility] Start: 06-07-2022 End: 06-08-2022 Emergency department patient visit Augustus Galan MD Work Phone: [facility] Emergency Department Start: 06-06-2022 End: 06-06-2022 ambulatory PHYSICIAN [facility] Start: 05-30-2022 End: 05-30-2022 Emergency department patient visit PHYSICIAN [facility] Start: 05-29-2022 End: 05-30-2022 ambulatory VIRGINIA GALEANO [facility] Start: 05-28-2022 End: 05-28-2022 Office outpatient new 30 minutes Gabrielle Lynch NP Work Phone: [facility] Comment on above: Alcohol use disorder , severe, in early remission, dependence (CMS/HCC) (Primary Dx) Start: 05-28-2022 End: 05-28-2022 ambulatory NO PCP PHYSICIAN [facility] Start: 05-28-2022 End: 05-28-2022 Office outpatient visit 15 minutes Tracey Al NP Work Phone: [facility] Comment on above: Screening due (Prima ry Dx); Tobacco dependence; Primary insomnia; Seasonal allergies Start: 05-28-2022 End: 05-28-2022 Patient encounter procedure Tracey Al V VISCERA WASHER Work Phone: [facility] Start: 05-25-2022 End: 05-26-2022 Emergency department patient visit PHYSICIAN [facility] Start: 05-19-2022 ambulatory [facility] Start: 05-19-2022 End: 05-19-2022 Emergency department patient visit NO PCP PHYSICIAN [facility] Start: 05-19-2022 End: 05-19-2022 Emergency department patient visit Onel Allison MD Work Phone: [facility] Emergency Room Comment on above: Alcohol dependence w ith unspecified alcohol-induced disorder (CMS/HCC) (Primary Dx) Start: 05-19-2022 End: 05-19-2022 Evaluation and management of inpatient Oenl Allison MD Work Phone: [facility] Start: 05-18-2022 End: 05-19-2022 Emergency department patient visit KARELY JAVED [facility] Start: 05-14-2022 End: 05-14-2022 Emergency department patient visit Kayla Wang MD Work Phone: [facility] Emergency Department Start: 05-13-2022 End: 05-13-2022 Emergency department patient visit Lamine Sheriff MD Work Phone: [facility] Emergency Department Start: 05-12-2022 End: 05-12-2022 Emergency department patient visit Jena Massey DO Work Phone: [facility] Emergency Department Start: 05-03-2022 End: 05-03-2022 Emergency department patient visit PROVIDER NOT IN SYSTEM Facility:[facility] Start: 04-28-2022 ambulatory SHERYL tovar:[facility] Start: 04-27-2022 End: 04-27-2022 Emergency department patient visit SHANNAN HANSEN Facility:[facility] Start: 04-24-2022 End: 04-24-2022 Emergency department patient visit LEONORA [facility] Start: 04-10-2022 End: 04-10-2022 Emergency department patient visit CARITO VILLEDA Facility:[facility] Start: 03-19-2022 End: 03-19-2022 ambulatory MANPerez GIRON Facility:[facility] Start: 03-04-2022 End: 03-04-2022 Emergency department patient visit [facility] Start: 03-04-2022 End: 03-04-2022 Emergency department patient visit [facility] Start: 03-03-2022 End: 03-03-2022 Emergency department patient visit NO PCP PHYSICIAN [facility] Start: 03-03-2022 End: 03-03-2022 Emergency department patient visit Jamin Hough MD Work Phone: [facility] Emergency Room Comment on above: Alcoholic intoxicati on without complication (CMS/HCC) (Primary Dx); Depression, unspecified depression type Start: 03-03-2022 End: 03-03-2022 Evaluation and management of inpatient Jamin Hough MD Work Phone: [facility] Start: 12-04-2021 End: 12-04-2021 Emergency department patient visit NO PCP PHYSICIAN [facility] Start: 12-04-2021 End: 12-04-2021 Emergency department patient visit Oc Jacobson MD Work Phone: [facility] Emergency Room Comment on above: Suicidal ideation (P rimary Dx) Start: 12-04-2021 End: 12-04-2021 Evaluation and management of inpatient Oc Jacobson MD Work Phone: [facility] Start: 12-03-2021 End: 12-03-2021 Emergency department patient visit NO PCP PHYSICIAN [facility] Start: 12-03-2021 End: 12-03-2021 Emergency department patient visit Sandra Trivedi MD Work Phone: [facility] Room Comment on above: Nausea and vomiting, unspecified vomiting type (Primary Dx) Start: 12-03-2021 End: 12-03-2021 Evaluation and management of inpatient Sandra Trivedi MD Work Phone: [facility] Start: 11-15-2021 End: 11-15-2021 Emergency department patient visit NO PCP PHYSICIAN [facility] Start: 11-14-2021 End: 11-15-2021 Emergency department patient visit Balbir Hyatt DO Work Phone: [facility] Emergency Room Comment on above: Alcoholic intoxicati on without complication (CMS/HCC) (Primary Dx) Start: 11-14-2021 End: 11-15-2021 Evaluation and management of inpatient Balbir Hyatt DO Work Phone: [facility] Emergency Room Start: 10-28-2021 End: 10-29-2021 Emergency department patient visit Carito Walsh MD Work Phone: [facility] Emergency Department Start: 10-20-2021 End: 10-20-2021 Emergency department patient visit [facility] Start: 10-19-2021 End: 10-19-2021 Emergency department patient visit PHYSICIAN [facility] Start: 10-15-2021 End: 10-15-2021 Emergency department patient visit PHYSICIAN [facility] Start: 10-14-2021 End: 10-14-2021 Emergency department patient visit PHYSICIAN [facility] Start: 08-25-2021 End: 08-26-2021 Emergency department patient visit HALINA [facility] Start: 08-20-2021 End: 08-23-2021 Evaluation and management of inpatient Halina Ayon MD Work Phone: [facility] Comment on above: Withdrawal syndrome Start: 07-30-2021 End: 08-03-2021 ambulatory [facility] Start: 04-25-2021 End: 05-01-2021 Evaluation and management of inpatient Kayla Wang MD Work Phone: [facility] Comment on above: Depression with suic idal ideation Start: 04-10-2021 End: 04-10-2021 Emergency department patient visit PHYSICIAN NICOLE [facility] Start: 04-04-2021 End: 04-07-2021 Emergency department patient visit NO PCP PHYSICIAN [facility] Start: 04-04-2021 End: 04-04-2021 Emergency department patient visit NO PCP PHYSICIAN [facility] Start: 04-04-2021 End: 04-04-2021 Emergency department patient visit NO PCP PHYSICIAN [facility] Start: 04-03-2021 ambulatory MARLENA MINAYA IVERSON [facility] Start: 03-31-2021 End: 04-02-2021 Evaluation and management of inpatient Topher Perez DO Work Phone: [facility] Trauma Procedures Date Procedure Procedure Detail Performing Clinician Start: 07-12-2023 Assay of ethanol Hang Melara MD Work Phone: Start: 07-12-2023 Comprehensive metabo lic panel Hang Melara MD Work Phone: Start: 07-12-2023 Ecg routine ecg w/le ast 12 lds w/i&r Hang Melara MD Work Phone: Start: 07-12-2023 Radiologic exam ches t single view Lizette Davis MD Start: 07-12-2023 Comprehensive metabo lic panel Lizette Davis MD Start: 07-12-2023 Drug screen, qualitate/multi Lizette Davis MD Start: 07-07-2023 Assay of ethanol Lizette Davis MD Start: 07-07-2023 Assay of ethanol Lizette Davis MD Start: 07-07-2023 Ct cervical spine w/ o contrast material Lizette Davis MD Start: 07-07-2023 Ct head/brain w/o co ntrast material Lizette Davis MD Start: 07-06-2023 Ct cervical spine w/ o contrast material Lizette Davis MD Start: 07-06-2023 Ct head/brain w/o co ntrast material Lizette Davis MD Start: 07-06-2023 Ecg routine ecg w/le ast 12 lds w/i&r Lizette Davis MD Start: 07-06-2023 Comprehensive metabo lic panel Lizette Davis MD Start: 07-06-2023 Drug screen, qualitate/multi Lizette Davis MD Start: 07-06-2023 Drug tst prsmv instr mnt chem analyzers pr Lizette Davis MD Start: 06-30-2023 Comprehensive metabo lic panel Lizette Davis MD Start: 06-30-2023 Drug screen, qualitate/multi Lizette Davis MD Start: 06-30-2023 Drug tst prsmv instr mnt chem analyzers pr Lizette Davis MD Start: 06-30-2023 Ecg routine ecg w/le ast 12 lds w/i&r Lizette Davis MD Start: 06-30-2023 Ct abdomen & pelvis w/o contrast material Lizette Davis MD Start: 06-30-2023 Ct cervical spine w/ o contrast material Lizette Davis MD Start: 06-30-2023 Ct head/brain w/o co ntrast material Lizette Davis MD Start: 06-30-2023 Radiologic exam ches t single view Lizette Davis MD Start: 06-29-2023 Drug tst prsmv instr mnt chem analyzers pr Anne Marie Garduno DO Work Phone: Start: 06-29-2023 Urnls dip stick/tabl et reagent auto microscopy Anne Marie Garduno DO Work Phone: Start: 06-28-2023 Assay of troponin quantitative Anne Marie Garduno DO Work Phone: Start: 06-28-2023 Drug screen, qualitate/multi Anne Marie Garduno DO Work Phone: Start: 06-28-2023 Ecg routine ecg w/le ast 12 lds w/i&r Anne Marie Garduno DO Work Phone: Start: 06-28-2023 Ct abdomen & pelvis w/contrast material Anne Marie Garduno DO Work Phone: Start: 06-28-2023 Radiologic exam ches t single view Anne Marie Garduno DO Work Phone: Start: 06-28-2023 Assay of lactate Kapil Garduno DO Work Phone: Start: 06-05-2023 Ct cervical spine w/ o contrast material Sera Gonzalez DO Work Phone: Start: 06-05-2023 Ct head/brain w/o co ntrast material Sera Gonzalez DO Work Phone: Start: 06-05-2023 Comprehensive metabo lic panel Sera Gonzalez DO Work Phone: Start: 06-05-2023 End: 06-05-2023 Drug assay valproic dipropylacetic acid total Renee Hedrick DO Work Phone: Start: 06-05-2023 Drug screen, qualitate/multi Sera Lisa DO Work Phone: Start: 05-09-2023 Assay of ethanol Sheryl Mcgraw MD Work Phone: Start: 05-08-2023 Assay of ethanol Ky Aguilera MD Work Phone: Start: 05-08-2023 Drug tst prsmv instr mnt chem analyzers pr date Lance A Beltran DO Work Phone: Start: 05-08-2023 Urnls dip stick/tabl et reagent auto microscopy Lance A Beltran DO Work Phone: Start: 05-08-2023 Assay of troponin quantitative Sheryl Mcgraw MD Work Phone: Start: 05-08-2023 Comprehensive metabo lic panel Lance A Beltran DO Work Phone: Start: 05-08-2023 Drug screen, qualitate/multi Lance Beltran DO Work Phone: Start: 05-08-2023 Ecg routine ecg w/le ast 12 lds i&r only Lance Beltran DO Work Phone: Start: 02-16-2023 Basic metabolic 1999 panel - Serum or Plasma John Duvall MD Work Phone: Start: 02-16-2023 Blood count complete automated John Duvall MD Work Phone: Start: 02-15-2023 Radex wrist complete minimum 3 views John Duvall MD Work Phone: Start: 02-13-2023 Basic metabolic 1999 panel - Serum or Plasma Pratibha Mohan APRN Work Phone: Start: 02-12-2023 End: 02-12-2023 Assay of glutamyltrase gamma Ashley Overton MD Work Phone: Start: 02-12-2023 Drug screen quantita tive alcohols Abdulkadir Verma DO Work Phone: Start: 02-12-2023 Basic metabolic 2000 panel - Serum or Plasma Abdulkadir Verma DO Work Phone: Start: 02-12-2023 Phosphate [Mass/volu me] in Serum or Plasma Ashley Overton MD Work Phone: Start: 02-12-2023 CBC W Auto Different ial panel - Blood Abdulkadir Verma DO Work Phone: Start: 02-12-2023 COMPLETE BLOOD COUNT WITH DIFFERENTIAL Abdulkadir Verma DO Work Phone: Start: 02-11-2023 EMS RUN SHEET Angelito quinones MD Work Phone (unformatted): Start: 02-10-2023 EMS RUN SHEET Angelito quinones MD Work Phone (unformatted): Start: 01-08-2023 DRUG SCREEN, URINE Juve Graham PA-C Work Phone: Start: 01-08-2023 Ct cervical spine w/ o contrast material Karely WHITE-Tigre Work Phone: Start: 01-08-2023 Ct head/brain w/o co ntrast material Karely WHITE-Tigre Work Phone: Start: 01-08-2023 Drug screen quantita tive alcohols Karely WHITE-C Work Phone: Start: 01-07-2023 Basic metabolic 2000 panel - Serum or Plasma Jose Eller MD Work Phone: Start: 01-07-2023 CBC W Auto Different ial panel - Blood Jose Eller MD Work Phone: Start: 01-07-2023 COMPLETE BLOOD COUNT WITH DIFFERENTIAL Jose Eller MD Work Phone: Start: 01-07-2023 Drug screen quantita tive alcohols Jose Eller MD Work Phone: Start: 01-07-2023 EMS RUN SHEET [facility] Dahiana quinones MD Work Phone (unformatted): [phone] Start: 01-07-2023 CBC W Auto Different ial panel - Blood Gema Gotti DO Work Phone: Start: 01-07-2023 COMPLETE BLOOD COUNT WITH DIFFERENTIAL Gema Gotti DO Work Phone: Start: 01-07-2023 Renal function panel Mi renee Gotti DO Work Phone: Start: 01-06-2023 PROCALCITONIN Gema Gotti DO Work Phone: Start: 01-05-2023 CHEMICAL URINALYSIS Kiran WHITE-C Work Phone: Start: 01-05-2023 DRUG SCREEN, URINE Ibis WHITE-C Work Phone: Start: 01-05-2023 Basic metabolic 2000 panel - Serum or Plasma Tasha WHITE-C Work Phone: Start: 01-05-2023 CBC W Auto Different ial panel - Blood Tasha Brown PA-C Work Phone: Start: 01-05-2023 COMPLETE BLOOD COUNT WITH DIFFERENTIAL Tasha Brown PA-C Work Phone: Start: 01-05-2023 Comprehensive metabo lic panel Uriah Lawler Rodrigo MCCOY Work Phone: Start: 01-05-2023 Drug screen quantita tive alcohols Tasha Brown PA-C Work Phone: Start: 01-05-2023 Phosphate [Mass/volu me] in Serum or Plasma Uriah Bucky Rodrigo MCCOY Work Phone: Start: 01-04-2023 Assay of troponin quantitative Kem Beltran MD Work Phone: Start: 01-04-2023 Basic metabolic 2000 panel - Serum or Plasma Kem Beltran MD Work Phone: Start: 01-04-2023 End: 01-04-2023 Bilirubin direct Kem Beltran MD Work Phone: Start: 01-04-2023 Drug screen quantita tive alcohols Kem Beltran MD Work Phone: Start: 01-04-2023 Radiologic exam ches t single view Kem Beltran MD Work Phone: Start: 01-04-2023 CBC W Auto Different ial panel - Blood Kem Beltran MD Work Phone: Start: 01-04-2023 CK (CPK), TOTAL Kem Beltran MD Work Phone: Start: 01-04-2023 COMPLETE BLOOD COUNT WITH DIFFERENTIAL Kem Beltran MD Work Phone: Start: 01-03-2023 Ecg routine ecg w/le ast 12 lds w/i&r Conor Young MD Work Phone: Start: 11-01-2022 Ct head/brain w/o co ntrast material Yu Vega Hillary PA-C Work Phone: Start: 10-31-2022 Drug screen quantita tive alcohols Uriah Saenz MD Work Phone: Start: 10-30-2022 Basic metabolic 2000 panel - Serum or Plasma Karely Graham PA-Qritiqr Work Phone: Start: 10-30-2022 Bilirubin direct Karely Perez Graham PA-Qritiqr Work Phone: Start: 10-30-2022 CBC W Auto Different ial panel - Blood Karely Todd Thuuz PA-C Work Phone: Start: 10-30-2022 COMPLETE BLOOD COUNT WITH DIFFERENTIAL Karely Graham Olapic-Qritiqr Work Phone: Start: 10-30-2022 Drug screen quantita tive alcohols Karely Todd Ryla Work Phone: Start: 09-17-2022 Drug screen quantita tive alcohols Onel Canada MD Work Phone: Start: 09-17-2022 EMS RUN SHEET Mv Nonst joni PICKARD Work Phone (unformatted): [phone] Start: 09-12-2022 End: 09-12-2022 Blood count complete automated Conor Park MD Work Phone: Start: 09-12-2022 CBC W Auto Different ial panel - Blood Conor Park MD Work Phone: Start: 09-12-2022 COMPLETE BLOOD COUNT WITH DIFFERENTIAL Conor Park MD Work Phone: Start: 09-12-2022 Phosphate [Mass/volu me] in Serum or Plasma Conor Park MD Work Phone: Start: 09-12-2022 Drug screen quantita tive alcohols Conor Park MD Work Phone: Start: 09-12-2022 Ecg routine ecg w/le ast 12 lds w/i&r Conor Park MD Work Phone: Start: 07-11-2022 Drug tst prsmv instr mnt chem analyzers pr date Mela Norwood MD Work Phone: Start: 07-11-2022 Urnls dip stick/tabl et rgnt auto w/o microscopy Mela Norwood MD Work Phone: Start: 07-11-2022 Assay of acetaminophen Mela Norwood MD Work Phone: Start: 07-11-2022 Assay of ethanol Mela Norwood MD Work Phone: Start: 07-11-2022 Assay of salicylate Remy Norwood MD Work Phone: Start: 07-11-2022 Comprehensive metabo lic panel Mela Norwood MD Work Phone: Start: 06-07-2022 ALCOHOL (ETHANOL),BLOOD Andrew Montes MD Work Phone: Start: 06-07-2022 EXTRA MICRO Augustus Zepeda MD Work Phone: Start: 06-07-2022 EXTRA TUBES Augustus Zepeda MD Work Phone: Start: 06-07-2022 End: 06-07-2022 Hepatic function panel Kina vega [employer] SERVIC[employer]S THERAPIST Work Phone: Start: 06-07-2022 LT BLUE TOP TUBE Augustus Galan MD Work Phone: Start: 06-07-2022 MINT GREEN TOP TUBE Melody Lucero MD Work Phone: Start: 05-28-2022 Gluc bld gluc mntr d ev cleared fda spec home use Tracey Al VISCERA WASHER Work Phone: Start: 05-19-2022 Comprehensive metabo lic panel Onel Allison MD Work Phone: Start: 05-19-2022 Drug tst prsmv instr mnt chem analyzers pr date Onel Allison MD Work Phone: Start: 05-19-2022 Ethanol [Mass/volume ] in Serum or Plasma Onel Allison MD Work Phone: Start: 05-19-2022 EXTRA TUBES Onel Allison MD Work Phone: Start: 05-19-2022 MA URINE CULTURE TUBE Onel Allison MD Work Phone: Start: 05-19-2022 Urnls dip stick/tabl et reagent auto microscopy Onel Allison MD Work Phone: Start: 05-14-2022 Drug tst prsmv instr mnt chem analyzers pr date Kayla Wang MD Work Phone: Start: 05-14-2022 ALCOHOL (ETHANOL),BLOOD Kayla Wang MD Work Phone: Start: 05-14-2022 Electrolyte panel Shan paige Wang MD Work Phone: Start: 05-14-2022 GOLD TOP TUBE Shaggy Wang MD Work Phone: Start: 05-14-2022 MINT GREEN TOP TUBE Alfonso Wang MD Work Phone: Start: 12-04-2021 Ethanol [Mass/volume ] in Serum or Plasma Clyde WHITE Work Phone: Start: 12-04-2021 Drug tst prsmv instr mnt chem analyzers pr date Clyde WHITE Work Phone: Start: 12-04-2021 Urnls dip stick/tabl et reagent auto microscopy Clyde WHITE Work Phone: Start: 12-04-2021 EXTRA TUBES Clyde WHITE Work Phone: Start: 12-04-2021 MA URINE CULTURE TUBE Clyde WHITE Work Phone: Start: 12-03-2021 Ct abdomen & pelvis w/o contrast material Sandra Trivedi MD Work Phone: Start: 10-26-2022 Sars-cov-2 detection by dna/rna Sandra Trivedi MD Work Phone: Start: 12-03-2021 ACETAMINOPHEN LEVEL Casandra Diane PA Work Phone: Start: 12-03-2021 CBC W Auto Different ial panel - Blood Sandra Trivedi MD Work Phone: Start: 12-03-2021 Comprehensive metabo lic panel Sandra Trivedi MD Work Phone: Start: 12-03-2021 SALICYLATE LEVEL Clyde dunlap PA Work Phone: Start: 10-28-2021 ALCOHOL (ETHANOL),BLOOD Anival Nico Ritter PA-C Work Phone: Start: 10-28-2021 MINT GREEN TOP TUBE Sea n P Ritter PA-C Work Phone: Start: 08-22-2021 Assay of magnesium Jese Lewis MD Work Phone: Start: 08-22-2021 Hepatic function panel Jese Lewis MD Work Phone: Start: 08-21-2021 Bilirubin direct Charlotte maia Carrillo DO Work Phone: Start: 08-21-2021 CBC AND ELECTRONIC DIFF Flor Carrillo DO Work Phone: Start: 08-21-2021 Complete blood count with white cell differential, automated Flor Carrillo DO Work Phone: Start: 08-20-2021 Drug tst prsmv instr mnt chem analyzers pr date Flor Carrillo DO Work Phone: Start: 08-20-2021 ACETAMINOPHEN LEVEL Whi tney Carrillo DO Work Phone: Start: 08-20-2021 ALCOHOL (ETHANOL),BLOOD Flor Carrillo DO Work Phone: Start: 08-20-2021 Creatinine blood Whitne y Carrillo DO Work Phone: Start: 08-20-2021 GOLD TOP TUBE Halina Ayon MD Work Phone: Start: 08-20-2021 LAVENDER TOP TUBE Keysha Ayon MD Work Phone: Start: 08-20-2021 LT BLUE TOP TUBE Yandy Ayon MD Work Phone: Start: 08-20-2021 MINT GREEN TOP TUBE Anisa Ayon MD Work Phone: Start: 08-20-2021 RAINBOW DRAW Halina Ayon MD Work Phone: Start: 04-29-2021 Ecg routine ecg w/le ast 12 lds w/i&r Felicita Andre MD Work Phone: Start: 04-26-2021 Chlamydia trachomatis+Neisseria gonorrhoeae DNA [Presence] in Unspecified specimen by Probe with signal amplification Felicita Andre MD Work Phone: Start: 04-26-2021 Antibody treponema pallidum Felicita Andre MD Work Phone: Start: 04-26-2021 Assay of thyroid stimulating hormone tsh Felicita Andre MD Work Phone: Start: 04-26-2021 Iaad ia hiv-1 ag w/h iv-1 & hiv-2 antbdy single Felicita Andre MD Work Phone: Start: 04-25-2021 Drug tst prsmv instr mnt chem analyzers pr date Karely SONG/CHB Work Phone: Start: 04-25-2021 ACETAMINOPHEN LEVEL Jam page SONG/YULIET Work Phone: Start: 04-25-2021 ALCOHOL (ETHANOL),BLOOD Karely SONG/CHB Work Phone: Start: 04-25-2021 Assay of lipase Karely CAN Work Phone: Start: 04-25-2021 CBC AND ELECTRONIC DIFF Karely L Mccullough MB/CHB Work Phone: Start: 04-25-2021 Complete blood count with white cell differential, automated Karely Mccullough MB/CHB Work Phone: Start: 04-25-2021 GOLD TOP TUBE Karely Tomlinson ras MB/CHB Work Phone: Start: 04-25-2021 Hepatic function panel Karely Mccullough MB/CHB Work Phone: Start: 04-25-2021 Iaad ia hiv-1 ag w/h iv-1 & hiv-2 antbdy single Pratibha Rincon MD Work Phone: Start: 04-25-2021 LAVENDER TOP TUBE Karely Mccullough MB/CHB Work Phone: Start: 04-25-2021 LT BLUE TOP TUBE Karely Mccullough MB/CHB Work Phone: Start: 04-25-2021 MINT GREEN TOP TUBE John page Mccullough MB/CHB Work Phone: Start: 04-25-2021 RAINBOW DRAW Karely rasmussen MB/CHB Work Phone: Start: 04-25-2021 SALICYLATE LEVEL Karely Mccullough MB/CHB Work Phone: Start: 04-25-2021 SARS-CoV-2 (COVID-19 ) RNA [Presence] in Unspecified specimen by KARIN with probe detection Karely Mccullough MB/CHB Work Phone: Start: 04-01-2021 Iadna chlamydia trac homatis amplified probe tq Radha Foote CNP Work Phone: Start: 04-01-2021 Basic metabolic pane l calcium total Julia Alvarado MD Work Phone: Start: 03-31-2021 End: 03-31-2021 Mri spinal canal cervical w/o & w/contr matrl Tejal Naik Colaiacovo PA-C Work Phone: Start: 03-31-2021 Ct angiography neck w/contrast/noncontrast Pratibha Johnston PA-C Work Phone: Start: 03-31-2021 SARS-CoV-2 (COVID-19 ) RNA [Presence] in Respiratory specimen by KARIN with probe detection Topher Perez DO Work Phone: Start: 03-31-2021 Blood ethanol measurement Topher Perez DO Work Phone: Start: 03-31-2021 Blood typing serologic abo Topher Perez DO Work Phone: Start: 03-31-2021 Gases blood ph direc t patrick xcpt pulse oximitry Topher Perez [employer] Work Phone: Plan of Treatment Date Care Activity Detail Author Start: 04-19-2033 DTaP/Tdap/Td vaccine (5 - Td or Tdap) DTaP/Tdap/Td vaccine (5 - Td or Tdap) [facility] Start: 01-03-2031 DTaP/Tdap/Td vaccine (4 - Td or Tdap) DTaP/Tdap/Td vaccine (4 - Td or Tdap) [facility] Start: 01-03-2031 Tetanus vaccination TETANUS [facility] Start: 09-09-2023 Influenza vaccination Flu vacc ine (Season Ended) [facility] Start: 05-29-2023 Social Influencers o f Health Screening Social Influencers of Health Screening [facility] Start: 01-21-2023 End: 02-05-2023 CBC W Auto Differential panel - Blood CBC WITH DIFFERENTIAL Lab Routine Alcohol withdrawal syndrome without complication (HC CODE) Expected: 01/21/2023, Expires: 02/05/2023 [facility] Comment on above: Expected: 01/21/2023 , Expires: 02/05/2023 Start: 01-21-2023 End: 02-05-2023 Comprehensive metabolic 2000 panel - Serum or Plasma COMPREHENSIVE METABOLIC PANEL Lab Routine Alcohol withdrawal syndrome without complication (HC CODE) Expected: 01/21/2023, Expires: 02/05/2023 [facility] Work Phone: Comment on above: Expected: 01/21/2023 , Expires: 02/05/2023 Start: 10-09-2022 COVID-19 VACCINE () COVID-19 VACCINE ( season) [facility] Start: 10-09-2022 Influenza vaccination INFLUENZ A VACCINE (Season Ended) [facility] Start: 09-08-2022 Influenza vaccination B ON [facility] Start: 09-08-2022 Refusal of treatment by patient INFLUENZA VACCINE [facility] Start: 05-19-2022 End: 05-19-2022 Patient encounter procedure 05/19/2022 Office Visit Orthopaedic Surgery Karely [address] [id number] [facility] Start: 10-09-2021 Influenza vaccination INFLUENZA VACC INE (#1) [facility] Start: 09-23-2021 COVID-19 VACCINE (4 - Booster for Jacquelin series) COVID-19 VACCINE (4 - Booster for Jacquelin series) [facility] Start: 05-07-2021 End: 05-07-2021 Telemedicine consultation with patient 05/07/2021 Telemedicine Psychiatry Nathalie Godoy LISW [address] [place] [id number] [facility] Start: 04-28-2021 End: 04-28-2021 Patient encounter procedure 04/28/2021 Office Visit Neurosurgery [facility] Start: 04-10-2021 End: 04-10-2021 Patient encounter procedure 04/10/2021 Office Visit Tra[facility] Start: 04-04-2021 Adolescent depressio n screening assessment Depression Screening [facility] Start: 04-04-2021 Hepatitis C screening Hepatitis C Sc reening [facility] Start: 04-04-2021 HIV screening HIV Screening [facility] Start: 04-04-2021 Lipid panel Cholesterol Sc reening (Lipid Panel) [facility] Start: 04-04-2021 Social Influencers o f Health Screening Social Influencers of Health Screening [facility] Start: 10-09-2020 Influenza vaccination INFLUENZA VACC INE (#1) [facility] Start: 03-29-2019 Pneumococcal 0-64 ye ars Vaccine (2 of 2 - PCV) Pneumococcal 0-64 years Vaccine (2 of 2 - PCV) [facility] Start: 03-29-2019 PNEUMOCOCCAL VACCINE SERIES (2 - PCV) PNEUMOCOCCAL VACCINE SERIES (2 - PCV) [facility] Start: 01-24-2019 Diabetes screen Diabetes screen [facility] Start: 01-24-2003 DTaP,Tdap,and Td Vaccines (1 - Tdap) DTaP,Tdap,and Td Vaccines (1 - Tdap) [facility] Start: 01-24-2003 DTaP/Tdap/Td VACCINE S (1 - Tdap) DTaP/Tdap/Td VACCINES (1 - Tdap) [facility] Start: 01-24-2003 Third diphtheria, tetanus and acellular pertussis (DTaP) vaccination TDAP (ADULT) [facility] Start: 01-24-2002 Hepatitis C screening Hepatitis C sc reen [facility] Start: 01-24-2002 HEPATITIS C SCREENING HEPATITIS C SC REENING [facility] Start: 01-24-2002 Tetanus vaccination TETANUS [facility] Start: 01-24-1999 HIV screening HIV screen [facility] Start: 01-24-1999 HIV SCREENING HIV SCREENING [facility] Start: 1996 Depression Screen Depression Screen [facility] Start: 01-24-1991 DTAP/TDAP/TD (1 - Tdap) DTAP/TDAP/TD (1 - Tdap) [facility] Start: 01-24-1990 PNEUMOCOCCAL VACCINE SERIES (1 - PCV) PNEUMOCOCCAL VACCINE SERIES (1 - PCV) [facility] Start: 01-24-1990 PNEUMOCOCCAL VACCINE SERIES (1 of 2 - PPSV23) PNEUMOCOCCAL VACCINE SERIES (1 of 2 - PPSV23) [facility] Start: 01-24-1990 Pneumococcal Vaccine : Pediatrics (0 to 5 Years) and At-Risk Patients (6 to 64 Years) (1 - PCV) Pneumococcal Vaccine: Pediatrics (0 to 5 Years) and At-Risk Patients (6 to 64 Years) (1 - PCV) [facility] Start: 01-24-1989 COVID-19 VACCINE (1) COVID-19 VACCIN E (1) [facility] Start: 01-24-1987 ANNUAL PREVENTIVE PHYSICAL (INCLUDES MAAP) ANNUAL PREVENTIVE PHYSICAL (INCLUDES MAAP) [facility] Start: 01-24-1985 Hepatitis A Vaccines (1 of 2 - Risk 2-dose series) Hepatitis A Vaccines (1 of 2 - Risk 2-dose series) [facility] Start: 01-24-1985 MMR VACCINES (1 of 1 - Standard series) MMR VACCINES (1 of 1 - Standard series) [facility] Start: 01-24-1985 Varicella vaccine (1 of 2 - 2-dose childhood series) Varicella vaccine (1 of 2 - 2-dose childhood series) [facility] Start: 01-24-1985 VARICELLA VACCINES ( 1 of 2 - 2-dose childhood series) VARICELLA VACCINES (1 of 2 - 2-dose childhood series) [facility] Start: 1984 COVID-19 VACCINE (#1) COVID-19 VACCI NE (#1) [facility] Start: 1984 COVID-19 VACCINES (#1) COVID-19 VACC GUERO (#1) [facility] Start: 1984 ANNUAL PHYSICAL ANNUAL PHYSICAL Dayt [facility] Start: 1984 Hepatitis B vaccine (1 of 3 - 3-dose series) Hepatitis B vaccine (1 of 3 - 3-dose series) [facility] Start: 1984 Hepatitis B Vaccines (1 of 3 - 3-dose series) Hepatitis B Vaccines (1 of 3 - 3-dose series) [facility] Start: 1984 Hepatitis C antibody , confirmatory test HEPATITIS C VIRUS SCREENING [facility] End: 05-17-2023 CBC W Auto Differential panel - Blood CBC with Auto Differential Lab STAT One Time for 1 Occurrences starting 05/17/2023 until 05/17/2023 [facility] Work Phone: Comment on above: One Time for 1 Occur rences starting 05/17/2023 until 05/17/2023 End: 05-17-2023 Comprehensive metabolic 2000 panel - Serum or Plasma Comprehensive Metabolic Panel Lab STAT One Time for 1 Occurrences starting 05/17/2023 until 05/17/2023 [facility] [employer] Comment on above: One Time for 1 Occur rences starting 05/17/2023 until 05/17/2023 Continuous pulse oximetry Pulse oximetry, continuous Respiratory Care Routine Every 4hr until discontinued starting 06/29/2023 [employer] [employer] Comment on above: Every 4hr until disc ontinued starting 06/29/2023 End: 11-01-2022 Ct head/brain w/o contrast material CT HEAD WITHOUT CONTRAST CT STAT Once for 1 Occurrences starting 11/01/2022 until 11/01/2022 [employer] Phone: Comment on above: Once for 1 Occurrenc es starting 11/01/2022 until 11/01/2022 End: 09-12-2022 DRUG SCREEN, URINE DRUG SCREEN, URINE Lab STAT Now for 1 Occurrences starting 09/12/2022 until 09/12/2022 [facility] Comment on above: Now for 1 Occurrence s starting 09/12/2022 until 09/12/2022 End: 01-04-2023 DRUG SCREEN, URINE DRUG SCREEN, URINE Lab STAT Now for 1 Occurrences starting 01/04/2023 until 01/04/2023 [employer] Phone: Comment on above: Now for 1 Occurrence s starting 01/04/2023 until 01/04/2023 End: 02-12-2023 DRUG SCREEN, URINE DRUG SCREEN, URINE Lab STAT Now for 1 Occurrences starting 02/12/2023 until 02/12/2023 [employer] Phone: Comment on above: Now for 1 Occurrence s starting 02/12/2023 until 02/12/2023 EKG 12 Lead EKG 12 Lead ECG STAT 06/28/2023 11:10 PM EDT [facility] EKG 12 Lead EKG 12 Lead ECG STAT 06/30/2023 11:56 PM EDT [facility] EKG 12 Lead (Chest Pain) EKG 12 Lead (Chest Pain) ECG STAT 07/12/2023 9:41 AM EDT [facility] EKG Standard EKG Standard EKG STAT 09/12/2022 6:38 AM EDT [facility] EKG Standard EKG Standard EKG STAT 01/03/2023 11:34 PM EST [employer] Phone: End: 09-12-2022 Glucose [Mass/volume] in Serum or Plasma POC GLUCOSE POC Testing STAT Now for 1 Occurrences starting 09/12/2022 until 09/12/2022 [employer] Phone: Comment on above: Now for 1 Occurrence s starting 09/12/2022 until 09/12/2022 End: 01-05-2023 Glucose [Mass/volume] in Serum or Plasma POC GLUCOSE POC Testing STAT Now for 1 Occurrences starting 01/05/2023 until 01/05/2023 [employer] Phone: Comment on above: Now for 1 Occurrence s starting 01/05/2023 until 01/05/2023 Glucose [Mass/volume ] in Serum or Plasma POC GLUCOSE POC Testing Timed May adjust start time until discontinued starting 02/12/2023 [employer] Phone: Comment on above: May adjust start micheal e until discontinued starting 02/12/2023 GOLD TOP TUBE GOLD TOP TUBE La b Routine 10/28/2021 11:00 PM EDT [facility] GOLD TOP TUBE GOLD TOP TUBE La b Routine 06/07/2022 10:18 PM EDT [facility] LAVENDER TOP TUBE LAVENDER TOP T UBE Lab Routine 10/28/2021 11:00 PM EDT [facility] LAVENDER TOP TUBE LAVENDER TOP T UBE Lab Routine 05/14/2022 12:37 AM EDT [facility] LAVENDER TOP TUBE LAVENDER TOP T UBE Lab Routine 06/07/2022 10:18 PM EDT [facility] LT BLUE TOP TUBE LT BLUE TOP TUB E Lab Routine 10/28/2021 11:00 PM EDT [facility] LT BLUE TOP TUBE LT BLUE TOP TUB E Lab Routine 05/14/2022 12:37 AM EDT [facility] End: 05-19-2022 Neisseria gonorrhoeae DNA [Presence] in Urine by KARIN with probe detection [employer] Phone: Comment on above: STAT for 1 Occurrenc es starting 05/19/2022 until 05/19/2022 Oxygen therapy [Mini mum Data Set] Initiate Oxygen Therapy Protocol Respiratory Care Routine As Needed until discontinued starting 05/08/2023 [facility] Comment on above: As Needed until disc ontinued starting 05/08/2023 Oxygen therapy [Mini mum Data Set] Initiate Oxygen Therapy Protocol Respiratory Care Routine As Needed until discontinued starting 06/28/2023 [facility] Comment on above: As Needed until disc ontinued starting 06/28/2023 PINK SLIP - 72 HOUR HOLD PINK SLIP - 72 HOUR HOLD IP Psych Routine May adjust start time until discontinued starting 01/07/2023 [employer] Work Phone: Comment on above: May adjust start micheal e until discontinued starting 01/07/2023 RAINBOW DRAW RAINBOW DRAW Lab Routine 10/28/2021 11:00 PM EDT [facility] RAINBOW DRAW RAINBOW DRAW Lab Routine 05/14/2022 12:37 AM EDT [facility] RAINBOW DRAW RAINBOW DRAW Lab Routine 06/07/2022 10:18 PM EDT [facility] End: 05-17-2023 SERUM DRUG SCREEN SERUM DRUG SCREEN Lab Routine One Time for 1 Occurrences starting 05/17/2023 until 05/17/2023 [facility] Comment on above: One Time for 1 Occur rences starting 05/17/2023 until 05/17/2023 Serum Drug Screen Serum Drug Scr een Lab STAT 06/05/2023 12:34 PM EDT [facility] Standard ECG ECG ECG Routine 04/29/2021 1:05 PM EDT [facility] Work Phone: End: 01-04-2023 TROPONIN T (1 HOUR) TROPONIN T (1 HOUR) Lab STAT Once for 1 Occurrences starting 01/04/2023 until 01/04/2023 [facility] Comment on above: Once for 1 Occurrenc es starting 01/04/2023 until 01/04/2023 End: 05-17-2023 Urinalysis with Microscopic Urinalysis with Microscopic Lab STAT One Time for 1 Occurrences starting 05/17/2023 until 05/17/2023 [facility] Comment on above: One Time for 1 Occur rences starting 05/17/2023 until 05/17/2023 End: 05-17-2023 Urine Drug Screen Urine Drug Screen Lab STAT One Time for 1 Occurrences starting 05/17/2023 until 05/17/2023 [facility] Comment on above: One Time for 1 Occur rences starting 05/17/2023 until 05/17/2023 End: 07-12-2023 URINE DRUG SCREEN URINE DRUG SCREEN Lab Routine One Time for 1 Occurrences starting 07/12/2023 until 07/12/2023 [facility] Comment on above: One Time for 1 Occur rences starting 07/12/2023 until 07/12/2023 Immunizations Immunization Date Immunization Notes Care Provider Jose herrera 04-20-2023 tetanus toxoid, reduced diphtheria toxoid, and acellular pertussis vaccine, adsorbed Consuelo Pablito [facility] 10-26-2019 influenza virus vaccine, unspecified formulation Kayla Wang MD Work Phone: [facility] 03-11-2009 influenza virus vaccine, unspecified formulation Jennifer Suggs MD Work Phone: [facility] Payers Date Payer Category Payer Unknown [id number] 2021 Medicaid [id number] 2021 Medicaid [id number] 1984 Unknown [id number] 2.16. 840.1.634025.3.579.2.903 1984 Unknown [id number] 2.16. 840.1.480309.3.579.2.902 1984 Unknown [id number] 2.16.8 40.1.441828.3.579.2.1143 1984 Unknown [id number] 2.16.8 40.1.001181.3.579.2.1143 1984 Unknown [id number] 2.16.8 40.1.068683.3.579.2.1143 1984 Unknown [id number] 2.16.8 40.1.207705.3.579.2.1143 1984 Unknown [id number] 2.16.84 0.1.243864.3.579.2.1248 1984 Unknown [id number] 2.16.84 0.1.019954.3.579.2.1248 1984 Unknown [id number] 2.16.84 0.1.798980.3.579.2.1248 1984 Unknown [id number] 2.16.84 0.1.254593.3.579.2.1248 1984 Unknown [id number] 2.16.84 0.1.050926.3.579.2.1248 1984 Unknown [id number] 2.16. 840.1.088149.3.579.2.903 1984 Unknown [id number] 2.16. 840.1.478327.3.579.2.903 1984 Unknown [id number] 2.16. 840.1.576726.3.579.2.903 1984 Unknown [id number] 2.16. 840.1.248971.3.579.2.903 1984 Unknown [id number] 2.16. 840.1.794461.3.579.2.903 1984 Unknown [id number] 2.16. 840.1.885611.3.579.2.903 1984 Unknown [id number] 2.16. 840.1.160789.3.579.2.903 1984 Unknown [id number] 2.16.8 40.1.448340.3.579.2.1143 1984 Unknown [id number] 2.16.8 40.1.400734.3.579.2.1143 1984 Unknown [id number] 2.16.8 40.1.448273.3.579.2.1143 1984 Unknown [id number] 2.16.8 40.1.361551.3.579.2.1143 1984 Unknown [id number] 2.16. 840.1.856534.3.579.2.201 1984 Unknown [id number] 2.16. 840.1.912031.3.579.2.201 1984 Unknown [id number] 2.16. 840.1.994625.3.579.2.201 1984 Unknown [id number] 2.16. 840.1.174135.3.579.2.201 1984 Unknown [id number] 2.16. 840.1.275956.3.579.2.201 1984 Unknown [id number] 2.16. 840.1.178887.3.579.2.201 1984 Unknown [id number] 2.16. 840.1.361066.3.579.2.201 1984 Unknown [id number] 2.16. 840.1.336897.3.579.2.201 1984 Unknown [id number] 2.16. 840.1.176007.3.579.2.201 1984 Unknown [id number] 2.16. 840.1.286148.3.579.2.201 1984 Unknown [id number] 2.16. 840.1.978106.3.579.2.204 1984 Unknown [id number] 2.16. 840.1.805163.3.579.2.204 1984 Unknown [id number] 2.16. 840.1.723522.3.579.2.204 1984 Unknown [id number] 2.16. 840.1.825428.3.579.2.204 1984 Unknown [id number] 2.16. 840.1.343648.3.579.2.204 1984 Unknown [id number] 2.16. 840.1.568987.3.579.2.902 1984 Unknown [id number] 2.16. 840.1.681964.3.579.2.902 1984 Unknown [id number] 2.16. 840.1.458731.3.579.2.902 1984 Unknown [id number] 2.16. 840.1.162809.3.579.2.902 1984 Unknown [id number] 2.16. 840.1.204709.3.579.2.902 1984 Unknown [id number] 2.16. 840.1.697199.3.579.2.594 1984 Unknown [id number] 2.16. 840.1.393967.3.579.2.204 1984 Unknown [id number] 2.16. 840.1.048457.3.579.2.204 1984 Unknown [id number] 2.16. 840.1.968399.3.579.2.204 1984 Unknown [id number] 2.16. 840.1.553219.3.579.2.204 1984 Unknown [id number] 2.16. 840.1.378337.3.579.2.204 1984 Unknown [id number] 2.16. 840.1.504247.3.579.2.204 1984 Unknown [id number] 2.16. 840.1.177716.3.579.2.204 1984 Unknown [id number] 2.16. 840.1.089284.3.579.2.204 1984 Unknown [id number] 2.16. 840.1.625126.3.579.2.204 1984 Unknown [id number] 2.16. 840.1.698332.3.579.2.204 1984 Unknown [id number] 2.16. 840.1.917457.3.579.2.204 1984 Unknown [id number] 2.16. 840.1.668493.3.579.2.204 1984 Unknown [id number] 2.16. 840.1.025812.3.579.2.204 1984 Unknown [id number] 2.16. 840.1.894015.3.579.2.204 1984 Unknown [id number] 2.16. 840.1.905939.3.579.2.204 1984 Unknown [id number] 2.16. 840.1.920443.3.579.2.204 1984 Unknown [id number] 2.16. 840.1.585388.3.579.2.204 1984 Unknown [id number] 2.16. 840.1.650173.3.579.2.204 1984 Unknown [id number] 2.16. 840.1.680775.3.579.2.204 1984 Unknown [id number] 2.16. 840.1.595631.3.579.2.204 1984 Unknown [id number] 2.16. 840.1.235739.3.579.2.204 1984 Unknown [id number] 2.16. 840.1.008821.3.579.2.204 1984 Unknown [id number] 2.16. 840.1.662386.3.579.2.204 1984 Unknown [id number] 2.16. 840.1.627749.3.579.2.204 1984 Unknown [id number] 2.16. 840.1.670967.3.579.2.204 1984 Unknown [id number] 2.16. 840.1.846230.3.579.2.204 1984 Unknown [id number] 2.16. 840.1.714548.3.579.2.204 1984 Unknown [id number] 2.16. 840.1.594213.3.579.2.204 1984 Unknown [id number] 2. 840.1.531268.3.579.2.204 1984 Unknown [id number] 2.16.8 40.1.709356.3.579.2.1249 Unknown [id number] 2. 840.1.656181.3.579.2.246 Unknown [id number] 2.16 840.1.828517.3.579.2.246 Unknown [id number] 2. 840.1.606834.3.579.2.246 Unknown [id number] 2. 840.1.184552.3.579.2.246 Unknown [id number] 2. 840.1.323298.3.579.2.246 Unknown [id number] 2.16 840.1.666339.3.579.2.246 Unknown [id number] 2.16 840.1.435871.3.579.2.246 Unknown [id number] 2. 840.1.016110.3.579.2.246 Unknown [id number] 2.16 840.1.600948.3.579.2.246 Unknown [id number] 2.16 840.1.069019.3.579.2.246 Unknown [id number] 2.16 840.1.459484.3.579.2.246 Unknown [id number] 2.16. 840.1.187934.3.579.2.246 Unknown [id number] 2.16 840.1.178092.3.579.2.246 Unknown [id number] 2.16. 840.1.116831.3.579.2.246 Unknown [id number] 2.16. 840.1.990505.3.579.2.246 Unknown [id number] 2.16. 840.1.106756.3.579.2.246 Unknown [id number] 2.16. 840.1.586243.3.579.2.246 Unknown [id number] 2.16. 840.1.422915.3.579.2.246 Unknown [id number] 2.16. 840.1.398593.3.579.2.246 Unknown [id number] 2.16. 840.1.435432.3.579.2.246 Social History Date Type Detail Facility Start: 03-31-2021 End: 05-15-2023 Tobacco smoking status OKIS Smokes tobacco daily [facility] History of tobacco use Cigarette Smoker O [facility] Start: 03-31-2021 End: 03-18-2023 Tobacco use and exposure Smokeless tobacco non-user [facility] Start: 03-31-2021 Alcohol intake Lifetime non-d ramya (finding) [facility] Start: 1985 Sex Assigned At Not on file [facility] Start: 03-20-2021 End: 07-13-2022 Exposure to SARS-CoV-2 (event) Not sure [facility] Start: 04-25-2021 End: 07-16-2023 Alcohol intake Current drinker of alcohol (finding) [facility] Start: 04-20-2021 End: 04-30-2021 Exposure to SARS-CoV-2 (event) Unable to assess [facility] Work Phone: Start: 04-06-2021 End: 07-17-2023 Cigarettes smoked current (pack per day) - Reported 0.5 [facility] Start: 04-06-2021 History SDOH Alcohol Comment fifth of liquior 6 days a wk [facility] Start: 12-03-2021 Tobacco use and exposure User of smokeless tobacco [facility] Start: 06-05-2022 Alcohol Comment Lots of whiskey [facility] Start: 06-30-2022 History SDOH Alcohol Frequency 5 [facility] Work Phone: Start: 06-30-2022 Alcohol Comment 3 fifths a wee k of whiskey [facility] Phone: [facility] Start: 07-17-2022 [facility] Never [facility] tobacco [facility] Start: 07-17-2022 Alcohol Comment pint of whiskey andrew y [facility] Start: 09-12-2022 Alcohol Comment pint of whiske y daily, states today he drank multiple [place] rums [facility] Start: 01-03-2023 End: 07-17-2023 Tobacco use panel [facility] How often to you hav e a drink containing alcohol? 4 or more times a week [facility] How many standard drinks containing alcohol do you have on a typical day? 5 or 6 [facility] How often do you hav e 6 or more drinks on 1 occasion? Daily or almost daily [facility] Has the [employer], or water [employer] threatened to shut off services in your home in past 12Mo Patient declined [facility] How many standard drinks containing alcohol do you have on a typical day? 10 or more [facility] (I/We) worried ruthie er (my/our) food would run out before (I/we) got money to buy more. Sometimes true [facility] In the past 12 month s, was there a time when you were not able to pay the mortgage or rent on time? No [facility] At any time in the p ast 12 months, were you homeless or living in fpc [including now]? Yes [facility] Start: 05-15-2023 Alcohol Comment 3 pints of liquor a day [facility] Start: 03-18-2023 End: 06-28-2023 Tobacco smoking status NHIS Occasional tobacco smoker [facility] How many standard drinks containing alcohol do you have on a typical day? 7 to 9 [facility] How often do you hav e 6 or more drinks on 1 occasion? Weekly [employer] (I/We) worried ruthie (my/our) food would run out before (I/we) got money to buy more. Never true [facility] Start: 03-18-2023 Alcohol Comment 3- fifths andrew y- whiskey [facility] Goals Date Patient Goal Desired Activity /State Clinical Notes 03-31-2021 to 07-17-2023 Behavorial Health Intake - Consuelo Kenney [facility] - 07/17/2023 2:04 PM EDTBehavorial Health Intake - Consuelo Kenney [facility] - 07/17/2023 2:04 PM EDTDischarge InstructionsDischarge InstructionsAttachments Note Date & Type Note Facility 07-17-2023 Note Formatting of this n ote is different from the original. BEHAVIORAL HEALTH INTAKE NOTE SERVICE DATE: 07/17/2023 SERVICE TIME: 1:00 pm Nature of the crisis: Detox Presenting Problem: Mckinley Roman is a 38 year old male brought in to [place] ED from the Community by ambulance for detox. The patient was interviewed telephonically. He says that he needs help with his alcoholism. He wants a residential program but has left many of them AMA. He recently left [facility] after one day. He left [place] ED yesterday AMA. He says that he is having symptoms but nothing in appearing like this. He says that he feels shaky. His vitals are all normal, not tachycardic. The patient has a history of threatening staff, can be verbally aggressive. The staff at [facility] are concerned about bringing him to the unit. His history would indicate that he does not want help. There could be secondary gain since his is homeless. He expressed his anger to me that the ED had not gotten him his lunch yet. This counselor called Dr. Calderón and let her know about the information that [facility] found out about the patient and is now declining admission. ED doctor was notified. SOCIAL HISTORY: Social History Tobacco Use Smoking status: Some Days Types: Cigarettes Smokeless tobacco: Never Vaping Use Vaping Use: current everyday user Substances: Nicotine, Flavoring Devices: Disposable Substance Use Topics Alcohol use: Yes Comment: 3- fifths daily- whiskey Drug use: Yes Types: Cocaine, Amphetamines MEDICATIONS: buspirone HCl (BUSPAR ORAL) Take by mouth. (Patient not taking: Reported on 07/15/2023) mirtazapine (REMERON ORAL) Take by mouth. (Patient not taking: Reported on 07/15/2023) buPROPion XL (WELLBUTRIN XL) 300 mg 24 hr tablet Take 300 mg by mouth once daily. Medication Comments documented by Elmer Juan RN on 07/14/2023 at 2358. 07/13/23 not taking meds currently MEDICATION COMPLIANCE: Unknown SOCIAL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 reports that he has been working with recovery, but experienced a relapse after not drinking for 1 week. o Continue Wellbutrin, BuSpar, trazodone, venlafaxine, thiamine/folic acid/multivitamin infusion, and loratadine. o Continue Mylanta and Pepcid. Code Status: Orders Placed This Encounter Total Support DVT Prophylaxis: Lovenox Diet: Regular Subjective Chief Complaint: Alcohol intoxication, relapse, suicidal ideation History of Present Illness: Mckinley Roman is a 38 year old male, with a PMH of MDD, transaminitis, and ETOH abuse who presented to the ED on 02/11/2023 via escort by [place] [employer] after he was found to be intoxicated and endorsing suicidal ideation; associated nausea/vomiting, abdominal pain, denies hematemesis/coffee- ground emesis. Ethanol level 259 on arrival. CXR nonacute. Platelets slightly elevated at 435k. Patient reports that he has been working on recovery; noted that he received a Vivitrolshot on 01/11/2023. States he had relapse last night after not drinking for 1 week. Reports drinking an entire bottle of fireball and 2 bottles of vodka . He states that he has a history of drinkingliquor daily for many years. Evaluated by behavioral health for inpatient psychiatric placement, concerns for alcohol withdrawal due to tremors and diaphoresis. He will be admitted to the observationunit for close monitoring of alcohol withdrawal and pending psychiatric evaluation. Review of Systems Constitutional: Negative for activity change, appetite change, chills and fever. HENT: Negative for congestion, sore throat and trouble swallowing. Eyes: Negative for photophobia, discharge and visual disturbance. Respiratory: Negative for cough, chest tightness, shortness of breath and wheezing. Cardiovascular: Negative for chest pain, palpitations and leg swelling. Gastrointestinal: Positive for abdominal pain, nausea and vomiting. Negative for blood in stool, constipation and diarrhea. Endocrine: Negative for polydipsia, polyphagia and polyuria. Genitourinary: Negative for decreased urine volume, difficulty urinating, dysuria, flank pain and urgency. Musculoskeletal: Negative for arthralgias, myalgias, neck pain and neck stiffness. Skin: Negative for color change, rash and wound. Allergic/Immunologic: Negative for environmental allergies, food allergies and immunocompromised state. Neurological: Positive for tremors. Negative for dizziness, seizures, syncope, weakness, light-headedness, numbness and headaches. Hematological: Negative for adenopathy. Does not bruise/bleed easily. Psychiatric/Behavioral: Negative for agitation, behavioral problems, confusion, hallucinations, self-injury and suicidal ideas. Past Medical History: Diagnosis Date Alcohol abuse Depression Elevated liver enzymes Suicidal ideation History reviewed. No pertinent surgical history. Social History Socioeconomic History Marital status: Single Spouse name: Not on file Number of children: Not on file Years of education: Not on file Highest education level: Not on file Occupational History Not on file Tobacco Use Smoking status: Never Smokeless tobacco: Never Vaping Use Vaping Use: Every day Substance and Sexual Activity Alcohol use: Yes Alcohol/week: 40.0 standard drinks of alcohol Types: 40 Shots of liquor per week Comment: pint of whiskey daily, states today he drank multiple [place] rums Drug use: Yes Types: Cocaine, Methamphetamine Comment: last used months ago Sexual activity: Not on file Other Topics Concern Not on file Social History Narrative Not on file Social Determinants of Health Financial Resource Strain: Not on file Food Insecurity: Not on file Transportation Needs: Not on file Physical Activity: Not on file Stress: Not on file Social Connections: Not on file Intimate Partner Violence: Not on file Housing Stability: Not on file History reviewed. No pertinent family history. Allergies: No Known Allergies Home Medications: No outpatient medications have been marked as taking for the 02/11/23 encounter (Hospital Encounter). Objective Exam: Vital Signs: Temp: 98 F (36.7 C) (02/12/23 0300) Temp Min: 98 F (36.7 C) Min taken time: 02/12/23 0300 Max: 98.2F (36.8 C) Max taken time: 02/11/23 2354 BP: 140/71 (02/12/23 1200) Pulse: 104 (02/12/23 1200) Resp: 16 (02/12/23 0300) SpO2: 100 % (02/12/23 0300) Physical Exam Vitals reviewed. Constitutional: Appearance: Normal appearance. He is normal weight. HENT: Head: Normocephalic and atraumatic. Right Ear: External ear normal. Left Ear: External ear normal. Nose: Nose normal. No congestion or rhinorrhea. Mouth/Throat: Mouth: Mucous membranes are moist. Pharynx: No oropharyngeal exudate or posterior oropharyngeal erythema. Eyes: General: No scleral icterus. Right eye: No discharge. Left eye: No discharge. Conjunctiva/sclera: Conjunctivae normal. Cardiovascular: Rate and Rhythm: Normal rate and regular rhythm. Pulses: Normal pulses. Heart sounds: Normal heart sounds. No murmur heard. Pulmonary: Effort: Pulmonary effort is normal. No respiratory distress. Breath sounds: Normal breath sounds. No wheezing. Abdominal: General: Abdomen is flat. Bowel sounds are normal. There is no distension. Palpations: Abdomen is soft. Tenderness: There is no abdominal tenderness. Musculoskeletal: General: Normal range of motion. Cervical back: Normal range of motion. No rigidity or tenderness. Right lower leg: No edema. Left lower leg: No edema. Skin: General: Skin is warm and dry. Capillary Refill: Capillary refill takes less than 2 seconds. Coloration: Skin is not jaundiced. Neurological: General: No focal deficit present. Mental Status: He is alert and oriented to person, place, and time. Mental status is at baseline. Motor: Tremor present. Psychiatric: Mood and Affect: Mood is depressed. Speech: Speech normal. Behavior: Behavior normal. Behavior is cooperative. Thought Content: Thought content is not paranoid or delusional. Thought content includes suicidal ideation. Thought content does not include homicidal ideation. Thought content does not include suicidal plan. Judgment: Judgment normal. Diagnostic Data: Labs--Reviewed: Recent Results (from the past 24 hour(s)) COMPLETE BLOOD COUNT WITH DIFFERENTIAL Collection Time: 02/12/23 1:00 AM Result Value Ref Range WBC Count 8.3 3.5 - 10.9 K/uL RBC 5.36 4.14 - 5.80 M/uL Hemoglobin 15.7 13.0 - 17.7 g/dL Hematocrit 44.1 37.5 - 51.0 % MCV 82.3 80.0 - 100.0 fL MCH 29.3 26.0 - 34.0 pg MCHC 35.6 (H) 30.7 - 35.5 g/dL RDW 13.4 <=15.0 % Platelet Count 435 (H) 140 - 400 K/uL MPV 8.2 7.2 - 11.7 fL nRBC 0 <=0 /100 WBCs % Neutrophils 53.6 42.0 - 80.0 % % Lymphocytes 37.8 14.0 - 51.0 % % Monocytes 7.4 4.0 - 12.0 % % Eosinophils 0.5 0.0 - 5.0 % % Basophils 0.5 0.0 - 2.0 % % Immature Granulocyte 0.2 <1.0 % Absolute Neutrophils 4.4 1.8 - 7.5 K/uL Absolute Lymphocyte 3.1 0.9 - 4.1 K/uL Absolute Monocyte 0.6 0.2 - 1.0 K/uL Absolute Eosinophils 0.0 0.0 - 0.5 K/uL Absolute Basophil 0.0 0.0 - 0.3 K/uL Absolute Immature Granulocytes 0.0 0.0 - 0.1 K/uL Scan Result BASIC METABOLIC PANEL Collection Time: 02/12/23 1:01 AM Result Value Ref Range Sodium 141 135 - 148 mEq/L Potassium 4.1 3.4 - 5.3 mEq/L Chloride 106 96 - 110 mEq/L Carbon Dioxide 22 19 - 32 mEq/L BUN 18 3 - 29 mg/dL Creatinine 1.1 0.5 - 1.4 mg/dL Glucose 117 (H) 70 - 99 mg/dL Calcium 8.5 8.5 - 10.5 mg/dL Anion Gap 13 5 - 15 BUN/CREAT Ratio 16 7 - 25 Estimated GFR 88 >=60 mL/min/1.73m*2 HEPATIC FUNCTION PANEL Collection Time: 02/12/23 1:01 AM Result Value Ref Range Bilirubin,Total 0.3 0.0 - 1.2 mg/dL Bilirubin, Direct <0.2 0.0 - 0.4 mg/dL Bilirubin, Indirect Total Protein 6.8 6.0 - 8.3 g/dL Albumin 4.1 3.5 - 5.2 g/dL AST 42 0 - 46 U/L ALT 42 0 - 60 U/L Alkaline Phosphatase 108 23 - 144 U/L LIPASE Collection Time: 02/12/23 1:01 AM Result Value Ref Range Lipase 28 0 - 60 U/L ETHANOL Collection Time: 02/12/23 1:02 AM Result Value Ref Range Ethanol, Serum/Plasma 259 (H) <10 mg/dL GGT Collection Time: 02/12/23 1:02 AM Result Value Ref Range Gamma Glutamyl Transpeptidase 66 0 - 100 U/L Imaging- XR CHEST PA OR AP 1 VIEW (PORTABLE) Result Date: 01/13/2023 Chest History: Asymptomatic but had positive TB antigen blood work test recently, Nursing staff at his facility are requesting a chest x-ray. Had a negative chest x-ray 10 days ago, Abnormality on screening test, COMPARISON: 01/04/2023 Findings: Frontal view of the chest demonstrates no focal infiltrate. The heart size is within normal limits. IMPRESSION: No focal infiltrate. No radiographic evidence for active pulmonary tuberculosis. Dictated by Dennis Reyes MD, PhDWorkstation ID:[id number] 62 minutes spent in preparation of admission, including face to face encounter, discussions with the patient and family (if available), medication reconciliation, and review of medical record, tests. Discussed case, A&P with Dr. Pereira. Signature Electronically signed by: Pratibha Mohan APRN, 02/12/2023 2:15 PM Although we make reasonable efforts to review the dictation as it is transcribed, on occasion, the spoken word can be misinterpreted by technology leading to inaccurate words, phrases or sentences. Please review this document carefully and contact us if you notice any financial operations consultant errors or otherwise need clarification. [facility] [id number] History and physical note* Pratibha Mohan APRN - 02/12/2023 11:50 AM EST Images from the original note were not included. [facility] HISTORY AND PHYSICAL 02/12/2023 Patient Identifier/Hospitalist Patient: Mckinley Roman; 1985 Primary Care Physician: Angelito Lamb I saw and examined the patient on 02/12/2023 at 1150. Hospitalist REZA: Pratibha Mohan APRN Available via secure chat until 1900. Discussed case with Dr. Pereira. Disposition/Assessment and Plan Principal Problem: Alcohol intoxication, uncomplicated (HC CODE) Active Problems: Suicidal ideations Nicotine dependence Depression Abdominal pain Nausea & vomiting Disposition: Home vs. Inpatient psychiatric unit in 1 day. Reason for Continued Hospitalization: Monitoring for alcohol withdrawal. Assessment and Plan: Mckinley Roman is a 38 year old male, with a PMH of MDD, transaminitis, and ETOH abuse who presented to the ED on 02/11/2023 via escort by [place] [employer] after he was found to be intoxicated and endorsing suicidal ideation; associated nausea/vomiting, abdominal pain, denies hematemesis/coffee-ground emesis. ? EtOH intoxication, history of EtOH abuse, reports drinking liquor daily for many years ? Suicidal ideation, history of MDD ? GERD o Ethanol level 259. o CIWA protocol initiated. Tachycardic and diaphoretic, mild tremor on exam. o Psychiatry consulted pending evaluation. o Patient has had multiple admissions over the past 5 months with similar complications of suicidalideation and alcohol abuse. Per chart review patient received Vivitrol injection on 01/12/2024. He reports that he has been working with recovery, but experienced a relapse after not drinking for 1 week. o Continue Wellbutrin, BuSpar, trazodone, venlafaxine, thiamine/folic acid/multivitamin infusion, and loratadine. o Continue Mylanta and Pepcid. Code Status: Orders Placed This Encounter Total Support DVT Prophylaxis: Lovenox Diet: Regular Subjective Chief Complaint: Alcohol intoxication, relapse, suicidal ideation History of Present Illness: Mckinley Roman is a 38 year old male, with a PMH of MDD, transaminitis, and ETOH abuse who presented to the ED on 02/11/2023 via escort by [place] [employer] after he was found to be intoxicated and endorsing suicidal ideation; associated nausea/vomiting, abdominal pain, denies hematemesis/coffee- ground emesis. Ethanol level 259 on arrival. CXR nonacute. Platelets slightly elevated at 435k. Patient reports that he has been working on recovery; noted that he received a Vivitrolshot on 01/11/2023. States he had relapse last night after not drinking for 1 week. Reports drinking an entire bottle of fireball and 2 bottles of vodka . He states that he has a history of drinkingliquor daily for many years. Evaluated by behavioral health for inpatient psychiatric placement, concerns for alcohol withdrawal due to tremors and diaphoresis. [facility] will be [facility] to the [facility] for close monitoring of alcohol withdrawal and pending psychiatric evaluation. Review of Systems Constitutional: Negative for activity change, appetite change, chills and fever. HENT: Negative for congestion, sore throat and trouble swallowing. Eyes: Negative for photophobia, discharge and visual disturbance. Respiratory: Negative for cough, chest tightness, shortness of breath and wheezing. Cardiovascular: Negative for chest pain, palpitations and leg swelling. Gastrointestinal: Positive for abdominal pain, nausea and vomiting. Negative for blood in stool, constipation and diarrhea. Endocrine: Negative for polydipsia, polyphagia and polyuria. Genitourinary: Negative for decreased urine volume, difficulty urinating, dysuria, flank pain and urgency. Musculoskeletal: Negative for arthralgias, myalgias, neck pain and neck stiffness. Skin: Negative for color change, rash and wound. Allergic/Immunologic: Negative for environmental allergies, food allergies and immunocompromised state. Neurological: Positive for tremors. Negative for dizziness, seizures, syncope, weakness, light-headedness, numbness and headaches. Hematological: Negative for adenopathy. Does not bruise/bleed easily. Psychiatric/Behavioral: Negative for agitation, behavioral problems, confusion, hallucinations, self-injury and suicidal ideas. Past Medical History: Diagnosis Date Alcohol abuse Depression Elevated liver enzymes Suicidal ideation History reviewed. No pertinent surgical history. Social History Socioeconomic History Marital status: Single Spouse name: Not on file Number of children: Not on file Years of education: Not on file Highest education level: Not on file Occupational History Not on file Tobacco Use Smoking status: Never Smokeless tobacco: Never Vaping Use Vaping Use: Every day Substance and Sexual Activity Alcohol use: Yes Alcohol/week: 40.0 standard drinks of alcohol Types: 40 Shots of liquor per week Comment: pint of whiskey daily, states today he drank multiple malib[place] rums Drug use: Yes Types: Cocaine, Methamphetamine Comment: last used months ago Sexual activity: Not on file Other Topics Concern Not on file Social History Narrative Not on file Social Determinants of Health Financial Resource Strain: Not on file Food Insecurity: Not on file Transportation Needs: Not on file Physical Activity: Not on file Stress: Not on file Social Connections: Not on file Intimate Partner Violence: Not on file Housing Stability: Not on file History reviewed. No pertinent family history. Allergies: No Known Allergies Home Medications: No outpatient medications have been marked as taking for the 02/11/23 encounter (Hospital Encounter). Objective Exam: Vital Signs: Temp: 98 F (36.7 C) (02/12/23 0300) Temp Min: 98 F (36.7 C) Min taken time: 02/12/23 0300 Max: 98.2F (36.8 C) Max taken time: 02/11/23 2354 BP: 140/71 (02/12/23 1200) Pulse: 104 (02/12/23 1200) Resp: 16 (02/12/23 0300) SpO2: 100 % (02/12/23 030) Physical Exam Vitals reviewed. Constitutional: Appearance: Normal appearance. He is normal weight. HENT: Head: Normocephalic and atraumatic. Right Ear: External ear normal. Left Ear: External ear normal. Nose: Nose normal. No congestion or rhinorrhea. Mouth/Throat: Mouth: Mucous membranes are moist. Pharynx: No oropharyngeal exudate or posterior oropharyngeal erythema. Eyes: General: No scleral icterus. Right eye: No discharge. Left eye: No discharge. Conjunctiva/sclera: Conjunctivae normal. Cardiovascular: Rate and Rhythm: Normal rate and regular rhythm. Pulses: Normal pulses. Heart sounds: Normal heart sounds. No murmur heard. Pulmonary: Effort: Pulmonary effort is normal. No respiratory distress. Breath sounds: Normal breath sounds. No wheezing. Abdominal: General: Abdomen is flat. Bowel sounds are normal. There is no distension. Palpations: Abdomen is soft. Tenderness: There is no abdominal tenderness. Musculoskeletal: General: Normal range of motion. Cervical back: Normal range of motion. No rigidity or tenderness. Right lower leg: No edema. Left lower leg: No edema. Skin: General: Skin is warm and dry. Capillary Refill: Capillary refill takes less than 2 seconds. Coloration: Skin is not jaundiced. Neurological: General: No focal deficit present. Mental Status: He is alert and oriented to person, place, and time. Mental status is at baseline. Motor: Tremor present. Psychiatric: Mood and Affect: Mood is depressed. Speech: Speech normal. Behavior: Behavior normal. Behavior is cooperative. Thought Content: Thought content is not paranoid or delusional. Thought content includes suicidal ideation. Thought content does not include homicidal ideation. Thought content does not include suicidal plan. Judgment: Judgment normal. Diagnostic Data: Labs--Reviewed: Recent Results (from the past 24 hour(s)) COMPLETE BLOOD COUNT WITH DIFFERENTIAL Collection Time: 02/12/23 1:00 AM Result Value Ref Range WBC Count 8.3 3.5 - 10.9 K/uL RBC 5.36 4.14 - 5.80 M/uL Hemoglobin 15.7 13.0 - 17.7 g/dL Hematocrit 44.1 37.5 - 51.0 % MCV 82.3 80.0 - 100.0 fL MCH 29.3 26.0 - 34.0 pg MCHC 35.6 (H) 30.7 - 35.5 g/dL RDW 13.4 <=15.0 % Platelet Count 435 (H) 140 - 400 K/uL MPV 8.2 7.2 - 11.7 fL nRBC 0 <=0 /100 WBCs % Neutrophils 53.6 42.0 - 80.0 % % Lymphocytes 37.8 14.0 - 51.0 % % Monocytes 7.4 4.0 - 12.0 % % Eosinophils 0.5 0.0 - 5.0 % % Basophils 0.5 0.0 - 2.0 % % Immature Granulocyte 0.2 <1.0 % Absolute Neutrophils 4.4 1.8 - 7.5 K/uL Absolute Lymphocyte 3.1 0.9 - 4.1 K/uL Absolute Monocyte 0.6 0.2 - 1.0 K/uL Absolute Eosinophils 0.0 0.0 - 0.5 K/uL Absolute Basophil 0.0 0.0 - 0.3 K/uL Absolute Immature Granulocytes 0.0 0.0 - 0.1 K/uL Scan Result BASIC METABOLIC PANEL Collection Time: 02/12/23 1:01 AM Result Value Ref Range Sodium 141 135 - 148 mEq/L Potassium 4.1 3.4 - 5.3 mEq/L Chloride 106 96 - 110 mEq/L Carbon Dioxide 22 19 - 32 mEq/L BUN 18 3 - 29 mg/dL Creatinine 1.1 0.5 - 1.4 mg/dL Glucose 117 (H) 70 - 99 mg/dL Calcium 8.5 8.5 - 10.5 mg/dL Anion Gap 13 5 - 15 BUN/CREAT Ratio 16 7 - 25 Estimated GFR 88 >=60 mL/min/1.73m*2 HEPATIC FUNCTION PANEL Collection Time: 02/12/23 1:01 AM Result Value Ref Range Bilirubin,Total 0.3 0.0 - 1.2 mg/dL Bilirubin, Direct <0.2 0.0 - 0.4 mg/dL Bilirubin, Indirect Total Protein 6.8 6.0 - 8.3 g/dL Albumin 4.1 3.5 - 5.2 g/dL AST 42 0 - 46 U/L ALT 42 0 - 60 U/L Alkaline Phosphatase 108 23 - 144 U/L LIPASE Collection Time: 02/12/23 1:01 AM Result Value Ref Range Lipase 28 0 - 60 U/L ETHANOL Collection Time: 02/12/23 1:02 AM Result Value Ref Range Ethanol, Serum/Plasma 259 (H) <10 mg/dL GGT Collection Time: 02/12/23 1:02 AM Result Value Ref Range Gamma Glutamyl Transpeptidase 66 0 - 100 U/L Imaging- XR CHEST PA OR AP 1 VIEW (PORTABLE) Result Date: 01/13/2023 Chest History: Asymptomatic but had positive TB antigen blood work test recently, Nursing staff at his facility are requesting a chest x-ray. Had a negative chest x-ray 10 days ago, Abnormality on screening test, COMPARISON: 01/04/2023 Findings: Frontal view of the chest demonstrates no focal infiltrate. The heart size is within normal limits. IMPRESSION: No focal infiltrate. No radiographic evidence for active pulmonary tuberculosis. Dictated by Dennis Reyes MD, PhDWorkstation ID:[id number] 62 minutes spent in preparation of admission, including face to face encounter, discussions with the patient and family (if available), medication reconciliation, and review of medical record, tests. Discussed case, A&P with Dr. Pereira. Signature Electronically signed by: Pratibha Mohan APRN, 02/12/2023 2:15 PM Although we make reasonable efforts to review the dictation as it is transcribed, on occasion, the spoken word can be misinterpreted by technology leading to inaccurate words, phrases or sentences. Please review this document carefully and contact us if you notice any financial operations consultant errors or otherwise need clarification. documented in this encounterPretner [id number] Hospital Discharge instructions* Discharge Instructions* Lakia Randall LISW - 02/12/2023 7:40 AM EST Substance Use Treatment Resources Alcoholics Anonymous Central Office [email or web address] Email [email or web address] (for a list of online meetings in the area) Daily meetings available; also available in sign language [place] 24-hour Narcotics Anonymous hotline (471) 395-NMNN (0970) Daily meetings available www.[email or web address] Email: info@[email or web address] [facility] [address] [place] [address] [facility] [phone] [facility] *Withdrawal Management, Detox, Residential, Outpatient, Sober Living www.providence healthAvanzit [place]: [address] [place] [address] Call: or Text: [place]: [address] [place] [address] Rd., [address], [place] [address] Call: or Text: [facility] [employer]: [address] [place]. [address] Call: [facility] [email or web address] *Dual Diagnosis Outpatient Treatment [address] [place], [place] Walk-ins: Mon/Tue/Wed/Fri @ 9am & 1pm & Thurs @ 9am & 2pm [facility] [email or web address] *Dual Diagnosis Outpatient Treatment [address] [facility], [address], [place] [address] [place] [facility] *Educational, emotional, social, and recreational support to individuals, families, and communitiesthat suffer the devastation of active addiction Zoom meetings the Wednesday of each month; 12:00pm - 1:00pm For more information, please go online at: [email or web address] nelsonville health centerhipclub.[email or web address] [facility] *[place] Lightonus.com is a non-profit organization actively pooling resources to help those who are re-integrating into society during recovery. Email: monica@[place] H[employer] Magazine.Glass & MarkerFoneshow www.eÓtica.org Sober Living [address] [place] [address] [facility] *Groups, Resource referrals, Housing program, Job assistance, and more [address] [place] [address] (Office) [phone] Sterling Suárez: House & Rotary Shear Cutter Email: [email or web address] [facility] ([place]) www.[email or web address].org *Dual Diagnosis Outpatient Treatment [place]: [address] [place] [address] [place]: [address] [place] [address] [place]: [address] [place] [address] [facility] www.western missouri medical centerShanghai Yinzuo Haiya [employer] Electronics *Dual Diagnosis Outpatient Treatment [address] [place] [address] [facility] www.[email or web address] county general [email or web address] *Dual Diagnosis Outpatient Treatment & MAT [address] [facility], [place] [address] [facility] [email or web address] *Dual Diagnosis Outpatient Treatment, IOP, Aftercare (Suboxone, Sublocade, Naltrexone, Vivitrol) 24/7 Crisis Line: [place]: [address] [place] [address] Walk-in assessments: Mon/Wed @ 8:30am [place]: [address] [place] [address] Walk-in assessments: Tues/Thurs/Sat @ 8:30am [place]: [address] [facility] [place], [place] [id number] Walk-in assessments: Mon/Tues/Weds/Thurs @ 8:30am [place]: [address] [facility] [place] [address] Walk-in assessments: Tues/Thurs @ 8:30am [place]: [address], [place] [address] Walk-in assessments: Tues/Thurs @ 8:30am [place]: [address] [place] [address] Walk-in assessments: Mon/Weds@ 8:30am WHObyYOU Card [employer] ([facility]) www.alturasjoiz.Healthcare Bluebook *Dual Diagnosis Outpatient Treatment [address] [facility], [address], [place], [place] [address] [facility] Health www.[facility] hospitalp.org *Dual Diagnosis Outpatient Treatment [address] [place] [address] [facility] Anthony/Women's Sober Living Program www.[facility] the chronically illmission.org *Residential [address] [place] [address] [facility] www.Yuqing Electricupstate university hospitalJangl SMSskyline medical center.Healthcare Bluebook *Residential [address] [place] [address] Count Includes [facility] [email or web address] *Withdrawal management, Outpatient, IOP, Inpatient, Transitional Housing [address] [place], [place] [id number] [place]: [address] [place], [place] [id number] [place] www.osceolaglendaleAnalytiCon Discovery.Healthcare Bluebook *Withdrawal management, Outpatient, IOP, PHP, Inpatient [place] [address] [facility] *Withdrawal management, Outpatient, Inpatient [address], [place], [place] [address] [facility] - Addiction Services - Recovery Outreach Addiction Services: General number: Primo Portillo, LICDC-CS, GAMB, SHARED SERVICES MANAGER, PRE BILLING SPECIALIST, CPRS, (Manager Perioperative) Virgil Carter, PRE BILLING SPECIALIST, LCDC III, CPRS, (Wrapping Checker) [phone] Dee Cerda CDCA, CPRS : Wednesday through Wednesday 8am - 4:30pm Louise Phelps, CPRS : Wednesday through Wednesday 8am - 4:30pm Gabrielle Jefferson [facility], CDCA : Wednesday through Wednesday 11:30am - 8pm Darien Haley, [facility] : Wednesday 9am -7:30pm, Wednesday & Wednesday 10:30am - 9pm Aphutj5fy - 7pm Shannan Van, CPRS : Wednesday & 10:30am - 9pm, Wednesday & Wednesday 9am - 7:30pm Michael Guzman, CPRS : Wednesday through Wednesday 10:30am - 9pm [employer] www.NextPage.Healthcare Bluebook *Ambulatory detox, IOP, MAT for opioids [address] [facility], [address], [place] [address] Walk-ins: Wednesday-Wednesday - 8:30 am to 5:00 pm Medication Assisted Treatment [facility] (Suboxone and Vivitrol) [address] [place] [address], [place], [place] [address] [employer] (Methadone and Vivitrol) [address] [place], [place] [address] [place], [address] [facility] Outpatient (Vivitrol) [address] [place], [place] Walk-in assess: Wed-Wed 9am-3pm [facility] (Suboxone, Methadone, and Vivitrol) [address] [facility] [place] [address] Walk-in: Wed-Wed 5am-1pm, Sat 6am-10am [facility] (Suboxone, Subutex, and Vivitrol) [address] [facility], [address], [place] [address] [facility] Treatment [facility] (Methadone and Buprenorphine) [address] [place], [place] [id number] (363) [employer].(Vivitrol, Methadone) [address] [facility], [address], [place] [address] Walk-ins: Wednesday-Wednesday - 8:30 am to 5:00 pm [facility] (Suboxone and Vivitrol) [address] [place] [address] [address] [place] [address] [facility] (Suboxone and Vivitrol) [address] [place] [address] [facility] (Suboxone and Vivitrol) www.[email or web address] [address] [facility] [place] [address] [facility] (Suboxone and Vivitrol) www.wa[facility] health centerprettysecrets [place]: [address] [place] [address] Call: or Text: [place]: [address] [facility], [place] [address] Call: or Text: [place]: [facility]: [address] [facility] [place]. [address] Call: documented in this encounterGalion Community [id number] Emergency department Note* Balbir Saldivar RN - 02/12/2023 5:45 AM EST Pt resting comfortably. Respirations even and unlabored. [facility] [id number] Physician Emergency department Note* Abdulkadir Verma DO - 02/12/2023 12:11 AM EST TRIAGE CHIEF COMPLAINT: Chief Complaint Patient presents with Intoxication Suicidal Ideations HPI: Mckinley Roman is a 38 year old male who presents to the emergency department with intoxication. Patient states he has been on a cheema. He states he wants to and I cannot tell you have not had thoughts of killing myself. He states his stomach hurts and he feels nauseous. He states has been throwing up. Denies any hematemesis or coffee-ground emesis. No diarrhea. He does admit to drinking daily. Denies any homicidal ideation. External Records Reviewed: Hospitalization from 01/05/2023 for alcohol intoxication and suicidal ideations at that time REVIEW OF SYSTEMS: Otherwise negative unless stated above PAST MEDICAL HISTORY: Past Medical History: Diagnosis Date Alcohol abuse FAMILY HISTORY: History reviewed. No pertinent family history. SOCIAL HISTORY: Social History Socioeconomic History Marital status: Single Spouse name: Not on file Number of children: Not on file Years of education: Not on file Highest education level: Not on file Occupational History Not on file Tobacco Use Smoking status: Never Smokeless tobacco: Never Vaping Use Vaping Use: Every day Substance and Sexual Activity Alcohol use: Yes Alcohol/week: 40.0 standard drinks of alcohol Types: 40 Shots of liquor per week Comment: pint of whiskey daily, states today he drank multiple malibu rums Drug use: Yes Types: Cocaine, Methamphetamine Comment: last used months ago Sexual activity: Not on file Other Topics Concern Not on file Social History Narrative Not on file Social Determinants of Health Financial Resource Strain: Not on file Food Insecurity: Not on file Transportation Needs: Not on file Physical Activity: Not on file Stress: Not on file Social Connections: Not on file Intimate Partner Violence: Not on file Housing Stability: Not on file SURGICAL HISTORY: History reviewed. No pertinent surgical history. CURRENT MEDICATIONS: Current Facility-Administered Medications: ondansetron (ZOFRAN ODT) RAPID DISSOLVING tablet 4 mg, 4 mg, Oral, Once, Siesel, Abdulkadir M, DO famotidine (PEPCID) tablet 20 mg, 20 mg, Oral, Once, Siesel Abdulkadir M, DO Current Outpatient Medications: fluticasone propionate (FLONASE) 50 mcg/actuation nasal spray, 2 Sprays by Each Nostril route daily, Disp: 1 Each, Rfl: 0 folic acid (FOLATE) 1 mg tablet, Take 1 Tab by mouth daily, Disp: 30 Tab, Rfl: 0 buPROPion (WELLBUTRIN XL) 150 mg XL-tablet 24 Hr, Take 1 Tab by mouth daily BUPROPION XL 150 MG TABLET, EXTENDED RELEASE 24 HR Dispensed: 12/28/2022 12:00 AM Unit strength: 150 mg Days supply: 30 Quantity: 30 Tab Pharmacy: None Authorizing provider: None Received from: [email or web address] (Claim History, Acute Care) Brand or Generic: Generic, Disp: , Rfl: hydrOXYzine HCL (ATARAX) 50 mg tablet, Take 1 Tab by mouth every 6 hours as needed HYDROXYZINE PAMOATE 50 MG CAPSULE Dispensed: 12/21/2022 12:00 AM Unit strength: 50 mg Unit form: Capsule Days supply: 15 Quantity: 90 Cap Pharmacy: None Authorizing provider: None Received from: [email or web address] (Claim History, Acute Care) Brand or Generic: Generic, Disp: , Rfl: Melatonin (MELATONIN) 5 mg Tablet tablet, Take 1 Tab by mouth at bedtime MELATONIN 5 MG TABLET Dispensed: 12/31/2022 12:00 AM Unit strength: 5 mg Unit form: Tablet Days supply: 15 Quantity: 30 Tab Pharmacy: None Authorizing provider: None Received from: [email or web address] (Claim History, Acute Care) Brandor Generic: Generic, Disp: , Rfl: Config Med, NOT VALID FOR CONTROLLED SUBSTANCES,, You will need to get a release to return to work from your family provider, Disp: 1 Each, Rfl: 0 Config Med, NOT VALID FOR CONTROLLED SUBSTANCES,, To whom it may concern, This patient was hospitalized 01/05-01/07/2023. Will need to have a separate release from his family provider to return to work., Disp: 1 Each, Rfl: 0 Config Med, NOT VALID FOR CONTROLLED SUBSTANCES,, It is recommended that when you leave the hospital that you go to walk-in [facility], [facility] or [facility] for intake and placement, Disp: , Rfl: Config Med, NOT VALID FOR CONTROLLED SUBSTANCES,, You have elevated ALT liver enzyme and elevated eosinophil percentage on your blood work. This needs to be followed as outpatient. Advise that you refrain from alcohol and complete blood work ordered and follow-up with your primary care provider to go over results. The cause for these elevations could be from your alcohol use., Disp: , Rfl: omeprazole (PRILOSEC) [address]-capsule, Take 1 Cap by mouth daily, Disp: , Rfl: traZODone (DESYREL) 50 mg tablet, Take 1 Tab by mouth at bedtime, Disp: , Rfl: ALLERGIES: Patient has no known allergies. PHYSICAL EXAM: VITAL SIGNS: Vitals: 02/11/23 2354 BP: 130/84 Pulse: 97 Resp: 16 Temp: 98.2 F (36.8 C) SpO2: 98% CONSTITUTIONAL: Awake, oriented, appears non-toxic HENT: Atraumatic, normocephalic, oral mucosa pink and moist, airway patent. Nares patent without drainage. External ears normal. EYES: Conjunctiva clear NECK: Trachea midline, non-tender, supple CARDIOVASCULAR: Normal heart rate, Normal rhythm, No murmurs, rubs, gallops PULMONARY/CHEST: Clear to auscultation, no rhonchi, wheezes, or rales. Symmetrical breath sounds. Non-tender. ABDOMINAL: Non-distended, soft, non-tender - no rebound or guarding. NEUROLOGIC: Non-focal, moving all four extremities, no gross sensory or motor deficits. EXTREMITIES: No clubbing, cyanosis, or edema SKIN: Warm, Dry, No erythema, No rash Psych: Admits to suicidal thoughts, denies specific plan, denies homicidal ideations, tearful ED COURSE / MEDICAL DECISION MAKING: Mckinley L Voage is a 38 year old male who presents to the emergency department with alcohol intoxication and suicidal ideations. Vitals reviewed and reassuring. He is nontoxic-appearing and in no acute distress. He states his stomach is hurting, has benign nonperitoneal exam at this time obtain labs and treat supportively. In terms of his suicidal thoughts may be related intoxication, pink slip was placed given his active thoughts and risk. BMP with mild hyperglycemia, abdominal labs reassuring, CBC reassuring other than slightly elevated platelet. His ethanol is elevated at 259 consistent with alcohol intoxication. This time I did observe for sobriety and social evaluation. No further vomiting and had serial benign exams here on multiple rechecks. Contributing PMH: alcohol intoxication, depression Discussion of Management: Social Work I personally made/approved the management plan and take responsibility for the patient management. FINAL IMPRESSION: Alcohol intoxication Suicidal ideation Generalized abdominal pain Nausea and vomiting Electronically signed by: Abdulkadir Verma DO, 02/12/2023 12:11 AM [employer] Phone: [phone] Physician Emergency department Note* Kedar Delcid MD - 02/11/2023 11:42 PM EST TRIAGE CHIEF COMPLAINT: Chief Complaint Patient presents with Intoxication Suicidal Ideations HPI: Mckinley Roman is a 38 year old male with reported PMH of significant alcohol abuse who presents to the emergency department with alcohol intoxication and suicidal ideations. Patient brought inby medics as he was found on the street with reported alcohol intoxication and was reportedly making statements that he wants to . Patient here does not fully respond to all questions and is adamant that he get a sandwich. Whenever asked about suicidal ideations patient states I'd be lying ifI said no . Otherwise does not endorse any other hallucinations or medical problems or medications.Denies any other symptoms. Denies other substance use. External Records Reviewed: Patient was just evaluated in the emergency department yesterday for alcohol intoxication and ultimately discharged home. He had no SI or HI at that time. Brought in by Police Department. REVIEW OF SYSTEMS: Otherwise negative unless stated above PAST MEDICAL HISTORY: Past Medical History: Diagnosis Date Alcohol abuse FAMILY HISTORY: History reviewed. No pertinent family history. SOCIAL HISTORY: Social History Socioeconomic History Marital status: Single Spouse name: Not on file Number of children: Not on file Years of education: Not on file Highest education level: Not on file Occupational History Not on file Tobacco Use Smoking status: Never Smokeless tobacco: Never Vaping Use Vaping Use: Every day Substance and Sexual Activity Alcohol use: Yes Alcohol/week: 40.0 standard drinks of alcohol Types: 40 Shots of liquor per week Comment: pint of whiskey daily, states today he drank multiple [place] rums Drug use: Yes Types: Cocaine, Methamphetamine Comment: last used months ago Sexual activity: Not on file Other Topics Concern Not on file Social History Narrative Not on file Social Determinants of Health Financial Resource Strain: Not on file Food Insecurity: Not on file Transportation Needs: Not on file Physical Activity: Not on file Stress: Not on file Social Connections: Not on file Intimate Partner Violence: Not on file Housing Stability: Not on file SURGICAL HISTORY: History reviewed. No pertinent surgical history. CURRENT MEDICATIONS: No current facility-administered medications for this encounter. Current Outpatient Medications: fluticasone propionate (FLONASE) 50 mcg/actuation nasal spray, 2 Sprays by Each Nostril route daily, Disp: 1 Each, Rfl: 0 folic acid (FOLATE) 1 mg tablet, Take 1 Tab by mouth daily, Disp: 30 Tab, Rfl: 0 buPROPion (WELLBUTRIN XL) 150 mg XL-tablet 24 Hr, Take 1 Tab by mouth daily BUPROPION XL 150 MG TABLET, EXTENDED RELEASE 24 HR Dispensed: 12/28/2022 12:00 AM Unit strength: 150 mg Days supply: 30 Quantity: 30 Tab Pharmacy: None Authorizing provider: None Received from: [email or web address] (Claim History, Acute Care) Brand or Generic: Generic, Disp: , Rfl: hydrOXYzine HCL (ATARAX) 50 mg tablet, Take 1 Tab by mouth every 6 hours as needed HYDROXYZINE PAMOATE 50 MG CAPSULE Dispensed: 12/21/2022 12:00 AM Unit strength: 50 mg Unit form: Capsule Days supply: 15 Quantity: 90 Cap Pharmacy: None Authorizing provider: None Received from: [email or web address] (Claim History, Acute Care) Brand or Generic: Generic, Disp: , Rfl: Melatonin (MELATONIN) 5 mg Tablet tablet, Take 1 Tab by mouth at bedtime MELATONIN 5 MG TABLET Dispensed: 12/31/2022 12:00 AM Unit strength: 5 mg Unit form: Tablet Days supply: Quantity: 30 Tab Pharmacy: None Authorizing provider: None Received from: [facility] (Claim History, Acute Care) Brandor Generic: Generic, Disp: , Rfl: Config Med, NOT VALID FOR CONTROLLED SUBSTANCES,, You will need to get a release to return to work from your family provider, Disp: 1 Each, Rfl: 0 Config Med, NOT VALID FOR CONTROLLED SUBSTANCES,, To whom it may concern, This patient was hospitalized 01/05-01/07/2023. Will need to have a separate release from his family provider to return to work., Disp: 1 Each, Rfl: 0 Config Med, NOT VALID FOR CONTROLLED SUBSTANCES,, It is recommended that when you leave the hospital that you go to walk-in [facility], [facility] or [facility] for intake and placement, Disp: , Rfl: Config Med, NOT VALID FOR CONTROLLED SUBSTANCES,, You have elevated ALT liver enzyme and elevated eosinophil percentage on your blood work. This needs to be followed as outpatient. Advise that you refrain from alcohol and complete blood work ordered and follow-up with your primary care provider to go over results. The cause for these elevations could be from your alcohol use., Disp: , Rfl: omeprazole (PRILOSEC) [address]-capsule, Take 1 Cap by mouth daily, Disp: , Rfl: traZODone (DESYREL) 50 mg tablet, Take 1 Tab by mouth at bedtime, Disp: , Rfl: ALLERGIES: Patient has no known allergies. PHYSICAL EXAM: VITAL SIGNS: Vitals: 02/11/23 2354 02/12/23 0300 BP: 130/84 134/73 Pulse: 97 105 Resp: 16 16 Temp: 98.2 F (36.8 C) 98 F (36.7 C) SpO2: 98% 100% Physical Exam Constitutional: Comments: Tearful on examination HENT: Head: Normocephalic and atraumatic. Nose: Nose normal. Mouth/Throat: Mouth: Mucous membranes are moist. Pharynx: Oropharynx is clear. Eyes: Extraocular Movements: Extraocular movements intact. Conjunctiva/sclera: Conjunctivae normal. Cardiovascular: Rate and Rhythm: Normal rate and regular rhythm. Heart sounds: Normal heart sounds. Pulmonary: Effort: Pulmonary effort is normal. No respiratory distress. Breath sounds: Normal breath sounds. Abdominal: General: Abdomen is flat. There is no distension. Tenderness: There is abdominal tenderness. Musculoskeletal: General: Normal range of motion. Cervical back: Normal range of motion. Skin: General: Skin is warm. Neurological: General: No focal deficit present. Mental Status: He is alert. ED COURSE / MEDICAL DECISION MAKING: Mckinley Roman is 38 year old male who presents to the emergency department with reported alcohol intoxication with suicidal ideation. See HPI above for full history. Vital signs remarkable for afebrile and hemodynamically stable. Physical exam remarkable for tearful on examination otherwise normal heart sounds, no respiratory distress, moist mucous membranes, no focal deficits, some abdominal tenderness nonlocalized. Based on the information presented, obtained the following labs, tests, and imaging which were reviewed and provided the following interventions: Labs Reviewed BASIC METABOLIC PANEL - Abnormal; Notable for the following components: Result Value Glucose 117 (*) All other components within normal limits ETHANOL - Abnormal; Notable for the following components: Ethanol, Serum/Plasma 259 (*) All other components within normal limits Narrative: For Medical Purposes only. COMPLETE BLOOD COUNT WITH DIFFERENTIAL - Abnormal; Notable for the following components: MCHC 35.6 (*) Platelet Count 435 (*) All other components within normal limits LIPASE - Normal HEPATIC FUNCTION PANEL DRUG SCREEN, URINE No orders to display Medications ondansetron (ZOFRAN ODT) RAPID DISSOLVING tablet 4 mg (4 mg Oral Given 02/12/23 0120) famotidine (PEPCID) tablet 20 mg (20 mg Oral Given 02/12/23 0120) As patient is providing poor history and endorsing suicidal ideation, patient pink slipped and willobtain with abdominal labs as endorsing some abdominal pain. Will provide food as patient is adamant he gets a sandwich. Also given Zofran and Pepcid. No significant electrolyte abnormalities, hepatic function labs within normal no leukocytosis or anemia, no level 259. Discussed case with social work who states his sober time is 8 AM and they will evaluate at that time. Patient has been resting comfortably over course of ED stay. At this time, patient will be signed out to Dr. Johnathon Overton oncoming resident. Please see their note for final disposition and plan. If patient has been resolution of symptoms after sobriety and has safety plan in place with outpatient resources with social work evaluation and provider re-assessment, can likely be discharged home. However if continues to endorsesuicidal ideation once sober, will need further hospitalization and psychiatric care. Final Clinical Impression: 1. Alcoholic intoxication without complication (HC CODE) 2. Suicidal ideation Electronically signed by: Kedar Delcid MD, 02/12/2023 6:45 AM [facility]01-04-2024 Emergency department Note* Faby Montague RN - 02/11/2023 11:41 PM EST Patient arrived via medic after being found in the street intoxicated and claiming that he was on a 2 day cheema and wants to patient cooperative with staff and changed in to paper scrubs. A&O to per and place. Rr e/u [id number] Emergency department Note* Jennie Santiago RN - 02/10/2023 3:22 PM EST Patient discharged alert and oriented. Discharge paperwork reviewed. Denies further questions or concerns at this time. Encouraged to follow up as directed or return with worsening symptoms. [id number] Emergency department Note* Jennie Santiago RN - 02/10/2023 3:22 PM EST Patient discharged alert and oriented. Discharge paperwork reviewed. Denies further questions or concerns at this time. Encouraged to follow up as directed or return with worsening symptoms. * Jennie Santiago RN - 02/10/2023 3:14 PM EST Pt ambulated with steady gait. Provider aware. * Evelyn Sanchez MD - 02/10/2023 2:33 PM EST CHIEF COMPLAINT: Chief Complaint Patient presents with Intoxication ATTENDING NOTE: I discussed this patient's history and physical findings and reviewed the midlevel provider/resident findings with them, as well as performed an independent assessment and coordinated care with them.Any procedures were performed under my supervision. Mckinley Roman is a 38 year old male who presents with concern for alcohol intoxication. Patient presented via police. Per report from nursing staff, police reported that the patient was walking around and appeared confused. Patient has a little bit of historical alternans, initially stating that he does not do drugs or alcohol. He does not member what happened he does not remember where he was.He also states that he she is [facility]. However, he told nursing staff that hehad last drink this morning. The police also reported to nursing staff that he has a warrant that is too far away to enforce here. When this was reported to the patient, patient then stated that he had alcohol approximately 5 hours ago and he has never had withdrawal symptoms. No SI or HI. He states that he does not normally have a place to stay and sleeps wherever he wants to sleep on the street. He states that he wanders around regularly. He has no physical complaints at this time. Patient states that he just wants to go. Patient able to eat and drink without difficulty. Answering all appropriate orientation questions. No evidence of trauma. No nystagmus. No agitation, sweats, tremors, evidence of withdrawal at this time. Patient able to ambulate without difficulty. Patient clinically sober at this time and provided with a bus pass to the [facility] so he has an option to not wander the streets. Electronically signed by: Electronically Signed By: Evelyn Sanchez MD, 02/10/2023 * Darryl Kuhn MD - 02/10/2023 2:26 PM EST [facility] EMERGENCY DEPARTMENT RESIDENT NOTE TRIAGE CHIEF COMPLAINT: Chief Complaint Patient presents with Intoxication HPI: Mckinley Roman is a 38 year old male presents for evaluation of intoxication. Patient arrivesvia medic and PD after being found intoxicated wandering the streets. Denies SI/HI. Denies N/V. Denies falling or injury. He is oriented. States his last drink was 5 hours ago. Denies any other drug use. He is asking to be discharged. Patient is without additional complaints or concerns at this time. REVIEW OF SYSTEMS: Otherwise negative unless stated above PHYSICAL EXAM: VITAL SIGNS: The initial triage assessment is as follows: ED Vitals Temp: 97.8 F (36.6 C) (02/10/23 142) Temp Source: Oral (02/10/23 142) Pulse: 98 (02/10/23 142) Resp: 18 (02/10/231425) BP: (!) 139/92 (02/10/231425) MAP: Noninvasive: 106 mmHg (02/10/23 142) SpO2: 96 % (02/10/231425) Oxygen Source: Rm Air (02/10/231425) SpO2 Activity: Sitting (02/10/231425) Vitals during ED course were reviewed and are as charted. General: Awake, appears non-toxic. Disheveled appearing Head: NC/AT. ENMT: Normal external ears and nose. MMM. Oropharynx clear. Neck: Symmetric, trachea midline. No stridor. CV: Regular rate and rhythm. Peripheral pulses intact. No cyanosis or edema. Pulm/Chest: Normal respiratory effort. Breath sounds clear bilaterally Abdomen: Soft, non-distended, non-tender, no rebound or guarding. MSK: Nontender extremities without notable deformity. Skin: Warm, dry. No rashes or excoriations appreciated Neuro: Non-focal, moving all four extremities, no gross sensory or motor deficits. Slurred speech. Able to ambulate with steady gait. Psych: Coherent to thought and reason. Denies SI/HI. Denies visual or auditory hallucinations. HISTORY/MEDICATIONS/ALLERGIES REVIEW: PAST MEDICAL HISTORY: Past Medical History: Diagnosis Date Alcohol abuse PAST SURGICAL HISTORY: History reviewed. No pertinent surgical history. FAMILY HISTORY: History reviewed. No pertinent family history. SOCIAL HISTORY: Social History Socioeconomic History Marital status: Single Tobacco Use Smoking status: Never Smokeless tobacco: Never Vaping Use Vaping Use: Every day Substance and Sexual Activity Alcohol use: Yes Alcohol/week: 40.0 standard drinks of alcohol Types: 40 Shots of liquor per week Comment: pint of whiskey daily, states today he drank multiple [place] rums Drug use: Yes Types: Cocaine, Methamphetamine Comment: last used months ago CURRENT MEDICATIONS: No current facility-administered medications for this encounter. Current Outpatient Medications: fluticasone propionate (FLONASE) 50 mcg/actuation nasal spray, 2 Sprays by Each Nostril route daily, Disp: 1 Each, Rfl: 0 folic acid (FOLATE) 1 mg tablet, Take 1 Tab by mouth daily, Disp: 30 Tab, Rfl: 0 buPROPion (WELLBUTRIN XL) 150 mg XL-tablet 24 Hr, Take 1 Tab by mouth daily BUPROPION XL 150 MG TABLET, EXTENDED RELEASE 24 HR Dispensed: 12/28/2022 12:00 AM Unit strength: 150 mg Days supply: 30 Quantity: 30 Tab Pharmacy: None Authorizing provider: None Received from: [email or web address] (Claim History, Acute Care) Brand or Generic: Generic, Disp: , Rfl: hydrOXYzine HCL (ATARAX) 50 mg tablet, Take 1 Tab by mouth every 6 hours as needed HYDROXYZINE PAMOATE 50 MG CAPSULE Dispensed: 12/21/2022 12:00 AM Unit strength: 50 mg Unit form: Capsule Days supply: 15 Quantity: 90 Cap Pharmacy: None Authorizing provider: None Received from: [email or web address] (Claim History, Acute Care) Brand or Generic: Generic, Disp: , Rfl: Melatonin (MELATONIN) 5 mg Tablet tablet, Take 1 Tab by mouth at bedtime MELATONIN 5 MG TABLET Dispensed: 12/31/2022 12:00 AM Unit strength: 5 mg Unit form: Tablet Days supply: 15 Quantity: 30 Tab Pharmacy: None Authorizing provider: None Received from: [email or web address] (Claim History, Acute Care) Brandor Generic: Generic, Disp: , Rfl: Config Med, NOT VALID FOR CONTROLLED SUBSTANCES,, You will need to get a release to return to work from your family provider, Disp: 1 Each, Rfl: 0 Config Med, NOT VALID FOR CONTROLLED SUBSTANCES,, To whom it may concern, This patient was hospitalized 01/05-01/07/2023. Will need to have a separate release from his family provider to return to work., Disp: 1 Each, Rfl: 0 Config Med, NOT VALID FOR CONTROLLED SUBSTANCES,, It is recommended that when you leave the hospital that you go to walk-in [facility], [facility] or [facility] for intake and placement, Disp: , Rfl: Config Med, NOT VALID FOR CONTROLLED SUBSTANCES,, You have elevated ALT liver enzyme and elevated eosinophil percentage on your blood work. This needs to be followed as outpatient. Advise that you refrain from alcohol and complete blood work ordered and follow-up with your primary care provider to go over results. The cause for these elevations could be from your alcohol use., Disp: , Rfl: omeprazole (PRILOSEC) [address]-capsule, Take 1 Cap by mouth daily, Disp: , Rfl: traZODone (DESYREL) 50 mg tablet, Take 1 Tab by mouth at bedtime, Disp: , Rfl: ALLERGIES: Patient has no known allergies. I have reviewed and verified the above past medical, surgical, family, and social history. As well as the above medications and allergies. ED COURSE/MEDICAL DECISION MAKIN38 year old male presents with: Chief Complaint Patient presents with Intoxication History and physical examination as above. Patient presents intoxicated, denying homicidal or suicidal ideation. He specifically asking to leave, he is alert and oriented. He is denying falls, no evidence of traumatic injury, bony deformity, neurologic deficit on my examination. Does not appear to be a harm to himself, do not believe I have authority to involuntarily hold patient. He specifically asking to be discharged. I provided him with food and drink at bedside which she tolerated. I did watch him ambulate with a steady gait. I did also offer to allow patient to remain in the emergency department until sober, he is denying this. Will provide patient [facility]. Reviewed non-ED records: Prior ED visits Escalation to admission/observation considered and patient safe for outpatient follow-up with strict return precautions followed and close primary care follow-up Billable Critical Care Time: None or <30 minutes The patient received the following medications in the ED: Medications - No data to display The exam and findings were discussed with the patient and they were deemed to have capacity and were comfortable with the plan. All questions and concerns addressed. Strict return to care precautionswere provided. CLINICAL IMPRESSION: 1. Alcoholic intoxication without complication (HC CODE) DISPOSITION: Discharge Seen and discussed with attending physician who was in agreement with assessment and plan. Electronically signed by Darryl Kuhn MD Emergency Medicine, PGY-2 02/10/2023, 3:22 PM * Jennie Santiago RN - 02/10/2023 2:23 PM EST Pt arrives via medic and PD after being intoxicated wandering the streets. Pt denies SI/HI. Denies N/V. Denies headache. Pt states the last time he had a drink was 4 hours ago, pt states he has only had a few ounces today. Pt A&Ox4 RRe/u. * Yoana Madrid RN - 02/10/2023 2:21 PM EST Bed: [facility]18 Expected date: Expected time: Means of arrival: Comments: lupis documented in this encounterGal[facility] [id number] Hospital Discharge instructions* Discharge Instructions* Darryl Kuhn MD - 02/10/2023 3:15 PM EST Should you have worsening of your symptoms, severe changes in your symptoms, please return to the emergency department for reevaluation. Today's evaluation is only a snapshot in time. Dangerous or deadly disease may be missed, as it could be early in the disease process. Please follow-up with your primary care physician after your visit in the emergency department today. If you do not have one, information has been placed in your discharge instructions on how to obtain one. Use all of your current medications as prescribed. Some medication such as narcotics, muscle relaxants, and nausea medications can impair your ability to drive or use machinery. You need to take proper precautions with these medications. Read the package instructions and ask your pharmacist or doctor if you have additional questions. * Attachments The following attachments cannot be sent through Care Everywhere. * Alcohol Use Disorder: General Info (Palestinian) * Alcohol Intoxication: Acute (Palestinian) documented in this encounterGalion Community [id number] Emergency department Note* Jennie Santiago RN - 02/10/2023 3:14 PM EST Pt ambulated with steady gait. Provider aware. [id number] Physician Emergency department Note* Evelyn Sanchez MD - 02/10/2023 2:33 PM EST CHIEF COMPLAINT: Chief Complaint Patient presents with Intoxication ATTENDING NOTE: I discussed this patient's history and physical findings and reviewed the midlevel provider/resident findings with them, as well as performed an independent assessment and coordinated care with them.Any procedures were performed under my supervision. Mckinley Roman is a 38 year old male who presents with concern for alcohol intoxication. Patient presented via police. Per report from nursing staff, police reported that the patient was walking around and appeared confused. Patient has a little bit of historical alternans, initially stating that he does not do drugs or alcohol. He does not member what happened he does not remember where he was.He also states that he she is [facility]. However, he told nursing staff that hehad last drink this morning. The police also reported to nursing staff that he has a warrant that is too far away to enforce here. When this was reported to the patient, patient then stated that he had alcohol approximately 5 hours ago and he has never had withdrawal symptoms. No SI or HI. He states that he does not normally have a place to stay and sleeps wherever he wants to sleep on the street. He states that he wanders around regularly. He has no physical complaints at this time. Patient states that he just wants to go. Patient able to eat and drink without difficulty. Answering all appropriate orientation questions. No evidence of trauma. No nystagmus. No agitation, sweats, tremors, evidence of withdrawal at this time. Patient able to ambulate without difficulty. Patient clinically sober at this time and provided with a bus pass to the [facility] so he has an option to not wander the streets. Electronically signed by: Electronically Signed By: Evelyn Sanchez MD, 02/10/2023 [place] Work Phone: 1(104) 792-116001-03-2024 Physician Emergency department Note* Darryl Kuhn MD - 02/10/2023 2:26 PM EST [facility] EM[facility]GENCY DEPART[facility] RESIDENT NOTE TRIAGE CHIEF COMPLAINT: Chief Complaint Patient presents with Intoxication HPI: Mckinley Roman is a 38 year old male presents for evaluation of intoxication. Patient arrivesvia medic and PD after being found intoxicated wandering the streets. Denies SI/HI. Denies N/V. Denies falling or injury. He is oriented. States his last drink was 5 hours ago. Denies any other drug use. He is asking to be discharged. Patient is without additional complaints or concerns at this time. REVIEW OF SYSTEMS: Otherwise negative unless stated above PHYSICAL EXAM: VITAL SIGNS: The initial triage assessment is as follows: ED Vitals Temp: 97.8 F (36.6 C) (02/10/23 1426) Temp Source: Oral (02/10/23 142) Pulse: 98 (02/10/23 1426) Resp: 18 (02/10/23 1426) BP: (!) 139/92 (02/10/23 1426) MAP: Noninvasive: 106 mmHg (02/10/23 1426) SpO2: 96 % (02/10/23 1426) Oxygen Source: Rm Air (02/10/23 1426) SpO2 Activity: Sitting (02/10/23 142) Vitals during ED course were reviewed and are as charted. General: Awake, appears non-toxic. Disheveled appearing Head: NC/AT. ENMT: Normal external ears and nose. MMM. Oropharynx clear. Neck: Symmetric, trachea midline. No stridor. CV: Regular rate and rhythm. Peripheral pulses intact. No cyanosis or edema. Pulm/Chest: Normal respiratory effort. Breath sounds clear bilaterally Abdomen: Soft, non-distended, non-tender, no rebound or guarding. MSK: Nontender extremities without notable deformity. Skin: Warm, dry. No rashes or excoriations appreciated Neuro: Non-focal, moving all four extremities, no gross sensory or motor deficits. Slurred speech. Able to ambulate with steady gait. Psych: Coherent to thought and reason. Denies SI/HI. Denies visual or auditory hallucinations. HISTORY/MEDICATIONS/ALLERGIES REVIEW: PAST MEDICAL HISTORY: Past Medical History: Diagnosis Date Alcohol abuse PAST SURGICAL HISTORY: History reviewed. No pertinent surgical history. FAMILY HISTORY: History reviewed. No pertinent family history. SOCIAL HISTORY: Social History Socioeconomic History Marital status: Single Tobacco Use Smoking status: Never Smokeless tobacco: Never Vaping Use Vaping Use: Every day Substance and Sexual Activity Alcohol use: Yes Alcohol/week: 40.0 standard drinks of alcohol Types: 40 Shots of liquor per week Comment: pint of whiskey daily, states today he drank multiple [place] rums Drug use: Yes Types: Cocaine, Methamphetamine Comment: last used months ago CURRENT MEDICATIONS: No current facility-administered medications for this encounter. Current Outpatient Medications: fluticasone propionate (FLONASE) 50 mcg/actuation nasal spray, 2 Sprays by Each Nostril route daily, Disp: 1 Each, Rfl: 0 folic acid (FOLATE) 1 mg tablet, Take 1 Tab by mouth daily, Disp: 30 Tab, Rfl: 0 buPROPion (WELLBUTRIN XL) 150 mg XL-tablet 24 Hr, Take 1 Tab by mouth daily BUPROPION XL 150 MG TABLET, EXTENDED RELEASE 24 HR Dispensed: 12/28/2022 12:00 AM Unit strength: 150 mg Days supply: 30 Quantity: 30 Tab Pharmacy: None Authorizing provider: None Received from: [email or web address] (Claim History, Acute Care) Brand or Generic: Generic, Disp: , Rfl: hydrOXYzine HCL (ATARAX) 50 mg tablet, Take 1 Tab by mouth every 6 hours as needed HYDROXYZINE PAMOATE 50 MG CAPSULE Dispensed: 12/21/2022 12:00 AM Unit strength: 50 mg Unit form: Capsule Days supply: 15 Quantity: 90 Cap Pharmacy: None Authorizing provider: None Received from: [email or web address] (Claim History, Acute Care) Brand or Generic: Generic, Disp: , Rfl: Melatonin (MELATONIN) 5 mg Tablet tablet, Take 1 Tab by mouth at bedtime MELATONIN 5 MG TABLET Dispensed: 12/31/2022 12:00 AM Unit strength: 5 mg Unit form: Tablet Days supply: 15 Quantity: 30 Tab Pharmacy: None Authorizing provider: None Received from: [facility] (Claim History, Acute Care) Brandor Generic: Generic, Disp: , Rfl: Config Med, NOT VALID FOR CONTROLLED SUBSTANCES,, You will need to get a release to return to work from your family provider, Disp: 1 Each, Rfl: 0 Config Med, NOT VALID FOR CONTROLLED SUBSTANCES,, To whom it may concern, This patient was hospitalized 01/05-01/07/2023. Will need to have a separate release from his family provider to return to work., Disp: 1 Each, Rfl: 0 Config Med, NOT VALID FOR CONTROLLED SUBSTANCES,, It is recommended that when you leave the hospital that you go to walk-in Access, [facility] or [facility] for intake and placement, Disp: , Rfl: Config Med, NOT VALID FOR CONTROLLED SUBSTANCES,, You have elevated ALT liver enzyme and elevated eosinophil percentage on your blood work. This needs to be followed as outpatient. Advise that you refrain from alcohol and complete blood work ordered and follow-up with your primary care provider to go over results. The cause for these elevations could be from your alcohol use., Disp: , Rfl: omeprazole (PRILOSEC) [address]-capsule, Take 1 Cap by mouth daily, Disp: , Rfl: traZODone (DESYREL) 50 mg tablet, Take 1 Tab by mouth at bedtime, Disp: , Rfl: ALLERGIES: Patient has no known allergies. I have reviewed and verified the above past medical, surgical, family, and social history. As well as the above medications and allergies. ED COURSE/MEDICAL DECISION MAKIN38 year old male presents with: Chief Complaint Patient presents with Intoxication History and physical examination as above. Patient presents intoxicated, denying homicidal or suicidal ideation. He specifically asking to leave, he is alert and oriented. He is denying falls, no evidence of traumatic injury, bony deformity, neurologic deficit on my examination. Does not appear to be a harm to himself, do not believe I have authority to involuntarily hold patient. He specifically asking to be discharged. I provided him with food and drink at bedside which she tolerated. I did watch him ambulate with a steady gait. I did also offer to allow patient to remain in the emergency department until sober, he is denying this. Will provide patient with bus pass back to the [facility] for safe residence. Reviewed non-ED records: Prior ED visits Escalation to admission/observation considered and patient safe for outpatient follow-up with strict return precautions followed and close primary care follow-up Billable Critical Care Time: None or <30 minutes The patient received the following medications in the ED: Medications - No data to display The exam and findings were discussed with the patient and they were deemed to have capacity and were comfortable with the plan. All questions and concerns addressed. Strict return to care precautionswere provided. CLINICAL IMPRESSION: 1. Alcoholic intoxication without complication (HC CODE) DISPOSITION: Discharge Seen and discussed with attending physician who was in agreement with assessment and plan. Electronically signed by Darryl Kuhn MD Emergency Medicine, PGY-2 02/10/2023, 3:22 PM [facility]01-03-2024 Emergency department Note* Jennie Santiago RN - 02/10/2023 2:23 PM EST Pt arrives via medic and PD after being intoxicated wandering the streets. Pt denies SI/HI. Denies N/V. Denies headache. Pt states the last time he had a drink was 4 hours ago, pt states he has only had a few ounces today. Pt A&Ox4 RRe/u. [facility]01-03-2024 Emergency department Note* Yoana Madrid RN - 02/10/2023 2:21 PM EST Bed: [facility]18 Expected date: Expected time: Means of arrival: Comments: lupis [facility]01-01-2024 Emergency department Note* Clotilde Reynolds RN - 02/08/2023 8:54 AM EST Patient discharged to home, alert and oriented, skin warm, dry and pink. Denies needs and or questions. Will follow-up as directed, patient encouraged to return for worsening or new symptoms or otherconcerns. [id number] Emergency department Note* Clotilde Reynolds RN - 02/08/2023 8:54 AM EST Patient discharged to home, alert and oriented, skin warm, dry and pink. Denies needs and or questions. Will follow-up as directed, patient encouraged to return for worsening or new symptoms or otherconcerns. * Yoana Friedman RN - 02/08/2023 7:10 AM EST Report given to Clotilde TAY. * Yoana Friedman RN - 02/08/2023 6:10 AM EST Pt ambulatory to ED bathroom with steady gait and returned to O73. Pt provided additional PO snack,denied needs. Yoana Jeffers RN - 02/08/2023 5:18 AM EST Pt resting on cot, eyes closed. Resp even and unlabored. Yoana Jeffers RN - 02/08/2023 4:03 AM EST Pt resting on cot, no needs verbalized. Resp even and unlabored. Yoana Jeffers RN - 02/08/2023 2:42 AM EST Pt provided additional PO snack. Pt began cussing at this RN, returned to bed eating sandwich. * Yoana Friedman RN - 02/08/2023 1:01 AM EST Pt resting on cot, eyes closed. No needs verbalized, resp even and unlabored. * Yoana Friedman RN - 02/08/2023 12:15 AM EST Pt provided PO snack. * Jourdan Davis DO - 02/07/2023 11:51 PM EST Patient presents by way of [place] [employer] as he was found sleeping in a bar and admits todrinking copious amounts alcohol today. On chart review he also has history of alcohol abuse in thepast. The patient that reports he does not have anybody that can get him and does not have a sober ride. The patient on head to toe evaluation has no signs of obvious traumatic injuries. No signs of a ny obvious head trauma. No bruising or bleeding. Patient will be observed in bed 73 until he is clinically sober and can find his way back home. Otherwise at this point, I do not believe the blood work or imaging is warranted given the clinical history and overall presentation. We will do a secondary examination on this patient once clinically sober otherwise we will discharge him when he is moreappropriate. Addendum: Patient reassessed at 6:45 AM. Patient is definitely more clinically sober but would likea little more time to sober up. Will continue with p.o. fluids and will reassess in 1 hour and hopefully discharge him home I have personally seen and examined this patient. I have fully participated in the care of this patient and I have reviewed and agree with all pertinent clinical information including history, physical exam, and plan. I have also reviewed and agree with the medications, allergies and past medical history section for this patient. Electronically signed by: Jourdan Davis DO, 02/07/2023 11:53 PM * Uriah Gomez RN - 02/07/2023 11:21 PM EST Pt arrives ambulatory to triage escorted by [employer]. Pt was found sleeping in a bar parking lot. [facility] refused pt. Pt reports drinking whiskey today. Unsure of amont. Estimates it was 3 fifths of whiskey. Pt has slurred speech but is cooperative at this time. documented in this encounterGalion Community [id number] Emergency department Note* Yoana Friedman RN - 02/08/2023 7:10 AM EST Report given to Clotilde TAY. [facility] [id number] Hospital Discharge instructions* Discharge Instructions * Santos Mcguire DO - 02/08/2023 6:54 AM EST Please follow up with your PCP after today's visit. Please use [facility] and [facility] resources that is provided for you. Return to ED for evaluation if you observed any new or worsening symptoms that may be concerning to you. documented in this encounterGalion Community [id number] Emergency department Note* Yoana Friedman RN - 02/08/2023 6:10 AM EST Pt ambulatory to ED bathroom with steady gait and returned to O73. Pt provided additional PO snack,denied needs. [facility]01-01-2024 Emergency department Note* Yoana Friedman RN - 02/08/2023 5:18 AM EST Pt resting on cot, eyes closed. Resp even and unlabored. [facility]01-01-2024 Emergency department Note* Yoana Friedman RN - 02/08/2023 4:03 AM EST Pt resting on cot, no needs verbalized. Resp even and unlabored. [facility]01-01-2024 Emergency department Note* Yoana Friedman RN - 02/08/2023 2:42 AM EST Pt provided additional PO snack. Pt began cussing at this RN, returned to bed eating sandwich. [facility] [id number] Emergency department Note* Yoana Friedman RN - 02/08/2023 1:01 AM EST Pt resting on cot, eyes closed. No needs verbalized, resp even and unlabored. [facility]01-01-2024 Emergency department Note* Yoana Friedman RN - 02/08/2023 12:15 AM EST Pt provided PO snack. [facility] [id number] Physician Emergency department Note* Jourdan Davis DO - 02/07/2023 11:51 PM EST Patient presents by way of [place] [employer] as he was found sleeping in a bar and admits todrinking copious amounts alcohol today. On chart review he also has history of alcohol abuse in theiast. The patient that reports he does not have anybody that can get him and does not have a sober ride. The patient on head to toe evaluation has no signs of obvious traumatic injuries. No signs of a ny obvious head trauma. No bruising or bleeding. Patient will be observed in bed 73 until he is clinically sober and can find his way back home. Otherwise at this point, I do not believe the blood work or imaging is warranted given the clinical history and overall presentation. We will do a secondary examination on this patient once clinically sober otherwise we will discharge him when he is moreappropriate. Addendum: Patient reassessed at 6:45 AM. Patient is definitely more clinically sober but would likea little more time to sober up. Will continue with p.o. fluids and will reassess in 1 hour and hopefully discharge him home I have personally seen and examined this patient. I have fully participated in the care of this patient and I have reviewed and agree with all pertinent clinical information including history, physical exam, and plan. I have also reviewed and agree with the medications, allergies and past medical history section for this patient. Electronically signed by: Jourdan Davis DO, 02/07/2023 11:53 PM [facility] [employer] Work Phone: 1(142) 579-630912-31-2023 History of Present illness Narrative* Marisol Thrasher LPC - 02/07/2023 11:43 PM EST Counselor received request from ED Resident, Dr. Mcguire, to provide pt with substance use treatment resources. Pt is a 38 y/o male who presents to the ED with c/o intoxication. Per chart, pthas hx alcohol intoxication and reportedly left treatment at [facility] 11/01/2022. [facility] placed resources in [facility] for [facility] walk-in, [facility], and [facility] documented in this encounterGalion Community [id number] Emergency department Note* Uriah Gomez RN - 02/07/2023 11:21 PM EST Pt arrives ambulatory to triage escorted by [employer]. Pt was found sleeping in a bar parking lot[facility]. Pt reports drinking whiskey today. Unsure of amont. Estimates it was 3 fifths of whiskey. Pt has slurred speech but is cooperative at this time. [facility] [id number] Emergency department Note* Cheryl Martinez RN - 01/16/2023 11:34 AM EST Patient ready for discharge. Discharge instructions reviewed with patient including all prescriptions; all questions answered. [facility] [id number] Emergency department Note* Cheryl Martinez RN - 01/16/2023 11:34 AM EST Patient ready for discharge. Discharge instructions reviewed with patient including all prescriptions; all questions answered. * Cheryl Martinez RN - 01/16/2023 11:27 AM EST Patient arrives via police for fpc clearance. Patient A&O, resp e/u, skin warm and dry. Patient agitated and visibly upset, yelling multiple expletives at campus police. * Ezequiel Garcia MD - 01/16/2023 11:27 AM EST TRIAGE CHIEF COMPLAINT: Chief Complaint Patient presents with Medical Problem HPI: Mckinley Roman is a 37 year old male past medical history cocaine use, methamphetamine use, alcohol abuse who presents to the emergency department with fpc clearance. Patient is brought in by PD for intoxication and disorderly conduct. Patient is yelling at staff. He does endorse alcohol usehowever does not endorse any other substance use. He denies chest pain, shortness of breath, nausea, vomiting, diarrhea, abdominal pain. REVIEW OF SYSTEMS: Review of Systems Constitutional: Negative. HENT: Negative. Eyes: Negative. Respiratory: Negative. Cardiovascular: Negative. Gastrointestinal: Negative. Genitourinary: Negative. Musculoskeletal: Negative. Neurological: Negative. Psychiatric/Behavioral: Negative. PAST MEDICAL HISTORY: Past Medical History: Diagnosis Date Alcohol abuse PROBLEM LIST Patient Active Problem List Diagnosis Alcohol abuse with withdrawal (HC CODE) Suicidal ideations Cocaine use Methamphetamine use (HC CODE) Nicotine dependence Vapes nicotine containing substance FAMILY HISTORY: History reviewed. No pertinent family history. SOCIAL HISTORY: Social History Socioeconomic History Marital status: Single Spouse name: Not on file Number of children: Not on file Years of education: Not on file Highest education level: Not on file Occupational History Not on file Tobacco Use Smoking status: Never Smokeless tobacco: Never Vaping Use Vaping Use: Every day Substance and Sexual Activity Alcohol use: Yes Alcohol/week: 40.0 standard drinks of alcohol Types: 40 Shots of liquor per week Comment: pint of whiskey daily, states today he drank multiple [place] rums Drug use: Yes Types: Cocaine, Methamphetamine Comment: last used months ago Sexual activity: Not on file Other Topics Concern Not on file Social History Narrative Not on file Social Determinants of Health Financial Resource Strain: Not on file Food Insecurity: Not on file Transportation Needs: Not on file Physical Activity: Not on file Stress: Not on file Social Connections: Not on file Intimate Partner Violence: Not on file Housing Stability: Not on file SURGICAL HISTORY: History reviewed. No pertinent surgical history. CURRENT MEDICATIONS: No current facility-administered medications for this encounter. Current Outpatient Medications: fluticasone propionate (FLONASE) 50 mcg/actuation nasal spray, 2 Sprays by Each Nostril route daily, Disp: 1 Each, Rfl: 0 folic acid (FOLATE) 1 mg tablet, Take 1 Tab by mouth daily, Disp: 30 Tab, Rfl: 0 THEREMS-M 9 mg iron-400 mcg tablet, Take 1 Tab by mouth daily for 30 days, Disp: 30 Tab, Rfl: 0 thiamine (VITAMIN B1) 100 mg tablet, Take 1 Tab by mouth daily for 30 days, Disp: 30 Tab, Rfl: 0 buPROPion (WELLBUTRIN XL) 150 mg XL-tablet 24 Hr, Take 1 Tab by mouth daily BUPROPION XL 150 MG TABLET, EXTENDED RELEASE 24 HR Dispensed: 12/28/2022 12:00 AM Unit strength: 150 mg Days supply: 30 Quantity: 30 Tab Pharmacy: None Authorizing provider: None Received from: [email or web address] (Claim History, Acute Care) Brand or Generic: Generic, Disp: , Rfl: hydrOXYzine HCL (ATARAX) 50 mg tablet, Take 1 Tab by mouth every 6 hours as needed HYDROXYZINE PAMOATE 50 MG CAPSULE Dispensed: 12/21/2022 12:00 AM Unit strength: 50 mg Unit form: Capsule Days supply: 15 Quantity: 90 Cap Pharmacy: None Authorizing provider: None Received from: [email or web address] (Claim History, Acute Care) Brand or Generic: Generic, Disp: , Rfl: nicotine (HABITROL) 14 mg/24 hr transdermal patch, 1 Patch by Transdermal route daily for 30 days, Disp: 30 Patch, Rfl: 0 Melatonin (MELATONIN) 5 mg Tablet tablet, Take 1 Tab by mouth at bedtime MELATONIN 5 MG TABLET Dispensed: 12/31/2022 12:00 AM Unit strength: 5 mg Unit form: Tablet Days supply: 15 Quantity: 30 Tab Pharmacy: None Authorizing provider: None Received from: [email or web address] (Claim History, Acute Care) Brandor Generic: Generic, Disp: , Rfl: Config Med, NOT VALID FOR CONTROLLED SUBSTANCES,, You will need to get a release to return to work from your family provider, Disp: 1 Each, Rfl: 0 Config Med, NOT VALID FOR CONTROLLED SUBSTANCES,, To whom it may concern, This patient was hospitalized 01/05-01/07/2023. Will need to have a separate release from his family provider to return to work., Disp: 1 Each, Rfl: 0 Config Med, NOT VALID FOR CONTROLLED SUBSTANCES,, It is recommended that when you leave the hospital that you go to walk-in Access, [facility] or [facility] for intake and placement, Disp: , Rfl: Config Med, NOT VALID FOR CONTROLLED SUBSTANCES,, You have elevated ALT liver enzyme and elevated eosinophil percentage on your blood work. This needs to be followed as outpatient. Advise that you refrain from alcohol and complete blood work ordered and follow-up with your primary care provider to go over results. The cause for these elevations could be from your alcohol use., Disp: , Rfl: omeprazole (PRILOSEC) [address]-capsule, Take 1 Cap by mouth daily, Disp: , Rfl: traZODone (DESYREL) 50 mg tablet, Take 1 Tab by mouth at bedtime, Disp: , Rfl: ALLERGIES: Patient has no known allergies. PHYSICAL EXAM: VITAL SIGNS: Vitals: 01/16/23 1127 BP: (!) 142/98 Pulse: 79 Resp: 16 Temp: 97.7 F (36.5 C) SpO2: 99% Physical Exam Vitals and nursing note reviewed. Constitutional: Appearance: Normal appearance. He is normal weight. HENT: Head: Normocephalic and atraumatic. Nose: Nose normal. Mouth/Throat: Mouth: Mucous membranes are moist. Pharynx: Oropharynx is clear. Eyes: Extraocular Movements: Extraocular movements intact. Conjunctiva/sclera: Conjunctivae normal. Pupils: Pupils are equal, round, and reactive to light. Cardiovascular: Rate and Rhythm: Normal rate and regular rhythm. Pulses: Normal pulses. Heart sounds: Normal heart sounds. Pulmonary: Effort: Pulmonary effort is normal. Breath sounds: Normal breath sounds. Abdominal: Palpations: Abdomen is soft. Musculoskeletal: General: Normal range of motion. Cervical back: Normal range of motion and neck supple. Skin: General: Skin is warm and dry. Capillary Refill: Capillary refill takes less than 2 seconds. Neurological: General: No focal deficit present. Mental Status: He is alert and oriented to person, place, and time. Mental status is at baseline. ED COURSE / MEDICAL DECISION MAKING: Impression and Ddx: Mckinley Roman is a 37 year old male who presents to the emergency department with clearance. Initial vital signs blood pressure 142/98, temperature 97.7, pulse 79, respirations 16, SpO2 99% on roomair. Evaluation and Disposition: Patient has no acute complaints. He is ANO x 4, GCS 15. He is able to ambulate without difficulty. Based on assessment, physical exam and history patient is medically clear for discharge to fpc. He was discharged in stable condition. Medications to be Initiated at Time of Discharge: New Prescriptions No medications on file Independent Historian: None External Records Review: None Independent Interpretation of Studies: None Discussion of Management: None Escalation/De-Escalation of Care: Appropriate for outpatient management Billable Critical Care Time: None or <30 minutes Additional Considerations Affecting Care: None Condition at Disposition: Stable Diagnosis ICD-10-CM ICD-9-CM 1. Encounter for medical screening examination Z13.9 V82.9 Patient seen and discussed with Dr. Bernabe Electronically signed by: Ezequiel Garcia MD Emergency Medicine 01/16/2023 11:39 AM documented in this encounterGalion Community [id number] Hospital Discharge instructions* Discharge Instructions* Ezequiel Garcia MD - 01/16/2023 11:29 AM EST Mckinley Roman is medically cleared to go to long-term. If you have any other concerns please returnthe emergency department for evaluation. documented in this encounterGalion Community [id number] Emergency department Note* Cheryl Martinez RN - 01/16/2023 11:27 AM EST Patient arrives via police for fpc clearance. Patient A&O, resp e/u, skin warm and dry. Patient agitated and visibly upset, yelling multiple expletives at campus police. [facility] [id number] Physician Emergency department Note* Ezequiel Garcia MD - 01/16/2023 11:27 AM EST TRIAGE CHIEF COMPLAINT: Chief Complaint Patient presents with Medical Problem HPI: Mckinley Roman is a 37 year old male past medical history cocaine use, methamphetamine use, alcohol abuse who presents to the emergency department with fpc clearance. Patient is brought in by PD for intoxication and disorderly conduct. Patient is yelling at staff. He does endorse alcohol usehowever does not endorse any other substance use. He denies chest pain, shortness of breath, nausea, vomiting, diarrhea, abdominal pain. REVIEW OF SYSTEMS: Review of Systems Constitutional: Negative. HENT: Negative. Eyes: Negative. Respiratory: Negative. Cardiovascular: Negative. Gastrointestinal: Negative. Genitourinary: Negative. Musculoskeletal: Negative. Neurological: Negative. Psychiatric/Behavioral: Negative. PAST MEDICAL HISTORY: Past Medical History: Diagnosis Date Alcohol abuse PROBLEM LIST Patient Active Problem List Diagnosis Alcohol abuse with withdrawal (HC CODE) Suicidal ideations Cocaine use Methamphetamine use (HC CODE) Nicotine dependence Vapes nicotine containing substance FAMILY HISTORY: History reviewed. No pertinent family history. SOCIAL HISTORY: Social History Socioeconomic History Marital status: Single Spouse name: Not on file Number of children: Not on file Years of education: Not on file Highest education level: Not on file Occupational History Not on file Tobacco Use Smoking status: Never Smokeless tobacco: Never Vaping Use Vaping Use: Every day Substance and Sexual Activity Alcohol use: Yes Alcohol/week: 40.0 standard drinks of alcohol Types: 40 Shots of liquor per week Comment: pint of whiskey daily, states today he drank multiple [place] rums Drug use: Yes Types: Cocaine, Methamphetamine Comment: last used months ago Sexual activity: Not on file Other Topics Concern Not on file Social History Narrative Not on file Social Determinants of Health Financial Resource Strain: Not on file Food Insecurity: Not on file Transportation Needs: Not on file Physical Activity: Not on file Stress: Not on file Social Connections: Not on file Intimate Partner Violence: Not on file Housing Stability: Not on file SURGICAL HISTORY: History reviewed. No pertinent surgical history. CURRENT MEDICATIONS: No current facility-administered medications for this encounter. Current Outpatient Medications: fluticasone propionate (FLONASE) 50 mcg/actuation nasal spray, 2 Sprays by Each Nostril route daily, Disp: 1 Each, Rfl: 0 folic acid (FOLATE) 1 mg tablet, Take 1 Tab by mouth daily, Disp: 30 Tab, Rfl: 0 THEREMS-M 9 mg iron-400 mcg tablet, Take 1 Tab by mouth daily for 30 days, Disp: 30 Tab, Rfl: 0 thiamine (VITAMIN B1) 100 mg tablet, Take 1 Tab by mouth daily for 30 days, Disp: 30 Tab, Rfl: 0 buPROPion (WELLBUTRIN XL) 150 mg XL-tablet 24 Hr, Take 1 Tab by mouth daily BUPROPION XL 150 MG TABLET, EXTENDED RELEASE 24 HR Dispensed: 12/28/2022 12:00 AM Unit strength: 150 mg Days supply: 30 Quantity: 30 Tab Pharmacy: None Authorizing provider: None Received from: [email or web address] (Claim History, Acute Care) Brand or Generic: Generic, Disp: , Rfl: hydrOXYzine HCL (ATARAX) 50 mg tablet, Take 1 Tab by mouth every 6 hours as needed HYDROXYZINE PAMOATE 50 MG CAPSULE Dispensed: 12/21/2022 12:00 AM Unit strength: 50 mg Unit form: Capsule Days supply: 15 Quantity: 90 Cap Pharmacy: None Authorizing provider: None Received from: [email or web address] (Claim History, Acute Care) Brand or Generic: Generic, Disp: , Rfl: nicotine (HABITROL) 14 mg/24 hr transdermal patch, 1 Patch by Transdermal route daily for 30 days, Disp: 30 Patch, Rfl: 0 Melatonin (MELATONIN) 5 mg Tablet tablet, Take 1 Tab by mouth at bedtime MELATONIN 5 MG TABLET Dispensed: 12/31/2022 12:00 AM Unit strength: 5 mg Unit form: Tablet Days supply: 15 Quantity: 30 Tab Pharmacy: None Authorizing provider: None Received from: [email or web address] (Claim History, Acute Care) Brandor Generic: Generic, Disp: , Rfl: Config Med, NOT VALID FOR CONTROLLED SUBSTANCES,, You will need to get a release to return to work from your family provider, Disp: 1 Each, Rfl: 0 Config Med, NOT VALID FOR CONTROLLED SUBSTANCES,, To whom it may concern, This patient was hospitalized 01/05-01/07/2023. Will need to have a separate release from his family provider to return to work., Disp: 1 Each, Rfl: 0 Config Med, NOT VALID FOR CONTROLLED SUBSTANCES,, It is recommended that when you leave the hospital that you go to walk-in Access, [facility] or [facility] for intake and placement, Disp: , Rfl: Config Med, NOT VALID FOR CONTROLLED SUBSTANCES,, You have elevated ALT liver enzyme and elevated eosinophil percentage on your blood work. This needs to be followed as outpatient. Advise that you refrain from alcohol and complete blood work ordered and follow-up with your primary care provider to go over results. The cause for these elevations could be from your alcohol use., Disp: , Rfl: omeprazole (PRILOSEC) [address]-capsule, Take 1 Cap by mouth daily, Disp: , Rfl: traZODone (DESYREL) 50 mg tablet, Take 1 Tab by mouth at bedtime, Disp: , Rfl: ALLERGIES: Patient has no known allergies. PHYSICAL EXAM: VITAL SIGNS: Vitals: 01/16/23 1127 BP: (!) 142/98 Pulse: 79 Resp: 16 Temp: 97.7 F (36.5 C) SpO2: 99% Physical Exam Vitals and nursing note reviewed. Constitutional: Appearance: Normal appearance. He is normal weight. HENT: Head: Normocephalic and atraumatic. Nose: Nose normal. Mouth/Throat: Mouth: Mucous membranes are moist. Pharynx: Oropharynx is clear. Eyes: Extraocular Movements: Extraocular movements intact. Conjunctiva/sclera: Conjunctivae normal. Pupils: Pupils are equal, round, and reactive to light. Cardiovascular: Rate and Rhythm: Normal rate and regular rhythm. Pulses: Normal pulses. Heart sounds: Normal heart sounds. Pulmonary: Effort: Pulmonary effort is normal. Breath sounds: Normal breath sounds. Abdominal: Palpations: Abdomen is soft. Musculoskeletal: General: Normal range of motion. Cervical back: Normal range of motion and neck supple. Skin: General: Skin is warm and dry. Capillary Refill: Capillary refill takes less than 2 seconds. Neurological: General: No focal deficit present. Mental Status: He is alert and oriented to person, place, and time. Mental status is at baseline. ED COURSE / MEDICAL DECISION MAKING: Impression and Ddx: Mckinley Roman is a 37 year old male who presents to the emergency department with clearance. Initial vital signs blood pressure 142/98, temperature 97.7, pulse 79, respirations 16, SpO2 99% on roomair. Evaluation and Disposition: Patient has no acute complaints. He is ANO x 4, GCS 15. He is able to ambulate without difficulty. Based on assessment, physical exam and history patient is medically clear for discharge to fpc. He was discharged in stable condition. Medications to be Initiated at Time of Discharge: New Prescriptions No medications on file Independent Historian: None External Records Review: None Independent Interpretation of Studies: None Discussion of Management: None Escalation/De-Escalation of Care: Appropriate for outpatient management Billable Critical Care Time: None or <30 minutes Additional Considerations Affecting Care: None Condition at Disposition: Stable Diagnosis ICD-10-CM ICD-9-CM 1. Encounter for medical screening examination Z13.9 V82.9 Patient seen and discussed with Dr. Bernabe Electronically signed by: Ezequiel Garcia MD Emergency Medicine 01/16/2023 11:39 AM [facility] [id number] Emergency department Note* Cassia Zamorano RN - 01/08/2023 7:50 PM EST [facility] here. Pt left on cot with [facility]. Vital signs stable. Receiving facility tried to be reached, no answer. Gave [facility] our phone number in case the receiving nurse has any questions. [facility] [id number] Emergency department Note* Cassia Zamorano RN - 01/08/2023 7:50 PM EST [facility] here. Pt left on cot with [facility]. Vital signs stable. Receiving facility tried to be reached, no answer. Gave [facility] our phone number in case the receiving nurse has any questions. * Jennie Rebolledo RN - 01/08/2023 7:17 PM EST [facility] arrives at this time * Jennie Rebolledo RN - 01/08/2023 6:48 PM EST [facility] called for ETA, ETA 1845 [facility] states they are here at the facility * Jennie Rebolledo RN - 01/08/2023 5:20 PM EST [facility] called for transportation to [facility] ([address] [address]). [facility] will call back for an ETA Facility number for report [phone] * Jennie Rebolledo RN - 01/08/2023 3:13 PM EST Patient provided with PO refreshments, tolerated well * Jennie Rebolledo RN - 01/08/2023 3:05 PM EST Pt returns to ED room, no incident with traveling, violent restraints to remain off at this time * Jennie Rebolledo RN - 01/08/2023 2:45 PM EST Pt to CT with x2 RN and x2 police officers * Lamin Bach RN - 01/08/2023 12:34 PM EST Report given to Jennie TAY. To assume care. * Jose Roberto Lincoln RN - 01/08/2023 12:22 PM EST Pt brought ti 74 with DPS and primary RN, pt had swung at officer and throwing urinals in room. Pt in 74 placed in restraints with DPS for staff safety. * Teresa Kwok RN - 01/08/2023 12:21 PM EST Bed: O74 Expected date: Expected time: Means of arrival: Comments: 60 * Jose Roberto Lincoln RN - 01/08/2023 12:03 PM EST Pt screaming and yelling at staff throwing pulse ox at staff * Karely Graham PA-C - 01/08/2023 11:54 AM EST TRIAGE CHIEF COMPLAINT: Chief Complaint Patient presents with Intoxication Fall HPI: Mckinley Roman is a 37 year old male who presents via EMS after he was seen falling at a gas station. 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 Patient denies any chest pain, shortness of breath, other injuries. Independent Historian: None External Records Review: On yesterday January 07, patient was seen for acute alcoholic intoxication after being brought in for multiple falls, ethanol was elevated at 190 and patient was ultimately discharged home. Since September, this is the patient's 11th visit to the emergency department for alcohol abuse. REVIEW OF SYSTEMS: ROS ROS otherwise negative PAST MEDICAL HISTORY: Past Medical History: Diagnosis Date Alcohol abuse FAMILY HISTORY: No family history on file. SOCIAL HISTORY: Social History Tobacco Use Smoking Status Never Smokeless Tobacco Never Social History Substance and Sexual Activity Alcohol Use Yes Alcohol/week: 40.0 standard drinks of alcohol Types: 40 Shots of liquor per week Comment: pint of whiskey daily, states today he drank multiple [place] rums Social History Substance and Sexual Activity Drug Use Yes Types: Cocaine, Methamphetamine Comment: last used months ago SURGICAL HISTORY: No past surgical history on file. CURRENT MEDICATIONS: No current facility-administered medications for this encounter. Current Outpatient Medications: fluticasone propionate (FLONASE) 50 mcg/actuation nasal spray, 2 Sprays by Each Nostril route daily, Disp: 1 Each, Rfl: 0 folic acid (FOLATE) 1 mg tablet, Take 1 Tab by mouth daily, Disp: 30 Tab, Rfl: 0 loratadine (CLARITIN) 10 mg tablet, Take 1 Tab by mouth daily for 7 days Obtain refills from primary care provider, Disp: 7 Tab, Rfl: 0 THEREMS-M 9 mg iron-400 mcg tablet, Take 1 Tab by mouth daily for 30 days, Disp: 30 Tab, Rfl: 0 thiamine (VITAMIN B1) 100 mg tablet, Take 1 Tab by mouth daily for 30 days, Disp: 30 Tab, Rfl: 0 buPROPion (WELLBUTRIN XL) 150 mg XL-tablet 24 Hr, Take 1 Tab by mouth daily BUPROPION XL 150 MG TABLET, EXTENDED RELEASE 24 HR Dispensed: 12/28/2022 12:00 AM Unit strength: 150 mg Days supply: 30 Quantity: 30 Tab Pharmacy: None Authorizing provider: None Received from: [email or web address] (Claim History, Acute Care) Brand or Generic: Generic, Disp: , Rfl: hydrOXYzine HCL (ATARAX) 50 mg tablet, Take 1 Tab by mouth every 6 hours as needed HYDROXYZINE PAMOATE 50 MG CAPSULE Dispensed: 12/21/2022 12:00 AM Unit strength: 50 mg Unit form: Capsule Days supply: 15 Quantity: 90 Cap Pharmacy: None Authorizing provider: None Received from: [email or web address] (Claim History, Acute Care) Brand or Generic: Generic, Disp: , Rfl: busPIRone (BUSPAR) 10 mg tablet, Take 1 Tab by mouth two times a day for 7 days Refills per primarycare provider, Disp: 14 Tab, Rfl: 0 chlordiazePOXIDE (LIBRIUM) 5 mg capsule, Take 5 Cap by mouth daily for 1 day, THEN 4 Cap daily for 1 day, THEN 3 Cap daily for 1 day, THEN 2 Cap daily for 1 day, THEN 1 Cap daily for 1 day. No driving on this medication., Disp: 15 Cap, Rfl: 0 doxycycline MONOhydrate (MONODOX) 100 mg capsule, Take 1 Cap by mouth every 12 hours for 4 days, Disp: 8 Cap, Rfl: 0 nicotine (HABITROL) 14 mg/24 hr transdermal patch, 1 Patch by Transdermal route daily for 30 days, Disp: 30 Patch, Rfl: 0 Melatonin (MELATONIN) 5 mg Tablet tablet, Take 1 Tab by mouth at bedtime MELATONIN 5 MG TABLET Dispensed: 12/31/2022 12:00 AM Unit strength: 5 mg Unit form: Tablet Days supply: 15 Quantity: 30 Tab Pharmacy: None Authorizing provider: None Received from: [facility] (Claim History, Acute Care) Brandor Generic: Generic, Disp: , Rfl: Config Med, NOT VALID FOR CONTROLLED SUBSTANCES,, You will need to get a release to return to work from your family provider, Disp: 1 Each, Rfl: 0 Config Med, NOT VALID FOR CONTROLLED SUBSTANCES,, To whom it may concern, This patient was hospitalized 01/05-01/07/2023. Will need to have a separate release from his family provider to return to work., Disp: 1 Each, Rfl: 0 Config Med, NOT VALID FOR CONTROLLED SUBSTANCES,, It is recommended that when you leave the hospital that you go to walk-in Access, [facility] or [facility] for intake and placement, Disp: , Rfl: Config Med, NOT VALID FOR CONTROLLED SUBSTANCES,, You have elevated ALT liver enzyme and elevated eosinophil percentage on your blood work. This needs to be followed as outpatient. Advise that you refrain from alcohol and complete blood work ordered and follow-up with your primary care provider to go over results. The cause for these elevations could be from your alcohol use., Disp: , Rfl: omeprazole (PRILOSEC) [address]-capsule, Take 1 Cap by mouth daily, Disp: , Rfl: traZODone (DESYREL) 50 mg tablet, Take 1 Tab by mouth at bedtime, Disp: , Rfl: ALLERGIES: Patient has no known allergies. PHYSICAL EXAM: VITAL SIGNS: Vitals: 01/08/23 1156 01/08/23 1600 BP: 161/87 149/74 Pulse: 87 114 Resp: 16 16 Temp: 97.3 F (36.3 C) 98 F (36.7 C) SpO2: 100% 100% Weight: 104.3 kg (230 lb) Height: 1.803 m (5' 11 ) CONSTITUTIONAL: Awake and alert, oriented, appears disheveled HENT: Atraumatic, normocephalic, airway patent EYES: Conjunctiva clear, pupils equal, round, NECK: no masses, trachea midline PULMONARY/CHEST: Clear to auscultation bilaterally, Non-tender. ABDOMINAL: Non-distended, soft, non-tender NEUROLOGIC: Non-focal EXTREMITIES: No edema SKIN: Warm, Dry Pertinent Labs & Imaging studies reviewed. (See chart for details) Labs Reviewed ETHANOL - Abnormal; Notable for the following components: Result Value Ethanol, Serum/Plasma 224 (*) All other components within normal limits Narrative: For Medical Purposes only. DRUG SCREEN, URINE - Abnormal; Notable for the following components: Benzodiazepine, Urine Presumptive Positive (*) All other components within normal limits Narrative: The submitted urine specimen was screened for the presence of the following compounds at the listed detection limits: Amphetamine, Methamphetamine 1000 ng/ml Barbituates 200 ng/ml Benzodiazepine 300 ng/ml Cocaine Metabolite 300 ng/ml Marijuana (THC) 50 ng/ml Opiates 300 ng/ml CT HEAD WITHOUT CONTRAST Final Result IMPRESSION: No acute intracranial pathology. Dictated by: Umang England M.D.Workstation ID:[id number] CT SPINE CERVICAL WITHOUT CONTRAST Final Result IMPRESSION: No acute bony abnormality cervical spine. Some degenerative changes noted at C5-6 as described Dictated by: Umang MarteQA on Requeststation ID:[id number] ED COURSE / MEDICAL DECISION MAKING: Mckinley Roman is a 37 year old male who presents via EMS after he was seen falling at a gas station.. Upon arrival vitals reviewed and are within normal limits. History and physical exam as above. Patient is able to ambulate and move all extremities without difficulty, there is no visible ecchymosis and patient has no complaints that I think would warrant further imaging, he is not on any blood thinners that I think would warrant CT head. Ethanol is elevated at 224. Throughout the stay, patient did become belligerent and swollen at the nursing staff, police did arrive and took the patient over into the psych area so he could be watched, Haldol, Ativan, and Benadryl given for aggression. CT head and cervical spine are all reassuring. Patient did request resources and we talked to the substance use navigator who was able to ultimately find placement. Will go ahead and discharge the patient and they are arranging transfer. Differential Diagnoses include but are not limited to Beriberi, hypoglycemia, lactic acidosis, compression fracture, alcohol withdrawal, Warnicke Korsakoff syndrome, beer potomania syndrome, splenic laceration, hepatic laceration, pulmonary contusion, rib fractures, flail chest, pneumothorax, hemothorax, TBI, cervical spine injury,subdural hematoma, subarachnoid hemorrhage, epidural hematoma, andtetanus prophylaxis The patient was staffed with Lexi Lira MD who interviewed and examined the patient and is agreement with the plan of care and disposition of this patient. Electronically signed by: Karely Graham PA-C, 01/08/2023 5:16 PM FINAL IMPRESSION: 1. Alcoholic intoxication with complication (HC CODE) 2. Aggressive behavior * Jose Roberto Lincoln RN - 01/08/2023 11:53 AM EST Pt arrives via [facility] on [address] after pt was witnessed falling several times.pt reports drinking 9 bottles of whiskey today. Provider at bedside. Pt not answering questions and needs frequent redirection to stay in bed. documented in this encounterGalion Community [id number] Emergency department Note* Jennie Rebolledo RN - 01/08/2023 7:17 PM EST AMR arrives at this time [facility] [id number] Emergency department Note* Jennie Rebolledo RN - 01/08/2023 6:48 PM EST [facility]R called for ETA, ETA 7936 AMR states they are here at the facility [facility] [id number] Emergency department Note* Jennie Rebolledo RN - 01/08/2023 5:20 PM EST [facility]R called for transportation to [facility] ([address] [address]). [facility] states will call back for an ETA Facility number for report [phone]01-2023 Emergency department Note* Jennie Rebolledo RN - 01/08/2023 3:13 PM EST Patient provided with PO refreshments, tolerated well [facility] [id number] Emergency department Note* Jennie Rebolledo RN - 01/08/2023 3:05 PM EST Pt returns to ED room, no incident with traveling, violent restraints to remain off at this time [facility] HospitalDebswj22-20-8370 Emergency department Note* Jennie Rebolledo RN - 01/08/2023 2:45 PM EST Pt to CT with x2 RN and x2 police officers [facility] [id number] Emergency department Note* Lamin Bach RN - 01/08/2023 12:34 PM EST Report given to Jennie TAY. To assume care. [facility] [id number] Emergency department Note* Jose Roberto Lincoln RN - 01/08/2023 12:22 PM EST Pt brought ti 74 with DPS and primary RN, pt had swung at officer and throwing urinals in room. Pt in 74 placed in restraints with DPS for staff safety. [facility] [id number] Emergency department Note* Teresa Kwok RN - 01/08/2023 12:21 PM EST Bed: O74 Expected date: Expected time: Means of arrival: Comments: 60 [facility]12-01-2023 Emergency department Note* Jose Roberto Lincoln RN - 01/08/2023 12:03 PM EST Pt screaming and yelling at staff throwing pulse ox at staff [facility] [id number] Physician Emergency department Note* Karely Graham PA-C - 01/08/2023 11:54 AM EST TRIAGE CHIEF COMPLAINT: Chief Complaint Patient presents with Intoxication Fall HPI: Mckinley Roman is a 37 year old male who presents via EMS after he was seen falling at a gas station. 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 Patient denies any chest pain, shortness of breath, other injuries. Independent Historian: None External Records Review: On yesterday January 07, patient was seen for acute alcoholic intoxication after being brought in for multiple falls, ethanol was elevated at 190 and patient was ultimately discharged home. Since September, this is the patient's 11th visit to the emergency department for alcohol abuse. REVIEW OF SYSTEMS: ROS ROS otherwise negative PAST MEDICAL HISTORY: Past Medical History: Diagnosis Date Alcohol abuse FAMILY HISTORY: No family history on file. SOCIAL HISTORY: Social History Tobacco Use Smoking Status Never Smokeless Tobacco Never Social History Substance and Sexual Activity Alcohol Use Yes Alcohol/week: 40.0 standard drinks of alcohol Types: 40 Shots of liquor per week Comment: pint of whiskey daily, states today he drank multiple [place] rums Social History Substance and Sexual Activity Drug Use Yes Types: Cocaine, Methamphetamine Comment: last used months ago SURGICAL HISTORY: No past surgical history on file. CURRENT MEDICATIONS: No current facility-administered medications for this encounter. Current Outpatient Medications: fluticasone propionate (FLONASE) 50 mcg/actuation nasal spray, 2 Sprays by Each Nostril route daily, Disp: 1 Each, Rfl: 0 folic acid (FOLATE) 1 mg tablet, Take 1 Tab by mouth daily, Disp: 30 Tab, Rfl: 0 loratadine (CLARITIN) 10 mg tablet, Take 1 Tab by mouth daily for 7 days Obtain refills from primary care provider, Disp: 7 Tab, Rfl: 0 THEREMS-M 9 mg iron-400 mcg tablet, Take 1 Tab by mouth daily for 30 days, Disp: 30 Tab, Rfl: 0 thiamine (VITAMIN B1) 100 mg tablet, Take 1 Tab by mouth daily for 30 days, Disp: 30 Tab, Rfl: 0 buPROPion (WELLBUTRIN XL) 150 mg XL-tablet 24 Hr, Take 1 Tab by mouth daily BUPROPION XL 150 MG TABLET, EXTENDED RELEASE 24 HR Dispensed: 12/28/2022 12:00 AM Unit strength: 150 mg Days supply: 30 Quantity: 30 Tab Pharmacy: None Authorizing provider: None Received from: [email or web address] (Claim History, Acute Care) Brand or Generic: Generic, Disp: , Rfl: hydrOXYzine HCL (ATARAX) 50 mg tablet, Take 1 Tab by mouth every 6 hours as needed HYDROXYZINE PAMOATE 50 MG CAPSULE Dispensed: 12/21/2022 12:00 AM Unit strength: 50 mg Unit form: Capsule Days supply: 15 Quantity: 90 Cap Pharmacy: None Authorizing provider: None Received from: [email or web address] (Claim History, Acute Care) Brand or Generic: Generic, Disp: , Rfl: busPIRone (BUSPAR) 10 mg tablet, Take 1 Tab by mouth two times a day for 7 days Refills per primarycare provider, Disp: 14 Tab, Rfl: 0 chlordiazePOXIDE (LIBRIUM) 5 mg capsule, Take 5 Cap by mouth daily for 1 day, THEN 4 Cap daily for 1 day, THEN 3 Cap daily for 1 day, THEN 2 Cap daily for 1 day, THEN 1 Cap daily for 1 day. No driving on this medication., Disp: 15 Cap, Rfl: 0 doxycycline MONOhydrate (MONODOX) 100 mg capsule, Take 1 Cap by mouth every 12 hours for 4 days, Disp: 8 Cap, Rfl: 0 nicotine (HABITROL) 14 mg/24 hr transdermal patch, 1 Patch by Transdermal route daily for 30 days, Disp: 30 Patch, Rfl: 0 Melatonin (MELATONIN) 5 mg Tablet tablet, Take 1 Tab by mouth at bedtime MELATONIN 5 MG TABLET Dispensed: 12/31/2022 12:00 AM Unit strength: 5 mg Unit form: Tablet Days supply: 15 Quantity: 30 Tab Pharmacy: None Authorizing provider: None Received from: [email or web address] (Claim History, Acute Care) Brandor Generic: Generic, Disp: , Rfl: Config Med, NOT VALID FOR CONTROLLED SUBSTANCES,, You will need to get a release to return to work from your family provider, Disp: 1 Each, Rfl: 0 Config Med, NOT VALID FOR CONTROLLED SUBSTANCES,, To whom it may concern, This patient was hospitalized 01/05-01/07/2023. Will need to have a separate release from his family provider to return to work., Disp: 1 Each, Rfl: 0 Config Med, NOT VALID FOR CONTROLLED SUBSTANCES,, It is recommended that when you leave the hospital that you go to walk-in [facility], [facility] or [facility] for intake and placement, Disp: , Rfl: Config Med, NOT VALID FOR CONTROLLED SUBSTANCES,, You have elevated ALT liver enzyme and elevated eosinophil percentage on your blood work. This needs to be followed as outpatient. Advise that you refrain from alcohol and complete blood work ordered and follow-up with your primary care provider to go over results. The cause for these elevations could be from your alcohol use., Disp: , Rfl: omeprazole (PRILOSEC) [address]-capsule, Take 1 Cap by mouth daily, Disp: , Rfl: traZODone (DESYREL) 50 mg tablet, Take 1 Tab by mouth at bedtime, Disp: , Rfl: ALLERGIES: Patient has no known allergies. PHYSICAL EXAM: VITAL SIGNS: Vitals: 01/08/23 1156 01/08/23 1600 BP: 161/87 149/74 Pulse: 87 114 Resp: 16 16 Temp: 97.3 F (36.3 C) 98 F (36.7 C) SpO2: 100% 100% Weight: 104.3 kg (230 lb) Height: 1.803 m (5' 11 ) CONSTITUTIONAL: Awake and alert, oriented, appears disheveled HENT: Atraumatic, normocephalic, airway patent EYES: Conjunctiva clear, pupils equal, round, NECK: no masses, trachea midline PULMONARY/CHEST: Clear to auscultation bilaterally, Non-tender. ABDOMINAL: Non-distended, soft, non-tender NEUROLOGIC: Non-focal EXTREMITIES: No edema SKIN: Warm, Dry Pertinent Labs & Imaging studies reviewed. (See chart for details) Labs Reviewed ETHANOL - Abnormal; Notable for the following components: Result Value Ethanol, Serum/Plasma 224 (*) All other components within normal limits Narrative: For Medical Purposes only. DRUG SCREEN, URINE - Abnormal; Notable for the following components: Benzodiazepine, Urine Presumptive Positive (*) All other components within normal limits Narrative: The submitted urine specimen was screened for the presence of the following compounds at the listed detection limits: Amphetamine, Methamphetamine 1000 ng/ml Barbituates 200 ng/ml Benzodiazepine 300 ng/ml Cocaine Metabolite 300 ng/ml Marijuana (THC) 50 ng/ml Opiates 300 ng/ml CT HEAD WITHOUT CONTRAST Final Result IMPRESSION: No acute intracranial pathology. Dictated by: Umang England M.D.Workstation ID:[id number] CT SPINE CERVICAL WITHOUT CONTRAST Final Result IMPRESSION: No acute bony abnormality cervical spine. Some degenerative changes noted at C5-6 as described Dictated by: Umang Terrystation ID:[id number] ED COURSE / MEDICAL DECISION MAKING: Mckinley Roman is a 37 year old male who presents via EMS after he was seen falling at a gas station.. Upon arrival vitals reviewed and are within normal limits. History and physical exam as above. Patient is able to ambulate and move all extremities without difficulty, there is no visible ecchymosis and patient has no complaints that I think would warrant further imaging, he is not on any blood thinners that I think would warrant CT head. Ethanol is elevated at 224. Throughout the stay, patient did become belligerent and swollen at the nursing staff, police did arrive and took the patient over into the psych area so he could be watched, Haldol, Ativan, and Benadryl given for aggression. CT head and cervical spine are all reassuring. Patient did request resources and we talked to the substance use navigator who was able to ultimately find placement. Will go ahead and discharge the patient and they are arranging transfer. Differential Diagnoses include but are not limited to Beriberi, hypoglycemia, lactic acidosis, compression fracture, alcohol withdrawal, Warnicke Korsakoff syndrome, beer potomania syndrome, splenic laceration, hepatic laceration, pulmonary contusion, rib fractures, flail chest, pneumothorax, hemothorax, TBI, cervical spine injury,subdural hematoma, subarachnoid hemorrhage, epidural hematoma, andtetanus prophylaxis The patient was staffed with Lexi Lira MD who interviewed and examined the patient and is agreement with the plan of care and disposition of this patient. Electronically signed by: Karely Graham PA-C, 01/08/2023 5:16 PM FINAL IMPRESSION: 1. Alcoholic intoxication with complication (HC CODE) 2. Aggressive behavior [id number] Emergency department Note* Jose Roberto Lincoln RN - 01/08/2023 11:53 AM EST Pt arrives via [employer] [facility] [address] after pt was witnessed falling several times.pt reports drinking 9 bottles of whiskey today. Provider at bedside. Pt not answering questions and needs frequent redirection to stay in bed. [id number] Emergency department Note* Carmen Russell RN - 01/08/2023 7:38 AM EST Patient discharged to home, alert and oriented, skin warm, dry and pink. Denies needs and or questions. Will follow-up as directed, patient encouraged to return for worsening or new symptoms or otherconcerns. [id number] Emergency department Note* Carmen Russell RN - 01/08/2023 7:38 AM EST Patient discharged to home, alert and oriented, skin warm, dry and pink. Denies needs and or questions. Will follow-up as directed, patient encouraged to return for worsening or new symptoms or otherconcerns. * Carmen Russell RN - 01/08/2023 7:31 AM EST This RN at bedside. Pt calm and cooperative at this time. Vitals obtained. [employer] police gave patient belongings. Pt updated on plan for discharge. Will monitor. * Martin Pritchard MD - 01/08/2023 6:14 AM EST Pt signed out to me from Dr. Eller. Please see his note. Reassessed multiple times and improving mental status with no new sx. Denies SI/HI/Hallucinations. Stable, walking with normal gait, with capacity. Requesting d/c, plans to walk into access for detox at 8. No clinical signs of detox at this time. Discussed with attending Dr. Abdoul Welch. Electronically signed by: Martin Pritchard MD, 01/08/2023 6:19 AM * Zoe Sylvester RN - 01/08/2023 5:59 AM EST Pt up and ambulated with even steady gait. Dr Pritchard updated. * Marlena Stevenson RN - 01/08/2023 5:32 AM EST Report received from JASVIR Camilo and care assumed. * Leslee Delgado RN - 01/08/2023 3:23 AM EST Attempted to ambulate patient. Patient had unsteady gait and needed to hold onto wall to take a couple steps. Dr Pritchard informed of same. * Edith So - 01/08/2023 1:52 AM EST Pt ambulatory to restroom and asking for something to eat and drink * Edith So - 01/08/2023 1:35 AM EST MD at bedside Y * Shelley Beltrán MD - 01/07/2023 7:54 PM EST ATTENDING NOTE I have reviewed the chief complaint and history of present illness and review of systems as well asthe past medical/social/family history sections for this patient. I have examined this patient, andparticipated in the care of this patient. I have reviewed the pertinent clinical information including physical exam, labs, radiographic studies and the plan. HPI: Patient presented with complaints of being intoxicated. The patient is aggressive and acting per family and shouting and swearing at the staff members. It is unclear why he is here but apparently EMS found him on the ground on [facility]. He has been here before for similar issues. Intoxicated, assertive and aggressive no evidence of trauma Review of Systems: Otherwise per documentation Vital Signs: Per chart General: Patient appears non-toxic HENT: Atraumatic, normocephalic, oral mucosa moist Lungs: Clear to auscultation bilaterally Heart: Regular rate and rhythm Abdomen: Non-distended, soft, non-tender Extremities: No edema Neuro: Nonfocal Medical Decision Making and Plan: Patient arrives with complaints of alcohol intoxication and aggressive behavior patterns. At 1 point he was still vulgar and swearing at the staff and acting aggressively shouting. We did order medications to help sedate him as we considered that he could very well be a risk to harm himself or others. We could not even get him to cooperate to check an alcohol level on him or to even stay in bed appropriately. We did not want him to hurt himself. Disposition will be determined pending his treatment and test results. Diagnosis 1--alcohol intoxication 2--violent behavior \ I have personally seen and examined this patient. I have fully participated in the care of this patient and I have reviewed and agree with all pertinent clinical information including history, physical exam, and plan. I have also reviewed and agree with the medications, allergies and past medical history section for this patient. Electronically signed by: Shelley Beltrán MD, 01/07/2023 8:01 PM * Leslee Delgado RN - 01/07/2023 7:45 PM EST Patient assisted to bathroom by this RN and Zoey TAY. Patient unsteady and this RN was next to patient for patient's safety. Patient yelled I'm going to beat the shit out of you . Patient brant RN was there for patient safety. Patient attempted to punch this RN. [employer] police assisted patient back to room. Dr Eller at bedside. * Jose Eller MD - 01/07/2023 7:41 PM EST [facility] RESIDENT NOTE TRIAGE CHIEF COMPLAINT: Chief Complaint Patient presents with Intoxication HPI: Mckinley Roman is a 37 year old male with a past medical history of alcohol abuse and polysubstance use who presents to the ED via EMS severely intoxicated. The patient is belligerent. It is reported that the patient was found on the ground outside. He endorsed drinking liquor tonight. He is being extremely verbally aggressive towards staff and making threatening gestures and statements. Hedoes not comply with history taking. REVIEW OF SYSTEMS: ROS unobtainable Patient Active Problem List Diagnosis Alcohol abuse with withdrawal (HC CODE) Suicidal ideations Cocaine use Methamphetamine use (HC CODE) Nicotine dependence Vapes nicotine containing substance PAST MEDICAL HISTORY: Past Medical History: Diagnosis Date Alcohol abuse PAST SURGICAL HISTORY: History reviewed. No pertinent surgical history. FAMILY HISTORY: History reviewed. No pertinent family history. SOCIAL HISTORY: Social History Socioeconomic History Marital status: Single Tobacco Use Smoking status: Never Smokeless tobacco: Never Vaping Use Vaping Use: Every day Substance and Sexual Activity Alcohol use: Yes Alcohol/week: 40.0 standard drinks of alcohol Types: 40 Shots of liquor per week Comment: pint of whiskey daily, states today he drank multiple [place] rums Drug use: Yes Types: Cocaine, Methamphetamine Comment: last used months ago I have reviewed and verified the above past medical, family, and social history. CURRENT MEDICATIONS: No current facility-administered medications for this encounter. Current Outpatient Medications: fluticasone propionate (FLONASE) 50 mcg/actuation nasal spray, 2 Sprays by Each Nostril route daily, Disp: 1 Each, Rfl: 0 folic acid (FOLATE) 1 mg tablet, Take 1 Tab by mouth daily, Disp: 30 Tab, Rfl: 0 loratadine (CLARITIN) 10 mg tablet, Take 1 Tab by mouth daily for 7 days Obtain refills from primary care provider, Disp: 7 Tab, Rfl: 0 THEREMS-M 9 mg iron-400 mcg tablet, Take 1 Tab by mouth daily for 30 days, Disp: 30 Tab, Rfl: 0 thiamine (VITAMIN B1) 100 mg tablet, Take 1 Tab by mouth daily for 30 days, Disp: 30 Tab, Rfl: 0 [START ON 01/08/2023] buPROPion (WELLBUTRIN XL) 150 mg XL-tablet 24 Hr, Take 1 Tab by mouth daily BUPROPION XL 150 MG TABLET, EXTENDED RELEASE 24 HR Dispensed: 12/28/2022 12:00 AM Unit strength: 150 mg Days supply: 30 Quantity: 30 Tab Pharmacy: None Authorizing provider: None Received from: [email or web address] (Claim History, Acute Care) Brand or Generic: Generic, Disp: , Rfl: hydrOXYzine HCL (ATARAX) 50 mg tablet, Take 1 Tab by mouth every 6 hours as needed HYDROXYZINE PAMOATE 50 MG CAPSULE Dispensed: 12/21/2022 12:00 AM Unit strength: 50 mg Unit form: Capsule Days supply: 15 Quantity: 90 Cap Pharmacy: None Authorizing provider: None Received from: [email or web address] (Claim History, Acute Care) Brand or Generic: Generic, Disp: , Rfl: busPIRone (BUSPAR) 10 mg tablet, Take 1 Tab by mouth two times a day for 7 days Refills per primarycare provider, Disp: 14 Tab, Rfl: 0 [START ON 01/08/2023] chlordiazePOXIDE (LIBRIUM) 5 mg capsule, Take 5 Cap by mouth daily for 1 day, THEN 4 Cap daily for 1 day, THEN 3 Cap daily for 1 day, THEN 2 Cap daily for 1 day, THEN 1 Cap dailyfor 1 day[address] No [address] on this medication., Disp: 15 Cap, Rfl: 0 doxycycline MONOhydrate (MONODOX) 100 mg capsule, Take 1 Cap by mouth every 12 hours for 4 days, Disp: 8 Cap, Rfl: 0 [START ON 01/08/2023] nicotine (HABITROL) 14 mg/24 hr transdermal patch, 1 Patch by Transdermal route daily for 30 days, Disp: 30 Patch, Rfl: 0 Melatonin (MELATONIN) 5 mg Tablet tablet, Take 1 Tab by mouth at bedtime MELATONIN 5 MG TABLET Dispensed: 12/31/2022 12:00 AM Unit strength: 5 mg Unit form: Tablet Days supply: 15 Quantity: 30 Tab Pharmacy: None Authorizing provider: None Received from: [facility] (Claim History, Acute Care) Brandor Generic: Generic, Disp: , Rfl: Config Med, NOT VALID FOR CONTROLLED SUBSTANCES,, You will need to get a release to return to work from your family provider, Disp: 1 Each, Rfl: 0 Config Med, NOT VALID FOR CONTROLLED SUBSTANCES,, To whom it may concern, This patient was hospitalized 01/05-01/07/2023. Will need to have a separate release from his family provider to return to work., Disp: 1 Each, Rfl: 0 Config Med, NOT VALID FOR CONTROLLED SUBSTANCES,, It is recommended that when you leave the hospital that you go to walk-in Access, [facility] or [facility] for intake and placement, Disp: , Rfl: Config Med, NOT VALID FOR CONTROLLED SUBSTANCES,, You have elevated ALT liver enzyme and elevated eosinophil percentage on your blood work. This needs to be followed as outpatient. Advise that you refrain from alcohol and complete blood work ordered and follow-up with your primary care provider to go over results. The cause for these elevations could be from your alcohol use., Disp: , Rfl: omeprazole (PRILOSEC) [address]-capsule, Take 1 Cap by mouth daily, Disp: , Rfl: traZODone (DESYREL) 50 mg tablet, Take 1 Tab by mouth at bedtime, Disp: , Rfl: ALLERGIES: Patient has no known allergies. PHYSICAL EXAM: VITAL SIGNS: The initial triage assessment is as follows: ED Vitals Temp: 98.3 F (36.8 C) (01/07/231926) Temp Source: Oral (01/07/231926) Pulse: 86 (01/07/231926) Resp: 18 (01/07/231926) BP: (!) 136/94 (01/07/231926) MAP: Noninvasive: 107 mmHg (01/07/231926) SpO2: 100 % (01/07/231926) Oxygen Liters Per Minute: 0 LITERS PER MINUTE (01/07/231926) Oxygen Source: Rm Air (01/07/231926) Vitals during ED course were reviewed and are as charted. General: Belligerent and significantly intoxicated appearing middle-aged male. He is covered in mudand urine. Head: NC/AT. Eyes: Pupils equally and bilaterally reactive to light. EOMI. Normal conjunctiva. ENMT: Normal external ears and nose. Oropharynx clear. Moist mucous membranes. Neck: Symmetric, trachea midline. No stridor. CV: Regular rate and rhythm, +S1/S2, no murmurs or gallops appreciated. Peripheral pulses intact. No cyanosis or edema. Pulm/Chest: Normal respiratory effort. Breath sounds present bilaterally, no wheezes, rales, or rhonchi. Abdomen: Soft, non-distended, non-tender, no rebound or guarding. MSK: Nontender extremities without deformity. Skin: Warm, dry. Normal color, texture, and turgor. No rashes or lesions. Neuro: Awake, belligerent, moving all extremities, ambulating with ataxia RADIOLOGY: I have personally reviewed the images. The radiologist interpretation reveals: No orders to display LAB RESULTS: Recent Results (from the past 24 hour(s)) RENAL FUNCTION PANEL Collection Time: 01/07/23 7:01 AM Result Value Ref Range Sodium 139 135 - 148 mEq/L Potassium 4.6 3.4 - 5.3 mEq/L Chloride 105 96 - 110 mEq/L Carbon Dioxide 25 19 - 32 mEq/L BUN 19 3 - 29 mg/dL Creatinine 1.2 0.5 - 1.4 mg/dL Glucose 107 (H) 70 - 99 mg/dL Calcium 8.9 8.5 - 10.5 mg/dL Albumin 3.6 3.5 - 5.2 g/dL Phosphorus 4.5 2.5 - 4.5 mg/dL Anion Gap 9 5 - 15 BUN/CREAT Ratio 16 7 - 25 Estimated GFR 79 >=60 mL/min/1.73m*2 COMPLETE BLOOD COUNT WITH DIFFERENTIAL Collection Time: 01/07/23 7:01 AM Result Value Ref Range WBC Count 5.7 3.5 - 10.9 K/uL RBC 4.88 4.14 - 5.80 M/uL Hemoglobin 14.1 13.0 - 17.7 g/dL Hematocrit 40.9 37.5 - 51.0 % MCV 83.8 80.0 - 100.0 fL MCH 28.9 26.0 - 34.0 pg MCHC 34.5 30.7 - 35.5 g/dL RDW 13.1 <=15.0 % Platelet Count 313 140 - 400 K/uL MPV 8.2 7.2 - 11.7 fL nRBC 0 <=0 /100 WBCs % Neutrophils 42.1 42.0 - 80.0 % % Lymphocytes 41.9 14.0 - 51.0 % % Monocytes 9.9 4.0 - 12.0 % % Eosinophils 5.1 (H) 0.0 - 5.0 % % Basophils 0.5 0.0 - 2.0 % % Immature Granulocyte 0.5 <1.0 % Absolute Neutrophils 2.4 1.8 - 7.5 K/uL Absolute Lymphocyte 2.4 0.9 - 4.1 K/uL Absolute Monocyte 0.6 0.2 - 1.0 K/uL Absolute Eosinophils 0.3 0.0 - 0.5 K/uL Absolute Basophil 0.0 0.0 - 0.3 K/uL Absolute Immature Granulocytes 0.0 0.0 - 0.1 K/uL Scan Result BASIC METABOLIC PANEL Collection Time: 01/07/23 9:11 PM Result Value Ref Range Sodium 140 135 - 148 mEq/L Potassium 3.7 3.4 - 5.3 mEq/L Chloride 104 96 - 110 mEq/L Carbon Dioxide 21 19 - 32 mEq/L BUN 17 3 - 29 mg/dL Creatinine 0.9 0.5 - 1.4 mg/dL Glucose 106 (H) 70 - 99 mg/dL Calcium 8.9 8.5 - 10.5 mg/dL Anion Gap 15 5 - 15 BUN/CREAT Ratio 19 7 - 25 Estimated GFR 112 >=60 mL/min/1.73m*2 ETHANOL Collection Time: 01/07/23 9:11 PM Result Value Ref Range Ethanol, Serum/Plasma 190 (H) <10 mg/dL COMPLETE BLOOD COUNT WITH DIFFERENTIAL Collection Time: 01/07/23 9:11 PM Result Value Ref Range WBC Count 8.3 3.5 - 10.9 K/uL RBC 5.47 4.14 - 5.80 M/uL Hemoglobin 15.8 13.0 - 17.7 g/dL Hematocrit 45.7 37.5 - 51.0 % MCV 83.5 80.0 - 100.0 fL MCH 28.9 26.0 - 34.0 pg MCHC 34.6 30.7 - 35.5 g/dL RDW 12.9 <=15.0 % Platelet Count 420 (H) 140 - 400 K/uL MPV 8.0 7.2 - 11.7 fL nRBC 0 <=0 /100 WBCs % Neutrophils 53.0 42.0 - 80.0 % % Lymphocytes 39.1 14.0 - 51.0 % % Monocytes 4.2 4.0 - 12.0 % % Eosinophils 2.8 0.0 - 5.0 % % Basophils 0.4 0.0 - 2.0 % % Immature Granulocyte 0.5 <1.0 % Absolute Neutrophils 4.4 1.8 - 7.5 K/uL Absolute Lymphocyte 3.2 0.9 - 4.1 K/uL Absolute Monocyte 0.4 0.2 - 1.0 K/uL Absolute Eosinophils 0.2 0.0 - 0.5 K/uL Absolute Basophil 0.0 0.0 - 0.3 K/uL Absolute Immature Granulocytes 0.0 0.0 - 0.1 K/uL Scan Result PROCEDURES: None. ED COURSE & MEDICAL DECISION MAKING: Pertinent labs, imaging studies, and nursing notes from current visit reviewed. Patient is a 37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 ideations. Recently coming off of a 5-day binge . 01/05 admitted to the hospital, started on CIWA protocol. Psychiatry consultation placed. Involuntary hold placed by psychiatry team. 01/06 assuming care, patient feels ready to be discharged home. Denies any current hallucinations or suicidal thoughts. When seen is also concerned about being off of the IV fluids. Also requested that the Habitrol patch to be lowered in terms of dose. CODE STATUS verified as full and order updatedhas not done prior. Physician/Nurse Bedside Rounding (Y/N): N Admission Date: 01/05/2023 Hospital day# 0 Active Medical Problems and Plan of Care per Gema Gotti ( ) A) Alcohol intoxication with withdrawal - ALT elevation 1) Data: A) 01/04 CMP normal except for ALT 98, CBC normal except for platelets 533, alcohol level 145; chest x-ray nonacute; troponin 7, less than 6, lipase 26 B) 01/05 white count 13, platelets 543, absolute neutrophils 9%, C) 01/05 UA not indicative of UTI however some degree of concentration and specific gravity greaterthan 1.03 D) 01/05 urine drug screen negative, ethanol level 147 E) 01/05 CMP normal except for ALT 80, glucose 101, phosphorus 4.7, magnesium 1.9, TSH 0.879 2) Regimen: A) lactated Ringer's at 100 cc/h B) Tylenol 650 mg every 6 hours as needed C) Maalox 30 mls every 4 hours as needed D) Librium 25 mg twice daily 01/06-01/07, Librium 25 mg daily beginning 01/07 E) Valium 10 mg every hour as needed for CIWA score greater than 12 F) Folate1 mg daily G) multivitamin daily H) thiamine 100 mg every 12 hours x 14 doses 3) Plan: A) Medically do feel patient could be transferred to inpatient mental health if needed - updated RNto recheck CIWA scoring and noted to be 8 from 13, so no barriers for discharge to inpatient mentalhealth from a medical perspective B) discontinue LR C) initiate doxycycline as detailed below D) check procalcitonin today E) AM renal panel, CBC B) Unspecified depression with suicide ideation 1) Data: A) evaluated 01/05 and apparently not yet appropriate for inpatient mental health 2) Regimen: A) BuSpar 10 mg twice daily 01/06 B) Desyrel 50 mg nightly C) Atarax 50 mg every 6 hours as needed sleep, anxiety 3) Plan: A) as noted by psychiatry team 01/05 discontinue Wellbutrin as concern for lowering seizure threshold in the setting of alcohol use B) BuSpar resumed 01/06 by psychiatry team C) await input from psychiatry regarding whether able to take to inpatient mental health C) Suspect bronchitis 1) Data: A) physical exam as below 2) Regimen: A) lactated Ringer's at 100 cc/h 3) Plan: A) doxycycline 100 mg twice daily for 5 days B) discontinue lactated Ringer's C) check procalcitonin Chronic Medical Problems A) tobacco user 1) Regimen: A) nicotine patch 21 mg daily 2) Plan: A) per requested lower nicotine patch to 14 mg daily B) history of GERD without esophagitis 1) Regimen: A) Protonix 40 mg daily C) seasonal allergies 1) Regimen: A) Zyrtec 10 mg daily B) Flonase 1 spray daily DVT Prophylaxis: Lovenox Code Status: Protonix Orders Placed This Encounter Total Support GI Prophylaxis: Protonix Clinical events 01/07/2023: Seen today by the psychiatry team, Wellbutrin resumed as well as recommendations to continue Ataraxand BuSpar. Patient does not meet criteria for inpatient mental health. Seen by chemical dependency today and patient unsuccessfully linked for inpatient detox. Patient endorsed he is feeling claustrophobic . Resources placed in AVS per chemical dependency for transition to outpatient resources. Labs reviewed 01/06 procalcitonin noted to be 0.04. As noted above ALT did improve to 80 from 98. 01/07 chemistry normal except for glucose 107. White count improved to 5.7.. Will defer to primary care provider to reassess as outpatient with outpatient labs ordered as above. Mckinley did receive a dose of Ativan late this morning for a CIWA score of 12, 5 points of the score was for anxiety. When seen today patient is denying alcohol withdrawal symptoms. He is feeling ready to go home and has an action plan. Denying chest pain or shortness of breath. Labs from today reviewed also demonstrates mild eosinophilia at 5.1% (normal 5.0); in the past he did have eosinophilia up to 6.6% in August 2022 and then subsequently normal percentage of the same noted in September and October of this year. Will defer to primary care provider to further assess. Discharge status today medically with prescriptions as below. Advised patient personally that he will need to get a release from his primary care provider before returning to work. Suspect blood pressure last reading 9754 with MAP of 70 likely related to effects of Librium given rather than symptomatic hypotension. Patient ambulatory in the room and did not comment any chest pain or dizziness. Thus taper as outpatient, patient not to drive while taking this medication. PENDING TESTS and PERTINENT FINDINGS REQUIRING FOLLOW UP: Outpatient labs PROCEDURES PERFORMED: As noted in report MEDICATIONS: Medication List Start Details chlordiazePOXIDE 5 mg capsule Commonly known as: LIBRIUM Take 5 Cap by mouth daily for 1 day, THEN 4 Cap daily for 1 day, THEN 3 Cap daily for 1 day, THEN 2Cap daily for 1 day, THEN 1 Cap daily for 1 day. No driving on this medication. Start taking on: January 08, 2023 Config Med (NOT VALID FOR CONTROLLED SUBSTANCES) You will need to get a release to return to work from your family provider Config Med (NOT VALID FOR CONTROLLED SUBSTANCES) To whom it may concern, This patient was hospitalized 01/05-01/07/2023. Will need to have a separate release from his family provider to return to work. Config Med (NOT VALID FOR CONTROLLED SUBSTANCES) It is recommended that when you leave the hospital that you go to walk-in [facility], [facility] or [facility] for intake and placement Config Med (NOT VALID FOR CONTROLLED SUBSTANCES) You have elevated ALT liver enzyme and elevated eosinophil percentage on your blood work. This needs to be followed as outpatient. Advise that you refrain from alcohol and complete blood work ordered and follow-up with your primary care provider to go over results. The cause for these elevations could be from your alcohol use. doxycycline MONOhydrate 100 mg capsule Commonly known as: MONODOX Take 1 Cap by mouth every 12 hours for 4 days hydrOXYzine HCL 50 mg tablet Commonly known as: ATARAX Replaces: hydrOXYzine pamoate 50 mg capsule Take 1 Tab by mouth every 6 hours as needed HYDROXYZINE PAMOATE 50 MG CAPSULE Dispensed: 12/21/2022 12:00 AM Unit strength: 50 mg Unit form: Capsule Days supply: 15 Quantity: 90 Cap Pharmacy: None Authorizing provider: None Received from: [email or web address] (Claim History, Acute Care) Brand or Generic: Generic nicotine 14 mg/24 hr transdermal patch Commonly known as: HABITROL 1 Patch by Transdermal route daily for 30 days Start taking on: January 08, 2023 Modify Details buPROPion 150 mg XL-tablet 24 Hr Commonly known as: WELLBUTRIN XL What changed: additional instructions Take 1 Tab by mouth daily BUPROPION XL 150 MG TABLET, EXTENDED RELEASE 24 HR Dispensed: 12/28/2022 12:00 AM Unit strength: 150 mg Days supply: 30 Quantity: 30 Tab Pharmacy: None Authorizing provider: None Received from: [email or web address] (Claim History, Acute Care) Brand or Generic: Generic Start taking on: January 08, 2023 busPIRone 10 mg tablet Commonly known as: BUSPAR What changed: additional instructions Take 1 Tab by mouth two times a day for 7 days Refills per primary care provider fluticasone propionate 50 mcg/actuation nasal spray Commonly known as: FLONASE What changed: how much to take how to take this when to take this 2 Sprays by Each Nostril route daily loratadine 10 mg tablet Commonly known as: CLARITIN What changed: additional instructions Take 1 Tab by mouth daily for 7 days Obtain refills from primary care provider Melatonin 5 mg Tablet tablet Commonly known as: MELATONIN What changed: additional instructions Take 1 Tab by mouth at bedtime MELATONIN 5 MG TABLET Dispensed: 12/31/2022 12:00 AM Unit strength: 5 mg Unit form: Tablet Days supply: 15 Quantity: 30 Tab Pharmacy: None Authorizing provider: None [facility] Brand or Generic: Generic Continue Details folic acid 1 mg tablet Commonly known as: FOLATE Take 1 Tab by mouth daily omeprazole [address]-capsule Commonly known as: priLOSEC Take 1 Cap by mouth daily Therems-M 9 mg iron-400 mcg tablet Generic drug: vitamins multiple therapeutic w/ minerals Take 1 Tab by mouth daily for 30 days thiamine 100 mg tablet Commonly known as: vitamin B1 Take 1 Tab by mouth daily for 30 days traZODone 50 mg tablet Commonly known as: DESYREL Take 1 Tab by mouth at bedtime Stop B Complex 1 (with folic acid) 0.4 mg Tablet Generic drug: B Complex-Folic Acid baclofen 10 mg tablet Commonly known as: LIORESAL cloNIDine HCL 0.1 mg tablet Commonly known as: CATAPRES cyclobenzaprine 10 mg tablet Commonly known as: FLEXERIL diazePAM 5 mg tablet Commonly known as: VALIUM dicyclomine 20 mg tablet Commonly known as: BENTYL ergocalciferol 1,250 mcg (50,000 unit) capsule Commonly known as: VITAMIN D2 hydrOXYzine pamoate 50 mg capsule Commonly known as: VISTARIL Replaced by: hydrOXYzine HCL 50 mg tablet ondansetron 4 mg RAPID DISSOLVING tablet Commonly known as: ZOFRAN ODT Tab-A-Renae Multivitamin w-iron 15 mg iron- 400 mcg Tablet Generic drug: multivit-iron sulf-folic acid venlafaxine 25 mg tablet Commonly known as: EFFEXOR Where to Get Your Medications These medications were sent to [facility] [place] [id number] busPIRone 10 mg tablet chlordiazePOXIDE 5 mg capsule doxycycline MONOhydrate 100 mg capsule fluticasone propionate 50 mcg/actuation nasal spray folic acid 1 mg tablet loratadine 10 mg tablet nicotine 14 mg/24 hr transdermal patch Therems-M 9 mg iron-400 mcg tablet thiamine 100 mg tablet Information about where to get these medications is not yet available Ask your nurse or doctor about these medications buPROPion 150 mg XL-tablet 24 Hr Config Med (NOT VALID FOR CONTROLLED SUBSTANCES) Config Med (NOT VALID FOR CONTROLLED SUBSTANCES) Config Med (NOT VALID FOR CONTROLLED SUBSTANCES) Config Med (NOT VALID FOR CONTROLLED SUBSTANCES) hydrOXYzine HCL 50 mg tablet Melatonin 5 mg Tablet tablet NEW MEDICATION FOLLOW UP RESPONSIBILITY: As noted in AVS ALLERGIES and INTOLERANCES: No Known Allergies DATA EXAM: General: A&O x3, in no acute distress; does not seem fidgety today HEENT: Normocephalic, atraumatic, mucous membranes moist, no bleeding from the mouth CV: S1, S2 Lungs: Diminished breath sounds bilateral without wheeze or rhonchi Abd: + BS, no peritoneal signs Ext: Pulses equal of upper and lower extremities Neuro: Grossly non-focal, moving arms and legs spontaneously, ambulating in the room, no evidence of seizure activity Psych: No evidence of suicidal ideation, by assessment does have capacity to make decisions, anxious for discharge LAST SET OF VITALS: BP: 97/54 Temp: 97.6 F (36.4 C) Pulse: 59 Resp: 16 Last Weight 01/05/23 104.3 kg (230 lb) FINAL BASIC LABS: CMP or BMP: Lab Results Component Value Date NA 139 01/07/2023 POTASSIUM 4.6 01/07/2023 CL 105 01/07/2023 CO2 25 01/07/2023 GLUCOSE 107 (H) 01/07/2023 BUN 19 01/07/2023 CREATININE 1.2 01/07/2023 CA 8.9 01/07/2023 TP 7.2 01/05/2023 TP 7.2 01/05/2023 ALB 3.6 01/07/2023 ALKP 106 01/05/2023 ALKP 106 01/05/2023 AST 30 01/05/2023 AST 30 01/05/2023 ALT 80 (H) 01/05/2023 ALT 80 (H) 01/05/2023 TBIL <0.2 01/05/2023 TBIL <0.2 01/05/2023 CBC: Lab Results Component Value Date WBC 5.7 01/07/2023 HEMOGLOBIN 14.1 01/07/2023 HEMATOCRIT 40.9 01/07/2023 PLATELETS 313 01/07/2023 MCV 83.8 01/07/2023 MCH 28.9 01/07/2023 MCHC 34.5 01/07/2023 RDW 13.1 01/07/2023 MPV 8.2 01/07/2023 PT/PTT/INR: No results found for: PT , PTT , INR IMAGING XR CHEST PA OR AP 1 VIEW (PORTABLE) Result Date: 01/04/2023 EXAM: XR Chest, 1 View CLINICAL INDICATION: 37 years Male ; MENTAL HEALTH PROBLEM, ABDOMINAL PAIN, BACK PAIN, CHEST PAIN, TECHNIQUE: Frontal view of the chest. COMPARISON: No relevant prior studies available. FINDINGS: LUNGS AND PLEURAL SPACES: Unremarkable. No consolidation. No pneumothorax. HEART: Unremarkable. No cardiomegaly. MEDIASTINUM: Unremarkable. Normal mediastinal contour. BONES/JOINTS: Unremarkable. No acute fracture. IMPRESSION: Normal chest x-ray. Dictated by: Umang Palma MD Workstation ID:[id number] PATIENT STATUS ADVANCE DIRECTIVES Durable Power of Banquet Line Cook: Living Will: Code Status Information Code Status Total Support PLANNED INTERVENTIONS Home Care Agency: Home Medical Care - Admitted Since 01/05/2023 No services have been selected for the patient. Assessment of Family & Upkeep Mechanic Status: DISPOSITION FOLLOW UP APPOINTMENTS: Angelito Lamb MD [facility] [phone] Follow up Establish with a primary care provider as you will need to get a release to return to work Follow up DISCHARGE ORDERS Discharge Procedure Orders Comprehensive Metabolic Panel (Alb, ALT, AST, T Juan Diego, BUN, Ca, CO2, Cl, Cr, Glu, Alk Phos, K, T Prot, Na) Standing Status: Future Standing Exp. Date: 02/05/23 Order Comments: Results to primary care provider Order Specific Question Answer Comments Source? Venous. Release to patient Immediate [1] Complete Blood Count with Differential Standing Status: Future Standing Exp. Date: 02/05/23 Order Comments: Results to primary care provider Order Specific Question Answer Comments Source? Venous. Release to patient Immediate [1] Resume Regular Diet (upon discharge) Order Specific Question Answer Comments Order Regular Maintain the following activity (Specify) Order Comments: No driving while completing the rest of the taper of Librium You will need to get a release to return to work from your primary care provider Consult to Family Practice Referral Priority: Routine Referral Type: Consultation Referral Reason: Specialty Services Required Requested Specialty: Family Practice Number of Visits Requested: 1 DISPOSITION: Home CONDITION AT DISCHARGE: fair 40 Minutes spent in preparation of discharging this patient including face to face encounter, discussions with the patient and family, medication reconciliation, and transition of care preparation. Electronically signed by: Gema Gotti DO, 01/07/2023 3:26 PM * Balbir Pichardo DO - 01/07/2023 7:30 AM EST [facility] Psychiatric Consultation Liaison Team Follow-Up Note 01/07/2023 Patient Name: Mckinley Roman : 1985 Assessment: Patient seen for subsequent evaluation this morning. Denied any new or acute mood symptoms. Denies any SI/HI/AVH and denies any safety concerns. Confirms that in the past he has reported suicidal ideation due to fears that his withdrawal symptoms would not be adequately treated. Suspect mood symptoms predominantly due to intoxication and subsequent withdrawal. Able to appropriately safety plan atthis time and is future and goal oriented. Discontinued the sitter and no longer under a pink slip.Agreeable to meeting with CD team for possible resources and pending referral to outpatient resident ial treatment. Tolerating BuSpar 10 mg twice a day and will start Wellbutrin 150 mg XL po daily perprevious home dose as patient has reported good effect from this in the past. Otherwise no acute psychiatric concerns or barriers to discharge. Psychiatry will sign off. Diagnoses: Unspecified Depression -Suspect depressed mood in setting of intoxication and subsequent withdrawal Severe Alcohol Use Disorder Moderate Methamphetamine Use Disorder Moderate Cocaine Use Disorder Moderate Opoid Use Disorder Plan Patient DOES NOT meet criteria for inpatient psychiatric admission. Pending CD team evaluation. No psychiatric barriers to discharge. Safety: per primary team. No longer needs a sitter. Order DCed Medications: Defer withdrawal management to primary team. Start Wellbutrin XL 150mg PO daily. Discussed side effects and safety concerns including risk of seizures in the setting of alcohol withdrawal. Low risk at this time and patient tolerated in the past. Continue Atarax 50 mg po Q6H for anxiety Continue BuSpar 10 mg p.o. 2 times a day for anxiety Psychiatric Consult Team will sign off. The patient was told the medication risks, benefits, and side effects. The patient verbalized understanding and agreed with the treatment regimen as outlined above. Subjective: Chief Complaint: withdrawal symptoms Denied any new or acute mood symptoms. Denies any SI/HI/AVH and denies any safety concerns. Feelingimproved overall with CIWA score significantly improved since admission.. Last Diazepam 10 mg PRN 01/06 at night. Now on librium taper dose of 25 mg daily per primary team. Sleep reported as well, documented about 5 hours per sitter. Appetite good, normal per patient. Future and goal oriented with plan for possible residential treatment for alcohol. Interested in speaking to the CD team today. Otherwise able to safety plan without any acute safety concerns. Psychiatric Review of Systems Reviewed per previous consult note, with updates as follows: As above Allergies: No Known Allergies Medical Review of Systems Reviewed per note on 01/06, with updates as follows: As above Past Medical, Social, and Family History Reviewed per note on 01/06, with updates as follows: As above Current Facility Medications: Scheduled meds: busPIRone (BUSPAR) tablet 10 mg 10 mg Oral BID; nicotine (HABITROL) 14 mg/24 hr transdermal patch 1Patch 1 Patch Transdermal Daily; doxycycline MONOhydrate (MONODOX) capsule 100 mg 100 mg Oral Q12H;chlordiazePOXIDE (LIBRIUM) capsule 25 mg 25 mg Oral Daily; fluticasone propionate (FLONASE) nasal spray 1 [place] Each Nostril Daily; cetirizine (zyrTEC) tablet 10 mg 10 mg Oral Daily; Melatonin tablet 5 mg 5 mg Oral HS; pantoprazole (PROTONIX) enteric-coated tablet 40 mg 40 mg Oral Daily; traZODone (DESYREL) tablet 50 mg 50 mg Oral HS; [START ON 01/12/2023] thiamine (VITAMIN B1) tablet 100 mg 100 mg Oral Q12H; folic acid (FOLATE) tablet 1 mg 1 mg Oral Daily; vitamins multiple therapeutic w/ minerals (THERAGRAN-M) tablet 1 Tab 1 Tab Oral Daily; saline flush 10 mL IV Push Q12H; enoxaparin(LOVENOX) syringe 40 mg 40 mg Subcutaneous Daily at 2100 Continuous infusions: PRN meds: hydrOXYzine HCL (ATARAX) tablet 50 mg diazePAM (VALIUM) inj syringe 10 mg OR LORazepam (ATIVAN) tablet 2 mg OR diazePAM (VALIUM) inj syringe 10 mg alum & mag hydroxide with simethicone (MAALOX,MYLANTA) oral SUSPension 30 mL ondansetron (ZOFRAN ODT) RAPID DISSOLVING tablet 4 mg OR ondansetron (ZOFRAN) injection 4 mg saline flush acetaminophen (TYLENOL) tablet 650 mg (Meds that have been ordered and completed are not included above) VITAL SIGNS: Temp: 97.5 F (36.4 C) (01/07/23510) Temp Av.8 F (36.6 C) Min: 97.4 F (36.3 C) Max: 98.5 F (36.9 C) BP: 108/65 (01/07/23510) Pulse: 52 (01/07/23510) Resp: 16 (01/07/23510) SpO2: 96 % (01/07/23510) MENTAL STATUS EXAM Mckinley Roman is a 37 year old male General Appearance: Adult male, appears stated age, sitting up in bed, in no acute distress. Fair hygiene/grooming. Fair eye contact. Consciousness: Alert. Awake Orientation: intact to person, place, time, and situation Mood: ok, better today Affect: euthymic. Full range, non-labile. Mood-congruent & appropriate to content of speech. Attitude: Calm. Cooperative. Speech: Normal rate, rhythm, volume & spontaneity. No dysarthria. Language: Normal unaccented Palestinian; intact naming and repeating. No aphasia Fund of Knowledge: Intelligence is judged as average. Fund of knowledge is judged as average. Thought Process: Coherent. Logical, linear, goal-directed. No tangentiality, circumstantiality, or FOI Associations: Appropriate. Not Loose Thought Content: Appropriate to conversation. Primarily concerned with resources for alcohol use/residential treatment perception/Hallucinations: Denies AVH and illusions. No RTIS noted. Suicidal Ideation/Homicidal Ideation: Denies SI. Denies HI. Recent and Remote Memory: intact Attention/Concentration: appropriate, intact Insight/Judgement: fair/fair - improved in regards to SI and recognition the gravity/severity of such statements Strength/Tone/Abnormal Movements: Moves all 4 extremities against gravity without abnormalities, nodystonia, dyskinesia or tremor noted. Patient politely refused formal assessment. Gait/Station: Patient politely refused. LABS: Recent Results (from the past 24 hour(s)) PROCALCITONIN Collection Time: 01/06/23 4:25 PM Result Value Ref Range Procalcitonin 0.04 0.00 - 0.09 ng/mL Electronically signed by: Balbir Pichardo DO, 01/07/2023 7:31 AM Associated attestation - Michael Marquis MD - 01/07/2023 11:28 AM EST I have personally seen and examined this patient with residents this morning. I have fully participated in the care of this patient. I have reviewed and agree with all pertinent clinical information including history, physical exam, labs, radiographic studies, and the plan. I have also reviewed andagree with the medications, allergies, and past medical history sections for this patient unless otherwise noted below. Patient is alert, fully oriented, organized in thought process, future and goal- oriented, exhibits full range of emotion, and emphatically denies SI/HI/AVH. Reiterates that he was not actually suicidal prior to admission but rather was trying to ensure he received adequate care for his withdrawal. States that withdrawal is going well and denies acute physical complaints. Readily agreeable to restarting Wellbutrin XL this today as well as meeting with the CD team to discuss alcohol use disorder treatment options. Patient is able to safety plan independently and effectively. Patient does not require inpatient psychiatric admission. Sitter and suicide precautions discontinued. Appreciate assistance of CD team. Consult team will sign off. VITAL SIGNS: Temp: 97.6 F (36.4 C) (01/07/23831) Temp Av.9 F (36.6 C) Min: 97.4 F (36.3 C) Max: 98.5 F (36.9 C) BP: 97/54 (01/07/23831) Pulse: 59 (01/07/23831) Resp: 16 (01/07/23831) SpO2: 96 % (01/07/23 0511) MENTAL STATUS EXAM Mckinley Roman is a 37 year old male General Appearance: Appears stated age, good grooming and eye contact, resting comfortably in bed Consciousness: Alert Orientation: intact to person, place, time, and situation Mood: better Affect: Euthymic, full, not labile Attitude: cooperative, polite, interactive Speech: Normal rate, rhythm, volume & spontaneity Language: Normal unaccented Palestinian; intact naming and repeating Fund of Knowledge: Intelligence is judged as average. Fund of knowledge is judged as average. Thought Process: linear, logical, coherent, goal-oriented, future-oriented Associations: intact Thought Content: Future planning. No delusions or paranoia Perception/Hallucinations: Denies AVH and tactile hallucinations. No RTIS Suicidal Ideation/Homicidal Ideation: Adamantly denies SI/HI Recent and Remote Memory: intact Attention/Concentration: appropriate, intact Insight/Judgement: fair/fair Strength/Tone/Abnormal Movements: moving all limbs spontaneously; no abnormal movements noted Gait/Station: deferred Diagnoses: Unspecified Depression -Suspect depressed mood in setting of intoxication and subsequent withdrawal Severe Alcohol Use Disorder Moderate Methamphetamine Use Disorder Moderate Cocaine Use Disorder Moderate Opoid Use Disorder Electronically signed by: Michael Marquis MD, 01/07/2023 11:20 AM * Priti Willams - 01/06/2023 8:13 PM EST PASTORAL CARE VISIT NOTE SITUATION Referral: E Learning Manager / Nurse called Purpose: Pastoral visit. Family: Not present. APPRAISAL Spirituality: not known Dynamics: Open to spiritual support?: yes Concerns of patient/family: N/A PASTORAL MINISTRY Care provided: Pastoral presence pt. Wanted a Bible Follow up: As needed OPERATING SYSTEM DESIGNER NOTES Provided a Bible for him and the Daily bread Priti Willams * Gema Gotti DO - 01/06/2023 2:30 PM EST Images from the original note were not included. [facility] Hospitalist Progress Note Patient Name: Mckinley Roman : 1985 Time Seen: 2:30 PM Reason for Continued Hospital Level of Care/Barriers to Discharge: Specialists- awaiting clearance that patient stable for discharge per psychiatry . Patient was admitted to the hospital from Home and plan to discharge to Home on Jan 07, 2023. Assessment and Plan : Mckinley Roman is a 37 year old male, with a 17-year history of alcohol use and endorsed multiple times of recidivism, endorsed to the emergency room yesterday suicidal ideations. Recently coming off of a 5-day binge . 01/05 admitted to the hospital, started on CIWA protocol. Psychiatry consultation placed. Involuntary hold placed by psychiatry team. 01/06 assuming care, patient feels ready to be discharged home. Denies any current hallucinations or suicidal thoughts. When seen is also concerned about being off of the IV fluids. Also requested that the Habitrol patch to be lowered in terms of dose. CODE STATUS verified as full and order updatedhas not done prior. Physician/Nurse Bedside Rounding (Y/N): N Admission Date: 01/05/2023 Hospital day# 0 Active Medical Problems and Plan of Care per Gema Gotti ( ) A) Alcohol intoxication with withdrawal - ALT elevation 1) Data: A) 01/04 CMP normal except for ALT 98, CBC normal except for platelets 533, alcohol level 145; chest x-ray nonacute; troponin 7, less than 6, lipase 26 B) 01/05 white count 13, platelets 543, absolute neutrophils 9%, C) 01/05 UA not indicative of UTI however some degree of concentration and specific gravity greaterthan 1.03 D) 01/05 urine drug screen negative, ethanol level 147 E) 01/05 CMP normal except for ALT 80, glucose 101, phosphorus 4.7, magnesium 1.9, TSH 0.879 2) Regimen: A) lactated Ringer's at 100 cc/h B) Tylenol 650 mg every 6 hours as needed C) Maalox 30 mls every 4 hours as needed D) Librium 25 mg twice daily 01/06-01/07, Librium 25 mg daily beginning 01/07 E) Valium 10 mg every hour as needed for CIWA score greater than 12 F) Folate1 mg daily G) multivitamin daily H) thiamine 100 mg every 12 hours x 14 doses 3) Plan: A) Medically do feel patient could be transferred to inpatient mental health if needed - updated RNto recheck CIWA scoring and noted to be 8 from 13, so no barriers for discharge to inpatient mentalhealth from a medical perspective B) discontinue LR C) initiate doxycycline as detailed below D) check procalcitonin today E) AM renal panel, CBC B) Unspecified depression with suicide ideation 1) Data: A) evaluated 01/05 and apparently not yet appropriate for inpatient mental health 2) Regimen: A) BuSpar 10 mg twice daily 01/06 B) Desyrel 50 mg nightly C) Atarax 50 mg every 6 hours as needed sleep, anxiety 3) Plan: A) as noted by psychiatry team 01/05 discontinue Wellbutrin as concern for lowering seizure threshold in the setting of alcohol use B) BuSpar resumed 01/06 by psychiatry team C) await input from psychiatry regarding whether able to take to inpatient mental health C) Suspect bronchitis 1) Data: A) physical exam as below 2) Regimen: A) lactated Ringer's at 100 cc/h 3) Plan: A) doxycycline 100 mg twice daily for 5 days B) discontinue lactated Ringer's C) check procalcitonin Chronic Medical Problems A) tobacco user 1) Regimen: A) nicotine patch 21 mg daily 2) Plan: A) per requested lower nicotine patch to 14 mg daily B) history of GERD without esophagitis 1) Regimen: A) Protonix 40 mg daily C) seasonal allergies 1) Regimen: A) Zyrtec 10 mg daily B) Flonase 1 spray daily DVT Prophylaxis: Lovenox Code Status: Protonix Orders Placed This Encounter Total Support GI Prophylaxis: Protonix Total Time = 35 minutes Current Facility-Administered Medications Medication Dose Route Frequency Provider Last Rate Last Admin busPIRone (BUSPAR) tablet 10 mg 10 mg Oral BID Balbir Pichardo DO 10 mg at 01/06/23 1521 nicotine (HABITROL) 14 mg/24 hr transdermal patch 1 Patch 1 Patch Transdermal Daily Gema Gotti DO 1 Patch at 01/06/23 1520 hydrOXYzine HCL (ATARAX) tablet 50 mg 50 mg Oral Q6H PRN Michael Marquis MD 50 mg at 01/06/23 1503 doxycycline MONOhydrate (MONODOX) capsule 100 mg 100 mg Oral Q12H Gema Gotti DO [START ON 01/07/2023] chlordiazePOXIDE (LIBRIUM) capsule 25 mg 25 mg Oral Daily Uriah Wallace APRN fluticasone propionate (FLONASE) nasal spray 1 [place] Each Nostril Daily Uriah Wallace APRN 1 [place] at 01/06/23 0952 cetirizine (zyrTEC) tablet 10 mg 10 mg Oral Daily Uriah Wallace APRN 10 mg at 01/06/23 0950 Melatonin tablet 5 mg 5 mg Oral HS Uriah Wallace APRN 5 mg at 01/05/23 2353 pantoprazole (PROTONIX) enteric-coated tablet 40 mg 40 mg Oral Daily Uriah Wallace APRN 40 mg at 01/06/23 0950 traZODone (DESYREL) tablet 50 mg 50 mg Oral HS Uriah Wallace TERMITE CONTROL SERVICER 50 mg at 01/05/23 2353 diazePAM (VALIUM) inj syringe 10 mg 10 mg IV Push Q1H PRN Uriah Wallace APRN 10 mg at 01/05/23 2147 Or LORazepam (ATIVAN) tablet 2 mg 2 mg Oral Q1H PRN Uriah Wallace APRN 2 mg at 01/05/23 1100 Or diazePAM (VALIUM) inj syringe 10 mg 10 mg Intramuscular Q1H PRN Uriah Wallace APRN alum & mag hydroxide with simethicone (MAALOX,MYLANTA) oral SUSPension 30 mL 30 mL Oral Q4H PRNSUriah chicas APRN ondansetron (ZOFRAN ODT) RAPID DISSOLVING tablet 4 mg 4 mg Oral Q6H PRN Uriah Wallace APRN Or ondansetron (ZOFRAN) injection 4 mg 4 mg IV Push Q6H PRN Uriah Wallace APRN [START ON 01/12/2023] thiamine (VITAMIN B1) tablet 100 mg 100 mg Oral Q12H Uriah Wallace APRN folic acid (FOLATE) tablet 1 mg 1 mg Oral Daily Uriah Wallace APRN 1 mg at 01/06/23 0950 vitamins multiple therapeutic w/ minerals (THERAGRAN-M) tablet 1 Tab 1 Tab Oral Daily Uriah Wallace APRN 1 Tab at 01/06/23 0955 chlordiazePOXIDE (LIBRIUM) capsule 25 mg 25 mg Oral BID Uriah Wallace APRN saline flush 10 mL IV Push Q12H Uriah Wallace APRN 1 Syringe at 01/06/23 0953 saline flush 10 mL IV Push PRN Uriah Wallace APRN enoxaparin (LOVENOX) syringe 40 mg 40 mg Subcutaneous Daily at 2100 Uriah Wallace APRN 40 mg at 01/05/232126 acetaminophen (TYLENOL) tablet 650 mg 650 mg Oral Q6H PRN Uriah Wallace APRN Electronically signed by: Gema Gotti DO, 01/06/2023 3:29 PM Subjective Seen and examined. States he is no longer feeling suicidal. Psychiatry team did see patient today. Not yet notified if able to be discharged from their standpoint or possibly needing inpatient mental health. Endorsed he has been struggling with alcohol issues for 17+ years. In addition added that he has been in and out of rehab and is not sure if his insurance will pay for further rehab for alcohol use. Denying chest pain, shortness of breath, abdominal pain. Objective Vital Signs: Vitals: 01/05/23 2143 01/06/23 0358 01/06/23 0800 01/06/23 1130 BP: 129/62 140/64 109/71 105/57 Pulse: 70 59 56 66 Resp: 16 20 16 14 Temp: 97.9 F (36.6 C) 97.6 F (36.4 C) 97.4 F (36.3 C) 97.4 F (36.3 C) SpO2: 98% 93% 93% 100% Temp: 97.4 F (36.3 C) (01/06/23 1130) Temp Min: 97.4 F (36.3 C) Min taken time: 01/06/23 113 Max: 97.9 F (36.6 C) Max taken time: 01/05/232142 BP: 105/57 (01/06/23 1130) Pulse: 66 (01/06/23 1130) Resp: 14 (01/06/23 113) SpO2: 100 % (01/06/23 1130) I/O last 3 completed shifts: In: 1440 [P.O.:1440] Out: - @[id number]@ Baseline Weight: 104.3 kg (230 lb) (01/05/23 040) Most recent Weight: 104.3 kg (230 lb) (01/05/23 040) Physical Exam: General: Alert and oriented x3, seems a bit fidgety HEENT: Normocephalic, atraumatic, no gross evidence of nystagmus CV: S1, S2 Lungs: Diminished breath sounds bilaterally however bronchitic breath sounds noted in the mid riley, no significant rales Abd: Bowel sounds positive, no significant tenderness; no suprapubic tenderness Ext: Radial pulse and AT pulse present bilaterally, Homans' sign negative bilaterally Neuro: Grossly non-focal, no evidence of nystagmus however mild tremor of the hands noted, is alertand oriented x3 Psych: Patient seems a bit fidgety and seems to be repeatedly asking about being discharged; able to be redirected * Lona Varela RN - 01/06/2023 2:[address] [facility] Chef [employer] Owner Opening Interview Progress Note Presents for evaluation/treatment of Alcohol abuse with withdrawal (HC CODE) [F10.139]. Patient has a past medical history of Alcohol abuse. Met with Mckinley Roman who is a 37 year old male at bedside. Introduced self and role of showcase maker. Discussed current living situation/dc plans. Patient lives with Other (Comment) (homeless) in a Homeless, with . If in an apartment, do you have elevator: Not applicable. Baseline Activity: Independent Current DME Equipment:DME: None Current home oxygen needs (Frequency, Liters, supplier): na Passport/Waiver Services: na If yes, showcase maker name/number:na Transportation needs at discharge: [facility] Declines home care follow-up at discharge. PCP Name : Fatoumatataff, [facility] [phone] no PCP, referral made Patient to have prescriptions filled at [facility] Outpt Pharmacy at dc: Yes If no, what pharmacy do you currently use: na DC plans: ADELE: Jan 07, 2023 Discharge disposition: Half-Way Transportation needs at discharge: Cab Primary support person name/ relationship: none per patient Barriers to D/C : Suicide precautions, sitter, pink slip, CIWA, IVF Additional Needs: inpatient rehab/psych at discharge Patient expresses agreement in discharge plan. GARCIA/IM There are no Advance Care Planning documents on file. Will monitor patient's progress and readiness for discharge. Electronically signed by: Lona Varela RN, Chef & Owner, Phone [phone], 01/06/2023 2:20 PM Weekday Office Hours: 8:30-5:00. Holiday/Weekends [phone]. For urgent needs between 5p-7p, please call [phone]. If after 7pm, please call [facility] at [phone] or [facility] at [phone]. * Balbir Pichardo DO - 01/06/2023 8:37 AM EST [facility] Psychiatric Consultation Liaison Team Follow-Up Note 01/06/2023 Patient Name: Mckinley Roman : 1985 Assessment: Seen for subsequent evaluation this morning. Denies any new or acute mood symptoms and reported feeling mildly improved in regards to alcohol withdrawal. Endorsed fluctuating and intermittent suicidal thoughts but denied any intent or plan. Reports this is probably due to increased stress and anxiety due to fears that he will not be able to get into a safe residential treatment program for alcohol. Has no acute concerns. We will defer withdrawal management to the primary team but recommend considering increasing Librium dose if CIWA scores remain elevated. At this time patient does not meet inpatient psychiatric admission criteria due to medical needs, however evaluation is ongoing. Pending CD team evaluation. We will restart home BuSpar 10 mg twice a day for anxiety symptoms but continue to hold off Wellbutrin due to concerns for seizures. Psychiatry will continue to follow. Diagnoses: Suicidal Ideation - resolving Unspecified Depression Severe Alcohol Use Disorder Moderate Methamphetamine Use Disorder Moderate Cocaine Use Disorder Moderate Opoid Use Disorder Plan Patient DOES NOT meet criteria for inpatient psychiatric admission. Not medically appropriate for an inpatient psychiatric unit. Safety: per primary team Medications: Defer withdrawal management to primary team. Recommend increasing Librium taper dose to better manage alcohol withdrawal symptoms his CIWA scores remain elevated We will continue to hold Wellbutrin XL. May consider restarting an on discharge due to concerns forseizures Start BuSpar 10 mg p.o. 2 times a day for anxiety Psychiatric Consult Team will continue to follow this patient. The patient was told the medication risks, benefits, and side effects. The patient verbalized understanding and agreed with the treatment regimen as outlined above. Subjective: Chief Complaint: Suicidal Ideation Patient seen this AM. Patient reports feeling mildly nauseous with some abdominal pain and withdrawal symptoms but improved since yesterday. Denies any new or acute mood symptoms. Reports sleep/appetite normal. Denies SI/HI/AVTH at this time the later endorsed fluctuating and intermittent SI in thesetting of increased anxiety and concerns that he will not get into residential treatment center for alcohol treatment. However denied any intent or plan and was able to appropriately safety plan with this provider. Looking forward to possible resources per the CD team. Psychiatric Review of Systems Reviewed per previous consult note, with updates as follows: as above Allergies: No Known Allergies Medical Review of Systems Reviewed per note on 01/05, with updates as follows: as above Past Medical, Social, and Family History Reviewed per note on 01/05, with updates as follows: as above Current Facility Medications: Scheduled meds: [START ON 01/07/2023] chlordiazePOXIDE (LIBRIUM) capsule 25 mg 25 mg Oral Daily; fluticasone propionate (FLONASE) nasal spray 1 [place] 1 [place] Each Nostril Daily; cetirizine (zyrTEC) tablet 10 mg 10 mg Oral Daily; Melatonin tablet 5 mg 5 mg Oral HS; pantoprazole (PROTONIX) enteric-coated tablet 40 mg 40 mg Oral Daily; traZODone (DESYREL) tablet 50 mg 50 mg Oral HS; nicotine (HABITROL) 21 mg/24 hr transdermal patch 1 Patch 1 Patch Transdermal Daily; [START ON 01/12/2023] thiamine (VITAMIN B1) tablet 100 mg 100 mg Oral Q12H; folic acid (FOLATE) tablet 1 mg 1 mg Oral Daily; vitamins multiple therapeutic w/ minerals (THERAGRAN-M) tablet 1 Tab 1 Tab Oral Daily; chlordiazePOXIDE (LIBRIUM) capsule 50 mg 50 mg Oral Q6H FOLLOWED BY chlordiazePOXIDE (LIBRIUM) capsule 25 mg 25 mg Oral BID; saline flush 10 mL IV Push Q12H; enoxaparin (LOVENOX) syringe 40 mg 40 mg Subcutaneous Daily at 2100 Continuous infusions: lactated ringers parenteral solution Last Rate: 100 mL/hr at 01/05/237 PRN meds: hydrOXYzine HCL (ATARAX) tablet 50 mg diazePAM (VALIUM) inj syringe 10 mg OR LORazepam (ATIVAN) tablet 2 mg OR diazePAM (VALIUM) inj syringe 10 mg alum & mag hydroxide with simethicone (MAALOX,MYLANTA) oral SUSPension 30 mL ondansetron (ZOFRAN ODT) RAPID DISSOLVING tablet 4 mg OR ondansetron (ZOFRAN) injection 4 mg saline flush acetaminophen (TYLENOL) tablet 650 mg (Meds that have been ordered and completed are not included above) VITAL SIGNS: Temp: 97.4 F (36.3 C) (01/06/23 08) Temp Av.9 F (36.6 C) Min: 97.4 F (36.3 C) Max: 98.8 F (37.1 C) BP: 109/71 (01/06/23799) Pulse: 56 (01/06/23799) Resp: 16 (01/06/23799) SpO2: 93 % (01/06/23799) MENTAL STATUS EXAM Mckinley Roman is a 37 year old male General Appearance: Adult male, appears stated age, laying in bed, mildly distressed. Fair hygiene/grooming. Fair eye contact. Consciousness: Alert. Awake Orientation: intact to person, place, time, and situation Mood: ok, tired Affect: euthymic. Full range, non-labile. Mood-congruent & appropriate to content of speech. Attitude: Calm. Cooperative. Speech: Normal rate, rhythm, volume & spontaneity. No dysarthria. Language: Normal unaccented Palestinian; intact naming and repeating. No aphasia Fund of Knowledge: Intelligence is judged as average. Fund of knowledge is judged as average. Thought Process: Coherent. Logical, linear, goal-directed. No tangentiality, circumstantiality, or FOI Associations: Appropriate. Not Loose Thought Content: Appropriate to conversation. Primarily concerned with resources for alcohol use/residential treatment perception/Hallucinations: Denies AVH and illusions. No RTIS noted. Suicidal Ideation/Homicidal Ideation: Denies SI. Denies HI. Recent and Remote Memory: intact Attention/Concentration: appropriate, intact Insight/Judgement: fair/limited Strength/Tone/Abnormal Movements: Moves all 4 extremities against gravity without abnormalities, nodystonia, dyskinesia or tremor noted. Patient politely refused formal assessment. Gait/Station: Patient politely refused. LABS: Recent Results (from the past 24 hour(s)) CHEMICAL URINALYSIS Collection Time: 01/05/23 9:45 AM Result Value Ref Range Color, Urine Yellow Yellow, Colorless Clarity Urine Clear Clear pH, UA 5.5 5.0 - 8.0 pH Units Specific [place] >1.030 (H) 1.005 - 1.030 Units Protein 10 Negative, 10 mg/dl Glucose, UA Negative Negative mg/dl Ketones, UA Negative Negative mg/dl Bilirubin UA Negative Negative mg/dl Blood, UA Negative Negative Urobilinogen, UA <2 <2 mg/dl Nitrite, UA Negative Negative Leukocyte Esterase Negative Negative DRUG SCREEN, URINE Collection Time: 01/05/23 9:45 AM Result Value Ref Range Amphetamine, Urine Not Detected Not Detected Barbiturates, Urine Not Detected Not Detected Benzodiazepine, Urine Not Detected Not Detected Cocaine, Urine Not Detected Not Detected Marijuana (THC), Urine Not Detected Not Detected Opiates, Urine Not Detected Not Detected Electronically signed by: Balbir Pichardo DO, 01/06/2023 8:37 AM Associated attestation - Michael Marquis MD - 01/07/2023 8:13 AM EST I have personally seen and examined this patient with resident on 01/06/23. I have fully participated in the care of this patient. I have reviewed and agree with all pertinent clinical information including history, physical exam, labs, radiographic studies, and the plan. I have also reviewed and agree with the medications, allergies, and past medical history sections for this patient unless otherwise noted below. Patient participated much more fully in evaluation. Exhibits full range of affect. Shares that he has been told in the past that to ensure admission to a hospital for help with substances/alcohol that he must endorse SI. States that he was never truly suicidal leading up to admission, but has experienced SI in the past. Adamantly denies SI/HI/AVH. He is in the contemplation to preparation stage of change in regards to his alcohol use and is readily agreeable to meeting with the CD team. States that alcohol withdrawal is going well (reports most recent binge was only two days) and his only complaint is anxiety. Appreciative of medication adjustments as below. Addendum to Plan: Start Atarax 50 mg PO q6 prn anxiety or sleep Diagnoses: Unspecified Depression -Suspect depressed mood in setting of intoxication and subsequent withdrawal Severe Alcohol Use Disorder Moderate Methamphetamine Use Disorder Moderate Cocaine Use Disorder Moderate Opoid Use Disorder Electronically signed by: Michael Marquis MD, 01/07/2023 8:07 AM * Zane Blackwood RN - 01/05/2023 2:40 PM EST CM contacted patient's parol officer, Oj Bear ([phone]) at the request of patient to inform her he has been admitted. RN updated. Electronically signed by: Zane Moore RN, BSN, Chef [employer] Owner, Phone [phone], 01/05/2023 2:41 PM Weekday Office Hours: 8:30-5:00. Holiday/Weekends [phone]. For urgent needs between 5p-7p, please call [phone]. If after 7pm, please call [facility] at [phone] or [facility] at [phone]. documented in this encounterGalion Community [id number] Note* Care Plan - Leisa Drummond RN - 01/07/2023 3:45 PM EST Problem: Falls - Risk of Goal: Absence of falls Description: Avoid the routine use of bedrails or physical restraints as a fall- prevention intervention. Outcome: Adequate for Discharge Goal: Knowledge of fall prevention Outcome: Adequate for Discharge [facility] [id number] Miscellaneous Notes* Care Plan - Leisa Drummond RN - 01/07/2023 3:45 PM EST Problem: Falls - Risk of Goal: Absence of falls Description: Avoid the routine use of bedrails or physical restraints as a fall- prevention intervention. Outcome: Adequate for Discharge Goal: Knowledge of fall prevention Outcome: Adequate for Discharge * Care Plan - Gloria Woods RN - 01/06/2023 11:53 PM EST Problem: Falls - Risk of Goal: Absence of falls Description: Avoid the routine use of bedrails or physical restraints as a fall- prevention intervention. Outcome: Progressing Problem: Falls - Risk of Goal: Knowledge of fall prevention Outcome: Progressing documented in this encounterGalion Community [id number] Hospital Discharge instructions* Discharge Instructions* Nany Gallardo LSW - 01/07/2023 1:31 PM EST Chemical Dependency/Mental Health Resources AA Meetings www.[employer].org (31/08 line) to find local meeting locations and times NA Meetings www.dascna.org (31/08 line) to find local meeting locations and times [employer] Peer support workers are people who have been successful in the recovery process who help others experiencing similar situations [phone] [facility] Warmline (emotional support that may prevent a crisis) available Wednesday - Wednesday 11 am - 7 pm by calling [phone]. Suicide and Crisis Lifeline- call or text 776 Outpatient Alcohol & Substance Use Treatment: Please call treatment center for questions, walk-in hours, or to schedule intake appointment Addiction Services- [address] [address] [facility] [address] [place] [address] [facility] [address] [place] [address] [facility] [address] ([facility] [place] [address] [address] [place], [place] [phone] [facility] [address] [place], [place] [phone] Walk in-M-F 7-3:30 [facility] [address] [place], [place] [phone] [facility] [address] [address], [place] [address] ext [phone] [facility] [address] [facility] [place], [place] [phone] [facility] [address] [facility], [address] [place], [place] Inpatient/Residential Alcohol & Substance Use Treatment: Please call treatment center for questions, walk-in hours, or to schedule intake appointment [facility] [address] [place], [place] [phone] Centralized Admission Program Walk-in Hours Wednesday - Wednesday 9:00am - 7:00pm [facility] [address] [place] [address] [facility] [address] [facility] [place], [place] [phone] [phone] [place] [phone] 8am-4pm walk-in clinic [place], [place] [phone] documented in this encounterGalion Community [id number] NoteProblem: Falls - Risk of Goal: Absence of falls Description: Avoid the routine use of bedrails or physical restraints as a fall-prevention intervention. Outcome: Progressing Problem: Falls - Risk of Goal: Knowledge of fall prevention Outcome: [facility]-29-[facility] Note* Care Plan - Gloria Woods RN - 01/06/2023 11:53 PM EST Problem: Falls - Risk of Goal: Absence of falls Description: Avoid the routine use of bedrails or physical restraints as a fall- prevention intervention. Outcome: Progressing Problem: Falls - Risk of Goal: Knowledge of fall prevention Outcome: Progressing [facility] [id number] Emergency department Note* Marlee Medel RN - 01/05/2023 11:22 AM EST Handoff given to Norma TAY. Tech called for transport [facility] [id number] Emergency department Note* Marlee Medel RN - 01/05/2023 11:22 AM EST Handoff given to Norma TAY. Tech called for transport * Marlee Medel RN - 01/05/2023 9:46 AM EST Provider at bedside * Marlee Medel RN - 01/05/2023 9:45 AM EST Urine specimen collected and taken to lab * Liliam Gaviria DO - 01/05/2023 6:12 AM EST ATTENDING NOTE I have reviewed the chief complaint and history of present illness and review of systems as well asthe past medical/social/family history sections for this patient. I have examined this patient, andparticipated in the care of this patient. I have reviewed the pertinent clinical information including physical exam, labs, radiographic studies and the plan. HPI: Patient presented with requesting alcohol detox. He also states he is suicidal. He was seen for this 2 days ago. At that time he was being discharged to go as a walk-in for hospitalization at [facility]. He states he did not go there but rather went back and started drinking again. He states he has had a prior hospitalization for detox for a 30-day inpatient treatment but is uncertain when and where or how long he was sober after that detox hospitalization. On chart review the patient has had multiple hospitalizations for his alcohol abuse/intoxication. Alcohol level is 147 currently. Will be evaluated by behavioral health. He currently does not have any objective evidence of alcohol withdrawal, i.e. hypertension, tachycardia, or tremor/tongue fasciculations. He does however have an elevated CIWA given his symptom profile. He will be hospitalized for alcohol detox and behavioral health evaluation. Electronically signed by: Liliam Gaviria DO, 01/05/2023 7:21 AM * Tasha Brown PA-C - 01/05/2023 5:39 AM EST TRIAGE CHIEF COMPLAINT: Chief Complaint Patient presents with Suicidal Ideations Intoxication HPI: Mckinley Roman is a 37 year old male who presents to the emergency department complaining of wanting to stop drinking alcohol as well as suicidal ideations. To me, the patient reports drinking 3 bottles of vodka daily, each of those measuring 1/5 of alcohol. This means he drinks over 2 L of hard liquor daily. He states that he binges like this for numerous days in a row. However he wants tostop drinking. He states that he has tried to stop in the past but unfortunately has had seizures with previous alcohol withdrawals. Patient also reports suicidal ideations for the last few days. He states that he plans to kill himself by cutting himself. He also reports using meth in the last 24 ho urs. Admits to anxiety, agitation, nausea, vomiting. Denies any fevers, shortness of breath, chest pain, abdominal pain. External Records Reviewed: None REVIEW OF SYSTEMS: Otherwise negative unless stated above PAST MEDICAL HISTORY: Past Medical History: Diagnosis Date Alcohol abuse FAMILY HISTORY: No family history on file. SOCIAL HISTORY: Social History Socioeconomic History Marital status: Single Spouse name: Not on file Number of children: Not on file Years of education: Not on file Highest education level: Not on file Occupational History Not on file Tobacco Use Smoking status: Never Smokeless tobacco: Never Vaping Use Vaping Use: Every day Substance and Sexual Activity Alcohol use: Yes Alcohol/week: 40.0 standard drinks of alcohol Types: 40 Shots of liquor per week Comment: pint of whiskey daily, states today he drank multiple [place] rums Drug use: Not Currently Types: Cocaine, Methamphetamine Comment: last used months ago Sexual activity: Not on file Other Topics Concern Not on file Social History Narrative Not on file Social Determinants of Health Financial Resource Strain: Not on file Food Insecurity: Not on file Transportation Needs: Not on file Physical Activity: Not on file Stress: Not on file Social Connections: Not on file Intimate Partner Violence: Not on file Housing Stability: Not on file SURGICAL HISTORY: No past surgical history on file. CURRENT MEDICATIONS: No current facility-administered medications for this encounter. Current Outpatient Medications: cloNIDine HCL (CATAPRES) 0.1 mg tablet, Take 1 Tab by mouth once, Disp: , Rfl: ergocalciferol (VITAMIN D2) 1,250 mcg (50,000 unit) capsule, Take 1 Cap by mouth daily, Disp: , Rfl: folic acid (FOLATE) 1 mg tablet, Take 1 Tab by mouth daily, Disp: , Rfl: hydrOXYzine HCL (ATARAX) 50 mg tablet, , Disp: , Rfl: hydrOXYzine pamoate (VISTARIL) 50 mg capsule, 1 Cap, Disp: , Rfl: baclofen (LIORESAL) 10 mg tablet, , Disp: , Rfl: diazePAM (VALIUM) 5 mg tablet, , Disp: , Rfl: ondansetron (ZOFRAN ODT) 4 mg RAPID DISSOLVING tablet, Take 1 Tab by mouth every 6 hours as needed,Disp: 12 Tab, Rfl: 0 dicyclomine (BENTYL) 20 mg tablet, Take 1 Tab by mouth three times a day before meals and at bedtime, Disp: 14 Tab, Rfl: 0 cyclobenzaprine (FLEXERIL) 10 mg tablet, , Disp: , Rfl: fluticasone propionate (FLONASE) 50 mcg/actuation nasal spray, , Disp: , Rfl: venlafaxine (EFFEXOR) 25 mg tablet, Take 9 Tab by mouth once Per patient he states he takes 225mg once daily., Disp: , Rfl: ALLERGIES: Patient has no known allergies. PHYSICAL EXAM: VITAL SIGNS: Vitals: 01/05/23 0405 01/05/23 0449 01/05/23 0628 01/05/23 0700 BP: 139/71 146/84 113/54 Pulse: 89 91 88 Resp: 26 Temp: 98.1 F (36.7 C) SpO2: 99% 98% 97% 93% CONSTITUTIONAL: Awake, oriented, appears non-toxic HENT: Atraumatic, normocephalic, oral mucosa pink and moist, airway patent. Nares patent without drainage. External ears normal. EYES: Conjunctiva clear, pupils equal, round, reactive to light NECK: Trachea midline, non-tender, supple CARDIOVASCULAR: Normal heart rate, Normal rhythm PULMONARY/CHEST: Clear to auscultation bilaterally ABDOMINAL: Non-distended, soft, non-tender - no rebound or guarding. NEUROLOGIC: Non-focal, moving all four extremities, no gross sensory or motor deficits. EXTREMITIES: No clubbing, cyanosis, or edema. SKIN: Warm, Dry, No erythema, No rash ED COURSE / MEDICAL DECISION MAKING: Mckinley Roman is a 37 year old male who presents to the emergency department complaining of alcohol abuse, wanting to quit drinking, and suicidal ideations. Upon arrival vitals reviewed and are within normal limits. History and physical exam as above. Due to the patient's suicidal ideations and plan of wanting to cut himself, we did proceed with a pink slip. Will obtain remainder of workup for psychiatric evaluation and treatment as well. BMP within normal limits. CBC reveals slight leukocytosis at 13 and thrombocytosis at 543. Hepatic panel reveals ALT of 80. Blood ethanol level is 147. Patient CIWA score is 21. I am concerned that he will need admission for alcohol withdrawal first before undergoing psychiatric admission for evaluation of and treatment of suicidal ideations. Therefore will order a banana bag and a p.o. Ativan and call hospitalist for admission. Independent Interpretation of Studies: None Discussion of Management: Hospitalist Social Work Escalation/De-Escalation of Care: Admitted Billable Critical Care Time: None or <30 minutes Patient was seen and examined by myself and attending physician, Liliam Dorantes DO. All exam,laboratory, radiologic findings were discussed in the care and management of the patient. FINAL IMPRESSION: 1. Alcohol withdrawal syndrome without complication (HC CODE) 2. Suicidal ideation Electronically signed by: Tasha Brown PA-C, 01/05/2023 7:43 AM * Jennie Alvarado RN - 01/05/2023 4:49 AM EST Patient ambulated from GRN 17 to GRN 18 at this time. Gait steady. * Yu Adams RN - 01/05/2023 4:02 AM EST Patient to ED via medics with c/o wanting to stop drinking alcohol and suicidal ideations. Denies having plan. Has made attempt before. Cooperative. Reports last drink was several hours ago, currently coming off of a 5 day binge. Smells heavily of alcohol. Alert and oriented. Skin PWD, RR even and unlabored. Adds used Meth in the past 24 hours. [id number] Emergency department Note* Marlee Medel RN - 01/05/2023 9:46 AM EST Provider at [id number] Note* Marlee Medel RN - 01/05/2023 9:45 AM EST Urine specimen collected and taken to lab [id number] Consult note* Melida Mishra MD - 01/05/2023 8:53 AM EST [facility] Psychiatric Consultation Liaison Team 01/05/2023 Patient Name: Mckinley Roman : 1985 Reason for Consult: suicidal ideation and wanting to stop drinking alcohol Consulting Physician: Tasha Brown PA-C Assessment: Mckinley Roman is a 37 year old male with suicidal ideation and wanting to quit drinking alcohol. Has several risk factors for suicide; is currently having suicidal ideation but no active plans. Pt with unspecified depression given he's actively withdrawing, will reassess once he is outside of thewithdrawal window. He currently does not meet inpatient psych criteria. Pt wanting to go through alcohol detox and seek help for his severe alcohol use disorder. Has a high risk of seizure withdrawals given prior hx and severe alcohol use. Currently hemodynamically stable, but should be monitored closely. EKG: QTc: 417 ms on 01/03/2023 PDMP: Reviewed Diagnoses: Suicide Ideations Unspecified Depression Severe Alcohol Use Disorder Moderate Methamphetamine Use Disorder Moderate Cocaine Use Disorder Moderate Opoid Use Disorder Plan Patient DOES NOT meet criteria for inpatient psychiatric admission. Safety: 1:1 sitter and [place] Slip, seizure precautions Continue CIWAs Continue Thiamine 100mg BID with close monitoring for Wernicke's, can increase dose if any signs/symptoms Medications: Discontinue Wellbutrin in the setting of acute alcohol withdrawal given risk of seizures Discontinue additional psych medications at this time in the setting of acute alcohol withdrawal, can resume after pt is more stabilized in 2-3 days Recommend increasing scheduled Librium to 50mg TID for 2-3 days given severe alcohol use in addition to history of withdrawal seizures Psychiatric Consult Team will continue to follow this patient. History of Present Illness/ Chief Complaint: suicidal ideation Location: Psychiatric Severity: moderate Timing: on/off for years Duration: a couple of days Context: hx of alcohol use disorder, suicidal thoughts Modifying Factors: Associated Signs and Symptoms: Mckinley Roman is a 37 year old male with hx of AUD, substance use disorder, depression, and anxiety who presented to the ED wanting to stop drinking alcohol in addition to suidical ideation. Pt hashx of depression, is currently taking Wellbutrin but has not taken it in the past couple days. Reports hx of self cutting, particularly in his wrists and arms. However, denies any hx of suicide attempts or hospitalizations. States he's having suicidal thoughts in the last couple of days but has no active plans. He has been having intermittent thoughts for years now. Per chart review, pt has had multiple ED visits for SI and alcohol use. Last ED visist 01/03/2023, was given resources to self refer to [facility] since pt had intent to quit, but he did not go. Pt wanting to seek help to stop drinking now. States that he feels sick of it and knows its not good . Reports he's been intermittently drinking since he was 20 years old. The last couple of years, he has been drinking almost every day, drinks a couple of 1/5 bottles of Vodka or Whiskey. Last drink is reported to be a couple of hours before he came in to the ED. Has hx of seizures from alcohol withdrawal, denies any hx of DT. Was hospitalized for about 2 weeks in [place] for detox, has had AA meetings. States he successfully quit for a couple of months at a time before he relapsed. Pt denies being on any medications to help with his AUD; however per chart review, he's been prescribed Naltrexone and Vivitrol in the past. Pt additionally admits to using meth, cocaine, and percocet. He intermittently snorts and injects these drugs. Last used meth prior to coming to the ED. States he last used cocaine a few weeks ago. In the ED, he was pink slipped. He was ordered a banana bag and PO Ativan. Labs were significant for elevated platelet and WBC count, ethanol of 147, HFP with mildly elevated ALT. UDS was negative. Psychiatric Review of Systems: Depression: ENDORSES sleep disturbances, loss of interest, guilt, loss of energy, decreased concentration, psychomotor changes, and suicidality Ora: DENIES Panic: DENIES Anxiety: ENDORSES fatigue, restlessness, irritability, decreased concentration, tension, and sleep disturbances OCD: DENIES Psychosis: DENIES None PTSD: DENIES None. Personality disorder: No evidence of REVIEW OF SYSTEMS: GEN: Fatigue EYES: All negative NECK: All negative ENT: All negative RESP: All negative CARD: All negative GI: Nausea and Vomiting URO: All negative MALE: All negative MS: All negative H-L: All negative ENDO: All negative SKIN: All negative NEURO: Headache ALL/IMM: All negative PSYCH: Depression, Anxiety, and Self injury / suicidal ideas Allergies: No Known Allergies Past Medical History: Past Medical History: Diagnosis Date Alcohol abuse No past surgical history on file. Past Psychiatric History: Previous Diagnoses: Alcohol use disorder, Anxiety, Depression Hospitalizations: a couple of years ago was hospitalized for alcohol detox in [place] for about 10-14 days. No hospitalizations regarding SI Suicide Attempts: denies Outpatient Treatment: has tried AA, per dispense report has been prescribed Naltrexone, Vivitrol for AUD Past Psych Med Trials: -Bupropion 150mg - currently taking but has not had in a couple of days -Buspirone 10mg - unsure if taking -Clonodine 0.1 mg - not currently taking -Diazepam 5mg - not currently taking -folic acid and thiamine - currently taking -Hydroxyzine 50mg PRN - currently taking -Mirtazapine 30mg - not taking -Naltrexone 50 and Vivitrol - not currently taking -trazodone 100mg - currently taking -venlafaxine 150 - not currently taking Home Medications: No current facility-administered medications on file prior to encounter. Current Outpatient Medications on File Prior to Encounter Medication Sig Dispense Refill cloNIDine HCL (CATAPRES) 0.1 mg tablet Take 1 Tab by mouth once ergocalciferol (VITAMIN D2) 1,250 mcg (50,000 unit) capsule Take 1 Cap by mouth daily folic acid (FOLATE) 1 mg tablet Take 1 Tab by mouth daily hydrOXYzine HCL (ATARAX) 50 mg tablet hydrOXYzine pamoate (VISTARIL) 50 mg capsule 1 Cap baclofen (LIORESAL) 10 mg tablet diazePAM (VALIUM) 5 mg tablet ondansetron (ZOFRAN ODT) 4 mg RAPID DISSOLVING tablet Take 1 Tab by mouth every 6 hours as needed 12 Tab 0 dicyclomine (BENTYL) 20 mg tablet Take 1 Tab by mouth three times a day before meals and at [id number] Tab 0 cyclobenzaprine (FLEXERIL) 10 mg tablet fluticasone propionate (FLONASE) 50 mcg/actuation nasal spray venlafaxine (EFFEXOR) 25 mg tablet Take 9 Tab by mouth once Per patient he states he takes 225mg once daily. 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 Relationships: single, no family Children: none Service: denies Baptism Preference: Rastafarian Substance History: Drugs: Meth, Cocaine, Percocet: likes to snort and/or inject all of these Tobacco: light smoker , switched to vaping Alcohol: a couple of 1/5s bottles a day of Vodka and [place] Family History of Mental Illness: Paternal grandpa: committed suicide Unsure of mental illness of parents; both No siblings or children VITAL SIGNS: Temp: 98.1 F (36.7 C) (01/05/23 0405) Temp Av.1 F (36.7 C) Min: 98.1 F (36.7 C) Max: 98.1 F (36.7 C) BP: 121/70 (01/05/23 0800) Pulse: 83 (01/05/23 0800) Resp: 26 (01/05/23 0405) SpO2: 96 % (01/05/23 08) MENTAL STATUS EXAM General appearance: Adult male: Appears stated age, fair hygiene/grooming. Faireye contact. No acute distress Consciousness: Alert. Awake Orientation: Intact to person, place, time, and situation Mood: Don't feel good Affect: Dysmorphic, euthymic, euphoric, dysphoric; full range/constricted, labile/nonlabile. Mood congruent and appropriate to contact speech Attitude: Calm, slightly irritable towards the end due to multiple questions, but cooperative Speech: Normal rate, rhythm, volume and spontaneity. No dysarthria Language: Normal unaccented Palestinian, intact naming and repeating. No aphasia Fund of knowledge: Intelligence is judged as average. Fund of knowledge is judged as average Thought process: Logical, linear, goal directed. No tangentiality, circumstantiality, or flight of ideas Associations: Appropriate. Not loose Thought content: Appropriate to conversation. No delusions, magical ideations, paranoia, hyper-religiosity, preoccupations, or obsessions Perception/hallucinations: Denies AVH and delusions. Suicidal ideation/homicidal ideation: SI but denies HI Recent and remote memory: Intact Attention/concentration, appropriate, intact Insight/judgment: fair/judgement limited due to his severe alcohol use, but improving since he's seeking help Strength/tone/abnormal movements: Moves all extremities against gravity without abnormalities, no dystonia, dyskinesia, or tremors noted Gait/Station: Deferred LABS: Recent Results (from the past 24 hour(s)) BASIC METABOLIC PANEL Collection Time: 01/05/23 5:08 AM Result Value Ref Range Sodium 142 135 - 148 mEq/L Potassium 4.1 3.4 - 5.3 mEq/L Chloride 104 96 - 110 mEq/L Carbon Dioxide 26 19 - 32 mEq/L BUN 15 3 - 29 mg/dL Creatinine 1.0 0.5 - 1.4 mg/dL Glucose 101 (H) 70 - 99 mg/dL Calcium 9.1 8.5 - 10.5 mg/dL Anion Gap 12 5 - 15 BUN/CREAT Ratio 15 7 - 25 Estimated GFR 99 >=60 mL/min/1.73m*2 ETHANOL Collection Time: 01/05/23 5:08 AM Result Value Ref Range Ethanol, Serum/Plasma 147 (H) <10 mg/dL HEPATIC FUNCTION PANEL Collection Time: 01/05/23 5:08 AM Result Value Ref Range Bilirubin,Total <0.2 0.0 - 1.2 mg/dL Bilirubin, Direct <0.2 0.0 - 0.4 mg/dL Bilirubin, Indirect Total Protein 7.2 6.0 - 8.3 g/dL Albumin 4.1 3.5 - 5.2 g/dL AST 30 0 - 46 U/L ALT 80 (H) 0 - 60 U/L Alkaline Phosphatase 106 23 - 144 U/L COMPLETE BLOOD COUNT WITH DIFFERENTIAL Collection Time: 01/05/23 5:08 AM Result Value Ref Range WBC Count 13.0 (H) 3.5 - 10.9 K/uL RBC 5.17 4.14 - 5.80 M/uL Hemoglobin 14.8 13.0 - 17.7 g/dL Hematocrit 43.5 37.5 - 51.0 % MCV 84.1 80.0 - 100.0 fL MCH 28.6 26.0 - 34.0 pg MCHC 34.0 30.7 - 35.5 g/dL RDW 13.0 <=15.0 % Platelet Count 543 (H) 140 - 400 K/uL MPV 7.8 7.2 - 11.7 fL nRBC 0 <=0 /100 WBCs % Neutrophils 69.0 42.0 - 80.0 % % Lymphocytes 24.0 14.0 - 51.0 % % Monocytes 5.4 4.0 - 12.0 % % Eosinophils 0.5 0.0 - 5.0 % % Basophils 0.3 0.0 - 2.0 % % Immature Granulocyte 0.8 <1.0 % Absolute Neutrophils 9.0 (H) 1.8 - 7.5 K/uL Absolute Lymphocyte 3.1 0.9 - 4.1 K/uL Absolute Monocyte 0.7 0.2 - 1.0 K/uL Absolute Eosinophils 0.1 0.0 - 0.5 K/uL Absolute Basophil 0.0 0.0 - 0.3 K/uL Absolute Immature Granulocytes 0.1 0.0 - 0.1 K/uL Scan Result Electronically signed by: Melida Owen MD, 01/05/2023 8:53 AM Associated attestation - Michael Marquis MD - 01/05/2023 12:07 PM EST Images from the original note were not included. I have personally seen and examined this patient with resident this morning. I have fully participated in the care of this patient. I have reviewed and agree with all pertinent clinical information including history, physical exam, labs, radiographic studies, and the plan. I have also reviewed and agree with the medications, allergies, and past medical history sections for this patient unless otherwise noted below. Consulting Physician: NADINE Wallace Clarification to HPI: -Severity is severe. - 1/5 refers to a fifth sized bottle of alcohol Addendum to Psychiatric Review of Systems: Patient endorsed depression and anxiety symptoms as below. Unable to tolerate full ROS due to discomfort. VITAL SIGNS: Temp: 98.3 F (36.8 C) (01/05/23 1141) Temp Av.2 F (36.8 C) Min: 98.1 F (36.7 C) Max: 98.3 F (36.8 C) BP: 125/65 (01/05/23 1141) Pulse: 86 (01/05/23 1141) Resp: 20 (01/05/23 114) SpO2: 98 % (01/05/23 1127) MENTAL STATUS EXAM (later in the morning) Mckinley Roman is a 37 year old male General Appearance: Appears stated age, fair grooming, laying on left side in position on ED cot, limited eye contact due to physical discomfort Consciousness: Alert Orientation: intact to person, place, time, and situation Mood: not good Affect: dysphoric, constricted, not labile Attitude: cooperative, polite Speech: Normal rate, rhythm, & spontaneity. Soft volume Language: Normal unaccented Palestinian; intact naming and repeating Fund of Knowledge: Intelligence is judged as average. Fund of knowledge is judged as average. Thought Process: linear, logical, coherent, goal-oriented Associations: intact Thought Content: Focused on alcohol use and withdrawal history. No paranoia or delusions Perception/Hallucinations: Denies AVH. No RTIS Suicidal Ideation/Homicidal Ideation: Endorses intermittent suicidal ideation. No plan, intent, or desire to . Denies HI. Recent and Remote Memory: intact Attention/Concentration: appropriate, intact Insight/Judgement: fair in regards to alcohol use and associated issues (including SI)/poor to limited Strength/Tone/Abnormal Movements: Politely refused formal assessment. No tremor noted. No nystagmus Gait/Station: Deferred for patient comfort. 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 Patient meets criteria for Use Disorders listed above based on the following symptoms: Problematic pattern of use with clinical impairment/distress within the past 12 months with: -Taken in larger amounts or for longer than intended (ALL) -Desire or unsuccessful efforts to cut down (ALL) -Great deal of time spent in activities to obtain/use/recover (Alcohol) -Cravings (Alcohol) -Recurrent use results in failure to fulfill major role obligations at work/school/home (Alcohol) -Continued use despite persistent or recurrent social/interpersonal problems due to use (ALL) -Important social/occupational/recreational activities given up/reduced due to use (Alcohol) -Recurrent use in physically hazardous situation (ALL) -Continued use despite knowledge of having a persistent/recurrent physical or psychologic problem likely caused/exacerbated by use (Alcohol) -Tolerance: Need for more or diminished effect of same amount (Alcohol) -Withdrawal (Alcohol) Clarification to Plan: -Psychiatric evaluation is ongoing. Not currently medically appropriate for an inpatient psychiatric unit. -Defer withdrawal management to primary team, though concerned patient may require higher doses of Librium based on reported withdrawal history. Recommend Librium 50 mg PO tid. Recommend low threshold for consulting Critical Care if CIWAs escalate and don't respond to benzodiazepine management. -Discontinue Wellbutrin XL due to lowering of seizure threshold in setting of current alcohol withdrawal. -Discontinue Buspar as dose is subtherapeutic and patient denies benefit. DATA REVIEWED (pertinent to clinical decision making) Reviewed lab tests as below and in Epic Reviewed documentation from ED and hospitalist teams as well as past ED encounters Reviewed radiology test results [official reads reviewed from recent ED visits] Reviewed EKG [01/03/23 QTc 417] Reviewed PDMP-- Electronically signed by: Michael Marquis MD, 01/05/2023 11:52 AM [employer] Phone: [phone] Consult note* Melida Mishra MD - 01/05/2023 8:53 AM EST [facility] Psychiatric Consultation Liaison Team 01/05/2023 Patient Name: Mckinley Roman : 1985 Reason for Consult: suicidal ideation and wanting to stop drinking alcohol Consulting Physician: Tasha Brown PA-C Assessment: Mckinley Roman is a 37 year old male with suicidal ideation and wanting to quit drinking alcohol. Has several risk factors for suicide; is currently having suicidal ideation but no active plans. Pt with unspecified depression given he's actively withdrawing, will reassess once he is outside of thewithdrawal window. He currently does not meet inpatient psych criteria. Pt wanting to go through alcohol detox and seek help for his severe alcohol use disorder. Has a high risk of seizure withdrawals given prior hx and severe alcohol use. Currently hemodynamically stable, but should be monitored closely. EKG: QTc: 417 ms on 01/03/2023 PDMP: Reviewed Diagnoses: Suicide Ideations Unspecified Depression Severe Alcohol Use Disorder Moderate Methamphetamine Use Disorder Moderate Cocaine Use Disorder Moderate Opoid Use Disorder Plan Patient DOES NOT meet criteria for inpatient psychiatric admission. Safety: 1:1 sitter and [place] Slip, seizure precautions Continue CIWAs Continue Thiamine 100mg BID with close monitoring for Wernicke's, can increase dose if any signs/symptoms Medications: Discontinue Wellbutrin in the setting of acute alcohol withdrawal given risk of seizures Discontinue additional psych medications at this time in the setting of acute alcohol withdrawal, can resume after pt is more stabilized in 2-3 days Recommend increasing scheduled Librium to 50mg TID for 2-3 days given severe alcohol use in addition to history of withdrawal seizures Psychiatric Consult Team will continue to follow this patient. History of Present Illness/ Chief Complaint: suicidal ideation Location: Psychiatric Severity: moderate Timing: on/off for years Duration: a couple of days Context: hx of alcohol use disorder, suicidal thoughts Modifying Factors: Associated Signs and Symptoms: Mckinley Roman is a 37 year old male with hx of AUD, substance use disorder, depression, and anxiety who presented to the ED wanting to stop drinking alcohol in addition to suidical ideation. Pt hashx of depression, is currently taking Wellbutrin but has not taken it in the past couple days. Reports hx of self cutting, particularly in his wrists and arms. However, denies any hx of suicide attempts or hospitalizations. States he's having suicidal thoughts in the last couple of days but has no active plans. He has been having intermittent thoughts for years now. Per chart review, pt has had multiple ED visits for SI and alcohol use. Last ED visist 01/03/2023, was given resources to self refer [facility] since pt had intent to quit, but he did not go. Pt wanting to seek help to stop drinking now. States that he feels sick of it and knows its not good . Reports he's been intermittently drinking since he was 20 years old. The last couple of years, he has been drinking almost every day, drinks a couple of 1/5 bottles of Vodka or Whiskey. Last drink is reported to be a couple of hours before he came in to the ED. Has hx of seizures from alcohol withdrawal, denies any hx of DT. Was hospitalized for about 2 weeks in [place] for detox, has had AA meetings. States he successfully quit for a couple of months at a time before he relapsed. Pt denies being on any medications to help with his AUD; however per chart review, he's been prescribed Naltrexone and Vivitrol in the past. Pt additionally admits to using meth, cocaine, and percocet. He intermittently snorts and injects these drugs. Last used meth prior to coming to the ED. States he last used cocaine a few weeks ago. In the ED, he was pink slipped. He was ordered a banana bag and PO Ativan. Labs were significant for elevated platelet and WBC count, ethanol of 147, HFP with mildly elevated ALT. UDS was negative. Psychiatric Review of Systems: Depression: ENDORSES sleep disturbances, loss of interest, guilt, loss of energy, decreased concentration, psychomotor changes, and suicidality Ora: DENIES Panic: DENIES Anxiety: ENDORSES fatigue, restlessness, irritability, decreased concentration, tension, and sleep disturbances OCD: DENIES Psychosis: DENIES None PTSD: DENIES None. Personality disorder: No evidence of REVIEW OF SYSTEMS: GEN: Fatigue EYES: All negative NECK: All negative ENT: All negative RESP: All negative CARD: All negative GI: Nausea and Vomiting URO: All negative MALE: All negative MS: All negative H-L: All negative ENDO: All negative SKIN: All negative NEURO: Headache ALL/IMM: All negative PSYCH: Depression, Anxiety, and Self injury / suicidal ideas Allergies: No Known Allergies Past Medical History: Past Medical History: Diagnosis Date Alcohol abuse No past surgical history on file. Past Psychiatric History: Previous Diagnoses: Alcohol use disorder, Anxiety, Depression Hospitalizations: a couple of years ago was hospitalized for alcohol detox in [place] for about 10-14 days. No hospitalizations regarding SI Suicide Attempts: denies Outpatient Treatment: has tried AA, per dispense report has been prescribed Naltrexone, Vivitrol for AUD Past Psych Med Trials: -Bupropion 150mg - currently taking but has not had in a couple of days -Buspirone 10mg - unsure if taking -Clonodine 0.1 mg - not currently taking -Diazepam 5mg - not currently taking -folic acid and thiamine - currently taking -Hydroxyzine 50mg PRN - currently taking -Mirtazapine 30mg - not taking -Naltrexone 50 and Vivitrol - not currently taking -trazodone 100mg - currently taking -venlafaxine 150 - not currently taking Home Medications: No current facility-administered medications on file prior to encounter. Current Outpatient Medications on File Prior to Encounter Medication Sig Dispense Refill cloNIDine HCL (CATAPRES) 0.1 mg tablet Take 1 Tab by mouth once ergocalciferol (VITAMIN D2) 1,250 mcg (50,000 unit) capsule Take 1 Cap by mouth daily folic acid (FOLATE) 1 mg tablet Take 1 Tab by mouth daily hydrOXYzine HCL (ATARAX) 50 mg tablet hydrOXYzine pamoate (VISTARIL) 50 mg capsule 1 Cap baclofen (LIORESAL) 10 mg tablet diazePAM (VALIUM) 5 mg tablet ondansetron (ZOFRAN ODT) 4 mg RAPID DISSOLVING tablet Take 1 Tab by mouth every 6 hours as needed 12 Tab 0 dicyclomine (BENTYL) 20 mg tablet Take 1 Tab by mouth three times a day before meals and at [id number] Tab 0 cyclobenzaprine (FLEXERIL) 10 mg tablet fluticasone propionate (FLONASE) 50 mcg/actuation nasal spray venlafaxine (EFFEXOR) 25 mg tablet Take 9 Tab by mouth once Per patient he states he takes 225mg once daily. 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 Relationships: single, no family Children: none Service: denies Baptism Preference: Rastafarian Substance History: Drugs: Meth, Cocaine, Percocet: likes to snort and/or inject all of these Tobacco: light smoker , switched to vaping Alcohol: a couple of 1/5s bottles a day of Vodka and [place] Family History of Mental Illness: Paternal grandpa: committed suicide Unsure of mental illness of parents; both No siblings or children VITAL SIGNS: Temp: 98.1 F (36.7 C) (01/05/23404) Temp Av.1 F (36.7 C) Min: 98.1 F (36.7 C) Max: 98.1 F (36.7 C) BP: 121/70 (01/05/23 0800) Pulse: 83 (01/05/23 0800) Resp: 26 (01/05/23 040) SpO2: 96 % (01/05/23 08) MENTAL STATUS EXAM General appearance: Adult male: Appears stated age, fair hygiene/grooming. Faireye contact. No acute distress Consciousness: Alert. Awake Orientation: Intact to person, place, time, and situation Mood: Don't feel good Affect: Dysmorphic, euthymic, euphoric, dysphoric; full range/constricted, labile/nonlabile. Mood congruent and appropriate to contact speech Attitude: Calm, slightly irritable towards the end due to multiple questions, but cooperative Speech: Normal rate, rhythm, volume and spontaneity. No dysarthria Language: Normal unaccented Palestinian, intact naming and repeating. No aphasia Fund of knowledge: Intelligence is judged as average. Fund of knowledge is judged as average Thought process: Logical, linear, goal directed. No tangentiality, circumstantiality, or flight of ideas Associations: Appropriate. Not loose Thought content: Appropriate to conversation. No delusions, magical ideations, paranoia, hyper-religiosity, preoccupations, or obsessions Perception/hallucinations: Denies AVH and delusions. Suicidal ideation/homicidal ideation: SI but denies HI Recent and remote memory: Intact Attention/concentration, appropriate, intact Insight/judgment: fair/judgement limited due to his severe alcohol use, but improving since he's seeking help Strength/tone/abnormal movements: Moves all extremities against gravity without abnormalities, no dystonia, dyskinesia, or tremors noted Gait/Station: Deferred LABS: Recent Results (from the past 24 hour(s)) BASIC METABOLIC PANEL Collection Time: 01/05/23 5:08 AM Result Value Ref Range Sodium 142 135 - 148 mEq/L Potassium 4.1 3.4 - 5.3 mEq/L Chloride 104 96 - 110 mEq/L Carbon Dioxide 26 19 - 32 mEq/L BUN 15 3 - 29 mg/dL Creatinine 1.0 0.5 - 1.4 mg/dL Glucose 101 (H) 70 - 99 mg/dL Calcium 9.1 8.5 - 10.5 mg/dL Anion Gap 12 5 - 15 BUN/CREAT Ratio 15 7 - 25 Estimated GFR 99 >=60 mL/min/1.73m*2 ETHANOL Collection Time: 01/05/23 5:08 AM Result Value Ref Range Ethanol, Serum/Plasma 147 (H) <10 mg/dL HEPATIC FUNCTION PANEL Collection Time: 01/05/23 5:08 AM Result Value Ref Range Bilirubin,Total <0.2 0.0 - 1.2 mg/dL Bilirubin, Direct <0.2 0.0 - 0.4 mg/dL Bilirubin, Indirect Total Protein 7.2 6.0 - 8.3 g/dL Albumin 4.1 3.5 - 5.2 g/dL AST 30 0 - 46 U/L ALT 80 (H) 0 - 60 U/L Alkaline Phosphatase 106 23 - 144 U/L COMPLETE BLOOD COUNT WITH DIFFERENTIAL Collection Time: 01/05/23 5:08 AM Result Value Ref Range WBC Count 13.0 (H) 3.5 - 10.9 K/uL RBC 5.17 4.14 - 5.80 M/uL Hemoglobin 14.8 13.0 - 17.7 g/dL Hematocrit 43.5 37.5 - 51.0 % MCV 84.1 80.0 - 100.0 fL MCH 28.6 26.0 - 34.0 pg MCHC 34.0 30.7 - 35.5 g/dL RDW 13.0 <=15.0 % Platelet Count 543 (H) 140 - 400 K/uL MPV 7.8 7.2 - 11.7 fL nRBC 0 <=0 /100 WBCs % Neutrophils 69.0 42.0 - 80.0 % % Lymphocytes 24.0 14.0 - 51.0 % % Monocytes 5.4 4.0 - 12.0 % % Eosinophils 0.5 0.0 - 5.0 % % Basophils 0.3 0.0 - 2.0 % % Immature Granulocyte 0.8 <1.0 % Absolute Neutrophils 9.0 (H) 1.8 - 7.5 K/uL Absolute Lymphocyte 3.1 0.9 - 4.1 K/uL Absolute Monocyte 0.7 0.2 - 1.0 K/uL Absolute Eosinophils 0.1 0.0 - 0.5 K/uL Absolute Basophil 0.0 0.0 - 0.3 K/uL Absolute Immature Granulocytes 0.1 0.0 - 0.1 K/uL Scan Result Electronically signed by: Melida Owen MD, 01/05/2023 8:53 AM Associated attestation - Michael Marquis MD - 01/05/2023 12:07 PM EST Images from the original note were not included. I have personally seen and examined this patient with resident this morning. I have fully participated in the care of this patient. I have reviewed and agree with all pertinent clinical information including history, physical exam, labs, radiographic studies, and the plan. I have also reviewed and agree with the medications, allergies, and past medical history sections for this patient unless otherwise noted below. Consulting Physician: NADINE Wallace Clarification to HPI: -Severity is severe. - 1/5 refers to a fifth sized bottle of alcohol Addendum to Psychiatric Review of Systems: Patient endorsed depression and anxiety symptoms as below. Unable to tolerate full ROS due to discomfort. VITAL SIGNS: Temp: 98.3 F (36.8 C) (01/05/23 1141) Temp Av.2 F (36.8 C) Min: 98.1 F (36.7 C) Max: 98.3 F (36.8 C) BP: 125/65 (01/05/23 1141) Pulse: 86 (01/05/23 1141) Resp: 20 (01/05/23 1141) SpO2: 98 % (01/05/23 1127) MENTAL STATUS EXAM (later in the morning) Mckinley Roman is a 37 year old male General Appearance: Appears stated age, fair grooming, laying on left side in position on ED cot, limited eye contact due to physical discomfort Consciousness: Alert Orientation: intact to person, place, time, and situation Mood: not good Affect: dysphoric, constricted, not labile Attitude: cooperative, polite Speech: Normal rate, rhythm, & spontaneity. Soft volume Language: Normal unaccented Palestinian; intact naming and repeating Fund of Knowledge: Intelligence is judged as average. Fund of knowledge is judged as average. Thought Process: linear, logical, coherent, goal-oriented Associations: intact Thought Content: Focused on alcohol use and withdrawal history. No paranoia or delusions Perception/Hallucinations: Denies AVH. No RTIS Suicidal Ideation/Homicidal Ideation: Endorses intermittent suicidal ideation. No plan, intent, or desire to . Denies HI. Recent and Remote Memory: intact Attention/Concentration: appropriate, intact Insight/Judgement: fair in regards to alcohol use and associated issues (including SI)/poor to limited Strength/Tone/Abnormal Movements: Politely refused formal assessment. No tremor noted. No nystagmus Gait/Station: Deferred for patient comfort. 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 Patient meets criteria for Use Disorders listed above based on the following symptoms: Problematic pattern of use with clinical impairment/distress within the past 12 months with: -Taken in larger amounts or for longer than intended (ALL) -Desire or unsuccessful efforts to cut down (ALL) -Great deal of time spent in activities to obtain/use/recover (Alcohol) -Cravings (Alcohol) -Recurrent use results in failure to fulfill major role obligations at work/school/home (Alcohol) -Continued use despite persistent or recurrent social/interpersonal problems due to use (ALL) -Important social/occupational/recreational activities given up/reduced due to use (Alcohol) -Recurrent use in physically hazardous situation (ALL) -Continued use despite knowledge of having a persistent/recurrent physical or psychologic problem likely caused/exacerbated by use (Alcohol) -Tolerance: Need for more or diminished effect of same amount (Alcohol) -Withdrawal (Alcohol) Clarification to Plan: -Psychiatric evaluation is ongoing. Not currently medically appropriate for an inpatient psychiatric unit. -Defer withdrawal management to primary team, though concerned patient may require higher doses of Librium based on reported withdrawal history. Recommend Librium 50 mg PO tid. Recommend low threshold for consulting Critical Care if CIWAs escalate and don't respond to benzodiazepine management. -Discontinue Wellbutrin XL due to lowering of seizure threshold in setting of current alcohol withdrawal. -Discontinue Buspar as dose is subtherapeutic and patient denies benefit. DATA REVIEWED (pertinent to clinical decision making) Reviewed lab tests as below and in Epic Reviewed documentation from ED and hospitalist teams as well as past ED encounters Reviewed radiology test results [official reads reviewed from recent ED visits] Reviewed EKG [01/03/23 QTc 417] Reviewed PDMP-- Electronically signed by: Michael Marquis MD, 01/05/2023 11:52 AM documented in this encounterGalion Community [id number] History and physical note* Kalin Calderon MD - 01/05/2023 8:09 AM EST Images from the original note were not included. [facility] History & Physical Patient Identifier/Hospitalist Patient Name: Mckinley Roman : 1985 Room / Bed : GRN18/GRN18 Facitily : [facility] Date of Service: 01/05/2023 CSN: [id number] Admit Date: 01/05/2023 4:11 AM Attending Physician: Kalin Calderon MD Primary Care Physician: Angelito Lamb I saw and examined the patient at 8:19 AM on 01/05/2023 Uriah Wallace APRN, Available via secure chat. Disposition Disposition: Home versus IP Psych versus Sober Living in 2-3 days, pending clinical improvement Assessment /Plan Alcohol Intoxication/Withdrawal History of Alcohol Withdrawal Seizures - Last drink sometime after midnight , ethanol level 147 - Patient will be admitted to telemetry - Bedside Sitter for suicidal ideations - PINK SLIP initiated in the ED - CIWA protocol will be initiated, with IV lorazepam/diazepam for CIW >/= 12 - Banana bag was provided in ED - Will initiate thiamine, folic acid supplement - Librium 50mg now, then 25mg q 6 hours for 1 day then 25mg bid for 1 day, then 25mg once daily for1 day - Seizure precautions will be observed, history of seizures with withdrawal in the past - Consulted Psychiatry for suicidal ideations - Labs will be checked in a.m. Leukocytosis - Afebrile, is likely reactive - Recheck on a.m. labs Current, Everyday Nicotine E-Cigarette/Vape Use - Nicotine replacement therapy ordered - Encouraged cessation Cocaine & Methamphetamine Use - Encouraged cessation - Chemical Dependency referral was made in the ED GERD, without esophagitis - Continue home PPI Mood Disorder - Continue home medications, confirmed per dispense report: bupropion, buspirone, clonidine, hydroxyzine - Continue home trazodone and melatonin HS for sleep Seasonal Allergies - Continue home loratadine and flonase DVT Prophylaxis: subcutaneous enoxaparin Code Status: Full Code Attending note Patient was seen, examined and discussed with mid-level provider, agree with her assessment and plan with the following addendum 37-year-old male presented to emergency department because of alcoholism, alcohol withdrawal as well suicidal ideation Patient is alert and oriented Not in any distress HEENT normocephalic atraumatic Respiration clear to auscultation CVS regularly regular rhythm Abdomen is soft nontender [employer] nonfocal Extremities no pedal edema cyanosis Assessment: Alcoholism/alcohol withdrawal History of alcohol withdrawal seizures Suicidal ideation Leukocytosis Current everyday nicotine use, e-cigarette/vape Cocaine and methamphetamine use Gastroesophageal flux disease Mood disorder Seasonal allergies Plan Labs reviewed CIWA protocol Thiamine folic acid multivitamin Agree with Librium Seizure precaution Psych consultation Chemical dependency referral Subjective Chief Complaint: Chief Complaint Patient presents with Suicidal Ideations Intoxication History of Present Illness: History obtained from patient and medical record Records from Care everywhere has been reviewed including progress notes, office note, labs and investigation prior and summarized in the body of HPI History of Present Illness: Mckinley Roman is an 37 year old male with a past medical history of alcohol and illicit drug use. Presents to the ED 01/05/2023 and requesting alcohol detox and suicidal ideations. Patient tells methat his last drink was a little after midnight. Patient endorses heavy, binge drinking for the past 5 days. He tells me he was drinking about 3 bottles of vodka every day. This is about 2 L of hard liquor daily. Patient states that he wants to stop drinking. Patient states he has tried in the pastand has not been successful. Patient states that he has had seizures with previous alcohol withdrawal. Additionally, patient reports suicidal ideations for the last few days. Denies hallucinations. He tells me that he would plan to kill himself by cutting. Additionally endorses cocaine and methamphetamine use within the last 24 hours. Patient states that he is anxious, agitated, nauseous, and hashad a headache. Denies any fever or recent contact with sick individuals. Patient was pink slipped in the emergency department, psychiatric was consulted for additional and ongoing recommendations. Will initiate CIWA protocol, bedside sitter, suicide precautions, seizure precautions, Librium taper,lorazepam/diazepam as needed for CIWA greater than 12, and monitor for symptom improvement. Review of System Review of Systems Constitutional: Positive for chills. Negative for fever and weight loss. HENT: Negative for hearing loss, nosebleeds and sore throat. Eyes: Positive for photophobia. Negative for blurred vision. Respiratory: Negative for cough, shortness of breath and wheezing. Cardiovascular: Negative for chest pain, palpitations and leg swelling. Gastrointestinal: Positive for diarrhea, nausea and vomiting. Negative for blood in stool, constipation and heartburn. Genitourinary: Negative for dysuria, frequency, hematuria and urgency. Musculoskeletal: Positive for myalgias. Negative for back pain, falls, joint pain and neck pain. Skin: Negative for itching and rash. Neurological: Positive for dizziness, tremors, loss of consciousness and headaches. Negative for seizures (history of alcohol withdrawal seizures in the past). Endo/Heme/Allergies: Does not bruise/bleed easily. Psychiatric/Behavioral: Positive for depression and suicidal ideas. Negative for hallucinations. Past Medical History Past Medical History: Diagnosis Date Alcohol abuse Surgical History History reviewed. No pertinent surgical history. Social History Social History Socioeconomic History Marital status: Single Spouse name: Not on file Number of children: Not on file Years of education: Not on file Highest education level: Not on file Occupational History Not on file Tobacco Use Smoking status: Never Smokeless tobacco: Never Vaping Use Vaping Use: Every day Substance and Sexual Activity Alcohol use: Yes Alcohol/week: 40.0 standard drinks of alcohol Types: 40 Shots of liquor per week Comment: pint of whiskey daily, states today he drank multiple [place] rums Drug use: Yes Types: Cocaine, Methamphetamine Comment: last used months ago Sexual activity: Not on file Other Topics Concern Not on file Social History Narrative Not on file Social Determinants of Health Financial Resource Strain: Not on file Food Insecurity: Not on file Transportation Needs: Not on file Physical Activity: Not on file Stress: Not on file Social Connections: Not on file Intimate Partner Violence: Not on file Housing Stability: Not on file Family History History reviewed. No pertinent family history. Allergies No Known Allergies Home Medications Current Facility-Administered Medications Medication Dose Route Frequency Provider Last Rate Last Admin chlordiazePOXIDE (LIBRIUM) capsule 50 mg 50 mg Oral STAT Uriah Wallace APRN chlordiazePOXIDE (LIBRIUM) capsule 25 mg 25 mg Oral Q6H Uriah Wallace APRN Followed by [START ON 01/06/2023] chlordiazePOXIDE (LIBRIUM) capsule 25 mg 25 mg Oral BID Uriah Wallace APRN [START ON 01/07/2023] chlordiazePOXIDE (LIBRIUM) capsule 25 mg 25 mg Oral Daily Uriah Wallace APRN buPROPion (WELLBUTRIN XL) XL-tablet 150 mg 150 mg Oral Daily rUiah Wallace APRN cloNIDine HCL (CATAPRES) tablet 0.1 mg 0.1 mg Oral Once Uriah Wallace APRN fluticasone propionate (FLONASE) nasal spray 1 [place] 1 [place] Each Nostril Daily Uriah Wallace APRN hydrOXYzine HCL (ATARAX) tablet 50 mg 50 mg Oral Nightly PRN Uriah Wallace APRN cetirizine (zyrTEC) tablet 10 mg 10 mg Oral Daily Uriah Wallace APRN Melatonin tablet 5 mg 5 mg Oral HS Uriah Wallace APRN pantoprazole (PROTONIX) enteric-coated tablet 40 mg 40 mg Oral Daily Uriah Wallace APRN traZODone (DESYREL) tablet 50 mg 50 mg Oral HS Uriah Wallace APRN busPIRone (BUSPAR) tablet 10 mg 10 mg Oral BID Uriah Wallace APRN Current Outpatient Medications Medication Sig Dispense Refill buPROPion (WELLBUTRIN XL) 150 mg XL-tablet 24 Hr Take 1 Tab by mouth daily loratadine (CLARITIN) 10 mg tablet Take 1 Tab by mouth daily Melatonin (MELATONIN) 5 mg Tablet tablet Take 1 Tab by mouth at bedtime THEREMS-M 9 mg iron-400 mcg tablet Take 1 Tab by mouth daily TAB-A-RENAE MULTIVITAMIN W-IRON 15 mg iron- 400 mcg Tablet Take 1 Tab by mouth daily omeprazole (PRILOSEC) [address]-capsule Take 1 Cap by mouth daily thiamine (VITAMIN B1) 100 mg tablet Take 1 Tab by mouth daily traZODone (DESYREL) 50 mg tablet Take 1 Tab by mouth at bedtime B COMPLEX 1, WITH FOLIC ACID, 0.4 mg Tablet Take 1 Tab by mouth daily at 6pm busPIRone (BUSPAR) 10 mg tablet Take 1 Tab by mouth two times a day cloNIDine HCL (CATAPRES) 0.1 mg tablet Take 1 Tab by mouth once ergocalciferol (VITAMIN D2) 1,250 mcg (50,000 unit) capsule Take 1 Cap by mouth daily folic acid (FOLATE) 1 mg tablet Take 1 Tab by mouth daily hydrOXYzine pamoate (VISTARIL) 50 mg capsule Take 1 Cap by mouth at bedtime as needed fluticasone propionate (FLONASE) 50 mcg/actuation nasal spray hydrOXYzine HCL (ATARAX) 50 mg tablet baclofen (LIORESAL) 10 mg tablet diazePAM (VALIUM) 5 mg tablet ondansetron (ZOFRAN ODT) 4 mg RAPID DISSOLVING tablet Take 1 Tab by mouth every 6 hours as needed 12 Tab 0 dicyclomine (BENTYL) 20 mg tablet Take 1 Tab by mouth three times a day before meals and at [id number] Tab 0 cyclobenzaprine (FLEXERIL) 10 mg tablet venlafaxine (EFFEXOR) 25 mg tablet Take 9 Tab by mouth once Per patient he states he takes 225mg once daily. Admission Date: Medication Sig Dispense Refill buPROPion (WELLBUTRIN XL) 150 mg XL-tablet 24 Hr Take 1 Tab by mouth daily loratadine (CLARITIN) 10 mg tablet Take 1 Tab by mouth daily Melatonin (MELATONIN) 5 mg Tablet tablet Take 1 Tab by mouth at bedtime THEREMS-M 9 mg iron-400 mcg tablet Take 1 Tab by mouth daily TAB-A-RENAE MULTIVITAMIN W-IRON 15 mg iron- 400 mcg Tablet Take 1 Tab by mouth daily omeprazole (PRILOSEC) [address]-capsule Take 1 Cap by mouth daily thiamine (VITAMIN B1) 100 mg tablet Take 1 Tab by mouth daily traZODone (DESYREL) 50 mg tablet Take 1 Tab by mouth at bedtime B COMPLEX 1, WITH FOLIC ACID, 0.4 mg Tablet Take 1 Tab by mouth daily at 6pm busPIRone (BUSPAR) 10 mg tablet Take 1 Tab by mouth two times a day cloNIDine HCL (CATAPRES) 0.1 mg tablet Take 1 Tab by mouth once ergocalciferol (VITAMIN D2) 1,250 mcg (50,000 unit) capsule Take 1 Cap by mouth daily folic acid (FOLATE) 1 mg tablet Take 1 Tab by mouth daily hydrOXYzine pamoate (VISTARIL) 50 mg capsule Take 1 Cap by mouth at bedtime as needed fluticasone propionate (FLONASE) 50 mcg/actuation nasal spray Objective Vital Signs: Temp: 98.1 F (36.7 C) (01/05/23404) Temp Min: 98.1 F (36.7 C) Min taken time: 01/05/23404 Max: 98.1 F (36.7 C) Max taken time: 01/05/23404 BP: 121/70 (01/05/23 0800) Pulse: 83 (01/05/23 0800) Resp: 26 (01/05/23404) SpO2: 96 % (01/05/23 0800) Physical Examination General: agitated, pale, and moving around frequently in bed, alert and oriented to questioning, diaphoretic HEENT: Oropharynx pink, moist, and without lesion or exudate CV: regular rate and rhythm and no S3 or S4 PUL: Bilateral Diminished breath sounds throughout and respiratory effort normal ABD: Abdomen soft, non-tender. BS normal. No masses or organomegaly Neuro: appears anxious, agitated, slight tremors noted Extremity: supple, non-tender, without cyanosis or edema Skin: Skin color, texture, turgor normal. No rashes or lesions. Diagnostic Data Recent Results (from the past 24 hour(s)) BASIC METABOLIC PANEL Collection Time: 01/05/23 5:08 AM Result Value Ref Range Sodium 142 135 - 148 mEq/L Potassium 4.1 3.4 - 5.3 mEq/L Chloride 104 96 - 110 mEq/L Carbon Dioxide 26 19 - 32 mEq/L BUN 15 3 - 29 mg/dL Creatinine 1.0 0.5 - 1.4 mg/dL Glucose 101 (H) 70 - 99 mg/dL Calcium 9.1 8.5 - 10.5 mg/dL Anion Gap 12 5 - 15 BUN/CREAT Ratio 15 7 - 25 Estimated GFR 99 >=60 mL/min/1.73m*2 ETHANOL Collection Time: 01/05/23 5:08 AM Result Value Ref Range Ethanol, Serum/Plasma 147 (H) <10 mg/dL HEPATIC FUNCTION PANEL Collection Time: 01/05/23 5:08 AM Result Value Ref Range Bilirubin,Total <0.2 0.0 - 1.2 mg/dL Bilirubin, Direct <0.2 0.0 - 0.4 mg/dL Bilirubin, Indirect Total Protein 7.2 6.0 - 8.3 g/dL Albumin 4.1 3.5 - 5.2 g/dL AST 30 0 - 46 U/L ALT 80 (H) 0 - 60 U/L Alkaline Phosphatase 106 23 - 144 U/L COMPLETE BLOOD COUNT WITH DIFFERENTIAL Collection Time: 01/05/23 5:08 AM Result Value Ref Range WBC Count 13.0 (H) 3.5 - 10.9 K/uL RBC 5.17 4.14 - 5.80 M/uL Hemoglobin 14.8 13.0 - 17.7 g/dL Hematocrit 43.5 37.5 - 51.0 % MCV 84.1 80.0 - 100.0 fL MCH 28.6 26.0 - 34.0 pg MCHC 34.0 30.7 - 35.5 g/dL RDW 13.0 <=15.0 % Platelet Count 543 (H) 140 - 400 K/uL MPV 7.8 7.2 - 11.7 fL nRBC 0 <=0 /100 WBCs % Neutrophils 69.0 42.0 - 80.0 % % Lymphocytes 24.0 14.0 - 51.0 % % Monocytes 5.4 4.0 - 12.0 % % Eosinophils 0.5 0.0 - 5.0 % % Basophils 0.3 0.0 - 2.0 % % Immature Granulocyte 0.8 <1.0 % Absolute Neutrophils 9.0 (H) 1.8 - 7.5 K/uL Absolute Lymphocyte 3.1 0.9 - 4.1 K/uL Absolute Monocyte 0.7 0.2 - 1.0 K/uL Absolute Eosinophils 0.1 0.0 - 0.5 K/uL Absolute Basophil 0.0 0.0 - 0.3 K/uL Absolute Immature Granulocytes 0.1 0.0 - 0.1 K/uL Scan Result Imaging XR CHEST PA OR AP 1 VIEW (PORTABLE) Result Date: 01/04/2023 EXAM: XR Chest, 1 View CLINICAL INDICATION: 37 years Male ; MENTAL HEALTH PROBLEM, ABDOMINAL PAIN, BACK PAIN, CHEST PAIN, TECHNIQUE: Frontal view of the chest. COMPARISON: No relevant prior studies available. FINDINGS: LUNGS AND PLEURAL SPACES: Unremarkable. No consolidation. No pneumothorax. HEART: Unremarkable. No cardiomegaly. MEDIASTINUM: Unremarkable. Normal mediastinal contour. BONES/JOINTS: Unremarkable. No acute fracture. IMPRESSION: Normal chest x-ray. Dictated by: Umang Palma MD Workstation ID:[id number] EKG I have personally reviewed the 12 lead EKG and shows NSR @sinus rhythm with QTc 417. Signature Electronically signed by: Uriah Wallace APRN, 01/05/2023 9:24 AM [facility] Phone: [phone] History and physical note* Kalin Calderon MD - 01/05/2023 8:09 AM EST Images from the original note were not included. [facility] History & Physical Patient Identifier/Hospitalist Patient Name: Mckinley Roman : 1985 Room / Bed : GRN18/GRN18 Facitily : [facility] Date of Service: 01/05/2023 CSN: [id number] Admit Date: 01/05/2023 4:11 AM Attending Physician: Kalin Calderon MD Primary Care Physician: Angelito Lamb I saw and examined the patient at 8:19 AM on 01/05/2023 Uriah Wallace APRN, Available via secure chat. Disposition Disposition: Home versus IP Psych versus Sober Living in 2-3 days, pending clinical improvement Assessment /Plan Alcohol Intoxication/Withdrawal History of Alcohol Withdrawal Seizures - Last drink sometime after midnight , ethanol level 147 - Patient will be admitted to telemetry - Bedside Sitter for suicidal ideations - PINK SLIP initiated in the ED - CIWA protocol will be initiated, with IV lorazepam/diazepam for CIW >/= 12 - Banana bag was provided in ED - Will initiate thiamine, folic acid supplement - Librium 50mg now, then 25mg q 6 hours for 1 day then 25mg bid for 1 day, then 25mg once daily for1 day - Seizure precautions will be observed, history of seizures with withdrawal in the past - Consulted Psychiatry for suicidal ideations - Labs will be checked in a.m. Leukocytosis - Afebrile, is likely reactive - Recheck on a.m. labs Current, Everyday Nicotine E-Cigarette/Vape Use - Nicotine replacement therapy ordered - Encouraged cessation Cocaine & Methamphetamine Use - Encouraged cessation - Chemical Dependency referral was made in the ED GERD, without esophagitis - Continue home PPI Mood Disorder - Continue home medications, confirmed per dispense report: bupropion, buspirone, clonidine, hydroxyzine - Continue home trazodone and melatonin HS for sleep Seasonal Allergies - Continue home loratadine and flonase DVT Prophylaxis: subcutaneous enoxaparin Code Status: Full Code Attending note Patient was seen, examined and discussed with mid-level provider, agree with her assessment and plan with the following addendum 37-year-old male presented to emergency department because of alcoholism, alcohol withdrawal as well suicidal ideation Patient is alert and oriented Not in any distress HEENT normocephalic atraumatic Respiration clear to auscultation CVS regularly regular rhythm Abdomen is soft nontender [employer] nonfocal Extremities no pedal edema cyanosis Assessment: Alcoholism/alcohol withdrawal History of alcohol withdrawal seizures Suicidal ideation Leukocytosis Current everyday nicotine use, e-cigarette/vape Cocaine and methamphetamine use Gastroesophageal flux disease Mood disorder Seasonal allergies Plan Labs reviewed CIWA protocol Thiamine folic acid multivitamin Agree with Librium Seizure precaution Psych consultation Chemical dependency referral Subjective Chief Complaint: Chief Complaint Patient presents with Suicidal Ideations Intoxication History of Present Illness: History obtained from patient and medical record Records from Care everywhere has been reviewed including progress notes, office note, labs and investigation prior and summarized in the body of HPI History of Present Illness: Mckinley Roman is an 37 year old male with a past medical history of alcohol and illicit drug use. Presents to the ED 01/05/2023 and requesting alcohol detox and suicidal ideations. Patient tells methat his last drink was a little after midnight. Patient endorses heavy, binge drinking for the past 5 days. He tells me he was drinking about 3 bottles of vodka every day. This is about 2 L of hard liquor daily. Patient states that he wants to stop drinking. Patient states he has tried in the pastand has not been successful. Patient states that he has had seizures with previous alcohol withdrawal. Additionally, patient reports suicidal ideations for the last few days. Denies hallucinations. He tells me that he would plan to kill himself by cutting. Additionally endorses cocaine and methamphetamine use within the last 24 hours. Patient states that he is anxious, agitated, nauseous, and hashad a headache. Denies any fever or recent contact with sick individuals. Patient was pink slipped in the emergency department, psychiatric was consulted for additional and ongoing recommendations. Will initiate CIWA protocol, bedside sitter, suicide precautions, seizure precautions, Librium taper,lorazepam/diazepam as needed for CIWA greater than 12, and monitor for symptom improvement. Review of System Review of Systems Constitutional: Positive for chills. Negative for fever and weight loss. HENT: Negative for hearing loss, nosebleeds and sore throat. Eyes: Positive for photophobia. Negative for blurred vision. Respiratory: Negative for cough, shortness of breath and wheezing. Cardiovascular: Negative for chest pain, palpitations and leg swelling. Gastrointestinal: Positive for diarrhea, nausea and vomiting. Negative for blood in stool, constipation and heartburn. Genitourinary: Negative for dysuria, frequency, hematuria and urgency. Musculoskeletal: Positive for myalgias. Negative for back pain, falls, joint pain and neck pain. Skin: Negative for itching and rash. Neurological: Positive for dizziness, tremors, loss of consciousness and headaches. Negative for seizures (history of alcohol withdrawal seizures in the past). Endo/Heme/Allergies: Does not bruise/bleed easily. Psychiatric/Behavioral: Positive for depression and suicidal ideas. Negative for hallucinations. Past Medical History Past Medical History: Diagnosis Date Alcohol abuse Surgical History History reviewed. No pertinent surgical history. Social History Social History Socioeconomic History Marital status: Single Spouse name: Not on file Number of children: Not on file Years of education: Not on file Highest education level: Not on file Occupational History Not on file Tobacco Use Smoking status: Never Smokeless tobacco: Never Vaping Use Vaping Use: Every day Substance and Sexual Activity Alcohol use: Yes Alcohol/week: 40.0 standard drinks of alcohol Types: 40 Shots of liquor per week Comment: pint of whiskey daily, states today he drank multiple [place] rums Drug use: Yes Types: Cocaine, Methamphetamine Comment: last used months ago Sexual activity: Not on file Other Topics Concern Not on file Social History Narrative Not on file Social Determinants of Health Financial Resource Strain: Not on file Food Insecurity: Not on file Transportation Needs: Not on file Physical Activity: Not on file Stress: Not on file Social Connections: Not on file Intimate Partner Violence: Not on file Housing Stability: Not on file Family History History reviewed. No pertinent family history. Allergies No Known Allergies Home Medications Current Facility-Administered Medications Medication Dose Route Frequency Provider Last Rate Last Admin chlordiazePOXIDE (LIBRIUM) capsule 50 mg 50 mg Oral STAT Uriah Wallace APRN chlordiazePOXIDE (LIBRIUM) capsule 25 mg 25 mg Oral Q6H Uriah Wallace APRN Followed by [START ON 01/06/2023] chlordiazePOXIDE (LIBRIUM) capsule 25 mg 25 mg Oral BID Uriah Wallace APRN [START ON 01/07/2023] chlordiazePOXIDE (LIBRIUM) capsule 25 mg 25 mg Oral Daily Uriah Wallace APRN buPROPion (WELLBUTRIN XL) XL-tablet 150 mg 150 mg Oral Daily Uriah Wallace APRN cloNIDine HCL (CATAPRES) tablet 0.1 mg 0.1 mg Oral Once Uriah Wallace APRN fluticasone propionate (FLONASE) nasal spray 1 [place] 1 [place] Each Nostril Daily Uriah Wallace APRN hydrOXYzine HCL (ATARAX) tablet 50 mg 50 mg Oral Nightly PRN Uriah Wallace APRN cetirizine (zyrTEC) tablet 10 mg 10 mg Oral Daily Uriah Wallace APRN Melatonin tablet 5 mg 5 mg Oral HS Uriah Wallace APRN pantoprazole (PROTONIX) enteric-coated tablet 40 mg 40 mg Oral Daily Uriah Wallace APRN traZODone (DESYREL) tablet 50 mg 50 mg Oral HS Uriah Wallace APRN busPIRone (BUSPAR) tablet 10 mg 10 mg Oral BID Uriah Wallace APRN Current Outpatient Medications Medication Sig Dispense Refill buPROPion (WELLBUTRIN XL) 150 mg XL-tablet 24 Hr Take 1 Tab by mouth daily loratadine (CLARITIN) 10 mg tablet Take 1 Tab by mouth daily Melatonin (MELATONIN) 5 mg Tablet tablet Take 1 Tab by mouth at bedtime THEREMS-M 9 mg iron-400 mcg tablet Take 1 Tab by mouth daily TAB-A-RENAE MULTIVITAMIN W-IRON 15 mg iron- 400 mcg Tablet Take 1 Tab by mouth daily omeprazole (PRILOSEC) [address]-capsule Take 1 Cap by mouth daily thiamine (VITAMIN B1) 100 mg tablet Take 1 Tab by mouth daily traZODone (DESYREL) 50 mg tablet Take 1 Tab by mouth at bedtime B COMPLEX 1, WITH FOLIC ACID, 0.4 mg Tablet Take 1 Tab by mouth daily at 6pm busPIRone (BUSPAR) 10 mg tablet Take 1 Tab by mouth two times a day cloNIDine HCL (CATAPRES) 0.1 mg tablet Take 1 Tab by mouth once ergocalciferol (VITAMIN D2) 1,250 mcg (50,000 unit) capsule Take 1 Cap by mouth daily folic acid (FOLATE) 1 mg tablet Take 1 Tab by mouth daily hydrOXYzine pamoate (VISTARIL) 50 mg capsule Take 1 Cap by mouth at bedtime as needed fluticasone propionate (FLONASE) 50 mcg/actuation nasal spray hydrOXYzine HCL (ATARAX) 50 mg tablet baclofen (LIORESAL) 10 mg tablet diazePAM (VALIUM) 5 mg tablet ondansetron (ZOFRAN ODT) 4 mg RAPID DISSOLVING tablet Take 1 Tab by mouth every 6 hours as needed 12 Tab 0 dicyclomine (BENTYL) 20 mg tablet Take 1 Tab by mouth three times a day before meals and at [id number] Tab 0 cyclobenzaprine (FLEXERIL) 10 mg tablet venlafaxine (EFFEXOR) 25 mg tablet Take 9 Tab by mouth once Per patient he states he takes 225mg once daily. Admission Date: Medication Sig Dispense Refill buPROPion (WELLBUTRIN XL) 150 mg XL-tablet 24 Hr Take 1 Tab by mouth daily loratadine (CLARITIN) 10 mg tablet Take 1 Tab by mouth daily Melatonin (MELATONIN) 5 mg Tablet tablet Take 1 Tab by mouth at bedtime THEREMS-M 9 mg iron-400 mcg tablet Take 1 Tab by mouth daily TAB-A-RENAE MULTIVITAMIN W-IRON 15 mg iron- 400 mcg Tablet Take 1 Tab by mouth daily omeprazole (PRILOSEC) [address]-capsule Take 1 Cap by mouth daily thiamine (VITAMIN B1) 100 mg tablet Take 1 Tab by mouth daily traZODone (DESYREL) 50 mg tablet Take 1 Tab by mouth at bedtime B COMPLEX 1, WITH FOLIC ACID, 0.4 mg Tablet Take 1 Tab by mouth daily at 6pm busPIRone (BUSPAR) 10 mg tablet Take 1 Tab by mouth two times a day cloNIDine HCL (CATAPRES) 0.1 mg tablet Take 1 Tab by mouth once ergocalciferol (VITAMIN D2) 1,250 mcg (50,000 unit) capsule Take 1 Cap by mouth daily folic acid (FOLATE) 1 mg tablet Take 1 Tab by mouth daily hydrOXYzine pamoate (VISTARIL) 50 mg capsule Take 1 Cap by mouth at bedtime as needed fluticasone propionate (FLONASE) 50 mcg/actuation nasal spray Objective Vital Signs: Temp: 98.1 F (36.7 C) (01/05/23 0405) Temp Min: 98.1 F (36.7 C) Min taken time: 01/05/23404 Max: 98.1 F (36.7 C) Max taken time: 01/05/23404 BP: 121/70 (01/05/23799) Pulse: 83 (01/05/23799) Resp: 26 (01/05/23404) SpO2: 96 % (01/05/23799) Physical Examination General: agitated, pale, and moving around frequently in bed, alert and oriented to questioning, diaphoretic HEENT: Oropharynx pink, moist, and without lesion or exudate CV: regular rate and rhythm and no S3 or S4 PUL: Bilateral Diminished breath sounds throughout and respiratory effort normal ABD: Abdomen soft, non-tender. BS normal. No masses or organomegaly Neuro: appears anxious, agitated, slight tremors noted Extremity: supple, non-tender, without cyanosis or edema Skin: Skin color, texture, turgor normal. No rashes or lesions. Diagnostic Data Recent Results (from the past 24 hour(s)) BASIC METABOLIC PANEL Collection Time: 01/05/23 5:08 AM Result Value Ref Range Sodium 142 135 - 148 mEq/L Potassium 4.1 3.4 - 5.3 mEq/L Chloride 104 96 - 110 mEq/L Carbon Dioxide 26 19 - 32 mEq/L BUN 15 3 - 29 mg/dL Creatinine 1.0 0.5 - 1.4 mg/dL Glucose 101 (H) 70 - 99 mg/dL Calcium 9.1 8.5 - 10.5 mg/dL Anion Gap 12 5 - 15 BUN/CREAT Ratio 15 7 - 25 Estimated GFR 99 >=60 mL/min/1.73m*2 ETHANOL Collection Time: 01/05/23 5:08 AM Result Value Ref Range Ethanol, Serum/Plasma 147 (H) <10 mg/dL HEPATIC FUNCTION PANEL Collection Time: 01/05/23 5:08 AM Result Value Ref Range Bilirubin,Total <0.2 0.0 - 1.2 mg/dL Bilirubin, Direct <0.2 0.0 - 0.4 mg/dL Bilirubin, Indirect Total Protein 7.2 6.0 - 8.3 g/dL Albumin 4.1 3.5 - 5.2 g/dL AST 30 0 - 46 U/L ALT 80 (H) 0 - 60 U/L Alkaline Phosphatase 106 23 - 144 U/L COMPLETE BLOOD COUNT WITH DIFFERENTIAL Collection Time: 01/05/23 5:08 AM Result Value Ref Range WBC Count 13.0 (H) 3.5 - 10.9 K/uL RBC 5.17 4.14 - 5.80 M/uL Hemoglobin 14.8 13.0 - 17.7 g/dL Hematocrit 43.5 37.5 - 51.0 % MCV 84.1 80.0 - 100.0 fL MCH 28.6 26.0 - 34.0 pg MCHC 34.0 30.7 - 35.5 g/dL RDW 13.0 <=15.0 % Platelet Count 543 (H) 140 - 400 K/uL MPV 7.8 7.2 - 11.7 fL nRBC 0 <=0 /100 WBCs % Neutrophils 69.0 42.0 - 80.0 % % Lymphocytes 24.0 14.0 - 51.0 % % Monocytes 5.4 4.0 - 12.0 % % Eosinophils 0.5 0.0 - 5.0 % % Basophils 0.3 0.0 - 2.0 % % Immature Granulocyte 0.8 <1.0 % Absolute Neutrophils 9.0 (H) 1.8 - 7.5 K/uL Absolute Lymphocyte 3.1 0.9 - 4.1 K/uL Absolute Monocyte 0.7 0.2 - 1.0 K/uL Absolute Eosinophils 0.1 0.0 - 0.5 K/uL Absolute Basophil 0.0 0.0 - 0.3 K/uL Absolute Immature Granulocytes 0.1 0.0 - 0.1 K/uL Scan Result Imaging XR CHEST PA OR AP 1 VIEW (PORTABLE) Result Date: 01/04/2023 EXAM: XR Chest, 1 View CLINICAL INDICATION: 37 years Male ; MENTAL HEALTH PROBLEM, ABDOMINAL PAIN, BACK PAIN, CHEST PAIN, TECHNIQUE: Frontal view of the chest. COMPARISON: No relevant prior studies available. FINDINGS: LUNGS AND PLEURAL SPACES: Unremarkable. No consolidation. No pneumothorax. HEART: Unremarkable. No cardiomegaly. MEDIASTINUM: Unremarkable. Normal mediastinal contour. BONES/JOINTS: Unremarkable. No acute fracture. IMPRESSION: Normal chest x-ray. Dictated by: Umang Palma MD Workstation ID:[id number] EKG I have personally reviewed the 12 lead EKG and shows NSR @sinus rhythm with QTc 417. Signature Electronically signed by: Uriah Wallace APRN, 01/05/2023 9:24 AM documented in this encounterGalion Community [id number] Physician Emergency department Note* Liliam Gaviria DO - 01/05/2023 6:12 AM EST ATTENDING NOTE I have reviewed the chief complaint and history of present illness and review of systems as well asthe past medical/social/family history sections for this patient. I have examined this patient, andparticipated in the care of this patient. I have reviewed the pertinent clinical information including physical exam, labs, radiographic studies and the plan. HPI: Patient presented with requesting alcohol detox. He also states he is suicidal. He was seen for this 2 days ago. At that time he was being discharged to go as a walk-in for hospitalization at [facility]. He states he did not go there but rather went back and started drinking again. He states he has had a prior hospitalization for detox for a 30-day inpatient treatment but is uncertain when and where or how long he was sober after that detox hospitalization. On chart review the patient has had multiple hospitalizations for his alcohol abuse/intoxication. Alcohol level is 147 currently. Will be evaluated by behavioral health. He currently does not have any objective evidence of alcohol withdrawal, i.e. hypertension, tachycardia, or tremor/tongue fasciculations. He does however have an elevated CIWA given his symptom profile. He will be hospitalized for alcohol detox and behavioral health evaluation. Electronically signed by: Liliam Gaviria DO, 01/05/2023 7:21 AM [facility] Work Phone: [phone] Physician Emergency department Note* Tasha Brown PA-C - 01/05/2023 5:39 AM EST TRIAGE CHIEF COMPLAINT: Chief Complaint Patient presents with Suicidal Ideations Intoxication HPI: Mckinley Roman is a 37 year old male who presents to the emergency department complaining of wanting to stop drinking alcohol as well as suicidal ideations. To me, the patient reports drinking 3 bottles of vodka daily, each of those measuring 1/5 of alcohol. This means he drinks over 2 L of hard liquor daily. He states that he binges like this for numerous days in a row. However he wants tostop drinking. He states that he has tried to stop in the past but unfortunately has had seizures with previous alcohol withdrawals. Patient also reports suicidal ideations for the last few days. He states that he plans to kill himself by cutting himself. He also reports using meth in the last 24 ho urs. Admits to anxiety, agitation, nausea, vomiting. Denies any fevers, shortness of breath, chest pain, abdominal pain. External Records Reviewed: None REVIEW OF SYSTEMS: Otherwise negative unless stated above PAST MEDICAL HISTORY: Past Medical History: Diagnosis Date Alcohol abuse FAMILY HISTORY: No family history on file. SOCIAL HISTORY: Social History Socioeconomic History Marital status: Single Spouse name: Not on file Number of children: Not on file Years of education: Not on file Highest education level: Not on file Occupational History Not on file Tobacco Use Smoking status: Never Smokeless tobacco: Never Vaping Use Vaping Use: Every day Substance and Sexual Activity Alcohol use: Yes Alcohol/week: 40.0 standard drinks of alcohol Types: 40 Shots of liquor per week Comment: pint of whiskey daily, states today he drank multiple [place] rums Drug use: Not Currently Types: Cocaine, Methamphetamine Comment: last used months ago Sexual activity: Not on file Other Topics Concern Not on file Social History Narrative Not on file Social Determinants of Health Financial Resource Strain: Not on file Food Insecurity: Not on file Transportation Needs: Not on file Physical Activity: Not on file Stress: Not on file Social Connections: Not on file Intimate Partner Violence: Not on file Housing Stability: Not on file SURGICAL HISTORY: No past surgical history on file. CURRENT MEDICATIONS: No current facility-administered medications for this encounter. Current Outpatient Medications: cloNIDine HCL (CATAPRES) 0.1 mg tablet, Take 1 Tab by mouth once, Disp: , Rfl: ergocalciferol (VITAMIN D2) 1,250 mcg (50,000 unit) capsule, Take 1 Cap by mouth daily, Disp: , Rfl: folic acid (FOLATE) 1 mg tablet, Take 1 Tab by mouth daily, Disp: , Rfl: hydrOXYzine HCL (ATARAX) 50 mg tablet, , Disp: , Rfl: hydrOXYzine pamoate (VISTARIL) 50 mg capsule, 1 Cap, Disp: , Rfl: baclofen (LIORESAL) 10 mg tablet, , Disp: , Rfl: diazePAM (VALIUM) 5 mg tablet, , Disp: , Rfl: ondansetron (ZOFRAN ODT) 4 mg RAPID DISSOLVING tablet, Take 1 Tab by mouth every 6 hours as needed,Disp: 12 Tab, Rfl: 0 dicyclomine (BENTYL) 20 mg tablet, Take 1 Tab by mouth three times a day before meals and at bedtime, Disp: 14 Tab, Rfl: 0 cyclobenzaprine (FLEXERIL) 10 mg tablet, , Disp: , Rfl: fluticasone propionate (FLONASE) 50 mcg/actuation nasal spray, , Disp: , Rfl: venlafaxine (EFFEXOR) 25 mg tablet, Take 9 Tab by mouth once Per patient he states he takes 225mg once daily., Disp: , Rfl: ALLERGIES: Patient has no known allergies. PHYSICAL EXAM: VITAL SIGNS: Vitals: 01/05/23 0405 01/05/23 0449 01/05/23 0628 01/05/23 0700 BP: 139/71 146/84 113/54 Pulse: 89 91 88 Resp: 26 Temp: 98.1 F (36.7 C) SpO2: 99% 98% 97% 93% CONSTITUTIONAL: Awake, oriented, appears non-toxic HENT: Atraumatic, normocephalic, oral mucosa pink and moist, airway patent. Nares patent without drainage. External ears normal. EYES: Conjunctiva clear, pupils equal, round, reactive to light NECK: Trachea midline, non-tender, supple CARDIOVASCULAR: Normal heart rate, Normal rhythm PULMONARY/CHEST: Clear to auscultation bilaterally ABDOMINAL: Non-distended, soft, non-tender - no rebound or guarding. NEUROLOGIC: Non-focal, moving all four extremities, no gross sensory or motor deficits. EXTREMITIES: No clubbing, cyanosis, or edema. SKIN: Warm, Dry, No erythema, No rash ED COURSE / MEDICAL DECISION MAKING: Mckinley Roman is a 37 year old male who presents to the emergency department complaining of alcohol abuse, wanting to quit drinking, and suicidal ideations. Upon arrival vitals reviewed and are within normal limits. History and physical exam as above. Due to the patient's suicidal ideations and plan of wanting to cut himself, we did proceed with a pink slip. Will obtain remainder of workup for psychiatric evaluation and treatment as well. BMP within normal limits. CBC reveals slight leukocytosis at 13 and thrombocytosis at 543. Hepatic panel reveals ALT of 80. Blood ethanol level is 147. Patient CIWA score is 21. I am concerned that he will need admission for alcohol withdrawal first before undergoing psychiatric admission for evaluation of and treatment of suicidal ideations. Therefore will order a banana bag and a p.o. Ativan and call hospitalist for admission. Independent Interpretation of Studies: None Discussion of Management: Hospitalist Social Work Escalation/De-Escalation of Care: Admitted Billable Critical Care Time: None or <30 minutes Patient was seen and examined by myself and attending physician, Liliam Dorantes DO. All exam,laboratory, radiologic findings were discussed in the care and management of the patient. FINAL IMPRESSION: 1. Alcohol withdrawal syndrome without complication (HC CODE) 2. Suicidal ideation Electronically signed by: Tasha Brown PA-C, 01/05/2023 7:43 AM [facility] [id number] Emergency department Note* Jennie Alvarado RN - 01/05/2023 4:49 AM EST Patient ambulated from GRN 17 to GRN 18 at this time. Gait steady. [facility] [id number] Emergency department Note* Yu Adams RN - 01/05/2023 4:02 AM EST Patient to ED via medics with c/o wanting to stop drinking alcohol and suicidal ideations. Denies having plan. Has made attempt before. Cooperative. Reports last drink was several hours ago, currently coming off of a 5 day binge. Smells heavily of alcohol. Alert and oriented. Skin PWD, RR even and unlabored. Adds used Meth in the past 24 hours. [facility] [id number] Emergency department Note* Michelle Palma RN - 01/04/2023 4:09 AM EST This RN to bedside to discharge patient. Patient refusing vital signs. Patient refusing AVS. Patient ambulatory to the exit with even steady gait. [facility] [id number] Emergency department Note* Michelle Palma RN - 01/04/2023 4:09 AM EST This RN to bedside to discharge patient. Patient refusing vital signs. Patient refusing AVS. Patient ambulatory to the exit with even steady gait. * Jamin Sierra - 01/03/2023 11:38 PM EST 12 lead EKG completed results handed to Conor Young MD * Zoe Jacobson RN - 01/03/2023 11:13 PM EST Bed: [facility] Expected date: Expected time: Means of arrival: Comments: triage * Amanda Boggs RN - 01/03/2023 11:01 PM EST Adds on chest, back, abdomen & jaw pain x 2 days * Amanda Boggs RN - 01/03/2023 11:00 PM EST Arrived to ED c/o I need help ma'am Denies SI/HI documented in this encounterPreOhioHealth Arthur G.H. Bing, MD, Cancer [id number] Hospital Discharge instructions* Discharge Instructions* Kem Beltran MD - 01/04/2023 4:04 AM EST You are seen in the emergency department today for chest pain and alcohol use. Your work-up did notreveal any emergent causes of your symptoms that would warrant hospitalization or further work-up at this time. Please follow-up with your primary care provider as needed. Please take your prescription medications exactly as prescribed. Please return to the emergency department immediately for any of the following: Fever, chills, chest pain, palpitations, shortness of breath, abdominal pain, blood in your stool, blood in your urine, loss of consciousness, loss sensation in any part of your body, vision changes, any other symptoms which are concerning to you. * Attachments The following attachments cannot be sent through Care Everywhere. * Alcohol Use Disorder: General Info (Palestinian) * Alcohol: Taking Action: Video (Palestinian) documented in this encounterPreOhioHealth Arthur G.H. Bing, MD, Cancer [id number] History of Present illness Narrative* Marisol Thrasher LPC - 01/04/2023 3:39 AM EST [facility] ED Die Assembler/Counselor Team Evaluation-Brief Note: Patient Information 01/04/2023 Mckinley Roman : 1985 AGE: [age] year old DOA: 01/03/2023 ROOM#/LOCATION: GRN15/GRN15 Address: No Known Address [place] [address] Phone #: [phone] County of Residence: [place] Referring Physician: Dr. Beltran Race: Gender: male Presenting Problem / Situation: Pt presents to ED requesting help. ETOH 145 @ 01:16. Counselor received request for brief consultwith patient. Counselor met with pt at bedside when clinically sober. Pt presents calm and cooperative. Pt requests inpatient substance use treatment. Pt admits to alcohol use and denies that he has been connected with treatment. Per chart, pt had reportedly left treatment at [facility] 11/01/2022. Current (or recent) Mental Health Treatment: Pt denies ? Recommendations and Referrals: Walk-in at [facility] (Wednesday-Wednesday 9am- 4pm). Additional resource given for [facility]. SUPPORTIVE LISTENING PROVIDED and RESOURCE LIST GIVEN TO PATIENT. Pt recommended to follow-up with substance use treatment. No additional needs expressed by patient at this time. Assessment completed. documented in this encounterPreOhioHealth Arthur G.H. Bing, MD, Cancer [id number] Emergency department Note* Jamin Sierra - 01/03/2023 11:38 PM EST 12 lead EKG completed results handed to Conor Young MD [id number] Emergency department Note* Zoe Jacobson RN - 01/03/2023 11:13 PM EST Bed: [facility] Expected date: Expected time: Means of arrival: Comments: triage [id number] Emergency department Note* Amanda Boggs RN - 01/03/2023 11:01 PM EST Adds on chest, back, abdomen & jaw pain x 2 days [facility]11-26-2023 Emergency department Note* Amanda Boggs RN - 01/03/2023 11:00 PM EST Arrived to ED c/o I need help ma'am Denies SI/HI [id number] Emergency department Note* Uriah Marcus RN - 11/02/2022 1:15 AM EDT Pt reports that he left here and went to [employer] and stole vodka so he could drink. [facility] [id number] Emergency department Note* Uriah Marcus RN - 11/02/2022 1:15 AM EDT Pt reports that he left here and went to [employer] and stole vodka so he could drink. documented in this encounterGalion Community HospitalYvpgsi28-17-2629 Emergency department Note* Marlena Alvarez RN - 11/01/2022 11:00 PM EDT Pt spoke with rn social work via Telehealth and states he wants to leave. Dr Barron notified. Pt escorted out by campus police. Primary nurse notified. [facility] [id number] Emergency department Note* Marlena Alvarez RN - 11/01/2022 11:00 PM EDT Pt spoke with rn social work via Telehealth and states he wants to leave. Dr Barron notified. Pt escorted out by campus police. Primary nurse notified. * Marlena Alvarez RN - 11/01/2022 10:29 PM EDT Pt arrives via medics with c/o SI. Per medics, pt was at a gas station and approached someone stating he was suicidal. Pt not pink slipped on arrival. Pt admits to drinking today. Pt denies any thoughts of wanting to hurt himself at this time. Pt states I just need help and don't know what to do anymore . Pt is A&Ox4, resp even and unlabored, NAD noted. Dr Riley at bedside, states pt does not need a sitter and will not be pink slipped. * Ramona Jama RN - 11/01/2022 10:29 PM EDT Bed: [facility] Expected date: Expected time: Means of arrival: Comments: medic documented in this encounterPremier [id number] History of Present illness Narrative* Marisol Thrasher LPC - 11/01/2022 10:46 PM EDT Counselor received request from ED GILBERTO Nicholas for brief Telemedicine consult with patient to provide substance use treatment resources. Counselor met with pt via Telemedicine (audio and video). Ptpresented tearful and requesting help. Pt states that he is homeless and recently left [facility]. Counselor recommended walk-in at [facility] at 8am tomorrow for intake assessment/detox treatment and provided information for [facility]. Pt stated agreeableness to follow-up with these places. Pt denied further needs or questions. Information placed in AVS. documented in this encounterPretner [id number] Emergency department Note* Marlena Alvarez RN - 11/01/2022 10:29 PM EDT Pt arrives via medics with c/o SI. Per medics, pt was at a gas station and approached someone stating he was suicidal. Pt not pink slipped on arrival. Pt admits to drinking today. Pt denies any thoughts of wanting to hurt himself at this time. Pt states I just need help and don't know what to do anymore . Pt is A&Ox4, resp even and unlabored, NAD noted. Dr Riley at bedside, states pt does not need a sitter and will not be pink slipped. [facility] [id number] Emergency department Note* Ramona Jama RN - 11/01/2022 10:29 PM EDT Bed: N24 Expected date: Expected time: Means of arrival: Comments: medic [facility] [id number] Emergency department Note* Uriah Marcus RN - 11/01/2022 8:08 PM EDT Pt shouting at staff and doctor while in room. Pt then walked out shouting fuck you you dumb bitch [facility] HospitalLpnjdw93-28-5036 Emergency department Note* Uriah Marcus RN - 11/01/2022 8:08 PM EDT Pt shouting at staff and doctor while in room. Pt then walked out shouting fuck you you dumb bitch * Uriah Marcus RN - 11/01/2022 7:44 PM EDT Pt shouting and very irritable and demanding get me into a treatment center, I know 8 different numbers you can call right now to get me into rehab. Call [facility], I know that you have to help me when I come to the hospital * Ramona Jama RN - 11/01/2022 7:39 PM EDT Bed: N22 Expected date: Expected time: Means of arrival: Comments: medic * Uriah Marcus RN - 11/01/2022 7:33 PM EDT Pt seen multiple times for alcohol intoxication, pt reports that he has been drinking since he leftand needs help to stop documented in this encounterGalion Community [id number] Emergency department Note* Uriah Marcus RN - 11/01/2022 7:44 PM EDT Pt shouting and very irritable and demanding get me into a treatment center, I know 8 different numbers you can call right now to get me into rehab. Call [facility], I know that you have to help me when I come to the hospital [facility] [id number] Emergency department Note* Ramona Jama RN - 11/01/2022 7:39 PM EDT Bed: [facility] Expected date: Expected time: Means of arrival: Comments: medic [facility] [id number] Emergency department Note* Uriah Marcus RN - 11/01/2022 7:33 PM EDT Pt seen multiple times for alcohol intoxication, pt reports that he has been drinking since he leftand needs help to stop [facility] [id number] Emergency department Note* Corinna Coronado RN - 10/31/2022 8:33 AM EDT Saline lock removed without difficulty, no redness or swelling at sight 2x2 and tape applied. Home instruction sheets given to patient with understanding verbalized. Pt. Dressed per self tolerated well. Pt. Ambulating to waiting area to complete discharge. [facility] [id number] Emergency department Note* Corinna Coronado RN - 10/31/2022 8:33 AM EDT Saline lock removed without difficulty, no redness or swelling at sight 2x2 and tape applied. Home instruction sheets given to patient with understanding verbalized. Pt. Dressed per self tolerated well. Pt. Ambulating to waiting area to complete discharge. * Jennie Kinsey RN - 10/31/2022 7:19 AM EDT Bedside report given to Patricia TAY * Uriah Saenz MD - 10/31/2022 3:57 AM EDT CHIEF COMPLAINT Chief Complaint Patient presents with Alcohol Problem HPI Mckinley Roman is a 37 year old male who presents to the ED with c/o relapsing on alcohol. States that he left here and went and got a bottle of vodka. As I am talking to him I am looking at [facility], patient was just here in the ED a couple of hours ago for the same thing. He was intoxicated, wasn't sure if he wanted to stop drinking. It is also noted that he left [facility] earlier in the week after being detoxed. States that he drinks a gallon of vodka or whiskey daily. States that when he quits drinking he gets shaky, sweaty, vomits and has seizures. States that he did leave here and go get a bottle of vodka. He says that he cannot explain why he left [facility], why he wasn't sure if he wanted to keep drinking or stop drinking alcohol even just a couple of hours ago. States that he wants to get sober and stop drinking now. Patient was brought in by police after he requested to be brought here as he has no where to live. States that he takes effexor daily, flonase, claritin and no other medications. Independent Historian: External Records Review: PAST MEDICAL HISTORY No past medical history on file. SURGICAL HISTORY No past surgical history on file. CURRENT MEDICATIONS No current facility-administered medications for this encounter. Current Outpatient Medications: baclofen (LIORESAL) 10 mg tablet, , Disp: , Rfl: diazePAM (VALIUM) 5 mg tablet, , Disp: , Rfl: ondansetron (ZOFRAN ODT) 4 mg RAPID DISSOLVING tablet, Take 1 Tab by mouth every 6 hours as needed,Disp: 12 Tab, Rfl: 0 dicyclomine (BENTYL) 20 mg tablet, Take 1 Tab by mouth three times a day before meals and at bedtime, Disp: 14 Tab, Rfl: 0 cyclobenzaprine (FLEXERIL) 10 mg tablet, , Disp: , Rfl: fluticasone propionate (FLONASE) 50 mcg/actuation nasal spray, , Disp: , Rfl: venlafaxine (EFFEXOR) 25 mg tablet, Take 9 Tab by mouth once Per patient he states he takes 225mg once daily., Disp: , Rfl: ALLERGIES No Known Allergies FAMILY HISTORY No family history on file. SOCIAL HISTORY Social History Socioeconomic History Marital status: Single Tobacco Use Smoking status: Never Smokeless tobacco: Never Vaping Use Vaping Use: Never used Substance and Sexual Activity Alcohol use: Yes Alcohol/week: 40.0 standard drinks Types: 40 Shots of liquor per week Comment: pint of whiskey daily, states today he drank multiple malibu rums Drug use: Not Currently Types: Cocaine, Methamphetamine Comment: last used months ago REVIEW OF SYSTEMS Constitutional: Denies fever, chills, weight loss or weakness Eyes: Denies photophobia or discharge HENT: Denies sore throat or ear pain Respiratory: Denies cough or shortness of breath Cardiovascular: Denies chest pain, palpitations or swelling GI: Denies abdominal pain, nausea, vomiting, or diarrhea Musculoskeletal: Denies back pain Skin: Denies rash Neurologic: Denies headache, focal weakness or sensory changes Endocrine: Denies polyuria or polydypsia Lymphatic: Denies swollen glands Psychiatric: Denies depression, suicidal ideation or homicidal ideation All systems negative except as marked. PHYSICAL EXAM VITAL SIGNS: Vitals: 10/31/22 0344 BP: 131/79 Pulse: 84 Resp: 20 Temp: 98 F (36.7 C) SpO2: 96% Constitutional: Well developed, Well nourished, No acute distress, Non-toxic appearance. HENT: Normocephalic, Atraumatic, Bilateral external ears normal, Oropharynx moist with no orophargyngeal erythema/edema, Nose normal. Neck- Normal range of motion, No tenderness over C spine, Supple, No stridor. Eyes: PERRL, EOMI, Conjunctiva normal, No discharge. Respiratory: Normal breath sounds, No respiratory distress, No wheezing, No chest tenderness. Cardiovascular: Normal heart rate, Normal rhythm, No murmurs, No rubs, No gallops. GI: +BS, Soft, No tenderness, No masses, No pulsatile masses. No rebound/guarding, no CVA TTP Musculoskeletal: Intact distal pulses, No edema, No tenderness, No cyanosis, No clubbing. Good range of motion in all major joints. No tenderness to palpation or major deformities noted. Back- No tenderness over T/L spine Derm: Warm, Dry, No erythema, No rash. Neurologic: Alert & oriented x 3, Normal motor function, Normal sensory function, No focal deficits noted. REJI Roman is a 37 year old male who presents to the emergency department secondary to complaint that he wants to get sober. Patient was incidentally admitted for detox and at a rehab facility this week but left AGAINST MEDICAL ADVICE. He was also just as in this ER this evening a couple of hours ago. He was not certain whether or not he wanted sobriety at that time either, he then left, went to [employer] and bought vodka. I do suspect that there may be a malingering component, do not doubt that he may not want to get sober as well. I will recheck an alcohol level as he has had full labs this evening and has no new concerns or complaints. He is hemodynamically stable. He is not suicidal or homicidal. Patient's blood alcohol is 188 at 4:20 AM, will be legally sober around 8:30 AM. It is currently 7:15 in the morning. Patient is sleeping, he evidences no signs of withdrawal. Did discuss with him that if at 8:30 AM he is not experiencing withdrawal symptoms there is no criteria for admission and we will have him talk to the social workers for outpatient resources and management. He is now 815, th e patient is sober, he has been ambulatory, he is going to be given something to eat and drink. Will give resources, will discharge in good condition. Independent Interpretation of Studies: None Discussion of Management: rn social work if he is not admitted Escalation/De-Escalation of Care: re-eval when sober Billable Critical Care Time: None or <30 minutes FINAL IMPRESSION 1. Alcohol abuse with intoxication 2. homelessness 3. I have personally seen and examined this patient. I have fully participated in the care of this patient and I have reviewed and agree with all pertinent clinical information including history, physical exam, and plan. I have also reviewed and agree with the medications, allergies and past medical history section for this patient. Electronically signed by: Uriah Saenz MD, 10/31/2022 3:58 AM * Uriah Marcus RN - 10/31/2022 3:42 AM EDT Pt recently seen and discharged, returns and is requesting help to stop drinking. Pt reports that he left here, went to [facility] bought a bottle of vodka and has no place to live. [place] police dropped pt off at triage. Pt continuously apologizing in triage documented in this encounterGalion Community [id number] Hospital Discharge instructions* Discharge Instructions* Abdulkadir Avila MD - 10/31/2022 8:03 AM EDT CRISIS CARE - You may choose to follow up with Crisis Care. They provide a hotline service 24 hours per day 7 days per week. They also conduct Mental Health and Drug and Alcohol Assessments for linkage to treatment. - [facility] Care provides walk-in crisis intervention 24 hours per day 7 days per week. They also havewalk-in assessments Wednesday-Wednesday (excluding holidays) @ 700AM, these are completed on a first comefirst seen basis. - You can contact Crisis Care at , to schedule an assessment. Please bring ID and proof of residency (anything with address). [facility] 24 Hour Line - [phone] [facility] [address] [facility] is now open for outpatient services at [address] [facility] in [place], [place] every day from 8am-8pm. For more information on our services or to enroll, call [phone] Wednesday-Wednesday 8am-8pm. For all other times, contact [facility] at [phone]. [facility] is a olg-cfr-kzimvz healthcare ecosystem dedicated to the full and sustained recovery ofpeople suffering from opioid addiction or substance use disorder. We are developing a tech-enabled system of care that will offer a treatment center, rehabilitation housing, and wrap-around services,all on one prrxk-ju-fcw-art campus. [facility], Inpatient Mental Health & Substance Abuse Acute Treatment for Adults [address] [place] [address] [email or web address] Bluebook Insurance accepted: Most private insurance, Medicare, self-pay, NO Medicaid Inpatient Detox Offered [facility], Outpatient Mental Health & Substance Abuse Treatment [facility], Director [email or web address] [address] [place] [address] [email or web address] Insurance accepted: Medicaid (all forms), NO Medicare or private insurance accepted Outpatient Medication Assisted Treatment Program (Vivitrol, Subutex, & Suboxone offered) [facility], Adult & Youth Mental Health & Substance Abuse Outpatient Treatment Medina Bernabe, Director of Administrative Services [email or web address] Nathalie Steele, Event Services Manager [email or web address] (Ext. 2003) [address] [place]. [address] [email or web address] Insurance accepted: Medicaid ONLY (will possibly accept private insurance in the near future) Outpatient Medication Assisted Treatment for adults only (Vivitrol offered) [facility] Mental Health IOP & Substance Abuse IOP ([place]) Zoe Fontaine, Car Loader [address] [place] [address] [email or web address]/[email or web address]-[email or web address]/ Insurance accepted: Most private insurance, Medicaid, CareSource, [place], Medicare [facility], Outpatient Substance Abuse Treatment for Adults (OP Mental Health Treatmentcoming soon) Michael Shah, Senior Adults Director Loan Enriquez, Clinical Director [address], [place] [address] [email or web address] Insurance accepted: Medicaid (all forms), NO private insurance, NO Medicare Outpatient Medication Assisted Treatment (Vivitrol offered) Inpatient Detox Offered [facility], Outpatient Substance Abuse Treatment for Adults [address] [facility] [place] [address] [email or web address] Insurance accepted: Medicaid (all forms), self-pay, NO Medicare, NO private insurance Outpatient Medication Assisted Treatment (Methadone & Suboxone offered) [facility], Outpatient Mental Health Treatment for Youth & OP Substance Abuse Treatment for Adults [address] [place] [address] [email or web address] Insurance accepted: Medicare, Medicaid (all forms), , [facility], Medical [place] Outpatient Medication Assisted Treatment for adults (Suboxone & Vivitrol offered) * Attachments The following attachments cannot be sent through Care Everywhere. * Alcohol Use Disorder: General Info (Palestinian) documented in this encounterPreOhioHealth Arthur G.H. Bing, MD, Cancer [id number] Emergency department Note* Jennie Kinsey RN - 10/31/2022 7:19 AM EDT Bedside report given to Patricia TAY [facility] [id number] Physician Emergency department Note* Uriah Saenz MD - 10/31/2022 3:57 AM EDT CHIEF COMPLAINT Chief Complaint Patient presents with Alcohol Problem HPI Mckinley Roman is a 37 year old male who presents to the ED with c/o relapsing on alcohol. States that he left here and went and got a bottle of vodka. As I am talking to him [facility], patient was just here in the ED a couple of hours ago for the same thing. He was intoxicated, wasn't sure if he wanted to stop drinking. It is also noted that he left [facility] earlier in the week after being detoxed. States that he drinks a gallon of vodka or whiskey daily. States that when he quits drinking he gets shaky, sweaty, vomits and has seizures. States that he did leave here and go get a bottle of vodka. He says that he cannot explain why he left [facility], why he wasn't sure if he wanted to keep drinking or stop drinking alcohol even just a couple of hours ago. States that he wants to get sober and stop drinking now. Patient was brought in by police after he requested to be brought here as he has no where to live. States that he takes effexor daily, flonase, claritin and no other medications. Independent Historian: External Records Review: PAST MEDICAL HISTORY No past medical history on file. SURGICAL HISTORY No past surgical history on file. CURRENT MEDICATIONS No current facility-administered medications for this encounter. Current Outpatient Medications: baclofen (LIORESAL) 10 mg tablet, , Disp: , Rfl: diazePAM (VALIUM) 5 mg tablet, , Disp: , Rfl: ondansetron (ZOFRAN ODT) 4 mg RAPID DISSOLVING tablet, Take 1 Tab by mouth every 6 hours as needed,Disp: 12 Tab, Rfl: 0 dicyclomine (BENTYL) 20 mg tablet, Take 1 Tab by mouth three times a day before meals and at bedtime, Disp: 14 Tab, Rfl: 0 cyclobenzaprine (FLEXERIL) 10 mg tablet, , Disp: , Rfl: fluticasone propionate (FLONASE) 50 mcg/actuation nasal spray, , Disp: , Rfl: venlafaxine (EFFEXOR) 25 mg tablet, Take 9 Tab by mouth once Per patient he states he takes 225mg once daily., Disp: , Rfl: ALLERGIES No Known Allergies FAMILY HISTORY No family history on file. SOCIAL HISTORY Social History Socioeconomic History Marital status: Single Tobacco Use Smoking status: Never Smokeless tobacco: Never Vaping Use Vaping Use: Never used Substance and Sexual Activity Alcohol use: Yes Alcohol/week: 40.0 standard drinks Types: 40 Shots of liquor per week Comment: pint of whiskey daily, states today he drank multiple malibu rums Drug use: Not Currently Types: Cocaine, Methamphetamine Comment: last used months ago REVIEW OF SYSTEMS Constitutional: Denies fever, chills, weight loss or weakness Eyes: Denies photophobia or discharge HENT: Denies sore throat or ear pain Respiratory: Denies cough or shortness of breath Cardiovascular: Denies chest pain, palpitations or swelling GI: Denies abdominal pain, nausea, vomiting, or diarrhea Musculoskeletal: Denies back pain Skin: Denies rash Neurologic: Denies headache, focal weakness or sensory changes Endocrine: Denies polyuria or polydypsia Lymphatic: Denies swollen glands Psychiatric: Denies depression, suicidal ideation or homicidal ideation All systems negative except as marked. PHYSICAL EXAM VITAL SIGNS: Vitals: 10/31/22 0344 BP: 131/79 Pulse: 84 Resp: 20 Temp: 98 F (36.7 C) SpO2: 96% Constitutional: Well developed, Well nourished, No acute distress, Non-toxic appearance. HENT: Normocephalic, Atraumatic, Bilateral external ears normal, Oropharynx moist with no orophargyngeal erythema/edema, Nose normal. Neck- Normal range of motion, No tenderness over C spine, Supple, No stridor. Eyes: PERRL, EOMI, Conjunctiva normal, No discharge. Respiratory: Normal breath sounds, No respiratory distress, No wheezing, No chest tenderness. Cardiovascular: Normal heart rate, Normal rhythm, No murmurs, No rubs, No gallops. GI: +BS, Soft, No tenderness, No masses, No pulsatile masses. No rebound/guarding, no CVA TTP Musculoskeletal: Intact distal pulses, No edema, No tenderness, No cyanosis, No clubbing. Good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 states it was vodka. Patient repeats I just need some help throughout conversation but continues to deny drug use and denies SI. He states he wants help again while holding his chin. Patient is oriented to self, location, and year. Cannot remember the month at this time. Calm during triage, slow to respond like he cannot find the words swiftly. [facility] [id number] Emergency department Note* Pratibha Dumont RN - 09/17/2022 7:27 PM EDT Bed: [facility] Expected date: Expected time: Means of arrival: Comments: Lupis [facility] [id number] Emergency department Note* Rylee Velazquez RN - 09/12/2022 12:15 PM EDT Pt discharged at this time with instructions to wait for [facility] for transport to [facility]. [facility] [id number] Emergency department Note* Rylee Velazquez RN - 09/12/2022 12:15 PM EDT Pt discharged at this time with instructions to wait for [facility] for transport to [facility]. * Rylee Velazquez RN - 09/12/2022 11:35 AM EDT [facility] contacted for transport to [facility] for further treatment and evaluation per request of . One hour ETA for cab * Sera Barrera MD - 09/12/2022 7:24 AM EDT ATTENDING NOTE This patient was seen in conjunction with the mid-level provider, please see his/her note for full details. I have reviewed the chief complaint and history of present illness and review of systems aswell as the past medical/social/family history sections for this patient. I have examined this patient, and participated in the care of this patient. I have reviewed the pertinent clinical information including physical exam, labs, radiographic studies, and the plan. The patient's medical records were briefly reviewed as available. HPI: Patient presented with complaints of alcohol withdrawal. Patient says that he has been on a 4-day cheema of alcohol abuse and methamphetamines. He says that his last drink was a couple hours ago, has had multiple bottles of rum. He has been hospitalized for withdrawal in the past but has no history of DTs or withdrawal seizures. Denies any current headache, nausea, hallucinations. He does feel a bit tremulous. Review of Systems: Otherwise per documentation Vital Signs: Per chart General: Patient appears non-toxic, alert and oriented, sleeping HENT: Atraumatic, normocephalic, oral mucosa moist Chest: No chest wall tenderness Lungs: Clear to auscultation bilaterally Heart: Regular rate and rhythm Abdomen: Non-distended, soft, non-tender Back: Atraumatic, no CVA tenderness Skin: Warm, dry; no rashes Extremities: No edema, pulses 2+ throughout Neuro: Nonfocal Nursing notes and vitals reviewed. Medical Decision Making and Plan: Mckinley Roman is a 37 year old year-old male who presents to the emergency department for evaluation of possible alcohol withdrawal. Laboratory studies ordered. CIWA order in place, though at this time do not feel the patient requires Ativan given low score. Studies are currently in process, the patient be checked out to the oncoming attending physician team for further evaluation disposition. Diagnosis 1. Alcohol abuse Electronically signed by: Sera Barrera MD, 09/12/2022 7:26 AM * Conor Park MD - 09/12/2022 6:08 AM EDT TRIAGE CHIEF COMPLAINT: Chief Complaint Patient presents with Drug Problem HPI: Mckinley Roman is a 37 year old male with a past medical history of polysubstance use, alcohol use, who presents to the emergency department with concern for alcohol withdrawal. Patient states that over the last 4 days, he has been using meth and alcohol heavily. His last drink was yesterday evening around 7 PM. He last used meth yesterday around 6 PM. States that he has been drinking multiple realms per day. Patient has had a previously be admitted for alcohol withdrawal. No history of withdrawal seizures. He feels tremulous. Endorses nausea, denies vomiting. Denies any fevers, chills,cough, abdominal pain. External Records Reviewed: None REVIEW OF SYSTEMS: Otherwise negative unless stated above PAST MEDICAL HISTORY: History reviewed. No pertinent past medical history. FAMILY HISTORY: History reviewed. No pertinent family history. SOCIAL HISTORY: Social History Socioeconomic History Marital status: Single Spouse name: Not on file Number of children: Not on file Years of education: Not on file Highest education level: Not on file Occupational History Not on file Tobacco Use Smoking status: Never Smokeless tobacco: Never Vaping Use Vaping Use: Never used Substance and Sexual Activity Alcohol use: Yes Alcohol/week: 40.0 standard drinks Types: 40 Shots of liquor per week Comment: pint of whiskey daily, states today he drank multiple [place] rums Drug use: Not Currently Types: Cocaine, Methamphetamine Comment: last used months ago Sexual activity: Not on file Other Topics Concern Not on file Social History Narrative Not on file Social Determinants of Health Financial Resource Strain: Not on file Food Insecurity: Not on file Transportation Needs: Not on file Physical Activity: Not on file Stress: Not on file Social Connections: Not on file Intimate Partner Violence: Not on file Housing Stability: Not on file SURGICAL HISTORY: History reviewed. No pertinent surgical history. CURRENT MEDICATIONS: No current facility-administered medications for this encounter. Current Outpatient Medications: cyclobenzaprine (FLEXERIL) 10 mg tablet, , Disp: , Rfl: fluticasone propionate (FLONASE) 50 mcg/actuation nasal spray, , Disp: , Rfl: venlafaxine (EFFEXOR) 25 mg tablet, Take 9 Tab by mouth once, Disp: , Rfl: ALLERGIES: Patient has no known allergies. PHYSICAL EXAM: VITAL SIGNS: Vitals: 09/12/22 0229 09/12/22 0543 BP: 139/89 125/74 Pulse: 76 69 Resp: 18 Temp: 98.1 F (36.7 C) SpO2: 98% 96% CONSTITUTIONAL: Patient is very sleepy. Will fall asleep intermittently during evaluation. Awakens to voice. Oriented. Answers questions appropriately. Nontoxic. HENT: Atraumatic, normocephalic, oral mucosa pink and moist, airway patent. Nares patent without drainage. External ears normal. EYES: Conjunctiva clear NECK: Trachea midline, non-tender, supple CARDIOVASCULAR: Normal heart rate, Normal rhythm, No murmurs, rubs, gallops PULMONARY/CHEST: Clear to auscultation, no rhonchi, wheezes, or rales. Symmetrical breath sounds. Non-tender. ABDOMINAL: Non-distended, soft, non-tender - no rebound or guarding. NEUROLOGIC: Non-focal, moving all four extremities, no gross sensory or motor deficits. Tremor feltfinger to finger. Not visible to the eye. EXTREMITIES: No clubbing, cyanosis, or edema SKIN: Warm, Dry, No erythema, No rash ED COURSE / MEDICAL DECISION MAKING: Mckinley Roman is a 37 year old male with a past medical history as discussed above who presents to the emergency department with concern for pulse. On arrival to the emergency department, patient was hemodynamically stable, afebrile and SPO2 is appropriate on room air. Overall, patient appears very tired. He is oriented. He will intermittently fall asleep during evaluation. Awakens to verbal stimuli. Protecting his airway. He denies any drug use or alcohol use this morning. Overall, patient has some mild tactile tremors. Low concern for significant alcohol withdrawal at this time. He will be given thiamine at this time and we will place CIWA precautions in case patient's clinical status worsens. ED course and work-up as documented below. ED Course as of 09/12/22 0851 Sat Sep 12, 2022 0745 EKG on my independent rotation demonstrates a normal sinus rhythm with a ventricular rate of 70. QRS narrow. QTc within normal limits. OR normal within normal limits. No signs of acute ischemia. 0748 Magnesium, Serum Magnesium within normal limits 0748 Phosphorus level Phosphorus within normal limits 0749 Comprehensive Metabolic Panel CMP within normal limits 0749 Complete Blood Count (CBC)(!) CBC within normal limits 0749 GGT GGT within normal limits 0749 Ethanol Ethanol not detected At this time, patient will be signed out ongoing resident. Please see their note for final MDM and disposition. If patient's lab work is normal and continues to remain stable, could consider possibledischarge after social work/sound evaluation. However, patient may also require admission if withdrawal symptoms worsen. Independent Interpretation of Studies: EKG - As above Discussion of Management: Pending Escalation/De-Escalation of Care: Pending Billable Critical Care Time: None or <30 minutes S/d/w patient with attending physician Dr. Barrera FINAL IMPRESSION: 1 --alcohol use 2 --methamphetamine use 3 -- Electronically signed by: Conor Park MD, 09/12/2022 6:08 AM * Karissa Alejandro - 09/12/2022 2:44 AM EDT Pt arrives by triage with cc of wanting placement for drug treatment rt withdrawals. PT states he has been on a 4 day meth cheema and drinking etoh. Pt states he had multiple bottles of rum today. Ptis aox3, resp e/u, skin p/w/d. Pt states pmh updated, vitals as noted. Pt is able to answer questions. Denies si/hi * Karissa Alejandro - 09/12/2022 2:44 AM EDT Pt stepped out of etc documented in this encounterGalion Community [id number] Hospital Discharge instructions* Discharge Instructions* Sher Casas DO - 09/12/2022 11:36 AM EDT Dear Mckinley Roman, Thank you for allowing me and the rest of the Emergency Department staff to care for you today. You were evaluated in the Emergency Department today for alcohol and other substance use. You are being discharged to a substance use facility for rehabilitation. Please go directly to that facility. During your visit today you were screened for medical and surgical emergencies requiring immediate intervention or hospitalization. But today is only one snapshot in time. Emergent medical conditionsand severe diseases can change and progress over time. Please follow up with your primary care physician as needed. If you do not have a primary doctor, you can call your insurance company or call [facility] at [phone] for assistance in finding a doctor. If you do not have insurance, you can go to the finance/registration department for more assistance. Return to the Emergency Department if you experience worsening shortness of breath, chest pain, palpitations, headache, light headedness, nausea/vomiting, or any other concerning symptoms. You should seek immediate medical help for: Worsening pain that is not helped with prescribed pain medicines and/or the recommended doses of over the counter pain medicines such as acetaminophen (Tylenol) or ibuprofen (Motrin/Advil)*. New or worsening chest pain or trouble breathing New or worsening headache, confusion, weakness, or visual changes New or worsening fever (>100.4 F) that does not improve with the recommended doses of over the counter fever treatments such as acetaminophen (Tylenol) or ibuprofen (Motrin/Advil)* for more than afew hours. Any other concerns that you feel could be life, limb, or eye-sight threatening Inability to tolerate fluid intake Continue a healthy diet and drink plenty of clear fluids. Avoid sugary and carbonated beverages. Continue regular exercise as tolerated. If you were given any prescriptions, then take the medications as prescribed. If you require assistance with paying for medications, please visit https://www.[employer]/ where you can find the best prices for prescription and facs-vdd-tzmbqjs medications. Wishing you a speedy recovery, Sher Casas DO * Attachments The following attachments cannot be sent through Care Everywhere. * Alcohol Use Disorder: General Info (Palestinian) documented in this encounterPreOhioHealth Arthur G.H. Bing, MD, Cancer [id number] Emergency department Note* Rylee Velazquez RN - 09/12/2022 11:35 AM EDT [facility] contacted for transport to [facility] for further treatment and evaluation per request of ARIANA. One hour ETA for cab [facility] [id number] Physician Emergency department Note* Sera Barrera MD - 09/12/2022 7:24 AM EDT ATTENDING NOTE This patient was seen in conjunction with the mid-level provider, please see his/her note for full details. I have reviewed the chief complaint and history of present illness and review of systems aswell as the past medical/social/family history sections for this patient. I have examined this patient, and participated in the care of this patient. I have reviewed the pertinent clinical information including physical exam, labs, radiographic studies, and the plan. The patient's medical records were briefly reviewed as available. HPI: Patient presented with complaints of alcohol withdrawal. Patient says that he has been on a 4-day cheema of alcohol abuse and methamphetamines. He says that his last drink was a couple hours ago, has had multiple bottles of rum. He has been hospitalized for withdrawal in the past but has no history of DTs or withdrawal seizures. Denies any current headache, nausea, hallucinations. He does feel a bit tremulous. Review of Systems: Otherwise per documentation Vital Signs: Per chart General: Patient appears non-toxic, alert and oriented, sleeping HENT: Atraumatic, normocephalic, oral mucosa moist Chest: No chest wall tenderness Lungs: Clear to auscultation bilaterally Heart: Regular rate and rhythm Abdomen: Non-distended, soft, non-tender Back: Atraumatic, no CVA tenderness Skin: Warm, dry; no rashes Extremities: No edema, pulses 2+ throughout Neuro: Nonfocal Nursing notes and vitals reviewed. Medical Decision Making and Plan: Mckinley Roman is a 37 year old year-old male who presents to the emergency department for evaluation of possible alcohol withdrawal. Laboratory studies ordered. CIWA order in place, though at this time do not feel the patient requires Ativan given low score. Studies are currently in process, the patient be checked out to the oncoming attending physician team for further evaluation disposition. Diagnosis 1. Alcohol abuse Electronically signed by: Sera Barrera MD, 09/12/2022 7:26 AM [employer] Phone: [phone] Physician Emergency department Note* Conor Park MD - 09/12/2022 6:08 AM EDT TRIAGE CHIEF COMPLAINT: Chief Complaint Patient presents with Drug Problem HPI: Mckinley Roman is a 37 year old male with a past medical history of polysubstance use, alcohol use, who presents to the emergency department with concern for alcohol withdrawal. Patient states that over the last 4 days, he has been using meth and alcohol heavily. His last drink was yesterday evening around 7 PM. He last used meth yesterday around 6 PM. States that he has been drinking multiple realms per day. Patient has had a previously be admitted for alcohol withdrawal. No history of withdrawal seizures. He feels tremulous. Endorses nausea, denies vomiting. Denies any fevers, chills,cough, abdominal pain. External Records Reviewed: None REVIEW OF SYSTEMS: Otherwise negative unless stated above PAST MEDICAL HISTORY: History reviewed. No pertinent past medical history. FAMILY HISTORY: History reviewed. No pertinent family history. SOCIAL HISTORY: Social History Socioeconomic History Marital status: Single Spouse name: Not on file Number of children: Not on file Years of education: Not on file Highest education level: Not on file Occupational History Not on file Tobacco Use Smoking status: Never Smokeless tobacco: Never Vaping Use Vaping Use: Never used Substance and Sexual Activity Alcohol use: Yes Alcohol/week: 40.0 standard drinks Types: 40 Shots of liquor per week Comment: pint of whiskey daily, states today he drank multiple [place] rums Drug use: Not Currently Types: Cocaine, Methamphetamine Comment: last used months ago Sexual activity: Not on file Other Topics Concern Not on file Social History Narrative Not on file Social Determinants of Health Financial Resource Strain: Not on file Food Insecurity: Not on file Transportation Needs: Not on file Physical Activity: Not on file Stress: Not on file Social Connections: Not on file Intimate Partner Violence: Not on file Housing Stability: Not on file SURGICAL HISTORY: History reviewed. No pertinent surgical history. CURRENT MEDICATIONS: No current facility-administered medications for this encounter. Current Outpatient Medications: cyclobenzaprine (FLEXERIL) 10 mg tablet, , Disp: , Rfl: fluticasone propionate (FLONASE) 50 mcg/actuation nasal spray, , Disp: , Rfl: venlafaxine (EFFEXOR) 25 mg tablet, Take 9 Tab by mouth once, Disp: , Rfl: ALLERGIES: Patient has no known allergies. PHYSICAL EXAM: VITAL SIGNS: Vitals: 09/12/22 0229 09/12/22 0543 BP: 139/89 125/74 Pulse: 76 69 Resp: 18 Temp: 98.1 F (36.7 C) SpO2: 98% 96% CONSTITUTIONAL: Patient is very sleepy. Will fall asleep intermittently during evaluation. Awakens to voice. Oriented. Answers questions appropriately. Nontoxic. HENT: Atraumatic, normocephalic, oral mucosa pink and moist, airway patent. Nares patent without drainage. External ears normal. EYES: Conjunctiva clear NECK: Trachea midline, non-tender, supple CARDIOVASCULAR: Normal heart rate, Normal rhythm, No murmurs, rubs, gallops PULMONARY/CHEST: Clear to auscultation, no rhonchi, wheezes, or rales. Symmetrical breath sounds. Non-tender. ABDOMINAL: Non-distended, soft, non-tender - no rebound or guarding. NEUROLOGIC: Non-focal, moving all four extremities, no gross sensory or motor deficits. Tremor feltfinger to finger. Not visible to the eye. EXTREMITIES: No clubbing, cyanosis, or edema SKIN: Warm, Dry, No erythema, No rash ED COURSE / MEDICAL DECISION MAKING: Mckinley Roman is a 37 year old male with a past medical history as discussed above who presents to the emergency department with concern for pulse. On arrival to the emergency department, patient was hemodynamically stable, afebrile and SPO2 is appropriate on room air. Overall, patient appears very tired. He is oriented. He will intermittently fall asleep during evaluation. Awakens to verbal stimuli. Protecting his airway. He denies any drug use or alcohol use this morning. Overall, patient has some mild tactile tremors. Low concern for significant alcohol withdrawal at this time. He will be given thiamine at this time and we will place CIWA precautions in case patient's clinical status worsens. ED course and work-up as documented below. ED Course as of 09/12/22 0851 Sat Sep 12, 2022 0745 EKG on my independent rotation demonstrates a normal sinus rhythm with a ventricular rate of 70. QRS narrow. QTc within normal limits. OR normal within normal limits. No signs of acute ischemia. 0748 Magnesium, Serum Magnesium within normal limits 0748 Phosphorus level Phosphorus within normal limits 0749 Comprehensive Metabolic Panel CMP within normal limits 0749 Complete Blood Count (CBC)(!) CBC within normal limits 0749 GGT GGT within normal limits 0749 Ethanol Ethanol not detected At this time, patient will be signed out ongoing resident. Please see their note for final MDM and disposition. If patient's lab work is normal and continues to remain stable, could consider possibledischarge after social work/sound evaluation. However, patient may also require admission if withdrawal symptoms worsen. Independent Interpretation of Studies: EKG - As above Discussion of Management: Pending Escalation/De-Escalation of Care: Pending Billable Critical Care Time: None or <30 minutes S/d/w patient with attending physician Dr. Barrera FINAL IMPRESSION: 1 --alcohol use 2 --methamphetamine use 3 -- Electronically signed by: Conor Park MD, 09/12/2022 6:08 AM [employer] Phone: [phone] Emergency department Note* Karissa Alejandro - 09/12/2022 2:44 AM EDT Pt arrives by triage with cc of wanting placement for drug treatment rt withdrawals. PT states he has been on a 4 day meth cheema and drinking etoh. Pt states he had multiple bottles of rum today. Ptis aox3, resp e/u, skin p/w/d. Pt states pmh updated, vitals as noted. Pt is able to answer questions. Denies si/hi [id number] Emergency department Note* Karissa Alejandro - 09/12/2022 2:44 AM EDT Pt stepped out of etc [id number] History of Present illness Narrative* Tiki Peres LPC - 01/08/2023 4:10 PM EST [facility] accessed pt chart to assist [facility] worker to print pt Face sheet as they were unable to access it from their account for some reason. documented in this encounterGalion Community [id number] History of Present illness Narrative* No Henry LSW - 09/05/2022 11:38 PM EDT Sw was asked to put resources in the patient's chart for AoD services and homelessness. Sw listed [facility] [employer] and the [facility]. documented in this encounterPreOhioHealth Arthur G.H. Bing, MD, Cancer [id number] Hospital Discharge instructions* Discharge Instructions* Balbir Miller MD - 09/05/2022 11:32 PM EDT Dear Mckinley Roman, Thank you for allowing me and the rest of the Emergency Department staff to care for you today. During your visit today you were screened for potentially life threatening illness and/or disease and have been found to be stable for discharge. However your visit is just a snap shot in time and can change. If at any point in time your illness progresses or symptoms worsen, or if you develop any other concerns that you feel require emergent care, please return to the Emergency Department. Your instructions are included in this document. In addition to those general directions, please dothe following as we discussed: Please return to the emergency room for worsening of her symptoms. If you require assistance with paying for medications, please visit [email or web address] where youcan find the best prices for prescription and/or jkdl-eos-vsovdtd medications. Follow up promptly as noted in this discharge packet. Once again, if you have any worsening of symptoms or any other problems or concerns, please don't hesitate to return to the emergency department. Thank you for trusting me with your care! Wishing you a speedy recovery, Balbir Miller MD documented in this encounterGalion Community [id number] Physician Emergency department Note* Jennifer Suggs MD - 09/05/2022 11:15 PM EDT TRIAGE CHIEF COMPLAINT: Chief Complaint Patient presents with Intoxication HPI: Mckinley Roman is a 37 year old male who presents to the emergency department with intoxication. Patient was found drinking outside a restaurant for hours . Patient was brought in by police after he was escorted off the property. Patient denies any suicidal homicidal ideation. Denies auditory visual hallucinations. States that he wants to leave. States that he has no complaints and that heis fine . REVIEW OF SYSTEMS: Otherwise negative unless stated above PAST MEDICAL HISTORY: History reviewed. No pertinent past medical history. FAMILY HISTORY: History reviewed. No pertinent family history. SOCIAL HISTORY: Social History Socioeconomic History Marital status: Single Spouse name: Not on file Number of children: Not on file Years of education: Not on file Highest education level: Not on file Occupational History Not on file Tobacco Use Smoking status: Never Smokeless tobacco: Never Vaping Use Vaping Use: Never used Substance and Sexual Activity Alcohol use: Yes Alcohol/week: 40.0 standard drinks Types: 40 Shots of liquor per week Comment: pint of whiskey daily Drug use: Not Currently Types: Cocaine, Methamphetamine Comment: last used months ago Sexual activity: Not on file Other Topics Concern Not on file Social History Narrative Not on file Social Determinants of Health Financial Resource Strain: Not on file Food Insecurity: Not on file Transportation Needs: Not on file Physical Activity: Not on file Stress: Not on file Social Connections: Not on file Intimate Partner Violence: Not on file Housing Stability: Not on file SURGICAL HISTORY: History reviewed. No pertinent surgical history. CURRENT MEDICATIONS: No current facility-administered medications for this encounter. Current Outpatient Medications: venlafaxine (EFFEXOR) 25 mg tablet, Take 9 Tab by mouth once, Disp: , Rfl: ALLERGIES: Patient has no known allergies. PHYSICAL EXAM: VITAL SIGNS: Vitals: 09/05/22 2212 BP: 111/70 Pulse: 98 Resp: 17 Temp: 98.7 F (37.1 C) SpO2: 94% CONSTITUTIONAL: Awake, oriented, appears intoxicated HENT: Atraumatic, normocephalic, oral mucosa pink and moist, airway patent. Nares patent without drainage. External ears normal. EYES: Ducted conjunctiva NECK: Trachea midline, non-tender, supple CARDIOVASCULAR: Normal heart rate, Normal rhythm, No murmurs, rubs, gallops PULMONARY/CHEST: Clear to auscultation, no rhonchi, wheezes, or rales. Symmetrical breath sounds. Non-tender. ABDOMINAL: Non-distended, soft, non-tender - no rebound or guarding. NEUROLOGIC: Non-focal, moving all four extremities, no gross sensory or motor deficits. EXTREMITIES: No clubbing, cyanosis, or edema SKIN: Warm, Dry, No erythema, No rash ED COURSE / MEDICAL DECISION MAKING: Mckinley Roman is a 37 year old male who presents to the emergency department with alcohol intoxication. Vitals on presentation within normal notes. Physical exam as above. Patient does appear intoxicated. He has mild slurred speech. However, he denies SI or HI, denies auditory visual hallucinations. Patient is nontoxic-appearing. He is alert and orient x3. He does demonstrate capacity. Patient declines any laboratory evaluation. Patient is requested to remain the emergency department till he is clinically sober however he seems to be agitated with this plan. At this time, patient is pending clinical sobriety prior to discharge. Please refer to oncoming provider'snote for final disposition. Anticipate discharge. Electronically signed by: Jennifer Suggs MD, 09/05/2022 11:15 PM [facility] [employer] Phone: [phone] Emergency department Note* Jennifer Suggs MD - 09/05/2022 11:15 PM EDT TRIAGE CHIEF COMPLAINT: Chief Complaint Patient presents with Intoxication HPI: Mckinley Roman is a 37 year old male who presents to the emergency department with intoxication. Patient was found drinking outside a restaurant for hours . Patient was brought in by police after he was escorted off the property. Patient denies any suicidal homicidal ideation. Denies auditory visual hallucinations. States that he wants to leave. States that he has no complaints and that heis fine . REVIEW OF SYSTEMS: Otherwise negative unless stated above PAST MEDICAL HISTORY: History reviewed. No pertinent past medical history. FAMILY HISTORY: History reviewed. No pertinent family history. SOCIAL HISTORY: Social History Socioeconomic History Marital status: Single Spouse name: Not on file Number of children: Not on file Years of education: Not on file Highest education level: Not on file Occupational History Not on file Tobacco Use Smoking status: Never Smokeless tobacco: Never Vaping Use Vaping Use: Never used Substance and Sexual Activity Alcohol use: Yes Alcohol/week: 40.0 standard drinks Types: 40 Shots of liquor per week Comment: pint of whiskey daily Drug use: Not Currently Types: Cocaine, Methamphetamine Comment: last used months ago Sexual activity: Not on file Other Topics Concern Not on file Social History Narrative Not on file Social Determinants of Health Financial Resource Strain: Not on file Food Insecurity: Not on file Transportation Needs: Not on file Physical Activity: Not on file Stress: Not on file Social Connections: Not on file Intimate Partner Violence: Not on file Housing Stability: Not on file SURGICAL HISTORY: History reviewed. No pertinent surgical history. CURRENT MEDICATIONS: No current facility-administered medications for this encounter. Current Outpatient Medications: venlafaxine (EFFEXOR) 25 mg tablet, Take 9 Tab by mouth once, Disp: , Rfl: ALLERGIES: Patient has no known allergies. PHYSICAL EXAM: VITAL SIGNS: Vitals: 09/05/22 2212 BP: 111/70 Pulse: 98 Resp: 17 Temp: 98.7 F (37.1 C) SpO2: 94% CONSTITUTIONAL: Awake, oriented, appears intoxicated HENT: Atraumatic, normocephalic, oral mucosa pink and moist, airway patent. Nares patent without drainage. External ears normal. EYES: Ducted conjunctiva NECK: Trachea midline, non-tender, supple CARDIOVASCULAR: Normal heart rate, Normal rhythm, No murmurs, rubs, gallops PULMONARY/CHEST: Clear to auscultation, no rhonchi, wheezes, or rales. Symmetrical breath sounds. Non-tender. ABDOMINAL: Non-distended, soft, non-tender - no rebound or guarding. NEUROLOGIC: Non-focal, moving all four extremities, no gross sensory or motor deficits. EXTREMITIES: No clubbing, cyanosis, or edema SKIN: Warm, Dry, No erythema, No rash ED COURSE / MEDICAL DECISION MAKING: Mckinley Roman is a 37 year old male who presents to the emergency department with alcohol intoxication. Vitals on presentation within normal notes. Physical exam as above. Patient does appear intoxicated. He has mild slurred speech. However, he denies SI or HI, denies auditory visual hallucinations. Patient is nontoxic-appearing. He is alert and orient x3. He does demonstrate capacity. Patient declines any laboratory evaluation. Patient is requested to remain the emergency department till he is clinically sober however he seems to be agitated with this plan. At this time, patient is pending clinical sobriety prior to discharge. Please refer to oncoming provider'snote for final disposition. Anticipate discharge. Electronically signed by: Jennifer Suggs MD, 09/05/2022 11:15 PM * Amanda Boggs RN - 09/05/2022 10:47 PM EDT [place] & drink provided * Amanda Boggs RN - 09/05/2022 10:25 PM EDT Ambulatory to BR with steady gait * Amanda Boggs RN - 09/05/2022 10:23 PM EDT MD at bedside * Amanda Boggs RN - 09/05/2022 9:57 PM EDT Arrived to ED via police after patient was found to be sitting at local restaurant for hours until service staff called for assistance having patient escorted off property Patient cooperative with RN, denies complaints. Denies SI/HI. Repeatedly stating I'm sorry to RN * Balbir Miller MD - 09/05/2022 9:56 PM EDT TRIAGE CHIEF COMPLAINT: Chief Complaint Patient presents with Intoxication HPI: Mckinley Roman is a 37 year old male who presents after being brought in by police. Patient was noted to be sitting outside of a local restaurant for hours. Patient was escorted off the property where the patient reported that he drank 1/5 of liquor. Patient denies any SI or HI. Patient has no auditory visual loose Nations. Patient is just requesting to leave at this time. Patient states that he is homeless and has nowhere to go. Patient has no sober ride. Review Of Symptoms Otherwise Negative PAST MEDICAL HISTORY: History reviewed. No pertinent past medical history. FAMILY HISTORY: History reviewed. No pertinent family history. SOCIAL HISTORY: Social History Socioeconomic History Marital status: Single Spouse name: Not on file Number of children: Not on file Years of education: Not on file Highest education level: Not on file Occupational History Not on file Tobacco Use Smoking status: Never Smokeless tobacco: Never Vaping Use Vaping Use: Never used Substance and Sexual Activity Alcohol use: Yes Alcohol/week: 40.0 standard drinks Types: 40 Shots of liquor per week Comment: pint of whiskey daily Drug use: Not Currently Types: Cocaine, Methamphetamine Comment: last used months ago Sexual activity: Not on file Other Topics Concern Not on file Social History Narrative Not on file Social Determinants of Health Financial Resource Strain: Not on file Food Insecurity: Not on file Transportation Needs: Not on file Physical Activity: Not on file Stress: Not on file Social Connections: Not on file Intimate Partner Violence: Not on file Housing Stability: Not on file SURGICAL HISTORY: History reviewed. No pertinent surgical history. CURRENT MEDICATIONS: Home medications reviewed. ALLERGIES: Patient has no known allergies. PHYSICAL EXAM: Vitals: 09/05/22 2212 BP: 111/70 Pulse: 98 Resp: 17 Temp: 98.7 F (37.1 C) SpO2: 94% Physical Exam Constitutional: Appearance: Normal appearance. He is normal weight. HENT: Head: Normocephalic. Mouth/Throat: Mouth: Mucous membranes are moist. Pharynx: Oropharynx is clear. Eyes: Extraocular Movements: Extraocular movements intact. Cardiovascular: Rate and Rhythm: Normal rate and regular rhythm. Pulses: Normal pulses. Heart sounds: Normal heart sounds. No murmur heard. No friction rub. No gallop. Pulmonary: Effort: Pulmonary effort is normal. No respiratory distress. Breath sounds: Normal breath sounds. No wheezing. Abdominal: General: Abdomen is flat. There is no distension. Tenderness: There is no abdominal tenderness. There is no guarding or rebound. Musculoskeletal: General: Normal range of motion. Cervical back: Normal range of motion. Skin: General: Skin is warm and dry. Neurological: General: No focal deficit present. Mental Status: He is alert and oriented to person, place, and time. Psychiatric: Thought Content: Thought content is not paranoid or delusional. Thought content does not include homicidal or suicidal ideation. Thought content does not include homicidal or suicidal plan. Radiology / Procedures: No orders to display Labs Reviewed - No data to display ED COURSE / MEDICAL DECISION MAKING: Mckinley Roman is a 37 year old male who presents to the emergency department with concerns for intoxication. Patient has slurred speech. Patient is slow to answer some question but denies SI HI or AVH. Patient is nontoxic-appearing. Patient is appropriate and is alert and oriented to who he is, where he is, and the year. Patient was amenable to stay in the emergency department until he ady up more. To be signed out to oncoming residents note for final disposition and plan. Anticipated disposition is discharge pending clinical sobering. Strict return precautions discussed. Recommended close outpatient follow-up with PCP. Patient/family/caregiver voiced understanding and agreement with the plan. Medications Administered in the Emergency Dept: Medications - No data to display Medications to be Initiated at Time of Discharge: New Prescriptions No medications on file DECISION to ADMIT / DISCHARGE: 11:59 PM Diagnosis ICD-10-CM ICD-9-CM 1. Alcoholic intoxication without complication (HC CODE) F10.920 305.00 Signed electronically by Balbir Miller MD, 11:59 PM 09/05/22. * Chhaya Newsome RN - 09/05/2022 9:55 PM EDT Bed: O73 Expected date: 09/05/22 Expected time: Means of arrival: Comments: Hold dpd documented in this encounterGalion [facility] [id number] Emergency department Note* Amanda Boggs RN - 09/05/2022 10:47 PM EDT [place] & drink provided [id number] Emergency department Note* Amanda Boggs RN - 09/05/2022 10:25 PM EDT Ambulatory to BR with steady gait [id number] Emergency [facility] Note* Amanda Boggs RN - 09/05/2022 10:23 PM EDT MD at bedside [id number] Emergency department Note* Amanda Boggs RN - 09/05/2022 9:57 PM EDT Arrived to ED via police after patient was found to be sitting at local restaurant for hours until service staff called for assistance having patient escorted off property Patient cooperative with RN, denies complaints. Denies SI/HI. Repeatedly stating I'm sorry to RN [id number] Physician Emergency department Note* Balbir Miller MD - 09/05/2022 9:56 PM EDT TRIAGE CHIEF COMPLAINT: Chief Complaint Patient presents with Intoxication HPI: Mckinley Roman is a 37 year old male who presents after being brought in by police. Patient was noted to be sitting outside of a local restaurant for hours. Patient was escorted off the property where the patient reported that he drank 1/5 of liquor. Patient denies any SI or HI. Patient has no auditory visual loose Nations. Patient is just requesting to leave at this time. Patient states that he is homeless and has nowhere to go. Patient has no sober ride. Review Of Symptoms Otherwise Negative PAST MEDICAL HISTORY: History reviewed. No pertinent past medical history. FAMILY HISTORY: History reviewed. No pertinent family history. SOCIAL HISTORY: Social History Socioeconomic History Marital status: Single Spouse name: Not on file Number of children: Not on file Years of education: Not on file Highest education level: Not on file Occupational History Not on file Tobacco Use Smoking status: Never Smokeless tobacco: Never Vaping Use Vaping Use: Never used Substance and Sexual Activity Alcohol use: Yes Alcohol/week: 40.0 standard drinks Types: 40 Shots of liquor per week Comment: pint of whiskey daily Drug use: Not Currently Types: Cocaine, Methamphetamine Comment: last used months ago Sexual activity: Not on file Other Topics Concern Not on file Social History Narrative Not on file Social Determinants of Health Financial Resource Strain: Not on file Food Insecurity: Not on file Transportation Needs: Not on file Physical Activity: Not on file Stress: Not on file Social Connections: Not on file Intimate Partner Violence: Not on file Housing Stability: Not on file SURGICAL HISTORY: History reviewed. No pertinent surgical history. CURRENT MEDICATIONS: Home medications reviewed. ALLERGIES: Patient has no known allergies. PHYSICAL EXAM: Vitals: 09/05/22 2212 BP: 111/70 Pulse: 98 Resp: 17 Temp: 98.7 F (37.1 C) SpO2: 94% Physical Exam Constitutional: Appearance: Normal appearance. He is normal weight. HENT: Head: Normocephalic. Mouth/Throat: Mouth: Mucous membranes are moist. Pharynx: Oropharynx is clear. Eyes: Extraocular Movements: Extraocular movements intact. Cardiovascular: Rate and Rhythm: Normal rate and regular rhythm. Pulses: Normal pulses. Heart sounds: Normal heart sounds. No murmur heard. No friction rub. No gallop. Pulmonary: Effort: Pulmonary effort is normal. No respiratory distress. Breath sounds: Normal breath sounds. No wheezing. Abdominal: General: Abdomen is flat. There is no distension. Tenderness: There is no abdominal tenderness. There is no guarding or rebound. Musculoskeletal: General: Normal range of motion. Cervical back: Normal range of motion. Skin: General: Skin is warm and dry. Neurological: General: No focal deficit present. Mental Status: He is alert and oriented to person, place, and time. Psychiatric: Thought Content: Thought content is not paranoid or delusional. Thought content does not include homicidal or suicidal ideation. Thought content does not include homicidal or suicidal plan. Radiology / Procedures: No orders to display Labs Reviewed - No data to display ED COURSE / MEDICAL DECISION MAKING: Mckinley Roman is a 37 year old male who presents to the emergency department with concerns for intoxication. Patient has slurred speech. Patient is slow to answer some question but denies SI HI or AVH. Patient is nontoxic-appearing. Patient is appropriate and is alert and oriented to who he is, where he is, and the year. Patient was amenable to stay in the emergency department until he ady up more. To be signed out to oncoming residents note for final disposition and plan. Anticipated disposition is discharge pending clinical sobering. Strict return precautions discussed. Recommended close outpatient follow-up with PCP. Patient/family/caregiver voiced understanding and agreement with the plan. Medications Administered in the Emergency Dept: Medications - No data to display Medications to be Initiated at Time of Discharge: New Prescriptions No medications on file DECISION to ADMIT / DISCHARGE: 11:59 PM Diagnosis ICD-10-CM ICD-9-CM 1. Alcoholic intoxication without complication (HC CODE) F10.920 305.00 Signed electronically by Balbir Miller MD, 11:59 PM 09/05/22. [facility] [employer] Work Phone: [phone] Emergency department Note* Chhaya Newsome RN - 09/05/2022 9:55 PM EDT Bed: O73 Expected date: 09/05/22 Expected time: Means of arrival: Comments: Hold dpd [facility] [id number] NoteEncounter Department: [facility] EM[facility] Progress Notes by SN Zeina Student at 07/14/2022 8:51 AM Author: SN Zeina StudentService: Nursing HandoffAuthor Type: [place] Filed: 07/14/2022 8:59 AMDate of Service: 07/14/2022 8:51 AMStatus: Signed Parts Data Writer: SN Zeina Student ([place]) Pt stated that the BP cuff was uncomfortable/ annoying and took it off. I readjusted the BP cuff on his arm. Pt educated on the importance of getting updated vital signs. Pt acknowledged the importance of it.[facility]06[facility] History of Present illness Narrative* Lona Angelo LSW - 07/14/2022 0223 EDT Social Work Name: Mckinley Roman : 1985 Date of referral: 07/14/2022 Presenting situation: transportation Social work activity/assessment: Die AssemblerNelli Angelo was asked to arrange transportation of patient to [facility]. Plan: Die AssemblerNelli Angelo contacted [employer] and requested transportation. Was informed it would be a 1 -1.5 hour wait. Die AssemblerNelli Angelo informed Tushar Villafuerte RN transportation has been arranged. Social Nelli Angelo received a call from ED asking if [employer] could let them know when they arrive. Die AssemblerNelli Angelo Contacted [employer] again and asked them to contact [phone] when they arrive. Thank You, Lona Angelo, ROSSANA, PRE BILLING SPECIALIST Senior Office Agent [place], [place] [address] documented in this encounterK[facility]06-[facility] Emergency department Note* Tushar Villafuerte RN - 07/14/2022 0206 EDT Pt states he needs a taxi so he can go to [facility]. After hours rn social work contacted [facility] Emergency department Note* Tushar Villafuerte RN - 07/14/2022 0206 EDT Pt states he needs a taxi so he can go to [facility]. After hours rn social work contacted documented in this encounterKet[facility]06-[facility]-2023 Note* ED Attending Note - Xiomara Ryan MD - 07/14/2022 0201 EDT CSN: [id number] PATIENT NAME: Mckinley Roman DATE OF : 1985 Patient seen in [facility] Emergency Department for: Chief Complaint Patient presents with Alcohol intoxication Pt wants help for alcoholism Dizziness 37yo male came to the ED for help with alcoholism. States that he has nowhere to go, is not from this area, has drank his life away. Denies cp or sob. Ambulatory on arrival Review of Systems Review of Systems Constitutional: Negative for activity change, appetite change and fever. Respiratory: Negative for cough and shortness of breath. Cardiovascular: Negative for chest pain. Gastrointestinal: Negative for abdominal pain and vomiting. Neurological: Negative for syncope and light-headedness. Allergies Allergies Allergen Reactions Seasonal [Environmental] Outpatient Medications loratadine (CLARITIN PO) Take by mouth. fluticasone propionate (FLONASE) 50 mcg/actuation nasal spray for TOPICAL USE Apply to affected area. venlafaxine HCl (EFFEXOR PO) Take by mouth. Past Medical History No past medical history on file. Past Surgical History No past surgical history on file. Family/Social History Patient currently lives with:: (pt is homeless) Has patient been exposed to:: None Physical Exam Patient's Vital Signs were: Vitals: 07/14/22 0016 BP: (!) 132/90 Blood Pressure Location: Left arm;Manual Pulse: 96 Resp: 18 Temp: 36.8 C (98.2 F) SpO2: 97% Weight: 109 kg Physical Exam Vitals and nursing note reviewed. Constitutional: General: He is not in acute distress. Appearance: He is well-developed. He is not toxic-appearing. HENT: Head: Normocephalic and atraumatic. Mouth/Throat: Pharynx: No oropharyngeal exudate. Eyes: Conjunctiva/sclera: Conjunctivae normal. Pupils: Pupils are equal, round, and reactive to light. Cardiovascular: Rate and Rhythm: Normal rate and regular rhythm. Heart sounds: No murmur heard. Pulmonary: Effort: Pulmonary effort is normal. No respiratory distress. Breath sounds: Normal breath sounds. No wheezing or rales. Chest: Chest wall: No tenderness. Abdominal: General: Bowel sounds are normal. There is no distension. Palpations: Abdomen is soft. There is no mass. Tenderness: There is no abdominal tenderness. There is no guarding. Musculoskeletal: Cervical back: Normal range of motion and neck supple. No rigidity. Skin: General: Skin is warm and dry. Coloration: Skin is not pale. Findings: No erythema or rash. Neurological: Mental Status: He is alert. Psychiatric: Behavior: Behavior is cooperative. Procedures Medical Decision Making and ED Plan This patient is a 37 y.o. who presents with Chief Complaint of Chief Complaint Patient presents with Alcohol intoxication Pt wants help for alcoholism Dizziness Pt answering questions appropriately, denies acute medical issues Based on all data reviewed, the age of the patient, and the reassessments performed I feel the most likely cause of the patient's symptoms are alcohol dependence. My Treatment Plan is explained that there are no emergent medical problems in need of acute stabilization. Pt encouraged to seek care at adult facility Final Impression: alcohol dependence Electronically signed by: Xiomara Ryan MD 07/14/2022 2:01 Attending Signature [facility] Work Phone: [phone] Hospital Discharge instructions* Discharge Instructions* Xiomara Ryan MD - 07/14/2022 2:01 EDT Seek care at an adult institution. documented in this encounterK[facility]06-06-2023 Miscellaneous Notes* ED Attending Note - Xiomara Ryan MD - 07/14/2022 0201 EDT CSN: [id number] PATIENT NAME: Mckinley Roman DATE OF : 1985 Patient seen in [facility] Emergency Department for: Chief Complaint Patient presents with Alcohol intoxication Pt wants help for alcoholism Dizziness 37yo male came to the ED for help with alcoholism. States that he has nowhere to go, is not from this area, has drank his life away. Denies cp or sob. Ambulatory on arrival Review of Systems Review of Systems Constitutional: Negative for activity change, appetite change and fever. Respiratory: Negative for cough and shortness of breath. Cardiovascular: Negative for chest pain. Gastrointestinal: Negative for abdominal pain and vomiting. Neurological: Negative for syncope and light-headedness. Allergies Allergies Allergen Reactions Seasonal [Environmental] Outpatient Medications loratadine (CLARITIN PO) Take by mouth. fluticasone propionate (FLONASE) 50 mcg/actuation nasal spray for TOPICAL USE Apply to affected area. venlafaxine HCl (EFFEXOR PO) Take by mouth. Past Medical History No past medical history on file. Past Surgical History No past surgical history on file. Family/Social History Patient currently lives with:: (pt is homeless) Has patient been exposed to:: None Physical Exam Patient's Vital Signs were: Vitals: 07/14/22 0016 BP: (!) 132/90 Blood Pressure Location: Left arm;Manual Pulse: 96 Resp: 18 Temp: 36.8 C (98.2 F) SpO2: 97% Weight: 109 kg Physical Exam Vitals and nursing note reviewed. Constitutional: General: He is not in acute distress. Appearance: He is well-developed. He is not toxic-appearing. HENT: Head: Normocephalic and atraumatic. Mouth/Throat: Pharynx: No oropharyngeal exudate. Eyes: Conjunctiva/sclera: Conjunctivae normal. Pupils: Pupils are equal, round, and reactive to light. Cardiovascular: Rate and Rhythm: Normal rate and regular rhythm. Heart sounds: No murmur heard. Pulmonary: Effort: Pulmonary effort is normal. No respiratory distress. Breath sounds: Normal breath sounds. No wheezing or rales. Chest: Chest wall: No tenderness. Abdominal: General: Bowel sounds are normal. There is no distension. Palpations: Abdomen is soft. There is no mass. Tenderness: There is no abdominal tenderness. There is no guarding. Musculoskeletal: Cervical back: Normal range of motion and neck supple. No rigidity. Skin: General: Skin is warm and dry. Coloration: Skin is not pale. Findings: No erythema or rash. Neurological: Mental Status: He is alert. Psychiatric: Behavior: Behavior is cooperative. Procedures Medical Decision Making and ED Plan This patient is a 37 y.o. who presents with Chief Complaint of Chief Complaint Patient presents with Alcohol intoxication Pt wants help for alcoholism Dizziness Pt answering questions appropriately, denies acute medical issues Based on all data reviewed, the age of the patient, and the reassessments performed I feel the most likely cause of the patient's symptoms are alcohol dependence. My Treatment Plan is explained that there are no emergent medical problems in need of acute stabilization. Pt encouraged to seek care at adult facility Final Impression: alcohol dependence Electronically signed by: Xiomara Ryan MD 07/14/2022 2:01 Attending Signature documented in this encounterK[facility]06-03-2023 Hospital Discharge instructions* Discharge Instructions* Alonzo Harrell MD - 07/11/2022 11:25 AM EDT Images from the original note were not included. New Providers in the [place] Dr. Waldemar Velazco [facility]. Internal Medicine [address] [facility] [place] [address] [place] [address] [phone] Dr. Niurka Mcnamara NP [facility] [address] [place] [address] [place], [place] [id number] [phone] DAYAN Farris NP [facility] [address] [place] [address] [place] [address] [phone] Resources for Assistance with Substance Abuse Marion Humphrey [facility] [place], [place] [id number] [email or web address] Provides comprehensive treatment for alcohol and drug abuse and dependency, gender specific treatment for women and their children, and medication assisted treatment as well as case management services. Offers both intensive and non-intensive outpatient services and ambulatory detoxification for men and women, as well as non-medical residential treatment for men. Walk-in appointments are offered Wednesday through , starting at 11:00am on a first come-firstserve basis. For all appointments - please be sure to bring proof of residency, identification, proof of income (if applicable) and insurance card (if applicable). (Examples include: State ID or Aircraft De Icer Installer s License with current address or utility bill with name and current address) Services are covered by Medicaid and many other insurance plans. Special assistance may be available for those who qualify. Locations: Outpatient services for men @ [address] [place], [place] Residential services for men @ [address] [place], [place] Outpatient services for women @ [address] [place], [place] Two additional transitional housing programs for women and children Assessments Assessments are conducted to gather the necessary information to provide customers with the most beneficial services plan available. They can take up to two hours. Upon completion, the customer and the therapist will develop a treatment plan that meets the customer s needs. Chemical Dependency Education Designed for individuals who have had consequences related to their drug use, but do not have a dependency diagnosis. The program meets once a week for two hours for four weeks. It teaches about the emotional, physical and mental aspects related substance use and abuse. It also provides informationand techniques to improve coping skills. Outpatient Treatment Consists of a combination of services that total less than 9 hours per week. This program is typically designed for individuals who have had previous treatment and do not need intensive services and structure to assist with maintaining abstinence. Intensive Outpatient Treatment Consists of 9 hours of services or more on a weekly basis designed to provide structure and in-depth counseling and information to help clients stabilize in an outpatient setting. Family Dependency Drug Court [facility] in conjunction with Juvenile Court and Family and Children s Services operate a Family Dependency Drug Court Program for clients who are at risk of losing custody of their children due to their substance use. Substance Abuse Violence Intervention Offers an intensive program designed specifically for domestic violence offenders with substance abuse histories. The [facility]STINA project s primary goal is to reduce the incidence of domestic violence by working [id number] with community social service agencies, law enforcement, domestic violence offenders, and when appropriate, their families. The treatment is certified through [place] [facility] Criminal Justice Programs [facility] has a fpc therapist and showcase maker located in the [facility]. Judges and probation officers rely on the therapist to accurately assess and make recommendations for treatment for those individuals who are incarcerated in the fpc. Referrals are often made directly from fpc to residential treatment for both men and women. [facility] also has one therapist working within the [facility] Reentry program. Substance Abuse treatment services are provided for ex-offenders returning to [facility] to assist with facilitating a successful transition back into the community. In addition to the services listed above, [facility] offers transitional housing for women and their children. For more information regarding transitional housing call [phone] ext. [phone]. [facility] Offers treatment for alcohol, drug, and tobacco addiction Families of Addicts [facility] (TATIANNA) [facility] [address] [place] [phone] http://www.foamilies.org [email or web address] A non-profit organization in [place], [place] that educates, empowers and embraces families, friends and individuals struggling with addiction to rebuild families and transform lives. Works to reduce the stigma of addiction, ensure availability of adequate treatment and recovery support services, as well as to influence public opinion and policy regarding the value of recovery. Holds weekly support meetings where families and individuals affected by addiction can come for support, friendship and education. The sharing of our experiences, strength and hope offer a pathway topeace. [facility] meets weekly on Wednesday evenings (6:30 to 8 pm) at [address] [place] [address]. [address] [place] [address] A transitional living center for men in early stages of substance abuse recovery. Purpose is to provide safe clean housing in a sober environment for men committed to their recovery. Assists residents in finding employment when necessary. Mental Health Services for [facility] Provides a comprehensive array of mental health counseling and psychiatric services to adults, youth and children, including inpatient hospitalization. Limited primary health care is available to eligible clients. Provides alcohol and drug treatment services for adolescents. Adult Services [address] [phone] www.[facility].org [facility] Programs [address] [phone] Children & Adolescents [address] [phone] [facility] [address] [place] [phone] For additional information and referrals, dial . Residents can obtain information at 1 about hospitals, doctors, the nearest food pantry, utility services, or a variety of other types of resources. The number is available for non-emergency assistance 24 hours a day. Alternate Numbers: [facility]: [facility]: [facility]: Toll-Free: * Attachments The following attachments cannot be sent through Care Everywhere. * Substance Use Disorder (Palestinian) [facility] [employer] Work Phone: [phone]) 254-890305-01-2023 History of Present illness Narrative* EMANUEL Valentin - 06/08/2022 4:22 PM EDT Spoke with [facility] liaison, Indu, . Informed him [facility] admission phone is going to , and no one has called back re: a transport time. Informed him this clinician's shift has ended, and the ED rn social work will now be the transport point of contact. Indu reports [facility] will call ED social work with transport time. Primary team and ED social work informed of the above. GEETHA Valentin ED Addiction Medicine Consult Service Available Wednesday-Wednesday, 8-4 Reachable by Bensata chat or phone, at [phone] Recovery is for everyone. Every person, every family, every community. * EMANUEL Valentin - 06/08/2022 3:00 PM EDT Psychiatry note faxed to [facility]. Awaiting reply from their admissions team. 15:21: Call to [facility], staff reports they did not receive the fax. Records sent again as requested. GEETHA Valentin ED Addiction Medicine Consult Service Available Wednesday-Wednesday, 8- Reachable by Bens[employer] chat or phone, at [phone] Recovery is for everyone. Every person, every family, every community. * Oc Hamilton - 06/08/2022 10:45 AM EDT This Certified Peer Recovery Supporter (CPRS) went to see at chairside. I introduced myself and explained my role. He asked how long it would be before psych would be seeing him. I explainedthat it was busy and they would be there to see him soon. He explained he always walks out of treatment due to cravings. He states that his certificate and social security card are at [facility] and was wondering how to get them. I encouraged him to call them and ask if they are holding them for him. We shared some lived experiences. He appears to be anxious about the next steps. I reassured him he is making the right decision. I provided support, inspiration and encouragement. PRS will work in conjunction with [Addiction Medicine or MAT] Team for any care coordination concerns. BABATUNDE Orourke, [facility] CERTIFIED PEER RECOVERY SUPPORTER ED Addiction Medicine Consult Service Available Wednesday-, 8-4 Reachable by Druidly or phone, at [phone] ERIKA EPPERSON - SHARE EXPERIENCE - ENCOURAGE RECOVERY documented [facility] Note* EMANUEL Partida - 06/08/2022 4:15 PM EDT Reason for Consult: Assistance with transportation to [facility] (detox/JIMMY tx) Consulted By: ARIANA Tabor (Addiction Medicine) Assessment SW contact by Sharona with Addiction Medicine for assistance in arranging a Lyft for patient to get todetox/JIMMY tx at [facility] ([address] [place] [phone]; ; ). Action Plan ARIANA spoke with Francisco with [facility]. Admissions at facility has patient arriving at 7pm butthey can accept earlier if transportation can be arranged. Francisco asked that ARIANA call back to inform of an ETA. ARIANA ordered Lyft to transport patient to the above address. ARIANA updated med team. [facility] and stated patient's admission time would be around 6pm or whenever patient arrives. Patient was successfully picked up by Lyft. Lyft Details: Aircraft De Icer Installer: Meliuz Vehicle: KoalaDeal Plate: [id number] ROSSANA Montalvo, EMANUEL Medical Social Work Please note that I am a float SW and may not be covering the same unit each day. Please reach out to the floor/unit SW for additional needs/concerns. Contact info for weekend CM and SW staff (8:00am - 4:30pm): Brain and Spine: CCM: [phone] / Die Assembler: [phone] Acosta: CCM: [phone] / Die Assembler: [phone] Chuck: CCM : [phone] / Die Assembler: [phone] Lexi/MICU/PCU Karely: CCM: [phone] / Die Assembler: [phone] [facility] Emergency department Note* EMANUEL Partida - 06/08/2022 4:15 PM EDT Reason for Consult: Assistance with transportation to [facility] (detox/JIMMY tx) Consulted By: ARIANA Tabor (Addiction Medicine) Assessment SW contact by Sharona with Addiction Medicine for assistance in arranging a Lyft for patient to get todetox/JIMMY tx at [facility] ([address] [place] [address]; ; ). Action Plan ARIANA spoke with Francisco with [facility]. Admissions at facility has patient arriving at 7pm butthey can accept earlier if transportation can be arranged. Francisco asked that ARIANA call back to inform of an ETA. ARIANA ordered Lyft to transport patient to the above address. ARIANA updated med team. [facility] was notified and stated patient's admission time would be around 6pm or whenever patient arrives. Patient was successfully picked up by Lyft. Lyft Details: Aircraft De Icer Installer: [employer] Vehicle: KoalaDeal Plate: [id number] ROSSANA Montalvo, EMANUEL Medical Social Work Please note that I am a float SW and may not be covering the same unit each day. Please reach out to the floor/unit SW for additional needs/concerns. Contact info for weekend CM and SW staff (8:00am - 4:30pm): Brain and Spine: CCM: [phone] / Die Assembler: [phone] Acosta: CCM: [phone] / Die Assembler: [phone] Chuck: CCM : [phone] / Die Assembler: [phone] Lexi/MICU/PCU Karely: CCM: [phone] / Die Assembler: [phone] * UZIEL Francis - 06/08/2022 3:56 PM EDT Belongings returned to patient. * Darleen Rigo, RN - 06/08/2022 4:50 AM EDTSummary: Patient behavior Patient frequently asking about when someone from psych is going to be here to see him, asking whatis taking so long. Inspector Final Assembly Mechanical has explained that it is unknown when they will be around at this time. * Darleen Sierra RN - 06/08/2022 12:24 AM EDTSummary: Patient behavior Patient approached desk to ask what time it was. Inspector Final Assembly Mechanical expressed the time. Patient again stated so I'm going to be down here for three days because you guys are so fucking slow . Inspector Final Assembly Mechanical explained that there is no definite time frame at this time. Patient laying on the floor in the common area at this time. * Darleen Sierra RN - 06/07/2022 11:56 PM EDTSummary: Patient behavior Patient yelling out at staff, any word on anything yet? Inspector Final Assembly Mechanical informed him that we are indeed still waiting for psych at this time. Patient states this aldana is fucking stupid . Patient also stated so what I should expect to be here about three days? Since this place is so fucking slow . Writerexpressed it was unknown what time frame we are looking at, at this time. * Darleen Sierra RN - 06/07/2022 11:42 PM EDTSummarmaia: Patient behavior Patient repeatedly coming to desk asking what we are waiting on, what is taking so long and being rude. Inspector Final Assembly Mechanical informed patient that we are now waiting on psych to see him and that takes time. * Darleen Sierra RN - 06/07/2022 10:57 PM EDTSummary: Patient request Patient being rude and demanding to speak to a doctor. This is a third time a doctor has seen him. * Darleen Sierra RN - 06/07/2022 10:48 PM EDTSummary: Patient request Patient requesting something for anxiety. Inspector Final Assembly Mechanical notified provider. Provider prescribed atarax. Patient upset because he was not prescribed Ativan and refused to take the Atarax. Notified provider. * UZIEL Wolf - 06/07/2022 10:26 PM EDT Since arriving to Psychiatric care area patient has requested multiple food items, several drinks, multiple requests for admission to in patient care and medication requests. * Augustus Galan MD - 06/07/2022 10:04 PM EDT ED Attending Chief Complaint Patient presents with Mental Health Problems Past Medical History: Diagnosis Date Bipolar 1 disorder Depression Mckinley Roman is a 37 y.o. male. [place] from [facility] for SI; ?drugs BP 131/75 Pulse 98 Temp 98.3 F (36.8 C) (Oral) Resp 18 Ht 1.803 m (5' 11 ) SpO2 95% BMI33.47 kg/m Smoking Status Every Day Nad;nontoxic; mmm; seems intoxicated; denying SI now; no visible injury Medical Decision Making Amount and/or Complexity of Data Reviewed Labs: ordered. Risk OTC drugs. On 06/07/2022 I saw and examined the patient. I discussed the history and examination with the resident and agree with the plan of care. Augustus Galan MD 06/07/222206 * Darleen Sierra RN - 06/07/2022 10:03 PM EDTSummary: Patient behavior Patient asking for Ativan after seeing another patient receiving medication. Let him know that the doctor has to order it for him and he has already seen the medical team. Inspector Final Assembly Mechanical expressed that he should have notified the doctor at that time if he wanted something for anxiety. Patient then called parts data writer josé manuel hinton and requested to see the doctor again. Inspector Final Assembly Mechanical has already spoken to patient about not being rude. Provider notified about his Ativan request. * UZIEL Wolf - 06/07/2022 10:01 PM EDT Pt becoming verbally aggressive with RN at this time. Attempts to verbally de- escalate unsuccessful * UZIEL Wolf - 06/07/2022 9:57 PM EDT Patient attempting to staff split. Asking Rn and both apricot washer the same question multiple times, in attempt to get different answers. Pt educated by TW that only psychiatry can make decisions on placement for Psychiatric care. * Andrew Montes MD - 06/07/2022 9:52 PM EDT EMERGENCY DEPARTMENT ENCOUNTER CHIEF COMPLAINT Mental Health Problems HPI Mckinley Roman is a 37 y.o. male with a history of polysubstance use and Bipolar I disorder who presents as a pink slip from [facility] with reports of SI and self harm. Per documentation, patient walked up to [facility] and reported suicidal ideation, and when asked if he would like to go to the hospital, responded yes. There was no further documentation on details, etc. On arrival here, patient is unclear about the events leading to his pink slip and says that he is not suicidal, homicidal, or responding to AVH at this time and would like to go home if able. Furthermore, he denies any specific plan or access to firearms at this time. Patient's history appears all over the place - at times stating that he has been sober for several weeks before changing his story to say his last drink was several hours ago. Is unable to quantify his alcohol use but chart review states up to 20 drinks/day - has required a phenobarbital taper in August 2021. Says that he has been in and out of [facility] - most recently yesterday? Says that he does not want any help with resources for substance use at this time. Says that he is currently living with a friend and denies housing instability. Denies any other drug use at time of interview. Says that his only medication is effexor 225 mg daily (does have many meds on dispense report, but no sustaining fills) which he took on the morning of presentation. Update 2300: Patient now reporting that he feels he needs help for severe depression and alcohol use. States that reason he called the police today was because he was in fact having SI, and has been attempting toself harm himself with cutting, primarily his L arm - most recently this morning. When asked why his story changed, he says I don't know, I was embarrased. Now also endorsing severe anxiety, and specifically requesting ativan - when asked why he would not take vistaril he says that this would notwork for him. Says that last drink was several hours ago. Identify Protective Factors (Protective factors may not counteract significant acute suicide risk factors) Internal: Frustration tolerance External: Supportive social network of family or friends ED-SAFE PATIENT SECONDARY SCREENER (ESS-6) This tool should be administered by the provider after a patient endorses active ideation in the past 2 weeks (PSS Item 2= Yes) OR suicide attempt within the past 6 months (PSS Item 3= within past 6 months). Assess the following six indicators using all data available to you, including patient self-report,collateral information, medical record review, and current observations. Each Yes gets a score of1 Positive on both safety screener (PSS-3) items - active ideation with a past attempt. Source: safety screening (PSS-3), documented on chart yes Recurrent or current suicide plan* Suggested wording: Have you been thinking about how you might kill yourself? no Recurrent or current intent to act on ideation* Suggested wording: Have you had some intention of acting on your thoughts? yes Lifetime psychiatric hospitalization Suggested wording: Have you ever been hospitalized for a mental health or substance abuse problem? yes Pattern of excessive substance abuse Suggested Wording: Has drinking or drug abuse ever been a problem for you? Or positive on CAGE or other standardized substance use screener. yes Current Irritability, agitation or aggression Source: clinical observation, collateral report. yes A. Assign a score of 1 for each Yes above and combine to obtain a total score. Score: /6 B. *Critical Item Review: - Item 2: Suicide plan present? no - Item 3: Intent present yes - Current attempt? no The Purpose of this tool is initial stratification of clinical decision-making and risk mitigation.Not highly accurate prediction of suicide. Stratification instructions are below Stratification and Care Recommendations Check one box in each row based on the score in A and the critical item status in B: Negligible Mild Risk Moderate Risk High Risk A. Score Not applicable (negative on primary screener) ___ 0-2 ____ 3-4 ___ 5-6 B. Critical Items ___ no current attempt ___ no current attempt ___ no current attempt ___ current attempt ___ no suicide plan or intent ___ no suicide plan or intent ___ suicide plan or intent ___ suicide plan and intent 2. Conclude risk level based on HIGHEST level category endorsed on any row: ___mild ___moderate __high 3. Enact mitigation and recommend care appropriate to risk level: Mitigation and Recommended Care Mild Moderate High Constant observation not required Constant observation (1:several), make room safe recommended Constant observation (1:1) and make room safe or ligature resistant room recommend Behavioral health evaluation volutnary Behavioral health evaluation recommended Behavioral health evaluation recommended Suicide Prevention and Mental Health discharge resources Suicide Prevention and Mental Health discharge resources Suicide Prevention and Mental Health discharge resources Safety plan recommended at discharge Safety plan recommended at discharge Safety plan recommended at discharge PAST MEDICAL HISTORY Past Medical History: Diagnosis Date Bipolar 1 disorder Depression SURGICAL HISTORY No past surgical history on file. CURRENT MEDICATIONS Current Outpatient Medications Medication Sig folic acid 1 MG tablet Take 1 tablet by mouth daily. loratadine 10 MG tablet Take 1 tablet by mouth daily. multivitamin w/ minerals tablet Take 1 tablet by mouth daily. thiamine 100 MG tablet Take 1 tablet by mouth daily. trazodone 150 MG tablet Take 1 tablet by mouth at bedtime. (Patient taking differently: Take 50 mg by mouth at bedtime.) venlafaxine 75 MG Cap SR 24HR capsule XR Take 1 capsule by mouth daily with breakfast. (Patient taking differently: Take 2 capsules by mouth daily with breakfast.) ALLERGIES Allergies Allergen Reactions Tuberculin Tests Rash *Seasonal Runny Nose Family history reviewed and noncontributory other than: Family History Problem Relation Age of Onset Stroke Mother Coronary Artery Disease Mother Social history reviewed and noncontributory other than: Social History Socioeconomic History Marital status: Single Spouse name: Not on file Number of children: Not on file Years of education: Not on file Highest education level: Not on file Occupational History Not on file Tobacco Use Smoking status: Every Day Types: Cigarettes Smokeless tobacco: Never Vaping Use Vaping Use: Never used Substance and Sexual Activity Alcohol use: Yes Comment: Lots of whiskey Drug use: Yes Types: Methamphetamines, Crack cocaine, Cocaine, Benzodiazepines Sexual activity: Not Currently Other Topics Concern Not on file Social History Narrative Not on file Social Determinants of Health Financial Resource Strain: Not on file Food Insecurity: Not on file Transportation Needs: Not on file Physical Activity: Not on file Stress: Not on file Social Connections: Not on file Intimate Partner Violence: Not on file Housing Stability: Not on file REVIEW OF SYSTEMS ROS negative except as discussed in HPI PHYSICAL EXAM VITAL SIGNS: BP 131/75 Pulse 98 Temp 98.3 F (36.8 C) (Oral) Resp 18 Ht 1.803 m (5' 11 ) SpO2 95% BMI 33.47 kg/m Smoking Status Every Day Physical Exam Vitals reviewed. Constitutional: General: He is not in acute distress. Appearance: Normal appearance. He is not toxic-appearing. Cardiovascular: Rate and Rhythm: Normal rate and regular rhythm. Pulses: Normal pulses. Heart sounds: Normal heart sounds. No murmur heard. No friction rub. No gallop. Pulmonary: Effort: Pulmonary effort is normal. No respiratory distress. Breath sounds: Normal breath sounds. No wheezing or rales. Abdominal: General: Abdomen is flat. Bowel sounds are normal. Palpations: Abdomen is soft. Skin: Capillary Refill: Capillary refill takes less than 2 seconds. Findings: Lesion (L forearm with cutting lopez) present. Neurological: General: No focal deficit present. Mental Status: He is alert. Psychiatric: Comments: Affect appears to be off, patient inconsistent with statements. No SI or HI originally but later reports thoughts to harm self but nobody else Medical Decision Making 37 yo M with history of polysubstance use, Bipolar I disorder (not actively on therapy) presenting on pink slip by [facility] for suicidal ideation. At this time patient denies symptoms but does appear potentially intoxicated. Given his pink slip, will obtain drug and alcohol screen for initial triage. Heis otherwise well appearing and not in any acute distress or responding to internal/external stimuli. If UDS or EtOH are positive will keep patient to sober up and determine if symptoms return, pendingdecision on psych consultation. Update 2300: patient now reporting desire to seek help and reports that he has been cutting himself, showing us his recent wounds that do not appear infected or open at this time. His alcohol level returned elevated, UDS negative. Would be in favor of letting patient sober up and re-evaluate prior to making decision on psych evaluation. Amount and/or Complexity of Data Reviewed Labs: ordered. Decision-making details documented in ED Course. Risk OTC drugs. Prescription drug management. ED Course as of 06/08/22 0710 Sun Jun 07, 2022 2310 ALCOHOL (ETHANOL),BLOOD(!) EtOH elevated, UDS negative - will wait for patient to sober up and re-evaluate Mon June 08, 2022 0120 Re-evaluated patient, found to be now reporting SI with self-harming behaviors. Psych consultation placed Andrew Montes MD Resident 06/07/22 2210 Andrew Montes MD Resident 06/07/22 2332 Andrew Montes MD Resident 06/07/22 2337 * UZIEL Wolf - 06/07/2022 9:40 PM EDT Patient arrives from triage, changes willingly but becomes verbally confrontational with staff whenusing limit setting and unit expectations. * Sher Alvarez RN - 06/07/2022 9:27 PM EDT Pt presents to the ED pink slipped. Pt endorsed SI to CFD and patient is pink slipped. Pt states that he has 20+ drinks daily. NAD, A&Ox4, GCS15, Respirations even and unlabored. [facility]* UZIEL Francis - 06/08/2022 3:56 PM EDT Belongings returned to patient. [facility]05-01-2023 Consult note* EMANUEL Valentin - 06/08/2022 3:45 PM EDT Per Psychiatry and Primary teams, patient is cleared for DC into JIMMY treatment. Vivitrol injection has been given, today, 06/08/22. Spoke with [facility]. Patient is accepted into detox treatment, and psych records have been reviewed. MAR showing Vivitrol also faxed to them. [facility] [address] [place] [address] Awaiting callback from facility to obtain admission time. EMANUEL Valentin-S ED Addiction Medicine Consult Service Available Wednesday-Wednesday, 8-4 Reachable by Bensata chat or phone, at [phone] Recovery is for everyone. Every person, every family, every community. [facility]05-01-2023 Consult note* EMANUEL Valentin - 06/08/2022 3:45 PM EDT Per Psychiatry and Primary teams, patient is cleared for DC into JIMMY treatment. Vivitrol injection has been given, today, 06/08/22. Spoke with [facility]. Patient is accepted into detox treatment, and psych records have been reviewed. MAR showing Vivitrol also faxed to them. [facility] [address] [place] [address] Awaiting callback from facility to obtain admission time. GEETHA Valentin ED Addiction Medicine Consult Service Available Wednesday-Wednesday, 8-4 Reachable by Druidly or phone, at [phone] Recovery is for everyone. Every person, every family, every community. * EMANUEL Valentin - 06/08/2022 11:23 AM EDT Spoke with [facility] admissions team, Baldo. Patient is accepted for admission pending psych clearance. A bed is being held for him for TODAY. Psychiatry updated on the above. 2:40 PM Call back to [facility], informed them psychiatry consult remains in progress. Admissions confirmed bed is being held, and states their clinical team will need to review the psychiatry note before final acceptance for admission. GEETHA Valentin ED Addiction Medicine Consult Service Available Wednesday-Wednesday, 8-4 Reachable by Druidly or phone, at [phone] Recovery is for everyone. Every person, every family, every community. * EMANUEL Valentin - 06/08/2022 9:38 AM EDT Received phone call from patient. This clinician (ED Addiction Med Die Assembler[facility]. Patient states he's no longer feeling suicidal, and would like to be sent to a residential JIMMY tx program. Confronted patient re: report of SI earlier today, and denial of SI now. Patient states I thought it'd be easier to just say I was suicidal so I could stay down here. But, that's not the case. I want to go to treatment. I need to go to treatment. Reports the cuts on his arm are due to falling off a ladder while intoxicated, and denies he intentionally harmed himself. Reports he's been to several local programs, including [facility] multiple times. States I just keep walking out. I need to stop doing that. Asked him what gets in the way of him staying, and he reports he's struggling with cravings, not being able to handle stress, and thinking of his parents. Reports the first year anniversary of his father's was May 2022, and the second year anniversary of his mother's is 2022. Reviewed options available, and explained Psychiatry consult is pending. Patient agreeable to referral to [facility] in [place], [place]. He is instructed to complete a phone screening today at 9:50 AM. Plan/Progress: 1. Inpatient withdrawal management admission followed by residential JIMMY, PENDING psych clearance. 2. See Addiction Med REZA note for documentation/recommendations re: Medication for Alcohol Use Disorder. 3. Patient completing phone screening at [facility]. This clinician faxed referral documents, awaiting returned call. 4. Primary team and psychiatry updated on the above. Will continue to follow. EMANUEL Valentin-Bucky ED Addiction Medicine Consult Service Available Wednesday-Wednesday, 8-4 Reachable by Bensata chat or phone, at [phone] Recovery is for everyone. Every person, every family, every community. * FILI Alas - 06/08/2022 7:00 AM EDTAssociated Order(s): CONSULT ED ADDICTION MEDICINE CONSULT ED ADDICTION MEDICINE Consult performed by: FILI Alas Consult ordered by: Young Banegas MD INITIAL CONSULT Patient: Mckinley Roman, 1985, [id number] Provider: FILI Alas, ED Addiction [phone] Encounter date: 06/08/2022 Reason for Consult: Assessment of substance use IMPRESSION/PLAN Alcohol Withdrawal Based on PAWSS (6), Mr. Roman's risk of serious withdrawal complications is high. Recommend the following: o Continue CIWA protocol o Continuing multivitamin, thiamine, folate o If CIWA does not improve, or worsens, recommend phenobarbital. He was treated for alcohol withdrawal with phenobarbital 08/2021. Alcohol Use Disorder (AUD) Mr. Roman meets the criteria for Alcohol Use Disorder. AUD treatment is complex because it is heavily dependent on adherence to treatment, treatment is often long-term, and return to use brings increased risk of morbidity/mortality. Plan for Medication for Alcohol Use Disorder (AV): Treating AUD with medication will help to reduce alcohol use. I counseled Mr. Roman on FDA approvedmedications for AUD (AV), including risks, benefits, and alternatives. He expressed understandingand is a candidate for AV. States he has been treated in the past with Vivitrol and PO naltrexone. PO naltrexone caused GI distress. o At this time, he would like to resume AV with Vivitrol. I have reviewed all relevant clinical data including vital signs, clinical withdrawal assessments (3 @ 0000), labs (04/27/22 ALP 82, ALT 36, AST 18), medications, and OARRS report. o Placed order for Vivitrol 380 mg IM. Order sent to [facility]. o RN to administer prior to discharge from the ED. Stimulant Use Disorder Mr. Roman meets the criteria for Stimulant Use Disorder. Last use ~2weeks ago. Nicotine Use Disorder Use per Day: vapes Patient has not used in ~2weeks Harm Reduction - Injection Use Current injection practices were reviewed. Written instructions were included in discharge paperwork. [facility] at [address] (Every Wednesday & Wednesday: 4PM - 8PM & Every Wednesday & Wednesday: 9AM - 1PM). Services at this location include: o Syringe exchange and safer injection use education o Overdose prevention education o HIV/STI/Hepatitis C testing o PrEP Additional work-up: Recommend universal screening for HIV and Hepatitis C if no prior screening performed. Harm Reduction - Vaccination Please offer Hepatitis A vaccination if Mr. Roman is at increased risk and no prior vaccine documented. Please offer Hepatitis B vaccination if Mr. Roman is non-immune or at increased risk and no prior vaccine documented. Please offer Tetanus vaccination if no documentation of prior vaccine within last 10 years. Accidental Opioid Overdose Prevention Fentanyl has permeated into supply of many street substances and carries risk of opioid overdose. All patients who use illicit substances should be offered Narcan. Mr. Roman is at risk of accidental opioid overdose. Placed order for Naloxone (4 mg nasal spray) MARINA kit, with communication order to RN to dispense at the time of discharge. Provided education about signs and symptoms of overdose Project MARINA instructions will be included in discharge paperwork. Fentanyl test strips, with instructions for use and how to obtain additional strips, provided. Care Coordination Substance Use Disorders (JIMMY) are treatable, chronic medical diseases involving complex interactions among brain circuits, genetics, the environment, and an individual's life experiences. It is characterized by a compulsive drive to continue use despite serious adverse consequences, loss of controlover intake and the emergence of a negative emotional state during abstinence. The natural history of this disease often involves deterioration across multiple domains of functioning and risk of relapse. However, prevention efforts and treatment approaches for use disorders are generally as successful as those for other chronic diseases. Mr. Roman's presentation is most consistent with the action stage of change. Recommendation for level of care at discharge based on the ASAM criteria: o Level 3 Residential Treatment / Clinically Managed Low-Intensity (3.1): Following this admission,the patient's risk of additional severe withdrawal is minimal. There are medical or emotional comorbidities that require residential structure and monitoring, but not dedicated intensive treatment. They possess a high degree of unstable ambivalence regarding readiness for change, are unable to control their use and their lived environment is dangerous for their recovery. o He is amenable to this level of care after discharge and our team will assist with referral for care. o Please see note from ED Addiction Medicine rn social work, Sharona Adhikari. I have discussed care with ED/PES providers and Addiction SW. HISTORY OF PRESENT ILLNESS Mckinley Roman is a 37 y.o. male is admitted to [facility] for a mental health evaluation. He is seen today in consultation for evaluation of substance use. Mr. Roman had his first drink of alcohol around age 15 and states he became an alcoholic by 20. Currently, he is drinking a fifth of whiskey daily. His last drink was 06/07/22. He also has a history of stimulant use. States he began using cocaine around age 18 and methamphetamine around age 31. He is injecting. He has not overdosed in the past. He has a history of tobacco use and was vaping, but states he hasn't owned his own vape in some time. His last use was two weeks ago. He denies any other substance use. He has sought treatment for JIMMY in the past and has received AV with Vivitrol and naltrexone. He would like to resume treatment with Vivitrol, stating the naltrexone caused GI dist ress. He has also sought counseling in the past, including AA. He is interested in receiving inpatient/residential care for JIMMY, but states currently he is very suicidal and is hoping to receive treatment for his depression prior to addressing his addiction needs. Mr. Roman has experienced withdrawal during this admission, which have been of constant duration, with waxing/waning severity, and associated with symptoms of: headache, anxiety, tremor, and hot/coldchills. These symptoms have been are partially relieved by supportive medications. Mckinley Roman self-reports includes history of the following substance use disorder criteria duringthe past 12 months: Substance taken in larger amount or duration than intended Persistent desire/unsuccessful efforts to cut down or control use Great deal of time spent obtaining, using or recovering from effects of substance Craving Recurrent use of substance results in failure to fulfill major obligations at work, school or home Continued use despite social/interpersonal substance related problems Important social, occupational, or recreational activities given up or reduced because of substanceuse Recurrent use in hazardous situations Continued use despite knowledge of having persistent or recurrent substance related physical or psychological problem likely caused or exacerbated by use Tolerance Withdrawal Prediction of Alcohol Withdrawal Severity Scale (PAWSS) Part A: Threshold Criteria Has the patient consumed any amount of alcohol within the last 30 days OR did the patient had a positive blood alcohol level upon admission? Yes Part B: Based on Patient Interview Have you been recently intoxicated within the last 30 days? Have you ever experienced previous episodes of alcohol withdrawal? YES +1 Have you ever experienced withdrawal seizures? NO Have you ever experienced delirium tremens (DTs)? NO Have you ever undergone alcohol rehabilitation treatment (i.e., inpatient or outpatient treatment programs, or Alcoholics Anonymous attendance)? YES +1 Have you ever experienced blackouts? YES +1 Have you combined alcohol with other downers (e.g. benzodiazepines, barbiturates) during the last 90 days? NO Have you combined alcohol with any other substance of abuse during the last 90 days? YES +1 Part C: Based on Clinical Evidence Positive blood alcohol level (BAL) on presentation? YES +1 Is there evidence of increased autonomic activity? (e.g., HR >120, tremor, sweating, agitation, nausea) YES +1 PAWSS TOTAL SCORE: 6 A score of 4 or greater suggests high risk for moderate to severe (complicated) TOBI; prophylaxis and/or treatment may be indicated (ref: Rhett et al, 2015). MEDICAL HISTORY Past Medical History: Diagnosis Date Bipolar 1 disorder Depression No past surgical history on file. SOCIAL HISTORY See HPI Mr. Roman was seen 06/08/22 with Emergency market research worker, EMANUEL Valentin. Please see her documentation of this treatment episode for additional social history. MEDICATIONS See MAR ALLERGIES Allergies Allergen Reactions Tuberculin Tests Rash *Seasonal Runny Nose REVIEW OF SYSTEMS 1. Constitutional: Fatigue: y Chills: y Hot flashes: y Cold sweats/sweats: y Insomnia: n 2. Eyes: Watery eyes: n 3. Ears, Nose, Mouth & Throat: Runny nose: n Yawning: n 4. Cardiovascular: Tachycardia: n 5. Respiratory: Dyspnea: n Cough: n 6. Gastrointestinal: Abdominal cramps: n Nausea: n Vomiting: n Diarrhea: n 7. Integumentary: Goose bumps: n Rash or lesions: n 8. Musculoskeletal: Body aches: n 9. Neurological: Tremor: y Seizures: n Headache: y 10. Psychiatric: Anxiety: y Depression: y Agitation: n Hallucinations: n visual/auditory/tactile disturbances: n PHYSICAL EXAM I have reviewed all relevant clinical data including vital signs, clinical withdrawal assessments (3 @ 0000), labs (EtOH 146, UDS - ), medications, and OARRS (naltrexone 05/30/22, Vivitrol 03/16/22, lorazepam 10/2021). Vitals: 06/07/222132 BP: 131/75 Pulse: 98 Resp: 18 Temp: 98.3 F (36.8 C) SpO2: 95% O2 Device: room air (06/07/222132) Physical Exam Vitals reviewed. Constitutional: General: He is not in acute distress. Appearance: He is not toxic-appearing or diaphoretic. HENT: Nose: No congestion or rhinorrhea. Eyes: General: No scleral icterus. Right eye: No discharge. Left eye: No discharge. Comments: Pupils appear normal size for room light. Cardiovascular: Rate and Rhythm: Normal rate. Pulmonary: Effort: Pulmonary effort is normal. No respiratory distress. Abdominal: General: There is no distension. Musculoskeletal: General: Normal range of motion. Skin: General: Skin is warm and dry. Coloration: Skin is not jaundiced. Findings: Lesion (superficial lacerations to left forearm. No active bleeding or signs of infectionvisible) present. No erythema or rash. Neurological: General: No focal deficit present. Mental Status: He is alert and oriented to person, place, and time. Mental status is at baseline. Gait: Gait normal. Psychiatric: Mood and Affect: Mood normal. Behavior: Behavior normal. Thought Content: Thought content normal. Judgment: Judgment normal. Insight/Judgment: inconsistent insight and judgment towards addiction DATA REVIEW - Following laboratory data personally reviewed Lab Results Component Value Date FENTU Negative 06/07/2022 OPIATE Negative 06/07/2022 OXYCODONE Negative 06/07/2022 BUPREN Negative 06/07/2022 METHADUR Negative 06/07/2022 BENZOUR Negative 06/07/2022 AMPMETUR Negative 06/07/2022 COCUR Negative 06/07/2022 CANNABINOIDS Negative 06/07/2022 Lab Results Component Value Date ETOHSERUM 146 (H) 06/07/2022 Lab Results Component Value Date HIV1X2 Non-reactive 03/19/2022 Hepatitis C Antibody Date Value Ref Range Status 03/19/2022 Non-Reactive Non-Reactive Final Hepatitis Bs Antigen Date Value Ref Range Status 03/19/2022 Non-reactive Non-reactive Final Comment: Specimen considered negative for HBsAg. I have reviewed previous notes and labs in IS with significant findings stated above. SIGNING GLOBAL COMPENSATION MANAGER Thank you for this consult, Kina Cooper, TERMITE CONTROL SERVICER-ARTS THERAPIST, ED Addiction [phone] (This note was written in part using voice recognition software; despite attempts at proofreading, it may contain errors and mis-transcribed words inherent to this process) Total time for visit, including chart review, visit time with patient, collaboration with consulting provider(s), ordering, and documentation, was 60 minutes. Associated attestation - Baldo Sin DO, MPH - 06/08/2022 1:15 PM EDT I have not personally seen nor evaluated this patient, but I have reviewed all available clinical data related to today's encounter including, but not limited to, radiology images and reports, laboratory data, and procedure reports. I agree with the REZA's findings and have been fully involved in the formulation of the medical decision making involved in the assessment and plan. I was also immediately available for urgent questions or concerns by phone. Baldo Sin DO, MPH Clinical [facility] Department of Hospital and Emergency Medicine [id number]/epic chat documented [facility] Hospital Discharge instructions* Discharge Instructions* SharonaVESNA SkinnerW - 06/08/2022 3:23 PM EDT You are being sent to [facility] for inpatient withdrawal management, followed by residential treatment. You got the Vivitrol shot today, 06/08/22. This is due every 4 weeks. 4 weeks from today, is 07/06/22. [facility] can administer this for you. Some local options for substance use treatment: [facility] [address] [place], [place] *Detox, Partial Hospitalization, Intensive Outpatient, Outpatient. Medicaid, Medicare, and private insurance. Walk-in appointments for detox and outpatient services Wednesday-Wednesday, 09-19. [address] [place], [place] [phone] *Walk-ins for ASSESSMENTS, Wednesday-Wednesday, 09-08. Will screen and arrange treatment at the appropriatelevel of care. Walk-ins for DETOX, 31/08. RREACT [phone] *Call, or TEXT, for help finding treatment, including detox. [facility] *Needle exchange, fentanyl test strips, and harm reduction resources. HIV testing, STI testing, PrEP, Hep C testing. [address] [place] Tuesdays and Wednesdays, 4-8 Saturdays, 10-09 For help finding other resources (addiction treatment, behavioral health treatment, food assistance, community resources), visit www.[employer].org. [place] [address] [facility] [address] [phone] *Multiple locations. Central Intake at this location. [facility] [address] [phone] *Walk-in assessments Mondays, Tuesdays, and at 8 AM. Assessments start at 1 PM. [facility] [address] . [phone] [facility] [address] [phone] *Men only. Residential program only. Walk-in Wednesday-Wednesday from 09-19 to apply for admission. [facility] [address] [phone] *Medicare, Private Insurance, some Managed Medicaid. Partial Hospitalization and Intensive Outpatient. [address] [phone] *Medicare, Private Insurance, some Managed Medicaid. Partial Hospitalization and Intensive Outpatient. [facility] [address] [phone] *Medicare and private insurance only. Detox, Residential, Partial Hospitalization, and Intensive Outpatient. [facility] [address] [phone] *Multiple locations. [address] [phone] *Home-based treatment, also has Intensive Outpatient and MAT services. [facility] [address] *Intensive Outpatient only. [facility] [address] [phone] *Walk-in assessments . & Wed. 8:00-9:00 [facility] [phone] [facility] [address] [phone] *If you want counseling, call to schedule an appointment. Ifyou want MAT for opiates, bring a valid photo ID and insurance card, arrive at 6 am Wednesday-Wednesday, the first 3-5 people will be seen starting at 7 am. Be prepared to stay until 1 pm. If wanting to start Methadone, you must be in withdrawal when you come. [facility] (women only) [address] [phone] *Walk-in Tuesdays at 8:30 or 12:30. Walk-in at 8:30. Bring photo ID and insurance information. [facility] [address] [phone] [facility] [address] [phone] [facility] [address] [phone] [facility] [address] [phone] [facility] [address] [phone] *PHP Wed-Wed, 9-2:20, includes lunch and transportation [facility] [address] [phone] *Also has [place] location. *Outpatient services and recovery housing services for men and women. *Has Suboxone provider, individual counseling, and groups. *Medicaid plans only. [facility] *Phones answered 31/08. Usually has appointments within 1-[address] [place] [address] 31/08Phone: [phone] Most insurance accepted, including ALL types of Medicaid. [facility] *Walk-ins Wednesday through Wednesday 8-[address] [place] [address] Medicare, Medicaid and uninsured accepted [facility] *Walk-ins Wed-Wed, -, for MAT and Psychiatry [address] [place], [place] [phone] Ana Cristina *Walk-ins Wed-Wed, 9-. Visit with prescriber on first day, or second day. [address] [place] [address] *All [place] Medicaid plans are accepted. Alcoholics Anonymous www.aacentral[place]io.org [phone] Narcotics Anonymous www.nacentralohio.org [phone] Cocaine Anonymous www.caohio.org 042-158-7656 Marijuana Anonymous www.marijuana-anonymous.org 149-655-2271 [facility] Recovery www.smartrecovery.org [place] Quit Line (smoking) https://[place].quitlogix.org 259-KASC-BLA ([phone]) [facility] s National Helpline 31/08 Treatment Chip Bin Operator https://findtreatment.gov/ 8-440-392-HELP (9134) 12-Step Education: Please consider attending a 12-Step meeting each day (such as AA or NA). If you go, we recommend you make it a goal to attend 90 meetings in 90 days. There are online meetings and phone meetings available as well. You can ask for a temporary sponsor at the first meeting. Contact your sponsor daily so you can work the 12 Steps together. Read AA's The Big Book. You can get a copy at any meeting. Many 12-step program have free apps to be downloaded onto your smartphone or tablet. Exercise helps to decrease cravings, therefore exercise as tolerated. Practice using HALT by making sure you are not getting too Hungry, Angry, Lonely, or Tired. Avoid people, places, and things that trigger you to use. Community Mental Health Agencies. Mental health agencies provide a number of services including counseling, case management services, medication management, and substance abuse treatment services. Please call to schedule or confirm your appointment: [facility] 16 [facility] [phone] [facility] [address] [phone] *Addiction Services, walk-in assessments . & Wed. 8:00-9:00. *Mental Health Services, walk-in assessments Mon-Fri 8:00-11:30. [facility] [address] [facility] [phone] [facility]) [phone] [facility] 299 [facility]. [phone] Eli Zeng [address] [phone] [facility] [address]. [phone] [phone] Helpful phone numbers: Free Crisis Hotline: 8-648-212-TALK ( ) 31/08 Crisis Line: Text or Call 084 [facility]: 450.780.4239 (free counseling) 24-hour crisis text hotline: Text the word 4hope to 707-922 for crisis support. Texting this number is free if you have Verizon, [employer], [employer] or [employer]. [place] of Access, Homeless Half-Way Intake Hotline: 990.449.8538 If you feel unsafe at any time, call 911 or go to the nearest emergency room. Positive coping skills are ways to decrease the negative effects of stress, anger, and anxiety. It is important to use these skills daily to maintain a manageable level of stress, decrease anxiety, and deal positively with anger. Here is a list of healthy coping skills: Exercise or take a walk daily. Use relaxation or deep breathing. Engage in a positive recreation interest. Listen to calming music. Manage your time well. Talk to someone. Take a break. Eat a balanced diet. Maintain a regular sleep schedule. Spend time with a support person or pet. The following are warning signs of suicide: Withdrawal from friends, family, and social activities. Increased feelings of hopelessness; belief that things will never get better, and nothing will everchange. Talking of feeling suicidal: directly- I want to kill myself or indirectly- I won't be a problemfor much longer. Putting themselves down (example: I am no good or I am a bad person ). Putting affairs in order, giving away possessions. Loss of energy, loss of pleasure in activities that were previously enjoyed. Increased complaints of physical symptoms. Change of eating habits or sleep pattern. Deterioration of work or school performance. Increased anxiety. Increasing hostility or anger to others. The recent loss of family, friend, or relationship can be a trigger for suicide. Tips to make your home a safer place: Check the home carefully for items that need to be removed, thrown away, or stored at another location. Remove all firearms (even antiques ones that you think don't work). Lock away ALL medicines, including over the counter ones. Lock up and monitor medicines that are prescribed and must be taken. Remove or lock up any toxic materials. * Attachments The following attachments cannot be sent through Care Everywhere. * Alcohol Intoxication: Acute (Palestinian) * Suicidal Thoughts ([place]est[place]) [facility]* EMANUEL Valentin - 06/08/2022 11:23 AM EDT Spoke with Er[facility] admissions teamBaldo. Patient is accepted for admission pending psych clearance. A bed is being held for him for TODAY. Psychiatry updated on the above. 2:40 PM Call back to [facility], informed them psychiatry consult remains in progress. Admissions confirmed bed is being held, and states their clinical team will need to review the psychiatry note before final acceptance for admission. GEETHA Valentin ED Addiction Medicine Consult Service Available Wednesday-Wednesday, 8-4 Reachable by IHIS chat or phone, at [phone] Recovery is for everyone. Every person, every family, every community. [facility] Consult note* EMANUEL Valentin - 06/08/2022 9:38 AM EDT Received phone call from patient. This clinician (ED Addiction Med Die Assembler[facility]. Patient states he's no longer feeling suicidal, and would like to be sent to a residential JIMMY tx program. Confronted patient re: report of SI earlier today, and denial of SI now. Patient states I thought it'd be easier to just say I was suicidal so I could stay down here. But, that's not the case. I want to go to treatment. I need to go to treatment. Reports the cuts on his arm are due to falling off a ladder while intoxicated, and denies he intentionally harmed himself. Reports he's been to several local programs, including [facility] multiple times. States I just keep walking out. I need to stop doing that. Asked him what gets in the way of him staying, and he reports he's struggling with cravings, not being able to handle stress, and thinking of his parents. Reports the first year anniversary of his father's was May 2022, and the second year anniversary of his mother's is Mother'2022. Reviewed options available, and explained Psychiatry consult is pending. Patient agreeable to referral to [facility] in [place], [place]. He is instructed to complete a phone screening today at 9:50 AM. Plan/Progress: 1. Inpatient withdrawal management admission followed by residential JIMMY, PENDING psych clearance. 2. See Addiction Med REZA note for documentation/recommendations re: Medication for Alcohol Use Disorder. 3. Patient completing phone screening at [facility]. This clinician faxed referral documents, awaiting returned call. 4. Primary team and psychiatry updated on the above. Will continue to follow. EMANUEL Valentin-Bucky ED Addiction Medicine Consult Service Available Wednesday-Wednesday, 8-4 Reachable by IHIS chat or phone, at [phone] Recovery is for everyone. Every person, every family, every community. [facility]05-01[facility] Consult note* FILI Alas - 06/08/2022 7:00 AM EDTAssociated Order(s): CONSULT ED ADDICTION MEDICINE CONSULT ED ADDICTION MEDICINE Consult performed by: FILI Alas Consult ordered by: Young Banegas MD INITIAL CONSULT Patient: Mckinley Roman, 1985, [id number] Provider: FILI Alas, ED Addiction [phone] Encounter date: 06/08/2022 Reason for Consult: Assessment of substance use IMPRESSION/PLAN Alcohol Withdrawal Based on PAWSS (6), Mr. Roman's risk of serious withdrawal complications is high. Recommend the following: o Continue CIWA protocol o Continuing multivitamin, thiamine, folate o If CIWA does not improve, or worsens, recommend phenobarbital. He was treated for alcohol withdrawal with phenobarbital 08/2021. Alcohol Use Disorder (AUD) Mr. Roman meets the criteria for Alcohol Use Disorder. AUD treatment is complex because it is heavily dependent on adherence to treatment, treatment is often long-term, and return to use brings increased risk of morbidity/mortality. Plan for Medication for Alcohol Use Disorder (AV): Treating AUD with medication will help to reduce alcohol use. I counseled Mr. Roman on FDA approvedmedications for AUD (AV), including risks, benefits, and alternatives. He expressed understandingand is a candidate for AV. States he has been treated in the past with Vivitrol and PO naltrexone. PO naltrexone caused GI distress. o At this time, he would like to resume AV with Vivitrol. I have reviewed all relevant clinical data including vital signs, clinical withdrawal assessments (3 @ 0000), labs (04/27/22 ALP 82, ALT 36, AST 18), medications, and OARRS report. o Placed order for Vivitrol 380 mg IM. Order sent to [facility]. o RN to administer prior to discharge from the ED. Stimulant Use Disorder Mr. Roman meets the criteria for Stimulant Use Disorder. Last use ~2weeks ago. Nicotine Use Disorder Use per Day: vapes Patient has not used in ~2weeks Harm Reduction - Injection Use Current injection practices were reviewed. Written instructions were included in discharge paperwork. [facility] at [address] (Every Wednesday & Wednesday: 4PM - 8PM & Every Wednesday & Wednesday: 9AM - 1PM). Services at this location include: o Syringe exchange and safer injection use education o Overdose prevention education o HIV/STI/Hepatitis C testing o PrEP Additional work-up: Recommend universal screening for HIV and Hepatitis C if no prior screening performed. Harm Reduction - Vaccination Please offer Hepatitis A vaccination if Mr. Roman is at increased risk and no prior vaccine documented. Please offer Hepatitis B vaccination if Mr. Roman is non-immune or at increased risk and no prior vaccine documented. Please offer Tetanus vaccination if no documentation of prior vaccine within last 10 years. Accidental Opioid Overdose Prevention Fentanyl has permeated into supply of many street substances and carries risk of opioid overdose. All patients who use illicit substances should be offered Narcan. Mr. Roman is at risk of accidental opioid overdose. Placed order for Naloxone (4 mg nasal spray) MARINA kit, with communication order to RN to dispense at the time of discharge. Provided education about signs and symptoms of overdose Project MARINA instructions will be included in discharge paperwork. Fentanyl test strips, with instructions for use and how to obtain additional strips, provided. Care Coordination Substance Use Disorders (JIMMY) are treatable, chronic medical diseases involving complex interactions among brain circuits, genetics, the environment, and an individual's life experiences. It is characterized by a compulsive drive to continue use despite serious adverse consequences, loss of controlover intake and the emergence of a negative emotional state during abstinence. The natural history of this disease often involves deterioration across multiple domains of functioning and risk of relapse. However, prevention efforts and treatment approaches for use disorders are generally as successful as those for other chronic diseases. Mr. Roman's presentation is most consistent with the action stage of change. Recommendation for level of care at discharge based on the ASAM criteria: o Level 3 Residential Treatment / Clinically Managed Low-Intensity (3.1): Following this admission,the patient's risk of additional severe withdrawal is minimal. There are medical or emotional comorbidities that require residential structure and monitoring, but not dedicated intensive treatment. They possess a high degree of unstable ambivalence regarding readiness for change, are unable to control their use and their lived environment is dangerous for their recovery. o He is amenable to this level of care after discharge and our team will assist with referral for care. o Please see note from ED Addiction Medicine rn social work, Sharona Adhikari. I have discussed care with ED/PES providers and Addiction SW. HISTORY OF PRESENT ILLNESS Mckinley Roman is a 37 y.o. male is admitted to [facility] for a mental health evaluation. He is seen today in consultation for evaluation of substance use. Mr. Roman had his first drink of alcohol around age 15 and states he became an alcoholic by 20. Currently, he is drinking a fifth of whiskey daily. His last drink was 06/07/22. He also has a history of stimulant use. States he began using cocaine around age 18 and methamphetamine around age 31. He is injecting. He has not overdosed in the past. He has a history of tobacco use and was vaping, but states he hasn't owned his own vape in some time. His last use was two weeks ago. He denies any other substance use. He has sought treatment for JIMMY in the past and has received AV with Vivitrol and naltrexone. He would like to resume treatment with Vivitrol, stating the naltrexone caused GI dist ress. He has also sought counseling in the past, including AA. He is interested in receiving inpatient/residential care for JIMMY, but states currently he is very suicidal and is hoping to receive treatment for his depression prior to addressing his addiction needs. Mr. Roman has experienced withdrawal during this admission, which have been of constant duration, with waxing/waning severity, and associated with symptoms of: headache, anxiety, tremor, and hot/coldchills. These symptoms have been are partially relieved by supportive medications. Mckinley Roman self-reports includes history of the following substance use disorder criteria duringthe past 12 months: Substance taken in larger amount or duration than intended Persistent desire/unsuccessful efforts to cut down or control use Great deal of time spent obtaining, using or recovering from effects of substance Craving Recurrent use of substance results in failure to fulfill major obligations at work, school or home Continued use despite social/interpersonal substance related problems Important social, occupational, or recreational activities given up or reduced because of substanceuse Recurrent use in hazardous situations Continued use despite knowledge of having persistent or recurrent substance related physical or psychological problem likely caused or exacerbated by use Tolerance Withdrawal Prediction of Alcohol Withdrawal Severity Scale (PAWSS) Part A: Threshold Criteria Has the patient consumed any amount of alcohol within the last 30 days OR did the patient had a positive blood alcohol level upon admission? Yes Part B: Based on Patient Interview Have you been recently intoxicated within the last 30 days? Have you ever experienced previous episodes of alcohol withdrawal? YES +1 Have you ever experienced withdrawal seizures? NO Have you ever experienced delirium tremens (DTs)? NO Have you ever undergone alcohol rehabilitation treatment (i.e., inpatient or outpatient treatment programs, or Alcoholics Anonymous attendance)? YES +1 Have you ever experienced blackouts? YES +1 Have you combined alcohol with other downers (e.g. benzodiazepines, barbiturates) during the last 90 days? NO Have you combined alcohol with any other substance of abuse during the last 90 days? YES +1 Part C: Based on Clinical Evidence Positive blood alcohol level (BAL) on presentation? YES +1 Is there evidence of increased autonomic activity? (e.g., HR >120, tremor, sweating, agitation, nausea) YES +1 PAWSS TOTAL SCORE: 6 A score of 4 or greater suggests high risk for moderate to severe (complicated) TOBI; prophylaxis and/or treatment may be indicated (ref: Rhett et al, 2015). MEDICAL HISTORY Past Medical History: Diagnosis Date Bipolar 1 disorder Depression No past surgical history on file. SOCIAL HISTORY See HPI Mr. Roman was seen 06/08/22 with Emergency market research worker, EMANUEL Valentin. Please see her documentation of this treatment episode for additional social history. MEDICATIONS See MAR ALLERGIES Allergies Allergen Reactions Tuberculin Tests Rash *Seasonal Runny Nose REVIEW OF SYSTEMS 1. Constitutional: Fatigue: y Chills: y Hot flashes: y Cold sweats/sweats: y Insomnia: n 2. Eyes: Watery eyes: n 3. Ears, Nose, Mouth & Throat: Runny nose: n Yawning: n 4. Cardiovascular: Tachycardia: n 5. Respiratory: Dyspnea: n Cough: n 6. Gastrointestinal: Abdominal cramps: n Nausea: n Vomiting: n Diarrhea: n 7. Integumentary: Goose bumps: n Rash or lesions: n 8. Musculoskeletal: Body aches: n 9. Neurological: Tremor: y Seizures: n Headache: y 10. Psychiatric: Anxiety: y Depression: y Agitation: n Hallucinations: n visual/auditory/tactile disturbances: n PHYSICAL EXAM I have reviewed all relevant clinical data including vital signs, clinical withdrawal assessments (3 @ 0000), labs (EtOH 146, UDS - ), medications, and OARRS (naltrexone 05/30/22, Vivitrol 03/16/22, lorazepam 10/2021). Vitals: 06/07/223 BP: 131/75 Pulse: 98 Resp: 18 Temp: 98.3 F (36.8 C) SpO2: 95% O2 Device: room air (06/07/222132) Physical Exam Vitals reviewed. Constitutional: General: He is not in acute distress. Appearance: He is not toxic-appearing or diaphoretic. HENT: Nose: No congestion or rhinorrhea. Eyes: General: No scleral icterus. Right eye: No discharge. Left eye: No discharge. Comments: Pupils appear normal size for room light. Cardiovascular: Rate and Rhythm: Normal rate. Pulmonary: Effort: Pulmonary effort is normal. No respiratory distress. Abdominal: General: There is no distension. Musculoskeletal: General: Normal range of motion. Skin: General: Skin is warm and dry. Coloration: Skin is not jaundiced. Findings: Lesion (superficial lacerations to left forearm. No active bleeding or signs of infectionvisible) present. No erythema or rash. Neurological: General: No focal deficit present. Mental Status: He is alert and oriented to person, place, and time. Mental status is at baseline. Gait: Gait normal. Psychiatric: Mood and Affect: Mood normal. Behavior: Behavior normal. Thought Content: Thought content normal. Judgment: Judgment normal. Insight/Judgment: inconsistent insight and judgment towards addiction DATA REVIEW - Following laboratory data personally reviewed Lab Results Component Value Date FENTU Negative 06/07/2022 OPIATE Negative 06/07/2022 OXYCODONE Negative 06/07/2022 BUPREN Negative 06/07/2022 METHADUR Negative 06/07/2022 BENZOUR Negative 06/07/2022 AMPMETUR Negative 06/07/2022 COCUR Negative 06/07/2022 CANNABINOIDS Negative 06/07/2022 Lab Results Component Value Date ETOHSERUM 146 (H) 06/07/2022 Lab Results Component Value Date HIV1X2 Non-reactive 03/19/2022 Hepatitis C Antibody Date Value Ref Range Status 03/19/2022 Non-Reactive Non-Reactive Final Hepatitis Bs Antigen Date Value Ref Range Status 03/19/2022 Non-reactive Non-reactive Final Comment: Specimen considered negative for HBsAg. I have reviewed previous notes and labs in IHIS with significant findings stated above. SIGNING GLOBAL COMPENSATION MANAGER Thank you for this consult, Kina Cooper, TERMITE CONTROL SERVICER-ARTS THERAPIST, ED Addiction [phone] (This note was written in part using voice recognition software; despite attempts at proofreading, it may contain errors and mis-transcribed words inherent to this process) Total time for visit, including chart review, visit time with patient, collaboration with consulting provider(s), ordering, and documentation, was 60 minutes. Associated attestation - Baldo Sin DO, MPH - 06/08/2022 1:15 PM EDT I have not personally seen nor evaluated this patient, but I have reviewed all available clinical data related to today's encounter including, but not limited to, radiology images and reports, laboratory data, and procedure reports. I agree with the REZA's findings and have been fully involved in the formulation of the medical decision making involved in the assessment and plan. I was also immediately available for urgent questions or concerns by phone. Baldo Sin DO, MPH Clinical [facility] Department of Hospital and Emergency Medicine [id number]/epic chat [facility]05-01-2023 Emergency department Note* Darleen Sierra RN - 06/08/2022 4:50 AM EDTSummary: Patient behavior Patient frequently asking about when someone from psych is going to be here to see him, asking whatis taking so long. Inspector Final Assembly Mechanical has explained that it is unknown when they will be around at this time. [facility]05-01-2023 Emergency department Note* Darleen Sierra RN - 06/08/2022 12:24 AM EDTSummary: Patient behavior Patient approached desk to ask what time it was. Inspector Final Assembly Mechanical expressed the time. Patient again stated so I'm going to be down here for three days because you guys are so fucking slow . Inspector Final Assembly Mechanical explained that there is no definite time frame at this time. Patient laying on the floor in the common area at this time. [facility]04-30-[facility] Emergency department Note* Darleen Sierra RN - 06/07/2022 11:56 PM EDTSummary: Patient behavior Patient yelling out at staff, any word on anything yet? Inspector Final Assembly Mechanical informed him that we are indeed still waiting for psych at this time. Patient states this aldana is fucking stupid . Patient also stated so what I should expect to be here about three days? Since this place is so fucking slow . Writerexpressed it was unknown what time frame we are looking at, at this time. [facility] Emergency department Note* Darleen Sierra RN - 06/07/2022 11:42 PM EDTSummary: Patient behavior Patient repeatedly coming to desk asking what we are waiting on, what is taking so long and being rude. Inspector Final Assembly Mechanical informed patient that we are now waiting on psych to see him and that takes time. [facility] Emergency department Note* Darleen Sierra RN - 06/07/2022 10:57 PM EDTSummary: Patient request Patient being rude and demanding to speak to a doctor. This is a third time a doctor has seen him. [facility]30[facility] Emergency department Note* Darleen Sierra RN - 06/07/2022 10:48 PM EDTSummary: Patient request Patient requesting something for anxiety. Inspector Final Assembly Mechanical notified provider. Provider prescribed atarax. Patient upset because he was not prescribed Ativan and refused to take the Atarax. Notified provider. [facility]-30[facility] Emergency department Note* UZIEL Wolf - 06/07/2022 10:26 PM EDT Since arriving to Psychiatric care area patient has requested multiple food items, several drinks, multiple requests for admission to in patient care and medication requests. [facility]04-30-2023 Physician Emergency department Note* Augustus Galan MD - 06/07/2022 10:04 PM EDT ED Attending Chief Complaint Patient presents with Mental Health Problems Past Medical History: Diagnosis Date Bipolar 1 disorder Depression Mckinley Roman is a 37 y.o. male. [place] from [facility] for SI; ?drugs BP 131/75 Pulse 98 Temp 98.3 F (36.8 C) (Oral) Resp 18 Ht 1.803 m (5' 11 ) SpO2 95% BMI33.47 kg/m Smoking Status Every Day Nad;nontoxic; mmm; seems intoxicated; denying SI now; no visible injury Medical Decision Making Amount and/or Complexity of Data Reviewed Labs: ordered. Risk OTC drugs. On 06/07/2022 I saw and examined the patient. I discussed the history and examination with the resident and agree with the plan of care. Augustus Galan MD 06/07/222206 [facility] Work Phone: [phone] Emergency department Note* Darleen Sierra RN - 06/07/2022 10:03 PM EDTSummary: Patient behavior Patient asking for Ativan after seeing another patient receiving medication. Let him know that the doctor has to order it for him and he has already seen the medical team. Inspector Final Assembly Mechanical expressed that he should have notified the doctor at that time if he wanted something for anxiety. Patient then called parts data writer josé manuel hinton and requested to see the doctor again. Inspector Final Assembly Mechanical has already spoken to patient about not being rude. Provider notified about his Ativan request. [facility]30[facility] Emergency department Note* UZIEL Wolf - 06/07/2022 10:01 PM EDT Pt becoming verbally aggressive with RN at this time. Attempts to verbally de- escalate unsuccessful [facility]04-30-2023 Emergency department Note* UZIEL Wolf - 06/07/2022 9:57 PM EDT Patient attempting to staff split. Asking Rn and both apricot washer the same question multiple times, in attempt to get different answers. Pt educated by TW that only psychiatry can make decisions on placement for Psychiatric care. [facility]04-30-2023 Physician Emergency department Note* Anderw Montes MD - 06/07/2022 9:52 PM EDT EMERGENCY DEPARTMENT ENCOUNTER CHIEF COMPLAINT Mental Health Problems HPI Mckinley Roman is a 37 y.o. male with a history of polysubstance use and Bipolar I disorder who presents as a pink slip from [facility] with reports of SI and self harm. Per documentation, patient walked up to [facility] and reported suicidal ideation, and when asked if he would like to go to the hospital, responded yes. There was no further documentation on details, etc. On arrival here, patient is unclear about the events leading to his pink slip and says that he is not suicidal, homicidal, or responding to [facility] at this time and would like to go home if able. Furthermore, he denies any specific plan or access to firearms at this time. Patient's history appears all over the place - at times stating that he has been sober for several weeks before changing his story to say his last drink was several hours ago. Is unable to quantify his alcohol use but chart review states up to 20 drinks/day - has required a phenobarbital taper in August 2021. Says that he has been in and out of [facility] - most recently yesterday? Says that he does not want any help with resources for substance use at this time. Says that he is currently living with a friend and denies housing instability. Denies any other drug use at time of interview. Says that his only medication is effexor 225 mg daily (does have many meds on dispense report, but no sustaining fills) which he took on the morning of presentation. Update 2300: Patient now reporting that he feels he needs help for severe depression and alcohol use. States that reason he called the police today was because he was in fact having SI, and has been attempting toself harm himself with cutting, primarily his L arm - most recently this morning. When asked why his story changed, he says I don't know, I was embarrased. Now also endorsing severe anxiety, and specifically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 Allison MD 05/19/22 1546 documented in this encounterJefferson [id number] Hospital Discharge instructions* Discharge Instructions* Onel Allison MD - 05/19/2022 3:08 PM EDT You were seen in the Emergency Department today. You received blood test and urine test. You tested negative on your urine drug screen and did not have alcohol in your system. Unfortunately we are unable to get you into a substance abuse facility today from the emergency department. You should follow-up with [facility], which is an addiction help facility by going they are calling them today. This is important. You should return to the nearest ED immediately if you begin to experience difficulty breathing, signs of withdrawal, plan to kill yourself, or any new or worsening symptoms. The [place] ED is open 24 hours a day. You may call [phone] if you do not have a primary care physician for an adult or call [phone] fora upper marker referral. * Attachments The following attachments cannot be sent through Care Everywhere. * Alcohol Use Disorder: General Info (Palestinian) * Alcohol: Treatment Options: Video (Palestinian) documented in this encounterWhitney [place]ille [address]-11-2023 Note* ED Bed Hold Note - Rylee Diane RN - 05/19/2022 6:57 AM EDT Bed: ED-18 Expected date: Expected time: Means of arrival: Comments: Bed 8 [place] [address]-11-2023 Miscellaneous Notes* ED Bed Hold Note - Rylee Diane RN - 05/19/2022 6:57 AM EDT Bed: ED-18 Expected date: Expected time: Means of arrival: Comments: Bed 8 * ED Bed Hold Note - Gabrielle Vee RN - 05/19/2022 6:48 AM EDT Bed: ED-08 Expected date: Expected time: Means of arrival: Comments: Medic documented in this encounterWhitney Ville [address]-11-2023 Note* ED Bed Hold Note - Gabrielle Vee RN - 05/19/2022 6:48 AM EDT Bed: ED-08 Expected date: Expected time: Means of arrival: Comments: Medic [place] [address]-06-2023 Emergency department Note* LEODAN Vasquez - 05/14/2022 7:47 AM EDT Reason for Consult: Transport to [facility] Consulted By: Received in handoff Assessment ARIANA received case in handoff. Patient has been accepted at [facility], with arrival time of 8:00. SW provide Lyft transport. Aircraft De Icer Installer Feyissa driving a flack Tyra Sorrenta. SW escorted patient to ED entrance and waited with patient until Lyft arrived. Action Plan Lyft provided. Beverly Lucas, PITO, PRE BILLING SPECIALIST, [facility], [facility] Medical Social Work [phone] Can also be reached via private chat. [facility] [place] [facility]04-06-2023 Emergency department Note* LEODAN Vasquez - 05/14/2022 7:47 AM EDT Reason for Consult: Transport to [facility] Consulted By: Received in handoff Assessment ARIANA received case in handoff. Patient has been accepted at [facility], with arrival time of 8:00. SW provide Lyft transport. Aircraft De Icer Installer Feyissa driving a flack Tyra Sorrenta. SW escorted patient to ED entrance and waited with patient until Lyft arrived. Action Plan Lyft provided. Beverly Lucas, PITO, LEODAN, [facility], [facility] [employer] [phone] Can also be reached via private chat. * Kwame Cali RN - 05/14/2022 6:03 AM EDT Pt report to Julia TAY * Kwame Cali RN - 05/14/2022 3:27 AM EDT Pt denies any complaints at this time. Pt resting comfortably in bed. NAD. RR equal and unlabored. Pt provided with food sack and water. Call light in reach. * Uriha Villa RN - 05/14/2022 2:52 AM EDT Bed: EE05 Expected date: Expected time: Means of arrival: Comments: Held for triage pt * Uriah Villa RN - 05/14/2022 2:27 AM EDT Patient asked multiple times to obtain urine sample. He was given water multiple times. He is requesting to lay down in a bed and states he has not slept since Wednesday. assurance services manager health care made aware and since medical evaluation is not completed the patient will be bedded after urine sample is obtained. * LEODAN Modi - 05/14/2022 2:08 AM EDT SW met with patient in Triage Room 3 to verify patient's interest in referrals to other treatment facilities. Patient stated he was still interested in seeking treatment. SW inquired if patient had facility preference as this SW attempted to find available beds. Patient requested for this SW to contact [facility] first if possible. Per patient, he was meant to discharge from [facility] earlier this week to long-term program at [facility]. However, when transportation arrived for patient to [facility], he declined and went on a binge. Patient also not interested in returning to [facility] or their partner facility [facility]. SW contacted [email or web address] ([phone]) and spoke with intake staff. Per intake staff, this patient's case already closed in their system due to refusal of services earlier this week. Intake staffstated patient could complete intake again; however, they currently do not have any male beds available at [facility]. Staff stated only availability at this time is a detox bed in [place], [place]. SW stated understanding. Per staff, patient could call and speak with them to determine what programming would be best fit. SW met with patient in Triage Room 3 again and provided information for [facility]. After patient spoke with [facility], he informed this SW he would like to try other facilities. Per patient, [facility] would not be able to provide bed availability update until [phone]. SW attempted to call several other facilities as follows: - [facility] ([phone]): Beds available, patient must call for intake interview at 0800. - [facility] ([phone]): No overnight staff available to speak with. - [facility] ([phone]): Willing to admit patient at 0800 for treatment programming at their facility ([address] [place] [address], [facility]). Per staff, patient needs to bring all discharge paperwork, including labs, along with him. Staff requested call prior to ride arrangement in AM to ensure they know he is en route to facility. SW met with patient at bedside again to provide above updates. Patient made decision to go to [facility] at 0800. SW consulted Medical Team and assurance services manager health care to ensure patient able to remain in ED until can be transported to treatment facility. Per Medical Team and ChargeRN, this is fine. This SW to provide handoff to dayshift SW at shift change fro continued assistance. No further SW needs at this time. ROSSANA Modi, [facility] ED Die Assembler * Kayla Wang MD - 05/14/2022 12:16 AM EDT ED Attending Note CHIEF COMPLAINT Other (Patient returns by EMS from [facility] after being lifted there, the occupancy was full. Patient reports cocaine/ETOH use this evening.) YANY Roman is a 37 y.o. male who presents with concerns for polysubstance use. History of alcohol, cocaine, and methamphetamine use. Was in a detox program until 2 days ago when he was discharged.Since then he has been using. Today he presented to the emergency room a seeking care. He was referred to [facility], however by the time he arrived there they were full and they are unable to accommodate him. Therefore he came back to the emergency room. He has some GERD symptoms that her chronic but nothing new. Past Medical History: Diagnosis Date Bipolar 1 disorder Depression PHYSICAL EXAM VITAL SIGNS: BP 142/77 Pulse 98 Temp 98 F (36.7 C) (Oral) Resp 18 SpO2 98% Smoking StatusEvery Day Physical Exam Vitals and nursing note reviewed. Constitutional: General: He is not in acute distress. Appearance: He is well-developed. HENT: Head: Normocephalic and atraumatic. Eyes: Conjunctiva/sclera: Conjunctivae normal. Pupils: Pupils are equal, round, and reactive to light. Cardiovascular: Rate and Rhythm: Normal rate and regular rhythm. Heart sounds: Normal heart sounds. Pulmonary: Effort: Pulmonary effort is normal. No respiratory distress. Breath sounds: Normal breath sounds. No wheezing. Musculoskeletal: General: No swelling or tenderness. Cervical back: Normal range of motion and neck supple. Right lower leg: No swelling. No edema. Left lower leg: No swelling. No edema. Skin: General: Skin is warm and dry. Neurological: General: No focal deficit present. Mental Status: He is alert and oriented to person, place, and time. Mental status is at baseline. Psychiatric: Mood and Affect: Mood normal. Behavior: Behavior normal. ASSESSMENT, PLAN, & ED COURSE DDx (includes acute life and/or limb threats): substance use disorder, depression, anxiety Medical Decision Making Patient presents seeking treatment for his polysubstance use disorder. He does not appear acutely intoxicated. No medical complaints. Will contact social Work N/C we can place him at a facility. Willobtain screening labs for this. Amount and/or Complexity of Data Reviewed Labs: ordered. Discussion of management or test interpretation with external provider(s): ARIANA to assist with addiction services placement Risk Diagnosis or treatment significantly limited by social determinants of health. Part of this documentation was created with voice recognition software and errors may have occurred. Kayla Wang MD 05/14/22 0149 * LEODAN Modi - 05/14/2022 12:15 AM EDT SW received notification from Triage staff that this patient returned to ED. Per patient, [facility]ake at [facility] but they were at capacity and could not accept him for treatment. Patient transported back to this ED via EMS. Patient is still interested in inpatient treatment at this timefor substance use. This SW to contact local facilities for bed availability. Per Attending, lab work being completed for referral. SW to continue to remain available. ROSSANA Modi, PRE BILLING SPECIALIST ED Die Assembler documented in this [facility]OSDay[facility] Emergency department Note* Kwame Cali RN - 05/14/2022 6:03 AM EDT Pt report to Julia TAY [facility]04-06-2023 Emergency department Note* Kwame Cali RN - 05/14/2022 3:27 AM EDT Pt denies any complaints at this time. Pt resting comfortably in bed. NAD. RR equal and unlabored. Pt provided with food sack and water. Call light in reach. [facility] [place] [facility]04-06-2023 Emergency department Note* Uriah Villa RN - 05/14/2022 2:52 AM EDT Bed: [facility] Expected date: Expected time: Means of arrival: Comments: Held for triage pt [facility] [place] [facility]04-06-2023 Emergency department Note* Uriah Villa RN - 05/14/2022 2:27 AM EDT Patient asked multiple times to obtain urine sample. He was given water multiple times. He is requesting to lay down in a bed and states he has not slept since Wednesday. assurance services manager health care made aware and since medical evaluation is not completed the patient will be bedded after urine sample is obtained. [facility]04-06-2023 Emergency department Note* LEODAN Modi - 05/14/2022 2:08 AM EDT SW met with patient in Triage Room 3 to verify patient's interest in referrals to other treatment facilities. Patient stated he was still interested in seeking treatment. SW inquired if patient had facility preference as this SW attempted to find available beds. Patient requested for this SW to contact [email or web address] first if possible. Per patient, he was meant to discharge from [facility] earlier this week to long-term program at [facility]. However, when transportation arrived for patient to [facility], he declined and went on a binge. Patient also not interested in returning to [facility] or their partner facility [facility]. SW contacted [facility] ([phone]) and spoke with intake staff. Per intake staff, this patient's case already closed in their system due to refusal of services earlier this week. Intake staffstated patient could complete intake again; however, they currently do not have any male beds available at [facility]. Staff stated only availability at this time is a detox bed in [place], [place]. SW stated understanding. Per staff, patient could call and speak with them to determine what programming would be best fit. SW met with patient in Triage Room 3 again and provided information for [facility]. After patient spoke with [facility], he informed this SW he would like to try other facilities. Per patient, [facility] would not be able to provide bed availability update until [phone]. SW attempted to call several other facilities as follows: - [facility] ([phone]): Beds available, patient must call for intake interview at 0800. - [facility] ([phone]): No overnight staff available to speak with. - [facility] ([phone]): Willing to admit patient at 0800 for treatment programming at their facility ([address] [place] [address], [facility]). Per staff, patient needs to bring all discharge paperwork, including labs, along with him. Staff requested call prior to ride arrangement in AM to ensure they know he is en route to facility. SW met with patient at bedside again to provide above updates. Patient made decision to go to [facility] at 0800. SW consulted Medical Team and assurance services manager health care to ensure patient able to remain in ED until can be transported to treatment facility. Per Medical Team and ChargeRN, this is fine. This SW to provide handoff to dayshift SW at shift change fro continued assistance. No further SW needs at this time. ROSSANA Modi, PRE BILLING SPECIALIST ED Die Assembler [facility] [place] [facility]04-06-2023 Physician Emergency department Note* Kayla Wang MD - 05/14/2022 12:16 AM EDT ED Attending Note CHIEF COMPLAINT Other (Patient returns by EMS from [facility] after being lifted there, the occupancy was full. Patient reports cocaine/ETOH use this evening.) YANY Roman is a 37 y.o. male who presents with concerns for polysubstance use. History of alcohol, cocaine, and methamphetamine use. Was in a detox program until 2 days ago when he was discharged.Since then he has been using. Today he presented to the emergency room a seeking care. He was referred [facility], however by the time he arrived there they were full and they are unable to accommodate him. Therefore he came back to the emergency room. He has some GERD symptoms that her chronic but nothing new. Past Medical History: Diagnosis Date Bipolar 1 disorder Depression PHYSICAL EXAM VITAL SIGNS: BP 142/77 Pulse 98 Temp 98 F (36.7 C) (Oral) Resp 18 SpO2 98% Smoking StatusEvery Day Physical Exam Vitals and nursing note reviewed. Constitutional: General: He is not in acute distress. Appearance: He is well-developed. HENT: Head: Normocephalic and atraumatic. Eyes: Conjunctiva/sclera: Conjunctivae normal. Pupils: Pupils are equal, round, and reactive to light. Cardiovascular: Rate and Rhythm: Normal rate and regular rhythm. Heart sounds: Normal heart sounds. Pulmonary: Effort: Pulmonary effort is normal. No respiratory distress. Breath sounds: Normal breath sounds. No wheezing. Musculoskeletal: General: No swelling or tenderness. Cervical back: Normal range of motion and neck supple. Right lower leg: No swelling. No edema. Left lower leg: No swelling. No edema. Skin: General: Skin is warm and dry. Neurological: General: No focal deficit present. Mental Status: He is alert and oriented to person, place, and time. Mental status is at baseline. Psychiatric: Mood and Affect: Mood normal. Behavior: Behavior normal. ASSESSMENT, PLAN, & ED COURSE DDx (includes acute life and/or limb threats): substance use disorder, depression, anxiety Medical Decision Making Patient presents seeking treatment for his polysubstance use disorder. He does not appear acutely intoxicated. No medical complaints. Will contact social Work N/C we can place him at a facility. Willobtain screening labs for this. Amount and/or Complexity of Data Reviewed Labs: ordered. Discussion of management or test interpretation with external provider(s): SW to assist with addiction services placement Risk Diagnosis or treatment significantly limited by social determinants of health. Part of this documentation was created with voice recognition software and errors may have occurred. Kayla Wang MD 05/14/22 0149 [facility] Work Phone: [phone] Emergency department Note* LEODAN Modi - 05/14/2022 12:15 AM EDT SW received notification from Triage staff that this patient returned to ED. Per patient, completedintake at [facility] but they were at capacity and could not accept him for treatment. Patient transported back to this ED via EMS. Patient is still interested in inpatient treatment at this timefor substance use. This SW to contact local facilities for bed availability. Per Attending, lab work being completed for referral. SW to continue to remain available. ROSSANA Modi, PRE BILLING SPECIALIST ED Die Assembler [facility]04-05-2023 Emergency department Note* Lamine Sheriff MD - 05/13/2022 10:22 PM EDT HISTORY Patient presents emergency department for assistance in stopping using alcohol and drugs. Patient states he has been experiencing increased use of alcohol and methamphetamine as well as cocaine for last 4 days. Patient only has complaints of his legs being sore. He states he has been homeless and walking around nonstop for last 4 days. He denies chest pain or shortness of breath. PHYSICAL Heart regular rate rhythm without murmur. Lungs are clear and equal bilaterally. Abdomen normal bowel sounds, soft, nontender, nondistended. No pretibial edema No results found for this visit on 05/13/22. ASSESSMENT Medical Decision Making Peer support has spoken with the patient. He is agreeable to going to [facility]. We are arranging transport at this time to [facility]. Patient has no other physical complaints other than muscle pain from walking. He will be given a dose of Tylenol. Risk OTC drugs. I personally saw and examined the patient today with the resident, was involved in the management, and agree with the history, examination and medical decision making documented except as noted above. I was present for all critical portions of any procedure performed. This note was dictated using [employer] voice recognition software. Attempts at proofreading were made, but errors may occasionally still occur. Lamine Sheriff M.D. Associate Clinical Professor Of Emergency Medicine Lamine Sheriff MD 05/14/22 0024 * LEODAN Modi - 05/13/2022 9:58 PM EDT SW received update from [facility] that patient agreeable to go to [facility]. This SW to arrange Lyft transportation to [facility] on patient behalf. SW received notification that patient is ready for discharge. ARIANA verified address, [facility] [facility]. Transportation reserved via [email or web address] services. Aircraft De Icer Installer is Edwin. Driving a [employer] with the License plate # [id number]. Patient notified and taken to ED lobby. Arrival time is 2234. No additional SW needs at this time. ROSSANA Modi, LEODAN ED Die Assembler * LEODAN Modi - 05/13/2022 9:33 PM EDT Reason for Consult: Substance Use Consulted by: Esteban Shrestha armorer technician: SW received consult from boat patcher plastic regarding this patient potentially interested in resources for substance use treatment. Peer Recovery Support available in ED tonight, so this SW provided referral for patient. SW provided referral to Peer Supporter Kina for linkage to resources and potential treatment referral. SW provided update to Medical Team. This SW to remain available throughout patient's time in ED foradditional support. SW also placed resources in AVS for patient's reference. ROSSANA Modi, PRE BILLING SPECIALIST ED Die Assembler * Judi Whitney MD - 05/13/2022 9:17 PM EDT dEPARTMENT of Emergency Medicine CHIEF COMPLAINT Addiction problem (Pt arrives with c/o relapse. Pt states he has taken a a bunch of meth and cocaine . Denies chest pain. Pt also reports recent alcohol use, denies use every day. Reports numb flashes in bilateral upper and lower extremities. ) YANY Roman is a 37 y.o. male with PMH bipolar 1 disorder, depression and polysubstance abuse whopresents for addiction resources. Per patient, he was recently seen at an outside emergency department 5 days ago where he was referred to [facility], however, instead of going to the facility he went on a 4 day binge . States he 1st started binge drinking alcohol and then transition to cocaine and methamphetamines. Last dose of methamphetamine was this afternoon. Patient states that he is willing to go back to rehabilitation facility to get the help he needs. States he is currently homeless and is tired of feelingthis way. He has no family in the area, [place]. No SI, HI, audiovisual hallucinations, access firearms, or other recreational drug use than stated above. Patient is post be on Effexor and Vistaril and has not taking his medications over last 4 days. REVIEW OF SYSTEMS Review of Systems Constitutional: Negative for activity change, chills and fever. HENT: Negative for ear pain, sinus pain, sneezing and sore throat. Eyes: Negative for photophobia and pain. Cardiovascular: Negative for chest pain and palpitations. Gastrointestinal: Negative for abdominal pain, nausea and vomiting. Genitourinary: Negative for dysuria, flank pain and urgency. Musculoskeletal: Negative for back pain and neck pain. Skin: Negative for rash and wound. Neurological: Negative for dizziness, weakness and headaches. Psychiatric/Behavioral: Negative for confusion. The patient is not nervous/anxious. PAST MEDICAL HISTORY Past Medical History: Diagnosis Date Bipolar 1 disorder Depression SURGICAL HISTORY No past surgical history on file. CURRENT MEDICATIONS No current facility-administered medications for this encounter. Current Outpatient Medications Medication Sig Dispense Refill folic acid 1 MG tablet Take 1 tablet by mouth daily. 30 tablet 0 loratadine 10 MG tablet Take 1 tablet by mouth daily. 30 tablet 0 multivitamin w/ minerals tablet Take 1 tablet by mouth daily. 30 tablet 0 thiamine 100 MG tablet Take 1 tablet by mouth daily. 30 tablet 0 trazodone 150 MG tablet Take 1 tablet by mouth at bedtime. 30 tablet 0 venlafaxine 75 MG Cap SR 24HR capsule XR Take 1 capsule by mouth daily with breakfast. 30 capsule 0 ALLERGIES Allergies Allergen Reactions *Seasonal Runny Nose FAMILY HISTORY Family History Problem Relation Age of Onset Stroke Mother Coronary Artery Disease Mother SOCIAL HISTORY Social History Socioeconomic History Marital status: Single Spouse name: Not on file Number of children: Not on file Years of education: Not on file Highest education level: Not on file Occupational History Not on file Tobacco Use Smoking status: Every Day Types: Cigarettes Smokeless tobacco: Never Vaping Use Vaping Use: Never used Substance and Sexual Activity Alcohol use: Yes Drug use: Yes Types: Methamphetamines, Crack cocaine, Cocaine, Benzodiazepines Sexual activity: Not Currently Other Topics Concern Not on file Social History Narrative Not on file Social Determinants of Health Financial Resource Strain: Not on file Food Insecurity: Not on file Transportation Needs: Not on file Physical Activity: Not on file Stress: Not on file Social Connections: Not on file Intimate Partner Violence: Not on file Housing Stability: Not on file PHYSICAL EXAM BP (!) 154/95 Pulse 100 Temp 97.8 F (36.6 C) (Oral) Resp 21 Ht 1.803 m (5' 11 ) SpO2 98% BMI 33.47 kg/m Smoking Status Every Day Physical Exam Vitals and nursing note reviewed. Constitutional: General: He is not in acute distress. Appearance: He is not ill-appearing. HENT: Head: Normocephalic and atraumatic. Right Ear: External ear normal. Left Ear: External ear normal. Nose: Nose normal. No congestion. Mouth/Throat: Mouth: Mucous membranes are moist. Pharynx: Oropharynx is clear. Eyes: Extraocular Movements: Extraocular movements intact. Conjunctiva/sclera: Conjunctivae normal. Pupils: Pupils are equal, round, and reactive to light. Cardiovascular: Rate and Rhythm: Normal rate and regular rhythm. Pulses: Normal pulses. Heart sounds: Normal heart sounds. No murmur heard. No gallop. Pulmonary: Effort: Pulmonary effort is normal. No respiratory distress. Breath sounds: Normal breath sounds. Abdominal: General: Abdomen is flat. Bowel sounds are normal. There is no distension. Palpations: Abdomen is soft. Tenderness: There is no abdominal tenderness. Genitourinary: Rectum: Normal. Musculoskeletal: General: No swelling, tenderness or deformity. Normal range of motion. Cervical back: Normal range of motion and neck supple. Skin: General: Skin is warm and dry. Capillary Refill: Capillary refill takes less than 2 seconds. Neurological: General: No focal deficit present. Mental Status: He is alert and oriented to person, place, and time. Mental status is at baseline. Cranial Nerves: No cranial nerve deficit. Sensory: No sensory deficit. Motor: No weakness. Psychiatric: Mood and Affect: Mood normal. Behavior: Behavior normal. ED COURSE & MEDICAL DECISION MAKING Medical Decision Making Patient seen in the emergency department today for concern for polysubstance abuse. Patient requesting addiction resources and possible referral to addiction center. Physical exam is unremarkable. Pain was treated with nonnarcotic medication. Spoke to social work who was able to coordinate inpatient rehab facility at [facility]. Patient will be discharged to [facility] for inpatient rehabilitation.I am not concerned for intoxication at this time as patient is GCS 15 he was able to answer questions appropriately. I am not concerned for SI, HI, or audiovisual hallucinations or psychiatric overtones in setting of patient denying all this on exam and otherwise having inappropriate psychiatric screening. I did after school counselor patient on importance of rehabilitation, encouraged that he follow through with this plan. We have coordinated transportation to [facility] as well. Patient was discharged hemodynamically stable in no acute distress. Differential diagnosis includes but not limited to: polysubstance abuse, polysubstance dependence, withdrawal Dispo: discharge Methamphetamine addiction: acute illness or injury Polysubstance abuse: acute illness or injury Uncomplicated alcohol abuse: acute illness or injury Amount and/or Complexity of Data Reviewed External Data Reviewed: notes. Risk OTC drugs. Judi Whitney MD Resident 05/13/222203 [facility] History of Present illness Narrative* Kina Hernandez - 05/13/2022 10:22 PM EDTSummary: Peer Support PRS went to visit pt at bedside. PRS introduced Peer Support and explained role of Peer Supporter. PRS and pt shared lived experience as pt shared about current relapse PRS provided emotional and motivational support as well as offered treatment. Patient accepted treatment, PRS call [facility] for availability which was granted. PRS reported to and SW. Kina Hernandez 05/13/2022 Peer Supporter ER documented [facility] Physician Emergency department Note* Lamine Sheriff MD - 05/13/2022 10:22 PM EDT HISTORY Patient presents emergency department for assistance in stopping using alcohol and drugs. Patient states he has been experiencing increased use of alcohol and methamphetamine as well as cocaine for last 4 days. Patient only has complaints of his legs being sore. He states he has been homeless and walking around nonstop for last 4 days. He denies chest pain or shortness of breath. PHYSICAL Heart regular rate rhythm without murmur. Lungs are clear and equal bilaterally. Abdomen normal bowel sounds, soft, nontender, nondistended. No pretibial edema No results found for this visit on 05/13/22. ASSESSMENT Medical Decision Making Peer support has spoken with the patient. He is agreeable to going to [facility]. We are arranging transport at this time to [facility]. Patient has no other physical complaints other than muscle pain from walking. He will be given a dose of Tylenol. Risk OTC drugs. I personally saw and examined the patient today with the resident, was involved in the management, and agree with the history, examination and medical decision making documented except as noted above. I was present for all critical portions of any procedure performed. This note was dictated using [employer] ([employer]) voice recognition software. Attempts at proofreading were made, but errors may occasionally still occur. Lamine Sheriff M.D. Associate Clinical Professor Of Emergency Medicine Lamine Sheriff MD 05/14/22 0024 [facility] Work Phone: [phone] 827-501504-05-2023 Emergency department Note* LEODAN Modi - 05/13/2022 9:58 PM EDT SW received update from [facility] that patient agreeable to go to [facility]. This SW to arrange Lyft transportation to [facility] on patient behalf. SW received notification that patient is ready for discharge. SW verified address, [address] [place] [address]. Transportation reserved via [email or web address] services. Aircraft De Icer Installer is Edwin. Driving a [email or web address] with the License plate # [id number]. Patient notified and taken to ED lobby. Arrival time is 2235. No additional SW needs at this time. ROSSANA Modi, [facility] ED Die Assembler [facility]04-05-2023 Hospital Discharge instructions* Discharge Instructions* Judi Whitney MD - 05/13/2022 9:39 PM EDT Provider Type Locations Level of Care/LOS Payer Mix Who They Treat Contact [facility] Behavioral Health and Substance Abuse Treatment Center [place], [place] ([place]) [place], [place] (men) Medical Detox Residential (average 90-180 days) Medicaid Medicare Adults (18+) Admissions: , option 1 Intake Hours; M-F 9-2pm [facility] Medical Assisted Treatment and IOP/OP Services [place], [place] Intensive Outpatient (IOP) Outpatient Services Medical Assisted Treatment Medicaid Medicare Self-Pay Adults (18+) LGBTQ+ Main: Cyndi: [facility] (subset of [facility]) [place], [place] Intensive Outpatient with IntegratedHousing (average 90-180 days) Intensive Outpatient Medicaid Medicare No Insurance Adult Women Women LGBTQ+ Adolescents (OP) Main: Appointment only assessment 4-6 weeks wait time [facility] Medical Assisted Treatment and IOP/OP Services [place], [place] 10+ [place] Locations Intensive Outpatient (IOP) Outpatient Services Medical Assisted Treatment Medicaid Medicare Self-Pay Other Adults Women [place]: [place]: 24/7 Admissions [facility] Sub[facility] Treatment [facility] locations Residential (average 90 days) Sober Living Medicaid Self-Pay Adults (18+) Main: Typical intake is 8am-5pm M-F 4-6 weeks wait for women, 3-5 weeks for men Residential - Maritza Kwok, Sober Living - Laura Velasquez [facility] Acute Psych Facility with Dual Diagnosis [place], [place] (OP only) Medical Detox Inpatient Psych (3-10 days avg.) Partial Hospitalization (PHP) Intensive Outpatient (IOP) Medicaid Medicare Self-Pay Other Adults (18+) Adolescents LGBTQ+ Women [place] Main: [facility] Main: 24/7 Admissions [facility] Recovery Housing with Outpatient Substance Abuse and Dual Diagnosis Treatment Services [place], [place] Partial Hospitalization (PHP), Intensive Outpatient (IOP) with Recovery Housing (takes Medical- Assisted Treatment) Peer Support & Life Skills Medicaid Medicare No Insurance Adults (18+) LGBTQ+ Women Main: Typical intake is 8am-5pm M-F supply coordinator [facility] (Detox Division) Medical Detox [place], [place] Medical Detox (average 3-7 days) Builds Aftercare Plan Medicaid Medicare Other Adults (18+) LGBTQ+ Yu Jeffery: By appt only 8am-5pm M-F [facility] ([facility] Recovery Services) [place] Women's Residential Services [facility] Women's Residential [facility] Men's Residential Addiction and Behavioral Health Treatment Program [place], [place] and [place], [place] (Women's) [place], [place] (Men's) Women's Residential (average 90 days) Men's Residential (average 90 days) Sober Living Medicaid Medicare No Insurance Adults (18+) Women LGBTQ+ Main: For residential complete phone assessment with Yu Headley 1 week wait time Call main number for outpatient [facility] Substance Abuse Treatment Facility [place], [place] Medical Detox (7-10 days) Residential (30 days) Medicaid Self-Pay Adults (18+) Main: Get on waitlist, then call in daily for bed status 1 week or less wait time depending on availability [facility] ([facility] with [facility]) [place], [place] Medical Detox Residential (21-28 days) PHP/IOP/OP Medicare Other Adults (18+) LGBTQ+ Main: Intake is 8am - 11pm (8am-10pm on weekends) Phone Assessment [facility] Behavioral Health and Substance Abuse Treatment and Housing [place], [place] Intensive Outpatient (IOP) with housing Sober Living (52-week program) Medicaid Medicare Self-Pay No Insurance Adults (18+) LGBTQ+ Main: Pratibha Nesbitt: [phone] [facility] Detox Detox Division of [place], [place] Medical Detox Builds Aftercare Plan Medicaid Medicare Other No Insurance Adults (18+) Couples Women Main: Natalie Escalante: Intake is 8am-5pm M-F [facility] Substance Abuse and Behavioral Health Treatment [facility] [place] Residential (21-28 days) Intensive Outpatient (IOP) Medicaid Other Adults Women (case by case) [place] [facility] Intake is 8am-5pm M-F, phone assessment 24-48 hours for min [facility] Behavioral Health and Substance Abuse Treatment [place], [place] Additional [place] Locations Addiction Stabilization/Detox Residential (average 30 days) Outpatient Services Long-term Options (90-180 days) Family Recovery Housing Medicaid Medicare No Insurance Adults (18+) Adolescents (residential) Women LGBTQ+ Main: Detox ([facility]): 24/7 admissions and walk-ins Bed availability varies, continuously call to check [facility] Substance Abuse Treatment [place], [place] Medical Detox (Men and Women 5-7 days) Men's Only Residential (average 30 days) Medicaid Self-Pay Other Adults (18+) Main: Intake is 8am-8pm M-F, 9am-5pm Sat/Sun, phone assessment [facility] Behavioral Health and Substance Abuse Treatment [place], [place] Medical Detox Partial Hospitalization (PHP) with Housing (avg 30-60 days) Intensive Outpatient (IOP) Medicaid Adults Women (no detox) LGBTQ+ Main: 24/7 Admissions [facility] Acute Psych Facility with Dual Diagnosis [place], [place] Courtesy Detox Inpatient Psych (average 3-10 days) Partial Hospitalization (PHP) Intensive Outpatient (IOP) Medicaid Medicare Other Adults (18+) LGBTQ+ Women Main: 24/7 Admissions Outreach Crisis Counseling Medical Detox Facility [place] Medical Detox (3-10 days) Builds Aftercare Plan Medicaid Medicare Self-Pay No Insurance Adults (18+) LGBTQ+ Main: Intake is 24/7, walk-ins Call ahead U Carleen Manilla Medical Detox Stabilization [place], [place] Medical Detox (3-5 days) Builds Aftercare Plan Medicaid Medicare Other Adults (18+) Women LGBTQ+ Main: , option 2 Intake is 8am-5pm M-F, phone assessment - once complete someone will call when bed is available [facility] with Dual Diagnosis [place], [place] Medical detox (limited) Residential (21-30 days, men and women) Outpatient Services (referred to PHP at [facility]) Medicare Adults (18+) Women LGBTQ+ Main: 24/7 Admissions [facility] Behavioral Health and Substance Abuse Treatment Center [place], [place] Withdraw Management Residential (average 30 days) Outpatient Services Medicaid Self-Pay Adults Main: 24/7 Admissions [facility] OUTPATIENT MEDICAL MGMNT. [facility] Detox(outpt) MEDICAID ADULTS [address] [facility] Partial Hosp. SELFPAY [phone] IOP, Outpt. Aftercare SLIDING FEE SCALE Walk-in hours M-F 8 AM-5 PM Mental Health Providers Community Counseling and Behavioral Health Agencies *Note: Please check with your Insurance to see if they are in network with below providers. PROVIDER LISTING LOCATION PHONE NUMBER Payment Accepted [facility] [phone] ([facility]), ([place]) Medicaid Based Only [facility] Various Locations [phone] Insurance, Medicaid, Medicare, Sliding Scale Fee [facility] [address] [facility] [phone] Insurance, Medicaid, Medicare, Sliding Scale Fee [facility] [address] [place] [address] Insurance, Medicaid, Medicare, Sliding Scale Fee [facility] [address] [place], [place] [address] [facility] [phone] Insurance, Medicaid, Sliding Scale Fee [address] [place], [place] [phone] Insurance, Medicaid, Sliding Scale Fee [facility] [phone] Insurance, Medicaid, Sliding Scale Fee [facility] Family Services [address] [place] [address] Insurance, Some Medicaid Plans [facility] [place] [facility] [address] [facility] [phone] Free Counseling for Victims of Crime and Trauma [facility] [address] Insurance, Medicare, Medicaid Netcare Access [address] [place] [address] [address] [facility] [phone] Medicaid, Medicare, Sliding Scale Fee [facility] [place] [phone] [facility] [phone] [place] [phone] Insurance, Medicaid, Medicare, Sliding Scale Fee [facility] [phone] [phone] [phone] Insurance, Medicaid, Sliding Scale Fee [facility] [facility] [phone] Insurance, Medicaid, Medicare, Sliding Scale Fee [facility] [phone] Insurance, Medicaid, [employer] [facility] [address] [phone] [phone] Medicaid, Sliding Scale Fee Suicide Prevention Hotline Teen Hotline Senior Hotline * Attachments The following attachments cannot be sent through Care Everywhere. * Substance Use Disorder: General Info (Palestinian) documented in this [facility] Emergency department Note* LEODAN Modi - 05/13/2022 9:33 PM EDT Reason for Consult: Substance Use Consulted by: Esteban Shrestha, armorer technician: SW received consult from boat patcher plastic regarding this patient potentially interested in resources for substance use treatment. Peer Recovery Support available in ED tonight, so this SW provided referral for patient. SW provided referral to Peer Supporter Kina for linkage to resources and potential treatment referral. SW provided update to Medical Team. This SW to remain available throughout patient's time in ED foradditional support. SW also placed resources in AVS for patient's reference. ORSSANA Modi, PRE BILLING SPECIALIST ED Die Assembler [facility]04-05-2023 Physician Emergency department Note* Judi Whitney MD - 05/13/2022 9:17 PM EDT dEPARTMENT of Emergency Medicine CHIEF COMPLAINT Addiction problem (Pt arrives with c/o relapse. Pt states he has taken a a bunch of meth and cocaine . Denies chest pain. Pt also reports recent alcohol use, denies use every day. Reports numb flashes in bilateral upper and lower extremities. ) YANY Roman is a 37 y.o. male with PMH bipolar 1 disorder, depression and polysubstance abuse whopresents for addiction resources. Per patient, he was recently seen at an outside emergency department 5 days ago where he was referred to Rehabilitation Facility, however, instead of going to the facility he went on a 4 day binge . States he 1st started binge drinking alcohol and then transition to cocaine and methamphetamines. Last dose of methamphetamine was this afternoon. Patient states that he is willing to go back to rehabilitation facility to get the help he needs. States he is currently homeless and is tired of feelingthis way. He has no family in the area, [place]. No SI, HI, audiovisual hallucinations, access firearms, or other recreational drug use than stated above. Patient is post be on Effexor and Vistaril and has not taking his medications over last 4 days. REVIEW OF SYSTEMS Review of Systems Constitutional: Negative for activity change, chills and fever. HENT: Negative for ear pain, sinus pain, sneezing and sore throat. Eyes: Negative for photophobia and pain. Cardiovascular: Negative for chest pain and palpitations. Gastrointestinal: Negative for abdominal pain, nausea and vomiting. Genitourinary: Negative for dysuria, flank pain and urgency. Musculoskeletal: Negative for back pain and neck pain. Skin: Negative for rash and wound. Neurological: Negative for dizziness, weakness and headaches. Psychiatric/Behavioral: Negative for confusion. The patient is not nervous/anxious. PAST MEDICAL HISTORY Past Medical History: Diagnosis Date Bipolar 1 disorder Depression SURGICAL HISTORY No past surgical history on file. CURRENT MEDICATIONS No current facility-administered medications for this encounter. Current Outpatient Medications Medication Sig Dispense Refill folic acid 1 MG tablet Take 1 tablet by mouth daily. 30 tablet 0 loratadine 10 MG tablet Take 1 tablet by mouth daily. 30 tablet 0 multivitamin w/ minerals tablet Take 1 tablet by mouth daily. 30 tablet 0 thiamine 100 MG tablet Take 1 tablet by mouth daily. 30 tablet 0 trazodone 150 MG tablet Take 1 tablet by mouth at bedtime. 30 tablet 0 venlafaxine 75 MG Cap SR 24HR capsule XR Take 1 capsule by mouth daily with breakfast. 30 capsule 0 ALLERGIES Allergies Allergen Reactions *Seasonal Runny Nose FAMILY HISTORY Family History Problem Relation Age of Onset Stroke Mother Coronary Artery Disease Mother SOCIAL HISTORY Social History Socioeconomic History Marital status: Single Spouse name: Not on file Number of children: Not on file Years of education: Not on file Highest education level: Not on file Occupational History Not on file Tobacco Use Smoking status: Every Day Types: Cigarettes Smokeless tobacco: Never Vaping Use Vaping Use: Never used Substance and Sexual Activity Alcohol use: Yes Drug use: Yes Types: Methamphetamines, Crack cocaine, Cocaine, Benzodiazepines Sexual activity: Not Currently Other Topics Concern Not on file Social History Narrative Not on file Social Determinants of Health Financial Resource Strain: Not on file Food Insecurity: Not on file Transportation Needs: Not on file Physical Activity: Not on file Stress: Not on file Social Connections: Not on file Intimate Partner Violence: Not on file Housing Stability: Not on file PHYSICAL EXAM BP (!) 154/95 Pulse 100 Temp 97.8 F (36.6 C) (Oral) Resp 21 Ht 1.803 m (5' 11 ) SpO2 98% BMI 33.47 kg/m Smoking Status Every Day Physical Exam Vitals and nursing note reviewed. Constitutional: General: He is not in acute distress. Appearance: He is not ill-appearing. HENT: Head: Normocephalic and atraumatic. Right Ear: External ear normal. Left Ear: External ear normal. Nose: Nose normal. No congestion. Mouth/Throat: Mouth: Mucous membranes are moist. Pharynx: Oropharynx is clear. Eyes: Extraocular Movements: Extraocular movements intact. Conjunctiva/sclera: Conjunctivae normal. Pupils: Pupils are equal, round, and reactive to light. Cardiovascular: Rate and Rhythm: Normal rate and regular rhythm. Pulses: Normal pulses. Heart sounds: Normal heart sounds. No murmur heard. No gallop. Pulmonary: Effort: Pulmonary effort is normal. No respiratory distress. Breath sounds: Normal breath sounds. Abdominal: General: Abdomen is flat. Bowel sounds are normal. There is no distension. Palpations: Abdomen is soft. Tenderness: There is no abdominal tenderness. Genitourinary: Rectum: Normal. Musculoskeletal: General: No swelling, tenderness or deformity. Normal range of motion. Cervical back: Normal range of motion and neck supple. Skin: General: Skin is warm and dry. Capillary Refill: Capillary refill takes less than 2 seconds. Neurological: General: No focal deficit present. Mental Status: He is alert and oriented to person, place, and time. Mental status is at baseline. Cranial Nerves: No cranial nerve deficit. Sensory: No sensory deficit. Motor: No weakness. Psychiatric: Mood and Affect: Mood normal. Behavior: Behavior normal. ED COURSE & MEDICAL DECISION MAKING Medical Decision Making Patient seen in the emergency department today for concern for polysubstance abuse. Patient requesting addiction resources and possible referral to addiction center. Physical exam is unremarkable. Pain was treated with nonnarcotic medication. Spoke to social work who was able to coordinate inpatient rehab facility at [facility]. [facility] [facility] for inpatient rehabilitation.I am not concerned for intoxication at this time as patient is GCS 15 he was able to answer questions appropriately. I am not concerned for SI, HI, or audiovisual hallucinations or psychiatric overtones in setting of patient denying all this on exam and otherwise having inappropriate psychiatric screening. I did after school counselor patient on importance of rehabilitation, encouraged that he follow through with this plan. We have coordinated transportation to [facility] as well. Patient was discharged hemodynamically stable in no acute distress. Differential diagnosis includes but not limited to: polysubstance abuse, polysubstance dependence, withdrawal Dispo: discharge Methamphetamine addiction: acute illness or injury Polysubstance abuse: acute illness or injury Uncomplicated alcohol abuse: acute illness or injury Amount and/or Complexity of Data Reviewed External Data Reviewed: notes. Risk OTC drugs. Judi Whitney MD Resident 05/13/222203 [facility] Work Phone: [phone]) 549-467504-04-2023 Physician Emergency department Note* Jena Massey DO - 05/12/2022 3:47 AM EDT The patient was brought in by EMS tonight for concern for AMS and intoxication. The patient was initially refusing to answer any questions, and was agitated, and angry at why he was here. He admits to drinking however denies everyday alcohol use. The patient denies any SI or HI or hallucinations noconcern for seizure. The patient had vitals that were WNL and he decided he wanted to leave the hospital. The patient could answer questions and was steady on his feet and walked out of the emergencydepartment. Jena Massey DO 05/12/22348 [facility] Work Phone: [phone] Emergency department Note* Jena Massey DO - 05/12/2022 3:47 AM EDT The patient was brought in by EMS tonight for concern for AMS and intoxication. The patient was initially refusing to answer any questions, and was agitated, and angry at why he was here. He admits to drinking however denies everyday alcohol use. The patient denies any SI or HI or hallucinations noconcern for seizure. The patient had vitals that were WNL and he decided he wanted to leave the hospital. The patient could answer questions and was steady on his feet and walked out of the emergencydepartment. Jena Massey DO 05/12/22348 * Neal Metzger RN - 05/12/2022 3:29 AM EDT Pt left this facility, denied any safety concerns, denies SI/HI, states he is safe to leave. VS WNL. Pt able to state intention to leave and demonstrated linear thinking and understanding of circumstances. * Neal Metzger RN - 05/12/2022 3:[address] Massey at bedside speaking with patient. [facility] Emergency department Note* Neal Metzger RN - 05/12/2022 3:29 AM EDT Pt left this facility, denied any safety concerns, denies SI/HI, states he is safe to leave. VS WNL. Pt able to state intention to leave and demonstrated linear thinking and understanding of circumstances. [facility]* Neal Metzger RN - 05/12/2022 3:[address] Massey at bedside speaking with patient. [facility]01-24-2023 History of Present illness Narrative* Eileen Evangelista LMSW - 03/03/2022 9:56 AM EST Pt requested to leave prior to ER SW evaluation. Pt not held on pink slip, discharged. Case closed.. * John Paul Cortez RN - 03/03/2022 9:48 AM EST Patient was pacing and ready for discharge. D/C papers printed by and this RN went in to properly discharge. Patient refused discharge teaching and vitals. John Paul Cortez RN 03/03/22 0949 * Ashley Solorio MD - 03/03/2022 6:54 AM EST Patient signed out to me awaiting sobriety. Report the patient mentioned SI to EMS but did not mention it here to staff. At time of handoff patient is still intoxicated, will place social work consultation so they can see him when he can be interviewed. Anticipate discharge. * Jamin Hough MD - 03/03/2022 3:43 AM EST Images from the original note were not included. Chief Complaint Patient presents with Alcohol Intoxication Patient brought in by medics after being found at a gas station by police. Patient states he is depressed with a severe drinking problem, and has been drinking all day. Patient initially told medics he was having suicidal thoughts, but is denying those during triage. History of Present Illness: Mckinley Roman is a 37 y.o. male presents after being found drunk at [facility] station. Unclear who called EMS. Patient states he drank a very heavy amount of liquor drink. Patient reported to the EMS he was having suicidal thoughts although he denies any SI on arrival to nursing staff and myself. Patient is clearly intoxicated and denies other complaints at this time. Discussed case with independent historian: Discussed with EMS PAST MEDICAL HISTORY: There is no problem list on file for this patient. Past Medical History: Diagnosis Date Generalized anxiety disorder Major depression Nerve damage Rib fracture 03/26/2021 TBI (traumatic brain injury)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 UZIEL Peraza - 10/28/2021 11:05 PM EDT Pt repeatedly asking where he is. Pt keeps stating he wants to leave. Pt reminded he is not able toleave at this time. * EMANUEL Bruno - 10/28/2021 10:54 PM EDT Reason for Consult: Alcohol intoxication/treatment Consulted by: Medical team Assessment Patient presented to the ED via EMS for alcohol intoxication. Patient requested help with his alcoholism. SW met with patient at the bedside. Patient states he is struggling badly with alcohol and with cocaine. Patient was not able to quantify his alcohol use. He would only state, All I know is that I need help . Patient states he would like to go to [facility]. SW contacted [facility] intake and made a referral. They will accept the patient. Patient was informed. Plan Patient was provided a LYFT to transport to [facility] at [address] [facility] LIC#[id number]. Pt denying any other needs at this time. SW to follow up as needed. EMANUEL Patino-S ED Die Assembler * Chapis Paredes RN - 10/28/2021 10:50 PM EDT Patient noted to be sitting at end of ED cot - Patient educated to not sit at end of ED cot as his weight could cause the cot to flip up and injury him. Patient replies do you think Im stupid . Patient continues to sit at edge of ED cot despite further attempts to educate. * Carito Walsh MD - 10/28/2021 10:23 PM EDT This is a SHARED visit with the Advanced Practice Provider ED Attending ED ATTENDING NOTE Chief Complaint: Alcohol intoxication (Pt arrives via medic for alcohol intoxication. Pt was drinking at a bar when he asked the bartended to call 911 so he could be seen at the hospital. Pt ambulatory upon arrival. Pt asking for help to get treatment. Pt reports nausea and a headache) HPI: Mckinley oRman is a 36 y.o. male with a past medical history significant for alcohol dependence who presents with alcohol intoxication. States he wants help. Unable to obtain further history at this time 2/2 to intoxication. ROS: Unable to obtain due to intoxication Past Medical History: Past Medical History: Diagnosis Date Bipolar 1 disorder Depression Vital Signs: BP 122/68 Pulse 90 Temp 99.3 F (37.4 C) (Tympanic) Resp 16 Ht 1.803 m (5' 11 ) SpO2 94% BMI 33.64 kg/m Smoking Status Current Every Day Smoker Pertinent Exam: General: In general the patient is in no acute distress. Intoxicated HEENT: NCAT Neck: Normal inspection Respiratory: No respiratory distress CVS: Heart is RR Abdomen: Non distended Skin: Normal color Extremities: No deformities Neuro: Oriented x3, GCS of 15 Psych: Mood and affect normal. No results found for this visit on 10/28/21. No orders to display ED COURSE, MEDICAL DECISION MAKING, PLAN OF CARE On 10/28/2021 I saw and evaluated the patient with REZA. I provided a substantive portion of the carefor this patient. I personally performed all aspects of the medical decision making for this encounter. I have reviewed and verified this with the REZA so that it accurately reflects our care. Differential Diagnosis/Clinical Impression: EtOH intoxication. No signs of withdrawal. Requesting help with detox. Will obtain ETOH. If less than 300 will have SW evaluate and potentially place if not [facility] with resources. Carito Walsh MD ED Attending Physician [facility] Carito Walsh MD 10/28/21 0007 * Deepa Cotto RN - 10/28/2021 10:12 PM EDT ..ED Triage Covid-19 Screen Is the patient complaining of the following symptoms recently? Positive screen is the presence of fever alone, or two or more of the other symptoms. Fever: no Chills: no Cough: no Dyspnea: no Fatigue: no Headache: no Myalgias: no Sore Throat: no Nasal congestion or rhinorrhea: no Loss of taste/smell: no Nausea or vomiting: no Diarrhea: no Confirmed exposure to Covid-19 positive contact in the last 14 days: no Negative screen * Anival Ritter PA-C - 10/28/2021 10:11 PM EDT Emergency Department Report [facility] [[email or web address]] EMERGENCY DEPARTMENT Service Date:.10/28/21 PCP: No primary care provider on file. Chief Complaint: Chief Complaint Patient presents with Alcohol intoxication Pt arrives via medic for alcohol intoxication. Pt was drinking at a bar when he asked the bartendedto call 911 so he could be seen at the hospital. Pt ambulatory upon arrival. Pt asking for help to get treatment. Pt reports nausea and a headache HPI Mckinley Roman is a 36 y.o. male presents to the ED today due to concern for alcohol intoxication. Patient states he was in [place] for alcohol rehabilitation but went to the bar and drank several alcoholic beverages. Unknown amount of whiskey. Patient was intoxicated at the bar and workers' compensation claims examiner called 911 and patient requested to go to the emergency department. Upon arrival he is intoxicated but ambulatory. Denies any fall or trauma. No suicidal or homicidal ideation. Denies drug use. Would like resources and help with alcohol use disorder. Reports nausea that is chronic when he drinks alcohol Review of Systems: Review of Systems Constitutional: Negative. HENT: Negative. Respiratory: Negative. Cardiovascular: Negative. Gastrointestinal: Positive for nausea. Negative for diarrhea and vomiting. Musculoskeletal: Negative. Skin: Negative. Allergic/Immunologic: Negative. Neurological: Negative. Hematological: Negative. Psychiatric/Behavioral: Negative. Past Medical History: Past Medical History: Diagnosis Date Bipolar 1 disorder Depression Past Surgical History: No past surgical history on file. Allergies: Allergies Allergen Reactions *Seasonal Runny Nose Medications: Patient's Medications New Prescriptions No medications on file Previous Medications FOLIC ACID 1 MG TABLET Take 1 tablet by mouth daily. LORATADINE 10 MG TABLET Take 1 tablet by mouth daily. MULTIVITAMIN W/ MINERALS TABLET Take 1 tablet by mouth daily. THIAMINE 100 MG TABLET Take 1 tablet by mouth daily. TRAZODONE 150 MG TABLET Take 1 tablet by mouth at bedtime. VENLAFAXINE 75 MG CAP SR 24HR CAPSULE XR Take 1 capsule by mouth daily with breakfast. Modified Medications No medications on file Discontinued Medications No medications on file Family History: No family history on file. Social History: Social History Socioeconomic History Marital status: Single Spouse name: Not on file Number of children: Not on file Years of education: Not on file Highest education level: Not on file Occupational History Not on file Tobacco Use Smoking status: Current Every Day Smoker Types: Cigarettes Smokeless tobacco: Never Used Vaping Use Vaping Use: Never used Substance and Sexual Activity Alcohol use: Yes Drug use: Yes Types: Methamphetamines, Crack cocaine, Cocaine, Benzodiazepines Sexual activity: Not on file Other Topics Concern Not on file Social History Narrative Not on file Social Determinants of Health Financial Resource Strain: Not on file Food Insecurity: Not on file Transportation Needs: Not on file Physical Activity: Not on file Stress: Not on file Social Connections: Not on file Intimate Partner Violence: Not on file Housing Stability: Not on file Physical Exam: Physical Exam Vitals and nursing note reviewed. Constitutional: General: He is not in acute distress. Appearance: Normal appearance. He is normal weight. He is not ill-appearing or toxic-appearing. HENT: Head: Normocephalic and atraumatic. Right Ear: External ear normal. Left Ear: External ear normal. Nose: Nose normal. Mouth/Throat: Mouth: Mucous membranes are moist. Pharynx: Oropharynx is clear. Eyes: Extraocular Movements: Extraocular movements intact. Conjunctiva/sclera: Conjunctivae normal. Pupils: Pupils are equal, round, and reactive to light. Cardiovascular: Rate and Rhythm: Normal rate and regular rhythm. Pulses: Normal pulses. Heart sounds: Normal heart sounds. Pulmonary: Effort: Pulmonary effort is normal. Breath sounds: Normal breath sounds. Abdominal: General: Bowel sounds are normal. There is no distension. Palpations: Abdomen is soft. There is no mass. Tenderness: There is no abdominal tenderness. There is no guarding or rebound. Hernia: No hernia is present. Musculoskeletal: General: No swelling, tenderness, deformity or signs of injury. Normal range of motion. Cervical back: Normal range of motion and neck supple. No rigidity. Skin: General: Skin is warm and dry. Capillary Refill: Capillary refill takes less than 2 seconds. Findings: No bruising. Neurological: General: No focal deficit present. Mental Status: He is alert and oriented to person, place, and time. Motor: No weakness. Psychiatric: Mood and Affect: Mood normal. Vital Signs During ED Visit Patient Vitals for the past 24 hrs: BP Temp Temp src Pulse Resp SpO2 Height 10/28/212207 -- -- -- -- -- -- 1.803 m (5' 11 ) 10/28/212206 122/68 99.3 F (37.4 C) Tympanic 90 16 94 % -- Orders/Results: Orders Placed This Encounter RAINBOW DRAW CLINICAL DRUG OF ABUSE PANEL ALCOHOL (ETHANOL),BLOOD GOLD TOP TUBE MINT GREEN TOP TUBE LAVENDER TOP TUBE LT BLUE TOP TUBE Results for orders placed or performed during the hospital encounter of 08/20/21 DRUGS OF ABUSE SCREEN 10, URINE Result Value Ref Range Amphetamine/Methamphetamine Negative Cutoff: 500 ng/mL Barbiturates Negative Cutoff: 200 ng/mL Benzodiazepines Presumptive Positive (A) Cutoff: 200 ng/mL Buprenorphine Negative Cutoff: 5 ng/mL Cannabinoids (Marijuana) Negative Cutoff: 50 ng/mL Cocaine Negative Cutoff: 150 ng/mL Fentanyl Negative Cutoff: 1 ng/mL Methadone Negative Cutoff: 300 ng/mL Opiates Negative Cutoff: 300 ng/mL Oxycodone Negative Cutoff: 100 ng/mL ACETAMINOPHEN LEVEL Result Value Ref Range Acetaminophen <10.0 Therapeutic Range: 10-32 mcg/mL mcg/mL ALCOHOL (ETHANOL),BLOOD Result Value Ref Range Alcohol, Serum 81 (H) <10 mg/dL [facility] 7 - ED Result Value Ref Range Sodium 135 135 - 145 mmol/L Potassium 4.1 3.5 - 5.0 mmol/L Chloride 104 98 - 108 mmol/L CO2 22 21 - 31 mmol/L Glucose 87 70 - 99 mg/dL BUN 15 7 - 25 mg/dL Creatinine 1.20 0.70 - 1.30 mg/dL Bun/Crea Ratio 13 Osmolality (Calculated) 284 278 - 305 mOsm/kg Anion Gap 13 7 - 17 mmol/L eGFR, CKD-EPI, Male 80 >=60 mL/min/1.73m2 HEPATIC FUNCTION PANEL Result Value Ref Range Albumin 4.1 3.5 - 5.0 g/dL Bilirubin Direct 0.1 <0.3 mg/dL Bilirubin Total 0.8 <1.5 mg/dL ALP 83 32 - 126 U/L ALT 29 10 - 52 U/L AST 33 10 - 39 U/L Total Protein 6.7 6.4 - 8.3 g/dL CALCIUM Result Value Ref Range Calcium 8.8 8.6 - 10.5 mg/dL MAGNESIUM Result Value Ref Range Magnesium 1.8 1.6 - 2.6 mg/dL CHEM 7 (LYTES,BUN,CREA,GLUC) Result Value Ref Range Sodium 137 135 - 145 mmol/L Potassium 3.3 (L) 3.5 - 5.0 mmol/L Chloride 103 98 - 108 mmol/L CO2 22 21 - 31 mmol/L Glucose 82 70 - 99 mg/dL BUN 17 7 - 25 mg/dL Creatinine 1.14 0.70 - 1.30 mg/dL Bun/Crea Ratio 15 Osmolality (Calculated) 286 278 - 305 mOsm/kg Anion Gap 15 7 - 17 mmol/L eGFR, CKD-EPI, Male 85 >=60 mL/min/1.73m2 PT,INR,PTT Result Value Ref Range PT 14.4 (H) 11.9 - 14.2 sec INR 1.1 0.9 - 1.1 PTT 29.1 24.0 - 34.3 sec CBC AND ELECTRONIC DIFF Result Value Ref Range WBC Count 11.71 (H) 3.73 - 10.10 K/uL RBC Count 5.28 4.38 - 5.83 M/uL Hemoglobin 15.5 13.4 - 16.8 g/dL Hematocrit 43.9 39.6 - 48.8 % Mean Cell Volume 83.1 79.0 - 94.5 fL Mean Cell Hgb 29.4 26.1 - 33.3 pg Mean Cell Hgb Conc 35.3 31.9 - 36.5 g/dL RBC Distribution 13.2 10.9 - 14.3 % Platelet Count 273 146 - 337 K/uL Mean Platelet Volume 8.5 (L) 8.7 - 12.3 fL DIFF STATUS Electronic Differential Segs + Bands Auto 61.3 % Immature Grans % 0.3 % Lymphocyte % Auto 24.8 % Monocyte % Auto 9.4 % Eosinophil % Auto 3.8 % Basophil % Auto 0.4 % Nucleated RBC 0.0 <=0.2 /100 WBC Segs + Bands,Absolute Auto 7.19 (H) 1.57 - 6.19 K/uL Immature Grans Absolute <0.04 <=0.07 K/uL Abs Lymph Auto 2.90 0.83 - 3.57 K/uL Abs [place] Auto 1.10 (H) 0.24 - 0.93 K/uL Abs Eos Auto 0.44 0.00 - 0.48 K/uL Abs Baso Auto 0.05 0.00 - 0.09 K/uL CBC,PLATELETS Result Value Ref Range WBC Count 5.47 3.73 - 10.10 K/uL RBC Count 4.85 4.38 - 5.83 M/uL Hemoglobin 14.3 13.4 - 16.8 g/dL Hematocrit 40.9 39.6 - 48.8 % Mean Cell Volume 84.3 79.0 - 94.5 fL Mean Cell Hgb 29.5 26.1 - 33.3 pg Mean Cell Hgb Conc 35.0 31.9 - 36.5 g/dL RBC Distribution 13.2 10.9 - 14.3 % Platelet Count 216 146 - 337 K/uL Mean Platelet Volume 8.6 (L) 8.7 - 12.3 fL CHEM 7 (LYTES,BUN,CREA,GLUC) Result Value Ref Range Sodium 136 135 - 145 mmol/L Potassium 3.5 3.5 - 5.0 mmol/L Chloride 106 98 - 108 mmol/L CO2 23 21 - 31 mmol/L Glucose 99 70 - 99 mg/dL BUN 18 7 - 25 mg/dL Creatinine 1.00 0.70 - 1.30 mg/dL Bun/Crea Ratio 18 Osmolality (Calculated) 286 278 - 305 mOsm/kg Anion Gap 11 7 - 17 mmol/L eGFR, CKD-EPI, Male >90 >=60 mL/min/1.73m2 MAGNESIUM Result Value Ref Range Magnesium 1.8 1.6 - 2.6 mg/dL HEPATIC FUNCTION PANEL Result Value Ref Range Albumin 3.4 (L) 3.5 - 5.0 g/dL Bilirubin Direct <0.1 <0.3 mg/dL Bilirubin Total 0.2 <1.5 mg/dL ALP 74 32 - 126 U/L ALT 26 10 - 52 U/L AST 25 10 - 39 U/L Total Protein 5.8 (L) 6.4 - 8.3 g/dL PT,INR,PTT Result Value Ref Range PT 13.3 11.9 - 14.2 sec INR 1.0 0.9 - 1.1 PTT 29.8 24.0 - 34.3 sec Radiographic Imaging No orders to display Procedures: Procedures ED Summary/MDM Patient has known intoxication and alcohol use disorder. Patient's blood alcohol is 200. He has metwith social work and we have been able to get him a place at [facility]. He is clinically sober andambulatory at this time. Will discharge. Attending physician did a [id number] evaluation the patient participated in plan of care An After Visit Summary was printed and given to the patient with above information. . Anival Ritter PA-C 10/29/21 0113 [facility]* UZIEL Peraza - 10/29/2021 12:36 AM EDT Pt given a ham sandwich. Pt sitting up in bed eating [facility]09-21-2022 Emergency department Note* UZIEL Bradford - 10/29/2021 12:25 AM EDT Pt has 1 green bag in bin 5 [facility]09-20-2022 Emergency department Note* UZIEL Peraza - 10/28/2021 11:05 PM EDT Pt repeatedly asking where he is. Pt keeps stating he wants to leave. Pt reminded he is not able toleave at this time. [facility]09-20-2022 Emergency department Note* EMANUEL Bruno - 10/28/2021 10:54 PM EDT Reason for Consult: Alcohol intoxication/treatment Consulted by: Medical team Assessment Patient presented to the ED via EMS for alcohol intoxication. Patient requested help with his alcoholism. ARIANA met with patient at the bedside. Patient states he is struggling badly with alcohol and with cocaine. Patient was not able to quantify his alcohol use. He would only state, All I know is that I need help . Patient states he would like to go to [facility]. SW contacted [facility] intake and made a referral. They will accept the patient. Patient was informed. Plan Patient was provided a LYFT to transport to [facility] at [address] [facility] LIC#[id number]. Pt denying any other needs at this time. SW to follow up as needed. EMANUEL Patino-S ED Die Assembler [facility]09-20-2022 Emergency department Note* Chapis Paredes RN - 10/28/2021 10:50 PM EDT Patient noted to be sitting at end of ED cot - Patient educated to not sit at end of ED cot as his weight could cause the cot to flip up and injury him. Patient replies do you think Im stupid . Patient continues to sit at edge of ED cot despite further attempts to educate. [facility]09-20-2022 Physician Emergency department Note* Carito Walsh MD - 10/28/2021 10:23 PM EDT This is a SHARED visit with the Advanced Practice Provider ED Attending ED ATTENDING NOTE Chief Complaint: Alcohol intoxication (Pt arrives via medic for alcohol intoxication. Pt was drinking at a bar when he asked the bartended to call 911 so he could be seen at the hospital. Pt ambulatory upon arrival. Pt asking for help to get treatment. Pt reports nausea and a headache) HPI: Mckinley Roman is a 36 y.o. male with a past medical history significant for alcohol dependence who presents with alcohol intoxication. States he wants help. Unable to obtain further history at this time 2/2 to intoxication. ROS: Unable to obtain due to intoxication Past Medical History: Past Medical History: Diagnosis Date Bipolar 1 disorder Depression Vital Signs: BP 122/68 Pulse 90 Temp 99.3 F (37.4 C) (Tympanic) Resp 16 Ht 1.803 m (5' 11 ) SpO2 94% BMI 33.64 kg/m Smoking Status Current Every Day Smoker Pertinent Exam: General: In general the patient is in no acute distress. Intoxicated HEENT: NCAT Neck: Normal inspection Respiratory: No respiratory distress CVS: Heart is RR Abdomen: Non distended Skin: Normal color Extremities: No deformities Neuro: Oriented x3, GCS of 15 Psych: Mood and affect normal. No results found for this visit on 10/28/21. No orders to display ED COURSE, MEDICAL DECISION MAKING, PLAN OF CARE On 10/28/2021 I saw and evaluated the patient with REZA. I provided a substantive portion of the carefor this patient. I personally performed all aspects of the medical decision making for this encounter. I have reviewed and verified this with the REZA so that it accurately reflects our care. Differential Diagnosis/Clinical Impression: EtOH intoxication. No signs of withdrawal. Requesting help with detox. Will obtain ETOH. If less than 300 will have SW evaluate and potentially place if not [facility] with resources. Carito Walsh MD ED Attending Physician [facility] Carito Walsh MD 10/28/21 1222 [facility] Work Phone: [phone]) 851-577809-20-2022 Emergency department Note* Deepa Cotto RN - 10/28/2021 10:12 PM EDT ..ED Triage Covid-19 Screen Is the patient complaining of the following symptoms recently? Positive screen is the presence of fever alone, or two or more of the other symptoms. Fever: no Chills: no Cough: no Dyspnea: no Fatigue: no Headache: no Myalgias: no Sore Throat: no Nasal congestion or rhinorrhea: no Loss of taste/smell: no Nausea or vomiting: no Diarrhea: no Confirmed exposure to Covid-19 positive contact in the last 14 days: no Negative screen [facility]09-20-[facility] Physician Emergency department Note* Anival Ritter PA-C - 10/28/2021 10:11 PM EDT Emergency Department Report [facility] [[email or web address]] EMERGENCY DEPARTMENT Service Date:.10/28/21 PCP: No primary care provider on file. Chief Complaint: Chief Complaint Patient presents with Alcohol intoxication Pt arrives via medic for alcohol intoxication. Pt was drinking at a bar when he asked the bartendedto call 911 so he could be seen at the hospital. Pt ambulatory upon arrival. Pt asking for help to get treatment. Pt reports nausea and a headache HPI Mckinley Roman is a 36 y.o. male presents to the ED today due to concern for alcohol intoxication. Patient states he was in [place] for alcohol rehabilitation but went to the bar and drank several alcoholic beverages. Unknown amount of whiskey. Patient was intoxicated at the bar and workers' compensation claims examiner called 911 and patient requested to go to the emergency department. Upon arrival he is intoxicated but ambulatory. Denies any fall or trauma. No suicidal or homicidal ideation. Denies drug use. Would like resources and help with alcohol use disorder. Reports nausea that is chronic when he drinks alcohol Review of Systems: Review of Systems Constitutional: Negative. HENT: Negative. Respiratory: Negative. Cardiovascular: Negative. Gastrointestinal: Positive for nausea. Negative for diarrhea and vomiting. Musculoskeletal: Negative. Skin: Negative. Allergic/Immunologic: Negative. Neurological: Negative. Hematological: Negative. Psychiatric/Behavioral: Negative. Past Medical History: Past Medical History: Diagnosis Date Bipolar 1 disorder Depression Past Surgical History: No past surgical history on file. Allergies: Allergies Allergen Reactions *Seasonal Runny Nose Medications: Patient's Medications New Prescriptions No medications on file Previous Medications FOLIC ACID 1 MG TABLET Take 1 tablet by mouth daily. LORATADINE 10 MG TABLET Take 1 tablet by mouth daily. MULTIVITAMIN W/ MINERALS TABLET Take 1 tablet by mouth daily. THIAMINE 100 MG TABLET Take 1 tablet by mouth daily. TRAZODONE 150 MG TABLET Take 1 tablet by mouth at bedtime. VENLAFAXINE 75 MG CAP SR 24HR CAPSULE XR Take 1 capsule by mouth daily with breakfast. Modified Medications No medications on file Discontinued Medications No medications on file Family History: No family history on file. Social History: Social History Socioeconomic History Marital status: Single Spouse name: Not on file Number of children: Not on file Years of education: Not on file Highest education level: Not on file Occupational History Not on file Tobacco Use Smoking status: Current Every Day Smoker Types: Cigarettes Smokeless tobacco: Never Used Vaping Use Vaping Use: Never used Substance and Sexual Activity Alcohol use: Yes Drug use: Yes Types: Methamphetamines, Crack cocaine, Cocaine, Benzodiazepines Sexual activity: Not on file Other Topics Concern Not on file Social History Narrative Not on file Social Determinants of Health Financial Resource Strain: Not on file Food Insecurity: Not on file Transportation Needs: Not on file Physical Activity: Not on file Stress: Not on file Social Connections: Not on file Intimate Partner Violence: Not on file Housing Stability: Not on file Physical Exam: Physical Exam Vitals and nursing note reviewed. Constitutional: General: He is not in acute distress. Appearance: Normal appearance. He is normal weight. He is not ill-appearing or toxic-appearing. HENT: Head: Normocephalic and atraumatic. Right Ear: External ear normal. Left Ear: External ear normal. Nose: Nose normal. Mouth/Throat: Mouth: Mucous membranes are moist. Pharynx: Oropharynx is clear. Eyes: Extraocular Movements: Extraocular movements intact. Conjunctiva/sclera: Conjunctivae normal. Pupils: Pupils are equal, round, and reactive to light. Cardiovascular: Rate and Rhythm: Normal rate and regular rhythm. Pulses: Normal pulses. Heart sounds: Normal heart sounds. Pulmonary: Effort: Pulmonary effort is normal. Breath sounds: Normal breath sounds. Abdominal: General: Bowel sounds are normal. There is no distension. Palpations: Abdomen is soft. There is no mass. Tenderness: There is no abdominal tenderness. There is no guarding or rebound. Hernia: No hernia is present. Musculoskeletal: General: No swelling, tenderness, deformity or signs of injury. Normal range of motion. Cervical back: Normal range of motion and neck supple. No rigidity. Skin: General: Skin is warm and dry. Capillary Refill: Capillary refill takes less than 2 seconds. Findings: No bruising. Neurological: General: No focal deficit present. Mental Status: He is alert and oriented to person, place, and time. Motor: No weakness. Psychiatric: Mood and Affect: Mood normal. Vital Signs During ED Visit Patient Vitals for the past 24 hrs: BP Temp Temp src Pulse Resp SpO2 Height 10/28/21 2208 -- -- -- -- -- -- 1.803 m (5' 11 ) 10/28/21 220 122/68 99.3 F (37.4 C) Tympanic 90 16 94 % -- Orders/Results: Orders Placed This Encounter RAINBOW DRAW CLINICAL DRUG OF ABUSE PANEL ALCOHOL (ETHANOL),BLOOD GOLD TOP TUBE MINT GREEN TOP TUBE LAVENDER TOP TUBE LT BLUE TOP TUBE Results for orders placed or performed during the hospital encounter of 08/20/21 DRUGS OF ABUSE SCREEN 10, URINE Result Value Ref Range Amphetamine/Methamphetamine Negative Cutoff: 500 ng/mL Barbiturates Negative Cutoff: 200 ng/mL Benzodiazepines Presumptive Positive (A) Cutoff: 200 ng/mL Buprenorphine Negative Cutoff: 5 ng/mL Cannabinoids (Marijuana) Negative Cutoff: 50 ng/mL Cocaine Negative Cutoff: 150 ng/mL Fentanyl Negative Cutoff: 1 ng/mL Methadone Negative Cutoff: 300 ng/mL Opiates Negative Cutoff: 300 ng/mL Oxycodone Negative Cutoff: 100 ng/mL ACETAMINOPHEN LEVEL Result Value Ref Range Acetaminophen <10.0 Therapeutic Range: 10-32 mcg/mL mcg/mL ALCOHOL (ETHANOL),BLOOD Result Value Ref Range Alcohol, Serum 81 (H) <10 mg/dL [facility] 7 - ED Result Value Ref Range Sodium 135 135 - 145 mmol/L Potassium 4.1 3.5 - 5.0 mmol/L Chloride 104 98 - 108 mmol/L CO2 22 21 - 31 mmol/L Glucose 87 70 - 99 mg/dL BUN 15 7 - 25 mg/dL Creatinine 1.20 0.70 - 1.30 mg/dL Bun/Crea Ratio 13 Osmolality (Calculated) 284 278 - 305 mOsm/kg Anion Gap 13 7 - 17 mmol/L eGFR, CKD-EPI, Male 80 >=60 mL/min/1.73m2 HEPATIC FUNCTION PANEL Result Value Ref Range Albumin 4.1 3.5 - 5.0 g/dL Bilirubin Direct 0.1 <0.3 mg/dL Bilirubin Total 0.8 <1.5 mg/dL ALP 83 32 - 126 U/L ALT 29 10 - 52 U/L AST 33 10 - 39 U/L Total Protein 6.7 6.4 - 8.3 g/dL CALCIUM Result Value Ref Range Calcium 8.8 8.6 - 10.5 mg/dL MAGNESIUM Result Value Ref Range Magnesium 1.8 1.6 - 2.6 mg/dL CHEM 7 (LYTES,BUN,CREA,GLUC) Result Value Ref Range Sodium 137 135 - 145 mmol/L Potassium 3.3 (L) 3.5 - 5.0 mmol/L Chloride 103 98 - 108 mmol/L CO2 22 21 - 31 mmol/L Glucose 82 70 - 99 mg/dL BUN 17 7 - 25 mg/dL Creatinine 1.14 0.70 - 1.30 mg/dL Bun/Crea Ratio 15 Osmolality (Calculated) 286 278 - 305 mOsm/kg Anion Gap 15 7 - 17 mmol/L eGFR, CKD-EPI, Male 85 >=60 mL/min/1.73m2 PT,INR,PTT Result Value Ref Range PT 14.4 (H) 11.9 - 14.2 sec INR 1.1 0.9 - 1.1 PTT 29.1 24.0 - 34.3 sec CBC AND ELECTRONIC DIFF Result Value Ref Range WBC Count 11.71 (H) 3.73 - 10.10 K/uL RBC Count 5.28 4.38 - 5.83 M/uL Hemoglobin 15.5 13.4 - 16.8 g/dL Hematocrit 43.9 39.6 - 48.8 % Mean Cell Volume 83.1 79.0 - 94.5 fL Mean Cell Hgb 29.4 26.1 - 33.3 pg Mean Cell Hgb Conc 35.3 31.9 - 36.5 g/dL RBC Distribution 13.2 10.9 - 14.3 % Platelet Count 273 146 - 337 K/uL Mean Platelet Volume 8.5 (L) 8.7 - 12.3 fL DIFF STATUS Electronic Differential Segs + Bands Auto 61.3 % Immature Grans % 0.3 % Lymphocyte % Auto 24.8 % Monocyte % Auto 9.4 % Eosinophil % Auto 3.8 % Basophil % Auto 0.4 % Nucleated RBC 0.0 <=0.2 /100 WBC Segs + Bands,Absolute Auto 7.19 (H) 1.57 - 6.19 K/uL Immature Grans Absolute <0.04 <=0.07 K/uL Abs Lymph Auto 2.90 0.83 - 3.57 K/uL Abs [place] Auto 1.10 (H) 0.24 - 0.93 K/uL Abs Eos Auto 0.44 0.00 - 0.48 K/uL Abs Baso Auto 0.05 0.00 - 0.09 K/uL CBC,PLATELETS Result Value Ref Range WBC Count 5.47 3.73 - 10.10 K/uL RBC Count 4.85 4.38 - 5.83 M/uL Hemoglobin 14.3 13.4 - 16.8 g/dL Hematocrit 40.9 39.6 - 48.8 % Mean Cell Volume 84.3 79.0 - 94.5 fL Mean Cell Hgb 29.5 26.1 - 33.3 pg Mean Cell Hgb Conc 35.0 31.9 - 36.5 g/dL RBC Distribution 13.2 10.9 - 14.3 % Platelet Count 216 146 - 337 K/uL Mean Platelet Volume 8.6 (L) 8.7 - 12.3 fL CHEM 7 (LYTES,BUN,CREA,GLUC) Result Value Ref Range Sodium 136 135 - 145 mmol/L Potassium 3.5 3.5 - 5.0 mmol/L Chloride 106 98 - 108 mmol/L CO2 23 21 - 31 mmol/L Glucose 99 70 - 99 mg/dL BUN 18 7 - 25 mg/dL Creatinine 1.00 0.70 - 1.30 mg/dL Bun/Crea Ratio 18 Osmolality (Calculated) 286 278 - 305 mOsm/kg Anion Gap 11 7 - 17 mmol/L eGFR, CKD-EPI, Male >90 >=60 mL/min/1.73m2 MAGNESIUM Result Value Ref Range Magnesium 1.8 1.6 - 2.6 mg/dL HEPATIC FUNCTION PANEL Result Value Ref Range Albumin 3.4 (L) 3.5 - 5.0 g/dL Bilirubin Direct <0.1 <0.3 mg/dL Bilirubin Total 0.2 <1.5 mg/dL ALP 74 32 - 126 U/L ALT 26 10 - 52 U/L AST 25 10 - 39 U/L Total Protein 5.8 (L) 6.4 - 8.3 g/dL PT,INR,PTT Result Value Ref Range PT 13.3 11.9 - 14.2 sec INR 1.0 0.9 - 1.1 PTT 29.8 24.0 - 34.3 sec Radiographic Imaging No orders to display Procedures: Procedures ED Summary/MDM Patient has known intoxication and alcohol use disorder. Patient's blood alcohol is 200. He has metwith social work and we have been able to get him a place at [facility]. He is clinically sober andambulatory at this time. Will discharge. Attending physician did a [id number] evaluation the patient participated in plan of care An After Visit Summary was printed and given to the patient with above information. . Anival Ritter PA-C 10/29/21 0113 [facility] Work Phone: [phone] NotePatient Education Instructions Name: MCKINLEY ROMAN Current Date: 09/20/2021 10:53:10 The following sheet(s) are the Patient Education Leaflets for MCKINLEY ROMAN Mental and Behavioral Health Alcohol Abuse and Nutrition Alcohol abuse is any pattern of alcohol consumption that harms your health, relationships, or work.Alcohol abuse can cause poor nutrition (malnutrition or malnourishment) and a lack of nutrients (nutrient deficiencies), which can lead to more health problems. Alcohol abuse brings malnutrition and nutrient deficiencies in two ways: ?? It causes your liver to work abnormally. This affects how your body divides (breaks down) and absorbs nutrients from food. ?? It causes you to eat poorly. Many people who abuse alcohol do not eat enough carbohydrates, protein, fat, vitamins, and minerals. Nutrients that are commonly lacking (deficient) in people who abuse alcohol include: ?? Vitamins. ? Vitamin A. This is needed for your vision, metabolism, and ability to fight off infections (immunity). ? B vitamins. These include folate, thiamine, and niacin. These are needed for new cell growth. ? Vitamin C. This plays an important role in wound healing, immunity, and helping your body to absorb iron. ? Vitamin D. This is necessary for your body to absorb and use calcium. It is produced by your liver, but you can also get it from food and from sun exposure. ?? Minerals. ? Calcium. This is needed for healthy bones as well as heart and blood vessel (cardiovascular) function. ? Iron. This is important for blood, muscle, and nervous system functioning. ? Magnesium. This plays an important role in muscle and nerve function, and it helps to control blood sugar and blood pressure. ? Zinc. This is important for the normal functioning of your nervous system and digestive system (gastrointestinal tract). If you think that you have an alcohol dependency problem, or if it is hard to stop drinking becauseyou feel sick or different when you do not use alcohol, talk with your health care provider or another health professional about where to get help. Nutrition is an essential factor in the therapy for alcohol abuse. Your health care provider or diet and nutrition professor (dietitian) will work with you to design a plan that can help to restore nutrients to your body and prevent the risk of complications. What is my plan? Your dietitian may develop a specific eating plan that is based on your condition and any other problems that you have. An eating plan will commonly include: ?? A balanced diet. ? Grains: 6?8 oz (170?227 g) a day. Examples of 1 oz of whole grains include 1 cup of whole-wheat cereal, ? cup of brown rice, or 1 slice of whole-wheat bread. ? Vegetables: 2?3 cups a day. Examples of 1 cup of vegetables include 2 medium carrots, 1 large tomato, or 2 stalks of celery. ? Fruits: 1?2 cups a day. Examples of 1 cup of fruit include 1 large banana, 1 small apple, 8 largestrawberries, or 1 large orange. ? Meat and other protein: 5?6 oz (142?170 g) a day. ? A cut of meat or fish that is the size of a deck of cards is about 3?4 oz. ? Foods that provide 1 oz of protein include 1 egg, ? cup of nuts or seeds, or 1 tablespoon (16 g) of peanut butter. ? Dairy: 2?3 cups a day. Examples of 1 cup of dairy include 8 oz (230 mL) of milk, 8 oz (230 g) of yogurt, or 1? oz (44 g) of natural cheese. ?? Vitamin and mineral supplements. What are tips for following this plan? ?? Eat frequent meals and snacks. Try to eat 5?6 small meals each day. ?? Take vitamin or mineral supplements as recommended by your dietitian. ?? If you are malnourished or if your dietitian recommends it: ? You may follow a high-protein, high-calorie diet. This may include: ? 2,000?3,000 calories (kilocalories) a day. ? 70?100 g (grams) of protein a day. ? You may be directed to follow a diet that includes a complete nutritional supplement beverage. This can help to restore calories, protein, and vitamins to your body. Depending on your condition, you may be advised to consume this beverage instead of your meals or in addition to them. ?? Certain medicines may cause changes in your appetite, taste, and weight. Work with your health care provider and dietitian to make any changes to your medicines and eating plan. ?? If you are unable to take in enough food and calories by mouth, your health care provider may recommend a feeding tube. This tube delivers nutritional supplements directly to your stomach. Recommended foods ?? Eat foods that are high in molecules that prevent oxygen from reacting with your food (antioxidants). These foods include grapes, berries, nuts, green tea, and dark green or orange vegetables. Eating these can help to prevent some of the stress that is placed on your liver by consuming alcohol. ?? Eat a variety of fresh fruits and vegetables each day. This will help you to get f (more contentnot included)...[facility]08-13-2022 Note Admission Information Patient is a 36-year-old male with history of alcohol dependence, substance abuse, nicotine dependence, depression, anxiety, and homelessness that presented for [facility] after being found wandering around a parking lot confused. Patient is currently homeless living out of his car, was previously at a rehab home, but states cannot go back because he burned bridges there . According to the patient, he consumed 4-5 shots and a few mixed beverages prior to coming in. Prior to that,he had been sober x4 months. He did admit to previous cocaine use, last use 6 months ago. No prior seizures or hallucinations. Initially patient altered between alert and cooperative to confused and aggressive. CIWA initially 12. Discharge Diagnosis and Plan 1. Alcohol abuse F10.10 -- Concern for withdrawal so patient was started on CIWA in addition to Librium, and cyclobenzaprine along with thiamine, multivitamin -- As patient reported 1 night of drinking and that being the first time 4 months, less likely withdrawal and more likely acute intoxication -- Recommend outpatient rehab as pt asymptomatic and insisted on leaving 2. Abnormal behavior R46.89 -- Secondary to #1. Resolved. -- CT brain showed no acute intracranial abnormalities. Blood work relatively unremarkable in addition to UA and UDS. 3. Major depression F32.9 -- In the past has been on Effexor for depression but unclear if he is still taking it. Follow-up with PCP. Patient provided list of PCP in the area prior to discharge. 4. Tobacco use Z72.0 -- smokes 3-5 cigarettes daily. Declines NRT. Orders: multivitamin, 1 tab, Oral, Daily, # 30 tab, 0 Refill(s), Pharmacy: [facility] [id number], 180, cm, Height/Length Measured, 09/19/21 9:43:00 EDT, 106, kg, Weight Dosing, 09/19/21 9:43:00 EDT multivitamin, 1 tab, Oral, Tab, Daily, First Dose: 09/20/21 9:00:00 EDT thiamine, 1 tab, Oral, Daily, X 30 days, # 30 tab, 0 Refill(s), 10/20/21 9:10:00 EDT, Pharmacy: [facility] [id number], 180, cm, 09/19/21 9:43:00 EDT, Height/Length Measured, 106, kg, 09/19/21 9:43:00 EDT, Weight Dosing Communication Order Communication Order Discharge Activity Restrictions Discharge Diet Instruction Discharge Disposition Discharge Patient Discharge Timing Peripheral IV Discontinue Vital Sign Measurements Vitals & Measurements T: 97.4 ??F (Oral) TMIN: 97.1 ??F (Temporal Artery) TMAX: 98.4 ??F (Temporal Artery) HR: 58 (Peripheral) HR: 58 (Monitored) RR: 17 BP: 126/68 SpO2: 92% HT: 180 cm WT: 106.3 kg BMI: 32.72 Physical Exam General: alert and oriented, no acute distress, well nourished, pleasant, cooperative HEENT: normocephalic, EOMI, no scleral icterus, hearing grossly intact, moist oral mucosa Lungs: clear to auscultation, symmetrical chest rise, non-labored respiration, no conversational dyspnea Heart: normal rate, regular rhythm, no murmur, radial pulses intact Abdomen: soft, non-tender, non-distended, bowel sounds present Musculoskeletal: spontaneously moves all 4 extremities, gait not observed Skin: warm dry and intact, no BLE edema Neurologic: awake, alert, and oriented X3, normal coordination, communication and comprehension appropriate, speaks in full sentences, answers questions appropriately Medications Home Claritin, 5 mg, Oral, Daily Therapeutic Multiple Vitamins oral tablet, 1 tab, Oral, Daily thiamine 100 mg oral tablet, 100 mg= 1 tab, Oral, Daily Vivitrol, 380 mg= 1 vials, IM, every 4 wk New multivitamin daily thiamine daily Allergies No Known Allergies Patient Discharge Condition stable Discharge Disposition home independently Follow-up Appointments PCP 1-2 weeks Patient Discharge Instructions Return to the hospital immediately if the patient begins to experience new or worsening symptoms, including but not limited to confusion or withdrawal. Take all medications as prescribed. Follow up with your PCP within 1-2 weeks. Consultations During Stay none Time Spent Discharge Planning Time spent preparing this patient's discharge including time with patient education, physical exam,coordination of care, and medication reconciliation was less than 30 minutes. Attending addendum: I personally interviewed and examined the patient on day of this encounter. I personally reviewed all diagnostic data and relevant notes. The plan of care was formulated with Dr. Spencer. The appropriate changes were made to the original note. I agree with the assessment and plan with the following notes: Patient is currently alert and oriented. There was a pink slip placed by Petr MUÑOZ at time of presentation to the ED, but this was due to intoxication rather than psychosis. No suicidal ideation or homicidal ideation. Patient without withdrawal symptoms this morning and stated he had been sober for 3 weeks before relapsing prior to admission. Patient safe for discharge today. -Young Richard MD Electronically Signed on 09/20/21 09:31 (more content not included)...[facility]08-12-2022 NoteChief Complaint AMS, alcohol intoxication History of Present Illness Patient is a 36-year-old male past medical history of alcoholism, depression, anxiety who presents to [facility] for alcohol withdrawal. Per chart review patient was brought ot ED from [facility] on September 18, 2021 for alcohol intoxication was cooperative, refused labs and left. Afterwards was found in [facility] with altered mental status patient was AOA x1. Patient is currently homeless living out of his car, was previously at a rehab home, but states cannot go back because he burned bridges there . Patient is currently receiving Vivitrol shots states last shot was 3 weeks at [facility], but patient is poor historian. Per patient has been an alcoholic since 20, admit uses alcohol to cope with anxiety and depression. Smokes 3 to 4 cigarettes/day. Does admit previous use of cocaine, last use was 6 months ago. Patient's grandfather was also an alcoholic. ED Course: Upon admission to emergency department patient was confused and aggressive towards staff. Was given Haldol and Ativan, initially arrived on pink slip by police. Patient was reevaluated, more alert oriented and cooperative. Patient was reevaluated 30 minutes later and was agitated and tremoring, CIWA score was 11, patient was offered detox and accepted. Was given additional benzodiazepines. Patient has otherwise hemodynamically stable, BMP and CMP revealed no abnormalities. Urine drugscreen was otherwise negative. CT head with demonstrated no acute intracranial abnormalities. During patient evaluation, patient was pacing and agitated. Was cooperative with answering questions. Patient is willing to undergo detox, admits sx feel similar to previous withdrawals. Per patient has not had previous seizures or hallucinations. Denies current suicidal ideation. CIWA score of 12.Has been on Effexor for depression, unclear if still taking medication. Review of Systems Constitutional: No fevers, chills, sweats unexpected weight loss of weight gain Eye: No recent change in vision, uveitis, scleral icterus, conjunctival injection ENMT: No ear pain, nasal congestion, sore throat, tinnitus Respiratory: No cough, pain with respiration, or difficulty breathing Cardiovascular: No Chest pain, palpitations, orthopnea or edema Gastrointestinal: No vomiting, diarrhea, constipation, abdominal pain. Admits nausea Musculoskeletal: Admits b/l calf muscle aches and twitches, Neurologic: Alert & oriented X 4, no dysphagia Psychiatric: No anxiety, depression Vitals and Physical Exam Vitals Signs and Measurements within 24 hours T: 97.1 ??F (Temporal Artery) TMIN: 97.1 ??F (Temporal Artery) TMAX: 97.8 ??F (Oral) HR: 103 (Monitored) RR: 21 BP: 172/86 SpO2: 94% HT: 180 cm WT: 106 kg (Dosing) BMI: 32.72 Oxygen Information Oxygen Therapy: Room air (09/19/21 13:11:00) SpO2: 94 % (09/19/21 13:11:00) Physical Exam General: Alert and oriented, pacing room and agitated Eye: PERRL,EOMI, normal conjunctiva, no injection HENT: Normal hearing, moist oral mucosa, no scleral icterus, no sinus tenderness Lungs: CTAB, non-labored respiration, equal rise and fall of chest, no wheezing Heart: RRR, no murmurs or bruits appreciated. No pain with palpation of chest wall. Abdomen: Non-tender, non-distended, normal bowel sounds, no splenomegaly, no hepatomegaly MSK:+2 radial pulse b/l, no edema appreciated, no pain while palpation of lower extremity Neurologic: Awake, alert, and oriented X3, CN II-XII grossly intact, no dysarthria or dysphagia. Nofocal neurological deficits Psychiatric: Cooperative, agitated, denies SI/HI Assessment/Plan Abnormal behavior R46.89 Patient was admitted for alcohol intoxication, was confused and agitated upon arrival. --Psychiatric history unknown, unclear to what patient's baseline is as patient is poor historian. Reassess patient's mentation when patient is less agitated. --Is currently receiving Librium for sedation. Is on CIWA protocol --thiamine has been ordered --Continue to monitor Alcohol abuse with withdrawal F10.139 Per patient, history of alcohol abuse since he was 20. Was receiving Vivitrol shots from [facility], last one was 3 weeks ago per patient's recollection. --CIWA protocol --Unclear to if patient was abstaining from alcohol then truly relapsed yesterday, ethanol on admission 1.68. Major depression F32.9 Per patient, has h/o depression and anxiety, was previously on Effexor, unclear if patient is stilltaking --due to patient agitation and waxing and waning confusion baseline is difficult to ascertain Attending addendum: I personally interviewed and examined the patient on day of this encounter. I personally reviewed all diagnostic data and relevant notes. The plan of care was formulated with Dr. Deras. The appropriate changes were made to the original note. I agree with the assessment and plan with the followingnotes: Mr. Roman is a 36 year old m (more content not included)...[facility] NotePatient Education Instructions Name: MCKINLEY ROMAN Current Date: 09/19/2021 09:42:43 The following sheet(s) are the Patient Education Leaflets [facility] NotePatient Education Instructions Name: MCKINLEY ROMAN Current Date: 09/18/2021 20:39:02 The following sheet(s) are the Patient Education Leaflets for MARCELO [facility] Alcohol Use Disorder Alcohol use disorder is a condition in which drinking disrupts daily life. People with this condition drink too much alcohol and cannot control their drinking. Alcohol use disorder can cause serious problems with physical health. It can affect the brain, heart, and other internal organs. This disorder can raise the risk for certain cancers and cause problems with mental health, such as depression or anxiety. What are the causes? This condition is caused by drinking too much alcohol over time. Some people with this condition drink to cope with or escape from negative life events. Others drink to relieve pain or symptoms of mental illness. What increases the risk? You are more likely to develop this condition if: ?? You have a family history of alcohol use disorder. ?? Your culture encourages drinking to the point of becoming drunk (intoxication). ?? You had a mood or conduct disorder in childhood. ?? You have been abused. ?? You are an adolescent and you: ? Have poor performance in school. ? Have poor supervision or guidance. ? Act on impulse and like taking risks. What are the signs or symptoms? Symptoms of this condition include: ?? Drinking more than you want to. ?? Trying several times without success to drink less. ?? Spending a lot of time thinking about alcohol, getting alcohol, drinking, or recovering from drinking. ?? Continuing to drink even when it is causing serious problems in your daily life. ?? Drinking when it is dangerous to drink, such as before driving a car. ?? Needing more and more alcohol to get the same effect you want (building up tolerance). ?? Having symptoms of withdrawal when you stop drinking. Withdrawal symptoms may include: ? Trouble sleeping, leading to tiredness (fatigue). ? Mood swings of depression and anxiety. ? Physical symptoms, such as a fast heart rate, rapid breathing, high blood pressure (hypertension), fever, cold sweats, or nausea. ? Seizures. ? Severe confusion. ? Feeling or seeing things that are not there (hallucinations). ? Shaking movements that you cannot control (tremors). How is this diagnosed? This condition is diagnosed with an assessment. Your health care provider may start by asking threeor four questions about your drinking, or he or she may give you a simple test to take. This helps to get clear information from you. You may also have a physical exam or lab tests. You may be referred to a substance abuse counselor. How is this treated? With education, some people with alcohol use disorder are able to reduce their drinking. Many with this disorder cannot change their drinking behavior on their own and need help from substance use specialists. These specialists are counselors who can help diagnose how severe your disorder is and what type of treatment you need. Treatments may include: ?? Detoxification. Detoxification involves quitting drinking with supervision and direction of health care providers. Your health care provider may prescribe prescription medicines within the first week to help lessen withdrawal symptoms. Alcohol withdrawal can be dangerous and life-threatening. Detoxification may be provided in a home, community, or primary care setting, or in a hospital or substance use treatment facility. ?? Counseling. This may involve motivational interviewing (OK), family therapy, or cognitive behavioral therapy (CBT). It is provided by substance use treatment counselors or professional therapists.A counselor can address the things you can do to change your drinking behavior and how to maintain the changes. Talk therapy aims to: ? Identify your positive motivations to change. ? Identify and avoid the things that trigger your drinking. ? Help you learn how to plan your behavior change. ? Develop support systems that can help you sustain the change. ?? Medicines. Medicines can help treat this disorder by: ? Decreasing cravings. ? Decreasing the positive feeling you have when you drink. ? Causing an uncomfortable physical reaction when you drink (aversion therapy). ?? [place] help groups such as Alcoholics Anonymous (AA). These groups are led by people who have quit drinking. The groups provide emotional support, advice, and guidance. Some people with this condition benefit from a combination of treatments provided by specialized substance use treatment centers. Follow these instructions at home: Medicines ?? Take foji-art-nvxtyck and prescription medicines only as told by your health care provider. ?? Ask before starting any new medicines, herbs, or supplements. General instructions ?? Ask friends and family members to arteaga (more content not included)...[facility]07-[facility] Note* Nursing Notes - Araceli Hemphill RN - 08/23/2021 9:08 AM EDT Patient discharged to [facility], sitter is walking patient to front entrance to meet ride. Discharge paperwork sent with patient. Patient verbalizes that he has no thoughts of hurting himself at this time and is ready to get help for his alcoholism. IV removed, no complications. All belongings sent with patient. He is wearing tim sweat outfit provided by [facility]. No further needs at this time. [facility]07-16-2022 Miscellaneous Notes* Nursing Notes - Araceli Hemphill RN - 08/23/2021 9:08 AM EDT Patient discharged to [facility] - [facility] patient, sitter is walking patient to front entrance to meet ride. Discharge paperwork sent with patient. Patient verbalizes that he has no thoughts of hurting himself at this time and is ready to get help for his alcoholism. IV removed, no complications. All belongings sent with patient. He is wearing tim sweat outfit provided by [facility]. No further needs at this time. * Plan of Care - Isrrael Hector RN - 08/22/2021 8:45 PM EDT Problem: Patient Care Overview Goal: Plan of Care Review Outcome: Ongoing Goal: Individualization & Mutuality Outcome: Ongoing Goal: Discharge Needs Assessment Outcome: Ongoing Goal: Interdisciplinary Rounds/Family Conf Outcome: Ongoing Problem: Dysphagia (Adult) Goal: Identify Related Risk Factors and Signs and Symptoms Description: Related risk factors and signs and symptoms are identified upon initiation of Human Response Clinical Practice Guideline (CPG) Outcome: Ongoing Goal: Functional/Safe Swallow Description: Patient will demonstrate the desired outcomes by discharge/transition of care. Outcome: Ongoing Goal: Compensatory Techniques to Improve Safety/Function with Swallowing Description: Patient will demonstrate the desired outcomes by discharge/transition of care. Outcome: Ongoing Problem: Alcohol Withdrawal Acute, Risk/Actual (Adult) Goal: Signs and Symptoms of Listed Potential Problems Will be Absent, Minimized or Managed (AlcoholWithdrawal Acute, Risk/Actual) Description: Signs and symptoms of listed potential problems will be absent, minimized or managed by discharge/transition of care (reference Alcohol Withdrawal Acute, Risk/Actual (Adult) CPG). Outcome: Ongoing Problem: Fall/Trauma/Injury Risk (Adult) Goal: Fall/Trauma/Injury Risk: Absence of Trauma/Injury/Falls Description: Patient will demonstrate the desired outcomes. Outcome: Ongoing Goal: Knowledge of risk factors/behavior modification Description: Knowledge of risk factors/behavior modification for fall/injury prevention Outcome: Ongoing * Nursing Notes - UZIEL Ramos - 08/21/2021 10:14 PM EDT Pt is more awake and in a better state of mind. Pt denies any SI and is calm, pleasant and well aware of the situation. Pt has a better appetite and ate a couple sandwiches and snacks since he didn'teat much dinner due to receiving the wrong items ordered. Pt independently showered, changed his bed and brushed his teeth. Pt has his cell phone been reaching out to his recovery sponsor and recovery group to give them an update. Pt has been calm and happy with overall phone conversations. Pt is communicating with sitter and nurse calmly and clearly. Pt is compliant with treatment and care. * Nursing Notes - Sher Antonio RN - 08/21/2021 3:24 PM EDT BEHAVIORAL EMERGENCY RESPONSE TEAM ([facility]) RN NOTE 08/21/2021 Mckinley Roman : 1985 [facility] rounding. Patient sleeping in bed. FILM AND VIDEO EDITOR sitter present at bedside. Patient is compliant with wearing [facility] gown. Did not disturb patient at this time. No needs were noted while checking in with staff. The Behavioral Emergency Response Team is available [phone] every day. Please use [facility] as a resource for patient as needed. * Certification - Bonnie Hewitt MD - 08/21/2021 6:10 AM EDT I certify that this patient requires inpatient services at this time. I anticipate the expected length of stay will include at least two midnights. Inpatient services are due to the following medicalconcerns suicidal ideation with attempt; alcohol withdrawal. Plans for post hospitalization care will be discharge to home. Bonnie Hewitt MD Department of Internal Medicine, PGY-2 * Plan of Care - Isrrael Hector RN - 08/21/2021 4:38 AM EDT Problem: Patient Care Overview Goal: Plan of Care Review Outcome: Ongoing Goal: Individualization & Mutuality Outcome: Ongoing Goal: Discharge Needs Assessment Outcome: Ongoing Goal: Interdisciplinary Rounds/Family Conf Outcome: Ongoing Problem: Dysphagia (Adult) Goal: Identify Related Risk Factors and Signs and Symptoms Description: Related risk factors and signs and symptoms are identified upon initiation of Human Response Clinical Practice Guideline (CPG) Outcome: Ongoing Goal: Functional/Safe Swallow Description: Patient will demonstrate the desired outcomes by discharge/transition of care. Outcome: Ongoing Goal: Compensatory Techniques to Improve Safety/Function with Swallowing Description: Patient will demonstrate the desired outcomes by discharge/transition of care. Outcome: Ongoing Problem: Alcohol Withdrawal Acute, Risk/Actual (Adult) Goal: Signs and Symptoms of Listed Potential Problems Will be Absent, Minimized or Managed (AlcoholWithdrawal Acute, Risk/Actual) Description: Signs and symptoms of listed potential problems will be absent, minimized or managed by discharge/transition of care (reference Alcohol Withdrawal Acute, Risk/Actual (Adult) CPG). Outcome: Ongoing Problem: Fall/Trauma/Injury Risk (Adult) Goal: Fall/Trauma/Injury Risk: Absence of Trauma/Injury/Falls Description: Patient will demonstrate the desired outcomes. Outcome: Ongoing Goal: Knowledge of risk factors/behavior modification Description: Knowledge of risk factors/behavior modification for fall/injury prevention Outcome: Ongoing [facility] [place] [facility] Narrative* Ezequiel Longoria MD - 08/23/2021 7:29 AM EDT Discharge Summary Name: Mckinley Roman Age: 36 y.o. Birthday: 1985 Admit Date: 08/20/2021 Discharge Date: 08/23/2021 Admission Information Admitting Physician: Lety Simpson MD Discharge Information Discharge Physician: Lety Simpson MD Problem List Active Hospital Problems Diagnosis Withdrawal syndrome Resolved Hospital Problems No resolved problems to display. RECOMMENDATIONS AFTER DISCHARGE: - Recommend following up with the patient reguarding EtOH cessation. Discharged to [facility] for further substance use treatment. DISCHARGE LETTER: Dear Doctors, I recently had the opportunity to care for Mckinley Roman during his recent hospital stay at [facility]. As you may know, Mckinley Roman is a 36 year old male with a history of MDD vs bipolar disorder 2, EtOH use disorder c/b withdrawal seizure, and stimulant use disorder who presented on 08/20 following suicide attempt in the setting of alcohol intoxication. The following describes his hospital course by problem list: #Acute alcohol withdrawal Patient with elevated serum alcohol level in ED and stating last drink was morning of 08/20 with beer and liquor of unknown quantity, and said he was binge drinking . History of recurrent admissions for alcohol intoxication and alcohol withdrawal c/b seizures since 2015. Patient was agitated and responding to internal stimuli in ED with concern for auditory hallucinations, so he was given IM Droperidol and Versed. Given his history of severe alcohol withdrawal and elevated CIWA scores (25 on admit) he was started on phenobarbital taper which was completed prior to discharge. EKG with normal QTc. Patient statedlast Vivitrol injection was on 08/19 and is compliant. Patient tolerated phenobarbital well and denied tremors, diaphoresis, palpitations, N/V, anxiety, and hallucinations during admission with normalvital signs. By time of discharge patient was without signs or symptoms of alcohol withdrawal. #Suicidal ideation with attempt Patient found with laceration on L arm and asking ED staff for knife to make him bleed . Patient has history of suicidal ideation in the setting of alcohol intoxication on multiple other occasions and received inpatient psychiatric treatment as recent as April 2021 at [facility]. He denied SI/HI during admission and Psych was consulted to help with further management. During hospital stay patient reported stating SI initially in order to get expedited hospital admission and outpatient treatment. He was found to have improved mood at time of discharge. On day of discharge patient endorsed no suicidal ideation and stated that he felt like he could be safe outside of the hospital. #Major depressive disorder Patient has a history of depression with suicidal ideation dating back to 2015 according to chart review. He was most recently admitted to [facility] in April 2021. Effexor dose was increased to 75mg daily at that time. Patient reports taking all medications prior to admission and was continued on Effexor 75mg during admission. #Acute dystonia, improved Patient had intermittent involuntary inversion of R foot that he reported started occurring after Droperidol injection in ED. Acute dystonic reaction was likely secondary to antipsychotic administration. He was given 50mg IM Benadryl in ED. Patient was not noted to have involuntary inversion on exam during admission. With respect to management of his other chronic conditions, no changes were made to their management plan or medication list. Please see prior documentation for further information regarding chronic medical condition management. Physical Exam on the Date of Discharge: Vitals: 08/22/21 2300 BP: 129/61 Pulse: 65 Resp: 18 Temp: 98.7 F (37.1 C) Wt Readings from Last 1 Encounters: 08/22/21 109.4 kg (241 lb 3.2 oz) Gen: NAD. Comfortably resting in bed. Awakens to voice. CV: RRR, no m/r/g Resp: CTAB no increased WOB GI: Soft. NTND. BS+ Neuro: CNII - XII grossly intact. No focal neurologic deficits noted. Psych: Appropriate mood and affect. At the time of discharge the patient's mental status was alert and oriented. Upon discharge the patient's code status Full Code It has been my pleasure participating in this patient's care. Please contact me with any questions or concerns regarding his hospital stay. Sincerely, Ezequiel Longoria MD PGY-1 [facility] Dictated under attending physician Lety Simpson MD Division of Hospital Medicine p: [phone] f: [phone] CONSULTS DURING ADMISSION: IP CONSULT TO SOCIAL WORK IP CONSULT TO SOCIAL WORK IP CONSULT TO PSYCHIATRY IMAGING / PROCEDURES / RESULTS: No pertinent imaging from this admission. Should you require further information or copies of results or reports please contact Medical Information Management @ [phone] PERTINENT LABS: Recent Labs 08/22/21 0511 WBC 5.47 HGB 14.3 PLATELET 216 SODIUM 136 POTASSIUM 3.5 CO2 23 ANIONGAP 11 BUN 18 CREATSERUM 1.00 MAGNESIUM 1.8 AST 25 ALT 26 ALKPHOS 74 BILITOTAL 0.2 BILIDIRECT <0.1 INR 1.0 PTT 29.8 RESULTS / STUDIES PENDING AT DISCHARGE: No studies pending at time of discharge. PATIENT'S MEDICAL HOME AT DISCHARGE: No primary care provider on file. No primary physician on file. None DISCHARGE ORDERS AND MEDICATIONS: No orders of the defined types were placed in this encounter. No discharge procedures on file. Medication List for when you go home CONTINUE taking these medications folic acid 1 MG TABS Take 1 tablet by mouth daily. Commonly known as: FOLVITE For diagnoses: Uncomplicated alcohol dependence loratadine 10 MG TABS Take 1 tablet by mouth daily. Commonly known as: CLARITIN For diagnoses: History of environmental allergies Therapeutic-M/Lutein TABS Take 1 tablet by mouth daily. For diagnoses: Uncomplicated alcohol dependence thiamine 100 MG TABS Take 1 tablet by mouth daily. For diagnoses: Uncomplicated alcohol dependence trazodone 150 MG TABS Take 1 tablet by mouth at bedtime. Commonly known as: DESYREL For diagnoses: Depression with suicidal ideation, Other insomnia venlafaxine 75 MG cap XR capsule XR Take 1 capsule by mouth daily with breakfast. Commonly known as: EFFEXOR-XR For diagnoses: Depression with suicidal ideation FOLLOW-UP: No future appointments. No follow-up provider specified. Associated attestation - Lety Simpson MD - 08/23/2021 11:42 AM EDT Date of Service:08/23/2021 I have seen and examined the patient independently of the resident, Dr. Longoria. I have personally reviewed all available clinical data related to today's encounter, including but not limited to laboratory studies, radiology images and reports, cardiovascular and/or pulmonary diagnostic procedures, endoscopy as applicable, outside medical records, and EKG/telemetry tracings. I have been fully involved in formulation of the above-documented assessment and plan and it has been thoroughly discussedwith the residents/interns. Mckinley Roman is a 36yo male with PMH of bipolar verses major depressive disorder, severe alcohol use disorder, history of complicated alcohol withdrawal, polysubstance abuse disorder who presented with acute intoxication, with concern for withdrawal and suicidal ideation. Given 100+ days of sobriety prior to relapse, concern for patient developing severe withdrawal symptoms in the coming days isextremely low. He has appropriately received phenobarbital taper which we have discontinued. Patient is no longer having thoughts of SI or harming himself. Discharging to [facility] for residential treatment this morning. Obesity with BMI 45, secondary to excess caloric intake, follow up with PCP regarding exercise and lifestyle modifications. Total discharge time 18 minutes. Lety Simpson MD Division of Hospital Medicine Pager: #[phone] 08/23/2021 [facility] [place] [facility]22 Note* Plan of Care - Isrrael Hector RN - 08/22/2021 8:45 PM EDT Problem: Patient Care Overview Goal: Plan of Care Review Outcome: Ongoing Goal: Individualization & Mutuality Outcome: Ongoing Goal: Discharge Needs Assessment Outcome: Ongoing Goal: Interdisciplinary Rounds/Family Conf Outcome: Ongoing Problem: Dysphagia (Adult) Goal: Identify Related Risk Factors and Signs and Symptoms Description: Related risk factors and signs and symptoms are identified upon initiation of Human Response Clinical Practice Guideline (CPG) Outcome: Ongoing Goal: Functional/Safe Swallow Description: Patient will demonstrate the desired outcomes by discharge/transition of care. Outcome: Ongoing Goal: Compensatory Techniques to Improve Safety/Function with Swallowing Description: Patient will demonstrate the desired outcomes by discharge/transition of care. Outcome: Ongoing Problem: Alcohol Withdrawal Acute, Risk/Actual (Adult) Goal: Signs and Symptoms of Listed Potential Problems Will be Absent, Minimized or Managed (AlcoholWithdrawal Acute, Risk/Actual) Description: Signs and symptoms of listed potential problems will be absent, minimized or managed by discharge/transition of care (reference Alcohol Withdrawal Acute, Risk/Actual (Adult) CPG). Outcome: Ongoing Problem: Fall/Trauma/Injury Risk (Adult) Goal: Fall/Trauma/Injury Risk: Absence of Trauma/Injury/Falls Description: Patient will demonstrate the desired outcomes. Outcome: Ongoing Goal: Knowledge of risk factors/behavior modification Description: Knowledge of risk factors/behavior modification for fall/injury prevention Outcome: Ongoing [facility]07-15-[facility] History of Present illness Narrative* LEODAN Rashid - 08/22/2021 3:14 PM EDT Reason for Consult: safety plan Consulted By: Lety Simpson MD Social Work Suicide Safety Plan - Consult Note A Suicide Safety Plan was initiated and declined by Mckinley Roman on 08/22/2021. Pt explained that he was never actually suicidal, but that he had relapsed and knew the quickest way to get help was tocall 911 and say he was having suicidal ideation. Explained there have been a few times when he hasbeen in relapse that he has felt hopeless and contemplated suicide, but that he has never attempted. Explained his plan for safety is directly correlated with his sobriety, which he is getting help for. SW offered Safety Plan template to take with him. Left on his bedside tray. Action Plan Will complete consult and remain available as needed. EMANUEL Francisco [employer] [place] * Haley Son - 08/22/2021 1:32 PM EDT Images from the original note were not included. Internal Medicine Daily Progress Note Patient: Mckinley Roman, 1985, [id number] Medical Student: Haley Son, MS4 Subjective/Interval History: Patient was more interactive and pleasant upon interview today. States that he feels better and continues to deny needing medical support at this time. Denied any SI/HI, diaphoresis, tremors, anxiety, palpitations, or GI upset. He reports he received his last Vivitrol injection this past Wednesday and is compliant with it. Objective: Vitals: 08/22/21 1139 BP: 139/78 Pulse: 75 Resp: 18 Temp: 98.8 F (37.1 C) O2 Device: room air (08/22/21 1139) Flow (L/min): 0 (08/22/21 0453) Body mass index is 45.1 kg/m . Physical Exam: General: Alert and oriented. Laying in bed comfortably. HEENT: Normocephalic and atraumatic. Eyes: PERRL. No scleral icterus. Neck: Neck supple Respiratory: Normal respiratory effort. Clear to auscultation bilaterally. Cardiovascular: Normal rate and regular rhythm. No murmurs, rubs, or gallops appreciated. No LE edema. Abdomen: Soft, non-distended, non-tender. Normal bowel sounds. Musculoskeletal: No deformities noted. Normal range of motion all extremities. Neurological: Moves all extremities. Awake, alert, oriented x3, speech clear. Skin: No rashes or excoriations noted on face, abd, or limbs. No jaundice Psych: Calm and appropriate, not currently responding to internal stimuli, denies SI/HI Data Review: WBC/Hgb/Hct/Plts: 5.47/14.3/40.9/216 (08/22 510) Na/K+/Phos/Mg/Ca: 136/3.5/--/1.8/-- (08/22 510) Bun/Creat/Cl/CO2/Glucose: 18/1.00/106/23/99 (08/22 510) Recent Labs 08/21/21 0229 08/22/21510 ALT 29 26 AST 33 25 ALKPHOS 83 74 BILITOTAL 0.8 0.2 BILIDIRECT 0.1 <0.1 Ptt/Pt/Inr: 29.8/13.3/1.0 (08/22 510) EKG 08/22: Sinus bradycardia, otherwise normal Assessment/Plan: Mckinley Roman is a 36 y.o. male with a history of MDD vs bipolar disorder 2, EtOH use disorder c/b withdrawal seizure, and stimulant use disorder who presents following suicide attempt in the settingof alcohol intoxication. ACTIVE MEDICAL PROBLEMS: #Acute alcohol withdrawal Patient with elevated serum alcohol level in ED and presented via EMS from local [facility]. Of note, patient was seen in [place] ED on 08/20 with alcohol intoxication and left on his own. States last drink was morning of 08/20 with beer and liquor of unknown quantity, and says he was binge drinking . Patient has a history of recurrent admissions for alcohol intoxication and alcohol withdrawal c/b seizures since 2016. Patient was agitated and responding to internal stimuli in ED, concerning for auditory hallucinations, so he was given IM Droperidol and Versed. No EKG obtained in ED. Patient was started on phenobarbital taper given history of severe alcohol withdrawal. CIWA of 25 on admission, buthas been 1-2 following initiation of phenobarb taper. EKG obtained on 08/22 with normal QTc. Patientsays last Vivitrol injection was on 08/19 and is compliant. - Continue phenobarbital taper - No need for Vivitrol injection at this time - Seizure, CIWA, and aspiration precautions in place - Continue PO Folic acid, thiamine, and multivitamin daily - Space out CBC, Chem 7, and HFP Q3 days #Suicidal ideation and attempt Patient found with laceration on L arm and asking ED staff for knife to make him bleed . Patient has history of suicidal ideation in the setting of alcohol intoxication on multiple other occasions and received inpatient psychiatric treatment as recent as April 2021 at [facility]. Denies SI/HI during admission. - Psych consulted, appreciate recs - High risk suicide precautions in place - 1:1 sitter #Major depressive disorder History of depression with suicidal ideation dating back to 2016 on chart review. Was most recentlyadmitted to [facility] in April 2021. Effexor dose was increased to 75mg daily at that time. Patient reports taking all medications prior to admission. - Continue Effexor 75mg - Continue Trazodone 150mg QHS #Acute dystonia, improved Patient had intermittent involuntary inversion of R foot that he reported started occurring after Droperidol injection. Acute dystonic reaction is likely 2/2 antipsychotic administration. Was given 50mg IM Benadryl in ED. Patient denies any current symptoms and was not noted to have involuntary inversion on exam. - Continue monitoring - Avoid antipsychotics if possible CHRONIC MEDICAL PROBLEMS: Allergies: continue home Loratadine 10mg daily Disposition: [facility] residential treatment tomorrow DVT PPx: Lovenox CODE: Full Code Discussed patient history, assessment, and treatment plan with faculty attending Dr. Lety Simpson MD, who has personally evaluated the patient. Haley Son, MS4 Associated attestation - Lety Simpson MD - 08/22/2021 2:20 PM EDT Attending Attestation of Medical Student Documentation: The associated note is to be used as the primary progress note for today's encounter. I have personally seen the patient 08/22/21. Case was seen with MS4 Haley Son and I re-performed the physical exam as below. I was present during the medical decision making and have verfiedthe associate noted. I agree with the plan as stated with changes made as necessary. Mckinley Roman is a 36yo male with PMH of bipolar verses major depressive disorder, severe alcohol use disorder, history of complicated alcohol withdrawal, polysubstance abuse disorder who presented with acute intoxication, with concern for withdrawal and suicidal ideation. Given 100+ days of sobriety prior to relapse, concern for patient developing severe withdrawal symptoms in the coming days isextremely low. He has appropriately received phenobarbital taper which can end today, discontinuingtelemetry. Regarding SI, patient stated that he was suicidal to expedite admission and getting helpagain. He is now denying SI and apologizes for his behavior while intoxicated. Plan to discharge [facility] for residential treatment tomorrow at 9am. Lety Simpson MD [employer] of Clinical Medicine Division of [facility] [place] Department of Internal Medicine [phone] * Young BenjaminLEODAN - 08/22/2021 10:52 AM EDT Reason for Consult: ETOH resources and financial resources Consulted By: Gojimo 7 Team Assessment SW met with patient to discuss patients ETOH use and any interest in pursuing treatment therefore. Patient reports recent ETOH use having occurred over a period of one day of roughly 12 alcoholic beverages. Prior to this, patient endorses a period of sobriety for nearly 4 months. Patient reports having been living in a residential sober community, and reports that he will be conversing with the partnership marketing manager of said community to return upon discharge. Patient also reports no anticipated financial needs upon discharge. Action Plan SW will angelo consult as complete. Addendum 08/22 ARIANA is informed patient has been accepted back to the [facility], which patient had previously been residing at, for residential AOD treatment. Lorne, director at [facility] [phone], states patient can admit as soon at 0900 08/23 as long as he's medically cleared to discharge. Patient will need to bring discharge paperwork with him. LEODAN Darden, INSIGHT DIRECTOR * Miya Avendaoñ - 08/21/2021 4:05 PM EDT Admission Screening for Discharge Planning Patient is here for suicide attempt. After review of chart and discussion with treatment team, [facility] has not identified needs at this time. Patient is expected to discharge 08/25. Should discharge needs arise please place a consult order for case management. Risk of Readmission: 3.3 Category Reference: High:16-100 Mod-High:10-16 Mod-Low: 5-10 Low: 0-5 CM consulted SW for SI and AOD resources. Miya Villalobos, FANS CLERK, LEATHER DRIER, CCM Clinical Chef & Owner * Haley Son - 08/21/2021 12:45 PM EDT Internal Medicine Daily Progress Note Patient: Mckinley Roman, 1985, [id number] Medical Student: Haley Son, 4 Subjective/Interval History: Patient was irritable upon interview this morning, reported feeling very tired and not sleeping much overnight. Says his last drink was yesterday morning, unable to quantify how much but said he was binge drinking with beer and liquor. Reports that he drinks some quantity of alcohol daily. Was recently at [facility] in April 2021 but started drinking a few weeks after discharge. Denies any other drug use. Says he is currently homeless and denies having any support from family or friends. Last SI was yesterday, denies SI/HI this morning. Denies tremor, sweating, headache, palpitations, GI upset, N/V, hallucinations, or anxiety this morning. Objective: Vitals: 08/21/21 1119 BP: 150/65 Pulse: 75 Resp: 14 Temp: 98 F (36.7 C) O2 Device: room air (08/21/21219) Flow (L/min): 0 (08/21/21219) Body mass index is 43.38 kg/m . Physical Exam: General: Alert and oriented. Irritable and restless during interview. HEENT: Normocephalic and atraumatic. Eyes: PERRL. No scleral icterus. Neck: Neck supple Respiratory: Normal respiratory effort. Clear to auscultation bilaterally. Cardiovascular: Normal rate and regular rhythm. No murmurs, rubs, or gallops appreciated. No LE edema. Abdomen: Soft, non-distended, non-tender. Normal bowel sounds. Musculoskeletal: No deformities noted. Normal range of motion all extremities. Neurological: Moves all extremities. Awake, alert, oriented x3, speech clear. Skin: No rashes or excoriations noted on face, abd, or limbs. No jaundice Psych: irritable, not currently responding to internal stimuli, denies SI/HI Data Review: WBC/Hgb/Hct/Plts: 11.71/15.5/43.9/273 (08/21 228) Na/K+/Phos/Mg/Ca: 137/3.3/--/1.8/8.8 (08/21 228) Bun/Creat/Cl/CO2/Glucose: 17/1.14/103/22/82 (08/21 228) Recent Labs 08/21/21228 ALT 29 AST 33 ALKPHOS 83 BILITOTAL 0.8 BILIDIRECT 0.1 Ptt/Pt/Inr: 29.1/14.4/1.1 (08/21 228) Assessment/Plan: Mckinley Roman is a 36 y.o. male with a history of MDD vs bipolar disorder 2, EtOH use disorder c/b withdrawal seizure, and stimulant use disorder who presents following suicide attempt in the settingof alcohol intoxication. ACTIVE MEDICAL PROBLEMS: #Alcohol withdrawal Patient with elevated serum alcohol level in ED and presented via EMS from local [facility]. Of note, patient was seen in [place] ED on 08/20 with alcohol intoxication and left on his own. States last drink was morning of 08/20 with beer and liquor of unknown quantity, and says he was binge drinking . Patient has a history of recurrent admissions for alcohol intoxication and alcohol withdrawal c/b seizures since 2016. Patient was agitated and responding to internal stimuli in ED, concerning for auditory hallucinations, so he was given IM Droperidol and Versed. No EKG obtained in ED. Patient was started on phenobarbital taper given history of severe alcohol withdrawal. CIWA of 25 on admission, butdown to 2 on 08/21 following initiation of phenobarb taper. - Continue phenobarbital taper - Seizure, CIWA, and aspiration precautions in place - Continue Folic acid, thiamine, and multivitamin daily - Continuous cardiac monitoring and pulse ox - EKG pending #Suicidal ideation and attempt Patient found with laceration on L arm and asking ED staff for knife to make him bleed . Patient has history of suicidal ideation in the setting of alcohol intoxication on multiple other occasions and received inpatient psychiatric treatment as recent as April 2021 at [facility]. Denies SI/HI during admission. - Psych consulted, appreciate recs - High risk suicide precautions in place - 1:1 sitter #Major depressive disorder History of depression with suicidal ideation dating back to 2015 on chart review. Was most recentlyadmitted to [facility] in April 2021. Effexor dose was increased to 75mg daily at that time. Patient reports taking all medications prior to admission. - Continue Effexor 75mg - Continue Trazodone 150mg QHS #Acute dystonia, improved Patient had intermittent involuntary inversion of R foot that he reported started occurring after Droperidol injection. Acute dystonic reaction is likely 2/2 antipsychotic administration. Was given 50mg IM Benadryl in ED. Patient denies any symptoms this morning and was not noted to have involuntary inversion on exam today. - Continue monitoring CHRONIC MEDICAL PROBLEMS: Allergies: continue home Loratadine 10mg daily Disposition: Pending further psych recommendations DVT PPx: Lovenox CODE: Full Code Discussed patient history, assessment, and treatment plan with faculty attending Dr. Lety Simpson MD, who has personally evaluated the patient. Haley Son, MS4 Associated attestation - Lety Simpson MD - 08/21/2021 2:25 PM EDT Attending Attestation of Medical Student Documentation: The associated note is to be used as the primary progress note for today's encounter. I have personally seen the patient 08/21/21. Case was seen with MS4 Haley Son and I re-performed the physical exam as below. I was present during the medical decision making and have verfiedthe associate noted. I agree with the plan as stated with changes made as necessary. Mckinley Roman is a 36yo male with PMH of bipolar verses major depressive disorder, severe alcohol use disorder, history of complicated alcohol withdrawal, polysubstance abuse disorder who presented with acute intoxication, now with concern for withdrawal and suicidal ideation. Continuing high risk s uicide precautions, 1:1 sitter, medical hold, psychiatry consult placed. Given history of complicated withdrawal, treating with phenobarbital taper. He does not currently have capacity to decline these interventions or telemetry. Was quite agitated this morning, tachycardic, restless, diaphoretic. Disposition to be determined following management of withdrawal and per psychiatry recommendations. Lety Simpson MD [employer] Clinical Medicine Division of [facility] Department of Internal Medicine [phone] * Isrrael Hector RN - 08/21/2021 2:45 AM EDT On admission to [facility], from ED a dual RN initial assessment of skin condition was performed by Isrrael Hector RN and Jose TAY. Skin Assessment: Skin within defined limits:Yes LDA Added:No Isrrael Hector RN [facility] Discharge instructions* Discharge Instructions* Haley Son - 08/22/2021 2:28 PM EDT During this hospital admission you were treated for alcohol withdrawal and a suicide attempt. If you have thoughts of wanting to harm yourself or others, please go to the nearest emergency department. [facility]* Nursing Notes - UZIEL Ramos - 08/21/2021 10:14 PM EDT Pt is more awake and in a better state of mind. Pt denies any SI and is calm, pleasant and well aware of the situation. Pt has a better appetite and ate a couple sandwiches and snacks since he didn'teat much dinner due to receiving the wrong items ordered. Pt independently showered, changed his bed and brushed his teeth. Pt has his cell phone been reaching out to his recovery sponsor and recovery group to give them an update. Pt has been calm and happy with overall phone conversations. Pt is communicating with sitter and nurse calmly and clearly. Pt is compliant with treatment and care. [facility]07-14-2022 Note* Nursing Notes - Sher Antonio RN - 08/21/2021 3:24 PM EDT BEHAVIORAL EMERGENCY RESPONSE TEAM ([facility]) RN NOTE 08/21/2021 Mckinley Roman : 1985 [facility] rounding. Patient sleeping in bed. FILM AND VIDEO EDITOR sitter present at bedside. Patient is compliant with wearing [facility] gown. Did not disturb patient at this time. No needs were noted while checking in with staff. The Behavioral Emergency Response Team is available [phone] every day. Please use [facility] as a resource for patient as needed. [facility]07-14-2022 Note* Certification - Bonnie Hewitt MD - 08/21/2021 6:10 AM EDT I certify that this patient requires inpatient services at this time. I anticipate the expected length of stay will include at least two midnights. Inpatient services are due to the following medicalconcerns suicidal ideation with attempt; alcohol withdrawal. Plans for post hospitalization care will be discharge to home. Bonnie Hewitt MD Department of Internal Medicine, PGY-2 [facility] Work Phone: [phone]) [phone] Note* Plan of Care - Isrrael Hector RN - 08/21/2021 4:38 AM EDT Problem: Patient Care Overview Goal: Plan of Care Review Outcome: Ongoing Goal: Individualization & Mutuality Outcome: Ongoing Goal: Discharge Needs Assessment Outcome: Ongoing Goal: Interdisciplinary Rounds/Family Conf Outcome: Ongoing Problem: Dysphagia (Adult) Goal: Identify Related Risk Factors and Signs and Symptoms Description: Related risk factors and signs and symptoms are identified upon initiation of Human Response Clinical Practice Guideline (CPG) Outcome: Ongoing Goal: Functional/Safe Swallow Description: Patient will demonstrate the desired outcomes by discharge/transition of care. Outcome: Ongoing Goal: Compensatory Techniques to Improve Safety/Function with Swallowing Description: Patient will demonstrate the desired outcomes by discharge/transition of care. Outcome: Ongoing Problem: Alcohol Withdrawal Acute, Risk/Actual (Adult) Goal: Signs and Symptoms of Listed Potential Problems Will be Absent, Minimized or Managed (AlcoholWithdrawal Acute, Risk/Actual) Description: Signs and symptoms of listed potential problems will be absent, minimized or managed by discharge/transition of care (reference Alcohol Withdrawal Acute, Risk/Actual (Adult) CPG). Outcome: Ongoing Problem: Fall/Trauma/Injury Risk (Adult) Goal: Fall/Trauma/Injury Risk: Absence of Trauma/Injury/Falls Description: Patient will demonstrate the desired outcomes. Outcome: Ongoing Goal: Knowledge of risk factors/behavior modification Description: Knowledge of risk factors/behavior modification for fall/injury prevention Outcome: Ongoing [facility]07-13-2022 History and physical note* Jese Lewis MD - 08/20/2021 5:48 PM EDT Internal Medicine Admission History & Physical Patient: Mckinley Roman, 1985, [id number] Physician: Jese Lewis MD, Gen Med 7 service Date of face to face patient encounter: 08/20/21. Chief Complaint: Suicide and laceration History Of Present Illness: Mckinley Roman is a 36 y.o. male with a history of MDD vs bipolar disorder, EtOH UD c/b withdrawal seizure, stimulant UD who presents he EMS due to suicidal ideation with attempt. Per pervious notes, [facility] I just want to go see my dad. Can you make this should stop in my head? Patient was found to have a superficial laceration tohis left arm. Appeared to be responding to internal stimuli. Previously stated patient wanted to while in ED, reported hearing voices and somone in room with him telling him that he needed to hurt himself. Denied homicidal ideation at that time. On interview, notes he is no longer suicidal, not responding to internal stimuli. Not hearing or seeing things that others might not be. Endorses regret for the stupid drunken incident that led to laceration of the left arm. Currently tremulous, agitated, and diaphoretic Notes previous withdrawals from alcohol in the past. Most recent several months ago. Notes that he usually has shivers, diaphoresis. Does not endorse hallucinations or seizures in the past. Notes previous drug use with amphetamines, crack, cocaine, benzos, but notes last use in March of 2021. Also notes significant pain with involuntary internal rotation of his right foot. He notes that this began shortly after injection with droperidol. Medical/Surgical History: Past Medical History: Diagnosis Date Bipolar 1 disorder Depression No past surgical history on file. Social History: Social History Tobacco Use Smoking status: Current Every Day Smoker Types: Cigarettes Smokeless tobacco: Never Used Substance Use Topics Alcohol use: Yes Social History Substance and Sexual Activity Drug Use Yes Types: Methamphetamines, Crack cocaine, Cocaine, Benzodiazepines Social History Social History Narrative Not on file Family History: family history is not on file. Medications: Prior to Admission Medications Prescriptions Last Dose Informant Patient Reported? Taking? folic acid 1 MG tablet No No Sig: Take 1 tablet by mouth daily. loratadine 10 MG tablet No No Sig: Take 1 tablet by mouth daily. multivitamin w/ minerals tablet No No Sig: Take 1 tablet by mouth daily. thiamine 100 MG tablet No No Sig: Take 1 tablet by mouth daily. trazodone 150 MG tablet No No Sig: Take 1 tablet by mouth at bedtime. venlafaxine 75 MG Cap SR 24HR capsule XR No No Sig: Take 1 capsule by mouth daily with breakfast. Facility-Administered Medications: None I have personally reviewed the medication list, verified it, and updated it via the Medication Reconciliation Navigator: []Verbally with the patient []With the patient's personal medication list []Verbally with the patient's family member [X]Verbally with the facility's MAR []With the patient's Pharmacy Allergies: Allergies Allergen Reactions *Seasonal Runny Nose Review of Systems: Review of Systems Constitutional: Positive for appetite change and diaphoresis. Negative for unexpected weight change. HENT: Negative for rhinorrhea and sneezing. Eyes: Negative for photophobia and visual disturbance. Respiratory: Negative for cough and shortness of breath. Cardiovascular: Negative for chest pain and palpitations. Gastrointestinal: Positive for nausea. Negative for abdominal distention, abdominal pain, diarrhea and vomiting. Endocrine: Negative for polydipsia and polyuria. Genitourinary: Negative for difficulty urinating and urgency. Musculoskeletal: Positive for myalgias. Negative for arthralgias. Neurological: Negative for dizziness, syncope and light-headedness. Physical Exam: Vitals: 08/20/21 1800 BP: 132/62 Pulse: 86 Resp: 22 Temp: O2 Device: room air (08/20/21 1626) Gen: Laying in bed in distress, agitated, Diaphoretic Eyes: No conjunctival injection or scleral icterus. HENT: Atraumatic, MMM Resp: Clear to ausculation bilaterally. No increased work of breathing Cardio: RRR, no m/r/g GI: Soft, non-tender, non-distended MS: Full ROM bilaterally, atraumatic Skin: Warm, dry, peripheral pulses 2+ Neuro: CN 2-12 grossly intact, strength 5/5 bilaterally, Right foot intermittently involuntarily inverts Psych: agitated, not currently responding to internal stimuli, not currently suicidal There is no height or weight on file to calculate BMI. Data Review: Na/K+/Phos/Mg/Ca: 135/4.1/--/--/-- (08/20 1357) Bun/Creat/Cl/CO2/Glucose: 15/1.20/104// (08/20 1357) No orders to display Impression/Plan: In summary, Mckinley Roman is a 36 y.o. male with past medical history of MDD vs bipolar disorder, EtOH use disorder c/b withdrawal seizure, stimulant use disorder who presents by EMS due to suicidal ideation with attempt. Suicide attempt / Ideation L arm lac. Endorses previously being suicidal, notes that not currently suicidal. Preventative factors of fear of . - Psych consult - At this point does not have capacity Acute Psychosis Acute psychosis on presentation, reportedly responding to internal stimuli. Not currently responding to stimuli - One dose of droperidol in ED - in setting of possible dystonic reaction, will hold additional doses unless becomes acutely psychotic again. Acute Withdrawal Likely alcohol given history of previous withdrawals from alcohol, although endorses use last night, and had positive alcohol level on admission, although also had positive benzo in UDS, so possible that is related to historic benzo use. Patient does not endorse current benzo use. - CIWA - most recent 25 - started on medications - Seizure precautions - Started on phenobarbital taper Dystonia Dystonic involuntary inversion of right foot that is happening intermittently. Patient reports started happening after injection with droperidol. Suspect likely secondary to antipsychotic use. Could also have elements of akathisia, although unclear in setting of acute alcohol withdrawal if agitation and inability to sit still is due to one or other other. - Consider treatment with 50mg IM of diphenhydramine Bipolar vs MDD Likely with psychotic features given recent episodes of responding to internal stimuli. - Home Venlafaxine continued DVT prophylaxis with lovenox Disposition: Admission to [place] [address] Code status is presumed full code, no additional contacts listed in chart Staffed with Dr. Young Signed, Jese Lewis MD Internal Medicine PGY1 Pager [phone] Associated attestation - Benjamin Young MD - 08/20/2021 11:03 PM EDT Attending attestation: I saw and evaluated the patient independently. I discussed the plan of care with the residents. I have reviewed the resident note and agree with the findings and plan of care as documented. In short, Mr Roman presents after a possible suicide attempt while intoxicated. He presented with elevated CIWA scores and thus was started on phenobarbital. SI with possible psychosis - consult to psych ETOH abuse with withdrawal - cont phenobarb - Consider naltrexone MAT when closer to DC He was not able to relay his family history to me due to sedation Date of service: 08/20/2021 Benjamin Young MD [facility]07-13-2022 History and physical note* Jese Lewis MD - 08/20/2021 5:48 PM EDT Internal Medicine Admission History & Physical Patient: Mckinley Roman, 1985, [id number] Physician: Jese Lewis MD, Gen Med 7 service Date of face to face patient encounter: 08/20/21. Chief Complaint: Suicide and laceration History Of Present Illness: Mckinley Roman is a 36 y.o. male with a history of MDD vs bipolar disorder, EtOH UD c/b withdrawal seizure, stimulant UD who presents he EMS due to suicidal ideation with attempt. Per pervious notes, patient was found at [employer] stating I just want to go see my dad. Can you make this should stop in my head? Patient was found to have a superficial laceration tohis left arm. Appeared to be responding to internal stimuli. Previously stated patient wanted to while in ED, reported hearing voices and somone in room with him telling him that he needed to hurt himself. Denied homicidal ideation at that time. On interview, notes he is no longer suicidal, not responding to internal stimuli. Not hearing or seeing things that others might not be. Endorses regret for the stupid drunken incident that led to laceration of the left arm. Currently tremulous, agitated, and diaphoretic Notes previous withdrawals from alcohol in the past. Most recent several months ago. Notes that he usually has shivers, diaphoresis. Does not endorse hallucinations or seizures in the past. Notes previous drug use with amphetamines, crack, cocaine, benzos, but notes last use in March of 2021. Also notes significant pain with involuntary internal rotation of his right foot. He notes that this began shortly after injection with droperidol. Medical/Surgical History: Past Medical History: Diagnosis Date Bipolar 1 disorder Depression No past surgical history on file. Social History: Social History Tobacco Use Smoking status: Current Every Day Smoker Types: Cigarettes Smokeless tobacco: Never Used Substance Use Topics Alcohol use: Yes Social History Substance and Sexual Activity Drug Use Yes Types: Methamphetamines, Crack cocaine, Cocaine, Benzodiazepines Social History Social History Narrative Not on file Family History: family history is not on file. Medications: Prior to Admission Medications Prescriptions Last Dose Informant Patient Reported? Taking? folic acid 1 MG tablet No No Sig: Take 1 tablet by mouth daily. loratadine 10 MG tablet No No Sig: Take 1 tablet by mouth daily. multivitamin w/ minerals tablet No No Sig: Take 1 tablet by mouth daily. thiamine 100 MG tablet No No Sig: Take 1 tablet by mouth daily. trazodone 150 MG tablet No No Sig: Take 1 tablet by mouth at bedtime. venlafaxine 75 MG Cap SR 24HR capsule XR No No Sig: Take 1 capsule by mouth daily with breakfast. Facility-Administered Medications: None I have personally reviewed the medication list, verified it, and updated it via the Medication Reconciliation Navigator: []Verbally with the patient []With the patient's personal medication list []Verbally with the patient's family member [X]Verbally with the facility's MAR []With the patient's Pharmacy Allergies: Allergies Allergen Reactions *Seasonal Runny Nose Review of Systems: Review of Systems Constitutional: Positive for appetite change and diaphoresis. Negative for unexpected weight change. HENT: Negative for rhinorrhea and sneezing. Eyes: Negative for photophobia and visual disturbance. Respiratory: Negative for cough and shortness of breath. Cardiovascular: Negative for chest pain and palpitations. Gastrointestinal: Positive for nausea. Negative for abdominal distention, abdominal pain, diarrhea and vomiting. Endocrine: Negative for polydipsia and polyuria. Genitourinary: Negative for difficulty urinating and urgency. Musculoskeletal: Positive for myalgias. Negative for arthralgias. Neurological: Negative for dizziness, syncope and light-headedness. Physical Exam: Vitals: 08/20/21 1800 BP: 132/62 Pulse: 86 Resp: 22 Temp: O2 Device: room air (08/20/21 1626) Gen: Laying in bed in distress, agitated, Diaphoretic Eyes: No conjunctival injection or scleral icterus. HENT: Atraumatic, MMM Resp: Clear to ausculation bilaterally. No increased work of breathing Cardio: RRR, no m/r/g GI: Soft, non-tender, non-distended MS: Full ROM bilaterally, atraumatic Skin: Warm, dry, peripheral pulses 2+ Neuro: CN 2-12 grossly intact, strength 5/5 bilaterally, Right foot intermittently involuntarily inverts Psych: agitated, not currently responding to internal stimuli, not currently suicidal There is no height or weight on file to calculate BMI. Data Review: Na/K+/Phos/Mg/Ca: 135/4.1/--/--/-- (08/20 135) Bun/Creat/Cl/CO2/Glucose: 15/1.20/104/22/87 (08/20 135) No orders to display Impression/Plan: In summary, Mckinley Roman is a 36 y.o. male with past medical history of MDD vs bipolar disorder, EtOH use disorder c/b withdrawal seizure, stimulant use disorder who presents by EMS due to suicidal ideation with attempt. Suicide attempt / Ideation L arm lac. Endorses previously being suicidal, notes that not currently suicidal. Preventative factors of fear of . - Psych consult - At this point does not have capacity Acute Psychosis Acute psychosis on presentation, reportedly responding to internal stimuli. Not currently responding to stimuli - One dose of droperidol in ED - in setting of possible dystonic reaction, will hold additional doses unless becomes acutely psychotic again. Acute Withdrawal Likely alcohol given history of previous withdrawals from alcohol, although endorses use last night, and had positive alcohol level on admission, although also had positive benzo in UDS, so possible that is related to historic benzo use. Patient does not endorse current benzo use. - CIWA - most recent 25 - started on medications - Seizure precautions - Started on phenobarbital taper Dystonia Dystonic involuntary inversion of right foot that is happening intermittently. Patient reports started happening after injection with droperidol. Suspect likely secondary to antipsychotic use. Could also have elements of akathisia, although unclear in setting of acute alcohol withdrawal if agitation and inability to sit still is due to one or other other. - Consider treatment with 50mg IM of diphenhydramine Bipolar vs MDD Likely with psychotic features given recent episodes of responding to internal stimuli. - Home Venlafaxine continued DVT prophylaxis with lovenox Disposition: Admission to [place] [address] Code status is presumed full code, no additional contacts listed in chart Staffed with Dr. Young Signed, Jese Lewis MD Internal Medicine PGY1 Pager [phone] Associated attestation - Benjamin Young MD - 08/20/2021 11:03 PM EDT Attending attestation: I saw and evaluated the patient independently. I discussed the plan of care with the residents. I have reviewed the resident note and agree with the findings and plan of care as documented. In short, Mr Roman presents after a possible suicide attempt while intoxicated. He presented with elevated CIWA scores and thus was started on phenobarbital. SI with possible psychosis - consult to psych ETOH abuse with withdrawal - cont phenobarb - Consider naltrexone MAT when closer to DC He was not able to relay his family history to me due to sedation Date of service: 08/20/2021 Benjamin Young [facility]* Elmer More RN - 08/20/2021 4:51 PM EDT PT report given JASVIR Riley. [facility] Emergency department Note* Elmer More RN - 08/20/2021 4:51 PM EDT PT report given JASVIR Riley. * Elmer More RN - 08/20/2021 4:34 PM EDT Pt continuously yelling out from his bed, Why arent you helping me??!! You guys arent doing anything! What is the plan? I cant get my legs up. Pt has been getting in and out of bed perfectly fine, has not needed assistance. Pt continuously asking for ativan. Pt in [facility] had approached this pt and said, Oh my god! Did you have a reaction to a shot? You need help! Dont worry I will help you since no one else is. Since that time, this pt has been getting more and more agitated and yelling out for help. This RN contacted MD who came and spoke to pt. Pt still yelling out from his room. * UZIEL Diaz - 08/20/2021 4:29 PM EDT TW went to get the pt vital signs and the pt stated, I cant lift my leg up on the bed they wont move. TW told the pt to try and swing his leg up on the bed. After obtaining vitals signs the pt then got up from the bed to his chair and back to the bed with no issues. * UZIEL Diaz - 08/20/2021 4:05 PM EDT Pt continues to make moaning like noises while laying flat in the bed stating, Im having an allergic reaction to the meds you gave me! I need something else. ( meds he received roughly 3 hours ago)The RN explained that she had reached out to the doctor in regards to his Allergic reaction. * Halina Ayon MD - 08/20/2021 1:46 PM EDT This patient's history, physical exam were performed by the resident. Past Medical History: Diagnosis Date Bipolar 1 disorder Depression Medication list reviewed. ROS limited due to pt agitation/mental status. On 08/20/2021 I saw and examined the patient. I discussed the history and examination with the resident and agree with the plan of care. Hx bipolar d/o and alcohol use disorder, pink slipped for suicidal attempt cut arm. Tearful, agitated on arrival and making suicidal statements here asking for knives. Reports auditory, command hallucinations. Halina Ayon MD 08/20/21 1347 Halina Ayon MD 08/20/21 1348 * Flor Carrillo DO - 08/20/2021 1:39 PM EDT EMERGENCY DEPARTMENT ENCOUNTER CHIEF COMPLAINT Suicidal and Laceration HPI Mckinley Roman is a 36 y.o. male with medical hx of MDD vs bipolar disorder 2, EtOH UD c/b withdrawal seizure, stimulant UD who presents he EMS due to suicidal ideation with attempt. Patient was foundat [employer] stating I just want to go see my dad. Can you make this should stop in my head? Patient was found to have a superficial laceration to his left arm. Bedtime, he was responding to internal stimuli. On arrival to the emergency department, patient was crying and agitated telling me that he is hearing voices that tell him that he needs to bleed . Patient then started askingme if I had a knife and if I could make him bleed. Patient says that he wants to . Patient states that he hears voices and has somebody in the room with him needing to come in of telling him that he needs to hurt himself. Patient denies any homicidal ideation and states that the voices have never told him to hurt anybody else. On chart review, it does appear that he has a history of alcohol abuse. It appears that he was seenat [facility] earlier today or late last night for alcohol intoxication. Identify Protective Factors (Protective factors may not counteract significant acute suicide risk factors) Internal: Fear of or the actual act of killing self External: N/A ED-SAFE PATIENT SECONDARY SCREENER (ESS-6) This tool should be administered by the provider after a patient endorses active ideation in the past 2 weeks (PSS Item 2= Yes) OR suicide attempt within the past 6 months (PSS Item 3= within past 6 months). Assess the following six indicators using all data available to you, including patient self-report,collateral information, medical record review, and current observations. Each Yes gets a score of1 1. Positive on both safety screener (PSS-3) items - active ideation with a past attempt. Source: safety screening (PSS-3), documented on chart yes 2. Recurrent or current suicide plan* Suggested wording: Have you been thinking about how you might kill yourself? yes 3. Recurrent or current intent to act on ideation* Suggested wording: Have you had some intention of acting on your thoughts? yes 4. Lifetime psychiatric hospitalization Suggested wording: Have you ever been hospitalized for a mental health or substance abuse problem? yes 5. Pattern of excessive substance abuse Suggested Wording: Has drinking or drug abuse ever been a problem for you? Or positive on CAGE or other standardized substance use screener. yes 6. Current Irritability, agitation or aggression Source: clinical observation, collateral report. yes A. Assign a score of 1 for each Yes above and combine to obtain a total score. Score: 07/14 B. *Critical Item Review: - Item 2: Suicide plan present? yes - Item 3: Intent present yes - Current attempt? yes The Purpose of this tool is initial stratification of clinical decision-making and risk mitigation.Not highly accurate prediction of suicide. Stratification instructions are below Stratification and Care Recommendations 1. Check one box in each row based on the score in A and the critical item status in B: Negligible Mild Risk Moderate Risk High Risk A. Score Not applicable (negative on primary screener) ___ 0-2 ____ 3-4 __X_ 5-6 B. Critical Items ___ no current attempt ___ no current attempt ___ no current attempt _X__ currentattempt ___ no suicide plan or intent ___ no suicide plan or intent ___ suicide plan or intent _X__ suicideplan and intent 2. Conclude risk level based on HIGHEST level category endorsed on any row: _high 3. Enact mitigation and recommend care appropriate to risk level: Mitigation and Recommended Care Mild Moderate High Constant observation not required Constant observation (1:several), make room safe recommended Constant observation (1:1) and make room safe or ligature resistant room recommend Behavioral health evaluation volutnary Behavioral health evaluation recommended Behavioral health evaluation recommended Suicide Prevention and Mental Health discharge resources Suicide Prevention and Mental Health discharge resources Suicide Prevention and Mental Health discharge resources Safety plan recommended at discharge Safety plan recommended at discharge Safety plan recommended at discharge PAST MEDICAL HISTORY Past Medical History: Diagnosis Date Bipolar 1 disorder Depression SURGICAL HISTORY No past surgical history on file. CURRENT MEDICATIONS Current Outpatient Medications Medication Sig folic acid 1 MG tablet Take 1 tablet by mouth daily. loratadine 10 MG tablet Take 1 tablet by mouth daily. multivitamin w/ minerals tablet Take 1 tablet by mouth daily. thiamine 100 MG tablet Take 1 tablet by mouth daily. trazodone 150 MG tablet Take 1 tablet by mouth at bedtime. venlafaxine 75 MG Cap SR 24HR capsule XR Take 1 capsule by mouth daily with breakfast. ALLERGIES Allergies Allergen Reactions *Seasonal Runny Nose Family history reviewed and noncontributory other than: No family history on file. Social history reviewed and noncontributory other than: Social History Socioeconomic History Marital status: Single Spouse name: Not on file Number of children: Not on file Years of education: Not on file Highest education level: Not on file Occupational History Not on file Tobacco Use Smoking status: Current Every Day Smoker Types: Cigarettes Smokeless tobacco: Never Used Vaping Use Vaping Use: Never used Substance and Sexual Activity Alcohol use: Yes Drug use: Yes Types: Methamphetamines Sexual activity: Not on file Other Topics Concern Not on file Social History Narrative Not on file Social Determinants of Health Financial Resource Strain: Not on file Food Insecurity: Not on file Transportation Needs: Not on file Physical Activity: Not on file Stress: Not on file Social Connections: Not on file Intimate Partner Violence: Not on file Housing Stability: Not on file REVIEW OF SYSTEMS Review of Systems Constitutional: Negative for fever. HENT: Negative for sore throat. Eyes: Negative for blurred vision. Cardiovascular: Negative for chest pain and palpitations. Gastrointestinal: Negative for vomiting. Genitourinary: Negative for dysuria. Musculoskeletal: Negative for back pain. Skin: Negative for rash. Neurological: Negative for headaches. Psychiatric/Behavioral: Positive for hallucinations, substance abuse and suicidal ideas. PHYSICAL EXAM VITAL SIGNS: BP 122/67 Pulse 84 Temp 98.4 F (36.9 C) (Oral) Resp 15 SpO2 98% Smoking Status Current Every Day Smoker Physical Exam Vitals and nursing note reviewed. Constitutional: Appearance: He is normal weight. HENT: Head: Normocephalic and atraumatic. Mouth/Throat: Mouth: Mucous membranes are moist. Pharynx: Oropharynx is clear. Eyes: Extraocular Movements: Extraocular movements intact. Pupils: Pupils are equal, round, and reactive to light. Cardiovascular: Rate and Rhythm: Normal rate and regular rhythm. Pulses: Normal pulses. Pulmonary: Effort: Pulmonary effort is normal. Skin: General: Skin is warm and dry. Capillary Refill: Capillary refill takes less than 2 seconds. Neurological: Mental Status: He is alert and oriented to person, place, and time. Psychiatric: Comments: Responding to internal stimuli SI Agitated Labile ED COURSE & MEDICAL DECISION MAKING ddx includes: suicidal ideation, homicidal ideation, psychosis, drug ingestion, drug intoxication, alcohol intoxication, alcohol withdraw I reviewed the patients medical records and noted there allergies, past medical history, and previous visits. The reviewed showed prior admissions for similar presentations. Most recently here in April 2021. I reviewed the nursing notes. Patient was reporting hallucinations and was elevated/agitated ultimately requiring emergency PRN medications (droperidol and versed IM). I do have some concern for alcohol withdraw complicating his presentation but believe the majority of his presentation today is psychiatric. Plan to put on CIWA precautions. I have reviewed the labs and imaging for the visit and noted the abnormal results. Plan: Labs - EtOH level, APAP, chemistry, [employer] - Droperidol + Versed; CIWA precautions Consults - psych Imaging - None Dispo: Pending psych recommendations, likely admit Impression - SI with attempt, hallucinations ED Course as of 08/20/21 1458 WedAug 20, 2021 1339 Hx of Bipolar 1, alcohol abuse. Reporting command auditory hallucinations. Agitated and labile. Asking staff for knives. Update: Patient was placed on CIWA precautions and found to have level of 25 on repeat examinations. Given his history of alcohol withdrawal complicated by seizures, he has high risk. Plan to start him on a phenobarbital taper and admit to PCU for further evaluation management. Patient will still need psychiatric consultation for evaluation of his suicidal ideation. Flor Carrillo DO Resident 08/20/21 1640 * Elmer More RN - 08/20/2021 1:36 PM EDT Pt arrives crying and elevated. Pt changing into gown with no issues. * Jennifer Schneider RN - 08/20/2021 1:18 PM EDT Bed: E065 Expected date: 08/20/21 Expected time: 1:17 PM Means of arrival: Comments: Mckinley triage * Jennifer Schneider RN - 08/20/2021 1:10 PM EDT [facility] Pt has superficialy lacerations to the left arm. Pt states, I just wanted to go see my dad. Can you make this shit stop in my head? Pt responding to internal stimuli. Pt also reports his rectum stings and bear. [facility]* Elmer More RN - 08/20/2021 4:34 PM EDT Pt continuously yelling out from his bed, Why arent you helping me??!! You guys arent doing anything! What is the plan? I cant get my legs up. Pt has been getting in and out of bed perfectly fine, has not needed assistance. Pt continuously asking for ativan. Pt in [facility] had approached this pt and said, Oh my god! Did you have a reaction to a shot? You need help! Dont worry I will help you since no one else is. Since that time, this pt has been getting more and more agitated and yelling out for help. This RN contacted MD who came and spoke to pt. Pt still yelling out from his room. [facility]* UZIEL Diaz - 08/20/2021 4:29 PM EDT TW went to get the pt vital signs and the pt stated, I cant lift my leg up on the bed they wont move. TW told the pt to try and swing his leg up on the bed. After obtaining vitals signs the pt then got up from the bed to his chair and back to the bed with no issues. [facility] Emergency [facility] Note* UZIEL Diaz - 08/20/2021 4:05 PM EDT Pt continues to make moaning like noises while laying flat in the bed stating, Im having an allergic reaction to the meds you gave me! I need something else. ( meds he received roughly 3 hours ago)The RN explained that she had reached out to the doctor in regards to his Allergic reaction. [facility] Phys[facility] Emergency department Note* Halina Ayon MD - 08/20/2021 1:46 PM EDT This patient's history, physical exam were performed by the resident. Past Medical History: Diagnosis Date Bipolar 1 disorder Depression Medication list reviewed. ROS limited due to pt agitation/mental status. On 08/20/2021 I saw and examined the patient. I discussed the history and examination with the resident and agree with the plan of care. Hx bipolar d/o and alcohol use disorder, pink slipped for suicidal attempt cut arm. Tearful, agitated on arrival and making suicidal statements here asking for knives. Reports auditory, command hallucinations. Halina Ayon MD 08/20/21 1788 Halina Ayon MD 08/20/21 4311 [facility] Work Phone: [phone] Physician Emergency department Note* Flor Carrillo DO - 08/20/2021 1:39 PM EDT EMERGENCY DEPARTMENT ENCOUNTER CHIEF COMPLAINT Suicidal and Laceration HPI Mckinley Roman is a 36 y.o. male with medical hx of MDD vs bipolar disorder 2, EtOH UD c/b withdrawal seizure, stimulant UD who presents he EMS due to suicidal ideation with attempt. Patient was foundat [employer] stating I just want to go see my dad. Can you make this should stop in my head? Patient was found to have a superficial laceration to his left arm. Bedtime, he was responding to internal stimuli. On arrival to the emergency department, patient was crying and agitated telling me that he is hearing voices that tell him that he needs to bleed . Patient then started askingme if I had a knife and if I could make him bleed. Patient says that he wants to . Patient states that he hears voices and has somebody in the room with him needing to come in of telling him that he needs to hurt himself. Patient denies any homicidal ideation and states that the voices have never told him to hurt anybody else. On chart review, it does appear that he has a history of alcohol abuse. It appears that he was seen[facility] [employer] [facility] earlier today or late last night for alcohol intoxication. Identify Protective Factors (Protective factors may not counteract significant acute suicide risk factors) Internal: Fear of or the actual act of killing self External: N/A ED-SAFE PATIENT SECONDARY SCREENER (ESS-6) This tool should be administered by the provider after a patient endorses active ideation in the past 2 weeks (PSS Item 2= Yes) OR suicide attempt within the past 6 months (PSS Item 3= within past 6 months). Assess the following six indicators using all data available to you, including patient self-report,collateral information, medical record review, and current observations. Each Yes gets a score of1 1. Positive on both safety screener (PSS-3) items - active ideation with a past attempt. Source: safety screening (PSS-3), documented on chart yes 2. Recurrent or current suicide plan* Suggested wording: Have you been thinking about how you might kill yourself? yes 3. Recurrent or current intent to act on ideation* Suggested wording: Have you had some intention of acting on your thoughts? yes 4. Lifetime psychiatric hospitalization Suggested wording: Have you ever been hospitalized for a mental health or substance abuse problem? yes 5. Pattern of excessive substance abuse Suggested Wording: Has drinking or drug abuse ever been a problem for you? Or positive on CAGE or other standardized substance use screener. yes 6. Current Irritability, agitation or aggression Source: clinical observation, collateral report. yes A. Assign a score of 1 for each Yes above and combine to obtain a total score. Score: 6/6 B. *Critical Item Review: - Item 2: Suicide plan present? yes - Item 3: Intent present yes - Current attempt? yes The Purpose of this tool is initial stratification of clinical decision-making and risk mitigation.Not highly accurate prediction of suicide. Stratification instructions are below Stratification and Care Recommendations 1. Check one box in each row based on the score in A and the critical item status in B: Negligible Mild Risk Moderate Risk High Risk A. Score Not applicable (negative on primary screener) ___ 0-2 ____ 3-4 __X_ 5-6 B. Critical Items ___ no current attempt ___ no current attempt ___ no current attempt _X__ currentattempt ___ no suicide plan or intent ___ no suicide plan or intent ___ suicide plan or intent _X__ suicideplan and intent 2. Conclude risk level based on HIGHEST level category endorsed on any row: _high 3. Enact mitigation and recommend care appropriate to risk level: Mitigation and Recommended Care Mild Moderate High Constant observation not required Constant observation (1:several), make room safe recommended Constant observation (1:1) and make room safe or ligature resistant room recommend Behavioral health evaluation volutnary Behavioral health evaluation recommended Behavioral health evaluation recommended Suicide Prevention and Mental Health discharge resources Suicide Prevention and Mental Health discharge resources Suicide Prevention and Mental Health discharge resources Safety plan recommended at discharge Safety plan recommended at discharge Safety plan recommended at discharge PAST MEDICAL HISTORY Past Medical History: Diagnosis Date Bipolar 1 disorder Depression SURGICAL HISTORY No past surgical history on file. CURRENT MEDICATIONS Current Outpatient Medications Medication Sig folic acid 1 MG tablet Take 1 tablet by mouth daily. loratadine 10 MG tablet Take 1 tablet by mouth daily. multivitamin w/ minerals tablet Take 1 tablet by mouth daily. thiamine 100 MG tablet Take 1 tablet by mouth daily. trazodone 150 MG tablet Take 1 tablet by mouth at bedtime. venlafaxine 75 MG Cap SR 24HR capsule XR Take 1 capsule by mouth daily with breakfast. ALLERGIES Allergies Allergen Reactions *Seasonal Runny Nose Family history reviewed and noncontributory other than: No family history on file. Social history reviewed and noncontributory other than: Social History Socioeconomic History Marital status: Single Spouse name: Not on file Number of children: Not on file Years of education: Not on file Highest education level: Not on file Occupational History Not on file Tobacco Use Smoking status: Current Every Day Smoker Types: Cigarettes Smokeless tobacco: Never Used Vaping Use Vaping Use: Never used Substance and Sexual Activity Alcohol use: Yes Drug use: Yes Types: Methamphetamines Sexual activity: Not on file Other Topics Concern Not on file Social History Narrative Not on file Social Determinants of Health Financial Resource Strain: Not on file Food Insecurity: Not on file Transportation Needs: Not on file Physical Activity: Not on file Stress: Not on file Social Connections: Not on file Intimate Partner Violence: Not on file Housing Stability: Not on file REVIEW OF SYSTEMS Review of Systems Constitutional: Negative for fever. HENT: Negative for sore throat. Eyes: Negative for blurred vision. Cardiovascular: Negative for chest pain and palpitations. Gastrointestinal: Negative for vomiting. Genitourinary: Negative for dysuria. Musculoskeletal: Negative for back pain. Skin: Negative for rash. Neurological: Negative for headaches. Psychiatric/Behavioral: Positive for hallucinations, substance abuse and suicidal ideas. PHYSICAL EXAM VITAL SIGNS: BP 122/67 Pulse 84 Temp 98.4 F (36.9 C) (Oral) Resp 15 SpO2 98% Smoking Status Current Every Day Smoker Physical Exam Vitals and nursing note reviewed. Constitutional: Appearance: He is normal weight. HENT: Head: Normocephalic and atraumatic. Mouth/Throat: Mouth: Mucous membranes are moist. Pharynx: Oropharynx is clear. Eyes: Extraocular Movements: Extraocular movements intact. Pupils: Pupils are equal, round, and reactive to light. Cardiovascular: Rate and Rhythm: Normal rate and regular rhythm. Pulses: Normal pulses. Pulmonary: Effort: Pulmonary effort is normal. Skin: General: Skin is warm and dry. Capillary Refill: Capillary refill takes less than 2 seconds. Neurological: Mental Status: He is alert and oriented to person, place, and time. Psychiatric: Comments: Responding to internal stimuli SI Agitated Labile ED COURSE & MEDICAL DECISION MAKING ddx includes: suicidal ideation, homicidal ideation, psychosis, drug ingestion, drug intoxication, alcohol intoxication, alcohol withdraw I reviewed the patients medical records and noted there allergies, past medical history, and previous visits. The reviewed showed prior admissions for similar presentations. Most recently here in April 2021. I reviewed the nursing notes. Patient was reporting hallucinations and was elevated/agitated ultimately requiring emergency PRN medications (droperidol and versed IM). I do have some concern for alcohol withdraw complicating his presentation but believe the majority of his presentation today is psychiatric. Plan to put on CIWA precautions. I have reviewed the labs and imaging for the visit and noted the abnormal results. Plan: Labs - EtOH level, APAP, chemistry, [employer] - Droperidol + Versed; CIWA precautions Consults - psych Imaging - None Dispo: Pending psych recommendations, likely admit Impression - SI with attempt, hallucinations ED Course as of 08/20/21 1458 Wed Aug 20, 2021 1339 Hx of Bipolar 1, alcohol abuse. Reporting command auditory hallucinations. Agitated and labile. Asking staff for knives. Update: Patient was placed on CIWA precautions and found to have level of 25 on repeat examinations. Given his history of alcohol withdrawal complicated by seizures, he has high risk. Plan to start him on a phenobarbital taper and admit to PCU for further evaluation management. Patient will still need psychiatric consultation for evaluation of his suicidal ideation. Flor Carrillo DO Resident 08/20/21 1640 [facility] Work Phone: [phone]) 393-722807-13-2022 Emergency department Note* Elmer More RN - 08/20/2021 1:36 PM EDT Pt arrives crying and elevated. Pt changing into gown with no issues. [facility]07-13-2022 Emergency department Note* Jennifer Schneider RN - 08/20/2021 1:18 PM EDT Bed: E065 Expected date: 08/20/21 Expected time: 1:17 PM Means of arrival: Comments: Mckinley triage [facility]07-13-2022 Emergency department Note* Jennifer Schneider RN - 08/20/2021 1:10 PM EDT Pt arrives by medic 25 at [facility] [place] for suicidal attempt. Pt has superficialy lacerations to the left arm. Pt states, I just wanted to go see my dad. Can you make this shit stop in my head? Pt responding to internal stimuli. Pt also reports his rectum stings and bear. [facility]03-24-2022 Hospital course Narrative* Rosario Sanches MD - 05/01/2021 10:51 AM EDT Discharge Summary Name: Mckinley Roman Age: 36 y.o. Birthday: 1985 Admit Date: 04/25/2021 12:09 AM Discharge Date: 05/01/2021 Discharge Time: 10:30 am Discharge Unit: NP3 Admission Information Admitting Physician: Rosario Sanches MD Discharge Information Discharge Physician: Rosario Sanches MD Problem List Active Hospital Problems Diagnosis Depression with suicidal ideation Alcohol dependence Resolved Hospital Problems No resolved problems to display. Brief Summary of Hospital Course for Discharge Summary: Discharge Dx: Depression Reason for Admission: Mckinley Roman is a 36 y.o. M with a past hx of MDD vs bipolar disorder 2, EtOH UD c/b withdrawal seizure, stimulant UD who arrived to [facility] ED via [facility] on a pink slip for stating he wanted a knife to cut his throat at a restaurant in the setting of EtOH intoxication and several months of medication noncompliance. In the ED, he attempted to elope several times, his speech was mostly meaningless during triage, he reported auditory and tactile hallucinations, and required emergency PRN medications and seclusion to ensure staff and pt safety. Once sober, he was evaluated psychiatrically; reported that he was blacked out when brought in and recanted SI, he reported depression recently and was in EtOH withdrawal. Hospital Course: The pt was admitted to [place] [address] and evaluated by members of an interdisciplinary team. On admission, patient was started on Venlafaxine and monitored for alcohol withdrawal on the CIWA protocol. Initially the patient was isolated to self but gradually began socializing more. He expressed some insight into his EtOH use and his desire to seek treatment again. On Day 3 of admission, he was eager to leave but was amenable to staying per the team's recommendation. Venlafaxine dose was increased and the patient responded well. There were no concerns for alcohol withdrawal and CIWA protocol was discontinued. Insomnia was managed with trazodone and improved by discharge. On Day 5 of admission, patient demonstrated further insight into the relationship between his EtOH use and his mental health and was eager to get connected with a treatment program. Denied SI throughout hospital stay. Over the course of hospitalization, he reported improvement in depressive symptoms and SI and denied imminent threat of lethality. He maintained appropriate social boundaries without signs of aggression or agitation on the unit. Zero times over the course of admission, pt became agitated/aggressive, creating an unsafe situation for staff, himself, peers, or a combination of those requiring seclusion/restraint with use of emergency PRN medications. He attended group therapy sessions and demonstrated improvement in coping skills. He was able to advocate for his needs on the unit, ate meals, and performed basic activities of self care. He was compliant with all medications and treatment modalities. On the day of discharge, he was future oriented, demonstrating behaviors consistent with self preservation, and tending to his own needs. He denied ideation, intent, or plan to harm others or self and participated in safety planning while hospitalized. Outpatient care plan has been established and he reports planning to follow up with outpatient appointments. Objectively, the patient did not appear decompensated in terms of ora, depression, anxiety, or psychosis on the day of discharge. He was instructed to return to the emergency department if he perceives to be in crisis at any point in the future. 1. Legal status: [place] slip 04/25; signed-in voluntarily on 04/28 2. Behavior/symptoms addressed included the following: Depression with SI 3. The patient's treatment course and major interventions, including medications, included the followin/18: restart venlafaxine 37.5 mg daily 04/26: increase venlafaxine to 75 mg daily, add trazodone 50 mg for insomnia 04/28: Start naltrexone 50 mg daily, increase trazodone 100 mg at bedtime 04/30: Increase trazodone to 150 mg at bedtime 05/01: Vivitrol injection The patient tolerated the medications. 4. Medical concerns: #rib fracture - pain management ok so far with usual PRNs #hx of TBI #vertigo - neurology recs appreciated: likely mild BPPV, no intervention needed #allergies, environmental - loratadine 10 mg daily 5. For outpt provider: Please continue to evaluate for clinically significant changes in mood and thought. Continue to screen for suicidal and homicidal ideation. Continue to optimize psychotropic medication regimen as needed and monitor medication tolerance and worsening side-effects. Encourage psychotherapy and abstinence from substances. Continue medications and discharge plan/instructions. Follow-up with appropriate coordination of care, including follow-up appointments and referrals for psychotherapy. 6. Discharge Medications: - folic acid - Thiamine - loratadine - multivitamin with minerals - trazodone - venlafaxine With the initial evaluation his primary complaints and symptoms were reviewed and a treatment plan was developed. The patient's nicotine use disorder was addressed with education as well as nicotine replacement treatment. The patient accepted FDA-approved tobacco cessation medication prescription(s) or referral to nicotine cessation program. The patient demonstrated stabilization in psychiatric symptoms over the course of the hospitalization. The patient was medically and psychiatrically stable at the time of discharge. The patient has had the opportunity to participate in the treatment milieu, including individual and group meetings, both supportive and educational. The patient's precautionary status, safety, and medical and psychiatric stability were re-evaluated daily by the treatment team. During hospitalization, Mr. Roman was no longer found to be actively displaying features that wouldwarrant ongoing hospitalization; hence, discharge planning was discussed. The multidisciplinary treatment team provided the following education and support during the hospital stay: Patient educated regarding risks and benefits of medications and how to take medications following discharge. Information was also provided about compliance, safety, continuing treatment in alternative setting, and to go to nearest emergency department in the event of emergence of psychiatric symptoms, such as suicidality or homicidality or psychosis or worsening symptoms. On the day of discharge, patient was future oriented, demonstrating behaviors consistent with self preservation, and tending to own needs from a mental health perspective. Patient denied ideation, intent, or plan to harm others or self. Patient participated in safety planning while hospitalized. Outpatient care plan has been established and patient endorsed a willingness to comply with outpatientmental health care appointments. The dosages of discharge medications can be found in the electronic discharge instructions. Psychiatric discharge timeout checklist: _x__ We have addressed acutely modifiable barriers to a safe discharge. _x__ The Treatment Team is aware of the patient's post discharge housing or substitute. _x__ Sufficient collateral information with regards to the patient's living arrangements, recent behavior and safety was obtained or attempted to be obtained during this hospitalization and the patient's available primary supports were included in discharge planning and education at a time proximate to the patient's discharge. _x__ We have either made arrangements for appropriate follow-up care with a mental health professional as clinically indicated, or the patient has agreed to accept responsibility to arrange her own follow-up. _x__ We have developed and reviewed with the patient a specific individualized discharge safety plan. _x__ All core members of the treatment team have been given the ability to express concerns regarding the safety or appropriateness of discharge. _x__ All core members of the treatment team have reviewed the goals of hospitalization and treatment plan and agree that the patient can be discharged safely. The patient was provided with suicide prevention, safe medication practices, and additional information about community resources [facility] (please see AVS). The patient's examination on the date of discharge was as follows: Musculoskeletal: gait normal, station is within normal limits; tremor absent Constitutional: well-appearing; appropriate hygiene; no acute distress Attention/concentration: alert, little distractibility and capable of maintaining prolonged focus, appropriate eye contact Orientation: oriented to self, location, date and situation Mood: positive Affect: congruent and calm; full-range; appropriate emotional reactivity Motor Activity: normokinetic and neither restless nor sedated Speech: fluent Palestinian, average rate and rhythm, appropriate volume, normal prosody Thought Process: linear, logical and goal-oriented Associations: intact Suicidal Ideation: denied by the patient Homicidal Ideation: denied by the patient Delusions: none evident Hallucination: denies hearing voices, denies seeing visions and not apparently responding to internal stimuli Insight/Judgment: fair insight, fair judgment Memory: remote, recent, working memory all appear intact Language: appropriate for the patient's level of education Fund of knowledge: average for the patient's level of education Cognition: intact, no indication of cognitive disorder Total time spent was 45 minutes, including final examination of the patient, discussion of the hospital stay, instructions for continuing care to all relevant caregivers, and preparation of dischargerecords, prescriptions, and referral forms. Brief Summary of Consults for Discharge Summary: Brief Summary of Procedures and Imaging for Discharge Summary: Summary of last selected lab results and date obtained: Lab Results Component Value Date WBC 6.96 04/25/2021 HGB 15.8 04/25/2021 HCT 45.1 04/25/2021 PLATELET 250 04/25/2021 MCV 84.9 04/25/2021 Lab Results Component Value Date SODIUM 143 04/25/2021 POTASSIUM 4.3 04/25/2021 CHLORIDE 110 (H) 04/25/2021 CO2 27 04/25/2021 BUN 9 04/25/2021 CREATSERUM 1.20 04/25/2021 GLUCOSE 99 04/25/2021 Lab Results Component Value Date ALT 58 (H) 04/25/2021 AST 23 04/25/2021 ALKPHOS 119 04/25/2021 BILITOTAL 0.3 04/25/2021 BILIDIRECT <0.1 04/25/2021 Brief Summary of Labs for Discharge Summary: No discharge procedures on file. Current Outpatient Meds: Medication List for when you go home START taking these medications folic acid 1 MG TABS Take 1 tablet by mouth daily. Commonly known as: FOLVITE For diagnoses: Uncomplicated alcohol dependence loratadine 10 MG TABS Take 1 tablet by mouth daily. Commonly known as: CLARITIN For diagnoses: History of environmental allergies Therapeutic-M/Lutein TABS Take 1 tablet by mouth daily. For diagnoses: Uncomplicated alcohol dependence thiamine 100 MG TABS Take 1 tablet by mouth daily. For diagnoses: Uncomplicated alcohol dependence trazodone 150 MG TABS Take 1 tablet by mouth at bedtime. Commonly known as: DESYREL For diagnoses: Depression with suicidal ideation, Other insomnia CHANGE how you take these medications venlafaxine 75 MG cap XR capsule XR Take 1 capsule by mouth daily with breakfast. Commonly known as: EFFEXOR-XR For diagnoses: Depression with suicidal ideation What changed: The strength you have reported taking of this medication has changed The quantity you have reported taking of this medication has changed How often you have reported taking this medication has changed Follow-up: [address] [phone] Follow up on 05/27/2021 You are scheduled to see Amparo Guzman for an intake assessment on May 27 at 8:00am at [address] [place] [address]. It is in person. Call if you need to push this back a few days. IN the meantime [facility] will call you and follow up with your med mgmt until you get appt with [facility]. [facility] [address] [facility] [phone] Follow up on 05/01/2021 You will be cabbed direclty to [facility] ( [address]) and then to [facility] ( [address]) intake apptointment at 1100am with Virgil. You will stay at program direclty after intake. You can not leave program at all for 30 days. You will be sent with your medications. Upcoming Appointments (up to five)-Some appointments for Medical Center outpatient clinics or diagnostic testing locations are not displayed below Provider Department Dept Phone 05/07/2021 4:00 PM Nathalie Godoy [facility] Arrive at: THIS IS A VIDEO VISIT, DO NOT GO TO THE CLINIC. [phone] documented [facility] Miscellaneous Notes* Nursing Notes - Prisca Bryan RN - 05/01/2021 10:50 AM EDT Pt discharged to home via a cab. Reviewed AVS, after care, safety plans, medications and recommendations. Medications obtained from [facility] pharmacy for pt to take with, verbalized understanding. Pt acknowledged receipt of all belongings, denies psychiatry symptoms and is happy about discharge * Plan of Care - Prisca Bryan RN - 05/01/2021 10:33 AM EDT Problem: Patient Care Overview Goal: Plan of Care Review Outcome: Ongoing Goal: Individualization & Mutuality Outcome: Ongoing Goal: Discharge Needs Assessment Outcome: Ongoing * Nursing Notes - Prisca Bryan RN - 05/01/2021 8:45 AM EDT Nursing Note Per Tour of Duty Patient Daily Goal(s): refer to care plan goal(s) Psychiatric Assessment Reported and Observed signs and symptoms: Pt observed in the dinning room having breakfast while talking to peers. Alert, calm and am medication compliant. Denied all psyche issues including pain, anxiety, depression. HI,SI,AV,AH. Verbalized having a BM yesterday, denied being constipated. Pt awareof coming to staff with needs, safety in place. Non-pharmacological interventions and effectiveness: provided emotional support, reviewed coping strategies, reinforced safety plan, provided psychoeducation, offered to call support, encouraged relaxation, encouraged exercise and offered journaling Medications Pharmacological PRNs indications and effectiveness: none requested or required Medication adherence: yes Psychotropic medication side effects: none reported or observed Functional Assessment - Activities of Daily Living Self-care: showered and brushed teeth Socialization (group, peer interactions): appropriately interacted with peers in milieu Nutrition and elimination interventions and effectiveness: offered frequent meals/snacks , encouraged fluid intake, encouraged exercise and educated on healthy food choices and mindful eating Last Bowel Movement: 04/30/21 Mobility: up for meals and active in milieu Sleep Number of hours this shift: Day Shift . Non-pharmacological interventions and effectiveness: mindfulness , progressive muscle relaxation and guided imagery Additional Information Pt discharging today, very excited. * Nursing Notes - Felipa Abernathy RN - 05/01/2021 6:24 AM EDT [id number] Pt appears to have slept for 7 Hours continues to sleep,safety checks maintained,will continue to monitor. * Plan of Care - Felipa Abernathy RN - 05/01/2021 1:15 AM EDT Problem: Overarching Goals (Adult) Goal: Adheres to Safety Considerations for Self and Others Outcome: Not Met This Shift Problem: Overarching Goals (Adult) Goal: Optimized Coping Skills in Response to Life Stressors Outcome: Not Met This Shift * Nursing Notes - Porfirio Noriega RN - 04/30/2021 6:40 PM EDT Nursing Note Per Tour of Duty: [id number] Patient Daily Goal(s): refer to care plan goal(s) Psychiatric Assessment Reported and Observed signs and symptoms: patient calm, cooperative, and goal oriented. He states that he's having some positive excitement regarding discharge tomorrow and maintaining his sobriety. He denied auditory and visual hallucinations, SI and HI. No feelings of depression, anxiety, or physical concerns endorsed this shift. Patient was encouraged to seek staff with any needs and verbally agreed to do so. Non-pharmacological interventions and effectiveness: provided emotional support, encouraged relaxation, facilitated therapeutic use of tablet and encouraged verbalization of feelings/concerns Medications Pharmacological PRNs indications and effectiveness: atarax for anxiety effective and melatoinin forsleep, benefit pending Medication adherence: yes Psychotropic medication side effects: none reported or observed Functional Assessment - Activities of Daily Living Self-care: patient dressed appropriately and well-kept on unit Socialization (group, peer interactions): appropriately interacted with peers in milieu Nutrition and elimination interventions and effectiveness: offered frequent meals/snacks Last Bowel Movement: 04/30/21 Mobility: up for meals and active in milieu Non-pharmacological interventions and effectiveness: avoided naps and bedtime routine Additional Information n/a * Plan of Care - Porfirio Noriega RN - 04/30/2021 6:40 PM EDT Problem: Patient Care Overview Goal: Plan of Care Review Outcome: Met This Shift Problem: Overarching Goals (Adult) Goal: Develops/Participates in Therapeutic [place] to Support Successful Transition Outcome: Met This Shift Problem: Patient Care Overview Goal: Individualization & Mutuality Outcome: Ongoing * Plan of Care - Zoe Ferguson OT - 04/30/2021 4:27 PM EDT Problem: OT [place] Goals Goal: COPING SKILLS - Occupational performance Description: Patient will identify and independently implement 2 new coping strategies to symptoms management and promote mental health and wellness in order to optimize occupational performance. Outcome: Ongoing Goal: RELAPSE PREVENTION - Complete Activities Description: Patient will complete relapse prevention activities with independence to deter substance use and promote sobriety upon discharge. Outcome: Ongoing Goal: MEDICATION MANAGEMENT - Benefits of compliance Description: Patient will state 2 benefits of medication compliance with independence to optimize symptom management. Outcome: Ongoing * Group Note - LEODAN Flores - 04/30/2021 3:25 PM EDT CORE Programming Group Therapy Progress Note Group Topic: Celebrate Success Date: 04/30/2021 Start Time: 1500 End Time: 1510 Total Time: 10 min of group time Telephone Operators Supervisor: LEODAN Flores Department: [facility] Patients were asked to participate in a brief wrap up group at the end of day programming. This group focused on debriefing the groups attended and evaluating progress. Patients were encouraged to identify if they attended scheduled groups. Patients were encouraged to share if they met their goal from Greet the Day (9 AM/10 AM group). Patients were asked to scale their successes of the day on a 10 scale. Patients who met their goals were rewarded at the end of group for their goal successes. Patient was present and an active participant in the group. Patient identified:[x] Meeting; [] Not meeting goal set for today. Patient identified feeling their progress was a 10 on a 10 scale. Overall patient appeared satisfied regarding progress made in programming and in meeting treatment goals related to discharge. LEODAN Flores 04/30/2021 * Group Note - LEODAN Flores - 04/30/2021 3:19 PM EDT CORE Programming Group Therapy Progress Note Group Topic: SHELLY Colorsouleymane - Dialectical Behavioral Therapy Mindfulness Date: 04/30/2021 Start Time: 1400 End Time: 1445 Total Time: 45 min of group time Telephone Operators Supervisor: LEODAN Flores Department: [facility] Group began with a check in. Group participants were given art supplies and encouraged to work mindfully on an art activity. Participants were encouraged to engage in positive social interaction and nonjudgmental self-talk. Pt was an active and engaged participant in group. Worked mindfully on art activity and interacted positively with peers. Met group expectations. LEODAN Flores 04/30/2021 * Group Note - LEODAN Flores - 04/30/2021 12:34 PM EDT CORE Programming Group Therapy Progress Note Group Topic: BH Self Sooth with 5 Senses - Dialectical Behavioral Therapy Distress Tolerance Date: 04/30/2021 Start Time: 1000 End Time: 1040 Total Time: 40 min of group time Telephone Operators Supervisor: LEODAN Flores Department: [facility] Patients were introduced to distress tolerance and the importance of using the five senses to self-soothe when feeling distressed. Patients were asked to check off from a list of different coping skills using the five senses and what they can add to make the list their own. Patients discussed the importance of having a coping skills list for distress tolerance. Pt was engaged and participatory throughout group. Shared approprietly in group and identified wanting to grow better coping strategies. Expressed motivation towards treatment outside of hospital. Identified self-soothing techniques. Met group expectations. LEODAN Flores 04/30/2021 * Group Note - LEODAN Flores - 04/30/2021 12:15 PM EDT CORE Programming Group Therapy Progress Note Group Topic: BH Greet the Day Date: 04/30/2021 Start Time: 0900 End Time: 924 Total Time: 25 min of group time Telephone Operators Supervisor: LEODAN Flores Department: [facility] Group began with a mindfulness activity that focused on energy and engagement. Patients were asked to participate in morning activity. After the activity was completed patients were asked to set personal goals for the day related to their treatment in collaboration with their staff. They were askedto sign up for groups relevant to their treatment goals. Patients were encouraged throughout the group to be active participants in goal setting related to their individualized treatment plan. Patient was an active participant throughout the group. The patient set the following goal for the day: [facility], be active, participate, learn something new . Patient appeared motivated about working on treatment goals and participating in CORE programming throughout the day. Patient overall worked well with the treatment team present and met group objectives successfully. LEODAN Flores 04/30/2021 * Group Note - Lucia Noonan RN - 04/30/2021 12:05 PM EDT CORE Programming Group Therapy Progress Note Group Topic: Music Therapy Date: 04/30/2021 Start Time: 1100 End Time: 1145 Total Time: 45 min of group time Telephone Operators Supervisor: Lucia Noonan RN Department: [facility] Group began with a check in. Group members were asked to identify one good thing for the day and one eh thing for the day. Group facilitators reviewed today s theme: Distress Tolerance and used the example of listening to music as a means to cope when feeling overwhelmed and the benefits of music. Telephone Operators Supervisor asked group members to identify a song to share with others that will typically change their mood from negative to positive and then explain how that song impacts their mood. Throughout the group patients were encouraged to be mindful listeners and be open to each other s songs non-judgmentally and give positive support and feedback to their peers. Wen Walter RN 04/30/2021 * Nursing Notes - Ramona Srivastava RN - 04/30/2021 11:23 AM EDT Nursing Note Per Tour of Duty Patient Daily Goal(s): refer to care plan goal(s) Psychiatric Assessment Reported and Observed signs and symptoms: Pt cooperative with VS and medications, denied pain, denied SI/HI, denied AH/VH. Pt is pleasant, good insight into alcohol addiction, positive outlook, social in milieu, eats meals, good hygiene, no behavior issues. Non-pharmacological interventions and effectiveness: provided emotional support Medications Pharmacological PRNs indications and effectiveness: none requested or required Medication adherence: yes Psychotropic medication side effects: none reported or observed Functional Assessment - Activities of Daily Living Self-care: Dressed Socialization (group, peer interactions): appropriately interacted with peers in milieu Nutrition and elimination interventions and effectiveness: offered frequent meals/snacks and encouraged fluid intake Last Bowel Movement: 04/29/21 Mobility: active in milieu Sleep Number of hours this shift: Day Shift 0 Non-pharmacological interventions and effectiveness: None Additional Information Pt is not on any precautions, Q15 min checks. * Plan of Care - Ramona Srivastava RN - 04/30/2021 11:22 AM EDT Problem: Patient Care Overview Goal: Plan of Care Review Outcome: Ongoing Goal: Individualization & Mutuality Outcome: Ongoing Goal: Discharge Needs Assessment Outcome: Ongoing Goal: Interdisciplinary Rounds/Family Conf Outcome: Ongoing Problem: Patient Care Overview Goal: Plan of Care Review Outcome: Ongoing Goal: Individualization & Mutuality Outcome: Ongoing Goal: Discharge Needs Assessment Outcome: Ongoing Goal: Interdisciplinary Rounds/Family Conf Outcome: Ongoing Problem: Overarching Goals (Adult) Goal: Adheres to Safety Considerations for Self and Others Outcome: Ongoing Goal: Optimized Coping Skills in Response to Life Stressors Outcome: Ongoing Goal: Develops/Participates in Therapeutic [place] to Support Successful Transition Outcome: Ongoing * Medical Student - Checo Ruiz - 04/30/2021 7:20 AM EDT PROGRESS NOTE/TREATMENT REVIEW 04/30/2021 TREATMENT TEAM Reviewed by Treatment Team, following member present: nurse, rn social work, faculty physician, medical student. Subjective/Interval History/ROS Mckinley Roman is a 36 y.o. M with a past hx of MDD vs bipolar disorder 2, EtOH UD c/b withdrawal seizure, stimulant UD who arrived to [facility] ED via [facility] on a pink slip for stating he wanted a knife to cut his throat at a restaurant in the setting of EtOH intoxication and several months of medication noncompliance. In the ED, he attempted to elope several times, his speech was mostly meaningless during triage, he reported auditory and tactile hallucinations, and required emergency PRN medications and seclusion to ensure staff and pt safety. Once sober, he was evaluated psychiatrically; reported that he was blacked out when brought in and recanted SI, he reported depression recently and was in EtOH withdrawal. Interval History: VS: VSS Labs/Imaging: reviewed, no new labs or imaging Sleep: 7 hours per chart Medications: Compliant PRNs: melatonin, eye drops; no psychiatric PRNs required Behavior: No acute events; attended multiple groups and socialized appropriately Subjective: On interview, the patient engages well with the interview team and is willing to meet with the team. Patient says he is doing good. Says he slept about 6 hours and that it was restful, but still notenough. Patient spent time yesterday calling different treatment centers and has settled on the [facility] - he will have an intake call today. Feels that Effexor is going well. Denies SI, HI, AVH. Somatically, patient says his body is feeling good but does endorse some intermittent, mild lightheadedness. Denies other symptoms or side effects today. Review of Systems: Psychiatric: Anxiety: none evident Irritability: none evident Constitutional: No recent change in weight or fever Musculoskeletal: No back, neck, muscle, or joint pain Respiratory: No cough or shortness of breath Cardiovascular: No chest pain, palpitations, or leg swelling Gastrointestinal: No abdominal pain, nausea vomiting, or diarrhea Genitourinary: No pain on urination Neurologic: No seizures, or headaches, intermittent lightheadedness Eyes: No change in vision HENT: No congestion, hearing problem, tinnitus, dysphagia, or sore throat Skin: No rash or wound 24 HOUR LAB RESULTS No results found for this or any previous visit (from the past 24 hour(s)). MEDICATIONS Scheduled: folic acid (FOLVITE) tablet 1 mg, 1 mg, Daily loratadine (CLARITIN) tablet 10 mg, 10 mg, Daily multivitamin w/ minerals (THERAPEUTIC-M) tablet 1 tablet, 1 tablet, Daily naltrexone (DEPADE) tablet 50 mg, 50 mg, Daily [START ON 05/01/2021] naltrexone (VIVITROL) IM injection 380 mg, 380 mg, Once nicotine (NICODERM CQ) 7 MG/24HR patch 1 patch, 1 patch, Q24H thiamine tablet 100 mg, 100 mg, Daily traZODone (DESYREL) tablet 100 mg, 100 mg, QHS venlafaxine (EFFEXOR-XR) capsule XR 75 mg, 75 mg, Every BKF PRN: alum/mag hydrox.-simethicone, 30 mL, Q6H PRN benztropine, 1 mg, Q6H PRN Or benztropine mesylate, 1 mg, Q6H PRN haloperidol lactate, 5 mg, Q4H PRN And LORazepam, 2 mg, Q4H PRN And diphenhydrAMINE, 50 mg, Q4H PRN haloperidol, 5 mg, Q4H PRN And LORazepam, 2 mg, Q4H PRN And diphenhydrAMINE, 50 mg, Q4H PRN hydrOXYzine HCl, 25 mg, Q6H PRN ibuprofen, 400 mg, Q6H PRN melatonin, 3 mg, QHS PRN nicotine, 4 mg, Q2H PRN polyethylene glycol, 17 g, Daily PRN Polyvinyl Alcohol-Povidone PF, 2 drop, PRN PHYSICAL AND MENTAL STATUS EXAM Blood pressure 135/74, pulse 66, temperature 98 F (36.7 C), temperature source Infrared, resp. rate16, height 1.803 m (5' 11 ), weight 104.3 kg (230 lb), SpO2 97 %. Musculoskeletal: gait normal, station is within normal limits; tremor absent Constitutional: well-appearing; appropriate hygiene; no acute distress Attention/concentration: alert, little distractibility and capable of maintaining prolonged focus, appropriate eye contact Orientation: oriented to self, location, date and situation Mood: good Affect: congruent and calm; full-range; appropriate emotional reactivity Motor Activity: normokinetic and neither restless nor sedated Speech: fluent Palestinian, average rate and rhythm, appropriate volume, normal prosody Thought Process: linear, logical and goal-oriented Associations: intact Suicidal Ideation: denied by the patient Homicidal Ideation: denied by the patient Delusions: none evident Hallucination: denies hearing voices, denies seeing visions and not apparently responding to internal stimuli Insight/Judgment: fair insight, fair judgment Memory: remote, recent, working memory all appear intact Language: appropriate for the patient's level of education Fund of knowledge: average for the patient's level of education Cognition: intact, no indication of cognitive disorder DIAGNOSTIC IMPRESSION Mckinley Roman is a 36 y.o. male with a history of MDD vs Bipolar II who is admitted to [facility] with a diagnosis of Depression with suicidal ideation. Since admission, the patient has isolated to self but has been able to get his needs met. He has expressed some insight into his EtOH use and wants to return to treatment. He has consistently denied SI and affect is euthymic. On Day 3 of admission, he is eager to leave but amenable to staying per the team's recommendation. On Day 5 of admission, patient continues to demonstrate insight into the relationship between his EtOH use and his mental health and is eager to get connected with a treatment program. No concern for symptoms of alcohol w ithdrawal at this time. Continues to deny SI and mood has stabilized. Bipolar disorder is less likely based on patient's history. Treatment Plan Update/Medical Decision Making The multidisciplinary treatment team continues to implement the following: Psychiatric status The patient s admission and precautionary status, medication administration, and safety since last assessment have been reviewed. Social work continuing to coordinate care and discharge planning and collateral information has been reviewed. Legal Status: Involuntary, pink slip dated 04/25/21 Signed-in voluntarily on 04/28 Continued Stay Criteria (select all that apply) Patient is progressing in treatment but has not yet acheived a base line and Clinical evidence thatless intensive treatment will result in unwanted regression Psychiatric decision making and treatment modifications with consent from patient/guardian are as follows: 04/25: restart venlafaxine 37.5 mg daily 04/26: increase venlafaxine to 75 mg daily, add trazodone 50 mg for insomnia 04/28: Start naltrexone 50 mg daily, increase trazodone 100 mg at bedtime 04/30: Increase trazodone to 150 mg at bedtime #Depression with suicidal ideation - Continue venlafaxine 75 mg daily - Planning for discharge tomorrow (05/01) - Intake call with [facility] today #Insomnia - Increase trazodone to 150 mg at bedtime Substance use disorder Nicotine replacement treatment was provided, in the form of patch and gum. #EtOH UD - Vivitrol injection tomorrow (05/01) - thiamine and folate - MVI w minerals Medical status Continue monitoring vital signs, current DVT prophylaxis, and diet Laboratory studies, radiology results, ECG, or other information reviewed and discussed with patient and plan to address comorbid medical conditions as follows: #rib fracture - pain management ok so far with usual PRNs #hx of TBI #vertigo - neurology recs appreciated: likely mild BPPV, no intervention needed #allergies, environmental - loratadine 10 mg daily Level of Observation, Suicide Risk Assessment and Safety Planning: The patient DOES NOT have medical equipment or a medical bed. Current risk of suicide is low as evidenced by recent progress and current mental status examination Safety plan will be completed prior to discharge. Current level of precautions: Standard/Trauma Precautions I re-certify that this inpatient psychiatric hospital admission is medically necessary for diagnostic study and/or active treatment, which could reasonably be expected to improve the patient's condition. Checo Ruiz, MS3 Associated attestation - Michael Degroot MD - 04/30/2021 2:23 PM EDT This medical student note was used for education purposes only. Please refer to resident/attending physician's notes from 04/30/21 for updates to history, assessment, and treatment plan. Michael Degroot MD PGY2, Pager [phone] [facility] Department of Psychiatry and Behavioral Health * Nursing Notes - Porfirio Noriega RN - 04/30/2021 6:12 AM EDT [id number]: Patient appears to have slept 7 hours overnight without incident or complaints. Safety rounds maintained per order. * Plan of Care - Porfirio Noriega RN - 04/30/2021 3:36 AM EDT Problem: Patient Care Overview Goal: Plan of Care Review Outcome: Met This Shift * Nursing Notes - Tiki Tierney RN - 04/29/2021 8:23 PM EDT Nursing Note Per Tour of Duty [id number] Patient Daily Goal(s): refer to care plan goal(s) Psychiatric Assessment Reported and Observed signs and symptoms: pt denies SI/HI/AVH, denies physical concerns or pain, ptcalm, cooperative and pleasant, endorsed they are planning [facility] and maintain sobriety and continue to work on their mental health. Non-pharmacological interventions and effectiveness: provided emotional support, reviewed coping strategies, provided psychoeducation, encouraged relaxation and facilitated therapeutic use of tablet Medications Pharmacological PRNs indications and effectiveness: none requested or required Medication adherence: yes Psychotropic medication side effects: none reported or observed Functional Assessment - Activities of Daily Living Self-care: did laundry Socialization (group, peer interactions): appropriately interacted with peers in milieu Nutrition and elimination interventions and effectiveness: offered frequent meals/snacks and encouraged fluid intake Last Bowel Movement: 04/29/21 Mobility: up for meals, active in milieu and demonstrated safe ambulation techniques Sleep Number of hours this shift: Evening Shift 0 hours Non-pharmacological interventions and effectiveness: bedtime routine Additional Information n/a * Group Note - LEODAN Flores - 04/29/2021 3:48 PM EDT CORE Programming Group Therapy Progress Note Group Topic: Celebrate Success Date: 04/29/2021 Start Time: 1505 End Time: 1515 Total Time: 10 min of group time Telephone Operators Supervisor: LEODAN Flores Department: Patient Mgmt [facility] [facility] Patients were asked to participate in a brief wrap up group at the end of day programming. This group focused on debriefing the groups attended and evaluating progress. Patients were encouraged to identify if they attended scheduled groups. Patients were encouraged to share if they met their goal from Greet the Day (9 AM/10 AM group). Patients were asked to scale their successes of the day on a 10 scale. Patients who met their goals were rewarded at the end of group for their goal successes. Patient was present and an active participant in the group. Patient identified feeling their progress was a 9 on a 10 scale. Overall patient appeared satisfied regarding progress made in programming and in meeting treatment goals related to discharge. LEODAN Flores 04/29/2021 * Group Note - LEODAN Flores - 04/29/2021 2:49 PM EDT CORE Programming Group Therapy Progress Note Group Topic: Dialectical Behavioral Therapy Interpersonal Effectiveness Date: 04/29/2021 Start Time: 1000 End Time: 1045 Total Time: 45 min of group time Telephone Operators Supervisor: LEODAN Flores Department: [facility] Group began with a check in and ice breaker. Telephone Operators Supervisor reviewed theme of the day - Interpersonal Effectiveness. Group focused on discussing communication styles and how to have effective communication . Group members practiced I messages and were encouraged to find ways to utilize these communication techniques outside of the hospital. Throughout the group patients were encouraged to give positive feedback and be supportive of others in the group. Pt was an active and engaged participant in group. Identified examples of communication styles and shared often in group discussion. Met with tx team during group and asked for a summary of what he missed after group hour. Met group expectations. LEODAN Flores 04/29/2021 * Group Note - LEODAN Flores - 04/29/2021 12:16 PM EDT CORE Programming Group Therapy Progress Note Group Topic: Greet the Day Date: 04/29/2021 Start Time: 0900 End Time: 924 Total Time: 25 min of group time Telephone Operators Supervisor: LEODAN Flores Department: [facility] Group began with a mindfulness activity that focused on energy and engagement. Patients were asked to participate in morning activity. After the activity was completed patients were asked to set personal goals for the day related to their treatment in collaboration with their staff. They were askedto sign up for groups relevant to their treatment goals. Patients were encouraged throughout the group to be active participants in goal setting related to their individualized treatment plan. Patient was an active participant throughout the group. The patient set the following goal for the day: enjoy blessings I'm receiving today, positive communication . Patient appeared motivated aboutworking on treatment goals and participating in CORE programming throughout the day. Patient overall worked well with the treatment team present and met group objectives successfully. LEODAN Flores 04/29/2021 * Nursing Notes - Sera Leal RN - 04/29/2021 12:12 PM EDT Nursing Note Per Tour of Duty Patient Daily Goal(s): Pt. goal is to practice mindfulness throughout the day . States he really enjoyed and resonated with the mindfulness gruop. Psychiatric Assessment Reported and Observed signs and symptoms: Denies SI/HI/AVH. Denies pain. States his mood is prettygood . Answers all assessment questions. Adheres to all medications. Speech is clear and concise. Thoughts appear linear. Participates in care. Reports having vertigo during activity such as exercisewhich he attributes to a previous TBI over 10 years ago. Notified provider and a Neuro consult was set up. Requested Claritan for seasonal allergies, which was ordered. Non-pharmacological interventions and effectiveness: provided emotional support, reviewed coping strategies and reinforced safety plan Medications Pharmacological PRNs indications and effectiveness: PRN Refresh eye drops given for seasonal allergies. Medication adherence: yes Psychotropic medication side effects: none reported or observed Functional Assessment - Activities of Daily Living Self-care: showered and brushed teeth Socialization (group, peer interactions): attended group and appropriately interacted with peers inmilieu Nutrition and elimination interventions and effectiveness: offered frequent meals/snacks and encouraged fluid intake Last Bowel Movement: 04/29/21 Mobility: up for meals and active in milieu Sleep Number of hours this shift: Day Shift No sleeping observed during this shift. Non-pharmacological interventions and effectiveness: mindfulness Additional Information * Plan of Care - Sera Leal RN - 04/29/2021 10:07 AM EDT Problem: Overarching Goals (Adult) Goal: Adheres to Safety Considerations for Self and Others Outcome: Met This Shift * Nursing Notes - Aiden Em RN - 04/29/2021 4:38 AM EDT Nursing Note Per Tour of Duty 1929 - 699 Patient Daily Goal(s): refer to care plan goal(s) Psychiatric Assessment Reported and Observed signs and symptoms: Patient seen in the milieu watching TV at the beginning of the shift. Pt denies SI, HI and AVH. No pain at this time. Compliant to medications. Safety and environmental checks maintained. Non-pharmacological interventions and effectiveness: provided emotional support, reviewed coping strategies and reinforced safety plan Medications Pharmacological PRNs indications and effectiveness: none requested or required Medication adherence: yes Psychotropic medication side effects: none reported or observed Functional Assessment - Activities of Daily Living Self-care: brushed teeth and cleaned room Socialization (group, peer interactions): appropriately interacted with peers in milieu Nutrition and elimination interventions and effectiveness: offered frequent meals/snacks , encouraged fluid intake and encouraged exercise Last Bowel Movement: 04/28/21 Mobility: up for meals and active in milieu Sleep Number of hours this shift: 7 hour Non-pharmacological interventions and effectiveness: mindfulness and bedtime routine Additional Information * Plan of Care - Aiden Em RN - 04/29/2021 4:37 AM EDT Problem: Patient Care Overview Goal: Plan of Care Review Outcome: Met This Shift * Group Note - LEODAN Flores - 04/28/2021 3:37 PM EDT CORE Programming Group Therapy Progress Note Group Topic: BH Celebrate Success Date: 04/28/2021 Start Time: 1500 End Time: 1510 Total Time: 10 min of group time Telephone Operators Supervisor: LEODAN Flores Department: Patient Mgmt [facility] Patients were asked to participate in a brief wrap up group at the end of day programming. This group focused on debriefing the groups attended and evaluating progress. Patients were encouraged to identify if they attended scheduled groups. Patients were encouraged to share if they met their goal from Greet the Day (9 AM/10 AM group). Patients were asked to scale their successes of the day on a 10 scale. Patients who met their goals were rewarded at the end of group for their goal successes. Patient was present and an active participant in the group. Patient identified feeling their progress was a 9 on a 10 scale. Overall patient appeared satisfied regarding progress made in programming and in meeting treatment goals related to discharge. LEODAN Flores 04/28/2021 * Group Note - LEODAN Flores - 04/28/2021 3:23 PM EDT CORE Programming Group Therapy Progress Note Group Topic: BH States of Mind - Dialectical Behavioral Therapy Mindfulness Date: 04/28/2021 Start Time: 1000 End Time: 1045 Total Time: 45 min of group time Telephone Operators Supervisor: LEODAN Flores Department: [facility] Group began with a check in and ice breaker. Participants then discussed Mindfulness and states of mind: emotion mind, reasonable mind, and meneses mind. Group participants practiced a grounding exercise engaging in the 5 senses then discussed meneses mind skill. Telephone Operators Supervisor encouraged peers to give positive feedback and support to others sharing throughout the group. Pt was an active participant in group. Engaged and focused throughout and shared in group discussion. Appeared motivated and willing throughout. Met group expectations. LEODAN Flores 04/28/2021 * Group Note - Andi Garzon - 04/28/2021 3:03 PM EDT CORE Programming Group Therapy Progress Note Group Topic: Guided Relaxation - Dialectical Behavioral Therapy Mindfulness Date: 04/28/2021 Start Time: 1405 End Time: 1425 Total Time: 20 min of group time Telephone Operators Supervisor: Andi Garzon Department: [facility] Group began with a check in and ice breaker. Group clay processing labourer reviewed with patients a handout defining mindfulness and why it is important. Telephone Operators Supervisor then engaged the group in a guided mediation online to experience being mindful and present in the moment while also focusing on the breath. After the meditation was complete we reviewed how and where to use today s skill outside of the hospital. Telephone Operators Supervisor encouraged peers to give positive feedback and support to others sharing throughout the group. [x] Patient was an active listener and able to meet objectives of the activity [ ] Patient struggled with being an active listener and did not meet objectives of the activity Andi Garzon 04/28/2021 * Plan of Care - Martha Marquez RN - 04/28/2021 12:25 PM EDT Nursing care of this patient assumed at 1100. F2F nursing report provided by JASVIR Alexander. Patient isin the dining room, watching tv and interacting with peers. He remains on moderate suicide precautions. Nursing Note Per Tour of Duty Patient Daily Goal(s): refer to care plan goal(s) Psychiatric Assessment Reported and Observed signs and symptoms: Patient is calm, cooperative, and friendly, affect congruent with mood. Grooming and hygiene good, eye contact and posture good, speech wnl for rate and volume. Mckinley denies suicidal and homicidal ideations as well as auditory or visual hallucinations. Hedenies pain. Non-pharmacological interventions and effectiveness: provided emotional support, provided distraction/activity, and encouraged exercise Medications Pharmacological PRNs indications and effectiveness: none requested or required Medication adherence: yes Psychotropic medication side effects: none reported or observed Functional Assessment - Activities of Daily Living Self-care: showered and brushed teeth Socialization (group, peer interactions): attended group and appropriately interacted with peers inmilieu Nutrition and elimination interventions and effectiveness: offered frequent meals/snacks , encouraged fluid intake, and educated on healthy food choices and mindful eating Last Bowel Movement: 04/28/21 Mobility: up for meals and active in milieu Sleep Number of hours this shift: Day Shift 0 Non-pharmacological interventions and effectiveness: reduction in caffeine intake, avoided naps, and bedtime routine Additional Information Problem: Patient Care Overview Goal: Plan of Care Review Outcome: Ongoing Goal: Individualization & Mutuality Outcome: Ongoing Goal: Discharge Needs Assessment Outcome: Ongoing Goal: Interdisciplinary Rounds/Family Conf Outcome: Ongoing * Nursing Notes - Benjamin Spears RN - 04/28/2021 10:41 AM EDT Nursing Note Per Tour of Duty Patient Daily Goal(s): refer to care plan goal(s) Psychiatric Assessment Reported and Observed signs and symptoms: Patient visible on the unit and social with select peers.Denies psychiatric symptoms and SI/ HI. Appears anxious, restless and slightly agitated. Non-pharmacological interventions and effectiveness: provided emotional support Medications Pharmacological PRNs indications and effectiveness: none requested or required Medication adherence: yes Psychotropic medication side effects: none reported or observed Functional Assessment - Activities of Daily Living Self-care: cleaned room Socialization (group, peer interactions): attended group and appropriately interacted with peers inmilieu Nutrition and elimination interventions and effectiveness: offered frequent meals/snacks and encouraged fluid intake Last Bowel Movement: 04/26/21 Mobility: up for meals and active in milieu Non-pharmacological interventions and effectiveness: mindfulness Additional Information Minimizes reason for admission. CIWA = 6 for anxiety and agitation. Anxious to meet with treatment team. Perseverating on discharge. Makes needs known. * Plan of Care - Benjamin Spears RN - 04/28/2021 10:40 AM EDT Problem: Overarching Goals (Adult) Goal: Adheres to Safety Considerations for Self and Others Outcome: Ongoing * Medical Student - Checo Ruiz - 04/28/2021 7:23 AM EDT PROGRESS NOTE/TREATMENT REVIEW 04/28/2021 TREATMENT TEAM Reviewed by Treatment Team, following member present: nurse, rn social work, faculty physician, medical student. Subjective/Interval History/ROS Mckinley Roman is a 36 y.o. M with a past hx of MDD vs bipolar disorder 2, EtOH UD c/b withdrawal seizure, stimulant UD who arrived to [facility] ED via [facility] on a pink slip for stating he wanted a knife to cut his throat at a restaurant in the setting of EtOH intoxication and several months of medication noncompliance. In the ED, he attempted to elope several times, his speech was mostly meaningless during triage, he reported auditory and tactile hallucinations, and required emergency PRN medications and seclusion to ensure staff and pt safety. Once sober, he was evaluated psychiatrically; reported that he was blacked out when brought in and recanted SI, he reported depression recently and was in EtOH withdrawal. Interval History: VS: Bradycardic (HR 53), otherwise VSS Labs/Imaging: reviewed, no new labs or imaging Sleep: 6 hours, 15 minutes per chart; good per patient Medications: Compliant besides nicotine patch PRNs: Miralax, simethicone, motrin for medical needs, hydroxyzine for psychiatric needs Behavior: No acute events Subjective: On interview, the patient engages well with the interview team and is willing to meet with the team. Patient says yesterday was pretty good. Says he spent his day reading, watching TV, playing cards, and socializing with others. He slept well and feels rested. Says trazodone has helped, but that his sleep could still improve. Appetite has improved. Denies somatic symptoms - constipation resolvedwith Miralax. Brain fog and anxiety have improved from yesterday. Denies symptoms of alcohol withdrawal. He feels that the Effexor is going well and denies side effects. Describes mood as positive but that he is ready to go. Patient denies alcohol cravings today. Discussed events leading to his hospitalization and mentionsagain that he never had any suicidal ideation while intoxicated. Explains that he left a meeting with his counselor at [facility] to go drink which led to his presentation. States that there is no excuse for me to ever drink or do drugs. Patient does mention that poor sleep is a stressor that often precipitates his depressive symptoms and subsequent alcohol use. Patient is eager to leave but is amendable to staying and voluntarily signed-in during the interview. Team encouraged him to call [facility] to inquire about returning to stay there after discharge. Denies SI / HI / AVH. Review of Systems: Psychiatric: Anxiety: some evident Irritability: some evident Constitutional: No recent change in weight or fever Musculoskeletal: No back, neck, muscle, or joint pain Respiratory: No cough or shortness of breath Cardiovascular: No chest pain, palpitations, or leg swelling Gastrointestinal: No abdominal pain, nausea vomiting, or diarrhea Genitourinary: No pain on urination Neurologic: No dizziness, seizures, or headaches Eyes: No change in vision HENT: No congestion, hearing problem, tinnitus, dysphagia, or sore throat Skin: No rash or wound 24 HOUR LAB RESULTS No results found for this or any previous visit (from the past 24 hour(s)). MEDICATIONS Scheduled: folic acid (FOLVITE) tablet 1 mg, 1 mg, Daily multivitamin w/ minerals (THERAPEUTIC-M) tablet 1 tablet, 1 tablet, Daily naltrexone (DEPADE) tablet 50 mg, 50 mg, Daily nicotine (NICODERM CQ) 7 MG/24HR patch 1 patch, 1 patch, Q24H thiamine tablet 100 mg, 100 mg, Daily traZODone (DESYREL) tablet 50 mg, 50 mg, QHS venlafaxine (EFFEXOR-XR) capsule XR 75 mg, 75 mg, Every BKF PRN: alum/mag hydrox.-simethicone, 30 mL, Q6H PRN benztropine, 1 mg, Q6H PRN Or benztropine mesylate, 1 mg, Q6H PRN haloperidol lactate, 5 mg, Q4H PRN And LORazepam, 2 mg, Q4H PRN And diphenhydrAMINE, 50 mg, Q4H PRN haloperidol, 5 mg, Q4H PRN And LORazepam, 2 mg, Q4H PRN And diphenhydrAMINE, 50 mg, Q4H PRN hydrOXYzine HCl, 25 mg, Q6H PRN ibuprofen, 400 mg, Q6H PRN LORazepam, 1 mg, Q30 MIN PRN Or LORazepam, 2 mg, Q30 MIN PRN LORazepam, 1-4 mg, Q1H PRN melatonin, 3 mg, QHS PRN nicotine, 4 mg, Q2H PRN polyethylene glycol, 17 g, Daily PRN Polyvinyl Alcohol-Povidone PF, 2 drop, PRN PHYSICAL AND MENTAL STATUS EXAM Blood pressure 111/67, pulse 56, temperature 98 F (36.7 C), temperature source Infrared, resp. rate16, height 1.803 m (5' 11 ), SpO2 97 %. Musculoskeletal: gait normal, station is within normal limits; tremor absent Constitutional: well-appearing; fair hygiene; no acute distress Attention/concentration: alert, little distractibility and capable of maintaining prolonged focus, appropriate eye contact Orientation: oriented to self, location, date and situation Mood: Positive Affect: congruent and calm; full-range; appropriate emotional reactivity Motor Activity: normokinetic and neither restless nor sedated Speech: fluent Palestinian, average rate and rhythm, appropriate volume, normal prosody Thought Process: linear, logical and goal-oriented Associations: intact Suicidal Ideation: denied by the patient Homicidal Ideation: denied by the patient Delusions: none evident Hallucination: denies hearing voices, denies seeing visions and not apparently responding to internal stimuli Insight/Judgment: fair insight, fair judgment Memory: remote, recent, working memory all appear intact Language: appropriate for the patient's level of education Fund of knowledge: average for the patient's level of education Cognition: intact, no indication of cognitive disorder DIAGNOSTIC IMPRESSION Mckinley Roman is a 36 y.o. male with a history of MDD vs Bipolar II who is admitted to [facility] with a diagnosis of Depression with suicidal ideation. Since admission, the patient has isolated to self but has been able to get his needs met. He has expressed some insight into his EtOH use and wants to return to treatment. On Day 3 of admission, he is eager to leave but amenable to staying per the team's recommendation. No concern for symptoms of alcohol withdrawal at this time. Continues to deny SI and mood has stabilized. Bipolar disorder is less likely based on patient's history. Treatment Plan Update/Medical Decision Making The multidisciplinary treatment team continues to implement the following: Psychiatric status The patient s admission and precautionary status, medication administration, and safety since last assessment have been reviewed. Social work continuing to coordinate care and discharge planning and collateral information has been reviewed. Legal Status: Involuntary, pink slip dated 04/25/21; signed-in voluntarily 04/28 Continued Stay Criteria (select all that apply) Patient is progressing in treatment but has not yet acheived a base line and Clinical evidence thatless intensive treatment will result in unwanted regression Psychiatric decision making and treatment modifications with consent from patient/guardian are as follows: 04/25: restart venlafaxine 37.5 mg daily 04/26: increase venlafaxine to 75 mg daily, add trazodone 50 mg for insomnia 04/28: Start naltrexone 50 mg daily; increase trazodone to 100 mg for insomnia #Depression with suicidal ideation - Venlafaxine 75 mg daily - Potential discharge (05/01) pending clinical course #Insomnia - Increase trazodone to 100 mg at bedtime Substance use disorder Nicotine replacement treatment was provided, in form of patch and gum Switch patch to morning to eliminate disruption at night #EtOH UD - Discontinue CIWA - thiamine and folate - MVI w minerals Medical status Continue monitoring vital signs, current DVT prophylaxis, and diet Laboratory studies, radiology results, ECG, or other information reviewed and discussed with patient and plan to address comorbid medical conditions as follows: #Rib fracture - pain management ok so far with usual PRNs Level of Observation, Suicide Risk Assessment and Safety Planning: The patient DOES NOT have medical equipment or a medical bed. Current risk of suicide is moderate as evidenced by recent progress and current mental status examination Safety plan will be completed prior to discharge. Current level of precautions: Moderate-risk Suicide (twice in 15 minutes) I re-certify that this inpatient psychiatric hospital admission is medically necessary for diagnostic study and/or active treatment, which could reasonably be expected to improve the patient's condition. Checo Ruiz, MS3 Associated attestation - Michael Degroot MD - 04/28/2021 4:27 PM EDT This medical student note was used for education purposes only. Please refer to resident/attending physician's notes from 04/28/21 for updates to history, assessment, and treatment plan. Michael Degroot MD PGY2, Pager [phone] [facility] Department of Psychiatry and Behavioral Health * Nursing Notes - Nadia Dalal RN - 04/28/2021 5:49 AM EDT [id number]: Patient appears to have slept for 6.15 hours overnight without incident. CIWA 0, VSS. Safety checks maintained per order. * Nursing Notes - Prisca Bryan RN - 04/27/2021 10:49 PM EDT HS medications administered with no problems including PRN simethicone for indigestion. Had prn darius lax earlier with positive effects. Pt still on CIWA's though has been scoring zero's through out the shift.Safety in place. * Nursing Notes - Prisca Bryan RN - 04/27/2021 5:44 PM EDT Pt came to this nurse complaining of feeling some back up though had a BM today. Darius lax administered or else no other physical discomfort or pain has been voiced out. Safety in place. * Therapy Note - BASIA Landa - 04/27/2021 12:48 PM EDT Recreation Therapy Evaluation General Stated Reason for Admission: I had a severe relapse with drinking, blacked out and do not rememberanything. I promise though I am not suicidal. Evaluation Type: Initial Time In: 1140 Time Out: 1200 Total Visit Time: 20 minutes Prior Hospitalization Review Leisure Interests: Active sports participation, Animals/pets, Cooking/baking, Games/cards, Jogging/running, Music, Outdoor activities, Reading, Recreational walking, Regular physical exercise, Shopping, Time with family/friends, TV/movies, Video games, Writing/journaling Degree of Recreation Participation: Decreased (Little isolation because I was at [facility]) Education: Completed High School, Some College (2 years of college) Work : Not currently working Typical Day: Was at [facility] for 3 days, go to the park, be active, AA meetings, but I haven'tbeen sleeping well Living Situation: I was at [facility] before I left to drink Transportation: security support analyst ([facility] had vans that took me places) Support System: [facility], Appearance: Appropriate Leisure Education Awareness of Community Resources: Yes Utilization of Community Resources: Community events, Entertainment, Library, Movie theaters, [place], Rec/Fitness center, Baptism/spiritual organization, Restaurants, Shopping centers, Support groups, Volunteering (AA, counseling, [facility]) Recreation Participation Is leisure time important?: Yes Are you satisfied with your current leisure lifestyle?: Other (Could be more stable and frequent) Preferred style of leisure interaction?: Family, Alone, Friends Activities you would like to learn: Travis diving, bungie jumping Barriers to Recreation Participation: Money, Transportation, Substance Use (Poor choices) Participation Assessment: appropriate Current Social Emotional Assessment Affect: appropriate Appropriate Eye Contact: Good Frustration Tolerance: Good Appropriate Social Interaction: Good Withdrawn: No Rate Your Self-Esteem: 7 Communication Status: No deficits noted What do you value?: (Relationship with God and my dad, What my mom taught me before she passed, getting one day) Patient's Identified Coping Strategies: Leisure interests, Meditation/relaxation, Substance use (drinking, lifting weights, walking outside, jog, sports, prayer, Bible reading, AA literature) Recreation Therapy Restrictions/Precautions Recreation Physical/Sensory Motor Limitations: None Recreation Therapy Goals Patient's Stated Goals for Hospitalization: get back to [facility], get remotivated. RT Goals/Interventions Recommended: develop interpersonal skills, develop positive coping skills, encourage development of self- control, engage in relapse prevention activities in order to reinforceimportance of sobriety, identify 3 - 5 new coping strategies to manage mental illness, identify 4 -5 leisure interests in order to improve engagement in meaningful activity Note: Patient was agreeable to complete the TR Assessment. Patient appeared congruent in affect. Patient was calm, pleasant, and appropriate during the assessment. Patient shared he was at [facility] for [facility] days, left to go drink, blacked out and does not remember anything but stated he wants to note he is not suicidal. Patient shared he wants to go back to [facility]. Patient stated he needs support so he can be more stable and get remotivated. Discussed TR roles and treatment goals. Patient declined any community resources needed at this time. I used a facemask and protective eye wear in today's patient interaction. I was assisted by no one during this visit BASIA Landa * Plan of Care - Prisca Bryan RN - 04/27/2021 10:59 AM EDT Problem: Patient Care Overview Goal: Plan of Care Review Outcome: Ongoing Goal: Individualization & Mutuality Outcome: Ongoing Goal: Discharge Needs Assessment Outcome: Ongoing * Nursing Notes - Prisca Bryan RN - 04/27/2021 8:40 AM EDT Nursing Note Per Tour of Duty Patient Daily Goal(s): refer to care plan goal(s) Psychiatric Assessment Reported and Observed signs and symptoms: Upon approach, pt was in the living room walking around. Alert, pleasant and am scheduled medication compliant. Denied SI,HI,AV,AH, but endorsed anxiety (8/10), depression and pain(8/10). PRN's see mar administered. Verbalized having a BM yesterday, denied being constipated. Will continue support, maintain for safety and monitoring. Non-pharmacological interventions and effectiveness: provided emotional support, reviewed coping strategies, reinforced safety plan, provided distraction/activity, offered quiet time alone , providedpsychoeducation and offered to call support Medications Pharmacological PRNs indications and effectiveness: see mar Medication adherence: yes Psychotropic medication side effects: none reported or observed Functional Assessment - Activities of Daily Living Self-care: none observed Socialization (group, peer interactions): appropriately interacted with peers in milieu Nutrition and elimination interventions and effectiveness: offered frequent meals/snacks , encouraged fluid intake, encouraged exercise and educated on healthy food choices and mindful eating Last Bowel Movement: 04/26/21 Mobility: up for meals and active in milieu Sleep Number of hours this shift: Day Shift . Non-pharmacological interventions and effectiveness: mindfulness , progressive muscle relaxation and guided imagery Additional Information Pt on CIWAs, scored a zero at the moment. * Nursing Notes - Felipa Abernathy RN - 04/27/2021 6:37 AM EDT [id number] Pt Nicoderm patch not given pt was sleeping, appears to have slept for 8 hours,safety checks maintained,will continue to monitor. * Plan of Care - Felipa Abernathy RN - 04/27/2021 1:22 AM EDT Problem: Overarching Goals (Adult) Goal: Optimized Coping Skills in Response to Life Stressors 04/27/2021 0122 by Felipa Abernathy RN Outcome: Not Met This Shift 04/26/2021 1947 by Felipa Abernathy RN Outcome: Ongoing * Plan of Care - Felipa Abernathy RN - 04/26/2021 7:47 PM EDT Problem: Overarching Goals (Adult) Goal: Adheres to Safety Considerations for Self and Others Outcome: Ongoing Problem: Overarching Goals (Adult) Goal: Optimized Coping Skills in Response to Life Stressors Outcome: Ongoing * Nursing Notes - Felipa Abernathy RN - 04/26/2021 5:14 PM EDT Nursing Note Per Tour of Duty [id number] Patient Daily Goal(s): refer to care plan goal(s) Psychiatric Assessment Reported and Observed signs and symptoms: Pt mostly isolates to room ,comes out for needs,noted pacing unit, requested and reeived Atarax for anxiety,denies SI/HI Non-pharmacological interventions and effectiveness: provided emotional support, reviewed coping strategies and reinforced safety plan Medications Pharmacological PRNs indications and effectiveness: none requested or required Medication adherence: yes Psychotropic medication side effects: none reported or observed Functional Assessment - Activities of Daily Living Socialization (group, peer interactions): isolated in room Nutrition and elimination interventions and effectiveness: offered frequent meals/snacks Last Bowel Movement: 04/24/21 Mobility: up for meals Non-pharmacological interventions and effectiveness: avoided naps * Nursing Notes - Ramona Srivastava RN - 04/26/2021 12:17 PM EDT Nursing Note Per Tour of Duty Patient Daily Goal(s): refer to care plan goal(s) Psychiatric Assessment Reported and Observed signs and symptoms: Pt cooperative with VS, labs, and medications, c/o pain in ribs on right side, pt reported ribs are fractured, pain with movement /10, denied SI/HI, denied AH/VH. Pt is pleasant, good hygiene, eats meals, disappointed in himself for leaving rehab and relapsing, is wanting to try again, mostly isolated to room. Non-pharmacological interventions and effectiveness: provided emotional support Medications Pharmacological PRNs indications and effectiveness: Atarax for anxiety, Ibuprofen for rib pain Medication adherence: yes Psychotropic medication side effects: none reported or observed Functional Assessment - Activities of Daily Living Self-care: brushed teeth Socialization (group, peer interactions): in milieu, keeps to self. Nutrition and elimination interventions and effectiveness: offered frequent meals/snacks and encouraged fluid intake Last Bowel Movement: 04/24/21 Mobility: active in milieu Sleep Number of hours this shift: Day Shift napped during shift Non-pharmacological interventions and effectiveness: None Additional Information Pt on moderate suicide and CIWA precautions, 2xQ15 min checks, CIWA - 2. * Plan of Care - Ramona Srivastava RN - 04/26/2021 12:17 PM EDT Problem: Patient Care Overview Goal: Plan of Care Review Outcome: Ongoing Goal: Individualization & Mutuality Outcome: Ongoing Goal: Discharge Needs Assessment Outcome: Ongoing Goal: Interdisciplinary Rounds/Family Conf Outcome: Ongoing Problem: Patient Care Overview Goal: Plan of Care Review Outcome: Ongoing Goal: Individualization & Mutuality Outcome: Ongoing Goal: Discharge Needs Assessment Outcome: Ongoing Goal: Interdisciplinary Rounds/Family Conf Outcome: Ongoing Problem: Overarching Goals (Adult) Goal: Adheres to Safety Considerations for Self and Others Outcome: Ongoing Goal: Optimized Coping Skills in Response to Life Stressors Outcome: Ongoing Goal: Develops/Participates in Therapeutic [place] to Support Successful Transition Outcome: Ongoing * Nursing Notes - Nita John RN - 04/26/2021 1:25 AM EDT Nursing Note Per Tour of Duty 22:20-0700 Patient Daily Goal(s): refer to care plan goal(s) Psychiatric Assessment Reported and Observed signs and symptoms: Patient arrived on unit at 22:20 pm on wheelchair. Guarded and restricted on approach. Per report, patient was pink slipped due to Suicidal ideation but stated he blacked out due to intoxication and can't remember incident leading him to ED. Patient denies SI/HI and AH/VH. Motrin given at for pain 5/10 on ribs and arms, positive effect. No distress noted. Non-pharmacological interventions and effectiveness: provided emotional support and offered to callsupport Medications Pharmacological PRNs indications and effectiveness: none requested or required Medication adherence: yes Psychotropic medication side effects: none reported or observed Functional Assessment - Activities of Daily Living Self-care: Clean Socialization (group, peer interactions): Patient new admit Nutrition and elimination interventions and effectiveness: offered frequent meals/snacks and encouraged fluid intake Last Bowel Movement: 04/24/21 Mobility: up for meals Sleep Number of hours this shift: Qa Intern 7 hours 45 min Non-pharmacological interventions and effectiveness: reduction in caffeine intake and bedtime routine Additional Information N/A * Plan of Care - Nita John RN - 04/26/2021 12:14 AM EDT Problem: Patient Care Overview Goal: Plan of Care Review Outcome: Met This Shift Problem: Overarching Goals (Adult) Goal: Optimized Coping Skills in Response to Life Stressors Outcome: Met This Shift * Certification - Felicita Andre MD - 04/25/2021 6:20 PM EDT I certify that this patient requires inpatient services at this time. I anticipate the expected length of stay will include at least two midnights. Inpatient services are due to the following medicalconcerns : depression, alcohol use disorder. Plans for post hospitalization care will be discharge to home. Felicita Andre MD Psychiatry PGY-3 Pg #[phone] documented [facility] [id number] Note* Nursing Notes - Prisca Bryan RN - 05/01/2021 10:50 AM EDT Pt discharged to home via a cab. Reviewed AVS, after care, safety plans, medications and recommendations. [facility]ations [facility] for [facility] to take with, verbalized understanding. Pt acknowledged receipt of all belongings, denies psychiatry symptoms and is [facility] of Present illness Narrative* Carri Saleh - 05/01/2021 10:41 AM EDT Images from the original note were not included. [facility] Delivery Note: The following medications were delivered to the nurse's station: Prisca Saleh Bedside: [phone] [facility]): [phone] [place]: [phone] [facility]: [phone] [facility]: [phone] * Lety Valenzuela RPh,PharmD - 05/01/2021 10:25 AM EDT Images from the original note were not included. [facility] Note: [facility] the following [facility] prescription(s): Total cost is $0. I have reviewed the Discharge Rx Reconciliation Report. Discharge date was confirmed with the [facility] expected discharge date. A verbal medication confirmation was completed with Dr. Sanches. The discharge prescription(s) will be delivered to the patient on 05/01/2021. Lety Valenzuela RPh,PharmD [facility] [phone] [facility] [phone] [place] [facility] [phone] * Patricia Spann - 05/01/2021 8:27 AM EDT Social Work Discharge Note: Sw met with the treatment team and reviewed patient's chart on today's date. Patient's discharge was confirmed. Discharge Plan: Pt ready for discharge. He will be [facility] to get his belongings and then directly to [facility] for residential work Rehab program. Pt agreeable. Linkage made to [facility] and [facility] as well. Appts in AVS and reviewed directly with pt. Pt will be given 30 days of med's ( through med's to beds) at discharge. Safety: Pt voiced no safety or discharge concerns to parts data writer. Safety Plan completed and in AVS. Contact with Supports: Contact with supports and outpatient providers made as allowed by patient (See previous notes for more details) Advanced directives: Pt has no advanced directives, and does not wish to have information at this time. Smoking: Pt declined smoking cessation counseling / referral Substance Abuse Issues / referrals: Resources on AVS. AVS completed and faxed to patient's outpatient mental health providers as listed on patients AVS for CARMELO. Fax confirmation of receipt obtained. See AVS for further aftercare details. Patricia Spann, EMANUEL-S # [phone] * Zoe Ferguson, OT - 04/30/2021 4:27 PM EDT Mary Occupational Therapy Evaluation AM-PAC score(s): CURRENT AM-PAC Activity Raw Score: 24 Patient seen for initial evaluation, including chart review, interview, and observation. Instructedin the role of psychiatric Occupational Therapy. Explained the role and goals of occupational therapy, including evaluation, course of treatment, and discharge planning. Based on the above AM-PAC score and OT clinical judgement, the discharge destination recommendation is . Patient may benefit from the following community-based programs to support ongoing stability: Alcoholics Anonymous, community services/therapy treatment to develop positive coping skills, grief counseling, homelessness support services, IOP/PHP Equipment recommendations for discharge: none ADL Equipment Available at Home: none Mobility Equipment Available at Home: none used Current therapy frequency recommendation(s) in acute: OT:Therapy Frequency: 2 times a week HPI: HPI authored by LEODAN Carrasco Mckinley Roman is a 36 y.o. male with a past psychiatric history notable for Depression vs Bipolar II disorder, alcohol use disorder, cocaine use disorder, and methamphetamine use disorder presenting to the ED involuntarily on a [place] Slip (application for involuntary admission) on 04/25/2021 with concern for suicidal ideation and threats. Per the pink slip, the police responded in the community where the patient was documented to be threatening to slit his throat and put a knife in his mouth with a knife. Per ED nursing notes, the patient endorsed hearing command AH of voices telling him to grab a knife and slit his throat. The ED provider documented him to be unable to attend to questioning due to his intoxication and a poor historian. Several hours afterthe patient's arrival, the patient was yelling at and threatening staff, then demanded his propertyand to leave. He was escorted to seclusion and given Haldol 5mg and Ativan 2mg. Once he was medically stable, psychiatry was consulted to aid in the disposition due to his 5122 status and his endorsed lethality. This afternoon, the patient is resting in his room, but rouses with prompt and sits up to engage. He presents as slightly disheveled and makes appropriate eye contact. He speaks linearly and logically. He is oriented to person, place, and month/year. He denies recalling the series of events precipitating his arrival last night, and reports the last thing he remembers is being out to dinner with a beautiful women. He endorses EtOH consumption, though doesn't recall how much he drank. He stateshe doesn't recall making any suicidal statements or threats. The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 gum #EtOH UD - discontinue CIWA 04/28/21 - thiamine and folate - MVI w minerals Medical status Continue monitoring vital signs, current DVT prophylaxis, and diet Laboratory studies, radiology results, ECG, or other information reviewed and discussed with patient and plan to address comorbid medical conditions as follows: #rib fracture - pain management ok so far with usual PRNs #hx of TBI #vertigo - appears to be benign paroxysmal positional vertigo but given TBI hx and prolonged course, will consult neurology #allergies, environmental - loratadine 10 mg daily Level of Observation, Suicide Risk Assessment and Safety Planning: The patient DOES NOT have medical equipment or a medical bed. Current risk of suicide is low as evidenced by recent progress and current mental status examination Safety plan will be completed prior to discharge. Current level of precautions: Standard/Trauma Precautions I re-certify that this inpatient psychiatric hospital admission is medically necessary for diagnostic study and/or active treatment, which could reasonably be expected to improve the patient's condition. Associated attestation - Rosario Sanches MD - 04/29/2021 1:11 PM EDT Attending Physician Attestation I saw and independently examined the patient on date of 04/29/21 and reviewed the documentation by Dr. Degroot. I agree with the history, examination, and medical decision making as noted. Additional information based on my assessment: Patient reports improved sleep with the increase in trazodone and overall improved mood. He denies side effects with current medication regimen. He feels ready for discharge once aftercare planning is in place. He agrees that relapse prevention is a major goal and he is in agreement with continuingnaltrexone and getting a Vivitrol shot. LOW RISK: Will initiate/continue standard precautions per unit policy TREATMENT PLAN UPDATE Plan of Care Discussed with Patient and the following Action was reviewed: Continue plan of care as previously discussed and documented Patient's Response: Verbalizes agreement with plan or modifications to plan. Continued Stay Criteria (select all that apply) The acute treatments pose a reasonable risk of complications the would further cause dangerous deterioration of individual's mental or physical health, Patient is progressing in treatment but has notyet acheived a base line, and Clinical evidence that less intensive treatment will result in unwanted regression Current Length of Stay: 4 Days Expected Discharge Date: 05/01/2021 I re-certify that this inpatient psychiatric hospital admission is medically necessary for diagnostic study and/or active treatment, which could reasonably be expected to improve the patient's condition. Rosario Sanches MD * Patricia Spann - 04/28/2021 1:09 PM EDT Social Work Note: Pt's chart reviewed. SW spoke with attending/ resident today and discussed pt's care and treatment. I called [facility] [phone] to check on patients return status. I was told I needed to [phone] Pt says he was told his belongings are there and he can return but needs verified. Pt and I both called [facility] at [phone]. I spoke to Esperanza. Esperanza said he thinks he can return but has to review situation tomorrow in staff meeting and will call me by end of day tomorrow to let me know if he can come back for sure. He said if for some reason he cant come back to them - He has a couple other places he may be able to go. Met with pt: He knows [facility] Esperanza to call me and let me know if he indeed can come back. Marianneoesn't want linked to [facility] since if he returns to [facility] - [place] will do his med mgmt and counseling and support will be done through [facility]. Pt talked about his back out and how scary that was when he heard about it. Safety plan discussed and completed. Pt said he has no supports To contact at this time since his mother around last year. Father in hospital in [place] and he is an only child with no or kids. So no ELIDIA signed. Pt said trigger towanting to drink was lack of sleep and no medicine to help when at [facility]. He is pleased he is back on Trazodone and would like RX for trazodone and Effexor at discharge. Pharmacy that [facility] uses is the [facility] on [facility]. [facility] address is [address] [place] [address]. I told pt I would update him once I hear back from [facility] tomorrow or Wednesday. He agreed and understood staff meeting not until tomorrow afternoon. * Michael Degroot MD - 04/28/2021 7:30 AM EDT PROGRESS NOTE/TREATMENT REVIEW 04/28/2021 TREATMENT TEAM Reviewed by Treatment Team, following member present: nurse, rn social work, faculty physician, resident physician Subjective/Interval History/ROS Mckinley Roman is a 36 y.o. M with a past hx of MDD vs bipolar disorder 2, EtOH UD c/b withdrawal seizure, stimulant UD who arrived to [facility] ED via CPD on a pink slip for stating he wanted a knife to cut his throat at a restaurant in the setting of EtOH intoxication and several months of medication noncompliance. In the ED, he attempted to elope several times, his speech was mostly meaningless during triage, he reported auditory and tactile hallucinations, and required emergency PRN medications and seclusion to ensure staff and pt safety. Once sober, he was evaluated psychiatrically; reported that he was blacked out when brought in and recanted SI, he reported depression recently and was in EtOH withdrawal. Interval History: VS: VSS, CIWA 0 Labs/Imaging: admission labs reviewed, none new since 04/26 Sleep: 6 hours, 15 min Medications: Compliant, except nicotine PRNs: maalox, hydroxyzine, ibuprofen, miralax, eye drops Behavior: no acute events Subjective: On interview, the patient engages well with the interview team and is willing to meet with the team. Patient says yesterday was pretty good. Says he spent his day reading, watching TV, playing cards, and socializing with others. He slept well and feels rested. Says trazodone has helped, but that his sleep could still improve. Appetite has improved. Denies somatic symptoms - constipation resolvedwith Miralax. Brain fog and anxiety have improved from yesterday. Denies symptoms of alcohol withdrawal. He feels that the Effexor is going well and denies side effects. Describes mood as positive but that he is ready to go. Patient denies alcohol cravings today. Discussed events leading to his hospitalization and mentionsagain that he never had any suicidal ideation while intoxicated. Explains that he left a meeting with his counselor at [facility] to go drink which led to his presentation. States that there is no excuse for me to ever drink or do drugs. Patient does mention that poor sleep is a stressor that often precipitates his depressive symptoms and subsequent alcohol use. Patient is eager to leave but is amendable to staying and voluntarily signed-in during the interview. Team encouraged him to call [facility] to inquire about returning to stay there after discharge. Denies SI / HI / AVH. Signed in voluntarily for admission. Agreeable to increasing trazodone to target insomnia. Review of Systems: Psychiatric: Anxiety: none evident Irritability: none evident Constitutional: No recent change in weight or fever Musculoskeletal: No back, neck, muscle, or joint pain Respiratory: No cough or shortness of breath Cardiovascular: No chest pain, palpitations, or leg swelling Gastrointestinal: No abdominal pain, nausea vomiting, or diarrhea Genitourinary: No pain on urination Neurologic: No dizziness, seizures, or headaches Eyes: No change in vision HENT: No congestion, hearing problem, tinnitus, dysphagia, or sore throat Skin: No rash or wound 24 HOUR LAB RESULTS No results found for this or any previous visit (from the past 24 hour(s)). MEDICATIONS Scheduled: folic acid (FOLVITE) tablet 1 mg, 1 mg, Daily multivitamin w/ minerals (THERAPEUTIC-M) tablet 1 tablet, 1 tablet, Daily naltrexone (DEPADE) tablet 50 mg, 50 mg, Daily nicotine (NICODERM CQ) 7 MG/24HR patch 1 patch, 1 patch, Q24H thiamine tablet 100 mg, 100 mg, Daily traZODone (DESYREL) tablet 50 mg, 50 mg, QHS venlafaxine (EFFEXOR-XR) capsule XR 75 mg, 75 mg, Every BKF PRN: alum/mag hydrox.-simethicone, 30 mL, Q6H PRN benztropine, 1 mg, Q6H PRN Or benztropine mesylate, 1 mg, Q6H PRN haloperidol lactate, 5 mg, Q4H PRN And LORazepam, 2 mg, Q4H PRN And diphenhydrAMINE, 50 mg, Q4H PRN haloperidol, 5 mg, Q4H PRN And LORazepam, 2 mg, Q4H PRN And diphenhydrAMINE, 50 mg, Q4H PRN hydrOXYzine HCl, 25 mg, Q6H PRN ibuprofen, 400 mg, Q6H PRN LORazepam, 1 mg, Q30 MIN PRN Or LORazepam, 2 mg, Q30 MIN PRN LORazepam, 1-4 mg, Q1H PRN melatonin, 3 mg, QHS PRN nicotine, 4 mg, Q2H PRN polyethylene glycol, 17 g, Daily PRN Polyvinyl Alcohol-Povidone PF, 2 drop, PRN PHYSICAL AND MENTAL STATUS EXAM Blood pressure 111/67, pulse 56, temperature 98 F (36.7 C), temperature source Infrared, resp. rate16, height 1.803 m (5' 11 ), SpO2 97 %. Musculoskeletal: gait normal, station is within normal limits; tremor absent Constitutional: well-appearing; appropriate hygiene; no acute distress Attention/concentration: alert, little distractibility and capable of maintaining prolonged focus, appropriate eye contact Orientation: oriented to self, location, date and situation Mood: positive Affect: congruent and calm; full-range; appropriate emotional reactivity Motor Activity: normokinetic and neither restless nor sedated Speech: fluent Palestinian, average rate and rhythm, loud volume, normal prosody Thought Process: linear, logical and goal-oriented Associations: intact Suicidal Ideation: denied by the patient Homicidal Ideation: denied by the patient Delusions: none evident Hallucination: denies hearing voices, denies seeing visions and not apparently responding to internal stimuli Insight/Judgment: fair insight, fair judgment Memory: remote, recent, working memory all appear intact Language: appropriate for the patient's level of education Fund of knowledge: average for the patient's level of education Cognition: intact, no indication of cognitive disorder DIAGNOSTIC IMPRESSION Mckinley Roman is a 36 y.o. male with a history of MDD vs bipolar 2 who is admitted to [facility] with a diagnosis of Depression with suicidal ideation. Since admission, the patient has isolated to self but has been able to get his needs met. He has expressed some insight into his EtOH use and wants to return to treatment. He has consistently denied SI and affect is euthymic. On Day 3 of admission, he is eager to leave but amenable to staying per the team's recommendation. No concern for symptoms of alcohol withdrawal at this time. Continues to deny SI and mood has stabilized. Bipolar disorder is less likely based on patient's history. Treatment Plan Update/Medical Decision Making The multidisciplinary treatment team continues to implement the following: Psychiatric status The patient s admission and precautionary status, medication administration, and safety since last assessment have been reviewed. Social work continuing to coordinate care and discharge planning and collateral information has been reviewed. Legal Status: Involuntary, pink slip dated 04/25/21 Continued Stay Criteria (select all that apply) Patient is progressing in treatment but has not yet acheived a base line and Clinical evidence thatless intensive treatment will result in unwanted regression Psychiatric decision making and treatment modifications with consent from patient/guardian are as follows: 04/25: restart venlafaxine 37.5 mg daily 04/26: increase venlafaxine to 75 mg daily, add trazodone 50 mg for insomnia 04/28: Start naltrexone 50 mg daily, increase trazodone 100 mg at bedtime #Depression with suicidal ideation - Venlafaxine as above #insomnia - trazodone 100 mg at bedtime Substance use disorder Nicotine replacement treatment was provided, in form of patch and gum #EtOH UD - discontinue CIWA 04/28/21 - thiamine and folate - MVI w minerals Medical status Continue monitoring vital signs, current DVT prophylaxis, and diet Laboratory studies, radiology results, ECG, or other information reviewed and discussed with patient and plan to address comorbid medical conditions as follows: #rib fracture - pain management ok so far with usual PRNs Level of Observation, Suicide Risk Assessment and Safety Planning: The patient DOES NOT have medical equipment or a medical bed. Current risk of suicide is low as evidenced by recent progress and current mental status examination Safety plan will be completed prior to discharge. Current level of precautions: Standard/Trauma Precautions I re-certify that this inpatient psychiatric hospital admission is medically necessary for diagnostic study and/or active treatment, which could reasonably be expected to improve the patient's condition. Associated attestation - Rosario Sanches MD - 04/29/2021 8:15 AM EDT Attending Physician Attestation I saw and independently examined the patient on date of 04/28/21 and reviewed the documentation by Dr. Degroot. I agree with the history, examination, and medical decision making as noted. Additional information based on my assessment: Patient reports improving mood; he regrets drinking again; he denies suicidal ideations stating hewould never do anything like it ; minimizes the significance of becoming intensely suicidal under influence but agrees that returning to and maintaining sobriety are crucial for his emotional health;he denies psychosis; he reports improved sleep with trazodone; he denies side effects with the current medications. LOW RISK: Will initiate/continue standard precautions per unit policy TREATMENT PLAN UPDATE Plan of Care Discussed with Patient and the following Action was reviewed: Continue plan of care as previously discussed and documented Patient's Response: Verbalizes agreement with plan or modifications to plan. Continued Stay Criteria (select all that apply) The acute treatments pose a reasonable risk of complications the would further cause dangerous deterioration of individual's mental or physical health, Patient is progressing in treatment but has notyet acheived a base line, and Clinical evidence that less intensive treatment will result in unwanted regression Current Length of Stay: 4 Days Expected Discharge Date: 04/04/2021 I re-certify that this inpatient psychiatric hospital admission is medically necessary for diagnostic study and/or active treatment, which could reasonably be expected to improve the patient's condition. Rosario Sanches MD * Michael Degroot MD - 04/27/2021 9:08 AM EDT PROGRESS NOTE/TREATMENT REVIEW 04/27/2021 TREATMENT TEAM Reviewed by Treatment Team, following member present: nurse, rn social work, faculty physician, resident physician Subjective/Interval History/ROS Mckinley Roman is a 36 y.o. M with a past hx of MDD vs bipolar disorder 2, EtOH UD c/b withdrawal seizure, stimulant UD who arrived to [facility] ED via [facility] on a pink slip for stating he wanted a knife to cut his throat at a restaurant in the setting of EtOH intoxication and several months of medication noncompliance. In the ED, he attempted to elope several times, his speech was mostly meaningless during triage, he reported auditory and tactile hallucinations, and required emergency PRN medications and seclusion to ensure staff and pt safety. Once sober, he was evaluated psychiatrically; reported that he was blacked out when brought in and recanted SI, he reported depression recently and was in EtOH withdrawal. Interval History: VS: VSS Labs/Imaging: admission labs reviewed, none new since 04/26 Sleep: 8 hours Medications: Compliant PRNs: for medical needs, specifically ibuprofen and for psychiatric needs, specifically hydroxyzine Behavior: reported to RN he was disappointed in self for leaving [facility] treatment, mostly isolates to room, paces the unit, reports anxiety Subjective: On interview, the patient engages well with the interview team and is willing to meet with the team. Patient states he does not recall the events leading up to his admission. He states he has severe relapse into drinking and woke up in the hospital. He was previously at [facility] after detox at [facility], began creating alcohol due to lack of sleep and poor mood, left [facility] before linking with [facility] for psychiatry. States he is hoping to return to [facility] after discharge, was told by someone there this possible. He regrets his actions and is motivated to engage and treatment for alcohol use and his mental health. Patient began to struggle with his mental health at age 19, stating that he moved to college and developed trouble concentrating. He was started on ADHD medication, experienced side effects, discontinued medication, and has struggled with depression, especially low energy, poor motivation, and sad mood ever since. He was diagnosed with MDD and LYNNETTE, was trialed on low-dose Zyprexa for mood stabilization but did not tolerate it. Started Celexa, had side effects. Around this time, he started usingalcohol. Since then, his longest period of sobriety since 2007, other than a period of incarceration, was 4 months. He identifies his typical triggers for relapse as stress caused by being hungry, angry, lonely, tired. He identifies a pattern of depression and anxiety leading to alcohol use, which either makes him feel okay or worse depending on how much he drinks. Usually has depression in the days following a lcohol use. He has been on Vivitrol before and got partial benefit due to not participating fully in other programming, but he would like to try this again. Never tried acamprosate. Currently denies any withdrawal symptoms or craving for alcohol. Recently, he had an accident in the setting of alcohol intoxication in which she broke his ribs, [facility] consult liaison psychiatrist gave him Effexor for mood disorder and patient is tolerating it well. Reports brain fog but unclear if this is medication or alcohol related. Slept welllast night, better than previous nights with trazodone, and patient reports that without medicationhe has some anxiety and some restlessness with sleep. Appetite is adequate, energy is improving, anxiety is improving. States mood is positive and denies SI, HI, AVH. Somatically, rib pain is improved, no other somatic complaints. Review of Systems: Psychiatric: Anxiety: none evident Irritability: none evident Constitutional: No recent change in weight or fever Musculoskeletal: No back, neck, muscle, or joint pain Respiratory: No cough or shortness of breath Cardiovascular: No chest pain, palpitations, or leg swelling Gastrointestinal: No abdominal pain, nausea vomiting, or diarrhea Genitourinary: No pain on urination Neurologic: No dizziness, seizures, or headaches Eyes: No change in vision HENT: No congestion, hearing problem, tinnitus, dysphagia, or sore throat Skin: No rash or wound 24 HOUR LAB RESULTS No results found for this or any previous visit (from the past 24 hour(s)). MEDICATIONS Scheduled: folic acid (FOLVITE) tablet 1 mg, 1 mg, Daily multivitamin w/ minerals (THERAPEUTIC-M) tablet 1 tablet, 1 tablet, Daily nicotine (NICODERM CQ) 7 MG/24HR patch 1 patch, 1 patch, Q24H thiamine tablet 100 mg, 100 mg, Daily traZODone (DESYREL) tablet 50 mg, 50 mg, QHS venlafaxine (EFFEXOR-XR) capsule XR 75 mg, 75 mg, Every BKF PRN: alum/mag hydrox.-simethicone, 30 mL, Q6H PRN benztropine, 1 mg, Q6H PRN Or benztropine mesylate, 1 mg, Q6H PRN haloperidol lactate, 5 mg, Q4H PRN And LORazepam, 2 mg, Q4H PRN And diphenhydrAMINE, 50 mg, Q4H PRN haloperidol, 5 mg, Q4H PRN And LORazepam, 2 mg, Q4H PRN And diphenhydrAMINE, 50 mg, Q4H PRN hydrOXYzine HCl, 25 mg, Q6H PRN ibuprofen, 400 mg, Q6H PRN LORazepam, 1 mg, Q30 MIN PRN Or LORazepam, 2 mg, Q30 MIN PRN LORazepam, 1-4 mg, Q1H PRN melatonin, 3 mg, QHS PRN nicotine, 4 mg, Q2H PRN polyethylene glycol, 17 g, Daily PRN PHYSICAL AND MENTAL STATUS EXAM Blood pressure 126/67, pulse 66, temperature 98.2 F (36.8 C), temperature source Infrared, resp. rate 15, height 1.803 m (5' 11 ), SpO2 96 %. Musculoskeletal: gait normal, station is within normal limits; tremor absent Constitutional: well-appearing; fair hygiene; no acute distress Attention/concentration: alert, little distractibility and capable of maintaining prolonged focus, appropriate eye contact Orientation: oriented to self, location, date and situation Mood: Positive Affect: congruent and calm; full-range; appropriate emotional reactivity Motor Activity: normokinetic and neither restless nor sedated Speech: fluent Palestinian, average rate and rhythm, appropriate volume, normal prosody Thought Process: linear, logical and goal-oriented Associations: intact Suicidal Ideation: denied by the patient Homicidal Ideation: denied by the patient Delusions: none evident Hallucination: denies hearing voices, denies seeing visions and not apparently responding to internal stimuli Insight/Judgment: fair insight, fair judgment Memory: remote, recent, working memory all appear intact Language: appropriate for the patient's level of education Fund of knowledge: average for the patient's level of education Cognition: intact, no indication of cognitive disorder DIAGNOSTIC IMPRESSION Mckinley Roman is a 36 y.o. male with a history of MDD vs bipolar 2 who is admitted to [facility] with a diagnosis of Depression with suicidal ideation. Since admission, the patient has isolated to self but has been able to get his needs met. He has expressed some insight into his EtOH use and wants to return to treatment. He has consistently denied SI and affect is euthymic. Treatment Plan Update/Medical Decision Making The multidisciplinary treatment team continues to implement the following: Psychiatric status The patient s admission and precautionary status, medication administration, and safety since last assessment have been reviewed. Social work continuing to coordinate care and discharge planning and collateral information has been reviewed. Legal Status: Involuntary, pink slip dated 04/25/21 Continued Stay Criteria (select all that apply) Patient is progressing in treatment but has not yet acheived a base line and Clinical evidence thatless intensive treatment will result in unwanted regression Psychiatric decision making and treatment modifications with consent from patient/guardian are as follows: 04/25: restart venlafaxine 37.5 mg daily 04/26: increase venlafaxine to 75 mg daily, add trazodone 50 mg for insomnia 04/28: Start naltrexone 50 mg daily #Depression with suicidal ideation - Venlafaxine as above #insomnia - trazodone 50 mg at bedtime Substance use disorder Nicotine replacement treatment was provided, in form of patch and gum #EtOH UD, in withdrawal - CIWA monitoring and ativan per protocol - thiamine and folate - MVI w minerals Medical status Continue monitoring vital signs, current DVT prophylaxis, and diet Laboratory studies, radiology results, ECG, or other information reviewed and discussed with patient and plan to address comorbid medical conditions as follows: #rib fracture - pain management ok so far with usual PRNs Level of Observation, Suicide Risk Assessment and Safety Planning: The patient DOES NOT have medical equipment or a medical bed. Current risk of suicide is moderate as evidenced by recent progress and current mental status examination Safety plan will be completed prior to discharge. Current level of precautions: Moderate-risk Suicide (twice in 15 minutes), Fall, Seizure and Withdrawal (opiate/benzodiazepine/alcohol) I re-certify that this inpatient psychiatric hospital admission is medically necessary for diagnostic study and/or active treatment, which could reasonably be expected to improve the patient's condition. Associated attestation - Pratibha Rincon MD - 04/27/2021 7:19 PM EDT Attending Physician Attestation I saw and independently examined the patient on date of 04/27/21 and reviewed the documentation by Dr. Degroot. I agree with the history, examination, and medical decision making as noted. Additional information based on my assessment: pt states that his mood is good this morning.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 calm; full-range; appropriate emotional reactivity Motor Activity: normokinetic and neither restless nor sedated Speech: fluent Palestinian, average rate and rhythm, appropriate volume, normal prosody Thought Process: linear, logical and goal-oriented Associations: intact Suicidal Ideation: denied by the patient Homicidal Ideation: denied by the patient Delusions: none evident Hallucination: denies hearing voices, denies seeing visions and not apparently responding to internal stimuli Insight/Judgment: fair insight, fair judgment Memory: remote, recent, working memory all appear intact Language: appropriate for the patient's level of education Fund of knowledge: average for the patient's level of education Cognition: intact, no indication of cognitive disorder DIAGNOSTIC IMPRESSION Mckinley Roman is a 36 y.o. male with a history of MDD vs Bipolar II who is admitted to [facility] with a diagnosis of Depression with suicidal ideation. Since admission, the patient has isolated to self but has been able to get his needs met. He has expressed some insight into his EtOH use and wants to return to treatment. He has consistently denied SI and affect is euthymic. On Day 3 of admission, he is eager to leave but amenable to staying per the team's recommendation. On Day 5 of admission, patient continues to demonstrate insight into the relationship between his EtOH use and his mental health and is eager to get connected with a treatment program. No concern for symptoms of alcohol w ithdrawal at this time. Continues to deny SI and mood has stabilized. Bipolar disorder is less likely based on patient's history. Treatment Plan Update/Medical Decision Making The multidisciplinary treatment team continues to implement the following: Psychiatric status The patient s admission and precautionary status, medication administration, and safety since last assessment have been reviewed. Social work continuing to coordinate care and discharge planning and collateral information has been reviewed. Legal Status: Involuntary, pink slip dated 04/25/21 Signed-in voluntarily on 04/28 Continued Stay Criteria (select all that apply) Patient is progressing in treatment but has not yet acheived a base line and Clinical evidence thatless intensive treatment will result in unwanted regression Psychiatric decision making and treatment modifications with consent from patient/guardian are as follows: 04/25: restart venlafaxine 37.5 mg daily 04/26: increase venlafaxine to 75 mg daily, add trazodone 50 mg for insomnia 04/28: Start naltrexone 50 mg daily, increase trazodone 100 mg at bedtime 04/30: Increase trazodone to 150 mg at bedtime #Depression with suicidal ideation - Continue venlafaxine 75 mg daily - Planning for discharge tomorrow (05/01) - Intake call with [employer] today #Insomnia - Increase trazodone to 150 mg at bedtime Substance use disorder Nicotine replacement treatment was provided, in the form of patch and gum. #EtOH UD - Vivitrol injection tomorrow (05/01) - thiamine and folate - MVI w minerals Medical status Continue monitoring vital signs, current DVT prophylaxis, and diet Laboratory studies, radiology results, ECG, or other information reviewed and discussed with patient and plan to address comorbid medical conditions as follows: #rib fracture - pain management ok so far with usual PRNs #hx of TBI #vertigo - neurology recs appreciated: likely mild BPPV, no intervention needed #allergies, environmental - loratadine 10 mg daily Level of Observation, Suicide Risk Assessment and Safety Planning: The patient DOES NOT have medical equipment or a medical bed. Current risk of suicide is low as evidenced by recent progress and current mental status examination Safety plan will be completed prior to discharge. Current level of precautions: Standard/Trauma Precautions I re-certify that this inpatient psychiatric hospital admission is medically necessary for diagnostic study and/or active treatment, which could reasonably be expected to improve the patient's condition. Checo Ruiz, MS3 Associated attestation - Michael Degroot MD - 04/30/2021 2:23 PM EDT This medical student note was used for education purposes only. Please refer to resident/attending physician's notes from 04/30/21 for updates to history, assessment, and treatment plan. Michael Degroot MD PGY2, Pager [phone] [facility] Department of Psychiatry and Behavioral Health [facility]03-23-2022 Note* Nursing Notes - Porfirio Noriega RN - 04/30/2021 6:12 AM EDT [id number]: Patient appears to have slept 7 hours overnight without incident or complaints. Safety rounds maintained per order. [facility]03-23-2022 Note* Plan of Care - Porfirio Noriega RN - 04/30/2021 3:36 AM EDT Problem: Patient Care Overview Goal: Plan of Care Review Outcome: Met This Shift [facility]03-22-2022 Note* Nursing Notes - Tiki Tierney RN - 04/29/2021 8:23 PM EDT Nursing Note Per Tour of Duty [id number] Patient Daily Goal(s): refer to care plan goal(s) Psychiatric Assessment Reported and Observed signs and symptoms: pt denies SI/HI/AVH, denies physical concerns or pain, ptcalm, cooperative and pleasant, endorsed they are planning [facility] and maintain sobriety and continue to work on their mental health. Non-pharmacological interventions and effectiveness: provided emotional support, reviewed coping strategies, provided psychoeducation, encouraged relaxation and facilitated therapeutic use of tablet Medications Pharmacological PRNs indications and effectiveness: none requested or required Medication adherence: yes Psychotropic medication side effects: none reported or observed Functional Assessment - Activities of Daily Living Self-care: did laundry Socialization (group, peer interactions): appropriately interacted with peers in milieu Nutrition and elimination interventions and effectiveness: offered frequent meals/snacks and encouraged fluid intake Last Bowel Movement: 04/29/21 Mobility: up for meals, active in milieu and demonstrated safe ambulation techniques Sleep Number of hours this shift: Evening Shift 0 hours Non-pharmacological interventions and effectiveness: bedtime routine Additional Information n/a [facility]03-22-2022 Group counseling note* Group Note - LEODAN Flores - 04/29/2021 3:48 PM EDT CORE Programming Group Therapy Progress Note Group Topic: Celebrate Success Date: 04/29/2021 Start Time: 1505 End Time: 1515 Total Time: 10 min of group time Telephone Operators Supervisor: LEODAN Flores Department: Patient Mgmt [place] [facility] Patients were asked to participate in a brief wrap up group at the end of day programming. This group focused on debriefing the groups attended and evaluating progress. Patients were encouraged to identify if they attended scheduled groups. Patients were encouraged to share if they met their goal from Greet the Day (9 AM/10 AM group). Patients were asked to scale their successes of the day on a 10 scale. Patients who met their goals were rewarded at the end of group for their goal successes. Patient was present and an active participant in the group. Patient identified feeling their progress was a 9 on a 10 scale. Overall patient appeared satisfied regarding progress made in programming and in meeting treatment goals related to discharge. LEODAN Flores 04/29/2021 [facility]03-22-2022 Group counseling note* Group Note - LEODAN Flores - 04/29/2021 2:49 PM EDT CORE Programming Group Therapy Progress Note Group Topic: Dialectical Behavioral Therapy Interpersonal Effectiveness Date: 04/29/2021 Start Time: 1000 End Time: 1045 Total Time: 45 min of group time Telephone Operators Supervisor: LEODAN Flores Department: Patient Mgmt [place] [facility] Group began with a check in and ice breaker. Telephone Operators Supervisor reviewed theme of the day - Interpersonal Effectiveness. Group focused on discussing communication styles and how to have effective communication . Group members practiced I messages and were encouraged to find ways to utilize these communication techniques outside of the hospital. Throughout the group patients were encouraged to give positive feedback and be supportive of others in the group. Pt was an active and engaged participant in group. Identified examples of communication styles and shared often in group discussion. Met with tx team during group and asked for a summary of what he missed after group hour. Met group expectations. LEODAN Flores 04/29/2021 [facility]03-22-2022 Consult note* Tasha Ragland MD - 04/29/2021 1:10 PM EDTAssociated Order(s): IP CONSULT TO NEUROLOGY Images from the original note were not included. NEUROLOGY CONSULTATION NOTE Reason for consultation: episodic vertigo/dizziness, hx of tbi History of present illness: Mckinley Roman is a 36 y.o. male with history of MDD vs bipolar disorder2, EtOH UD c/b withdrawal seizure, stimulant UD who arrived to [facility] ED via [facility] on a pink slip for stating he wanted a knife to cut his throat at a restaurant in the setting of EtOH intoxication and several months of medication noncompliance. He is in [place] due to auditory/tactile hallucinations, SI in the setting of ETOH intoxication. Consulted for longstanding episodic lightheaded symptoms thathas been there after his tbi 7 years ago. He says that since his tbi at times he would experience lightheadedness mostly when playing sports.He says quick head turns can trigger hours of lightheaded feelings. He gives the example of yesterday while playing basketball he started having lightheadedness. He denies these symptoms right now and he does not have these symptoms when just turning his head up/down, left/right. He denies hearing loss, ringing in the ears, room spinning, diplopia, falls, headaches. Review of Systems: Pertinent items are noted in the HPI, all other systems were queried and are negative. Past Medical History: Diagnosis Date Bipolar 1 disorder Depression No past surgical history on file. History reviewed. No pertinent family history. Social History Socioeconomic History Marital status: Single Spouse name: Not on file Number of children: Not on file Years of education: Not on file Highest education level: Not on file Occupational History Not on file Tobacco Use Smoking status: Current Every Day Smoker Types: Cigarettes Smokeless tobacco: Never Used Vaping Use Vaping Use: Never used Substance and Sexual Activity Alcohol use: Yes Drug use: Yes Types: Methamphetamines Sexual activity: Not on file Other Topics Concern Not on file Social History Narrative Not on file Social Determinants of Health Financial Resource Strain: Not on file Food Insecurity: Not on file Transportation Needs: Not on file Physical Activity: Not on file Stress: Not on file Social Connections: Not on file Intimate Partner Violence: Not on file Housing Stability: Not on file Allergies Allergen Reactions *Seasonal Runny Nose Medications Prior to Admission Medication Sig Dispense Refill Last Dose venlafaxine 37.5 MG Cap SR 24HR capsule XR Take 37.5 mg by mouth daily. 04/24/2021 at Unknown time Current medications: Current Facility-Administered Medications Medication Dose Route Frequency Provider Last Rate Last Admin alum/mag hydrox.-simethicone oral suspension 30 mL 30 mL Oral Q6H PRN Felicita Andre MD 30 mL at 04/27/21 7097 benztropine (COGENTIN) tablet 1 mg 1 mg Oral Q6H PRN Felicita Andre MD Or benztropine mesylate (COGENTIN) injection 1 mg 1 mg Intramuscular Q6H PRN Felicita Andre MD haloperidol lactate (HALDOL) injection 5 mg 5 mg Intramuscular Q4H PRN Felicita Andre MD And LORazepam (ATIVAN) injection 2 mg 2 mg Intramuscular Q4H PRN Felicita Andre MD And diphenhydrAMINE (BENADRYL) injection 50 mg 50 mg Intramuscular Q4H PRN Felicita Andre MD haloperidol (HALDOL) tablet 5 mg 5 mg Oral Q4H PRN Felicita Andre MD And LORazepam (ATIVAN) tablet 2 mg 2 mg Oral Q4H PRN Felicita Andre MD And diphenhydrAMINE (BENADRYL) tablet 50 mg 50 mg Oral Q4H PRN Felicita Andre MD folic acid (FOLVITE) tablet 1 mg 1 mg Oral Daily Felicita Andre MD 1 mg at 04/29/21 0815 hydrOXYzine HCl (ATARAX) tablet 25 mg 25 mg Oral Q6H PRN Felicita Andre MD 25 mg at 04/28/21 1340 ibuprofen (MOTRIN) tablet 400 mg 400 mg Oral Q6H PRN Felicita Andre MD 400 mg at 04/27/21 0846 loratadine (CLARITIN) tablet 10 mg 10 mg Oral Daily Michael Degroot MD 10 mg at 04/29/21 1146 melatonin tablet 3 mg 3 mg Oral QHS PRN Felicita Andre MD multivitamin w/ minerals (THERAPEUTIC-M) tablet 1 tablet 1 tablet Oral Daily Felicita Andre MD 1 tablet at 04/29/21 0815 naltrexone (DEPADE) tablet 50 mg 50 mg Oral Daily Michael Degroot MD 50 mg at 04/29/21 0815 nicotine (NICODERM CQ) 7 MG/24HR patch 1 patch 1 patch Transdermal Q24H Michael Degroot MD 1 patch at 04/29/21 0815 nicotine (NICORETTE) gum 4 mg 4 mg Oral Q2H PRN Felicita Andre MD 4 mg at 04/28/21 1352 polyethylene glycol (MIRALAX) packet 17 g 17 g Oral Daily PRN Felicita Andre MD 17 g at 04/27/21 1744 Polyvinyl Alcohol-Povidone PF (REFRESH) ophthalmic solution 2 drop 2 drop Both Eyes PRN Shirley Lorenzo MD 2 drop at 04/29/21 1146 thiamine tablet 100 mg 100 mg Oral Daily Felicita Andre MD 100 mg at 04/29/21 0815 traZODone (DESYREL) tablet 100 mg 100 mg Oral QHS Michael Degroot MD 100 mg at 04/28/21 2245 venlafaxine (EFFEXOR-XR) capsule XR 75 mg 75 mg Oral Every BKF Felicita Andre MD 75 mg at 04/29/21 0815 Physical Examination Temp: [98 F (36.7 C)-98.6 F (37 C)] 98 F (36.7 C) Pulse (Heart Rate): [64-66] 66 Resp Rate: [16] 16 BP: (129-135)/(65-74) 135/74 O2 Sat (%): [95 %-97 %] 97 % Weight: [104.3 kg (230 lb)] 104.3 kg (230 lb) Body mass index is 32.08 kg/m . General: sitting in chair; in no acute distress. HENT: Normal oropharynx and mucosa. Normal external appearance of ears and nose. Neck: Supple, no pain or tenderness Ext: No cyanosis, edema, or deformity Skin: No rash. Normal palpation of skin. Musculoskeletal: Full range of motion; no joint tenderness. Normal digits and nails by inspection. No clubbing. Neurological Examination Mental status: awake and alert; oriented to person, place, year, and month; good attention. Normal mood and affect. Normal insight into condition. Fund of knowledge intact. Speech/language: fluent; comprehension intact; Cranial nerves: CN II: Visual riley intact to confrontation. PERRL. Normal conjunctivae and lids. podiatry professor III, IV and : extraocular movements intact. Noticed Rward end gaze nystagmus CN V: Facial sensation is intact to light touch. CN VII: Facial strength normal with symmetric movement. CN VIII: Hearing is grossly intact. CN IX and X: Soft palate elevates symmetrically in the midline CN XI: Shoulder shrug and sternocleidomastoid strength (R/L) 5/5 CN XII: Tongue is midline with normal movement; no fasciculations. Motor: Normal bulk and tone. No pronator drift. SA EE EF WE WF DI HF KE KF DF PF Right 5 5 5 5 5 5 5 5 5 5 5 Left 5 5 5 5 5 5 5 5 5 5 5 Reflexes: Right Left Comments Biceps 1 1 Triceps Brachioradialis 1 1 Patellar 0 0 Achilles 2 2 Cheung - - Babinski Coordination: Xfsece-kf-mbiq intact bilaterally. Mljp-rb-tlqq intact bilaterally. Sensation: Comments Light touch Intact throughout Pin prick Temperature Vibration Proprioception Gait: Normal stride length, arm swing, and base width. Able to toe, heel, and tandem walk. NegativeRomberg. Laboratory data: Imaging/diagnostic procedures: No orders to display Impression: Mckinley Roman is a 36 y.o. male with history of MDD vs bipolar disorder 2, EtOH UD c/b withdrawal seizure, stimulant UD who arrived to [facility] ED via CPD on a pink slip for stating he wanted a knife to cut his throat at a restaurant in the setting of EtOH intoxication and several months of medication noncompliance. He is in [place] due to auditory/tactile hallucinations, SI in the setting of ETOH intoxication. Consulted for longstanding episodic lightheaded symptoms that has been there after his tbi 7 years ago. His episodes of provoked lightheadedness, hours of symptoms are likely due to post concussion dizziness, not likely bppv/meniere's/acute vestibular neuritis. His neuro exam is normal besides Rward beating end gaze nystagmus which can be consistent with his post concussion symptoms. Fortunately he is not very symptomatic. We counseled that there is not much treatment we can do to alleviate his symptoms and that this is a shelter/chronic condition at this point. Recommendations: -no further recommendations from neurology, we will sign off Thank you for the consultation. If you have any further questions, please contact the contour stitcher neurology consultation resident. Case seen and staffed with Dr. Michel. Signed, Tasha Ragland MD Associated attestation - Fouzia Michel MD - 04/29/2021 9:48 PM EDT I interviewed and examined this patient with the resident. I reviewed the history and exam detailedin the note. I agree with the medical decision making with the following exceptions: Patient is a 36 years old man with history of alcohol use, MDD who is currently admitted in psychiatry after he attempted suicide in setting of alcohol intoxication. He also has auditory and tactile hallucinations. Neurology was consulted for dizziness/vertigo. Patient reported that his symptoms started after hisTBI 7 years ago. They are intermittent and are mainly triggered by rapid head movements and positional change. The vertigo appears after when he is playing basketball. On the exam, patient was able to trigger some vertigo by moving his head up and down and a mild right end gaze beating nystagmus was noted. Patient endorsed feeling mild dizziness. He denied any nausea, balance problems. He denied hearing loss. His symptoms are usually mild. The rest of his exam isnon focal. This could be consistent with mild benign positional vertigo. -We do not recommend any medication at this time as is symptoms are very mild. -Neurology team will sign off. Fouzia Michel MD Cognitive Neurology Attending [facility] Work Phone: [phone]) 791-985803-22-2022 Consult note* Tasha Ragland MD - 04/29/2021 1:10 PM EDTAssociated Order(s): IP CONSULT TO NEUROLOGY Images from the original note were not included. NEUROLOGY CONSULTATION NOTE Reason for consultation: episodic vertigo/dizziness, hx of tbi History of present illness: Mckinley Roman is a 36 y.o. male with history of MDD vs bipolar disorder2, EtOH UD c/b withdrawal seizure, stimulant UD who arrived to [facility] ED via [facility]PD on a pink slip for stating he wanted a knife to cut his throat at a restaurant in the setting of EtOH intoxication and several months of medication noncompliance. He is in [place] due to auditory/tactile hallucinations, SI in the setting of ETOH intoxication. Consulted for longstanding episodic lightheaded symptoms thathas been there after his tbi 7 years ago. He says that since his tbi at times he would experience lightheadedness mostly when playing sports.He says quick head turns can trigger hours of lightheaded feelings. He gives the example of yesterday while playing basketball he started having lightheadedness. He denies these symptoms right now and he does not have these symptoms when just turning his head up/down, left/right. He denies hearing loss, ringing in the ears, room spinning, diplopia, falls, headaches. Review of Systems: Pertinent items are noted in the HPI, all other systems were queried and are negative. Past Medical History: Diagnosis Date Bipolar 1 disorder Depression No past surgical history on file. History reviewed. No pertinent family history. Social History Socioeconomic History Marital status: Single Spouse name: Not on file Number of children: Not on file Years of education: Not on file Highest education level: Not on file Occupational History Not on file Tobacco Use Smoking status: Current Every Day Smoker Types: Cigarettes Smokeless tobacco: Never Used Vaping Use Vaping Use: Never used Substance and Sexual Activity Alcohol use: Yes Drug use: Yes Types: Methamphetamines Sexual activity: Not on file Other Topics Concern Not on file Social History Narrative Not on file Social Determinants of Health Financial Resource Strain: Not on file Food Insecurity: Not on file Transportation Needs: Not on file Physical Activity: Not on file Stress: Not on file Social Connections: Not on file Intimate Partner Violence: Not on file Housing Stability: Not on file Allergies Allergen Reactions *Seasonal Runny Nose Medications Prior to Admission Medication Sig Dispense Refill Last Dose venlafaxine 37.5 MG Cap SR 24HR capsule XR Take 37.5 mg by mouth daily. 04/24/2021 at Unknown time Current medications: Current Facility-Administered Medications Medication Dose Route Frequency Provider Last Rate Last Admin alum/mag hydrox.-simethicone oral suspension 30 mL 30 mL Oral Q6H PRN Felicita Andre MD 30 mL at 04/27/21 2238 benztropine (COGENTIN) tablet 1 mg 1 mg Oral Q6H PRN Felicita Andre MD Or benztropine mesylate (COGENTIN) injection 1 mg 1 mg Intramuscular Q6H PRN Felicita Andre MD haloperidol lactate (HALDOL) injection 5 mg 5 mg Intramuscular Q4H PRN Felicita Andre MD And LORazepam (ATIVAN) injection 2 mg 2 mg Intramuscular Q4H PRN Felicita Andre MD And diphenhydrAMINE (BENADRYL) injection 50 mg 50 mg Intramuscular Q4H PRN Felicita Andre MD haloperidol (HALDOL) tablet 5 mg 5 mg Oral Q4H PRN Felicita Andre MD And LORazepam (ATIVAN) tablet 2 mg 2 mg Oral Q4H PRN Felicita Andre MD And diphenhydrAMINE (BENADRYL) tablet 50 mg 50 mg Oral Q4H PRN Felicita Andre MD folic acid (FOLVITE) tablet 1 mg 1 mg Oral Daily Felicita Andre MD 1 mg at 04/29/21 0815 hydrOXYzine HCl (ATARAX) tablet 25 mg 25 mg Oral Q6H PRN Felicita Andre MD 25 mg at 04/28/21 1340 ibuprofen (MOTRIN) tablet 400 mg 400 mg Oral Q6H PRN Felicita Andre MD 400 mg at 04/27/21 0846 loratadine (CLARITIN) tablet 10 mg 10 mg Oral Daily Michael Degroot MD 10 mg at 04/29/21 1146 melatonin tablet 3 mg 3 mg Oral QHS PRN Felicita Andre MD multivitamin w/ minerals (THERAPEUTIC-M) tablet 1 tablet 1 tablet Oral Daily Felicita Andre MD 1 tablet at 04/29/21 0815 naltrexone (DEPADE) tablet 50 mg 50 mg Oral Daily Michael Degroot MD 50 mg at 04/29/21 0815 nicotine (NICODERM CQ) 7 MG/24HR patch 1 patch 1 patch Transdermal Q24H Michael Degroot MD 1 patch at 04/29/21 0815 nicotine (NICORETTE) gum 4 mg 4 mg Oral Q2H PRN Felicita Andre MD 4 mg at 04/28/21 1352 polyethylene glycol (MIRALAX) packet 17 g 17 g Oral Daily PRN Felicita Andre MD 17 g at 04/27/21 1744 Polyvinyl Alcohol-Povidone PF (REFRESH) ophthalmic solution 2 drop 2 drop Both Eyes PRN Shirley Lorenzo MD 2 drop at 04/29/21 1146 thiamine tablet 100 mg 100 mg Oral Daily Felicita Andre MD 100 mg at 04/29/21 0815 traZODone (DESYREL) tablet 100 mg 100 mg Oral QHS Michael Degroot MD 100 mg at 04/28/21 2245 venlafaxine (EFFEXOR-XR) capsule XR 75 mg 75 mg Oral Every BKF Felicita Andre MD 75 mg at 04/29/21 0815 Physical Examination Temp: [98 F (36.7 C)-98.6 F (37 C)] 98 F (36.7 C) Pulse (Heart Rate): [64-66] 66 Resp Rate: [16] 16 BP: (129-135)/(65-74) 135/74 O2 Sat (%): [95 %-97 %] 97 % Weight: [104.3 kg (230 lb)] 104.3 kg (230 lb) Body mass index is 32.08 kg/m . General: sitting in chair; in no acute distress. HENT: Normal oropharynx and mucosa. Normal external appearance of ears and nose. Neck: Supple, no pain or tenderness Ext: No cyanosis, edema, or deformity Skin: No rash. Normal palpation of skin. Musculoskeletal: Full range of motion; no joint tenderness. Normal digits and nails by inspection. No clubbing. Neurological Examination Mental status: awake and alert; oriented to person, place, year, and month; good attention. Normal mood and affect. Normal insight into condition. Fund of knowledge intact. Speech/language: fluent; comprehension intact; Cranial nerves: CN II: Visual riley intact to confrontation. PERRL. Normal conjunctivae and lids. podiatry professor III, IV and : extraocular movements intact. Noticed Rward end gaze nystagmus CN V: Facial sensation is intact to light touch. CN VII: Facial strength normal with symmetric movement. CN VIII: Hearing is grossly intact. CN IX and X: Soft palate elevates symmetrically in the midline CN XI: Shoulder shrug and sternocleidomastoid strength (R/L) 5/5 CN XII: Tongue is midline with normal movement; no fasciculations. Motor: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 AM EDT Problem: Patient Care Overview Goal: Plan of Care Review Outcome: Met This Shift [facility] [place] [facility]03-[facility]22 Hospital Discharge instructions* Discharge Instructions* Patricia Spann - 04/28/2021 4:10 PM EDT Discharge diagnosis: Depression, unspecified with suicidal ideation Generalized anxiety disorder Alcohol use disorder, severe Major procedures or tests performed during your inpatient stay, and their results: Major procedures performed during inpatient stay: None Tests performed during inpatient stay: Recent Results (from the past 336 hour(s)) LIPASE Collection Time: 04/25/21 2:36 AM Result Value Ref Range Lipase 16 11 - 82 U/L HEPATIC FUNCTION PANEL Collection Time: 04/25/21 2:36 AM Result Value Ref Range Albumin 4.4 3.5 - 5.0 g/dL Bilirubin Direct <0.1 <0.3 mg/dL Bilirubin Total 0.3 <1.5 mg/dL ALP 119 32 - 126 U/L ALT 58 (H) 10 - 52 U/L AST 23 10 - 39 U/L Total Protein 7.3 6.4 - 8.3 g/dL [facility] 7 - ED Collection Time: 04/25/21 2:36 AM Result Value Ref Range Sodium 143 135 - 145 mmol/L Potassium 4.3 3.5 - 5.0 mmol/L Chloride 110 (H) 98 - 108 mmol/L CO2 27 21 - 31 mmol/L Glucose 99 70 - 99 mg/dL BUN 9 7 - 25 mg/dL Creatinine 1.20 0.70 - 1.30 mg/dL Bun/Crea Ratio 8 Osmolality (Calculated) 298 278 - 305 mOsm/kg Anion Gap 10 7 - 17 mmol/L eGFR, CKD-EPI, Male 80 >=60 mL/min/1.73m2 ALCOHOL (ETHANOL),BLOOD Collection Time: 04/25/21 2:36 AM Result Value Ref Range Alcohol, Serum 245 (H) <10 mg/dL ACETAMINOPHEN LEVEL Collection Time: 04/25/21 2:36 AM Result Value Ref Range Acetaminophen <10.0 Therapeutic Range: 10-32 mcg/mL mcg/mL Icterus 0 SALICYLATE LEVEL Collection Time: 04/25/21 2:36 AM Result Value Ref Range Salicylate <5.0 Therapeutic Range: 20.0-30.0 mg/dL mg/dL CBC AND ELECTRONIC DIFF Collection Time: 04/25/21 2:36 AM Result Value Ref Range WBC Count 6.96 3.73 - 10.10 K/uL RBC Count 5.31 4.38 - 5.83 M/uL Hemoglobin 15.8 13.4 - 16.8 g/dL Hematocrit 45.1 39.6 - 48.8 % Mean Cell Volume 84.9 79.0 - 94.5 fL Mean Cell Hgb 29.8 26.1 - 33.3 pg Mean Cell Hgb Conc 35.0 31.9 - 36.5 g/dL RBC Distribution 13.0 10.9 - 14.3 % Platelet Count 250 146 - 337 K/uL Mean Platelet Volume 8.5 (L) 8.7 - 12.3 fL DIFF STATUS Electronic Differential Segs + Bands Auto 44.9 % Immature Grans % 0.3 % Lymphocyte % Auto 38.9 % Monocyte % Auto 13.5 % Eosinophil % Auto 2.0 % Basophil % Auto 0.4 % Nucleated RBC 0.0 <=0.2 /100 WBC Segs + Bands,Absolute Auto 3.12 1.57 - 6.19 K/uL Immature Grans Absolute <0.04 <=0.08 K/uL Abs Lymph Auto 2.71 0.83 - 3.57 K/uL Abs [place] Auto 0.94 (H) 0.24 - 0.93 K/uL Abs Eos Auto 0.14 0.00 - 0.48 K/uL Abs Baso Auto <0.04 0.00 - 0.09 K/uL NOVEL CORONAVIRUS PCR Collection Time: 04/25/21 2:36 AM Specimen: NASOPHARYNGEAL; Fluid/Swab Result Value Ref Range SARS-COV-2 NOT DETECTED NOT DETECTED HIV 1 AND 2 ANTIBODIES Collection Time: 04/25/21 2:36 AM Result Value Ref Range HIV-1/HIV-2 Ab With p24 Antigen Non Reactive Non Reactive DRUGS OF ABUSE SCREEN 10, URINE Collection Time: 04/25/21 7:37 AM Result Value Ref Range Amphetamine/Methamphetamine Negative Cutoff: 500 ng/mL Barbiturates Negative Cutoff: 200 ng/mL Benzodiazepines Negative Cutoff: 200 ng/mL Buprenorphine Negative Cutoff: 5 ng/mL Cannabinoids (Marijuana) Negative Cutoff: 50 ng/mL Cocaine Negative Cutoff: 150 ng/mL Fentanyl Negative Cutoff: 1 ng/mL Methadone Negative Cutoff: 300 ng/mL Opiates Negative Cutoff: 300 ng/mL Oxycodone Negative Cutoff: 100 ng/mL TSH W/FT4 REFLEX Collection Time: 04/26/21 5:39 AM Result Value Ref Range TSH 1.363 0.550 - 4.780 uIU/mL SYPHILIS AB W/REFLEX RPR Collection Time: 04/26/21 5:39 AM Result Value Ref Range Syphilis IgG/IGM Total Non Reactive Non Reactive HIV 1 AND 2 ANTIBODIES Collection Time: 04/26/21 5:39 AM Result Value Ref Range HIV-1/HIV-2 Ab With p24 Antigen Non Reactive Non Reactive Studies pending at time of discharge: none If applicable, you may obtain results of pending studies by contacting your treatment team doctor and/or rn social work at: Third Floor: Medication Safety Take your medication every day, even if feeling well. Do not take extra doses or skip doses. Keep a list of your medications, including fyyd-cuh-bqcimmd, herbal, vitamin, and dietary supplements. Also, include medications you cannot take due to allergic reactions. It is easy to mistake one pill or bottle for another. Double-check the label and dosing schedule before taking. Using a pill box can be helpful. Use phone/watch/tablet applications or alarms, calendars, or medication journals to remember to take your medications each day as scheduled. If you miss a dose of your medication ask your doctor or pharmacist what to do. If you take too much medication or do not feel well after taking medication, call your doctor or pharmacist, go to nearest emergency department, or call poison control for advice. Store your medications as instructed by a pharmacist and keep them in original containers, in a secure area, and away from children and others. Do not share medications prescribed for you with anyone else or take medications prescribed to others. Talk with the doctor or pharmacist about possible medication interactions, side effects, whether totake medication with or without food, and if certain foods should be avoided. medications or those no longer prescribed should be discarded. A pharmacist can direct you how to safely dispose of or unused medications. Medications can affect your alertness, reaction time, and judgment. This may impair your ability todrive or operate equipment safely. Be sure to use caution and seek advice from your doctor before driving, especially when taking a new medication or if changes in dosing occur. Avoid use of alcohol, nicotine, and drugs so that your medications can be effective. If you do use these substances, talk with your doctor about options to help you stop or lessen use. Medications can be dangerous to an unborn baby. Talk with your doctor if you are considering becoming, think you might be, or are . Prescribed medications and aqfn-dke-usfvcsk substances, such as acetaminophen (Tylenol), Ibuprofen,and aspirin can be dangerous and cause if not used correctly. Please be sure to read labels and use as directed. Be sure to attend appointments and receive recommended tests after discharge from the hospital. REASON FOR ADMISSION: Mckinley Roman is a 36 y.o. male with a past psychiatric history notable for Depression vs Bipolar II disorder, alcohol use disorder, cocaine use disorder, and methamphetamine use disorder presenting to the ED involuntarily on a [place] Slip (application for involuntary admission)on 04/25/2021 with concern for suicidal ideation and threats. Per the pink slip, the police responded in the community where the patient was documented to be threatening to slit his throat and put a knife in his mouth with a knife. Per ED nursing notes, the patient endorsed hearing command AH ofvosharif telling him to grab a knife and slit his throat. PSYCHOSOCIAL ISSUES: Chronic nature of illness RECOMMENDATIONS: Please continue taking your medications as prescribed. Follow up with your outpatient psychiatric treatment providers as discussed. Utilize your supports and safety plan as needed. Six Ways To Practice Grounding that can help with Anxiety and intense emotions BODY: Lay on the ground, press your toes into the floor, or squeeze a stress ball or playdough 5 SENSES: Wear your favorite sweatshirt, use essential oils or make a cup of tea SELF-SOOTHE: Take a shower or bath, Find a grounding object ( pillow, stuffed animal or blanket), light a candle OBSERVE: describe an object in detail, Color, texture, shadow, light and shape BREATHE: Practice 4-7-8 breathing - inhale 4 sec., hold for 7 sec and then exhale for 8. DISTRACT: Find all the squares or green objects in the room, count by 7's The four garcía treatment focuses to continue to work on: 1. Medication Compliance - Take your medications as Prescribed and do not stop any medication unless approved by your outpatient provider. Be open and honest with your providers on any side effects or change in mood or behaviors. Even when you feel like your doing great - do not go off medications without talking to your provider. 2. Treatment Compliance: Follow up with all outpatient appointments. 3. Sleep - Getting a good nights rest is important to your mental and physical well being. 4. Exercise - Move your body: Take a walk or run. Join a gym or exercise group. Consider Yoga. f you should have any questions or concerns, please contact: [facility] Psychiatric Services (24 Hours) [phone] Attending Psychiatrist: Dr Sanches or Dr Pulido [phone] Social Workers: GEETHA Markham [phone] Medication Assistance resources if needed: [facility] for Prescription Assistance at or www.pparx.org [place]'s Best Rx at or www.[place]iobestrx.org www.HoverinkRx.Healthcare Bluebook is a site with many valuable coupons Peer Center - (Peer support drop-in center) - Consider for additional support and socialization. Call to confirm hours and for additional information or activity information. EAST Location - [address] [facility] # [phone] M - F (7am to 11pm) Sat/Sun 9am - 9pm Holidays 9am-7pm NORTH Location - [address] [place] [address] # [phone] M - T (10am to 6pm) Sat 11am - 5pm Closed Sundays and s Housing: Call for a fpc bed at # [phone] if needed. If you have an income: Consider [employer] housing # [phone] Juan Miguel Ybarra [place] ( [place]) # [phone] [employer] [facility]Men[facility] - [address] Call # [phone] x [phone]. You can apply in person Mon - 1-4pm [employer] (Woman) - [address] Call # [phone] x [phone] [facility])- The National [place] for Mental Illness ( patient and family education offered) Address: [facility]) [address] [place] [address], [address] [place] [address] Email Address: [email or web address] Website: http://www.[facility].org Advanced Directives: Pt has NO advanced directive and is not interested in additional information. Smoking: Pt has voiced no interest in smoking cessation counseling at this time. If you or someone you know uses tobacco, talk to your doctor about medicines and other aids to helpyou quit or utilize any of the below resources as needed Resources for Smoking Cessation: [place] Tobacco Quit Line - 5-295-OAWA-NOW ( ) is a toll-free telephone counseling service that connects those who want to quit using tobacco with trained counselors who guide and support them through the process. [place] [employer] s Kick the Habit - Call the [place] [employer] s quit line at for resources or to talk with a counselor near you. [place] [employer] - Provides tools for quitting and tips on how to handle stress associated with quitting. Visit http://www.americanheart.org for smoking-related cardiovascular diseases information. [place] [employer], [place] From Smoking (FFS) - An online program specifically for those who want to quit smoking. Visit http://www.ffsonline.org/ or call 684-427-5002. Smokefree.gov - An online guide that includes professional support, a ennb-zw-nvfy plan for quitting and tips for fighting the urge to smoke. Go to www.smokefree.gov for more information. The [facility] [employer] [facility] Tobacco Cessation Clinic - Provides individual counseling andpersonal follow-up for those who wish to stop smoking or stop using any form of tobacco. Individualsmay referthemselves to the clinic or be referred by their dentist, dental hygienist, physician, nurse or other healthcare professional. For more information, visit http://dent.[facility]/Outreach/tobacco_cessation_clinic.php. Substance Abuse: yes - [facility] Substance abuse outpatient treatment options: [facility] [phone] (walk-in 8am-1pm Mon-Fri to [address], [place]) [facility] [phone] or [phone] [facility] [phone] [facility] [phone] [facility] [phone] [facility] [phone] Comp Drug #[phone] [facility] Departments Drug and Alcohol program [address] [facility] [phone] Residential / Rehabs: [facility] ([place], [place]) # [phone] [facility] ([place], [place]) # [phone] [facility] addiction Center #[phone] [place] [facility] ( private insurance only) # [facility] ( [facility]) #[phone] [facility] [phone] (call by 830am daily or walk-in 8am-1pm to [address] [place], [place]) [facility] - [phone] [facility] [phone] [facility] [phone] [facility] # [phone] [facility] ([address] [place], [place] [address]) # [phone] [facility] [address] # [phone] [facility] [place] # [phone] or [phone] Support groups : Alcoholics Anonymous # [phone] Narcotics Anonymous # [phone] Rashaad /Bruna (family support) # [phone] *Obtaining a sponsor is recommended* *Abstain from all alcohol and drug use* (Call any of the programs above if interested - They will want to hear from you directly) 12-Step Recommendations: Exercise helps to decrease cravings, therefore exercise as tolerated. Abstain from all mood altering chemicals. Attend a minimum of three 12-Step meetings per week. Make it a goal to attend 90 meetings in 90 days. Ask for a temporary sponsor at your first meeting. Get a sponsor and contact them daily so you can work the 12 Steps together. Practice using HALT by making sure you are not getting too Hungry, Angry, Lonely, or Tired. Avoid people, places, and things that trigger you to use. Read The Big Book. Please utilize your SAFETY PLAN if needed: 1: Warning Signs-thoughts, images, mood and/or behaviors that you experience when you start to think about suicide or feel extremely depressed: Lack of sleep stress 2: Internal Coping Strategies-Things I can do to take my mind off my problems without contacting another person: Work out Exercise - lift weights Canoe sports 3. Support Contact - People (family/friends) and social settings that provide distraction: Go outside The Warm Line: [phone]-[phone] (0023) 10pm - 2am Daily 4. Support Agency Contact - Professional organizations whom I can ask for help: [facility] staff [phone] [facility] (Phone: # [phone]) Helpful Phone Numbers [facility]: [phone], option 1 Suicide Prevention Lifeline: 6-661-550-TALK (8255) Suicide Hotline: 999.652.4667 Seniors Suicide Hotline: 137.557.3257 Teen Suicide Hotline: 251.400.4414 [facility]: [phone] (free counseling) Local Emergency Service: Emergency Department at [facility] Emergency Services Address: [address] [facility], [place], [place] [address] Emergency Services Phone: 5: Making the environment safe: 1. Check the home carefully for items that need to be removed and thrown away or stored at another location. 2. Remove all firearms (even antiques ones that you think don't work). 3. Lock away ALL medicines including over the counter ones. Lock up and monitor medicines that are prescribed and must be taken. 4. Remove or lock up any toxic materials. Why should I use the Safety Plan? The Safety Plan helps prevent a suicidal crisis from escalating so that you do not act on urges to self-harm. Acute suicidal crises, when people are most in danger of acting on suicidal feelings, often last only for a brief time. The Safety Plan helps you get through this time without making a suicide attempt. When should I use my Safety Plan? You should use your Safety Plan whenever you recognize any of your personal warning or danger signs that are listed on the Safety Plan. How should I use the Safety Plan? Once you recognize your warning signs, follow the specific instructions that are described on each step of your Safety Plan. If doing things on one step doesn t helpto reduce the crisis, then go to the next step until the crisis has lessened. Where should I keep my Safety Plan? You should keep your Safety Plan in a place where you are able to easily find it and use it. Some people keep their Safety Plans at home and other people carry it with them in their purse, wallet, pocket or cell phone. Should I share my Safety Plan with others? Sometimes it is helpful to share your Safety Plan with afamily member or close friend who can help you during a crisis. What do I do if I lose the Safety Plan? Many people make copies of their safety plan or keep a copyon their cell phone. Does the Safety Plan work? Recent research has been conducted that supports the effectiveness of the Safety Planning. Individuals who received the Safety Plan Intervention were less likely report suicidal behaviors during follow-up than individuals who did not receive the intervention. You are scheduled to see Nathalie on 05/07 at 4pm for telehealth appt through [facility] (Best number to reach Mckinley is call Kelli ascencio at [phone] ( #9 customer orders clerk and ask for pt and explain why calling)) If in the event you are unable to follow through with aftercare or are in acute crisis our [facility] ([facility]) clinic is available to serve you. The Behavioral Health Immediate Care clinic ([facility]) is in outpatient behavioral health program that offers in-person or virtual medication management and therapy appointments for patients needing services bridged until they meet with their outpatient provider, as well as for those needing an appointment for urgent needs. Services may be provided on the same-day basis. Scheduled and walk-in appointments available. Hours of operation Wednesday - Wednesday 11:00 a.m. - 7:00 p.m. by appointment To schedule an in-person or virtual appointment call [phone]. Walk-in appointments also available Wednesday - Wednesday 11:00 a.m. to 5:30 p.m. or until appointments are full. Location [facility] 1st Floor (check-in at [facility] desk upon arrival) [address] [place] [address] Terms of services: Receive [facility] services for two months or until appointment with ongoing outpatient provider, whichever is sooner. Payment: Most Medicare, Medicaid, and private insurance is accepted. Self-pay also available. LETTER OF HOSPITALIZATION: Date: 05/01/2021 To Whom It May Concern: Mckinley Roman was hospitalized at [facility] from 04/25/2021 to 05/01/2021 __X___ Please excuse any missed appointments or court dates and allow them to be rescheduled as soon as possible. ___X__Please excuse any fees associated with missed payments or bills during this hospitalization. __X__ Please excuse from any missed time at work during this hospitalization. __X___ Please excuse from any missed classes and allow time to make up any missed assignments. If you should have any questions please call #[phone]. SincerelyPatricia LISW-S [facility] Clinical Die Assembler Attending Physician: Rosario Sanches MD [facility] counseling note* Group Note - LEODAN Flores - 04/28/2021 3:37 PM EDT CORE Programming Group Therapy Progress Note Group Topic: BH Celebrate Success Date: 04/28/2021 Start Time: 1500 End Time: 1510 Total Time: 10 min of group time Telephone Operators Supervisor: LEODAN Flores Department: Patient [facility] Clinical Users Patients were asked to participate in a brief wrap up group at the end of day programming. This group focused on debriefing the groups attended and evaluating progress. Patients were encouraged to identify if they attended scheduled groups. Patients were encouraged to share if they met their goal from Greet the Day (9 AM/10 AM group). Patients were asked to scale their successes of the day on a 10 scale. Patients who met their goals were rewarded at the end of group for their goal successes. Patient was present and an active participant in the group. Patient identified feeling their progress was a 9 on a 10 scale. Overall patient appeared satisfied regarding progress made in programming and in meeting treatment goals related to discharge. LEODAN Flores 04/28/2021 [facility] [place] [facility]03-21-2022 Group counseling note* Group Note - LEODAN Flores - 04/28/2021 3:23 PM EDT CORE Programming Group Therapy Progress Note Group Topic: States of Mind - Dialectical Behavioral Therapy Mindfulness Date: 04/28/2021 Start Time: 1000 End Time: 1045 Total Time: 45 min of group time Telephone Operators Supervisor: LEODAN Flores Department: Patient [facility] Clinical Users Group began with a check in and ice breaker. Participants then discussed Mindfulness and states of mind: emotion mind, reasonable mind, and meneses mind. Group participants practiced a grounding exercise engaging in the 5 senses then discussed meneses mind skill. Telephone Operators Supervisor encouraged peers to give positive feedback and support to others sharing throughout the group. Pt was an active participant in group. Engaged and focused throughout and shared in group discussion. Appeared motivated and willing throughout. Met group expectations. LEODAN Flores 04/28/2021 [facility] [place] [facility]03-21-2022 Group counseling note* Group Note - Andi Garzon - 04/28/2021 3:03 PM EDT CORE Programming Group Therapy Progress Note Group Topic: BH Guided Relaxation - Dialectical Behavioral Therapy Mindfulness Date: 04/28/2021 Start Time: 1404 End Time: 1424 Total Time: 20 min of group time Telephone Operators Supervisor: Andi Garzon Department: Patient [facility] Clinical Users Group began with a check in and ice breaker. Group clay processing labourer reviewed with patients a handout defining mindfulness and why it is important. Telephone Operators Supervisor then engaged the group in a guided mediation online to experience being mindful and present in the moment while also focusing on the breath. After the meditation was complete we reviewed how and where to use today s skill outside of the hospital. Telephone Operators Supervisor encouraged peers to give positive feedback and support to others sharing throughout the group. [x] Patient was an active listener and able to meet objectives of the activity [ ] Patient struggled with being an active listener and did not meet objectives of the activity Andi Garzon 04/28/2021 [facility] [place] [facility]03-21-2022 Note* Plan of Care - Martha Marquez RN - 04/28/2021 12:25 PM EDT Nursing care of this patient assumed at 1100. F2F nursing report provided by JASVIR Alexander. Patient isin the dining room, watching tv and interacting with peers. He remains on moderate suicide precautions. Nursing Note Per Tour of Duty Patient Daily Goal(s): refer to care plan goal(s) Psychiatric Assessment Reported and Observed signs and symptoms: Patient is calm, cooperative, and friendly, affect congruent with mood. Grooming and hygiene good, eye contact and posture good, speech wnl for rate and volume. Mckinley denies suicidal and homicidal ideations as well as auditory or visual hallucinations. Hedenies pain. Non-pharmacological interventions and effectiveness: provided emotional support, provided distraction/activity, and encouraged exercise Medications Pharmacological PRNs indications and effectiveness: none requested or required Medication adherence: yes Psychotropic medication side effects: none reported or observed Functional Assessment - Activities of Daily Living Self-care: showered and brushed teeth Socialization (group, peer interactions): attended group and appropriately interacted with peers inmilieu Nutrition and elimination interventions and effectiveness: offered frequent meals/snacks , encouraged fluid intake, and educated on healthy food choices and mindful eating Last Bowel Movement: 04/28/21 Mobility: up for meals and active in milieu Sleep Number of hours this shift: Day Shift 0 Non-pharmacological interventions and effectiveness: reduction in caffeine intake, avoided naps, and bedtime routine Additional Information Problem: Patient Care Overview Goal: Plan of Care Review Outcome: Ongoing Goal: Individualization & Mutuality Outcome: Ongoing Goal: Discharge Needs Assessment Outcome: Ongoing Goal: Interdisciplinary Rounds/Family Conf Outcome: Ongoing [facility] [place] [facility]03-21-2022 Note* Nursing Notes - Benjamin Spears RN - 04/28/2021 10:41 AM EDT Nursing Note Per Tour of Duty Patient Daily Goal(s): refer to care plan goal(s) Psychiatric Assessment Reported and Observed signs and symptoms: Patient visible on the unit and social with select peers.Denies psychiatric symptoms and SI/ HI. Appears anxious, restless and slightly agitated. Non-pharmacological interventions and effectiveness: provided emotional support Medications Pharmacological PRNs indications and effectiveness: none requested or required Medication adherence: yes Psychotropic medication side effects: none reported or observed Functional Assessment - Activities of Daily Living Self-care: cleaned room Socialization (group, peer interactions): attended group and appropriately interacted with peers inmilieu Nutrition and elimination interventions and effectiveness: offered frequent meals/snacks and encouraged fluid intake Last Bowel Movement: 04/26/21 Mobility: up for meals and active in milieu Non-pharmacological interventions and effectiveness: mindfulness Additional Information Minimizes reason for admission. CIWA = 6 for anxiety and agitation. Anxious to meet with treatment team. Perseverating on discharge. Makes needs known. [facility] [place] [facility]03-21-2022 Note* Plan of Care - Benjamin Spears RN - 04/28/2021 10:40 AM EDT Problem: Overarching Goals (Adult) Goal: Adheres to Safety Considerations for Self and Others Outcome: Ongoing [facility] [place] [facility]03-21-2022 Note* Medical Student - Checo Ruiz - 04/28/2021 7:23 AM EDT PROGRESS NOTE/TREATMENT REVIEW 04/28/2021 TREATMENT TEAM Reviewed by Treatment Team, following member present: nurse, rn social work, faculty physician, medical student. Subjective/Interval History/ROS Mckinley Roman is a 36 y.o. M with a past hx of MDD vs bipolar disorder 2, EtOH UD c/b withdrawal seizure, stimulant UD who arrived to [facility] ED via CPD on a pink slip for stating he wanted a knife to cut his throat at a restaurant in the setting of EtOH intoxication and several months of medication noncompliance. In the ED, he attempted to elope several times, his speech was mostly meaningless during triage, he reported auditory and tactile hallucinations, and required emergency PRN medications and seclusion to ensure staff and pt safety. Once sober, he was evaluated psychiatrically; reported that he was blacked out when brought in and recanted SI, he reported depression recently and was in EtOH withdrawal. Interval History: VS: Bradycardic (HR 53), otherwise VSS Labs/Imaging: reviewed, no new labs or imaging Sleep: 6 hours, 15 minutes per chart; good per patient Medications: Compliant besides nicotine patch PRNs: Miralax, simethicone, motrin for medical needs, hydroxyzine for psychiatric needs Behavior: No acute events Subjective: On interview, the patient engages well with the interview team and is willing to meet with the team. Patient says yesterday was pretty good. Says he spent his day reading, watching TV, playing cards, and socializing with others. He slept well and feels rested. Says trazodone has helped, but that his sleep could still improve. Appetite has improved. Denies somatic symptoms - constipation resolvedwith Miralax. Brain fog and anxiety have improved from yesterday. Denies symptoms of alcohol withdrawal. He feels that the Effexor is going well and denies side effects. Describes mood as positive but that he is ready to go. Patient denies alcohol cravings today. Discussed events leading to his hospitalization and mentionsagain that he never had any suicidal ideation while intoxicated. Explains that he left a meeting with his counselor at [facility] to go drink which led to his presentation. States that there is no excuse for me to ever drink or do drugs. Patient does mention that poor sleep is a stressor that often precipitates his depressive symptoms and subsequent alcohol use. Patient is eager to leave but is amendable to staying and voluntarily signed-in during the interview. Team encouraged him to call [facility] to inquire about returning to stay there after discharge. Denies SI / HI / AVH. Review of Systems: Psychiatric: Anxiety: some evident Irritability: some evident Constitutional: No recent change in weight or fever Musculoskeletal: No back, neck, muscle, or joint pain Respiratory: No cough or shortness of breath Cardiovascular: No chest pain, palpitations, or leg swelling Gastrointestinal: No abdominal pain, nausea vomiting, or diarrhea Genitourinary: No pain on urination Neurologic: No dizziness, seizures, or headaches Eyes: No change in vision HENT: No congestion, hearing problem, tinnitus, dysphagia, or sore throat Skin: No rash or wound 24 HOUR LAB RESULTS No results found for this or any previous visit (from the past 24 hour(s)). MEDICATIONS Scheduled: folic acid (FOLVITE) tablet 1 mg, 1 mg, Daily multivitamin w/ minerals (THERAPEUTIC-M) tablet 1 tablet, 1 tablet, Daily naltrexone (DEPADE) tablet 50 mg, 50 mg, Daily nicotine (NICODERM CQ) 7 MG/24HR patch 1 patch, 1 patch, Q24H thiamine tablet 100 mg, 100 mg, Daily traZODone (DESYREL) tablet 50 mg, 50 mg, QHS venlafaxine (EFFEXOR-XR) capsule XR 75 mg, 75 mg, Every BKF PRN: alum/mag hydrox.-simethicone, 30 mL, Q6H PRN benztropine, 1 mg, Q6H PRN Or benztropine mesylate, 1 mg, Q6H PRN haloperidol lactate, 5 mg, Q4H PRN And LORazepam, 2 mg, Q4H PRN And diphenhydrAMINE, 50 mg, Q4H PRN haloperidol, 5 mg, Q4H PRN And LORazepam, 2 mg, Q4H PRN And diphenhydrAMINE, 50 mg, Q4H PRN hydrOXYzine HCl, 25 mg, Q6H PRN ibuprofen, 400 mg, Q6H PRN LORazepam, 1 mg, Q30 MIN PRN Or LORazepam, 2 mg, Q30 MIN PRN LORazepam, 1-4 mg, Q1H PRN melatonin, 3 mg, QHS PRN nicotine, 4 mg, Q2H PRN polyethylene glycol, 17 g, Daily PRN Polyvinyl Alcohol-Povidone PF, 2 drop, PRN PHYSICAL AND MENTAL STATUS EXAM Blood pressure 111/67, pulse 56, temperature 98 F (36.7 C), temperature source Infrared, resp. rate16, height 1.803 m (5' 11 ), SpO2 97 %. Musculoskeletal: gait normal, station is within normal limits; tremor absent Constitutional: well-appearing; fair hygiene; no acute distress Attention/concentration: alert, little distractibility and capable of maintaining prolonged focus, appropriate eye contact Orientation: oriented to self, location, date and situation Mood: Positive Affect: congruent and calm; full-range; appropriate emotional reactivity Motor Activity: normokinetic and neither restless nor sedated Speech: fluent Palestinian, average rate and rhythm, appropriate volume, normal prosody Thought Process: linear, logical and goal-oriented Associations: intact Suicidal Ideation: denied by the patient Homicidal Ideation: denied by the patient Delusions: none evident Hallucination: denies hearing voices, denies seeing visions and not apparently responding to internal stimuli Insight/Judgment: fair insight, fair judgment Memory: remote, recent, working memory all appear intact Language: appropriate for the patient's level of education Fund of knowledge: average for the patient's level of education Cognition: intact, no indication of cognitive disorder DIAGNOSTIC IMPRESSION Mckinley Roman is a 36 y.o. male with a history of MDD vs Bipolar II who is admitted to [facility] with a diagnosis of Depression with suicidal ideation. Since admission, the patient has isolated to self but has been able to get his needs met. He has expressed some insight into his EtOH use and wants to return to treatment. On Day 3 of admission, he is eager to leave but amenable to staying per the team's recommendation. No concern for symptoms of alcohol withdrawal at this time. Continues to deny SI and mood has stabilized. Bipolar disorder is less likely based on patient's history. Treatment Plan Update/Medical Decision Making The multidisciplinary treatment team continues to implement the following: Psychiatric status The patient s admission and precautionary status, medication administration, and safety since last assessment have been reviewed. Social work continuing to coordinate care and discharge planning and collateral information has been reviewed. Legal Status: Involuntary, pink slip dated 04/25/21; signed-in voluntarily 04/28 Continued Stay Criteria (select all that apply) Patient is progressing in treatment but has not yet acheived a base line and Clinical evidence thatless intensive treatment will result in unwanted regression Psychiatric decision making and treatment modifications with consent from patient/guardian are as follows: 04/25: restart venlafaxine 37.5 mg daily 04/26: increase venlafaxine to 75 mg daily, add trazodone 50 mg for insomnia 04/28: Start naltrexone 50 mg daily; increase trazodone to 100 mg for insomnia #Depression with suicidal ideation - Venlafaxine 75 mg daily - Potential discharge (05/01) pending clinical course #Insomnia - Increase trazodone to 100 mg at bedtime Substance use disorder Nicotine replacement treatment was provided, in form of patch and gum Switch patch to morning to eliminate disruption at night #EtOH UD - Discontinue CIWA - thiamine and folate - MVI w minerals Medical status Continue monitoring vital signs, current DVT prophylaxis, and diet Laboratory studies, radiology results, ECG, or other information reviewed and discussed with patient and plan to address comorbid medical conditions as follows: #Rib fracture - pain management ok so far with usual PRNs Level of Observation, Suicide Risk Assessment and Safety Planning: The patient DOES NOT have medical equipment or a medical bed. Current risk of suicide is moderate as evidenced by recent progress and current mental status examination Safety plan will be completed prior to discharge. Current level of precautions: Moderate-risk Suicide (twice in 15 minutes) I re-certify that this inpatient psychiatric hospital admission is medically necessary for diagnostic study and/or active treatment, which could reasonably be expected to improve the patient's condition. Checo Ruiz, MS3 Associated attestation - Michael Degroot MD - 04/28/2021 4:27 PM EDT This medical student note was used for education purposes only. Please refer to resident/attending physician's notes from 04/28/21 for updates to history, assessment, and treatment plan. Michael Degroot MD PGY2, Pager [phone] [facility] Department of Psychiatry and Behavioral Health [facility] [place] [facility]03-21-2022 Note* Nursing Notes - Nadia Dalal RN - 04/28/2021 5:49 AM EDT [id number]: Patient appears to have slept for 6.15 hours overnight without incident. CIWA 0, VSS. Safety checks maintained per order. [facility] [place] [facility]03-20-2022 Note* Nursing Notes - Prisca Bryan RN - 04/27/2021 10:49 PM EDT HS medications administered with no problems including PRN simethicone for indigestion. Had prn darius lax earlier with positive effects. Pt still on CIWA's though has been scoring zero's through out the shift.Safety in place. [facility] [place] [facility]03-20-2022 Note* Nursing Notes - Prisca Bryan RN - 04/27/2021 5:44 PM EDT Pt came to this nurse complaining of feeling some back up though had a BM today. Darius lax administered or else no other physical discomfort or pain has been voiced out. Safety in place. [facility] [place] [facility]03-20-2022 Note* Therapy Note - Pauly Kwon, FLOORING MACHINE FEEDER - 04/27/2021 12:48 PM EDT Recreation Therapy Evaluation General Stated Reason for Admission: I had a severe relapse with drinking, blacked out and do not rememberanything. I promise though I am not suicidal. Evaluation Type: Initial Time In: 1140 Time Out: 1200 Total Visit Time: 20 minutes Prior Hospitalization Review Leisure Interests: Active sports participation, Animals/pets, Cooking/baking, Games/cards, Jogging/running, Music, Outdoor activities, Reading, Recreational walking, Regular physical exercise, Shopping, Time with family/friends, TV/movies, Video games, Writing/journaling Degree of Recreation Participation: Decreased (Little isolation because I was at [facility]) Education: Completed High School, Some College (2 years of college) Work : Not currently working Typical Day: Was at [facility] for 3 days, go to the park, be active, AA meetings, but I haven'tbeen sleeping well Living Situation: I was at [facility] before I left to drink Transportation: security support analyst ([facility] had vans that took me places) Support System: [facility], Appearance: Appropriate Leisure Education Awareness of Community Resources: Yes Utilization of Community Resources: Community events, Entertainment, Library, Movie theaters, [place], Rec/Fitness center, Baptism/spiritual organization, Restaurants, Shopping centers, Support groups, Volunteering (AA, counseling, Celebrate Recovery) Recreation Participation Is leisure time important?: Yes Are you satisfied with your current leisure lifestyle?: Other (Could be more stable and frequent) Preferred style of leisure interaction?: Family, Alone, Friends Activities you would like to learn: Travis diving, bungie jumping Barriers to Recreation Participation: Money, Transportation, Substance Use (Poor choices) Participation Assessment: appropriate Current Social Emotional Assessment Affect: appropriate Appropriate Eye Contact: Good Frustration Tolerance: Good Appropriate Social Interaction: Good Withdrawn: No Rate Your Self-Esteem: 7 Communication Status: No deficits noted What do you value?: (Relationship with God and my dad, What my mom taught me before she passed, getting one day) Patient's Identified Coping Strategies: Leisure interests, Meditation/relaxation, Substance use (drinking, lifting weights, walking outside, jog, sports, prayer, Bible reading, AA literature) Recreation Therapy Restrictions/Precautions Recreation Physical/Sensory Motor Limitations: None Recreation Therapy Goals Patient's Stated Goals for Hospitalization: get back to [facility], get remotivated. RT Goals/Interventions Recommended: develop interpersonal skills, develop positive coping skills, encourage development of self- control, engage in relapse prevention activities in order to reinforceimportance of sobriety, identify 3 - 5 new coping strategies to manage mental illness, identify 4 -5 leisure interests in order to improve engagement in meaningful activity Note: Patient was agreeable to complete the TR Assessment. Patient appeared congruent in affect. Patient was calm, pleasant, and appropriate during the assessment. Patient shared he was at [facility] for 3 days, left to go drink, blacked out and does not remember anything but stated he wants to note he is not suicidal. Patient shared he wants to go back to [facility]. Patient stated he needs support so he can be more stable and get remotivated. Discussed TR roles and treatment goals. Patient declined any community resources needed at this time. I used a facemask and protective eye wear in today's patient interaction. I was assisted by no one during this visit BASIA Landa [facility]03-20-2022 Note* Plan of Care - Prisca Bryan RN - 04/27/2021 10:59 AM EDT Problem: Patient Care Overview Goal: Plan of Care Review Outcome: Ongoing Goal: Individualization & Mutuality Outcome: Ongoing Goal: Discharge Needs Assessment Outcome: Ongoing [facility]03-20-2022 Note* Nursing Notes - Prisca Bryan RN - 04/27/2021 8:40 AM EDT Nursing Note Per Tour of Duty Patient Daily Goal(s): refer to care plan goal(s) Psychiatric Assessment Reported and Observed signs and symptoms: Upon approach, pt was in the living room walking around. Alert, pleasant and am scheduled medication compliant. Denied SI,HI,AV,AH, but endorsed anxiety (8/10), depression and pain(8/10). PRN's see mar administered. Verbalized having a BM yesterday, denied being constipated. Will continue support, maintain for safety and monitoring. Non-pharmacological interventions and effectiveness: provided emotional support, reviewed coping strategies, reinforced safety plan, provided distraction/activity, offered quiet time alone , providedpsychoeducation and offered to call support Medications Pharmacological PRNs indications and effectiveness: see mar Medication adherence: yes Psychotropic medication side effects: none reported or observed Functional Assessment - Activities of Daily Living Self-care: none observed Socialization (group, peer interactions): appropriately interacted with peers in [facility] Nutrition and elimination interventions and effectiveness: offered frequent meals/snacks , encouraged fluid intake, encouraged exercise and educated on healthy food choices and mindful eating Last Bowel Movement: 04/26/21 Mobility: up for meals and active in milieu Sleep Number of hours this shift: Day Shift . Non-pharmacological interventions and effectiveness: mindfulness , progressive muscle relaxation and guided imagery Additional Information Pt on CIWAs, scored a zero at the moment. [facility]03-20-2022 Note* Nursing Notes - Felipa Abernathy RN - 04/27/2021 6:37 AM EDT [id number] Pt Nicoderm patch not given pt was sleeping, appears to have slept for 8 hours,safety checks maintained,will continue to monitor. [facility]03-20-2022 Note* Plan of Care - Felipa Abernathy RN - 04/27/2021 1:22 AM EDT Problem: Overarching Goals (Adult) Goal: Optimized Coping Skills in Response to Life Stressors 04/27/2021 012 by Felipa Abernathy RN Outcome: Not Met This Shift 04/26/20211946 by Felipa Abernathy RN Outcome: Ongoing [facility]03-19-2022 Note* Plan of Care - Felipa Abernathy RN - 04/26/2021 7:47 PM EDT Problem: Overarching Goals (Adult) Goal: Adheres to Safety Considerations for Self and Others Outcome: Ongoing Problem: Overarching Goals (Adult) Goal: Optimized Coping Skills in Response to Life Stressors Outcome: Ongoing [facility]03-19-2022 Note* Nursing Notes - Felipa Abernathy RN - 04/26/2021 5:14 PM EDT Nursing Note Per Tour of Duty [id number] Patient Daily Goal(s): refer to care plan goal(s) Psychiatric Assessment Reported and Observed signs and symptoms: Pt mostly isolates to room ,comes out for needs,noted pacing unit, requested and reeived Atarax for anxiety,denies SI/HI Non-pharmacological interventions and effectiveness: provided emotional support, reviewed coping strategies and reinforced safety plan Medications Pharmacological PRNs indications and effectiveness: none requested or required Medication adherence: yes Psychotropic medication side effects: none reported or observed Functional Assessment - Activities of Daily Living Socialization (group, peer interactions): isolated in room Nutrition and elimination interventions and effectiveness: offered frequent meals/snacks Last Bowel Movement: 04/24/21 Mobility: up for meals Non-pharmacological interventions and effectiveness: avoided naps [facility]03-19-2022 Note* Nursing Notes - Ramona Srivastava RN - 04/26/2021 12:17 PM EDT Nursing Note Per Tour of Duty Patient Daily Goal(s): refer to care plan goal(s) Psychiatric Assessment Reported and Observed signs and symptoms: Pt cooperative with VS, labs, and medications, c/o pain in ribs on right side, pt reported ribs are fractured, pain with movement 08/17, denied SI/HI, denied AH/VH. Pt is pleasant, good hygiene, eats meals, disappointed in himself for leaving rehab and relapsing, is wanting to try again, mostly isolated to room. Non-pharmacological interventions and effectiveness: provided emotional support Medications Pharmacological PRNs indications and effectiveness: Atarax for anxiety, Ibuprofen for rib pain Medication adherence: yes Psychotropic medication side effects: none reported or observed Functional Assessment - Activities of Daily Living Self-care: brushed teeth Socialization (group, peer interactions): in milieu, keeps to self. Nutrition and elimination interventions and effectiveness: offered frequent meals/snacks and encouraged fluid intake Last Bowel Movement: 04/24/21 Mobility: active in milieu Sleep Number of hours this shift: Day Shift napped during shift Non-pharmacological interventions and effectiveness: None Additional Information Pt on moderate suicide and CIWA precautions, 2xQ15 min checks, CIWA - 2. [facility]03-19-2022 Note* Plan of Care - Ramona Srivastava RN - 04/26/2021 12:17 PM EDT Problem: Patient Care Overview Goal: Plan of Care Review Outcome: Ongoing Goal: Individualization & Mutuality Outcome: Ongoing Goal: Discharge Needs Assessment Outcome: Ongoing Goal: Interdisciplinary Rounds/Family Conf Outcome: Ongoing Problem: Patient Care Overview Goal: Plan of Care Review Outcome: Ongoing Goal: Individualization & Mutuality Outcome: Ongoing Goal: Discharge Needs Assessment Outcome: Ongoing Goal: Interdisciplinary Rounds/Family Conf Outcome: Ongoing Problem: Overarching Goals (Adult) Goal: Adheres to Safety Considerations for Self and Others Outcome: Ongoing Goal: Optimized Coping Skills in Response to Life Stressors Outcome: Ongoing Goal: Develops/Participates in Therapeutic [place] to Support Successful Transition Outcome: Ongoing [facility]03-19-2022 Note* Nursing Notes - Nita John RN - 04/26/2021 1:25 AM EDT Nursing Note Per Tour of Duty 22:20-0700 Patient Daily Goal(s): refer to care plan goal(s) Psychiatric Assessment Reported and Observed signs and symptoms: Patient arrived on unit at 22:20 pm on wheelchair. Guarded and restricted on approach. Per report, patient was pink slipped due to Suicidal ideation but stated he blacked out due to intoxication and can't remember incident leading him to ED. Patient denies SI/HI and AH/VH. Motrin given at for pain 5/10 on ribs and arms, positive effect. No distress noted. Non-pharmacological interventions and effectiveness: provided emotional support and offered to callsupport Medications Pharmacological PRNs indications and effectiveness: none requested or required Medication adherence: yes Psychotropic medication side effects: none reported or observed Functional Assessment - Activities of Daily Living Self-care: Clean Socialization (group, peer interactions): Patient new admit Nutrition and elimination interventions and effectiveness: offered frequent meals/snacks and encouraged fluid intake Last Bowel Movement: 04/24/21 Mobility: up for meals Sleep Number of hours this shift: Qa Intern 7 hours 45 min Non-pharmacological interventions and effectiveness: reduction in caffeine intake and bedtime routine Additional Information N/A [facility]03-19-2022 Note* Plan of Care - Ntia John RN - 04/26/2021 12:14 AM EDT Problem: Patient Care Overview Goal: Plan of Care Review Outcome: Met This Shift Problem: Overarching Goals (Adult) Goal: Optimized Coping Skills in Response to Life Stressors Outcome: Met This Shift [facility]03-18-2022 Emergency department Note* Natalie Tomas RN - 04/25/2021 8:37 PM EDT Report called to Nita TAY, all questions and concerns addressed [facility]03-18-2022 Emergency department Note* Natalie Tomas RN - 04/25/2021 8:37 PM EDT Report called to Nita TAY, all questions and concerns addressed * Kasia Segura RN - 04/25/2021 12:18 PM EDT Pt fidgiting and restless, states extremely high anxiety * Kasia Segura RN - 04/25/2021 12:12 PM EDT Pt up ad martinez. Pt states he has no thoughts of hurting himself or anyone else * UZIEL Moon - 04/25/2021 7:25 AM EDT Bed: E063 Expected date: Expected time: Means of arrival: Comments: Seclusion * Rob Hager RN - 04/25/2021 6:29 AM EDT Patient was yelling,threatening staff,disturbing the whole unit and demanding to leave.Patient escorted to seclusion and medicated.Charge nurse notified. * Radha Slaughter RN - 04/25/2021 6:14 AM EDT Bed: ESEC Expected date: Expected time: Means of arrival: Comments: * Rob Hager RN - 04/25/2021 6:01 AM EDT Patient is demanding for his belongings.He states he wants to leave.MD and security notified. * Kayla Wang MD - 04/25/2021 1:29 AM EDT ED Attending Note CHIEF COMPLAINT Suicidal HPI Mckinley Roman is a 36 y.o. male who presents with SI. Pt denies this but pink slip says held knife at his throat. Hallucinations. Used alcohol today he says. Review of systems as documented in above HPI and in resident provider chart. All other systems reviewed and negative unless otherwise documented. Past Medical History: Diagnosis Date Bipolar 1 disorder Depression Social History Socioeconomic History Marital status: Single Spouse name: Not on file Number of children: Not on file Years of education: Not on file Highest education level: Not on file Occupational History Not on file Tobacco Use Smoking status: Current Every Day Smoker Types: Cigarettes Smokeless tobacco: Never Used Vaping Use Vaping Use: Never used Substance and Sexual Activity Alcohol use: Yes Drug use: Yes Types: Methamphetamines Sexual activity: Not on file Other Topics Concern Not on file Social History Narrative Not on file Social Determinants of Health Financial Resource Strain: Not on file Food Insecurity: Not on file Transportation Needs: Not on file Physical Activity: Not on file Stress: Not on file Social Connections: Not on file Intimate Partner Violence: Not on file Housing Stability: Not on file Past medical and social histories reviewed and verified by me. PHYSICAL EXAM VITAL SIGNS: BP 128/80 Pulse 70 Temp 97.4 F (36.3 C) (Infrared) Resp 18 Ht 1.803 m (5' 11 ) SpO2 92% Smoking Status Current Every Day Smoker Gen: well appearing Respiratory: No increased WOB, Normal breath sounds, No wheezing, no rales, No chest tenderness. Cardiovascular: Normal heart rate, Normal rhythm, No murmurs, No rubs, No gallops. GI: Soft, No tenderness, No masses, No pulsatile masses. Neuro: drowsy, but answers questions, otherwise Grossly neurologically intact ED COURSE & MEDICAL DECISION MAKING DDx: depression, intoxication, doubt ora, psyhcosis On 04/25/2021 I saw and examined the patient. I discussed the history and examination with the resident and agree with the plan of care. Pt presents after suicideal gesture/attempt. Intoxicated. Will medically clear when sober. Medication list reviewed. I have personally seen and examined this patient. I have fully participated in the care of this patient. I have reviewed all pertinent clinical information, including history, physical exam and plan with the resident. Part of this documentation was created with voice recognition software and errors may have occurred. Kayla Wang MD 04/26/21 1127 * Rob Hager RN - 04/25/2021 12:33 AM EDT Patient states he is hearing voices telling him to grab a knife and slit his throat.He denies HI and VH.He reports he drank a lot of alcohol but he does not the time of his last drink. Patient is pink slipped by [employer]. * DUNCAN Concepcion/YULIET - 04/25/2021 12:27 AM EDT EMERGENCY DEPARTMENT ENCOUNTER CHIEF COMPLAINT Suicidal HPI Mckinley Roman is a 36 y.o. male with a history including bipolar 1, depression who presents with suicidal - patient appears to be answering questions randomly; unclear if history is reliable - presents pink slipped by [employer]; pt stated to police officers that he had a knife and was going to slit his own throat/put a knife in his mouth and cut himself - pt states history of schizophrenia; has not taken medications for months - pt denies SI/HI - denies prior suicidal actions - endorses AH, VH; says he perceives things on my face - denies access to firearms - denies recreational drug use - endorses EtOH use with prior withdrawal seizures; states last drink was few days ago Identify Protective Factors (Protective factors may not counteract significant acute suicide risk factors) Internal: N/A External: N/A ED-SAFE PATIENT SECONDARY SCREENER (ESS-6) This tool should be administered by the provider after a patient endorses active ideation in the past 2 weeks (PSS Item 2= Yes) OR suicide attempt within the past 6 months (PSS Item 3= within past 6 months). Assess the following six indicators using all data available to you, including patient self-report,collateral information, medical record review, and current observations. Each Yes gets a score of1 1. Positive on both safety screener (PSS-3) items - active ideation with a past attempt. Source: safety screening (PSS-3), documented on chart Yes (evidenced by threats made to police) 2. Recurrent or current suicide plan* Suggested wording: Have you been thinking about how you might kill yourself? yes 3. Recurrent or current intent to act on ideation* Suggested wording: Have you had some intention of acting on your thoughts? no 4. Lifetime psychiatric hospitalization Suggested wording: Have you ever been hospitalized for a mental health or substance abuse problem? yes 5. Pattern of excessive substance abuse Suggested Wording: Has drinking or drug abuse ever been a problem for you? Or positive on CAGE or other standardized substance use screener. yes 6. Current Irritability, agitation or aggression Source: clinical observation, collateral report. no A. Assign a score of 1 for each Yes above and combine to obtain a total score. Score: 4/6 B. *Critical Item Review: - Item 2: Suicide plan present? yes - Item 3: Intent present no - Current attempt? no The Purpose of this tool is initial stratification of clinical decision-making and risk mitigation.Not highly accurate prediction of suicide. Stratification instructions are below Stratification and Care Recommendations 1. Check one box in each row based on the score in A and the critical item status in B: Negligible Mild Risk Moderate Risk High Risk A. Score Not applicable (negative on primary screener) ___ 0-2 ___x_ 3-4 ___ 5-6 B. Critical Items ___ no current attempt ___ no current attempt _x__ no current attempt ___ currentattempt ___ no suicide plan or intent ___ no suicide plan or intent __x_ suicide plan or intent ___ suicideplan and intent 2. Conclude risk level based on HIGHEST level category endorsed on any row: ___mild _x__moderate __high 3. Enact mitigation and recommend care appropriate to risk level: Mitigation and Recommended Care Mild Moderate High Constant observation not required Constant observation (1:several), make room safe recommended Constant observation (1:1) and make room safe or ligature resistant room recommend Behavioral health evaluation volutnary Behavioral health evaluation recommended Behavioral health evaluation recommended Suicide Prevention and Mental Health discharge resources Suicide Prevention and Mental Health discharge resources Suicide Prevention and Mental Health discharge resources Safety plan recommended at discharge Safety plan recommended at discharge Safety plan recommended at discharge PAST MEDICAL HISTORY Past Medical History: Diagnosis Date Bipolar 1 disorder Depression SURGICAL HISTORY No past surgical history on file. CURRENT MEDICATIONS No current outpatient medications on file. ALLERGIES Not on File Family history reviewed and noncontributory other than: History reviewed. No pertinent family history. Social history reviewed and noncontributory other than: Social History Socioeconomic History Marital status: Not on file Spouse name: Not on file Number of children: Not on file Years of education: Not on file Highest education level: Not on file Occupational History Not on file Tobacco Use Smoking status: Current Every Day Smoker Types: Cigarettes Smokeless tobacco: Never Used Vaping Use Vaping Use: Never used Substance and Sexual Activity Alcohol use: Yes Drug use: Yes Types: Methamphetamines Sexual activity: Not on file Other Topics Concern Not on file Social History Narrative Not on file Social Determinants of Health Financial Resource Strain: Not on file Food Insecurity: Not on file Transportation Needs: Not on file Physical Activity: Not on file Stress: Not on file Social Connections: Not on file Intimate Partner Violence: Not on file Housing Stability: Not on file REVIEW OF SYSTEMS Review of Systems Unable to perform ROS: Psychiatric disorder PHYSICAL EXAM VITAL SIGNS: BP 128/80 Pulse 70 Temp 97.4 F (36.3 C) (Infrared) Resp 18 Ht 1.803 m (5' 11 ) SpO2 92% Smoking Status Current Every Day Smoker Physical Exam Vitals reviewed. Constitutional: General: He is not in acute distress. Appearance: Normal appearance. He is normal weight. He is not ill-appearing, toxic-appearing or diaphoretic. HENT: Head: Normocephalic and atraumatic. Right Ear: External ear normal. Left Ear: External ear normal. Mouth/Throat: Mouth: Mucous membranes are moist. Eyes: Pupils: Pupils are equal, round, and reactive to light. Cardiovascular: Rate and Rhythm: Normal rate and regular rhythm. Pulses: Normal pulses. Heart sounds: Normal heart sounds. No murmur heard. Pulmonary: Effort: Pulmonary effort is normal. No respiratory distress. Breath sounds: Normal breath sounds. No stridor. No wheezing, rhonchi or rales. Abdominal: General: Abdomen is flat. Bowel sounds are normal. There is no distension. Palpations: Abdomen is soft. There is no mass. Tenderness: There is no guarding or rebound. Hernia: No hernia is present. Comments: Pt says that hurts inconsistently on abdominal palpation; does not appear to be in discomfort; states has hurt for years Musculoskeletal: General: No deformity. Cervical back: Normal range of motion. Skin: General: Skin is warm and dry. Capillary Refill: Capillary refill takes less than 2 seconds. Findings: No rash. Neurological: Mental Status: He is alert. Motor: No weakness. Psychiatric: Mood and Affect: Mood normal. Comments: Flight of ideas. Not reacting to internal stimuli. ED COURSE & MEDICAL DECISION MAKING ddx includes: suicidal ideation, homicidal ideation, psychosis, drug ingestion, drug intoxication, alcohol abuse, abdominal pain I reviewed the patients medical records and noted there allergies, past medical history, and previous visits. I reviewed the nursing notes I have reviewed the labs and imaging for the visit and noted the abnormal results. Plan: Labs inc LFTs, lipase, UA Ethanol level Abdominal reevaluation after labs available and pt sober if EtOH elevated CIWA precautions UDS Psych consult Dispo: Per Psych Impression - Suicidal ideation DUNCAN Concepcion/YULIET Resident 04/25/21 0153 * Baldo Flores RN - 04/25/2021 12:20 AM EDT Patient arrives via PINK SLIP by [employer]. [facility] stating he wanted a knife to cut his throat. Pt cooperative during triage [facility]* Certification - Felicita Andre MD - 04/25/2021 6:20 PM EDT I certify that this patient requires inpatient services at this time. I anticipate the expected length of stay will include at least two midnights. Inpatient services are due to the following medicalconcerns : depression, alcohol use disorder. Plans for post hospitalization care will be discharge to home. Felicita Andre MD Psychiatry PGY-3 Pg #[phone] [facility]03-18-2022 History and physical note* Felicita Andre MD - 04/25/2021 5:36 PM EDT PSYCHIATRY ADMISSION DOCUMENTATION PHYSICAL EXAM AND TREATMENT RECOMMENDATIONS COVID EXPOSURE/IMMUNOSUPPRESSION SCREENING Has the patient tested positive for COVID-19 within the last 90 days? no Has the patient been in close contact with anyone confirmed to have COVID-19 infection within the last 14 days? No Is the patient immunosuppressed? No, patient is not immunosuppressed (If yes, patient requires a private room at [place]) DIAGNOSTIC IMPRESSION Evidence supports a principal diagnosis of: Unspecified depression F32.9 Alcohol dependence with intoxication unspecified, F10.229, resolved Alcohol dependence with withdrawal unspecified, F10.239 R/O Alcohol dependence with unspecified alcohol-induced disorder F10.288 Secondary Diagnoses: Homelessness - Z59.0 Cocaine abuse, uncomplicated F14.10, per history Amphetamine use unspecified F15.9, per history The patient's current condition demonstrates a need for Inpatient psychiatric hospitalization due to the following: Represents a substantial risk of physical harm to self as manifested by evidence of recent threats of, or attempts at, suicide or serious self-inflicted bodily harm Suicide Risk Assessment: MODERATE RISK: Will initiate/continue suicide precautions per unit policy Recommended Precautions for Inpatient Treatment: Moderate-risk Suicide (twice in 15 minutes) and Withdrawal (opiate/benzodiazepine/alcohol) RECOMMENDATIONS Level of care: The patient will require inpatient care for safety and stabilization. ALOC Order andCertification Note have been completed. Legal status: Involuntary, pink slip dated 04/25/2021 Medical Bed: Based on clinical assessment and review of medical history, the patient does not require a medical bed. Guardianship: The patient does not have a guardian. Suicide Risk Screening: Based on risk assessment performed during this interview, this patient willbenefit from the following level of observation: Patient's risk may be downgraded to Moderate Suicide Precautions in the emergency department and in psych-certified area (inpatient psych) Additional work-up and treatment recommendations: 1. Medical work-up: ED labs reviewed. Patient requests STI labs to be ordered, and consents for HIVtesting as well. 2. Medications: Medication regimen adjustments as follows: Increase Effexor to 75mg daily The patient was advised of treatment alternatives, risks, and benefits, and is agreeable with all currently prescribed medications 3. Mobility/Fall risk: patient is a fall risk due to neurological illness, withdrawal, ECT, or deconditioning 4. Treatment for nicotine use disorder: Nicotine replacement treatment as indicated - Nicotine patch 7mg TD Q24H Discussed patient history, assessment, and treatment plan with faculty attending, Dr. Viera, who has personally evaluated the patient Felicita Andre MD Psychiatry PGY-3 Pg #[phone] SUMMARY OF CLINICAL PRESENTATION Mckinley Roman is a 36 y.o. male who presents with suicidal ideation and alcohol intoxication. Please see note by LEODAN Carrasco on date of 04/25/2021 for additional history. MEDICAL/SURGICAL HISTORY Patient has a past medical history of Bipolar 1 disorder and Depression.. Patient has no past surgical history on file. CURRENT MEDICATIONS Effexor 37.5mg daily Dispense report shows Trazodone 50mg at bedtime as well, patient states he has not taken medicationrecently but potentially interested in restarting (Not in an outpatient encounter) Current Facility-Administered Medications Medication Dose Route Frequency Provider Last Rate Last Admin [START ON 04/26/2021] folic acid (FOLVITE) tablet 1 mg 1 mg Oral Daily Chapis Min, DO LORazepam (ATIVAN) injection 2 mg 2 mg Intramuscular Q6H PRN DUNCAN Concepcion/CHB 2 mg at 04/25/21 1221 LORazepam (ATIVAN) tablet 1 mg 1 mg Oral Q30 MIN PRN Chapis Min, DO Or LORazepam (ATIVAN) tablet 2 mg 2 mg Oral Q30 MIN PRN Chapis Min, DO LORazepam (ATIVAN) tablet 1-4 mg 1-4 mg Oral Q1H PRN Chapis Min, DO [START ON 04/26/2021] multivitamin w/ minerals (THERAPEUTIC-M) tablet 1 tablet 1 tablet Oral Daily Chapis Min, DO [START ON 04/26/2021] thiamine tablet 100 mg 100 mg Oral Daily Chapis Min, DO No current outpatient medications on file. LABS AND IMAGING I have reviewed the labs and imaging 04/25/21 with the following findings: abnormal, BAL 245 Most Recent EKG: no recent EKGs to review PHYSICAL EXAM Vitals: 04/25/21 1223 BP: 143/86 Pulse: 75 Resp: 18 Temp: Constitutional: Appearance: Well developed, well nourished. Fair hygiene. HENT: Head: Normocephalic and atraumatic. External nose and ears without lesion. Mouth: Mucous membranes are moist. No lesions. Eyes: Extraocular movements intact. Conjunctivae normal. Pupils are equal, round, and reactive to light. Cardiovascular: Normal rate and regular rhythm. Normal heart sounds, no murmurs, gallops, rubs. Pulmonary: Pulmonary effort is normal. No respiratory distress. Normal breath sounds. Abdominal: Abdomen is soft, nontender, nondistended. Normal bowel sounds. Musculoskeletal: Normal range of motion. Neck is supple, no meningismus. Skin: Skin is warm and dry. Capillary refill takes less than 2 seconds. Neurological: General: No focal deficit present. Mental Status: He is alert and oriented to person, place, and time. Cranial Nerves: No cranial nerve deficit. Motor: No weakness. Coordination: Coordination normal. Gait: Gait normal. Deep Tendon Reflexes: Reflexes normal. MENTAL STATUS EXAM Musculoskeletal: gait normal, station is within normal limits; tremor absent Constitutional: well-appearing; fair hygiene; no acute distress Attention/concentration: alert, little distractibility and capable of maintaining prolonged focus, appropriate eye contact Orientation: oriented to self, location, date and situation Mood: within normal limits Affect: congruent and calm; appropriate emotional reactivity Motor Activity: normokinetic and neither restless nor sedated Speech: fluent Palestinian, average rate and rhythm, appropriate volume, normal prosody Thought Process: linear, logical and goal-oriented Associations: intact Suicidal Ideation: denied by the patient currently, although presented after being found with knifein mouth Homicidal Ideation: denied by the patient Delusions: none evident Hallucination: denies hearing voices, denies seeing visions and not apparently responding to internal stimuli Insight/Judgment: poor insight, poor judgment Memory: remote, recent, working memory all appear intact Language: appropriate for the patient's level of education Fund of knowledge: average for the patient's level of education Cognition: intact, no indication of cognitive disorder MEDICAL REVIEW OF SYSTEMS Review of Systems HENT: Negative. Respiratory: Negative. Cardiovascular: Negative. Gastrointestinal: Negative. Genitourinary: Negative. Musculoskeletal: Positive for back pain. Skin: Negative. Neurological: Positive for headaches. Psychiatric/Behavioral: The patient is nervous/anxious. High risk sexual behavior endorsed SCREENINGS Rehab Services Evaluation Screening Tool Does the patient meet any exclusionary criteria for OT Consult? No If no, please order OT Consult. Choking/Aspiration Screen This patient has the following factors that may contribute to increased risk for choking or aspiration: No identified risk factors For patients with choking risk factors present, the following interventions have been ordered: N/A Oral health and hygiene: normal dentition for age Associated attestation - Pratibha Rincon MD - 04/26/2021 11:57 AM EDT Attending Physician Attestation I saw and independently examined the patient on date of 04/26/21 and reviewed the documentation by Dr. Andre. I agree with the history, examination, and medical decision making as noted. Additional information based on my assessment: met with patient in the interview room this morning.He indicated that he had been sober for 2 weeks but then relapsed on alcohol on . [facility]. He had problems sleeping and felt stressed out leading up to relapse. States he drank >12 drinks but has poor recall of events leading up to the hospitalization. He denies current SI but reports he sometimes gets SI when he is drinking. He did jump from a 20 foot building last month while intoxicated resulting in fracured ribs and c spine trauma. He slept last night. Appetite is better. Reports last use of cocaine a few weeks ago, crack and methamphetamine use are more sporadic. He had 1 year of sobriety from alcohol [id number], but otherwise had been drinking up to 1/5th whiskey and12 beers in a day. States he has been using substances for about 16 years. Nicotine use less than 1/4 ppd. He had started effexor xr 37.5mg about 1 week prior at [facility], agreeable to increase to 75mg today. Denies avh. No HI. Denies past suicide attempts but did jump off building last month while intoxicated. Has cut when intoxicated. He reports prior dx bipolar II at some point, but unclear given substance use. Reports pain in his back on the right due to cracked ribs and manageable pain with tylenol /ibruprofen. Labs: alcohol 245 , chloride 110 04/25. 04/26/21 drug screen negative. Tsh normal, cbc normal. MODERATE RISK: Will initiate/continue suicide precautions per unit policy TREATMENT PLAN UPDATE Plan of Care Discussed with Patient and the following Action was reviewed: Initial review of treatment plan with patient Effexor xr increased to 75mg daily today for unspecified depression Add trazodone 50mg at bedtime prn insomnia- reports has been helpful in the past alcohol use disorder-Continue CIWA protocol in addition to thiamine, folate, mvt daily. Patient interested to link back to [facility] [place] as they said he could return STD testing requested by pt- syphilis negative. Pending gonorrhea/chlamydia, HIV added to prior specimen Continue nicotine patch 7mg daily for nicotine use Patient's Response: Verbalizes agreement with plan or modifications to plan. Continued Stay Criteria (select all that apply) Persistence of severe symptoms despite active treatment and/or emergence of additional problems consistent with admission criteria, The acute treatments pose a reasonable risk of complications the would further cause dangerous deterioration of individual's mental or physical health, and Clinical evidence that less intensive treatment will result in unwanted regression Current Length of Stay: 1 Days Expected Discharge Date: 05/02 I re-certify that this inpatient psychiatric hospital admission is medically necessary for diagnostic study and/or active treatment, which could reasonably be expected to improve the patient's condition. Pratibha Rincon MD [facility] Work Phone: [phone] History and physical note* Felicita Andre MD - 04/25/2021 5:36 PM EDT PSYCHIATRY ADMISSION DOCUMENTATION PHYSICAL EXAM AND TREATMENT RECOMMENDATIONS COVID EXPOSURE/IMMUNOSUPPRESSION SCREENING Has the patient tested positive for COVID-19 within the last 90 days? no Has the patient been in close contact with anyone confirmed to have COVID-19 infection within the last 14 days? No Is the patient immunosuppressed? No, patient is not immunosuppressed (If yes, patient requires a private room at [place]) DIAGNOSTIC IMPRESSION Evidence supports a principal diagnosis of: Unspecified depression F32.9 Alcohol dependence with intoxication unspecified, F10.229, resolved Alcohol dependence with withdrawal unspecified, F10.239 R/O Alcohol dependence with unspecified alcohol-induced disorder F10.288 Secondary Diagnoses: Homelessness - Z59.0 Cocaine abuse, uncomplicated F14.10, per history Amphetamine use unspecified F15.9, per history The patient's current condition demonstrates a need for Inpatient psychiatric hospitalization due to the following: Represents a substantial risk of physical harm to self as manifested by evidence of recent threats of, or attempts at, suicide or serious self-inflicted bodily harm Suicide Risk Assessment: MODERATE RISK: Will initiate/continue suicide precautions per unit policy Recommended Precautions for Inpatient Treatment: Moderate-risk Suicide (twice in 15 minutes) and Withdrawal (opiate/benzodiazepine/alcohol) RECOMMENDATIONS Level of care: The patient will require inpatient care for safety and stabilization. ALOC Order andCertification Note have been completed. Legal status: Involuntary, pink slip dated 04/25/2021 Medical Bed: Based on clinical assessment and review of medical history, the patient does not require a medical bed. Guardianship: The patient does not have a guardian. Suicide Risk Screening: Based on risk assessment performed during this interview, this patient willbenefit from the following level of observation: Patient's risk may be downgraded to Moderate Suicide Precautions in the emergency department and in psych-certified area (inpatient psych) Additional work-up and treatment recommendations: 1. Medical work-up: ED labs reviewed. Patient requests STI labs to be ordered, and consents for HIVtesting as well. 2. Medications: Medication regimen adjustments as follows: Increase Effexor to 75mg daily The patient was advised of treatment alternatives, risks, and benefits, and is agreeable with all currently prescribed medications 3. Mobility/Fall risk: patient is a fall risk due to neurological illness, withdrawal, ECT, or deconditioning 4. Treatment for nicotine use disorder: Nicotine replacement treatment as indicated - Nicotine patch 7mg TD Q24H Discussed patient history, assessment, and treatment plan with faculty attending, Dr. Viera, who has personally evaluated the patient Felicita Andre MD Psychiatry PGY-3 Pg #[phone] SUMMARY OF CLINICAL PRESENTATION Mckinley Roman is a 36 y.o. male who presents with suicidal ideation and alcohol intoxication. Please see note by LEODAN Carrasco on date of 04/25/2021 for additional history. MEDICAL/SURGICAL HISTORY Patient has a past medical history of Bipolar 1 disorder and Depression.. Patient has no past surgical history on file. CURRENT MEDICATIONS Effexor 37.5mg daily Dispense report shows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 states he has no thoughts of hurting himself or anyone else [facility]03-18-2022 Emergency department Note* UZIEL Moon - 04/25/2021 7:25 AM EDT Bed: E063 Expected date: Expected time: Means of arrival: Comments: Seclusion [facility]03-18-2022 Emergency department Note* Rob Hager RN - 04/25/2021 6:29 AM EDT Patient was yelling,threatening staff,disturbing the whole unit and demanding to leave.Patient escorted to seclusion and medicated.Charge nurse notified. [facility]03-18-2022 Emergency department Note* Radha Slaughter RN - 04/25/2021 6:14 AM EDT Bed: ESEC Expected date: Expected time: Means of arrival: Comments: [facility]03-18-2022 Emergency department Note* Rob Hager RN - 04/25/2021 6:01 AM EDT Patient is demanding for his belongings.He states he wants to leave.MD and security notified. [facility]03-18-2022 Physician Emergency department Note* Kayla Wang MD - 04/25/2021 1:29 AM EDT ED Attending Note CHIEF COMPLAINT Suicidal HPI Mckinley Roman is a 36 y.o. male who presents with SI. Pt denies this but pink slip says held knife at his throat. Hallucinations. Used alcohol today he says. Review of systems as documented in above HPI and in resident provider chart. All other systems reviewed and negative unless otherwise documented. Past Medical History: Diagnosis Date Bipolar 1 disorder Depression Social History Socioeconomic History Marital status: Single Spouse name: Not on file Number of children: Not on file Years of education: Not on file Highest education level: Not on file Occupational History Not on file Tobacco Use Smoking status: Current Every Day Smoker Types: Cigarettes Smokeless tobacco: Never Used Vaping Use Vaping Use: Never used Substance and Sexual Activity Alcohol use: Yes Drug use: Yes Types: Methamphetamines Sexual activity: Not on file Other Topics Concern Not on file Social History Narrative Not on file Social Determinants of Health Financial Resource Strain: Not on file Food Insecurity: Not on file Transportation Needs: Not on file Physical Activity: Not on file Stress: Not on file Social Connections: Not on file Intimate Partner Violence: Not on file Housing Stability: Not on file Past medical and social histories reviewed and verified by me. PHYSICAL EXAM VITAL SIGNS: BP 128/80 Pulse 70 Temp 97.4 F (36.3 C) (Infrared) Resp 18 Ht 1.803 m (5' 11 ) SpO2 92% Smoking Status Current Every Day Smoker Gen: well appearing Respiratory: No increased WOB, Normal breath sounds, No wheezing, no rales, No chest tenderness. Cardiovascular: Normal heart rate, Normal rhythm, No murmurs, No rubs, No gallops. GI: Soft, No tenderness, No masses, No pulsatile masses. Neuro: drowsy, but answers questions, otherwise Grossly neurologically intact ED COURSE & MEDICAL DECISION MAKING DDx: depression, intoxication, doubt ora, psyhcosis On 04/25/2021 I saw and examined the patient. I discussed the history and examination with the resident and agree with the plan of care. Pt presents after suicideal gesture/attempt. Intoxicated. Will medically clear when sober. Medication list reviewed. I have personally seen and examined this patient. I have fully participated in the care of this patient. I have reviewed all pertinent clinical information, including history, physical exam and plan with the resident. Part of this documentation was created with voice recognition software and errors may have occurred. Kayla Wang MD 04/26/21 [address] [facility] Work Phone: 1([phone]) 994-414103-18-2022 Emergency department Note* Rob Hager RN - 04/25/2021 12:33 AM EDT Patient states he is hearing voices telling him to grab a knife and slit his throat.He denies HI and VH.He reports he drank a lot of alcohol but he does not the time of his last drink. Patient is pink slipped by [employer]. [facility]03[facility]18-2022 Physician Emergency department Note* DUNCAN Concepcion/YULIET - 04/25/2021 12:27 AM EDT EMERGENCY DEPARTMENT ENCOUNTER CHIEF COMPLAINT Suicidal HPI Mckinley Roman is a 36 y.o. male with a history including bipolar 1, depression who presents with suicidal - patient appears to be answering questions randomly; unclear if history is reliable - presents pink slipped by [employer]; pt stated to police officers that he had a knife and was going to slit his own throat/put a knife in his mouth and cut himself - pt states history of schizophrenia; has not taken medications for months - pt denies SI/HI - denies prior suicidal actions - endorses AH, VH; says he perceives things on my face - denies access to firearms - denies recreational drug use - endorses EtOH use with prior withdrawal seizures; states last drink was few days ago Identify Protective Factors (Protective factors may not counteract significant acute suicide risk factors) Internal: N/A External: N/A ED-SAFE PATIENT SECONDARY SCREENER (ESS-6) This tool should be administered by the provider after a patient endorses active ideation in the past 2 weeks (PSS Item 2= Yes) OR suicide attempt within the past 6 months (PSS Item 3= within past 6 months). Assess the following six indicators using all data available to you, including patient self-report,collateral information, medical record review, and current observations. Each Yes gets a score of1 1. Positive on both safety screener (PSS-3) items - active ideation with a past attempt. Source: safety screening (PSS-3), documented on chart Yes (evidenced by threats made to police) 2. Recurrent or current suicide plan* Suggested wording: Have you been thinking about how you might kill yourself? yes 3. Recurrent or current intent to act on ideation* Suggested wording: Have you had some intention of acting on your thoughts? no 4. Lifetime psychiatric hospitalization Suggested wording: Have you ever been hospitalized for a mental health or substance abuse problem? yes 5. Pattern of excessive substance abuse Suggested Wording: Has drinking or drug abuse ever been a problem for you? Or positive on CAGE or other standardized substance use screener. yes 6. Current Irritability, agitation or aggression Source: clinical observation, collateral report. no A. Assign a score of 1 for each Yes above and combine to obtain a total score. Score: 4/6 B. *Critical Item Review: - Item 2: Suicide plan present? yes - Item 3: Intent present no - Current attempt? no The Purpose of this tool is initial stratification of clinical decision-making and risk mitigation.Not highly accurate prediction of suicide. Stratification instructions are below Stratification and Care Recommendations 1. Check one box in each row based on the score in A and the critical item status in B: Negligible Mild Risk Moderate Risk High Risk A. Score Not applicable (negative on primary screener) ___ 0-2 ___x_ 3-4 ___ 5-6 B. Critical Items ___ no current attempt ___ no current attempt _x__ no current attempt ___ currentattempt ___ no suicide plan or intent ___ no suicide plan or intent __x_ suicide plan or intent ___ suicideplan and intent 2. Conclude risk level based on HIGHEST level category endorsed on any row: ___mild _x__moderate __high 3. Enact mitigation and recommend care appropriate to risk level: Mitigation and Recommended Care Mild Moderate High Constant observation not required Constant observation (1:several), make room safe recommended Constant observation (1:1) and make room safe or ligature resistant room recommend Behavioral health evaluation volutnary Behavioral health evaluation recommended Behavioral health evaluation recommended Suicide Prevention and Mental Health discharge resources Suicide Prevention and Mental Health discharge resources Suicide Prevention and Mental Health discharge resources Safety plan recommended at discharge Safety plan recommended at discharge Safety plan recommended at discharge PAST MEDICAL HISTORY Past Medical History: Diagnosis Date Bipolar 1 disorder Depression SURGICAL HISTORY No past surgical history on file. CURRENT MEDICATIONS No current outpatient medications on file. ALLERGIES Not on File Family history reviewed and noncontributory other than: History reviewed. No pertinent family history. Social history reviewed and noncontributory other than: Social History Socioeconomic History Marital status: Not on file Spouse name: Not on file Number of children: Not on file Years of education: Not on file Highest education level: Not on file Occupational History Not on file Tobacco Use Smoking status: Current Every Day Smoker Types: Cigarettes Smokeless tobacco: Never Used Vaping Use Vaping Use: Never used Substance and Sexual Activity Alcohol use: Yes Drug use: Yes Types: Methamphetamines Sexual activity: Not on file Other Topics Concern Not on file Social History Narrative Not on file Social Determinants of Health Financial Resource Strain: Not on file Food Insecurity: Not on file Transportation Needs: Not on file Physical Activity: Not on file Stress: Not on file Social Connections: Not on file Intimate Partner Violence: Not on file Housing Stability: Not on file REVIEW OF SYSTEMS Review of Systems Unable to perform ROS: Psychiatric disorder PHYSICAL EXAM VITAL SIGNS: BP 128/80 Pulse 70 Temp 97.4 F (36.3 C) (Infrared) Resp 18 Ht 1.803 m (5' 11 ) SpO2 92% Smoking Status Current Every Day Smoker Physical Exam Vitals reviewed. Constitutional: General: He is not in acute distress. Appearance: Normal appearance. He is normal weight. He is not ill-appearing, toxic-appearing or diaphoretic. HENT: Head: Normocephalic and atraumatic. Right Ear: External ear normal. Left Ear: External ear normal. Mouth/Throat: Mouth: Mucous membranes are moist. Eyes: Pupils: Pupils are equal, round, and reactive to light. Cardiovascular: Rate and Rhythm: Normal rate and regular rhythm. Pulses: Normal pulses. Heart sounds: Normal heart sounds. No murmur heard. Pulmonary: Effort: Pulmonary effort is normal. No respiratory distress. Breath sounds: Normal breath sounds. No stridor. No wheezing, rhonchi or rales. Abdominal: General: Abdomen is flat. Bowel sounds are normal. There is no distension. Palpations: Abdomen is soft. There is no mass. Tenderness: There is no guarding or rebound. Hernia: No hernia is present. Comments: Pt says that hurts inconsistently on abdominal palpation; does not appear to be in discomfort; states has hurt for years Musculoskeletal: General: No deformity. Cervical back: Normal range of motion. Skin: General: Skin is warm and dry. Capillary Refill: Capillary refill takes less than 2 seconds. Findings: No rash. Neurological: Mental Status: He is alert. Motor: No weakness. Psychiatric: Mood and Affect: Mood normal. Comments: Flight of ideas. Not reacting to internal stimuli. ED COURSE & MEDICAL DECISION MAKING ddx includes: suicidal ideation, homicidal ideation, psychosis, drug ingestion, drug intoxication, alcohol abuse, abdominal pain I reviewed the patients medical records and noted there allergies, past medical history, and previous visits. I reviewed the nursing notes I have reviewed the labs and imaging for the visit and noted the abnormal results. Plan: Labs inc LFTs, lipase, UA Ethanol level Abdominal reevaluation after labs available and pt sober if EtOH elevated CIWA precautions UDS Psych consult Dispo: Per Psych Impression - Suicidal ideation DUNCAN Concepcion/YULIET Resident 04/25/21 0153 [facility] Work Phone: [phone]) 180-291103-18-2022 Emergency department Note* Baldo Flores RN - 04/25/2021 12:20 AM EDT Patient arrives via PINK SLIP by [employer]. [facility] stating he wanted a knife to cut his throat. Pt cooperative during triage [facility]02-23-2022 Note* Quick Note - Carlos Guillory RN - 04/02/2021 3:28 PM EST Discharge orders reviewed with pt, all questions answered. PIVs removed, catheter intact & siteWNL. Pt & belongings taken off unit via wheelchair to cab. [id number] Miscellaneous Notes* Quick Note - Carlos Guillory RN - 04/02/2021 3:28 PM EST Discharge orders reviewed with pt, all questions answered. PIVs removed, catheter intact & siteWNL. Pt & belongings taken off unit via wheelchair to cab. * Addiction Medicine Progress Note - DON Bone LICDC - 04/02/2021 12:19 PM EST Addiction Medicine Progress Note Visit Reason: Discharge plans Details from Interaction: [employer] received a follow up call from [facility] Marroquin , and was told patient has been approved, and able to be admitted to their facility at 4pm today. If patient not medically ready, we are able to postpone admission until tomorrow. All medications must be sent to below pharmacy. Resources (If any): [facility] [address] [place] [address] [facility] [address] [place] [address] DON Bone LICDC Addiction Medicine Counselor [phone] Note was not shared with patient: 42 CFR Part 2 Regulations * Addiction Medicine Progress Note - DON Bone LICDC - 04/02/2021 8:56 AM EST Addiction Medicine Progress Note Visit Reason: Counseling Details from Interaction: [employer] contacted [facility] to discuss bed availability in their residential treatment facility. [employer] was informed that they are currently on a 2 week waiting list, but admits that the timeframe canfluctuate. [employer] sent over this patients information to Enid Marroquin , as a back up option. Follow up Plan: Inspector [employer] will reach out to Enid Marroquin to confirm all documents have been received Resources (If any): [facility] [address], [place] [id number] [facility] [address] [place], [place] [id number] DON Bone, GURWINDER Addiction Medicine Counselor [phone] Note was not shared with patient: 42 CFR Part 2 Regulations * Addiction Medicine Progress Note - Cassia Polanco - 04/02/2021 8:54 AM EST GPRA completed on 04/01/2021 * Tertiary Note - Radha Foote, ARTS THERAPIST - 04/01/2021 2:43 PM EST MIKE PROGRESS NOTE MECHAN ISM OF INJURY: Fall(Jumped off ~20 ft building) LOC (yes/no?): Unknown Anticoagulant / Anti-platelet Rx? Denies Reason/Dx: N/A INJURIES: 1. Right 9th and 10th rib fracture SURGERIES/PROCEDURES: Date Operation/Procedure Provider Name ACTIVE MEDICAL PROBLEMS: 1. Substance use disorder 2. Suicide attempt 3. ETOH intoxication - resolved 4. Lactic acidosis - resolved INCIDENTAL FINDINGS: 1. Degenerative disc disease, particularly at C5-6 2. Mild maxillary sinus disease DISCHARGE PLANNIN. Trauma 2. Behavioral Medicine 3. Addiction Medicine 4. Therapies TODAY' S ASSESSMENT AND PLAN OF CARE: 1. Suicide Attempt: + ETOH and reportedly injected large amounts of cocaine prior to jumping approximately 20 feet from a building in an attempt to harm himself. Behavioral Medicine c/s, previously with no AMA, now discontinued. Effexor started for depression/anxiety. 2. Right rib fractures: Imaging without PTX/BETHANIE. Stable on RA. Pulmonary hygiene. Pain control. Therapies. Lovenox. 3. Cental Cord Syndrome: Patient arrived with paresthesias and inability to move right arm. NSx c/s, since s/o. MRIs obtained with C5-C6 stenosis. Upon reassessment, symptoms significantly improved without intervention. No MAP protocol needed, no planned intervention. Follow up outpatient in 4 weeks. No brace needed. Therapies. 4. Alcohol use disorder: ETOH 128 on arrival. History of binge drinking over the past 7 days after self checking out of rehab at [facility]. History of withdrawal. LFTs WNL. CIWA, Multivitamins, folic acid and thiamine ordered. No s/sx of withdrawal on exam. AM c/s, [facility] [place] See [facility]. 5. Polysubstance abuse history: Including Ecstasy, methamphetamines, cocaine and Adderall. AM c/s, likely inpatient rehab at discharge. Monitor for withdrawal, no signs currently. 6. Lactic acidosis: Resolved. LA 1.4 (2.3) following IV fluids. Afebrile, hemodynamically stable. 7. CHI: CT head -, possible LOC. [facility]IVER[employer] CAPTAIN for cog, concussion clinic at discharge. Vestibular c/s as well. Continue supportive care. 8. STD: Patient reports painful urination prior to admission which began after unprotected intercourse. He voices concern for STD. Urine test ordered, given IM Rocephin and Doxycycline x7 days. 9. Dispo: PT 2-3/ OT no needs, Vestibular pending. BM lifted AMA status, AM following and likely disposition to inpatient rehab. CM following. DISPOSITION - Floor CHIEF COMPLAINT/ HPI / PFSHx / EVENTS OVER LAST 24HRS: Patient sitting up in chair, finishing meal. Doing well this morning. Has periods to which he is tearful and upset on his actions. Reports that his father is currently hospitalized in another state and his mother in June of 2020. Pain is currently controlled. Updated on plan of care. No needs at this time. REVIEW OF SYSTEMS: Denies CP, SOB, abd pain, N/V, GONZALES. - paresthesias. + dizziness Other than the above items the remainder of the complete ROS is otherwise unchanged from admission. PHYSICAL EXAM: Temp: [97.4 F (36.3 C)-98.2 F (36.8 C)] 97.9 F (36.6 C) Heart Rate: [66-75] 70 Resp: [16-18] 17 BP: (90-155)/(57-95) 146/92 GENERAL: Appears age appropriate. No acute distress. NEUROLOGICAL: Alert and oriented X 3. Cranial nerves II-XII intact grossly. GCS 15. Follows commands with extremities x4, equal strength BLE, 4/5 RUE and 5/5 LUE. Pupils equal, round, reactive to light. EOMI. No focal neurologic deficits noted. HEAD/FACE: Normocephalic, atraumatic. EYES/EARS/NOSE/MOUTH/THROAT: Conjunctivae/sclera/corneas clear. Ears: External ear normal. Hearing within normal limits for patient. No drainage. Nose: nares normal, septum midline, no drainage or nasal tenderness. Neck: supple, symmetrical, trachea midline. CARDIOVASCULAR: Regular rate and rhythm. No clicks, rubs, murmurs or gallops noted. No peripheral edema noted. 2+ pulses radial/DP/PT bilaterally. RESPIRATORY: Lungs, clear to auscultation bilaterally. No rhonchi, wheezes or crackles. Respiratoryeffort unlabored without use of accessory muscles. On room air. ABDOMINAL: Rounded, soft, non-tender, non-distended, normal bowel sounds. No guarding or peritonealsigns. Regular diet, +flatus, BM INSPECTOR PROCESS. GENITOURINARY: Dysuria. MUSCULOSKELETAL: Extremities atraumatic without gross deformity x4. ROM appropriate for age. No clubbing, cyanosis or joint edema. SKIN: Skin warm and dry. Normal turgor. No rashes or lesions. No intake or output data in the 24 hours ending 04/01/21 1443 IMAGING [briefly note any results pertinent to today's evaluation]: Reviewed DAILY CHECKLIST: Patient seen in room 543/A *Need for Restraints: no *Need for Urinary Catheter: no *Need for Central Access Devices: no *VTE Prophylaxis (Body mass index is 29.84 kg/m ., Estimated Creatinine Clearance: 116.9 mL/min (byC-G formula based on SCr of 0.95 mg/dL).): Lovenox * Assessment & Plan Note - Tray Henriquez DO - 04/01/2021 1:51 PM ESTAssociated Problem(s): Moderate episode of recurrent major depressive disorder (HCC) - Given past mental health history, [facility] or [facility] can help given patient's psychiatric history as well. * Assessment & Plan Note - Tray Henriquez DO - 04/01/2021 1:50 PM ESTAssociated Problem(s): Nicotine dependence, cigarettes, uncomplicated - Currently on NRT and stable on it. Cessation education provided and treatment in the outpatient. * Assessment & Plan Note - Tray Henriquez DO - 04/01/2021 1:45 PM ESTAssociated Problem(s): Fall from building, initial encounter - Continue with current pain regimen and no further recommendations at this time regarding this problem. * Assessment & Plan Note - Tray Henriquez DO - 04/01/2021 1:44 PM ESTAssociated Problem(s): Ecstasy use disorder, moderate, dependence (HCC) - Can follow up with facility and can be treated in the outpatient setting. No signs of withdrawal now. * Assessment & Plan Note - Tray Henriquez DO - 04/01/2021 1:38 PM ESTAssociated Problem(s): Cocaine use disorder, severe, dependence (HCC) - Residential treatment can address this issue which we are trying to arrange at either [facility] or [facility]. * Assessment & Plan Note - Tray Henriquez DO - 04/01/2021 1:31 PM ESTAssociated Problem(s): Alcohol withdrawal syndrome without complication (HCC) - Currently on CIWA which is adequate and no triggers nor Lorazepam administered at this time. Continue for today but can discontinue tomorrow if no more CIWA triggers. * Assessment & Plan Note - Tray Henriquez DO - 04/01/2021 1:30 PM ESTAssociated Problem(s): Alcohol use disorder, severe, in controlled environment (HCC) - Goal to [facility] has been changed as [facility] has a 2 week wait list for residential treatment.Will check on [facility] and [facility] and see bed availability for residential. * Assessment & Plan Note - Tray Henriquez DO - 04/01/2021 1:24 PM ESTAssociated Problem(s): Adderall use disorder, severe, dependence (HCC) - Can be addressed at residential treatment facility when we can find one that will be approved forpatient. * Assessment & Plan Note - Tray Henriquez DO - 04/01/2021 1:13 PM ESTAssociated Problem(s): History of methamphetamine use - Based on patient history, no further intervention at this time but, perhaps, would warrant reevaluation again at a later date but can also be addressed outpatient at residential. * Sign Off Note - Radha Sanchez PA-C - 03/31/2021 7:04 PM EST Neurosurgery Sign-Off Consulting Neurosurgeon: Dr. Conti Diagnosis: 1. Right lower extremity weakness 2. Right upper extremity weakness 3. Non-dermatomal patchy paresthesias right upper and bilateral lower extremities 4. IVDU Plan: - No additional imaging needed - Follow-up in four weeks in outpatient clinic to check strength - No acute neurosurgical intervention -Activity as tolerated from neurosurgical perspective -No dietary restrictions from neurosurgical perspective Discharge instructions updated with appropriate follow-up. Please re-consult with any questions, concerns, or clinical updates. Radha Sanchez PA-C 03/31/21 7:04 PM * Quick Note - Radha Sanchez PA-C - 03/31/2021 4:03 PM EST Neurosurgery Quick Note Patient re-examined on rounds. States he feels like he is getting stronger. RUE: 5/5 delt, 5/5 bi, 5/5 tri, 4/5 package sorter LUE: 5/5 delt, 5/5 bi, 5/5 tri, 4/5 package sorter RLE: 5/5 hf, 5/5 ke, 5/5 df, 5/5 pf, 5/5 ehl LLE: 5/5 hf, 5/5 ke, 5/5 df, 5/5 pf, 5/5 ehl A/P - Cancel OR tomorrow - Cancel MAP protocol - No additional imaging needed - Follow-up in four weeks in outpatient clinic to check strength Radha Sanchez PA-C 03/31/21 4:03 PM Vocera: Neurosurgery REZA * Quick Note - Liliam Trivedi CNP - 03/31/2021 2:36 PM EST Addiction Medicine Quick Note: Consult received and documentation has been reviewed. Unfortunately Addiction Medicine is unable to see patient today. We will plan to evaluate patient on the next full business day to complete the consult. In the meantime, please feel free to call [phone] with any urgent questions or concerns. Thank you. Addiction Medicine Consult Team * Restricted Alcohol/Drug Screening - LEODAN Spicer - 03/31/2021 12:56 PM EST Restricted Alcohol/Drug Screening Date: 03/31/2021 Time: 12:56 PM This Note contains information protected by federal regulations (42 CFR Part 2) that require even greater restrictions than the rules for other medical records. The Part 2 regulations even restrict how this information may be shared within [facility]. Accordingly, this information should NOT be viewed except by caregivers when needed for the limited purpose of diagnosing, treating or making a referral in relation to alcohol/drug abuse or by caregivers when needed to treat the patient in a medical emergency. The Part 2 regulations also have special rules regarding disclosure of this information. To ensure compliance with these rules, this Note should NOT be printed and released under any circumstance, unless released with valid authorization by the Health Information Management (HIM) Department. Patient Name: Mckinley Roman Date of : 1985 Sex: Male Admit Date/Time: 03/31/2021 1:16 AM Reason for Intervention: Review of medical record indicates AOD. [facility] Clinician did not do an SBIRT or PTSD screen as Behavioral Medicine and Addiction Medicine wereboth consulted. If needed, patient can contact the [facility] at [phone] with questions and resources. [facility] Clinician signing off. Electronically signed by: ROSSANA Connelly LSW Trauma [facility] Clinician Trauma Services [facility] or [phone] * Assessment & Plan Note - Lc Judge MD - 03/31/2021 10:58 AM EST Associated Problem(s): Substance use disorder Patient reports 3 day h/o injecting Cocaine along with his excessive alcohol use. He has done this before as well as tried Methamphetamine which did not agree with him. -Addiction Medicine consulted. * Assessment & Plan Note - Lc Judge MD - 03/31/2021 10:55 AM EST Associated Problem(s): Alcohol use disorder, severe, in controlled environment (HCC) Patient with h/o binges that can be close in time and he has had one over the past 7 days after onemonth of sobriety at [facility] which he left to drink ~2.5 weeks ago. He endorses h/o DT's at times, but AST/ALT is WNL currently and BAL at admission was 0.197 and he says he was heavily intoxicated . -Addiction Medicine consulted. * Assessment & Plan Note - Lc Judge MD - 03/31/2021 10:46 AM EST Associated Problem(s): Moderate episode of recurrent major depressive disorder (HCC) By history. Rule out Bipolar. Alcohol has been a consistent confounding factor, but there is something underlying it and he has been on a variety of antidepressants, mood stabilizers, and antipsychotics in the past to help address mood, anxiety, and insomnia. He has cut himself w/SI in the past andnow has jumped from a building, but on all accounts it has been done while intoxicated. Of all medication trials he has found Effexor for mood/anxiety most helpful as well as Melatonin for sleep. When asked about SI initially he said not really and has subsequently explained he has only ever harmed himself when intoxicated. Addiction Medicine will be needed re: plan and support for cessation ofalcohol use which is his major risk factor for suicide. -Supportive therapy. -Continue Effexor XR 37.5mg qday for depression/anxiety. -Continue Melatonin 5mg at bedtime for insomnia. -Consulted Addiction Medicine. -Discontinued No AMA/suicide. -F/u with program at [facility]. documented in this [id number] Hospital Discharge instructions * Discharge Instructions* Linda Del Rio CNP - 04/02/2021 2:42 PM EST INJURIES: Right 9th and 10th rib fracture Concussion INCIDENTAL FINDINGS: Degenerative disc disease, particularly at cervical spine (C5-6) Mild maxillary sinus disease During your hospitalization it was noted you have the incidental finding(s) listed above. An incidental finding is a disease or condition, found during your hospitalization, that is unrelated to yourpresent injury or illness. You will need to follow up with your family / primary care provider for monitoring and further testing. DISCHARGE PLANNING: Trauma clinc Behavioral Medicine follow up at [facility] Addiction Medicine follow up at [facility] Neurosurgery follow up in 4 weeks TRAUMA CARE QUESTIONS / FOLLOW UP CARE A Trauma follow-up appointment should be scheduled for you before you are discharged from the hospital. If not, please contact the office at your earliest convenience to schedule your follow up appointment. Bring your medication list and/or pill bottles with you to your first visit. Telehealth Appointments: In an effort to provide alternate follow up services to all trauma patients, the trauma clinic has made Telehealth available. This is a telephone visit where the patient can speak with a provider over the phone instead of an in-person visit. If appropriate, our office may reach out to you prior to your scheduled appointment to discuss changing to a Telehealth visit. Not all patients are appropriate for telehealth, based on your injuries and follow-up needs. If you have ella/stitches, wounds or drains you may be asked to come in for an in- person visit. Outpatient Trauma and Acute Care Surgery Office: [address] Floor, [address] [place] [id number] Hours: Wednesday-Wednesday, 8am to 4pm. If you need to speak with the trauma/surgery team after hours, please call and ask to speak with the Trauma Advanced Practice Provider contour stitcher. Parking: You may park in the [facility], which is attached to the office building. Take the elevators to the 1st floor. The office is in [address]. You may also enter from the [facility] entrance. Walk through both sets of glass doors; the traumaoffice is on the right, [address], under the stairs. Use this entrance if you are arriving by ambulance or wheelchair van. Garage parking is free with a voucher, which you will receive at your appointment. PRIMARY CARE PHYSICIAN FOLLOW UP Call and schedule a post Trauma follow up appointment with your primary care provider. If you need assistance with obtaining a primary care physician please call: [phone] MANAGING YOUR PAIN AT HOME Pain is your body's way of warning you that something is wrong. Pain feels different for everybody.Only you can describe your pain. A provider can suggest or prescribe many types of medicines for pain. These range from nonprescription medicines like acetaminophen (Tylenol) to powerful medicines called opiates. Opiates work well to relieve pain, but they also can cause problems, especially if they are taken too often or in too large a dose. They can interact with other medicines, or they may make it hard for you to do your job or to think clearly. They can even cause . For these reasons, providers are very careful about how they prescribe opiates. It has been carefully considered what pain medicine is right for you. You may not have received opiate pain medicine if there are concerns about drug interactions or your safety. It is best to have one prescriber (doctor/provider) or clinic treat your pain. This way you will get the pain medicine that will help you the most, and monitoring for any problems that the medicine might cause. Follow-up care is a garcía part of your treatment and safety. Be sure to make and go to all appointments, and call the number provided if you are having problems. It's also a good idea to know your testresults and keep a list of your medicines. How can you care for yourself at home? Try other ways to reduce pain: Relax, and reduce stress. Relaxation techniques such as deep breathing or meditation can help. Keep moving. Gentle, daily exercise can help reduce pain over the long run. Try low- or no-impact exercises such as walking, swimming, and stationary biking. Do stretches to stay flexible. Try heat, cold packs, and massage. Get enough sleep. Pain can make you tired and drain your energy. Talk with your doctor if you have trouble sleeping because of pain. Think positive. Your thoughts can affect your pain level. Do things that you enjoy to distract yourself when you have pain instead of focusing on the pain. See a movie, read a book, listen to music, or spend time with a friend. Prescription Pain Medications: The prescription provided should be enough to get you through until your follow up appointment withthe Outpatient Trauma office or specialty service. DO NOT take more than prescribed. Refills on opiate pain medications can only be filled in person. Over time, you should be able to take less medications as your injuries heal. Take an over the counter stool softener daily with the pain medicine to prevent the development of constipation. Also drink plenty of water and eat foods high in fiber. If you are not taking a prescription pain medicine, take an crxd-uen-rczoiis medicine as directed such as Tylenol (Acetaminophen) or Motrin (Ibuprofen). When should you call for help? Call your doctor now or seek immediate medical care if: You have a new kind of pain. You have new symptoms, such as a fever or rash, along with the pain. You think you might be using too much pain medicine. You need help to use less or stop taking pain medicine. Your pain gets worse. You would like a referral to a doctor or clinic that specializes in pain management. RETURN TO WORK You may return to work as follows: [ ] Immediately upon hospital discharge- No work restrictions [ ] When no longer requiring opiate pain medications [ x] We will discuss returning to work at your Outpatient Trauma office appointment [ ] When you follow up with your specialist, they will tell you when you may return to work RIB FRACTURES You have rib fractures or broken ribs. It will take about 6 to 8 weeks for your ribs to heal completely. To Help The Ribs Heal: Rest is the most important part of healing. Avoid strenuous activities Light activity such as walking will help the ribs heal and reduce your risk of complications. When the pain decreases, begin normal slow movements of your body. Avoid bumping the rib area as you move. To Decrease Discomfort / Pain Support or brace your ribs with your hands or a pillow when taking deep breaths, coughing or with activity. Take your pain medications as prescribed. To Prevent Pneumonia Continue deep breathing exercises at least 10 times every hour while you are awake. Use the breathing tool, incentive spirometer , which you received while in the hospital. This will help the lung continue to heal and prevent infection. How to use an Incentive Spirometer: Sit up and hold the incentive spirometer. Place the mouthpiece in your mouth. Make sure you make a good seal with your lips. Breathe out (exhale) normally. Breathe in (inhale) SLOWLY. A piece of the incentive spirometer will rise as you inhale. Try to get this piece to rise as high as you can. Your provider will place a marker next to your goal prior to discharge. This tells you how big of abreath you should take. A smaller piece in the incentive spirometer looks like a ball or disc. Your goal should be to make this ball stays in the middle of the chamber. If you breathe too fast, the ball will shoot to the top. If you breathe too slowly, the ball will stay at the bottom. Hold your breath for 3 to 5 seconds, before you exhale. Take 10 to 15 breaths using the spirometer every hour, while you are awake. Call the Outpatient Trauma office if you develop: A fever greater than 101 and/or cough Call 911 or go to the nearest emergency department if you develop chest pain or have difficulty breathing. CONCUSSION Your trauma or accident has caused a sudden shock or jarring to your brain, with or without a loss of consciousness ( passing out ). You may be having one or more of these post concussive symptoms (PCS): Headache, blurred and/or double vision Problems sleeping, fatigue, and/or irritability Dizziness and/or feeling nauseous Poor coordination or loss of balance Memory, concentration, and/or organization problems We recommend you have a responsible person with you at all times for the first 2-3 days after discharge from the hospital, following a concussion. Most people recover fully from a concussion but occasionally PCS can last up to 3 months or longer. Follow up with your family doctor, trauma office and/or speech therapist while these symptoms continue. Call 911 if these symptoms become life threatenin g. * Discharge Instr - Care Coordination* Agnieszka Trevizo RN - 04/01/2021 10:20 AM EST Finding a Primary Care Physician: In an effort to manage your overall health care, it is highly recommended that you establish a relationship with a Primary Care Provider (PCP). The Trans[facility] provides follow-up care for patients who don t have a primary care physician and who recently had either a hospital stay or emergency visit. Please call [phone] to schedule an appointment today. There is a walk in clinic available for your hospital follow up needs as well- Their hours of operation are Wednesday- Wednesday From 9 am to 9 pm. [facility] [place] [address] For an [facility] physician referral Please call [address] [place] [address] ( [phone]) [facility], it is our mission to serve the [facility] community with affordable, easy to access healthcare services. We are a group of highly trained certified medical transcriptionist committed to promoting the health and well-being of all individuals and families in the [facility] community. As a patient at [facility], you will be empowered with tools to live a healthier lifestyle and manage your healthcare from a preventative stand. We welcome the opportunity to assist in your journey towards a healthier you. Please call [phone] to schedule an appointment today. Substance Abuse and Mental Health Resources: Mental Health and Chemical Dependency Counseling [facility]. [address] [place] [address] www.[facility] Comprehensive mental health, alcohol and drug prevention and treatment/recovery services. [facility] [address] [place], [place] [id number] www.[facility].org Mental health and substance abuse counseling for all ages. Specialized services for children, adolescents, older adults and persons with chronic mental illness. [facility] [address] [place], [place] [id number] www.[facility].org Treatment for behavioral health problems, drug and alcohol abuse, violence, aggression, teen , delinquency and child abuse/ neglect. [facility] [address] [place], [place] [id number] www.[facility]health.org Mental health counseling for all ages. Substance abuse services for adults. Specialized services for clients with trauma issues. [facility] [address] [facility] [place], [place] [id number] Counseling for all ages, outpatient services to individuals recovering from alcohol and chemical dependency. [facility] [address] [place] [address] www.[facility].org Outpatient mental health and alcohol/drug abuse counseling. [facility] [address] [place], [place] www.[facility].org 24-hour mental health and substance abuse crisis and assessment services. [facility] [address] [place] [address] www.[facility].org Outpatient counseling and drug/alcohol services for all ages. Specialized treatment for Borderline Personality Disorder. [facility] [address] [place], [place] [id number] www.the rehabilitation instituteCapitaine Trainw[facility]sworth[facility].Healthcare Bluebook Outpatient counseling, specialized programs for seniors, teens and persons with alcohol related problems. [facility] [address] [place], [place] [address] www.[facility].org Counseling services for all ages. Alcohol/drug prevention and treatment. Comprehensive older adult services and caregivers consultation. [facility] [address] [place] [address] www.eBrisk Video.Healthcare Bluebook Specialized mental health and recovery services for adults, outpatient drug and alcohol services including specialized GLB chemical dependency services. [facility] [address] [place] [address] www.sc.gov Outpatient, individual and group therapy and substance abuse treatment Chemical Dependency Treatment and Recovery Services [employer] [address] [place] [address] www.apdsinc.org Offers Africentric Therapeutic Process, a 13 week non-intensive outpatient substance abuse education and treatment program. Al-Anon/AlaTeen [address] [place] [address] www.al-anon.alateen.org Programs and meetings directed at helping the family and friends of alcoholics. Alcoholics Anonymous [address] [place] [address] www.jpni75dz.org 12-Step, self-help program, offers support meetings on alcohol abuse and recovery [employer]. [address] [place], [place] [address] www.Testin.org Primarily serves low-income or homeless women ages 18 and older who are recovering from alcohol anddrug addiction. Cocaine Anonymous [address] [facility] [facility] [place] [address] www.Bensussen Deutsch.org Provides support group for cocaine users desiring recovery [facility] [address] [facility]. [place] [address] www.[facility].org Provides moderate and intensive levels of drug and alcohol outpatient treatment. Specialized services for women and homeless persons. Transportation and childcare assistance. [facility] [address] [place] [address] www.compdrug.org Adult drug counseling and treatment. [facility] [address] [place] [address] www.[facility].org Provides outpatient alcohol and substance abuse counseling and case management for adults. Intensive outpatient program. Also provides highly structured inpatient program with 20-bed capacity. [facility] [address] [facility] [place] [address] Walk in crisis center provides peer support and guidance for adults through 12- step alcohol and drug recovery process. [facility]ang [address] [place] [address] www.Appifier Alcohol and drug treatment, mental health services when dually diagnosed; adult and adolescent inpatient and outpatient services. Cristian-Anon [address] [place] [address] www.cristian-anon.org/[place].[facility] Weekly support meetings for recovering drug abusers and their families and friends. Narcotics Anonymous [address] [facility] [facility] [address] [facility] [place] [address] www.na.EventKloud Support and information for persons desiring recovery from drug addiction. [facility] [address] [facility] [place] [address] www.Tyto Alcohol counseling and healthy alternatives to sobriety. Includes 12-step AA meetings and Talking Tribe. [facility] [address] [place] [address] www.[facility] Comprehensive outpatient alcohol and drug abuse counseling and testing. Awa Levy [address] [place] [address]. [place] [address] www.project-asad.org 12-week intensive outpatient alcohol and drug dependency treatment program. Offers assessment, individual and group counseling and relapse prevention. Carlene Humphrey [address] [place] [address] www.medicalcenter.[facility] Medical detoxification unit, residential program, partial hospitalization, adolescent and adult outpatient services. [facility] [address] [place], [place] [address] www.Rooster TeethGreenTrapOnlineskyline medical centerBlackbay Inpatient detoxification and alcohol/substance abuse treatment. Partial hospitalization program. Intensive outpatient programs for adults and adolescents. Mental Health and Counseling Services [facility] [employer] [address] [place] [address] www.[facility].EventKloud Provides Individual, group, family and child/adolescent, marriage, substance abuse counseling and crisis intervention Emotions Anonymous [address], [place] [address] www.emotionsanonymous.org Offers 12-step support group for adults who are having difficulty managing their emotions. [facility] [address] [place], [place] [address] www.[facility].EventKloud Provides counseling for all ages, specialized support groups and substance abuse issues counseling. [facility] [address] [place] [address] www.[facility] hospital[facility] Individual, group and family therapy. Intensive outpatient program, domestic violence unit and crime and trauma victims assistance. [facility] [address] [place] [address] www.AnalytiCon Discoveryst. [facility].Healthcare Bluebook/behavioralhealth Inpatient psychiatry for adults and older adults. Intensive outpatient program and sexual assault response network of [facility]. [facility] [address] [place] [address] [place] [address] www.medicalcent.[facility] Psychiatric services for all ages including inpatient, partial hospitalization and outpatient services. [facility] [address] [facility] [place] [address] Provides individual, family, group and marital counseling. Specialized services dealing with domestic violence, sexual abuse, PTSD and anger management. Also provides psychiatric evaluation and medication management. [facility] [address], [place] [address] www.[facility] Collaborative site offering outpatient services for adults. [facility] [address] [place] [address] Provides outpatient counseling, medication monitoring and intensive inpatient psychiatric services. [facility] Alcohol, Drug and Mental Health (ADAMH) Boards The [facility] Alcohol, Drug and Mental Health ([facility]) Boards are authorized to plan, fund and monitor mental health, drug and alcohol services. The [facility] Board does not directly provide services, but contracts with a network of public and private health care agencies to treat persons in need. Whether you are someone seeking help, or a family member in need of information, we are here to help [facility] www.adamhfranklin.org * Attachments The following attachments cannot be sent through Care Everywhere. * Cervical Spinal Stenosis (Palestinian) documented in this [id number] History of Present illness Narrative* Lc Judge MD - 04/02/2021 1:54 PM EST Behavioral Health Progress Note Patient Name: Mckinley Roman Admit Date: 2200312 MR #: [id number] : 1985 Perpetual Assessment Mckinley Roman is a 36 y.o. male with a history of Alcohol use disorder and Substance use Disorder as well as problems with mood/anxiety/insomnia that has been diagnosed in various ways due to contextof alcohol use. He jumped from ~25 feet while intoxicated. Diagnosis & Plan/Recommendations Other Substance use disorder Assessment & Plan Patient reports 3 day h/o injecting Cocaine along with his excessive alcohol use. He has done this before as well as tried Methamphetamine which did not agree with him. -Addiction Medicine consulted. Alcohol use disorder, severe, in controlled environment (HCC) Assessment & Plan Patient with h/o binges that can be close in time and he has had one over the past 7 days after onemonth of sobriety at [facility] which he left to drink ~2.5 weeks ago. He endorses h/o DT's at times, but AST/ALT is WNL currently and BAL at admission was 0.197 and he says he was heavily intoxicated . -Addiction Medicine consulted. Moderate episode of recurrent major depressive disorder (HCC) Assessment & Plan By history. Rule out Bipolar. Alcohol has been a consistent confounding factor, but there is something underlying it and he has been on a variety of antidepressants, mood stabilizers, and antipsychotics in the past to help address mood, anxiety, and insomnia. He has cut himself w/SI in the past andnow has jumped from a building, but on all accounts it has been done while intoxicated. Of all medication trials he has found Effexor for mood/anxiety most helpful as well as Melatonin for sleep. When asked about SI initially he said not really and has subsequently explained he has only ever harmed himself when intoxicated. Addiction Medicine will be needed re: plan and support for cessation ofalcohol use which is his major risk factor for suicide. -Supportive therapy. -Continue Effexor XR 37.5mg qday for depression/anxiety. -Continue Melatonin 5mg at bedtime for insomnia. -Consulted Addiction Medicine. -Discontinued No AMA/suicide. -F/u with program at [facility]. Treatment options and alternatives reviewed with patient. Risks, benefits, side effects of all psychiatric medications discussed with patient and informed consent obtained. All questions were answered. Comorbid issues impacting my care plan include substance use and homelessness. Our service will follow as needed. Following for suicide attempt while intoxicated Interval History: Reviewed notes. Patient continues to be very personable, cooperative, and with a good amount of insight into his struggles with alcohol and drugs. He also continues to deny SI and is future-oriented. He is to transfer to [facility] upon discharge this afternoon. He has no complaints or questions about the Effexor or Melatonin and wanted to make sure it will follow him to [facility]. He was told that that is my recommendation. Nothing more to add at this time. Review of Systems: Constitutional:No fever, no weight loss Eyes:No diplopia ENT:No sinus drainage CV:No chest pain. No ankle swelling Resp:No dyspnea. No wheezing GI:No abdominal pain.No abdominal distention :No dysuria Neuro:No headache Integumentary:No skin rash MuscSkel:No arthralgias Endo:No polyuria Heme/lymphatic:No apparent lymphadenopathy Allergic/Immunologic:No hives Physical Examination: Vital Signs: BP 135/86 (BP Location: Left arm, Patient Position: Sitting) Pulse 63 Temp 97.9 F (36.6 C) (Oral) Resp 16 Ht 6' Wt 99.8 kg (220 lb) SpO2 97% BMI 29.84 kg/m Mental Status Evaluation: General Appearance & Behavior: age appropriate, pleasant, cooperative, good eye contact Grooming & Hygiene: neat and clean and hospital gown Psychomotor Activity: no psychomotor abnormalities or muscle atrophy noted Gait & Station stable gait and ability to rise from bed/chair without assistance Speech: normal rate, rhythym, volume, and spontaneity Flow of Thought: linear and goal directed Thought Associations: Intact Content of Thought: No evidence of suicidal ideations/homicidal ideations/psychosis Mood: okay Affect: euthymic Insight: good Judgment: fair Orientation: alert and oriented to person, place, time, and circumstances Memory: intact recent and remote Attention: intact Concentration: intact Language: intact Fund of Knowledge: estimated average intelligence Laboratory and Additional Data Reviewed: Laboratory 04/02/21 1:54 PM Medications 04/02/21 1:54 PM Lc Judge MD 04/02/2021 1:54 PM * Kala Keller OT - 04/02/2021 10:20 AM EST Occupational Therapy OCCUPATIONAL THERAPY PROGRESS REPORT and Discharge Pt is near baseline for ADLs and mobility during ADLs. Training and education completed; pt has no further acute OT needs at this time. Skilled Therapy Needs After Discharge Anticipate Resolution of Current Assessment Limitations Including: Pain, Mechanical Barriers Are Skilled Therapy Services Needed After Discharge: No DME Recommendation: Elevated toilet seat, Tub seat (Defer to PT for mobility device if needed) DME Rationale: Patient's condition prevents him/her from accomplishing ADL without recommended equipment, Patient's condition creates an increased risk of safety hazard without recommended equipment,Functional reach deficit/ post surgical precaution adherence/ limitations of body habitus Rehab Potential: Good, For goals Outcomes Measures Prior Function Daily Activity Raw Score: 24 Prior Function Daily Activity % Impaired: 0% AM-PAC Daily Activity Raw Score: 24 AM-PAC Daily Activity % Impaired: 0% Activity Tolerance Activity Tolerance: Tolerates 10 - 20 min activity with multiple rests (Limited by impulsivity, attention, and c/o pain) Therapy Precautions Orthotic Devices: No Weight Bearing Status: WFL General Rehab Precautions: Fall risk (R Rib Protection) Cognition Overall Cognitive Status: Within Functional Limits Arousal/Alertness: Appropriate responses to stimuli Orientation Level: Oriented X4 Executive functioning: WFL Safety Judgment: Decreased awareness of need for safety Problem Solving: Assistance required to identify errors made Attention: Attends to distracted environment Hearing Status: WFL Social Interaction: Cooperative, Impulsive Comments: No command following deficits noted. Skilled Intervention Provided: patient education For: necessary precautions (R rib protection principles) Resulting In: increased safety awareness ADL Grooming: Modified independent, Set-up (standing at sink for oral care) LE Dressing: Modified independent, Set-up (doffing undergarment in standing; use of side sitting todonn) Toileting: Modified independent (standing bladder management; independent for toilet t/f.) Overall ADL Performance - Skilled Intervention Provided: patient education, environmental setup/modification, facilitation, demonstration Overall ADL Performance - For: compensatory strategies, proper body mechanics, pursed lip breathing, safety during functional task(s) Overall ADL Performance - Resulting In: improved participation in ADL task(s), improved ADL performance Bed Mobility Rolling: Supervision, Head of bed flat Supine to Sit: Supervision, Head of bed flat Sit to Supine: Supervision, Head of bed flat Jewelry Making Instructor: bedrails (for supine to sit) Additional Bed Mobility Trial 2: Yes Rolling Trial 2: Modified independent, Head of bed flat Supine to Sit Trial 2: Modified independent, Head of bed flat Sit to Supine Trial 2: Modified independent, Head of bed flat Jewelry Making Instructor Trial 2: bedrails (for supine to sit only) Skilled Intervention Provided: verbal cues, tactile cues, visual cues, environmental setup/modification, demonstration, facilitation, patient education, provided step by step instructions (diminishedcues during 2nd trial) For: LE positioning, UE positioning, compensatory strategies, logroll technique, proper body mechanics, pursed lip breathing Resulting In: decreased assistance required, decreased pain Functional Transfers Sit to Stand: Modified independent Bed to Chair Transfers: Modified independent Toilet Transfers: Modified independent, to/from toilet Jewelry Making Instructor: (None) Skilled Intervention Provided: monitoring patient response with activity, environmental setup/modification, patient education For: energy conservation, pursed lip breathing, controlled descent Resulting In: increased upright tolerance for functional task(s), decreased assistance required Exercise Breathing Training: Diaphragmatic breathing, Pursed lip breathing Skilled intervention provided: verbal cues, visual cues, demonstration, instruction on proper technique/alignment, patient education For: postural alignment, compensatory strategies Resulting In: other (comment) (improved ability to breathe deeply with decreased c/o pain) Additional Treatment Details Reviewed energy conservation with pt verbalizing understanding. Reviewed splinting abdomen with coughing/sneezing and pt reports decreased c/o pain when utilizing. Home Living Obtained Home Living and PLOF info from: Patient Lives With: Alone Type of Home: Homeless Mobility Equipment: Other (comment) (None) ADL Equipment: Other (comment) (None) Additional Objective Details - Home Living: Pt reports hx of falling while intoxicated Prior Level of Function Receives Help From: Other (Comment) (NA) Level of [place] - Transfers/Ambulation/Mobility: Independent with functional transfers, Independent with household ambulation, Independent with community ambulation (No AD or limitation) Level of [place] - ADLs: Independent Level of [place] - Homemaking: Independent Driving: Patient drives 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 This note stands as the current Discharge Summary upon patient discharge from the hospital or completion of Occupational Therapy Plan of Care. * Cassia Zheng RN - 04/02/2021 9:43 AM EST Care Management Progress Note Patient Name: Mckinley Roman Working Discharge Plan: Transportation Plan: Options Reviewed: Explained services/benefits, Possible expense, List provided Pending/Established Referrals Spoke to Hussain @ [facility] ) - She is not familiar with this patient- He is not known to [facility]. [facility] Does walk in assessments until 1300- And placed patients in programs based on that assessment.. Program placement is not guaranteed. Barriers to Discharge/Plan for Follow Up: Medical readiness Add med following- Referral to [facility] initiated Provider alerted to [facility] feedback. 1230: Cab voucher to [facility] address. * Lc Judge MD - 04/01/2021 2:07 PM EST Behavioral Health Progress Note Patient Name: Mckinley Roman Admit Date: 2200312 MR #: [id number] : 1985 Perpetual Assessment Mckinley Roman is a 36 y.o. male with a history of Alcohol use disorder and Substance use Disorder as well as problems with mood/anxiety/insomnia that has been diagnosed in various ways due to contextof alcohol use. He jumped from ~25 feet while intoxicated. Diagnosis & Plan/Recommendations Other Substance use disorder Assessment & Plan Patient reports 3 day h/o injecting Cocaine along with his excessive alcohol use. He has done this before as well as tried Methamphetamine which did not agree with him. -Addiction Medicine consulted. Alcohol use disorder, severe, in controlled environment (HCC) Assessment & Plan Patient with h/o binges that can be close in time and he has had one over the past 7 days after onemonth of sobriety at [facility] which he left to drink ~2.5 weeks ago. He endorses h/o DT's at times, but AST/ALT is WNL currently and BAL at admission was 0.197 and he says he was heavily intoxicated . -Addiction Medicine consulted. Moderate episode of recurrent major depressive disorder (HCC) Assessment & Plan By history. Rule out Bipolar. Alcohol has been a consistent confounding factor, but there is something underlying it and he has been on a variety of antidepressants, mood stabilizers, and antipsychotics in the past to help address mood, anxiety, and insomnia. He has cut himself w/SI in the past andnow has jumped from a building, but on all accounts it has been done while intoxicated. Of all medication trials he has found Effexor for mood/anxiety most helpful as well as Melatonin for sleep. When asked about SI initially he said not really and has subsequently explained he has only ever harmed himself when intoxicated. Addiction Medicine will be needed re: plan and support for cessation ofalcohol use which is his major risk factor for suicide. -Supportive therapy. -Started Effexor XR 37.5mg qday for depression/anxiety. -Started Melatonin 5mg at bedtime for insomnia. -Added PRN Trazodone for sleep. -Consulted Addiction Medicine. -Discontinue No AMA/suicide. Treatment options and alternatives reviewed with patient. Risks, benefits, side effects of all psychiatric medications discussed with patient and informed consent obtained. All questions were answered. Comorbid issues impacting my care plan include substance use and homelessness. Our service will follow as needed. Following for suicide attempt while intoxicated Interval History: Reviewed notes. Patient continues to be very personable, cooperative, and with a good amount of insight into his struggles with alcohol and drugs. He says his self-harm and suicide-like attempts have always been at the end of some heavy drinking and drug use until he becomes despondent about it. He says he has never attempted to harm himself when sober and he understands this isthe challenge, ie, to maintain sobriety. He has talked with Addiction Medicine about an inpatient rehab program. He is tolerating the Effexor well. He is onboard with discontinuing the suicide precautions. Review of Systems: Constitutional:No fever, no weight loss Eyes:No diplopia ENT:No sinus drainage CV:No chest pain. No ankle swelling Resp:No dyspnea. No wheezing GI:No abdominal pain.No abdominal distention :No dysuria Neuro:No headache Integumentary:No skin rash MuscSkel:No arthralgias Endo:No polyuria Heme/lymphatic:No apparent lymphadenopathy Allergic/Immunologic:No hives Physical Examination: Vital Signs: BP (!) 146/92 Pulse 70 Temp 97.9 F (36.6 C) (Oral) Resp 16 Ht 6' Wt 99.8 kg (220 lb) SpO2 98% BMI 29.84 kg/m Mental Status Evaluation: General Appearance & Behavior: age appropriate, pleasant, cooperative, good eye contact Grooming & Hygiene: neat and clean and hospital gown Psychomotor Activity: no psychomotor abnormalities or muscle atrophy noted Gait & Station stable gait and ability to rise from bed/chair without assistance Speech: normal rate, rhythym, volume, and spontaneity Flow of Thought: linear and goal directed Thought Associations: Intact Content of Thought: No evidence of suicidal ideations/homicidal ideations/psychosis Mood: okay Affect: euthymic Insight: good Judgment: fair Orientation: alert and oriented to person, place, time, and circumstances Memory: intact recent and remote Attention: intact Concentration: intact Language: intact Fund of Knowledge: estimated average intelligence Laboratory and Additional Data Reviewed: Laboratory 04/01/21 2:07 PM Medications 04/01/21 2:07 PM Lc Judge MD 04/01/2021 2:07 PM * Nany Gaviria MD - 03/31/2021 5:30 AM EST TRAUMA ATTENDING The patient was seen and examined by me, the attending trauma surgeon, on the date of service listed above. I was present in the trauma bay prior to patient arrival. I have reviewed the relevant labs, studies, and transportation sales consultant notes. I have reviewed and agree with the documented history, exam, and plan of care, with the following additions and corrections: Please link this note to the relevant trauma service note. The following conditions were present on admission: No Vizient risk variables were present on admission Please see assessment and plan for further details. 20 ft jump for suicide attempt. Multiple neuro deficits as described below plus 2 right rib fractures. Trauma scans at referring hospital neg. Sent for MRI and stat neurosurg consult are unremarkable. Admit to med/surg. Behavioral health. Consider neuro consult if no rapid improvement. PT/OT consult. Nany Gaviria MD, FACS Trauma, Critical Care, & Acute Care Surgery documented in this [id number] Note* Addiction Medicine Progress Note - DON Bone [facility] - 04/02/2021 12:19 PM EST Addiction Medicine Progress Note Visit Reason: Discharge plans Details from Interaction: Inspector Final Assembly [employer] received a follow up call from [facility] , and was told patient has been approved, and able to be admitted to their facility at 4pm today. If patient not medically ready, we are able to postpone admission until tomorrow. All medications must be sent to below pharmacy. Resources (If any): [facility] Marroquin [address], [place] [id number] [facility] [address] [place] [address] DON Bone [facility] Addiction Medicine Counselor [phone] Note was not shared with patient: 42 CFR Part 2 Regulations [id number] Hospital course Narrative* Linda Del Rio, [facility] - 04/02/2021 10:26 AM EST [place] TRAUMA and ACUTE CARE SURGERY TRAUMA DISCHARGE SUMMARY MECHAN ISM OF INJURY: Jumped off 20ft building LOC (yes/no?): Unknown Anticoagulant / Anti-platelet Rx? (for what dx?): Denies The following Vizient risk variables were noted and present on admission: No Vizient risk variables were present on admission Please see assessment and plan for further details. INJURIES: 1. Right 9th and 10th rib fracture 2. Concussion SURGERIES/PROCEDURES: Date Operation/Procedure Provider Name ACTIVE MEDICAL PROBLEMS: 1. Substance use disorder 2. Suicide attempt INCIDENTAL FINDINGS: 1. Degenerative disc disease, particularly at C5-6 2. Mild maxillary sinus disease DISCHARGE PLANNIN. Trauma 2. Behavioral Medicine 3. Addiction Medicine 4. Neurosurgery follow up in 4 weeks TODAY' S ASSESSMENT AND PLAN OF CARE: 1. Suicide Attempt: + ETOH and reportedly injected large amounts of cocaine prior to jumping approximately 20 feet from a building in an attempt to harm himself. Behavioral Medicine c/s, previously with no AMA and suicide precautions, now discontinued. Effexor started for depression/anxiety. Continue melatonin for insomnia. Plan for follow up at [facility]. 2. Right rib fractures: Imaging without PTX/BETHANIE. Stable on RA. Pulmonary hygiene. Pain control. PT/OT. 3. Concern for Cental Cord Syndrome: Resolved. Patient arrived with paresthesias and inability to move right arm. NSx c/s, since s/o. MRIs obtained with C5-C6 stenosis. Symptoms have since resolved. No MAP protocol needed, no planned intervention. Follow up outpatient in 4 weeks. No brace needed. Cleared PT/OT. 4. Alcohol use disorder: ETOH 128 on arrival. History of binge drinking over the past 7 days after self checking [place] [facility] History of withdrawal. LFTs WNL. CIWA, Multivitamins, folic acid and thiamine ordered. No s/sx of withdrawal on exam. Addiction medicine following and plan for admission to [facility] for rehab following hospitalization. 5. Polysubstance abuse history: Including Ecstasy, methamphetamines, cocaine and Adderall. As above, addiction medicine following and plan for inpatient rehab at discharge. Monitor for withdrawal, nosigns currently. 6. Concussion: CT head -, possible LOC. [employer] CAPTAIN for cog, concussion clinic at discharge. Vestibular c/sas well. Continue supportive care. 7. Concern for STD: Patient reports painful urination prior to admission which began after unprotected intercourse. He voices concern for STD. Urine tests negative. Received one dose of rocephin. Discussed with pharmacy, will discontinue doxy given negative test results. 7. Dispo: PT 2-3/ OT no needs. Plan for admission to [facility] for rehab upon discharge. Medically stable for discharge. Discharge to [facility] Outpatient PT Inpatient Consults: Procedures Inpatient consult to Trauma Surgery Inpatient consult to Behavioral Health Inpatient consult to Neurosurgery Hospitalize Patient To : Inpatient consult to Addiction Medicine Inpatient consult to Care Management Inpatient Procedures: No admission procedures for hospital encounter. Allergies Reviewed: Patient has no known allergies. Discharge Medications: Medication List START taking these medications acetaminophen 325 MG tablet Commonly known as: TYLENOL Take 2 (two) tablets (650 mg total) by mouth every 4 (four) hours as needed . folic acid 1 MG tablet Commonly known as: FOLVITE Take 1 (one) tablet (1 mg total) by mouth daily Start: 04/03/21. Start taking on: April 03, 2021 gabapentin 300 MG capsule Commonly known as: NEURONTIN Take 1 (one) capsule (300 mg total) by mouth every 8 (eight) hours (Days supply per fill: 30) . ibuprofen 400 MG tablet Commonly known as: ADVIL,MOTRIN Take 1 (one) tablet (400 mg total) by mouth every 6 (six) hours as needed . lidocaine 4 % patch Place 1 (one) patch on the skin daily Remove & Discard patch within 12 hours or as directed by MD Start: 04/03/21. Start taking on: April 03, 2021 melatonin 5 mg Tab Take 1 (one) tablet (5 mg total) by mouth nightly . methocarbamoL 500 MG tablet Commonly known as: ROBAXIN Take 1 (one) tablet (500 mg total) by mouth every 6 (six) hours as needed for muscle spasms . naloxone 4 mg/actuation Wheelwright Commonly known as: NARCAN Administer 1 spray into one nostril for known or suspected opioid overdose. If patient worsens or does not respond, may repeat in 2-3 minutes. . oxyCODONE 5 MG immediate release tablet Commonly known as: ROXICODONE Take 1 (one) tablet (5 mg total) by mouth every 6 (six) hours as needed (Days supply per fill: 7) . thiamine 100 MG tablet Take 2 (two) tablets (200 mg total) by mouth daily Start: 04/03/21. Start taking on: April 03, 2021 traZODone 50 MG tablet Commonly known as: DESYREL Take 0.5 (one-half) tablet (25 mg total) by mouth nightly as needed for sleep . venlafaxine 37.5 MG 24 hr capsule Commonly known as: EFFEXOR-XR Take 1 (one) capsule (37.5 mg total) by mouth daily with breakfast Start: 04/03/21. Start taking on: April 03, 2021 CONTINUE taking these medications b complex vitamins tablet cetirizine 10 MG tablet Commonly known as: ZYRTEC multivitamin per tablet Commonly known as: THERAGRAN VITAMIN C ORAL VITAMIN D3 ORAL VITAMIN E ORAL Where to Get Your Medications Information about where to get these medications is not yet available Ask your nurse or doctor about these medications acetaminophen 325 MG tablet folic acid 1 MG tablet gabapentin 300 MG capsule ibuprofen 400 MG tablet lidocaine 4 % patch melatonin 5 mg Tab methocarbamoL 500 MG tablet naloxone 4 mg/actuation Wheelwright oxyCODONE 5 MG immediate release tablet thiamine 100 MG tablet traZODone 50 MG tablet venlafaxine 37.5 MG 24 hr capsule Diet: regular Follow-up Appointments / Plans: [facility], Neuroscience [address] [place] [phone] Follow up Please schedule follow-up in four weeks at outpatient neurosurgery clinic. [facility] [address] [place] [address] Follow up Time spent on discharge: > 30 minutes CHIEF COMPLAINT/ HPI / PFSHx / EVENTS OVER LAST 24HRS: Patient resting in bed. Reports pain well controlled. Patient denies chest pain, shortness of breath, nausea, vomiting, headache, paraesthesias, and lightheadedness. REVIEW OF SYSTEMS: Other than the above items the remainder of the complete ROS is otherwise unchanged from admission. PHYSICAL EXAM: Temp: [97.9 F (36.6 C)-98.1 F (36.7 C)] 97.9 F (36.6 C) Heart Rate: [57-79] 63 Resp: [14-16] 16 BP: (122-157)/(72-95) 135/86 GENERAL: Appears age appropriate. No acute distress. NEUROLOGICAL: Alert and oriented X 3. Cranial nerves II-XII intact grossly. GCS 15. Follows commands with extremities x4, equal strength. Pupils equal, round, reactive to light. EOMI. No focal neurologic deficits noted. HEAD/FACE: Normocephalic, atraumatic. EYES/EARS/NOSE/MOUTH/THROAT: Conjunctivae/sclerae/corneas clear. Ears: External ear normal. Hearingwithin normal limits for patient. No drainage. Nose: nares normal, septum midline, no drainage or nasal tenderness. Neck: supple, symmetrical, trachea midline. CARDIOVASCULAR: Regular rate and rhythm. No clicks, rubs, murmurs or gallops noted. No peripheral edema noted. 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 2+ pulses radial/DP/PT bilaterally. RESPIRATORY: Lungs, clear to auscultation bilaterally. No rhonchi, wheezes or crackles. Respiratoryeffort unlabored without use of accessory muscles. ABDOMINAL: Rounded, soft, nontender, nondistended, normal bowel sounds. No guarding or peritoneal signs. GENITOURINARY: Voiding without difficulty. No dysuria or retention. No gross hematuria. MUSCULOSKELETAL: Extremities atraumatic without gross deformity x4. ROM appropriate for age. No clubbing, cyanosis or joint edema. SKIN: Skin warm and dry. Normal turgor. No rashes or lesions. Intake/Output Summary (Last 24 hours) at 04/02/2021 1448 Last data filed at 04/01/2021 2100 Gross per 24 hour Intake 600 ml Output -- Net 600 ml Associated attestation - Mike Fay MD - 04/02/2021 3:41 PM EST Name: Mckinley Roman Admit Date and Time: 03/31/2021 1:16 AM I agree with advance practice providers discharge summary as it is below. Mike Fay MD MS [facility] Trauma, Acute Care, and Critical Care Surgery documented in this [id number] Consult note* Jakub Dolan, PT - 04/02/2021 9:20 AM EST Physical Therapy Physical Therapy Vestibular Evaluation Impressions: PT Vestibular Impressions PT Vestibular Impression: Pt is a 36 y/o M admitted following a 20 ft fall resulting in multiple R rib fx. Pt c/o dizziness, described as feeling light headed, occuring when transitioning from supine->sit. Pt reports sx last several minutes. Pt also reports hx of brain injury in 2011 and reportssome dizziness at baseline. Pt noted to have saccades during smooth pursuits, hypometria during saccade testing, and difficulty fixating on target with head turns. Roll test and modified sidelying test (-) for nystagmus or complaint of dizziness. It is PT impression that pt is (-) for vestibular hypofunction and BPPV at this time. No further acute skilled vestibular needs. Vestibular PT signing off. Oculomotor Testing: Oculomotor Testing Spontaneous Nystagmus: Test in room light, Not present Gaze Hold Nystagmus: Test in room light, No nystagmus present Smooth Pursuit: Saccades present, Increase symptoms Saccades: Undershoot VOR Cancellation: Re-fixation saccades present Head Thrust / VOR Fast: Corrective saccade with head to left (difficult fixating on target noted) Skew Eye Deviation: Within Normal Limits (WNL) Positional Testing: Positional Testing Modified Side Lying Test: Within Normal Limits (WNL) Roll Test: Within Normal Limits (WNL) For complete Physical Therapy Vestibular assessment, treatment, and education, refer to the Vestibular flowsheet and Plan of Care documenation. This note and corresponding flowsheets stand as the Discharge Summary upon patient discharge from the hospital or completion of the Physical Therapy Plan of Care. [id number] Consult note* Jakub Dolan PT - 04/02/2021 9:20 AM EST Physical Therapy Physical Therapy Vestibular Evaluation Impressions: PT Vestibular Impressions PT Vestibular Impression: Pt is a 36 y/o M admitted following a 20 ft fall resulting in multiple R rib fx. Pt c/o dizziness, described as feeling light headed, occuring when transitioning from supine->sit. Pt reports sx last several minutes. Pt also reports hx of brain injury in 2012 and reportssome dizziness at baseline. Pt noted to have saccades during smooth pursuits, hypometria during saccade testing, and difficulty fixating on target with head turns. Roll test and modified sidelying test (-) for nystagmus or complaint of dizziness. It is PT impression that pt is (-) for vestibular hypofunction and BPPV at this time. No further acute skilled vestibular needs. Vestibular PT signing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 per primary team. Reason for Consult: Medical management of alcohol use disorder. Medical management of alcohol withdrawal symptoms. Management of stimulant use disorder. Linking to outpatient services. Counseling services. History of Present Illness: Mckinley Roman is a 36 y.o. male who presented to the hospital who arrives to the hospital for suicide attempt after attempting to jump off a 15-20 ft wall after being acute intoxicated with alcohol and cocaine. Part of the reason why he attempted suicide as he is recently homeless and experiencing financial and emotional hardship since relapse on alcohol as well as father's health taking a turn for the worse and recent of mother this past May 2020. Admits that he had preexisting thoughts of hurting himself and the cocaine and alcohol use lowered his inhibition enough that caused him to jump from the wall. At this time, he has no further complaints aside from pain but manageable at this time. Substance Use History: Problem Alcohol Withdrawal Syndrome Without Complication (Hcc) Cocaine Use Disorder, Severe, Dependence (Hcc) Admits to start using when he was 18 years old but more recreationally until the last couple of years. Started using IV and snorting up to 1/2 oz daily but could spread it over a couple days depending on the situation. Longest period of sobriety was 5-6 years but with the recent change in life events, that is what sparked him to start using more frequently. Has not been to treatment for this before and interested in cocaine cessation. Nicotine Dependence, Cigarettes, Uncomplicated Smokes 1/2 ppd since he was 20 years old and hasn't tried to quit in the past. Adderall Use Disorder, Severe, Dependence (Hcc) Patient states that he started using it more consistently in May 2020 to Feb 2021. Using adderallabout 4-5x a week and in one sitting usually takes about 120 mg at a time. Never been to treatment for this before. Longest period of sobriety was for a week. Interested in stopping this as well. History of Methamphetamine Use Has used it in the past intermittently in 2013, 2014, and August 2020. Smoked it but states that severity of withdrawal from methamphetamines caused him to stop using it recently. Claims he does not have any issue with stopping from using this substance. Ecstasy Use Disorder, Moderate, Dependence (Hcc) Admits to using it since he was 18 years old. States that since May 2020, the use escalated to taking 10 tabs in one sitting about once or twice a week. However, he does admit to a couple weeks of sobriety since stopping in late February 2021. Has never been to treatment for this before. Fall From [facility], Initial Encounter Moderate Episode of Recurrent Major Depressive Disorder (Hcc) Alcohol Use Disorder, Severe, in Controlled Environment (Hcc) Drinking 5 days in a row than followed by a break for 2 days before drinking again. Uses up to 1/2 gallon of vodka with 12-16 bottles of beer all within that period of time. Started when he was 15 years old but did not escalate until he was 20 years old. Admits to history of hospitalizations for alcohol related withdrawals/seizures before. Has been to treatment before with most recent was in February 2021 at [facility] without any medication assisted therapy at that time. Left 2.5 weeks ago as he wanted to drink at that time. Longest period of sobriety was fora year in [id number] when he still had housing with his parents and was working. Was also on Vivitrol in [place] previously last year for 3 months and found it helpful in blocking the euphoria from his drinking. Social History Socioeconomic History Marital status: Single Tobacco Use Smoking status: Current Every Day Smoker Types: Cigarettes Smokeless tobacco: Never Used Vaping Use Vaping Use: Unknown Substance and Sexual Activity Alcohol use: Never Drug use: Yes Types: IV, Cocaine History reviewed. No pertinent past medical history. History reviewed. No pertinent surgical history. History reviewed. No pertinent family history. Psychiatric History: Diagnoses: major depressive disorder and bipolar disorder Medications: Per MAR Psychiatric provider/mental health counselor: Yes Suicidal ideation or Suicidal attempt: Yes, cause of current hospitalization Allergies reviewed: Patient has no known allergies. Home Medications: Outpatient Medications as of 04/01/2021 Medication Sig ascorbic acid (VITAMIN C ORAL) Take 1 tablet by mouth daily . b complex vitamins tablet Take 1 tablet by mouth daily . cetirizine (ZYRTEC) 10 MG tablet Take 10 mg by mouth daily as needed for allergies . cholecalciferol, vitamin D3, (VITAMIN D3 ORAL) Take 1 capsule by mouth daily . multivitamin (THERAGRAN) per tablet Take 1 tablet by mouth daily . vitamin E acetate (VITAMIN E ORAL) Take 1 capsule by mouth daily . Review of Systems: The following system(s) were reviewed and pertinent findings noted: Review of Systems Constitutional: Negative for chills, diaphoresis, fatigue and fever. HENT: Negative for congestion, rhinorrhea and sinus pressure. Respiratory: Negative for cough, choking, chest tightness, shortness of breath, wheezing and stridor. Cardiovascular: Negative for chest pain. Gastrointestinal: Negative for abdominal pain, constipation, diarrhea, nausea and vomiting. Musculoskeletal: Negative for arthralgias and back pain. Neurological: Negative for dizziness, tremors, speech difficulty, weakness, light-headedness, numbness and headaches. Psychiatric/Behavioral: Negative for agitation, confusion, decreased concentration and hallucinations. The patient is not nervous/anxious. Objective: Vital Signs: BP (!) 90/57 (BP Location: Right arm, Patient Position: Lying) Pulse 75 Temp 98 F (36.7 C) (Oral) Resp 16 Ht 6' Wt 99.8 kg (220 lb) SpO2 96% BMI 29.84 kg/m Physical Exam Vitals reviewed. Constitutional: General: He is not in acute distress. Appearance: He is obese. He is not ill-appearing, toxic-appearing or diaphoretic. HENT: Head: Normocephalic. Right Ear: External ear normal. Left Ear: External ear normal. Nose: Nose normal. Mouth/Throat: Mouth: Mucous membranes are moist. Pharynx: Oropharynx is clear. Eyes: General: No scleral icterus. Cardiovascular: Rate and Rhythm: Normal rate and regular rhythm. Pulses: Normal pulses. Heart sounds: Normal heart sounds. No murmur heard. No friction rub. No gallop. Pulmonary: Effort: Pulmonary effort is normal. No respiratory distress. Breath sounds: No stridor. No wheezing, rhonchi or rales. Skin: General: Skin is warm and dry. Psychiatric: Mood and Affect: Mood normal. Behavior: Behavior normal. Thought Content: Thought content normal. Judgment: Judgment normal. Laboratory and Additional Data Reviewed: Laboratory 04/01/21 1:02 PM Microbiology 04/01/21 1:02 PM Pathology 04/01/21 1:02 PM Radiology 04/01/21 1:02 PM Cardiology 04/01/21 1:02 PM Medications 04/01/21 1:02 PM Lab Results Component Value Date WBC 6.60 04/01/2021 HGB 13.8 04/01/2021 HCT 39.7 (L) 04/01/2021 MCV 85.7 04/01/2021 PLT 269 04/01/2021 Lab Results Component Value Date GLUCOSE 110 (H) 04/01/2021 CALCIUM 8.5 04/01/2021 NA 139 04/01/2021 K 3.9 04/01/2021 CL 105 04/01/2021 BUN 13 04/01/2021 CREATININE 0.95 04/01/2021 EGFR 102 04/01/2021 ALBUMIN 3.8 03/30/2021 PROT 6.7 03/30/2021 AST 20 03/30/2021 ALT 21 03/30/2021 ALKPHOS 67 03/30/2021 BILITOT <0.2 03/30/2021 No results found for: AMPHUR, BARBUR, BENZUR, THCUR, COCAINESUR, URMETH, OPIATEUR, UROXYCODONE, FENTANYLUR, BUPUR Thank you for allowing us to participate in the care of this patient. Please call [phone] or secure chat me for any questions or concerns related to the problems being addressed by the addiction consult team. Note was not shared with patient: 42 CFR Part 2 Regulations Associated attestation - Leroy Ortega MD - 04/01/2021 9:10 PM EST I evaluated the patient independently and performed history and physical examination. I have reviewed the documentation by Dr. Tray Henriquez (addiction medicine fellow) including any history, physical exam, diagnosis, assessment and plan of care. Discussed in detail about the patient and I agree with the documentation and plan of care except as noted in my attestation below. -Alcohol use disorder severe -Alcohol withdrawals uncomplicated -Cocaine use disorder severe -Cigarette nicotine dependence without complication -Ecstasy and Adderall use disorder Patient is currently having mild alcohol withdrawals. He was a started on CIWA and depending on hisbenzodiazepine utilization we might need to start him on fixed benzodiazepine taper. He admits to having significant psychiatric symptoms including suicidal ideation when he is under the influence of substances such as alcohol, cocaine. Follow-up treatment options discussed with the patient patient opted for inpatient residential treatment after his discharge. In the past he also has been on Vivitrol which helped his cravings he would like to consider that as part of his follow-up treatment. Currently because of his pain management needs we will hold off on starting any naltrexone. Will await for recommendation from behavioral health. * Kala Keller, OT - 04/01/2021 8:02 AM EST Occupational Therapy OCCUPATIONAL THERAPY EVALUATION AND TREATMENT NOTE OCCUPATIONAL THERAPY EVALUATION Skilled Therapy Needs After Discharge Anticipate Resolution of Current Assessment Limitations Including: Pain, Mechanical Barriers Are Skilled Therapy Services Needed After Discharge: No DME Recommendation: Elevated toilet seat, Tub seat (Defer to PT for mobility device if needed) DME Rationale: Patient's condition prevents him/her from accomplishing ADL without recommended equipment, Patient's condition creates an increased risk of safety hazard without recommended equipment,Functional reach deficit/ post surgical precaution adherence/ limitations of body habitus Rehab Potential: Good, For goals Outcomes Measures Prior Function Daily Activity Raw Score: 24 Prior Function Daily Activity % Impaired: 0% AM-PAC Daily Activity Raw Score: 19 AM-PAC Daily Activity % Impaired: 42.80% Occupational Therapy Assessment The patient's current functional participation deficits are grooming, UE dressing, LE dressing, bathing, toileting, home management, meal preparation, hobbies, functional mobility, driving. This reduced independence will limit their life roles of premorbid level individual, family member, communitymember. The patient's co morbidities do affect patient performance in the above activities and roles. The performance deficits are a result of musculoskeletal impairment(s) in trunk, right, upper extremity including strength, range of motion, balance, acitvity tolerance, pain, insight, safety, and pain intolerance, impulsivity, knowledge deficit. The patient's home setup is a barrier, limitations of family / caregiver support is a barrier for return to prior level of function. The patient's compliance is a barrier, awareness of own capacity and performance is a barrier to return to prior level of function. During the assessment, minimal to moderate modification of task was required and limited treatment options were identified in the plan of care. This consultation required brief review of the medical and therapy history. Activity Tolerance Activity Tolerance: Tolerates 10 - 20 min activity with multiple rests (Limited by c/o pain) Therapy Precautions Orthotic Devices: No Weight Bearing Status: [facility] General Rehab Precautions: Fall risk (R Rib Protection) Cognition Overall Cognitive Status: Within Functional Limits Arousal/Alertness: Appropriate responses to stimuli Orientation Level: Oriented X4 Executive functioning: WFL Safety Judgment: Decreased awareness of need for assistance Problem Solving: Assistance required to identify errors made Attention: Attends to distracted environment Hearing Status: [facility] Social Interaction: Cooperative, Impulsive Comments: No command following deficits noted ADL Feeding: Independent UE Dressing: Supervision, Increased time to complete, Set-up (doffing/donning 3 armed gown in standing with use of abundio dressing techniques.) LE Dressing: Stand by assist, Supervision, Set-up, Increased time to complete (supervision to thread in seated; SBA standing pant management) Bed Mobility Rolling: Modified independent, Head of bed flat Supine to Sit: Supervision, Head of bed flat Sit to Supine: (Pt seated in chair at end of session; sitter and RN present in room) Jewelry Making Instructor: bedrails Functional Transfers Sit to Stand: Stand by assist Bed to Chair Transfers: Stand by assist Jewelry Making Instructor: (None) Home Living Obtained Home Living and PLOF info from: Patient Lives With: Alone Type of Home: Homeless Mobility Equipment: Other (comment) (None) ADL Equipment: Other (comment) (None) Additional Objective Details - Home Living: Pt reports hx of falling while intoxicated Prior Level of Function Receives Help From: Other (Comment) (NA) Level of [place] - Transfers/Ambulation/Mobility: Independent with functional transfers, Independent with household ambulation, Independent with community ambulation (No AD or limitation) Level of [place] - ADLs: Independent Level of [place] - Homemaking: Independent Driving: Patient drives 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 OCCUPATIONAL THERAPY TREATMENT NOTE Total Treatment Time (Total Session Time): 33 Minutes Timed Code Treatment Minutes: 15 Minutes Cognitive Skills Development Skilled Intervention Provided: patient education For: necessary precautions (R rib protection principles) Resulting In: increased safety awareness Self-Care / ADL Overall ADL Performance - Skilled Intervention Provided: verbal cues, patient education, environmental setup/modification, facilitation, demonstration Overall ADL Performance - For: UE management, LE management, compensatory strategies, postural alignment, proper body mechanics, pursed lip breathing, safety during functional task(s) Overall ADL Performance - Resulting In: increased insight into deficits, improved participation in ADL task(s) Therapeutic Activities Bed Mobility Skilled Intervention Provided: verbal cues, demonstration, environmental setup/modification, facilitation, patient education For: LE positioning, UE positioning, logroll technique, initiation of task, postural alignment, proper body mechanics, pursed lip breathing Resulting In: increased participation in mobility task(s) Functional Transfers Skilled Intervention Provided: environmental setup/modification, facilitation, verbal cues, patienteducation, monitoring patient response with positional changes For: controlled descent, proper body mechanics, pursed lip breathing, safety during functional task(s) Resulting In: increased upright tolerance for functional task(s) Additional Treatment Details Pt educated re: role and purpose of OT in acute care. Instructed pt in use of energy conservation techniques; handout provided. Pt instructed in use of pillow or arms for splinting abdomen when coughing or sneezing. Pt with slight + orthostatics with supine to sit and sit to stand, RN present and aware. Symptomatic with symptoms resolving within 2-3 minutes. History reviewed. No pertinent past medical history. History reviewed. No pertinent surgical history. For complete objective data, detailed plan of care and patient education refer to: OT Evaluation flowsheet, OT Evaluation and Treatment flowsheet, OT Treatment flowsheet, patient Plan of Care, Plan of Care progress note, and Patient Education. This note stands as the current Discharge Summary upon patient discharge from the hospital or completion of Occupational Therapy Plan of Care. * Lc Judge MD - 03/31/2021 10:59 AM ESTAssociated Order(s): IP CONSULT TO BEHAVIORAL HEALTH Behavioral Health Consult Patient Name: Mckinley Roman Admit Date: 2200312 MR #: [id number] : 1985 Referring Provider: Juan Miguel Al MD Primary Care Provider: Physician No Assessment Mckinley Roman is a 36 y.o. male with a history of Alcohol use disorder and Substance use Disorder as well as problems with mood/anxiety/insomnia that has been diagnosed in various ways due to contextof alcohol use. He jumped from ~25 feet while intoxicated. Diagnosis & Plan/Recommendations Substance use disorder Assessment & Plan Patient reports 3 day h/o injecting Cocaine along with his excessive alcohol use. He has done this before as well as tried Methamphetamine which did not agree with him. -Addiction Medicine consulted. Alcohol use disorder, severe, in controlled environment (HCC) Assessment & Plan Patient with h/o binges that can be close in time and he has had one over the past 7 days after onemonth of sobriety at [facility] which he left to drink ~2.5 weeks ago. He endorses h/o DT's at times, but AST/ALT is WNL currently and BAL at admission was 0.197 and he says he was heavily intoxicated . -Addiction Medicine consulted. Moderate episode of recurrent major depressive disorder (HCC) Assessment & Plan By history. Rule out Bipolar. Alcohol has been a consistent confounding factor, but there is something underlying it and he has been on a variety of antidepressants, mood stabilizers, and antipsychotics in the past to help address mood, anxiety, and insomnia. He has cut himself w/SI in the past andnow has jumped from a building, but on all accounts it has been done while intoxicated. Of all medication trials he has found Effexor for mood/anxiety most helpful as well as Melatonin for sleep. When asked about SI today he paused and said not really . Addiction Medicine will be needed re: plan and support for cessation of alcohol use which is his major risk factor for suicide. -Supportive therapy. -Start Effexor XR 37.5mg qday for depression/anxiety. -Start Melatonin 5mg at bedtime for insomnia. -Add PRN Trazodone for sleep. -Consult Addiction Medicine. -Continue No AMA/suicide precautions for now, dispo has yet to be determined. Treatment options and alternatives reviewed with patient. Risks, benefits, side effects of all psychiatric medications discussed with patient and informed consent obtained. All questions were answered. Thank you for this consult. Please call with questions. Comorbid issues impacting my care plan include non-adherence, substance use and homelessness. Our service will follow as needed. Reason for Consult: Suicide attempt History of Present Illness: Mckinley Roman is a 36 y.o. male with a history of Alcohol use disorder and Substance use Disorder as well as problems with mood/anxiety/insomnia that has been diagnosed invarious ways due to context of alcohol use. He jumped from ~25 feet while intoxicated. Reviewed records. Patient relates he has a 16 year h/o heavy but intermittent alcohol use that he describes as a binge pattern. He has not been able to maintain enough sobriety in that timeframe for a definitive psychiatric diagnosis, but says it has been speculated he could have MDD, LYNNETTE, and possibly Biolar 2. He has been tried on several antidepressants, mood stabilizers, and even antipsychotics most of which he has either not tolerated or not stayed on long enough to gauge effects. Over this time frame has had several hospitalizations tied to his alcohol use and has harmed himself on occasion with cutting himself, though he says attempts to harm himself have always been in the context of being intoxicated. This would include his current situation when he jumped off a buildingwhile heavily intoxicated . He says he [place] [facility] [place] left to drink about 2.5 weeks ago. He has been bingeing heavily the past 7 days and was shooting cocaine with a needle the past 3 days. Today he is pleasant, cooperative, and w/o signs/sxs of delirium, psychosis, or ora. When asked about SI he said not really. He wants help and stopping alcohol use would go a long way in this direction. He says the Effexor was probably the most helpful medication he has been on for depression/anxiety and melatonin worked best for sleep with Trazodone being helpful as well. He was told we would have Addiction medicine talk to him and see if a plan can be come up with that gives him adequate support. In the meantime will maintain suicide precautions. Past Psychiatric History Past diagnoses: Bipolar 2, MDD, LYNNETTE, Alcohol Abuse, Stimulant Abuse, Alcohol- induced Mood Disorder Past medications: several antidepressants, mood stabilizers, and antipsychotics. Past hospitalizations: several, but mostly for detox Past suicide attempts: cutting while intoxicated Past self injurious behavior: Outpatient linkage: None at present The patient otherwise denies any previous psychiatric problems or diagnoses, inpatient or outpatient mental health care, suicide attempts, use of psychotropic medications, or any self injurious behavior. Family Psychiatric History Mother with labile mood and depression. Paternal grandfather committed suicide. Social History Living situation: homeless Employment: looking for it Education: 2 years of college Sexual orientation: did not enquire Marital Status: single Children: none Legal History: fpc for alcohol related offenses Trauma History: x1 LOC History: denies Yarsanism: Rastafarian Access to firearms: denies Substance use History Nicotine: 8-10 cigs/day Alcohol: h/o regular binges Illicit substances: cocaine Rehab: yes Medical History: I have reviewed the patient's other history as below: History reviewed. No pertinent past medical history. History reviewed. No pertinent surgical history. Family History: History reviewed. No pertinent family history. Allergy Information: I have reviewed the patient's allergies. Patient has no known allergies. Home Medications: Outpatient Medications as of 03/31/2021 Medication Sig ascorbic acid (VITAMIN C ORAL) Take 1 tablet by mouth daily . b complex vitamins tablet Take 1 tablet by mouth daily . cetirizine (ZYRTEC) 10 MG tablet Take 10 mg by mouth daily as needed for allergies . cholecalciferol, vitamin D3, (VITAMIN D3 ORAL) Take 1 capsule by mouth daily . multivitamin (THERAGRAN) per tablet Take 1 tablet by mouth daily . vitamin E acetate (VITAMIN E ORAL) Take 1 capsule by mouth daily . Review of Systems: Constitutional: Denies fever, chills, diaphoresis, malaise Eyes: Denies blurred vision, double vision ENT: Denies nasal congestion, sore throat Neurological: Denies headache, photophobia, weakness, numbness CVS: Denies chest pain or palpitations Respiratory: Denies dyspnea or cough Musculoskeletal: Denies joint pain or muscle aches GI: Denies nausea, vomiting, constipation, or diarrhea : Denies urinary urgency, frequency, or burning Integumentary: Denies itching or rash Endocrine: Denies heat/cold intolerance or weight loss/weight gain Physical Examination: Vital Signs: BP 137/80 Pulse 74 Temp 97.9 F (36.6 C) Resp 18 Ht 6' Wt 99.8 kg (220 lb) SpO2 98% BMI 29.84 kg/m Mental Status Evaluation: General Appearance & Behavior: age appropriate, pleasant, cooperative, good eye contact Grooming & Hygiene: hospital gown Psychomotor Activity: no psychomotor abnormalities or muscle atrophy noted Gait & Station gait and station not observed as patient laying in bed Speech: normal rate, rhythym, volume, and spontaneity Flow of Thought: linear and goal directed Thought Associations: Intact Content of Thought: No evidence of suicidal ideations/homicidal ideations/psychosis Mood: okay Affect: restricted Insight: good Judgment: poor Orientation: alert and oriented to person, place, time, and circumstances Memory: intact recent and remote Attention: adequate Concentration: intact Language: fluent Fund of Knowledge: estimated average intelligence Laboratory and Additional Data Reviewed: Laboratory 03/31/21 10:59 AM Cardiology 03/31/21 10:59 AM EKG Medications 03/31/21 10:59 AM Transcriptions 03/31/21 10:59 AM Lc Judge MD 03/31/2021 10:59 AM * NASREEN Rogers - 03/31/2021 3:09 AM ESTAssociated Order(s): ED CONSULT TO PSYCH - [facility] Consult was not completed, as pt is being medically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 UROXYCODONE, FENTANYLUR, BUPUR Thank you for allowing us to participate in the care of this patient. Please call [phone] or secure chat me for any questions or concerns related to the problems being addressed by the addiction consult team. Note was not shared with patient: 42 CFR Part 2 Regulations Associated attestation - Leroy Ortega MD - 04/01/2021 9:10 PM EST I evaluated the patient independently and performed history and physical examination. I have reviewed the documentation by Dr. Tray Henriquez (addiction medicine fellow) including any history, physical exam, diagnosis, assessment and plan of care. Discussed in detail about the patient and I agree with the documentation and plan of care except as noted in my attestation below. -Alcohol use disorder severe -Alcohol withdrawals uncomplicated -Cocaine use disorder severe -Cigarette nicotine dependence without complication -Ecstasy and Adderall use disorder Patient is currently having mild alcohol withdrawals. He was a started on CIWA and depending on hisbenzodiazepine utilization we might need to start him on fixed benzodiazepine taper. He admits to having significant psychiatric symptoms including suicidal ideation when he is under the influence of substances such as alcohol, cocaine. Follow-up treatment options discussed with the patient patient opted for inpatient residential treatment after his discharge. In the past he also has been on Vivitrol which helped his cravings he would like to consider that as part of his follow-up treatment. Currently because of his pain management needs we will hold off on starting any naltrexone. Will await for recommendation from behavioral health. [id number] Consult note* Kala Keller, OT - 04/01/2021 8:02 AM EST Occupational Therapy OCCUPATIONAL THERAPY EVALUATION AND TREATMENT NOTE OCCUPATIONAL THERAPY EVALUATION Skilled Therapy Needs After Discharge Anticipate Resolution of Current Assessment Limitations Including: Pain, Mechanical Barriers Are Skilled Therapy Services Needed After Discharge: No DME Recommendation: Elevated toilet seat, Tub seat (Defer to PT for mobility device if needed) DME Rationale: Patient's condition prevents him/her from accomplishing ADL without recommended equipment, Patient's condition creates an increased risk of safety hazard without recommended equipment,Functional reach deficit/ post surgical precaution adherence/ limitations of body habitus Rehab Potential: Good, For goals Outcomes Measures Prior Function Daily Activity Raw Score: 24 Prior Function Daily Activity % Impaired: 0% AM-PAC Daily Activity Raw Score: 19 AM-PAC Daily Activity % Impaired: 42.80% Occupational Therapy Assessment The patient's current functional participation deficits are grooming, UE dressing, LE dressing, bathing, toileting, home management, meal preparation, hobbies, functional mobility, driving. This reduced independence will limit their life roles of premorbid level individual, family member, communitymember. The patient's co morbidities do affect patient performance in the above activities and roles. The performance deficits are a result of musculoskeletal impairment(s) in trunk, right, upper extremity including strength, range of motion, balance, acitvity tolerance, pain, insight, safety, and pain intolerance, impulsivity, knowledge deficit. The patient's home setup is a barrier, limitations of family / caregiver support is a barrier for return to prior level of function. The patient's compliance is a barrier, awareness of own capacity and performance is a barrier to return to prior level of function. During the assessment, minimal to moderate modification of task was required and limited treatment options were identified in the plan of care. This consultation required brief review of the medical and therapy history. Activity Tolerance Activity Tolerance: Tolerates 10 - 20 min activity with multiple rests (Limited by c/o pain) Therapy Precautions Orthotic Devices: No Weight Bearing Status: WFL General Rehab Precautions: Fall risk (R Rib Protection) Cognition Overall Cognitive Status: Within Functional Limits Arousal/Alertness: Appropriate responses to stimuli Orientation Level: Oriented X4 Executive functioning: WFL Safety Judgment: Decreased awareness of need for assistance Problem Solving: Assistance required to identify errors made Attention: Attends to distracted environment Hearing Status: [facility] Social Interaction: Cooperative, Impulsive Comments: No command following deficits noted ADL Feeding: Independent UE Dressing: Supervision, Increased time to complete, Set-up (doffing/donning 3 armed gown in standing with use of abundio dressing techniques.) LE Dressing: Stand by assist, Supervision, Set-up, Increased time to complete (supervision to thread in seated; SBA standing pant management) Bed Mobility Rolling: Modified independent, Head of bed flat Supine to Sit: Supervision, Head of bed flat Sit to Supine: (Pt seated in chair at end of session; sitter and RN present in room) Jewelry Making Instructor: bedrails Functional Transfers Sit to Stand: Stand by assist Bed to Chair Transfers: Stand by assist Jewelry Making Instructor: (None) Home Living Obtained Home Living and PLOF info from: Patient Lives With: Alone Type of Home: Homeless Mobility Equipment: Other (comment) (None) ADL Equipment: Other (comment) (None) Additional Objective Details - Home Living: Pt reports hx of falling while intoxicated Prior Level of Function Receives Help From: Other (Comment) (NA) Level of [place] - Transfers/Ambulation/Mobility: Independent with functional transfers, Independent with household ambulation, Independent with community ambulation (No AD or limitation) Level of [place] - ADLs: Independent Level of [place] - Homemaking: Independent Driving: Patient drives 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 OCCUPATIONAL THERAPY TREATMENT NOTE Total Treatment Time (Total Session Time): 33 Minutes Timed Code Treatment Minutes: 15 Minutes Cognitive Skills Development Skilled Intervention Provided: patient education For: necessary precautions (R rib protection principles) Resulting In: increased safety awareness Self-Care / ADL Overall ADL Performance - Skilled Intervention Provided: verbal cues, patient education, environmental setup/modification, facilitation, demonstration Overall ADL Performance - For: UE management, LE management, compensatory strategies, postural alignment, proper body mechanics, pursed lip breathing, safety during functional task(s) Overall ADL Performance - Resulting In: increased insight into deficits, improved participation in ADL task(s) Therapeutic Activities Bed Mobility Skilled Intervention Provided: verbal cues, demonstration, environmental setup/modification, facilitation, patient education For: LE positioning, UE positioning, logroll technique, initiation of task, postural alignment, proper body mechanics, pursed lip breathing Resulting In: increased participation in mobility task(s) Functional Transfers Skilled Intervention Provided: environmental setup/modification, facilitation, verbal cues, patienteducation, monitoring patient response with positional changes For: controlled descent, proper body mechanics, pursed lip breathing, safety during functional task(s) Resulting In: increased upright tolerance for functional task(s) Additional Treatment Details Pt educated re: role and purpose of OT in acute care. Instructed pt in use of energy conservation techniques; handout provided. Pt instructed in use of pillow or arms for splinting abdomen when coughing or sneezing. Pt with slight + orthostatics with supine to sit and sit to stand, RN present and aware. Symptomatic with symptoms resolving within 2-3 minutes. History reviewed. No pertinent past medical history. History reviewed. No pertinent surgical history. For complete objective data, detailed plan of care and patient education refer to: OT Evaluation flowsheet, OT Evaluation and Treatment flowsheet, OT Treatment flowsheet, patient Plan of Care, Plan of Care progress note, and Patient Education. This note stands as the current Discharge Summary upon patient discharge from the hospital or completion of Occupational Therapy Plan of Care. [id number] Note* Sign Off Note - Rahda Sanchez PA-C - 03/31/2021 7:04 PM EST Neurosurgery Sign-Off Consulting Neurosurgeon: Dr. Conti Diagnosis: 1. Right lower extremity weakness 2. Right upper extremity weakness 3. Non-dermatomal patchy paresthesias right upper and bilateral lower extremities 4. IVDU Plan: - No additional imaging needed - Follow-up in four weeks in outpatient clinic to check strength - No acute neurosurgical intervention -Activity as tolerated from neurosurgical perspective -No dietary restrictions from neurosurgical perspective Discharge instructions updated with appropriate follow-up. Please re-consult with any questions, concerns, or clinical updates. Radha Sanchez PA-C 03/31/21 7:04 PM [employer] Work Phone: 1(648) 987-605302-21-2022 Note* Quick Note - Radha Sanchez PA-C - 03/31/2021 4:03 PM EST Neurosurgery Quick Note Patient re-examined on rounds. States he feels like he is getting stronger. RUE: 5/5 delt, 5/5 bi, 5/5 tri, 4/5 package sorter LUE: 5/5 delt, 5/5 bi, 5/5 tri, 4/5 package sorter RLE: 5/5 hf, 5/5 ke, 5/5 df, 5/5 pf, 5/5 ehl LLE: 5/5 hf, 5/5 ke, 5/5 df, 5/5 pf, 5/5 ehl A/P - Cancel OR tomorrow - Cancel MAP protocol - No additional imaging needed - Follow-up in four weeks in outpatient clinic to check strength Radha Sanchez PA-C 03/31/21 4:03 PM Vocera: Neurosurgery REZA [id number] Note* Quick Note - Liliam Trivedi CNP - 03/31/2021 2:36 PM EST Addiction Medicine Quick Note: Consult received and documentation has been reviewed. Unfortunately Addiction Medicine is unable to see patient today. We will plan to evaluate patient on the next full business day to complete the consult. In the meantime, please feel free to call [phone] with any urgent questions or concerns. Thank you. Addiction Medicine Consult Team [employer] Work Phone: 1(144) 177-647002-21-2022 Note* Restricted Alcohol/Drug Screening - LEODAN Spicer - 03/31/2021 12:56 PM EST Restricted Alcohol/Drug Screening Date: 03/31/2021 Time: 12:56 PM This Note contains information protected by federal regulations (42 CFR Part 2) that require even greater restrictions than the rules for other medical records. The Part 2 regulations even restrict how this information may be shared within [facility]. Accordingly, this information should NOT be viewed except by caregivers when needed for the limited purpose of diagnosing, treating or making a referral in relation to alcohol/drug abuse or by caregivers when needed to treat the patient in a medical emergency. The Part 2 regulations also have special rules regarding disclosure of this information. To ensure compliance with these rules, this Note should NOT be printed and released under any circumstance, unless released with valid authorization by the Health Information Management (HIM) Department. Patient Name: Mckinley Roman Date of : 1985 Sex: Male Admit Date/Time: 03/31/2021 1:16 AM Reason for Intervention: Review of medical record indicates AOD. [facility] Clinician did not do an SBIRT or PTSD screen as Behavioral Medicine and Addiction Medicine wereboth consulted. If needed, patient can contact the [facility] at [phone] with questions and resources. [facility] Clinician signing off. Electronically signed by: ROSSANA Connelly, PRE BILLING SPECIALIST Trauma [facility] Clinician Trauma Services [facility] or [phone] [id number] Consult note* Lc Judge MD - 03/31/2021 10:59 AM ESTAssociated Order(s): IP CONSULT TO BEHAVIORAL HEALTH Behavioral Health Consult Patient Name: Mckinley Roman Admit Date: 2200312 MR #: [id number] : 1985 Referring Provider: Juan Miguel Al MD Primary Care Provider: Physician No Assessment Mckinley Roman is a 36 y.o. male with a history of Alcohol use disorder and Substance use Disorder as well as problems with mood/anxiety/insomnia that has been diagnosed in various ways due to contextof alcohol use. He jumped from ~25 feet while intoxicated. Diagnosis & Plan/Recommendations Substance use disorder Assessment & Plan Patient reports 3 day h/o injecting Cocaine along with his excessive alcohol use. He has done this before as well as tried Methamphetamine which did not agree with him. -Addiction Medicine consulted. Alcohol use disorder, severe, in controlled environment (HCC) Assessment & Plan Patient with h/o binges that can be close in time and he has had one over the past 7 days after onemonth of sobriety at [facility] which he left to drink ~2.5 weeks ago. He endorses h/o DT's at times, but AST/ALT is WNL currently and BAL at admission was 0.197 and he says he was heavily intoxicated . -Addiction Medicine consulted. Moderate episode of recurrent major depressive disorder (HCC) Assessment & Plan By history. Rule out Bipolar. Alcohol has been a consistent confounding factor, but there is something underlying it and he has been on a variety of antidepressants, mood stabilizers, and antipsychotics in the past to help address mood, anxiety, and insomnia. He has cut himself w/SI in the past andnow has jumped from a building, but on all accounts it has been done while intoxicated. Of all medication trials he has found Effexor for mood/anxiety most helpful as well as Melatonin for sleep. When asked about SI today he paused and said not really . Addiction Medicine will be needed re: plan and support for cessation of alcohol use which is his major risk factor for suicide. -Supportive therapy. -Start Effexor XR 37.5mg qday for depression/anxiety. -Start Melatonin 5mg at bedtime for insomnia. -Add PRN Trazodone for sleep. -Consult Addiction Medicine. -Continue No AMA/suicide precautions for now, dispo has yet to be determined. Treatment options and alternatives reviewed with patient. Risks, benefits, side effects of all psychiatric medications discussed with patient and informed consent obtained. All questions were answered. Thank you for this consult. Please call with questions. Comorbid issues impacting my care plan include non-adherence, substance use and homelessness. Our service will follow as needed. Reason for Consult: Suicide attempt History of Present Illness: Mckinley Roman is a 36 y.o. male with a history of Alcohol use disorder and Substance use Disorder as well as problems with mood/anxiety/insomnia that has been diagnosed invarious ways due to context of alcohol use. He jumped from ~25 feet while intoxicated. Reviewed records. Patient relates he has a 16 year h/o heavy but intermittent alcohol use that he describes as a binge pattern. He has not been able to maintain enough sobriety in that timeframe for a definitive psychiatric diagnosis, but says it has been speculated he could have MDD, LYNNETTE, and possibly Biolar 2. He has been tried on several antidepressants, mood stabilizers, and even antipsychotics most of which he has either not tolerated or not stayed on long enough to gauge effects. Over this time frame has had several hospitalizations tied to his alcohol use and has harmed himself on occasion with cutting himself, though he says attempts to harm himself have always been in the context of being intoxicated. This would include his current situation when he jumped off a buildingwhile heavily intoxicated . He says he was at [place] [facility] [place] left to drink about 2.5 weeks ago. He has been bingeing heavily the past 7 days and was shooting cocaine with a needle the past 3 days. Today he is pleasant, cooperative, and w/o signs/sxs of delirium, psychosis, or ora. When asked about SI he said not really. He wants help and stopping alcohol use would go a long way in this direction. He says the Effexor was probably the most helpful medication he has been on for depression/anxiety and melatonin worked best for sleep with Trazodone being helpful as well. He was told we would have Addiction medicine talk to him and see if a plan can be come up with that gives him adequate support. In the meantime will maintain suicide precautions. Past Psychiatric History Past diagnoses: Bipolar 2, MDD, LYNNETTE, Alcohol Abuse, Stimulant Abuse, Alcohol- induced Mood Disorder Past medications: several antidepressants, mood stabilizers, and antipsychotics. Past hospitalizations: several, but mostly for detox Past suicide attempts: cutting while intoxicated Past self injurious behavior: Outpatient linkage: None at present The patient otherwise denies any previous psychiatric problems or diagnoses, inpatient or outpatient mental health care, suicide attempts, use of psychotropic medications, or any self injurious behavior. Family Psychiatric History Mother with labile mood and depression. Paternal grandfather committed suicide. Social History Living situation: homeless Employment: looking for it Education: 2 years of college Sexual orientation: did not enquire Marital Status: single Children: none Legal History: fpc for alcohol related offenses Trauma History: x1 LOC History: denies Yarsanism: Rastafarian Access to firearms: denies Substance use History Nicotine: 8-10 cigs/day Alcohol: h/o regular binges Illicit substances: cocaine Rehab: yes Medical History: I have reviewed the patient's other history as below: History reviewed. No pertinent past medical history. History reviewed. No pertinent surgical history. Family History: History reviewed. No pertinent family history. Allergy Information: I have reviewed the patient's allergies. Patient has no known allergies. Home Medications: Outpatient Medications as of 03/31/2021 Medication Sig ascorbic acid (VITAMIN C ORAL) Take 1 tablet by mouth daily . b complex vitamins tablet Take 1 tablet by mouth daily . cetirizine (ZYRTEC) 10 MG tablet Take 10 mg by mouth daily as needed for allergies . cholecalciferol, vitamin D3, (VITAMIN D3 ORAL) Take 1 capsule by mouth daily . multivitamin (THERAGRAN) per tablet Take 1 tablet by mouth daily . vitamin E acetate (VITAMIN E ORAL) Take 1 capsule by mouth daily . Review of Systems: Constitutional: Denies fever, chills, diaphoresis, malaise Eyes: Denies blurred vision, double vision ENT: Denies nasal congestion, sore throat Neurological: Denies headache, photophobia, weakness, numbness CVS: Denies chest pain or palpitations Respiratory: Denies dyspnea or cough Musculoskeletal: Denies joint pain or muscle aches GI: Denies nausea, vomiting, constipation, or diarrhea : Denies urinary urgency, frequency, or burning Integumentary: Denies itching or rash Endocrine: Denies heat/cold intolerance or weight loss/weight gain Physical Examination: Vital Signs: BP 137/80 Pulse 74 Temp 97.9 F (36.6 C) Resp 18 Ht 6' Wt 99.8 kg (220 lb) SpO2 98% BMI 29.84 kg/m Mental Status Evaluation: General Appearance & Behavior: age appropriate, pleasant, cooperative, good eye contact Grooming & Hygiene: hospital gown Psychomotor Activity: no psychomotor abnormalities or muscle atrophy noted Gait & Station gait and station not observed as patient laying in bed Speech: normal rate, rhythym, volume, and spontaneity Flow of Thought: linear and goal directed Thought Associations: Intact Content of Thought: No evidence of suicidal ideations/homicidal ideations/psychosis Mood: okay Affect: restricted Insight: good Judgment: poor Orientation: alert and oriented to person, place, time, and circumstances Memory: intact recent and remote Attention: adequate Concentration: intact Language: fluent Fund of Knowledge: estimated average intelligence Laboratory and Additional Data Reviewed: Laboratory 03/31/21 10:59 AM Cardiology 03/31/21 10:59 AM EKG Medications 03/31/21 10:59 AM Transcriptions 03/31/21 10:59 AM Lc Judge MD 03/31/2021 10:59 AM [id number] Evaluation + Plan note* Assessment & Plan Note - Lc Judge MD - 03/31/2021 10:58 AM ESTAssociated Problem(s): Substance use disorder Patient reports 3 day h/o injecting Cocaine along with his excessive alcohol use. He has done this before as well as tried Methamphetamine which did not agree with him. -Addiction Medicine consulted. [id number] Evaluation + Plan note* Assessment & Plan Note - Lc Judge MD - 03/31/2021 10:55 AM ESTAssociated Problem(s): Alcohol use disorder, severe, in controlled environment (HCC) Patient with h/o binges that can be close in time and he has had one over the past 7 days after onemonth of sobriety at [facility] which he left to drink ~2.5 weeks ago. He endorses h/o DT's at times, but AST/ALT is WNL currently and BAL at admission was 0.197 and he says he was heavily intoxicated . -Addiction Medicine consulted. [id number] Evaluation + Plan note* Assessment & Plan Note - Lc Judge MD - 03/31/2021 10:46 AM ESTAssociated Problem(s): Moderate episode of recurrent major depressive disorder (HCC) By history. Rule out Bipolar. Alcohol has been a consistent confounding factor, but there is something underlying it and he has been on a variety of antidepressants, mood stabilizers, and antipsychotics in the past to help address mood, anxiety, and insomnia. He has cut himself w/SI in the past andnow has jumped from a building, but on all accounts it has been done while intoxicated. Of all medication trials he has found Effexor for mood/anxiety most helpful as well as Melatonin for sleep. When asked about SI initially he said not really and has subsequently explained he has only ever harmed himself when intoxicated. Addiction Medicine will be needed re: plan and support for cessation ofalcohol use which is his major risk factor for suicide. -Supportive therapy. -Continue Effexor XR 37.5mg qday for depression/anxiety. -Continue Melatonin 5mg at bedtime for insomnia. -Consulted Addiction Medicine. -Discontinued No AMA/suicide. -F/u with program at [facility]. [id number] Emergency department Note* Nany Bose RN - 03/31/2021 6:31 AM EST Pt resting in bed comfortably, Pt breathing easy and unlabored, pt in correct non-ama gown under direct surveillence at this time. [id number] Emergency department Note* Nany Bose RN - 03/31/2021 6:31 AM EST Pt resting in bed comfortably, Pt breathing easy and unlabored, pt in correct non-ama gown under direct surveillence at this time. * Nany Bose RN - 03/31/2021 6:13 AM EST Pt resting in bed comfortably, Pt breathing easy and unlabored, pt in correct non-ama gown under direct surveillence at this time. * Nany Bose RN - 03/31/2021 5:25 AM EST Pt resting in bed comfortably, Pt breathing easy and unlabored, pt in correct non-ama gown under direct surveillence at this time. * Topher Perez DO - 03/31/2021 4:44 AM EST ED PROVIDER NOTE [facility] EMERGENCY DEPARTMENT NAME: Mckinley Roman AGE: 36 y.o. : 1985 VISIT DATE: 03/31/2021 CSN: [id number] PCP: Physician No No chief complaint on file. Medical Decision Making: Patient presents today as a trauma transfer after he intentionally jumped off of a 20 foot wall in an attempt to commit suicide. Patient was found to have right- sided rib fractures. Patient also has no sensation to his right upper extremity or movement in his right upper extremity. Has decreased movement and decrease in stations right lower extremity. He will be mated to trauma for further managem ent evaluation. Clinical Impression: 1. Suicide attempt (HCC) 2. Trauma 3. Closed fracture of multiple ribs of right side, initial encounter 4. Arm paresthesia, right ED Disposition ED Disposition Hospitalize Condition -- Comment Phone call required?: No HPI: Mckinley Roman is a 36 y.o. male who presents to the ED as a trauma transfer. Patient had attempted suicide by jumping off a 20 foot wall. Found to have right-sided rib fractures. On exam, he is complaining of right-sided chest pain as well as right-sided arm numbness and weakness and right-sided leg numbness and weakness. History reviewed. No pertinent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 the Trauma Service either in the ED, ICU, TICU, or Floor (GMCTRAUMA) CHIEF COMPLAINT: Jump from ~20 ft ht Trauma Category: Level 2 HISTORY OF PRESENT ILLNESS / INJURY (HPI): [include Pain, Quality, Radiation, Severity, Timing] 36 yo male who presents as a transfer for a suicide attempt. Pt recently has been injecting large amounts of cocaine and drinking alcohol heavily. Tried to jump off a ~20 ft wall/building tonight in a suicide attempt. Unknown LOC. Having diffuse pain (mostly R hip and ribs) and was agitated for EMS. Endorsing numbness & tingling down his right arm & won't move it. Noting hyperesthesias to bilateral lowers & abdomen. Went to OSH, found to have R 9-10 rib fx on images. Transferred to [place] for further mgmt. PAST MEDICAL HISTORY (PMH): Medical history: Denies -LMP (females only): No LMP for male patient. -Last tetanus: Last 2 years Surgical history: none Social history: -Place of residence (home, SNF, etc): Friend[facility] house -Tobacco use: Socially 15 years -EtOH use: Half gallon whiskey daily -Illicit drug use: Cocaine & adderall Family history: No bleeding disorders. MEDICATIONS: Outpatient Medications as of 03/30/2021 Medication Sig ascorbic acid (VITAMIN C ORAL) Take 1 tablet by mouth daily . b complex vitamins tablet Take 1 tablet by mouth daily . cetirizine (ZYRTEC) 10 MG tablet Take 10 mg by mouth daily as needed for allergies . cholecalciferol, vitamin D3, (VITAMIN D3 ORAL) Take 1 capsule by mouth daily . multivitamin (THERAGRAN) per tablet Take 1 tablet by mouth daily . vitamin E acetate (VITAMIN E ORAL) Take 1 capsule by mouth daily . ALLERGIES: No Known Allergies REVIEW OF SYSTEMS: [List positives and pertinent negatives] Constitutional Symptoms: Eyes: Ears, Nose, Mouth, Throat: Cardiovascular: Respiratory: Gastrointestinal: Genitourinary: Musculoskeletal: +right rib pain Skin/Breast: Neurological: +absent sensation to RUE, decreased sensation to RLE, scattered distribution of hyperesthesias Psychiatric: Endocrine: Hematologic/Lymphatic: Allergic/Immunologic: Other than the above items, the remainder of a complete review of systems is otherwise negative. [must have at least one positive or negative to validate this statement] PHYSICAL EXAM: Initial Presenting VS: [DO NOT LEAVE BLANK and NO DOT PHRASES] Temp: 97.7 F HR: 71 BP: 135/76 RR: 13 SpO2: 100 % PRIMARY SURVEY Airway Patent, trachea midline. Phonation is normal. Breathing Symmetric chest rise and fall. Breath sounds present bilaterally. Circulation Pulses 2+ throughout. Disability Moves extremities normally x 4. No lateralizing neurologic signs. Pupils 2 mm equal and reactive bilaterally. Alexander Coma Scale EYES (4-spont, 3-to verb stim, 2-to pain, 1-none) 4 VERBAL (5-oriented, 4-confused, 3-inappropriate, 2-incomprehensible, 1-none) 5 MOTOR (6-follows, 5-localizes, 4-withdraws, 3-flexion, 2-extension, 1-none) 6 GCS: 15 SECONDARY SURVEY General Appears age appropriate. In distress, complaining of R sided rib pain, abdominal pain, RLE pain HEENT Head normocephalic, PERRL, EOMI, mid face stable, tympanic membranes intact, no subconjunctival hemorrhage, nares patent bilaterally, no epistaxis, mouth clear of foreign bodies, no lacerationsor abrasions. Neck Cervical collar in place, no midline tenderness to palpation, no step offs, crepitus, or deformities. Chest/Respiratory Lungs clear bilaterally. Breathing is non-labored. Chest wall without tenderness to palpation, crepitus, deformities, lacerations, or abrasions. Cardiovascular RRR. No murmur, rub, gallop. 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 Abdomen Soft, nontender to palpation, non-peritoneal. No lacerations, abrasions or ecchymosis. Pelvis Stable, no crepitance. Non-tender. Rectal mandatory in Pelvic Fractures, Urethral Injuries, or Penetrating Abdominal/Pelvic Injuries Not done. Deferred Back/Spine TLS spine non-tender to palpation. No step-offs, deformities, lacerations or abrasions. Musculoskeletal Extremities without clubbing, cyanosis, edema. No obvious bony deformity, full ROM. Skin Warm and dry. No lesions of concern. Not jaundiced. No abrasions/contusions. Neurologic A&Ox3. No cerebellar signs. 0/5 strength to RUE with reported absence of sensation. +scattered distribution of hyperesthesias Psychiatric Normal mood. Normal affect. Appropriate insight into current situation. Other FAST Exam: Pericardial: Negative RUQ: Negative LUQ: Negative Pelvic: Negative EFAST (PTX): Negative FAST Completed by trauma help desk team leader: [providers First, Last Name] Julia Alvarado IMAGING STUDIES REVIEWED: [brief summary of results, in your own words] CXR: Did not perform Pelvis X-ray: Did not perform CT Head: Negative CT C-Spine: Negative CT T&L-Spine: Negative CTA Neck: Negative CTA Chest/Abd/Pelvis: No acute intrathoracic, intraabdominal or intrapelvic injury. Nondisplaced right 9th and 10th rib fractures posteriorly. No pneumothorax. CT Maxillofacial: Did not perform Other: MR spine: No acute or concerning abnormality of the cervical, thoracic and lumbar spine. Scattered degenerative changes most pronounced at C5-6 with resulting mild central canal stenosis with cord deformity but no cord signal abnormality. LABORATORY STUDIES: Results from trauma bay labs, including blood gas, were reviewed. Pertinent findings may be listed below: [no dot phrases] Chem wnl (Cr 1.02) AST/ALT ETOH 197--> 128 Trop [address] LA 2.3 TRAUMA BAY / ED PROCEDURES: [requires separate procedure note/dication] Procedure Performed Provider Location/Site/Description Suture closure of laceration: No Chest Tube: No Intubation: No CVC: No Arterial catheter: No Diagnostic Peritoneal Aspiration: No GMCTRAUMA Associated attestation - Nany Gaviria MD - 03/31/2021 5:42 AM EST Agree with resident note. Please see my separate note as well. [id number] History and physical note* Julia Alvarado MD - 03/31/2021 12:40 AM EST [facility] TRAU[facility] EVALUATION / HISTORY AND PHYSICAL / CONSULT NOTE MECHAN ISM OF INJURY: Fall(Jumped off ~20 ft building) LOC (yes/no?): Unknown Anticoagulant / Anti-platelet Rx? Denies Reason/Dx: N/A INJURIES: 1. R 9th and 10th rib fx SURGERIES/PROCEDURES: Date Operation/Procedure Provider Name ACTIVE MEDICAL PROBLEMS: 1. Substance use disorder 2. Suicide attempt 3. ETOH intoxication 4. Lactic acidosis INCIDENTAL FINDINGS: 1. Degenerative disc disease, particularly at C5-6 2. Mild maxillary sinus disease ADMISS ION PLAN OF CARE: [discuss plan for each injury] 1. R 9th and 10th rib fx: 1. Rib fx protocol: 1. Multimodal pain plan 2. Pulm hygiene 2. ETOH intoxication: 1. Supportive care 2. Consider CIWA protocol 3. Monitor for signs of withdrawal/seizure 3. Right arm paralysis & whole body hyperesthesias: NSG c/s & anthony-MRI to evaluate source. 1. Admit for Q4h neurochecks 2. 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 PT/OT 4. Behavioral health consult 4. Lactic acidosis: 1. Likely 2/2 to trauma vs cocaine 2. mIVF 3. Trend labs 5. Spine clearance status: - Cervical spine is clear. Cervical collar is off. - TLS-Spines are clear. 6. Need for Restraints: no. 7. Consultants notified (list specialty/name/time): JOSE/Pretty/[id number] Disposition: Admit to the Floor This patient is being seen by the Trauma Service either in the ED, ICU, TICU, or Floor (GMCTRAUMA) CHIEF COMPLAINT: Jump from ~20 ft ht Trauma Category: Level 2 HISTORY OF PRESENT ILLNESS / INJURY (HPI): [include Pain, Quality, Radiation, Severity, Timing] 36 yo male who presents as a transfer for a suicide attempt. Pt recently has been injecting large amounts of cocaine and drinking alcohol heavily. Tried to jump off a ~20 ft wall/building tonight in a suicide attempt. Unknown LOC. Having diffuse pain (mostly R hip and ribs) and was agitated for EMS. Endorsing numbness & tingling down his right arm & won't move it. Noting hyperesthesias to bilateral lowers & abdomen. Went to OSH, found to have R 9-10 rib fx on images. Transferred to [place] for further mgmt. PAST MEDICAL HISTORY (PMH): Medical history: Denies -LMP (females only): No LMP for male patient. -Last tetanus: Last 2 years Surgical history: none Social history: -Place of residence (home, SNF, etc): Friend's house -Tobacco use: Socially 15 years -EtOH use: Half gallon whiskey daily -Illicit drug use: Cocaine & adderall Family history: No bleeding disorders. MEDICATIONS: Outpatient Medications as of 03/30/2021 Medication Sig ascorbic acid (VITAMIN C ORAL) Take 1 tablet by mouth daily . b complex vitamins tablet Take 1 tablet by mouth daily . cetirizine (ZYRTEC) 10 MG tablet Take 10 mg by mouth daily as needed for allergies . cholecalciferol, vitamin D3, (VITAMIN D3 ORAL) Take 1 capsule by mouth daily . multivitamin (THERAGRAN) per tablet Take 1 tablet by mouth daily . vitamin E acetate (VITAMIN E ORAL) Take 1 capsule by mouth daily . ALLERGIES: No Known Allergies REVIEW OF SYSTEMS: [List positives and pertinent negatives] Constitutional Symptoms: Eyes: Ears, Nose, Mouth, Throat: Cardiovascular: Respiratory: Gastrointestinal: Genitourinary: Musculoskeletal: +right rib pain Skin/Breast: Neurological: +absent sensation to RUE, decreased sensation to RLE, scattered distribution of hyperesthesias Psychiatric: Endocrine: Hematologic/Lymphatic: Allergic/Immunologic: Other than the above items, the remainder of a complete review of systems is otherwise negative. [must have at least one positive or negative to validate this statement] PHYSICAL EXAM: Initial Presenting VS: [DO NOT LEAVE BLANK and NO DOT PHRASES] Temp: 97.7 F HR: 71 BP: 135/76 RR: 13 SpO2: 100 % PRIMARY SURVEY Airway Patent, trachea midline. Phonation is normal. Breathing Symmetric chest rise and fall. Breath sounds present bilaterally. Circulation Pulses 2+ throughout. Disability Moves extremities normally x 4. No lateralizing neurologic signs. Pupils 2 mm equal and reactive bilaterally. Alexander Coma Scale EYES (4-spont, 3-to verb stim, 2-to pain, 1-none) 4 VERBAL (5-oriented, 4-confused, 3-inappropriate, 2-incomprehensible, 1-none) 5 MOTOR (6-follows, 5-localizes, 4-withdraws, 3-flexion, 2-extension, 1-none) 6 GCS: 15 SECONDARY SURVEY General Appears age appropriate. In distress, complaining of R sided rib pain, abdominal pain, RLE pain HEENT Head normocephalic, PERRL, EOMI, mid face stable, tympanic membranes intact, no subconjunctival hemorrhage, nares patent bilaterally, no epistaxis, mouth clear of foreign bodies, no lacerationsor abrasions. Neck Cervical collar in place, no midline tenderness to palpation, no step offs, crepitus, or deformities. Chest/Respiratory Lungs clear bilaterally. Breathing is non-labored. Chest wall without tenderness to palpation, crepitus, deformities, lacerations, or abrasions. Cardiovascular RRR. No murmur, rub, gallop. 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 Abdomen Soft, nontender to palpation, non-peritoneal. No lacerations, abrasions or ecchymosis. Pelvis Stable, no crepitance. Non-tender. Rectal mandatory in Pelvic Fractures, Urethral Injuries, or Penetrating Abdominal/Pelvic Injuries Not done. Deferred Back/Spine TLS spine non-tender to palpation. No step-offs, deformities, lacerations or abrasions. Musculoskeletal Extremities without clubbing, cyanosis, edema. No obvious bony deformity, full ROM. Skin Warm and dry. No lesions of concern. Not jaundiced. No abrasions/contusions. Neurologic A&Ox3. No cerebellar signs. 0/5 strength to RUE with reported absence of sensation. +scattered distribution of hyperesthesias Psychiatric Normal mood. Normal affect. Appropriate insight into current situation. Other FAST Exam: Pericardial: Negative RUQ: Negative LUQ: Negative Pelvic: Negative EFAST (PTX): Negative FAST Completed by trauma help desk team leader: [providers First, Last Name] Julia Alvarado IMAGING STUDIES REVIEWED: [brief summary of results, in your own words] CXR: Did not perform Pelvis X-ray: Did not perform CT Head: Negative CT C-Spine: Negative CT T&L-Spine: Negative CTA Neck: Negative CTA Chest/Abd/Pelvis: No acute intrathoracic, intraabdominal or intrapelvic injury. Nondisplaced right 9th and 10th rib fractures posteriorly. No pneumothorax. CT Maxillofacial: Did not perform Other: MR spine: No acute or concerning abnormality of the cervical, thoracic and lumbar spine. Scattered degenerative changes most pronounced at C5-6 with resulting mild central canal stenosis with cord deformity but no cord signal abnormality. LABORATORY STUDIES: Results from trauma bay labs, including blood gas, were reviewed. Pertinent findings may be listed below: [no dot phrases] Chem wnl (Cr 1.02) AST/ALT ETOH 197--> 128 Trop [address] [place] 2.3 [place] / ED PROCEDURES: [requires separate procedure note/dication] Procedure Performed Provider Location/Site/Description Suture closure of laceration: No Chest Tube: No Intubation: No CVC: No Arterial catheter: No Diagnostic Peritoneal Aspiration: No GMCTRAUMA Associated attestation - Nany Gaviria MD - 03/31/2021 5:42 AM EST Agree with resident note. Please see my separate note as well. [facility] Diagnosis Fall from building, initial encounter- Primary Suicide attempt (HCC) Suicide and self-inflicted injury by unspecified means Trauma Injury, other and unspecified, unspecified site Closed fracture of multiple ribs of right side, initial encounter Arm paresthesia, right Disturbance of skin sensation Moderate episode of recurrent major depressive disorder (HCC) Alcohol use disorder, severe, in controlled environment (HCC) Substance use disorder Alcohol withdrawal syndrome without complication (HCC) Cocaine use disorder, severe, dependence (HCC) Nicotine dependence, cigarettes, uncomplicated Adderall use disorder, severe, dependence ([facility]) History of methamphetamine use Ecstasy use disorder, moderate, dependence ([facility]) documented in this encounter [facility] note* Diagnosis Depression with suicidal ideation- Primary Uncomplicated alcohol dependence Other and unspecified alcohol dependence, unspecified drinking behavior History of environmental allergies Other insomnia documented in this encounter [facility] note* Diagnosis Withdrawal syndrome Drug withdrawal documented in this encounter [facility] note* Diagnosis Alcohol abuse with intoxication- Primary Acute alcoholic intoxication in alcoholism, unspecified documented in this encounter [facility] note* Diagnosis Alcoholic intoxication without complication (CMS/HCC)- Primary documented in this encounter [facility] note* Diagnosis Nausea and vomiting, unspecified vomiting type- Primary documented in this encounter [facility] note* Diagnosis Suicidal ideation- Primary documented in this encounter [facility] note* Diagnosis Alcoholic intoxication without complication (CMS/HCC)- Primary Depression, unspecified depression type documented in this encounter [facility] note* Diagnosis Methamphetamine addiction- Primary Amphetamine and other psychostimulant dependence, unspecified Uncomplicated alcohol abuse Alcohol abuse, unspecified Polysubstance abuse Other, mixed, or unspecified nondependent drug abuse, unspecified documented in this encounter [facility] note* Diagnosis Polysubstance abuse- Primary Other, mixed, or unspecified nondependent drug abuse, unspecified documented in this encounter [facility] note* Diagnosis Alcohol dependence with unspecified alcohol-induced disorder (CMS/HCC)- Primary [facility] Diagnosis Screening due- Primary Tobacco dependence Tobacco use disorder Primary insomnia Persistent disorder of initiating or maintaining sleep Seasonal allergies Allergic rhinitis, cause unspecified [facility]* Diagnosis Alcohol use disorder, severe, in early remission, dependence (CMS/HCC)- Primary [facility]* Diagnosis Alcohol use disorder, severe, dependence- Primary Suicide ideation Suicidal ideation Alcoholic intoxication without complication [facility] Diagnosis Alcohol use disorder- Primary Homelessness Lack of housing documented in this encounter [facility] [employer] Phone: evaluation note* Diagnosis Alcohol intoxication- Primary Alcohol abuse, unspecified [facility] Diagnosis Alcoholic intoxication without complication (HC CODE)- Primary [facility] Diagnosis Alcohol abuse- Primary Alcohol abuse, unspecified [facility] Diagnosis Alcoholic intoxication without complication (HC CODE)- Primary [facility] Diagnosis Alcohol abuse- Primary Alcohol abuse, unspecified Anxiety Anxiety state, unspecified Left lower quadrant abdominal pain [facility] Diagnosis Alcoholic intoxication without complication (HC CODE)- Primary Alcohol abuse Alcohol abuse, unspecified [facility]* Diagnosis Alcohol problem drinking- Primary Alcohol abuse, unspecified [facility] Diagnosis Chest pain, unspecified type- Primary Alcoholic intoxication without complication (HC CODE) [facility] Diagnosis Alcohol abuse with withdrawal (HC CODE)- Primary Alcohol withdrawal syndrome without complication (HC CODE) Suicidal ideation Tobacco abuse Tobacco use disorder Cocaine abuse (HC CODE) Cocaine abuse, unspecified Mood disorder (HC CODE) Unspecified episodic mood disorder Depression, unspecified depression type Alcohol use disorder, severe, dependence (HC CODE) Methamphetamine use disorder, moderate (HC CODE) Cocaine use disorder, moderate, dependence (HC CODE) Opioid use disorder, moderate, dependence (HC CODE) Suicidal ideations Suicidal ideation Cocaine use Cocaine abuse, unspecified Methamphetamine use (HC CODE) Nondependent amphetamine or related acting sympathomimetic abuse, unspecified Nicotine dependence Tobacco use disorder Vapes nicotine containing substance [facility]* Diagnosis Alcohol intoxication with delirium (HC CODE)- Primary documented in this encounter [facility] note* Diagnosis Alcoholic intoxication with complication (HC CODE)- Primary Aggressive behavior Explosive personality disorder documented in this encounter [facility] note* Diagnosis Encounter for medical screening examination- Primary documented in this encounter [facility] note* Diagnosis Alcoholic intoxication without complication (HC CODE)- Primary documented in this encounter [facility] note* Diagnosis Alcoholic intoxication without complication (HC CODE)- Primary documented in this encounter [facility] note* Diagnosis Alcohol intoxication, uncomplicated (HC CODE)- Primary Suicidal ideation Alcoholic intoxication without complication (HC CODE) Generalized abdominal pain Abdominal pain, generalized Alcohol intoxication, uncomplicated (HC CODE) Depression, unspecified depression type Alcohol withdrawal syndrome with complication (HC CODE) Alcohol use disorder, severe, dependence (HC CODE) MDD (major depressive disorder), recurrent severe, without psychosis (HC CODE) Major depressive disorder, recurrent episode, severe, without mention of psychotic behavior Methamphetamine use disorder, moderate (HC CODE) Opioid use disorder, moderate, dependence (HC CODE) Tobacco use disorder, mild, abuse MDD (major depressive disorder), recurrent episode, moderate (HC CODE) Major depressive disorder, recurrent episode, moderate MDD (major depressive disorder), recurrent episode, mild (HC CODE) Major depressive disorder, recurrent episode, mild Suicidal ideations Suicidal ideation Nicotine dependence Tobacco use disorder Depression Depressive disorder, not elsewhere classified Abdominal pain Abdominal pain, unspecified site Nausea & vomiting Nausea with vomiting Alcohol withdrawal syndrome, uncomplicated (HC CODE) documented in this encounter [facility] note* Diagnosis Acute alcoholic intoxication without complication (HCC)- Primary documented in this encounter [facility] note* Diagnosis Acute alcoholic intoxication without complication (HCC)- Primary Alcohol abuse Alcohol abuse, unspecified documented in this encounter [facility] note* Diagnosis Alcoholism (HCC)- Primary Other and unspecified alcohol dependence, unspecified drinking behavior Hepatomegaly Liver lesion Other specified disorders of liver documented in this encounter [facility] note* Diagnosis Alcohol abuse- Primary Alcohol abuse, unspecified Injury of head, initial encounter Pain of upper abdomen Abdominal pain, other specified site documented in this encounter [facility] note* Diagnosis Injury of head, initial encounter- Primary Acute alcoholic intoxication without complication (HCC) documented in this encounter [facility] note* Diagnosis Fall, initial encounter- Primary documented in this encounter [facility] note* Diagnosis Alcohol abuse- Primary Alcohol abuse, unspecified Atypical chest pain Other chest pain documented in this encounter [facility] note* Diagnosis Acute alcoholic intoxication without complication (HCC)- Primary documented in this encounter [facility] note* Diagnosis Alcohol use disorder, moderate, dependence (HCC)- Primary documented in this encounter [facility] Discharge instructions* Attachments The following attachments cannot be sent through Care Everywhere. * Alcohol Use Disorder: General Info (Palestinian) * Alcohol Intoxication: Acute (Palestinian) [facility]* Attachments The following attachments cannot be sent through Care Everywhere. * Nausea and Vomiting (Palest[place]) [facility] Attachments The following attachments cannot be sent through Care Everywhere. * Alcohol Intoxication: Acute (Palestinian) * Depression: Chronic Disease (Palestinian) [facility]* Attachments The following attachments cannot be sent through Care Everywhere. * Substance Use Disorder (Palestinian) [facility]* Attachments The following attachments cannot be sent through Care Everywhere. * Alcohol Withdrawal: General Info (Palestinian) [facility] Attachments The following attachments cannot be sent through Care Everywhere. * Alcohol Withdrawal: General Info (Palestinian) * Alcohol Detoxification and Withdrawal (Palestinian) [facility] (Routine) Specialty Diagnoses / Procedures Referred By Alexander villalobos Referred To Contact Lety Simpson MD [address] [place] [address] Referral ID Status Reason Start Date Expiration Date Visits Re quested Visits Authorized * (Routine) - New Request Specialty Diagnoses / Procedures Referred By Alexander villalobos Referred To Contact Procedures DVT/VTE RISK ASSESSMENT Lety Simpson MD [address] [place] [address] Referral ID Status Reason Start Date Expiration Date V isits Requested Visits Authorized [id number] New Request 08/20/2021 09/14/2022 1 1 * (Routine) Specialty Diagnoses / Procedures Referred By Contac t Referred To Contact Flor Carrillo DO [address] [place] [id number] Referral ID Status Reason Start Date Expiration Date Visits Re quested Visits [facility]ized [facility] (Emergency) Specialty Diagnoses / Procedures Referred By Contac t Referred To Contact Anival Ritter PA-C [address] [place] [address] Referral ID Status Reason Start Date Expiration Date Visits Re quested Visits Authorized [facility])* (Emergency) Specialty Diagnoses / Procedures Referred By Contac t Referred To Contact [facility] [address] [phone] Referral ID Status Reason Start Date Expiration Date Visits Re quested Visits Authorized [facility])* (Emergency) Specialty Diagnoses / Procedures Referred By Contac t Referred To Contact [facility] [address] [address] Referral ID Status Reason Start Date Expiration Date Visits Re quested Visits Authorized [facility] Narrative* Auth/Cert Specialty Diagnoses / Procedures Referred By Contac t Referred To Contact Diagnoses Suicide attempt (HCC) Trauma Arm paresthesia, right Fall from building, initial encounter Closed fracture of multiple ribs of right side, initial encounter trauma, fall, SI Referral ID Status Reason Start Date Expiration Date Visits Re quested Visits Authorized [id number] 1 1 [facility] Advance Directives No Advanced Directives Records FoundDocuments on File Type Date Recorded 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 Will re-evaluate once patient has capacity. Full Code 04/25/2021 11:15 PM 08/20/2021 10:20 PM Latest Code Status on File Code Status Date Activated Date Inactivated Comments Full Code 03/19/2022 3:48 AM Code Status History Code Status Date Activated Date Inactivated Comments Full Code 03/19/2022 1:40 AM 03/19/2022 3:48 AM Full Code 08/20/2021 10:20 PM 03/19/2022 1:40 AM Presu med full code, patient without capacity and no alternative contacts listed. Will re-evaluate once patient has capacity. Full Code 04/25/2021 11:15 PM 08/20/2021 10:20 PM Latest Code Status on File Code Status Date Activated Date Inactivated Comments Full Code 03/19/2022 3:48 AM Code Status History Code Status Date Activated Date Inactivated Comments Full Code 03/19/2022 1:40 AM 03/19/2022 3:48 AM Full Code 08/20/2021 10:20 PM 03/19/2022 1:40 AM Presu med full code, patient without capacity and no alternative contacts listed. Will re-evaluate once patient has capacity. Full Code 04/25/2021 11:15 PM 08/20/2021 10:20 PM Latest Code Status on File Code Status Date Activated Date Inactivated Comments Total Support 01/06/2023 3:23 PM Latest Code Status on File Code Status Date Activated Date Inactivated Comments Total Support 01/06/2023 3:23 PM 01/07/2023 5:56 PM Latest Code Status on File Code Status Date Activated Date Inactivated Comments Total Support 01/06/2023 3:23 PM 01/07/2023 5:56 PM Latest Code Status on File Code Status Date Activated Date Inactivated Comments Total Support 02/12/2023 1:36 PM Code Status History Code Status Date Activated Date Inactivated Comments Total Support 01/06/2023 3:23 PM 01/07/2023 5:56 PM Latest Code Status on File Code Status Date Activated Date Inactivated Comments Full Code 05/15/2023 11:11 AM 05/16/2023 5:36 PM Latest Code Status on File Code Status Date Activated Date Inactivated Comments Full Code 06/30/2023 7:35 AM 06/30/2023 5:39 PM Code Status History Code Status Date Activated Date Inactivated Comments Full Code 05/15/2023 11:11 AM 05/16/2023 5:36 PM Summary Purpose Family History No Family History Records FoundNo Family History Records FoundNo Family History Records FoundNo Family History Records FoundNo Family History Records FoundNo Family History Records FoundNo Family History Records FoundNo Family History Records FoundNo Family History Records FoundNo Family History Records FoundNo Family History Records FoundNo Family History Records FoundNo Family History Records FoundNo Family History Records FoundNo Family History Records FoundNo Family History Records FoundNo Family History Records FoundNo Family History Records FoundNo Family History Records FoundNo Family History Records FoundNo Family History Records FoundNo Family History Records FoundNo Family History Records FoundNo Family History Records Found Reason for Referral Specialty Diagnoses / Procedures Referred By Contac t Referred To Contact Procedures ECG Pratibha Viera DO [address] [place] [address] Referral ID Status Reason Start Date Expiration Date V isits Requested Visits Authorized [id number] New Request 04/25/2021 05/20/2022 1 1 Specialty Diagnoses / Procedures Referred By Contac t Referred To Contact Procedures NO MECHANICAL DVT PROPHYLAXIS Pratibha Viera DO [address] [place] [address] Referral ID Status Reason Start Date Expiration Date V isits Requested Visits Authorized [id number] New Request 04/25/2021 05/20/2022 1 1 Specialty Diagnoses / Procedures Referred By Contac t Referred To Contact Procedures LOW RISK - NO PHARMACOLOGICAL DVT PROPHYLAXIS Pratibha Viera DO [address] [place] [address] Referral ID Status Reason Start Date Expiration Date V isits Requested Visits Authorized [id number] New Request 04/25/2021 05/20/2022 1 1 Specialty Diagnoses / Procedures Referred By Contac t Referred To Contact Procedures DVT/VTE RISK ASSESSMENT Pratibha Viera DO [address] [place] [address] Referral ID Status Reason Start Date Expiration Date V isits Requested Visits Authorized [id number] New Request 04/25/2021 05/20/2022 1 1 Specialty Diagnoses / Procedures Referred By Contac t Referred To Contact Sher Casas DO [address] [place] [phone] Referral ID Status Reason Start Date Expiration Date Visits Re quested Visits Authorized Question Answer Reason for Referral Chemical Dependency Referral Specialty Diagnoses / Procedures Referred By Contac t Referred To Contact Yu Thornton PA-C [address] [place] [address] Specialty Diagnoses / Procedures Referred By Contac t Referred To Contact Balbir Pichardo DO [address] [place] [address] Specialty Diagnoses / Procedures Referred By Contac t Referred To Contact Family Practice Gema Gotti DO [address] [address] Referral ID Status Reason Start Date Expiration Date V isits Requested Visits Authorized [id number] Closed Specialty Services Required 01/06/2023 1 1 Comments [facility] will contact patient to arrange follow up Specialty Diagnoses / Procedures Referred By Contac t Referred To Contact Santos Mcguire DO [address] [place] [address] Question Answer [email or web address] [facility] Other (Enter Comment) Please provide patient-specific details for the reason for referral wanting outpaient resource Additional Source Comments Scheduled Active and Recently Administ ered Medications (unrecognized section and content) Medication Order 03/31/2021 04/01/2021 04/02/2021 acetaminophen (TYLENOL) tablet 975 mg (COMPLETED) 975 mg, Oral, Every 6 hours, First dose on Wed03/31/21 at 0140, For 48 hours 0257 (Given - Provider: Nany Bose RN)0849 (Given - Provider: Yu Summers, JASVIR)1425 (Given - Provider: Yu Summers, JASVIR)1955 (Given - Provider: Nadia Montez, JASVIR) 0209 (Given - Provider: Nadia Montez, JASVIR)0740 (Canceled Entry - Provider: Nadia Montez, JASVIR)0826 (Given - Provider: Sonia Muniz, JASVIR)1435 (Given - Provider: Sonia Muniz, JASVIR)204 (Given - Provider: Nadia Montez, JASVIR) cefTRIAXone IM (ROCEPHIN) injection 500 mg (COMPLETED) 500 mg, Intramuscular, Once, On Wed04/01/21 at 1400, For 1 dose, 500 mg = 1.43 mL Nursing to reconstitute each vial with 1 mL sterile water injection. Final concentration = 350 mg/mL. FOR IM USE ONLY., Indication: STD Prophylaxis 1435 (Given - Provider: Sonia Muniz, JASVIR) doxycycline (VIBRAMYCIN) oral solid 100 mg (CANCELED) 100 mg, Oral, 2 times daily, First dose on Wed04/01/21 at 1600, For 7 days, Do not crush or open. Patient to sit up after administration for 30 minutes after taking and take with at least 8 ounces of water Take 1 hour before or 4 hours after metallic cations (e.g.antacids, aluminum,magnesium, calcium, ferrous sulfate), Indication: Gonococcal Infection 1540 (Given - Provider: Sonia Muniz RN) 0618 (Given - Provider: Nadia Montez, JASVIR) enoxaparin (LOVENOX) syringe 30 mg () 30 mg, Subcutaneous, 2 times daily, First dose on Wed03/31/21 at 0900, For 2 doses, Administer in abdomen unless otherwise directed by prescriber. Notify physician if patient refuses., Indication: VTE Prophylaxis 1130 (Given - Provider: Yu Summers RN)2100 (Canceled Entry - Provider: Yu Summers RN) enoxaparin (LOVENOX) syringe 30 mg 30 mg, Subcutaneous, 2 times daily, First dose on Wed04/01/21 at 2100, Administer in abdomen unless otherwise directed by prescriber. Notify physician if patient refuses., Indication: VTE Prophylaxis 2040 (Given - Provider: Nadia Montez RN) 0909 (Given - Provider: Demarcus Trivedi, RN) folic acid (FOLVITE) tablet 1 mg 1 mg, Oral, Daily, First dose on Wed03/31/21 at 0900 0900 (Due) 0827 (Given - Provider: Sonia Muniz RN) 0910 (Given - Provider: Demarcus Trivedi, JASVIR) gabapentin (NEURONTIN) capsule 300 mg (CANCELED) 300 mg, Oral, Every 8 hours scheduled, First dose on Wed03/31/21 at 0140 0257 (Given - Provider: Nany Bose RN)0600 (Canceled Entry - Provider: Nany Bose RN) gabapentin (NEURONTIN) capsule 300 mg 300 mg, Oral, Every 8 hours scheduled, First dose (after last modification) on Wed03/31/21 at 1200 1130 (Given - Provider: Yu Summers RN)2200 (Return to [facility] - Provider: Nadia Montez RN) 0212 (Given - Provider: Nadia Montez RN)0600 (Canceled Entry - Provider: Nadia Montez, JASVIR)1434 (Given - Provider: Sonia Muniz RN)2041 (Given - Provider: Nadia Montez, JASVIR)2200 (Canceled Entry - Provider: Nadia Linger, RN) 0618 (Given - Provider: Nadia Montez RN)1509 (Given - Provider: Demarcus Trivedi, JASVIR) ketorolac (TORADOL) injection 15 mg (COMPLETED) 15 mg, Intravenous, Every 6 hours, First dose on Wed03/31/21 at 0140, For 48 hours 0257 (Given - Provider: Nany Bose RN)0849 (Given - Provider: Yu Summers RN)1425 (Given - Provider: Yu Summers RN)1955 (Given - Provider: Nadia Montez RN) 0210 (Given - Provider: Nadia Montez RN)0827 (Given - Provider: Sonia Muniz RN)1435 (Given - Provider: Sonia Muniz RN)204 (Given - Provider: Nadia Montez RN) ketorolac (TORADOL) injection 15 mg 15 mg, Intravenous, Every 6 hours, First dose (after last reorder) on Wed04/02/21 at 1045, For 48 hours 1037 (Given - Provider: Demarcus Trivedi RN) lidocaine patch 1 patch 1 patch, Transdermal, Administer over 12 Hours, Daily, First dose on Wed03/31/21 at 0900, For 5 doses, Apply to ribs for 12 hours, then remove patch for 12 hours. 0849 (Patch Applied - Provider: Yu Summers RN)204 (Patch Removed - Provider: Nadia Montez RN) 0827 (Patch Applied - Provider: Sonia Muniz RN)2026 (Patch Removed - Provider: Nadia Montez RN) 0910 (Patch Applied - Provider: Demarcus Trivedi RN - Comment: right rib)1531 (Due: Patch Removed - Provider: Discharge Provider, Automatic - Comment: Time automatically adjusted from order being discontinued) loratadine (CLARITIN) tablet 10 mg 10 mg, Oral, Daily, First dose on Wed04/01/21 at 0900 0826 (Given - Provider: Sonia Muniz RN) 0910 (Given - Provider: Demarcus Trivedi RN) melatonin Tab 5 mg 5 mg, Oral, Nightly, First dose on Wed03/31/21 at 2100 2100 ([facility]: Nadia Montez RN) 0212 (Given - Provider: Nadia Montez, JASVIR)2100 (Not Given - Provider: Nadia Montez RN - Reason: Patient/family refused)2144 (Given - Provider: Nadia Montez RN) multivitamin (THERAGRAN) per tablet 1 tablet 1 tablet, Oral, Daily, First dose on Wed03/31/21 at 0900 0900 (Due) 0827 (Given - Provider: Sonia Muniz RN) 0910 (Given - Provider: Demarcus Trivedi, JASVIR) nicotine (NICODERM CQ) 14 mg/24 hr 1 patch 1 patch, Transdermal, Administer over 24 Hours, Daily, First dose on Wed03/31/21 at 1000, U/P Listed Hazardous Drug. Waste Must Be Disposed in [employer] Waste Container 1130 (Patch Applied - Provider: Yu Summers RN) 0826 (Patch Applied - Provider: Sonia Muniz RN) 0909 (Patch Removed - Provider: Demarcus Trivedi RN)0911 (Patch Applied - Provider: Demarcus Trivedi RN)1531 (Due: Patch Removed - Provider: Discharge Provider, Automatic - Comment: Time automatically adjusted from order being discontinued) ondansetron (ZOFRAN) injection 4 mg (COMPLETED) 4 mg, Intravenous, Once, On Wed03/31/21 at 0315, For 1 dose 0332 (Given - Provider: Nany Bose RN) thiamine tablet 200 mg 200 mg, Oral, Daily, First dose on Wed03/31/21 at 0900, For 5 doses 0900 (Due) 0827 (Given - Provider: Sonia Muniz RN) 0910 (Given - Provider: Demarcus Trivedi, JASVIR) tiZANidine (ZANAFLEX) tablet 4 mg 4 mg, Oral, Every 8 hours scheduled, First dose on Wed04/02/21 at 1400 1400 (Due) venlafaxine (EFFEXOR-XR) 24 hr capsule 37.5 mg 37.5 mg, Oral, Daily with breakfast, First dose on Wed04/01/21 at 0800, DO NOT CRUSH OR CHEW. 08 (Given - Provider: Sonia Muniz RN) 09 (Given - Provider: Demarcus Trivedi RN) Continuous Medication Order 03/31/2021 04/01/2021 04/02/2021 sodium chloride 0.9% (NS) (CANCELED) 100 mL/hr, Intravenous, Continuous, Starting on Wed03/31/21 at 0520 0527 (New Bag - Provider: Nany Bose, RN)0552 (Stopped - Provider: Nany Bose, RN) PRN Medication Order 03/31/2021 04/01/2021 04/02/2021 acetaminophen (TYLENOL) tablet 650 mg 650 mg, Oral, Every 4 hours PRN, mild pain, fever 100.4 F or greater, headaches, Starting on Wed04/02/21 at 0140, [] If ketorolac (TORADOL) is ordered and active, use it first for mild pain. fentaNYL (SUBLIMAZE) injection (COMPLETED) Intravenous, Code/trauma/sedation medication, Starting on Wed03/31/21 at 0129 0129 (Given - Provider: Tiki Javed RN) gadoterate meglumine (DOTAREM) injection 20 mL (COMPLETED) 20 mL, Intravenous, Once in imaging, contrast, Starting on Wed03/31/21 at 0446, For 1 dose 0447 (Contrast Administered - Provider: Payal Salas, TECHNOLOGIST) HYDROmorphone (DILAUDID) injection 0.5 mg (CANCELED) 0.5 mg, Intravenous, Every 2 hour PRN, moderate to severe pain, Starting on Wed03/31/21 at 0135 0849 (Given - Provider: Yu Summers, JASVIR) ibuprofen (ADVIL,MOTRIN) tablet 400 mg 400 mg, Oral, Every 6 hours PRN, headaches, Starting on Wed04/02/21 at 0923, Give with Food Do Not Crush or Chew if administering orally due to bitter taste. May be crushed if given via tube. iopamidoL (ISOVUE-370) 76 % injection 75 mL (COMPLETED) 75 mL, Intravenous, Once in imaging, contrast, Starting on Wed03/31/21 at 0127, For 1 dose 0150 (Contrast Administered - Provider: Zenobia Prabhakar, TECHNOLOGIST) ipratropium-albuteroL (DUO-NEB) 0.5-2.5 mg/3 ml nebulizer solution 3 mL 3 mL, Inhalation, Every 4 hours PRN (RT), shortness of breath, wheezing, Starting on Wed03/31/21 at 0135 LORazepam (ATIVAN) injection 1-4 mg(Linked Group 1) 1-4 mg, Intramuscular, Every 1 hour prn, CIWA score 8 or greater. See admin instructions for dosing details., Starting on Wed03/31/21 at 0548, [] CIWA less than 8: No medical intervention. [] CIWA 8-10: Give LORazepam (ATIVAN) 1 mg: Assess Vital Signs/Pulse Oximeter/CIWA in 4 hours. [] CIWA 11-14: Give LORazepam (ATIVAN) 2 mg: Assess Vital Signs/Pulse Oximeter/CIWA in 2 hours. [] CIWA 15-25: Give LORazepam (ATIVAN) 3 mg: Assess Vital Signs/Pulse Oximeter/CIWA in 1 hours. [] CIWA greater than 25: Give LORazepam (ATIVAN) 4 mg and Notify Physician: Assess Vital Signs/Pulse Oximeter/CIWA in 15 minutes. [] Give oral route if tolerated. If oral not tolerated give IV. If IV route not available give IM. [] Discontinue CIWA protocol if patient is started on IV infusion of Benzodiazepines, Dexmedetomidine or Propofol. VESICANT 1130 (See Alternative - Provider: Yu Summers RN)1955 (See Alternative - Provider: Nadia Montez RN) 1215 (See Alternative - Provider: Sonia Muniz, JASVIR)1625 (See Alternative - Provider: Sonia Muniz RN) LORazepam (ATIVAN) injection 1-4 mg(Linked Group 1) 1-4 mg, Intravenous, Every 1 hour prn, CIWA score 8 or greater. See admin instructions for dosing details., Starting on Wed03/31/21 at 0548, [] CIWA less than 8: No medical intervention. [] CIWA 8-10: Give LORazepam (ATIVAN) 1 mg: Assess Vital Signs/Pulse Oximeter/CIWA in 4 hours. [] CIWA 11-14: Give LORazepam (ATIVAN) 2 mg: Assess Vital Signs/Pulse Oximeter/CIWA in 2 hours. [] CIWA 15-25: Give LORazepam (ATIVAN) 3 mg: Assess Vital Signs/Pulse Oximeter/CIWA in 1 hours. [] CIWA greater than 25: Give LORazepam (ATIVAN) 4 mg and Notify Physician: Assess Vital Signs/Pulse Oximeter/CIWA in 15 minutes. [] Give oral route if tolerated. If oral not tolerated give IV. If IV route not available give IM. [] Discontinue CIWA protocol if patient is started on IV infusion of Benzodiazepines, Dexmedetomidine or Propofol. VESICANT 113 (See Alternative - Provider: Yu Summers RN)1954 (See Alternative - Provider: Nadia Montez RN) 1214 (See Alternative - Provider: Sonia Muniz RN)1624 (See Alternative - Provider: Sonia Muniz RN) LORazepam (ATIVAN) tablet 1-4 mg(Linked Group 1) 1-4 mg, Oral, Every 1 hour prn, CIWA score 8 or greater. See admin instructions for dosing details., Starting on Wed03/31/21 at 0548, [] CIWA less than 8: No medical intervention. [] CIWA 8-10: Give LORazepam (ATIVAN) 1 mg: Assess Vital Signs/Pulse Oximeter/CIWA in 4 hours. [] CIWA 11-14: Give LORazepam (ATIVAN) 2 mg: Assess Vital Signs/Pulse Oximeter/CIWA in 2 hours. [] CIWA 15-25: Give LORazepam (ATIVAN) 3 mg: Assess Vital Signs/Pulse Oximeter/CIWA in 1 hours. [] CIWA greater than 25: Give LORazepam (ATIVAN) 4 mg and Notify Physician: Assess Vital Signs/Pulse Oximeter/CIWA in 15 minutes. [] Give oral route if tolerated. If oral not tolerated give IV. If IV route not available give IM. [] Discontinue CIWA protocol if patient is started on IV infusion of Benzodiazepines, Dexmedetomidine or Propofol. 1130 (Given - Provider: Yu Summers RN)1954 (Given - Provider: Nadia Montez RN) 1214 (Given - Provider: Sonia Muniz RN)1624 (Given - Provider: Sonia Muniz RN) methocarbamoL (ROBAXIN) tablet 500 mg 500 mg, Oral, Every 6 hours PRN, muscle spasms, Starting on Wed03/31/21 at 0135 0526 (Given - Provider: Nany Bose RN)1425 (Given - Provider: Yu Summers RN)2147 (Return to Cabinet - Provider: Nadia Montez RN) 0212 (Given - Provider: Nadia Montez, JASVIR)1215 (Given - Provider: Sonia Muniz RN)2144 (Given - Provider: Nadia Montez RN) 0623 (Given - Provider: Nadia Montez RN) naloxone (NARCAN) injection 0.1 mg(Linked Group 2) 0.1 mg, Intravenous, As needed, opioid reversal, For respiratory rate less than or equal to 8 per minute., Starting on Wed03/31/21 at 0135, Mix nalOXone (NARCAN) 0.4 mg (1mL) with 9 mL of Normal Saline to total 10 mL. Administer 0.1 mg (2.5mL) IV Push every 2 minutes until respiratory rate is 10 or greater. naloxone (NARCAN) injection 0.4 mg(Linked Group 2) 0.4 mg, Intravenous, As needed, opioid reversal, patient is pulseless, breathless, and unresponsive, Starting on Wed03/31/21 at 0135, Call a code first, then administer naloxone dose undiluted IV Push over 30 seconds. oxyCODONE (ROXICODONE) immediate release tablet 5 mg 5 mg, Oral, Every 6 hours PRN, moderate to severe pain, Starting on Wed03/31/21 at 0135 0525 (Given - Provider: Nany Bose RN)1130 (Given - Provider: Yu Summers RN)1748 (Return to Cabinet - Provider: Nadia Montez RN)2147 (Return to Cabinet - Provider: Nadia Montez RN) 0826 (Given - Provider: Sonia Muniz RN)1434 (Given - Provider: Sonia Muniz RN)2144 (Given - Provider: Nadia Montez RN) 0623 (Given - Provider: Nadia Montez, JASVIR)1509 (Given - Provider: Demarcus Trivedi RN) traZODone (DESYREL) tablet 25 mg 25 mg, Oral, Nightly PRN, sleep, Starting on Wed03/31/21 at 1507 3957 (Return to [facility] - Provider: Nadia Montez RN) Linked Groups Order Group 1: LORazepam (ATIVAN) tablet 1-4 mgJump to med 1-4 mg, Oral, Every 1 hour prn, CIWA score 8 or greater. See admin instructions for dosing details., Starting on Wed03/31/21 at 0548
[] CIWA less than 8: No medical intervention. [] CIWA 8-10: Give LORazepam (ATIVAN) 1 mg: Assess Vital Signs/Pulse Oximeter/CIWA in 4 hours. [] CIWA 11-14: Give LORazepam (ATIVAN) 2 mg: Assess Vital Signs/Pulse Oximeter/CIWA in 2 hours. [] CIWA 15-25: Give LORazepam (ATIVAN) 3 mg: Assess Vital Signs/Pulse Oximeter/CIWA in 1 hours. [] CIWA greater than 25: Give LORazepam (ATIVAN) 4 mg and Notify Physician: Assess Vital Signs/Pulse Oximeter/CIWA in 15 minutes. [] Give oral route if tolerated. If oral not tolerated give IV. If IV route not available give IM. [] Discontinue CIWA protocol if patient is started on IV infusion of Benzodiazepines, Dexmedetomidine or Propofol.
Or LORazepam (ATIVAN) injection 1-4 mgJump to med 1-4 mg, Intramuscular, Every 1 hour prn, CIWA score 8 or greater. See admin instructions for dosing details., Starting on Wed03/31/21 at 0548
[] CIWA less than 8: No medical intervention. [] CIWA 8-10: Give LORazepam (ATIVAN) 1 mg: Assess Vital Signs/Pulse Oximeter/CIWA in 4 hours. [] CIWA 11-14: Give LORazepam (ATIVAN) 2 mg: Assess Vital Signs/Pulse Oximeter/CIWA in 2 hours. [] CIWA 15-25: Give LORazepam (ATIVAN) 3 mg: Assess Vital Signs/Pulse Oximeter/CIWA in 1 hours. [] CIWA greater than 25: Give LORazepam (ATIVAN) 4 mg and Notify Physician: Assess Vital Signs/Pulse Oximeter/CIWA in 15 minutes. [] Give oral route if tolerated. If oral not tolerated give IV. If IV route not available give IM. [] Discontinue CIWA protocol if patient is started on IV infusion of Benzodiazepines, Dexmedetomidine or Propofol. VESICANT
Or LORazepam (ATIVAN) injection 1-4 mgJump to med 1-4 mg, Intravenous, Every 1 hour prn, CIWA score 8 or greater. See admin instructions for dosing details., Starting on Wed03/31/21 at 0548
[] CIWA less than 8: No medical intervention. [] CIWA 8-10: Give LORazepam (ATIVAN) 1 mg: Assess Vital Signs/Pulse Oximeter/CIWA in 4 hours. [] CIWA 11-14: Give LORazepam (ATIVAN) 2 mg: Assess Vital Signs/Pulse Oximeter/CIWA in 2 hours. [] CIWA 15-25: Give LORazepam (ATIVAN) 3 mg: Assess Vital Signs/Pulse Oximeter/CIWA in 1 hours. [] CIWA greater than 25: Give LORazepam (ATIVAN) 4 mg and Notify Physician: Assess Vital Signs/Pulse Oximeter/CIWA in 15 minutes. [] Give oral route if tolerated. If oral not tolerated give IV. If IV route not available give IM. [] Discontinue CIWA protocol if patient is started on IV infusion of Benzodiazepines, Dexmedetomidine or Propofol. VESICANT
Group 2: naloxone (NARCAN) injection 0.1 mgJump to med 0.1 mg, Intravenous, As needed, opioid reversal, For respiratory rate less than or equal to 8 per minute., Starting on Wed03/31/21 at 0135
Mix nalOXone (NARCAN) 0.4 mg (1mL) with 9 mL of Normal Saline to total 10 mL. Administer 0.1 mg (2.5mL) IV Push every 2 minutes until respiratory rate is 10 or greater.
And Notify physician (CANCELED) STAT, Until discontinued, Starting on Wed03/31/21 at 0140, Until Specified
Respiratory rate less than: 8
For respiratory rate less than or equal to 8, notify physician and/or appropriate staff for additional orders. And naloxone (NARCAN) injection 0.4 mgJump to med 0.4 mg, Intravenous, As needed, opioid reversal, patient is pulseless, breathless, and unresponsive, Starting on Wed03/31/21 at 0135
Call a code first, then administer naloxone dose undiluted IV Push over 30 seconds.
Scheduled Medication Order 04/29/2021 04/30/2021 05/01/2021 folic acid (FOLVITE) tablet 1 mg 1 mg, Oral, DAILY, First dose on 04/26/21 at 0900, Until Discontinued 0815 (Given - Provider: Sera Leal RN) 0810 (Given - Provider: Ramona Srivastava RN) 0835 (Given - Provider: Prisca Bryan, JASVIR) loratadine (CLARITIN) tablet 10 mg 10 mg, Oral, DAILY, First dose on Wed04/29/21 at 1200, Until Discontinued 1146 (Given - Provider: Ngoc Martin RN) 0810 (Given - Provider: Ramona Srivastava RN) 0835 (Given - Provider: Prisca Bryan, JASVIR) multivitamin w/ minerals (THERAPEUTIC-M) tablet 1 tablet 1 tablet, Oral, DAILY, First dose on 04/26/21 at 0900, Until Discontinued 0815 (Given - Provider: Sera Leal RN) 0810 (Given - Provider: Ramona Srivastava RN) 0835 (Given - Provider: Prisca Bryan RN) naltrexone (DEPADE) tablet 50 mg (COMPLETED) 50 mg, Oral, DAILY, 3 doses, First dose on Wed04/28/21 at 0900, Last dose on Wed04/30/21 at 0900 0815 (Given - Provider: Sera Leal RN) 0810 (Given - Provider: Ramona Srivastava RN) naltrexone (VIVITROL) IM injection 380 mg (COMPLETED) 380 mg, Intramuscular, ONCE, 1 dose, On Zahraa 05/01/21 at 0800, Refrigerate; prior to administration allow drug to reach room temperature (approx 45 minutes). Mix the powder and diluent by vigorously shaking the vial for approximately 1 minute. Administer IM in gluteus. 0908 (Given - Provider: Prisca Bryan RN) nicotine (NICODERM CQ) 7 MG/24HR patch 1 patch 1 patch, Transdermal, EVERY 24 HOURS, First dose (after last modification) on Wed04/29/21 at 0900, Until Discontinued, Apply patch to hairless skin site on upper body or arm. Rotate sites for each application. Do not cut or alter patch. Remove patch after duration of 16-24 hours. To dispose, fold adhesive ends together. 0815 (Patch Applied - Provider: Sera Leal RN) 0810 (Patch Applied - Provider: Ramona Srivastava RN) 0836 (Patch Removed - Provider: Prisca Bryan RN)0839 (Patch Applied - Provider: Prisca Bryan RN)1051 (Due: Patch Removed - Provider: System Discharge - Comment: Time automatically adjusted from order being discontinued) thiamine tablet 100 mg 100 mg, Oral, DAILY, First dose on Wed04/26/21 at 0900, Until Discontinued 0815 (Given - Provider: Sera Leal RN) 08 (Given - Provider: Rmaona Srivastava RN) 0835 (Given - Provider: Prisca Bryan, JASVIR) traZODone (DESYREL) tablet 100 mg (CANCELED) 100 mg, Oral, DAILY AT BEDTIME, First dose (after last modification) on Wed04/28/21 at 2100, Until Discontinued 225 (Given - Provider: Tiki Tierney RN) traZODone (DESYREL) tablet 150 mg 150 mg, Oral, DAILY AT BEDTIME, First dose (after last modification) on Wed04/30/21 at 2100, Until Discontinued 224 (Given - Provider: Porfirio Noriega, JASVIR) venlafaxine (EFFEXOR-XR) capsule XR 75 mg 75 mg, Oral, DAILY WITH BREAKFAST, First dose on Wed04/26/21 at 0745, Until Discontinued, Slow release product. Do not chew or crush 0815 (Given - Provider: Sera Leal RN) 08 (Given - Provider: Ramona Srivastava RN) 0835 (Given - Provider: Prisca Bryan RN) PRN Medication Order 04/29/2021 04/30/2021 05/01/2021 alum/mag hydrox.-simethicone oral suspension 30 mL 30 mL, Oral, EVERY 6 HOURS NEEDED, Starting on Wed04/25/21 at 2314, Until Zahraa 05/01/21 at 1251, Indigestion, Per 5 mL is equivalent to: (Alum-Mag Hydroxide 200-225 mg and Simethicone 20 mg) and (Alum-Mag Hydroxide 200-200 mg and Simethicone 20 mg) benztropine (COGENTIN) tablet 1 mg(Linked Group 1) 1 mg, Oral, EVERY 6 HOURS NEEDED, Starting on Wed04/25/21 at 2314, Until Zahraa 05/01/21 at 1251, Extra-pyramidal Symptoms, Parkinsonism and/or dystonia benztropine mesylate (COGENTIN) injection 1 mg(Linked Group 1) 1 mg, Intramuscular, EVERY 6 HOURS NEEDED, Starting on Wed04/25/21 at 2314, Until Zahraa 05/01/21 at 1251, acute dystonic reaction, Notify physician if given IM. diphenhydrAMINE (BENADRYL) injection 50 mg(Linked Group 2) 50 mg, Intramuscular, EVERY 4 HOURS NEEDED, Starting on Wed04/25/21 at 2314, Until Zahraa 05/01/21 at 1251, Aggression and patient is unwilling or unable to take PO medication., To be given with linked medications. Notify physician if given IM. diphenhydrAMINE (BENADRYL) tablet 50 mg(Linked Group 3) 50 mg, Oral, EVERY 4 HOURS NEEDED, Starting on Wed04/25/21 at 2314, Until Zahraa 05/01/21 at 1251, Aggression, To be given with linked medications. haloperidol (HALDOL) tablet 5 mg(Linked Group 3) 5 mg, Oral, EVERY 4 HOURS NEEDED, Starting on Wed04/25/21 at 2314, Until Zahraa 05/01/21 at 1251, Aggression, To be given with linked medications. Maximum cumulative dose of Haloperidol is 30mg per 24 hours. haloperidol lactate (HALDOL) injection 5 mg(Linked Group 2) 5 mg, Intramuscular, EVERY 4 HOURS NEEDED, Starting on Wed04/25/21 at 2314, Until Zahraa 05/01/21 at 1251, Aggression and patient is unwilling or unable to take PO medication, To be given with linked medications. Notify physician if given IM. Maximum cumulative dose of Haloperidol is 30mg per 24 hours. hydrOXYzine HCl (ATARAX) tablet 25 mg 25 mg, Oral, EVERY 6 HOURS NEEDED, Starting on Wed04/25/21 at 2314, Until Zahraa 05/01/21 at 1251, Anxiety, Itching, FIRST line 1842 (Given - Provider: Porfirio Noriega, JASVIR) ibuprofen (MOTRIN) tablet 400 mg 400 mg, Oral, EVERY 6 HOURS NEEDED, Starting on Wed04/25/21 at 2314, Until Zahraa 05/01/21 at 1251, Other, Second-line for moderate or severe pain, Give with food LORazepam (ATIVAN) injection 2 mg(Linked Group 2) 2 mg, Intramuscular, EVERY 4 HOURS NEEDED, Starting on Wed04/25/21 at 2314, Until Zahraa 05/01/21 at 1251, Aggression and patient is unwilling or unable to take PO medication., To be given with linked medications. Notify physician if given IM. Maximum cumulative dose of Lorazepam is 10mg per 24 hours. Extravasation Risk LORazepam (ATIVAN) tablet 2 mg(Linked Group 3) 2 mg, Oral, EVERY 4 HOURS NEEDED, Starting on Wed04/25/21 at 2314, Until Zahraa 05/01/21 at 1251, Aggression, To be given with linked medications. Maximum cumulative dose of Lorazepam is 10mg per 24 hours. melatonin tablet 3 mg 3 mg, Oral, DAILY AT BEDTIME NEEDED, Starting on Wed04/25/21 at 2314, Until Zahraa 05/01/21 at 1251, Insomnia, First line for insomnia 225 (Given - Provider: Tiki Tierney RN) 224 (Given - Provider: Porfirio Noriega RN) nicotine (NICORETTE) gum 4 mg 4 mg, Oral, EVERY 2 HOURS NEEDED, Starting on Wed04/25/21 at 2314, Until Zahraa 05/01/21 at 1251, Smoking cessation, Patient may self-administer. polyethylene glycol (MIRALAX) packet 17 g 17 g, Oral, DAILY NEEDED, Starting on Wed04/25/21 at 2314, Until Zahraa 05/01/21 at 1251, Constipation 1st Line Polyvinyl Alcohol-Povidone PF (REFRESH) ophthalmic solution 2 drop 2 drop, Both Eyes, NEEDED, Starting on Wed04/27/21 at 2042, Until Zahraa 05/01/21 at 1251, Dry Eyes, Patient may self-administer. 1146 (Given - Provider: Ngoc Martin RN - Comment: dry eyes) 1012 (Given - Provider: Prisca Bryan RN) Linked Groups Order Group 1: benztropine (COGENTIN) tablet 1 mgJump to med 1 mg, Oral, EVERY 6 HOURS NEEDED, Starting on Wed04/25/21 at 2314, Until Zahraa 05/01/21 at 1251, Extra-pyramidal Symptoms, Parkinsonism and/or dystonia Or benztropine mesylate (COGENTIN) injection 1 mgJump to med 1 mg, Intramuscular, EVERY 6 HOURS NEEDED, Starting on Wed04/25/21 at 2314, Until Zahraa 05/01/21 at 1251, acute dystonic reaction
Notify physician if given IM.
Group 2: haloperidol lactate (HALDOL) injection 5 mgJump to med 5 mg, Intramuscular, EVERY 4 HOURS NEEDED, Starting on Wed04/25/21 at 2314, Until Zahraa 05/01/21 at 1251, Aggression and patient is unwilling or unable to take PO medication
To be given with linked medications. Notify physician if given IM. Maximum cumulative dose of Haloperidol is 30mg per 24 hours.
And LORazepam (ATIVAN) injection 2 mgJump to med 2 mg, Intramuscular, EVERY 4 HOURS NEEDED, Starting on Wed04/25/21 at 2314, Until Zahraa 05/01/21 at 1251, Aggression and patient is unwilling or unable to take PO medication.
To be given with linked medications. Notify physician if given IM. Maximum cumulative dose of Lorazepam is 10mg per 24 hours. Extravasation Risk
And diphenhydrAMINE (BENADRYL) injection 50 mgJump to med 50 mg, Intramuscular, EVERY 4 HOURS NEEDED, Starting on Wed04/25/21 at 2314, Until Zahraa 24/22 at 1251, Aggression and patient is unwilling or unable to take PO medication.
To be given with linked medications. Notify physician if given IM.
Group 3: haloperidol (HALDOL) tablet 5 mgJump to med 5 mg, Oral, EVERY 4 HOURS NEEDED, Starting on Wed04/25/21 at 2314, Until Zahraa 05/01/21 at 1251, Aggression
To be given with linked medications. Maximum cumulative dose of Haloperidol is 30mg per 24 hours.
And LORazepam (ATIVAN) tablet 2 mgJump to med 2 mg, Oral, EVERY 4 HOURS NEEDED, Starting on Wed04/25/21 at 2314, Until Zahraa 05/01/21 at 1251, Aggression
To be given with linked medications. Maximum cumulative dose of Lorazepam is 10mg per 24 hours.
And diphenhydrAMINE (BENADRYL) tablet 50 mgJump to med 50 mg, Oral, EVERY 4 HOURS NEEDED, Starting on Wed04/25/21 at 2314, Until Zahraa 05/01/21 at 1251, Aggression
To be given with linked medications.
Scheduled Medication Order 08/21/2021 08/22/2021 08/23/2021 cyanocobalamin (VITAMIN B12) tablet 100 mcg 100 mcg, Oral, DAILY, First dose on Wed08/22/21 at 1130, Until Discontinued 1150 (Given - Provider: Araceli Hemphill RN) 0746 (Given - Provider: Araceli Hemphill RN) Enoxaparin Sodium (LOVENOX) injection 40 mg (CANCELED) 40 mg, Subcutaneous, DAILY, First dose on Zahraa 08/21/21 at 0900, Until Discontinued, , Indications: DVT/PE prophylaxis 0931 (Given - Provider: Araceli Hemphill RN) Enoxaparin Sodium (LOVENOX) injection 40 mg 40 mg, Subcutaneous, EVERY 12 HOURS NON-STANDARD, First dose (after last modification) on Zahraa 08/21/21 at 2145, Until Discontinued, , Indications: DVT/PE prophylaxis 2252 (Given - Provider: Isrrael Hector RN) 0748 (Given - Provider: Araceli Hemphill RN)2214 (Given - Provider: Isrrael Hector RN) 0746 (Not Given - Provider: Araceli Hemphill RN - Reason: Patient/family refused) folic acid (FOLVITE) tablet 1 mg 1 mg, Oral, DAILY, First dose on Wed08/21/21 at 0900, Until Discontinued 0932 (Given - Provider: Araceli Hemphill RN) 0748 (Given - Provider: Araceli Hemphill RN) 0746 (Given - Provider: Araceli Hemphill, RN) loratadine (CLARITIN) tablet 10 mg 10 mg, Oral, DAILY, First dose on Wed08/21/21 at 1130, Until Discontinued 1211 (Given - Provider: Araceli Hemphill RN) 0748 (Given - Provider: Araceli Hemphill RN) 0746 (Given - Provider: Araceli Hemphill, RN) Multi-Vitamins tablet 1 tablet (CANCELED) 1 tablet, Oral, DAILY, First dose on Wed08/21/21 at 0900, Until Discontinued, Use PO route if patient tolerating PO. 0932 (Given - Provider: Araceli Hemphill RN) 0748 (Given - Provider: Araceli Hemphill, RN) nicotine (NICODERM CQ) 21 MG/24HR patch 1 patch 1 patch, Transdermal, EVERY 24 HOURS, First dose on Wed08/21/21 at 2115, Until Discontinued, Apply patch to hairless skin site on upper body or arm. Rotate sites for each application. Do not cut or alter patch. Remove patch after duration of 16-24 hours. To dispose, fold adhesive ends together. 2248 (Not Given - Provider: Isrrael Hector RN - Reason: Other - Comment: pt stated that it gives him night humphrey) 1131 (Patch Applied - Provider: Araceli Hemphill RN) 0827 (Patch Removed - Provider: Araceli Hemphill RN)1100 (Canceled Entry - Provider: System Discharge - Comment: Automatically canceled at discontinue of medication order) PHENobarbital (LUMINAL) tablet 32.4 mg (CANCELED) 32.4 mg, Oral, EVERY 12 HOURS NON-STANDARD, 2 doses, First dose on Wed08/22/21 at 1130, Last dose on Wed08/22/21 at 2330 1150 (Given - Provider: Araceli Hemphill, JASVIR) PHENobarbital (LUMINAL) tablet 32.4 mg (COMPLETED) 32.4 mg, Oral, EVERY 12 HOURS NON-STANDARD, 1 dose, First dose (after last modification) on Wed08/22/21 at 2100 2214 (Given - Provider: Isrrael Hector, JASVIR) PHENobarbital (LUMINAL) tablet 64.8 mg (COMPLETED) 64.8 mg, Oral, EVERY 12 HOURS NON-STANDARD, 2 doses, First dose on Wed08/21/21 at 1130, Last dose on Wed08/21/21 at 2330 1211 (Given - Provider: Araceli Hemphill, RN)2247 (Given - Provider: Isrrael Hector, RN) potassium chloride (K-DUR) tablet ER 40 mEq (COMPLETED) 40 mEq, Oral, ONCE, 1 dose, On Wed08/21/21 at 0645, Swallow tablets whole; do not crush, chew, or suck on tablet. Tablet may also be broken in half and each half swallowed separately. 06 (Given - Provider: Isrrael Hector RN) thiamine (Vitamin B-1) injection 100 mg (CANCELED) 100 mg, Intravenous, EVERY 8 HOURS, 15 doses, First dose on Wed08/20/21 at 1645, Last dose on Wed08/25/21 at 0600, During acute withdrawal period. 06 (Given - Provider: Isrrael Hector RN)121 (See Alternative - Provider: Araceli Hemphill, JASVIR)2247 (See Alternative - Provider: Isrrael Hector, JASVIR) 0642 (Given - Provider: Isrrael Hector, JASVIR) thiamine tablet 100 mg (CANCELED) 100 mg, Oral, EVERY 8 HOURS, 15 doses, First dose on Wed08/20/21 at 1645, Last dose on Wed08/25/21 at 0600, During acute withdrawal period. 06 (See Alternative - Provider: Isrrael Hector RN)121 (Given - Provider: Araceli Hemphill, RN)2247 (Given - Provider: Isrrael Hector, JASVIR) 0642 (See Alternative - Provider: Isrrael Hector, JASVIR) thiamine tablet 100 mg 100 mg, Oral, DAILY, First dose on Wed08/25/21 at 0900, Until Discontinued traZODone (DESYREL) tablet 150 mg 150 mg, Oral, DAILY AT BEDTIME, First dose on Wed08/20/21 at 2100, Until Discontinued 1940 (Given - Provider: Isrrael Hector, RN) 2213 (Given - Provider: Isrrael Hector, JASVIR) venlafaxine (EFFEXOR-XR) capsule XR 75 mg 75 mg, Oral, DAILY WITH BREAKFAST, First dose on Zahraa 08/21/21 at 0745, Until Discontinued, Slow release product. Do not chew or crush. 1003 (Given - Provider: Araceli Hemphill RN) 0748 (Given - Provider: Araceli Hemphill, RN) 0746 (Given - Provider: Araceli Hemphill, RN) PRN Medication Order 08/21/2021 08/22/2021 08/23/2021 acetaminophen (TYLENOL) tablet 650 mg 650 mg, Oral, EVERY 6 HOURS NEEDED, Starting on Wed08/20/21 at 1337, Until 08/23/21 at 1153, Mild Pain, Maximum dose of acetaminophen is 4000 mg from all sources in 24 hours. 0932 (Given - Provider: Araceli Hemphill RN) hydrOXYzine HCl (ATARAX) tablet 25 mg 25 mg, Oral, EVERY 6 HOURS NEEDED, Starting on Wed08/22/21 at 1228, Until 08/23/21 at 1153, Anxiety 1533 (Given - Provider: Araceli Hemphill RN)2213 (Given - Provider: Isrrael Hector, JASVIR) ibuprofen (MOTRIN) tablet 600 mg 600 mg, Oral, EVERY 6 HOURS NEEDED, Starting on Wed08/20/21 at 1337, Until 08/23/21 at 1153, Moderate Pain, Give with food 1940 (Given - Provider: Isrrael Hector, JASVIR) melatonin tablet 6 mg 6 mg, Oral, DAILY AT BEDTIME NEEDED, Starting on Wed08/20/21 at 1746, Until 08/23/21 at 1153, Insomnia PHENobarbital injection 65 mg 65 mg, Intramuscular, EVERY 6 HOURS NEEDED, Starting on Wed08/20/21 at 1636, Until 08/23/21 at 1153, Other, Breakthrough, Give as needed if patient presents two or more of the following symptoms: SBP >160 or DBP >100, HR >110, Diaphoresis, Tremors, Hallucinations, RASS > 2. polyethylene glycol (MIRALAX) packet 17 g 17 g, Oral, DAILY NEEDED, Starting on Wed08/20/21 at 1746, Until 08/23/21 at 1153, Constipation 1st Line prochlorperazine (COMPAZINE) suppository 25 mg(Linked Group 1) 25 mg, Rectal, 2 TIMES DAILY NEEDED, Starting on Wed08/20/21 at 1746, Until 08/23/21 at 1153, Nausea / Vomiting, 1st line for Nausea/Vomiting prochlorperazine (COMPAZINE) tablet 10 mg(Linked Group 1) 10 mg, Oral, EVERY 6 HOURS NEEDED, Starting on Wed08/20/21 at 1746, Until 08/23/21 at 1153, Nausea / Vomiting, 1st line for Nausea/Vomiting sodium chloride 0.9% IV solution 250 mL Intravenous, at 20 mL/hr, NEEDED, Starting on Wed08/20/21 at 1745, Until 08/23/21 at 1153, Carrier Fluid - See Admin. Inst, 250mL 0.9NS to be used as carrier fluid for intermittent small volume or piggyback medication administration as needed. Infusion rate of the carrier fluid should be set at 20 mL/hr unless the rate as the intermittent medication is less than 20 mL/hr. For intermittent medications with a rate less than 20 mL/hr set the carrier fluid at that rate of the intermittent or piggy back medication. Linked Groups Order Group 1: prochlorperazine (COMPAZINE) tablet 10 mgJump to med 10 mg, Oral, EVERY 6 HOURS NEEDED, Starting on Wed08/20/21 at 1746, Until 08/23/21 at 1153, Nausea / Vomiting, 1st line for Nausea/Vomiting Or prochlorperazine (COMPAZINE) suppository 25 mgJump to med 25 mg, Rectal, 2 TIMES DAILY NEEDED, Starting on Wed08/20/21 at 1746, Until 08/23/21 at 1153, Nausea / Vomiting, 1st line for Nausea/Vomiting Scheduled Medication Order 12/01/2021 12/02/2021 12/03/2021 LORazepam (ATIVAN) injection 2 mg (COMPLETED) 2 mg, intravenous, Once, On Wed12/03/21 at 1925, For 1 dose, Prior to IV use, lorazepam injection should be DILUTED with an equal volume of compatible solution; Rate of administration should NOT exceed 2 mg/min. 194 (Given - Provid er: Kaycee Plata RN) sodium chloride 0.9 % bolus 1,000 mL (COMPLETED) 1,000 mL, intravenous, at 1,000 mL/hr, Administer over 1 Hours, Once, On Wed12/03/21 at 1915, For 1 dose 1950 (New Bag - Prov ider: Kaycee Plata RN)2030 (Stopped - Provider: Kaycee Plata RN) PRN Medication Order 12/01/2021 12/02/2021 12/03/2021 sodium chloride 0.9 % flush 10 mL(Linked Group 1) 10 mL, intravenous, As needed, line care, Starting on Wed12/03/21 at 1913 Linked Groups Order Group 1: Insert peripheral IV (COMPLETED) STAT, Once, On Wed12/03/21 at 1914, For 1 occurrence And Saline lock IV (COMPLETED) Routine, Once, On Wed12/03/21 at 1914, For 1 occurrence And sodium chloride 0.9 % flush 10 mLJump to med 10 mL, intravenous, As needed, line care, Starting on Wed12/03/21 at 1913 Scheduled Medication Order 05/11/2022 05/12/2022 05/13/2022 Acetaminophen (TYLENOL) tablet 975 mg (COMPLETED) 975 mg, Oral, ONCE, 1 dose, On Wed05/13/22 at 2230, Maximum dose of acetaminophen is 4000 mg from all sources in 24 hours. 2206 (Given - Provid er: Zurdo Sanches RN) Scheduled Medication Order 05/12/2022 05/13/2022 05/14/2022 GI Cocktail (ED/CDU) (COMPLETED) Oral, ONCE, 1 dose, On Zahraa 05/14/22 at 0100, 40 mL 0039 (Given - Provid er: Uriah Villa RN) Scheduled Medication Order 05/17/2022 05/18/2022 05/19/2022 aluminum-magnesium hydroxide-simethicone (MAALOX) 200-200-20 mg/5 mL suspension 30 mL (COMPLETED) 30 mL, oral, Once, On Wed05/19/22 at 0740, For 1 dose 0821 (Given - Provid er: Payal Sanders RN) venlafaxine XR (EFFEXOR-XR) 24 hr capsule 225 mg 225 mg, oral, Daily with breakfast, First dose on Wed05/19/22 at 0935, Capsule may be swallowed whole, or may be opened and its contents sprinkled on applesauce if consumed immediately without chewing. Do not crush or chew. 1209 (Given - Provid er: Payal Sanders RN) PRN Medication Order 05/17/2022 05/18/2022 05/19/2022 LORazepam (ATIVAN) tablet 2 mg(Linked Group 1) 2 mg, oral, Every 1 hour PRN, CIWA-Ar 10-18, Starting on Wed05/19/22 at 1303, Re-assess CIWA-Ar in 1 hour Hold dose and notify provider for BP LESS than 90/60, RR LESS than 10 per minute, marked somnolence, pooling of secretions, intoxicated symptoms (ataxia, slurred speech.) Notify provider if 12 mg is given within 4 hours. LORazepam (ATIVAN) tablet 3 mg(Linked Group 1) 3 mg, oral, Every 1 hour PRN, CIWA-Ar GREATER than or EQUAL to 19 WITHOUT evidence of seizure OR hallucinations, Starting on Wed05/19/22 at 1303, Re-assess CIWA-Ar in 1 hour Hold dose and notify provider for BP LESS than 90/60, RR LESS than 10 per minute, marked somnolence, pooling of secretions, intoxicated symptoms (ataxia, slurred speech.) Notify provider if 12 mg is given within 4 hours. LORazepam (ATIVAN) tablet 4 mg(Linked Group 1) 4 mg, oral, Every 1 hour PRN, CIWA-Ar GREATER than or EQUAL to 19 AND seizure OR hallucination, Starting on Wed05/19/22 at 1303, Notify provider Re-assess CIWA-Ar in 1 hour Hold dose and notify provider for BP LESS than 90/60, RR LESS than 10 per minute, marked somnolence, pooling of secretions, intoxicated symptoms (ataxia, slurred speech.) Notify provider if 12 mg is given within 4 hours. Linked Groups Order Group 1: LORazepam (ATIVAN) tablet 2 mgJump to med 2 mg, oral, Every 1 hour PRN, CIWA-Ar 10-18, Starting on Wed05/19/22 at 1303
Re-assess CIWA-Ar in 1 hour Hold dose and notify provider for BP LESS than 90/60, RR LESS than 10 per minute, marked somnolence, pooling of secretions, intoxicated symptoms (ataxia, slurred speech.) Notify provider if 12 mg is given within 4 hours.
Or LORazepam (ATIVAN) tablet 3 mgJump to med 3 mg, oral, Every 1 hour PRN, CIWA-Ar GREATER than or EQUAL to 19 WITHOUT evidence of seizure OR hallucinations, Starting on Wed05/19/22 at 1303
Re-assess CIWA-Ar in 1 hour Hold dose and notify provider for BP LESS than 90/60, RR LESS than 10 per minute, marked somnolence, pooling of secretions, intoxicated symptoms (ataxia, slurred speech.) Notify provider if 12 mg is given within 4 hours.
Or LORazepam (ATIVAN) tablet 4 mgJump to med 4 mg, oral, Every 1 hour PRN, CIWA-Ar GREATER than or EQUAL to 19 AND seizure OR hallucination, Starting on Wed05/19/22 at 1303
Notify provider Re-assess CIWA-Ar in 1 hour Hold dose and notify provider for BP LESS than 90/60, RR LESS than 10 per minute, marked somnolence, pooling of secretions, intoxicated symptoms (ataxia, slurred speech.) Notify provider if 12 mg is given within 4 hours.
Scheduled Medication Order 06/06/2022 06/07/2022 06/08/2022 Cetirizine (ZyrTEC) tablet 5 mg (COMPLETED) 5 mg, Oral, ONCE, 1 dose, On Wed06/08/22 at 1100 1047 (Given - Provid er: Uriah Bowman RN) LORazepam (ATIVAN) tablet 1 mg (COMPLETED) 1 mg, Oral, ONCE, 1 dose, On Wed06/07/22 at 2345 2320 (Given - Provider: Darleen Sierra RN) LORazepam (ATIVAN) tablet 1 mg (COMPLETED) 1 mg, Oral, ONCE, 1 dose, On 06/08/22 at 0930 0900 (Given - Provid er: Uriah Bowman RN) naltrexone (VIVITROL) IM injection 380 mg (COMPLETED) 380 mg, Intramuscular, EVERY 30 DAYS, 1 dose, First dose on 06/08/22 at 1000, Give immediately after preparation to minimize needle clogging. Refrigerate; prior to administration allow drug to reach room temperature (approximately 45 minutes). Mix the powder and diluent by vigorously shaking the vial for approximately 1 minute. Administer IM in gluteus only. Give immediately after preparation to minimize needle clogging. 1526 (Given - Provid er: Sera Dotson RN) venlafaxine (EFFEXOR-XR) capsule XR 150 mg 150 mg, Oral, DAILY WITH BREAKFAST, First dose on 06/08/22 at 0800, Until Discontinued, Slow release product. Do not chew or crush. 0900 (Given - Provid er: Uriah Bowman RN) PRN Medication Order 06/06/2022 06/07/2022 06/08/2022 hydrOXYzine HCl (ATARAX) tablet 25 mg 25 mg, Oral, 3 TIMES DAILY NEEDED, Starting on 06/07/22 at 2240, Until 06/08/22 at 1858, Anxiety 2246 (Not Given - Provider: Darleen Sierra RN - Reason: Patient/family refused) Nicotine (NICORETTE) gum 4 mg 4 mg, Oral, ADMINISTER DIRECTED, Starting on 06/07/22 at 2140, Until 06/08/22 at 1858, Smoking cessation, May have 1 piece of gum every 1-2 hours with maximum of 24 pieces in 24 hours. Patient may self-administer. Scheduled Medication Order 07/09/2022 07/10/2022 07/11/2022 venlafaxine (EFFEXOR XR) extended release capsule 225 mg 225 mg, Oral, DAILY WITH BREAKFAST, First dose on 07/11/22 at 0830, Until Discontinued, Do not crush or break. 0851 (Given - Provid er: Zeyad Romo RN) PRN Medication Order 07/09/2022 07/10/2022 07/11/2022 acetaminophen (TYLENOL) tablet 1,000 mg 1,000 mg, Oral, EVERY 8 HOURS PRN, Starting on 07/11/22 at 0849, Until Discontinued, Pain Mild (1-3), Maximum dose of acetaminophen is 4000 mg from all sources in 24 hours. 0852 (Given - Provid er: Zeyad Romo RN) ibuprofen (ADVIL;MOTRIN) tablet 400 mg 400 mg, Oral, EVERY 4 HOURS PRN, Starting on 07/11/22 at 0849, Until Discontinued, Pain Mild (1-3), Do not crush or chew. 0853 (Given - Provid er: Zeyad Romo RN) Scheduled Medication Order 09/10/2022 09/11/2022 09/12/2022 thiamine (vitamin B1) 100 mg, folic acid (FOLVITE) 1 mg, multivitamin 10 mL in NaCl 0.9% 1,000 mL infusion (COMPLETED) Intravenous, ONCE, 1 dose, On 09/12/22 at 0730, at 125 mL/hr 0739 (New Bag - Prov ider: Rylee Velazquez RN)1149 (Stopped - Provider: Rylee Velazquez RN) PRN Medication Order 09/10/2022 09/11/2022 09/12/2022 LORazepam (ATIVAN) injection solution 2 mg(Linked Group 1) 2 mg, IV Push, EVERY HOUR PRN, Starting on 09/12/22 at 0626, Until Discontinued, other, CIWA >/= 12 LORazepam (ATIVAN) injection solution 2 mg(Linked Group 1) 2 mg, Intramuscular, EVERY HOUR PRN, Starting on 09/12/22 at 0626, Until Discontinued, other, CIWA >/= 12 LORazepam (ATIVAN) tablet 2 mg(Linked Group 1) 2 mg, Oral, EVERY HOUR PRN, Starting on 09/12/22 at 0626, Until Discontinued, other, CIWA >/= 12 Linked Groups Order Group 1: LORazepam (ATIVAN) injection solution 2 mgJump to med 2 mg, IV Push, EVERY HOUR PRN, Starting on 09/12/22 at 0626, Until Discontinued, other, CIWA >/= 12 Or LORazepam (ATIVAN) tablet 2 mgJump to med 2 mg, Oral, EVERY HOUR PRN, Starting on 09/12/22 at 0626, Until Discontinued, other, CIWA >/= 12 Or LORazepam (ATIVAN) injection solution 2 mgJump to med 2 mg, Intramuscular, EVERY HOUR PRN, Starting on 09/12/22 at 0626, Until Discontinued, other, CIWA >/= 12 Scheduled Medication Order 10/28/2022 10/29/2022 10/30/2022 dicyclomine (BENTYL) capsule 10 mg (COMPLETED) 10 mg, Oral, NOW, 1 dose, On Wed10/30/22 at 2150 2145 (Given - Provid er: Ashley Jenkins RN) LORazepam (ATIVAN) injection solution 2 mg (COMPLETED) 2 mg, IV Push, NOW, 1 dose, On Wed10/30/22 at 2009 2005 (Given - Provid er: Jarrett Neal, JASVIR) ondansetron (ZOFRAN) injection 4 mg (COMPLETED) 4 mg, IV Push, NOW, 1 dose, On Wed10/30/22 at 2009 2004 (Given - Provid er: Jarrett Neal RN) venlafaxine (EFFEXOR) tablet 200 mg (COMPLETED) 200 mg, Oral, NOW, 1 dose, On Wed10/30/22 at 1925 1939 (Given - Provid er: Jarrett Neal, JASVIR) PRN Medication Order 01/02/2023 01/03/2023 01/04/2023 saline flush IV Push, PRN- NEEDED, Starting on 01/03/23 at 2303, Until Discontinued Scheduled Medication Order 01/05/2023 01/06/2023 01/07/2023 buPROPion (WELLBUTRIN XL) XL-tablet 150 mg 150 mg, Oral, DAILY, First dose on Wed01/07/23 at 1300, Until Discontinued 1326 (Given - Provider: Leisa Drummond, JASVIR) busPIRone (BUSPAR) tablet 10 mg 10 mg, Oral, *TWO TIMES A DAY, First dose on Wed01/06/23 at 1500, Until Discontinued 1521 (Given - Provider: Isra Timmons RN) 0830 (Given - Provider: Leisa Drummond, JASVIR)1322 (Canceled Entry - Provider: Leisa Drummond RN - Comment: Not given. Wrong med scanned in error. Medication put back in patient drawer.)2100 (Due) cetirizine (zyrTEC) tablet 10 mg 10 mg, Oral, DAILY, First dose on Wed01/05/23 at 1400, Until Discontinued 1707 (Given - Provider: Silvia Tilley RN) 0950 (Given - Provider: Isra Timmons RN) 0830 (Given - Provider: Leisa Drummond, JASVIR) chlordiazePOXIDE (LIBRIUM) capsule 25 mg 25 mg, Oral, DAILY, First dose on Wed01/07/23 at 0900, Until Discontinued 0830 (Given - Provider: Leisa Drummond, JASVIR) chlordiazePOXIDE (LIBRIUM) capsule 25 mg (COMPLETED)(Linked Group 1) 25 mg, Oral, 2 times daily, 2 doses, First dose (after last modification) on Wed01/06/23 at 1400, Last dose on Wed01/06/23 at 2300 1606 (Given - Provider: Isra Timmons RN)2258 (Given - Provider: Gloria Woods RN) chlordiazePOXIDE (LIBRIUM) capsule 50 mg (COMPLETED) 50 mg, Oral, (STAT), 1 dose, On Wed01/05/23 at 0820 1059 (Given - Provider: Marlee Medel RN) chlordiazePOXIDE (LIBRIUM) capsule 50 mg ()(Linked Group 1) 50 mg, Oral, EVERY 6 HOURS, 4 doses, First dose (after last modification) on Wed01/05/23 at 1400, Last dose on Wed01/06/23 at 0800 1400 (Not Given - Provider: Silvia Tilley RN - Reason: Patient sleeping)2129 (Given - Provider: Ramona Espinoza, JASVIR) 0207 (Given - Provider: Ramona Espinoza, JASVIR)1254 (Not Given - Provider: Isra Timmons RN - Reason: Not in Stock - Comment: pharmacy notified) cloNIDine HCL (CATAPRES) tablet 0.1 mg (COMPLETED) 0.1 mg, Oral, ONCE, 1 dose, On Wed01/05/23 at 0915 1059 (Given - Provider: Marlee Medel RN) doxycycline MONOhydrate (MONODOX) capsule 100 mg 100 mg, Oral, EVERY 12 HOURS, 10 doses, First dose on Wed01/06/23 at 1700, Last dose on Wed01/11/23 at 0900, Indications: Suspect bronchitis 1830 (Given - Provider: Isra iTmmons RN) 0830 (Given - Provider: Leisa Drummond RN)2099 (Due) enoxaparin (LOVENOX) syringe 40 mg 40 mg, Subcutaneous, DAILY, First dose on Wed01/05/23 at 2100, Until Discontinued 2126 (Given - Provider: Ramona Espinoza RN) 2039 (Given - Provider: Gloria Woods, JASVIR) 2099 (Due) fluticasone propionate (FLONASE) nasal spray 1 [place] 1 [place], Each Nostril, DAILY, First dose on Wed01/05/23 at 1400, Until Discontinued 170 (Given - Provider: Silvia Tilley RN) 0952 (Given - Provider: Isra Timmons RN) 0830 (Given - Provider: Leisa Drummond RN) folic acid (FOLATE) tablet 1 mg 1 mg, Oral, DAILY, First dose on Wed01/05/23 at 1400, Until Discontinued 170 (Given - Provider: Silvia Tilley RN) 0950 (Given - Provider: Isra Timmons RN) 0830 (Given - Provider: Leisa Drummond RN) LORazepam (ATIVAN) tablet 1 mg (COMPLETED) 1 mg, Oral, NOW, 1 dose, On Wed01/05/23 at 0750 0757 (Given - Provider: Marlee Medel RN) Melatonin tablet 5 mg 5 mg, Oral, AT BEDTIME, First dose on Wed01/05/23 at 2200, Until Discontinued 2353 (Given - Provider: Ramona Espinoza RN) 2258 (Given - Provider: Gloria Woods RN) 2200 (Due) nicotine (HABITROL) 14 mg/24 hr transdermal patch 1 Patch 1 Patch, Transdermal, DAILY, First dose on Wed01/06/23 at 1500, Until Discontinued 1520 (Patch Applied - Provider: Isra Timmons RN) 0830 (Patch Applied - Provider: Leisa Drummond RN) nicotine (HABITROL) 21 mg/24 hr transdermal patch 1 Patch (CANCELED) 1 Patch, Transdermal, DAILY, First dose on Wed01/05/23 at 1400, Until Discontinued 1707 (Patch Applied - Provider: Silvia Tilley RN) 1017 (Not Given - Provider: Isra Timmons RN - Reason: Refused)1018 (Patch Removed - Provider: Isra Timmons RN) pantoprazole (PROTONIX) enteric-coated tablet 40 mg 40 mg, Oral, DAILY, First dose on Wed01/05/23 at 1000, Until Discontinued, Indications: gastroesophageal reflux disease 1059 (Given - Provider: Marlee Medel, JASVIR) 0950 (Given - Provider: Isra Timmons, JASVIR) 0830 (Given - Provider: Leisa Drummond RN) saline flush IV Push, EVERY 12 HOURS, First dose on Wed01/05/23 at 2100, Until Discontinued 2130 (Given - Provider: Ramona Espinoza RN) 0953 (Given - Provider: Isra Timmons RN)204 (Given - Provider: Gloria Woods RN) 0830 (Given - Provider: Leisa Drummond RN)2100 (Due) thiamine (vitamin B1) 100 mg, folic acid (FOLVITE) 1 mg in NaCl 0.9% 1,000 mL infusion (COMPLETED)(Linked Group 2) Intravenous, ONCE, 1 dose, On Wed01/05/23 at 0750, at 250 mL/hr 0824 (New Bag - Provider: Marlee Medel RN) thiamine (VITAMIN B1) tablet 100 mg 100 mg, Oral, EVERY 12 HOURS, 14 doses, First dose on Wed01/12/23 at 0900, Last dose on Wed01/18/23 at 2100 traZODone (DESYREL) tablet 50 mg 50 mg, Oral, AT BEDTIME, First dose on Wed01/05/23 at 2200, Until Discontinued 2353 (Given - Provider: Ramona Espinoza RN) 2258 (Given - Provider: Gloria Woods RN) 2200 (Due) vitamins multiple therapeutic w/ minerals (THERAGRAN-M) tablet 1 Tab (COMPLETED)(Linked Group 2) 1 Tab, Oral, ONCE, 1 dose, On Wed01/05/23 at 0750 0757 (Given - Provider: Marlee Medel, JASVIR) vitamins multiple therapeutic w/ minerals (THERAGRAN-M) tablet 1 Tab 1 Tab, Oral, DAILY, First dose on Wed01/05/23 at 1400, Until Discontinued 1707 (Given - Provider: Silvia Tilley, RN) 0955 (Given - Provider: Isra Timmons, RN) 0830 (Given - Provider: Leisa Drummond, RN) Continuous Medication Order 01/05/2023 01/06/2023 01/07/2023 lactated ringers parenteral solution (CANCELED) Intravenous, CONTINUOUS, Starting on Wed01/05/23 at 1020, Until Wed01/06/23 at 1519, at 100 mL/hr 1214 (New Bag - Provider: Silvia Tilley RN)214 (New Bag - Provider: Ramona Espinoza, RN) 0944 (New Bag - Provider: Isra Timmons, JASVIR)1900 (Stopped - Provider: Gloria Woods RN - Comment: no longer running @ start of 0 shift) PRN Medication Order 01/05/2023 01/06/2023 01/07/2023 acetaminophen (TYLENOL) tablet 650 mg 650 mg, Oral, EVERY 6 HOURS PRN, Starting on Wed01/05/23 at 1920, Until Discontinued, Pain, Fever alum & mag hydroxide with simethicone (MAALOX,MYLANTA) oral SUSPension 30 mL 30 mL, Oral, EVERY 4 HOURS PRN, Starting on Wed01/05/23 at 1011, Until Discontinued, other, gastric distress diazePAM (VALIUM) inj syringe 10 mg(Linked Group 3) 10 mg, IV Push, EVERY HOUR PRN, Starting on Wed01/05/23 at 1011, Until Discontinued, other, CIWA >/= 12 1100 (See Alternative - Provider: Marlee Meedl, JASVIR)1203 (Given - Provider: Silvia Tilley, JASVIR)1842 (Given - Provider: Silvia Tilley, JASVIR)2147 (Given - Provider: Ramona Espinoza, JASVIR) 2041 (Given - Provider: Gloria Woods, JASVIR) 1140 (See Alternative - Provider: Leisa Drummond, JASVIR) diazePAM (VALIUM) inj syringe 10 mg(Linked Group 3) 10 mg, Intramuscular, EVERY HOUR PRN, Starting on Wed01/05/23 at 1011, Until Discontinued, other, CIWA >/= 12 1100 (See Alternative - Provider: Marlee Medel RN)1203 (See Alternative - Provider: Silvia Tilley RN)1842 (See Alternative - Provider: Silvia Tilley, JASVIR)2146 (See Alternative - Provider: Ramona Espinoza RN) 2040 (See Alternative - Provider: Gloria Woods, JASVIR) 1140 (See Alternative - Provider: Leisa Drummond, JASVIR) hydrOXYzine HCL (ATARAX) tablet 50 mg 50 mg, Oral, EVERY 6 HOURS PRN, Starting on Wed01/06/23 at 1343, Until Discontinued, Sleep, Anxiety 1503 (Given - Provider: Isra Timmons RN) LORazepam (ATIVAN) tablet 2 mg(Linked Group 3) 2 mg, Oral, EVERY HOUR PRN, Starting on Wed01/05/23 at 1011, Until Discontinued, other, CIWA >/= 12 1100 (Given - Provider: Marlee Medel, JASVIR)1203 (See Alternative - Provider: Silvia Tilley, JASVIR)184 (See Alternative - Provider: Silvia Tilley RN)2146 (See Alternative - Provider: Ramona Espinoza, JASVIR) 2040 (See Alternative - Provider: Gloria Woods, JASVIR) 1140 (Given - Provider: Leisa Drummond, JASVIR) ondansetron (ZOFRAN ODT) RAPID DISSOLVING tablet 4 mg(Linked Group 4) 4 mg, Oral, EVERY 6 HOURS PRN, Starting on Wed01/05/23 at 1011, Until Discontinued, Nausea/Vomiting ondansetron (ZOFRAN) injection 4 mg(Linked Group 4) 4 mg, IV Push, EVERY 6 HOURS PRN, Starting on Wed01/05/23 at 1011, Until Discontinued, Nausea/Vomiting saline flush IV Push, PRN- NEEDED, Starting on Wed01/05/23 at 1800, Until Discontinued Linked Groups Order Group 1: chlordiazePOXIDE (LIBRIUM) capsule 50 mg ()Jump to med 50 mg, Oral, EVERY 6 HOURS, 4 doses, First dose (after last modification) on Wed01/05/23 at 1400, Last dose on Wed01/06/23 at 0800 Followed by chlordiazePOXIDE (LIBRIUM) capsule 25 mg (COMPLETED)Jump to med 25 mg, Oral, 2 times daily, 2 doses, First dose (after last modification) on Wed01/06/23 at 1400, Last dose on Wed01/06/23 at 2300 Group 2: vitamins multiple therapeutic w/ minerals (THERAGRAN-M) tablet 1 Tab (COMPLETED)Jump to med 1 Tab, Oral, ONCE, 1 dose, On Wed01/05/23 at 0750 And thiamine (vitamin B1) 100 mg, folic acid (FOLVITE) 1 mg in NaCl 0.9% 1,000 mL infusion (COMPLETED)Jump to med Intravenous, ONCE, 1 dose, On Wed01/05/23 at 0750, at 250 mL/hr Group 3: diazePAM (VALIUM) inj syringe 10 mgJump to med 10 mg, IV Push, EVERY HOUR PRN, Starting on Wed01/05/23 at 1011, Until Discontinued, other, CIWA >/= 12 Or LORazepam (ATIVAN) tablet 2 mgJump to med 2 mg, Oral, EVERY HOUR PRN, Starting on Wed01/05/23 at 1011, Until Discontinued, other, CIWA >/= 12 Or diazePAM (VALIUM) inj syringe 10 mgJump to med 10 mg, Intramuscular, EVERY HOUR PRN, Starting on Wed01/05/23 at 1011, Until Discontinued, other, CIWA >/= 12 Group 4: ondansetron (ZOFRAN ODT) RAPID DISSOLVING tablet 4 mgJump to med 4 mg, Oral, EVERY 6 HOURS PRN, Starting on Wed01/05/23 at 1011, Until Discontinued, Nausea/Vomiting Or ondansetron (ZOFRAN) injection 4 mgJump to med 4 mg, IV Push, EVERY 6 HOURS PRN, Starting on Wed01/05/23 at 1011, Until Discontinued, Nausea/Vomiting Scheduled Medication Order 01/06/2023 01/07/2023 01/08/2023 ziprasidone (GEODON) intramuscular recon solution 20 mg (COMPLETED) 20 mg, Intramuscular, NOW, 1 dose, On [facility] 01/07/23 at 2000 2004 (Given - Provider: Billy Delgado RN) Scheduled Medication Order 01/06/2023 01/07/2023 01/08/2023 acetaminophen (TYLENOL EXTRA STR) tablet 1,000 mg (COMPLETED) 1,000 mg, Oral, NOW, 1 dose, On Wed01/08/23 at 1835 1907 (Given - Provid er: Jennie Rebolledo RN) diphenhydrAMINE (BENADRYL) injection 50 mg (COMPLETED) 50 mg, Intramuscular, NOW, 1 dose, On Wed01/08/23 at 1235 1240 (Given - Provid er: Lamin Bach RN) haloperidol lactate (HALDOL) injection solution 5 mg (COMPLETED) 5 mg, Intramuscular, ONCE, 1 dose, On Wed01/08/23 at 1235 1240 (Given - Provid er: Lamin Bach RN) hydrOXYzine HCL (ATARAX) tablet 25 mg (COMPLETED) 25 mg, Oral, NOW, 1 dose, On Wed01/08/23 at 1645 1649 (Given - Provid er: Jennie Rebolledo RN) LORazepam (ATIVAN) injection solution 2 mg (COMPLETED) 2 mg, Intramuscular, Once, 1 dose, On Wed01/08/23 at 1240 1241 (Given - Provid er: Lamin Bach RN) Scheduled Medication Order 02/14/2023 02/15/2023 02/16/2023 buPROPion (WELLBUTRIN XL) XL-tablet 300 mg 300 mg, Oral, DAILY, First dose on 02/14/23 at 1400, Until Discontinued 1435 (Given - Provider: Mary Jane Ceron RN) 0901 (Given - Provider: Payal Rose) 1114 (Given - Provider: Geremias Jackson II, LPN) busPIRone (BUSPAR) tablet Tablet 15 mg 15 mg, Oral, *TWO TIMES A DAY, First dose on 02/14/23 at 1400, Until Discontinued 1435 (Given - Provider: Mary Jane Ceron RN)2220 (Given - Provider: Michael Christian RN) 09 (Given - Provider: Payal Rose)212 (Given - Provider: Jessi Alcantara RN) 1113 (Given - Provider: Geremias Jackson II, LPN)2100 (Due) cetirizine (zyrTEC) tablet 10 mg 10 mg, Oral, DAILY, First dose on Wed02/15/23 at 1410, Until Discontinued 1402 (Given - Provider: Payal Rose) 111 (Given - Provider: Geremias Jackson II, LPN) diazePAM (VALIUM) tablet 10 mg (CANCELED)(Linked Group 1) 10 mg, Oral, THREE TIMES A DAY, First dose on Wed02/12/23 at 1600, Until Discontinued 1127 (Given - Provider: Mary Jane Ceron RN)1609 (Given - Provider: Mary Jane Ceron RN)2220 (Given - Provider: Michael Christian RN) 114 (Given - Provider: Payal Rose) enoxaparin (LOVENOX) syringe 40 mg 40 mg, Subcutaneous, DAILY, First dose on Wed02/12/23 at 2100, Until Discontinued 221 (Given - Provider: Michael Christian RN) 2119 (Given - Provider: Jessi Alcantara RN) 2100 (Due) famotidine (PEPCID) tablet 10 mg 10 mg, Oral, DAILY, First dose on Wed02/12/23 at 1700, Until Discontinued 112 (Given - Provider: Mary Jane Ceron RN) 0903 (Given - Provider: Payal Rose) 1114 (Given - Provider: Geremias Jackson II, LPN) fluticasone propionate (FLONASE) nasal spray 2 [place], Each Nostril, DAILY, First dose on Wed02/12/23 at 1900, Until Discontinued 1127 (Given - Provider: Mary Jane Ceron RN) 1115 (Given - Provider: Payal Rose) 1118 (Given - Provider: Geremias Jackson II, LPN) folic acid (FOLATE) tablet 1 mg 1 mg, Oral, DAILY, First dose on Wed02/13/23 at 0900, Until Discontinued 1127 (Given - Provider: Mary Jane Ceron RN) 0903 (Given - Provider: Payal Rose) 1114 (Given - Provider: Geremias Jackson II, LPN) hydrOXYzine HCL (ATARAX) tablet 25 mg 25 mg, Oral, 2 times daily, First dose on Wed02/15/23 at 1335, Until Discontinued 1403 (Given - Provider: Pyaal Rose)2120 (Given - Provider: Jessi Alcantara RN) 111 (Given - Provider: Geremias Jackson II, LPN)2100 (Due) mirtazapine (REMERON) tablet 30 mg (COMPLETED) 30 mg, Oral, AT BEDTIME, 2 doses, First dose on 02/13/23 at 0100, Last dose on Wed02/13/23 at 2200 0001 (Given - Provider: Abdulkadir Peterson RN) mirtazapine (REMERON) tablet 30 mg 30 mg, Oral, AT BEDTIME, First dose on Wed02/15/23 at 2200, Until Discontinued 234 (Given - Provider: Jessi Alcantara RN) 2200 (Due) nicotine (HABITROL) 14 mg/24 hr transdermal patch 1 Patch 1 Patch, Transdermal, DAILY, First dose on Wed02/14/23 at 1700, Until Discontinued 1609 (Patch Applied - Provider: Mary Jane Ceron RN) 0900 (Patch Applied - Provider: Payal Rose)1114 (Patch Removed - Provider: Payal Rose) 0919 (Patch Removed - Provider: Geremias Jackson II, LPN)111 (Patch Applied - Provider: Geremias Jackson II, LPN) ramelteon (ROZEREM) tablet 8 mg 8 mg, Oral, AT BEDTIME, First dose on Wed02/15/23 at 0135, Until Discontinued 0306 (Not Given - Provider: Michael Christian RN - Reason: Patient sleeping)234 (Given - Provider: Jessi Alcantara RN) 2200 (Due) saline flush IV Push, EVERY 12 HOURS, First dose on Wed02/12/23 at 1435, Until Discontinued 1127 (Given - Provider: Mary Jane Ceron RN)2218 (Given - Provider: Michael Christian RN) 0903 (Given - Provider: Payal Rose)2347 (Given - Provider: Jessi Alcantara RN) 111 (Given - Provider: Geremias Jackson II, LPN)2100 (Due) thiamine (vitamin B1) 500 mg in NaCl 0.9% 100 mL IVPB (CANCELED) Intravenous, at 200 mL/hr, Administer over 30 Minutes, EVERY 8 HOURS, First dose on Wed02/12/23 at 1700, Until Discontinued 0602 (New Bag - Provider: Michael Christian, RN)1443 (New Bag - Provider: Mary Jane Ceron, RN)1610 (Stopped - Provider: Mary Jane Ceron, JASVIR)2228 (New Bag - Provider: Michael Christian, RN)2329 (Stopped - Provider: Maria G Lazo, JASVIR) 0713 (New Bag - Provider: Michael Christian, JASVIR) thiamine (VITAMIN B1) tablet 200 mg 200 mg, Oral, *TWO TIMES A DAY, First dose on Wed02/15/23 at 1300, Until Discontinued 1403 (Given - Provider: Payal Rose)2120 (Given - Provider: Jessi Alcantara RN) 1114 (Given - Provider: Geremias Jackson II, LPN)2100 (Due) PRN Medication Order 02/14/2023 02/15/2023 02/16/2023 acetaminophen (TYLENOL) suppository 650 mg(Linked Group 2) 650 mg, Rectal, EVERY 4 HOURS PRN, Starting on Wed02/12/23 at 1335, Until Discontinued, other, for mild pain/temp of 101.5 F or 100.5 F for immunocompromised patients acetaminophen (TYLENOL) tablet 650 mg(Linked Group 2) 650 mg, Oral, EVERY 4 HOURS PRN, Starting on Wed02/12/23 at 1335, Until Discontinued, other, for mild pain/temp of 101.5 F or 100.5 F for immunocompromised patients alum & mag hydroxide with simethicone (MAALOX,MYLANTA) oral SUSPension 30 mL 30 mL, Oral, FOUR TIMES A DAY PRN, Starting on Wed02/12/23 at 1335, Until Discontinued, Heartburn, Indigestion diazePAM (VALIUM) inj syringe 10 mg(Linked Group 3) 10 mg, IV Push, EVERY 1 HOUR PRN, Starting on Wed02/15/23 at 0851, Until Discontinued, other, CIWA >/= 12 diazePAM (VALIUM) inj syringe 10 mg(Linked Group 3) 10 mg, Intramuscular, EVERY 1 HOUR PRN, Starting on Wed02/15/23 at 0851, Until Discontinued, other, CIWA >/= 12 diazePAM (VALIUM) tablet 10 mg (CANCELED) 10 mg, Oral, EVERY 1 HOUR PRN, Starting on Wed02/12/23 at 1628, Until Wed02/15/23 at 0852, other, CIWA >/= 8 0104 (Given - Provider: Michael Christian RN) diazePAM (VALIUM) tablet 10 mg(Linked Group 3) 10 mg, Oral, EVERY 1 HOUR PRN, Starting on Wed02/15/23 at 0851, Until Discontinued, other, CIWA >/= 12 hydrALAZINE (APRESOLINE) injection solution 5 mg 5 mg, IV Push, EVERY 6 HOURS PRN, Starting on Wed02/15/23 at 1335, Until Discontinued, Blood Pressure greater than:, 175 NaCl 0.9% 1,000 mL 1,000 mL, Intravenous, CONTINUOUS PRN, Starting on Wed02/12/23 at 1333, Until Discontinued, at 10 mL/hr, other ondansetron (ZOFRAN ODT) RAPID DISSOLVING tablet 4 mg(Linked Group 4) 4 mg, Oral, EVERY 6 HOURS PRN, Starting on Wed02/12/23 at 1335, Until Discontinued, Nausea/Vomiting ondansetron (ZOFRAN) injection 4 mg(Linked Group 4) 4 mg, IV Push, EVERY 6 HOURS PRN, Starting on Wed02/12/23 at 1335, Until Discontinued, Nausea/Vomiting saline flush IV Push, PRN- NEEDED, Starting on Wed02/12/23 at 1333, Until Discontinued Linked Groups Order Group 1: diazePAM (VALIUM) tablet 10 mg (CANCELED)Jump to med 10 mg, Oral, THREE TIMES A DAY, First dose on Wed02/12/23 at 1600, Until Discontinued Or diazePAM (VALIUM) inj syringe 10 mg (CANCELED) 10 mg, Intramuscular, THREE TIMES A DAY, First dose on Wed02/12/23 at 1600, Until Discontinued Or diazePAM (VALIUM) inj syringe 10 mg (CANCELED) 10 mg, IV Push, THREE TIMES A DAY, First dose on Wed02/12/23 at 1600, Until Discontinued Group 2: acetaminophen (TYLENOL) tablet 650 mgJump to med 650 mg, Oral, EVERY 4 HOURS PRN, Starting on Wed02/12/23 at 1335, Until Discontinued, other, for mild pain/temp of 101.5 F or 100.5 F for immunocompromised patients Or acetaminophen (TYLENOL) suppository 650 mgJump to med 650 mg, Rectal, EVERY 4 HOURS PRN, Starting on Wed02/12/23 at 1335, Until Discontinued, other, for mild pain/temp of 101.5 F or 100.5 F for immunocompromised patients Group 3: diazePAM (VALIUM) tablet 10 mgJump to med 10 mg, Oral, EVERY 1 HOUR PRN, Starting on Wed02/15/23 at 0851, Until Discontinued, other, CIWA >/= 12 Or diazePAM (VALIUM) inj syringe 10 mgJump to med 10 mg, IV Push, EVERY 1 HOUR PRN, Starting on Wed02/15/23 at 0851, Until Discontinued, other, CIWA >/= 12 Or diazePAM (VALIUM) inj syringe 10 mgJump to med 10 mg, Intramuscular, EVERY 1 HOUR PRN, Starting on Wed02/15/23 at 0851, Until Discontinued, other, CIWA >/= 12 Group 4: ondansetron (ZOFRAN ODT) RAPID DISSOLVING tablet 4 mgJump to med 4 mg, Oral, EVERY 6 HOURS PRN, Starting on Wed02/12/23 at 1335, Until Discontinued, Nausea/Vomiting Or ondansetron (ZOFRAN) injection 4 mgJump to med 4 mg, IV Push, EVERY 6 HOURS PRN, Starting on Wed02/12/23 at 1335, Until Discontinued, Nausea/Vomiting Scheduled Medication Order 05/07/2023 05/08/2023 05/09/2023 folic acid (FOLVITE) tablet 1 mg (COMPLETED) 1 mg, Oral, ONCE, 1 dose, On 05/08/23 at 1515 1519 (Given - Provider: Jeanne Hedrick RN) LORazepam (ATIVAN) injection 0.5 mg (COMPLETED) 0.5 mg, IntraVENous, ONCE, 1 dose, On 05/09/23 at 0630, Immediately prior to intravenous use, lorazepam Injection must be diluted with at least an equal volume of compatible solution (NS or D5W). 0636 (Given - Provid er: Love Vaughn RN) sodium chloride flush 0.9 % injection 5-40 mL 5-40 mL, IntraVENous, EVERY 12 HOURS SCHEDULED (2 times per day), First dose on 05/08/23 at 2100, Until Discontinued, For Line Patency: Peripheral IV = 5 mL; Midline or Central Line = 10 mL/lumen. If following IV push medication, administer flush at same rate as the IV push. Flush volume is determined by type of infusion therapy being given. For non-viscous solutions use: Peripheral IV = 5 mL Midline or Central Line = 10 mL/lumen For viscous solutions (i.e. blood components, parenteral nutrition, contrast media, or after obtaining blood sample) use: Peripheral IV = 10 mL Midline or Central Line = 20 mL/lumen 2041 (Given - Provider: Jeanne Hedrick RN) 0900 (Due)2100 (Due) therapeutic multivitamin-minerals 1 tablet 1 tablet, Oral, DAILY, First dose on 05/08/23 at 1515, Until Discontinued 151 (Given - Provider: Jeanne Hedrick RN) 0900 (Due) thiamine mononitrate tablet 100 mg 100 mg, Oral, DAILY, First dose on 05/08/23 at 1515, Until Discontinued 151 (Given - Provider: Jeanne Hedrick RN) 0900 (Due) PRN Medication Order 05/07/2023 05/08/2023 05/09/2023 0.9 % sodium chloride infusion IntraVENous, at 5-250 mL/hr, PRN, if patient receiving piggyback infusions and maintenance fluids are not ordered OR KVO fluids to protect IV site / prevent frequent line interruptions/ long duration, Starting on 05/08/23 at 1513, For piggyback infusion, administer at same rate as piggyback for a total of 25 mL. Enter 25 mL into dose field and piggyback rate into rate field of order. If piggyback is infusing at a rate less than 100 mL/hr, enter 25 mL into dose field and 100 mL/hr into rate field of order. For KVO fluids, enter rate of 20 mL/hr or less into rate field of order. LORazepam (ATIVAN) injection 1 mg(Linked Group 1) 1 mg, IntraVENous, EVERY 1 HOUR PRN (WITHDRAWAL), Starting on 05/08/23 at 1513, Until Discontinued, Withdrawal, For alcohol withdrawal., For CIWA score 8 to 10. If both oral and intravenous CIWA medications ordered, use intravenous if unable to tolerate oral equivalent. Reassess CIWA one hour after each dose of medication and as needed. 1523 (See Alternative - Provider: Jeanne Hedrick RN)1744 (See Alternative - Provider: Jeanne Hedrick RN)2041 (See Alternative - Provider: Jeanne Hedrick RN)2204 (See Alternative - Provider: Love Vaughn RN)233 (See Alternative - Provider: Love Vaughn RN) LORazepam (ATIVAN) injection 2 mg(Linked Group 1) 2 mg, IntraVENous, EVERY 1 HOUR PRN (WITHDRAWAL), Starting on Sat 24 at 1513, Until Discontinued, Withdrawal, For alcohol withdrawal., For CIWA score 11 to 15. If both oral and intravenous CIWA medications ordered, use intravenous if unable to tolerate oral equivalent. Reassess CIWA one hour after each dose of medication and as needed. 1523 (See Alternative - Provider: Jeanne Hedrick RN)1744 (See Alternative - Provider: Jeanne Hedrick RN)2041 (See Alternative - Provider: Jeanne Hedrick RN)2204 (Given - Provider: Love Vaughn RN)2331 (Given - Provider: Love Vaughn RN) LORazepam (ATIVAN) injection 3 mg(Linked Group 1) 3 mg, IntraVENous, EVERY 1 HOUR PRN (WITHDRAWAL), Starting on Sat 24 at 1513, Until Discontinued, Withdrawal, For alcohol withdrawal., For CIWA score 16 to 20. If both oral and intravenous CIWA medications ordered, use intravenous if unable to tolerate oral equivalent. Reassess CIWA one hour after each dose of medication and as needed. 1523 (See Alternative - Provider: Jeanne Hedrick RN)1744 (Given - Provider: Jeanne Hedrick RN)2041 (Given - Provider: Jeanne Hedrick RN)2204 (See Alternative - Provider: Love Vaughn RN)233 (See Alternative - Provider: Love Vaughn RN) LORazepam (ATIVAN) injection 4 mg(Linked Group 1) 4 mg, IntraVENous, EVERY 1 HOUR PRN (WITHDRAWAL), Starting on Sat 24 at 1513, Until Discontinued, Withdrawal, For alcohol withdrawal., For CIWA score greater than 20. If both oral and intravenous CIWA medications ordered, use intravenous if unable to tolerate oral equivalent. Reassess CIWA one hour after each dose of medication and as needed. 1523 (Given - Provider: Kit Hedrick RN)1744 (See Alternative - Provider: Jeanne Hedrick RN)2041 (See Alternative - Provider: Jeanne Hedrick RN)2204 (See Alternative - Provider: Love Vaughn RN)2331 (See Alternative - Provider: Love Vaughn RN) LORazepam (ATIVAN) tablet 1 mg(Linked Group 1) 1 mg, Oral, EVERY 1 HOUR PRN (WITHDRAWAL), [place] Sat [address] at 1513, Until Discontinued, For alcohol withdrawal., For CIWA score 8 to 10. Reassess CIWA one hour after each dose of medication and as needed. 1523 (See Alternative - Provider: Jeanne Hedrick RN)1744 (See Alternative - Provider: Jeanne Hedrick RN)2041 (See Alternative - Provider: Jeanne Hedrick RN)2204 (See Alternative - Provider: Love Vaughn RN)2331 (See Alternative - Provider: Love Vaughn RN) LORazepam (ATIVAN) tablet 2 mg(Linked Group 1) 2 mg, Oral, EVERY 1 HOUR PRN (WITHDRAWAL), Starting on Sat 3/24 at 1513, Until Discontinued, For alcohol withdrawal., For CIWA score 11 to 15. Reassess CIWA one hour after each dose of medication and as needed. 1523 (See Alternative - Provider: Jeanne Hedrick RN)1744 (See Alternative - Provider: Jeanne Hedrick RN)2041 (See Alternative - Provider: Jeanne Hedrick RN)2204 (See Alternative - Provider: Love Vaughn RN)2331 (See Alternative - Provider: Love Vaughn RN) LORazepam (ATIVAN) tablet 3 mg(Linked Group 1) 3 mg, Oral, EVERY 1 HOUR PRN (WITHDRAWAL), Starting on Sat 24 at 1513, Until Discontinued, For alcohol withdrawal., For CIWA score 16 to 20. Reassess CIWA one hour after each dose of medication and as needed. 1523 (See Alternative - Provider: Jeanne Hedrick RN)1744 (See Alternative - Provider: Jeanne Hedrick RN)2041 (See Alternative - Provider: Jeanne Hedrick RN)2204 (See Alternative - Provider: Love Vaughn RN)2332 (See Alternative - Provider: Love Vaughn RN) LORazepam (ATIVAN) tablet 4 mg(Linked Group 1) 4 mg, Oral, EVERY 1 HOUR PRN (WITHDRAWAL), Starting on 05/08/23 at 1513, Until Discontinued, For alcohol withdrawal., For CIWA score greater than 20. Reassess CIWA one hour after each dose of medication and as needed. 1523 (See Alternative - Provider: Jeanne Hedrick RN)1744 (See Alternative - Provider: Jeanne Hedrick RN)2042 (See Alternative - Provider: Jeanne Hedrick RN)2205 (See Alternative - Provider: Love Vaughn RN)2332 (See Alternative - Provider: Love Vaughn RN) sodium chloride flush 0.9 % injection 5-40 mL 5-40 mL, IntraVENous, PRN, Starting on 05/08/23 at 1513, Until Discontinued, Line Care, After every IV line use, For Line Patency: Peripheral IV = 5 mL; Midline or Central Line = 10 mL/lumen. If following IV push medication, administer flush at same rate as the IV push. Flush volume is determined by type of infusion therapy being given. For non-viscous solutions use: Peripheral IV = 5 mL Midline or Central Line = 10 mL/lumen For viscous solutions (i.e. blood components, parenteral nutrition, contrast media, or after obtaining blood sample) use: Peripheral IV = 10 mL Midline or Central Line = 20 mL/lumen Linked Groups Order Group 1: LORazepam (ATIVAN) tablet 1 mgJump to med 1 mg, Oral, EVERY 1 HOUR PRN (WITHDRAWAL), Starting on 05/08/23 at 1513, Until Discontinued, For alcohol withdrawal.
For CIWA score 8 to 10. Reassess CIWA one hour after each dose of medication and as needed.
Or LORazepam (ATIVAN) injection 1 mgJump to med 1 mg, IntraVENous, EVERY 1 HOUR PRN (WITHDRAWAL), Starting on 05/08/23 at 1513, Until Discontinued, Withdrawal, For alcohol withdrawal.
For CIWA score 8 to 10. If both oral and intravenous CIWA medications ordered, use intravenous if unable to tolerate oral equivalent. Reassess CIWA one hour after each dose of medication and as needed.
Or LORazepam (ATIVAN) tablet 2 mgJump to med 2 mg, Oral, EVERY 1 HOUR PRN (WITHDRAWAL), Starting on 05/08/23 at 1513, Until Discontinued, For alcohol withdrawal.
For CIWA score 11 to 15. Reassess CIWA one hour after each dose of medication and as needed.
Or LORazepam (ATIVAN) injection 2 mgJump to med 2 mg, IntraVENous, EVERY 1 HOUR PRN (WITHDRAWAL), Starting on 05/08/23 at 1513, Until Discontinued, Withdrawal, For alcohol withdrawal.
For CIWA score 11 to 15. If both oral and intravenous CIWA medications ordered, use intravenous if unable to tolerate oral equivalent. Reassess CIWA one hour after each dose of medication and as needed.
Or LORazepam (ATIVAN) tablet 3 mgJump to med 3 mg, Oral, EVERY 1 HOUR PRN (WITHDRAWAL), Starting on 05/08/23 at 1513, Until Discontinued, For alcohol withdrawal.
For CIWA score 16 to 20. Reassess CIWA one hour after each dose of medication and as needed.
Or LORazepam (ATIVAN) injection 3 mgJump to med 3 mg, IntraVENous, EVERY 1 HOUR PRN (WITHDRAWAL), Starting on 05/08/23 at 1513, Until Discontinued, Withdrawal, For alcohol withdrawal.
For CIWA score 16 to 20. If both oral and intravenous CIWA medications ordered, use intravenous if unable to tolerate oral equivalent. Reassess CIWA one hour after each dose of medication and as needed.
Or LORazepam (ATIVAN) tablet 4 mgJump to med 4 mg, Oral, EVERY 1 HOUR PRN (WITHDRAWAL), Starting on 05/08/23 at 1513, Until Discontinued, For alcohol withdrawal.
For CIWA score greater than 20. Reassess CIWA one hour after each dose of medication and as needed.
Or LORazepam (ATIVAN) injection 4 mgJump to med 4 mg, IntraVENous, EVERY 1 HOUR PRN (WITHDRAWAL), Starting on 05/08/23 at 1513, Until Discontinued, Withdrawal, For alcohol withdrawal.
For CIWA score greater than 20. If both oral and intravenous CIWA medications ordered, use intravenous if unable to tolerate oral equivalent. Reassess CIWA one hour after each dose of medication and as needed.
Scheduled Medication Order 05/15/2023 05/16/2023 05/17/2023 LORazepam (ATIVAN) injection 1 mg 1 mg, IntraVENous, ONCE, 1 dose, On Wed05/17/23 at 0100, Immediately prior to intravenous use, lorazepam Injection must be diluted with at least an equal volume of compatible solution (NS or D5W). 0100 (Due) sodium chloride 0.9 % bolus 1,000 mL 1,000 mL (9.26 mL/kg), IntraVENous, at 1,000 mL/hr, Administer over 1 Hours, ONCE, On Wed05/17/23 at 0100, For 1 dose 0100 (Due) Scheduled Medication Order 06/03/2023 06/04/2023 06/05/2023 sodium chloride 0.9 % bolus 1,000 mL (COMPLETED) 1,000 mL (9.26 mL/kg), IntraVENous, at 2,000 mL/hr, Administer over 30 Minutes, ONCE, On Wed06/05/23 at 1145, For 1 dose 1242 (New Bag - Prov ider: Mariana King RN)1641 (Stopped - Provider: Martin Farias RN) Scheduled Medication Order 06/27/2023 06/28/2023 06/29/2023 diphenhydrAMINE (BENADRYL) injection 25 mg 25 mg, IntraVENous, ONCE, 1 dose, On Wed06/29/23 at 0230, IV Push at rate not to exceed 25 mg/min. 0345 (Not Given - Provider: Kinza Ch RN - Reason: Patient/family refused) famotidine (PEPCID) 20 mg in sodium chloride (PF) 0.9 % 10 mL injection (COMPLETED) 20 mg, IntraVENous, ONCE, 1 dose, On Wed06/28/23 at 2030, IV Push over minimum of 2 minutes - Dilute with 10 mL NS 2228 (Given - Provider: Meliton Recio, JASVIR) LORazepam (ATIVAN) injection 1 mg 1 mg, IntraVENous, ONCE, 1 dose, On Wed06/28/23 at 2130, Immediately prior to intravenous use, lorazepam Injection must be diluted with at least an equal volume of compatible solution (NS or D5W). 2147 (Held - Provider: Meliton Recio RN - Reason: Other - Comment: charted under another medication entry within the mar) LORazepam (ATIVAN) injection 1 mg 1 mg, IntraVENous, ONCE, 1 dose, On Wed06/29/23 at 0415, Immediately prior to intravenous use, lorazepam Injection must be diluted with at least an equal volume of compatible solution (NS or D5W). 0415 (Due) LORazepam (ATIVAN) injection 2 mg (COMPLETED) 2 mg, IntraVENous, ONCE, 1 dose, On Wed06/29/23 at 0645, Immediately prior to intravenous use, lorazepam Injection must be diluted with at least an equal volume of compatible solution (NS or D5W). 0649 (Given - Provid er: Estephania Garza RN) nicotine (NICODERM CQ) 21 MG/24HR 1 patch 1 patch, TransDERmal, Administer over 24 Hours, ONCE, On Wed06/29/23 at 0330, For 1 dose, Apply new patch to nonhairy, clean, dry skin on the upper body or upper outer arm. Rotate patch sites. Notify pharmacy if patient or provider prefers patch to be removed at bedtime and replaced in the morning. Hazardous Medication -- Refer to facility policy for handling and disposal. 0401 (Patch Applied - Provider: Karli Dia RN) ondansetron (ZOFRAN) injection 4 mg (COMPLETED) 4 mg, IntraVENous, ONCE, 1 dose, On Wed06/28/23 at 2030 2229 (Given - Provider: Meliton Recio, JASVIR) PHENobarbital (LUMINAL) injection 130 mg (COMPLETED) 130 mg, IntraVENous, ONCE, 1 dose, On Wed06/29/23 at 0045 0045 (Given - Provid er: Kinza Ch RN) prochlorperazine (COMPAZINE) injection 10 mg 10 mg, IntraVENous, ONCE, 1 dose, On Wed06/29/23 at 0230, If administering IV push, administer at a maximum rate of 5 mg/minute. 0345 (Not Given - Provider: Kinza Ch RN - Reason: Patient/family refused) sodium chloride 0.9 % bolus 1,000 mL (COMPLETED) 1,000 mL (9.59 mL/kg), IntraVENous, at 495.9 mL/hr, Administer over 121 Minutes, ONCE, On Wed06/28/23 at 2030, For 1 dose 2226 (New Bag - Provider: Meliton Recio RN) 0313 (Stopped - Provider: Kinza Ch RN) sodium chloride flush 0.9 % injection 5-40 mL 5-40 mL, IntraVENous, EVERY 12 HOURS SCHEDULED (2 times per day), First dose on Wed06/28/23 at 2100, Until Discontinued, For Line Patency: Peripheral IV = 5 mL; Midline or Central Line = 10 mL/lumen. If following IV push medication, administer flush at same rate as the IV push. Flush volume is determined by type of infusion therapy being given. For non-viscous solutions use: Peripheral IV = 5 mL Midline or Central Line = 10 mL/lumen For viscous solutions (i.e. blood components, parenteral nutrition, contrast media, or after obtaining blood sample) use: Peripheral IV = 10 mL Midline or Central Line = 20 mL/lumen 2232 (Given - Provider: Meliton Recio, JASVIR) 0900 (Due)2100 (Due) thiamine tablet 100 mg (COMPLETED) 100 mg, Oral, ONCE, 1 dose, On Wed06/28/23 at 2030 223 (Given - Provider: Meliton Recio, JASVIR) PRN Medication Order 06/27/2023 06/28/2023 06/29/2023 0.9 % sodium chloride infusion IntraVENous, at 5-250 mL/hr, PRN, if patient receiving piggyback infusions and maintenance fluids are not ordered OR KVO fluids to protect IV site / prevent frequent line interruptions/ long duration, Starting on Wed06/28/23 at 2022, For piggyback infusion, administer at same rate as piggyback for a total of 25 mL. Enter 25 mL into dose field and piggyback rate into rate field of order. If piggyback is infusing at a rate less than 100 mL/hr, enter 25 mL into dose field and 100 mL/hr into rate field of order. For KVO fluids, enter rate of 20 mL/hr or less into rate field of order. iopamidol (ISOVUE-370) 76 % injection 75 mL (COMPLETED) 75 mL, IntraVENous, IMG ONCE PRN, 1 dose, Starting on Wed06/28/23 at 2149, Until Wed06/28/23 at 220, Other 2200 (Given - Provider: Yenifer Silverman) LORazepam (ATIVAN) injection 1 mg(Linked Group 1) 1 mg, IntraVENous, EVERY 1 HOUR PRN (WITHDRAWAL), Starting on Wed06/28/23 at 2022, Until Discontinued, Withdrawal, For alcohol withdrawal., For CIWA score 8 to 10. If both oral and intravenous CIWA medications ordered, use intravenous if unable to tolerate oral equivalent. Reassess CIWA one hour after each dose of medication and as needed. 2032 (See Alternative - Provider: Meliton Recio RN)2128 (Given - Provider: Meliton Recio RN)2233 (See Alternative - Provider: Meliton Recio RN)2334 (See Alternative - Provider: Meliton Recio RN) 004 (See Alternative - Provider: Kinza Ch RN)0206 (Given - Provider: Kinza Ch RN)0310 (See Alternative - Provider: Kinza Ch RN)0357 (See Alternative - Provider: Karli Dia RN) LORazepam (ATIVAN) injection 2 mg(Linked Group 1) 2 mg, IntraVENous, EVERY 1 HOUR PRN (WITHDRAWAL), Starting on Wed06/28/23 at 2022, Until Discontinued, Withdrawal, For alcohol withdrawal., For CIWA score 11 to 15. If both oral and intravenous CIWA medications ordered, use intravenous if unable to tolerate oral equivalent. Reassess CIWA one hour after each dose of medication and as needed. 2032 (Given - Provider: Meliton Recio RN)2128 (See Alternative - Provider: Meliton Recio RN)2233 (Given - Provider: Meliton Recio RN)2334 (Given - Provider: Meliton Recio RN) 0045 (Given - Provider: Kinza Ch RN)0206 (See Alternative - Provider: Kinza Ch RN)0310 (Given - Provider: Kinza Ch RN)0357 (Given - Provider: Karli Dia RN - Comment: +nausea) LORazepam (ATIVAN) tablet 1 mg(Linked Group 1) 1 mg, Oral, EVERY 1 HOUR PRN (WITHDRAWAL), Starting on Wed06/28/23 at 2022, Until Discontinued, For alcohol withdrawal., For CIWA score 8 to 10. Reassess CIWA one hour after each dose of medication and as needed. 2032 (See Alternative - Provider: Meliton Recio RN)2128 (See Alternative - Provider: Meliton Recio RN)2233 (See Alternative - Provider: Meliton Recio RN)2334 (See Alternative - Provider: Meliton Recio RN) 0045 (See Alternative - Provider: Kinza Ch RN)0206 (See Alternative - Provider: Kinza Ch RN)0310 (See Alternative - Provider: Kinza Ch RN)0357 (See Alternative - Provider: Karli Dia, JASVIR) LORazepam (ATIVAN) tablet 2 mg(Linked Group 1) 2 mg, Oral, EVERY 1 HOUR PRN (WITHDRAWAL), Starting on Wed06/28/23 at 2022, Until Discontinued, For alcohol withdrawal., For CIWA score 11 to 15. Reassess CIWA one hour after each dose of medication and as needed. 2032 (See Alternative - Provider: Meliton Recio RN)2128 (See Alternative - Provider: Meliton Recio RN)2233 (See Alternative - Provider: Meliton Recio RN)2334 (See Alternative - Provider: Meliton Recio RN) 0045 (See Alternative - Provider: Kinza Ch RN)0206 (See Alternative - Provider: Kinza Ch RN)0310 (See Alternative - Provider: Kinza Ch, JASVIR)0357 (See Alternative - Provider: Karli Dia, JASVIR) sodium chloride flush 0.9 % injection 5-40 mL 5-40 mL, IntraVENous, PRN, Starting on Wed06/28/23 at 2022, Until Discontinued, Line Care, After every IV line use, For Line Patency: Peripheral IV = 5 mL; Midline or Central Line = 10 mL/lumen. If following IV push medication, administer flush at same rate as the IV push. Flush volume is determined by type of infusion therapy being given. For non-viscous solutions use: Peripheral IV = 5 mL Midline or Central Line = 10 mL/lumen For viscous solutions (i.e. blood components, parenteral nutrition, contrast media, or after obtaining blood sample) use: Peripheral IV = 10 mL Midline or Central Line = 20 mL/lumen Linked Groups Order Group 1: LORazepam (ATIVAN) tablet 1 mgJump to med 1 mg, Oral, EVERY 1 HOUR PRN (WITHDRAWAL), Starting on Wed06/28/23 at 2022, Until Discontinued, For alcohol withdrawal.
For CIWA score 8 to 10. Reassess CIWA one hour after each dose of medication and as needed.
Or LORazepam (ATIVAN) injection 1 mgJump to med 1 mg, IntraVENous, EVERY 1 HOUR PRN (WITHDRAWAL), Starting on Wed06/28/23 at 2022, Until Discontinued, Withdrawal, For alcohol withdrawal.
For CIWA score 8 to 10. If both oral and intravenous CIWA medications ordered, use intravenous if unable to tolerate oral equivalent. Reassess CIWA one hour after each dose of medication and as needed.
Or LORazepam (ATIVAN) tablet 2 mgJump to med 2 mg, Oral, EVERY 1 HOUR PRN (WITHDRAWAL), Starting on Wed06/28/23 at 2022, Until Discontinued, For alcohol withdrawal.
For CIWA score 11 to 15. Reassess CIWA one hour after each dose of medication and as needed.
Or LORazepam (ATIVAN) injection 2 mgJump to med 2 mg, IntraVENous, EVERY 1 HOUR PRN (WITHDRAWAL), Starting on Wed06/28/23 at 2022, Until Discontinued, Withdrawal, For alcohol withdrawal.
For CIWA score 11 to 15. If both oral and intravenous CIWA medications ordered, use intravenous if unable to tolerate oral equivalent. Reassess CIWA one hour after each dose of medication and as needed.
Scheduled Medication Order 06/29/2023 06/30/2023 07/01/2023 busPIRone (BUSPAR) tablet 5 mg (COMPLETED) 5 mg, Oral, ONCE, 1 dose, On Zahra[place] 07/01/23 at 0245 0251 (Given - Provid er: Justine Sanchez RN) divalproex (DEPAKOTE) DR tablet 500 mg (COMPLETED) 500 mg, Oral, ONCE, 1 dose, On Zahraa 07/01/23 at 0245, Do not crush or break. 0251 (Given - Provid er: Justine Sanchez RN) LORazepam (ATIVAN) injection 1 mg (COMPLETED) 1 mg, IntraVENous, ONCE, 1 dose, On Zahra[place] 07/01/23 at 0145, Immediately prior to intravenous use, lorazepam Injection must be diluted with at least an equal volume of compatible solution (NS or D5W). 0138 (Given - Provid er: Justine Sanchez RN) LORazepam (ATIVAN) injection 1 mg (COMPLETED) 1 mg, IntraVENous, ONCE, 1 dose, On Zahraa 07/01/23 at 0300, Immediately prior to intravenous use, lorazepam Injection must be diluted with at least an equal volume of compatible solution (NS or D5W). 0257 (Given - Provid er: Justine Sanchez RN) LORazepam (ATIVAN) injection 2 mg (COMPLETED) 2 mg, IntraVENous, ONCE, 1 dose, On Zahraa 07/01/23 at 0330, Immediately prior to intravenous use, lorazepam Injection must be diluted with at least an equal volume of compatible solution (NS or D5W). 0331 (Given - Provid er: Justine Sanchez RN) mirtazapine (REMERON) tablet 45 mg (COMPLETED) 45 mg, Oral, ONCE, 1 dose, On Zahraa 07/01/23 at 0245 0250 (Given - Provid er: Jusitne Sanchez RN) Scheduled Medication Order 07/05/2023 07/06/2023 07/07/2023 chlordiazePOXIDE (LIBRIUM) capsule 5 mg (COMPLETED) 5 mg, Oral, ONCE, 1 dose, On Wed07/07/23 at 0400 0419 (Given - Provid er: Esteban Villafuerte RN) diphenhydrAMINE (BENADRYL) injection 25 mg (COMPLETED) 25 mg, IntraVENous, ONCE, 1 dose, On Wed07/07/23 at 0000, IV Push at rate not to exceed 25 mg/min. 2348 (Given - Provider: Isabelle Correa RN) sodium chloride 0.9 % bolus 500 mL (COMPLETED) 500 mL, IntraVENous, at 967.7 mL/hr, Administer over 31 Minutes, ONCE, On Wed07/07/23 at 0815, For 1 dose, May administer over 30 minutes if well tolerated. 0816 (New Bag - Provider: Julia Cooper RN)0934 (Stopped - Provider: Julia Cooper RN) sterile water injection 2 mL (COMPLETED) 2 mL, Injection, ONCE, 1 dose, On Wed07/07/23 at 0000 2348 (Given - Provider: Isabelle Correa RN) ziprasidone (GEODON) injection 10 mg (COMPLETED) 10 mg, IntraMUSCular, ONCE, 1 dose, On Wed07/07/23 at 0000, Each vial should be reconstituted with 1.2 mL SWFI. Shake vigorously; will form a pale, pink solution containing 20 mg/mL ziprasidone. 2348 (Given - Provider: Isabelle Correa RN) Scheduled Medication Order 07/10/2023 07/11/2023 07/12/2023 chlordiazePOXIDE (LIBRIUM) capsule 5 mg 5 mg, Oral, ONCE, 1 dose, On Wed07/12/23 at 0600 0600 (Due) ziprasidone (GEODON) 10 mg in sterile water 0.5 mL injection 10 mg, IntraMUSCular, ONCE, On Wed07/12/23 at 0200, For 1 dose, Reconstitute 20 mg vial with 1.2 mL sterile water for injection for final concentration of 20 mg/mL. 0200 (Due) Scheduled Medication Order 07/10/2023 07/11/2023 07/12/2023 aluminum & magnesium hydroxide-simethicone (MAALOX) 30 mL, lidocaine viscous hcl (XYLOCAINE) 5 mL (GI COCKTAIL) (COMPLETED) Oral, ONCE, On Wed07/12/23 at 0915, For 1 dose, Take 5 mL from lidocaine viscous 2% cup and mix with 30 mL of maalox and then administer. 0943 (Given - Provid er: Lauren Underwood RN) famotidine (PEPCID) 20 mg in sodium chloride (PF) 0.9 % 10 mL injection (COMPLETED) 20 mg, IntraVENous, ONCE, 1 dose, On Wed07/12/23 at 0930, IV Push over minimum of 2 minutes - Dilute with 10 mL NS 0956 (Given - Provid er: Lauren Underwood RN) LORazepam (ATIVAN) tablet 1 mg (COMPLETED) 1 mg, Oral, ONCE, 1 dose, On Wed07/12/23 at 1000 0955 (Given - Provid er: Lauren Underwood RN) sodium chloride 0.9 % bolus 1,000 mL (COMPLETED) 1,000 mL (9.59 mL/kg), IntraVENous, at 983.6 mL/hr, Administer over 61 Minutes, ONCE, On Wed07/12/23 at 0915, For 1 dose 0957 (New Bag - Prov ider: Lauren Underwood RN)1109 (Stopped - Provider: Lauren Underwood RN) Care Teams (unrecognized sec tion and content) [facility] [employer] Relationship Specialty Start Date End Date No, Physician [facility] PCP - General 03/30/21 [employer] Relationship Specialty Start Date End Date Physician, No Pcp PCP - General 04/04/21 [employer] Relationship Specialty Start Date End Date Physician, No Pcp PCP - General 04/04/21 [employer] Relationship Specialty Start Date End Date Physician, No Pcp PCP - General 04/04/21 [employer] Relationship Specialty Start Date End Date Physician, No Pcp PCP - General 04/04/21 [employer] Relationship Specialty Start Date End Date System, Provider Not In PCP - General Other 05/02/22 [employer] Relationship Specialty Start Date End Date System, Provider Not In PCP - General Other 05/02/22 [employer] Relationship Specialty Start Date End Date System, Provider Not In PCP - General Other 05/02/22 [employer] Relationship Specialty Start Date End Date Physician, No Pcp PCP - General 04/04/21 [employer] Relationship Specialty Start Date End Date Physician, No Pcp PCP - General 04/04/21 [employer] Relationship Specialty Start Date End Date Physician, No Pcp PCP - General 04/04/21 [employer] Relationship Specialty Start Date End Date System, Provider Not In PCP - General Other 05/02/22 [employer] Relationship Specialty Start Date End Date Self Referred, . [place] PCP - General 07/14/22 [employer] Relationship Specialty Start Date End Date No Family, Provider [id number] PCP - General 09/02/22 [employer] Relationship Specialty Start [place] [address] [phone] (Work) PCP - General 09/12/22 [employer] Relationship Specialty Start Date [place] [address] [phone] (Work) PCP - General 09/12/22 [employer] Relationship Specialty Start Date End Date Nonstaff, [place] [address] [phone] (Work) PCP - General 09/12/22 [employer] Relationship Specialty Start Date End Date No Family, Provider [id number] PCP - General 10/31/22 [employer] Relationship Specialty Start Date End Date No Family, Provider [id number] PCP - General 10/31/22 [employer] Relationship Specialty Start Date End Date No Family, Provider [id number] PCP - General 10/31/22 [employer] Relationship Specialty Start Date End Date Nonstaff, [place] [address] [phone] (Work) PCP - General 11/01/22 [employer] Relationship Specialty Start Date End Date Nonstaff, [place] [address] [phone] (Work) PCP - General 11/01/22 [employer] Relationship Specialty Start Date End Date Nonstaff, [place] [address] [phone] (Work) PCP - General 11/01/22 [employer] Relationship Specialty Start Date End Date Nonstaff, [place] [address] [phone] (Work) PCP - General 11/01/22 [employer] Relationship Specialty Start Date End Date Nonstaff, [place] [address] [phone] (Work) PCP - General 11/01/22 [employer] Relationship Specialty Start Date End Date Nonstaff, [place] [address] [phone] (Work) PCP - General 11/01/22 [employer] Relationship Specialty Start Date End Date Nonstaff, [place] [address] [phone] (Work) PCP - General 11/01/22 [employer] Relationship Specialty Start Date End Date Nonstaff, [place] [address] [phone] (Work) PCP - General 11/01/22 (unrecognized sect ion and content) No Status Records FoundNo Status Records FoundNo Status Records FoundNo Status Records FoundNo Status Records FoundNo Status Records FoundNo Status Records FoundNo Status Records FoundNo Status Records FoundNo Status Records FoundNo Status Records FoundNo Status Records FoundNo Status Records FoundNo Status Records FoundNo Status Records FoundNo Status Records FoundNo Status Records FoundNo Status Records FoundNo Status Records FoundNo Status Records FoundNo Status Records FoundNo Status Records FoundNo Status Records FoundNo Status Records Found INFORMATION SOURCE (unrecogn ized section and content) DATE CREATED AUTHOR 04/10/2021 [facility] DATE CREATED AUTHOR AUTHOR'S ORGANIZ ATION 05/04/2021 [facility] DATE CREATED AUTHOR AUTHOR'S ORGANIZ ATION 08/03/2021 [facility] DATE CREATED AUTHOR AUTHOR'S ORGANIZ ATION 08/29/2021 [facility] DATE CREATED AUTHOR AUTHOR'S ORGANIZ ATION 09/22/2021 [facility] DATE CREATED AUTHOR AUTHOR'S ORGANIZ ATION 12/04/2021 [facility] DATE CREATED AUTHOR AUTHOR'S ORGANIZ ATION 05/14/2022 [facility] CREATED AUTHOR AUTHOR'S ORGANIZ ATION 05/21/2022 [facility] DATE CREATED AUTHOR AUTHOR'S ORGANIZ ATION 05/22/2022 [facility] CREATED AUTHOR AUTHOR'S ORGANIZ ATION 05/29/2022 [facility] DATE CREATED AUTHOR AUTHOR'S ORGANIZ ATION 07/19/2022 [facility] DATE CREATED AUTHOR AUTHOR'S ORGANIZ ATION 10/17/2022 [facility] DATE CREATED AUTHOR AUTHOR'S ORGANIZ ATION 11/19/2022 [facility] DATE CREATED AUTHOR AUTHOR'S ORGANIZ ATION 12/31/2022 [facility] DATE CREATED AUTHOR AUTHOR'S ORGANIZ ATION 03/02/2023 [facility] DATE CREATED AUTHOR AUTHOR'S ORGANIZ ATION 03/07/2023 [facility] CREATED AUTHOR AUTHOR'S ORGANIZ ATION 05/02/2023 [facility] [place] DATE CREATED AUTHOR AUTHOR'S ORGANIZ ATION 05/08/2023 [facility] DATE CREATED AUTHOR AUTHOR'S ORGANIZ ATION 05/12/2023 [facility] DATE CREATED AUTHOR AUTHOR'S ORGANIZ ATION 06/06/[address] [facility] DATE CREATED AUTHOR AUTHOR'S ORGANIZ ATION 07/14/2023 [facility] DATE CREATED AUTHOR AUTHOR'S ORGANIZ ATION 07/18/2023 [facility] DATE CREATED AUTHOR AUTHOR'S ORGANIZ ATION 07/30/2023 [facility] DATE CREATED AUTHOR AUTHOR'S ORGANIZ ATION 08/28/2023 [facility] Reason for Visit (unrecogniz ed section and content) Reason Comments Suicidal Specialty Diagnoses / Procedures Referred By Contac t Referred To Contact Referral ID Status Reason Start Date Expiration Date Visits Re quested Visits Authorized [id number] 1 1 Reason Comments Suicidal Laceration Specialty Diagnoses / Procedures Referred By Contac t Referred To Contact Lety Simpson MD [address] [place] [address] [facility] [address] [place] [address] Referral ID Status Reason Start Date Expiration Date Visits Re quested Visits Authorized [id number] 1 1 Reason Comments Alcohol intoxication Pt arrives via medi c for alcohol intoxication. Pt was drinking at a bar when he asked the bartended to call 911 so he could be seen at the hospital. Pt ambulatory upon arrival. Pt asking for help to get treatment. Pt reports nausea and a headache Reason Comments Alcohol Intoxication Pt picked up from [place] [place] station. States he felt upset and had employees call 911. States he drank very little alcohol. Denies any medical complaints. Reason Comments Vomiting Generalized Body Aches Reason Comments Suicidal Pt has been waiting in lobby for hours after discharge from ED trying to get a hold of recovery works. Pt states he called [employer] because he is starting tp have negative thoughts about hurting himself Reason Comments Alcohol Intoxication Patient brought in by medics after being found at a gas station by police. Patient states he is depressed with a severe drinking problem, and has been drinking all day. Patient initially told medics he was having suicidal thoughts, but is denying those during triage. Reason Comments Altered mental status Pt arrives via EMS c/o AMS. Was picked up by EMS at a gas station asking for help. Admits to drinking this evening, answers orientation questions appropriately, uncooperative with vital signs. Reason Comments Addiction problem Pt arrives with c/o relapse. Pt states he has taken a a bunch of meth and cocaine . Denies chest pain. Pt also reports recent alcohol use, denies use every day. Reports numb flashes in bilateral upper and lower extremities. Reason Comments Other Patient returns by E [facility] from [facility] after being lifted there, the occupancy was full. Patient reports cocaine/ETOH use this evening. Reason Comments Addiction Problem Per medics pt called to get assistance with drug addiction and alcoholism. Pt reports last having alcohol and crack several hours ago and had been drinking all day the day before. Reason Comments Cast Removal Med Refill Reason Comments Mental Health Problems Reason Comments Alcohol Intoxication Reason Comments Alcohol intoxication Pt wants help for a lcoholism Dizziness Reason Comments Intoxication Reason Comments Drug Problem Reason Comments Abdominal Pain Reason Comments Alcohol Problem Reason Comments Alcohol Problem Reason Comments Suicidal Ideations Reason Comments Mental Health Problem Abdominal Pain Back Pain Chest Pain Reason Comments Suicidal Ideations Intoxication Specialty Diagnoses / Procedures Referred By Contac t Referred To Contact Diagnoses Alcohol abuse with withdrawal (HC CODE) Referral ID Status Reason Start Date Expiration Date Visits Re quested Visits Authorized [id number] 1 1 Reason Comments Intoxication Fall Reason Comments Medical Problem Reason Comments Intoxication Reason Comments Intoxication Suicidal Ideations Specialty Diagnoses / Procedures Referred By Contac t Referred To Contact Diagnoses Alcohol intoxication, uncomplicated (HC CODE) Referral ID Status Reason Start Date Expiration Date Visits Re quested Visits Authorized [id number] 1 1 Reason Comments Alcohol Problem Stated that he has h ad 6 pints of alcohol today and that is a daily thing. Patient stated that I am dying of alcoholism Reason Comments Alcohol Problem Intoxicated at this time, D/C from ICU 3 * ago, states wants help to quit drinking, states he also used crack tonight Reason Comments Alcohol Problem Patient would like h elp. Patient states that he was just here and he refused help.Patient states that he is concerned he could drink himself to . Reason Comments Alcohol Problem Pt came in stating h e needs de-toxing for alcohol withdrawal. Pt drank 5th of fireball and vodka. Reason Comments Fall Reports mechanical f all and hit head on trash bin. Reason Comments Fall Patient intoxicated and fell and hit head on brick pillar outside of a restaurant . Abrasion to L forehead Reason Comments Fall Went into store and yelled to call 911 and fell to floor. EMS respond to patient on floor. Patient A/O x4 in triage Reason Comments Alcohol Problem Pt walked up to PD a nd stated heart rate was high. Pt presented to ER stating he wants help for his alcohol. Pt denies SI. Pt seen earlier, but left AMA Reason Comments Alcohol Intoxication Admits to drinking ETOH, drank approx. 1hour ago. Reason Onset Date Comments Psychiatric Problem 07/17/2023 Ordered Prescriptions (unrec ognized section and content) Prescription Sig Dispensed Refills Start Date End Da te ondansetron ODT (ZOFRAN-ODT) 4 mg disintegrating tablet Dissolve 1 tablet (4 mg total) on top of the tongue every 8 (eight) hours if needed for vomiting for up to 10 days. 20 each 0 12/03/2021 12/13/2021 Prescription Sig Dispensed Refills Start Date End Da te venlafaxine XR (Effexor XR) 75 mg 24 hr capsule Take 3 capsules (225 mg total) by mouth 1 (one) time each day. Do not crush or chew. 90 each 0 05/19/2022 06/18/2022 Prescription Sig Dispensed Refills Start Date End Da te nicotine (NICODERM CQ) 14 mg/[address] 1 patch on the skin 1 (one) time each day at the same time. 30 each 0 05/28/2022 06/27/2022 melatonin 5 mg tabletIndications:Prima ry insomnia Take 1-2 tablets (5-10 mg total) by mouth at bedtime. 60 tablet 2 05/28/2022 08/26/2022 balanced salts (Eye Stream) solution ophthalmic solutionIndications:Sea jaclyn allergies Administer 2 drops into both eyes 1 (one) time for 1 dose. 1 each 0 05/28/2022 05/28/2022 fluticasone propionate (FLONASE) 50 mcg/actuation nasal sprayIndications:Season al allergies Administer 2 sprays into each nostril 1 (one) time each day. Shake gently. Before first use, prime pump. After use, clean tip and replace cap. 16 g 0 05/28/2022 05/28/2023 loratadine (CLARITIN) 10 mg tabletIndications:Seaso nal allergies Take 1 tablet (10 mg total) by mouth 1 (one) time each day. 30 each 0 05/28/2022 06/27/2022 Prescription Sig Dispensed Refills Start Date End Da te multivitamin tablet Take 1 tablet by mouth 1 (one) time each day. 30 tablet 0 05/28/2022 06/27/2022 traZODone (DESYREL) 50 mg tablet Take 1 tablet (50 mg total) by mouth at bedtime. at bedtime 30 each 1 05/28/2022 06/27/2022 Source Comments (unrecognize d section and content) In the event this informatio n is protected by the Federal Confidentiality of Alcohol and Drug Abuse Patient Records regulations: The Federal rules restrict any use of the information to criminally investigate or prosecute any alcohol or drug abuse patient.[facility] FOR RECORDS PERTAINING TO PATIENTS WHO ARE OR HAVE BEEN ENROLLED IN A CHEMICAL DEPENDENCY/SUBSTANCEABUSE PROGRAM, SOME INFORMATION MAY BE OMITTED. This clinical summary was aggregated from multiple sources. Caution should be exercised in using it in the provision of clinical care. This summary normalizes information from multiple sources, and as a consequence, information in this document may materially change the coding, format and clinical context of patient data. In addition, data may be omitted in some cases. CLINICAL DECISIONS SHOULD BE BASED ON THE PRIMARY CLINICAL RECORDS. [employer] [facility] provides no warranty or guarantee of the accuracy or completeness of information in this document.
--- NOTE | 2023-09-18 00:19 | XR_ITS ---
The [address] [address] Patient Name: MCKINLEY ROBERTSON MRN: [id number] date: 1985 Sex: M Assigned Patient Location: ER Current Patient Location: ER Accession/Order Number: [id number] Exam Date: 09/18/2023 00:36 Report Date: 09/18/2023 01:00 At the request of: LANDON NIEVES Procedure: XR chest 1V XR chest 1V 09/17/2023 11:36 PM CDT: History: chest pain Comparison: None. Technique: 1 view chest Findings: The cardiomediastinal silhouette is normal. The lungs are clear without infiltrate, effusion, or pneumothorax. The bones are intact. XR/XR chest 1V Impression: No acute cardiopulmonary process. Electronically authenticated by: UMANG DAVENPORT Date: 09/18/2023 01:00
--- NOTE | 2023-09-18 00:19 | ECG_ITS ---
The [facility] Test Date: 2023-09-18 Pat Name: MCKINLEY ROBERTSON Department: Room: - Gender: Male Normalizer: : 1985 Requested By: [id number] Order Number: [id number] Reading MD: CARITO ALLEN Measurements Intervals [place] Rate: 58 P: 47 NC: 166 QRS: 56 QRSD: 98 T: 37 QT: 432 QTc: 429 Interpretive Statements 1100 Sinus rhythm 9110 normal ECG Compared to ECG 09/16/2023 00:18:46 No significant changes Electronically Signed On 09-18-2023 12:15:19 EDT by CARITO ALLEN
[2023-09-18 00:32] VITALS: BP 117/77; PULSE 58; TEMP 36.7; O2SAT 94
[2023-09-18] MEDS: HYDROXYZINE PAMOATE 25 MG CAPSULE 50 MG PO (00:44)
[2023-09-18 00:47] VITALS: PULSE 63
[2023-09-18 01:10] LABS: Basophils Percent Auto 0.6 % (0.2-2.0); Eosinophils Absolute Auto 0.1 10^3/uL (0.0-0.7); Eosinophils Percent Auto 1.8 % (0.9-7.0); Hematocrit 44.6 % (42.0-54.0); Hemoglobin 15.6 g/dL (14.0-18.0); Immature Granulocytes Abs Auto 0.02 10^3/uL (0.00-0.03); Immature Granulocytes Pct Auto 0.3 % (0.0-0.5); Mean Corpuscular Hemoglobin 29.1 pg (25.9-34.0); Mean Corpuscular Volume 83.2 fL (80.0-94.0); Mean Platelet Volume 8.3 fL (9.5-13.5); Monocytes Absolute Auto 0.6 10^3/uL (0.3-0.8); Neutrophils Absolute Auto 3.5 10^3/uL (1.4-6.5); Neutrophils Percent Auto 48.3 % (43.0-75.0); Platelet Count 321 10^3/uL (150-450); Red Blood Count 5.36 10^6/uL (4.70-6.10); Red Cell Distribution Width 13.2 % (11.0-15.0); White Blood Count 7.2 10^3/uL (4.0-11.0)
--- NOTE | 2023-09-18 01:16 | PC.NURSE ---
Patient comes into ED by EMS. He had only told police his name, not EMS and he would not tell me his name. When PD arrived and told registration his name, he was immediately recognized as being the patient that was boarding in this ED last evening and this morning awaiting a ride to [facility] for alcohol addiction. This patient was supposed to be going to this facility in [place], but ended up walking out of the ED without telling anyone where he was going. Daniel initially denied being suicidal when I questioned him, then when I questioned him a second time, he admitted that he is suicidal and stated that he is always suicidal. He said that he had attempted suicide many times in the past and showed me scars on his arms where he had attempted to slit his wrists. He is heavily intoxicated, when I asked him how much he drank when he left here, he said enough to kill me He is cooperative and calm, although he is frustrated that he cannot have Ativan at this time. I informed him that we would need to give the Vistaril time to work, and if it didn't work after about an hour, I would let Dr. Meier know and request Ativan at that time.
[2023-09-18 01:26] LABS: Alanine Aminotransferase 175 U/L (16-63); Albumin Level 3.8 g/dL (3.4-5.0); Alkaline Phosphatase 136 U/L (46-116); Anion Gap 13.2; Aspartate Amino Transferase 51 U/L (15-37); BUN Creatinine Ratio 10.3; Bilirubin Total 0.4 mg/dL (0.2-1.0); Calcium 8.7 mg/dL (8.5-10.1); Carbon Dioxide 23.7 mmol/L (21.0-32.0); Chloride 104 mmol/L (98-107); Estimated GFR (African America >60 (>=60); Estimated GFR (Non-African Ame >60 (>=60); Globulin 3.9 g/dL; Glucose 120 mg/dL (74-106); Potassium 3.9 mmol/L (3.5-5.1); Sodium 137 mmol/L (136-145); Total Protein 7.7 g/dL (6.4-8.2)
[2023-09-18 01:32] LABS: Ethanol 212 mg/dL; Salicylate <2.8 mg/dL (<=19.9); Troponin I High Sensitivity <4.0 pg/mL (4.0-76.1)
[2023-09-18 01:33] LABS: Acetaminophen <2.0 ug/mL (10.0-30.0)
[2023-09-18 05:30] LABS: Amphetamine Screen Urine NEGATIVE (NEGATIVE); Barbiturates Screen Urine NEGATIVE (NEGATIVE); Benzodiazepines Screen Urine NEGATIVE (NEGATIVE); Buprenorphine Screen Urine NEGATIVE (NEGATIVE); Cannabinoid Screen Urine NEGATIVE (NEGATIVE); Cocaine Screen Urine NEGATIVE (NEGATIVE); Methadone Screen Urine NEGATIVE (NEGATIVE); Methamphetamines Screen Urine NEGATIVE (NEGATIVE); Opiate Screen Urine NEGATIVE (NEGATIVE); Oxycodone Screen Urine NEGATIVE (NEGATIVE); Phencyclidine Screen Urine NEGATIVE (NEGATIVE); Tricyclic Antidepressant Urine NEGATIVE (NEGATIVE)
[2023-09-18 07:00] VITALS: BP 136/66; O2SAT 97
[2023-09-18 07:12] LABS: Ethanol 81 mg/dL
[2023-09-18] MEDS: LORAZEPAM 0.5 MG TABLET PO ×2 (07:31→09:28)
[2023-09-18 09:29] VITALS: BP 126/80; O2SAT 98
[2023-09-18] MEDS: ACETAMINOPHEN 325 MG TABLET 650 MG PO (09:46)
[2023-09-18] MEDS: FLUOXETINE HCL 20 MG CAPSULE 40 MG PO (09:46)
== END 2023-09-18 11:02 | disposition home or self-care (01) ==
PROVIDERS: Emergency Provider Internal Medicine
DX: F10.129 Alcohol abuse with intoxication, unspecified (principal); Y90.7 Blood alcohol level of 200-239 mg/100 ml
CPT/HCPCS: 36415; 71045; 80053; 80179; 80307; 80320; 80329; 84484; 85025; 93005; 99285; Q0177